=== PATIENT | male | born 1945 | race Caucasian/White ===

== ENCOUNTER 2016-11-13 20:11 | Inpatient (IN) | payer OTHER, MEDICARE ==
[~2016-11-13] VITALS: Ht 167.6 cm; Wt 85.5 kg
[~2016-11-13 20:11] MED LIST: ACCUNEB 3 ML3 M1 INH; ALBUTEROL 3 ML3 ML INH; ALLOPURINOL100 M1 PO; APIX5T PO; ASPIR 8181 MG PO; AUGMENTIN 500M500 MG PO; AUGMENTIN 875875 MG PO; AZMACORT INH; COLCHICINE0.6 M2 PO; COLCHICINE0.6 M3 PO; COLCHICINE0.6 MG PO; COUMADIN5 M2 PO; ELIQUIS2.5 MG PO; FOLIC ACID1 M1 PO; HUMALOG100 U/ML SC; HUMALOG100 UNIT/2 SC; HYDRALAZINE10 MG PO; IMDUR60 MG PO; ISOSORBIDE MONO60 M1 PO; KEFLEX750 MG PO; LANTUS100 U/ML SC; LASIX40 MG PO; LEVEMIR 10100 UNITS/ SC; LOPRESSOR50 M1 PO; LOPRESSOR50 MG PO; MASON NATURAL2000 IU PO; MASON NATURAL325 MG PO; NOVAPLUS V0.09 MG/Ac INH; NOVOLOG100 U/ML SC; OMEPRAZOLE D/R20 MG PO; PREDNISONE 10MG10 M1 PO; PREDNISONE 10MG10 MG PO; PREDNISONE 20MG20 MG PO; PREDNISONE 5 MG5 MG PO; PREDNISONE20 M1 PO; PROVENTIL0.09 MG/A1 INH; ROCALTROL0.25 MCG PO; SIMVASTATIN20 MG PO; SODIUM POL15 GM/60 M PO; SYMBICORT 160/41 PUF INH; VIBRAMYCIN 100100 MG PO; ZAROXOLYN2.5 MG PO; ZITHROMAX Z-PA250 M1 PO; [UNRECOGNIZED DRUG - OTHER] INH
--- NOTE | 2016-11-13 20:20 | ED GI/GU/ABDOMINAL COMPLAINT ---
History of Present Illness General Chief Complaint: General Adult Stated Complaint: BLEEDING FROM RECTUM Source: patient Exam Limitations: no limitations Vital Signs & Intake/Output Vital Signs & Intake/Output Vital Signs Date Time Temp Pulse Resp B/P Pulse O2 O2 Flow FiO2 Ox Delivery Rate 11/13 2348 66 147/72 11/13 2313 98.6 59 18 194/77 98 Room Air 11/13 2248 60 18 169/73 96 Room Air 11/13 2205 67 149/67 11/130 163/73 11/13 2012 97.3 78 18 175/72 98 Room Air Allergies Coded Allergies: NO KNOWN ALLERGIES (10/04/16) Reconcile Medications Albuterol Sulfate (Proventil Hfa) 90 MCG HFA.AER.AD 1-2 PUFF INH Q4-6H PRN SHORTNESS OF BREATH (Reported) Albuterol Sulfate (Accuneb) 0.63 MG/3 ML VIAL.NEB 1 AMP INH TID PRN COPD ( Reported) Allopurinol 100 MG TABLET 1 TAB PO DAILY GOUT Aspirin (Ecotrin) 81 MG TABLET.DR 1 TAB PO DAILY HEART (Reported) Budesonide/Formoterol Fumara (Symbicort 160-4.5 Mcg Inhaler) 160 MCG/4.5 MCG PUF 2 PUF INH BID COPD (Reported) Colchicine 0.6 MG TABLET 1 TAB PO DAILY GOUT (Reported) Ferrous Sulfate 325 MG (65 MG IRON) TABLET 1 TAB PO BID SUPPLEMENT (Reported) Folic Acid 1 MG TABLET 1 MG PO DAILY SUPPLEMENT (Reported) Furosemide (Lasix) 40 MG TABLET 2 TAB PO DAILY HEART (Reported) HYDRALAZINE HCL (Hydralazine) 10 MG TABLET 1 TAB PO BID BP (Reported) Insulin Glargine, Recombinan (Lantus) 100 U/ML SALIMA 12 UNIT SC DAILY DIABETES (Reported) Insulin Lispro (Humalog) 100 UNIT/ML VIAL diabetes (Reported) Blood sugar Insulin dose < 80mg/dl No dose 80-150 mg/dl No dose 151-200mg/dl One unit 201-250mg/dl Two units 251-300mg/dl Three units 301-350mg/dl Four units 351-400mg/dl Six units Above 400mg/dl Eight units and call . Isosorbide Mononitrate (Imdur) [address] 1 TAB PO DAILY CAD (Reported) Metoprolol Tartrate (Lopressor) 50 MG TAB 1 TAB PO BID HEART (Reported) Omeprazole 20 MG CAPSULE.DR 1 CAP PO DAILY AC GI (Reported) Simvastatin (Zocor) 20 MG TAB 1 TAB PO 1700 CHOLESTEROL (Reported) Warfarin Sodium (Coumadin) 5 MG TABLET 1 TAB PO DAILY BLOOD THINNER (Reported ) please dose Coumadin as per INR. Triage Nurses Notes Reviewed? yes Onset: Gradual Duration: hour(s): Timing: recent history Quality/Severity: cramping Location: generalized abdomen Radiation: no radiation Activities at Onset: none Prior Abdominal Problems: none Modifying Factors: Worsens With: defecating. Associated Symptoms: gi bleed HPI: 71 yo gentleman h/o esrd on hemodialysis, on coumadin, presents with dark blood per rectum with clots. He notes that, "I feel the blood coming out of my back end." He is not dizzy. He does not have abdominal pain, chest pain, shortness of breath. He is otherwise well. Past History Travel History Traveled to [place] past 21 day No Medical History Any Pertinent Medical History? see below for history Neurological: NONE Cardiovascular: AFIB (paroxysmal), CAD, hypertension, hyperlipidemia, systolic CHF, PACEMAKER/DEFIBRILLATOR Respiratory: COPD, obstructive sleep apnea (not using CPAP), NON COMPLIANT W/ CPAP Gastrointestinal: GERD Hepatic: NONE Renal: chronic kidney disease Musculoskeletal: gout, CELLULITIS Psychiatric: NONE Endocrine: diabetes Blood Disorders: NONE Cancer(s): NONE LIMNOLOGIST/Reproductive: NONE History of MRSA: Yes History of VRE: No History of CDIFF: No Pneumonia Vaccine: 11/06/10 Surgical History Surgical History: PACEMAKER Psychosocial History Who do you live with Patient/Self Services at Home None What is your primary language Yakut Tobacco Use: Quit >30 days ago ETOH Use: denies use Illicit Drug Use: denies illicit drug use Family History Family History, If Any: MOTHER (Lung cancer). Hx Contributory? No Review of Systems Review of Systems Constitutional: Reports: no symptoms. EENTM: Reports: no symptoms. Respiratory: Reports: no symptoms. Cardiovascular: Reports: no symptoms. GI: Reports: no symptoms. Genitourinary: Reports: no symptoms. Musculoskeletal: Reports: no symptoms. Skin: Reports: no symptoms. Neurological/Psychological: Reports: no symptoms. Hematologic/Endocrine: Reports: no symptoms. Immunologic/Allergic: Reports: no symptoms. All Other Systems: Reviewed and Negative Physical Exam Physical Exam General Appearance: well developed/nourished, mild distress Head: atraumatic, normal appearance Eyes: Bilateral: normal appearance. Ears, Nose, Throat, Mouth: hearing grossly normal Neck: normal inspection, supple Respiratory: normal breath sounds Cardiovascular: regular rate/rhythm Gastrointestinal: normal bowel sounds, soft, non-tender, no organomegaly Rectal: juan diego clots from rectum Back: normal inspection Extremities: normal range of motion Neurologic/Psych: no motor/sensory deficits, awake, alert, oriented x 3 Skin: intact, normal color, warm/dry Core Measures ACS in differential dx? No Severe Sepsis Present: No Septic Shock Present: No Progress Differential Diagnosis: lower vs upper gi bleed Plan of Care: Orders Procedure Date/time Status Nothing by Mouth 11/14 B Active Pathway - chart 11/13 2335 Active Pathway - chart 11/13 2334 Active House Staff 11/13 2334 Active Patient Data 11/13 2334 Active Code Status 11/13 2334 Active Add-on Test (ER Only) 11/13 225 Active Patient Data 11/13 224 Active Saline Lock 11/13 2237 Active Misc Message 11/13 2237 Active ED Holding Orders 11/13 2237 Active Admit to inpatient 11/13 2237 Active Vital Signs 11/13 2237 Active Code Status 11/13 2237 Complete TROPONIN LEVEL 11/13 2122 Complete MAGNESIUM 11/13 2122 Complete Intake & Output 11/13 2110 Active EKG 11/13 2019 Active PARTIAL THROMBOPLASTIN TIME 11/13 2018 Complete PROTHROMBIN TIME 11/13 2018 Complete COMPREHENSIVE METABOLIC PANEL 11/13 2018 Complete CBC WITHOUT DIFFERENTIAL 11/13 2018 Complete TYPE & SCREEN (NOT X-MATCH) 11/13 2018 Complete VTE Mechanical Prophylaxis 11/13 UNK Active Current Medications Sig/Johnna Start time Last Medication Dose Stop Time Status Admin Oxycodone/ 1 TAB Q6P PRN 11/13 2344 UNVr Acetaminophen (Percocet) Oxycodone/ 2 TAB Q6P PRN 11/13 2344 UNVr Acetaminophen (Percocet) Laboratory Tests 11/13/162124: PT 23.9 H, INR 2.29 H, APTT 42 H 11/13/162122: Anion Gap 18 H, Estimated GFR 12 L, BUN/Creatinine Ratio 10.4, Glucose 108 H, Calcium 8.5, Magnesium 1.5 L, Total Bilirubin 0.3, AST 19, ALT 17 L, Alkaline Phosphatase 104, Troponin I 0.04, Total Protein 6.2 L, Albumin 3.6, Globulin 2.6, Albumin/Globulin Ratio 1.4 11/13/162039: CBC w Diff NO MAN DIFF REQ, RBC 4.33 L, MCV 83.2, MCH 26.6 L, RDW 23.5 H, MPV 9.0, Gran % 71.1, Lymphocytes % 15.6 L, Monocytes % 9.2, Eosinophils % 3.9, Basophils % 0.2, Absolute Granulocytes 6.5, Absolute Lymphocytes 1.4, Absolute Monocytes 0.8 H, Absolute Eosinophils 0.4, Absolute Basophils 0, PUBS MCHC 32.0 L Initial ED EKG: normal axis, normal intervals, normal p-waves, normal QRS complex, normal sinus rhythm Departure Departure Disposition: HOME OR SELF CARE Condition: Stable Clinical Impression Primary Impression: GI bleed Referrals: MARY CRUZ MD Departure Forms: Customer Survey General Discharge Information Comments 11/13/16, 22:17... discussed with dr. greco who affirms plan to admit, monitor, hold coumadin, consider prep if he continues to bleed. Admission Note Spoke With: ANTOINETTE BETTENCOURT [facility] Documentation of Exam: Documentation of any treatments & extenuating circumstances including Concerns Regarding Discharge (functional status, medication knowledge or non-compliance, living conditions, etc.) that warrant an admission rather than observation: pt with gi bleed... active bleeding.. .will hold coumadin, consider endoscopy if bleeding continues throughout the night and/or hct drop. Critical Care Note Critical Care Note Critical Care Time: 30-74 min Comments: pt with active bleeding... discussed with family at great length... pt to go to icu for close monitoring, consider scope in AM.
--- NOTE | 2016-11-13 20:23 | NUR ---
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 PT DENIES ADB PAIN, DENIES N/V,DENIES CHEST PAIN,SOB. VSS. PT STARTED ON DIALYSIS A MONTH AGO. PT DENIES HX OF GI BLEED. HX OF CHF,HTN,AFIB,CHR KIDNEY, DIABETES.
--- NOTE | 2016-11-13 20:25 | NUR ---
APPRECIATE TRIAGE NOTE. PT AMBULATORY TO ROOM 10. CHANGING INTO GOWN.
--- NOTE | 2016-11-13 20:35 | NUR ---
DR. MOON TO BEDSIDE FOR EVAL. EKG AND BLOODWORK IN PROGRESS.
[2016-11-13 20:51] LABS: ABSOLUTE BASOPHIL COUNT 0 /CUMM (0.0-0.2); ABSOLUTE EOSINOPHIL COUNT 0.4 /CUMM (0.0-0.7); ABSOLUTE GRANULOCYTE CT 6.5 /CUMM (1.4-6.5); ABSOLUTE LYMPH COUNT 1.4 /CUMM (1.2-3.4); ABSOLUTE MONOCYTE COUNT 0.8 /CUMM (0.10-0.60); BASOPHIL % 0.2 % (0.0-2.0); EOSINOPHIL % 3.9 % (0-5); GRANULOCYTE % 71.1 % (42.2-75.2); MEAN CORPUSCULAR HGB 26.6 PG (27.0-31.0); MEAN CORPUSCULAR VOLUME 83.2 FL (80.0-94.0); PLATELET COUNT 167 /CUMM (130-400); RBC DISTRIBUTION WIDTH 23.5 % (11.5-14.5); RED BLOOD CELL CT 4.33 /CUMM (4.70-6.10); WHITE BLOOD CELL COUNT 9.2 /CUMM (4.8-10.8)
--- NOTE | 2016-11-13 21:10 | NUR ---
PER LAB SST, BLUE, AND PINK HEMOLYZED.
[2016-11-13 21:48] LABS: PT 23.9 SEC (9.4-12.5); PTT 42 SEC (25-37)
--- NOTE | 2016-11-13 22:58 | NUR ---
PT BED ASSIGNMENT 110
--- NOTE | 2016-11-13 23:08 | History & Physical ---
[address],[facility] 11/13/16 6838: General Information and HPI MD Statement: I have seen and personally examined DUNCAN ORELLANA and documented this H&P. The patient is a 71 year old M who presented with a patient stated chief complaint of blood per rectum. Source of Information: patient Exam Limitations: no limitations History of Present Illness: This is a pleasant 71 year old male with PMH of HTN, HLD, systolic heart failure, COPD not on home O2, FREDY not on CPAP, atrial fibrillation on coumadin, pulmonary HTN, pacemaker, GERD, gout, cellulitis and diabetes mellitus, ESRD on dialysis(MWF), presents with chief complaints of bright red blood per rectum. Pt reports that today around 7:30pm he noticed bright red blood per rectum after having a bowel movement. He described the bowel movement having "clots". Pt reports having a second episode thiry minutes later. He does deny pain during both episodes. While at the ED, patient had about 4 additional episodes of rectal bleeding.Patient reports no previous history of rectal bleeding . Last Coumadin dose was yesterday. Of note,patient has never had a colonoscopy and was suppose to follow up with Dr Pederson for possible colonoscopy for evaluating of his anemia. Pt denies abdominal pain, constipation/diarrhea, hematemesis, melena, history of hemorrhoids, fever, chest pain, palpitation, shortness of breath, or dizziness. . Allergies/Medications Allergies: Coded Allergies: NO KNOWN ALLERGIES (10/04/16) Home Med list Albuterol Sulfate (Proventil Hfa) 90 MCG HFA.AER.AD 1-2 PUFF INH Q4-6H PRN SHORTNESS OF BREATH (Reported) Albuterol Sulfate (Accuneb) 0.63 MG/3 ML VIAL.NEB 1 AMP INH TID PRN COPD ( Reported) Allopurinol 100 MG TABLET 1 TAB PO DAILY GOUT Aspirin (Ecotrin) 81 MG TABLET.DR 1 TAB PO DAILY HEART (Reported) Colchicine 0.6 MG TABLET 1 TAB PO DAILY GOUT (Reported) Ferrous Sulfate 325 MG (65 MG IRON) TABLET 1 TAB PO BID SUPPLEMENT (Reported) Folic Acid 1 MG TABLET 1 MG PO DAILY SUPPLEMENT (Reported) Furosemide (Lasix) 40 MG TABLET 2 TAB PO DAILY HEART (Reported) HYDRALAZINE HCL (Hydralazine) 10 MG TABLET 1 TAB PO BID BP (Reported) Insulin Glargine, Recombinan (Lantus) 100 U/ML SALIMA 12 UNIT SC DAILY DIABETES (Reported) Insulin Lispro (Humalog) 100 UNIT/ML VIAL diabetes (Reported) Blood sugar Insulin dose < 80mg/dl No dose 80-150 mg/dl No dose 151-200mg/dl One unit 201-250mg/dl Two units 251-300mg/dl Three units 301-350mg/dl Four units 351-400mg/dl Six units Above 400mg/dl Eight units and call MD. Isosorbide Mononitrate (Imdur) [address] 1 TAB PO DAILY CAD (Reported) Metoprolol Tartrate (Lopressor) 50 MG TAB 1 TAB PO BID HEART (Reported) Omeprazole 20 MG CAPSULE.DR 1 CAP PO DAILY AC GI (Reported) Simvastatin (Zocor) 20 MG TAB 1 TAB PO 1700 CHOLESTEROL (Reported) Warfarin Sodium (Coumadin) 5 MG TABLET 1 TAB PO DAILY BLOOD THINNER (Reported ) please dose Coumadin as per INR. 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 Psychosocial History Services at Home: None ETOH Use: denies use Illicit Drug Use: denies illicit drug use Functional Ability ADLs Independent: dressing, eating, toileting, bathing. Ambulation: independent IADLs Independent: shopping, housework, finances, food prep, telephone, transportation , medication admin. Review of Systems Review of Systems Constitutional: Denies: chills, diaphoresis, fever, weakness. EENTM: Denies: double vision, visual changes, eye pain. Cardiovascular: Denies: chest pain, edema, orthopena, palpitations. Respiratory: Denies: see HPI, cough, hemoptysis, orthopnea. GI: Reports: bloody stool. Denies: bloating, constipation, melena. Genitourinary: Denies: dysuria, frequency, hematuria, hesitation. Musculoskeletal: Denies: joint pain, joint swelling, muscle pain. Skin: Denies: change in hair/nails, jaundice, lesions. Neurological/Psychological: Denies: confusion, depressed, dementia. Hematologic/Endocrine: Reports: bleeding. Immunologic/Allergic: Reports: no symptoms. All Other Systems: Reviewed and Negative Exam & Diagnostic Data Last 24 Hrs of Vital Signs/I&O Vital Signs Date Time Temp Pulse Resp B/P Pulse O2 O2 Flow FiO2 Ox Delivery Rate 11/15 0000 98 Nasal 2.0L Cannula 11/15 0000 98.1 66 20 110/50 98 Nasal 2.0L Cannula 11/14 2000 100 Nasal 2.0L Cannula 11/14 1818 Room Air Room Air 11/14 1600 91 Room Air 11/14 1600 96.6 61 22 164/60 96 Room Air 11/14 1200 96 Room Air 11/14 0800 97.7 60 20 146/68 95 Room Air 11/14 0800 97 Room Air 11/14 0400 96 Room Air 11/14 0106 96 Room Air Intake & Output 11/15 0800 11/15 0000 11/14 1600 Intake Total 100 500 Output Total 1050 Balance -950 500 Intake, Blood 500 Product Intake, Oral 100 Number 2 14 Bowel Movements Output, 1000 Dialysate Output, Urine 50 Patient 85.502 kg 86.239 kg Weight Physical Exam General Appearance Alert, Oriented X3, Cooperative Skin No Rashes, No Breakdown, No Significant Lesion HEENT Atraumatic, PERRLA, EOMI, Mucous Membr. moist/pink Neck Supple, No JVD, No thryomegaly, +2 Carotid Pulse wo Bruit, No LAD Lymphatic Cervical nl Cardiovascular Regular Rate, Normal S1, Normal S2, No Murmurs, Gallops Lungs Clear to Auscultation, Normal Air Movement Abdomen Normal Bowel Sounds, Soft, No Tenderness Neurological Normal Gait, Normal Speech, Strength at 5/5 X4 Ext, Normal Tone, Sensation Intact Extremities No Clubbing, No Cyanosis, No Edema, Normal Pulses, No Tenderness/ Swelling Vascular Normal Pulses, Pulses Symmetrical Last 24 Hrs of Labs/Satnam: Laboratory Tests 11/14/16 0434: Anion Gap 16, Estimated GFR 11 L, Glucose 161 H, Lactic Acid 0.9, Calcium 8.3 L, Phosphorus 5.5 H, Magnesium 1.9, Total Bilirubin 0.2, AST 17, ALT 23, Albumin 3.0 L, PT 25.2 H, INR 2.42 H, CBC w Diff NO MAN DIFF REQ, RBC 3.67 L , MCV 84.7, MCH 26.4 L, RDW 23.0 H, MPV 9.0, Gran % 71.6, Lymphocytes % 15.2 L, Monocytes % 8.6, Eosinophils % 3.8, Basophils % 0.8, Absolute Granulocytes 6.0, Absolute Lymphocytes 1.3, Absolute Monocytes 0.7 H, Absolute Eosinophils 0.3, Absolute Basophils 0.1, PUBS MCHC 31.1 L 11/14/16 0128: CBC w Diff NO MAN DIFF REQ, RBC 4.05 L, MCV 83.4, MCH 26.7 L, RDW 22.4 H, MPV 9.5, Gran % 70.9, Lymphocytes % 14.7 L, Monocytes % 9.6 H, Eosinophils % 3.8, Basophils % 1.0, Absolute Granulocytes 6.2, Absolute Lymphocytes 1.3, Absolute Monocytes 0.8 H, Absolute Eosinophils 0.3, Absolute Basophils 0.1, PUBS MCHC 32.0 L Diagnostic Data EKG Results No acute ischemic changes Assessment/Plan Assessment: This is a 71-year-old male with a past medical history A. fib and on Coumadin presents with episodes of painless overt lower GI bleeding. Patient presentation is consistent with lower GI bleed. Possible causes include diverticular bleeding in the setting of anticoagulation use, anorectal condition such as hemorrhoids, atrial venous malformation, rapid transit upper GI bleed. Most lower GI bleed up to 80% a transient with no further medical intervention needed. Patient INR was 2.3, and patient had not taken his Coumadin dose today. Reversal of INR maybe needed if repeat INR in the morning is elevated. However , reversal complicated by the fact that patient is on renal dialysis and if FFP is needed, will need to be done before dialysis. Plan * Admit to ICU * CBC every 8h and will transfuse if levels below 8 (patient does have extensive cardiac history) * Keep nothing by mouth in anticipation of colonoscopy * Will start patient on bowel prep * Large-bore IV access * Will await further GI recommendation (appreciated) * Will hold Coumadin dose today * We'll hold antiplatelet and await GI and cardiology accommodation on when to restart * Will obtain Cardiac consult * Dialysis schedule for Monday As Ranked By This Provider Problem List: 1. GI bleed Core Measures/Miscellaneous Acute Coronary Syndrome ACS Diagnosis: No Cerebrovascular Accident CVA/TIA Diagnosis: No Congestive Heart Failure CHF Diagnosis: No Venous Thromboembolism VTE Risk Factors: Age > 40 VTE Prophylaxis Ordered Inpt: Mech/Pharm Contraindicate No Mech VTE prophylaxis d/t: LE Edema No VTE Pharm Prophylaxis d/t: Active bleeding VTE Diagnosis: No VTE Type: NONE VTE Confirmed by (Test): NONE Severe Sepsis Severe Sepsis Present: No Septic Shock Septic Shock Present: No Miscellaneous Documentation Attending Case Discussed With: ANTOINETTE BETTENCOURT MDKim Primary Care Physician: YSABEL DE LA TORRE MD 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 Level of Patient Care: Critical Care (CRI) MAEVE BETTENCOURT MD 11/13/16 2346: Attending MD Review Statement Attending Statement Attending MD Statement: examined this patient, discuss w/resident/PA/CRM MARKETING EXECUTIVE, agreed w/resident/PA/CRM MARKETING EXECUTIVE, discussed with family Attending Assessment/Plan: 71 yo morbidly obese M with h/o CAD, chronic systolic CHF, FREDY not on CPAP, HTN, COPD, severe pulmonary hypertension, MGUS (IgG kappa), T2DM, gout, ESRD on dialysis (M/W/F) via [facility] since 1 month, chronic anemia, Pafib on coumadin, s /p PPM pw bright red blood per rectum. Patient reports he had a normal BM around 7 pm, followed an hour later by a feeling of having another BM, but this time it was just blood (dark and bright red blood with clots). He had a few more episodes at home and about 5 such in the ER. Small amounts, painless bleeding. He has never had a colonoscopy, although he was seen by Dr. Pederson during his admission in Oct 2016 and advised outpatient follow up which he did not go for. He denies previous similar episodes of bleeding. No h/o hemorrhoids. He denies lightheadedness, chest pain, palpitations, dyspnea, nausea, vomiting or abdominal pain. VSS. Orthostats: Lying 163/73 --> Sitting 149/67 --> Standing 147/72. Exam: AAO, in mild distress, Chest b/l clear, Ashcath site on right chest C/D/I, Heart S1S2 regular, systolic murmur+, Abd soft, NT. Extremities: no pedal edema, chronic venous stasis changes. Labs: H/H: 11.5/36 --> 10.8/33.8, AG 18, BUN 50, creat 4.8, Mg 1.5, trop neg, INR 2.29. EKG: Paced. Echo (2016): EF 50-55%, moderate aortic stenosis, pulmonary hypertension. 1. Lower GI bleed with orthostatic hypotension in the setting of coumadin use. Possible etiologies are diverticular bleed vs. ischemic colitis vs. hemorrhoidal bleed. ICU admit, vitals Q1, hold coumadin and aspirin, type and screen, keep Hb > 8.0, CBC Q4 hourly, NPO, gentle fluids (avoid overload as dialysis patient). Patient had 2 more small episodes of bleeding in the ER. As per d/w Dr. Pederson, will initiate Golytely prep. No need for INR reversal, will let it drift down. No FFP or vit K at this point unless hemodynamically unstable, as patient is on dialysis and h/o systolic CHF. Recheck INR in AM. Serial EKG and troponin. Cardio consult (Dr. Crandall). Recheck orthostats in AM. 2. ESRD on dialysis. Nephro consult to plan for dialysis in AM. 3. h/o systolic CHF and HTN. Hold lasix, hydralazine, imdur and metoprolol for now. Restart once hemodynamically stable and not bleeding. 4. Hypomagnesemia. Replete. DVT ppx Alps. Full code. TTS > 45 mins SANDRO CALDERON 11/14/16 1052: Resident Review Statement Resident Statement: examined this patient, discussed with financial analyst intern, agreed with financial analyst intern, discussed with family, reviewed EMR data (avail), discussed with nursing , reviewed images Other Findings: Mr Orellana very pleasant 71-year-old gentleman with a PMH of A. fib on Coumadin , HTN, HLD, COPD, FREDY not on nocturnal CPAP, GERD, DM, ESRD recently started on HD (MWF) who presents with complaints of bright red blood per rectum that started earlier today followed by 45 episodes of juan diego red blood per rectum. He denied any dizziness, palpitations, fevers, chills, abdominal pain, cramping sensation or pain with defecation. VS on admission: BP 175/72, HR 70, RR 18, T 97.398% on RA PE: AAO 3, no acute distress. Normal S1/S2, irregular rhythm. Lungs CTA BL. Normal bowel sounds with no tenderness to palpation. 1+ pitting edema bilateral lower extremities. Pertinent labs: H&H 11.5/36.0, platelets 167, sodium 144, potassium 4.0, BUN/Cr CR 50/4.8 INR: 2.29 Last echo (10/05/2016) LVEF 50-55%, hypokinetic inferior wall. JUJU 1.1 cm. RV systolic pressure 52 mmHg Problem list: 1. Lower GI bleed 2. A. fib on Coumadin 3. ESRD on HD 4. Diabetes 5. Hypomagnesemia Plan: * Admit to intensive care unit for continuous cardiac monitoring, blood pressure management * Type and screen, repeat INR in the a.m. Patient may require INR reversal with FFP if hemodynamically is unstable * GI already notified (Dr. Pederson). Recommendations: With GoLPRINCESS with plan for colonoscopy in the a.m. * ESRD with scheduled HD on MWF. Nephrology on board. We'll coordinate for scheduled dialysis time around colonoscopy schedule * Magnesium 1.5. We'll replete via IV * Diet: NPO * TRCs for history of COPD * DVT prophylaxis: ALPs * CODE STATUS: Full code A.m. team: * Hydralazine, Imdur, Lopressor, ASA and warfarin on hold in the setting of lower GI bleed. Consult cardiology in the a.m. and follow up with GI recommendations and when to restart antihypertensive/anticoagulation * Restart sliding scale once patient is tolerating by mouth diet * Follow-up Lactic acid
--- NOTE | 2016-11-13 23:10 | NUR ---
DR. SOSA TO BEDSIDE FOR EVAL.
--- NOTE | 2016-11-13 23:22 | NUR ---
ASSUMED CARE OF PT PER RN SHAYNA. HOUSE STAFF IN FOR EVAL
--- NOTE | 2016-11-13 23:49 | Admission Certification ---
Admission Certification Certification Statement - As attending physician, I certify that at the time of - admission, based on clinical presentation, severity of - symptoms, need for further diagnostic testing and - therapeutic interventions, and risk of adverse outcomes - without in-hospital treatment, in my clinical assessment, - this patient requires an acute hospital stay for a minimum - of two nights or longer. I have also considered psychsocial - factors such as support system, advanced age, financial - issues, cognitive issues, and failed out-patient treatments, - past re-admission history, safety of patient, and lack of - compliance as applicable. Specific rationale supporting this admission is: Lower GI bleed in this elderly patient on coumadin with orthostatic hypotension.
--- NOTE | 2016-11-14 00:11 | NUR ---
REPORT GIVEN TO ICU NURSE.
[2016-11-14 00:30] VITALS: BP 140/48
--- NOTE | 2016-11-14 00:30 | NUR ---
PATIENT TO ICU.PLACED IN 101 DUE TO DIALYSIS IN AM. PATIENT HAS SALMA CATH R CHEST WALL.SAVING L ARM FOR SHUNT. NO IVS OR BLOODWORK FROM THIS ARM.ALERT AND ORIENTED. LCW PACER. MONITOR PACING RHYTHM AT RATE OF 60. UP=405/48.PATIENT OOB TO BEDSIDE COMMODE. HAD BLOODY LIQUID WITH DARK CLOTS.
--- NOTE | 2016-11-14 01:30 | NUR ---
PATIENT GIVEN JOHANNA WITH INSTRUCTIONS TO TAKE A CUPFUL EVERY 20 MINS. TAKING PO WELL.
[2016-11-14 01:50] LABS: ABSOLUTE BASOPHIL COUNT 0.1 /CUMM (0.0-0.2); ABSOLUTE EOSINOPHIL COUNT 0.3 /CUMM (0.0-0.7); ABSOLUTE GRANULOCYTE CT 6.2 /CUMM (1.4-6.5); ABSOLUTE LYMPH COUNT 1.3 /CUMM (1.2-3.4); ABSOLUTE MONOCYTE COUNT 0.8 /CUMM (0.10-0.60); EOSINOPHIL % 3.8 % (0-5); GRANULOCYTE % 70.9 % (42.2-75.2); HEMATOCRIT 33.8 % (42-52); MEAN CORPUSCULAR HGB 26.7 PG (27.0-31.0); MEAN CORPUSCULAR VOLUME 83.4 FL (80.0-94.0); MEAN PLATELET VOLUME 9.5 FL (7.4-10.4); PLATELET COUNT 130 /CUMM (130-400); RBC DISTRIBUTION WIDTH 22.4 % (11.5-14.5); RED BLOOD CELL CT 4.05 /CUMM (4.70-6.10); WHITE BLOOD CELL COUNT 8.8 /CUMM (4.8-10.8)
[2016-11-14 04:55] LABS: ABSOLUTE BASOPHIL COUNT 0.1 /CUMM (0.0-0.2); ABSOLUTE EOSINOPHIL COUNT 0.3 /CUMM (0.0-0.7); ABSOLUTE LYMPH COUNT 1.3 /CUMM (1.2-3.4); ABSOLUTE MONOCYTE COUNT 0.7 /CUMM (0.10-0.60); BASOPHIL % 0.8 % (0.0-2.0); EOSINOPHIL % 3.8 % (0-5); GRANULOCYTE % 71.6 % (42.2-75.2); HEMATOCRIT 31.1 % (42-52); MEAN CORPUSCULAR HGB 26.4 PG (27.0-31.0); MEAN CORPUSCULAR HGB CONC 31.1 G/DL (33.0-37.0); MEAN CORPUSCULAR VOLUME 84.7 FL (80.0-94.0); PLATELET COUNT 118 /CUMM (130-400); RED BLOOD CELL CT 3.67 /CUMM (4.70-6.10); WHITE BLOOD CELL COUNT 8.4 /CUMM (4.8-10.8)
[2016-11-14 04:59] LABS: PT 25.2 SEC (9.4-12.5)
[2016-11-14 08:00] VITALS: BP 146/68
--- NOTE | 2016-11-14 08:09 | Cons- CRCU ---
ANUPAM JENKINS 11/14/16 0745: General Information and HPI Consulting Request Date of Consult: 11/14/16 Requested By: Dr. Estes Reason for Consult: critical care Source of Information: patient, old records Exam Limitations: no limitations History of Present Illness: 71 year old obese Man with h/o CAD, chronic systolic CHF goes to CHF clinic every 1-2 weeks, FREDY not on CPAP, HTN, COPD, severe pulmonary hypertension, MGUS (IgG kappa), Type 2 DM, gout, ESRD on dialysis (M/W/F) via [facility] since 1 month , chronic anemia, paroxysmal A.fib on coumadin, s/p PPM presented with bright red blood per rectum. He had couple of episodes of bright red blood in stool at home. He denies any nausea, vomiting, abdominal pain, dizziness or lightheadedness, palpitations, chest pain or discomfort, shortness of breath. It has been happening to him for first time. He never had colonoscopy in past. According to patient for A. fib he was an Eliquis before but because of frequent nosebleeds he was put on Coumadin 2.5 mg daily. He has been taking Coumadin for less than a year. He lives by himself. Very independent person. Former smoker. Quit in 2004. Used to smoke 1-2 packs per day. Started at age of 12. Denies drinking alcohol or use of recreational drugs. No family history of colon cancer. Currently he is nothing by mouth. Denies any complaints. He is drinking GoLYTELY for bowel prep. Still having bloody bowel movements with clots. Allergies/Medications Allergies: Coded Allergies: NO KNOWN ALLERGIES (10/04/16) Home Med List: Albuterol Sulfate (Proventil Hfa) 90 MCG HFA.AER.AD 1-2 PUFF INH Q4-6H PRN SHORTNESS OF BREATH (Reported) Albuterol Sulfate (Accuneb) 0.63 MG/3 ML VIAL.NEB 1 AMP INH TID PRN COPD ( Reported) Allopurinol 100 MG TABLET 1 TAB PO DAILY GOUT Aspirin (Ecotrin) 81 MG TABLET.DR 1 TAB PO DAILY HEART (Reported) Colchicine 0.6 MG TABLET 1 TAB PO DAILY GOUT (Reported) Ferrous Sulfate 325 MG (65 MG IRON) TABLET 1 TAB PO BID SUPPLEMENT (Reported) Folic Acid 1 MG TABLET 1 MG PO DAILY SUPPLEMENT (Reported) Furosemide (Lasix) 40 MG TABLET 2 TAB PO DAILY HEART (Reported) HYDRALAZINE HCL (Hydralazine) 10 MG TABLET 1 TAB PO BID BP (Reported) Insulin Glargine, Recombinan (Lantus) 100 U/ML SALIMA 12 UNIT SC DAILY DIABETES (Reported) Insulin Lispro (Humalog) 100 UNIT/ML VIAL diabetes (Reported) Blood sugar Insulin dose < 80mg/dl No dose 80-150 mg/dl No dose 151-200mg/dl One unit 201-250mg/dl Two units 251-300mg/dl Three units 301-350mg/dl Four units 351-400mg/dl Six units Above 400mg/dl Eight units and call MD. Isosorbide Mononitrate (Imdur) [address] 1 TAB PO DAILY CAD (Reported) Metoprolol Tartrate (Lopressor) 50 MG TAB 1 TAB PO BID HEART (Reported) Omeprazole 20 MG CAPSULE.DR 1 CAP PO DAILY AC GI (Reported) Simvastatin (Zocor) 20 MG TAB 1 TAB PO 1700 CHOLESTEROL (Reported) Warfarin Sodium (Coumadin) 5 MG TABLET 1 TAB PO DAILY BLOOD THINNER (Reported ) please dose Coumadin as per INR. Current Medications: Current Medications Sig/Johnna Start time Last Medication Dose Route Stop Time Status Admin Atorvastatin Calcium 10 MG 1700 11/14 1700 AC PO Budesonide/ 2 PUF BID 11/14 1000 AC Formoterol Fumarate INH Ferrous Sulfate 325 MG BID 11/14 1000 AC PO Folic Acid 1 MG DAILY 11/14 1000 AC PO Ibuprofen 600 MG Q6P PRN 11/13 2345 DC PO Magnesium Sulfate 1 GM ONCE ONE 11/14 0015 DC 11/14 Dextrose/Water 100 ML IV 11/14 0414 0218 Oxycodone/ 1 TAB Q6P PRN 11/13 2345 AC Acetaminophen PO Oxycodone/ 2 TAB Q6P PRN 11/13 2345 AC Acetaminophen PO Polyethylene Glycol 1 GAL ONCE ONE 11/13 2345 DC 11/14 PO 11/13 2346 0054 Review of Systems Review of Systems Constitutional: Reports: see HPI. 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 Psychosocial History Services at Home: None ETOH Use: denies use Illicit Drug Use: denies illicit drug use Functional Ability ADLs Independent: dressing, eating, toileting, bathing. Ambulation: independent IADLs Independent: shopping, housework, finances, food prep, telephone, transportation , medication admin. Exam & Diagnostic Data Last 24 Hrs of Vital Signs/I&O Vital Signs Date Time Temp Pulse Resp B/P Pulse O2 O2 Flow FiO2 Ox Delivery Rate 11/14 0106 96 Room Air 11/13 2348 66 147/72 11/13 2313 98.6 59 18 194/77 98 Room Air 11/13 2248 60 18 169/73 96 Room Air 11/13 2205 67 149/67 11/13 2200 163/73 11/13 2012 97.3 78 18 175/72 98 Room Air Intake & Output 11/14 1600 11/14 0800 11/14 0000 Intake Total Output Total Balance Patient 188 lb 184 lb Weight Physical Exam General Appearance: well developed/nourished, no apparent distress, alert, awake , anxious, obese Head: atraumatic, normal appearance Eyes: Bilateral: normal appearance, PERRL, EOMI. Neck: supple Respiratory: normal breath sounds, wheezing Cardiovascular: regular rate/rhythm, murmur (systolic) Gastrointestinal: normal bowel sounds, soft, non-tender, obese Extremities: no edema, ch. venous stasis changes Skin: tiburcio cath on right chest Last 48 Hrs of Labs/Satnam: Laboratory Tests 11/14/16 0434: Anion Gap 16, Estimated GFR 11 L, Glucose 161 H, Lactic Acid 0.9, Calcium 8.3 L, Phosphorus 5.5 H, Magnesium 1.9, Total Bilirubin 0.2, AST 17, ALT 23, Albumin 3.0 L, PT 25.2 H, INR 2.42 H, CBC w Diff NO MAN DIFF REQ, RBC 3.67 L , MCV 84.7, MCH 26.4 L, RDW 23.0 H, MPV 9.0, Gran % 71.6, Lymphocytes % 15.2 L, Monocytes % 8.6, Eosinophils % 3.8, Basophils % 0.8, Absolute Granulocytes 6.0, Absolute Lymphocytes 1.3, Absolute Monocytes 0.7 H, Absolute Eosinophils 0.3, Absolute Basophils 0.1, PUBS MCHC 31.1 L 11/14/16 0128: CBC w Diff NO MAN DIFF REQ, RBC 4.05 L, MCV 83.4, MCH 26.7 L, RDW 22.4 H, MPV 9.5, Gran % 70.9, Lymphocytes % 14.7 L, Monocytes % 9.6 H, Eosinophils % 3.8, Basophils % 1.0, Absolute Granulocytes 6.2, Absolute Lymphocytes 1.3, Absolute Monocytes 0.8 H, Absolute Eosinophils 0.3, Absolute Basophils 0.1, PUBS MCHC 32.0 L 11/13/162124: PT 23.9 H, INR 2.29 H, APTT 42 H 11/13/162122: Anion Gap 18 H, Estimated GFR 12 L, BUN/Creatinine Ratio 10.4, Glucose 108 H, Calcium 8.5, Magnesium 1.5 L, Total Bilirubin 0.3, AST 19, ALT 17 L, Alkaline Phosphatase 104, Troponin I 0.04, Total Protein 6.2 L, Albumin 3.6, Globulin 2.6, Albumin/Globulin Ratio 1.4 11/13/162039: CBC w Diff NO MAN DIFF REQ, RBC 4.33 L, MCV 83.2, MCH 26.6 L, RDW 23.5 H, MPV 9.0, Gran % 71.1, Lymphocytes % 15.6 L, Monocytes % 9.2, Eosinophils % 3.9, Basophils % 0.2, Absolute Granulocytes 6.5, Absolute Lymphocytes 1.4, Absolute Monocytes 0.8 H, Absolute Eosinophils 0.4, Absolute Basophils 0, PUBS MCHC 32.0 L Assessment/Plan Impression/Plan: 71 year old obese Man with h/o CAD, chronic systolic CHF goes to CHF clinic every 1-2 weeks, FREDY not on CPAP, HTN, COPD, severe pulmonary hypertension, MGUS (IgG kappa), Type 2 DM, gout, ESRD on dialysis (M/W/F) via [facility] since 1 month , chronic anemia, paroxysmal A.fib on coumadin, s/p PPM presented with bright red blood per rectum. Vitals this morning: Temperature 98, pulse 62, blood pressure 152/55 and oxygen saturation 98% on room air. Pertinent labs today: H&H 9.7/31.1, platelet count 118, BUN 52, creatinine 5.0, INR 2.42 Recommendations: Problem list 1. Bright red blood per rectum. Hemodynamically stable with acceptable hemoglobin range. Differentials could be hemorrhoids vs angiodysplasia vs diverticular bleed vs colon cancer vs inflammatory bowel disease 2. History of paroxysmal A. fib on Coumadin. Coumadin has been held since admission. INR today 2.42 3. End-stage renal disease on dialysis. Creatinine today 5.0. Due for dialysis today 4. History of coronary artery disease, systolic CHF, hypertension 5. History of type 2 diabetes mellitus 6. History of COPD, severe pulmonary hypertension, FREDY not on CPAP 7. History of gout 8. History of chronic normocytic anemia PLAN * Monitor vitals closely * H&H today is 9.7/31.1. He did not get any blood transfusions so far. Will closely monitor CBC every 6-8 hours. Goal hemoglobin >8 * We'll continue holding Coumadin. Will give him 2 units of FFP's to bring INR down. * Will consult cardio, Dr. Crandall about holding Coumadin because of lower GI bleed * Patient is getting bowel preparation right now with GoLYTELY. Plan is for colonoscopy and possible upper GI endoscopy by Dr. Pederson in afternoon today * Patient is due for dialysis today. Will check with nephro about this. * Will check electrolytes daily and replete accordingly * Continue nothing by mouth for now * Will restart all his home medications after GI procedure * Alps for DVT prophylaxis * Full code Consult Acknowledgment - Thank you for your consult request. MIKE MUNIZ MD 11/14/16 1040: Assessment/Plan Other Findings/Comments: Mike Alvarez M.D. have examined this patient, reviewed available EMR data, personally reviewed images, discussed with resident/PA/AUTOMOTIVE SERVICE CONSULTANT, discussed management plan with housestaff and nursing staff, discussed managment plan all of healthcare providers, discussed management plan with patient and/or family, agreed with resident/PA/AUTOMOTIVE SERVICE CONSULTANT. The past history and parts of the chart have been autopopulated. Impression 71-year-old man with acute blood loss anemia secondary to GI bleed likely lower cause. Plan Endoscopy this a.m. Nephrology follow-up for dialysis Nothing by mouth Monitor CBC and coags Receiving FFP Alps for DVT prophylaxis Large-bore catheter TTS 40min Consult Acknowledgment - Thank you for your consult request.
--- NOTE | 2016-11-14 08:14 | Cons- Gastroenterology ---
General Information and HPI Consulting Request Date of Consult: 11/14/16 Requested By: RUT STREET,BJORN Reason for Consult: BRBPR, anemia Source of Information: patient Exam Limitations: no limitations History of Present Illness: Mr. Arias is a 71-year-old male with multiple medical problems including atrial fibrillation on anticoagulation and end-stage renal disease on hemodialysis who presented to [facility] last night with complaints of painless rectal bleeding. The patient had been in his usual state of health and then last night when he went to the bathroom he developed bright red blood per rectum. The bleeding was not associated with any abdominal pain and he has been without any black tarry stool. He also denies any abdominal pain with eating and he is without any history of heartburn or dysphagia. He denies having similar bleeding like this in the past. In the ER he was hemodynamically stable but was noted to have a small drop in his systolic blood pressure from 160 to 140 upon standing, but he did not have any accompanying lightheadedness, shortness of breath or complaints of chest pain. He was admitted to the ICU overnight and started on a bowel prep and his anticoagulation was held, but his INR was not reversed. He has continued to pass bright red blood with the bowel prep, but he has remained hemodynamically stable since admission. Allergies/Medications Allergies: Coded Allergies: NO KNOWN ALLERGIES (10/04/16) Home Med List: Albuterol Sulfate (Proventil Hfa) 90 MCG HFA.AER.AD 1-2 PUFF INH Q4-6H PRN SHORTNESS OF BREATH (Reported) Albuterol Sulfate (Accuneb) 0.63 MG/3 ML VIAL.NEB 1 AMP INH TID PRN COPD ( Reported) Allopurinol 100 MG TABLET 1 TAB PO DAILY GOUT Aspirin (Ecotrin) 81 MG TABLET.DR 1 TAB PO DAILY HEART (Reported) Colchicine 0.6 MG TABLET 1 TAB PO DAILY GOUT (Reported) Ferrous Sulfate 325 MG (65 MG IRON) TABLET 1 TAB PO BID SUPPLEMENT (Reported) Folic Acid 1 MG TABLET 1 MG PO DAILY SUPPLEMENT (Reported) Furosemide (Lasix) 40 MG TABLET 2 TAB PO DAILY HEART (Reported) HYDRALAZINE HCL (Hydralazine) 10 MG TABLET 1 TAB PO BID BP (Reported) Insulin Glargine, Recombinan (Lantus) 100 U/ML SALIMA 12 UNIT SC DAILY DIABETES (Reported) Insulin Lispro (Humalog) 100 UNIT/ML VIAL diabetes (Reported) Blood sugar Insulin dose < 80mg/dl No dose 80-150 mg/dl No dose 151-200mg/dl One unit 201-250mg/dl Two units 251-300mg/dl Three units 301-350mg/dl Four units 351-400mg/dl Six units Above 400mg/dl Eight units and call MD. Isosorbide Mononitrate (Imdur) [address] 1 TAB PO DAILY CAD (Reported) Metoprolol Tartrate (Lopressor) 50 MG TAB 1 TAB PO BID HEART (Reported) Omeprazole 20 MG CAPSULE.DR 1 CAP PO DAILY AC GI (Reported) Simvastatin (Zocor) 20 MG TAB 1 TAB PO 1700 CHOLESTEROL (Reported) Warfarin Sodium (Coumadin) 5 MG TABLET 1 TAB PO DAILY BLOOD THINNER (Reported ) please dose Coumadin as per INR. Current Medications: Current Medications Sig/Ojhnna Start time Last Medication Dose Route Stop Time Status Admin Atorvastatin Calcium 10 MG 1700 11/14 1700 AC PO Budesonide/ 2 PUF BID 11/14 1000 AC Formoterol Fumarate INH Ferrous Sulfate 325 MG BID 11/14 1000 AC PO Folic Acid 1 MG DAILY 11/14 1000 AC PO Ibuprofen 600 MG Q6P PRN 11/13 2345 DC PO Magnesium Sulfate 1 GM ONCE ONE 11/14 0015 DC 11/14 Dextrose/Water 100 ML IV 11/14 0414 0218 Oxycodone/ 1 TAB Q6P PRN 11/13 2345 AC Acetaminophen PO Oxycodone/ 2 TAB Q6P PRN 11/13 2345 AC Acetaminophen PO Polyethylene Glycol 1 GAL ONCE ONE 11/13 2345 DC 11/14 PO 11/13 2346 0054 Past History Travel History Traveled to [place] past 21 day No Medical History Neurological: NONE Cardiovascular: AFIB (paroxysmal), CAD, hypertension, hyperlipidemia, systolic CHF, PACEMAKER/DEFIBRILLATOR Respiratory: COPD, obstructive sleep apnea (not using CPAP), NON COMPLIANT W/ CPAP Gastrointestinal: GERD Hepatic: NONE Renal: chronic kidney disease Musculoskeletal: gout, CELLULITIS Psychiatric: NONE Endocrine: diabetes Blood Disorders: NONE Cancer(s): NONE 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 Psychosocial History Services at Home: None ETOH Use: denies use Illicit Drug Use: denies illicit drug use Functional Ability ADLs Independent: dressing, eating, toileting, bathing. Ambulation: independent IADLs Independent: shopping, housework, finances, food prep, telephone, transportation , medication admin. Review of Systems Review of Systems Constitutional: Denies: no symptoms. EENTM: Denies: no symptoms. Cardiovascular: Denies: no symptoms. Respiratory: Denies: no symptoms. GI: Reports: see HPI. Genitourinary: Denies: no symptoms. Musculoskeletal: Reports: joint pain. Denies: joint swelling. Skin: Denies: no symptoms. Neurological/Psychological: Denies: no symptoms. Hematologic/Endocrine: Denies: no symptoms. Immunologic/Allergic: Denies: no symptoms. All Other Systems: Reviewed and Negative Exam & Diagnostic Data Vital Signs and I&O Vital Signs Date Time Temp Pulse Resp B/P Pulse O2 O2 Flow FiO2 Ox Delivery Rate 11/14 0106 96 Room Air 11/13 2348 66 147/72 11/13 2313 98.6 59 18 194/77 98 Room Air 11/13 2248 60 18 169/73 96 Room Air 11/13 2205 67 149/67 11/13 2200 163/73 11/13 2012 97.3 78 18 175/72 98 Room Air Intake & Output 11/14 1600 11/14 0400 11/13 1600 11/13 0400 11/12 1600 11/12 0400 Intake Total Output Total Balance Patient 188 lb Weight Physical Exam General Appearance: well developed/nourished, no apparent distress, alert, obese Head: atraumatic, normal appearance Eyes: Bilateral: normal appearance. Ears, Nose, Throat: normal pharynx, normal ENT inspection Neck: normal inspection, supple Respiratory: normal breath sounds, chest non-tender, no respiratory distress Cardiovascular: irregularly irregular Gastrointestinal: normal bowel sounds, soft, non-tender Rectal: bloody stool with clots Back: normal inspection, normal range of motion Extremities: normal inspection, pedal edema Skin: intact, normal color, warm/dry Results Pertinent Lab Results: Laboratory Tests 11/14 11/14 0434 0128 Chemistry Sodium (137 - 145 mmol/L) 144 Potassium (3.5 - 5.1 mmol/L) 3.8 Chloride (98 - 107 mmol/L) 106 Carbon Dioxide (22 - 30 mmol/L) 22 Anion Gap (5 - 16) 16 BUN (9 - 20 mg/dL) 52 H Creatinine (0.7 - 1.2 mg/dL) 5.0 H Estimated GFR (>60 ml/min) 11 L Glucose (65 - 99 mg/dL) 161 H Lactic Acid (0.7 - 2.1 mmol/L) 0.9 Calcium (8.4 - 10.2 mg/dL) 8.3 L Phosphorus (2.5 - 4.5 mg/dL) 5.5 H Magnesium (1.6 - 2.3 mg/dL) 1.9 Total Bilirubin (0.2 - 1.3 mg/dL) 0.2 AST (17 - 59 U/L) 17 ALT (21 - 72 U/L) 23 Albumin (3.5 - 5.0 g/dL) 3.0 L Coagulation PT (9.4 - 12.5 SEC) 25.2 H INR (0.90 - 1.17) 2.42 H Hematology CBC w Diff NO MAN DIFF REQ NO MAN DIFF REQ WBC (4.8 - 10.8 /CUMM) 8.4 8.8 RBC (4.70 - 6.10 /CUMM) 3.67 L 4.05 L Hgb (14.0 - 18.0 G/DL) 9.7 L 10.8 L Hct (42 - 52 %) 31.1 L 33.8 L MCV (80.0 - 94.0 FL) 84.7 83.4 MCH (27.0 - 31.0 PG) 26.4 L 26.7 L RDW (11.5 - 14.5 %) 23.0 H 22.4 H Plt Count (130 - 400 /CUMM) 118 L 130 MPV (7.4 - 10.4 FL) 9.0 9.5 Gran % (42.2 - 75.2 %) 71.6 70.9 Lymphocytes % (20.5 - 51.1 %) 15.2 L 14.7 L Monocytes % (1.7 - 9.3 %) 8.6 9.6 H Eosinophils % (0 - 5 %) 3.8 3.8 Basophils % (0.0 - 2.0 %) 0.8 1.0 Absolute Granulocytes (1.4 - 6.5 /CUMM) 6.0 6.2 Absolute Lymphocytes (1.2 - 3.4 /CUMM) 1.3 1.3 Absolute Monocytes (0.10 - 0.60 /CUMM) 0.7 H 0.8 H Absolute Eosinophils (0.0 - 0.7 /CUMM) 0.3 0.3 Absolute Basophils (0.0 - 0.2 /CUMM) 0.1 0.1 PUBS MCHC (33.0 - 37.0 G/DL) 31.1 L 32.0 L 11/13 Chemistry Sodium (137 - 145 mmol/L) 144 Potassium (3.5 - 5.1 mmol/L) 4.0 Chloride (98 - 107 mmol/L) 104 Carbon Dioxide (22 - 30 mmol/L) 22 Anion Gap (5 - 16) 18 H BUN (9 - 20 mg/dL) 50 H Creatinine (0.7 - 1.2 mg/dL) 4.8 H Estimated GFR (>60 ml/min) 12 L BUN/Creatinine Ratio (7 - 25 %) 10.4 Glucose (65 - 99 mg/dL) 108 H Calcium (8.4 - 10.2 mg/dL) 8.5 Magnesium (1.6 - 2.3 mg/dL) 1.5 L Total Bilirubin (0.2 - 1.3 mg/dL) 0.3 AST (17 - 59 U/L) 19 ALT (21 - 72 U/L) 17 L Alkaline Phosphatase (< 127 U/L) 104 Troponin I (<0.11 ng/ml) 0.04 Total Protein (6.3 - 8.2 g/dL) 6.2 L Albumin (3.5 - 5.0 g/dL) 3.6 Globulin (1.9 - 4.2 gm/dL) 2.6 Albumin/Globulin Ratio (1.1 - 2.2 %) 1.4 Coagulation PT (9.4 - 12.5 SEC) 23.9 H INR (0.90 - 1.17) 2.29 H APTT (25 - 37 SEC) 42 H Hematology CBC w Diff NO MAN DIFF REQ WBC (4.8 - 10.8 /CUMM) 9.2 RBC (4.70 - 6.10 /CUMM) 4.33 L Hgb (14.0 - 18.0 G/DL) 11.5 L Hct (42 - 52 %) 36.0 L MCV (80.0 - 94.0 FL) 83.2 MCH (27.0 - 31.0 PG) 26.6 L RDW (11.5 - 14.5 %) 23.5 H Plt Count (130 - 400 /CUMM) 167 MPV (7.4 - 10.4 FL) 9.0 Gran % (42.2 - 75.2 %) 71.1 Lymphocytes % (20.5 - 51.1 %) 15.6 L Monocytes % (1.7 - 9.3 %) 9.2 Eosinophils % (0 - 5 %) 3.9 Basophils % (0.0 - 2.0 %) 0.2 Absolute Granulocytes (1.4 - 6.5 /CUMM) 6.5 Absolute Lymphocytes (1.2 - 3.4 /CUMM) 1.4 Absolute Monocytes (0.10 - 0.60 /CUMM) 0.8 H Absolute Eosinophils (0.0 - 0.7 /CUMM) 0.4 Absolute Basophils (0.0 - 0.2 /CUMM) 0 PUBS MCHC (33.0 - 37.0 G/DL) 32.0 L Assessment/Plan Assessment/Recommendations: Assessment: Mr. Arias is a 71-year-old male who presented last night with painless blood per rectum which I feel is most likely secondary to a diverticular bleed which is likely exacerbated by the anticoagulation he is on. As he has never had a colonoscopy an underlying colorectal cancer is also possible, but it would be unusual for this to present this way. Other possible causes of his bleeding are AVMs, a dieulafoys lesion, or colitis although the latter is less likely without any pain. He is also too stable to be having a rapid transit upper GI bleed. He has continued to pass blood with the bowel prep , but he has remained hemodynamically stable and has only had a small drop in his hemoglobin since admission which is not too far from his baseline. His INR is still in the therapeutic range and considering he has continued to bleed it would likely be reasonable to try to reverse it at this time. He also should have a colonoscopy to treat any ongoing active bleeding and also to evaluate for the etiology of the bleeding and this will need to be coordinated around his dialysis which he is due for today. Recommendations: 1. Continue bowel prep until patient is passing pinkish clear stool. 2. Administer 2 units of FFP for his elevated INR and would continue to hold his Coumadin for now. 3. Hold NSAIDs and iron. 4. Notify nephrology that patient has been admitted so they can determine if dialysis is urgent or if it can be safetly delayed until after a colonoscopy 5. Keep NPO except for the bowel prep in anticipation of a diagnostic/ therapeutic colonoscopy to be performed later today. 6. Maintain 2 large-bore IVs at all times. 7. Follow CBCs Q8 hours and transfuse as needed to keep his hemoglobin greater than 8 or as per cardiology recommendations. I will continue to follow this patient and make further recommendations based on his clinical course and results of the colonoscopy. Problem List: 1. Anemia 2. GI bleed 3. Bright red blood per rectum Copies To: BRITT STRE[address],YSABEL Kapoor. Consult Acknowledgment - Thank you for your consult request.
--- NOTE | 2016-11-14 09:47 | Cons- Nephrology ---
General Information and HPI Consulting Request Date of Consult: 11/14/16 Requested By: RUT STREET,BJORN Reason for Consult: ESRD & lower GI bleed Source of Information: patient, old records Exam Limitations: no limitations History of Present Illness: 71 yr old WM w mult med problems including DM, HTN, cardiomyopathy, & ESRD recently begun on HD admit yesterday w 1 day hx painless hematochezia. No vomiting, fever, or rigors. On warfarin for pAfib & scheduled for FFP prior to colonoscopy later today. Last HD 3 days ago but denies uremic sx or SOB. Allergies/Medications Allergies: Coded Allergies: NO KNOWN ALLERGIES (10/04/16) Home Med List: Albuterol Sulfate (Proventil Hfa) 90 MCG HFA.AER.AD 1-2 PUFF INH Q4-6H PRN SHORTNESS OF BREATH (Reported) Albuterol Sulfate (Accuneb) 0.63 MG/3 ML VIAL.NEB 1 AMP INH TID PRN COPD ( Reported) Allopurinol 100 MG TABLET 1 TAB PO DAILY GOUT Aspirin (Ecotrin) 81 MG TABLET.DR 1 TAB PO DAILY HEART (Reported) Budesonide/Formoterol Fumara (Symbicort 160-4.5 Mcg Inhaler) 160 MCG/4.5 MCG PUF 2 PUF INH BID COPD (Reported) Colchicine 0.6 MG TABLET 1 TAB PO DAILY GOUT (Reported) Ferrous Sulfate 325 MG (65 MG IRON) TABLET 1 TAB PO BID SUPPLEMENT (Reported) Folic Acid 1 MG TABLET 1 MG PO DAILY SUPPLEMENT (Reported) Furosemide (Lasix) 40 MG TABLET 2 TAB PO DAILY HEART (Reported) HYDRALAZINE HCL (Hydralazine) 10 MG TABLET 1 TAB PO BID BP (Reported) Insulin Glargine, Recombinan (Lantus) 100 U/ML SALIMA 12 UNIT SC DAILY DIABETES (Reported) Insulin Lispro (Humalog) 100 UNIT/ML VIAL diabetes (Reported) Blood sugar Insulin dose < 80mg/dl No dose 80-150 mg/dl No dose 151-200mg/dl One unit 201-250mg/dl Two units 251-300mg/dl Three units 301-350mg/dl Four units 351-400mg/dl Six units Above 400mg/dl Eight units and call . Isosorbide Mononitrate (Imdur) [address] 1 TAB PO DAILY CAD (Reported) Metoprolol Tartrate (Lopressor) 50 MG TAB 1 TAB PO BID HEART (Reported) Omeprazole 20 MG CAPSULE.DR 1 CAP PO DAILY AC GI (Reported) Simvastatin (Zocor) 20 MG TAB 1 TAB PO 1700 CHOLESTEROL (Reported) Warfarin Sodium (Coumadin) 5 MG TABLET 1 TAB PO DAILY BLOOD THINNER (Reported ) please dose Coumadin as per INR. Current Medications: Current Medications Sig/Johnna Start time Last Medication Dose Route Stop Time Status Admin Atorvastatin Calcium 10 MG 1700 11/14 1700 AC PO Budesonide/ 2 PUF BID 11/14 1000 AC Formoterol Fumarate INH Ferrous Sulfate 325 MG BID 11/14 1000 AC PO Folic Acid 1 MG DAILY 11/14 1000 AC PO Ibuprofen 600 MG Q6P PRN 11/13 2345 DC PO Magnesium Sulfate 1 GM ONCE ONE 11/14 0015 DC 11/14 Dextrose/Water 100 ML IV 11/14 0414 0218 Oxycodone/ 1 TAB Q6P PRN 11/13 2345 AC Acetaminophen PO Oxycodone/ 2 TAB Q6P PRN 11/13 2345 AC Acetaminophen PO Polyethylene Glycol 1 GAL ONCE ONE 11/13 2345 DC 11/14 PO 11/13 2346 0054 Review of Systems Review of Systems Constitutional: Reports: no symptoms. EENTM: Reports: no symptoms. Cardiovascular: Reports: no symptoms. Respiratory: Reports: no symptoms. GI: Denies: see HPI. Genitourinary: Reports: no symptoms. Musculoskeletal: Reports: no symptoms. Skin: Reports: no symptoms. Neurological/Psychological: Reports: no symptoms. Hematologic/Endocrine: Reports: no symptoms. Immunologic/Allergic: Reports: no symptoms. 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 Psychosocial History Where Do You Live? Home Services at Home: None Smoking Status: Former Smoker ETOH Use: denies use Illicit Drug Use: denies illicit drug use Functional Ability ADLs Independent: dressing, eating, toileting, bathing. Ambulation: independent IADLs Independent: shopping, housework, finances, food prep, telephone, transportation , medication admin. Exam & Diagnostic Data Vital Signs and I&O Vital Signs Date Time Temp Pulse Resp B/P Pulse O2 O2 Flow FiO2 Ox Delivery Rate 11/14 08 97.7 60 20 146/68 95 Room Air 11/14 0400 96 Room Air 11/14 0106 96 Room Air 11/14 0030 97.3 60 24 140/48 96 Room Air 11/13 2348 66 147/72 11/13 2313 98.6 59 18 194/77 98 Room Air 11/13 2248 60 18 169/73 96 Room Air 11/13 2205 67 149/67 11/13 2200 163/73 11/13 2012 97.3 78 18 175/72 98 Room Air Intake & Output 11/14 1600 11/14 0400 11/13 1600 11/13 0400 11/12 1600 11/12 0400 Intake Total 2100 Output Total 795 Balance 1305 Intake, IV 100 Intake, Oral 2000 Output, Stool 475 Output, Urine 320 Patient 188 lb Weight Physical Exam General Appearance: well developed/nourished, no apparent distress, alert, awake Head: atraumatic, normal appearance Eyes: Bilateral: normal appearance. Ears, Nose, Throat: normal ENT inspection Neck: R IJ HD cath Respiratory: no respiratory distress, expir rhonchi/wheeze bilat Cardiovascular: regular rate/rhythm, friction rub (none) Gastrointestinal: soft, non-tender, no organomegaly Back: normal inspection Extremities: no edema Neurologic/Psych: no motor/sensory deficits, awake, alert, oriented x 3, normal mood/affect Skin: intact, normal color, warm/dry Lymphatic: no anterior cervical alea Results Pertinent Lab Results: Laboratory Tests 11/14 11/14 0434 0128 Chemistry Sodium (137 - 145 mmol/L) 144 Potassium (3.5 - 5.1 mmol/L) 3.8 Chloride (98 - 107 mmol/L) 106 Carbon Dioxide (22 - 30 mmol/L) 22 Anion Gap (5 - 16) 16 BUN (9 - 20 mg/dL) 52 H Creatinine (0.7 - 1.2 mg/dL) 5.0 H Estimated GFR (>60 ml/min) 11 L Glucose (65 - 99 mg/dL) 161 H Lactic Acid (0.7 - 2.1 mmol/L) 0.9 Calcium (8.4 - 10.2 mg/dL) 8.3 L Phosphorus (2.5 - 4.5 mg/dL) 5.5 H Magnesium (1.6 - 2.3 mg/dL) 1.9 Total Bilirubin (0.2 - 1.3 mg/dL) 0.2 AST (17 - 59 U/L) 17 ALT (21 - 72 U/L) 23 Albumin (3.5 - 5.0 g/dL) 3.0 L Coagulation PT (9.4 - 12.5 SEC) 25.2 H INR (0.90 - 1.17) 2.42 H Hematology CBC w Diff NO MAN DIFF REQ NO MAN DIFF REQ WBC (4.8 - 10.8 /CUMM) 8.4 8.8 RBC (4.70 - 6.10 /CUMM) 3.67 L 4.05 L Hgb (14.0 - 18.0 G/DL) 9.7 L 10.8 L Hct (42 - 52 %) 31.1 L 33.8 L MCV (80.0 - 94.0 FL) 84.7 83.4 MCH (27.0 - 31.0 PG) 26.4 L 26.7 L RDW (11.5 - 14.5 %) 23.0 H 22.4 H Plt Count (130 - 400 /CUMM) 118 L 130 MPV (7.4 - 10.4 FL) 9.0 9.5 Gran % (42.2 - 75.2 %) 71.6 70.9 Lymphocytes % (20.5 - 51.1 %) 15.2 L 14.7 L Monocytes % (1.7 - 9.3 %) 8.6 9.6 H Eosinophils % (0 - 5 %) 3.8 3.8 Basophils % (0.0 - 2.0 %) 0.8 1.0 Absolute Granulocytes (1.4 - 6.5 /CUMM) 6.0 6.2 Absolute Lymphocytes (1.2 - 3.4 /CUMM) 1.3 1.3 Absolute Monocytes (0.10 - 0.60 /CUMM) 0.7 H 0.8 H Absolute Eosinophils (0.0 - 0.7 /CUMM) 0.3 0.3 Absolute Basophils (0.0 - 0.2 /CUMM) 0.1 0.1 PUBS MCHC (33.0 - 37.0 G/DL) 31.1 L 32.0 L 11/13 Chemistry Sodium (137 - 145 mmol/L) 144 Potassium (3.5 - 5.1 mmol/L) 4.0 Chloride (98 - 107 mmol/L) 104 Carbon Dioxide (22 - 30 mmol/L) 22 Anion Gap (5 - 16) 18 H BUN (9 - 20 mg/dL) 50 H Creatinine (0.7 - 1.2 mg/dL) 4.8 H Estimated GFR (>60 ml/min) 12 L BUN/Creatinine Ratio (7 - 25 %) 10.4 Glucose (65 - 99 mg/dL) 108 H Calcium (8.4 - 10.2 mg/dL) 8.5 Magnesium (1.6 - 2.3 mg/dL) 1.5 L Total Bilirubin (0.2 - 1.3 mg/dL) 0.3 AST (17 - 59 U/L) 19 ALT (21 - 72 U/L) 17 L Alkaline Phosphatase (< 127 U/L) 104 Troponin I (<0.11 ng/ml) 0.04 Total Protein (6.3 - 8.2 g/dL) 6.2 L Albumin (3.5 - 5.0 g/dL) 3.6 Globulin (1.9 - 4.2 gm/dL) 2.6 Albumin/Globulin Ratio (1.1 - 2.2 %) 1.4 Coagulation PT (9.4 - 12.5 SEC) 23.9 H INR (0.90 - 1.17) 2.29 H APTT (25 - 37 SEC) 42 H Hematology CBC w Diff NO MAN DIFF REQ WBC (4.8 - 10.8 /CUMM) 9.2 RBC (4.70 - 6.10 /CUMM) 4.33 L Hgb (14.0 - 18.0 G/DL) 11.5 L Hct (42 - 52 %) 36.0 L MCV (80.0 - 94.0 FL) 83.2 MCH (27.0 - 31.0 PG) 26.6 L RDW (11.5 - 14.5 %) 23.5 H Plt Count (130 - 400 /CUMM) 167 MPV (7.4 - 10.4 FL) 9.0 Gran % (42.2 - 75.2 %) 71.1 Lymphocytes % (20.5 - 51.1 %) 15.6 L Monocytes % (1.7 - 9.3 %) 9.2 Eosinophils % (0 - 5 %) 3.9 Basophils % (0.0 - 2.0 %) 0.2 Absolute Granulocytes (1.4 - 6.5 /CUMM) 6.5 Absolute Lymphocytes (1.2 - 3.4 /CUMM) 1.4 Absolute Monocytes (0.10 - 0.60 /CUMM) 0.8 H Absolute Eosinophils (0.0 - 0.7 /CUMM) 0.4 Absolute Basophils (0.0 - 0.2 /CUMM) 0 PUBS MCHC (33.0 - 37.0 G/DL) 32.0 L Assessment/Plan Assessment/Recommendations Assessment: 1. ESRD: due to DM & HTN; OK for colonoscopy w heparin free HD thereafter 2. GI bleed: if requires transfusion prbc --> should be done w HD Recommendations: 1. HD today 2. d/c ibuprofen 3. check ferritin, Fe sat 4. EPO w HD 5. d/c po Fe --> if needs will give IV Fe w HD
--- NOTE | 2016-11-14 11:53 | Cons- Cardiology ---
General Information and HPI Consulting Request Date of Consult: 11/14/16 Requested By: HOLLI MUNIZ MD Reason for Consult: Paroxysmal atrial fibrillation, GI bleed History of Present Illness: The patient is a 71-year-old male who is followed in the office by Dr. Crandall, with history of multiple medical problems, including hypertension, hyperlipidemia, COPD, paroxysmal atrial fibrillation, permanent pacemaker, CAD, and congestive heart failure. He is anticoagulated on warfarin. He presented to the emergency department with complaint of bright red blood per rectum. He noted 2 bloody bowel movements a few minutes apart. While in the ED he had 4 additional episodes of rectal bleeding. He denies any previous history of rectal bleed. His last dose of Coumadin was on the day before admission. He has a history of anemia, for which she was planned for outpatient workup. His had no chest pain. No shortness of breath. No palpitations. No diaphoresis. No syncope. No lightheadedness or dizziness. No nausea or vomiting. Allergies/Medications Allergies: Coded Allergies: NO KNOWN ALLERGIES (10/04/16) Home Med List: Albuterol Sulfate (Proventil Hfa) 90 MCG HFA.AER.AD 1-2 PUFF INH Q4-6H PRN SHORTNESS OF BREATH (Reported) Albuterol Sulfate (Accuneb) 0.63 MG/3 ML VIAL.NEB 1 AMP INH TID PRN COPD ( Reported) Allopurinol 100 MG TABLET 1 TAB PO DAILY GOUT Aspirin (Ecotrin) 81 MG TABLET.DR 1 TAB PO DAILY HEART (Reported) Colchicine 0.6 MG TABLET 1 TAB PO DAILY GOUT (Reported) Ferrous Sulfate 325 MG (65 MG IRON) TABLET 1 TAB PO BID SUPPLEMENT (Reported) Folic Acid 1 MG TABLET 1 MG PO DAILY SUPPLEMENT (Reported) Furosemide (Lasix) 40 MG TABLET 2 TAB PO DAILY HEART (Reported) HYDRALAZINE HCL (Hydralazine) 10 MG TABLET 1 TAB PO BID BP (Reported) Insulin Glargine, Recombinan (Lantus) 100 U/ML SALIMA 12 UNIT SC DAILY DIABETES (Reported) Insulin Lispro (Humalog) 100 UNIT/ML VIAL diabetes (Reported) Blood sugar Insulin dose < 80mg/dl No dose 80-150 mg/dl No dose 151-200mg/dl One unit 201-250mg/dl Two units 251-300mg/dl Three units 301-350mg/dl Four units 351-400mg/dl Six units Above 400mg/dl Eight units and call MD. Isosorbide Mononitrate (Imdur) [address] 1 TAB PO DAILY CAD (Reported) Metoprolol Tartrate (Lopressor) 50 MG TAB 1 TAB PO BID HEART (Reported) Omeprazole 20 MG CAPSULE.DR 1 CAP PO DAILY AC GI (Reported) Simvastatin (Zocor) 20 MG TAB 1 TAB PO 1700 CHOLESTEROL (Reported) Warfarin Sodium (Coumadin) 5 MG TABLET 1 TAB PO DAILY BLOOD THINNER (Reported ) please dose Coumadin as per INR. Current Medications: Current Medications Sig/Johnna Start time Last Medication Dose Route Stop Time Status Admin Albuterol Sulfate 3 ML Q4P PRN 11/14 1715 AC 11/14 INH 1705 Atorvastatin Calcium 10 MG 1700 11/14 1700 AC PO Budesonide/ 2 PUF BID 11/14 1000 CAN Formoterol Fumarate INH Chlorhexidine 1 GM .STK-MED ONE 11/14 1515 DC Gluconate TOP 11/14 1516 Epoetin Guzman 6,000 UNIT MoWeFr PRN 11/14 1630 AC IV Ferrous Sulfate 325 MG BID 11/14 1000 CAN PO Folic Acid 1 MG DAILY 11/14 1000 AC PO Ibuprofen 600 MG Q6P PRN 11/13 2345 DC PO Insulin Human Regular 0 Q6 11/14 1800 AC SC Magnesium Sulfate 1 GM .STK-MED ONE 11/14 0151 DC IM 11/14 0152 Magnesium Sulfate 1 GM ONCE ONE 11/14 0015 DC 11/14 Dextrose/Water 100 ML IV 11/14 0414 0218 Oxycodone/ 1 TAB Q6P PRN 11/13 2345 AC Acetaminophen PO Oxycodone/ 2 TAB Q6P PRN 11/13 2345 AC Acetaminophen PO Paricalcitol 2 MCG MoWeFr PRN 11/14 1630 AC IV Polyethylene Glycol 1 GAL ONCE ONE 11/13 2345 DC 11/14 PO 11/13 2346 0054 Sodium Phosphate 1 UNIT ONCE ONE 11/14 1145 DC 11/14 IL 11/14 1146 1230 Sodium Phosphate 1 UNIT ONCE ONE 11/14 1145 DC 11/14 IL 11/14 1146 1306 Review of Systems Review of Systems: No rash. No tremor. No syncope. All other systems were reviewed, and were noted to be negative. 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 Psychosocial History Where Do You Live? Home Services at Home: None Smoking Status: Former Smoker ETOH Use: denies use Illicit Drug Use: denies illicit drug use Functional Ability ADLs Independent: dressing, eating, toileting, bathing. Ambulation: independent IADLs Independent: shopping, housework, finances, food prep, telephone, transportation , medication admin. ECHO Results (as available) Report: CONCLUSIONS 1. Moderate aortic sclerosis is present with minimal aortic insufficiency. 2. Mitral leaflet thickening is present with mild to moderate mitral insufficiency and moderate left atrial dilatation. 3. There is no significant pericardial fluid present. 4. The left ventricular chamber size is normal. There is hypokinesia of the inferoposterior, inferolateral and inferoapical segments with an ejection fraction of 40-45%. Additional images were obtained following the administration of IV contrast. 5. The right heart chambers are upper normal in size. Mild to moderate tricuspid insufficiency is present with pulmonary hypertension and an estimated RV systolic pressure of 54 mmHg. 6. Pacemaker wires are noted in the right heart chambers. Exam & Diagnostic Data Vital Signs and I&O Vital Signs Date Time Temp Pulse Resp B/P Pulse O2 O2 Flow FiO2 Ox Delivery Rate 11/14 1600 91 Room Air 11/14 1600 96.6 61 22 164/60 96 Room Air 11/14 1200 96 Room Air 11/14 0800 97.7 60 20 146/68 95 Room Air 11/14 0800 97 Room Air 11/14 0400 96 Room Air 11/14 0106 96 Room Air 11/14 0030 97.3 60 24 140/48 96 Room Air 11/13 2348 66 147/72 11/13 2313 98.6 59 18 194/77 98 Room Air 11/13 2248 60 18 169/73 96 Room Air 11/13 2205 67 149/67 11/130 163/73 11/13 2012 97.3 78 18 175/72 98 Room Air Intake & Output 11/14 1600 11/14 0800 11/14 0000 11/13 1600 11/13 0800 11/13 0000 Intake Total 500 2100 Output Total 795 Balance 500 1305 Intake, Blood 500 Product Intake, IV 100 Intake, Oral 2000 Number 14 Bowel Movements Output, Stool 475 Output, Urine 320 Patient 188 lb 184 lb Weight Physical Exam: Gen: The patient is in no acute distress HEENT: Normal nose, ears, and oropharynx. Pupils equal bilaterally. Conjunctiva normal. Neck: Supple with no JVD, no masses, and no thyromegaly Lungs: Clear to auscultation with normal respiratory effort Heart: RRR, S1, S2, 2/6 systolic murmur. Trace peripheral edema, 1+ pulses in the lower extremities bilaterally Abdomen: Soft, nontender, no masses. No hepatomegaly. No splenomegaly Extremities: No clubbing or cyanosis. Normal muscle strength in the upper and lower extremities Skin: Normal skin turgor with no skin ulcers or lesions noted. Neuro: Cranial nerves intact. Sensation intact Psych: Alert and oriented 3 with appropriate affect Labs/Satnam Results: Laboratory Tests 11/14 11/14 1550 1145 Chemistry Iron (49 - 181 ug/dL) 27 L TIBC (261 - 462 ug/dL) 309 Ferritin (17.9 - 464 ng/mL) 247.0 Coagulation PT (9.4 - 12.5 SEC) 20.2 H INR (0.90 - 1.17) 1.94 H Hematology CBC w Diff NO MAN DIFF REQ NO MAN DIFF REQ WBC (4.8 - 10.8 /CUMM) 7.6 8.3 RBC (4.70 - 6.10 /CUMM) 3.42 L 3.66 L Hgb (14.0 - 18.0 G/DL) 9.1 L 9.8 L Hct (42 - 52 %) 28.8 L 30.6 L MCV (80.0 - 94.0 FL) 84.2 83.7 MCH (27.0 - 31.0 PG) 26.6 L 26.9 L RDW (11.5 - 14.5 %) 22.7 H 22.5 H Plt Count (130 - 400 /CUMM) 111 L 114 L MPV (7.4 - 10.4 FL) 9.0 9.2 Gran % (42.2 - 75.2 %) 72.7 73.8 Lymphocytes % (20.5 - 51.1 %) 14.6 L 12.4 L Monocytes % (1.7 - 9.3 %) 8.4 9.0 Eosinophils % (0 - 5 %) 3.8 4.3 Basophils % (0.0 - 2.0 %) 0.5 0.5 Absolute Granulocytes (1.4 - 6.5 /CUMM) 5.5 6.1 Absolute Lymphocytes (1.2 - 3.4 /CUMM) 1.1 L 1.0 L Absolute Monocytes (0.10 - 0.60 /CUMM) 0.6 0.7 H Absolute Eosinophils (0.0 - 0.7 /CUMM) 0.3 0.4 Absolute Basophils (0.0 - 0.2 /CUMM) 0 0 PUBS MCHC (33.0 - 37.0 G/DL) 31.6 L 32.2 L 11/14 11/14 0434 0128 Chemistry Sodium (137 - 145 mmol/L) 144 Potassium (3.5 - 5.1 mmol/L) 3.8 Chloride (98 - 107 mmol/L) 106 Carbon Dioxide (22 - 30 mmol/L) 22 Anion Gap (5 - 16) 16 BUN (9 - 20 mg/dL) 52 H Creatinine (0.7 - 1.2 mg/dL) 5.0 H Estimated GFR (>60 ml/min) 11 L Glucose (65 - 99 mg/dL) 161 H Lactic Acid (0.7 - 2.1 mmol/L) 0.9 Calcium (8.4 - 10.2 mg/dL) 8.3 L Phosphorus (2.5 - 4.5 mg/dL) 5.5 H Magnesium (1.6 - 2.3 mg/dL) 1.9 Total Bilirubin (0.2 - 1.3 mg/dL) 0.2 AST (17 - 59 U/L) 17 ALT (21 - 72 U/L) 23 Albumin (3.5 - 5.0 g/dL) 3.0 L Coagulation PT (9.4 - 12.5 SEC) 25.2 H INR (0.90 - 1.17) 2.42 H Hematology CBC w Diff NO MAN DIFF REQ NO MAN DIFF REQ WBC (4.8 - 10.8 /CUMM) 8.4 8.8 RBC (4.70 - 6.10 /CUMM) 3.67 L 4.05 L Hgb (14.0 - 18.0 G/DL) 9.7 L 10.8 L Hct (42 - 52 %) 31.1 L 33.8 L MCV (80.0 - 94.0 FL) 84.7 83.4 MCH (27.0 - 31.0 PG) 26.4 L 26.7 L RDW (11.5 - 14.5 %) 23.0 H 22.4 H Plt Count (130 - 400 /CUMM) 118 L 130 MPV (7.4 - 10.4 FL) 9.0 9.5 Gran % (42.2 - 75.2 %) 71.6 70.9 Lymphocytes % (20.5 - 51.1 %) 15.2 L 14.7 L Monocytes % (1.7 - 9.3 %) 8.6 9.6 H Eosinophils % (0 - 5 %) 3.8 3.8 Basophils % (0.0 - 2.0 %) 0.8 1.0 Absolute Granulocytes (1.4 - 6.5 /CUMM) 6.0 6.2 Absolute Lymphocytes (1.2 - 3.4 /CUMM) 1.3 1.3 Absolute Monocytes (0.10 - 0.60 /CUMM) 0.7 H 0.8 H Absolute Eosinophils (0.0 - 0.7 /CUMM) 0.3 0.3 Absolute Basophils (0.0 - 0.2 /CUMM) 0.1 0.1 PUBS MCHC (33.0 - 37.0 G/DL) 31.1 L 32.0 L 11/13 Chemistry Sodium (137 - 145 mmol/L) 144 Potassium (3.5 - 5.1 mmol/L) 4.0 Chloride (98 - 107 mmol/L) 104 Carbon Dioxide (22 - 30 mmol/L) 22 Anion Gap (5 - 16) 18 H BUN (9 - 20 mg/dL) 50 H Creatinine (0.7 - 1.2 mg/dL) 4.8 H Estimated GFR (>60 ml/min) 12 L BUN/Creatinine Ratio (7 - 25 %) 10.4 Glucose (65 - 99 mg/dL) 108 H Calcium (8.4 - 10.2 mg/dL) 8.5 Magnesium (1.6 - 2.3 mg/dL) 1.5 L Total Bilirubin (0.2 - 1.3 mg/dL) 0.3 AST (17 - 59 U/L) 19 ALT (21 - 72 U/L) 17 L Alkaline Phosphatase (< 127 U/L) 104 Troponin I (<0.11 ng/ml) 0.04 Total Protein (6.3 - 8.2 g/dL) 6.2 L Albumin (3.5 - 5.0 g/dL) 3.6 Globulin (1.9 - 4.2 gm/dL) 2.6 Albumin/Globulin Ratio (1.1 - 2.2 %) 1.4 Coagulation PT (9.4 - 12.5 SEC) 23.9 H INR (0.90 - 1.17) 2.29 H APTT (25 - 37 SEC) 42 H Hematology CBC w Diff NO MAN DIFF REQ WBC (4.8 - 10.8 /CUMM) 9.2 RBC (4.70 - 6.10 /CUMM) 4.33 L Hgb (14.0 - 18.0 G/DL) 11.5 L Hct (42 - 52 %) 36.0 L MCV (80.0 - 94.0 FL) 83.2 MCH (27.0 - 31.0 PG) 26.6 L RDW (11.5 - 14.5 %) 23.5 H Plt Count (130 - 400 /CUMM) 167 MPV (7.4 - 10.4 FL) 9.0 Gran % (42.2 - 75.2 %) 71.1 Lymphocytes % (20.5 - 51.1 %) 15.6 L Monocytes % (1.7 - 9.3 %) 9.2 Eosinophils % (0 - 5 %) 3.9 Basophils % (0.0 - 2.0 %) 0.2 Absolute Granulocytes (1.4 - 6.5 /CUMM) 6.5 Absolute Lymphocytes (1.2 - 3.4 /CUMM) 1.4 Absolute Monocytes (0.10 - 0.60 /CUMM) 0.8 H Absolute Eosinophils (0.0 - 0.7 /CUMM) 0.4 Absolute Basophils (0.0 - 0.2 /CUMM) 0 PUBS MCHC (33.0 - 37.0 G/DL) 32.0 L Diagnostic Data EKG Results EKG tracing is independently reviewed, and reveals ventricular pacing. Underlying rhythm is possibly atrial fibrillation. CXR Results Chest x-ray 10/04/16: Stable cardiomegaly. Probable small bilateral pleural effusions, right greater than left with mild bibasilar airspace disease likely reflecting atelectasis. Clinical correlation recommended. No evidence of overt CHF. Other Results Echocardiogram 10/05/16: 1. Fibrocalcific degeneration is present in the aortic valve with evidence of moderate valvular stenosis and an estimated JUJU of 1.1 cm2 2. MItral leaflet thickening is present with mild to moderate mitral insufficiency and mild to moderate left atrial enlargement. 3. A small pericardial effusion is present which is hemodynamically insignificant. 4. The left ventricular chamber size is normal with borderline to mild LVH and an ejection fraction of 50-55%. Mild localized inferoposterior hypokinesia is present. 5. Mild to moderate tricuspid insufficiency is present with mild right heart chamber enlargement and moderate pulmonary hypertension with an estimated RV systolic pressure of 52 mmHg. 6. Pacemaker wires are noted in the right heart chambers. Assessment/Plan Assessment/Plan Assessment: 1. Coronary artery disease, status post CABG 2. Mildly decreased left ventricle systolic function 3. Paroxysmal atrial fibrillation, anticoagulated on warfarin 4. End-stage renal disease 5. GI bleed on warfarin Plan: * Warfarin on hold for GI bleed * Agree with reversal of INR with FFP +/- vit K * Continue other cardiac medications * Agree with plan for GI workup. * Further management of anticoagulation given the results of GI workup. Consult Acknowledgment - Thank you for your consult request.
[2016-11-14 12:48] LABS: ABSOLUTE BASOPHIL COUNT 0 /CUMM (0.0-0.2); ABSOLUTE EOSINOPHIL COUNT 0.4 /CUMM (0.0-0.7); ABSOLUTE GRANULOCYTE CT 6.1 /CUMM (1.4-6.5); ABSOLUTE MONOCYTE COUNT 0.7 /CUMM (0.10-0.60); BASOPHIL % 0.5 % (0.0-2.0); EOSINOPHIL % 4.3 % (0-5); GRANULOCYTE % 73.8 % (42.2-75.2); HEMATOCRIT 30.6 % (42-52); MEAN CORPUSCULAR HGB 26.9 PG (27.0-31.0); MEAN CORPUSCULAR HGB CONC 32.2 G/DL (33.0-37.0); MEAN CORPUSCULAR VOLUME 83.7 FL (80.0-94.0); MEAN PLATELET VOLUME 9.2 FL (7.4-10.4); PLATELET COUNT 114 /CUMM (130-400); RBC DISTRIBUTION WIDTH 22.5 % (11.5-14.5); RED BLOOD CELL CT 3.66 /CUMM (4.70-6.10); WHITE BLOOD CELL COUNT 8.3 /CUMM (4.8-10.8)
[2016-11-14 12:58] LABS: PT 20.2 SEC (9.4-12.5)
--- NOTE | 2016-11-14 13:00 | NUR ---
Patient is alert and oriented x's 3, able to follow commands and respond appropriately. LCW pacer in place and is paced on the tele monitor with a heart rate in the 60's. SBP: 120-140's and pt denies chest pain. On room air, lungs clear, O2 sat 94-96% and pt is SOB with ecertion. Abdomen is distended soft and non tender with + bowel sounds. He has finished more than half of the golytly and has also received [address] Pederson's orders. Pt has had multiple loose watery bright red bloody stools with some clots noted. Ambulates with minimal assistance OOB to the [facility]. A [facility] Ilya cath is in place and he will have dialysis after colonscopy that is scheduled for 1330. Left arm is resricted for anticipated fistula placement. Minimal void. Skin is intact with trace BLE edema. Patient denies pain, dizziness, and lightheadedness. The 2nd unit of FFP is currently infusing per order and labs were drawn at 1150 after the first unit of FFP finished infusing. Pt offers no complaints at this time. Will continue to closely monitor patient.
--- NOTE | 2016-11-14 13:40 | NUR ---
Patient was transported to GI on athletic monitor accompanied by this RN. Report given to GI RN- FFP continues to infuse and labs from 1200 remain pending. Vitals remain stable and pt offers no complaints at this time.
--- NOTE | 2016-11-14 14:40 | Proc Note Colonoscopy ---
Colonoscopy Procedure Medical History: unchanged (see meditech consult) Mental Status: alert/oriented Heart/Lung Eval Prior to Sedation: within normal limits Candidate for Sedation? Yes Date of Last Colonoscopy: No prior colonoscopy. Procedure Date: 11/14/16 Procedure Type: colonoscopy w/polypectomy Crutching Contractor: Roger Pederson MD ASA Classification: III Indications: Rectal bleeding. Instrument (Colonoscope): single channel Meds Received: MAC Patient's Tolerance: good Complications: none Extent Reached: cecum Prep: poor Procedure: After getting written informed consent the patient was placed in the left lateral decubitus position with pulse oximetry, cardiac monitoring, and supplemental oxygen was given. IV sedation was given until the desired effect was achieved. A rectal exam was performed which was normal. A high definition variable stiffness Olympus colonoscope was then inserted into the anus and advanced to the cecum with little difficulty. Retroflexed views were obtained and photodocumentation was obtained. Close inspection of the colonic mucosa was performed on insertion and withdrawal of the colonoscope with a withdrawal time that was adequate in length to closely inspect all folds and boyer of the colon with care to suction and irrigate away any leftover remaining stool to the best of my ability. Findings: There was a 8 mm pedunculated polyp in the sigmoid colon at approximately 20 cm from the anus which was actively bleeding. The polyp was removed with snare polypectomy and monopolar cautery and was retrieved through the colonoscope and was sent to pathology for further evaluation. After the polyp was removed the bleeding stopped. One prophylactic Hemoclip was then placed over the polypectomy stalk without any significant bleeding ensuing. There were a few scattered diverticula in the sigmoid colon and there was a nonbleeding AVM in the ascending colon which was left untreated. There was brown stool proximal to the bleeding polyp and this was appreciated to the cecum. There was a moderate amount of leftover stool which could not be completely cleared through the colonoscope so that lesions less than 1.5 cm could not be definitively ruled out. There were no obvious masslike lesions or large polyps appreciated. Retroflexed views in the rectum revealed small internal hemorrhoids. Impression: 1. Bleeding pedunculated polyp at 20 cm from the anus status post removal with snare polypectomy with good hemostasis being achieved and one prophylactic Hemoclip placed. 2. Sigmoid diverticulosis. 3. Nonbleeding ascending colon AVM left untreated. 4. Small internal hemorrhoids. 5. Poor prep so that lesions less than 1.5 cm could not be definitively ruled out. Recommendations: 1. Advance diet as tolerated. 2. Would hold Coumadin for an additional 48 hours and if no further bleeding would then restart it. 3. If he remains without active bleeding it is okay to restart his baby aspirin in the next 24-48 hours if medically indicated. 4. Follow CBCs q8 hours and transfuse as needed to keep his hemoglobin greater than 8 or as per cardiac conditions. 5. Follow INR. 6. Notify GI for signs of hemodynamically significant GI bleeding. 7. He should follow up the pathology results of the polyp as an outpatient. 8. He should have a repeat colonoscopy in 3-6 months with a better prep to clear the remainder of his colon considering the quality of the bowel preparation and the presence of polyps. Followup Colonscopy Screen In: 3-6 months CC: [address],YSABEL Burgos
[2016-11-14 16:00] VITALS: BP 164/60
[2016-11-14 16:22] LABS: ABSOLUTE BASOPHIL COUNT 0 /CUMM (0.0-0.2); ABSOLUTE EOSINOPHIL COUNT 0.3 /CUMM (0.0-0.7); ABSOLUTE GRANULOCYTE CT 5.5 /CUMM (1.4-6.5); ABSOLUTE LYMPH COUNT 1.1 /CUMM (1.2-3.4); ABSOLUTE MONOCYTE COUNT 0.6 /CUMM (0.10-0.60); BASOPHIL % 0.5 % (0.0-2.0); EOSINOPHIL % 3.8 % (0-5); GRANULOCYTE % 72.7 % (42.2-75.2); HEMATOCRIT 28.8 % (42-52); MEAN CORPUSCULAR HGB 26.6 PG (27.0-31.0); MEAN CORPUSCULAR HGB CONC 31.6 G/DL (33.0-37.0); MEAN CORPUSCULAR VOLUME 84.2 FL (80.0-94.0); RBC DISTRIBUTION WIDTH 22.7 % (11.5-14.5); RED BLOOD CELL CT 3.42 /CUMM (4.70-6.10); WHITE BLOOD CELL COUNT 7.6 /CUMM (4.8-10.8)
[2016-11-14 16:24] LABS: PLATELET COUNT 111 /CUMM (130-400)
--- NOTE | 2016-11-14 17:00 | NUR ---
Patient transported back to room 101 from GI suite by this RN. CBC drawn at this time per order and dialysis nurse at the bedside. Vitals rylie currently stable and pt offers no complaints. He did have to more bloody stools since arrival back to floor. Dr. Hua was made aware. Pt to start clear liquid diet after dialysis. Will continue to closely monitor patient.
[2016-11-14 21:47] LABS: ABSOLUTE BASOPHIL COUNT 0 /CUMM (0.0-0.2); ABSOLUTE EOSINOPHIL COUNT 0.2 /CUMM (0.0-0.7); ABSOLUTE GRANULOCYTE CT 7.2 /CUMM (1.4-6.5); ABSOLUTE LYMPH COUNT 0.9 /CUMM (1.2-3.4); ABSOLUTE MONOCYTE COUNT 0.9 /CUMM (0.10-0.60); BASOPHIL % 0.4 % (0.0-2.0); EOSINOPHIL % 2.2 % (0-5); GRANULOCYTE % 77.7 % (42.2-75.2); HEMATOCRIT 27.1 % (42-52); MEAN CORPUSCULAR HGB 26.3 PG (27.0-31.0); MEAN CORPUSCULAR HGB CONC 31.5 G/DL (33.0-37.0); MEAN CORPUSCULAR VOLUME 83.5 FL (80.0-94.0); MEAN PLATELET VOLUME 8.8 FL (7.4-10.4); RED BLOOD CELL CT 3.24 /CUMM (4.70-6.10); WHITE BLOOD CELL COUNT 9.3 /CUMM (4.8-10.8)
[2016-11-14 21:58] LABS: PLATELET COUNT 103 /CUMM (130-400)
[2016-11-15] VITALS: BP 110/50
[2016-11-15 08:00] VITALS: BP 126/60
[2016-11-15 08:18] LABS: ABSOLUTE BASOPHIL COUNT 0 /CUMM (0.0-0.2); ABSOLUTE EOSINOPHIL COUNT 0.3 /CUMM (0.0-0.7); ABSOLUTE GRANULOCYTE CT 5.9 /CUMM (1.4-6.5); ABSOLUTE LYMPH COUNT 1.2 /CUMM (1.2-3.4); ABSOLUTE MONOCYTE COUNT 0.6 /CUMM (0.10-0.60); BASOPHIL % 0.3 % (0.0-2.0); EOSINOPHIL % 3.4 % (0-5); GRANULOCYTE % 74.1 % (42.2-75.2); HEMATOCRIT 26.5 % (42-52); MEAN CORPUSCULAR HGB 26.8 PG (27.0-31.0); MEAN CORPUSCULAR HGB CONC 31.8 G/DL (33.0-37.0); MEAN CORPUSCULAR VOLUME 84.3 FL (80.0-94.0); MEAN PLATELET VOLUME 9.2 FL (7.4-10.4); PLATELET COUNT 99 /CUMM (130-400); RBC DISTRIBUTION WIDTH 22.5 % (11.5-14.5); RED BLOOD CELL CT 3.14 /CUMM (4.70-6.10); WHITE BLOOD CELL COUNT 7.9 /CUMM (4.8-10.8)
[2016-11-15 08:26] LABS: PT 17.3 SEC (9.4-12.5)
--- NOTE | 2016-11-15 08:32 | PN- Gastroenterology ---
Assessment/Plan Assessment/Recommendations: Assessment: Mr. Arias is a 71-year-old male with end-stage renal disease and atrial fibrillation on Coumadin who was admitted 2 nights ago with a lower GI bleed found to be secondary to a bleeding pedunculated polyp which was removed on colonoscopy yesterday with subsequent resolution of his bleeding. He has had a small drop in his hemoglobin since yesterday, but as he has not had any further bloody bowel movements since the procedure and is otherwise stable and based on the appearance of the polypectomy site he has likely stopped bleeding. Recommendations: 1. Advance diet as tolerated. 2. Okay to transfer out of ICU. 3. If he remains without any further bleeding would restart his aspirin later today and his Coumadin tomorrow morning. 4. Follow CBCs and transfuse as needed to keep his hemoglobin greater than 7 or as per cardiology recommendations. 5. Notify GI for any signs of active recurrent bleeding. 6. He should follow up the pathology results with me as an outpatient. 7. He should have a repeat colonoscopy with a more complete bowel preparation in 3-6 months which can obviously be pursued as an outpatient. 8. If he remains without any further bleeding would give consideration to discharging the patient home later today or in the a.m. Subjective Subjective: Pt s/p colonoscopy with snare polypectomy and Hemoclip placement yesterday afternoon. He had 1 bloody bowel movement immediately after the procedure upon returning to the ICU, but has not had any further bowel movements since. He remains without abdominal pain and he is tolerating a liquid diet. Objective Vital Signs and I&Os Vital Signs Date Time Temp Pulse Resp B/P Pulse O2 O2 Flow FiO2 Ox Delivery Rate 11/15 399 98 Nasal 2.0L Cannula 11/15 0000 98 Nasal 2.0L Cannula 11/15 0000 98.1 66 20 110/50 98 Nasal 2.0L Cannula 11/14 2000 100 Nasal 2.0L Cannula 11/14 1818 Room Air Room Air 11/14 1600 91 Room Air 11/14 1600 96.6 61 22 164/60 96 Room Air 11/14 1200 96 Room Air Intake & Output 11/15 1600 11/15 0400 11/14 1600 11/14 0400 11/13 1600 11/13 0400 Intake Total 241 920 3060 Output Total 100 1050 795 Balance 100 -950 1805 Intake, Blood 500 Product Intake, IV 100 Intake, Oral 675 869 5015 Number 2 14 Bowel Movements Output, 1000 Dialysate Output, Stool 475 Output, Urine 100 50 320 Patient 189 lb 190 lb 188 lb Weight Physical Exam General Appearance: well developed/nourished, no apparent distress, comfortable Head: atraumatic, normal appearance Neck: normal inspection, supple Respiratory: normal breath sounds, chest non-tender, no respiratory distress Cardiovascular: irregularly irregular Abdomen: normal bowel sounds, soft, non-tender Back: normal inspection Skin: intact, normal color Current Medications: Current Medications Sig/Johnna Start time Last Medication Dose Route Stop Time Status Admin Albuterol Sulfate 3 ML Q4P PRN 11/14 1715 AC 11/14 INH 1705 Atorvastatin Calcium 10 MG 1700 11/14 1700 AC 11/14 PO 1920 Budesonide/ 2 PUF BID 11/14 1000 CAN Formoterol Fumarate INH Chlorhexidine 1 GM .STK-MED ONE 11/14 1515 DC Gluconate TOP 11/14 1516 Epoetin Guzman 6,000 UNIT MoWeFr PRN 11/14 1630 AC IV Ferrous Sulfate 325 MG BID 11/14 1000 CAN PO Folic Acid 1 MG DAILY 11/14 1000 AC 11/15 PO 0821 Insulin Aspart 0 TIDAC 11/15 0800 AC SC Insulin Human Regular 0 TIDAC 11/15 0800 CAN SC Insulin Human Regular 0 Q6 11/14 1800 DC SC 11/15 0600 Oxycodone/ 1 TAB Q6P PRN 11/13 2345 AC Acetaminophen PO Oxycodone/ 2 TAB Q6P PRN 11/13 2345 AC Acetaminophen PO Paricalcitol 2 MCG MoWeFr PRN 11/14 1630 AC IV Sodium Phosphate 1 UNIT ONCE ONE 11/14 1145 DC 11/14 NE 11/14 1146 1230 Sodium Phosphate 1 UNIT ONCE ONE 11/14 1145 DC 11/14 NE 11/14 1146 1306 Results Pertinent Lab Results: Laboratory Tests 11/15 11/14 11/14 0635 2130 1999 Chemistry Sodium (137 - 145 mmol/L) 140 Potassium (3.5 - 5.1 mmol/L) 3.7 Chloride (98 - 107 mmol/L) 99 Carbon Dioxide (22 - 30 mmol/L) 27 Anion Gap (5 - 16) 13 BUN (9 - 20 mg/dL) 23 H Creatinine (0.7 - 1.2 mg/dL) 2.9 H Estimated GFR (>60 ml/min) 22 L Glucose (65 - 99 mg/dL) 111 H Calcium (8.4 - 10.2 mg/dL) 8.7 Phosphorus (2.5 - 4.5 mg/dL) 3.9 Magnesium (1.6 - 2.3 mg/dL) 1.7 Total Bilirubin (0.2 - 1.3 mg/dL) 0.4 AST (17 - 59 U/L) 20 ALT (21 - 72 U/L) 36 Albumin (3.5 - 5.0 g/dL) 3.2 L Coagulation PT (9.4 - 12.5 SEC) 17.3 H INR (0.90 - 1.17) 1.66 H Hematology CBC w Diff Pending NO MAN DIFF REQ Cancelled WBC (4.8 - 10.8 /CUMM) Pending 9.3 Cancelled RBC (4.70 - 6.10 /CUMM) Pending 3.24 L Cancelled Hgb (14.0 - 18.0 G/DL) Pending 8.5 L Cancelled Hct (42 - 52 %) Pending 27.1 L Cancelled MCV (80.0 - 94.0 FL) Pending 83.5 Cancelled MCH (27.0 - 31.0 PG) Pending 26.3 L Cancelled RDW (11.5 - 14.5 %) Pending 22.0 H Cancelled Plt Count (130 - 400 /CUMM) Pending 103 L Cancelled MPV (7.4 - 10.4 FL) Pending 8.8 Cancelled Gran % (42.2 - 75.2 %) 77.7 H Lymphocytes % (20.5 - 51.1 %) 10.0 L Monocytes % (1.7 - 9.3 %) 9.7 H Eosinophils % (0 - 5 %) 2.2 Basophils % (0.0 - 2.0 %) 0.4 Absolute Granulocytes (1.4 - 6.5 /CUMM) 7.2 H Absolute Lymphocytes (1.2 - 3.4 /CUMM) 0.9 L Absolute Monocytes (0.10 - 0.60 /CUMM) 0.9 H Absolute Eosinophils (0.0 - 0.7 /CUMM) 0.2 Absolute Basophils (0.0 - 0.2 /CUMM) 0 PUBS MCHC (33.0 - 37.0 G/DL) Pending 31.5 L Cancelled 11/14 11/14 1550 1145 Chemistry Iron (49 - 181 ug/dL) 27 L TIBC (261 - 462 ug/dL) 309 Ferritin (17.9 - 464 ng/mL) 247.0 Coagulation PT (9.4 - 12.5 SEC) 20.2 H INR (0.90 - 1.17) 1.94 H Hematology CBC w Diff NO MAN DIFF REQ NO MAN DIFF REQ WBC (4.8 - 10.8 /CUMM) 7.6 8.3 RBC (4.70 - 6.10 /CUMM) 3.42 L 3.66 L Hgb (14.0 - 18.0 G/DL) 9.1 L 9.8 L Hct (42 - 52 %) 28.8 L 30.6 L MCV (80.0 - 94.0 FL) 84.2 83.7 MCH (27.0 - 31.0 PG) 26.6 L 26.9 L RDW (11.5 - 14.5 %) 22.7 H 22.5 H Plt Count (130 - 400 /CUMM) 111 L 114 L MPV (7.4 - 10.4 FL) 9.0 9.2 Gran % (42.2 - 75.2 %) 72.7 73.8 Lymphocytes % (20.5 - 51.1 %) 14.6 L 12.4 L Monocytes % (1.7 - 9.3 %) 8.4 9.0 Eosinophils % (0 - 5 %) 3.8 4.3 Basophils % (0.0 - 2.0 %) 0.5 0.5 Absolute Granulocytes (1.4 - 6.5 /CUMM) 5.5 6.1 Absolute Lymphocytes (1.2 - 3.4 /CUMM) 1.1 L 1.0 L Absolute Monocytes (0.10 - 0.60 /CUMM) 0.6 0.7 H Absolute Eosinophils (0.0 - 0.7 /CUMM) 0.3 0.4 Absolute Basophils (0.0 - 0.2 /CUMM) 0 0 PUBS MCHC (33.0 - 37.0 G/DL) 31.6 L 32.2 L 11/14 11/14 0434 0128 Chemistry Sodium (137 - 145 mmol/L) 144 Potassium (3.5 - 5.1 mmol/L) 3.8 Chloride (98 - 107 mmol/L) 106 Carbon Dioxide (22 - 30 mmol/L) 22 Anion Gap (5 - 16) 16 BUN (9 - 20 mg/dL) 52 H Creatinine (0.7 - 1.2 mg/dL) 5.0 H Estimated GFR (>60 ml/min) 11 L Glucose (65 - 99 mg/dL) 161 H Lactic Acid (0.7 - 2.1 mmol/L) 0.9 Calcium (8.4 - 10.2 mg/dL) 8.3 L Phosphorus (2.5 - 4.5 mg/dL) 5.5 H Magnesium (1.6 - 2.3 mg/dL) 1.9 Total Bilirubin (0.2 - 1.3 mg/dL) 0.2 AST (17 - 59 U/L) 17 ALT (21 - 72 U/L) 23 Albumin (3.5 - 5.0 g/dL) 3.0 L Coagulation PT (9.4 - 12.5 SEC) 25.2 H INR (0.90 - 1.17) 2.42 H Hematology CBC w Diff NO MAN DIFF REQ NO MAN DIFF REQ WBC (4.8 - 10.8 /CUMM) 8.4 8.8 RBC (4.70 - 6.10 /CUMM) 3.67 L 4.05 L Hgb (14.0 - 18.0 G/DL) 9.7 L 10.8 L Hct (42 - 52 %) 31.1 L 33.8 L MCV (80.0 - 94.0 FL) 84.7 83.4 MCH (27.0 - 31.0 PG) 26.4 L 26.7 L RDW (11.5 - 14.5 %) 23.0 H 22.4 H Plt Count (130 - 400 /CUMM) 118 L 130 MPV (7.4 - 10.4 FL) 9.0 9.5 Gran % (42.2 - 75.2 %) 71.6 70.9 Lymphocytes % (20.5 - 51.1 %) 15.2 L 14.7 L Monocytes % (1.7 - 9.3 %) 8.6 9.6 H Eosinophils % (0 - 5 %) 3.8 3.8 Basophils % (0.0 - 2.0 %) 0.8 1.0 Absolute Granulocytes (1.4 - 6.5 /CUMM) 6.0 6.2 Absolute Lymphocytes (1.2 - 3.4 /CUMM) 1.3 1.3 Absolute Monocytes (0.10 - 0.60 /CUMM) 0.7 H 0.8 H Absolute Eosinophils (0.0 - 0.7 /CUMM) 0.3 0.3 Absolute Basophils (0.0 - 0.2 /CUMM) 0.1 0.1 PUBS MCHC (33.0 - 37.0 G/DL) 31.1 L 32.0 L 11/13 Chemistry Sodium (137 - 145 mmol/L) 144 Potassium (3.5 - 5.1 mmol/L) 4.0 Chloride (98 - 107 mmol/L) 104 Carbon Dioxide (22 - 30 mmol/L) 22 Anion Gap (5 - 16) 18 H BUN (9 - 20 mg/dL) 50 H Creatinine (0.7 - 1.2 mg/dL) 4.8 H Estimated GFR (>60 ml/min) 12 L BUN/Creatinine Ratio (7 - 25 %) 10.4 Glucose (65 - 99 mg/dL) 108 H Calcium (8.4 - 10.2 mg/dL) 8.5 Magnesium (1.6 - 2.3 mg/dL) 1.5 L Total Bilirubin (0.2 - 1.3 mg/dL) 0.3 AST (17 - 59 U/L) 19 ALT (21 - 72 U/L) 17 L Alkaline Phosphatase (< 127 U/L) 104 Troponin I (<0.11 ng/ml) 0.04 Total Protein (6.3 - 8.2 g/dL) 6.2 L Albumin (3.5 - 5.0 g/dL) 3.6 Globulin (1.9 - 4.2 gm/dL) 2.6 Albumin/Globulin Ratio (1.1 - 2.2 %) 1.4 Coagulation PT (9.4 - 12.5 SEC) 23.9 H INR (0.90 - 1.17) 2.29 H APTT (25 - 37 SEC) 42 H Hematology CBC w Diff NO MAN DIFF REQ WBC (4.8 - 10.8 /CUMM) 9.2 RBC (4.70 - 6.10 /CUMM) 4.33 L Hgb (14.0 - 18.0 G/DL) 11.5 L Hct (42 - 52 %) 36.0 L MCV (80.0 - 94.0 FL) 83.2 MCH (27.0 - 31.0 PG) 26.6 L RDW (11.5 - 14.5 %) 23.5 H Plt Count (130 - 400 /CUMM) 167 MPV (7.4 - 10.4 FL) 9.0 Gran % (42.2 - 75.2 %) 71.1 Lymphocytes % (20.5 - 51.1 %) 15.6 L Monocytes % (1.7 - 9.3 %) 9.2 Eosinophils % (0 - 5 %) 3.9 Basophils % (0.0 - 2.0 %) 0.2 Absolute Granulocytes (1.4 - 6.5 /CUMM) 6.5 Absolute Lymphocytes (1.2 - 3.4 /CUMM) 1.4 Absolute Monocytes (0.10 - 0.60 /CUMM) 0.8 H Absolute Eosinophils (0.0 - 0.7 /CUMM) 0.4 Absolute Basophils (0.0 - 0.2 /CUMM) 0 PUBS MCHC (33.0 - 37.0 G/DL) 32.0 L
--- NOTE | 2016-11-15 08:52 | PN- CRCU ---
Subjective HPI/Critical Care Issues: pt seen and examined s/p colonoscopy no further bleeding bleeding polyp was clipped no further events s/p hd hemoglobin stable Objective Current Medications: Current Medications Sig/Johnna Start time Last Medication Dose Route Stop Time Status Admin Albuterol Sulfate 3 ML Q4P PRN 11/14 1715 AC 11/14 INH 1705 Atorvastatin Calcium 10 MG 1700 11/14 1700 AC 11/14 PO 1920 Budesonide/ 2 PUF BID 11/14 1000 CAN Formoterol Fumarate INH Chlorhexidine 1 GM .STK-MED ONE 11/14 1515 DC Gluconate TOP 11/14 1516 Epoetin Guzman 6,000 UNIT MoWeFr PRN 11/14 1630 AC IV Ferrous Sulfate 325 MG BID 11/14 1000 CAN PO Folic Acid 1 MG DAILY 11/14 1000 AC 11/15 PO 0821 Insulin Aspart 0 TIDAC 11/15 0800 AC SC Insulin Human Regular 0 TIDAC 11/15 0800 CAN SC Insulin Human Regular 0 Q6 11/14 1800 DC SC 11/15 0600 Oxycodone/ 1 TAB Q6P PRN 11/13 2345 AC Acetaminophen PO Oxycodone/ 2 TAB Q6P PRN 11/13 2345 AC Acetaminophen PO Paricalcitol 2 MCG MoWeFr PRN 11/14 1630 AC IV Sodium Phosphate 1 UNIT ONCE ONE 11/14 1145 DC 11/14 MI 11/14 1146 1230 Sodium Phosphate 1 UNIT ONCE ONE 11/14 1145 DC 11/14 MI 11/14 1146 1306 Vital Signs & I&O Last 24 Hrs of Vitals and I&O: Vital Signs Date Time Temp Pulse Resp B/P Pulse O2 O2 Flow FiO2 Ox Delivery Rate 11/15 0400 98 Nasal 2.0L Cannula 11/15 0000 98 Nasal 2.0L Cannula 11/15 0000 98.1 66 20 110/50 98 Nasal 2.0L Cannula 11/14 2000 100 Nasal 2.0L Cannula 11/14 1818 Room Air Room Air 11/14 1600 91 Room Air 11/14 1600 96.6 61 22 164/60 96 Room Air 11/14 1200 96 Room Air Intake & Output 11/15 1600 11/15 0800 11/15 0000 Intake Total 200 100 Output Total 100 1050 Balance 100 -950 Intake, Oral 200 100 Number 2 Bowel Movements Output, 1000 Dialysate Output, Urine 100 50 Patient 189 lb Weight Exam Other Physical Findings: gen awake and alert heent ncat cvs s1, s2 lungs rare wheeze abd soft, bs+ ext chronic venous stasis Results Last 24 Hrs of Lab Results: Laboratory Tests 11/15/16 0635: Anion Gap 13, Estimated GFR 22 L, Glucose 111 H, Calcium 8.7, Phosphorus 3.9, Magnesium 1.7, Total Bilirubin 0.4, AST 20, ALT 36, Albumin 3.2 L, PT 17.3 H, INR 1.66 H, CBC w Diff NO MAN DIFF REQ, RBC 3.14 L, MCV 84.3, MCH 26.8 L, RDW 22.5 H, MPV 9.2, Gran % 74.1, Lymphocytes % 14.6 L, Monocytes % 7.6, Eosinophils % 3.4, Basophils % 0.3, Absolute Granulocytes 5.9, Absolute Lymphocytes 1.2, Absolute Monocytes 0.6, Absolute Eosinophils 0.3, Absolute Basophils 0, PUBS MCHC 31.8 L 11/14/16 2130: CBC w Diff NO MAN DIFF REQ, RBC 3.24 L, MCV 83.5, MCH 26.3 L, RDW 22.0 H, MPV 8.8, Gran % 77.7 H, Lymphocytes % 10.0 L, Monocytes % 9.7 H, Eosinophils % 2.2, Basophils % 0.4, Absolute Granulocytes 7.2 H, Absolute Lymphocytes 0.9 L, Absolute Monocytes 0.9 H, Absolute Eosinophils 0.2, Absolute Basophils 0, PUBS MCHC 31.5 L 11/14/16 2000: CBC w Diff Cancelled, WBC Cancelled, RBC Cancelled, Hgb Cancelled, Hct Cancelled , MCV Cancelled, MCH Cancelled, RDW Cancelled, Plt Count Cancelled, MPV Cancelled, PUBS MCHC Cancelled 11/14/16 1550: CBC w Diff NO MAN DIFF REQ, RBC 3.42 L, MCV 84.2, MCH 26.6 L, RDW 22.7 H, MPV 9.0, Gran % 72.7, Lymphocytes % 14.6 L, Monocytes % 8.4, Eosinophils % 3.8, Basophils % 0.5, Absolute Granulocytes 5.5, Absolute Lymphocytes 1.1 L, Absolute Monocytes 0.6, Absolute Eosinophils 0.3, Absolute Basophils 0, PUBS MCHC 31.6 L 11/14/16 1145: Iron 27 L, TIBC 309, Ferritin 247.0, PT 20.2 H, INR 1.94 H, CBC w Diff NO MAN DIFF REQ, RBC 3.66 L, MCV 83.7, MCH 26.9 L, RDW 22.5 H, MPV 9.2, Gran % 73.8, Lymphocytes % 12.4 L, Monocytes % 9.0, Eosinophils % 4.3, Basophils % 0.5, Absolute Granulocytes 6.1, Absolute Lymphocytes 1.0 L, Absolute Monocytes 0.7 H, Absolute Eosinophils 0.4, Absolute Basophils 0, PUBS MCHC 32.2 L Impression/Plan Impression/Plan Impression/Plan: Impression 71 year old man with resolved acute blood loss anemia secondary to a bleeding polyp that was clipped. Plan -gi appreciated -resume a/c tomorrow if no bleeding -advance diet per gi -renal followup, cardio f/u -monitor platelets -f/u pathology -gi follow up as outpt TTS 35 min transfer to
--- NOTE | 2016-11-15 09:15 | PN- Nephrology ---
Assessment/Plan Assessment: 1. ESRD: no HD need today 2. Lower GI Bl: Hg lower but no active bleeding; if Hg drop <8 can transfuse 1 unit prbc w/o HD today Suggestion: 1. HD tomorrow 2. OK for floor from renal perspective 3. EPO w HD 4. IV Fe gluconate 125 mg w HD x 8 5. NO FLEETS enemas in ESRD Subjective Subjective: No further hematochezia Colonoscopy finding noted: bleeding polyp --> polypectomy No abd pain No CP or SOB Objective Vital Signs and I&Os Vital Signs Date Time Temp Pulse Resp B/P Pulse O2 O2 Flow FiO2 Ox Delivery Rate 11/15 0400 98 Nasal 2.0L Cannula 11/15 0000 98 Nasal 2.0L Cannula 11/15 0000 98.1 66 20 110/50 98 Nasal 2.0L Cannula 11/14 2000 100 Nasal 2.0L Cannula 11/14 1818 Room Air Room Air 11/14 1600 91 Room Air 11/14 1600 96.6 61 22 164/60 96 Room Air 11/14 1200 96 Room Air Intake & Output 11/15 1600 11/15 0400 11/14 1600 11/14 0400 11/13 1600 11/13 0400 Intake Total 084 367 6406 Output Total 100 1050 795 Balance 100 -950 1805 Intake, Blood 500 Product Intake, IV 100 Intake, Oral 114 922 1729 Number 2 14 Bowel Movements Output, 1000 Dialysate Output, Stool 475 Output, Urine 100 50 320 Patient 189 lb 190 lb 188 lb Weight Physical Exam General Appearance: well developed/nourished, no apparent distress Head: atraumatic, normal appearance Neck: R IJ tunneled HD cath Respiratory: occ expir rhonchi/wheeze Cardiovascular: regular rate/rhythm, friction rub (none) Abdomen: soft, non-tender Extremities: no edema Current Medications: Current Medications Sig/Johnna Start time Last Medication Dose Route Stop Time Status Admin Albuterol Sulfate 3 ML Q4P PRN 11/14 1715 AC 11/14 INH 1705 Atorvastatin Calcium 10 MG 1700 11/14 1700 AC 11/14 PO 1920 Budesonide/ 2 PUF BID 11/14 1000 CAN Formoterol Fumarate INH Chlorhexidine 1 GM .STK-MED ONE 11/14 1515 DC Gluconate TOP 11/14 1516 Epoetin Guzman 6,000 UNIT MoWeFr PRN 11/14 1630 AC IV Ferrous Sulfate 325 MG BID 11/14 1000 CAN PO Folic Acid 1 MG DAILY 11/14 1000 AC 11/15 PO 0821 Insulin Aspart 0 TIDAC 11/15 0800 AC SC Insulin Human Regular 0 TIDAC 11/15 0800 CAN SC Insulin Human Regular 0 Q6 11/14 1800 DC SC 11/15 0600 Oxycodone/ 1 TAB Q6P PRN 11/13 2345 AC Acetaminophen PO Oxycodone/ 2 TAB Q6P PRN 11/13 2345 AC Acetaminophen PO Paricalcitol 2 MCG MoWeFr PRN 11/14 1630 AC IV Sodium Phosphate 1 UNIT ONCE ONE 11/14 1145 DC 11/14 IN 11/14 1146 1230 Sodium Phosphate 1 UNIT ONCE ONE 11/14 1145 DC 11/14 IN 11/14 1146 1306 Results Pertinent Lab Results: Laboratory Tests 11/15 11/14 0635 2130 Chemistry Sodium (137 - 145 mmol/L) 140 Potassium (3.5 - 5.1 mmol/L) 3.7 Chloride (98 - 107 mmol/L) 99 Carbon Dioxide (22 - 30 mmol/L) 27 Anion Gap (5 - 16) 13 BUN (9 - 20 mg/dL) 23 H Creatinine (0.7 - 1.2 mg/dL) 2.9 H Estimated GFR (>60 ml/min) 22 L Glucose (65 - 99 mg/dL) 111 H Calcium (8.4 - 10.2 mg/dL) 8.7 Phosphorus (2.5 - 4.5 mg/dL) 3.9 Magnesium (1.6 - 2.3 mg/dL) 1.7 Total Bilirubin (0.2 - 1.3 mg/dL) 0.4 AST (17 - 59 U/L) 20 ALT (21 - 72 U/L) 36 Albumin (3.5 - 5.0 g/dL) 3.2 L Coagulation PT (9.4 - 12.5 SEC) 17.3 H INR (0.90 - 1.17) 1.66 H Hematology CBC w Diff NO MAN DIFF REQ NO MAN DIFF REQ WBC (4.8 - 10.8 /CUMM) 7.9 9.3 RBC (4.70 - 6.10 /CUMM) 3.14 L 3.24 L Hgb (14.0 - 18.0 G/DL) 8.4 L 8.5 L Hct (42 - 52 %) 26.5 L 27.1 L MCV (80.0 - 94.0 FL) 84.3 83.5 MCH (27.0 - 31.0 PG) 26.8 L 26.3 L RDW (11.5 - 14.5 %) 22.5 H 22.0 H Plt Count (130 - 400 /CUMM) 99 L 103 L MPV (7.4 - 10.4 FL) 9.2 8.8 Gran % (42.2 - 75.2 %) 74.1 77.7 H Lymphocytes % (20.5 - 51.1 %) 14.6 L 10.0 L Monocytes % (1.7 - 9.3 %) 7.6 9.7 H Eosinophils % (0 - 5 %) 3.4 2.2 Basophils % (0.0 - 2.0 %) 0.3 0.4 Absolute Granulocytes (1.4 - 6.5 /CUMM) 5.9 7.2 H Absolute Lymphocytes (1.2 - 3.4 /CUMM) 1.2 0.9 L Absolute Monocytes (0.10 - 0.60 /CUMM) 0.6 0.9 H Absolute Eosinophils (0.0 - 0.7 /CUMM) 0.3 0.2 Absolute Basophils (0.0 - 0.2 /CUMM) 0 0 PUBS MCHC (33.0 - 37.0 G/DL) 31.8 L 31.5 L 11/14 1550 Hematology CBC w Diff Cancelled NO MAN DIFF REQ WBC (4.8 - 10.8 /CUMM) Cancelled 7.6 RBC (4.70 - 6.10 /CUMM) Cancelled 3.42 L Hgb (14.0 - 18.0 G/DL) Cancelled 9.1 L Hct (42 - 52 %) Cancelled 28.8 L MCV (80.0 - 94.0 FL) Cancelled 84.2 MCH (27.0 - 31.0 PG) Cancelled 26.6 L RDW (11.5 - 14.5 %) Cancelled 22.7 H Plt Count (130 - 400 /CUMM) Cancelled 111 L MPV (7.4 - 10.4 FL) Cancelled 9.0 Gran % (42.2 - 75.2 %) 72.7 Lymphocytes % (20.5 - 51.1 %) 14.6 L Monocytes % (1.7 - 9.3 %) 8.4 Eosinophils % (0 - 5 %) 3.8 Basophils % (0.0 - 2.0 %) 0.5 Absolute Granulocytes (1.4 - 6.5 /CUMM) 5.5 Absolute Lymphocytes (1.2 - 3.4 /CUMM) 1.1 L Absolute Monocytes (0.10 - 0.60 /CUMM) 0.6 Absolute Eosinophils (0.0 - 0.7 /CUMM) 0.3 Absolute Basophils (0.0 - 0.2 /CUMM) 0 PUBS MCHC (33.0 - 37.0 G/DL) Cancelled 31.6 L 11/14 11/14 1145 0434 Chemistry Sodium (137 - 145 mmol/L) 144 Potassium (3.5 - 5.1 mmol/L) 3.8 Chloride (98 - 107 mmol/L) 106 Carbon Dioxide (22 - 30 mmol/L) 22 Anion Gap (5 - 16) 16 BUN (9 - 20 mg/dL) 52 H Creatinine (0.7 - 1.2 mg/dL) 5.0 H Estimated GFR (>60 ml/min) 11 L Glucose (65 - 99 mg/dL) 161 H Lactic Acid (0.7 - 2.1 mmol/L) 0.9 Calcium (8.4 - 10.2 mg/dL) 8.3 L Phosphorus (2.5 - 4.5 mg/dL) 5.5 H Magnesium (1.6 - 2.3 mg/dL) 1.9 Iron (49 - 181 ug/dL) 27 L TIBC (261 - 462 ug/dL) 309 Ferritin (17.9 - 464 ng/mL) 247.0 Total Bilirubin (0.2 - 1.3 mg/dL) 0.2 AST (17 - 59 U/L) 17 ALT (21 - 72 U/L) 23 Albumin (3.5 - 5.0 g/dL) 3.0 L Coagulation PT (9.4 - 12.5 SEC) 20.2 H 25.2 H INR (0.90 - 1.17) 1.94 H 2.42 H Hematology CBC w Diff NO MAN DIFF REQ NO MAN DIFF REQ WBC (4.8 - 10.8 /CUMM) 8.3 8.4 RBC (4.70 - 6.10 /CUMM) 3.66 L 3.67 L Hgb (14.0 - 18.0 G/DL) 9.8 L 9.7 L Hct (42 - 52 %) 30.6 L 31.1 L MCV (80.0 - 94.0 FL) 83.7 84.7 MCH (27.0 - 31.0 PG) 26.9 L 26.4 L RDW (11.5 - 14.5 %) 22.5 H 23.0 H Plt Count (130 - 400 /CUMM) 114 L 118 L MPV (7.4 - 10.4 FL) 9.2 9.0 Gran % (42.2 - 75.2 %) 73.8 71.6 Lymphocytes % (20.5 - 51.1 %) 12.4 L 15.2 L Monocytes % (1.7 - 9.3 %) 9.0 8.6 Eosinophils % (0 - 5 %) 4.3 3.8 Basophils % (0.0 - 2.0 %) 0.5 0.8 Absolute Granulocytes (1.4 - 6.5 /CUMM) 6.1 6.0 Absolute Lymphocytes (1.2 - 3.4 /CUMM) 1.0 L 1.3 Absolute Monocytes (0.10 - 0.60 /CUMM) 0.7 H 0.7 H Absolute Eosinophils (0.0 - 0.7 /CUMM) 0.4 0.3 Absolute Basophils (0.0 - 0.2 /CUMM) 0 0.1 PUBS MCHC (33.0 - 37.0 G/DL) 32.2 L 31.1 L 11/14 11/13 11/13 0128 2125 2123 Chemistry Sodium (137 - 145 mmol/L) 144 Potassium (3.5 - 5.1 mmol/L) 4.0 Chloride (98 - 107 mmol/L) 104 Carbon Dioxide (22 - 30 mmol/L) 22 Anion Gap (5 - 16) 18 H BUN (9 - 20 mg/dL) 50 H Creatinine (0.7 - 1.2 mg/dL) 4.8 H Estimated GFR (>60 ml/min) 12 L BUN/Creatinine Ratio (7 - 25 %) 10.4 Glucose (65 - 99 mg/dL) 108 H Calcium (8.4 - 10.2 mg/dL) 8.5 Magnesium (1.6 - 2.3 mg/dL) 1.5 L Total Bilirubin (0.2 - 1.3 mg/dL) 0.3 AST (17 - 59 U/L) 19 ALT (21 - 72 U/L) 17 L Alkaline Phosphatase (< 127 U/L) 104 Troponin I (<0.11 ng/ml) 0.04 Total Protein (6.3 - 8.2 g/dL) 6.2 L Albumin (3.5 - 5.0 g/dL) 3.6 Globulin (1.9 - 4.2 gm/dL) 2.6 Albumin/Globulin Ratio (1.1 - 2.2 %) 1.4 Coagulation PT (9.4 - 12.5 SEC) 23.9 H INR (0.90 - 1.17) 2.29 H APTT (25 - 37 SEC) 42 H Hematology CBC w Diff NO MAN DIFF REQ WBC (4.8 - 10.8 /CUMM) 8.8 RBC (4.70 - 6.10 /CUMM) 4.05 L Hgb (14.0 - 18.0 G/DL) 10.8 L Hct (42 - 52 %) 33.8 L MCV (80.0 - 94.0 FL) 83.4 MCH (27.0 - 31.0 PG) 26.7 L RDW (11.5 - 14.5 %) 22.4 H Plt Count (130 - 400 /CUMM) 130 MPV (7.4 - 10.4 FL) 9.5 Gran % (42.2 - 75.2 %) 70.9 Lymphocytes % (20.5 - 51.1 %) 14.7 L Monocytes % (1.7 - 9.3 %) 9.6 H Eosinophils % (0 - 5 %) 3.8 Basophils % (0.0 - 2.0 %) 1.0 Absolute Granulocytes (1.4 - 6.5 /CUMM) 6.2 Absolute Lymphocytes (1.2 - 3.4 /CUMM) 1.3 Absolute Monocytes (0.10 - 0.60 /CUMM) 0.8 H Absolute Eosinophils (0.0 - 0.7 /CUMM) 0.3 Absolute Basophils (0.0 - 0.2 /CUMM) 0.1 PUBS MCHC (33.0 - 37.0 G/DL) 32.0 L 11/13 2039 Hematology CBC w Diff NO MAN DIFF REQ WBC (4.8 - 10.8 /CUMM) 9.2 RBC (4.70 - 6.10 /CUMM) 4.33 L Hgb (14.0 - 18.0 G/DL) 11.5 L Hct (42 - 52 %) 36.0 L MCV (80.0 - 94.0 FL) 83.2 MCH (27.0 - 31.0 PG) 26.6 L RDW (11.5 - 14.5 %) 23.5 H Plt Count (130 - 400 /CUMM) 167 MPV (7.4 - 10.4 FL) 9.0 Gran % (42.2 - 75.2 %) 71.1 Lymphocytes % (20.5 - 51.1 %) 15.6 L Monocytes % (1.7 - 9.3 %) 9.2 Eosinophils % (0 - 5 %) 3.9 Basophils % (0.0 - 2.0 %) 0.2 Absolute Granulocytes (1.4 - 6.5 /CUMM) 6.5 Absolute Lymphocytes (1.2 - 3.4 /CUMM) 1.4 Absolute Monocytes (0.10 - 0.60 /CUMM) 0.8 H Absolute Eosinophils (0.0 - 0.7 /CUMM) 0.4 Absolute Basophils (0.0 - 0.2 /CUMM) 0 PUBS MCHC (33.0 - 37.0 G/DL) 32.0 L
--- NOTE | 2016-11-15 10:41 | PN- Resident CRCU ---
Subjective HPI/CRCU Issues: Patient seen and examined. He is seen sitting upright in bed resting comfortably. He denies any abdominal pain, nausea or further bloody bowel movements. He reports a formed, brown bowel movement this morning. He tolerated his clear liquid diet this morning well and is asking for "real food". Otherwise he denies any headache, fever, chills, chest pain, palpitations, shortness of breath, vomiting, diarrhea. No overnight events reported. Objective Vital Signs & I&O Last 8 Hrs of Vitals and I&O: Vitals: - Temperature: 98.1 - Heart Rate: 58-64 - Respiratory Rate: 9-29 - Systolic Blood pressure: 102-131 - Diastolic Blood pressure: 36-58 - Oxygen Saturation: 96-99% Exam General Appearance: well developed/nourished, no apparent distress, alert, awake , comfortable, obese Other Physical Findings: General -well-developed, well-nourished obese elderly male in no acute distress HEENT - NCAT, PERRL, EOMI, anicteric sclera Cardio/Chest - S1, S2 w/o murmurs/gallops/rubs, dialysis catheter in place Resp - CTA bilaterally w/o wheezing/rhochi/crackles GI -soft, obese, mildly distended, nontender, bowel sounds present Neuro - Awake and alert, CN II - XII grossly intact Extremities-1+ pulses in bilateral lower extremities, no edema Current Medications: Current Medications Sig/Johnna Start time Last Medication Dose Route Stop Time Status Admin Albuterol Sulfate 3 ML Q4P PRN 11/14 1715 AC 11/14 INH 1705 Atorvastatin Calcium 10 MG 1700 11/14 1700 AC 11/14 PO 1920 Chlorhexidine 1 GM .STK-MED ONE 11/14 1515 DC Gluconate TOP 11/14 1516 Epoetin Guzman 6,000 UNIT MoWeFr PRN 11/14 1630 AC IV Ferric Sodium 125 MG 11/16 1000 UNir Gluconate Complex IV 12/02 1001 Folic Acid 1 MG DAILY 11/14 1000 AC 11/15 PO 0821 Insulin Aspart 0 TIDAC 11/15 0800 AC SC Insulin Human Regular 0 TIDAC 11/15 0800 CAN SC Insulin Human Regular 0 Q6 11/14 1800 DC SC 11/15 0600 Oxycodone/ 1 TAB Q6P PRN 11/13 2345 AC Acetaminophen PO Oxycodone/ 2 TAB Q6P PRN 11/13 2345 AC Acetaminophen PO Paricalcitol 2 MCG MoWeFr PRN 11/14 1630 AC IV Sodium Phosphate 1 UNIT ONCE ONE 11/14 1145 DC 11/14 MT 11/14 1146 1230 Sodium Phosphate 1 UNIT ONCE ONE 11/14 1145 DC 11/14 MT 11/14 1146 1306 Impression/Plan Impression/Problem List Impression: Patient reports improvement of his bloody bowel movements and denies having any further episodes overnight. Additionally he denies any dizziness, vomiting, or nausea. He tolerated the colonoscopy and hemodialysis while yesterday without requiring any blood products. He is to resume aspirin this evening and should he tolerate that well Coumadin in the morning permitted that he does not experience any further episodes of bright red blood per rectum. His diet was advanced from clear liquids to a solid diet. He is to be transferred to the general medicine floor once a bed is available. Problem list: -BRBPR secondary to bleeding polyp s/p colonoscopy with clipping, now stable -ESRD on hemodialysis -History of atrial fibrillation, on Coumadin (currently held) Gastrointestinal: Patient with multiple medical problems and no history of gastrointestinal disease presenting for evaluation of several episodes of bright red blood per rectum. Patient was admitted to the intensive care unit for observation and preparation for colonoscopy. He continued to have minor bowel movements containing bright red blood prior to the procedure. A bleeding polyp was identified during colonoscopy which was subsequently clipped without any evidence of further rebleeding. -Typed and crossed, consent for blood transfusion placed in chart -FFP transfused: 2 -PRBC transfused: 0 -GI consult following -Pathology follow-up and repeat colonoscopy in 3-6 months as outpatient Nephrology: Patient with a history of end-stage renal disease on hemodialysis. -Dialysis MWF -Folic Acid 1mg PO Daily -Ferrlecit 125mg IV with dialysis -Epogen 6,000U IV with dialysis -Paricalcitol 2mcg IV with dialysis -Nephrology consult following Cardiovascular: Patient with a history of chronic diastolic heart failure, coronary artery disease status post CABG and pacemaker, and atrial fibrillation on Coumadin. -Pravastatin 10mg PO daily -Cardiology consult following -Daily INR, dose coumadin when restarted Endocrinology: Patient with a history of insulin-dependent diabetes mellitus. -Accuchecks -NovoLog sliding scale insulin 3 times a day before meals Pain plan: -Percocet 1 tablet by mouth every 6 hours as needed for pain 4-6 -Percocet 2 tablet by mouth every 6 hours as needed for pain 7-10 Diet - Renal dialysis diet with sodium restriction DVT PPx - ALPS Code Status - FULL CODE Problem List: 1. Bright red blood per rectum Pain Ratin Tomorrow's Labs & Rationales: CBC - BRBPR ICU - ESRD on HD INR - AFib on Coumadin Plan DVT/Prophylaxis: mechanical
--- NOTE | 2016-11-15 15:22 | PN- Cardiology ---
Subjective Subjective: The patient is status post colonoscopy. Lower GI bleed was found to be secondary to a bleeding polyp which was removed. He is now doing better with no further bleeding. No chest pain. No palpitations. No shortness of breath. No diaphoresis. Objective Vital Signs and I&Os Vital Signs Date Time Temp Pulse Resp B/P Pulse O2 O2 Flow FiO2 Ox Delivery Rate 11/15 08 97.9 60 16 126/60 99 Room Air 11/15 0800 99 Room Air 11/15 0400 98 Nasal 2.0L Cannula 11/15 0000 98 Nasal 2.0L Cannula 11/15 0000 98.1 66 20 110/50 98 Nasal 2.0L Cannula 11/14 2000 100 Nasal 2.0L Cannula 11/14 1818 Room Air Room Air 11/14 1600 91 Room Air 11/14 1600 96.6 61 22 164/60 96 Room Air Intake & Output 11/15 1600 11/15 0800 11/15 0000 11/14 1600 11/14 0800 11/14 0000 Intake Total 320 200 938 646 3934 Output Total 50 100 1050 795 Balance 270 100 -989 980 1450 Intake, Blood 500 Product Intake, IV 100 Intake, Oral 320 386 444 3960 Number 2 2 14 Bowel Movements Output, 1000 Dialysate Output, Stool 475 Output, Urine 50 100 50 320 Patient 189 lb 190 lb 184 lb Weight Physical Exam: Gen: The patient is in no acute distress HEENT: Normal nose, ears, and oropharynx. Pupils equal bilaterally. Conjunctiva normal. Neck: Supple with no JVD, no masses, and no thyromegaly Lungs: Clear to auscultation with normal respiratory effort Heart: RRR, S1, S2, 2/6 systolic murmur. Trace peripheral edema, 1+ pulses in the lower extremities bilaterally Abdomen: Soft, nontender, no masses. No hepatomegaly. No splenomegaly Extremities: No clubbing or cyanosis. Normal muscle strength in the upper and lower extremities Skin: Normal skin turgor with no skin ulcers or lesions noted. Current Medications: Current Medications Sig/Johnna Start time Last Medication Dose Route Stop Time Status Admin Albuterol Sulfate 3 ML Q4P PRN 11/14 1715 AC 11/14 INH 1705 Aspirin 81 MG DAILY 11/15 170 AC PO Atorvastatin Calcium 10 MG 1700 11/14 1700 AC 11/14 PO 1920 Epoetin Guzman 6,000 UNIT MoWeFr PRN 11/14 1630 AC IV Ferric Sodium 125 MG 11/16 1000 DC Gluconate Complex IV 12/02 1001 Ferric Sodium 125 MG MoWeFr 11/16 1000 AC Gluconate Complex IV 12/02 1059 Sodium Chloride 100 ML Folic Acid 1 MG DAILY 11/14 1000 AC 11/15 PO 0821 Insulin Aspart 0 TIDAC 11/15 0800 AC 11/15 SC 1247 Insulin Human Regular 0 TIDAC 11/15 0800 CAN SC Insulin Human Regular 0 Q6 11/14 1800 DC SC 11/15 0600 Oxycodone/ 1 TAB Q6P PRN 11/13 2345 AC Acetaminophen PO Oxycodone/ 2 TAB Q6P PRN 11/13 2345 AC Acetaminophen PO Paricalcitol 2 MCG MoWeFr PRN 11/14 1630 AC IV Results Last 48 Hrs of Labs/Mics: Laboratory Tests 11/15/16 0635: Anion Gap 13, Estimated GFR 22 L, Glucose 111 H, Calcium 8.7, Phosphorus 3.9, Magnesium 1.7, Total Bilirubin 0.4, AST 20, ALT 36, Albumin 3.2 L, PT 17.3 H, INR 1.66 H, CBC w Diff NO MAN DIFF REQ, RBC 3.14 L, MCV 84.3, MCH 26.8 L, RDW 22.5 H, MPV 9.2, Gran % 74.1, Lymphocytes % 14.6 L, Monocytes % 7.6, Eosinophils % 3.4, Basophils % 0.3, Absolute Granulocytes 5.9, Absolute Lymphocytes 1.2, Absolute Monocytes 0.6, Absolute Eosinophils 0.3, Absolute Basophils 0, PUBS MCHC 31.8 L 11/14/16 2130: CBC w Diff NO MAN DIFF REQ, RBC 3.24 L, MCV 83.5, MCH 26.3 L, RDW 22.0 H, MPV 8.8, Gran % 77.7 H, Lymphocytes % 10.0 L, Monocytes % 9.7 H, Eosinophils % 2.2, Basophils % 0.4, Absolute Granulocytes 7.2 H, Absolute Lymphocytes 0.9 L, Absolute Monocytes 0.9 H, Absolute Eosinophils 0.2, Absolute Basophils 0, PUBS MCHC 31.5 L 11/14/161999: CBC w Diff Cancelled, WBC Cancelled, RBC Cancelled, Hgb Cancelled, Hct Cancelled , MCV Cancelled, MCH Cancelled, RDW Cancelled, Plt Count Cancelled, MPV Cancelled, PUBS MCHC Cancelled 11/14/16 1550: CBC w Diff NO MAN DIFF REQ, RBC 3.42 L, MCV 84.2, MCH 26.6 L, RDW 22.7 H, MPV 9.0, Gran % 72.7, Lymphocytes % 14.6 L, Monocytes % 8.4, Eosinophils % 3.8, Basophils % 0.5, Absolute Granulocytes 5.5, Absolute Lymphocytes 1.1 L, Absolute Monocytes 0.6, Absolute Eosinophils 0.3, Absolute Basophils 0, PUBS MCHC 31.6 L 11/14/16 1145: Iron 27 L, TIBC 309, Ferritin 247.0, PT 20.2 H, INR 1.94 H, CBC w Diff NO MAN DIFF REQ, RBC 3.66 L, MCV 83.7, MCH 26.9 L, RDW 22.5 H, MPV 9.2, Gran % 73.8, Lymphocytes % 12.4 L, Monocytes % 9.0, Eosinophils % 4.3, Basophils % 0.5, Absolute Granulocytes 6.1, Absolute Lymphocytes 1.0 L, Absolute Monocytes 0.7 H, Absolute Eosinophils 0.4, Absolute Basophils 0, PUBS MCHC 32.2 L 11/14/16 0434: Anion Gap 16, Estimated GFR 11 L, Glucose 161 H, Lactic Acid 0.9, Calcium 8.3 L, Phosphorus 5.5 H, Magnesium 1.9, Total Bilirubin 0.2, AST 17, ALT 23, Albumin 3.0 L, PT 25.2 H, INR 2.42 H, CBC w Diff NO MAN DIFF REQ, RBC 3.67 L , MCV 84.7, MCH 26.4 L, RDW 23.0 H, MPV 9.0, Gran % 71.6, Lymphocytes % 15.2 L, Monocytes % 8.6, Eosinophils % 3.8, Basophils % 0.8, Absolute Granulocytes 6.0, Absolute Lymphocytes 1.3, Absolute Monocytes 0.7 H, Absolute Eosinophils 0.3, Absolute Basophils 0.1, PUBS MCHC 31.1 L 11/14/16 0128: CBC w Diff NO MAN DIFF REQ, RBC 4.05 L, MCV 83.4, MCH 26.7 L, RDW 22.4 H, MPV 9.5, Gran % 70.9, Lymphocytes % 14.7 L, Monocytes % 9.6 H, Eosinophils % 3.8, Basophils % 1.0, Absolute Granulocytes 6.2, Absolute Lymphocytes 1.3, Absolute Monocytes 0.8 H, Absolute Eosinophils 0.3, Absolute Basophils 0.1, PUBS MCHC 32.0 L 11/13/162124: PT 23.9 H, INR 2.29 H, APTT 42 H 11/13/162122: Anion Gap 18 H, Estimated GFR 12 L, BUN/Creatinine Ratio 10.4, Glucose 108 H, Calcium 8.5, Magnesium 1.5 L, Total Bilirubin 0.3, AST 19, ALT 17 L, Alkaline Phosphatase 104, Troponin I 0.04, Total Protein 6.2 L, Albumin 3.6, Globulin 2.6, Albumin/Globulin Ratio 1.4 11/13/162039: CBC w Diff NO MAN DIFF REQ, RBC 4.33 L, MCV 83.2, MCH 26.6 L, RDW 23.5 H, MPV 9.0, Gran % 71.1, Lymphocytes % 15.6 L, Monocytes % 9.2, Eosinophils % 3.9, Basophils % 0.2, Absolute Granulocytes 6.5, Absolute Lymphocytes 1.4, Absolute Monocytes 0.8 H, Absolute Eosinophils 0.4, Absolute Basophils 0, PUBS MCHC 32.0 L Microbiology 11/14 29 UPPER RESP: Surveillance Culture - COMP 11/14 29 GI: Surveillance Culture - COMP Assessment/Plan Assessment/Plan Assessment: 1. Coronary artery disease, status post CABG 2. Mildly decreased left ventricle systolic function 3. Paroxysmal atrial fibrillation, anticoagulated on warfarin 4. End-stage renal disease 5. GI bleed on warfarin Plan: * Restart aspirin today and warfarin tomorrow as per GI if no further bleeding. * Continue other cardiac medications. Continue telemetry? Not applicable
[2016-11-15 15:58] LABS: ABSOLUTE BASOPHIL COUNT 0 /CUMM (0.0-0.2); ABSOLUTE EOSINOPHIL COUNT 0.3 /CUMM (0.0-0.7); ABSOLUTE LYMPH COUNT 1.3 /CUMM (1.2-3.4); ABSOLUTE MONOCYTE COUNT 0.6 /CUMM (0.10-0.60)
[2016-11-15 16:00] VITALS: BP 128/62
[2016-11-15 16:01] LABS: BASOPHIL % 0.2 % (0.0-2.0); EOSINOPHIL % 3.2 % (0-5); GRANULOCYTE % 73.1 % (42.2-75.2); HEMATOCRIT 27.3 % (42-52); MEAN CORPUSCULAR HGB 26.9 PG (27.0-31.0); MEAN CORPUSCULAR HGB CONC 31.9 G/DL (33.0-37.0); MEAN CORPUSCULAR VOLUME 84.3 FL (80.0-94.0); PLATELET COUNT 79 /CUMM (130-400); RBC DISTRIBUTION WIDTH 22.8 % (11.5-14.5); RED BLOOD CELL CT 3.24 /CUMM (4.70-6.10); WHITE BLOOD CELL COUNT 8.2 /CUMM (4.8-10.8)
[2016-11-16] VITALS: BP 150/60
--- NOTE | 2016-11-16 02:11 | NUR ---
PT RESTING AT THIS TIME EARLIER WAS ANXIOUS OVER IV IN R AC, IV PATENT BUT REMOVED REQUESTED BY PT
[2016-11-16 08:00] VITALS: BP 162/56
--- NOTE | 2016-11-16 08:19 | Patient Discharge Instructions ---
Discharge Instructions General Discharge Information Special Instructions: Continue all your old home medications including aspirin and coumadin. Monitor for further bleeding, call 911 or return to the ED should your symptoms recur or worsen. Follow up with Dr. Pederson of [facility] for further evaluation. Follow up with your primary care provider after discharge regarding your recent hospital stay. Patient INR on discharge was 1.41. Coumadin 5mg was given prior to discharge. Please follow up coumadin and dose accordingly after discharge. Acute Coronary Syndrome Inclusion Criteria At DC or during hospital stay patient has or had the following: ACS DIAGNOSIS No Discharge Core Measures Meds if any: Prescribed or Continued at Discharge Meds if any: NOT Prescribed or Continued at Discharge Congestive Heart Failure Inclusion Criteria At DC or during hospital stay patient has or had the following: CHF DIAGNOSIS No Discharge Core Measures Meds if any: Prescribed or Continued at Discharge Meds if any: NOT Prescribed or Continued at Discharge Cerebrovascular accident Inclusion Criteria At DC or during hospital stay patient has or had the following: CVA/TIA Diagnosis No Discharge Core Measures Meds if any: Prescribed or Continued at Discharge Meds if any: NOT Prescribed or Continued at Discharge Venous thromboembolism Inclusion Criteria VTE Diagnosis No VTE Type NONE VTE Confirmed by (Test) NONE Discharge Core Measures - Per Current guidelines, there needs to be overlap - treatment for the first 5 days of Warfarin therapy. - If discharged on Warfarin prior to 5 days of - overlap therapy, the patient will need to be - assessed for post discharge needs including - *Post discharge parental anticoagulation - *Warfarin and/or parental anticoagulation education - *Follow up date to check INR post discharge At least 5 days overlap therapy as Inpatient No Meds if any: Prescribed or Continued at Discharge Note: Overlap Therapy is Warfarin and Anticoagulant Meds if any: NOT Prescribed or Continued at Discharge
--- NOTE | 2016-11-16 08:41 | PN- Gastroenterology ---
Assessment/Plan Assessment/Recommendations: Assessment: Mr. Arias is a 71-year-old male with end-stage renal disease and atrial fibrillation on Coumadin who was admitted 3 nights ago with a lower GI bleed found to be secondary to a bleeding pedunculated polyp which was removed on colonoscopy 2 days ago with subsequent resolution of his bleeding. He has been hemodynamically stable and his hemoglobin has been stable for the past 48 hours. 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 He should still have a full repeat colonoscopy as an outpatient with a better bowel preparation which can be done in a few months. Recommendations: 1. Diet as tolerated. 2. Would resume baby aspirin if indicated for cardiac prophylaxis and would also restart Coumadin today if his INR is not therapeutic. 3. Follow CBCs and transfuse as needed to keep his hemoglobin greater than 7 or as per cardiology recommendations. 4. Notify GI for any signs of active recurrent bleeding, but if he remains without active bleeding it would be reasonable to discharge him home after dialysis today.. 6. He should follow up as an outpatient to arrange for a repeat colonoscopy with a better bowel preparation I will sign off at this time please recontact GI for any new or recurrent GI issues. Problem List: 1. GI bleed 2. Bright red blood per rectum 3. Anemia Subjective Subjective: Patient is tolerating a full diet. He has not had any further rectal bleeding since the colonoscopy 2 days ago. He denies any abdominal pain, nausea or vomiting. Objective Vital Signs and I&Os Vital Signs Date Time Temp Pulse Resp B/P Pulse O2 O2 Flow FiO2 Ox Delivery Rate 11/16 0000 98.2 63 20 150/60 95 Room Air 11/15 2030 93 Room Air Room Air 11/15 1600 97.6 65 18 128/62 97 Room Air 11/15 1000 95 Room Air Intake & Output 11/16 1600 11/16 0400 11/15 1600 11/15 0400 11/14 1600 11/14 0400 Intake Total 100 490 438 934 6760 Output Total 370 537 2272 795 Balance 100 390 490 -950 1805 Intake, Blood 500 Product Intake, IV 100 Intake, Oral 100 490 663 287 1521 Number 4 2 14 Bowel Movements Output, 1000 Dialysate Output, Stool 475 Output, Urine 100 150 50 320 Patient 189 lb 190 lb 188 lb Weight Physical Exam General Appearance: well developed/nourished, no apparent distress, comfortable Head: atraumatic, normal appearance Neck: normal inspection, supple, full range of motion Respiratory: normal breath sounds, chest non-tender Cardiovascular: irregularly irregular Abdomen: normal bowel sounds, soft, non-tender Extremities: normal inspection Neurologic/Psychiatric: no motor/sensory deficits, awake, alert, oriented x 3 Current Medications: Current Medications Sig/Johnna Start time Last Medication Dose Route Stop Time Status Admin Albuterol Sulfate 3 ML Q4P PRN 11/14 1715 AC 11/14 INH 1705 Aspirin 81 MG DAILY 11/15 1700 AC 11/15 PO 1619 Atorvastatin Calcium 10 MG 1700 11/14 1700 AC 11/15 PO 1619 Epoetin Guzman 6,000 UNIT MoWeFr PRN 11/14 1630 AC IV Ferric Sodium 125 MG 11/16 1000 DC Gluconate Complex IV 12/02 1001 Ferric Sodium 125 MG MoWeFr 11/16 1000 AC Gluconate Complex IV 12/02 1059 Sodium Chloride 100 ML Folic Acid 1 MG DAILY 11/14 1000 AC 11/15 PO 0821 Insulin Aspart 0 TIDAC 11/15 0800 AC 11/15 SC 1625 Oxycodone/ 1 TAB Q6P PRN 11/13 2345 AC Acetaminophen PO Oxycodone/ 2 TAB Q6P PRN 11/13 2345 AC Acetaminophen PO Paricalcitol 2 MCG MoWeFr PRN 11/14 1630 AC IV Results Pertinent Lab Results: Laboratory Tests 11/15 11/15 1500 0635 Chemistry Sodium (137 - 145 mmol/L) 140 Potassium (3.5 - 5.1 mmol/L) 3.7 Chloride (98 - 107 mmol/L) 99 Carbon Dioxide (22 - 30 mmol/L) 27 Anion Gap (5 - 16) 13 BUN (9 - 20 mg/dL) 23 H Creatinine (0.7 - 1.2 mg/dL) 2.9 H Estimated GFR (>60 ml/min) 22 L Glucose (65 - 99 mg/dL) 111 H Calcium (8.4 - 10.2 mg/dL) 8.7 Phosphorus (2.5 - 4.5 mg/dL) 3.9 Magnesium (1.6 - 2.3 mg/dL) 1.7 Total Bilirubin (0.2 - 1.3 mg/dL) 0.4 AST (17 - 59 U/L) 20 ALT (21 - 72 U/L) 36 Albumin (3.5 - 5.0 g/dL) 3.2 L Coagulation PT (9.4 - 12.5 SEC) 17.3 H INR (0.90 - 1.17) 1.66 H Hematology CBC w Diff Pending NO MAN DIFF REQ WBC (4.8 - 10.8 /CUMM) 8.2 7.9 RBC (4.70 - 6.10 /CUMM) 3.24 L 3.14 L Hgb (14.0 - 18.0 G/DL) 8.7 L 8.4 L Hct (42 - 52 %) 27.3 L 26.5 L MCV (80.0 - 94.0 FL) 84.3 84.3 MCH (27.0 - 31.0 PG) 26.9 L 26.8 L RDW (11.5 - 14.5 %) 22.8 H 22.5 H Plt Count (130 - 400 /CUMM) 79 L 99 L MPV (7.4 - 10.4 FL) 11.0 H 9.2 Gran % (42.2 - 75.2 %) 73.1 74.1 Lymphocytes % (20.5 - 51.1 %) 15.6 L 14.6 L Monocytes % (1.7 - 9.3 %) 7.9 7.6 Eosinophils % (0 - 5 %) 3.2 3.4 Basophils % (0.0 - 2.0 %) 0.2 0.3 Absolute Granulocytes (1.4 - 6.5 /CUMM) 6.0 5.9 Absolute Lymphocytes (1.2 - 3.4 /CUMM) 1.3 1.2 Absolute Monocytes (0.10 - 0.60 /CUMM) 0.6 0.6 Absolute Eosinophils (0.0 - 0.7 /CUMM) 0.3 0.3 Absolute Basophils (0.0 - 0.2 /CUMM) 0 0 PUBS MCHC (33.0 - 37.0 G/DL) 31.9 L 31.8 L 11/140 1999 Hematology CBC w Diff NO MAN DIFF REQ Cancelled WBC (4.8 - 10.8 /CUMM) 9.3 Cancelled RBC (4.70 - 6.10 /CUMM) 3.24 L Cancelled Hgb (14.0 - 18.0 G/DL) 8.5 L Cancelled Hct (42 - 52 %) 27.1 L Cancelled MCV (80.0 - 94.0 FL) 83.5 Cancelled MCH (27.0 - 31.0 PG) 26.3 L Cancelled RDW (11.5 - 14.5 %) 22.0 H Cancelled Plt Count (130 - 400 /CUMM) 103 L Cancelled MPV (7.4 - 10.4 FL) 8.8 Cancelled Gran % (42.2 - 75.2 %) 77.7 H Lymphocytes % (20.5 - 51.1 %) 10.0 L Monocytes % (1.7 - 9.3 %) 9.7 H Eosinophils % (0 - 5 %) 2.2 Basophils % (0.0 - 2.0 %) 0.4 Absolute Granulocytes (1.4 - 6.5 /CUMM) 7.2 H Absolute Lymphocytes (1.2 - 3.4 /CUMM) 0.9 L Absolute Monocytes (0.10 - 0.60 /CUMM) 0.9 H Absolute Eosinophils (0.0 - 0.7 /CUMM) 0.2 Absolute Basophils (0.0 - 0.2 /CUMM) 0 PUBS MCHC (33.0 - 37.0 G/DL) 31.5 L Cancelled 11/14 11/14 1550 1145 Chemistry Iron (49 - 181 ug/dL) 27 L TIBC (261 - 462 ug/dL) 309 Ferritin (17.9 - 464 ng/mL) 247.0 Coagulation PT (9.4 - 12.5 SEC) 20.2 H INR (0.90 - 1.17) 1.94 H Hematology CBC w Diff NO MAN DIFF REQ NO MAN DIFF REQ WBC (4.8 - 10.8 /CUMM) 7.6 8.3 RBC (4.70 - 6.10 /CUMM) 3.42 L 3.66 L Hgb (14.0 - 18.0 G/DL) 9.1 L 9.8 L Hct (42 - 52 %) 28.8 L 30.6 L MCV (80.0 - 94.0 FL) 84.2 83.7 MCH (27.0 - 31.0 PG) 26.6 L 26.9 L RDW (11.5 - 14.5 %) 22.7 H 22.5 H Plt Count (130 - 400 /CUMM) 111 L 114 L MPV (7.4 - 10.4 FL) 9.0 9.2 Gran % (42.2 - 75.2 %) 72.7 73.8 Lymphocytes % (20.5 - 51.1 %) 14.6 L 12.4 L Monocytes % (1.7 - 9.3 %) 8.4 9.0 Eosinophils % (0 - 5 %) 3.8 4.3 Basophils % (0.0 - 2.0 %) 0.5 0.5 Absolute Granulocytes (1.4 - 6.5 /CUMM) 5.5 6.1 Absolute Lymphocytes (1.2 - 3.4 /CUMM) 1.1 L 1.0 L Absolute Monocytes (0.10 - 0.60 /CUMM) 0.6 0.7 H Absolute Eosinophils (0.0 - 0.7 /CUMM) 0.3 0.4 Absolute Basophils (0.0 - 0.2 /CUMM) 0 0 PUBS MCHC (33.0 - 37.0 G/DL) 31.6 L 32.2 L 11/14 11/14 0434 0128 Chemistry Sodium (137 - 145 mmol/L) 144 Potassium (3.5 - 5.1 mmol/L) 3.8 Chloride (98 - 107 mmol/L) 106 Carbon Dioxide (22 - 30 mmol/L) 22 Anion Gap (5 - 16) 16 BUN (9 - 20 mg/dL) 52 H Creatinine (0.7 - 1.2 mg/dL) 5.0 H Estimated GFR (>60 ml/min) 11 L Glucose (65 - 99 mg/dL) 161 H Lactic Acid (0.7 - 2.1 mmol/L) 0.9 Calcium (8.4 - 10.2 mg/dL) 8.3 L Phosphorus (2.5 - 4.5 mg/dL) 5.5 H Magnesium (1.6 - 2.3 mg/dL) 1.9 Total Bilirubin (0.2 - 1.3 mg/dL) 0.2 AST (17 - 59 U/L) 17 ALT (21 - 72 U/L) 23 Albumin (3.5 - 5.0 g/dL) 3.0 L Coagulation PT (9.4 - 12.5 SEC) 25.2 H INR (0.90 - 1.17) 2.42 H Hematology CBC w Diff NO MAN DIFF REQ NO MAN DIFF REQ WBC (4.8 - 10.8 /CUMM) 8.4 8.8 RBC (4.70 - 6.10 /CUMM) 3.67 L 4.05 L Hgb (14.0 - 18.0 G/DL) 9.7 L 10.8 L Hct (42 - 52 %) 31.1 L 33.8 L MCV (80.0 - 94.0 FL) 84.7 83.4 MCH (27.0 - 31.0 PG) 26.4 L 26.7 L RDW (11.5 - 14.5 %) 23.0 H 22.4 H Plt Count (130 - 400 /CUMM) 118 L 130 MPV (7.4 - 10.4 FL) 9.0 9.5 Gran % (42.2 - 75.2 %) 71.6 70.9 Lymphocytes % (20.5 - 51.1 %) 15.2 L 14.7 L Monocytes % (1.7 - 9.3 %) 8.6 9.6 H Eosinophils % (0 - 5 %) 3.8 3.8 Basophils % (0.0 - 2.0 %) 0.8 1.0 Absolute Granulocytes (1.4 - 6.5 /CUMM) 6.0 6.2 Absolute Lymphocytes (1.2 - 3.4 /CUMM) 1.3 1.3 Absolute Monocytes (0.10 - 0.60 /CUMM) 0.7 H 0.8 H Absolute Eosinophils (0.0 - 0.7 /CUMM) 0.3 0.3 Absolute Basophils (0.0 - 0.2 /CUMM) 0.1 0.1 PUBS MCHC (33.0 - 37.0 G/DL) 31.1 L 32.0 L 11/13 Chemistry Sodium (137 - 145 mmol/L) 144 Potassium (3.5 - 5.1 mmol/L) 4.0 Chloride (98 - 107 mmol/L) 104 Carbon Dioxide (22 - 30 mmol/L) 22 Anion Gap (5 - 16) 18 H BUN (9 - 20 mg/dL) 50 H Creatinine (0.7 - 1.2 mg/dL) 4.8 H Estimated GFR (>60 ml/min) 12 L BUN/Creatinine Ratio (7 - 25 %) 10.4 Glucose (65 - 99 mg/dL) 108 H Calcium (8.4 - 10.2 mg/dL) 8.5 Magnesium (1.6 - 2.3 mg/dL) 1.5 L Total Bilirubin (0.2 - 1.3 mg/dL) 0.3 AST (17 - 59 U/L) 19 ALT (21 - 72 U/L) 17 L Alkaline Phosphatase (< 127 U/L) 104 Troponin I (<0.11 ng/ml) 0.04 Total Protein (6.3 - 8.2 g/dL) 6.2 L Albumin (3.5 - 5.0 g/dL) 3.6 Globulin (1.9 - 4.2 gm/dL) 2.6 Albumin/Globulin Ratio (1.1 - 2.2 %) 1.4 Coagulation PT (9.4 - 12.5 SEC) 23.9 H INR (0.90 - 1.17) 2.29 H APTT (25 - 37 SEC) 42 H Hematology CBC w Diff NO MAN DIFF REQ WBC (4.8 - 10.8 /CUMM) 9.2 RBC (4.70 - 6.10 /CUMM) 4.33 L Hgb (14.0 - 18.0 G/DL) 11.5 L Hct (42 - 52 %) 36.0 L MCV (80.0 - 94.0 FL) 83.2 MCH (27.0 - 31.0 PG) 26.6 L RDW (11.5 - 14.5 %) 23.5 H Plt Count (130 - 400 /CUMM) 167 MPV (7.4 - 10.4 FL) 9.0 Gran % (42.2 - 75.2 %) 71.1 Lymphocytes % (20.5 - 51.1 %) 15.6 L Monocytes % (1.7 - 9.3 %) 9.2 Eosinophils % (0 - 5 %) 3.9 Basophils % (0.0 - 2.0 %) 0.2 Absolute Granulocytes (1.4 - 6.5 /CUMM) 6.5 Absolute Lymphocytes (1.2 - 3.4 /CUMM) 1.4 Absolute Monocytes (0.10 - 0.60 /CUMM) 0.8 H Absolute Eosinophils (0.0 - 0.7 /CUMM) 0.4 Absolute Basophils (0.0 - 0.2 /CUMM) 0 PUBS MCHC (33.0 - 37.0 G/DL) 32.0 L Imaging/Other Studies: Path: SIGMOID COLON POLYP: INFLAMMATORY PSEUDOPOLYP, WITH FOCAL SURFACE EROSION. NEGATIVE FOR EVIDENCE OF MALIGNANCY.
--- NOTE | 2016-11-16 09:00 | PN- Nephrology ---
Assessment/Plan Assessment: 1. ESRD: HD need underway w/o heparin - UF 2 liters 2. Lower GI Bl: Hg stable; no Tx need --> continue EPO & add IV Fe Suggestion: 1. EPO w HD 2. IV Fe gluconate 125 mg w HD today 3. next HD Mon - can do as putpt OK for dischrage from renal perspective Subjective Subjective: No more bleeding - no abd pain No SOB - no CP Objective Vital Signs and I&Os Vital Signs Date Time Temp Pulse Resp B/P Pulse O2 O2 Flow FiO2 Ox Delivery Rate 11/16 0000 98.2 63 20 150/60 95 Room Air 11/15 2030 93 Room Air Room Air 11/15 1600 97.6 65 18 128/62 97 Room Air 11/15 1000 95 Room Air Intake & Output 11/16 1600 11/16 0400 11/15 1600 11/15 0400 11/14 1600 11/14 0400 Intake Total 100 490 457 239 4130 Output Total 248 042 8194 795 Balance 100 390 490 -950 1805 Intake, Blood 500 Product Intake, IV 100 Intake, Oral 100 490 060 188 2852 Number 4 2 14 Bowel Movements Output, 1000 Dialysate Output, Stool 475 Output, Urine 100 150 50 320 Patient 189 lb 190 lb 188 lb Weight Physical Exam General Appearance: well developed/nourished, no apparent distress Head: atraumatic, normal appearance Ears, Nose, Throat: normal ENT inspection Neck: R IJ tunneled HD cath Respiratory: rhonchi, wheezing Cardiovascular: regular rate/rhythm, friction rub (none) Abdomen: soft, non-tender, no organomegaly Extremities: no edema Current Medications: Current Medications Sig/Johnna Start time Last Medication Dose Route Stop Time Status Admin Albuterol Sulfate 3 ML Q4P PRN 11/14 1715 AC 11/14 INH 1705 Aspirin 81 MG DAILY 11/15 1700 AC 11/15 PO 1619 Atorvastatin Calcium 10 MG 1700 11/14 1700 AC 11/15 PO 1619 Epoetin Guzman 6,000 UNIT MoWeFr PRN 11/14 1630 AC IV Ferric Sodium 125 MG 11/16 1000 DC Gluconate Complex IV 12/02 1001 Ferric Sodium 125 MG MoWeFr 11/16 1000 AC Gluconate Complex IV 12/02 1059 Sodium Chloride 100 ML Folic Acid 1 MG DAILY 11/14 1000 AC 11/15 PO 0821 Insulin Aspart 0 TIDAC 11/15 0800 AC 11/15 SC 1625 Oxycodone/ 1 TAB Q6P PRN 11/13 2345 AC Acetaminophen PO Oxycodone/ 2 TAB Q6P PRN 11/13 2345 AC Acetaminophen PO Paricalcitol 2 MCG MoWeFr PRN 11/14 1630 AC IV Results Pertinent Lab Results: Laboratory Tests 11/15 11/15 1500 0635 Chemistry Sodium (137 - 145 mmol/L) 140 Potassium (3.5 - 5.1 mmol/L) 3.7 Chloride (98 - 107 mmol/L) 99 Carbon Dioxide (22 - 30 mmol/L) 27 Anion Gap (5 - 16) 13 BUN (9 - 20 mg/dL) 23 H Creatinine (0.7 - 1.2 mg/dL) 2.9 H Estimated GFR (>60 ml/min) 22 L Glucose (65 - 99 mg/dL) 111 H Calcium (8.4 - 10.2 mg/dL) 8.7 Phosphorus (2.5 - 4.5 mg/dL) 3.9 Magnesium (1.6 - 2.3 mg/dL) 1.7 Total Bilirubin (0.2 - 1.3 mg/dL) 0.4 AST (17 - 59 U/L) 20 ALT (21 - 72 U/L) 36 Albumin (3.5 - 5.0 g/dL) 3.2 L Coagulation PT (9.4 - 12.5 SEC) 17.3 H INR (0.90 - 1.17) 1.66 H Hematology CBC w Diff Pending NO MAN DIFF REQ WBC (4.8 - 10.8 /CUMM) 8.2 7.9 RBC (4.70 - 6.10 /CUMM) 3.24 L 3.14 L Hgb (14.0 - 18.0 G/DL) 8.7 L 8.4 L Hct (42 - 52 %) 27.3 L 26.5 L MCV (80.0 - 94.0 FL) 84.3 84.3 MCH (27.0 - 31.0 PG) 26.9 L 26.8 L RDW (11.5 - 14.5 %) 22.8 H 22.5 H Plt Count (130 - 400 /CUMM) 79 L 99 L MPV (7.4 - 10.4 FL) 11.0 H 9.2 Gran % (42.2 - 75.2 %) 73.1 74.1 Lymphocytes % (20.5 - 51.1 %) 15.6 L 14.6 L Monocytes % (1.7 - 9.3 %) 7.9 7.6 Eosinophils % (0 - 5 %) 3.2 3.4 Basophils % (0.0 - 2.0 %) 0.2 0.3 Absolute Granulocytes (1.4 - 6.5 /CUMM) 6.0 5.9 Absolute Lymphocytes (1.2 - 3.4 /CUMM) 1.3 1.2 Absolute Monocytes (0.10 - 0.60 /CUMM) 0.6 0.6 Absolute Eosinophils (0.0 - 0.7 /CUMM) 0.3 0.3 Absolute Basophils (0.0 - 0.2 /CUMM) 0 0 PUBS MCHC (33.0 - 37.0 G/DL) 31.9 L 31.8 L 11/14 11/14 2130 1999 Hematology CBC w Diff NO MAN DIFF REQ Cancelled WBC (4.8 - 10.8 /CUMM) 9.3 Cancelled RBC (4.70 - 6.10 /CUMM) 3.24 L Cancelled Hgb (14.0 - 18.0 G/DL) 8.5 L Cancelled Hct (42 - 52 %) 27.1 L Cancelled MCV (80.0 - 94.0 FL) 83.5 Cancelled MCH (27.0 - 31.0 PG) 26.3 L Cancelled RDW (11.5 - 14.5 %) 22.0 H Cancelled Plt Count (130 - 400 /CUMM) 103 L Cancelled MPV (7.4 - 10.4 FL) 8.8 Cancelled Gran % (42.2 - 75.2 %) 77.7 H Lymphocytes % (20.5 - 51.1 %) 10.0 L Monocytes % (1.7 - 9.3 %) 9.7 H Eosinophils % (0 - 5 %) 2.2 Basophils % (0.0 - 2.0 %) 0.4 Absolute Granulocytes (1.4 - 6.5 /CUMM) 7.2 H Absolute Lymphocytes (1.2 - 3.4 /CUMM) 0.9 L Absolute Monocytes (0.10 - 0.60 /CUMM) 0.9 H Absolute Eosinophils (0.0 - 0.7 /CUMM) 0.2 Absolute Basophils (0.0 - 0.2 /CUMM) 0 PUBS MCHC (33.0 - 37.0 G/DL) 31.5 L Cancelled 11/14 11/14 1550 1145 Chemistry Iron (49 - 181 ug/dL) 27 L TIBC (261 - 462 ug/dL) 309 Ferritin (17.9 - 464 ng/mL) 247.0 Coagulation PT (9.4 - 12.5 SEC) 20.2 H INR (0.90 - 1.17) 1.94 H Hematology CBC w Diff NO MAN DIFF REQ NO MAN DIFF REQ WBC (4.8 - 10.8 /CUMM) 7.6 8.3 RBC (4.70 - 6.10 /CUMM) 3.42 L 3.66 L Hgb (14.0 - 18.0 G/DL) 9.1 L 9.8 L Hct (42 - 52 %) 28.8 L 30.6 L MCV (80.0 - 94.0 FL) 84.2 83.7 MCH (27.0 - 31.0 PG) 26.6 L 26.9 L RDW (11.5 - 14.5 %) 22.7 H 22.5 H Plt Count (130 - 400 /CUMM) 111 L 114 L MPV (7.4 - 10.4 FL) 9.0 9.2 Gran % (42.2 - 75.2 %) 72.7 73.8 Lymphocytes % (20.5 - 51.1 %) 14.6 L 12.4 L Monocytes % (1.7 - 9.3 %) 8.4 9.0 Eosinophils % (0 - 5 %) 3.8 4.3 Basophils % (0.0 - 2.0 %) 0.5 0.5 Absolute Granulocytes (1.4 - 6.5 /CUMM) 5.5 6.1 Absolute Lymphocytes (1.2 - 3.4 /CUMM) 1.1 L 1.0 L Absolute Monocytes (0.10 - 0.60 /CUMM) 0.6 0.7 H Absolute Eosinophils (0.0 - 0.7 /CUMM) 0.3 0.4 Absolute Basophils (0.0 - 0.2 /CUMM) 0 0 PUBS MCHC (33.0 - 37.0 G/DL) 31.6 L 32.2 L 11/14 11/14 0434 0128 Chemistry Sodium (137 - 145 mmol/L) 144 Potassium (3.5 - 5.1 mmol/L) 3.8 Chloride (98 - 107 mmol/L) 106 Carbon Dioxide (22 - 30 mmol/L) 22 Anion Gap (5 - 16) 16 BUN (9 - 20 mg/dL) 52 H Creatinine (0.7 - 1.2 mg/dL) 5.0 H Estimated GFR (>60 ml/min) 11 L Glucose (65 - 99 mg/dL) 161 H Lactic Acid (0.7 - 2.1 mmol/L) 0.9 Calcium (8.4 - 10.2 mg/dL) 8.3 L Phosphorus (2.5 - 4.5 mg/dL) 5.5 H Magnesium (1.6 - 2.3 mg/dL) 1.9 Total Bilirubin (0.2 - 1.3 mg/dL) 0.2 AST (17 - 59 U/L) 17 ALT (21 - 72 U/L) 23 Albumin (3.5 - 5.0 g/dL) 3.0 L Coagulation PT (9.4 - 12.5 SEC) 25.2 H INR (0.90 - 1.17) 2.42 H Hematology CBC w Diff NO MAN DIFF REQ NO MAN DIFF REQ WBC (4.8 - 10.8 /CUMM) 8.4 8.8 RBC (4.70 - 6.10 /CUMM) 3.67 L 4.05 L Hgb (14.0 - 18.0 G/DL) 9.7 L 10.8 L Hct (42 - 52 %) 31.1 L 33.8 L MCV (80.0 - 94.0 FL) 84.7 83.4 MCH (27.0 - 31.0 PG) 26.4 L 26.7 L RDW (11.5 - 14.5 %) 23.0 H 22.4 H Plt Count (130 - 400 /CUMM) 118 L 130 MPV (7.4 - 10.4 FL) 9.0 9.5 Gran % (42.2 - 75.2 %) 71.6 70.9 Lymphocytes % (20.5 - 51.1 %) 15.2 L 14.7 L Monocytes % (1.7 - 9.3 %) 8.6 9.6 H Eosinophils % (0 - 5 %) 3.8 3.8 Basophils % (0.0 - 2.0 %) 0.8 1.0 Absolute Granulocytes (1.4 - 6.5 /CUMM) 6.0 6.2 Absolute Lymphocytes (1.2 - 3.4 /CUMM) 1.3 1.3 Absolute Monocytes (0.10 - 0.60 /CUMM) 0.7 H 0.8 H Absolute Eosinophils (0.0 - 0.7 /CUMM) 0.3 0.3 Absolute Basophils (0.0 - 0.2 /CUMM) 0.1 0.1 PUBS MCHC (33.0 - 37.0 G/DL) 31.1 L 32.0 L 11/13 11/13 11/13 2125 2123 2040 Chemistry Sodium (137 - 145 mmol/L) 144 Potassium (3.5 - 5.1 mmol/L) 4.0 Chloride (98 - 107 mmol/L) 104 Carbon Dioxide (22 - 30 mmol/L) 22 Anion Gap (5 - 16) 18 H BUN (9 - 20 mg/dL) 50 H Creatinine (0.7 - 1.2 mg/dL) 4.8 H Estimated GFR (>60 ml/min) 12 L BUN/Creatinine Ratio (7 - 25 %) 10.4 Glucose (65 - 99 mg/dL) 108 H Calcium (8.4 - 10.2 mg/dL) 8.5 Magnesium (1.6 - 2.3 mg/dL) 1.5 L Total Bilirubin (0.2 - 1.3 mg/dL) 0.3 AST (17 - 59 U/L) 19 ALT (21 - 72 U/L) 17 L Alkaline Phosphatase (< 127 U/L) 104 Troponin I (<0.11 ng/ml) 0.04 Total Protein (6.3 - 8.2 g/dL) 6.2 L Albumin (3.5 - 5.0 g/dL) 3.6 Globulin (1.9 - 4.2 gm/dL) 2.6 Albumin/Globulin Ratio (1.1 - 2.2 %) 1.4 Coagulation PT (9.4 - 12.5 SEC) 23.9 H INR (0.90 - 1.17) 2.29 H APTT (25 - 37 SEC) 42 H Hematology CBC w Diff NO MAN DIFF REQ WBC (4.8 - 10.8 /CUMM) 9.2 RBC (4.70 - 6.10 /CUMM) 4.33 L Hgb (14.0 - 18.0 G/DL) 11.5 L Hct (42 - 52 %) 36.0 L MCV (80.0 - 94.0 FL) 83.2 MCH (27.0 - 31.0 PG) 26.6 L RDW (11.5 - 14.5 %) 23.5 H Plt Count (130 - 400 /CUMM) 167 MPV (7.4 - 10.4 FL) 9.0 Gran % (42.2 - 75.2 %) 71.1 Lymphocytes % (20.5 - 51.1 %) 15.6 L Monocytes % (1.7 - 9.3 %) 9.2 Eosinophils % (0 - 5 %) 3.9 Basophils % (0.0 - 2.0 %) 0.2 Absolute Granulocytes (1.4 - 6.5 /CUMM) 6.5 Absolute Lymphocytes (1.2 - 3.4 /CUMM) 1.4 Absolute Monocytes (0.10 - 0.60 /CUMM) 0.8 H Absolute Eosinophils (0.0 - 0.7 /CUMM) 0.4 Absolute Basophils (0.0 - 0.2 /CUMM) 0 PUBS MCHC (33.0 - 37.0 G/DL) 32.0 L
[2016-11-16 09:50] LABS: PT 14.8 SEC (9.4-12.5)
[2016-11-16 10:05] LABS: ABSOLUTE BASOPHIL COUNT 0.1 /CUMM (0.0-0.2); ABSOLUTE EOSINOPHIL COUNT 0.3 /CUMM (0.0-0.7); ABSOLUTE GRANULOCYTE CT 5.3 /CUMM (1.4-6.5); ABSOLUTE LYMPH COUNT 1.2 /CUMM (1.2-3.4); ABSOLUTE MONOCYTE COUNT 0.6 /CUMM (0.10-0.60); BASOPHIL % 0.7 % (0.0-2.0); EOSINOPHIL % 4.2 % (0-5); GRANULOCYTE % 70.7 % (42.2-75.2); HEMATOCRIT 27.1 % (42-52); MEAN CORPUSCULAR HGB CONC 31.8 G/DL (33.0-37.0); MEAN CORPUSCULAR VOLUME 84.7 FL (80.0-94.0); MEAN PLATELET VOLUME 9.3 FL (7.4-10.4); PLATELET COUNT 105 /CUMM (130-400); RBC DISTRIBUTION WIDTH 22.3 % (11.5-14.5); WHITE BLOOD CELL COUNT 7.5 /CUMM (4.8-10.8)
--- NOTE | 2016-11-16 10:29 | Discharge Summary ---
Visit Information Visit Dates Admission Date: 11/13/16 Discharge Date: 11/16/16 Hospital Course Course Attending Physician: Dr. Mike Perry MD Primary Care Physician: BRITT STREET,YSABEL Burgos Consulting Request: 1 Consulting Specialty: Gastroenterology Consulting Request: 2 Consulting Specialty: Cardiology Consulting Request: 3 Consulting Specialty: Nephrology Hospital Course: 71-year-old male with multiple medical problems significant for ESRD on HD, atrial fibrillation on Coumadin seen for evaluation of multiple episodes of bloody loose stool. Vital signs upon initial evaluation were remarkable for temp 97.3-98.6, HR 59-78, RR 18, BP 147-194/67-77, O2 96-98% on room air. Physical examination demonstrated an elderly male in no acute distress with a normal cardiopulmonary and nontender soft abdominal examination. Lab work demonstrated hgb/hct 9.7/31.1, BUN/cr 52/5.0, lactic 0.9, INR 2.42, anion gap 18 , mg 1.5. GI consult was placed in the ED and patient was made nothing by mouth and given bowel prep for an anticipated colonoscopy in the morning. He was admitted to the intensive care unit for further monitoring. Problem list: -BRBPR secondary to bleeding polyp -ESRD on hemodialysis -History of atrial fibrillation, on Coumadin Gastrointestinal: Patient with multiple medical problems and no history of gastrointestinal disease presenting for evaluation of several episodes of bright red blood per rectum. Patient was admitted to the intensive care unit for observation and preparation for colonoscopy. He continued to have minor bowel movements containing bright red blood prior to the procedure. A bleeding polyp was identified during colonoscopy which was subsequently clipped without any evidence of further rebleeding. He did not have any further episodes of of rectal bleeding. He was instructed to follow up with Dr. Pederson in 3-6 months for a repeat colonoscopy. Nephrology: Patient with a history of end-stage renal disease on hemodialysis. Patient received two rounds of hemodialysis with administration of ferrlecit, epogen, and paricalcitrol per nephrology consultants recommendations and instruction to follow up with his outpatient hemodialysis visits every monday, monday and monday. Cardiovascular: Patient with a history of chronic diastolic heart failure, coronary artery disease status post CABG and pacemaker, and atrial fibrillation on Coumadin. Therapeutic INR was identified on admission for which 2 units FFP were given to reverse this prior to the colonoscopy. Patient was restarted on aspirin and coumadin prior to discharge with instruction to monitor for signs of bleeding and to follow up with providers after discharge. Allergies: Coded Allergies: NO KNOWN ALLERGIES (10/04/16) Significant Procedures: Colonoscopy Procedure Medical History: unchanged (see meditech consult) Mental Status: alert/oriented Heart/Lung Eval Prior to Sedation: within normal limits Candidate for Sedation? Yes Date of Last Colonoscopy: No prior colonoscopy. Procedure Date: 11/14/16 Procedure Type: colonoscopy w/polypectomy Blending Supervisor: Roger Pederson MD ASA Classification: III Indications: Rectal bleeding. Instrument (Colonoscope): single channel Meds Received: MAC Patient's Tolerance: good Complications: none Extent Reached: cecum Prep: poor Procedure: After getting written informed consent the patient was placed in the left lateral decubitus position with pulse oximetry, cardiac monitoring, and supplemental oxygen was given. IV sedation was given until the desired effect was achieved. A rectal exam was performed which was normal. A high definition variable stiffness Olympus colonoscope was then inserted into the anus and advanced to the cecum with little difficulty. Retroflexed views were obtained and photodocumentation was obtained. Close inspection of the colonic mucosa was performed on insertion and withdrawal of the colonoscope with a withdrawal time that was adequate in length to closely inspect all folds and boyer of the colon with care to suction and irrigate away any leftover remaining stool to the best of my ability. Findings: There was a 8 mm pedunculated polyp in the sigmoid colon at approximately 20 cm from the anus which was actively bleeding. The polyp was removed with snare polypectomy and monopolar cautery and was retrieved for colonoscope and sent to pathology for further evaluation. After the polyp was removed the bleeding stopped. One prophylactic Hemoclip was then placed over the polypectomy stalk without any significant bleeding ensuing. There were a few scattered diverticula in the sigmoid colon and there was a nonbleeding AVM in the ascending colon which was left untreated. There was brown stool proximal to the bleeding polyp and this was appreciated to the cecum. There is a moderate amount of leftover stool which could not be completely cleared through the colonoscope that lesions less than 1.5 cm could not be definitively ruled out. There were no obvious masslike lesions or large polyps appreciated. Retroflexed views in the rectum revealed small internal hemorrhoids. Impression: 1. Bleeding pedunculated polyp at 20 cm from the anus status post removal with snare polypectomy with good hemostasis being achieved and one prophylactic Hemoclip placed. 2. Sigmoid diverticula. 3. Nonbleeding ascending colon AVM not treated. 4. Small internal hemorrhoids. 5. Poor prep so that lesions less than 1.5 cm could not be definitively ruled out. Recommendations: 1. Advance diet as tolerated. 2. Would hold Coumadin for an additional 48 hours and if no further bleeding would then restart it. 3. If he remains without active bleeding at is okay to restart his baby aspirin in the next 24-48 hours if medically indicated. 4. Follow CBCs to 8 hours and transfuse as needed to keep his hemoglobin greater than 8 or as per cardiac conditions. 5. Follow INR. 6. Notify GI for signs of hemodynamically significant GI bleeding. 7. He should follow up the pathology results of the polyp as an outpatient. 8. He should have a repeat colonoscopy in 3-6 months with a prep to clear the remainder of his colon considering the quality of the bowel preparation. Disposition Summary Disposition Principal Diagnosis: Lower gastrointestinal bleed secondary to bleeing polyp Additional Diagnosis: ESRD on HD Discharge Disposition: home health services Discharge Instructions General Discharge Information Code Status: Full Code Patient's Diet: Renal dialysis diet with 2g sodium restriction Patient's Activity: Return to full activity as tolerated Follow-Up Instructions/Appts: Continue all your old home medications including aspirin and coumadin. Monitor for further bleeding, call 911 or return to the ED should your symptoms recur or worsen. Follow up with Dr. Pederson of [facility] for further evaluation. Follow up with your primary care provider after discharge regarding your recent hospital stay. Patient INR on discharge was 1.41. Coumadin 5mg was given prior to discharge. Please follow up coumadin and dose accordingly after discharge. Medications at Discharge Discharge Medications: Continue taking these medications: Aspirin (Ecotrin) 81 MG TABLET. 1 Tablet ORAL DAILY Comments: Last Taken: 03/02/16 Time: 1000 AM Metoprolol Tartrate (Lopressor) 50 MG TAB 1 Tablet ORAL TWICE DAILY Comments: Last Taken: 12/24/15 Time: 1000 AM Simvastatin (Zocor) 20 MG TAB 1 Tablet ORAL 5 PM Comments: LAST TAKEN 03/01/16 AT 1700 Furosemide (Lasix) 40 MG TABLET 2 Tablet ORAL DAILY Qty = 30 Comments: 80MG GIVEN 03/02 AT 10AM HYDRALAZINE HCL (Hydralazine) 10 MG TABLET 1 Tablet ORAL TWICE DAILY Comments: Last Taken: 03/02/16 Time: 1000 AM Isosorbide Mononitrate (Imdur) [address] 1 Tablet ORAL DAILY Comments: Last Taken: 03/02/16 Time: 10 AM Folic Acid (Folic Acid) 1 MG TABLET 1 Milligram ORAL DAILY Comments: Last Taken: 03/02/16 Time: 1000 AM Ferrous Sulfate (Ferrous Sulfate) 325 MG (65 MG IRON) TABLET 1 Tablet ORAL TWICE DAILY Comments: LAST TAKEN 03/02 AT 10AM Omeprazole (Omeprazole) 20 MG CAPSULE.DR 1 Capsule ORAL DAILY BEFORE BREAKFAST Comments: LAST TAKEN 03/02/16 AT 0600 Albuterol Sulfate (Proventil Hfa) 90 MCG HFA.AER.AD 1-2 PUFF Inhale through mouth Q4-6H as needed for SHORTNESS OF BREATH Comments: NOT GIVEN IN HOSPITAL Insulin Glargine, Recombinan (Lantus) 100 U/ML SALIMA 12 Unit Inject into fatty tissue DAILY Comments: Last Taken: 03/02/16 Time: 1000 AM LEVEMIR GIVEN Insulin Lispro (Humalog) 100 UNIT/ML VIAL Units Inject into fatty tissue 3 TIMES DAILY BEFORE MEALS Days = 30 Instructions: Blood sugar Insulin dose < 80mg/dl No dose 80-150 mg/dl No dose 151-200mg/dl One unit 201-250mg/dl Two units 251-300mg/dl Three units 301-350mg/dl Four units 351-400mg/dl Six units Above 400mg/dl Eight units and call MD. Comments: Last Taken: 10/21/16 Time: 5:00 PM Albuterol Sulfate (Accuneb) 0.63 MG/3 ML VIAL.NEB 1 Amp Inhale through mouth THREE TIMES DAILY as needed for COPD Comments: NOT TAKEN IN HOSP Allopurinol (Allopurinol) 100 MG TABLET 1 Tablet ORAL DAILY Qty = 30 Comments: NOT GIVEN IN HOSPITAL Warfarin Sodium (Coumadin) 5 MG TABLET 1 Tablet ORAL DAILY Instructions: please dose Coumadin as per INR. Comments: PER PT Colchicine (Colchicine) 0.6 MG TABLET 1 Tablet ORAL DAILY Comments: NOT GIVEN IN HOSPTIAL Copies To: HARSHIL STREET,DANA Burgos; BRITT STRE[address],YSABEL Burgos; SHELLI PEDERSON MD, MD, MIGUEL Attending MD Review Statement Documenting Attending: MIKE PERRY MD Other Findings: Agree with discharge summary
--- NOTE | 2016-11-16 11:43 | PN- Resident CRCU ---
Subjective HPI/CRCU Issues: Patient seen and examined. He is seen sitting upright in his bed in comfortably. He appears to be in no acute distress. He denies any further episodes of letting loose bowel movements and states that he has not had one yet today. He reports 3 formed brown bowel movements yesterday. He admits that he feels fine and would like to be discharged today. Additionally he denies any headache, fever, chills, chest pain, shortness of breath, cough, nausea, vomiting, worsening diarrhea. No overnight events reported. Objective Vital Signs & I&O Last 8 Hrs of Vitals and I&O: Vitals: - Temperature: 98.2 - Heart Rate: 63 - Respiratory Rate: 20 - Systolic Blood pressure: 150 - Diastolic Blood pressure: 60 - Oxygen Saturation: 93-95% on room air Exam General Appearance: well developed/nourished, no apparent distress, alert, awake , obese Other Physical Findings: General -well-developed, obese male in no acute distress HEENT - NCAT, PERRL, EOMI, anicteric sclera Cardio/chest - S1, S2 w/o murmurs/gallops/rubs, dialysis catheter in place Resp - CTA bilaterally w/o wheezing/rhochi/crackles GI -soft, obese, nontender, nondistended, bowel sounds present Neuro - Awake and alert, CN II - XII grossly intact Extremities-1+ bilateral lower extremity edema, pulses intact Current Medications: Current Medications Sig/Johnna Start time Last Medication Dose Route Stop Time Status Admin Albuterol Sulfate 3 ML Q4P PRN 11/14 1715 AC 11/14 INH 1705 Aspirin 81 MG DAILY 11/15 1700 AC 11/15 PO 1619 Atorvastatin Calcium 10 MG 1700 11/14 1700 AC 11/15 PO 1619 Epoetin Guzman 6,000 UNIT MoWeFr PRN 11/14 1630 AC IV Ferric Sodium 125 MG 11/16 1000 DC Gluconate Complex IV 12/02 1001 Ferric Sodium 125 MG MoWeFr 11/16 1000 AC Gluconate Complex IV 12/02 1059 Sodium Chloride 100 ML Folic Acid 1 MG DAILY 11/14 1000 AC 11/15 PO 0821 Insulin Aspart 0 TIDAC 11/15 0800 AC 11/16 SC 0850 Oxycodone/ 1 TAB Q6P PRN 11/13 2345 AC Acetaminophen PO Oxycodone/ 2 TAB Q6P PRN 11/13 2345 AC Acetaminophen PO Paricalcitol 2 MCG MoWeFr PRN 11/14 1630 AC IV Warfarin Sodium 5 MG COUMADIN 1700 ONE 11/16 1700 AC PO 11/16 1701 Impression/Plan Impression/Problem List Impression: He continues to deny any further bloody loose bowel movements. Aspirin was restarted last night with no events. INR was subtherapeutic this morning for which Coumadin was restarted and dosed accordingly. He is to receive hemodialysis this morning and then to be discharged to home with health services. He is to follow-up with Dr. Pederson as an outpatient and 3-6 months for a repeat colonoscopy. He is to continue all his previous medications occluding aspirin and Coumadin at home. Problem list: -BRBPR secondary to bleeding polyp s/p colonoscopy with clipping, now stable -ESRD on hemodialysis -History of atrial fibrillation, on Coumadin (restarted) Gastrointestinal: Patient with multiple medical problems and no history of gastrointestinal disease presenting for evaluation of several episodes of bright red blood per rectum. Patient was admitted to the intensive care unit for observation and preparation for colonoscopy. He continued to have minor bowel movements containing bright red blood prior to the procedure. A bleeding polyp was identified during colonoscopy which was subsequently clipped without any evidence of further rebleeding. -Typed and crossed, consent for blood transfusion placed in chart -FFP transfused: 2 -PRBC transfused: 0 -GI consult following -Pathology follow-up and repeat colonoscopy in 3-6 months as outpatient Nephrology: Patient with a history of end-stage renal disease on hemodialysis. -Dialysis MWF -Folic Acid 1mg PO Daily -Ferrlecit 125mg IV with dialysis -Epogen 6,000U IV with dialysis -Paricalcitol 2mcg IV with dialysis -Nephrology consult following Cardiovascular: Patient with a history of chronic diastolic heart failure, coronary artery disease status post CABG and pacemaker, and atrial fibrillation on Coumadin. -Pravastatin 10mg PO daily -Cardiology consult following -Daily INR, dose coumadin Endocrinology: Patient with a history of insulin-dependent diabetes mellitus. -Accuchecks -NovoLog sliding scale insulin 3 times a day before meals Pain plan: -Percocet 1 tablet by mouth every 6 hours as needed for pain 4-6 -Percocet 2 tablet by mouth every 6 hours as needed for pain 7-10 Diet - Renal dialysis diet with sodium restriction DVT PPx - ALPS Code Status - FULL CODE Problem List: 1. Bright red blood per rectum Pain Ratin Tomorrow's Labs & Rationales: None Plan DVT/Prophylaxis: mechanical
--- NOTE | 2016-11-16 12:00 | PN- Pulmonary ---
Subjective HPI/Critical Care Issues: Patient seen and examined. No chest pain, at respiratory baseline. No nausea, vomiting, diarrhea or constipation. Afebrile and hemodynamically stable. Undergoing dialysis feeling much better no bleeding. Objective Current Medications: Current Medications Sig/Johnna Start time Last Medication Dose Route Stop Time Status Admin Albuterol Sulfate 3 ML Q4P PRN 11/14 1715 AC 11/14 INH 1705 Aspirin 81 MG DAILY 11/15 1700 AC 11/15 PO 1619 Atorvastatin Calcium 10 MG 1700 11/14 1700 AC 11/15 PO 1619 Epoetin Guzman 6,000 UNIT MoWeFr PRN 11/14 1630 AC IV Ferric Sodium 125 MG 11/16 1000 DC Gluconate Complex IV 12/02 1001 Ferric Sodium 125 MG MoWeFr 11/16 1000 AC Gluconate Complex IV 12/02 1059 Sodium Chloride 100 ML Folic Acid 1 MG DAILY 11/14 1000 AC 11/15 PO 0821 Insulin Aspart 0 TIDAC 11/15 0800 AC 11/16 SC 0850 Oxycodone/ 1 TAB Q6P PRN 11/13 2345 AC Acetaminophen PO Oxycodone/ 2 TAB Q6P PRN 11/13 2345 AC Acetaminophen PO Paricalcitol 2 MCG MoWeFr PRN 11/14 1630 AC IV Warfarin Sodium 5 MG COUMADIN 1700 ONE 11/16 1700 AC PO 11/16 1701 Vital Signs & I&O Last 24 Hrs of Vitals and I&O: Vital Signs Date Time Temp Pulse Resp B/P Pulse O2 O2 Flow FiO2 Ox Delivery Rate 11/16 0000 98.2 63 20 150/60 95 Room Air 11/15 2029 93 Room Air Room Air 11/15 1600 97.6 65 18 128/62 97 Room Air Intake & Output 11/16 1600 11/16 0800 11/16 0000 Intake Total 100 490 Output Total 100 Balance 100 390 Intake, Oral 100 490 Output, Urine 100 Exam Other Physical Findings: gen awake and alert heent ncat cvs s1, s2 lungs rare wheeze abd soft, bs+ ext chronic venous stasis Results Last 24 Hrs of Lab Results: Laboratory Tests 11/16/16 0912: Anion Gap 13, Estimated GFR 14 L, Glucose 177 H, Calcium 8.6, Phosphorus 4.2, Magnesium 1.7, Total Bilirubin 0.3, AST 19, ALT 18 L, Albumin 3.2 L, PT 14.8 H, INR 1.41 H, CBC w Diff NO MAN DIFF REQ, RBC 3.20 L, MCV 84.7, MCH 27.0, RDW 22.3 H, MPV 9.3, Gran % 70.7, Lymphocytes % 16.3 L, Monocytes % 8.1, Eosinophils % 4.2, Basophils % 0.7, Absolute Granulocytes 5.3, Absolute Lymphocytes 1.2, Absolute Monocytes 0.6, Absolute Eosinophils 0.3, Absolute Basophils 0.1, PUBS MCHC 31.8 L 11/15/16 1500: CBC w Diff Pending, RBC 3.24 L, MCV 84.3, MCH 26.9 L, RDW 22.8 H, MPV 11.0 H , Gran % 73.1, Lymphocytes % 15.6 L, Monocytes % 7.9, Eosinophils % 3.2, Basophils % 0.2, Absolute Granulocytes 6.0, Absolute Lymphocytes 1.3, Absolute Monocytes 0.6, Absolute Eosinophils 0.3, Absolute Basophils 0, PUBS MCHC 31.9 L Impression/Plan Impression/Plan Impression/Plan: Impression 71 year old man with resolved acute blood loss anemia secondary to a bleeding polyp that was clipped. Plan -gi appreciated -renal followup, cardio f/u -f/u pathology -gi follow up as outpt Safe for discharge today according to consult us and we will plan for that this afternoon after dialysis
--- NOTE | 2016-11-16 12:43 | PN- Cardiology ---
Subjective Subjective: Doing better, currently on dialysis. No further bleeding. Cardiac status stable. Objective Vital Signs and I&Os Vital Signs Date Time Temp Pulse Resp B/P Pulse O2 O2 Flow FiO2 Ox Delivery Rate 11/16 0000 98.2 63 20 150/60 95 Room Air 11/15 2030 93 Room Air Room Air 11/15 1600 97.6 65 18 128/62 97 Room Air Intake & Output 11/16 1600 11/16 0800 11/16 0000 11/15 1600 11/15 0811/15 0000 Intake Total 100 490 440 200 100 Output Total 100 50 100 1050 Balance 100 390 390 100 -950 Intake, Oral 100 490 440 200 100 Number 4 2 Bowel Movements Output, 1000 Dialysate Output, Urine 100 50 100 50 Patient 189 lb Weight Current Medications: Current Medications Sig/Johnna Start time Last Medication Dose Route Stop Time Status Admin Albuterol Sulfate 3 ML Q4P PRN 11/14 1715 AC 11/14 INH 1705 Aspirin 81 MG DAILY 11/15 1700 AC 11/15 PO 1619 Atorvastatin Calcium 10 MG 1700 11/14 1700 AC 11/15 PO 1619 Epoetin Guzman 6,000 UNIT MoWeFr PRN 11/14 1630 AC IV Ferric Sodium 125 MG 11/16 1000 DC Gluconate Complex IV 12/02 1001 Ferric Sodium 125 MG MoWeFr 11/16 1000 AC Gluconate Complex IV 12/02 1059 Sodium Chloride 100 ML Folic Acid 1 MG DAILY 11/14 1000 AC 11/15 PO 0821 Insulin Aspart 0 TIDAC 11/15 0800 AC 11/16 SC 0850 Oxycodone/ 1 TAB Q6P PRN 11/13 2345 AC Acetaminophen PO Oxycodone/ 2 TAB Q6P PRN 11/13 2345 AC Acetaminophen PO Paricalcitol 2 MCG MoWeFr PRN 11/14 1630 AC IV Warfarin Sodium 5 MG COUMADIN 1700 ONE 11/16 170 AC PO 11/16 170 Results Last 48 Hrs of Labs/Mics: Laboratory Tests 11/16/16911: Anion Gap 13, Estimated GFR 14 L, Glucose 177 H, Calcium 8.6, Phosphorus 4.2, Magnesium 1.7, Total Bilirubin 0.3, AST 19, ALT 18 L, Albumin 3.2 L, PT 14.8 H, INR 1.41 H, CBC w Diff NO MAN DIFF REQ, RBC 3.20 L, MCV 84.7, MCH 27.0, RDW 22.3 H, MPV 9.3, Gran % 70.7, Lymphocytes % 16.3 L, Monocytes % 8.1, Eosinophils % 4.2, Basophils % 0.7, Absolute Granulocytes 5.3, Absolute Lymphocytes 1.2, Absolute Monocytes 0.6, Absolute Eosinophils 0.3, Absolute Basophils 0.1, PUBS MCHC 31.8 L 11/15/16 1500: CBC w Diff Pending, RBC 3.24 L, MCV 84.3, MCH 26.9 L, RDW 22.8 H, MPV 11.0 H , Gran % 73.1, Lymphocytes % 15.6 L, Monocytes % 7.9, Eosinophils % 3.2, Basophils % 0.2, Absolute Granulocytes 6.0, Absolute Lymphocytes 1.3, Absolute Monocytes 0.6, Absolute Eosinophils 0.3, Absolute Basophils 0, PUBS MCHC 31.9 L 11/15/16 0635: Anion Gap 13, Estimated GFR 22 L, Glucose 111 H, Calcium 8.7, Phosphorus 3.9, Magnesium 1.7, Total Bilirubin 0.4, AST 20, ALT 36, Albumin 3.2 L, PT 17.3 H, INR 1.66 H, CBC w Diff NO MAN DIFF REQ, RBC 3.14 L, MCV 84.3, MCH 26.8 L, RDW 22.5 H, MPV 9.2, Gran % 74.1, Lymphocytes % 14.6 L, Monocytes % 7.6, Eosinophils % 3.4, Basophils % 0.3, Absolute Granulocytes 5.9, Absolute Lymphocytes 1.2, Absolute Monocytes 0.6, Absolute Eosinophils 0.3, Absolute Basophils 0, PUBS MCHC 31.8 L 11/14/16 2130: CBC w Diff NO MAN DIFF REQ, RBC 3.24 L, MCV 83.5, MCH 26.3 L, RDW 22.0 H, MPV 8.8, Gran % 77.7 H, Lymphocytes % 10.0 L, Monocytes % 9.7 H, Eosinophils % 2.2, Basophils % 0.4, Absolute Granulocytes 7.2 H, Absolute Lymphocytes 0.9 L, Absolute Monocytes 0.9 H, Absolute Eosinophils 0.2, Absolute Basophils 0, PUBS MCHC 31.5 L 11/14/16 2000: CBC w Diff Cancelled, WBC Cancelled, RBC Cancelled, Hgb Cancelled, Hct Cancelled , MCV Cancelled, MCH Cancelled, RDW Cancelled, Plt Count Cancelled, MPV Cancelled, PUBS MCHC Cancelled 11/14/16 1550: CBC w Diff NO MAN DIFF REQ, RBC 3.42 L, MCV 84.2, MCH 26.6 L, RDW 22.7 H, MPV 9.0, Gran % 72.7, Lymphocytes % 14.6 L, Monocytes % 8.4, Eosinophils % 3.8, Basophils % 0.5, Absolute Granulocytes 5.5, Absolute Lymphocytes 1.1 L, Absolute Monocytes 0.6, Absolute Eosinophils 0.3, Absolute Basophils 0, PUBS MCHC 31.6 L Assessment/Plan Assessment/Plan Assessment: 1. Coronary artery disease, status post CABG 2. Mildly decreased left ventricle systolic function 3. Paroxysmal atrial fibrillation, anticoagulated on warfarin 4. End-stage renal disease 5. GI bleed on warfarin Recommendations: -Continue current medical regimen. -Out of bed as tolerated -Restart warfarin and adjust to therapeutic INR as previously Continue telemetry? No
== END 2016-11-16 14:20 | disposition home health service (06) | DRG 377 ==
LOC: ERH 20:11 → ERHI 22:38 → CRI 22:38 → ENPENDDIS 22:38 → CRI 22:38
PROVIDERS: Internal Medicine; Internal Medicine Interventional Cardiology; Pediatrics; ADMIT Student in an Organized Health Care Education/Training Program
PROC: 0DBN8ZX Excision of Sigmoid Colon, Via Natural or Artificial Opening Endoscopic, Diagnostic (ICD-10-PCS; principal; 2016-11-14)
PROC: 5A1D60Z (ICD-10-PCS; 2016-11-14)
PROC: 5A1D60Z (ICD-10-PCS; 2016-11-16)
DX: K92.2 Gastrointestinal hemorrhage, unspecified (principal); N18.6 End stage renal disease; I13.2 Hypertensive heart and chronic kidney disease with heart failure and with stage 5 chronic kidney disease, or end stage renal disease; I27.2 Other secondary pulmonary hypertension; J44.9 Chronic obstructive pulmonary disease, unspecified; I48.0 Paroxysmal atrial fibrillation; I50.22 Chronic systolic (congestive) heart failure; D12.5 Benign neoplasm of sigmoid colon; Z99.2 Dependence on renal dialysis; E78.5 Hyperlipidemia, unspecified; G47.33 Obstructive sleep apnea (adult) (pediatric); Z79.01 Long term (current) use of anticoagulants; Z95.0 Presence of cardiac pacemaker; K21.9 Gastro-esophageal reflux disease without esophagitis; M10.9 Gout, unspecified; E11.9 Type 2 diabetes mellitus without complications; Z79.4 Long term (current) use of insulin; K57.30 Diverticulosis of large intestine without perforation or abscess without bleeding; K64.8 Other hemorrhoids
CPT/HCPCS: CCU; ERO; 36415; 82436; 88305; 93005; 93010; J0885; J2501; J3490; P9017

== ENCOUNTER 2016-11-25 03:16 | Inpatient (IN) | payer OTHER, MEDICARE ==
[~2016-11-25] VITALS: Ht 167.6 cm; Wt 80.7 kg
--- NOTE | 2016-11-25 03:18 | NUR ---
PER PT INCREASED SOB X 2 DAYS DENIES CP. UPON EMS ARRIVAL SATS 80'S INCREASED TO 90'S WITH DUONEB ENROUTE.
--- NOTE | 2016-11-25 03:34 | NUR ---
IRRITABLE, STATES HE HAS THROWN PEOPLE OUT OF HIS ROOM UPSTAIRS WHEN THEY KEEP POKING ME. I WONT TOLE IT HOSPITAL PROCEDURE EXPLAINED. "THATS WHAT I HATE ABOUT HERE, YOU'RE ALWAYS DRAWING BLOOD", EVERY TIME I TURN AROUNSD. PT MUCH LESS SOB THEN ARRIVAL. THICK NON PRODUCTIVE COUGH. L ARM RESTRICTED BAND IN PLACE. DIALYSIS M-W-F
--- NOTE | 2016-11-25 03:40 | NUR ---
EKG DONE AND SHOWNTO DR. BEYER.
[2016-11-25 03:46] LABS: ABSOLUTE BASOPHIL COUNT 0 /CUMM (0.0-0.2); ABSOLUTE EOSINOPHIL COUNT 0.4 /CUMM (0.0-0.7); ABSOLUTE GRANULOCYTE CT 11.2 /CUMM (1.4-6.5); ABSOLUTE LYMPH COUNT 0.7 /CUMM (1.2-3.4); ABSOLUTE MONOCYTE COUNT 0.9 /CUMM (0.10-0.60); BASOPHIL % 0.2 % (0.0-2.0); HEMATOCRIT 29.9 % (42-52); MEAN CORPUSCULAR HGB 27.1 PG (27.0-31.0); MEAN CORPUSCULAR HGB CONC 31.5 G/DL (33.0-37.0); MEAN PLATELET VOLUME 9.5 FL (7.4-10.4); PLATELET COUNT 152 /CUMM (130-400); RBC DISTRIBUTION WIDTH 22.7 % (11.5-14.5); RED BLOOD CELL CT 3.47 /CUMM (4.70-6.10); WHITE BLOOD CELL COUNT 13.2 /CUMM (4.8-10.8)
[2016-11-25 03:50] LABS: PT 23.3 SEC (9.4-12.5)
--- NOTE | 2016-11-25 04:02 | NUR ---
RESTING QUIETLY RR = 24 O2 SAT ON 2L = 93 COUGHING UP SM AMTS OF THIN WHITE SPUTUM
--- NOTE | 2016-11-25 04:08 | RADIOLOGY REPORT ---
EXAMINATION: XR PORTABLE CHEST CLINICAL INFORMATION: Cough, shortness of breath, history of atrial fibrillation and end-stage renal disease COMPARISON: 10/04/2016 TECHNIQUE: Portable view of the chest was obtained. FINDINGS: Left-sided pacemaker/AICD lead tips overlie the right atrium, right ventricle, and coronary sinus. Right IJ dual-lumen catheter lead tip overlies the cavoatrial junction. Lung volumes are symmetric. No focal consolidation is seen. No evidence of pneumothorax, definite pleural effusion, or overt pulmonary edema. The cardiac silhouette remains prominent. Calcification is present at the aortic arch. No acute osseous findings are seen. IMPRESSION: No acute pulmonary findings. Enlarged cardiac silhouette.
--- NOTE | 2016-11-25 04:30 | NUR ---
PT TO BE ADMITTED. RR = 24 O2 SAT ON 2L = 92.
--- NOTE | 2016-11-25 05:10 | History & Physical ---
RONNY LEE MDRIE 11/25/16 0509: General Information and HPI MD Statement: I have seen and personally examined DUNCAN ORELLANA and documented this H&P. The patient is a 71 year old M who presented with a patient stated chief complaint of [COUGH AND SHORTNESS OF BREATH]. Source of Information: patient Exam Limitations: no limitations History of Present Illness: 71-year-old male with PMH of atrial fibrillation on warfarin, ESRD on dialysis MWF, congestive heart failure with reduced ejection fraction, pacemaker/AICD, HTN, HLD, COPD not on home oxygen, IDDM, gout, presented with shortness of breath. EMS reported sats in 80s, improved to 90s with duoneb. His sat in ED was 87% on RA, improved to 93% on 2L O2. He was getting a breathing treatment when we evaluated him in the ED. He was sitting comfortably at the edge of the bed, not in respiratory distress, but was frequently coughing. Pt was feeling well since last discharge, until night. He was having frequent cough and the cough takes his "breath away" and makes him feel short of breath. His cough is productive of thick white sputum. He would cough up about a tablespoon each time. He reported 1 episode of "vomiting" clear liquid, unsure if he actually vomited or coughed up the sputum. He also has some congestion, sore throat, and dry mouth. He was feeling warm right before he was brought to the ED by ambulance, but denies chills. No visual changes, chest pain, palpitations, abdominal pain, nausea, change in stool, constipation, diarrhea. His lower extremity edema is at baseline. He denies increased cough or shortness of breath when lying down. His last dialysis was on Monday, and he received pneumonia shot that day. He refused the flu shot this year. Last echo Oct 05, 2016: The left ventricular chamber size is normal with borderline to mild LVH and an ejection fraction of 50-55%. Mild localized inferoposterior hypokinesia is present. Fibrocalcific degeneration is present in the aortic valve with evidence of moderate valvular stenosis and an estimated JUJU of 1.1 cm2. Allergies/Medications Allergies: Coded Allergies: NO KNOWN ALLERGIES (10/04/16) Home Med list Albuterol Sulfate (Proventil Hfa) 90 MCG HFA.AER.AD 1-2 PUFF INH Q4-6H PRN SHORTNESS OF BREATH (Reported) Albuterol Sulfate (Accuneb) 0.63 MG/3 ML VIAL.NEB 1 AMP INH TID PRN COPD ( Reported) Allopurinol 100 MG TABLET 1 TAB PO DAILY GOUT Aspirin (Ecotrin) 81 MG TABLET.DR 1 TAB PO DAILY HEART (Reported) Colchicine 0.6 MG TABLET 1 TAB PO DAILY GOUT (Reported) Ferrous Sulfate 325 MG (65 MG IRON) TABLET 1 TAB PO BID SUPPLEMENT (Reported) Folic Acid 1 MG TABLET 1 MG PO DAILY SUPPLEMENT (Reported) Furosemide (Lasix) 40 MG TABLET 2 TAB PO DAILY HEART (Reported) HYDRALAZINE HCL (Hydralazine) 10 MG TABLET 1 TAB PO BID BP (Reported) Insulin Glargine, Recombinan (Lantus) 100 U/ML SALIMA 12 UNIT SC DAILY DIABETES (Reported) Insulin Lispro (Humalog) 100 UNIT/ML VIAL diabetes (Reported) Blood sugar Insulin dose < 80mg/dl No dose 80-150 mg/dl No dose 151-200mg/dl One unit 201-250mg/dl Two units 251-300mg/dl Three units 301-350mg/dl Four units 351-400mg/dl Six units Above 400mg/dl Eight units and call MD. Isosorbide Mononitrate (Imdur) [address] 1 TAB PO DAILY CAD (Reported) Metoprolol Tartrate (Lopressor) 50 MG TAB 1 TAB PO BID HEART (Reported) Omeprazole 20 MG CAPSULE.DR 1 CAP PO DAILY AC GI (Reported) Simvastatin (Zocor) 20 MG TAB 1 TAB PO 1700 CHOLESTEROL (Reported) Warfarin Sodium (Coumadin) 5 MG TABLET 1 TAB PO DAILY BLOOD THINNER (Reported ) please dose Coumadin as per INR. Past History Travel History Traveled to [place] past 21 day No Medical History Neurological: NONE Cardiovascular: AFIB (paroxysmal), CAD, hypertension, hyperlipidemia, systolic CHF, PACEMAKER/DEFIBRILLATOR Respiratory: COPD, obstructive sleep apnea (not using CPAP), NON COMPLIANT W/ CPAP Gastrointestinal: GERD Hepatic: NONE Renal: chronic kidney disease Musculoskeletal: gout, CELLULITIS Psychiatric: NONE Endocrine: diabetes Blood Disorders: NONE Cancer(s): NONE NURSES ASSISTANT/Reproductive: NONE History of MRSA: Yes History of VRE: No History of CDIFF: No Surgical History Surgical History: PACEMAKER Past Family/Social History Family History Relations & Conditions if any MOTHER (Lung cancer). Psychosocial History Where do you live? Home Who Do You Live With? self Services at Home: None Primary Language: Georgian Smoking Status: Former Smoker ETOH Use: denies use Illicit Drug Use: denies illicit drug use Functional Ability ADLs Independent: dressing, eating, toileting, bathing. Ambulation: independent IADLs Independent: shopping, housework, finances, food prep, telephone, transportation , medication admin. Review of Systems Review of Systems Constitutional: Denies: chills, diaphoresis, fever. EENTM: Denies: blurred vision, double vision, visual changes. Cardiovascular: Reports: peripheral edema. Denies: chest pain, edema, orthopena, palpitations. Respiratory: Reports: cough, short of breath, sputum production. GI: Denies: abdominal pain, bloating, constipation, diarrhea, bloody stool, changes in stool, vomiting. Genitourinary: Denies: discharge, dysuria. Exam & Diagnostic Data Last 24 Hrs of Vital Signs/I&O Vital Signs Date Time Temp Pulse Resp B/P Pulse O2 O2 Flow FiO2 Ox Delivery Rate 11/25 0533 92 Nasal 2.0L Cannula 11/25 0511 83 24 132/61 93 Nasal 2.0L Cannula 11/25 0320 88 Room Air 11/25 0318 99.6 86 22 159/68 87 Room Air Intake & Output 11/25 0800 11/25 0000 11/24 1600 Intake Total 200 Output Total Balance 200 Intake, Oral 200 Patient 70.307 kg Weight Physical Exam General Appearance Alert, Oriented X3, Cooperative, Mild Distress, uncomfortable due to cough Skin No Significant Lesion, dry legs, no edema or tenderness around tiburcio cath on the right chest HEENT Atraumatic, PERRLA, EOMI, dry mucous membranes, sinus non tender Neck Supple, No JVD, +2 Carotid Pulse wo Bruit, No LAD Cardiovascular Regular Rate, Normal S1, Normal S2, systolic murmur , hard to assess heart sounds due to coughing fits Lungs diffuse rhonchi. coarse breath sounds Abdomen Normal Bowel Sounds, Soft, No Tenderness Neurological Normal Speech Extremities 1+ pitting edema lower extremities up to midcalf Vascular Normal Pulses Last 24 Hrs of Labs/Satnam: Laboratory Tests 11/25/16 0320: Anion Gap 17 H, Estimated GFR 14 L, BUN/Creatinine Ratio 12.6, Glucose 166 H, Calcium 9.0, Total Bilirubin 0.4, AST 18, ALT 20 L, Alkaline Phosphatase 126, Troponin I 0.04, Myd-W-Lexigepksaq Pept 01162 H, Total Protein 6.3, Albumin 3.7 , Globulin 2.6, Albumin/Globulin Ratio 1.4, PT 23.3 H, INR 2.24 H, CBC w Diff NO MAN DIFF REQ, RBC 3.47 L, MCV 86.0, MCH 27.1, RDW 22.7 H, MPV 9.5, Gran % 85.0 H, Lymphocytes % 5.0 L, Monocytes % 6.8, Eosinophils % 3.0, Basophils % 0.2, Absolute Granulocytes 11.2 H, Absolute Lymphocytes 0.7 L, Absolute Monocytes 0.9 H, Absolute Eosinophils 0.4, Absolute Basophils 0, PUBS MCHC 31.5 L Microbiology 11/25 544 LOWER RESP: Respiratory Culture - ORD 11/25 544 LOWER RESP: Gram Stain - ORD 11/25 319 BLOOD: Blood Culture - RECD 11/25 319 BLOOD: Blood Culture - RECD Diagnostic Data CXR Results No acute pulmonary findings. Enlarged cardiac silhouette. Assessment/Plan Assessment: 71-year-old male with PMH of atrial fibrillation on warfarin, ESRD on dialysis MWF, congestive heart failure with reduced ejection fraction, pacemaker/AICD, HTN, HLD, COPD not on home oxygen, IDDM, gout, presented with productive cough and shortness of breath. # Acute hypoxic respiratory failure due to COPD exacerbation (productive cough, desat) vs acute on chronic heart failure (high probnp, but also has ESRD and no JVD) vs HCAP (recent hospitalization, leukocytosis, but clear CXR) # Hx of COPD not on home oxygen # Hx of congestive heart failure with reduced ejection fraction * Continue albuterol * TRC/nebs * Azithromycin * Prednisone 40 bid * Follow BCX2, LRC, rapid flu * Consider urine legionella, urine strep pneumo but pt had PNA vaccine on Mon * Repeat CXR later today * Pulm consult with Dr. Perry in am * Cardio consult with Dr. Crandall in am * 80 mg PO lasix given (home dose 40 mg po bid) * Serial trop and EKG, tele monitoring # ESRD on dialysis MWF - Has Tiburcio cath on right chest - Plan for AV fistula on left arm * Continue dialysis * Nephro consult (Dr. Doshi) in am placed # Atrial fibrillation on warfarin - INR therapeutic * Continue warfarin 5 mg daily # HTN/AICD/Pacemaker * Continue metoprolol 50 mg bid, hydralazine 10 mg bid * Continue aspirin 81, isosorbide # HLD * Continue statin # IDDM * Accucheck and insulin ss # Gout * Continue colcichine 0.6 # Continue home meds * Omeprazole 40 mg * ferrous sulfate 325 bid * folic acid Diet: Renal dialysis diet DVT ppx: mech and pharm FULL CODE As Ranked By This Provider Problem List: 1. COPD exacerbation Core Measures/Miscellaneous Acute Coronary Syndrome ACS Diagnosis: No Cerebrovascular Accident CVA/TIA Diagnosis: No Congestive Heart Failure CHF Diagnosis: Yes Venous Thromboembolism VTE Risk Factors: Acute medical illness, Age > 40 VTE Prophylaxis Ordered Inpt: Mech & Pharm No Mech VTE prophylaxis d/t: No contraindications No VTE Pharm Prophylaxis d/t: No contraindications VTE Diagnosis: No VTE Type: NONE VTE Confirmed by (Test): NONE Severe Sepsis Severe Sepsis Present: No Septic Shock Septic Shock Present: No Miscellaneous Documentation Attending Case Discussed With: Dr. Childers Primary Care Physician: [facility] [facility]RE[address],YSABEL Burgos Patient sees these Specialists Dr Crandall cardiology Dr Eze Perry pulmonology Dr Doshi nephrology Level of Patient Care: Telemetry PEREZ LUCIA MD 11/25/16 0618: Resident Review Statement Resident Statement: examined this patient, discussed with wildlife biology internship, agreed with wildlife biology internship Other Findings: 71-year-old male with a past medical history of renal disease on hemodialysis, atrial fibrillation on Coumadin, coronary artery disease with CABG, pacemaker, COPD not on home O2, recent hospital admission for GI bleed presents to the hospital complaining of shortness of breath along with cough with white sputum production since Monday night after returning from dialysis. Denies fevers, chills, sick contacts. Denies chest pain, palpitations, lightheadedness. Episode of vomiting and then reports that his shortness of breath increased iron 2 L in ER to maintain saturation greater than 92%. Vitals 99.6, 86, 22, 159/68, 92% 2L NC Alert Oriented X4 DARREN, EOMI, no lymphadenopathy CVS S1, S2, hs difficult to assess due to respiratory status RS scattered rhonchi with bilateral course breath sounds Abdo NTND, BS+ Ext 1+ bilateral pitting edema to mid calf HH 9.4/29.9, WBC 13.2, granulocytes 85%, INR 2.24, BUN/Cr 53/4.2 (baseline 3), BS 166, BNP 42752, gap 17, Troponin, neg. BC pending. CXR no acute pulmonary findings, enlarged cardiac silhoutte, left sided sided pacemaker/AICD. EKG 87, QTc 510, Atrial sensed, ventricular paced 71 YO male with COPD, CAD, ESRD on HD presents to ER with acute hypoxic respiratory failure that has improved with nebulizers and O2 supplementation. Continue nebuilzer treatments, get sputum culture, will start azithromycin. will start prednisone. Monitor BS, started on home medications but with steroid use need close f/u. if spikes fevers may need to change abx, (history of MRSA in past with recent hosptialization) ESRD with HD -- need to schedule dialysis today, will place renal consultation. Able to urinate on his own with lasix as home medicaton will continue at current dose. Need to rule out other causes of SOB, 1st troponin negative will check in 6 hrs. Last ECHO 10/05/16 50-55%. Atrial fibrillation continue home medications and monitor INR 2.24. Dose accordingly OSCAR CHILDERS 11/25/16 0634: Attending MD Review Statement Attending Statement Attending MD Statement: examined this patient, discuss w/resident/PA/PRODUCTION LEAD, agreed w/resident/PA/PRODUCTION LEAD, reviewed EMR data (avail), reviewed images, amended to note Attending Assessment/Plan: CC: acute sob, productive cough PMHx: Afib on warfarin, ESRD on dialysis, HFrEF, CAD, pacemaker/AICD, HTN, HLD, COPD, IDDM, gout, FREDY (Stopped using CPAP 4-5 years back), Pulmonary hypertension, MGUS. Patient presents with acute worsening of shortness of breath started yesterday Associated with Productive cough With clear sputum production, All symptoms since 2 day. Patient went for dialysis on Monday without complications. patient a has chills at home, with subjective fever but denies any chest pain, Palpitations. Patient was recently admitted (-) for lower GI bleed. He had an episode of vomitting before coming to hospital, because of persistent cough, non-bloody, non-bilious. Later on, when SOB was getting worse, without relief with Inh at home patient called EMS, He was saturating 80s when EMS arrived, improved with Nebs. Vitals: T max 99.6, HR 86, RR 24, BP 159/68 and saturating 92% on 2 L. On exam a O 3, Respiratory distress, continuously coughing, no JVD, mucosa moist, no pharyngeal congestion, no lymphadenopathy, CVS: S1-S2, RRR are. RS: Bilateral coarse breathing, or rhonchi present, he shouldn't cannot take one complete deep breath without coughing. Abdomen: Soft, obese, NT, ND, bowel sounds present. No dependent edema. No focal neurological deficit. Labs: WBC 13.2 with neutrophils 85 %, sodium 148, chloride 108, anion gap 17, BUN 53, creatinine 4.2, glucose 166, proBNP 15,600. Troponin 0.04, INR 2.24. CXR: No acute pulmonary findings. EKG: Paced rhythm. A and P #1 acute hypoxic respiratory failure: This can be multifactorial. volume overload: given that patient has history of ESRD currently on HD, due today. Even though patient sounds coarse on auscultation, CXR does not mention any volume congestion at this point. Patient's proBNP is elevated as compared to his previous level. He does not have any elevated JVD or anasarca to need acute dialysis at this point. Consult nephrology for scheduled dialysis later today. As patient is on Lasix at home, give40 IV Lasix now. COPD exacerbation: continue albuterol ipratropium nebulization scheduled and when necessary, azithromycin, PO methylprednisolone 40 mg twice a day. Patient has low-grade fever with leukocytosis and healthcare contact, to CXR does not show any infiltrates. Patient has high risk factors for HCAP, if patient spikes fever I suggest to change antibiotic to broad-spectrum with vancomycin and ceftazidime (renal dosing). Obtain sputum culture, blood culture. Repeat chest x-ray tomorrow morning for developing PNA. Rule out acute coronary syndrome with serial troponins and EKG, telemetry monitoring. #2 ESRD: Currently on HD through [facility] catheter, consult nephrology for dialysis today. #3 history of A. fib: Continue warfarin according to INR. #4 DM: Continue home doses of Lantus, sliding scale short-acting insulin. #5 HFrEF, CAD, pacemaker/AICD, HTN, gout: continue Hydralazine, metoprolol, imdur #6 DVT prophylaxis : patient on warfarin
--- NOTE | 2016-11-25 05:12 | NUR ---
DR Kapoor HERE TO DEUCE.
--- NOTE | 2016-11-25 05:19 | ED DYSPNEA/ASTHMA COMPLAINT ---
History of Present Illness General Chief Complaint: Dyspnea (COPD, CHF, Other) Stated Complaint: SOB Source: patient, old records, EMS Exam Limitations: no limitations Vital Signs & Intake/Output Vital Signs & Intake/Output Vital Signs Date Time Temp Pulse Resp B/P Pulse O2 O2 Flow FiO2 Ox Delivery Rate 11/25 0511 83 24 132/61 93 Nasal 2.0L Cannula 11/25 0320 88 Room Air 11/25 0318 99.6 86 22 159/68 87 Room Air Allergies Coded Allergies: NO KNOWN ALLERGIES (10/04/16) Reconcile Medications Albuterol Sulfate (Proventil Hfa) 90 MCG HFA.AER.AD 1-2 PUFF INH Q4-6H PRN SHORTNESS OF BREATH (Reported) Albuterol Sulfate (Accuneb) 0.63 MG/3 ML VIAL.NEB 1 AMP INH TID PRN COPD ( Reported) Allopurinol 100 MG TABLET 1 TAB PO DAILY GOUT Aspirin (Ecotrin) 81 MG TABLET.DR 1 TAB PO DAILY HEART (Reported) Colchicine 0.6 MG TABLET 1 TAB PO DAILY GOUT (Reported) Ferrous Sulfate 325 MG (65 MG IRON) TABLET 1 TAB PO BID SUPPLEMENT (Reported) Folic Acid 1 MG TABLET 1 MG PO DAILY SUPPLEMENT (Reported) Furosemide (Lasix) 40 MG TABLET 2 TAB PO DAILY HEART (Reported) HYDRALAZINE HCL (Hydralazine) 10 MG TABLET 1 TAB PO BID BP (Reported) Insulin Glargine, Recombinan (Lantus) 100 U/ML SALIMA 12 UNIT SC DAILY DIABETES (Reported) Insulin Lispro (Humalog) 100 UNIT/ML VIAL diabetes (Reported) Blood sugar Insulin dose < 80mg/dl No dose 80-150 mg/dl No dose 151-200mg/dl One unit 201-250mg/dl Two units 251-300mg/dl Three units 301-350mg/dl Four units 351-400mg/dl Six units Above 400mg/dl Eight units and call MD. Isosorbide Mononitrate (Imdur) [address] TAB PO DAILY CAD (Reported) Metoprolol Tartrate (Lopressor) 50 MG TAB 1 TAB PO BID HEART (Reported) Omeprazole 20 MG CAPSULE.DR 1 CAP PO DAILY AC GI (Reported) Simvastatin (Zocor) 20 MG TAB 1 TAB PO 1700 CHOLESTEROL (Reported) Warfarin Sodium (Coumadin) 5 MG TABLET 1 TAB PO DAILY BLOOD THINNER (Reported ) please dose Coumadin as per INR. Core Measure Meds Pre-Hospital coumadin Triage Note: PER PT INCREASED SOB X 2 DAYS DENIES CP. UPON EMS ARRIVAL SATS 80'S INCREASED TO 90'S WITH DUONEB ENROUTE. Triage Nurses Notes Reviewed? yes Onset: Just prior to arrival Duration: hour(s):, constant, continues in ED, getting worse Timing: recent history Severity: severe Activities at Onset: rest Prior Episodes/Possible Cause: occasional episodes Modifying Factors: Improves With: rest. Worsens With: movement. Associated Symptoms: cough, wheezing, weakness HPI: Patient is due for hemodialysis today. Several hours prior to admission he developed progressive shortness of breath wheezing with productive cough. He denies fever chills nausea vomiting diarrhea abdominal pain chest pain headache dysuria rash bleeding. Past History Travel History Traveled to [facility] past 21 day No Medical History Any Pertinent Medical History? 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 Hx Contributory? No Review of Systems Review of Systems Constitutional: Reports: no symptoms. EENTM: Reports: no symptoms. Respiratory: Reports: see HPI, cough, short of breath, wheezing. Cardiovascular: Reports: no symptoms. GI: Reports: no symptoms. Genitourinary: Reports: no symptoms. Musculoskeletal: Reports: no symptoms. Skin: Reports: no symptoms. Neurological/Psychological: Reports: no symptoms. Hematologic/Endocrine: Reports: no symptoms. Immunologic/Allergic: Reports: no symptoms. All Other Systems: Reviewed and Negative Physical Exam Physical Exam General Appearance: well developed/nourished, alert, awake, anxious, moderate distress Head: atraumatic, normal appearance Eyes: Bilateral: normal appearance, PERRL, EOMI. Ears, Nose, Throat: normal pharynx, normal ENT inspection Neck: normal inspection, supple, full range of motion Respiratory: chest non-tender, decreased breath sounds, accessory muscle use, wheezing, rales Cardiovascular: normal peripheral pulses, irregularly irregular, norml femoral pulses equa Peripheral Pulses: 4+ carotid (R), 4+ carotid (L) Gastrointestinal: normal bowel sounds, soft, non-tender, no organomegaly Extremities: normal inspection, normal capillary refill, normal range of motion, no edema Neurologic/Psych: no motor/sensory deficits, awake, alert, oriented x 3, normal gait Skin: intact, normal color, warm/dry Lymphatic: no anterior cervical alea Core Measures ACS in differential dx? Yes Severe Sepsis Present: No Septic Shock Present: No Progress Differential Diagnosis: asthma, CHF, COPD, pneumonia Plan of Care: Orders Procedure Date/time Status Renal Dialysis Diet 11/25 B Active TRC EVALUATION (GEN) 11/25 05 Active Patient Data 11/25 0458 Active OXYGEN SETUP (GEN) 11/25 033 Active Saline Lock 11/25 033 Active Admit to inpatient 11/25 0331 Active Vital Signs 11/25 0331 Active Activity/Ambulation 11/25 0331 Active Code Status 11/25 0331 Active BLOOD CULTURE 11/25 032 Active TROPONIN LEVEL 11/25 032 Complete PROTHROMBIN TIME 11/25 032 Complete COMPREHENSIVE METABOLIC PANEL 11/25 032 Complete CBC WITHOUT DIFFERENTIAL 11/25 326 Complete B-TYPE NATRIURETIC PEP (BNP) 11/25 032 Complete EKG 11/25 032 Active Laboratory Tests 11/25/16 0320: Anion Gap 17 H, Estimated GFR 14 L, BUN/Creatinine Ratio 12.6, Glucose 166 H, Calcium 9.0, Total Bilirubin 0.4, AST 18, ALT 20 L, Alkaline Phosphatase 126, Troponin I 0.04, Suj-B-Eiojvpngdjd Pept 17172 H, Total Protein 6.3, Albumin 3.7 , Globulin 2.6, Albumin/Globulin Ratio 1.4, PT 23.3 H, INR 2.24 H, CBC w Diff NO MAN DIFF REQ, RBC 3.47 L, MCV 86.0, MCH 27.1, RDW 22.7 H, MPV 9.5, Gran % 85.0 H, Lymphocytes % 5.0 L, Monocytes % 6.8, Eosinophils % 3.0, Basophils % 0.2, Absolute Granulocytes 11.2 H, Absolute Lymphocytes 0.7 L, Absolute Monocytes 0.9 H, Absolute Eosinophils 0.4, Absolute Basophils 0, PUBS MCHC 31.5 L Microbiology 11/25 319 BLOOD: Blood Culture - RECD 11/25 319 BLOOD: Blood Culture - RECD Initial ED EKG: pacemaker rhythm Prior EKG: unchanged Rhythm Strip: normal sinus rhythm Departure Departure Time of Disposition: 429 Disposition: STILL A PATIENT Condition: Stable Clinical Impression Primary Impression: Volume overload Qualifiers: Hypervolemia type: unspecified Qualified Code: E87.70 - Fluid overload, unspecified Secondary Impressions: End-stage renal disease on hemodialysis Referrals: [address],YSABEL Burgos (PCP/Family) Departure Forms: Customer Survey General Discharge Information Admission Note Spoke With: OSCAR SANFORD MD Documentation of Exam: Documentation of any treatments & extenuating circumstances including Concerns Regarding Discharge (functional status, medication knowledge or non-compliance, living conditions, etc.) that warrant an admission rather than observation: Supplemental oxygen hemodialysis beta agonist neb nephrology evaluation medication adjustment continuing care discharge planning Critical Care Note Critical Care Note Critical Care Time: non-applicable
--- NOTE | 2016-11-25 05:20 | NUR ---
WHEEZING AND COUGHING. RT CALLED FOR NEB TX.
--- NOTE | 2016-11-25 05:37 | NUR ---
ALBUTEROL TX GIVEN BY ALESIA HAILE.
--- NOTE | 2016-11-25 05:46 | NUR ---
REPORT CALLED TO GOLD BAIRD PT TO GO TO RM [id number]
[2016-11-25 06:00] VITALS: BP 120/75
--- NOTE | 2016-11-25 06:39 | Admission Certification ---
Admission Certification Certification Statement - As attending physician, I certify that at the time of - admission, based on clinical presentation, severity of - symptoms, need for further diagnostic testing and - therapeutic interventions, and risk of adverse outcomes - without in-hospital treatment, in my clinical assessment, - this patient requires an acute hospital stay for a minimum - of two nights or longer. I have also considered psychsocial - factors such as support system, advanced age, financial - issues, cognitive issues, and failed out-patient treatments, - past re-admission history, safety of patient, and lack of - compliance as applicable. Specific rationale supporting this admission is: acute respiratory failure : volume overload and COPD exacerbation
--- NOTE | 2016-11-25 07:00 | NUR ---
PT ARRIVED VIA STRECHER FROM ER. ORIENTED TO ROOM, CALL SALTER, AND STAFF. A/O X3. 92% ON 2L NC. SKIN CDI. LCW PACER. LCW SALMA-CATH, DIALYSIS THIS AM. IV ZITHRO. NO C/O PAIN OR DISCOMFORT.
--- NOTE | 2016-11-25 07:30 | PN- Housestaff ---
[address],LEELA 11/25/16 0729: Subjective Follow-up For: Cough, shortness of breath Subjective: Patient was complaining that he was not able to sleep last night as he was awaken many times. He looks comfortable with no distress. c/o cough, shortness of breath improved since admission. Denies chest pain, palpitation, dizziness. Has not urinated since coming to the hospital Review of Systems Constitutional: Reports: see HPI. Objective Last 24 Hrs of Vital Signs/I&O Vital Signs Date Time Temp Pulse Resp B/P Pulse O2 O2 Flow FiO2 Ox Delivery Rate 11/25 0614 92 Nasal 2.0L Cannula 11/25 06 98.7 86 22 120/75 92 Nasal 2.0L Cannula 11/25 0533 92 Nasal 2.0L Cannula 11/25 0511 83 24 132/61 93 Nasal 2.0L Cannula 11/25 0320 88 Room Air 11/25 0318 99.6 86 22 159/68 87 Room Air Intake & Output 11/25 1600 11/25 0800 11/25 0000 Intake Total 370 Output Total Balance 370 Intake, IV 50 Intake, Oral 320 Patient 183 lb Weight Physical Exam General Appearance: Alert, Oriented X3, Cooperative, No Acute Distress Skin: No Rashes Cardiovascular: Regular Rate, Normal S1, Normal S2, systolic murmur present in the parasternal area. Lungs: b/l ronchi present, no crackles Abdomen: Normal Bowel Sounds, Soft, No Tenderness Neurological: Normal Speech Extremities: b/l pitting edema present, chronic venous stasis changes present in the legs Ilya cath on the right chest appears clean without evidence of infection Current Medications: Current Medications Sig/Johnna Start time Last Medication Dose Route Stop Time Status Admin Acetaminophen 650 MG Q6P PRN 11/25 544 AC PO Albuterol Sulfate 3 ML BID 11/250 AC INH Albuterol Sulfate 3 ML Q6 PRN 11/25 0445 DC 11/25 INH 0811 Albuterol Sulfate 0 .STK-MED ONE 11/25 527 DC INH Aspirin Buffered 81 MG DAILY 11/25 1000 AC PO Atorvastatin Calcium 20 MG 1700 11/25 1700 AC PO Azithromycin 500 MG DAILY 11/25 0545 AC 11/25 Dextrose/Water 250 ML IV 0546 Colchicine 300 MCG DAILY 11/25 1000 AC PO Ferrous Sulfate 325 MG BID 11/25 1000 AC PO Folic Acid 1 MG DAILY 11/25 1000 AC PO Furosemide 80 MG 0700 11/25 0700 AC 11/25 PO 0640 Hydralazine HCl 10 MG BID 11/25 1000 AC PO Insulin Aspart 0 TIDAC 11/25 0800 AC SC Insulin Detemir 12 UNITS BID 11/25 1000 AC SC Isosorbide 60 MG DAILY 11/25 1000 AC Mononitrate PO Metoprolol Tartrate 50 MG BID 11/25 1000 AC PO Omeprazole 20 MG DAILY AC 11/25 0700 DC PO Omeprazole 40 MG DAILY AC 11/25 0700 AC 11/25 PO 0639 Prednisone 40 MG BID 11/25 1000 AC PO Last 24 Hrs of Lab/Satnam Results Last 24 Hrs of Labs/Mics: Laboratory Tests 11/25/16319: Anion Gap 17 H, Estimated GFR 14 L, BUN/Creatinine Ratio 12.6, Glucose 166 H, Calcium 9.0, Total Bilirubin 0.4, AST 18, ALT 20 L, Alkaline Phosphatase 126, Troponin I 0.04, Hje-L-Nsyrzaoxddc Pept 05407 H, Total Protein 6.3, Albumin 3.7 , Globulin 2.6, Albumin/Globulin Ratio 1.4, PT 23.3 H, INR 2.24 H, CBC w Diff NO MAN DIFF REQ, RBC 3.47 L, MCV 86.0, MCH 27.1, RDW 22.7 H, MPV 9.5, Gran % 85.0 H, Lymphocytes % 5.0 L, Monocytes % 6.8, Eosinophils % 3.0, Basophils % 0.2, Absolute Granulocytes 11.2 H, Absolute Lymphocytes 0.7 L, Absolute Monocytes 0.9 H, Absolute Eosinophils 0.4, Absolute Basophils 0, PUBS MCHC 31.5 L Microbiology 11/25 544 LOWER RESP: Respiratory Culture - ORD 11/25 544 LOWER RESP: Gram Stain - ORD 11/25 319 BLOOD: Blood Culture - RECD 11/25 319 BLOOD: Blood Culture - RECD Assessment/Plan Assessment: 71-year-old male with PMH of atrial fibrillation on warfarin, ESRD on dialysis MWF, congestive heart failure with reduced ejection fraction, pacemaker/AICD, HTN, HLD, COPD not on home oxygen, IDDM, gout, presented with shortness of breath. 1. Acute hypoxic respiratory failure secondary to COPD exacerbation along with a component of fluid overload in the setting of end-stage renal disease on dialysis. X-ray on admission did not show evidence of fluid overload. He is currently on by mouth prednisone twice a day and azithromycin for anti- inflammatory properties. Will continue TRC nebulizes. 2. Congestive heart failure with reduced ejection fraction: pacemaker/AICD. Takes 80 mg of Lasix at home which is continue the hospital. We will consult cardiology recommendation on diuretics. Last echocardiogram September 2016 showed ejection fraction of 50%, aortic valve 80 of 1.1 cm RVSP of 52. follows Dr. Crandall. We'll continue to monitor daily weights and I's and O's. Oliguric 3. End-stage renal disease on hemodialysis due to hypertensive nephrosclerosis and diabetic nephropathy: Patient was started on dialysis in September during his previous admission. We'll consult nephrology and plan for dialysis today. 4. Leukocytosis: No evidence of infection. Ilya cath site looks clean. Will monitor off of antibiotics pending cultures. We'll follow CBCs in a.m. 5. Gout: Patient takes allopurinol and colchicine. Allopurinol not restarted by overnight team. Comfortable medical history the patient. 6. Hypertension: Her pressure stable will continue his medication 7. Diabetes mellitus: Currently on NovoLog sliding scale and long-acting basal insulin 8. Atrial fibrillation: Rate controlled on Coumadin. INR therapeutic Diet: Renal dialysis diet DVT ppx: mech and pharm FULL CODE Problem List: 1. End-stage renal disease on hemodialysis 2. Volume overload 3. CHF (congestive heart failure) Pain Ratin Pain Location: legs Pain Goal: Remain pain free Pain Plan: none Tomorrow's Labs & Rationales: yes IRA HERBERT MD 11/25/16 1522: Attending MD Review Statement Attending Statement Attending MD Statement: examined this patient, discuss w/resident/PA/NEW CAR GET READY MECHANIC, agreed w/resident/PA/NEW CAR GET READY MECHANIC, reviewed EMR data (avail), discussed with nursing, discussed with case mgmt Attending Assessment/Plan: 71-year-old male past medical history of ESRD on hemodialysis recently started, diabetes COPD and A. fib on Coumadin. He is here with acute hypoxemic respiratory failure. We are treating him with IV steroids for presumed COPD exacerbation the have Dr. Perry on board. Nephrology has started dialysis. We are dosing his Coumadin to keep his INR therapeutic and will follow closely.
[2016-11-25 08:30] VITALS: BP 132/50
--- NOTE | 2016-11-25 10:41 | Cons- Pulmonary ---
General Information and HPI Consulting Request Date of Consult: 11/25/16 Requested By: Dr. Hernandez Reason for Consult: cough, dyspnea Source of Information: patient Exam Limitations: no limitations History of Present Illness: 71 year old man. ESRD, CHF, COPD. Recent GI bleed and admission to ICU. Hx of MGUS and pulmonary htn. Presentes with a cough and dyspnea and leg edema. Due for HD. Possibly viral illness contacts, no travel hx. Some wheezing and non-productive cough. CXR overall clear. Hx of CHF on diuresis and ESRD on HD. Allergies/Medications Allergies: Coded Allergies: NO KNOWN ALLERGIES (10/04/16) Home Med List: Albuterol Sulfate (Proventil Hfa) 90 MCG HFA.AER.AD 1-2 PUFF INH Q4-6H PRN SHORTNESS OF BREATH (Reported) Albuterol Sulfate (Accuneb) 0.63 MG/3 ML VIAL.NEB 1 AMP INH TID PRN COPD ( Reported) Allopurinol 100 MG TABLET 1 TAB PO DAILY GOUT Aspirin (Ecotrin) 81 MG TABLET.DR 1 TAB PO DAILY HEART (Reported) Colchicine 0.6 MG TABLET 1 TAB PO DAILY GOUT (Reported) Ferrous Sulfate 325 MG (65 MG IRON) TABLET 1 TAB PO BID SUPPLEMENT (Reported) Folic Acid 1 MG TABLET 1 MG PO DAILY SUPPLEMENT (Reported) Furosemide (Lasix) 40 MG TABLET 2 TAB PO DAILY HEART (Reported) HYDRALAZINE HCL (Hydralazine) 10 MG TABLET 1 TAB PO BID BP (Reported) Insulin Glargine, Recombinan (Lantus) 100 U/ML SALIMA 12 UNIT SC DAILY DIABETES (Reported) Insulin Lispro (Humalog) 100 UNIT/ML VIAL diabetes (Reported) Blood sugar Insulin dose < 80mg/dl No dose 80-150 mg/dl No dose 151-200mg/dl One unit 201-250mg/dl Two units 251-300mg/dl Three units 301-350mg/dl Four units 351-400mg/dl Six units Above 400mg/dl Eight units and call MD. Isosorbide Mononitrate (Imdur) [address] 1 TAB PO DAILY CAD (Reported) Metoprolol Tartrate (Lopressor) 50 MG TAB 1 TAB PO BID HEART (Reported) Omeprazole 20 MG CAPSULE.DR 1 CAP PO DAILY AC GI (Reported) Simvastatin (Zocor) 20 MG TAB 1 TAB PO 1700 CHOLESTEROL (Reported) Warfarin Sodium (Coumadin) 5 MG TABLET 1 TAB PO DAILY BLOOD THINNER (Reported ) please dose Coumadin as per INR. Current Medications: Current Medications Sig/Johnna Start time Last Medication Dose Route Stop Time Status Admin Acetaminophen 650 MG Q6P PRN 11/25 0545 AC PO Albuterol Sulfate 3 ML BID 11/25 2200 AC INH Albuterol Sulfate 3 ML Q6 PRN 11/25 0545 DC 11/25 INH 0811 Albuterol Sulfate 0 .STK-MED ONE 11/25 0528 DC INH Aspirin Buffered 81 MG DAILY 11/25 1000 AC PO Atorvastatin Calcium 20 MG 1700 11/25 1700 AC PO Azithromycin 500 MG DAILY 11/25 0545 AC 11/25 Dextrose/Water 250 ML IV 0546 Colchicine 300 MCG DAILY 11/25 1000 AC PO Ferrous Sulfate 325 MG BID 11/25 1000 AC PO Folic Acid 1 MG DAILY 11/25 1000 AC PO Furosemide 80 MG 0700 11/25 0700 AC 11/25 PO 0640 Hydralazine HCl 10 MG BID 11/25 1000 AC PO Insulin Aspart 0 TIDAC 11/25 0800 AC SC Insulin Detemir 12 UNITS BID 11/25 1000 AC SC Isosorbide 60 MG DAILY 11/25 1000 AC Mononitrate PO Metoprolol Tartrate 50 MG BID 11/25 1000 AC PO Omeprazole 20 MG DAILY AC 11/25 0700 DC PO Omeprazole 40 MG DAILY AC 11/25 0700 AC 11/25 PO 0639 Prednisone 40 MG BID 11/25 1000 AC PO Review of Systems Comments 18 point Review of Systems performed. Positive and negative pertinent findings are deliniated in the HPI. Otherwise the ROS is negative. 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 Psychosocial History Where Do You Live? Home Who Do You Live With? self Services at Home: None Primary Language: Spanish Smoking Status: Former Smoker ETOH Use: denies use Illicit Drug Use: denies illicit drug use Functional Ability ADLs Independent: dressing, eating, toileting, bathing. Ambulation: independent IADLs Independent: shopping, housework, finances, food prep, telephone, transportation , medication admin. Exam & Diagnostic Data Last 24 Hrs of Vital Signs/I&O Vital Signs Date Time Temp Pulse Resp B/P Pulse O2 O2 Flow FiO2 Ox Delivery Rate 11/25 0844 Nasal 1.0L Cannula 11/25 0844 95 Nasal 1.0L Cannula 11/25 0830 98.9 75 20 132/50 93 Nasal 1.0L Cannula 11/25 0614 92 Nasal 2.0L Cannula 11/25 0600 98.7 86 22 120/75 92 Nasal 2.0L Cannula 11/25 0533 92 Nasal 2.0L Cannula 11/25 0511 83 24 132/61 93 Nasal 2.0L Cannula 11/25 0320 88 Room Air 11/25 0318 99.6 86 22 159/68 87 Room Air Intake & Output 11/25 1600 11/25 0800 11/25 0000 Intake Total 370 Output Total Balance 370 Intake, IV 50 Intake, Oral 320 Patient 183 lb Weight Physical Exam Other Physical Findings: gen awake and alert heent ncat cvs s1, s2 lungs rare wheeze abd soft, bs+ ext chronic venous stasis Last 48 Hrs of Labs/Satnam: Laboratory Tests 11/25/16913: Troponin I Pending 11/25/16319: Anion Gap 17 H, Estimated GFR 14 L, BUN/Creatinine Ratio 12.6, Glucose 166 H, Calcium 9.0, Total Bilirubin 0.4, AST 18, ALT 20 L, Alkaline Phosphatase 126, Troponin I 0.04, Rfi-P-Adzkwroqypg Pept 66393 H, Total Protein 6.3, Albumin 3.7 , Globulin 2.6, Albumin/Globulin Ratio 1.4, PT 23.3 H, INR 2.24 H, CBC w Diff NO MAN DIFF REQ, RBC 3.47 L, MCV 86.0, MCH 27.1, RDW 22.7 H, MPV 9.5, Gran % 85.0 H, Lymphocytes % 5.0 L, Monocytes % 6.8, Eosinophils % 3.0, Basophils % 0.2, Absolute Granulocytes 11.2 H, Absolute Lymphocytes 0.7 L, Absolute Monocytes 0.9 H, Absolute Eosinophils 0.4, Absolute Basophils 0, PUBS MCHC 31.5 L Assessment/Plan Impression/Plan: Impression 71 year old man. ESRD, CHF, COPD. Recent GI bleed and admission to ICU. Hx of MGUS and pulmonary htn. Presentes with a cough and dyspnea and leg edema. Due for HD. Possibly viral illness contacts, no travel hx. Some wheezing and non-productive cough. CXR overall clear. Hx of CHF on diuresis and ESRD on HD. Plan - plan for HD with fluid removal and reassess sx - resume home inhalers - TRC/Nebs - diuresis - nephrology input - f/u cardiology - would change prednisone to 60 mg daily with a plan to taper by 10mg every 2 days - DVT prophylaxis at all times Consult Acknowledgment - Thank you for your consult request.
--- NOTE | 2016-11-25 10:55 | RADIOLOGY REPORT ---
EXAMINATION: XR CHEST CLINICAL INFORMATION: Acute hypoxic respiratory failure. Cough. Productive sputum. COMPARISON: Chest x-ray dated 11/25/2016, 03/02/2015, 02/16/2015. TECHNIQUE: AP semierect and lateral views of the chest were obtained. FINDINGS: Right atrial and right coronary sinus pacer leads and right ventricular AICD lead are seen in place, unchanged. Generator box partially obscured assessment of the left mid chest. A right jugular dual-lumen catheter is seen with tip at the cavoatrial junction, unchanged. The patient is status post median sternotomy and CABG surgery. The cardiomediastinal silhouette is enlarged, unchanged. Calcification of the aorta is noted. The lungs bilaterally are symmetrically expanded and demonstrate slight thickening of the central airways and mild central vascular congestion. No evidence of focal lung consolidation, effusion, pulmonary edema or pneumothorax is seen. Multilevel mild vertebral spondylosis is seen in the lower thoracic spine. Bony structures are otherwise unremarkable. IMPRESSION: 1. Pacer/AICD leads and right jugular double-lumen catheter unchanged in position. 2. Cardiomegaly with central vascular congestion. No overt pulmonary edema. 3. Mild thickening of central airways, either related to central vascular congestion or reactive airways disease/bronchitis. No focal pneumonia.
--- NOTE | 2016-11-25 11:31 | Cons- Nephrology ---
General Information and HPI Consulting Request Date of Consult: 11/25/16 Requested By: [address],IRA Pham Reason for Consult: Evaluation and management of end-stage renal disease Source of Information: patient, old records Exam Limitations: no limitations History of Present Illness: The patient is a 71-year-old gentleman with a known history of progressive kidney disease due to diabetes and hypertension. He also has a history of congestive heart failure with systolic dysfunction. He is also status post an AICD. He is typically dialyzed every Monday at [facility] [place] [facility]. His most recent treatment was on November 23, which was this past Monday. He arrives now with worsening shortness of breath. Day is his dialysis day. He denies any fevers or chills. He denies productive cough. It is noted however that he does seem to be gaining quite a bit of weight in between dialysis treatments. Allergies/Medications Allergies: Coded Allergies: NO KNOWN ALLERGIES (10/04/16) Home Med List: Albuterol Sulfate (Proventil Hfa) 90 MCG HFA.AER.AD 1-2 PUFF INH Q4-6H PRN SHORTNESS OF BREATH (Reported) Albuterol Sulfate (Accuneb) 0.63 MG/3 ML VIAL.NEB 1 AMP INH TID PRN COPD ( Reported) Allopurinol 100 MG TABLET 1 TAB PO DAILY GOUT Aspirin (Ecotrin) 81 MG TABLET.DR 1 TAB PO DAILY HEART (Reported) Colchicine 0.6 MG TABLET 1 TAB PO DAILY GOUT (Reported) Ferrous Sulfate 325 MG (65 MG IRON) TABLET 1 TAB PO BID SUPPLEMENT (Reported) Folic Acid 1 MG TABLET 1 MG PO DAILY SUPPLEMENT (Reported) Furosemide (Lasix) 40 MG TABLET 2 TAB PO DAILY HEART (Reported) HYDRALAZINE HCL (Hydralazine) 10 MG TABLET 1 TAB PO BID BP (Reported) Insulin Glargine, Recombinan (Lantus) 100 U/ML SALIMA 12 UNIT SC DAILY DIABETES (Reported) Insulin Lispro (Humalog) 100 UNIT/ML VIAL diabetes (Reported) Blood sugar Insulin dose < 80mg/dl No dose 80-150 mg/dl No dose 151-200mg/dl One unit 201-250mg/dl Two units 251-300mg/dl Three units 301-350mg/dl Four units 351-400mg/dl Six units Above 400mg/dl Eight units and call MD. Archibaldrbide Mononitrate (Imdur) [address] 1 TAB PO DAILY CAD (Reported) Metoprolol Tartrate (Lopressor) 50 MG TAB 1 TAB PO BID HEART (Reported) Omeprazole 20 MG CAPSULE.DR 1 CAP PO DAILY AC GI (Reported) Simvastatin (Zocor) 20 MG TAB 1 TAB PO 1700 CHOLESTEROL (Reported) Warfarin Sodium (Coumadin) 5 MG TABLET 1 TAB PO DAILY BLOOD THINNER (Reported ) please dose Coumadin as per INR. Current Medications: Current Medications Sig/Johnna Start time Last Medication Dose Route Stop Time Status Admin Acetaminophen 650 MG Q6P PRN 11/25 0545 AC PO Albuterol Sulfate 3 ML BID 11/25 2200 AC 11/25 INH 1236 Albuterol Sulfate 3 ML Q6 PRN 11/25 0545 DC 11/25 INH 0811 Albuterol Sulfate 0 .STK-MED ONE 11/25 0528 DC INH Aspirin Buffered 81 MG DAILY 11/25 1000 AC 11/25 PO 1045 Atorvastatin Calcium 20 MG 1700 11/25 1700 AC 11/25 PO 1559 Azithromycin 500 MG DAILY 11/25 0545 AC 11/25 Dextrose/Water 250 ML IV 0546 Colchicine 300 MCG DAILY 11/25 1000 AC 11/25 PO 1057 Epoetin Guzman 2,000 UNIT MoWeFr PRN 11/25 1040 AC IV Epoetin Guzman 3,000 UNIT MoWeFr PRN 11/25 1040 AC IV Ferrous Sulfate 325 MG BID 11/25 1000 AC 11/25 PO 1045 Folic Acid 1 MG DAILY 11/25 1000 AC 11/25 PO 1043 Furosemide 80 MG 0700 11/25 0700 AC 11/25 PO 0640 Hydralazine HCl 10 MG BID 11/25 1000 DC 11/25 PO 1044 Insulin Aspart 0 TIDAC 11/25 0800 AC 11/25 SC 1558 Insulin Detemir 12 UNITS BID 11/25 1000 AC SC Isosorbide 60 MG DAILY 11/25 1000 AC 11/25 Mononitrate PO 1043 Methylprednisolone 40 MG Q8 11/25 2200 AC IV Methylprednisolone 125 MG ONCE ONE 11/25 1245 DC 11/25 IV 11/25 1246 1307 Metoprolol Tartrate 50 MG BID 11/25 1000 AC 11/25 PO 1043 Omeprazole 20 MG DAILY AC 11/25 0700 DC PO Omeprazole 40 MG DAILY AC 11/25 0700 AC 11/25 PO 0639 Paricalcitol 2 MCG MoWeFr PRN 11/25 1040 AC IV Prednisone 40 MG BID 11/25 1000 DC 11/25 PO 1044 Warfarin Sodium 5 MG COUMADIN 1700 ONE 11/25 1700 AC 11/25 PO 11/25 1701 1559 Review of Systems Review of Systems Constitutional: Denies: chills, diaphoresis, fever, malaise, weakness. EENTM: Denies: blurred vision, double vision. Cardiovascular: Denies: chest pain. Respiratory: Reports: cough, orthopnea, short of breath, wheezing. Denies: sputum production. GI: Denies: bloating, constipation, nausea, bloody stool. Musculoskeletal: Denies: back pain, joint pain, joint swelling. Skin: Reports: no symptoms. Neurological/Psychological: Denies: headache, pre-existing deficit, petit mal seizures. 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 Psychosocial History Where Do You Live? Home Who Do You Live With? self Services at Home: None Primary Language: Albanian Smoking Status: Former Smoker ETOH Use: denies use Illicit Drug Use: denies illicit drug use Functional Ability ADLs Independent: dressing, eating, toileting, bathing. Ambulation: independent IADLs Independent: shopping, housework, finances, food prep, telephone, transportation , medication admin. Exam & Diagnostic Data Vital Signs and I&O Vital Signs Date Time Temp Pulse Resp B/P Pulse O2 O2 Flow FiO2 Ox Delivery Rate 11/25 1044 132/62 11/25 1043 132/60 11/25 1043 132/62 11/25 0844 Nasal 1.0L Cannula 11/25 0844 95 Nasal 1.0L Cannula 11/25 0830 98.9 75 20 132/50 93 Nasal 1.0L Cannula 11/25 0614 92 Nasal 2.0L Cannula 11/25 0600 98.7 86 22 120/75 92 Nasal 2.0L Cannula 11/25 0533 92 Nasal 2.0L Cannula 11/25 0511 83 24 132/61 93 Nasal 2.0L Cannula 11/25 0320 88 Room Air 11/25 0318 99.6 86 22 159/68 87 Room Air Intake & Output 11/25 1600 11/25 0400 11/24 04011/23 040 Intake Total 370 Output Total Balance 370 Intake, IV 50 Intake, Oral 320 Patient 183 lb 155 lb Weight Physical Exam General Appearance: well developed/nourished, alert, awake, mild distress Head: atraumatic Eyes: Bilateral: PERRL, EOMI. Ears, Nose, Throat: normal pharynx Neck: normal inspection, supple, trachea mid line Respiratory: decreased breath sounds Cardiovascular: regular rate/rhythm Peripheral Pulses: 2+ tibialis posterior (R), 2+ tibialis posterior (L), 2+ dorsalis pedis (R), 2+ dorsalis pedis (L) Gastrointestinal: normal bowel sounds, soft, distention Extremities: normal inspection Neurologic/Psych: no motor/sensory deficits Skin: intact, normal color, warm/dry Results Pertinent Lab Results: Laboratory Tests 11/25 11/25 0914 0320 Chemistry Sodium (137 - 145 mmol/L) 148 H Potassium (3.5 - 5.1 mmol/L) 4.6 Chloride (98 - 107 mmol/L) 108 H Carbon Dioxide (22 - 30 mmol/L) 23 Anion Gap (5 - 16) 17 H BUN (9 - 20 mg/dL) 53 H Creatinine (0.7 - 1.2 mg/dL) 4.2 H Estimated GFR (>60 ml/min) 14 L BUN/Creatinine Ratio (7 - 25 %) 12.6 Glucose (65 - 99 mg/dL) 166 H Calcium (8.4 - 10.2 mg/dL) 9.0 Total Bilirubin (0.2 - 1.3 mg/dL) 0.4 AST (17 - 59 U/L) 18 ALT (21 - 72 U/L) 20 L Alkaline Phosphatase (< 127 U/L) 126 Troponin I (<0.11 ng/ml) 0.05 0.04 Php-J-Ibicphcbilg Pept (<125 pg/mL) 59173 H Total Protein (6.3 - 8.2 g/dL) 6.3 Albumin (3.5 - 5.0 g/dL) 3.7 Globulin (1.9 - 4.2 gm/dL) 2.6 Albumin/Globulin Ratio (1.1 - 2.2 %) 1.4 Coagulation PT (9.4 - 12.5 SEC) 23.3 H INR (0.90 - 1.17) 2.24 H Hematology CBC w Diff NO MAN DIFF REQ WBC (4.8 - 10.8 /CUMM) 13.2 H RBC (4.70 - 6.10 /CUMM) 3.47 L Hgb (14.0 - 18.0 G/DL) 9.4 L Hct (42 - 52 %) 29.9 L MCV (80.0 - 94.0 FL) 86.0 MCH (27.0 - 31.0 PG) 27.1 RDW (11.5 - 14.5 %) 22.7 H Plt Count (130 - 400 /CUMM) 152 MPV (7.4 - 10.4 FL) 9.5 Gran % (42.2 - 75.2 %) 85.0 H Lymphocytes % (20.5 - 51.1 %) 5.0 L Monocytes % (1.7 - 9.3 %) 6.8 Eosinophils % (0 - 5 %) 3.0 Basophils % (0.0 - 2.0 %) 0.2 Absolute Granulocytes (1.4 - 6.5 /CUMM) 11.2 H Absolute Lymphocytes (1.2 - 3.4 /CUMM) 0.7 L Absolute Monocytes (0.10 - 0.60 /CUMM) 0.9 H Absolute Eosinophils (0.0 - 0.7 /CUMM) 0.4 Absolute Basophils (0.0 - 0.2 /CUMM) 0 PUBS MCHC (33.0 - 37.0 G/DL) 31.5 L Assessment/Plan Assessment/Recommendations Assessment: 1. Shortness of breath. He has been gaining quite a bit of weight in between treatments. We'll assess his need once his weight is known. 2. End-stage renal disease on hemodialysis. Hemodialysis will be offered today 3. Ischemic cardiomyopathy with decreased ejection fraction 4. Atrial fibrillation 5. COPD 6. Obstructive sleep apnea 7. 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 Hypertension 9. Anemia 10. Hyperlipidemia Recommendations: 1. Hemodialysis today for 3.5 hours with 400 blood flow. 2. Next hemodialysis will be on Monday. 3. We'll plan 3 perhaps 4 L of ultrafiltration if he tolerates it. 4. Please maintain a 2 g sodium, 2 g potassium, 1000 mL fluid restriction with no concentrated sweet diet. 5. Stop the ferrous sulfate. It is not well absorbed in people with advanced chronic kidney disease particularly those with late stage IV and stage V on hemodialysis. It is not absorbed. It is therefore not effective. In addition, it causes constipation and nausea and vomiting. It is therefore ineffective and poorly tolerated. Please stop it. If he should require iron therapy in the future, it is best given IV with hemodialysis.
--- NOTE | 2016-11-25 17:29 | Event Note ---
Event Note Event Note: Called by the nursing as patient was having difficulty in breathing. On examination patient looked and discomfort, saturating 90%. Was on dialysis. His blood pressure was in 90s hence decision was made by the grants assistant to infuse 600 mL during dialysis. His ABGs were done which showed an oxygen saturation of 77% on 3 L and a carbon dioxide of 48. Patient has history of chronic CO2 retention and he was alert and awake. Exam chest has diffuse expiratory wheezing with no crackles Plan This could be COPD exacerbation. He was started on by mouth prednisone this morning. We will change him to IV Solu-Medrol with a stress dose and continue 40 every 8. 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 Allergies recommendation on Lasix dose pending. If patient becomes hypoxic overnight please obtain chest x-ray stat and consider placing on BiPAP if he allows. He may also benefit from IV Lasix but would require a higher dose given his end-stage renal disease. Please check with attending for recommendation.
[2016-11-25 18:24] VITALS: BP 128/50
--- NOTE | 2016-11-25 19:56 | Cons- Cardiology ---
General Information and HPI Consulting Request Date of Consult: 11/25/16 Requested By: PIEDAD STREET,IRA Pham Source of Information: patient, old records History of Present Illness: History of Present Illness: 71-year-old male with PMH of atrial fibrillation on warfarin, ESRD on dialysis MWF, congestive heart failure with reduced ejection fraction, pacemaker/AICD, HTN, HLD, COPD not on home oxygen, IDDM, gout, presented with shortness of breath. EMS reported sats in 80s, improved to 90s with duoneb. His sat in ED was 87% on RA, improved to 93% on 2L O2. He was getting a breathing treatment when we evaluated him in the ED. He was sitting comfortably at the edge of the bed, not in respiratory distress, but was frequently coughing. Pt was feeling well since last discharge, until night. He was having frequent cough and the cough takes his "breath away" and makes him feel short of breath. His cough is productive of thick white sputum. He would cough up about a tablespoon each time. He reported 1 episode of "vomiting" clear liquid, unsure if he actually vomited or coughed up the sputum. Today in dialysis the patient became more hypotensive and also was noted to be much more dyspneic. He continues to cough with production of whitish yellow sputum. No chest pain or other cardiac symptoms Allergies/Medications Allergies: Coded Allergies: NO KNOWN ALLERGIES (10/04/16) Home Med List: Albuterol Sulfate (Proventil Hfa) 90 MCG HFA.AER.AD 1-2 PUFF INH Q4-6H PRN SHORTNESS OF BREATH (Reported) Albuterol Sulfate (Accuneb) 0.63 MG/3 ML VIAL.NEB 1 AMP INH TID PRN COPD ( Reported) Allopurinol 100 MG TABLET 1 TAB PO DAILY GOUT Aspirin (Ecotrin) 81 MG TABLET.DR 1 TAB PO DAILY HEART (Reported) Budesonide/Formoterol Fumarate (Symbicort 80-4.5 Mcg Inhaler) 80 MCG-4.5 MCG/ ACTUATION HFA.AER.AD 2 PUF INH BID copd Colchicine 0.6 MG TABLET 1 TAB PO DAILY GOUT (Reported) Ferrous Sulfate 325 MG (65 MG IRON) TABLET 1 TAB PO BID SUPPLEMENT (Reported) Folic Acid 1 MG TABLET 1 MG PO DAILY SUPPLEMENT (Reported) Furosemide (Lasix) 40 MG TABLET 2 TAB PO DAILY HEART (Reported) Guaifenesin (Mucinex) 600 MG TAB.ER.12H 1 TAB PO BID MUCOLYTIC Insulin Glargine, Recombinan (Lantus) 100 U/ML SALIMA 12 UNIT SC DAILY DIABETES (Reported) Insulin Lispro (Humalog) 100 UNIT/ML VIAL diabetes (Reported) Blood sugar Insulin dose < 80mg/dl No dose 80-150 mg/dl No dose 151-200mg/dl One unit 201-250mg/dl Two units 251-300mg/dl Three units 301-350mg/dl Four units 351-400mg/dl Six units Above 400mg/dl Eight units and call MD. Isosorbide Mononitrate (Imdur) [address] 1 TAB PO DAILY CAD (Reported) Loratadine (Claritin) 10 MG TABLET 1 TAB PO DAILY NASAL CONGESTION Metoprolol Tartrate (Lopressor) 50 MG TAB 1 TAB PO BID HEART (Reported) Mometasone Furoate (Nasonex) 50 MCG SPRAY.PUMP 2 SPRAY NASB DAILY NASAL CONGESTION Omeprazole 20 MG CAPSULE.DR 1 CAP PO DAILY AC GI (Reported) Prednisone 10 MG TABLET 0 PO DAILY copd TAKE 4 TABS ON 11/29 AND 11/30 TAKE 3 TABS ON 12/01 AND 12/02 TAKE 2 TABS ON 12/03 AND 12/04 TAKE 1 TAB ON 12/05 AND 12/06 AND THEN STOP Simvastatin (Zocor) 20 MG TAB 1 TAB PO 1700 CHOLESTEROL (Reported) Warfarin Sodium (Coumadin) 5 MG TABLET 1 TAB PO DAILY BLOOD THINNER (Reported ) please dose Coumadin as per INR. Current Medications: Current Medications Sig/Johnna Start time Last Medication Dose Route Stop Time Status Admin Acetaminophen 650 MG Q6P PRN 11/25 05 AC PO Albuterol Sulfate 3 ML BID 11/25 2200 AC 11/25 INH 1807 Albuterol Sulfate 3 ML Q6 PRN 11/25 0545 DC 11/25 INH 0811 Albuterol Sulfate 0 .STK-MED ONE 11/25 05 DC INH Aspirin Buffered 81 MG DAILY 11/25 1000 AC 11/25 PO 1045 Atorvastatin Calcium 20 MG 1700 11/25 1700 AC 11/25 PO 1559 Azithromycin 500 MG DAILY 11/25 0545 AC 11/25 Dextrose/Water 250 ML IV 0546 Colchicine 300 MCG DAILY 11/25 1000 AC 11/25 PO 1057 Epoetin Guzman 2,000 UNIT MoWeFr PRN 11/25 1040 AC IV Epoetin Guzman 3,000 UNIT MoWeFr PRN 11/25 1040 AC IV Ferrous Sulfate 325 MG BID 11/25 1000 AC 11/25 PO 1045 Folic Acid 1 MG DAILY 11/25 1000 AC 11/25 PO 1043 Furosemide 80 MG 0700 11/25 0700 AC 11/25 PO 0640 Hydralazine HCl 10 MG BID 11/25 1000 DC 11/25 PO 1044 Insulin Aspart 0 TIDAC 11/25 0800 AC 11/25 SC 1817 Insulin Detemir 12 UNITS BID 11/25 1000 AC SC Isosorbide 60 MG DAILY 11/25 1000 AC 11/25 Mononitrate PO 1043 Methylprednisolone 40 MG Q8 11/25 2200 AC IV Methylprednisolone 125 MG ONCE ONE 11/25 1245 DC 11/25 IV 11/25 1246 1307 Metoprolol Tartrate 50 MG BID 11/25 1000 AC 11/25 PO 1043 Omeprazole 20 MG DAILY AC 11/25 0700 DC PO Omeprazole 40 MG DAILY AC 11/25 0700 AC 11/25 PO 0639 Paricalcitol 2 MCG MoWeFr PRN 11/25 1040 AC IV Prednisone 40 MG BID 11/25 1000 DC 11/25 PO 1044 Warfarin Sodium 5 MG COUMADIN 1700 ONE 11/25 1700 DC 11/25 PO 11/25 1701 1559 Past History Travel History Traveled to [place] past 21 day No Medical History Neurological: NONE Cardiovascular: AFIB (paroxysmal), CAD, hypertension, hyperlipidemia, systolic CHF, PACEMAKER/DEFIBRILLATOR Respiratory: COPD, obstructive sleep apnea (not using CPAP), NON COMPLIANT W/ CPAP Gastrointestinal: GERD Hepatic: NONE Renal: ESRD on HD Musculoskeletal: gout, CELLULITIS Psychiatric: NONE Endocrine: diabetes Blood Disorders: anemia, monoclonal gammopathy of unknown significance Cancer(s): NONE RIBBON BLOCKMAKER/Reproductive: NONE Surgical History Surgical History: PACEMAKER Family History Relations & Conditions If Any: MOTHER (Lung cancer). Psychosocial History Where Do You Live? Home Who Do You Live With? self Services at Home: None Primary Language: Macanese Smoking Status: Former Smoker ETOH Use: denies use Illicit Drug Use: denies illicit drug use Functional Ability ADLs Independent: dressing, eating, toileting, bathing. Ambulation: independent IADLs Independent: shopping, housework, finances, food prep, telephone, transportation , medication admin. ECHO Results (as available) Report: CONCLUSIONS 1. Moderate aortic sclerosis is present with minimal aortic insufficiency. 2. Mitral leaflet thickening is present with mild to moderate mitral insufficiency and moderate left atrial dilatation. 3. There is no significant pericardial fluid present. 4. The left ventricular chamber size is normal. There is hypokinesia of the inferoposterior, inferolateral and inferoapical segments with an ejection fraction of 40-45%. Additional images were obtained following the administration of IV contrast. 5. The right heart chambers are upper normal in size. Mild to moderate tricuspid insufficiency is present with pulmonary hypertension and an estimated RV systolic pressure of 54 mmHg. 6. Pacemaker wires are noted in the right heart chambers. Exam & Diagnostic Data Vital Signs and I&O Vital Signs Date Time Temp Pulse Resp B/P Pulse O2 O2 Flow FiO2 Ox Delivery Rate 11/25 1824 95.0 68 20 128/50 95 11/25 1745 94 Nasal 2.0L Cannula 11/25 1044 132/62 11/25 1043 132/60 11/25 1043 132/62 11/25 0844 Nasal 1.0L Cannula 11/25 0844 95 Nasal 1.0L Cannula 11/25 0830 98.9 75 20 132/50 93 Nasal 1.0L Cannula 11/25 0614 92 Nasal 2.0L Cannula 11/25 0600 98.7 86 22 120/75 92 Nasal 2.0L Cannula 11/25 0533 92 Nasal 2.0L Cannula 11/25 0511 83 24 132/61 93 Nasal 2.0L Cannula 11/25 0320 88 Room Air 11/25 0318 99.6 86 22 159/68 87 Room Air Intake & Output 11/25 1600 11/25 0800 11/25 0000 11/24 1600 11/24 0800 11/24 0000 Intake Total 1800 370 Output Total 350 Balance 1450 370 Intake, 1400 Dialysate Intake, IV 50 Intake, Oral 400 320 Output, Urine 350 Patient 183 lb Weight Physical Exam: General Appearance Alert, Oriented X3, Cooperative, Mild Distress, uncomfortable due to cough and dyspnea Skin No Significant Lesion, dry legs, no edema or tenderness around tiburcio cath on the right chest HEENT Atraumatic, PERRLA, EOMI, dry mucous membranes, sinus non tender Neck Supple, No JVD, +2 Carotid Pulse wo Bruit, No LAD Cardiovascular Irregular S1, S2, 1/6 systolic murmur Lungs diffuse rhonchi. coarse breath sounds bilaterally Abdomen Normal Bowel Sounds, Soft, No Tenderness Neurological Normal Speech Extremities 1+ pitting edema lower extremities up to midcalf Vascular Normal Pulses Labs/Satnam Results: Laboratory Tests 11/25 11/25 11/25 1405 0914 0320 Blood Gas pH (7.35 - 7.45 PH) 7.34 L pCO2 (35 - 45 TORR) 48 H pO2 (80 - 100 TORR) 77 L HCO3 (21 - 28 MEQ/L) 25 ABG O2 Sat (Measured) (>96.0 %) 93.0 L Carboxyhemoglobin (1.5 - 5.0 %) 0.7 L O2 Concentration % 3L Temperature (97.0 - 100.0 FARH) 98.9 O2 Delivery Method N/C Chemistry Sodium (137 - 145 mmol/L) 148 H Potassium (3.5 - 5.1 mmol/L) 4.6 Chloride (98 - 107 mmol/L) 108 H Carbon Dioxide (22 - 30 mmol/L) 23 Anion Gap (5 - 16) 17 H BUN (9 - 20 mg/dL) 53 H Creatinine (0.7 - 1.2 mg/dL) 4.2 H Estimated GFR (>60 ml/min) 14 L BUN/Creatinine Ratio (7 - 25 %) 12.6 Glucose (65 - 99 mg/dL) 166 H Calcium (8.4 - 10.2 mg/dL) 9.0 Total Bilirubin (0.2 - 1.3 mg/dL) 0.4 AST (17 - 59 U/L) 18 ALT (21 - 72 U/L) 20 L Alkaline Phosphatase (< 127 U/L) 126 Troponin I (<0.11 ng/ml) 0.05 0.04 Gxw-W-Eqcufibahus Pept (<125 pg/mL) 20222 H Total Protein (6.3 - 8.2 g/dL) 6.3 Albumin (3.5 - 5.0 g/dL) 3.7 Globulin (1.9 - 4.2 gm/dL) 2.6 Albumin/Globulin Ratio (1.1 - 2.2 %) 1.4 Coagulation PT (9.4 - 12.5 SEC) 23.3 H INR (0.90 - 1.17) 2.24 H Hematology CBC w Diff NO MAN DIFF REQ WBC (4.8 - 10.8 /CUMM) 13.2 H RBC (4.70 - 6.10 /CUMM) 3.47 L Hgb (14.0 - 18.0 G/DL) 9.4 L Hct (42 - 52 %) 29.9 L MCV (80.0 - 94.0 FL) 86.0 MCH (27.0 - 31.0 PG) 27.1 RDW (11.5 - 14.5 %) 22.7 H Plt Count (130 - 400 /CUMM) 152 MPV (7.4 - 10.4 FL) 9.5 Gran % (42.2 - 75.2 %) 85.0 H Lymphocytes % (20.5 - 51.1 %) 5.0 L Monocytes % (1.7 - 9.3 %) 6.8 Eosinophils % (0 - 5 %) 3.0 Basophils % (0.0 - 2.0 %) 0.2 Absolute Granulocytes (1.4 - 6.5 /CUMM) 11.2 H Absolute Lymphocytes (1.2 - 3.4 /CUMM) 0.7 L Absolute Monocytes (0.10 - 0.60 /CUMM) 0.9 H Absolute Eosinophils (0.0 - 0.7 /CUMM) 0.4 Absolute Basophils (0.0 - 0.2 /CUMM) 0 PUBS MCHC (33.0 - 37.0 G/DL) 31.5 L Miscellaneous Phlebotomy Draw Site RIGHT RADIAL Diagnostic Data CXR Results IMPRESSION: 1. Pacer/AICD leads and right jugular double-lumen catheter unchanged in position. 2. Cardiomegaly with central vascular congestion. No overt pulmonary edema. 3. Mild thickening of central airways, either related to central vascular congestion or reactive airways disease/bronchitis. No focal pneumonia. Assessment/Plan Assessment/Plan Assessment: 1. Acute hypoxic respiratory failure; multifactorial wtih COPD exacerbation and likely acute on chronic HFrEF 2. ESRD on HD 3. HTN 4. AF on AC 5. HLD 6. DM 7. AICD / PPM Recommendations: - COntinue as per Nephrology - As per Pulmonary - Diuresis and fluid removal during dialysis as tolerated by BP - If BP becomes a limiting factor may need to decrease or hold doses of Imdur, Hydralazine, etc - If persistent issues with low BP, recheck echo to reassess LV function and valvular function. Consult Acknowledgment - Thank you for your consult request.
[2016-11-25 23:03] VITALS: BP 160/84
[2016-11-26 08:33] LABS: PT 32.1 SEC (9.4-12.5)
[2016-11-26 08:40] VITALS: BP 160/67
--- NOTE | 2016-11-26 10:51 | PN- Housestaff ---
See Addendum Subjective Follow-up For: -Acute hypoxic respiratory failure; multifactorial wtih COPD exacerbation and likely acute on chronic HFrEF - ESRD on HD - HTN - AF on AC Complaints: complained of burning at the IV access on the right arm Tele-Events Since Last Visit: Single Angiulo pacing heart rate 70-76, some PVCs Subjective: Patient seen and examined at bedside, sitting comfortable with no acute distress He reports improving in his respiratory status, he complained of itching in the right arm at the IV access, he thought that he has allergy from the antibiotic but he received azithromycin yesterday and he has been on this antibiotic multiple time on multiple admission with no problem, there is no erythema or redness at the area, we can slow the rate of antibiotic. He denies any chest pain, still he has cough with whitish phlegm with no blood, no change in urinary or bowel habits. Vitals remained stable overnight except for high blood pressure of 164/66, he still on 2 L nasal cannula and oxygen saturation 97% Review of Systems Constitutional: Reports: see HPI. EENTM: Reports: no symptoms. Cardiovascular: Reports: no symptoms. Respiratory: Reports: cough, short of breath, sputum production, wheezing. Gastrointestinal: Reports: no symptoms. Genitourinary: Reports: no symptoms. Musculoskeletal: Reports: no symptoms. Skin: Reports: no symptoms. Neurological/Psychological: Reports: no symptoms. Hematologic/Endocrine: Reports: no symptoms. Immunologic/Allergic: Reports: no symptoms. Objective Last 24 Hrs of Vital Signs/I&O Vital Signs Date Time Temp Pulse Resp B/P Pulse O2 O2 Flow FiO2 Ox Delivery Rate 11/26 1006 164/66 11/26 1006 164/66 11/26 0840 98.2 67 20 160/67 97 Nasal 2.0L Cannula 11/26 0000 93 Nasal 2.0L Cannula 11/25 2303 96.4 75 20 160/84 90 Nasal Cannula 11/25 2239 80 132/50 11/25 1824 95.0 68 20 128/50 95 11/25 1745 94 Nasal 2.0L Cannula Intake & Output 11/26 1600 11/26 0800 11/26 0000 Intake Total 360 360 Output Total 150 125 Balance 210 235 Intake, Oral 360 360 Output, Urine 150 125 Patient 182 lb Weight Physical Exam General Appearance: Alert, Oriented X3, Cooperative, No Acute Distress Skin: No Rashes, No Breakdown, No Significant Lesion HEENT: Atraumatic, PERRLA, EOMI, Mucous Membr. moist/pink Neck: Supple, No JVD Cardiovascular: Normal S1, Normal S2 Lungs: bilateral wheezing Abdomen: Normal Bowel Sounds, Soft, No Tenderness Extremities: No Edema, Normal Pulses Vascular: Normal Pulses, Pulses Symmetrical Current Medications: Current Medications Sig/Johnna Start time Last Medication Dose Route Stop Time Status Admin Acetaminophen 650 MG Q6P PRN 11/25 0545 AC PO Albuterol Sulfate 3 ML BID 11/25 2200 AC 11/26 INH 0737 Aspirin Buffered 81 MG DAILY 11/25 1000 AC 11/26 PO 1006 Atorvastatin Calcium 20 MG 1700 11/25 1700 AC 11/25 PO 1559 Azithromycin 500 MG DAILY 11/25 0545 AC 11/26 Dextrose/Water 250 ML IV 1009 Colchicine 300 MCG DAILY 11/25 1000 AC 11/26 PO 1007 Diphenhydramine HCl 25 MG ONCE ONE 11/26 1045 CANr IV 11/26 1046 Epoetin Guzman 2,000 UNIT MoWeFr PRN 11/25 1040 AC IV Epoetin Guzman 3,000 UNIT MoWeFr PRN 11/25 1040 AC IV Ferrous Sulfate 325 MG BID 11/25 1000 DC 11/25 PO 2239 Folic Acid 1 MG DAILY 11/25 1000 AC 11/26 PO 1006 Furosemide 80 MG 0711/27 0700 AC PO Furosemide 80 MG ONE ONE 11/26 1030 DC PO 11/26 1031 Furosemide 80 MG 0700 11/25 0700 DC 11/25 PO 0640 Hydralazine HCl 10 MG BID 11/25 1000 DC 11/25 PO 1044 Insulin Aspart 0 TIDAC 11/25 0800 AC 11/26 SC 0828 Insulin Detemir 12 UNITS BID 11/25 1000 AC SC Isosorbide 60 MG DAILY 11/25 1000 AC 11/26 Mononitrate PO 1006 Methylprednisolone 40 MG Q8 11/25 2200 AC 11/26 IV 0656 Methylprednisolone 125 MG ONCE ONE 11/25 1245 DC 11/25 IV 11/25 1246 1307 Metoprolol Tartrate 50 MG BID 11/25 1000 AC 11/26 PO 1006 Omeprazole 40 MG DAILY AC 11/25 0700 AC 11/26 PO 0656 Paricalcitol 2 MCG MoWeFr PRN 11/25 1040 AC IV Prednisone 40 MG BID 11/25 1000 DC 11/25 PO 1044 Warfarin Sodium 2.5 MG COUMADIN 1700 ONE 11/26 1700 AC PO 11/26 1701 Warfarin Sodium 5 MG COUMADIN 1700 ONE 11/25 1700 DC 11/25 PO 11/25 1701 1559 Last 24 Hrs of Lab/Satnam Results Last 24 Hrs of Labs/Mics: Laboratory Tests 11/26/16 0640: PT 32.1 H, INR 3.09 H 11/25/16 1405: pH 7.34 L, pCO2 48 H, pO2 77 L, HCO3 25, ABG O2 Sat (Measured) 93.0 L, Carboxyhemoglobin 0.7 L, O2 Concentration % 3L, Temperature 98.9, O2 Delivery Method N/C, Phlebotomy Draw Site RIGHT RADIAL 11/25/16 1144: Sodium Cancelled, Potassium Cancelled, Chloride Cancelled, Carbon Dioxide Cancelled, Anion Gap Cancelled, BUN Cancelled, Creatinine Cancelled, BUN/ Creatinine Ratio Cancelled, Glucose Cancelled, Calcium Cancelled Assessment/Plan Assessment: 71-year-old male with PMH of atrial fibrillation on warfarin, ESRD on dialysis MWF, congestive heart failure with reduced ejection fraction, pacemaker/AICD, HTN, HLD, COPD not on home oxygen, IDDM, gout, presented with shortness of breath. 1. Acute hypoxic respiratory failure secondary to COPD exacerbation along with a component of fluid overload in the setting of end-stage renal disease on dialysis. X-ray on admission did not show evidence of fluid overload. He is currently on by mouth prednisone twice a day and azithromycin for anti- inflammatory properties. Will continue TRC nebulizes. 2. Congestive heart failure with reduced ejection fraction: * pacemaker/AICD. * Takes 80 mg of Lasix at home which is hold overnight by night team, will resume his Lasix this a.m. * Last echocardiogram September 2016 showed ejection fraction of 50%, aortic valve 80 of 1.1 cm RVSP of 52. follows Dr. Crandall. We'll continue to monitor daily weights and I's and O's. Oliguric * Patient was seen by Dr. Crandall yesterday who recommended to continue diuresis and fluid removal during dialysis as tolerated by BP, if BP becomes a limiting factor may need to decrease or hold doses of Imdur, Hydralazine, etc, If persistent issues with low BP, recheck echo to reassess LV function and valvular function. 3. End-stage renal disease on hemodialysis due to hypertensive nephrosclerosis and diabetic nephropathy: Patient was started on dialysis in September during his previous admission. We'll consult nephrology and plan for dialysis on Monday 4. Leukocytosis: CBC this a.m. is pending we'll continue patient on his current antibiotic regimen will follow-up 5. Gout: Patient takes allopurinol and colchicine. Allopurinol not restarted by overnight team. Comfortable medical history the patient. 6. Hypertension: Her pressure stable will continue his medication 7. Diabetes mellitus: Currently on NovoLog sliding scale and long-acting basal insulin 8. Atrial fibrillation: Rate controlled on Coumadin. INR therapeutic today it' s 3.09 will give 2.5 mg of Coumadin, will check INR tomorrow Diet: Renal dialysis diet DVT ppx: mech and pharm FULL CODE Problem List: 1. CHF EXACERBATION 2. COPD 3. End-stage renal disease on hemodialysis Pain Ratin Pain Location: - Pain Goal: Remain pain free Pain Plan: - Tomorrow's Labs & Rationales: CBC, INR, BEP DVT/Prophylaxis: pharmacological
[2016-11-26 11:04] LABS: ABSOLUTE BASOPHIL COUNT 0 /CUMM (0.0-0.2); ABSOLUTE EOSINOPHIL COUNT 0 /CUMM (0.0-0.7); ABSOLUTE GRANULOCYTE CT 8.3 /CUMM (1.4-6.5); ABSOLUTE LYMPH COUNT 0.3 /CUMM (1.2-3.4); ABSOLUTE MONOCYTE COUNT 0.3 /CUMM (0.10-0.60); BASOPHIL % 0 % (0.0-2.0); EOSINOPHIL % 0 % (0-5); GRANULOCYTE % 92.7 % (42.2-75.2); MEAN CORPUSCULAR HGB 27.2 PG (27.0-31.0); MEAN CORPUSCULAR HGB CONC 31.6 G/DL (33.0-37.0); MEAN CORPUSCULAR VOLUME 86.2 FL (80.0-94.0); MEAN PLATELET VOLUME 9.5 FL (7.4-10.4); PLATELET COUNT 134 /CUMM (130-400); RBC DISTRIBUTION WIDTH 22.5 % (11.5-14.5); WHITE BLOOD CELL COUNT 8.9 /CUMM (4.8-10.8)
--- NOTE | 2016-11-26 12:37 | PN- Cardiology ---
Subjective Subjective: Mr. Arias appears much better today. He continues to have cough with production of whitish sputum. No other significant symptoms. Overall, he feels better than yesterday. Objective Vital Signs and I&Os Vital Signs Date Time Temp Pulse Resp B/P Pulse O2 O2 Flow FiO2 Ox Delivery Rate 11/26 1006 164/66 11/26 1006 164/66 11/26 0840 98.2 67 20 160/67 97 Nasal 2.0L Cannula 11/26 0834 97 Nasal 2.0L Cannula 11/26 0000 93 Nasal 2.0L Cannula 11/25 2303 96.4 75 20 160/84 90 Nasal Cannula 11/25 2239 80 132/50 11/25 1824 95.0 68 20 128/50 95 11/25 1745 94 Nasal 2.0L Cannula Intake & Output 11/26 1600 11/26 0800 11/26 0000 11/25 1600 11/25 0800 11/25 0000 Intake Total 025 169 8211 370 Output Total 150 125 350 Balance 419 529 8322 370 Intake, 1400 Dialysate Intake, IV 50 Intake, Oral 360 360 400 320 Output, Urine 150 125 350 Patient 182 lb 183 lb Weight Current Medications: Current Medications Sig/Johnna Start time Last Medication Dose Route Stop Time Status Admin Acetaminophen 650 MG Q6P PRN 11/25 0545 AC PO Albuterol Sulfate 3 ML BID 11/25 2200 AC 11/26 INH 0737 Aspirin Buffered 81 MG DAILY 11/25 1000 AC 11/26 PO 1006 Atorvastatin Calcium 20 MG 1700 11/25 1700 AC 11/25 PO 1559 Azithromycin 500 MG DAILY 11/25 0545 AC 11/26 Dextrose/Water 250 ML IV 1009 Colchicine 300 MCG DAILY 11/25 1000 AC 11/26 PO 1007 Diphenhydramine HCl 25 MG ONCE ONE 11/26 1045 CAN IV 11/26 1046 Epoetin Guzman 2,000 UNIT MoWeFr PRN 11/25 1040 AC IV Epoetin Guzman 3,000 UNIT MoWeFr PRN 11/25 1040 AC IV Ferrous Sulfate 325 MG BID 11/25 1000 DC 11/25 PO 2239 Folic Acid 1 MG DAILY 11/25 1000 AC 11/26 PO 1006 Furosemide 80 MG 0711/27 0700 AC PO Furosemide 80 MG ONE ONE 11/26 1030 DC 11/26 PO 11/26 1031 1203 Furosemide 80 MG 0700 11/25 0700 DC 11/25 PO 0640 Hydralazine HCl 10 MG BID 11/25 1000 DC 11/25 PO 1044 Insulin Aspart 0 TIDAC 11/25 0800 AC 11/26 SC 1216 Insulin Detemir 12 UNITS BID 11/25 1000 AC SC Isosorbide 60 MG DAILY 11/25 1000 AC 11/26 Mononitrate PO 1006 Methylprednisolone 40 MG Q8 11/25 2200 AC 11/26 IV 0656 Methylprednisolone 125 MG ONCE ONE 11/25 1245 DC 11/25 IV 11/25 1246 1307 Metoprolol Tartrate 50 MG BID 11/25 1000 AC 11/26 PO 1006 Omeprazole 40 MG DAILY AC 11/25 0700 AC 11/26 PO 0656 Paricalcitol 2 MCG MoWeFr PRN 11/25 1040 AC IV Prednisone 40 MG BID 11/25 1000 DC 11/25 PO 1044 Warfarin Sodium 2.5 MG COUMADIN 1700 ONE 11/26 1700 AC PO 11/26 1701 Warfarin Sodium 5 MG COUMADIN 1700 ONE 11/25 1700 DC 11/25 PO 11/25 1701 1559 Results Last 48 Hrs of Labs/Mics: Laboratory Tests 11/26/16 1030: Anion Gap 18 H, Estimated GFR 17 L, BUN/Creatinine Ratio 13.4, CBC w Diff NO MAN DIFF REQ, RBC 3.60 L, MCV 86.2, MCH 27.2, RDW 22.5 H, MPV 9.5, Gran % 92.7 H, Lymphocytes % 3.8 L, Monocytes % 3.5, Eosinophils % 0, Basophils % 0 L, Absolute Granulocytes 8.3 H, Absolute Lymphocytes 0.3 L, Absolute Monocytes 0.3, Absolute Eosinophils 0, Absolute Basophils 0, PUBS MCHC 31.6 L 11/26/16 0640: PT 32.1 H, INR 3.09 H 11/25/16 1405: pH 7.34 L, pCO2 48 H, pO2 77 L, HCO3 25, ABG O2 Sat (Measured) 93.0 L, Carboxyhemoglobin 0.7 L, O2 Concentration % 3L, Temperature 98.9, O2 Delivery Method N/C, Phlebotomy Draw Site RIGHT RADIAL 11/25/16 1144: Sodium Cancelled, Potassium Cancelled, Chloride Cancelled, Carbon Dioxide Cancelled, Anion Gap Cancelled, BUN Cancelled, Creatinine Cancelled, BUN/ Creatinine Ratio Cancelled, Glucose Cancelled, Calcium Cancelled 11/25/16 0914: Troponin I 0.05 11/25/16 0320: Anion Gap 17 H, Estimated GFR 14 L, BUN/Creatinine Ratio 12.6, Glucose 166 H, Calcium 9.0, Total Bilirubin 0.4, AST 18, ALT 20 L, Alkaline Phosphatase 126, Troponin I 0.04, [id number] Pept 37371 H, Total Protein 6.3, Albumin 3.7 , Globulin 2.6, Albumin/Globulin Ratio 1.4, PT 23.3 H, INR 2.24 H, CBC w Diff NO MAN DIFF REQ, RBC 3.47 L, MCV 86.0, MCH 27.1, RDW 22.7 H, MPV 9.5, Gran % 85.0 H, Lymphocytes % 5.0 L, Monocytes % 6.8, Eosinophils % 3.0, Basophils % 0.2, Absolute Granulocytes 11.2 H, Absolute Lymphocytes 0.7 L, Absolute Monocytes 0.9 H, Absolute Eosinophils 0.4, Absolute Basophils 0, PUBS MCHC 31.5 L Assessment/Plan Assessment/Plan Assessment: 1. Acute hypoxic respiratory failure; multifactorial wtih COPD exacerbation and likely acute on chronic HFrEF 2. ESRD on HD 3. HTN 4. AF on AC 5. HLD 6. DM 7. AICD / PPM Recommendations: -Management of the patient's respiratory symptoms will be somewhat difficult due to his recent tenuous blood pressure issues. Yesterday, he actually was given back several 100 mL of fluid at dialysis. Today he is feeling somewhat better. -For now, I would recommend continuing the patient's current Lasix dose. -I suspect at least a component of the upper respiratory symptoms are related to pulmonary/infectious issues. -Continue to monitor intakes, outputs, daily weights. -Follow-up laboratories in the morning. -If the patient continues to improve clinically, we can reassess his fluid status at that time. -Otherwise, continue as per nephrology and medical team. Continue telemetry? Yes
[2016-11-26 22:00] VITALS: BP 110/70
[2016-11-27 08:27] VITALS: BP 152/62
[2016-11-27 08:38] LABS: PT 33.6 SEC (9.4-12.5)
[2016-11-27 10:24] LABS: ABSOLUTE BASOPHIL COUNT 0 /CUMM (0.0-0.2); ABSOLUTE EOSINOPHIL COUNT 0 /CUMM (0.0-0.7); ABSOLUTE GRANULOCYTE CT 8.8 /CUMM (1.4-6.5); ABSOLUTE LYMPH COUNT 0.5 /CUMM (1.2-3.4); ABSOLUTE MONOCYTE COUNT 0.6 /CUMM (0.10-0.60); BASOPHIL % 0.1 % (0.0-2.0); EOSINOPHIL % 0 % (0-5); GRANULOCYTE % 88.2 % (42.2-75.2); MEAN CORPUSCULAR HGB 26.9 PG (27.0-31.0); MEAN CORPUSCULAR HGB CONC 31.3 G/DL (33.0-37.0); MEAN CORPUSCULAR VOLUME 85.9 FL (80.0-94.0); MEAN PLATELET VOLUME 9.9 FL (7.4-10.4); PLATELET COUNT 150 /CUMM (130-400); RBC DISTRIBUTION WIDTH 21.9 % (11.5-14.5); RED BLOOD CELL CT 3.49 /CUMM (4.70-6.10); WHITE BLOOD CELL COUNT 9.9 /CUMM (4.8-10.8)
--- NOTE | 2016-11-27 11:10 | PN- Att Addend ---
Attending Addendum Attending Brief Note 71-year-old male with past medical history significant for hypertension, hyperlipidemia, COPD not on home oxygen, diabetes mellitus, gout, congestive heart failure, status post AICD, A. pablo on Coumadin, is being admitted on the floor for acute hypoxic respiratory failure secondary to COPD exacerbation with a component of the fluid overload secondary to end-stage renal disease (on HD). Patient was seen and examined on the bedside and reports no active issues, vitals stable, labs and imaging reviewed, though still requiring 2 L of oxygen via nasal cannula to keep oxygen saturtion > 92% . Patient IV steroids has been switched to oral for COPD exacerbation. Nephrology is on board. Will continue on his current regimen and will Take the patient over the weekend. Please dose his Coumadin today, INR in therapeutic range.
[2016-11-27 16:28] VITALS: BP 135/57
[2016-11-27 22:00] VITALS: BP 100/60
[2016-11-28 08:24] VITALS: BP 132/57
[2016-11-28 08:26] LABS: PT 29.2 SEC (9.4-12.5)
[2016-11-28 08:29] LABS: ABSOLUTE BASOPHIL COUNT 0 /CUMM (0.0-0.2); ABSOLUTE EOSINOPHIL COUNT 0 /CUMM (0.0-0.7); ABSOLUTE GRANULOCYTE CT 7.6 /CUMM (1.4-6.5); ABSOLUTE LYMPH COUNT 0.5 /CUMM (1.2-3.4); ABSOLUTE MONOCYTE COUNT 0.4 /CUMM (0.10-0.60); BASOPHIL % 0 % (0.0-2.0); EOSINOPHIL % 0 % (0-5); GRANULOCYTE % 89.6 % (42.2-75.2); HEMATOCRIT 27.6 % (42-52); MEAN CORPUSCULAR HGB 27.6 PG (27.0-31.0); MEAN CORPUSCULAR HGB CONC 32.5 G/DL (33.0-37.0); MEAN CORPUSCULAR VOLUME 85.1 FL (80.0-94.0); MEAN PLATELET VOLUME 10.3 FL (7.4-10.4); PLATELET COUNT 156 /CUMM (130-400); RBC DISTRIBUTION WIDTH 21.6 % (11.5-14.5); RED BLOOD CELL CT 3.24 /CUMM (4.70-6.10); WHITE BLOOD CELL COUNT 8.5 /CUMM (4.8-10.8)
--- NOTE | 2016-11-28 09:35 | PN- Att Addend ---
Attending Addendum Attending Brief Note Pt seen and examined. He still coughing and has thick sputum. He is a 71-year- old male with advanced COPD, end-stage renal disease on hemodialysis, diabetes and hypertension. He is here with acute hypoxemic respiratory failure from a combination of COPD exacerbation and question volume overload. His blood pressure was on the low side so they couldn't take out fluid during dialysis and had to give him fluid. He was wheezing and was started on IV steroids over the weekend he is now on by mouth prednisone and Zithromax. He is down to 1 L of oxygen. And will need to talk to Dr. Perry about further treatment of COPD. He has A. fib on Coumadin and have to dose his INR to keep his INR therapeutic.
--- NOTE | 2016-11-28 09:59 | PN- Housestaff ---
Subjective Follow-up For: Cough, shortness of breath Tele-Events Since Last Visit: Normal sinus rhythm, no events Subjective: Patient alert awake oriented. Still complains of shortness of breath on ambulation. Currently on 1 L oxygen through nasal cannula. Denies chest pain, palpitations, syncopal episodes. No overnight events noted. Schedule for Mrs. dunn Review of Systems Constitutional: Reports: see HPI. Objective Last 24 Hrs of Vital Signs/I&O Vital Signs Date Time Temp Pulse Resp B/P Pulse O2 O2 Flow FiO2 Ox Delivery Rate 11/28 0824 94.7 77 132/57 90 Nasal 1.0L Cannula 11/28 0810 94 Nasal 1.0L Cannula 11/28 0323 97 Nasal 2.0L Cannula 11/28 0000 Nasal 2.0L Cannula 11/27 2200 97.8 73 20 100/60 96 Nasal 2.0L Cannula 11/27 2127 73 100/60 11/27 1628 97.7 72 18 135/57 96 Nasal 2.0L Cannula 11/27 1600 Nasal 2.0L Cannula 11/27 1435 93 Nasal 2.0L Cannula Intake & Output 11/28 1600 11/28 0800 11/28 0000 Intake Total 50 50 Output Total 200 Balance -150 50 Intake, Oral 50 50 Output, Urine 200 Patient 183 lb Weight Physical Exam General Appearance: Alert, Oriented X3, Cooperative, No Acute Distress Skin: No Rashes HEENT: PERRLA, Mucous Membr. moist/pink Cardiovascular: Regular Rate, Normal S1, Normal S2, No Murmurs, pacemaker present on the left Lungs: bilateral diffuse expiratory wheezing present, rhonchi present Abdomen: Normal Bowel Sounds, Soft Neurological: Normal Speech Extremities: bilateral mild pitting edema present, chronic venous stasis changes present. Ilya cath on the right side shows no evidence of infection. Current Medications: Current Medications Sig/Johnna Start time Last Medication Dose Route Stop Time Status Admin Acetaminophen 650 MG Q6P PRN 11/25 0545 AC PO Albuterol Sulfate 3 ML BID 11/25 INH 0809 Aspirin Buffered 81 MG DAILY 11/25 1000 AC 11/27 PO 1046 Atorvastatin Calcium 20 MG 1700 11/25 1700 AC 11/27 PO 1725 Azithromycin 500 MG DAILY 11/25 0545 AC 11/27 Dextrose/Water 250 ML IV 1045 Colchicine 300 MCG DAILY 11/25 1000 AC 11/27 PO 1047 Epoetin Guzman 2,000 UNIT MoWeFr PRN 11/25 1040 AC IV Epoetin Guzman 3,000 UNIT MoWeFr PRN 11/25 1040 AC IV Folic Acid 1 MG DAILY 11/25 1000 AC 11/27 PO 1046 Furosemide 80 MG 0711/27 0700 AC 11/28 PO 0707 Insulin Aspart 0 TIDAC 11/25 0800 AC 11/28 SC 0752 Insulin Detemir 12 UNITS BID 11/25 1000 AC SC Isosorbide 60 MG DAILY 11/25 1000 AC 11/27 Mononitrate PO 1046 Metoprolol Tartrate 50 MG BID 11/25 1000 AC 11/27 PO 2127 Omeprazole 40 MG DAILY AC 11/25 0700 AC 11/28 PO 0706 Paricalcitol 2 MCG MoWeFr PRN 11/25 1040 AC IV Prednisone 60 MG DAILY 11/27 1000 AC 11/27 PO 11/28 2355 1045 Last 24 Hrs of Lab/Satnam Results Last 24 Hrs of Labs/Mics: Laboratory Tests 11/28/16 0615: Anion Gap 17 H, Estimated GFR 10 L, BUN/Creatinine Ratio 19.6, PT 29.2 H, INR 2.81 H, CBC w Diff MAN DIFF ORDERED, RBC 3.24 L, MCV 85.1, MCH 27.6, RDW 21.6 H, MPV 10.3, Gran % 89.6 H, Lymphocytes % 5.7 L, Monocytes % 4.7, Eosinophils % 0, Basophils % 0 L, Absolute Granulocytes 7.6 H, Absolute Lymphocytes 0.5 L , Absolute Monocytes 0.4, Absolute Eosinophils 0, Absolute Basophils 0, Platelet Estimate VERIFIED BY SMEAR, Polychromasia 1+, Poikilocytosis 2+, Anisocytosis 2+ , Ovalocytes 1+, Uzma Cells 1+, PUBS MCHC 32.5 L Assessment/Plan Assessment: 71-year-old male with PMH of atrial fibrillation on warfarin, ESRD on dialysis MWF, congestive heart failure with reduced ejection fraction, pacemaker/AICD, HTN, HLD, COPD not on home oxygen, IDDM, gout, presented with shortness of breath was related to COPD exacerbation 1. Acute hypoxic respiratory failure secondary to COPD exacerbation along with a component of fluid overload in the setting of end-stage renal disease on dialysis. - Transition to by mouth prednisone. -Scheduled for dialysis today. - Patient is not on LABA/long-acting steroids. We will start him on Symbicort at the low dose. Pulmonary agreed with the plan. - We will discharge him on prednisone taper with Dr. Perry as an outpatient. 2. Congestive heart failure with reduced ejection fraction: - We'll continue his 80 mg Lasix daily. - Last echocardiogram September 2016 showed ejection fraction of 50%, aortic valve 80 of 1.1 cm RVSP of 52. follows Dr. Crandall. We'll continue to monitor daily weights and I's and O's. - We'll consider stopping hydralazine. Await cardiology input. 3. End-stage renal disease on hemodialysis due to hypertensive nephrosclerosis and diabetic nephropathy - Continue for dialysis today - Patient was started on dialysis in September during his previous admission. 4. Leukocytosis: Resolved. 5. Gout: Patient takes allopurinol and colchicine. 6. Hypertension: Her pressure stable will continue his medication 7. Diabetes mellitus: Currently on NovoLog sliding scale and long-acting basal insulin 8. Atrial fibrillation: Rate controlled on Coumadin. - INR therapeutic today we'll continue his home dose Coumadin upon discharge Diet: Renal dialysis diet DVT ppx: mech and pharm FULL CODE Problem List: 1. End-stage renal disease on hemodialysis 2. Volume overload 3. Anemia 4. CHF (congestive heart failure) Pain Ratin Pain Location: no pain Pain Goal: Remain pain free Pain Plan: not on meds Tomorrow's Labs & Rationales: pt d/c isamar
--- NOTE | 2016-11-28 10:29 | PN- Pulmonary ---
Subjective HPI/Critical Care Issues: pt seen and examined still with a cough overall feels better on 1LNC will try to reduce fio2 requirements Objective Current Medications: Current Medications Sig/Johnna Start time Last Medication Dose Route Stop Time Status Admin Acetaminophen 650 MG Q6P PRN 11/25 0545 AC PO Albuterol Sulfate 3 ML BID 11/25 2200 AC 11/28 INH 0809 Aspirin Buffered 81 MG DAILY 11/25 1000 AC 11/27 PO 1046 Atorvastatin Calcium 20 MG 1700 11/25 1700 AC 11/27 PO 1725 Azithromycin 500 MG DAILY 11/25 0545 AC 11/27 Dextrose/Water 250 ML IV 1045 Colchicine 300 MCG DAILY 11/25 1000 AC 11/27 PO 1047 Epoetin Guzman 2,000 UNIT MoWeFr PRN 11/25 1040 AC IV Epoetin Guzman 3,000 UNIT MoWeFr PRN 11/25 1040 AC IV Folic Acid 1 MG DAILY 11/25 1000 AC 11/27 PO 1046 Furosemide 80 MG 0700 11/27 0700 AC 11/28 PO 0707 Insulin Aspart 0 TIDAC 11/25 0800 AC 11/28 SC 0752 Insulin Detemir 12 UNITS BID 11/25 1000 AC SC Isosorbide 60 MG DAILY 11/25 1000 AC 11/27 Mononitrate PO 1046 Metoprolol Tartrate 50 MG BID 11/25 1000 AC 11/27 PO 2127 Omeprazole 40 MG DAILY AC 11/25 0700 AC 11/28 PO 0706 Paricalcitol 2 MCG MoWeFr PRN 11/25 1040 AC IV Prednisone 60 MG DAILY 11/27 1000 AC 11/27 PO 11/28 2355 1045 Vital Signs & I&O Last 24 Hrs of Vitals and I&O: Vital Signs Date Time Temp Pulse Resp B/P Pulse O2 O2 Flow FiO2 Ox Delivery Rate 11/28 0824 94.7 77 132/57 90 Nasal 1.0L Cannula 11/28 0810 94 Nasal 1.0L Cannula 11/28 0323 97 Nasal 2.0L Cannula 11/28 0000 Nasal 2.0L Cannula 11/27 220 97.8 73 20 100/60 96 Nasal 2.0L Cannula 11/27 2127 73 100/60 11/27 1628 97.7 72 18 135/57 96 Nasal 2.0L Cannula 11/27 1600 Nasal 2.0L Cannula 11/27 1435 93 Nasal 2.0L Cannula 11/27 1046 150/60 11/27 1046 150/60 Intake & Output 11/28 1600 11/28 0800 11/28 0000 Intake Total 50 50 Output Total 200 Balance -150 50 Intake, Oral 50 50 Output, Urine 200 Patient 183 lb Weight Exam Other Physical Findings: gen awake and alert heent ncat cvs s1, s2 lungs rare wheeze abd soft, bs+ ext chronic venous stasis Results Last 24 Hrs of Lab Results: Laboratory Tests 11/28/16 0615: Anion Gap 17 H, Estimated GFR 10 L, BUN/Creatinine Ratio 19.6, PT 29.2 H, INR 2.81 H, CBC w Diff MAN DIFF ORDERED, RBC 3.24 L, MCV 85.1, MCH 27.6, RDW 21.6 H, MPV 10.3, Gran % 89.6 H, Lymphocytes % 5.7 L, Monocytes % 4.7, Eosinophils % 0, Basophils % 0 L, Absolute Granulocytes 7.6 H, Absolute Lymphocytes 0.5 L , Absolute Monocytes 0.4, Absolute Eosinophils 0, Absolute Basophils 0, Platelet Estimate VERIFIED BY SMEAR, Polychromasia 1+, Poikilocytosis 2+, Anisocytosis 2+ , Ovalocytes 1+, Hope Cells 1+, PUBS MCHC 32.5 L Impression/Plan Impression/Plan Impression/Plan: Impression 71 year old man. ESRD, CHF, COPD. Recent GI bleed and admission to ICU. Hx of MGUS and pulmonary htn. Presentes with a cough and dyspnea and leg edema. Due for HD. Possibly viral illness contacts, no travel hx. Some wheezing and non-productive cough. CXR overall clear. Hx of CHF on diuresis and ESRD on HD. Plan - plan for HD with fluid removal and reassess sx - resume home inhalers - SYMBICORT - TRC/Nebs - diuresis - nephrology input - f/u cardiology - prednisone taper - reduce fio2 as tolerated - DVT prophylaxis at all times
--- NOTE | 2016-11-28 10:29 | Discharge Summary ---
Visit Information Visit Dates Admission Date: 11/25/16 Discharge Date: 11/29/16 Hospital Course Course Attending Physician: [address]ED[address] STRE[address],IRA Pham Primary Care Physician: YSABEL DE LA TORRE MD Hospital Course: 71-year-old male with PMH of atrial fibrillation on warfarin, ESRD on dialysis MWF, congestive heart failure with reduced ejection fraction, pacemaker/AICD, HTN, HLD, COPD not on home oxygen, IDDM, gout, presented with shortness of breath. Vitals and admission: Blood pressure 159/68, respiration 22, pulse 86, temperature 99.6, oxygen saturation 87% on room air which improved to 92% on 2 L nasal cannula. Labs and admission: WBC 13.2, hemoglobin 9.4, hematocrit 20.9, platelets 152, sodium 140, potassium 4.6, BUN 53, creatinine 4.2 Hospital course 1. Acute hypoxic respiratory failure secondary to COPD exacerbation along with a component of fluid overload in the setting of end-stage renal disease in a patient on dialysis. He was admitted to telemetry floor. He was started on IV Solu-Medrol and azithromycin for anti-inflammatory properties of COPD. Seen by wax machine operator who agreed with the above management. He was continued on IV Solu -Medrol and transitioned to by mouth and discharged on a prednisone taper. His hospital course was complicated by recurrent hypoxia. Repeat PA lateral chest x-ray was done that showed cardiomegaly with central vascular congestion with no overt pulmonary edema. He was continued on 80 mg by mouth Lasix which is his home dose. His oxygen saturation did drop to 88% on ambulation. He was discharged on home oxygen. Patient upon discharge was saturating 95% on 1.5 L nasal cannula. He also had some nasal congestion for which he received Mucinex, Nasonex spray. No evidence of sinusitis noted. 2. End-stage renal disease on hemodialysis (Monday schedule) he was continued on his dialysis. Patient had episodes of hypotension during dialysis. After discussion with bottom bleacher and scarf gluer decision was made to stop hydralazine and continue the rest of his blood pressure medications. He should follow-up with nephrology as an outpatient for further optimizing his medications. 3. Congestive heart failure with reduced ejection fraction: Patient remained stable. He was continued on 80 mg by mouth Lasix daily. 4. Leukocytosis: Resolved on day 2. He remained afebrile during the hospital stay. Blood cultures 2 were negative. 5. Hypertension: Few episodes of hypotension and his blood pressure medication adjusted as mentioned above. He was continued on rest of his medications. 6. Diabetes mellitus patient reports not being on basal insulin. Patient blood sugar was consistently elevated which is attributed mostly due to steroids use. We will discharge him on his long-acting Levemir and NovoLog sliding scale. Recommended to follow-up with primary care physician with blood sugar logs and his medications can be readjusted as an outpatient. 7. Atrial fibrillation remained rate controlled. Was continued on Coumadin based on daily INRs. Diet: Renal dialysis diet DVT ppx: mech and pharm Full code Allergies: Coded Allergies: NO KNOWN ALLERGIES (10/04/16) Disposition Summary Disposition Principal Diagnosis: 1. Acute hypoxic respiratory failure secondary to COPD exacerbation along with a component of fluid overload in the setting of end-stage renal disease in a patient on dialysis 2. End-stage renal disease on hemodialysis Additional Diagnosis: 1. HFREF 2. HTN 3. DM 4. A fib on AC Discharge Disposition: home health services Discharge Instructions General Discharge Information Code Status: Full Code Patient's Diet: Renal dialysis diet Patient's Activity: As tolerated with PT Follow-Up Instructions/Appts: 1. Follow up with PCP in a week upon discharge 2. Follow up for your dialysis MWT 3. Follow up with nephrology. Medications at Discharge Discharge Medications: Stop taking the following medications: HYDRALAZINE HCL (Hydralazine) 10 MG TABLET ORAL TWICE DAILY Continue taking these medications: Aspirin (Ecotrin) 81 MG TABLET. 1 Tablet ORAL DAILY Comments: Last Taken: 03/02/16 Time: 1000 AM Metoprolol Tartrate (Lopressor) 50 MG TAB 1 Tablet ORAL TWICE DAILY Comments: Last Taken: 12/24/15 Time: 1000 AM Simvastatin (Zocor) 20 MG TAB 1 Tablet ORAL 5 PM Comments: LAST TAKEN 03/01/16 AT 1700 Furosemide (Lasix) 40 MG TABLET 2 Tablet ORAL DAILY Qty = 30 Comments: 80MG GIVEN 03/02 AT 10AM Isosorbide Mononitrate (Imdur) [address] Tablet ORAL DAILY Comments: Last Taken: 03/02/16 Time: 10 AM Folic Acid (Folic Acid) 1 MG TABLET 1 Milligram ORAL DAILY Comments: Last Taken: 03/02/16 Time: 1000 AM Ferrous Sulfate (Ferrous Sulfate) 325 MG (65 MG IRON) TABLET 1 Tablet ORAL TWICE DAILY Comments: LAST TAKEN 03/02 AT 10AM Omeprazole (Omeprazole) 20 MG CAPSULE.DR 1 Capsule ORAL DAILY BEFORE BREAKFAST Comments: LAST TAKEN 03/02/16 AT 0600 Albuterol Sulfate (Proventil Hfa) 90 MCG HFA.AER.AD 1-2 PUFF Inhale through mouth Q4-6H as needed for SHORTNESS OF BREATH Comments: NOT GIVEN IN HOSPITAL Insulin Glargine, Recombinan (Lantus) 100 U/ML SALIMA 12 Unit Inject into fatty tissue DAILY Comments: Last Taken: 03/02/16 Time: 1000 AM LEVEMIR GIVEN Insulin Lispro (Humalog) 100 UNIT/ML VIAL Units Inject into fatty tissue 3 TIMES DAILY BEFORE MEALS Days = 30 Instructions: Blood sugar Insulin dose < 80mg/dl No dose 80-150 mg/dl No dose 151-200mg/dl One unit 201-250mg/dl Two units 251-300mg/dl Three units 301-350mg/dl Four units 351-400mg/dl Six units Above 400mg/dl Eight units and call MD. Comments: Last Taken: 10/21/16 Time: 5:00 PM Albuterol Sulfate (Accuneb) 0.63 MG/3 ML VIAL.NEB 1 Amp Inhale through mouth THREE TIMES DAILY as needed for COPD Comments: NOT TAKEN IN HOSP Allopurinol (Allopurinol) 100 MG TABLET 1 Tablet ORAL DAILY Qty = 30 Comments: NOT GIVEN IN HOSPITAL Warfarin Sodium (Coumadin) 5 MG TABLET 1 Tablet ORAL DAILY Instructions: please dose Coumadin as per INR. Comments: PER PT Colchicine (Colchicine) 0.6 MG TABLET 1 Tablet ORAL DAILY Comments: NOT GIVEN IN HOSPTIAL Start taking the following new medications: Budesonide/Formoterol Fumarate (Symbicort 80-4.5 Mcg Inhaler) 80 MCG-4.5 MCG/ ACTUATION HFA.AER.AD 2 Puff Inhale through mouth TWICE DAILY Days = 30 No Refills Prednisone (Prednisone) 10 MG TABLET 0 ORAL DAILY Days = 10 No Refills Instructions: TAKE 4 TABS ON 11/29 AND 11/30 TAKE 3 TABS ON 12/01 AND 12/02 TAKE 2 TABS ON 12/03 AND 12/04 TAKE 1 TAB ON 12/05 AND 12/06 AND THEN STOP Comments: Last Taken:11/29/16 Time:1000 Guaifenesin (Mucinex) 600 MG TAB.ER.12H 1 Tablet ORAL TWICE DAILY Qty = 20 No Refills Loratadine (Claritin) 10 MG TABLET 1 Tablet ORAL DAILY Days = 30 No Refills Mometasone Furoate (Nasonex) 50 MCG SPRAY.PUMP 2 [place] Both sides of nose DAILY Days = 5 No Refills Copies To: [address],YSABEL Burgos
[2016-11-28] MEDS ORDERED: SYMBICORT 80-10.2 GM INH (10:41)
[2016-11-28] MEDS ORDERED: PREDNISONE10 M2 PO (10:41)
--- NOTE | 2016-11-28 11:44 | NUR ---
ROOM AIR SAT ON AMBULATION 91%. AT REST 94% ON ROOM AIR
--- NOTE | 2016-11-28 14:15 | PN- Nephrology ---
Assessment/Plan Assessment: 1. End-stage renal disease 2. Shortness of breath secondary to volume overload/CHF/COPD 3. Hypertension/hypotension 4. Ischemic cardiomyopathy with decreased ejection fraction 5. Atrial fibrillation 6. Obstructive sleep apnea 7. MGUS - IgG kappa Suggestion: 1. Hemodialysis today in progress with ultrafiltration to his target weight as tolerated 2. Okay for discharge following dialysis from renal standpoint 3. Agree with discontinuation of hydralazine; we will monitor his blood pressures as an outpatient at dialysis 4. He will need a permanent vascular access, scheduling of which is apparently awaiting clarification of insurance coverage Subjective Subjective: Still coughing but without shortness of breath. He feels well enough to go home. Seen with hemodialysis. Objective Vital Signs and I&Os Vital Signs Date Time Temp Pulse Resp B/P Pulse O2 O2 Flow FiO2 Ox Delivery Rate 11/28 0824 94.7 77 132/57 90 Nasal 1.0L Cannula 11/28 0810 94 Nasal 1.0L Cannula 11/28 0800 94 Nasal 1.0L Cannula 11/28 0323 97 Nasal 2.0L Cannula 11/28 0000 Nasal 2.0L Cannula 11/27 2200 97.8 73 20 100/60 96 Nasal 2.0L Cannula 11/27 2127 73 100/60 11/27 1628 97.7 72 18 135/57 96 Nasal 2.0L Cannula 11/27 1600 Nasal 2.0L Cannula 11/27 1435 93 Nasal 2.0L Cannula Intake & Output 11/28 1600 11/28 0400 11/27 1600 11/27 0400 11/26 1600 11/26 0400 Intake Total 50 50 0146 925 5556 360 Output Total 200 850 400 125 Balance -150 50 250 100 630 235 Intake, IV 250 270 Intake, Oral 50 50 850 100 760 360 Output, Urine 200 850 400 125 Patient 183 lb 179 lb 182 lb Weight Physical Exam: General: Well-developed white male in no acute distress Skin: No rash or jaundice HEENT: Conjunctiva pink, sclera anicteric, mucous membranes moist Neck: Without masses or thyromegaly, no supraclavicular or cervical adenopathy Chest: Scattered wheezes, no rales Heart: Regular rate and rhythm without S3 or rub Abdomen: Soft and nontender without palpable masses or organomegaly Extremities: Trace edema without cyanosis Neuro: No focal findings, no asterixis or myoclonus Current Medications: Current Medications Sig/Johnna Start time Last Medication Dose Route Stop Time Status Admin Acetaminophen 650 MG Q6P PRN 11/25 0545 AC PO Albuterol Sulfate 3 ML BID 11/25 2200 AC 11/28 INH 0809 Aspirin Buffered 81 MG DAILY 11/25 1000 AC 11/27 PO 1046 Atorvastatin Calcium 20 MG 1700 11/25 1700 AC 11/27 PO 1725 Azithromycin 500 MG DAILY 11/25 0545 AC 11/27 Dextrose/Water 250 ML IV 1045 Colchicine 300 MCG DAILY 11/25 1000 AC 11/27 PO 1047 Epoetin Guzman 2,000 UNIT MoWeFr PRN 11/25 1040 AC IV Epoetin Guzman 3,000 UNIT MoWeFr PRN 11/25 1040 AC IV Folic Acid 1 MG DAILY 11/25 1000 AC 11/27 PO 1046 Furosemide 80 MG 0711/27 0700 AC 11/28 PO 0707 Insulin Aspart 0 TIDAC 11/25 0800 AC 11/28 SC 1215 Insulin Detemir 12 UNITS BID 11/25 1000 AC SC Isosorbide 60 MG DAILY 11/25 1000 AC 11/27 Mononitrate PO 1046 Metoprolol Tartrate 50 MG BID 11/25 1000 AC 11/27 PO 2127 Omeprazole 40 MG DAILY AC 11/25 0700 AC 11/28 PO 0706 Paricalcitol 2 MCG MoWeFr PRN 11/25 1040 AC IV Prednisone 60 MG DAILY 11/27 1000 AC 11/27 PO 11/28 2355 1045 Results Pertinent Lab Results: Laboratory Tests 11/28 11/28 1149 0615 Chemistry Sodium (137 - 145 mmol/L) 137 Potassium (3.5 - 5.1 mmol/L) 4.3 Chloride (98 - 107 mmol/L) 102 Carbon Dioxide (22 - 30 mmol/L) 18 L Anion Gap (5 - 16) 17 H BUN (9 - 20 mg/dL) 108 *H Creatinine (0.7 - 1.2 mg/dL) 5.5 *H Estimated GFR (>60 ml/min) 10 L BUN/Creatinine Ratio (7 - 25 %) 19.6 Glucose Cancelled Calcium Cancelled Phosphorus Cancelled Albumin Cancelled Coagulation PT (9.4 - 12.5 SEC) 29.2 H INR (0.90 - 1.17) 2.81 H Hematology CBC w Diff MAN DIFF ORDERED WBC (4.8 - 10.8 /CUMM) 8.5 RBC (4.70 - 6.10 /CUMM) 3.24 L Hgb (14.0 - 18.0 G/DL) 9.0 L Hct (42 - 52 %) 27.6 L MCV (80.0 - 94.0 FL) 85.1 MCH (27.0 - 31.0 PG) 27.6 RDW (11.5 - 14.5 %) 21.6 H Plt Count (130 - 400 /CUMM) 156 MPV (7.4 - 10.4 FL) 10.3 Gran % (42.2 - 75.2 %) 89.6 H Lymphocytes % (20.5 - 51.1 %) 5.7 L Monocytes % (1.7 - 9.3 %) 4.7 Eosinophils % (0 - 5 %) 0 Basophils % (0.0 - 2.0 %) 0 L Absolute Granulocytes (1.4 - 6.5 /CUMM) 7.6 H Absolute Lymphocytes (1.2 - 3.4 /CUMM) 0.5 L Absolute Monocytes (0.10 - 0.60 /CUMM) 0.4 Absolute Eosinophils (0.0 - 0.7 /CUMM) 0 Absolute Basophils (0.0 - 0.2 /CUMM) 0 Platelet Estimate (ADEQUATE) VERIFIED BY SMEAR Polychromasia 1+ Poikilocytosis 2+ Anisocytosis 2+ Ovalocytes 1+ [place] Cells 1+ PUBS MCHC (33.0 - 37.0 G/DL) 32.5 L 11/27 11/26 0727 1030 Chemistry Sodium (137 - 145 mmol/L) 139 142 Potassium (3.5 - 5.1 mmol/L) 4.4 4.4 Chloride (98 - 107 mmol/L) 101 101 Carbon Dioxide (22 - 30 mmol/L) 22 24 Anion Gap (5 - 16) 17 H 18 H BUN (9 - 20 mg/dL) 77 H 47 H Creatinine (0.7 - 1.2 mg/dL) 4.7 H 3.5 H Estimated GFR (>60 ml/min) 12 L 17 L BUN/Creatinine Ratio (7 - 25 %) 16.4 13.4 Coagulation PT (9.4 - 12.5 SEC) 33.6 H INR (0.90 - 1.17) 3.24 H Hematology CBC w Diff NO MAN DIFF REQ NO MAN DIFF REQ WBC (4.8 - 10.8 /CUMM) 9.9 8.9 RBC (4.70 - 6.10 /CUMM) 3.49 L 3.60 L Hgb (14.0 - 18.0 G/DL) 9.4 L 9.8 L Hct (42 - 52 %) 30.0 L 31.0 L MCV (80.0 - 94.0 FL) 85.9 86.2 MCH (27.0 - 31.0 PG) 26.9 L 27.2 RDW (11.5 - 14.5 %) 21.9 H 22.5 H Plt Count (130 - 400 /CUMM) 150 134 MPV (7.4 - 10.4 FL) 9.9 9.5 Gran % (42.2 - 75.2 %) 88.2 H 92.7 H Lymphocytes % (20.5 - 51.1 %) 5.5 L 3.8 L Monocytes % (1.7 - 9.3 %) 6.2 3.5 Eosinophils % (0 - 5 %) 0 0 Basophils % (0.0 - 2.0 %) 0.1 0 L Absolute Granulocytes (1.4 - 6.5 /CUMM) 8.8 H 8.3 H Absolute Lymphocytes (1.2 - 3.4 /CUMM) 0.5 L 0.3 L Absolute Monocytes (0.10 - 0.60 /CUMM) 0.6 0.3 Absolute Eosinophils (0.0 - 0.7 /CUMM) 0 0 Absolute Basophils (0.0 - 0.2 /CUMM) 0 0 PUBS MCHC (33.0 - 37.0 G/DL) 31.3 L 31.6 L 11/26 0640 Coagulation PT (9.4 - 12.5 SEC) 32.1 H INR (0.90 - 1.17) 3.09 H
[2016-11-28 17:14] VITALS: BP 124/44
--- NOTE | 2016-11-28 17:32 | PN- Cardiology ---
Subjective Subjective: The patient has no chest pain. He still complains of shortness of breath on ambulation. No palpitations. No diaphoresis. He has been noted to be hypotensive during dialysis. Objective Vital Signs and I&Os Vital Signs Date Time Temp Pulse Resp B/P Pulse O2 O2 Flow FiO2 Ox Delivery Rate 11/28 1714 98.1 71 20 124/44 88 Room Air 11/28 0824 94.7 77 132/57 90 Nasal 1.0L Cannula 11/28 0810 94 Nasal 1.0L Cannula 11/28 0800 94 Nasal 1.0L Cannula 11/28 0323 97 Nasal 2.0L Cannula 11/28 0000 Nasal 2.0L Cannula 11/27 2200 97.8 73 20 100/60 96 Nasal 2.0L Cannula 11/27 2127 73 100/60 Intake & Output 11/28 1600 11/28 0800 11/28 0000 11/27 1600 11/27 0800 11/27 0000 Intake Total 480 50 50 650 450 100 Output Total 250 200 450 400 Balance 230 -150 50 200 50 100 Intake, IV 250 Intake, Oral 480 50 50 400 450 100 Output, Urine 250 200 450 400 Patient 183 lb 179 lb Weight Physical Exam: Gen: The patient is in no acute distress HEENT: Normal nose, ears, and oropharynx. Pupils equal bilaterally. Conjunctiva normal. Neck: Supple with no JVD, no masses, and no thyromegaly Lungs: Clear to auscultation with normal respiratory effort Heart: RRR, S1, S2, no murmurs. 1-2+ peripheral edema, 1+ pulses in the lower extremities bilaterally Abdomen: Soft, nontender, no masses. No hepatomegaly. No splenomegaly Extremities: No clubbing or cyanosis. Normal muscle strength in the upper and lower extremities Skin: Normal skin turgor with no skin ulcers or lesions noted. Current Medications: Current Medications Sig/Johnna Start time Last Medication Dose Route Stop Time Status Admin Acetaminophen 650 MG Q6P PRN 11/25 0545 AC PO Albuterol Sulfate 3 ML BID 11/25 2199 AC 11/28 INH 0809 Aspirin Buffered 81 MG DAILY 11/25 1000 AC 11/27 PO 1046 Atorvastatin Calcium 20 MG 1700 11/25 1700 AC 11/27 PO 1725 Azithromycin 500 MG DAILY 11/25 0545 AC 11/27 Dextrose/Water 250 ML IV 1045 Colchicine 300 MCG DAILY 11/25 1000 AC 11/27 PO 1047 Epoetin Guzman 2,000 UNIT MoWeFr PRN 11/25 1040 AC IV Epoetin Guzman 3,000 UNIT MoWeFr PRN 11/25 1040 AC IV Folic Acid 1 MG DAILY 11/25 1000 AC 11/27 PO 1046 Furosemide 80 MG 0700 11/27 0700 AC 11/28 PO 0707 Insulin Aspart 0 TIDAC 11/25 0800 AC 11/28 SC 1215 Insulin Detemir 12 UNITS BID 11/25 1000 AC SC Isosorbide 60 MG DAILY 11/25 1000 AC 11/27 Mononitrate PO 1046 Metoprolol Tartrate 50 MG BID 11/25 1000 AC 11/27 PO 2127 Omeprazole 40 MG DAILY AC 11/25 0700 AC 11/28 PO 0706 Paricalcitol 2 MCG MoWeFr PRN 11/25 1040 AC IV Prednisone 60 MG DAILY 11/27 1000 AC 11/27 PO 11/28 2355 1045 Results Last 48 Hrs of Labs/Mics: Laboratory Tests 11/28/16 1149: Glucose Cancelled, Calcium Cancelled, Phosphorus Cancelled, Albumin Cancelled 11/28/16 0615: Anion Gap 17 H, Estimated GFR 10 L, BUN/Creatinine Ratio 19.6, PT 29.2 H, INR 2.81 H, CBC w Diff MAN DIFF ORDERED, RBC 3.24 L, MCV 85.1, MCH 27.6, RDW 21.6 H, MPV 10.3, Gran % 89.6 H, Lymphocytes % 5.7 L, Monocytes % 4.7, Eosinophils % 0, Basophils % 0 L, Absolute Granulocytes 7.6 H, Absolute Lymphocytes 0.5 L , Absolute Monocytes 0.4, Absolute Eosinophils 0, Absolute Basophils 0, Platelet Estimate VERIFIED BY SMEAR, Polychromasia 1+, Poikilocytosis 2+, Anisocytosis 2+ , Ovalocytes 1+, [place] Cells 1+, PUBS MCHC 32.5 L 11/27/16 0727: Anion Gap 17 H, Estimated GFR 12 L, BUN/Creatinine Ratio 16.4, PT 33.6 H, INR 3.24 H, CBC w Diff NO MAN DIFF REQ, RBC 3.49 L, MCV 85.9, MCH 26.9 L, RDW 21.9 H, MPV 9.9, Gran % 88.2 H, Lymphocytes % 5.5 L, Monocytes % 6.2, Eosinophils % 0, Basophils % 0.1, Absolute Granulocytes 8.8 H, Absolute Lymphocytes 0.5 L, Absolute Monocytes 0.6, Absolute Eosinophils 0, Absolute Basophils 0, PUBS MCHC 31.3 L Assessment/Plan Assessment/Plan Assessment: 1. COPD exacerbation 2. ESRD on HD 3. Hypertension 4. Atrial fibrillation, on anticoagulation 5. ICD 6. Diabetes mellitus Plan: * Given the recent hypotension during dialysis, I agree with discontinuing hydralazine * continue other cardiac medications. Continue telemetry? Yes
--- NOTE | 2016-11-28 18:23 | Event Note ---
Event Note Event Note: I was told by the nurse that the patient is feeling short of breath after coming from Dialysis and his saturation is coming down to 86-88%, so she started him on 1 liter of oxygen. I went to see the patient. He was feeling short of breath and having bouts of cough. We continued him on oxygen and plan not to discharge as patient was also not feeling comfortable for it. We told him to take rest and called respiratory therapist to come and see and if required than nebulization. He has not had his morning antibiotic, so we gave him 500 milligram of azithromycin tablet. We also started him on Symbicort as advised by Dr. Perry. On oxygen, he was saturating 91-93%. Also, he was comfortable, but he does not want to go home.We DC'd the discharge orders and continue his admission.
[2016-11-28 21:54] VITALS: BP 118/40
--- NOTE | 2016-11-29 07:52 | NUR ---
LATE ENTRY AT 0000 PT HAD A 4 BEAT RUN, ASYMPTOMATIC AT THIS TIME. BETZY QUIROZ AWARE, WILL CONTINUE TO MONITOR
[2016-11-29 08:00] VITALS: BP 130/56
--- NOTE | 2016-11-29 08:43 | PN- Housestaff ---
[address],LEELA 11/29/16 0843: Subjective Follow-up For: shortness of breath Subjective: Patient today is feeling fine. Currently on 1 L nasal cannula. Appears in no distress. Denies chest pain. Still complains of chest congestion and cough. Patient had an episode of hypoxia after dialysis in the evening. His oxygen saturation dropped down to 86-88%. Hence his discharge was canceled Review of Systems Constitutional: Reports: see HPI. Objective Last 24 Hrs of Vital Signs/I&O Vital Signs Date Time Temp Pulse Resp B/P Pulse O2 O2 Flow FiO2 Ox Delivery Rate 11/29 0936 134/60 11/29 0936 134/60 11/29 0820 94 Nasal 1.5L Cannula 11/29 0800 97.3 74 24 130/56 92 11/29 0006 91 Nasal 1.5L Cannula 11/29 0000 Nasal 1.5L Cannula 11/28 2154 74 18 118/40 91 Nasal 1.5L Cannula 11/28 2147 74 118/40 11/28 1930 96 Nasal 1.0L Cannula 11/28 1817 73 124/44 11/28 1714 98.1 71 20 124/44 88 Room Air 11/28 1600 88 Room Air Intake & Output 11/29 1600 11/29 0800 11/29 0000 Intake Total 140 360 Output Total 200 3000 Balance -60 -2640 Intake, IV 10 Intake, Oral 140 350 Number 0 Bowel Movements Output, 3000 Dialysate Output, Urine 200 0 Patient 178 lb 178 lb Weight Physical Exam General Appearance: Alert, Oriented X3, Cooperative, No Acute Distress Skin: No Rashes Cardiovascular: Regular Rate, Normal S1, Normal S2, No Murmurs Lungs: b/l exp wheezing present Abdomen: Normal Bowel Sounds, Soft, No Tenderness Extremities: No Clubbing, No Cyanosis, mild pitting edema present Current Medications: Current Medications Sig/Johnna Start time Last Medication Dose Route Stop Time Status Admin Acetaminophen 650 MG Q6P PRN 11/25 0545 AC PO Albuterol Sulfate 3 ML BID 11/25 2199 AC 11/29 INH 0828 Aspirin Buffered 81 MG DAILY 11/25 1000 AC 11/29 PO 0936 Atorvastatin Calcium 20 MG 1700 11/25 1700 AC 11/28 PO 1759 Azithromycin 500 MG ONCE ONE 11/28 1830 DC 11/28 PO 11/28 183 2049 Azithromycin 500 MG DAILY 11/25 0545 DC 11/27 Dextrose/Water 250 ML IV 1045 Benzocaine/Menthol 1 LAZARO Q2P PRN 11/29 0045 AC PO Budesonide/ 2 PUF BID 11/28 2200 AC 11/29 Formoterol Fumarate INH 0937 Colchicine 300 MCG DAILY 11/25 1000 AC 11/29 PO 0938 Epoetin Guzman 2,000 UNIT MoWeFr PRN 11/25 1040 AC IV Epoetin Guzman 3,000 UNIT MoWeFr PRN 11/25 1040 AC IV Fluticasone 2 SPRAY BID 11/29 1100 AC 11/29 Propionate CHULA 1131 Folic Acid 1 MG DAILY 11/25 1000 AC 11/29 PO 0936 Furosemide 80 MG 0700 11/27 0700 AC 11/29 PO 0602 Guaifenesin 600 MG Q12 11/29 1130 AC 11/29 PO 1240 Insulin Aspart 0 TIDAC 11/25 0800 AC 11/29 SC 1222 Insulin Detemir 12 UNITS BID 11/25 1000 DC SC Isosorbide 60 MG DAILY 11/25 1000 AC 11/29 Mononitrate PO 0936 Metoprolol Tartrate 50 MG BID 11/25 1000 AC 11/29 PO 0936 Omeprazole 40 MG DAILY AC 11/25 0700 AC 11/29 PO 0604 Paricalcitol 2 MCG MoWeFr PRN 11/25 1040 AC IV Prednisone 60 MG DAILY 11/27 1000 DC 11/28 PO 11/28 2355 1757 Last 24 Hrs of Lab/Satnam Results Last 24 Hrs of Labs/Mics: No labs today Assessment/Plan Assessment: Assessment and plan 71-year-old male with PMH of atrial fibrillation on warfarin, ESRD on dialysis MWF, congestive heart failure with reduced ejection fraction, pacemaker/AICD, HTN, HLD, COPD not on home oxygen, IDDM, gout, presented with shortness of breath was related to COPD exacerbation 1. Acute hypoxic respiratory failure secondary to COPD exacerbation along with a component of fluid overload in the setting of end-stage renal disease on dialysis. -Continue on a prednisone taper - Continue Symbicort twice a day and albuterol as needed - He does have some congestion which we will symptomatically treat with Mucinex, Claritin, Nasonex. - His saturation on ambulation dropped down to 88%. We will arrange for home oxygen 2. Congestive heart failure with reduced ejection fraction: - We'll continue his 80 mg Lasix daily. - Last echocardiogram September 2016 showed ejection fraction of 50%, aortic valve 80 of 1.1 cm RVSP of 52. follows Dr. Crandall. We'll continue to monitor daily weights and I's and O's. -Discontinue hydralazine. Will need close monitoring as an outpatient 3. End-stage renal disease on hemodialysis due to hypertensive nephrosclerosis and diabetic nephropathy - Continue dialysis - Patient was started on dialysis in September during his previous admission. - He is awaiting fistula placement 4. Leukocytosis: Resolved. 5. Gout: Patient takes allopurinol and colchicine. 6. Hypertension: Her pressure stable will continue his medication 7. Diabetes mellitus: Currently on NovoLog sliding scale and long-acting basal insulin 8. Atrial fibrillation: Rate controlled on Coumadin. - INR therapeutic today we'll continue his home dose Coumadin upon discharge Diet: Renal dialysis diet DVT ppx: mech and pharm Problem List: 1. CHF (congestive heart failure) 2. CKD (chronic kidney disease), stage IV Pain Ratin Pain Location: No pain Pain Goal: Remain pain free Pain Plan: not on meds Tomorrow's Labs & Rationales: Pt to be discharged today IRA HERBERT MD 11/29/16 1110: Attending MD Review Statement Attending Statement Attending MD Statement: examined this patient, discuss w/resident/PA/DIRECT SUPPORT SPECIALIST, agreed w/resident/PA/DIRECT SUPPORT SPECIALIST, reviewed EMR data (avail), discussed with nursing, discussed with case mgmt Attending Assessment/Plan: Patient did not leave yesterday as he felt short of breath and his O2 sat was 86 % on room air. He went up very nicely with 1 L of oxygen. He feels like he has a postnasal drip and that's causing this chronic cough. We talked at length and I will prescribe him an antihistamine with Mucinex and an intranasal steroid. His chest x-ray is negative for any infiltrate or effusion, I also discussed with Dr. Perry. Given his room air sat is 86-88% he does qualify for oxygen and the plan will be discharge today on oxygen, on a steroid taper, Symbicort inhaler and close outpatient follow-up.
[2016-11-29 09:36] VITALS: BP 134/60
--- NOTE | 2016-11-29 10:31 | RADIOLOGY REPORT ---
EXAMINATION: XR CHEST CLINICAL INFORMATION: Hypoxia. End stage renal disease. Evaluate for fluid overload. COMPARISON: CXR from 11/25/2016. TECHNIQUE: PA and lateral views of the chest were obtained. FINDINGS: There is a left pectoral region cardiac pacemaker/AICD with transvenous leads extending to the right atrium and both ventricles. Cardiac silhouette and central pulmonary vessels are enlarged, unchanged. There is no acute peripheral interstitial edema, focal consolidation or pleural effusion. Thoracic aorta is calcified. The right internal jugular double-lumen central catheter terminates at the junction of the superior vena cava and right atrium. No acute skeletal findings. IMPRESSION: Cardiomegaly and central vascular congestion without acute interstitial edema, pleural effusion or other significant change from 11/25/2016.
[2016-11-29] MEDS ORDERED: MUCINEX600 M1 PO (11:02)
[2016-11-29] MEDS ORDERED: CLARITIN10 M1 PO (11:02)
[2016-11-29] MEDS ORDERED: NASONEX17 GM NASB (11:02)
--- NOTE | 2016-11-29 11:12 | NUR ---
PT WAS 88 AT REST ON ROOM AIR PT WAS 87 W/AMBULATION ON ROOM AIR PT WAS 92 W/AMBULATION ON 2L PT WAS 94 AT REST ON 2L GERARD DEVINE AWARE
--- NOTE | 2016-11-29 12:15 | PN- Pulmonary ---
Subjective HPI/Critical Care Issues: Patient seen and examined. No chest pain, some cough remains with sinus pressure and postnasal drip. No nausea, vomiting, diarrhea or constipation. Afebrile and hemodynamically stable. Objective Current Medications: Current Medications Sig/Johnna Start time Last Medication Dose Route Stop Time Status Admin Acetaminophen 650 MG Q6P PRN 11/25 0545 AC PO Albuterol Sulfate 3 ML BID 11/25 2200 AC 11/29 INH 0828 Aspirin Buffered 81 MG DAILY 11/25 1000 AC 11/29 PO 0936 Atorvastatin Calcium 20 MG 1700 11/25 1700 AC 11/28 PO 1759 Azithromycin 500 MG ONCE ONE 11/28 1830 DC 11/28 PO 11/28 1831 2049 Azithromycin 500 MG DAILY 11/25 0545 DC 11/27 Dextrose/Water 250 ML IV 1045 Benzocaine/Menthol 1 LAZARO Q2P PRN 11/29 0045 AC PO Budesonide/ 2 PUF BID 11/28 2200 AC 11/29 Formoterol Fumarate INH 0937 Colchicine 300 MCG DAILY 11/25 1000 AC 11/29 PO 0938 Epoetin Guzman 2,000 UNIT MoWeFr PRN 11/25 1040 AC IV Epoetin Guzman 3,000 UNIT MoWeFr PRN 11/25 1040 AC IV Fluticasone 2 SPRAY BID 11/29 1100 AC 11/29 Propionate CHULA 1131 Folic Acid 1 MG DAILY 11/25 1000 AC 11/29 PO 0936 Furosemide 80 MG 0711/27 0700 AC 11/29 PO 0602 Guaifenesin 600 MG Q12 11/29 1130 AC PO Insulin Aspart 0 TIDAC 11/25 0800 AC 11/29 SC 0801 Insulin Detemir 12 UNITS BID 11/25 1000 DC SC Isosorbide 60 MG DAILY 11/25 1000 AC 11/29 Mononitrate PO 0936 Metoprolol Tartrate 50 MG BID 11/25 1000 AC 11/29 PO 0936 Omeprazole 40 MG DAILY AC 11/25 0700 AC 11/29 PO 0604 Paricalcitol 2 MCG MoWeFr PRN 11/25 1040 AC IV Prednisone 60 MG DAILY 11/27 1000 DC 11/28 PO 11/28 2355 1757 Vital Signs & I&O Last 24 Hrs of Vitals and I&O: Vital Signs Date Time Temp Pulse Resp B/P Pulse O2 O2 Flow FiO2 Ox Delivery Rate 11/29 0936 134/60 11/29 0936 134/60 11/29 0820 94 Nasal 1.5L Cannula 11/29 0800 97.3 74 24 130/56 92 11/29 0006 91 Nasal 1.5L Cannula 11/29 0000 Nasal 1.5L Cannula 11/28 2154 74 18 118/40 91 Nasal 1.5L Cannula 11/28 2147 74 118/40 11/28 1930 96 Nasal 1.0L Cannula 11/28 1817 73 124/44 11/28 1714 98.1 71 20 124/44 88 Room Air 11/28 1600 88 Room Air Intake & Output 11/29 1600 11/29 0800 11/29 0000 Intake Total 140 360 Output Total 200 3000 Balance -60 -2640 Intake, IV 10 Intake, Oral 140 350 Number 0 Bowel Movements Output, 3000 Dialysate Output, Urine 200 0 Patient 178 lb 178 lb Weight Exam Other Physical Findings: gen awake and alert heent ncat cvs s1, s2 lungs rare wheeze abd soft, bs+ ext no edema, chronic venous stasis Impression/Plan Impression/Plan Impression/Plan: Impression 71 year old man. ESRD, CHF, COPD. Recent GI bleed and admission to ICU. Hx of MGUS and pulmonary htn. Presentes with a cough and dyspnea and leg edema. Due for HD. Possibly viral illness contacts, no travel hx. Some wheezing and non-productive cough. CXR overall clear. Hx of CHF on diuresis and ESRD on HD. Plan - HD per renal - Symbicort - TRC/Nebs - nephrology input - f/u cardiology - reduce fio2 as tolerated, if SPO2 below 88% will require oxygen - DVT prophylaxis at all times DC planning cont mucinex, flonase consider ENT evaluation on a non urgent basis
== END 2016-11-29 18:00 | DRG 291 ==
LOC: ENRESERVDT → ENRESERVTM → ERH 03:16 → ENPENDDIS 03:31 → 1NO 03:31 → ERHI 03:31 → ERH 03:32 → 1NO 05:48
PROVIDERS: Emergency Medicine; Internal Medicine; Student in an Organized Health Care Education/Training Program; ADMIT Internal Medicine
DX: I50.23 Acute on chronic systolic (congestive) heart failure (principal); J96.01 Acute respiratory failure with hypoxia; N18.6 End stage renal disease; J44.1 Chronic obstructive pulmonary disease with (acute) exacerbation; I13.2 Hypertensive heart and chronic kidney disease with heart failure and with stage 5 chronic kidney disease, or end stage renal disease; Z99.2 Dependence on renal dialysis
CPT/HCPCS: 1NP; 36415; 82436; 87040; 87070; 87804; 87804-59; 93005; 93010; J0456; J0885; J2501; J2920; J2930; J3490; J7060

== ENCOUNTER 2016-12-17 06:17 | Inpatient (IN) | payer OTHER, MEDICARE ==
[~2016-12-17] VITALS: Ht 167.6 cm; Wt 81.6 kg
[~2016-12-17 06:17] MED LIST changes: +CLARITIN10 M1 PO; +MUCINEX600 M1 PO; +NASONEX17 GM NASB; +PREDNISONE10 M2 PO; +SYMBICORT 80-10.2 GM INH
[2016-12-17 07:45] LABS: PT 21.7 SEC (9.4-12.5); PTT 39 SEC (25-37)
--- NOTE | 2016-12-17 07:49 | ED GENERAL ADULT ---
History of Present Illness General Chief Complaint: General Adult Stated Complaint: JOINT PAIN Source: patient, old records, EMS Exam Limitations: no limitations Vital Signs & Intake/Output Vital Signs & Intake/Output Vital Signs Date Time Temp Pulse Resp B/P Pulse O2 O2 Flow FiO2 Ox Delivery Rate 12/17 1142 70 20 142/56 96 Nasal 2.0L Cannula 12/17 1104 93 Room Air 12/17 0902 99.8 70 17 157/68 93 Room Air 12/17 0644 93 Room Air 12/17 0628 99.9 72 18 147/65 93 Room Air Allergies Coded Allergies: NO KNOWN ALLERGIES (10/04/16) Reconcile Medications Albuterol Sulfate (Proventil Hfa) 90 MCG HFA.AER.AD 1-2 PUFF INH Q4-6H PRN SHORTNESS OF BREATH (Reported) Albuterol Sulfate (Accuneb) 0.63 MG/3 ML VIAL.NEB 1 AMP INH TID PRN COPD ( Reported) Allopurinol 100 MG TABLET 1 TAB PO DAILY GOUT Aspirin (Ecotrin) 81 MG TABLET.DR 1 TAB PO DAILY HEART (Reported) Budesonide/Formoterol Fumarate (Symbicort 80-4.5 Mcg Inhaler) 80 MCG-4.5 MCG/ ACTUATION HFA.AER.AD 2 PUF INH BID copd Colchicine 0.6 MG TABLET 1 TAB PO DAILY GOUT (Reported) Ferrous Sulfate 325 MG (65 MG IRON) TABLET 1 TAB PO BID SUPPLEMENT (Reported) Folic Acid 1 MG TABLET 1 MG PO DAILY SUPPLEMENT (Reported) Furosemide (Lasix) 40 MG TABLET 2 TAB PO DAILY HEART (Reported) Guaifenesin (Mucinex) 600 MG TAB.ER.12H 1 TAB PO BID MUCOLYTIC Insulin Glargine, Recombinan (Lantus) 100 U/ML SALIMA 12 UNIT SC DAILY DIABETES (Reported) Insulin Lispro (Humalog) 100 UNIT/ML VIAL diabetes (Reported) Blood sugar Insulin dose < 80mg/dl No dose 80-150 mg/dl No dose 151-200mg/dl One unit 201-250mg/dl Two units 251-300mg/dl Three units 301-350mg/dl Four units 351-400mg/dl Six units Above 400mg/dl Eight units and call Isosorbide Mononitrate (Imdur) [address] 1 TAB PO DAILY CAD (Reported) Loratadine (Claritin) 10 MG TABLET 1 TAB PO DAILY NASAL CONGESTION Metoprolol Tartrate (Lopressor) 50 MG TAB 1 TAB PO BID HEART (Reported) Mometasone Furoate (Nasonex) 50 MCG SPRAY.PUMP 2 SPRAY NASB DAILY NASAL CONGESTION Omeprazole 20 MG CAPSULE.DR 1 CAP PO DAILY AC GI (Reported) Prednisone 10 MG TABLET 0 PO DAILY copd TAKE 4 TABS ON 11/29 AND 11/30 TAKE 3 TABS ON 12/01 AND 12/02 TAKE 2 TABS ON 12/03 AND 12/04 TAKE 1 TAB ON 12/05 AND 12/06 AND THEN STOP Simvastatin (Zocor) 20 MG TAB 1 TAB PO 1700 CHOLESTEROL (Reported) Warfarin Sodium (Coumadin) 5 MG TABLET 1 TAB PO DAILY BLOOD THINNER (Reported ) please dose Coumadin as per INR. Core Measure Meds Pre-Hospital coumadin Triage Note: ARRIVED ER 3 VIA AMBULANCE FROM HOME PT C/O PAIN IN ALL HIS JOINTS STARTED A FEW DAYS AGO, PAIN WAS SO BAD YESTERDAY HE MISSED HIS DIALYSIS, PT HAS MARITZA CATH RT CHEST SLIGHT REDNESS NOTED AT SITE, NO DRAINAGE, PT IS TO HAVE DIALYSIS SHUNT PLACED IN LT ARM UNKNOWN DATE, PT ALSO IS ON AMOXICILLIN FOR COUGH. PT HAS PACEMAKER/DEFIB IN LT CHEST Triage Nurses Notes Reviewed? yes Onset: Last week Duration: constant, continues in ED, getting worse Timing: recent history Injury Environment: home Severity: severe Modifying Factors: Worsens With: movement. Associated Symptoms: cough HPI: Several days prior to admission patient has had increasing joint pain described as severe sharp constant nonradiating with limited range of motion worse with palpation movement of his right wrist bilateral elbow bilateral knee and right ankle. He is been I'm able to bear weight or walk secondary to the pain or open and close his right hand. He missed dialysis yesterday secondary to the pain. He also reports being treated with amoxicillin for productive cough 1 week prior to admission. He denies fever chills nausea vomiting diarrhea abdominal pain chest pain shortness of breath headache dysuria rash bleeding. Past History Travel History Traveled to [place] past 21 day No Medical History Any Pertinent Medical History? 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 Hx Contributory? No Review of Systems Review of Systems Constitutional: Reports: see HPI, weakness. EENTM: Reports: no symptoms. Respiratory: Reports: see HPI, cough, sputum production. Cardiovascular: Reports: no symptoms. GI: Reports: no symptoms. Genitourinary: Reports: no symptoms. Musculoskeletal: Reports: see HPI, gout, joint pain, joint swelling. Skin: Reports: no symptoms. Neurological/Psychological: Reports: no symptoms. Hematologic/Endocrine: Reports: no symptoms. Immunologic/Allergic: Reports: no symptoms. All Other Systems: Reviewed and Negative Physical Exam Physical Exam General Appearance: well developed/nourished, alert, awake, anxious, severe distress, obese Head: atraumatic, normal appearance Eyes: Bilateral: normal appearance, PERRL, EOMI. Ears, Nose, Throat: normal pharynx, normal ENT inspection, hearing grossly normal Neck: normal inspection, supple, full range of motion, no midline tenderness Respiratory: chest non-tender, no respiratory distress, quiet respiration, lungs clear, decreased breath sounds Cardiovascular: regular rate/rhythm, murmur, normal peripheral pulses, norml femoral pulses equa Peripheral Pulses: 4+ carotid (R), 4+ carotid (L), 1+ radial (R), 1+ radial (L) Gastrointestinal: normal bowel sounds, soft, non-tender, no organomegaly Back: normal inspection, normal range of motion Extremities: normal capillary refill, limited range of motion, pedal edema, slow capillary refill, swelling, tenderness Neurologic/Psych: no motor/sensory deficits, awake, alert, oriented x 3, normal mood/affect, 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 Skin: intact, warm/dry, rash Lymphatic: no anterior cervical alea Core Measures ACS in differential dx? Yes CVA/TIA Diagnosis: No Severe Sepsis Present: No Septic Shock Present: No Progress Differential Diagnoses I considered the following diagnoses in my evaluation of the patient: gouty arthropathy pseudogout ESRD pneumonia Plan of Care: Orders Procedure Date/time Status PROTHROMBIN TIME 12/18 0600 Active PHOSPHORUS 12/18 0600 Active MAGNESIUM 12/18 0600 Active CBC WITHOUT DIFFERENTIAL 12/18 0600 Active CALCIUM 12/18 0600 Active BASIC ELECTROLYTES PLUS BUN&CR 12/18 0600 Active Renal Dialysis Diet 12/17 L Active Renal Dialysis Diet 12/17 B Complete Vital Signs 12/17 1103 Active Teach/Educate 12/17 1103 Active Nutritional Intake, Monitor 12/17 1103 Active Isolation 12/17 1103 Active Intake & Output 12/17 1103 Active Patient Care Conference 12/17 1103 Active Activity/Ambulation 12/17 1103 Active TRC EVALUATION (GEN) 12/17 0930 Active Pathway - chart 12/17 0930 Active House Staff 12/17 0930 Active Vital Signs 12/17 0930 Active Intake & Output 12/17 0930 Active Code Status 12/17 0930 Active Patient Data 12/17 0849 Active Add-on Test (ER Only) 12/17 0749 Active OXYGEN SETUP (GEN) 12/17 0724 Active Saline Lock 12/17 0724 Active Admit to inpatient 12/17 0724 Active Vital Signs 12/17 0724 Active Activity/Ambulation 12/17 0724 Active Code Status 12/17 0724 Complete Add-on Test (ER Only) 12/17 0721 Active BLOOD CULTURE 12/17 0721 Active EKG 12/17 0721 Active URIC ACID 12/17 0655 Complete TROPONIN LEVEL 12/17 0655 Complete PARTIAL THROMBOPLASTIN TIME 12/17 0655 Complete PROTHROMBIN TIME 12/17 0655 Complete PHOSPHORUS 12/17 0655 Complete BLOOD CULTURE 12/17 0653 Active COMPREHENSIVE METABOLIC PANEL 12/17 0647 Complete CBC WITHOUT DIFFERENTIAL 12/17 0647 Complete Intake & Output 12/17 0625 Active PT Evaluate & Treat 12/17 UNK Active VTE Mechanical Prophylaxis 12/17 UNK Active FingerStick- Glucose 12/17 UNK Active Activity/Ambulation 12/17 UNK Active Current Medications Sig/Johnna Start time Last Medication Dose Stop Time Status Admin Atorvastatin Calcium 10 MG 1700 12/17 1700 AC (Lipitor) Warfarin Sodium 5 MG 1700 12/17 1700 AC (Coumadin) 12/17 1701 Acetaminophen 650 MG Q6 12/17 1200 AC (Tylenol) 12/18 0601 Insulin Aspart 0 TIDAC 12/17 1200 AC (NovoLOG) Colchicine 300 MCG DAILY 12/17 1016 AC (Colchicine 600MCG Tab) Allopurinol 100 MG DAILY 12/17 1000 AC (Zyloprim) Aspirin Buffered 81 MG DAILY 12/17 1000 AC (Ecotrin) Budesonide/ 2 PUF BID 12/17 1000 AC Formoterol Fumarate (SYMBICORT) Folic Acid 1 MG DAILY 12/17 1000 AC (Folic Acid) Furosemide 80 MG DAILY 12/17 1000 AC (Lasix) Guaifenesin 600 MG BID 12/17 1000 AC (Mucinex) Insulin Detemir 5 UNITS BID 12/17 1000 AC (Levemir) Isosorbide 60 MG DAILY 12/17 1000 AC Mononitrate (Imdur) Loratadine 10 MG DAILY 12/17 1000 AC (Claritin) Metoprolol Tartrate 50 MG BID 12/17 1000 AC (Lopressor) Albuterol Sulfate 2 PUF Q4-6 PRN PRN 12/17 0945 AC (Ventolin) Albuterol Sulfate 3 ML Q6 PRN 12/17 0945 AC (Proventil) Omeprazole 20 MG DAILY AC 12/17 0935 AC (Prilosec) Laboratory Tests 12/17/16 0655: Anion Gap 13, Estimated GFR 9 L, BUN/Creatinine Ratio 9.7, Glucose 121 H, Uric Acid 6.0, Calcium 8.0 L, Phosphorus 7.5 H, Total Bilirubin 0.7, AST 13 L, ALT 26, Alkaline Phosphatase 98, Troponin I 0.07, Total Protein 5.6 L, Albumin 3.2 L, Globulin 2.4, Albumin/Globulin Ratio 1.3, PT 21.7 H, INR 2.08 H, APTT 39 H , CBC w Diff NO MAN DIFF REQ, RBC 3.54 L, MCV 87.4, MCH 28.0, RDW 20.3 H, MPV 9.6, Gran % 87.0 H, Lymphocytes % 5.2 L, Monocytes % 6.7, Eosinophils % 1.0, Basophils % 0.1, Absolute Granulocytes 12.5 H, Absolute Lymphocytes 0.7 L, Absolute Monocytes 1.0 H, Absolute Eosinophils 0.1, Absolute Basophils 0, PUBS MCHC 32.0 L Microbiology 12/17 720 BLOOD: Blood Culture - ORD 12/17 718 BLOOD: Blood Culture - RECD 12/17 654 BLOOD: Blood Culture - RECD Diagnostic Imaging: Viewed by Me: Radiology Read. Discussed w/RAD: Radiology Read. CXR Impression: no acute abnormality, no infiltrates Initial ED EKG: pacemaker rhythm, no ST T wave changes Prior EKG: unchanged Rhythm Strip: paced Departure Departure Disposition: STILL A PATIENT Condition: Stable Clinical Impression Primary Impression: Acute gouty arthropathy Secondary Impressions: End stage renal disease Referrals: [facility],YSABEL Burgos (PCP/Family) Departure Forms: Customer Survey General Discharge Information Admission Note Spoke With: JONAH POP MD Documentation of Exam: Documentation of any treatments & extenuating circumstances including Concerns Regarding Discharge (functional status, medication knowledge or non-compliance, living conditions, etc.) that warrant an admission rather than observation: IV analgesia and IV steroids rheumatology evaluation renal evaluation serial lab exam hemodialysis medication adjustment continuing care discharge planning Critical Care Note Critical Care Note Critical Care Time: non-applicable
[2016-12-17 08:02] LABS: ABSOLUTE BASOPHIL COUNT 0 /CUMM (0.0-0.2); ABSOLUTE EOSINOPHIL COUNT 0.1 /CUMM (0.0-0.7); ABSOLUTE GRANULOCYTE CT 12.5 /CUMM (1.4-6.5); ABSOLUTE LYMPH COUNT 0.7 /CUMM (1.2-3.4); BASOPHIL % 0.1 % (0.0-2.0); HEMATOCRIT 30.9 % (42-52); MEAN CORPUSCULAR VOLUME 87.4 FL (80.0-94.0); MEAN PLATELET VOLUME 9.6 FL (7.4-10.4); RBC DISTRIBUTION WIDTH 20.3 % (11.5-14.5); RED BLOOD CELL CT 3.54 /CUMM (4.70-6.10); WHITE BLOOD CELL COUNT 14.4 /CUMM (4.8-10.8)
--- NOTE | 2016-12-17 08:02 | RADIOLOGY REPORT ---
EXAMINATION: XR PORTABLE CHEST CLINICAL INFORMATION: Cough. Myalgia. COMPARISON: November 29, 2016 and studies dating back to February 09, 2015 TECHNIQUE: Portable AP view of the chest was obtained. FINDINGS: There is no evidence of acute parenchymal disease, pneumothorax, or pleural effusion. The cardiopericardial silhouette is enlarged. Patient status post median sternotomy and CABG. Pacemaker/defibrillator in place. Right internal jugular dialysis catheter in place with tip within the right atrium. IMPRESSION: No acute disease.
[2016-12-17 08:15] LABS: PLATELET COUNT 76 /CUMM (130-400)
--- NOTE | 2016-12-17 09:54 | History & Physical ---
ALLISON HAY 12/17/16 0940: General Information and HPI MD Statement: I have seen and personally examined DUNCAN ORELLANA and documented this H&P. The patient is a 71 year old M who presented with a patient stated chief complaint of generalized joint pain. Source of Information: patient, old records Exam Limitations: no limitations History of Present Illness: Mr. Orellana is a 71-year-old gentleman with past medical history of atrial fibrillation on Coumadin, end-stage renal disease on dialysis Monday, congestive heart failure with reduced ejection fraction, pacemaker/AICD, hypertension, hyperlipidemia, COPD on 2 L home oxygen, IDDM and gout who presents to [facility] ED today with chief complaint of generalized joint pain and severe tenderness of large joints. The patient was in his usual state of health until 12/15/2016. The following day patient started experiencing severe joint aches and pains, to extent we are he was unable to ambulate. The patient ambulates without limitation without a walker or cane, at baseline. He does admit to severe ankle pain, limiting his ambulation, but no numbness/tingling or paresthesias. Denies any loss of bowel or bladder control. Denies any falls or any episodes of loss of consciousness. Denies any trauma to the joints. Patient does admit to 2 week history of productive cough, with clear expectorant. He believes that the cough started after he came in contact with the dialysis nurse with "severe hacking cough" at the Center. On Monday, patient's visiting nurse noted that the patient had a fever of "100 point some thing". She contacted patient's PCP and was prescribed amoxicillin for the fever, which he started taking yesterday. This morning, patient started experiencing excruciating pain in his wrist knee and ankle joints and that prompted his current visit to the ED. In the ED, patient has had low-grade fever of 99.9 and has had cough without expectoration. No recent travel. Positive sick contacts. Patient did not receive any flu shot this year. Patient has history of gout for which he takes allopurinol and colchicine. He hasn't been taking colchicine. Review of systems is positive for malaise and fatigue. Denies any rashes. Other systems reviewed and negative exceptions above. Allergies/Medications Allergies: Coded Allergies: NO KNOWN ALLERGIES (11/29/16) Home Med list Albuterol Sulfate (Proventil Hfa) 90 MCG HFA.AER.AD 1-2 PUFF INH Q4-6H PRN SHORTNESS OF BREATH (Reported) Albuterol Sulfate (Accuneb) 0.63 MG/3 ML VIAL.NEB 1 AMP INH TID PRN COPD ( Reported) Allopurinol 100 MG TABLET 1 TAB PO DAILY GOUT Aspirin (Ecotrin) 81 MG TABLET.DR 1 TAB PO DAILY HEART (Reported) Budesonide/Formoterol Fumarate (Symbicort 80-4.5 Mcg Inhaler) 80 MCG-4.5 MCG/ ACTUATION HFA.AER.AD 2 PUF INH BID copd Colchicine 0.6 MG TABLET 1 TAB PO DAILY GOUT (Reported) Ferrous Sulfate 325 MG (65 MG IRON) TABLET 1 TAB PO BID SUPPLEMENT (Reported) Folic Acid 1 MG TABLET 1 MG PO DAILY SUPPLEMENT (Reported) Furosemide (Lasix) 40 MG TABLET 2 TAB PO DAILY HEART (Reported) Guaifenesin (Mucinex) 600 MG TAB.ER.12H 1 TAB PO BID MUCOLYTIC Insulin Glargine, Recombinan (Lantus) 100 U/ML SALIMA 12 UNIT SC DAILY DIABETES (Reported) Insulin Lispro (Humalog) 100 UNIT/ML VIAL diabetes (Reported) Blood sugar Insulin dose < 80mg/dl No dose 80-150 mg/dl No dose 151-200mg/dl One unit 201-250mg/dl Two units 251-300mg/dl Three units 301-350mg/dl Four units 351-400mg/dl Six units Above 400mg/dl Eight units and call MD. Isosorbide Mononitrate (Imdur) [address] 1 TAB PO DAILY CAD (Reported) Loratadine (Claritin) 10 MG TABLET 1 TAB PO DAILY NASAL CONGESTION Metoprolol Tartrate (Lopressor) 50 MG TAB 1 TAB PO BID HEART (Reported) Mometasone Furoate (Nasonex) 50 MCG SPRAY.PUMP 2 SPRAY NASB DAILY NASAL CONGESTION Omeprazole 20 MG CAPSULE.DR 1 CAP PO DAILY AC GI (Reported) Prednisone 10 MG TABLET 0 PO DAILY copd TAKE 4 TABS ON 11/29 AND 11/30 TAKE 3 TABS ON 12/01 AND 12/02 TAKE 2 TABS ON 12/03 AND 12/04 TAKE 1 TAB ON 12/05 AND 12/06 AND THEN STOP Simvastatin (Zocor) 20 MG TAB 1 TAB PO 1700 CHOLESTEROL (Reported) Warfarin Sodium (Coumadin) 5 MG TABLET 1 TAB PO DAILY BLOOD THINNER (Reported ) please dose Coumadin as per INR. Compliance With Home Meds: GOOD Past History Travel History Traveled to [place] past 21 day No Medical History Neurological: NONE Cardiovascular: AFIB (paroxysmal), CAD, hypertension, hyperlipidemia, systolic CHF, PACEMAKER/DEFIBRILLATOR Respiratory: COPD, obstructive sleep apnea (not using CPAP), NON COMPLIANT W/ CPAP Gastrointestinal: GERD Hepatic: NONE Renal: ESRD on HD Musculoskeletal: gout, CELLULITIS Psychiatric: NONE Endocrine: diabetes Blood Disorders: anemia, monoclonal gammopathy of unknown significance Cancer(s): NONE RN ANTE PARTUM/Reproductive: NONE History of MRSA: Yes History of VRE: No History of CDIFF: No Pneumonia Vaccine: 11/20/16 Surgical History Surgical History: PACEMAKER Past Family/Social History Family History Relations & Conditions if any MOTHER (Lung cancer). Psychosocial History Who Do You Live With? self Services at Home: None Primary Language: Bulgarian Functional Ability ADLs Independent: dressing, eating, toileting, bathing. Ambulation: independent IADLs Independent: shopping, housework, finances, food prep, telephone, transportation , medication admin. Review of Systems Review of Systems Constitutional: Reports: see HPI. Exam & Diagnostic Data Last 24 Hrs of Vital Signs/I&O Vital Signs Date Time Temp Pulse Resp B/P Pulse O2 O2 Flow FiO2 Ox Delivery Rate 12/17 0902 99.8 70 17 157/68 93 Room Air 12/17 0644 93 Room Air 12/17 0628 99.9 72 18 147/65 93 Room Air Intake & Output 12/17 1600 12/17 0800 12/17 0000 Intake Total Output Total Balance Patient 187 lb Weight Physical Exam General Appearance Alert, Oriented X3, Mild Distress Skin No Rashes, No Breakdown, No Significant Lesion HEENT Atraumatic, PERRLA, EOMI, Mucous Membr. moist/pink Neck Supple, No JVD, No LAD Cardiovascular Regular Rate, Normal S1, Normal S2 Lungs Clear to Auscultation, Normal Air Movement (anteriorly) Abdomen Normal Bowel Sounds, distended, discomfort palpation noted. Neurological Normal Speech, Sensation Intact, Cranial Nerves 3-12 NL, unable to assess strength secondary to severe joint tenderness. Extremities No Clubbing, No Cyanosis, No Edema, no soft tissue swelling noted in the wrist, knees. Mild swelling in ankles. No warmth over joints. Limited range of motion secondary to pain. Last 24 Hrs of Labs/Satnam: Laboratory Tests 12/17/1655: Anion Gap 13, Estimated GFR 9 L, BUN/Creatinine Ratio 9.7, Glucose 121 H, Uric Acid 6.0, Calcium 8.0 L, Phosphorus 7.5 H, Total Bilirubin 0.7, AST 13 L, ALT 26, Alkaline Phosphatase 98, Troponin I 0.07, Total Protein 5.6 L, Albumin 3.2 L, Globulin 2.4, Albumin/Globulin Ratio 1.3, PT 21.7 H, INR 2.08 H, APTT 39 H , CBC w Diff NO MAN DIFF REQ, RBC 3.54 L, MCV 87.4, MCH 28.0, RDW 20.3 H, MPV 9.6, Gran % 87.0 H, Lymphocytes % 5.2 L, Monocytes % 6.7, Eosinophils % 1.0, Basophils % 0.1, Absolute Granulocytes 12.5 H, Absolute Lymphocytes 0.7 L, Absolute Monocytes 1.0 H, Absolute Eosinophils 0.1, Absolute Basophils 0, PUBS MCHC 32.0 L Microbiology 12/17 720 BLOOD: Blood Culture - ORD 12/17 718 BLOOD: Blood Culture - RECD 12/17 654 BLOOD: Blood Culture - RECD Diagnostic Data EKG Results Rate 72, atrial sensed ventricular paced rhythm. CXR Results IMPRESSION: No acute disease. Assessment/Plan Assessment: Acute onset of polyarticular pain in this elderly gentleman on dialysis, without evidence of any overt joint swelling, but exquisite tenderness/involvement of lower extremities in the setting of recent onset of cough/Malaise/fever after an encounter with a sick contact, although difficult to reach a definitive diagnosis, however, makes the diagnosis of viral arthralgia highly suspicious. 1. Generalized joint pain: Presence of fever, symmetric polyarticular disease/ arthralgias coincident with clinical onset of cough may be suggestive of viral arthritis, which usually is a self-limiting disease and requires symptomatic care. IV Tylenol has been proven to be effective for joint pains. Having said that, patient does have history of gout, although physical examination does not suggest so. We will add on uric acid. Patient does have high phosphorus, pseudogout remains a concern. Restart colchicine at reduced dose with careful monitioring of renal function. Hold off any imaging at this point. Drug- induced lupus/arthritis less likely (Hydralazine was stopped during last admission). If no improvement in symptoms, may require ID/ rheumatology consult. Stop amoxicillin prescribed by PCP. Physical therapy. 2. Thrombocytopenia: Likely a result of infection. Close monitoring of platelets, low-grade DIC unlikely, but a possibility. Obviously, hold off on any Heparin or like products. Medication list reviewed, none identified to cause drug-induced thrombocytopenia. Continue aspirin. 3. End-stage renal disease on dialysis: Nephrology consult placed. Scheduled to receive dialysis today. Continue renal dialysis diet, 2 g sodium and potassium restriction, fluid restriction 1200 mL. 4. IDDM: Patient is on Lantus 12 units daily at home. Start patient on Levemir 5 units twice a day with medium dose NovoLog sliding scale. Increase dose per accuchecks. Accu-Cheks 3 times a day before meals at bedtime. 5. COPD on home oxygen: TRC. Continue home nebulizers and inhalers. 6. Atrial fibrillation on Coumadin: EKG reviewed, atrial paced ventricle sensed rhythm, rate controlled. Continue Coumadin at 5 mg daily. Check INR in the morning. 7. Congestive heart failure with reduced ejection fraction: Continue metoprolol , Imdur and Lasix at home doses. Continue home medications for hypertension and hyperlipidemia. Full code. Renal dialysis diet. DVT prophylaxis addressed by therapeutic INR on Coumadin. As Ranked By This Provider Problem List: 1. End-stage renal disease on hemodialysis Core Measures/Miscellaneous Acute Coronary Syndrome ACS Diagnosis: No Cerebrovascular Accident CVA/TIA Diagnosis: No Congestive Heart Failure CHF Diagnosis: No Venous Thromboembolism VTE Risk Factors: Acute medical illness, Age > 40, Immobility, paresis VTE Prophylaxis Ordered Inpt: Pharm- Warfarin No [facility] VTE prophylaxis d/t: No contraindications No VTE Pharm Prophylaxis d/t: No contraindications VTE Diagnosis: No VTE Type: NONE VTE Confirmed by (Test): NONE Severe Sepsis Severe Sepsis Present: No Septic Shock Septic Shock Present: No Miscellaneous Documentation Attending Case Discussed With: JONAH POP MD Primary Care Physician: YSABEL DE LA TORRE MD Patient sees these Specialists Dr. Tico Crandall Level of Patient Care: General Medicine JONAH POP MD 12/17/16 7453: Attending MD Review Statement Attending Statement Attending MD Statement: examined this patient, discuss w/resident/PA/CALL OR CONTACT CENTRE OPERATOR, agreed w/resident/PA/CALL OR CONTACT CENTRE OPERATOR, reviewed EMR data (avail), reviewed images, amended to note Attending Assessment/Plan: The patient is a 71 yo male with h/o PAF, ESRD on dialysis, ?gouty arthritis, HTN, CHF with reduced EF/AICD, HL, FREDY and COPD (on chronic 2 L/Min nasal oxygen) who presented on the day of admission in the [place] ED after being unable to get to his last 2 dialysis treatment due to rather diffuse joint discomfort. Has a h/o "gout" as per patient and has been on colchicine and allopurinol in the past. Stated he has also had a tapered course of steroids in the past for gout flare. Does not recall seeing a biochemical development engineer. He has had a 2 day h/o cough productive of yellow/green mucous and a low grade fever of 100. No chills. Has had increased dyspnea. Joint pains have been in hands, knees, and feet. He had been seen by Dr. De La Torre and was treated with Amoxicillin for his bronchitis. His breathing improved after aerosol treatment. Physical Exam: VS: T 99, P 72, R 18, BP 147/65, PO 93% RA HEENT: eyes- PERRLA, EOMI stewart- no lesions, dry mucosa Neck: no JVD/bruits Chest: diminished breath sounds with mild expiratory wheeze and scattered rhonchi that diminish post cough Cor: RRR, nl S1, S2, w/o murm Abd: BS+, soft, NT Ext: tr LE edema- + joint swelling MCPs' right hand with slight warmth Neuro: alert & oriented x 3, non-focal exam Labs/Tests- as above Impression/Plan: #Acute on Chronic Renal Failure- as above, missed 2 dialysis appointment due to illness and requires urgent dialysis. Plan: Nephrology consult- dialysis today (normal schedule is MWF). #Joint Pain- patient states h/o "gout", however does not recall seeing biochemical development engineer. Right hand symptomatology could represent gout. Plan: Will treat with IV Medrol at present (also for COPD) and observe. Will check records if patient has had rheumatology evaluation in past- will need one if not previously done. #COPD Exacerbation/Bronchitis- patient was being treated with Amoxicillin as OP. Plan: IV Medrol/Aerosol/Zithromax. #Chronic Hypoxic Respiratory failure- on home oxygen. Plan: Continue oxygen. #Paroxysmal Atrial Fibrillation- in NSR. Rate controlled. Plan: Continue Metoprolol/Coumadin. #H/O CHF- reduced EF. No clinical CHF at present. Plan: Continue Imdur/Lasix. #DM2- sugars have been stable. Plan: Will continue Levemir and sliding scale Novolog and follow.
[2016-12-17 11:42] VITALS: BP 142/56
[2016-12-17 16:00] VITALS: BP 142/56
--- NOTE | 2016-12-17 16:22 | Cons- Nephrology ---
General Information and HPI Consulting Request Date of Consult: 12/17/16 Requested By: JONAH POP MD Reason for Consult: Evaluation and management of end-stage renal disease Source of Information: patient, old records History of Present Illness: This 71-year-old gentleman is on dialysis due to his having diabetic nephropathy. He also has a history of congestive heart failure with a reduced ejection fraction. She presents to the emergency room today with intractable joint pain. He was due for dialysis yesterday. Of note, he is been on dialysis since the middle of October and has thus far refused to consider placement of a permanent access. He had stated to the dialysis unit that he wanted to speak to Neri Doshi MD about this. With regards to his joint pain, he was felt to have gout. He is however on colchicine and allopurinol. His phosphorus is 7.5. He denies any fever or chills. He reports being placed on amoxicillin because of a cough and feeling feverish. He only missed his dialysis yesterday, he did get dialyzed on Monday. However, the last time that he was near his try weight, was 12/07/2016. Allergies/Medications Allergies: Coded Allergies: NO KNOWN ALLERGIES (10/04/16) Home Med List: Albuterol Sulfate (Proventil Hfa) 90 MCG HFA.AER.AD 1-2 PUFF INH Q4-6H PRN SHORTNESS OF BREATH (Reported) Albuterol Sulfate (Accuneb) 0.63 MG/3 ML VIAL.NEB 1 AMP INH TID PRN COPD ( Reported) Allopurinol 100 MG TABLET 1 TAB PO DAILY GOUT Aspirin (Ecotrin) 81 MG TABLET.DR 1 TAB PO DAILY HEART (Reported) Budesonide/Formoterol Fumarate (Symbicort 80-4.5 Mcg Inhaler) 80 MCG-4.5 MCG/ ACTUATION HFA.AER.AD 2 PUF INH BID copd Colchicine 0.6 MG TABLET 1 TAB PO DAILY GOUT (Reported) Ferrous Sulfate 325 MG (65 MG IRON) TABLET 1 TAB PO BID SUPPLEMENT (Reported) Folic Acid 1 MG TABLET 1 MG PO DAILY SUPPLEMENT (Reported) Furosemide (Lasix) 40 MG TABLET 2 TAB PO DAILY HEART (Reported) Guaifenesin (Mucinex) 600 MG TAB.ER.12H 1 TAB PO BID MUCOLYTIC Insulin Glargine, Recombinan (Lantus) 100 U/ML SALIMA 12 UNIT SC DAILY DIABETES (Reported) Insulin Lispro (Humalog) 100 UNIT/ML VIAL diabetes (Reported) Blood sugar Insulin dose < 80mg/dl No dose 80-150 mg/dl No dose 151-200mg/dl One unit 201-250mg/dl Two units 251-300mg/dl Three units 301-350mg/dl Four units 351-400mg/dl Six units Above 400mg/dl Eight units and call MD. Isosorbide Mononitrate (Imdur) [address] TAB PO DAILY CAD (Reported) Loratadine (Claritin) 10 MG TABLET 1 TAB PO DAILY NASAL CONGESTION Metoprolol Tartrate (Lopressor) 50 MG TAB 1 TAB PO BID HEART (Reported) Mometasone Furoate (Nasonex) 50 MCG SPRAY.PUMP 2 SPRAY NASB DAILY NASAL CONGESTION Omeprazole 20 MG CAPSULE.DR 1 CAP PO DAILY AC GI (Reported) Prednisone 10 MG TABLET 0 PO DAILY copd TAKE 4 TABS ON 11/29 AND 11/30 TAKE 3 TABS ON 12/01 AND 12/02 TAKE 2 TABS ON 12/03 AND 12/04 TAKE 1 TAB ON 12/05 AND 12/06 AND THEN STOP Simvastatin (Zocor) 20 MG TAB 1 TAB PO 1700 CHOLESTEROL (Reported) Warfarin Sodium (Coumadin) 5 MG TABLET 1 TAB PO DAILY BLOOD THINNER (Reported ) please dose Coumadin as per INR. 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 Psychosocial History Where Do You Live? Home Who Do You Live With? self Services at Home: None Primary Language: Kazakh Smoking Status: Former Smoker Functional Ability ADLs Independent: dressing, eating, toileting, bathing. Ambulation: independent IADLs Independent: shopping, housework, finances, food prep, telephone, transportation , medication admin. Exam & Diagnostic Data Vital Signs and I&O Vital Signs Date Time Temp Pulse Resp B/P Pulse O2 O2 Flow FiO2 Ox Delivery Rate 12/17 1400 Nasal 2.0L Cannula 12/17 1400 99 Nasal 2.0L Cannula 12/17 1359 96 Nasal 2.0L Cannula 12/17 1343 99.8 12/17 1326 71 142/54 12/17 1142 70 20 142/56 96 Nasal 2.0L Cannula 12/17 1104 93 Room Air 12/17 0902 99.8 70 17 157/68 93 Room Air 12/17 0644 93 Room Air 12/17 0628 99.9 72 18 147/65 93 Room Air Intake & Output 12/17 1600 12/17 0400 12/16 1600 12/16 0400 12/15 1600 12/15 040 Intake Total 350 Output Total 270 Balance 80 Intake, Oral 350 Output, Urine 270 Patient 190 lb Weight Physical Exam General Appearance: well developed/nourished, no apparent distress, mild distress, obese Head: atraumatic, periorbital edema Eyes: Right: PERRL, EOMI. Ears, Nose, Throat: external pinnae normal Neck: normal inspection, supple, full range of motion, trachea mid line, no midline tenderness Respiratory: decreased breath sounds, crackles Cardiovascular: regular rate/rhythm Peripheral Pulses: 2+ popliteal (R), 2+ popliteal (L), 1+ tibialis posterior (R), 1+ tibialis posterior (L), 1+ dorsalis pedis (R), 1+ dorsalis pedis (L) Gastrointestinal: normal bowel sounds, non-tender, distention Back: normal range of motion, no vertebral tenderness Extremities: normal inspection, missing distal and mid phalange Neurologic/Psych: no motor/sensory deficits, awake, alert, oriented x 3 Cranial Nerves: normal hearing, normal speech, PERRL Skin: intact, normal color, warm/dry, ichthyotic skin Results Pertinent Lab Results: Laboratory Tests 12/17 654 Chemistry Sodium (137 - 145 mmol/L) 142 Potassium (3.5 - 5.1 mmol/L) 4.7 Chloride (98 - 107 mmol/L) 105 Carbon Dioxide (22 - 30 mmol/L) 23 Anion Gap (5 - 16) 13 BUN (9 - 20 mg/dL) 59 H Creatinine (0.7 - 1.2 mg/dL) 6.1 *H Estimated GFR (>60 ml/min) 9 L BUN/Creatinine Ratio (7 - 25 %) 9.7 Glucose (65 - 99 mg/dL) 121 H Uric Acid (3.5 - 8.5 mg/dL) 6.0 Calcium (8.4 - 10.2 mg/dL) 8.0 L Phosphorus (2.5 - 4.5 mg/dL) 7.5 H Total Bilirubin (0.2 - 1.3 mg/dL) 0.7 AST (17 - 59 U/L) 13 L ALT (21 - 72 U/L) 26 Alkaline Phosphatase (< 127 U/L) 98 Troponin I (<0.11 ng/ml) 0.07 Total Protein (6.3 - 8.2 g/dL) 5.6 L Albumin (3.5 - 5.0 g/dL) 3.2 L Globulin (1.9 - 4.2 gm/dL) 2.4 Albumin/Globulin Ratio (1.1 - 2.2 %) 1.3 Coagulation PT (9.4 - 12.5 SEC) 21.7 H INR (0.90 - 1.17) 2.08 H APTT (25 - 37 SEC) 39 H Hematology CBC w Diff NO MAN DIFF REQ WBC (4.8 - 10.8 /CUMM) 14.4 H RBC (4.70 - 6.10 /CUMM) 3.54 L Hgb (14.0 - 18.0 G/DL) 9.9 L Hct (42 - 52 %) 30.9 L MCV (80.0 - 94.0 FL) 87.4 MCH (27.0 - 31.0 PG) 28.0 RDW (11.5 - 14.5 %) 20.3 H Plt Count (130 - 400 /CUMM) 76 L MPV (7.4 - 10.4 FL) 9.6 Gran % (42.2 - 75.2 %) 87.0 H Lymphocytes % (20.5 - 51.1 %) 5.2 L Monocytes % (1.7 - 9.3 %) 6.7 Eosinophils % (0 - 5 %) 1.0 Basophils % (0.0 - 2.0 %) 0.1 Absolute Granulocytes (1.4 - 6.5 /CUMM) 12.5 H Absolute Lymphocytes (1.2 - 3.4 /CUMM) 0.7 L Absolute Monocytes (0.10 - 0.60 /CUMM) 1.0 H Absolute Eosinophils (0.0 - 0.7 /CUMM) 0.1 Absolute Basophils (0.0 - 0.2 /CUMM) 0 PUBS MCHC (33.0 - 37.0 G/DL) 32.0 L Imaging/Other Studies: PATIENT: DUNCAN ORELLANA PRESENT AGE: 71 PATIENT ACCOUNT NO: [id number] : 45 LOCATION: [facility] ORDERING PHYSICIAN: LILIYA BEYER MD SERVICE DATE: 12/17/16 EXAM TYPE: RAD - XRY-PORTABLE CHEST XRAY EXAMINATION: XR PORTABLE CHEST CLINICAL INFORMATION: Cough. Myalgia. COMPARISON: November 29, 2016 and studies dating back to February 09, 2015 TECHNIQUE: Portable AP view of the chest was obtained. FINDINGS: There is no evidence of acute parenchymal disease, pneumothorax, or pleural effusion. The cardiopericardial silhouette is enlarged. Patient status post median sternotomy and CABG. Pacemaker/defibrillator in place. Right internal jugular dialysis catheter in place with tip within the right atrium. IMPRESSION: No acute disease. DICTATED BY: MIGUEL PAINTER MD DATE/TIME DICTATED:12/17/16755 PUBLIC HEALTH AIDES TEACHER:SANG DATE/TIME TRANSCRIBED:12/17/16755 CONFIDENTIAL, DO NOT COPY WITHOUT APPROPRIATE AUTHORIZATION. <Electronically signed in Other Vendor System> SIGNED BY: MIGUEL PAINTER MD 12/17/16 0802 Assessment/Plan Assessment/Recommendations Assessment: 1. End-stage renal disease. In spite of the fact that his chest x-ray shows no acute disease, I believe he is fluid overloaded. When he departed the dialysis unit on December 14, his weight is 83.3 kg. His estimated dry weight is 80 kg. He has been arriving at the dialysis unit with weights that have varied from 4- 8.7 kg above her stated dry. He was recently hospitalized at with shortness of breath due to an exacerbation of his COPD coupled with fluid overload 2. Joint pain. His uric acid is 6. He is supposed to be taking allopurinol. He is also supposed to be taking colchicine. The other observation is whether or not this represents pseudogout. It is noted that his phosphorus is 7.5. His uric acid was only 6. 3. History of an ischemic cardiomyopathy. 4. Diabetes mellitus 5. Hypertension 5. Monoclonal gammopathy of unknown significance 7. Paroxysmal atrial fibrillation 8. Obstructive sleep apnea apparently non compliant with cpap 9. Hyperphosphatemia. Would begin Renvela 800 mg, 2 capsules with each meal. Recommendations: 1. Hemodialysis this afternoon. He will undergo a 3-1/2 hour treatment with a plan to ultrafilter 3-1/2-4 L. 2. The only binder I see ordered in this gentleman is Tums one with each meal. His phosphorus is 7.5. Would suggest beginning Renvela 800 mg 2 with each meal. 3. His next dialysis will be on Monday.
--- NOTE | 2016-12-17 16:55 | Admission Certification ---
Admission Certification Certification Statement - As attending physician, I certify that at the time of - admission, based on clinical presentation, severity of - symptoms, need for further diagnostic testing and - therapeutic interventions, and risk of adverse outcomes - without in-hospital treatment, in my clinical assessment, - this patient requires an acute hospital stay for a minimum - of two nights or longer. I have also considered psychsocial - factors such as support system, advanced age, financial - issues, cognitive issues, and failed out-patient treatments, - past re-admission history, safety of patient, and lack of - compliance as applicable. Specific rationale supporting this admission is: The patient presented in ED after missing 2 dialysis appointments in worsening renal failure. Missed appointments due to joint pain/?gout flare. Also with COPD exacerbation/bronchitis. Needs admission for acute dialysis. IV Medrol for acute gout/COPD, aerosol. PT evaluation. Rheum consult.
[2016-12-17 23:00] VITALS: BP 159/72
--- NOTE | 2016-12-18 07:51 | PN- Housestaff ---
[address],[place] 12/18/16 0751: Subjective Follow-up For: Generalized joint pains COPD End-stage renal disease with dialysis Subjective: Patient seen and examined at bedside. Pt expresses reservation about his current diet and wonders why is on fluid restriction. Patient reports that his joint pains is significantly better compared to yesterday. However, does not endorse any acute complain of chest pain, palpitation, fever, chills, nausea, vomiting, abdominal pain or dysuria. No acute overnight event reported by nursing staff. Review of Systems Constitutional: Reports: no symptoms. Objective Last 24 Hrs of Vital Signs/I&O Vital Signs Date Time Temp Pulse Resp B/P Pulse O2 O2 Flow FiO2 Ox Delivery Rate 12/18 0935 61 155/66 12/18 0935 61 155/66 12/18 0806 97 Room Air Room Air 12/18 0800 97.4 61 18 155/66 96 Room Air Room Air 12/18 0000 Nasal 2.0L Cannula 12/17 2300 98.3 86 18 159/72 97 Room Air 12/17 2145 93 Room Air 12/17 2119 97 130/56 Intake & Output 12/18 1600 12/18 0800 12/18 0000 Intake Total 800 480 200 Output Total 350 350 Balance 450 130 200 Intake, Oral 800 480 200 Output, Urine 350 350 Patient 80.428 kg 82.1 kg Weight Physical Exam General Appearance: Alert, Oriented X3, Cooperative Assessment/Plan Assessment: This is a 71-year-old gentleman with a past medical history of ESRD and on dialysis on Monday and Monday, just 5 failure with reduced ejection fraction, pacemaker placement and AICD, hypertension COPD not on home oxygen type 1 diabetes, gout atrophy fibrillation on warfarin center with complaints of polyarticular. He does dose a 3-3-xjoa-old history of what seems to be an upper respiratory infection. It is possible that patient might be exhibiting viral induced polyarticular joint pain, however his history of gout suggest an exacerbation of gout, though less likely due to the diffuse nature of the joint pains. Assessment and plan 1. Generalized joint pain: Patient reports markedly symptomatic relief of joint pain today. Most likely due to the Solu-Medrol that he is receiving for his COPD exacerbation. Uric acid levels obtain was unremarkable however not all symptomatic gput patient present with elevated uric levels. Taking into account the recent history of what seems to be a possible upper respiratory infection, patient's joint pain most likely is from viral arthritis which is self-limiting. Will continue patieint home gout medications 2. Thrombocytopenia: Has a history for recent new baseline thrombocytopenia. Very possible that recent infection could have caused a further drop in patients platelet levels.Of note,today's level show an upward trend. Medication induced thrombocytopenia is one of the most common cause however review of patient's medication does not suggest an obvious thrombocytopenia causing drug. 3. End-stage renal disease on dialysis: Nephrology consult placed. Scheduled to receive dialysis today. Continue renal dialysis diet, 2 g sodium and potassium restriction. No Fluid restriction as needed as of now since patient is dialyzed every Monday 4. IDDM: Patient is on Lantus 12 units daily at home. Once patient on Levemir 5 units twice a day and place on NovoLog sliding scale with Accu-Cheks 3 times a day and bedtime. 5. COPD on home oxygen: Continue home nebulizers and inhalers. Will transition to rapid prednisone taper tomorrow. 6. Atrial fibrillation on Coumadin: EKG reviewed, atrial paced ventricle sensed rhythm, rate controlled. INR today is below goal we'll increase warfarin to 6 mg today and recheck INR tomorrow. 7. Congestive heart failure with reduced ejection fraction: Continue metoprolol , Imdur and Lasix at home doses. Problem List: 1. End-stage renal disease on hemodialysis 2. Joint pain Pain Ratin Pain Location: Poly Articular Pain Goal: Pain 4 or less Pain Plan: Continue Solu-Medrol Oxycodone for moderate pain Tomorrow's Labs & Rationales: BEP -dialysis patient CBC INR-Coumadin dose JONAH POP MD 12/18/16 1346: Attending MD Review Statement Attending Statement Attending MD Statement: examined this patient, discuss w/resident/PA/AUTOMATIC STACKER, agreed w/resident/PA/AUTOMATIC STACKER, reviewed EMR data (avail), discussed with nursing, amended to note Attending Assessment/Plan: The patient was seen and discussed with house staff. Joint pain improved on Medrol. Patient not happy with renal diet restrictions. Will remove fluid restriction. Continue current care.
[2016-12-18 08:00] VITALS: BP 155/66
[2016-12-18 08:10] LABS: ABSOLUTE BASOPHIL COUNT 0 /CUMM (0.0-0.2); ABSOLUTE EOSINOPHIL COUNT 0 /CUMM (0.0-0.7); ABSOLUTE GRANULOCYTE CT 7.4 /CUMM (1.4-6.5); ABSOLUTE LYMPH COUNT 0.3 /CUMM (1.2-3.4); ABSOLUTE MONOCYTE COUNT 0.2 /CUMM (0.10-0.60); BASOPHIL % 0 % (0.0-2.0); EOSINOPHIL % 0.1 % (0-5); GRANULOCYTE % 93.1 % (42.2-75.2); HEMATOCRIT 33.7 % (42-52); MEAN CORPUSCULAR HGB 27.8 PG (27.0-31.0); MEAN CORPUSCULAR HGB CONC 31.9 G/DL (33.0-37.0); MEAN PLATELET VOLUME 9.5 FL (7.4-10.4); RBC DISTRIBUTION WIDTH 20.4 % (11.5-14.5); RED BLOOD CELL CT 3.87 /CUMM (4.70-6.10)
[2016-12-18 08:15] LABS: PLATELET COUNT 83 /CUMM (130-400)
[2016-12-18 08:19] LABS: PT 21.6 SEC (9.4-12.5)
[2016-12-18 17:10] VITALS: BP 145/91
[2016-12-18 23:40] VITALS: BP 148/67
[2016-12-19 08:31] VITALS: BP 136/60
[2016-12-19 13:43] LABS: ABSOLUTE BASOPHIL COUNT 0 /CUMM (0.0-0.2); ABSOLUTE EOSINOPHIL COUNT 0 /CUMM (0.0-0.7); ABSOLUTE LYMPH COUNT 0.2 /CUMM (1.2-3.4); ABSOLUTE MONOCYTE COUNT 0.3 /CUMM (0.10-0.60); BASOPHIL % 0 % (0.0-2.0); EOSINOPHIL % 0 % (0-5); GRANULOCYTE % 93.5 % (42.2-75.2); MEAN CORPUSCULAR HGB 27.7 PG (27.0-31.0); MEAN CORPUSCULAR HGB CONC 32.1 G/DL (33.0-37.0); MEAN CORPUSCULAR VOLUME 86.3 FL (80.0-94.0); MEAN PLATELET VOLUME 8.9 FL (7.4-10.4); PLATELET COUNT 93 /CUMM (130-400); RBC DISTRIBUTION WIDTH 19.7 % (11.5-14.5); RED BLOOD CELL CT 3.83 /CUMM (4.70-6.10)
[2016-12-19 13:54] LABS: PT 28.4 SEC (9.4-12.5)
[2016-12-19 14:34] LABS: WHITE BLOOD CELL COUNT 8.5 /CUMM (4.8-10.8)
--- NOTE | 2016-12-19 14:43 | PN- Nephrology ---
Assessment/Plan Assessment: 1. ESRD 2. Diffuse arthralgias/myalgias - much improved 3. Hyperphosphatemia - now on sevelamer 1600 mg by mouth 3 times a day with meals 4. Ischemic cardiomyopathy with CHF, paroxysmal A. fib, AICD 5. COPD Suggestion: 1. Hemodialysis today in progress with 2 L ultrafiltration as tolerated 2. Continue current medication regimen Subjective Subjective: Seen with hemodialysis. Patient is feeling better with much less in the way of joint or muscle pain. He is now on sevelamer 1600 mg by mouth 3 times a day with meals for his hyperphosphatemia. Objective Vital Signs and I&Os Vital Signs Date Time Temp Pulse Resp B/P Pulse O2 O2 Flow FiO2 Ox Delivery Rate 12/19 1016 78 136/60 12/19 0831 97.6 78 20 136/60 96 Room Air 12/19 0814 94 Room Air 12/19 0800 95 Room Air Room Air 12/18 2340 97.6 77 20 148/67 96 Room Air 12/18 2223 77 152/62 12/18 1945 98 Room Air 12/18 1710 97.6 62 18 145/91 98 Intake & Output 12/19 1600 12/19 0400 12/18 1600 12/18 0400 12/17 1600 12/17 0400 Intake Total 583 469 5420 200 350 Output Total 675 550 700 270 Balance 245 -150 580 200 80 Intake, Oral 393 857 7664 200 350 Output, Urine 675 550 700 270 Patient 178 lb 177 lb 181 lb 190 lb Weight Physical Exam: General: Well-developed white male in NAD Skin: No rash or jaundice HEENT: Conjunctivae pink, sclerae anicteric, mucous membranes moist Neck: Without masses or thyromegaly, no supraclavicular or cervical adenopathy Chest: Few scattered rhonchi but otherwise clear bilaterally; infraclavicular AICD on left; right IJ Ilya catheter in place Heart: Regular rate and rhythm without S3 or rub Abdomen: Soft and nontender without palpable masses or organomegaly Extremities: Trace to 1+ edema without cyanosis Neuro: No focal findings, no asterixis or myoclonus Current Medications: Current Medications Sig/Johnna Start time Last Medication Dose Route Stop Time Status Admin Albuterol Sulfate 3 ML BID 12/17 2199 AC 12/19 INH 811 Albuterol Sulfate 2 PUF Q4-6 PRN PRN 02/11 0945 AC INH Albuterol Sulfate 3 ML Q6 PRN 12/17 0945 AC INH Allopurinol 100 MG DAILY 12/17 1000 AC 12/18 PO 0935 Aspirin Buffered 81 MG DAILY 12/17 1000 AC 12/18 PO 0935 Atorvastatin Calcium 10 MG 1700 12/17 1700 AC 12/18 PO 1707 Budesonide/ 2 PUF BID 12/17 1000 AC 12/19 Formoterol Fumarate INH 1017 Epoetin Guzman 6,000 UNIT MoWeFr PRN 12/19 1230 AC IV Epoetin Guzman 6,000 UNIT TuThSa PRN 12/17 1630 DC IV Folic Acid 1 MG DAILY 12/17 1000 AC 12/18 PO 0935 Furosemide 80 MG DAILY 12/17 1000 AC 12/18 PO 0935 Guaifenesin 600 MG BID 12/17 1000 AC 12/19 PO 1016 Insulin Aspart 0 TIDAC 12/17 1200 AC 12/19 SC 1212 Insulin Detemir 5 UNITS BID 12/17 1000 AC SC Isosorbide 60 MG DAILY 12/17 1000 AC 12/18 Mononitrate PO 0935 Loratadine 10 MG DAILY 12/17 1000 AC 12/18 PO 0935 Methylprednisolone 40 MG Q12 12/17 2200 DC 12/18 IV 12/18 2201 2223 Metoprolol Tartrate 50 MG BID 12/17 1000 AC 12/19 PO 1016 Omeprazole 20 MG DAILY AC 12/17 0935 AC 12/19 PO 0638 Patient Medication 1 ED .STK-MED ONE 12/19 1412 [place] Teaching ED 12/19 1413 Prednisone 40 MG ONCE ONE 12/19 0730 DC PO 12/19 0731 Sevelamer Carbonate 1,600 MG WM 12/18 1700 AC 12/19 PO 1212 Warfarin Sodium 6 MG COUMADIN 1700 ONE 12/18 1700 DC 12/18 PO 12/18 1701 1707 Results Pertinent Lab Results: Laboratory Tests 12/19 12/18 1300 0640 Chemistry Sodium (137 - 145 mmol/L) Pending 137 Potassium (3.5 - 5.1 mmol/L) Pending 4.5 Chloride (98 - 107 mmol/L) Pending 98 Carbon Dioxide (22 - 30 mmol/L) Pending 23 Anion Gap (5 - 16) Pending 16 BUN (9 - 20 mg/dL) Pending 44 H Creatinine (0.7 - 1.2 mg/dL) Pending 4.4 H Estimated GFR (>60 ml/min) 13 L BUN/Creatinine Ratio (7 - 25 %) Pending 10.0 Calcium (8.4 - 10.2 mg/dL) 8.6 Phosphorus (2.5 - 4.5 mg/dL) 7.4 H Magnesium (1.6 - 2.3 mg/dL) 1.8 Coagulation PT (9.4 - 12.5 SEC) 28.4 H 21.6 H INR (0.90 - 1.17) 2.73 H 2.07 H Hematology CBC w Diff NO MAN DIFF REQ NO MAN DIFF REQ WBC (4.8 - 10.8 /CUMM) 8.5 8.0 RBC (4.70 - 6.10 /CUMM) 3.83 L 3.87 L Hgb (14.0 - 18.0 G/DL) 10.6 L 10.8 L Hct (42 - 52 %) 33.0 L 33.7 L MCV (80.0 - 94.0 FL) 86.3 87.0 MCH (27.0 - 31.0 PG) 27.7 27.8 RDW (11.5 - 14.5 %) 19.7 H 20.4 H Plt Count (130 - 400 /CUMM) 93 L 83 L MPV (7.4 - 10.4 FL) 8.9 9.5 Gran % (42.2 - 75.2 %) 93.5 H 93.1 H Lymphocytes % (20.5 - 51.1 %) 2.8 L 3.9 L Monocytes % (1.7 - 9.3 %) 3.7 2.9 Eosinophils % (0 - 5 %) 0 0.1 Basophils % (0.0 - 2.0 %) 0 L 0 L Absolute Granulocytes (1.4 - 6.5 /CUMM) 8.0 H 7.4 H Absolute Lymphocytes (1.2 - 3.4 /CUMM) 0.2 L 0.3 L Absolute Monocytes (0.10 - 0.60 /CUMM) 0.3 0.2 Absolute Eosinophils (0.0 - 0.7 /CUMM) 0 0 Absolute Basophils (0.0 - 0.2 /CUMM) 0 0 PUBS MCHC (33.0 - 37.0 G/DL) 32.1 L 31.9 L 12/17 0655 Chemistry Sodium (137 - 145 mmol/L) 142 Potassium (3.5 - 5.1 mmol/L) 4.7 Chloride (98 - 107 mmol/L) 105 Carbon Dioxide (22 - 30 mmol/L) 23 Anion Gap (5 - 16) 13 BUN (9 - 20 mg/dL) 59 H Creatinine (0.7 - 1.2 mg/dL) 6.1 *H Estimated GFR (>60 ml/min) 9 L BUN/Creatinine Ratio (7 - 25 %) 9.7 Glucose (65 - 99 mg/dL) 121 H Uric Acid (3.5 - 8.5 mg/dL) 6.0 Calcium (8.4 - 10.2 mg/dL) 8.0 L Phosphorus (2.5 - 4.5 mg/dL) 7.5 H Total Bilirubin (0.2 - 1.3 mg/dL) 0.7 AST (17 - 59 U/L) 13 L ALT (21 - 72 U/L) 26 Alkaline Phosphatase (< 127 U/L) 98 Troponin I (<0.11 ng/ml) 0.07 Total Protein (6.3 - 8.2 g/dL) 5.6 L Albumin (3.5 - 5.0 g/dL) 3.2 L Globulin (1.9 - 4.2 gm/dL) 2.4 Albumin/Globulin Ratio (1.1 - 2.2 %) 1.3 Coagulation PT (9.4 - 12.5 SEC) 21.7 H INR (0.90 - 1.17) 2.08 H APTT (25 - 37 SEC) 39 H Hematology CBC w Diff NO MAN DIFF REQ WBC (4.8 - 10.8 /CUMM) 14.4 H RBC (4.70 - 6.10 /CUMM) 3.54 L Hgb (14.0 - 18.0 G/DL) 9.9 L Hct (42 - 52 %) 30.9 L MCV (80.0 - 94.0 FL) 87.4 MCH (27.0 - 31.0 PG) 28.0 RDW (11.5 - 14.5 %) 20.3 H Plt Count (130 - 400 /CUMM) 76 L MPV (7.4 - 10.4 FL) 9.6 Gran % (42.2 - 75.2 %) 87.0 H Lymphocytes % (20.5 - 51.1 %) 5.2 L Monocytes % (1.7 - 9.3 %) 6.7 Eosinophils % (0 - 5 %) 1.0 Basophils % (0.0 - 2.0 %) 0.1 Absolute Granulocytes (1.4 - 6.5 /CUMM) 12.5 H Absolute Lymphocytes (1.2 - 3.4 /CUMM) 0.7 L Absolute Monocytes (0.10 - 0.60 /CUMM) 1.0 H Absolute Eosinophils (0.0 - 0.7 /CUMM) 0.1 Absolute Basophils (0.0 - 0.2 /CUMM) 0 PUBS MCHC (33.0 - 37.0 G/DL) 32.0 L
--- NOTE | 2016-12-19 14:56 | PN- Att Addend ---
Attending MD Review Statement Attending Statement Attending MD Statement: examined this patient, discuss w/resident/PA/CAR FRAMER, agreed w/resident/PA/CAR FRAMER, reviewed EMR data (avail), discussed w/nursing, discussed w/ case mgmt Attending Assessment/Plan: Laboratory Tests 12/19/16 1300: Anion Gap 20 H, Estimated GFR 10 L, BUN/Creatinine Ratio 13.4, PT 28.4 H, INR 2.73 H, CBC w Diff NO MAN DIFF REQ, RBC 3.83 L, MCV 86.3, MCH 27.7, RDW 19.7 H, MPV 8.9, Gran % 93.5 H, Lymphocytes % 2.8 L, Monocytes % 3.7, Eosinophils % 0, Basophils % 0 L, Absolute Granulocytes 8.0 H, Absolute Lymphocytes 0.2 L, Absolute Monocytes 0.3, Absolute Eosinophils 0, Absolute Basophils 0, PUBS MCHC 32.1 L Vital Signs Date Time Temp Pulse Resp B/P Pulse O2 O2 Flow FiO2 Ox Delivery Rate 12/19 1016 78 136/60 12/19 0831 97.6 78 20 136/60 96 Room Air 12/19 0814 94 Room Air 12/19 0800 95 Room Air Room Air 12/18 2340 97.6 77 20 148/67 96 Room Air 12/18 2223 77 152/62 12/18 1945 98 Room Air 12/18 1710 97.6 62 18 145/91 98 Pt seen and examined at bedside A/p- ESRD on HD admitted with joint pain and missing 2 dialysis days due to joint pain and weakness. Feeling better now, back on his outpatient regimen of dialysis, going for dialysis today. Will be dced home tomorrow. Joint pain much better now. d/w pt the care plan.
[2016-12-19 17:12] VITALS: BP 140/68
[2016-12-19 23:20] VITALS: BP 138/72
[2016-12-20 08:00] VITALS: BP 166/62
[2016-12-20] MEDS ORDERED: PREDNISONE10 M2 PO (08:31)
[2016-12-20] MEDS ORDERED: RENVELA800 M1 PO ×2 (08:34→08:35)
--- NOTE | 2016-12-20 08:58 | Patient Discharge Instructions ---
Discharge Instructions General Discharge Information You were seen/treated for: COPD JOINT PAIN Special Instructions: Please follow up with your primary care doctor within 1 week Please continue your dialysis sessions every ,Monday, and Monday Please continue taking Prednisone untill all taken You have laso been started on Sevelemer.Please check with dialysis regarding any needed changes on the dose of this medication. Acute Coronary Syndrome Inclusion Criteria At DC or during hospital stay patient has or had the following: ACS DIAGNOSIS No Discharge Core Measures Meds if any: Prescribed or Continued at Discharge Meds if any: NOT Prescribed or Continued at Discharge Congestive Heart Failure Inclusion Criteria At DC or during hospital stay patient has or had the following: CHF DIAGNOSIS No Discharge Core Measures Meds if any: Prescribed or Continued at Discharge Meds if any: NOT Prescribed or Continued at Discharge Cerebrovascular accident Inclusion Criteria At DC or during hospital stay patient has or had the following: CVA/TIA Diagnosis No Discharge Core Measures Meds if any: Prescribed or Continued at Discharge Meds if any: NOT Prescribed or Continued at Discharge Venous thromboembolism Inclusion Criteria VTE Diagnosis No VTE Type NONE VTE Confirmed by (Test) NONE Discharge Core Measures - Per Current guidelines, there needs to be overlap - treatment for the first 5 days of Warfarin therapy. - If discharged on Warfarin prior to 5 days of - overlap therapy, the patient will need to be - assessed for post discharge needs including - *Post discharge parental anticoagulation - *Warfarin and/or parental anticoagulation education - *Follow up date to check INR post discharge At least 5 days overlap therapy as Inpatient No Meds if any: Prescribed or Continued at Discharge Note: Overlap Therapy is Warfarin and Anticoagulant Meds if any: NOT Prescribed or Continued at Discharge
--- NOTE | 2016-12-20 16:13 | PN- Att Addend ---
Attending MD Review Statement Attending Statement Attending MD Statement: examined this patient, discuss w/resident/PA/ACCT EXEC, agreed w/resident/PA/ACCT EXEC, reviewed EMR data (avail), discussed w/nursing Attending Assessment/Plan: Vital Signs Date Time Temp Pulse Resp B/P Pulse O2 O2 Flow FiO2 Ox Delivery Rate 12/20 1013 96 Room Air Room Air 12/20 0800 96 Room Air 12/20 0800 96.8 62 18 166/62 96 Room Air 12/20 0000 Room Air 12/19 2320 97.4 76 20 138/72 96 Room Air 12/19 2057 74 138/70 12/19 1935 98 Room Air 12/19 1713 79 140/68 12/19 1712 97.8 79 20 140/68 94 Room Air 12/19 1706 Room Air Room Air Pt being discharged home today in stable condition. Please see dc summary for more details. pt will f/u his outpatient dialysis regimen and will f/u with nephrology as an outpatient.
--- NOTE | 2016-12-20 17:15 | PN- Housestaff ---
Subjective Follow-up For: Generalized joint pain COPD exacerbation Subjective: Patient is seen and examined at bedside. He is eager for discharge ,status post dialysis yesterday. He reports that his joint pains is significantly decreased and is breathing much better. He offers no other acute complaints. 10 point review of system negative. Review of Systems Constitutional: Reports: no symptoms. Objective Last 24 Hrs of Vital Signs/I&O Vital Signs Date Time Temp Pulse Resp B/P Pulse O2 O2 Flow FiO2 Ox Delivery Rate 12/20 1013 96 Room Air Room Air 12/20 0800 96 Room Air 12/20 0800 96.8 62 18 166/62 96 Room Air 12/20 0000 Room Air 12/19 2320 97.4 76 20 138/72 96 Room Air 12/19 2057 74 138/70 12/19 1935 98 Room Air Intake & Output 12/20 1600 12/20 0800 12/20 0000 Intake Total 480 240 840 Output Total 100 350 Balance 480 140 490 Intake, Oral 480 240 840 Number 1 Bowel Movements Output, Urine 100 350 Patient 81.647 kg 81.193 kg Weight Physical Exam General Appearance: Alert, Oriented X3, Cooperative Assessment/Plan Assessment: This is a 71-year-old gentleman with a past medical history of ESRD and on dialysis on Monday and Monday, just 5 failure with reduced ejection fraction, pacemaker placement and AICD, hypertension COPD not on home oxygen type 1 diabetes, gout atrophy fibrillation on warfarin center with complaints of polyarticular. He does dose a 6-7-liqy-old history of what seems to be an upper respiratory infection. It is possible that patient might be exhibiting viral induced polyarticular joint pain, however his history of gout suggest an exacerbation of gout, though less likely due to the diffuse nature of the joint pains. Assessment and plan 1. Generalized joint pain: Patient reports markedly symptomatic relief of joint pain today. Most likely due to the Solu-Medrol that he is receiving for his COPD exacerbation. Uric acid levels obtain was unremarkable however not all symptomatic gput patient present with elevated uric levels. Taking into account the recent history of what seems to be a possible upper respiratory infection, patient's joint pain most likely is from viral arthritis which is self-limiting. Will continue patieint home gout medications 2. Thrombocytopenia: Has a history for recent new baseline thrombocytopenia. Very possible that recent infection could have caused a further drop in patients platelet levels.Of note,today's level show an upward trend. Medication induced thrombocytopenia is one of the most common cause however review of patient's medication does not suggest an obvious thrombocytopenia causing drug. 3. End-stage renal disease on dialysis: Nephrology consult placed. Scheduled to receive dialysis today. Continue renal dialysis diet, 2 g sodium and potassium restriction. No Fluid restriction as needed as of now since patient is dialyzed every Monday 4. IDDM: Patient is on Lantus 12 units daily at home. Once patient on Levemir 5 units twice a day and place on NovoLog sliding scale with Accu-Cheks 3 times a day and bedtime. 5. COPD exacerbation: Continue home nebulizers and inhalers. She is given prednisone rapid taper prescription on discharge. 6. Atrial fibrillation on Coumadin: EKG reviewed, atrial paced ventricle sensed rhythm, rate controlled. 7. Congestive heart failure with reduced ejection fraction: Continue metoprolol , Imdur and Lasix at home doses. Problem List: 1. COPD exacerbation Pain Ratin Pain Location: Joints Pain Goal: Pain 4 or less Pain Plan: Per pain pathway Tomorrow's Labs & Rationales: None patient scheduled for discharge
--- NOTE | 2016-12-20 19:09 | Discharge Summary ---
See Addendum Visit Information Visit Dates Admission Date: 12/17/16 Discharge Date: 12/20/16 Hospital Course Course Attending Physician: VELIA STREET,DARON Yeager Primary Care Physician: BRITT STREET,YSABEL Burgos Hospital Course: The patient is a 71 yo male with h/o PAF, ESRD on dialysis, gouty arthritis, HTN , CHF with reduced EF/AICD, HL, FREDY and COPD (on chronic 2 L/Min nasal oxygen) who presented on the day of admission in the [place] ED after being unable to get to his last 2 dialysis treatment due to rather diffuse joint discomfort. He has had a 2 day h/o cough productive of yellow/green mucous and a low grade fever of 100. No chills. Has had increased dyspnea. Joint pains have been in hands, knees, and feet. He had been seen by Dr. Eason and was treated with Amoxicillin for his bronchitis. VS on admission: T 99, P 72, R 18, BP 147/65, PO 93% RA Physical Exam: HEENT: eyes- PERRLA, EOMI ro- no lesions, dry mucosa Neck: no JVD/bruits Chest: diminished breath sounds with mild expiratory wheeze and scattered rhonchi that diminish post cough Cor: RRR, nl S1, S2, w/o murm Abd: BS+, soft, NT Ext: tr LE edema- + joint swelling MCPs' right hand with slight warmth Neuro: alert & oriented x 3, non-focal exam Labs were unremarkable. Pt was admitted to general medicine floor for COPD exercabation and diffuse joint pain. Patient was discharged on the 4th day of hospitlaization. The following issues were managed during hospital stay: #Acute on Chronic Renal Failure- Missed 2 dialysis appointment due to illness and required urgent dialysis. Patient received dialysis on the admission day in addition to his normal MWF schedule. Nephrology started patient on sevelemer 1600 mg with meals as his phosphate was found to be elevated >7.5. P #Joint Pain The diffuse joint pain in the setting of recent URI was suggestive of viral arthritis. Acurte worsenig of gout was also in the differential. Patient joint pain significantly improved due to receiveing solumedrol that he was getting for his COPD exercabation. #COPD Exacerbation/Bronchitis- Improved significantly during hospital stay as patinet received TRC/nebulizer treatment in addition to Steroids. Pt was discharged with a rapid prednisone taper. #Chronic Hypoxic Respiratory failure- on home oxygen. Plan: Continue oxygen. #Paroxysmal Atrial Fibrillation- in Was in NSR. Rate controlled. Continued Metoprolol/Coumadin. #H/O CHF- reduced EF. No clinical CHF at admission Continued Imdur/Lasix. #DM2- sugars were stable. Placed patient on Novolog SSC. Pt refused Levemir,citing previous episodes of hypoglycemia. Allergies: Coded Allergies: NO KNOWN ALLERGIES (10/04/16) Pertinent Lab Results: SERVICE DATE: 12/17/16 EXAM TYPE: RAD - XRY-PORTABLE CHEST XRAY EXAMINATION: XR PORTABLE CHEST CLINICAL INFORMATION: Cough. Myalgia. COMPARISON: November 29, 2016 and studies dating back to February 09, 2015 TECHNIQUE: Portable AP view of the chest was obtained. FINDINGS: There is no evidence of acute parenchymal disease, pneumothorax, or pleural effusion. The cardiopericardial silhouette is enlarged. Patient status post median sternotomy and CABG. Pacemaker/defibrillator in place. Right internal jugular dialysis catheter in place with tip within the right atrium. IMPRESSION: No acute disease. Disposition Summary Disposition Principal Diagnosis: COPD Exacerbation Additional Diagnosis: joint pain Discharge Disposition: home health services Discharge Instructions General Discharge Information Code Status: Full Code Patient's Diet: diabetic Patient's Activity: As tolerated Follow-Up Instructions/Appts: Walter is to follow up with his PCP within 1 week Patient is to continue following up with his Manufacturer'S Representative and Dialysis session Medications at Discharge Discharge Medications: Stop taking the following medications: Prednisone (Prednisone) 10 MG TABLET ORAL DAILY Days = 10 Continue taking these medications: Aspirin (Ecotrin) 81 MG TABLET.DR 1 Tablet ORAL DAILY Comments: Last Taken: 03/02/16 Time: 1000 AM Metoprolol Tartrate (Lopressor) 50 MG TAB 1 Tablet ORAL TWICE DAILY Comments: Last Taken: 12/24/15 Time: 1000 AM Simvastatin (Zocor) 20 MG TAB 1 Tablet ORAL 5 PM Comments: LAST TAKEN 03/01/16 AT 1700 Furosemide (Lasix) 40 MG TABLET 2 Tablet ORAL DAILY Qty = 30 Comments: 80MG GIVEN 03/02 AT 10AM Isosorbide Mononitrate (Imdur) [address] Tablet ORAL DAILY Comments: Last Taken: 03/02/16 Time: 10 AM Folic Acid (Folic Acid) 1 MG TABLET 1 Milligram ORAL DAILY Comments: Last Taken: 03/02/16 Time: 1000 AM Ferrous Sulfate (Ferrous Sulfate) 325 MG (65 MG IRON) TABLET 1 Tablet ORAL TWICE DAILY Comments: LAST TAKEN 03/02 AT 10AM Omeprazole (Omeprazole) 20 MG CAPSULE.DR 1 Capsule ORAL DAILY BEFORE BREAKFAST Comments: LAST TAKEN 03/02/16 AT 0600 Albuterol Sulfate (Proventil Hfa) 90 MCG HFA.AER.AD 1-2 PUFF Inhale through mouth Q4-6H as needed for SHORTNESS OF BREATH Comments: NOT GIVEN IN HOSPITAL Insulin Glargine, Recombinan (Lantus) 100 U/ML SALIMA 12 Unit Inject into fatty tissue DAILY Comments: Last Taken: 03/02/16 Time: 1000 AM LEVEMIR GIVEN Insulin Lispro (Humalog) 100 UNIT/ML VIAL Units Inject into fatty tissue 3 TIMES DAILY BEFORE MEALS Days = 30 Instructions: Blood sugar Insulin dose < 80mg/dl No dose 80-150 mg/dl No dose 151-200mg/dl One unit 201-250mg/dl Two units 251-300mg/dl Three units 301-350mg/dl Four units 351-400mg/dl Six units Above 400mg/dl Eight units and call MD. Comments: Last Taken: 12/20/16 Time: Albuterol Sulfate (Accuneb) 0.63 MG/3 ML VIAL.NEB 1 Amp Inhale through mouth THREE TIMES DAILY as needed for COPD Comments: NOT TAKEN IN HOSP Allopurinol (Allopurinol) 100 MG TABLET 1 Tablet ORAL DAILY Qty = 30 Comments: Last Taken: 12/20/16 Time: 10:00 AM Warfarin Sodium (Coumadin) 5 MG TABLET 1 Tablet ORAL DAILY Instructions: please dose Coumadin as per INR. Comments: Last Taken: 12/19/16 Time: 11:00 PM Colchicine (Colchicine) 0.6 MG TABLET 1 Tablet ORAL DAILY Comments: NOT GIVEN IN HOSPTIAL Budesonide/Formoterol Fumarate (Symbicort 80-4.5 Mcg Inhaler) 80 MCG-4.5 MCG/ ACTUATION HFA.AER.AD 2 Puff Inhale through mouth TWICE DAILY Days = 30 Comments: Last Taken: 12/20/16 Time: 10:00 AM Guaifenesin (Mucinex) 600 MG TAB.ER.12H 1 Tablet ORAL TWICE DAILY Qty = 20 Comments: Last Taken: 12/20/16 Time: 10:00 AM Loratadine (Claritin) 10 MG TABLET 1 Tablet ORAL DAILY Days = 30 Comments: Last Taken: 12/20/16 Time: 10:00 AM Mometasone Furoate (Nasonex) 50 MCG SPRAY.PUMP 2 Garita Both sides of nose DAILY Days = 5 Start taking the following new medications: Sevelamer Carbonate (Renvela) 800 MG TABLET 1,600 Milligram ORAL WITH MEALS Qty = 60 No Refills Comments: Last Taken: 12/20/16 Time: Prednisone (Prednisone) 10 MG TABLET 1 Tablet ORAL DIRECTED Qty = 16 No Refills Instructions: TAKE 4 TABLETS TODAY (12/20) TAKE 3 TABLETS FOR 2 DAYS (12/21-12/22) TAKE 2 TABLETS FOR 2 DAYS (12/22-12/23) TAKE 1 TABLET FOR 2 DAYS (12/24-12/25) Copies To: BRITT STREET,YSABEL Burgos
--- NOTE | 2016-12-21 17:50 | Event Note ---
Event Note Event Note: Situation: [facility] nurse called questioning the CMR of the patinet as his medications indicated that last time he took them prior to this admission was around 02/2016. Brief Assesment: Reviewed the CMR again and called patient PCP (office was closed). Pt was then contacted who was at Dialysis. Pt was deemed alert and oriented and was then ask to recall all his medication without being prompted by us. Pt recalled all his medication which matched his CMR. It was ascertained that based on patient account that the discharge CMR was correct.
== END 2016-12-20 12:20 | disposition home health service (06) | DRG 190 ==
LOC: ENRESERVTM → ENRESERVDT → ERH 06:17 → 2NB 07:24 → ERHI 07:24 → 2NB 10:38
PROVIDERS: Emergency Medicine; Internal Medicine Hematology & Oncology; Student in an Organized Health Care Education/Training Program; ADMIT Internal Medicine
PROC: 5A1D60Z (ICD-10-PCS; principal; 2016-12-17)
DX: J44.0 Chronic obstructive pulmonary disease with (acute) lower respiratory infection (principal); N18.6 End stage renal disease; I13.2 Hypertensive heart and chronic kidney disease with heart failure and with stage 5 chronic kidney disease, or end stage renal disease; J96.11 Chronic respiratory failure with hypoxia; D69.6 Thrombocytopenia, unspecified; Z99.81 Dependence on supplemental oxygen; D47.2 Monoclonal gammopathy; I50.22 Chronic systolic (congestive) heart failure; E11.9 Type 2 diabetes mellitus without complications; J20.9 Acute bronchitis, unspecified; J44.1 Chronic obstructive pulmonary disease with (acute) exacerbation; Z99.2 Dependence on renal dialysis; Z79.4 Long term (current) use of insulin; Z79.01 Long term (current) use of anticoagulants; E78.5 Hyperlipidemia, unspecified; I48.0 Paroxysmal atrial fibrillation; G47.33 Obstructive sleep apnea (adult) (pediatric); K21.9 Gastro-esophageal reflux disease without esophagitis; M10.9 Gout, unspecified; Z95.0 Presence of cardiac pacemaker; Z95.810 Presence of automatic (implantable) cardiac defibrillator
CPT/HCPCS: 2NBP; 36415; 82436; 87040; 93005; 93010; 97116-GO; 97161-GP; 97530-GO; J0885; J2920; J2930; J3490

== ENCOUNTER 2016-12-28 13:59 | Inpatient (IN) | payer OTHER, MEDICARE ==
[~2016-12-28] VITALS: Ht 167.6 cm; Wt 82.2 kg
[~2016-12-28 13:59] MED LIST changes: +RENVELA800 M1 PO
--- NOTE | 2016-12-28 14:04 | NUR ---
RESTRICTED BAND PLACED TO L ARM
--- NOTE | 2016-12-28 14:04 | NUR ---
71 Y/O MALE SENT BY VISITING NURSE FOR EVAL OF NOT FEELING WELL, "CRACKLES" IN LUNGS, BODY ACHES, GOUT "FLARE UP" AND COUGH WITH WHITE PHLEGM. PT DUE FOR DIALYSIS TODAY AT 1415 BUT STATES HE FEELS TOO SICK TO GO. AFEBRILE
--- NOTE | 2016-12-28 14:34 | NUR ---
SITTING ON STRETCHER AWAITING EVAL. NO COUGHING OR SOB OBSERVED.
--- NOTE | 2016-12-28 14:39 | NUR ---
PT HAS [facility] FOR DIALYSIS. STATES HE THINKS HIS PROBLEMS ARE DUE TO TOO MUCH DIALYSIS BECAUSE ITS PULLING HIS MEDICINES OUT OF HIS BLOODSTREAM. WET COUGH NOTED DURING CONVERSATION. AFIB RATE 70'S. BLANKETS PROVIDED AND INFORMED WAITING PROVIDED REGARDING EVAL
--- NOTE | 2016-12-28 15:34 | RADIOLOGY REPORT ---
EXAMINATION: XR CHEST CLINICAL INFORMATION: Shortness of breath and cough. COMPARISON: Chest x-ray 12/17/2016. TECHNIQUE: AP and lateral views of the chest were obtained. FINDINGS: AP and lateral views of the chest demonstrate pulmonary hypoinflation and bronchovascular crowding. There is a right jugular dual-lumen catheter, with the catheter tip visualized terminating within the right atrium. Also noted is a left chest wall ICD, with leads visualized in the expected region of the right atrium and right ventricle. There are median sternotomy wires and findings suggestive of prior CABG. The cardiac silhouette is moderately enlarged. There is mild central venous congestion, without overt pulmonary edema. There is no definite airspace consolidation to suggest lobar pneumonia. No pleural effusions or pneumothoraces are identified. Mildly prominent bilateral interstitial lung markings could reflect bronchovascular crowding versus interstitial pulmonary edema. IMPRESSION: Limited exam secondary to pulmonary hypoinflation and patient body habitus. Moderate cardiomegaly with mild central venous congestion. No overt alveolar edema. Mildly prominent interstitial lung markings could reflect interstitial pulmonary edema. No dense airspace consolidation to suggest infection.
--- NOTE | 2016-12-28 15:38 | ED GENERAL ADULT ---
History of Present Illness General Chief Complaint: General Adult Stated Complaint: MULTIPLE COMPLAINTS Source: patient Exam Limitations: no limitations Allergies Coded Allergies: NO KNOWN ALLERGIES (10/04/16) Reconcile Medications Albuterol Sulfate 0.63 MG/3 ML VIAL.NEB 1 Vial INH/SALIMA TID PRN COPD (Reported ) Albuterol Sulfate (Proventil Hfa) 90 MCG HFA.AER.AD 2 PUF INH 4 TIMES/DAY PRN COPD (Reported) Allopurinol 100 MG TABLET 1 TAB PO DAILY GOUT Aspirin (Ecotrin*) 81 MG TABLET.DR 1 TAB PO DAILY Heart Health (Reported) Budesonide/Formoterol Fumarate (Symbicort 80-4.5 Mcg Inhaler) 80 MCG-4.5 MCG/ ACTUATION HFA.AER.AD 2 PUF INH BID copd Calcitriol 1 MCG/ML AMPUL 1 MCG IV MoWeFr WITH DIALYSIS Calcium Carbonate 500 MG CALCIUM (1,250 MG) TABLET 1 TAB PO TIDAC ESRD Colchicine 0.6 MG TABLET 1 TAB PO DAILY GOUT (Reported) Ferrous Sulfate 325 MG (65 MG IRON) TABLET 1 TAB PO BID SUPPLEMENT (Reported) Folic Acid 1 MG TABLET 1 MG PO DAILY SUPPLEMENT (Reported) Furosemide (Lasix) 80 MG TABLET 1 TAB PO DAILY CHF (Reported) Guaifenesin (Mucinex) 600 MG TAB.ER.12H 1 TAB PO BID MUCOLYTIC Insulin Glargine, Recombinan (Lantus) 100 U/ML SALIMA 12 UNIT SC DAILY DIABETES (Reported) Insulin Lispro (Humalog) 100 UNIT/ML VIAL diabetes (Reported) Blood sugar Insulin dose < 80mg/dl No dose 80-150 mg/dl No dose 151-200mg/dl One unit 201-250mg/dl Two units 251-300mg/dl Three units 301-350mg/dl Four units 351-400mg/dl Six units Above 400mg/dl Eight units and call MD. Isosorbide Mononitrate (Isosorbide Mononitrate ER) 60 MG TAB.ER.24H 1 TAB PO DAILY HTN (Reported) Loratadine (Claritin) 10 MG TABLET 1 TAB PO DAILY NASAL CONGESTION Metoprolol Tartrate (Lopressor) 50 MG TABLET 1 TAB PO BID HTN (Reported) Mometasone Furoate (Nasonex) 50 MCG SPRAY.PUMP 2 SPRAY NASB DAILY NASAL CONGESTION Omeprazole 20 MG CAPSULE. 1 CAP PO DAILY GERD (Reported) Prednisone 10 MG TABLET 1 TAB PO DIRECTED COPD TAKE 4 TABLETS TODAY (12/20) TAKE 3 TABLETS FOR 2 DAYS (12/21-12/22) TAKE 2 TABLETS FOR 2 DAYS (12/22-12/23) TAKE 1 TABLET FOR 2 DAYS (12/24-12/25) Sevelamer Carbonate (Renvela) 800 MG TABLET 1,600 MG PO WM DIALYSIS Simvastatin (Zocor*) 20 MG TABLET 1 TAB PO QPM Cholesterol (Reported) Warfarin Sodium (Coumadin) 5 MG TABLET 1 TAB PO DAILY BLOOD THINNER (Reported ) please dose Coumadin as per INR. Triage Note: 71 Y/O MALE SENT BY VISITING NURSE FOR EVAL OF NOT FEELING WELL, "CRACKLES" IN LUNGS, BODY ACHES, GOUT "FLARE UP" AND COUGH WITH WHITE PHLEGM. PT DUE FOR DIALYSIS TODAY AT 1415 BUT STATES HE FEELS TOO SICK TO GO. AFEBRILE Triage Nurses Notes Reviewed? yes HPI: This patient is a 71-year-old male with a past medical history including CAD, CHF, atrial fibrillation who presented to the emergency department today for evaluation of multiple complaints. The patient's visiting nurse suggested that he come into the emergency department yesterday, but the patient refused. He decided to come to the emergency department today. The patient reported that he is due for hemodialysis today, but felt that he was too sick to go. His supervisor maple products Neri Doshi MD. The patient reported that he has been feeling, "hot and cold," with shaking chills. He reported a cough productive of white sputum for, "sometime." He reported some shortness of breath. The patient also reported some increased swelling in his lower extremities and pain in his knees and feet. The patient does have a history of gout and thinks he is having a flare. He typically takes allopurinol. The patient denied any headaches, visual changes, jaw pain, arm pain, chest pain, abdominal pain, nausea, or vomiting. The patient's visiting nurse reported that he has had crackles on his lung examination. (DIANA SMITH,PAYAL) Vital Signs & Intake/Output Vital Signs & Intake/Output Vital Signs Date Time Temp Pulse Resp B/P Pulse O2 O2 Flow FiO2 Ox Delivery Rate 12/30 1117 95 Room Air Room Air 12/30 0834 98.0 60 17 132/56 97 Room Air 12/30 0554 95 Room Air 12/30 0000 94 Room Air 12/29 2200 97.4 65 16 138/63 12/29 2149 65 138/63 12/29 2148 65 138/63 12/29 1611 97.4 70 20 128/72 94 ED Intake and Output 12/30 0000 12/29 1200 Intake Total 1200 120 Output Total 4675 175 Balance -3475 -55 Intake, Oral 1200 120 Number 1 Bowel Movements Output, Other 4000 Output, Urine 675 175 Patient 177 lb Weight Past History Travel History Traveled to [place] past 21 day No Medical History Any Pertinent Medical History? 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 Hx Contributory? No (PAYAL ORTIZ PA-C) Review of Systems Review of Systems Constitutional: Reports: see HPI. EENTM: Reports: no symptoms. Respiratory: Reports: see HPI. Cardiovascular: Reports: see HPI. GI: Reports: no symptoms. Genitourinary: Reports: no symptoms. Musculoskeletal: Reports: see HPI. Skin: Reports: no symptoms. Neurological/Psychological: Reports: no symptoms. All Other Systems: Reviewed and Negative (PAYAL ORTIZ PA-C) Physical Exam Physical Exam General Appearance: well developed/nourished, alert, awake, mild distress Comments: Well-developed well-nourished person in mild distress HEENT: Head normocephalic/atraumatic, moist mucous membranes Pupils equally round and reactive to light. Neck: Supple, no lymphadenopathy Back: Normal inspection. No midline tenderness Cardiovascular: Irregularly irregular with no murmurs. No JVD or carotid bruits Respiratory: Quiet respiration. Breath sounds clear to auscultation bilaterally with no wheezes, rales, rhonchi Abdomen: Soft, nontender and nondistended Extremity: 2+ pitting edema to bilateral lower extremities. Diffuse tenderness bilateral lower extremities. Negative Homans sign bilaterally Normal and equal pulses. Neuro: Alert oriented x3, cranial nerves II through XII grossly intact. Skin: No appreciable rash on exposed skin, skin is warm and dry. Psych: Mood and affect is normal Core Measures ACS in differential dx? Yes CVA/TIA Diagnosis: No Severe Sepsis Present: No Septic Shock Present: No (DIANA SMITH,PAYAL) Progress Differential Diagnoses I considered the following diagnoses in my evaluation of the patient: [Acute kidney injury, influenza, viral syndrome, CHF, COPD, gout, ACS, PE, pneumonia] Diagnostic Imaging: Viewed by Me: Radiology Read. Discussed w/RAD: Radiology Read. CXR Impression: PATIENT: DUNCAN ORELLANA PRESENT AGE : 71 PATIENT ACCOUNT NO: [id number] : 45 LOCATION: [facility] ORDERING PHYSICIAN: PAYAL ORTIZ PA-C SERVICE DATE: 12/28/163452 EXAM TYPE: RAD - XRY-CHEST XRAY, PA AND LATERAL EXAMINATION: XR CHEST CLINICAL INFORMATION: Shortness of breath and cough. COMPARISON: Chest x-ray 12/17/2016. TECHNIQUE: AP and lateral views of the chest were obtained. FINDINGS: AP and lateral views of the chest demonstrate pulmonary hypoinflation and bronchovascular crowding. There is a right jugular dual-lumen catheter, with the catheter tip visualized terminating within the right atrium. Also noted is a left chest wall ICD, with leads visualized in the expected region of the right atrium and right ventricle. There are median sternotomy wires and findings suggestive of prior CABG. The cardiac silhouette is moderately enlarged. There is mild central venous congestion, without overt pulmonary edema. There is no definite airspace consolidation to suggest lobar pneumonia. No pleural effusions or pneumothoraces are identified. Mildly prominent bilateral interstitial lung markings could reflect bronchovascular crowding versus interstitial pulmonary edema. IMPRESSION : Limited exam secondary to pulmonary hypoinflation and patient body habitus. Moderate cardiomegaly with mild central venous congestion. No overt alveolar edema. Mildly prominent interstitial lung markings could reflect interstitial pulmonary edema. No dense airspace consolidation to suggest infection. DICTATED BY: ANGELO MOSLEY MD DATE/TIME DICTATED:12/28/161528 PRODUCT PICKER: SANG DATE/TIME TRANSCRIBED:12/28/161528 CONFIDENTIAL, DO NOT COPY WITHOUT APPROPRIATE AUTHORIZATION. <Electronically signed in Other Vendor System> SIGNED BY: MELANY STREET,ANGELO 12/28/16 1534 Initial ED EKG: AFIB, 78 bpm (DIANA SMITH,PAYAL) Plan of Care: Orders Procedure Date/time Status PROTHROMBIN TIME 12/31 06 Active MAGNESIUM 12/31 06 Active BASIC ELECTROLYTES PLUS BUN&CR 12/31 06 Active PROTHROMBIN TIME 12/30 1254 Complete MAGNESIUM 12/30 06 Complete GLUCOSE 12/30 06 Complete CBC WITHOUT DIFFERENTIAL 12/30 06 Complete BASIC ELECTROLYTES PLUS BUN&CR 12/30 06 Complete Lab Add-on Test 12/30 UNK Active Anticipated Discharge 12/30 UNK Active Weight 12/29 220 Active AEROSOL CHG 12/29 UNK Complete Current Medications Sig/Johnna Start time Last Medication Dose Stop Time Status Admin Warfarin Sodium 5 MG COUMADIN 1700 ONE 12/30 1700 CAN (Coumadin) 12/30 1701 Warfarin Sodium 5 MG COUMADIN 1700 ONE 12/30 1700 AC (Coumadin) 12/30 1701 Calcitriol 1 MCG MoWeFr PRN 12/30 1515 AC (Calcijex Inj. (1MCG/ Ml)) Epoetin Guzman 6,000 UNIT MoWeFr PRN 12/30 1515 AC (Epogen Inj 3000 (DIALYSIS PATIENTS) Calcitriol 1 MCG MoWeFr 12/30 0800 CAN (Calcijex Inj. (1MCG/ Ml)) Epoetin Guzman 6,000 UNIT MoWeFr 12/30 0800 CAN (Epogen Inj 3000 (DIALYSIS PATIENTS) Albuterol Sulfate 2 PUF 4 TIMES/DAY PRN 12/28 2030 AC (Ventolin) Acetaminophen 1,000 MG Q6P PRN 12/28 1830 AC (Ofirmev) Laboratory Tests 12/30/16 1328: PT 23.6 H, INR 2.27 H 12/30/16 0620: Anion Gap 14, Estimated GFR 18 L, BUN/Creatinine Ratio 13.2, Glucose 529 *H, Magnesium 2.0, CBC w Diff NO MAN DIFF REQ, RBC 3.69 L, MCV 88.3, MCH 28.2, RDW 20.5 H, MPV 9.3, Gran % 89.8 H, Lymphocytes % 4.8 L, Monocytes % 5.3, Eosinophils % 0.1, Basophils % 0 L, Absolute Granulocytes 6.9 H, Absolute Lymphocytes 0.4 L, Absolute Monocytes 0.4, Absolute Eosinophils 0, Absolute Basophils 0, PUBS MCHC 31.9 L Departure Departure Disposition: STILL A PATIENT Condition: Stable Clinical Impression Primary Impression: CHF exacerbation Qualifiers: Congestive heart failure type: unspecified congestive heart failure type Qualified Code: I50.9 - Heart failure, unspecified Referrals: BRITT STREET,YSABEL Burgos (PCP/Family) Departure Forms: Customer Survey General Discharge Information Prescriptions: Current Visit Scripts Calcitriol 1 MCG IV MoWeFr 28 Days Calcium Carbonate 1 TAB PO TIDAC 60 Days Admission Note Spoke With: YOGI STREET,LYUBOV Documentation of Exam: Documentation of any treatments & extenuating circumstances including Concerns Regarding Discharge (functional status, medication knowledge or non-compliance, living conditions, etc.) that warrant an admission rather than observation: [ This patient is a 71 year old male with a past medical history including CHF, AFIB, CAB who presented for evaluation of shortness of breath and cough. BNP above 20,000. Bilateral lower extremity edema. Shaking chills. WBC count 12.9 He should be admitted for diuresis, cardiology consult, echocardiogram, trend labs, follow-up blood cultures, PT evaluation, dialysis, and close monitoring. Premature discharge could prove medically harmful.] (PAYAL ORTIZ PA-C) PA/YARN TESTER Co-Sign Statement Statement: ED Attending supervision documentation- [X] I saw and evaluated the patient. I have also reviewed all the pertinent lab results and diagnostic results. I agree with the findings and the plan of care as documented in the PA's/YARN TESTER's documentation. [X] I have reviewed the ED Record and agree with the PA's/YARN TESTER's documentation. [] Additions or exceptions (if any) to the PAs/YARN TESTER's note and plan are summarized below: [] (MAXI STREET,LINDEN Ohara) Critical Care Note Critical Care Note Critical Care Time: non-applicable (PAYAL ORTIZ PA-C)
--- NOTE | 2016-12-28 15:42 | NUR ---
PT HAS POOR AND LIMITED VENOUS ACCESS, MULTIPLE AREAS OF ECCHYMOSIS TO RFA NOTED. PT REFUSING BLOODWORK OR IV TO HAND OR AC, DIRECTING THIS RN TO WHERE SHE IS ALLOWED TO DRAW, EVEN THOUGH THERE IS NO VENOUS ACCESS IN THAT AREA. 22G IV EVENTUALLY ESTABLISHED, MINIMAL BLOOD RETURN. SST, LAV, ONEAL, BLUE SENT TO LAB. FLU SWAB OBTAINED AND SENT. UNABLE TO OBTAIN BLOOD CULTURES WITH THIS DRAW.
[2016-12-28 15:46] LABS: ABSOLUTE BASOPHIL COUNT 0.1 /CUMM (0.0-0.2); ABSOLUTE EOSINOPHIL COUNT 0.2 /CUMM (0.0-0.7); ABSOLUTE GRANULOCYTE CT 10.9 /CUMM (1.4-6.5); ABSOLUTE LYMPH COUNT 0.9 /CUMM (1.2-3.4); ABSOLUTE MONOCYTE COUNT 0.9 /CUMM (0.10-0.60); BASOPHIL % 0.5 % (0.0-2.0); EOSINOPHIL % 1.3 % (0-5); GRANULOCYTE % 84.4 % (42.2-75.2); MEAN CORPUSCULAR HGB CONC 32.2 G/DL (33.0-37.0); MEAN CORPUSCULAR VOLUME 87.2 FL (80.0-94.0); MEAN PLATELET VOLUME 8.4 FL (7.4-10.4); PLATELET COUNT 140 /CUMM (130-400); RBC DISTRIBUTION WIDTH 21.1 % (11.5-14.5); RED BLOOD CELL CT 4.13 /CUMM (4.70-6.10); WHITE BLOOD CELL COUNT 12.9 /CUMM (4.8-10.8)
--- NOTE | 2016-12-28 16:08 | NUR ---
MEDICATED WITH TRAMADOL PER eMAR
[2016-12-28 16:19] LABS: PT 14.8 SEC (9.4-12.5); PTT 34 SEC (25-37)
--- NOTE | 2016-12-28 16:23 | NUR ---
CRITICAL TEST RESULTS [id number] DUNCAN ORELLANA TESTS AND RESULTS: POTASSIUM 6.0 Results received and read back by: LEI JEONG Results received date and time: 12/28/16 1624 The following provider was notified of the results, and read the results back: CARLA ORTIZ Notified date and time: 12/28/16 at 1624
--- NOTE | 2016-12-28 17:51 | NUR ---
PT REQUESTING MORE PAIN MEDS. GROANING IN ROOM
--- NOTE | 2016-12-28 17:59 | NUR ---
THIS RN TO ROOM DUE TO PT ANGER REGARDING NEGLECT BECAUSE HE IS IN PAIN AND THIS RN HAS BEEN WITH OTHER PATIENTS. PT IS ANGRY THAT THIS NURSE IS PUNISHING HIM BY NOT GIVING HIM PAIN MEDICINE DESPITE NOTIFYING HIM OF INABILITY TO MEDICATE WITHOUT AND ORDER AND THE HOUSE STAFF AND ER PROVIDER IS AWARE OF PAIN CONCERN.
--- NOTE | 2016-12-28 18:04 | NUR ---
HOUSE STAFF AT BEDSIDE
--- NOTE | 2016-12-28 18:06 | History & Physical ---
ABIODUN RAHMAN 12/28/16 1805: General Information and HPI MD Statement: I have seen and personally examined DUNACN ORELLANA and documented this H&P. The patient is a 71 year old M who presented with a patient stated chief complaint of cough, fever, shaking chills. Source of Information: patient, old records History of Present Illness: Mr Orellana is a 71-year-old man was known to be in his usual state of health two days ago. He has a PMH of hypertension, hyperlipidemia, HFrEF(AICD), COPD (2 L oxygen), ESRD, FREDY, DM, gout, Afib(on coumadin), pulm HTN , multiple hospital admissions, w/ recent admission to [place] for AECOPD(one wk ago with similar complaints). He came in to [facility] with a chief concern of body aches, productive cough, fever associated with chills 2 days. As per the patient, he had worsening body aches, joint pains 2 days, with involvement of knee joints, restriction in mobility due to joint pains. Also was concerned about worsening cough, continuous, associated with white sputum, 2 days. Fever (feeling hot), occasional, associated with chills, temperature not recorded. No chest pain, palpitations, nausea/vomiting or diarrhea, sick contacts. No change in oxygen requirements recently. Notified by the nurse at the dialysis center, that he had wheezing on examination at the last hemodialysis session. Could not attend hemodialysis session this a.m. No dysuria, or pyuria. Sees Dr. Perry (cable armorer operator), Neri Doshi MD (road gang supervisor), Rahul Crandall MD (medical assistant dermatology). Allergies/Medications Allergies: Coded Allergies: NO KNOWN ALLERGIES (10/04/16) Past History Travel History Traveled to [place] past 21 day No Medical History Neurological: NONE Cardiovascular: AFIB (paroxysmal), CAD, cardiomyopathy, hypertension, hyperlipidemia, systolic CHF, PACEMAKER/DEFIBRILLATOR Respiratory: COPD, obstructive sleep apnea (not using CPAP), NON COMPLIANT W/ CPAP Gastrointestinal: GERD Hepatic: NONE Renal: ESRD on HD Musculoskeletal: gout, CELLULITIS Psychiatric: NONE Endocrine: diabetes Blood Disorders: anemia, monoclonal gammopathy of unknown significance Cancer(s): NONE 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 Psychosocial History Who Do You Live With? self Services at Home: None Primary Language: Turkish Functional Ability ADLs Independent: dressing, eating, toileting, bathing. Ambulation: independent IADLs Independent: shopping, housework, finances, food prep, telephone, transportation , medication admin. Review of Systems Review of Systems Constitutional: Reports: chills, fever. EENTM: Denies: visual changes. Cardiovascular: Denies: chest pain. Respiratory: Reports: cough. Denies: hemoptysis, short of breath, sputum production. GI: Denies: diarrhea. Genitourinary: Denies: dysuria, frequency, hematuria. Musculoskeletal: Reports: joint pain, joint swelling. Skin: Denies: change in skin color. Neurological/Psychological: Denies: anxiety. Hematologic/Endocrine: Denies: bruising. Exam & Diagnostic Data Last 24 Hrs of Vital Signs/I&O Vital Signs Date Time Temp Pulse Resp B/P Pulse O2 O2 Flow FiO2 Ox Delivery Rate 12/28 1944 Room Air 12/28 1938 97.5 80 18 130/60 95 Room Air 12/28 1840 97.2 78 16 168/88 99 Room Air 12/28 1544 96 Room Air 12/28 1530 98.2 12/28 1404 97.9 82 18 175/75 95 Room Air Intake & Output 12/28 1600 12/28 0800 12/28 0000 Intake Total Output Total Balance Patient 187 lb Weight Physical Exam General Appearance Alert, Oriented X3, Cooperative, No Acute Distress Skin No Rashes, No Significant Lesion, tiburcio-cath in place on the left side of the chest. No erythema or tenderness HEENT Atraumatic, PERRLA, EOMI Neck Supple, No JVD, No thryomegaly Lymphatic Cervical nl Cardiovascular Regular Rate, Normal S1, Normal S2 Lungs bilateral wheezes, crackles b/l Abdomen Normal Bowel Sounds, Soft, No Tenderness Neurological Normal Speech, Strength at 5/5 X4 Ext, Normal Tone, Sensation Intact, Cranial Nerves 3-12 NL, Reflexes 2+ Extremities No Clubbing, No Cyanosis, Normal Pulses, pedal edema 1+, swelling of b/l knees associated w/ tenderness Vascular Pulses Symmetrical Body Front and Back (Adult) 1) phill knee swelling 2) tiburcio cath Diagnostic Data EKG Results Paced rhythm, t wave changes unchanged from before. CXR Results RAD - XRY-CHEST XRAY, PA AND LATERAL Limited exam secondary to pulmonary hypoinflation and patient body habitus. Moderate cardiomegaly with mild central venous congestion. No overt alveolar edema. Mildly prominent interstitial lung markings could reflect interstitial pulmonary edema. No dense airspace consolidation to suggest infection. Assessment/Plan Assessment: He is an older man with a past history of coronary artery disease, CHF status post pacemaker, ESRD (hemodialysis Monday), gout, COPD (2 L) is being evaluated for cough, fever and pain bilateral lower extremities. At the time of admission, temperature 97.9, pulse rate 82, respiratory rate 18, blood pressure 175/75 (improved to 130/60), lab findings indicated leukocytosis of UBC 12.9 (mild granulocytosis), hemoglobin 11.6 (baseline 9.5), MCV 97, electrolytes sodium 140, serum potassium elevated at 6.0, BUN 60, serum creatinine 4.4 (variable due to hemodialysis). INR 1.41. Chest x-ray revealed moderate cardiomegaly with mild central venous congestion. Mildly prominent interstitial lung markings could reflect interstitial pulmonary edema. Admission diagnosis: #1. Volume overload secondary to ESRD #2 COPD exacerbation Below is the problem list and plan: #1. Cough, Fever- Likely differentials AECOPD, volume overload. No recorded temperature, and continue to monitor for leucocytosis and fever. Check UA to r/o any UTI. Intravenous furosemide, and continue by mouth furosemide starting in the a.m. Nephrology consult, for arranging hemodialysis in the a.m. Intravenous steroids, and prednisone taper for COPD. To rule out any cardiac cause contributing to pulmonary edema. Follow at least one other set of cardiac enzymes. #2 bilateral knee pain-patient has a history of gout, and end-stage renal disease crystal-induced arthropathy highly in the differential. For now, knee x -ray to rule out any fluid. Restart colchicine, allopurinol and pain medications as needed. #3 end-stage renal disease-likely contributing to elevated potassium. Calcium gluconate, intravenous glucose and his insulin administered in the ED. Kayexalate 1. Recheck potassium. #4 diabetes-start the patient on home dose of long-acting insulin and NovoLog sliding scale. Titrate as per insulin requirements in the next 24 hours. Contact endocrinology. #5 atrial fibrillation-INR subtherapeutic 1.4. Dose warfarin. Continue to monitor closely. #6 DVT prophylaxis-warfarin #7 anemia-likely due to anemia of chronic disease. Colonoscopy done recently. Hemoglobin 11.6. Discuss with nephrology about monitoring hemoglobin closely to keep it in between 10-11. Hold Epo/venofer for now. #7 diet-renal dialysis diet As Ranked By This Provider Problem List: 1. CHF exacerbation Qualifiers Congestive heart failure type: unspecified congestive heart failure type Qualified Code: I50.9 - Heart failure, unspecified 2. Joint pain Core Measures/Miscellaneous Acute Coronary Syndrome ACS Diagnosis: No Cerebrovascular Accident CVA/TIA Diagnosis: No Congestive Heart Failure CHF Diagnosis: No Venous Thromboembolism VTE Risk Factors: Age > 40 VTE Prophylaxis Ordered Inpt: [facility] d/t: No contraindications No VTE Pharm Prophylaxis d/t: No contraindications VTE Diagnosis: No VTE Type: NONE VTE Confirmed by (Test): NONE Severe Sepsis Severe Sepsis Present: No Septic Shock Septic Shock Present: No Miscellaneous Documentation Attending Case Discussed With: YOGI STREET,LYUBOV Primary Care Physician: YSABEL DE LA TORRE MD. Patient sees these Specialists Neri Doshi MD, Dr. Perry Level of Patient Care: General Medicine YANETH ROLDAN 12/28/16 1821: General Information and HPI Allergies/Medications Home Med list Albuterol Sulfate 0.63 MG/3 ML VIAL.NEB 1 Vial INH/SALIMA TID PRN COPD (Reported ) Albuterol Sulfate (Proventil Hfa) 90 MCG HFA.AER.AD 2 PUF INH 4 TIMES/DAY PRN COPD (Reported) Allopurinol 100 MG TABLET 1 TAB PO DAILY GOUT Aspirin (Ecotrin*) 81 MG TABLET.DR 1 TAB PO DAILY Heart Health (Reported) Budesonide/Formoterol Fumarate (Symbicort 80-4.5 Mcg Inhaler) 80 MCG-4.5 MCG/ ACTUATION HFA.AER.AD 2 PUF INH BID copd Colchicine 0.6 MG TABLET 1 TAB PO DAILY GOUT (Reported) Ferrous Sulfate 325 MG (65 MG IRON) TABLET 1 TAB PO BID SUPPLEMENT (Reported) Folic Acid 1 MG TABLET 1 MG PO DAILY SUPPLEMENT (Reported) Furosemide (Lasix) 80 MG TABLET 1 TAB PO DAILY CHF (Reported) Guaifenesin (Mucinex) 600 MG TAB.ER.12H 1 TAB PO BID MUCOLYTIC Insulin Glargine, Recombinan (Lantus) 100 U/ML SALIMA 12 UNIT SC DAILY DIABETES (Reported) Insulin Lispro (Humalog) 100 UNIT/ML VIAL diabetes (Reported) Blood sugar Insulin dose < 80mg/dl No dose 80-150 mg/dl No dose 151-200mg/dl One unit 201-250mg/dl Two units 251-300mg/dl Three units 301-350mg/dl Four units 351-400mg/dl Six units Above 400mg/dl Eight units and call MD. Isosorbide Mononitrate (Isosorbide Mononitrate ER) 60 MG TAB.ER.24H 1 TAB PO DAILY HTN (Reported) Loratadine (Claritin) 10 MG TABLET 1 TAB PO DAILY NASAL CONGESTION Metoprolol Tartrate (Lopressor) 50 MG TABLET 1 TAB PO BID HTN (Reported) Mometasone Furoate (Nasonex) 50 MCG SPRAY.PUMP 2 SPRAY NASB DAILY NASAL CONGESTION Omeprazole 20 MG CAPSULE.DR 1 CAP PO DAILY GERD (Reported) Prednisone 10 MG TABLET 1 TAB PO DIRECTED COPD TAKE 4 TABLETS TODAY (12/20) TAKE 3 TABLETS FOR 2 DAYS (12/21-12/22) TAKE 2 TABLETS FOR 2 DAYS (12/22-12/23) TAKE 1 TABLET FOR 2 DAYS (12/24-12/25) Sevelamer Carbonate (Renvela) 800 MG TABLET 1,600 MG PO WM DIALYSIS Simvastatin (Zocor*) 20 MG TABLET 1 TAB PO QPM Cholesterol (Reported) Warfarin Sodium (Coumadin) 5 MG TABLET 1 TAB PO DAILY BLOOD THINNER (Reported ) please dose Coumadin as per INR. Resident Review Statement Resident Statement: examined this patient, discussed with general internist, agreed with general internist, reviewed EMR data (avail) Other Findings: Mr. Orellana is a 71-year-old gentleman with past medical history of atrial fibrillation on Coumadin, end-stage renal disease on dialysis Monday, congestive heart failure with reduced ejection fraction, pacemaker/AICD, hypertension, hyperlipidemia, COPD on 2 L home oxygen, IDDM and gout who presents to [facility] ED today with chief complaint of feeling weak, fever and generalized joint pain that has been progressively worsening for the past 2 days. Patient reports that for the past few days he has been feeling not himself and blaming to the weather condition with cloudy but also has been experiencing joint pain especially of the knees and ankle joints bilaterally. Patient this morning was feeling very bad and could not even go for his dialysis appointment. He has oxygen 2 L at home which he uses intermittently he has not required to use oxygen in buildup to his ED visit. Patient reports that his nurse has told him he is having a lot of wheezes but he has been using his inhaler and nebulizations appropriately. Patient reports and/or fever low grade which he has not measured and experiencing chills. He has noted that is coughing more than usual and sometimes producing whitish phlegm. He denies any sick contact. On arrival vitals afebrile 97.9 heart rate of 82 blood pressure 170/75 and saturating 95% on room air Physical examination A left and oriented to time place and person, active and not in acute distress HEENT: No distended vessels RS: Bilateral wheezing and crackles Abdomen: Obese no palpable mass normal bowel sounds Extremities: Pitting edema to below the knee, knees are very warm and tender especially on movement. Labs hyperkalemia 6.0 with anion gap of 17, GFR of 13 magnesium of 1.5 Imaging: CXR: Mildly prominent interstitial lung markings could reflect interstitial pulmonary edema. No dense airspace consolidation to suggest infection. Assessment and plan 71 years old with end-stage renal disease presenting with joint pain especially knee and ankles fever and chills for the past 3 days and unable to go for dialysis today. On presentation patient is wheezing and has bilateral basilar crackles with normal JVD and x-ray suggestive of pulmonary congestion. Problem list Hyperkalemia COPD exacerbation End-stage renal disease with fluid overload Gouty arthritis Diabetes mellitus Will admit the patient to general medicine floor. Patient received cardiac late 120 mg and also calcium gluconate insulin and glucose to help with potassium level, repeat potassium level at 9 PM, will recheck troponin and EKG as well as 9 PM, bilateral knee x-rays, nephro consult and plan for dialysis in a.m., patient refuses taking insulin will check HbA1c and keep on Levemir 12 units and medium sliding scale, TRC nebs, continue all nebulizations and inhalers from home, Solu-Medrol 125 mg stat and then from tomorrow oral prednisone starting with 40 with rapid taper, pulmonary consult, patient is full code and will be on mild/moderate and severe pain pathway. [address], [facility] 12/28/162008: Attending MD Review Statement Attending Statement Attending MD Statement: examined this patient, discuss w/resident/PA/STORAGE SOLUTIONS ARCHITECT, agreed w/resident/PA/STORAGE SOLUTIONS ARCHITECT Attending Assessment/Plan: 71 yo morbidly obese M with h/o CAD, chronic systolic CHF, FREDY not on CPAP, HTN, COPD on PRN 2L O2, severe pulmonary hypertension, MGUS (IgG kappa), T2DM, gout, ESRD on dialysis (M/W/F), chronic anemia, Pafib on coumadin, s/p PPM-AICD, recently admitted to [place] (12/17-12/20) for COPDE on prednisone taper that he completed 1 day prior, is here for c/o subjective fever/chills, severe b/l knee pains, weakness and inability to walk. He missed his dialysis session today because of above symptoms. C/o cough productive of white sputum with exertional dyspnea. Denies chest pain, palpitations, nausea, vomiting or lightheadedness. His visiting nurse asked him to get evaluated in ER 1 day prior, but patient refused to do so. He has a h/o gout and has not taken colchicine and allopurinol for few days now as he ran out of the medications. VSS. Chest b/l diffuse crackles and expiratory wheeze+. Tiburcio cath site C/D/I. Extremities: b/l chronic venous stasis changes with 1-2+ pitting edema. Right knee with prepatellar swelling, no effusion, erythema and warmth+, Left knee no effusion but slightly warm, both are extremely tender to touch. Labs: WBC 12.9, INR 1.41, K 6.0, bicarb 19, AG 17, BUN 60, creat 4.4, Mag 1.5, trop 0.07, proBNP 89538, CXR: moderate cardiomegaly with mild central venous congestion. Mildly prominent interstitial lung markings interstitial pulmonary edema. Echo (2016) : EF 50-55%, moderate aortic stenosis with JUJU of 1.1 sq.cm, pulm HTN. EKG: Paced. Rapid flu test negative. 1. Fluid overload in this patient with chronic systolic CHF, pulmonary hypertension and ESRD who missed his dialysis session. Mild COPD exacerbation. No evidence of pneumonia. GM admit, TRC nebs, daily weights, strict I/O's, IV lasix 40 today, resume 80 PO from AM. Nephro consult for dialysis in AM. IV steroids with rapid prednisone taper, no need for antibiotics. Pulm consult in AM. 2. Hyperkalemia in the setting of renal failure. Will give kayexalate, insulin- dextrose and calcium gluconate. Recheck potassium levels, EKG and troponin. 3. Bilateral knee pain (R>L). Patient has h/o gout and has not taken colchicine or allopurinol for few days. Will obtain xray of both knee joints. He is receiving steroids, will check uric acid and resume colchicine with allopurinol while monitoring his renal functions. 4. T2DM. Patient reports he has not been on basal insulin since Oct 2016. However, all his discharge CMRs document basal and bolus insulin. Last A1c in Oct [address] on accucheks, hold off basal insulin (levemir) and keep only on bolus (novolog SS). Obtain Endo consult. 5. Subtherapeutic INR on coumadin for Afib. Dose coumadin @ 7.5 today, recheck INR in AM. 6. Leukocytosis likely reactive in the setting of steroid use. DVT ppx coumadin. Full code. Update at 10 PM: Follow up potassium was 4.5, however his troponin came back mildly elevated at 0.11 likely demand ischemia. Patient is being transferred to Telemetry for monitoring for 24 hours. Consult Cardio, trend troponin. Also, knee Xrays reveal mild bilateral prepatellar soft tissue swelling, no fracture or dislocation, no suprapatellar knee joint effusion. Minimal joint space narrowing bilateral medial and lateral tibiofemoral compartments.
--- NOTE | 2016-12-28 18:29 | NUR ---
[facility] ASSIGNMENT [phone]
--- NOTE | 2016-12-28 18:47 | NUR ---
MEDICATED WITH KAYEXALATE PER eMAR AND MORPHINE ADMINISTERED FOR CONTINUED PAIN 08/15. AWARE OF BED ASSIGNMENT
[2016-12-28 19:38] VITALS: BP 130/60
--- NOTE | 2016-12-28 20:11 | Admission Certification ---
Admission Certification Certification Statement - As attending physician, I certify that at the time of - admission, based on clinical presentation, severity of - symptoms, need for further diagnostic testing and - therapeutic interventions, and risk of adverse outcomes - without in-hospital treatment, in my clinical assessment, - this patient requires an acute hospital stay for a minimum - of two nights or longer. I have also considered psychsocial - factors such as support system, advanced age, financial - issues, cognitive issues, and failed out-patient treatments, - past re-admission history, safety of patient, and lack of - compliance as applicable. Specific rationale supporting this admission is: Fluid overload in this elderly patient with ESRD on hemodialysis after he missed his dialysis session, with Hyperkalemia. Bilateral joint pains needs further evaluation. Elevated troponin -demand ischemia.
[2016-12-28] MEDS ORDERED: ALBUTEROL0.63 MG/1 INH/SOL (20:21)
[2016-12-28] MEDS ORDERED: PROVENTIL HFA6.7 GM INH (20:22)
[2016-12-28] MEDS ORDERED: ASPIRIN EC81 M1 PO (20:22)
[2016-12-28] MEDS ORDERED: LASIX80 M1 PO (20:25)
[2016-12-28] MEDS ORDERED: ISOSORBIDE MONO60 M1 PO (20:26)
[2016-12-28] MEDS ORDERED: LOPRESSOR50 M1 PO (20:27)
[2016-12-28] MEDS ORDERED: OMEPRAZOLE20 M2 PO (20:27)
[2016-12-28] MEDS ORDERED: ZOCOR20 M1 PO (20:28)
--- NOTE | 2016-12-28 20:32 | NUR ---
LATE ENTRY: ADMISSION NOTE: PT ARRIVED TO FLOOR A&OX3, RA, PT REPORTS COUGH SPUTUM CUP PROVIDED, ABD ROUND SOFT, LB 12/28/16 RENAL DIALYSIS DIET, PT DIALYSIS M,W,F, RCW SALMA CATH LAST ACCESSED 12/26/16 DSG CDI, PER PT STILL VOIDS, URINAL PROVIDED, ALPS ON, CALL LIGHT WITHIN REACH, NO HX FALLS PT OOB IND, HX MRSA IN SPUTUM ISOLATION SET UP, IV IN RW 12/28/16 STARTED IN ER. SIGNED PLACED ABOVE BED- SAVING LEFT ARM- NO LEFT ARM USE AT THIS TIME.
[2016-12-28 23:01] VITALS: BP 140/70
--- NOTE | 2016-12-28 23:08 | RADIOLOGY REPORT ---
EXAMINATION: XR BILATERAL KNEES CLINICAL INFORMATION: Concern for osteoarthrosis versus crystal-induced arthropathy. COMPARISON: Plain films of the left knee 01/15/2015. Plain films of the right knee 06/04/2013. TECHNIQUE: AP and crosstable lateral views of the liver bilateral knees. FINDINGS: Left knee: No acute fracture or dislocation of the left knee. Minimal joint space narrowing within the medial and tibiofemoral compartments. Incidental note is made of a small enthesophytes along the insertion point of the quadricep tendon. There is mild prepatellar soft tissue swelling. No significant suprapatellar knee joint effusion is identified. Right knee: No acute fracture or dislocation of the right knee. Minimal joint space narrowing within the medial and lateral tibiofemoral compartments. No significant suprapatellar knee joint effusion. Mild prepatellar soft tissue swelling. IMPRESSION: Mild bilateral prepatellar soft tissue swelling. Otherwise, no acute fracture or dislocation of the bilateral knees. No significant suprapatellar knee joint effusion. There is minimal joint space narrowing involving the bilateral medial and lateral tibiofemoral compartments.
--- NOTE | 2016-12-28 23:16 | NUR ---
PT CRITICAL LAB TROPONIN 0.11, NOTIFIED MD RITCHIE.
--- NOTE | 2016-12-28 23:31 | NUR ---
MD AT BEDSIDE, ORDER PLACED TO TRANSFER TO TELE. NURSING PHOTOGRAMMETRIC SURVEYOR NOTIFIED, WAITING FOR NEW RM ASSIGNMENT.
--- NOTE | 2016-12-28 23:37 | Event Note ---
Event Note Event Note: I was told by the nurse that the patient is having positive troponin of 0.11. I saw and examined the patient at the bedside. He was asymptomatic, denies of any chest pain, dyspnea. Vital signs-temperature 98.1, pulse 68, respirations 18, blood pressure 140/70, SPO 2 95%. EKG shows no any acute changes. As the patient was having significant past medical history of cardiac problems including hypertension, hyperlipidemia, HFrEF(AICD),Afib (on coumadin), we transfered the patient to the telemetry, for further observation. We also ordered CBC, BEP, troponins , EKGs , PT/INR for 4 o'clock in the morning .We signed out to night team. We also talked to the patient if he want us to inform to the family, he told to wait for next day. Attending and resident are aware.
[2016-12-29 00:57] VITALS: BP 128/72
[2016-12-29 04:56] LABS: ABSOLUTE BASOPHIL COUNT 0 /CUMM (0.0-0.2); ABSOLUTE EOSINOPHIL COUNT 0 /CUMM (0.0-0.7); ABSOLUTE GRANULOCYTE CT 10.3 /CUMM (1.4-6.5); ABSOLUTE LYMPH COUNT 0.4 /CUMM (1.2-3.4); ABSOLUTE MONOCYTE COUNT 0.2 /CUMM (0.10-0.60); BASOPHIL % 0 % (0.0-2.0); EOSINOPHIL % 0.4 % (0-5); HEMATOCRIT 33.6 % (42-52); MEAN CORPUSCULAR HGB 27.8 PG (27.0-31.0); MEAN CORPUSCULAR HGB CONC 31.6 G/DL (33.0-37.0); MEAN CORPUSCULAR VOLUME 88.1 FL (80.0-94.0); MEAN PLATELET VOLUME 9.3 FL (7.4-10.4); PLATELET COUNT 132 /CUMM (130-400); RED BLOOD CELL CT 3.82 /CUMM (4.70-6.10); WHITE BLOOD CELL COUNT 10.9 /CUMM (4.8-10.8)
[2016-12-29 05:00] LABS: PT 16.8 SEC (9.4-12.5)
[2016-12-29 05:15] LABS: GRANULOCYTE % 94.2 % (42.2-75.2)
--- NOTE | 2016-12-29 06:47 | NUR ---
PT HAD A 5 BEAT RUN OF VTACH, REMAINS SLEEPING SHANIKA WOOD MD AWARE
[2016-12-29 08:28] VITALS: BP 162/80
--- NOTE | 2016-12-29 08:31 | Cons- Nephrology ---
General Information and HPI Consulting Request Date of Consult: 12/29/16 Requested By: YOGI STREET,LYUBOV Reason for Consult: ESRD & SOB Source of Information: patient, old records Exam Limitations: no limitations History of Present Illness: 71 yr old WM w mult med problems including DM, HTN, CHF, COPD, & ESRD on chronic HD admit yesterday w persistent nonproductive cough & bilat knee pain. Hosp last week w volume overload & COPD exacerbation. Discharged to complete course po antibiotics but continued cough w/o hemoptysis or CP. Had chills at home but no documented fever in hosp. Missed HD yesterday & poorly compliant w dietary Na & water restrictions w hi wt gains --> repeatedly declines extra outpt HD for UF. Found hyperkalemic to 6.0 requiring po Kayexalate overnight. Current HD access R IJ cath as await eval for AVF creation. Allergies/Medications Allergies: Coded Allergies: NO KNOWN ALLERGIES (10/04/16) Home Med List: Albuterol Sulfate 0.63 MG/3 ML VIAL.NEB 1 Vial INH/SALIMA TID PRN COPD (Reported ) Albuterol Sulfate (Proventil Hfa) 90 MCG HFA.AER.AD 2 PUF INH 4 TIMES/DAY PRN COPD (Reported) Allopurinol 100 MG TABLET 1 TAB PO DAILY GOUT Aspirin (Ecotrin*) 81 MG TABLET.DR 1 TAB PO DAILY Heart Health (Reported) Budesonide/Formoterol Fumarate (Symbicort 80-4.5 Mcg Inhaler) 80 MCG-4.5 MCG/ ACTUATION HFA.AER.AD 2 PUF INH BID copd Colchicine 0.6 MG TABLET 1 TAB PO DAILY GOUT (Reported) Ferrous Sulfate 325 MG (65 MG IRON) TABLET 1 TAB PO BID SUPPLEMENT (Reported) Folic Acid 1 MG TABLET 1 MG PO DAILY SUPPLEMENT (Reported) Furosemide (Lasix) 80 MG TABLET 1 TAB PO DAILY CHF (Reported) Guaifenesin (Mucinex) 600 MG TAB.ER.12H 1 TAB PO BID MUCOLYTIC Insulin Glargine, Recombinan (Lantus) 100 U/ML SALIMA 12 UNIT SC DAILY DIABETES (Reported) Insulin Lispro (Humalog) 100 UNIT/ML VIAL diabetes (Reported) Blood sugar Insulin dose < 80mg/dl No dose 80-150 mg/dl No dose 151-200mg/dl One unit 201-250mg/dl Two units 251-300mg/dl Three units 301-350mg/dl Four units 351-400mg/dl Six units Above 400mg/dl Eight units and call . Isosorbide Mononitrate (Isosorbide Mononitrate ER) 60 MG TAB.ER.24H 1 TAB PO DAILY HTN (Reported) Loratadine (Claritin) 10 MG TABLET 1 TAB PO DAILY NASAL CONGESTION Metoprolol Tartrate (Lopressor) 50 MG TABLET 1 TAB PO BID HTN (Reported) Mometasone Furoate (Nasonex) 50 MCG SPRAY.PUMP 2 SPRAY NASB DAILY NASAL CONGESTION Omeprazole 20 MG CAPSULE.DR Kelsey CAP PO DAILY GERD (Reported) Prednisone 10 MG TABLET 1 TAB PO DIRECTED COPD TAKE 4 TABLETS TODAY (12/20) TAKE 3 TABLETS FOR 2 DAYS (12/21-12/22) TAKE 2 TABLETS FOR 2 DAYS (12/22-12/23) TAKE 1 TABLET FOR 2 DAYS (12/24-12/25) Sevelamer Carbonate (Renvela) 800 MG TABLET 1,600 MG PO WM DIALYSIS Simvastatin (Zocor*) 20 MG TABLET 1 TAB PO QPM Cholesterol (Reported) Warfarin Sodium (Coumadin) 5 MG TABLET 1 TAB PO DAILY BLOOD THINNER (Reported ) please dose Coumadin as per INR. Current Medications: Current Medications Sig/Johnna Start time Last Medication Dose Route Stop Time Status Admin Acetaminophen 650 MG Q6P PRN 12/28 1830 AC PO Acetaminophen 1,000 MG Q6P PRN 12/28 1830 AC IV Albuterol Sulfate 2 PUF 4 TIMES/DAY PRN 12/28 2030 AC INH Albuterol Sulfate 3 ML Q8P PRN 12/28 2030 AC 12/29 INH 0805 Allopurinol 100 MG DAILY 12/28 2114 AC PO Aspirin Buffered 81 MG DAILY 12/29 1000 AC PO Atorvastatin Calcium 10 MG 1700 12/29 1700 AC PO Budesonide/ 2 PUF BID 12/28 2199 AC 12/28 Formoterol Fumarate INH 2227 Calcium Gluconate 1 GM ONCE ONE 12/28 1914 DC 12/28 Sodium Chloride 100 ML IV 12/28 Colchicine 600 MCG DAILY 12/28 2114 AC PO Dextrose 25 GM ONCE ONE 12/28 1914 DC 12/28 IV 12/28 Furosemide 80 MG DAILY 12/29 1000 AC PO Furosemide 40 MG ONCE ONE 12/28 1929 DC 12/28 IV 12/28 1932220 Guaifenesin 600 MG BID 12/28 2200 AC 12/28 PO 2221 Insulin Aspart 0 TIDAC 12/29 0800 AC SC Insulin Detemir 12 UNITS DAILY 12/29 1000 CAN SC Insulin Human Regular 10 UNITS ONCE ONE 12/28 1915 DC 12/28 IV 12/28 Isosorbide 60 MG DAILY 12/29 1000 AC Mononitrate PO Magnesium Oxide 400 MG ONE ONE 12/28 2044 DC 12/28 PO 12/28 Magnesium Sulfate 1 GM Q2H 12/29 0545 AC 12/29 Dextrose/Water 100 ML IV 12/29 0944 0600 Methylprednisolone 125 MG ONCE ONE 12/28 2030 DC 12/28 IV 12/28 Metoprolol Tartrate 50 MG BID 12/280 AC 12/28 PO 222 Morphine Sulfate 0 .STK-MED ONE 12/28 1831 DC .ROUTE Morphine Sulfate 1 MG Q6-PRN PRN 12/28 1830 AC 12/28 IV 1847 Omeprazole 20 MG DAILY AC 12/29 0700 AC 12/29 PO 0637 Prednisone 40 MG DAILY 12/29 1000 AC PO 01/02 0959 Sodium Polystyrene 60 ML ONCE ONE 12/29 0545 DC 12/29 Sulfonate PO 12/29 0546 0556 Sodium Polystyrene 0 .STK-MED ONE 12/28 1845 DC Sulfonate .ROUTE Sodium Polystyrene 120 ML ONCE ONE 12/28 1815 DC 12/28 Sulfonate PO 12/28 1816 1847 Tramadol HCl 0 .STK-MED ONE 12/28 1609 DC PO Tramadol HCl 50 MG ONCE ONE 12/28 1600 DC 12/28 PO 12/28 1601 1608 Warfarin Sodium 7.5 MG COUMADIN 1700 ONE 12/28 204 DC 12/28 PO 12/28 Review of Systems Review of Systems Constitutional: Reports: chills. EENTM: Reports: no symptoms. Cardiovascular: Reports: no symptoms. Respiratory: Reports: see HPI, cough, short of breath. GI: Reports: no symptoms. Genitourinary: Reports: no symptoms. Musculoskeletal: Reports: joint pain. Denies: see HPI. Skin: Reports: no symptoms. Neurological/Psychological: Reports: no symptoms. Hematologic/Endocrine: Reports: no symptoms. Immunologic/Allergic: Reports: no symptoms. All Other Systems: Reviewed and Negative Past History Travel History Traveled to [place] past 21 day No Medical History Blood Transfusion Hx: Yes Neurological: NONE EENT: allergies Cardiovascular: AFIB (paroxysmal), CAD, cardiomyopathy, hypertension, hyperlipidemia, systolic CHF, PACEMAKER/DEFIBRILLATOR Respiratory: COPD, obstructive sleep apnea (not using CPAP), NON COMPLIANT W/ CPAP Gastrointestinal: GERD Hepatic: NONE Renal: ESRD on HD Musculoskeletal: gout, CELLULITIS Psychiatric: NONE Endocrine: diabetes Blood Disorders: anemia, monoclonal gammopathy of unknown significance Cancer(s): NONE 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 Psychosocial History Where Do You Live? Home Who Do You Live With? self Services at Home: None Primary Language: Luxembourgish Smoking Status: Former Smoker Functional Ability ADLs Independent: dressing, eating, toileting, bathing. Ambulation: independent IADLs Independent: shopping, housework, finances, food prep, telephone, transportation , medication admin. Exam & Diagnostic Data Vital Signs and I&O Vital Signs Date Time Temp Pulse Resp B/P Pulse O2 O2 Flow FiO2 Ox Delivery Rate 12/29 0057 97.9 74 18 128/72 94 Room Air 12/29 0000 Room Air 12/28 2301 98.1 68 18 140/70 95 Room Air 12/28 2221 68 140/70 12/28 1944 Room Air 12/28 1938 97.5 80 18 130/60 95 Room Air 12/28 1840 97.2 78 16 168/88 99 Room Air 12/28 1544 96 Room Air 12/28 1530 98.2 12/28 1404 97.9 82 18 175/75 95 Room Air Intake & Output 12/29 1600 12/29 0400 12/28 1600 12/28 0400 12/27 1600 12/27 0400 Intake Total 120 630 Output Total 175 Balance -55 630 Intake, IV 150 Intake, Oral 120 480 Output, Urine 175 Patient 187 lb 187 lb Weight Physical Exam General Appearance: well developed/nourished, no apparent distress, alert Head: atraumatic, normal appearance Eyes: Bilateral: normal appearance. Ears, Nose, Throat: normal ENT inspection Neck: normal inspection, R IJ HD cath tunneled --> subclavian location Respiratory: no respiratory distress, rhonchi (improved w cough) Cardiovascular: regular rate/rhythm, friction rub (none) Gastrointestinal: soft, non-tender, no organomegaly Extremities: swelling Neurologic/Psych: awake, alert, oriented x 3, advertising campaign manager II-XII nml as tested Skin: intact, normal color Lymphatic: no anterior cervical alea Results Pertinent Lab Results: Laboratory Tests 12/29 12/28 12/28 0415 2145 2145 Chemistry Sodium (137 - 145 mmol/L) 138 139 Potassium (3.5 - 5.1 mmol/L) 5.6 H 4.5 Chloride (98 - 107 mmol/L) 102 103 Carbon Dioxide (22 - 30 mmol/L) 21 L 21 L Anion Gap (5 - 16) 15 15 BUN (9 - 20 mg/dL) 67 H 62 H Creatinine (0.7 - 1.2 mg/dL) 4.9 H 4.8 H Estimated GFR (>60 ml/min) 12 L 12 L BUN/Creatinine Ratio (7 - 25 %) 13.7 12.9 Lactic Acid (0.7 - 2.1 mmol/L) 1.7 Uric Acid (3.5 - 8.5 mg/dL) 6.0 Magnesium (1.6 - 2.3 mg/dL) 1.5 L Troponin I (<0.11 ng/ml) 0.12 *H 0.11 *H TSH (0.270 - 4.200 uIU/mL) 2.670 Free T4 (0.78 - 2.44 ng/dL) 0.89 Coagulation PT (9.4 - 12.5 SEC) 16.8 H INR (0.90 - 1.17) 1.61 H Hematology CBC w Diff NO MAN DIFF REQ WBC (4.8 - 10.8 /CUMM) 10.9 H RBC (4.70 - 6.10 /CUMM) 3.82 L Hgb (14.0 - 18.0 G/DL) 10.6 L Hct (42 - 52 %) 33.6 L MCV (80.0 - 94.0 FL) 88.1 MCH (27.0 - 31.0 PG) 27.8 RDW (11.5 - 14.5 %) 21.0 H Plt Count (130 - 400 /CUMM) 132 MPV (7.4 - 10.4 FL) 9.3 Gran % (42.2 - 75.2 %) 94.2 H Lymphocytes % (20.5 - 51.1 %) 3.7 L Monocytes % (1.7 - 9.3 %) 1.7 Eosinophils % (0 - 5 %) 0.4 Basophils % (0.0 - 2.0 %) 0 L Absolute Granulocytes (1.4 - 6.5 /CUMM) 10.3 H Absolute Lymphocytes (1.2 - 3.4 /CUMM) 0.4 L Absolute Monocytes (0.10 - 0.60 /CUMM) 0.2 Absolute Eosinophils (0.0 - 0.7 /CUMM) 0 Absolute Basophils (0.0 - 0.2 /CUMM) 0 PUBS MCHC (33.0 - 37.0 G/DL) 31.6 L 12/28 12/28 12/28 1558 1538 1538 Chemistry Hemoglobin A1c Pending Lactic Acid (0.7 - 2.1 mmol/L) 1.7 Coagulation PT (9.4 - 12.5 SEC) 14.8 H INR (0.90 - 1.17) 1.41 H APTT (25 - 37 SEC) 34 12/28 1538 Chemistry Sodium (137 - 145 mmol/L) 140 Potassium (3.5 - 5.1 mmol/L) 6.0 *H Chloride (98 - 107 mmol/L) 104 Carbon Dioxide (22 - 30 mmol/L) 19 L Anion Gap (5 - 16) 17 H BUN (9 - 20 mg/dL) 60 H Creatinine (0.7 - 1.2 mg/dL) 4.4 H Estimated GFR (>60 ml/min) 13 L BUN/Creatinine Ratio (7 - 25 %) 13.6 Glucose (65 - 99 mg/dL) 109 H Calcium (8.4 - 10.2 mg/dL) 8.2 L Magnesium (1.6 - 2.3 mg/dL) 1.5 L Total Bilirubin (0.2 - 1.3 mg/dL) 0.7 AST (17 - 59 U/L) 27 ALT (21 - 72 U/L) 32 Alkaline Phosphatase (< 127 U/L) 87 Troponin I (<0.11 ng/ml) 0.07 Sys-F-Xvrynlwqufa Pept (<125 pg/mL) 01371 H Total Protein (6.3 - 8.2 g/dL) 6.1 L Albumin (3.5 - 5.0 g/dL) 3.6 Globulin (1.9 - 4.2 gm/dL) 2.5 Albumin/Globulin Ratio (1.1 - 2.2 %) 1.4 Hematology CBC w Diff NO MAN DIFF REQ WBC (4.8 - 10.8 /CUMM) 12.9 H RBC (4.70 - 6.10 /CUMM) 4.13 L Hgb (14.0 - 18.0 G/DL) 11.6 L Hct (42 - 52 %) 36.0 L MCV (80.0 - 94.0 FL) 87.2 MCH (27.0 - 31.0 PG) 28.0 RDW (11.5 - 14.5 %) 21.1 H Plt Count (130 - 400 /CUMM) 140 MPV (7.4 - 10.4 FL) 8.4 Gran % (42.2 - 75.2 %) 84.4 H Lymphocytes % (20.5 - 51.1 %) 6.9 L Monocytes % (1.7 - 9.3 %) 6.9 Eosinophils % (0 - 5 %) 1.3 Basophils % (0.0 - 2.0 %) 0.5 Absolute Granulocytes (1.4 - 6.5 /CUMM) 10.9 H Absolute Lymphocytes (1.2 - 3.4 /CUMM) 0.9 L Absolute Monocytes (0.10 - 0.60 /CUMM) 0.9 H Absolute Eosinophils (0.0 - 0.7 /CUMM) 0.2 Absolute Basophils (0.0 - 0.2 /CUMM) 0.1 PUBS MCHC (33.0 - 37.0 G/DL) 32.2 L Imaging/Other Studies: CXR: IMPRESSION: Limited exam secondary to pulmonary hypoinflation and patient body habitus. Moderate cardiomegaly with mild central venous congestion. No overt alveolar edema. Mildly prominent interstitial lung markings could reflect interstitial pulmonary edema. No dense airspace consolidation to suggest infection. Knees: IMPRESSION: Mild bilateral prepatellar soft tissue swelling. Otherwise, no acute fracture or dislocation of the bilateral knees. No significant suprapatellar knee joint effusion. There is minimal joint space narrowing involving the bilateral medial and lateral tibiofemoral compartments. Assessment/Plan Assessment/Recommendations Assessment: 1. ESRD: due to DM & HTN; will require HD today & again tomorrow. Needs vasc surg consult, Dr Luis Jackson, re AVF creation. 2. Volume overload: UF w HD 3. COPD: w ? bronchitis; continue steroids & bronchodilators 4. Hypocalcemia: mild & likely 22 combination mild hypoMg, ? hi phos, & active Vit D deficiency in face of ESRD; agree w IV Mg supplememnt & will dialyze against hi Ca bath as restart IV calcitriol w HD Recommendations: 1. HD today & tomorrow 2. UF 4-5 liters w HD 3. Vasc Surg consult Dr. Luis Jackson re AVF cration 4. EPO 6000 units IV w HD MWF 5. calcitriol 1.0 mcg IV w HD tiw 6. CaCO3 1250 mg w meals
--- NOTE | 2016-12-29 09:14 | PN- Housestaff ---
See Addendum Subjective Follow-up For: Hyperkalemia COPD exacerbation End-stage renal disease with fluid overload Gouty arthritis Diabetes mellitus A.fib Tele-Events Since Last Visit: Sinus rhythm, heart rate 60s to 70s, PVCs, bundle branch block Subjective: Seen and examined patient, complains of bilateral knee and ankle pain. States that his weight gain is primarily due to the fact that he is eating well and that he has put on weight rather than fluid. Denies fever chest pain, shortness of breath, bowel and bladder symptoms. Review of Systems Constitutional: Denies: chills, diaphoresis, fever, malaise, weakness, unexplained weight loss. Cardiovascular: Denies: chest pain, edema, orthopena, palpitations, peripheral edema, syncope. Respiratory: Denies: cough, hemoptysis, orthopnea, short of breath, sputum production, stridor, wheezing. Musculoskeletal: Reports: joint pain. Objective Last 24 Hrs of Vital Signs/I&O Vital Signs Date Time Temp Pulse Resp B/P Pulse O2 O2 Flow FiO2 Ox Delivery Rate 12/29 0840 Room Air Room Air 12/29 0828 97.8 86 20 162/80 94 Room Air 12/29 0057 97.9 74 18 128/72 94 Room Air 12/29 0000 Room Air 12/28 2301 98.1 68 18 140/70 95 Room Air 12/28 2221 68 140/70 12/28 1944 Room Air 12/28 1938 97.5 80 18 130/60 95 Room Air 12/28 1840 97.2 78 16 168/88 99 Room Air 12/28 1544 96 Room Air 12/28 1530 98.2 12/28 1404 97.9 82 18 175/75 95 Room Air Intake & Output 12/29 1600 12/29 0800 12/29 0000 Intake Total 120 630 Output Total 175 Balance -55 630 Intake, IV 150 Intake, Oral 120 480 Output, Urine 175 Patient 187 lb Weight Physical Exam General Appearance: Alert, Oriented X3, Cooperative, No Acute Distress Cardiovascular: Regular Rate, Normal S1, Normal S2 Lungs: bilateral decreased breath sounds Abdomen: Soft, distended Extremities: No Edema, No Tenderness/Swelling Current Medications: Current Medications Sig/Johnna Start time Last Medication Dose Route Stop Time Status Admin Acetaminophen 650 MG Q6P PRN 12/28 1830 AC 12/29 PO 0901 Acetaminophen 1,000 MG Q6P PRN 12/28 1830 AC IV Albuterol Sulfate 3 ML BID 12/29 2200 AC INH Albuterol Sulfate 2 PUF 4 TIMES/DAY PRN 12/28 2030 AC INH Albuterol Sulfate 3 ML Q8P PRN 12/28 2030 DC 12/29 INH 0805 Allopurinol 100 MG DAILY 12/28 2114 AC PO Aspirin Buffered 81 MG DAILY 12/29 1000 AC PO Atorvastatin Calcium 10 MG 1700 12/29 1700 AC PO Budesonide/ 2 PUF BID 12/28 220 AC 12/29 Formoterol Fumarate INH 0901 Calcium Carbonate 1,250 MG TIDAC 12/29 1200 AC PO Calcium Gluconate 1 GM ONCE ONE 12/28 1914 DC 12/28 Sodium Chloride 100 ML IV 12/28 Colchicine 600 MCG DAILY 12/28 2114 AC PO Dextrose 25 GM ONCE ONE 12/28 1914 DC 12/28 IV 12/28 Furosemide 80 MG DAILY 12/29 1000 AC PO Furosemide 40 MG ONCE ONE 12/28 1929 DC 12/28 IV 12/28 Guaifenesin 600 MG BID 12/28 2199 AC 12/28 PO 2221 Insulin Aspart 0 TIDAC/HS 12/29 0828 AC 12/29 SC 0901 Insulin Aspart 0 TIDAC 12/29 0800 DC SC Insulin Detemir 12 UNITS DAILY 12/29 1000 CAN SC Insulin Human Regular 10 UNITS ONCE ONE 12/28 1914 DC 12/28 IV 12/28 Isosorbide 60 MG DAILY 12/29 1000 AC Mononitrate PO Magnesium Oxide 400 MG BID 12/29 1000 CAN PO Magnesium Oxide 400 MG ONE ONE 12/28 2044 DC 12/28 PO 12/28 2045 222 Magnesium Sulfate 1 GM Q2H 12/29 0915 AC Dextrose/Water 100 ML IV 12/29 1314 Magnesium Sulfate 1 GM Q2H 12/29 0545 DC 12/29 Dextrose/Water 100 ML IV 12/29 0944 0816 Methylprednisolone 125 MG ONCE ONE 12/28 2030 DC 12/28 IV 12/28 2030 222 Metoprolol Tartrate 50 MG BID 12/28 2199 AC 12/28 PO 2221 Morphine Sulfate 0 .STK-MED ONE 12/28 1830 DC .ROUTE Morphine Sulfate 1 MG Q6-PRN PRN 12/28 1830 AC 12/28 IV 1847 Multivitamins 1 TAB DAILY 12/29 1000 AC PO Omeprazole 20 MG DAILY AC 12/29 0700 AC 12/29 PO 0637 Prednisone 40 MG DAILY 12/29 1000 AC PO 01/02 0959 Sodium Polystyrene 60 ML ONCE ONE 12/29 0545 DC 12/29 Sulfonate PO 12/29 0546 0556 Sodium Polystyrene 0 .STK-MED ONE 12/28 1845 DC Sulfonate .ROUTE Sodium Polystyrene 120 ML ONCE ONE 12/28 1815 DC 12/28 Sulfonate PO 12/28 1816 1847 Tramadol HCl 0 .STK-MED ONE 12/28 1609 DC PO Tramadol HCl 50 MG ONCE ONE 12/28 1600 DC 12/28 PO 12/28 1601 1608 Warfarin Sodium 5 MG COUMADIN 1700 ONE 12/29 1700 UNVr PO 12/29 1701 Warfarin Sodium 7.5 MG COUMADIN 1700 ONE 12/28 204 DC 12/28 PO 12/28 Last 24 Hrs of Lab/Satnam Results Last 24 Hrs of Labs/Mics: Laboratory Tests 12/29/16 0415: Anion Gap 15, Estimated GFR 12 L, BUN/Creatinine Ratio 13.7, Magnesium 1.5 L, Troponin I 0.12 *H, PT 16.8 H, INR 1.61 H, CBC w Diff NO MAN DIFF REQ, RBC 3.82 L, MCV 88.1, MCH 27.8, RDW 21.0 H, MPV 9.3, Gran % 94.2 H, Lymphocytes % 3.7 L, Monocytes % 1.7, Eosinophils % 0.4, Basophils % 0 L, Absolute Granulocytes 10.3 H, Absolute Lymphocytes 0.4 L, Absolute Monocytes 0.2, Absolute Eosinophils 0, Absolute Basophils 0, PUBS MCHC 31.6 L 12/28/16 2145: Lactic Acid 1.7 12/28/162144: Anion Gap 15, Estimated GFR 12 L, BUN/Creatinine Ratio 12.9, Uric Acid 6.0, Troponin I 0.11 *H, TSH 2.670, Free T4 0.89 12/28/16 175: Methadone Screen Cancelled, Barbiturate Screen Cancelled, Ur Phencyclidine Scrn Cancelled, Amphetamines Screen Cancelled, U Benzodiazepines Scrn Cancelled, Urine Cocaine Screen Cancelled, Urine Cannabis Screen Cancelled, Urine Color Cancelled, Urine Clarity Cancelled, Urine pH Cancelled, Ur Specific [place] Cancelled, Urine Protein Cancelled, Urine Ketones Cancelled, Urine Nitrite Cancelled, Urine Bilirubin Cancelled, Urine Urobilinogen Cancelled, Ur Leukocyte Esterase Cancelled, Ur Microscopic Cancelled, Urine Hemoglobin Cancelled, Urine Glucose Cancelled 12/28/16 1558: PT 14.8 H, INR 1.41 H, APTT 34 12/28/16 1538: Lactic Acid 1.7 12/28/16 1538: Hemoglobin A1c Pending 12/28/16 1538: Anion Gap 17 H, Estimated GFR 13 L, BUN/Creatinine Ratio 13.6, Glucose 109 H, Calcium 8.2 L, Magnesium 1.5 L, Total Bilirubin 0.7, AST 27, ALT 32, Alkaline Phosphatase 87, Troponin I 0.07, [id number] Pept 58341 H, Total Protein 6.1 L, Albumin 3.6, Globulin 2.5, Albumin/Globulin Ratio 1.4, CBC w Diff NO MAN DIFF REQ, RBC 4.13 L, MCV 87.2, MCH 28.0, RDW 21.1 H, MPV 8.4, Gran % 84.4 H, Lymphocytes % 6.9 L, Monocytes % 6.9, Eosinophils % 1.3, Basophils % 0.5, Absolute Granulocytes 10.9 H, Absolute Lymphocytes 0.9 L, Absolute Monocytes 0.9 H, Absolute Eosinophils 0.2, Absolute Basophils 0.1, PUBS MCHC 32.2 L Microbiology 12/28 1613 BLOOD: Blood Culture - RECD 12/28 1605 BLOOD: Blood Culture - RECD 12/28 1535 NASOPHARYN: Influenza Virus A & B Rapid Smear - COMP Assessment/Plan Assessment: 71-year-old gentleman with past past history of coronary artery disease, CHF status post pacemaker, ESRD (hemodialysis Monday), gout on allopurinol, COPD (2 L) recently admitted for volume overload and COPD exacerbation discharged last week on by mouth antibiotics, missed dialysis yesterday due to joint pain cough. Readmitted for bilateral knee pain and nonproductive cough which is persistent, found to be hyperkalemic required by mouth Kayexalate overnight. Chest x-ray showed mildly prominent interstitial lung markings and no consolidation. Bilateral knee x-ray shows no acute fracture or dislocation and some minimal joint space narrowing with mild bilateral prepatellar soft tissue swelling. Afebrile overnight saturating well on room air. Prob list: Hyperkalemia COPD exacerbation End-stage renal disease with fluid overload Gouty arthritis Diabetes mellitus A.fib Plan On by mouth prednisone today Continue TRC/nebs Will replete magnesium, patient is to get dialyzed today we'll continue to monitor potassium after dialysis Vascular consult placed for AV fistula creation Continue calcium carbonate, Nephrocaps Continue Lasix, metoprolol, aspirin, Imdur, statin INR 1.61 today will dose 5 mg of Coumadin check INR tomorrow Renal dialysis diet DVT prophylaxis Coumadin Patient is full code Problem List: 1. CAD S/P STENT 2. Diabetes 3. Renal insufficiency 4. COPD (chronic obstructive pulmonary disease) Pain Ratin Pain Location: Not applicable Pain Goal: Pain 4 or less Pain Plan: Current regimen Tomorrow's Labs & Rationales: CBC/BEP/mag
--- NOTE | 2016-12-29 09:14 | Cons- Endocrinology ---
General Information and HPI Consulting Request Date of Consult: 12/29/16 Requested By: medical team Reason for Consult: management of DM type 2 Source of Information: patient, old records Exam Limitations: no limitations History of Present Illness: 71-year-old man has a PMH of hypertension, hyperlipidemia, CHF, COPD, ESRD on HD, FREDY, DM type 2, gout, Afib(on coumadin) and pulmonary HTN. He came in to [facility] with a chief concern of body aches, productive cough, fever, weight gain and SOB. He received Siolumedrol 125 mg in ER. Now he is in Tele and was put on prednisone 40 mg daily. His FSGs were 154, 67, 81 and 190. Allergies/Medications Allergies: Coded Allergies: NO KNOWN ALLERGIES (10/04/16) Home Med List: Albuterol Sulfate 0.63 MG/3 ML VIAL.NEB 1 Vial INH/SALIMA TID PRN COPD (Reported ) Albuterol Sulfate (Proventil Hfa) 90 MCG HFA.AER.AD 2 PUF INH 4 TIMES/DAY PRN COPD (Reported) Allopurinol 100 MG TABLET 1 TAB PO DAILY GOUT Aspirin (Ecotrin*) 81 MG TABLET.DR 1 TAB PO DAILY Heart Health (Reported) Budesonide/Formoterol Fumarate (Symbicort 80-4.5 Mcg Inhaler) 80 MCG-4.5 MCG/ ACTUATION HFA.AER.AD 2 PUF INH BID copd Colchicine 0.6 MG TABLET 1 TAB PO DAILY GOUT (Reported) Ferrous Sulfate 325 MG (65 MG IRON) TABLET 1 TAB PO BID SUPPLEMENT (Reported) Folic Acid 1 MG TABLET 1 MG PO DAILY SUPPLEMENT (Reported) Furosemide (Lasix) 80 MG TABLET 1 TAB PO DAILY CHF (Reported) Guaifenesin (Mucinex) 600 MG TAB.ER.12H 1 TAB PO BID MUCOLYTIC Insulin Glargine, Recombinan (Lantus) 100 U/ML SALIMA 12 UNIT SC DAILY DIABETES (Reported) Insulin Lispro (Humalog) 100 UNIT/ML VIAL diabetes (Reported) Blood sugar Insulin dose < 80mg/dl No dose 80-150 mg/dl No dose 151-200mg/dl One unit 201-250mg/dl Two units 251-300mg/dl Three units 301-350mg/dl Four units 351-400mg/dl Six units Above 400mg/dl Eight units and call MD. Isosorbide Mononitrate (Isosorbide Mononitrate ER) 60 MG TAB.ER.24H 1 TAB PO DAILY HTN (Reported) Loratadine (Claritin) 10 MG TABLET 1 TAB PO DAILY NASAL CONGESTION Metoprolol Tartrate (Lopressor) 50 MG TABLET 1 TAB PO BID HTN (Reported) Mometasone Furoate (Nasonex) 50 MCG SPRAY.PUMP 2 SPRAY NASB DAILY NASAL CONGESTION Omeprazole 20 MG CAPSULE.DR 1 CAP PO DAILY GERD (Reported) Prednisone 10 MG TABLET 1 TAB PO DIRECTED COPD TAKE 4 TABLETS TODAY (12/20) TAKE 3 TABLETS FOR 2 DAYS (12/21-12/22) TAKE 2 TABLETS FOR 2 DAYS (12/22-12/23) TAKE 1 TABLET FOR 2 DAYS (12/24-12/25) Sevelamer Carbonate (Renvela) 800 MG TABLET 1,600 MG PO WM DIALYSIS Simvastatin (Zocor*) 20 MG TABLET 1 TAB PO QPM Cholesterol (Reported) Warfarin Sodium (Coumadin) 5 MG TABLET 1 TAB PO DAILY BLOOD THINNER (Reported ) please dose Coumadin as per INR. Review of Systems Review of Systems Constitutional: Reports: see HPI. Cardiovascular: Reports: peripheral edema. Denies: chest pain. Respiratory: Reports: cough, short of breath. GI: Denies: abdominal pain. Musculoskeletal: Reports: joint pain, joint swelling (? secondary to gout). Hematologic/Endocrine: Denies: polyuria, polydipsia. 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 Psychosocial History Where Do You Live? Home Who Do You Live With? self Services at Home: None Primary Language: Bangladeshi Smoking Status: Former Smoker Functional Ability ADLs Independent: dressing, eating, toileting, bathing. Ambulation: independent IADLs Independent: shopping, housework, finances, food prep, telephone, transportation , medication admin. Exam & Diagnostic Data Last 24 Hrs of Vital Signs/I&O Vital Signs Date Time Temp Pulse Resp B/P Pulse O2 O2 Flow FiO2 Ox Delivery Rate 12/29 0840 Room Air Room Air 12/29 0828 97.8 86 20 162/80 94 Room Air 12/29 0057 97.9 74 18 128/72 94 Room Air 12/29 0000 Room Air 12/28 2301 98.1 68 18 140/70 95 Room Air 12/28 2221 68 140/70 12/28 1944 Room Air 12/28 1938 97.5 80 18 130/60 95 Room Air 12/28 1840 97.2 78 16 168/88 99 Room Air 12/28 1544 96 Room Air 12/28 1530 98.2 12/28 1404 97.9 82 18 175/75 95 Room Air Intake & Output 12/29 1600 12/29 0800 12/29 0000 Intake Total 120 630 Output Total 175 Balance -55 630 Intake, IV 150 Intake, Oral 120 480 Output, Urine 175 Patient 187 lb Weight Physical Exam General Appearance: mild distress Neck: normal inspection Respiratory: decreased breath sounds Cardiovascular: irregularly irregular Gastrointestinal: soft, non-tender Extremities: swelling Skin: chronic skin changes Assessment/Plan Assessment/Plan 71-year-old man has a PMH of hypertension, hyperlipidemia, CHF, COPD, ESRD on HD, FREDY, DM type 2, gout, Afib(on coumadin) and pulmonary HTN. He came in to [facility] with a chief concern of body aches, productive cough, fever, weight gain and SOB. He received Siolumedrol 125 mg in ER. Now he is in Tele and was put on prednisone 40 mg daily. DM management: 1. adjust Novolog coverage before meals and add-on Novolog coverage at bedtime-- -detail see the inpatient DM orders; 2. monitor FSGs; will follow Inpatient Diabetes Orders Before Each Meal: Bolus Insulin: Novolog < 80 mg/dl: no coverage 80-100 mg/dl: 3 units 101-120 mg/dl: 3 units 121-150 mg/dl: 3 units 151-200 mg/dl: 4 units 201-250 mg/dl: 6 units 251-300 mg/dl: 8 units 301-350 mg/dl: 10 units 351-400 mg/dl: 12 units > 400 mg/dl: 14 units Bedtime: Bolus Insulin: Novolog < 80 mg/dl: no coverage 80-100 mg/dl: no coverage 101-120 mg/dl: no coverage 121-150 mg/dl: no coverage 151-200 mg/dl: no coverage 201-250 mg/dl: no coverage 251-300 mg/dl: 2 units 301-350 mg/dl: 3 units 351-400 mg/dl: 4 units > 400 mg/dl: 5 units Consult Acknowledgment - Thank you for your consult request.
--- NOTE | 2016-12-29 10:45 | NUR ---
1000: PER MD. ONEILL HOLD AM PO MEDICATIONS BECAUSE PATIENT IS GOING TO DIALYSIS IN AFTERNOON. GIVE DAILY MEDS IN AFTERNOON WHEN PATIENT IS BACK FROM DIALYSIS.
--- NOTE | 2016-12-29 12:22 | NUR ---
PATIENT'S BLOOD GLUCOSE LEVEL WAS 476 AT 1100. MD ONEILL MADE AWARE; ADMINISTERED 14 UNITS OF NOVOLOG PER SLIDING SCALE. RE CHECKED BLOOD GLUCOSE AT 1200 AND IT WAS 483. MD ONEILL MADE AWARE; ADMINISTERED ANOTHER 14 UNITS OF NOVOLOG PER MD ONEILL. WILL CONTINUE TO MONITOR.
--- NOTE | 2016-12-29 13:12 | Cons- Cardiology ---
General Information and HPI Consulting Request Date of Consult: 12/29/16 Requested By: BART MARQUEZ MD Reason for Consult: Elevated troponin Source of Information: patient, old records Exam Limitations: no limitations History of Present Illness: Mr Arias is a 71-year-old white male known to me with an extended medical history. He presents now to the hospital via the ER with complaints of productive cough, fever, chills for several days. He was initially admitted to the general medical floor but was subsequently transferred to telemetry due to a minimally elevated troponin. He denies any cardiac symptoms. Allergies/Medications Allergies: Coded Allergies: NO KNOWN ALLERGIES (10/04/16) Home Med List: Albuterol Sulfate 0.63 MG/3 ML VIAL.NEB 1 Vial INH/SALIMA TID PRN COPD (Reported ) Albuterol Sulfate (Proventil Hfa) 90 MCG HFA.AER.AD 2 PUF INH 4 TIMES/DAY PRN COPD (Reported) Allopurinol 100 MG TABLET 1 TAB PO DAILY GOUT Aspirin (Ecotrin*) 81 MG TABLET.DR 1 TAB PO DAILY Heart Health (Reported) Budesonide/Formoterol Fumarate (Symbicort 80-4.5 Mcg Inhaler) 80 MCG-4.5 MCG/ ACTUATION HFA.AER.AD 2 PUF INH BID copd Colchicine 0.6 MG TABLET 1 TAB PO DAILY GOUT (Reported) Ferrous Sulfate 325 MG (65 MG IRON) TABLET 1 TAB PO BID SUPPLEMENT (Reported) Folic Acid 1 MG TABLET 1 MG PO DAILY SUPPLEMENT (Reported) Furosemide (Lasix) 80 MG TABLET 1 TAB PO DAILY CHF (Reported) Guaifenesin (Mucinex) 600 MG TAB.ER.12H 1 TAB PO BID MUCOLYTIC Insulin Glargine, Recombinan (Lantus) 100 U/ML SALIMA 12 UNIT SC DAILY DIABETES (Reported) Insulin Lispro (Humalog) 100 UNIT/ML VIAL diabetes (Reported) Blood sugar Insulin dose < 80mg/dl No dose 80-150 mg/dl No dose 151-200mg/dl One unit 201-250mg/dl Two units 251-300mg/dl Three units 301-350mg/dl Four units 351-400mg/dl Six units Above 400mg/dl Eight units and call . Isosorbide Mononitrate (Isosorbide Mononitrate ER) 60 MG TAB.ER.24H 1 TAB PO DAILY HTN (Reported) Loratadine (Claritin) 10 MG TABLET 1 TAB PO DAILY NASAL CONGESTION Metoprolol Tartrate (Lopressor) 50 MG TABLET 1 TAB PO BID HTN (Reported) Mometasone Furoate (Nasonex) 50 MCG SPRAY.PUMP 2 SPRAY NASB DAILY NASAL CONGESTION Omeprazole 20 MG CAPSULE. 1 CAP PO DAILY GERD (Reported) Prednisone 10 MG TABLET 1 TAB PO DIRECTED COPD TAKE 4 TABLETS TODAY (12/20) TAKE 3 TABLETS FOR 2 DAYS (12/21-12/22) TAKE 2 TABLETS FOR 2 DAYS (12/22-12/23) TAKE 1 TABLET FOR 2 DAYS (12/24-12/25) Sevelamer Carbonate (Renvela) 800 MG TABLET 1,600 MG PO WM DIALYSIS Simvastatin (Zocor*) 20 MG TABLET 1 TAB PO QPM Cholesterol (Reported) Warfarin Sodium (Coumadin) 5 MG TABLET 1 TAB PO DAILY BLOOD THINNER (Reported ) please dose Coumadin as per INR. Current Medications: Current Medications Sig/Johnna Start time Last Medication Dose Route Stop Time Status Admin Acetaminophen 650 MG Q6P PRN 12/28 1830 AC 12/29 PO 0901 Acetaminophen 1,000 MG Q6P PRN 12/28 1830 AC IV Albuterol Sulfate 3 ML BID 12/29 220 AC INH Albuterol Sulfate 2 PUF 4 TIMES/DAY PRN 12/28 2030 AC INH Albuterol Sulfate 3 ML Q8P PRN 12/28 2030 DC 12/29 INH 0805 Allopurinol 100 MG DAILY 12/28 2114 AC PO Aspirin Buffered 81 MG DAILY 12/29 1000 AC PO Atorvastatin Calcium 10 MG 1700 12/29 1700 AC PO Budesonide/ 2 PUF BID 12/28 2200 AC 12/29 Formoterol Fumarate INH 0901 Calcium Carbonate 1,250 MG TIDAC 12/29 1200 AC PO Calcium Gluconate 1 GM ONCE ONE 12/28 1914 DC 12/28 Sodium Chloride 100 ML IV 12/28 Colchicine 600 MCG DAILY 12/28 2114 AC PO Dextrose 25 GM ONCE ONE 12/28 1914 DC 12/28 IV 12/28 Furosemide 80 MG DAILY 12/29 1000 AC PO Furosemide 40 MG ONCE ONE 12/28 1929 DC 12/28 IV 12/28 Guaifenesin 600 MG BID 12/28 2199 AC 12/28 PO 2221 Insulin Aspart 0 TIDAC/HS 12/29 0828 AC 12/29 SC 1229 Insulin Aspart 0 TIDAC 12/29 0800 DC SC Insulin Detemir 12 UNITS DAILY 12/29 1000 CAN SC Insulin Human Regular 10 UNITS ONCE ONE 12/28 1915 DC 12/28 IV 12/28 Isosorbide 60 MG DAILY 12/29 1000 AC Mononitrate PO Magnesium Oxide 400 MG BID 12/29 1000 CAN PO Magnesium Oxide 400 MG ONE ONE 12/28 2044 DC 12/28 PO 12/28 2045 222 Magnesium Sulfate 1 GM Q2H 12/29 0915 AC 12/29 Dextrose/Water 100 ML IV 12/29 1314 1248 Magnesium Sulfate 1 GM Q2H 12/29 0545 DC 12/29 Dextrose/Water 100 ML IV 12/29 0944 0816 Methylprednisolone 125 MG ONCE ONE 12/28 2030 DC 12/28 IV 12/28 2030 222 Metoprolol Tartrate 50 MG BID 12/28 2200 AC 12/28 PO 2221 Morphine Sulfate 0 .STK-MED ONE 12/28 1831 DC .ROUTE Morphine Sulfate 1 MG Q6-PRN PRN 12/28 1830 AC 12/28 IV 1847 Multivitamins 1 TAB DAILY 12/29 1000 AC PO Omeprazole 20 MG DAILY AC 12/29 0700 AC 12/29 PO 0637 Prednisone 40 MG DAILY 12/29 1000 AC PO 01/02 0959 Sodium Polystyrene 60 ML ONCE ONE 12/29 0545 DC 12/29 Sulfonate PO 12/29 0546 0556 Sodium Polystyrene 0 .STK-MED ONE 12/28 1845 DC Sulfonate .ROUTE Sodium Polystyrene 120 ML ONCE ONE 12/28 1815 DC 12/28 Sulfonate PO 12/28 1816 1847 Tramadol HCl 0 .STK-MED ONE 12/28 1609 DC PO Tramadol HCl 50 MG ONCE ONE 12/28 1600 DC 12/28 PO 12/28 1601 1608 Warfarin Sodium 5 MG COUMADIN 1700 ONE 12/29 1700 AC PO 12/29 1701 Warfarin Sodium 7.5 MG COUMADIN 1700 ONE 12/28 204 DC 12/28 PO 12/28 2045 222 Past History Travel History Traveled to [place] past 21 day No Medical History Blood Transfusion Hx: Yes Neurological: NONE EENT: allergies Cardiovascular: AFIB (paroxysmal), CAD, cardiomyopathy, hypertension, hyperlipidemia, systolic CHF, PACEMAKER/DEFIBRILLATOR Respiratory: COPD, obstructive sleep apnea (not using CPAP), NON COMPLIANT W/ CPAP Gastrointestinal: GERD Hepatic: NONE Renal: ESRD on HD Musculoskeletal: gout, CELLULITIS Psychiatric: NONE Endocrine: diabetes Blood Disorders: anemia, monoclonal gammopathy of unknown significance Cancer(s): NONE INFORMATION SPECIALIST/Reproductive: NONE Surgical History Surgical History: PACEMAKER SALMA catheter Family History Relations & Conditions If Any: MOTHER (Lung cancer). Psychosocial History Where Do You Live? Home Who Do You Live With? self Services at Home: None Primary Language: Nigerian Smoking Status: Former Smoker Functional Ability ADLs Independent: dressing, eating, toileting, bathing. Ambulation: independent IADLs Independent: shopping, housework, finances, food prep, telephone, transportation , medication admin. ECHO Results (as available) Report: CONCLUSIONS 1. Fibrocalcific degeneration is present in the aortic valve with evidence of moderate valvular stenosis and an estimated JUJU of 1.1 cm2 2. MItral leaflet thickening is present with mild to moderate mitral insufficiency and mild to moderate left atrial enlargement. 3. A small pericardial effusion is present which is hemodynamically insignificant. 4. The left ventricular chamber size is normal with borderline to mild LVH and an ejection fraction of 50-55%. Mild localized inferoposterior hypokinesia is present. 5. Mild to moderate tricuspid insufficiency is present with mild right heart chamber enlargement and moderate pulmonary hypertension with an estimated RV systolic pressure of 52 mmHg. 6. Pacemaker wires are noted in the right heart chambers. Exam & Diagnostic Data Vital Signs and I&O Vital Signs Date Time Temp Pulse Resp B/P Pulse O2 O2 Flow FiO2 Ox Delivery Rate 12/29 0840 Room Air Room Air 12/29 0828 97.8 86 20 162/80 94 Room Air 12/29 0057 97.9 74 18 128/72 94 Room Air 12/29 0000 Room Air 12/28 2301 98.1 68 18 140/70 95 Room Air 12/28 2221 68 140/70 12/28 1944 Room Air 12/28 1938 97.5 80 18 130/60 95 Room Air 12/28 1840 97.2 78 16 168/88 99 Room Air 12/28 1544 96 Room Air 12/28 1530 98.2 12/28 1404 97.9 82 18 175/75 95 Room Air Intake & Output 12/29 1600 12/29 0800 12/29 0000 12/28 1600 12/28 0800 12/28 0000 Intake Total 120 630 Output Total 175 Balance -55 630 Intake, IV 150 Intake, Oral 120 480 Output, Urine 175 Patient 187 lb 187 lb Weight Physical Exam: General Appearance Alert, Oriented X3, Cooperative, No Acute Distress Skin Normal HEENT Atraumatic, PERRLA, EOMI Neck Supple, No JVD, No thyromegaly Lymphatic Cervical nl Cardiovascular Regular Rate, Normal S1, Normal S2, 2/6 systolic murmur Lungs bilateral wheezes and rhonchi Abdomen Normal Bowel Sounds, Soft, No Tenderness Neurological Nonfocal Extremities No Clubbing, No Cyanosis, Normal Pulses, pedal edema 1+, swelling of b/l knees associated w/ tenderness Vascular Pulses Symmetrical Labs/Satnam Results: Laboratory Tests 12/29 12/29 12/28 12/28 1000 0415 2145 2145 Chemistry Sodium (137 - 145 mmol/L) 138 139 Potassium (3.5 - 5.1 mmol/L) 5.6 H 4.5 Chloride (98 - 107 mmol/L) 102 103 Carbon Dioxide (22 - 30 mmol/L) 21 L 21 L Anion Gap (5 - 16) 15 15 BUN (9 - 20 mg/dL) 67 H 62 H Creatinine (0.7 - 1.2 mg/dL) 4.9 H 4.8 H Estimated GFR (>60 ml/min) 12 L 12 L BUN/Creatinine Ratio (7 - 25 %) 13.7 12.9 Lactic Acid (0.7 - 2.1 mmol/L) 1.7 Uric Acid (3.5 - 8.5 mg/dL) 6.0 Magnesium (1.6 - 2.3 mg/dL) 1.5 L Troponin I (<0.11 ng/ml) 0.08 0.12 *H 0.11 *H TSH (0.270 - 4.200 uIU/mL) 2.670 Free T4 (0.78 - 2.44 ng/dL) 0.89 Coagulation PT (9.4 - 12.5 SEC) 16.8 H INR (0.90 - 1.17) 1.61 H Hematology CBC w Diff NO MAN DIFF REQ WBC (4.8 - 10.8 /CUMM) 10.9 H RBC (4.70 - 6.10 /CUMM) 3.82 L Hgb (14.0 - 18.0 G/DL) 10.6 L Hct (42 - 52 %) 33.6 L MCV (80.0 - 94.0 FL) 88.1 MCH (27.0 - 31.0 PG) 27.8 RDW (11.5 - 14.5 %) 21.0 H Plt Count (130 - 400 /CUMM) 132 MPV (7.4 - 10.4 FL) 9.3 Gran % (42.2 - 75.2 %) 94.2 H Lymphocytes % (20.5 - 51.1 %) 3.7 L Monocytes % (1.7 - 9.3 %) 1.7 Eosinophils % (0 - 5 %) 0.4 Basophils % (0.0 - 2.0 %) 0 L Absolute Granulocytes (1.4 - 6.5 /CUMM) 10.3 H Absolute Lymphocytes (1.2 - 3.4 /CUMM) 0.4 L Absolute Monocytes (0.10 - 0.60 /CUMM) 0.2 Absolute Eosinophils (0.0 - 0.7 /CUMM) 0 Absolute Basophils (0.0 - 0.2 /CUMM) 0 PUBS MCHC (33.0 - 37.0 G/DL) 31.6 L 12/28 12/28 12/28 12/28 1752 1558 1538 1538 Chemistry Hemoglobin A1c Pending Lactic Acid (0.7 - 2.1 mmol/L) 1.7 Coagulation PT (9.4 - 12.5 SEC) 14.8 H INR (0.90 - 1.17) 1.41 H APTT (25 - 37 SEC) 34 Toxicology Methadone Screen Cancelled Barbiturate Screen Cancelled Ur Phencyclidine Scrn Cancelled Amphetamines Screen Cancelled U Benzodiazepines Scrn Cancelled Urine Cocaine Screen Cancelled Urine Cannabis Screen Cancelled Urines Urine Color Cancelled Urine Clarity Cancelled Urine pH Cancelled Ur Specific [place] Cancelled Urine Protein Cancelled Urine Ketones Cancelled Urine Nitrite Cancelled Urine Bilirubin Cancelled Urine Urobilinogen Cancelled Ur Leukocyte Esterase Cancelled Ur Microscopic Cancelled Urine Hemoglobin Cancelled Urine Glucose Cancelled 12/28 1538 Chemistry Sodium (137 - 145 mmol/L) 140 Potassium (3.5 - 5.1 mmol/L) 6.0 *H Chloride (98 - 107 mmol/L) 104 Carbon Dioxide (22 - 30 mmol/L) 19 L Anion Gap (5 - 16) 17 H BUN (9 - 20 mg/dL) 60 H Creatinine (0.7 - 1.2 mg/dL) 4.4 H Estimated GFR (>60 ml/min) 13 L BUN/Creatinine Ratio (7 - 25 %) 13.6 Glucose (65 - 99 mg/dL) 109 H Calcium (8.4 - 10.2 mg/dL) 8.2 L Magnesium (1.6 - 2.3 mg/dL) 1.5 L Total Bilirubin (0.2 - 1.3 mg/dL) 0.7 AST (17 - 59 U/L) 27 ALT (21 - 72 U/L) 32 Alkaline Phosphatase (< 127 U/L) 87 Troponin I (<0.11 ng/ml) 0.07 [id number] Pept (<125 pg/mL) 21633 H Total Protein (6.3 - 8.2 g/dL) 6.1 L Albumin (3.5 - 5.0 g/dL) 3.6 Globulin (1.9 - 4.2 gm/dL) 2.5 Albumin/Globulin Ratio (1.1 - 2.2 %) 1.4 Hematology CBC w Diff NO MAN DIFF REQ WBC (4.8 - 10.8 /CUMM) 12.9 H RBC (4.70 - 6.10 /CUMM) 4.13 L Hgb (14.0 - 18.0 G/DL) 11.6 L Hct (42 - 52 %) 36.0 L MCV (80.0 - 94.0 FL) 87.2 MCH (27.0 - 31.0 PG) 28.0 RDW (11.5 - 14.5 %) 21.1 H Plt Count (130 - 400 /CUMM) 140 MPV (7.4 - 10.4 FL) 8.4 Gran % (42.2 - 75.2 %) 84.4 H Lymphocytes % (20.5 - 51.1 %) 6.9 L Monocytes % (1.7 - 9.3 %) 6.9 Eosinophils % (0 - 5 %) 1.3 Basophils % (0.0 - 2.0 %) 0.5 Absolute Granulocytes (1.4 - 6.5 /CUMM) 10.9 H Absolute Lymphocytes (1.2 - 3.4 /CUMM) 0.9 L Absolute Monocytes (0.10 - 0.60 /CUMM) 0.9 H Absolute Eosinophils (0.0 - 0.7 /CUMM) 0.2 Absolute Basophils (0.0 - 0.2 /CUMM) 0.1 PUBS MCHC (33.0 - 37.0 G/DL) 32.2 L Diagnostic Data CXR Results IMPRESSION: Limited exam secondary to pulmonary hypoinflation and patient body habitus. Moderate cardiomegaly with mild central venous congestion. No overt alveolar edema. Mildly prominent interstitial lung markings could reflect interstitial pulmonary edema. No dense airspace consolidation to suggest infection. Assessment/Plan Assessment/Plan Assessment: 1. Elevated troponin - Likely related to demand ischemia / renal failure. No evidence of acute ischemic event at the present time 2. Probable exacerbation of COPD / bronchitis 3. Chronic renal insufficiency on HD 4. Low Mg2+ 5. History of CAD 6. History of AF 7. PPM Recommendations: - Trend troponin until decreasing. - Continue current management as per the medical team - No need to repeat echocardiogram at the present time - Fluid management as per Nephrology. Consult Acknowledgment - Thank you for your consult request.
--- NOTE | 2016-12-29 13:15 | NUR ---
1310: PATIENT'S BLOOD GLUCOSE IS 464 AFTER A SECOND DOSE OF 14 UNITS OF NOVOLOG. MD GUNTER MADE AWARE. WILL CONTINUE TO MONITOR.
[2016-12-29 16:11] VITALS: BP 128/72
--- NOTE | 2016-12-29 16:42 | Cons- Vascular Surgery ---
See Addendum General Information and HPI Consulting Request Date of Consult: 12/29/16 Requested By: BART MARQUEZ MD History of Present Illness: Mr Arias is a 71-year-old man was known to be in his usual state of health three days ago. He has a PMH of hypertension, hyperlipidemia, HFrEF(AICD), COPD (2 L oxygen), ESRD, FREDY, DM, gout, Afib(on coumadin), pulm HTN , multiple hospital admissions, w/ recent admission to [facility] for AECOPD(one wk ago with similar complaints). He came in to [facility] with a chief concern of body aches, productive cough, fever associated with chills 2 days. As per the patient, he had worsening body aches, joint pains 2 days, with involvement of knee joints, restriction in mobility due to joint pains. Also was concerned about worsening cough, continuous, associated with white sputum, 2 days. Fever (feeling hot), occasional, associated with chills, temperature not recorded. No chest pain, palpitations, nausea/vomiting or diarrhea, sick contacts. No change in oxygen requirements recently. Notified by the nurse at the dialysis center, that he had wheezing on examination at the last hemodialysis session. Could not attend hemodialysis session this a.m. No dysuria, or pyuria. Sees Dr. Perry (windows systems admin), Neri Doshi MD (head shipper), Rahul Crandall MD (mother repairer). Vascular team was consulted to assess placement for AV fistula. Allergies/Medications Allergies: Coded Allergies: NO KNOWN ALLERGIES (10/04/16) Home Med List: Albuterol Sulfate 0.63 MG/3 ML VIAL.NEB 1 Vial INH/SALIMA TID PRN COPD (Reported ) Albuterol Sulfate (Proventil Hfa) 90 MCG HFA.AER.AD 2 PUF INH 4 TIMES/DAY PRN COPD (Reported) Allopurinol 100 MG TABLET 1 TAB PO DAILY GOUT Aspirin (Ecotrin*) 81 MG TABLET.DR 1 TAB PO DAILY Heart Health (Reported) Budesonide/Formoterol Fumarate (Symbicort 80-4.5 Mcg Inhaler) 80 MCG-4.5 MCG/ ACTUATION HFA.AER.AD 2 PUF INH BID copd Colchicine 0.6 MG TABLET 1 TAB PO DAILY GOUT (Reported) Ferrous Sulfate 325 MG (65 MG IRON) TABLET 1 TAB PO BID SUPPLEMENT (Reported) Folic Acid 1 MG TABLET 1 MG PO DAILY SUPPLEMENT (Reported) Furosemide (Lasix) 80 MG TABLET 1 TAB PO DAILY CHF (Reported) Guaifenesin (Mucinex) 600 MG TAB.ER.12H 1 TAB PO BID MUCOLYTIC Insulin Glargine, Recombinan (Lantus) 100 U/ML SALIMA 12 UNIT SC DAILY DIABETES (Reported) Insulin Lispro (Humalog) 100 UNIT/ML VIAL diabetes (Reported) Blood sugar Insulin dose < 80mg/dl No dose 80-150 mg/dl No dose 151-200mg/dl One unit 201-250mg/dl Two units 251-300mg/dl Three units 301-350mg/dl Four units 351-400mg/dl Six units Above 400mg/dl Eight units and call MD. Isosorbide Mononitrate (Isosorbide Mononitrate ER) 60 MG TAB.ER.24H 1 TAB PO DAILY HTN (Reported) Loratadine (Claritin) 10 MG TABLET 1 TAB PO DAILY NASAL CONGESTION Metoprolol Tartrate (Lopressor) 50 MG TABLET 1 TAB PO BID HTN (Reported) Mometasone Furoate (Nasonex) 50 MCG SPRAY.PUMP 2 SPRAY NASB DAILY NASAL CONGESTION Omeprazole 20 MG CAPSULE.DR 1 CAP PO DAILY GERD (Reported) Prednisone 10 MG TABLET 1 TAB PO DIRECTED COPD TAKE 4 TABLETS TODAY (12/20) TAKE 3 TABLETS FOR 2 DAYS (12/21-12/22) TAKE 2 TABLETS FOR 2 DAYS (12/22-12/23) TAKE 1 TABLET FOR 2 DAYS (12/24-12/25) Sevelamer Carbonate (Renvela) 800 MG TABLET 1,600 MG PO WM DIALYSIS Simvastatin (Zocor*) 20 MG TABLET 1 TAB PO QPM Cholesterol (Reported) Warfarin Sodium (Coumadin) 5 MG TABLET 1 TAB PO DAILY BLOOD THINNER (Reported ) please dose Coumadin as per INR. 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 Psychosocial History Where Do You Live? Home Who Do You Live With? self Services at Home: None Primary Language: Paraguayan Smoking Status: Former Smoker Functional Ability ADLs Independent: dressing, eating, toileting, bathing. Ambulation: independent IADLs Independent: shopping, housework, finances, food prep, telephone, transportation , medication admin. Exam & Diagnostic Data Vital Signs and I&O Vital Signs Date Time Temp Pulse Resp B/P Pulse O2 O2 Flow FiO2 Ox Delivery Rate 12/29 1611 97.4 70 20 128/72 94 12/29 0840 Room Air Room Air 12/29 0828 97.8 86 20 162/80 94 Room Air 12/29 0057 97.9 74 18 128/72 94 Room Air 12/29 0000 Room Air 12/28 2301 98.1 68 18 140/70 95 Room Air 12/28 2221 68 140/70 12/28 1944 Room Air 12/28 1938 97.5 80 18 130/60 95 Room Air 12/28 1840 97.2 78 16 168/88 99 Room Air Intake & Output 12/29 1600 12/29 0800 12/29 0000 12/28 1600 12/28 0800 12/28 0000 Intake Total 600 120 630 Output Total 675 175 Balance -75 -55 630 Intake, IV 150 Intake, Oral 600 120 480 Number 1 Bowel Movements Output, Urine 675 175 Patient 187 lb 187 lb Weight Physical Exam: General Appearance Alert, Oriented X3, Cooperative, No Acute Distress Skin No Rashes, No Significant Lesion, tiburcio-cath in place on the left side of the chest. No erythema or tenderness HEENT Atraumatic, PERRLA, EOMI Neck Supple, No JVD, No thryomegaly Lymphatic Cervical nl Cardiovascular Regular Rate, Normal S1, Normal S2 Lungs bilateral wheezes, crackles b/l Abdomen Normal Bowel Sounds, Soft, No Tenderness Neurological Normal Speech, Strength at 5/5 X4 Ext, Normal Tone, Sensation Intact, Cranial Nerves 3-12 NL, Reflexes 2+ Extremities No Clubbing, No Cyanosis, Normal Pulses, pedal edema 1+, swelling of b/l knees associated w/ tenderness Assessment/Plan Assessment/Plan THis is a 71 year old male admitted to hospital with fluid overload. Patient is being evaluated by vascular surgery for placement of AV fistula. Venous mapping has been ordered for tomorrow am. This study will be reviewed by Luis Jackson MD and appropriateness of av fistula site will be determined and procedure scheduled. Medicine team will remain primary managers of this patient. Consult Acknowledgment - Thank you for your consult request.
[2016-12-29 22:00] VITALS: BP 138/63
[2016-12-30 07:55] LABS: ABSOLUTE BASOPHIL COUNT 0 /CUMM (0.0-0.2); ABSOLUTE EOSINOPHIL COUNT 0 /CUMM (0.0-0.7); ABSOLUTE GRANULOCYTE CT 6.9 /CUMM (1.4-6.5); ABSOLUTE LYMPH COUNT 0.4 /CUMM (1.2-3.4); ABSOLUTE MONOCYTE COUNT 0.4 /CUMM (0.10-0.60); BASOPHIL % 0 % (0.0-2.0); EOSINOPHIL % 0.1 % (0-5); HEMATOCRIT 32.6 % (42-52); MEAN CORPUSCULAR HGB 28.2 PG (27.0-31.0); MEAN CORPUSCULAR HGB CONC 31.9 G/DL (33.0-37.0); MEAN CORPUSCULAR VOLUME 88.3 FL (80.0-94.0); MEAN PLATELET VOLUME 9.3 FL (7.4-10.4); RBC DISTRIBUTION WIDTH 20.5 % (11.5-14.5); RED BLOOD CELL CT 3.69 /CUMM (4.70-6.10); WHITE BLOOD CELL COUNT 7.7 /CUMM (4.8-10.8)
[2016-12-30 08:33] LABS: GRANULOCYTE % 89.8 % (42.2-75.2); PLATELET COUNT 138 /CUMM (130-400)
[2016-12-30 08:34] VITALS: BP 132/56
--- NOTE | 2016-12-30 08:41 | PN- Housestaff ---
ZEUS ONEILL 12/30/16 0841: Subjective Follow-up For: Hyperkalemia COPD exacerbation End-stage renal disease with fluid overload Gouty arthritis Diabetes mellitus A.fib Tele-Events Since Last Visit: single paced, 59-64 Subjective: seen and examined patient, offers no complaints, Review of Systems Constitutional: Denies: chills, diaphoresis, fever, malaise, weakness, unexplained weight loss. Cardiovascular: Denies: chest pain, edema, orthopena, palpitations, peripheral edema, syncope. Respiratory: Denies: cough, hemoptysis, orthopnea, short of breath, sputum production, stridor, wheezing. Objective Last 24 Hrs of Vital Signs/I&O Vital Signs Date Time Temp Pulse Resp B/P Pulse O2 O2 Flow FiO2 Ox Delivery Rate 12/30 0834 98.0 60 17 132/56 97 Room Air 12/30 0554 95 Room Air 12/30 0000 94 Room Air 12/29 2200 97.4 65 16 138/63 12/29 2149 65 138/63 12/29 2148 65 138/63 12/29 1611 97.4 70 20 128/72 94 Intake & Output 12/30 1600 12/30 0800 12/30 0000 Intake Total 200 600 Output Total 300 4000 Balance -100 -3400 Intake, Oral 200 600 Output, Other 4000 Output, Urine 300 Patient 183 lb 177 lb Weight Physical Exam General Appearance: Alert, Oriented X3, Cooperative, No Acute Distress Cardiovascular: Regular Rate, Normal S1, Normal S2 Lungs: Normal Air Movement, b/l decreased breath sounds Extremities: No Tenderness/Swelling, b/l + pitting edema Current Medications: Current Medications Sig/Johnna Start time Last Medication Dose Route Stop Time Status Admin Acetaminophen 650 MG .STK-MED ONE 12/29 0855 DC PO 12/29 0856 Acetaminophen 650 MG Q6P PRN 12/28 183 AC 12/29 PO 0901 Acetaminophen 1,000 MG Q6P PRN 12/28 1829 AC IV Albuterol Sulfate 3 ML BID 12/29 2199 AC 12/30 INH 0550 Albuterol Sulfate 2 PUF 4 TIMES/DAY PRN 12/28 2029 AC INH Albuterol Sulfate 3 ML Q8P PRN 12/28 2029 DC 12/29 INH 0805 Allopurinol 100 MG DAILY 12/28 2114 AC 12/29 PO 2148 Aspirin Buffered 81 MG DAILY 12/29 1000 AC 12/29 PO 2149 Atorvastatin Calcium 10 MG 1700 12/29 1700 AC 12/29 PO 2150 Budesonide/ 2 PUF BID 12/28 2200 AC 12/30 Formoterol Fumarate INH 0815 Calcitriol 1 MCG MoWeFr 12/30 0800 AC IV Calcium Carbonate 1,250 MG TIDAC 12/29 1200 AC 12/29 PO 2150 Colchicine 600 MCG DAILY 12/28 2115 AC 12/29 PO 2148 Epoetin Guzman 6,000 UNIT MoWeFr 12/30 0800 AC IV Furosemide 80 MG DAILY 12/29 1000 AC 12/29 PO 2149 Guaifenesin 600 MG BID 12/28 2200 AC 12/29 PO 2149 Insulin Aspart 7 UNITS ONCE ONE 12/30 0815 ID 12/30 ME 12/30 0816 0824 Insulin Aspart 0 TIDAC/HS 12/29 0828 AC 12/30 SC 0633 Insulin Detemir 12 UNITS DAILY 12/30 1000 AC 12/30 SC 0814 Isosorbide 60 MG DAILY 12/29 1000 AC 12/29 Mononitrate PO 2148 Magnesium Oxide 400 MG BID 12/29 1000 CAN PO Magnesium Sulfate 1 GM Q2H 12/29 0915 ID 12/29 Dextrose/Water 100 ML IV 12/29 1314 1248 Magnesium Sulfate 1 GM Q2H 12/29 0545 ID 12/29 Dextrose/Water 100 ML IV 12/29 0944 0816 Metoprolol Tartrate 50 MG BID 12/28 2200 AC 12/29 PO 2149 Morphine Sulfate 1 MG Q6-PRN PRN 12/28 1830 AC 12/28 IV 1847 Multivitamins 1 TAB DAILY 12/29 1000 AC 12/29 PO 2149 Omeprazole 20 MG DAILY AC 12/29 0700 AC 12/30 PO 0632 Patient Medication 1 ED .STK-MED ONE 12/29 1340 DC Teaching ED 12/29 1341 Prednisone 40 MG DAILY 12/29 1000 AC 12/29 PO 01/02 0959 2150 Warfarin Sodium 5 MG COUMADIN 1700 ONE 12/30 1700 AC PO 12/30 1701 Warfarin Sodium 5 MG COUMADIN 1700 ONE 12/29 1700 DC 12/29 PO 12/29 1701 2150 Last 24 Hrs of Lab/Satnam Results Last 24 Hrs of Labs/Mics: Laboratory Tests 12/30/16 0620: Anion Gap 14, Estimated GFR 18 L, BUN/Creatinine Ratio 13.2, Glucose 529 *H, Magnesium 2.0, CBC w Diff NO MAN DIFF REQ, RBC 3.69 L, MCV 88.3, MCH 28.2, RDW 20.5 H, MPV 9.3, Gran % 89.8 H, Lymphocytes % 4.8 L, Monocytes % 5.3, Eosinophils % 0.1, Basophils % 0 L, Absolute Granulocytes 6.9 H, Absolute Lymphocytes 0.4 L, Absolute Monocytes 0.4, Absolute Eosinophils 0, Absolute Basophils 0, PUBS MCHC 31.9 L 12/29/16 1000: Troponin I 0.08 Assessment/Plan Assessment: 71-year-old gentleman with past past history of coronary artery disease, CHF status post pacemaker, ESRD (hemodialysis Monday), gout on allopurinol, COPD (2 L) recently admitted for volume overload and COPD exacerbation discharged last week on by mouth antibiotics, missed dialysis yesterday due to joint pain cough. Readmitted for bilateral knee pain and nonproductive cough which is persistent, found to be hyperkalemic required by mouth Kayexalate overnight. Chest x-ray showed mildly prominent interstitial lung markings and no consolidation. Bilateral knee x-ray shows no acute fracture or dislocation and some minimal joint space narrowing with mild bilateral prepatellar soft tissue swelling. Afebrile overnight saturating well on room air. Prob list: Hyperkalemia COPD exacerbation End-stage renal disease with fluid overload Gouty arthritis Diabetes mellitus A.fib Plan On 30mg prednisone, will be discharged on three day taper Continue TRc/nebs patient is to get dialyzed today Vascular on board for AV fistula creation, venous mapping to be done today Continue calcium carbonate, Nephrocaps INR 2.27, 5mg of coumadin to be dosed prior to discharge Continue Lasix, metoprolol, aspirin, Imdur, statin FS elevated 400s-500, will start levemir 12 units, continue to monitor fingersticks. Renal dialysis diet DVT prophylaxis Coumadin Patient is full code discharge after dialysis Problem List: 1. Diabetes 2. Renal insufficiency 3. COPD (chronic obstructive pulmonary disease) Pain Ratin Pain Location: na Pain Goal: Pain 4 or less Pain Plan: current regimen Tomorrow's Labs & Rationales: bep/inr APERGIS MD,YIANNIS 12/30/16 1159: Attending MD Review Statement Attending Statement Attending MD Statement: examined this patient, discuss w/resident/PA/PREPARED FOODS SUPERVISOR, agreed w/resident/PA/PREPARED FOODS SUPERVISOR, reviewed EMR data (avail) Attending Assessment/Plan: Doing well, pain is improved. Dialyzed yesterday, will go again for dialysis today. Will also go for vein mapping for eventual AV-fistula. Hyperglycemic this morning. Plan - Follow vascular, nephrology, endocrine recommendations - Continue home medications - Monitor glucose levels - Anticipated discharge tomorrow
--- NOTE | 2016-12-30 08:46 | PN- Diabetes ---
Assessment/Plan Assessment: 71-year-old man has a PMH of hypertension, hyperlipidemia, CHF, COPD, ESRD on HD, FREDY, DM type 2 with recent HbA1c of 7.0%, gout, Afib(on coumadin) and pulmonary HTN. He came in to [facility] with a chief concern of body aches , productive cough, fever, weight gain and SOB. He received Siolumedrol 125 mg in ER. His troponin was positive ( peak of 0.11). Now he is in Tele and was put on prednisone 40 mg daily. He is on Novolog coverage and his FSGs were 476, 483, 375, 294, 206 and > 500. Patient did have some crackers last night. Plan: 1. restart Levemir 12 units daily given in the morning; 2. adjust Novolog coverage before meals--detail see the inpatient DM order; 3. continue the current Novolog coverage at bedtime; 4. monitor FSGs. will follow. Inpatient Diabetes Orders Before Each Meal: Bolus Insulin: Novolog < 80 mg/dl: no coverage 80-100 mg/dl: 4 units 101-120 mg/dl: 4 units 121-150 mg/dl: 4 units 151-200 mg/dl: 6 units 201-250 mg/dl: 8 units 251-300 mg/dl: 10 units 301-350 mg/dl: 12 units 351-400 mg/dl: 13 units > 400 mg/dl: 14 units Subjective Subjective: His breathing is better; but his glucose level is > 500 this morning. Objective Last 24 Hrs of Vital Signs/I&O Vital Signs Date Time Temp Pulse Resp B/P Pulse O2 O2 Flow FiO2 Ox Delivery Rate 12/30 0834 98.0 60 17 132/56 97 Room Air 12/30 0554 95 Room Air 12/30 0000 94 Room Air 12/29 2200 97.4 65 16 138/63 12/29 2149 65 138/63 12/29 2148 65 138/63 12/29 1611 97.4 70 20 128/72 94 Intake & Output 12/30 1600 12/30 0800 12/30 0000 Intake Total 200 600 Output Total 300 4000 Balance -100 -3400 Intake, Oral 200 600 Output, Other 4000 Output, Urine 300 Patient 183 lb 177 lb Weight Findings Pertinent Lab/Satnam Results: Laboratory Tests 12/30 12/29 0620 1000 Chemistry Sodium (137 - 145 mmol/L) 135 L Potassium (3.5 - 5.1 mmol/L) 4.2 Chloride (98 - 107 mmol/L) 97 L Carbon Dioxide (22 - 30 mmol/L) 23 Anion Gap (5 - 16) 14 BUN (9 - 20 mg/dL) 45 H Creatinine (0.7 - 1.2 mg/dL) 3.4 H Estimated GFR (>60 ml/min) 18 L BUN/Creatinine Ratio (7 - 25 %) 13.2 Glucose (65 - 99 mg/dL) 529 *H Magnesium (1.6 - 2.3 mg/dL) 2.0 Troponin I (<0.11 ng/ml) 0.08 Hematology CBC w Diff NO MAN DIFF REQ WBC (4.8 - 10.8 /CUMM) 7.7 RBC (4.70 - 6.10 /CUMM) 3.69 L Hgb (14.0 - 18.0 G/DL) 10.4 L Hct (42 - 52 %) 32.6 L MCV (80.0 - 94.0 FL) 88.3 MCH (27.0 - 31.0 PG) 28.2 RDW (11.5 - 14.5 %) 20.5 H Plt Count (130 - 400 /CUMM) 138 MPV (7.4 - 10.4 FL) 9.3 Gran % (42.2 - 75.2 %) 89.8 H Lymphocytes % (20.5 - 51.1 %) 4.8 L Monocytes % (1.7 - 9.3 %) 5.3 Eosinophils % (0 - 5 %) 0.1 Basophils % (0.0 - 2.0 %) 0 L Absolute Granulocytes (1.4 - 6.5 /CUMM) 6.9 H Absolute Lymphocytes (1.2 - 3.4 /CUMM) 0.4 L Absolute Monocytes (0.10 - 0.60 /CUMM) 0.4 Absolute Eosinophils (0.0 - 0.7 /CUMM) 0 Absolute Basophils (0.0 - 0.2 /CUMM) 0 PUBS MCHC (33.0 - 37.0 G/DL) 31.9 L
--- NOTE | 2016-12-30 11:14 | PN- Nephrology ---
Assessment/Plan Assessment: 1. ESRD: repeat HD today 2. Volume overload: UF w HD 3. COPD/bronchitis: continue steroids & brnchodilators 4. Hypocalcemia: on calcitriol w HD, po CaCO3, & 3.0 Ca bath Suggestion: 1. HD w UF today 2. HD again Mon 3. AVF creation once stable Subjective Subjective: Less SOB Still coughing Seen bty vasc surg w venous mapping done for AVF creation Objective Vital Signs and I&Os Vital Signs Date Time Temp Pulse Resp B/P Pulse O2 O2 Flow FiO2 Ox Delivery Rate 12/30 0834 98.0 60 17 132/56 97 Room Air 12/30 0554 95 Room Air 12/30 0000 94 Room Air 12/29 2200 97.4 65 16 138/63 12/29 2149 65 138/63 12/29 2148 65 138/63 12/29 1611 97.4 70 20 128/72 94 Intake & Output 12/30 1600 12/30 0400 12/29 1600 12/29 0400 12/28 1600 12/28 0400 Intake Total 200 600 720 630 Output Total 300 4000 850 Balance -100 -3400 -130 630 Intake, IV 150 Intake, Oral 200 600 720 480 Number 1 Bowel Movements Output, Other 4000 Output, Urine 300 850 Patient 183 lb 177 lb 187 lb 187 lb Weight Physical Exam General Appearance: well developed/nourished, no apparent distress, alert Head: atraumatic, normal appearance Neck: R IJ HD cath Respiratory: no respiratory distress, quiet respiration, lungs clear Cardiovascular: regular rate/rhythm Abdomen: soft, non-tender, no organomegaly Extremities: swelling Neurologic/Psychiatric: awake, alert, oriented x 3 Current Medications: Current Medications Sig/Johnna Start time Last Medication Dose Route Stop Time Status Admin Acetaminophen 650 MG Q6P PRN 12/28 183 AC 12/29 PO 0901 Acetaminophen 1,000 MG Q6P PRN 12/28 183 AC IV Albuterol Sulfate 3 ML BID 12/29 2199 AC 12/30 INH 0550 Albuterol Sulfate 2 PUF 4 TIMES/DAY PRN 12/28 2030 AC INH Allopurinol 100 MG DAILY 12/28 2114 AC 12/29 PO 2147 Aspirin Buffered 81 MG DAILY 12/29 1000 AC 12/29 PO 2148 Atorvastatin Calcium 10 MG 1700 12/29 1700 AC 12/29 PO 2150 Budesonide/ 2 PUF BID 12/28 220 AC 12/30 Formoterol Fumarate INH 0815 Calcitriol 1 MCG MoWeFr 12/30 0800 AC IV Calcium Carbonate 1,250 MG TIDAC 12/29 1200 AC 12/29 PO 2150 Colchicine 600 MCG DAILY 12/28 211 AC 12/29 PO 2148 Epoetin Guzman 6,000 UNIT MoWeFr 12/30 0800 AC IV Furosemide 80 MG DAILY 12/29 1000 AC 12/29 PO 2149 Guaifenesin 600 MG BID 12/28 2200 AC 12/29 PO 2149 Insulin Aspart 7 UNITS ONCE ONE 12/30 0815 DC 12/30 SC 12/30 0816 0824 Insulin Aspart 0 TIDAC/HS 12/29 0828 12/30 SC 0633 Insulin Detemir 12 UNITS DAILY 12/30 1000 AC 12/30 SC 0814 Isosorbide 60 MG DAILY 12/29 1000 AC 12/29 Mononitrate PO 2148 Magnesium Sulfate 1 GM Q2H 12/29 0915 AK 12/29 Dextrose/Water 100 ML IV 12/29 1314 1248 Metoprolol Tartrate 50 MG BID 12/28 220 AC 12/29 PO 2149 Morphine Sulfate 1 MG Q6-PRN PRN 12/28 1830 12/28 IV 1847 Multivitamins 1 TAB DAILY 12/29 1000 12/29 PO 2149 Omeprazole 20 MG DAILY AC 12/29 0700 AC 12/30 PO 0632 Patient Medication 1 ED .STK-MED ONE 12/29 1340 DC Teaching ED 12/29 1341 Prednisone 30 MG DAILY 12/29 1000 AC 12/29 PO 01/02 0959 2150 Warfarin Sodium 5 MG COUMADIN 1700 ONE 12/30 1700 CAN PO 12/30 1701 Warfarin Sodium 5 MG COUMADIN 1700 ONE 12/29 1700 DC 12/29 PO 12/29 1701 2150 Results Pertinent Lab Results: Laboratory Tests 12/30 12/29 0620 1000 Chemistry Sodium (137 - 145 mmol/L) 135 L Potassium (3.5 - 5.1 mmol/L) 4.2 Chloride (98 - 107 mmol/L) 97 L Carbon Dioxide (22 - 30 mmol/L) 23 Anion Gap (5 - 16) 14 BUN (9 - 20 mg/dL) 45 H Creatinine (0.7 - 1.2 mg/dL) 3.4 H Estimated GFR (>60 ml/min) 18 L BUN/Creatinine Ratio (7 - 25 %) 13.2 Glucose (65 - 99 mg/dL) 529 *H Magnesium (1.6 - 2.3 mg/dL) 2.0 Troponin I (<0.11 ng/ml) 0.08 Hematology CBC w Diff NO MAN DIFF REQ WBC (4.8 - 10.8 /CUMM) 7.7 RBC (4.70 - 6.10 /CUMM) 3.69 L Hgb (14.0 - 18.0 G/DL) 10.4 L Hct (42 - 52 %) 32.6 L MCV (80.0 - 94.0 FL) 88.3 MCH (27.0 - 31.0 PG) 28.2 RDW (11.5 - 14.5 %) 20.5 H Plt Count (130 - 400 /CUMM) 138 MPV (7.4 - 10.4 FL) 9.3 Gran % (42.2 - 75.2 %) 89.8 H Lymphocytes % (20.5 - 51.1 %) 4.8 L Monocytes % (1.7 - 9.3 %) 5.3 Eosinophils % (0 - 5 %) 0.1 Basophils % (0.0 - 2.0 %) 0 L Absolute Granulocytes (1.4 - 6.5 /CUMM) 6.9 H Absolute Lymphocytes (1.2 - 3.4 /CUMM) 0.4 L Absolute Monocytes (0.10 - 0.60 /CUMM) 0.4 Absolute Eosinophils (0.0 - 0.7 /CUMM) 0 Absolute Basophils (0.0 - 0.2 /CUMM) 0 PUBS MCHC (33.0 - 37.0 G/DL) 31.9 L 12/29 12/28 12/28 0415 2145 2145 Chemistry Sodium (137 - 145 mmol/L) 138 139 Potassium (3.5 - 5.1 mmol/L) 5.6 H 4.5 Chloride (98 - 107 mmol/L) 102 103 Carbon Dioxide (22 - 30 mmol/L) 21 L 21 L Anion Gap (5 - 16) 15 15 BUN (9 - 20 mg/dL) 67 H 62 H Creatinine (0.7 - 1.2 mg/dL) 4.9 H 4.8 H Estimated GFR (>60 ml/min) 12 L 12 L BUN/Creatinine Ratio (7 - 25 %) 13.7 12.9 Lactic Acid (0.7 - 2.1 mmol/L) 1.7 Uric Acid (3.5 - 8.5 mg/dL) 6.0 Magnesium (1.6 - 2.3 mg/dL) 1.5 L Troponin I (<0.11 ng/ml) 0.12 *H 0.11 *H TSH (0.270 - 4.200 uIU/mL) 2.670 Free T4 (0.78 - 2.44 ng/dL) 0.89 Coagulation PT (9.4 - 12.5 SEC) 16.8 H INR (0.90 - 1.17) 1.61 H Hematology CBC w Diff NO MAN DIFF REQ WBC (4.8 - 10.8 /CUMM) 10.9 H RBC (4.70 - 6.10 /CUMM) 3.82 L Hgb (14.0 - 18.0 G/DL) 10.6 L Hct (42 - 52 %) 33.6 L MCV (80.0 - 94.0 FL) 88.1 MCH (27.0 - 31.0 PG) 27.8 RDW (11.5 - 14.5 %) 21.0 H Plt Count (130 - 400 /CUMM) 132 MPV (7.4 - 10.4 FL) 9.3 Gran % (42.2 - 75.2 %) 94.2 H Lymphocytes % (20.5 - 51.1 %) 3.7 L Monocytes % (1.7 - 9.3 %) 1.7 Eosinophils % (0 - 5 %) 0.4 Basophils % (0.0 - 2.0 %) 0 L Absolute Granulocytes (1.4 - 6.5 /CUMM) 10.3 H Absolute Lymphocytes (1.2 - 3.4 /CUMM) 0.4 L Absolute Monocytes (0.10 - 0.60 /CUMM) 0.2 Absolute Eosinophils (0.0 - 0.7 /CUMM) 0 Absolute Basophils (0.0 - 0.2 /CUMM) 0 PUBS MCHC (33.0 - 37.0 G/DL) 31.6 L 12/28 12/28 12/28 12/28 1752 1558 1538 1538 Chemistry Hemoglobin A1c (<5.7) 7.0 H Lactic Acid (0.7 - 2.1 mmol/L) 1.7 Coagulation PT (9.4 - 12.5 SEC) 14.8 H INR (0.90 - 1.17) 1.41 H APTT (25 - 37 SEC) 34 Toxicology Methadone Screen Cancelled Barbiturate Screen Cancelled Ur Phencyclidine Scrn Cancelled Amphetamines Screen Cancelled U Benzodiazepines Scrn Cancelled Urine Cocaine Screen Cancelled Urine Cannabis Screen Cancelled Urines Urine Color Cancelled Urine Clarity Cancelled Urine pH Cancelled Ur Specific Floyd Cancelled Urine Protein Cancelled Urine Ketones Cancelled Urine Nitrite Cancelled Urine Bilirubin Cancelled Urine Urobilinogen Cancelled Ur Leukocyte Esterase Cancelled Ur Microscopic Cancelled Urine Hemoglobin Cancelled Urine Glucose Cancelled 12/28 1538 Chemistry Sodium (137 - 145 mmol/L) 140 Potassium (3.5 - 5.1 mmol/L) 6.0 *H Chloride (98 - 107 mmol/L) 104 Carbon Dioxide (22 - 30 mmol/L) 19 L Anion Gap (5 - 16) 17 H BUN (9 - 20 mg/dL) 60 H Creatinine (0.7 - 1.2 mg/dL) 4.4 H Estimated GFR (>60 ml/min) 13 L BUN/Creatinine Ratio (7 - 25 %) 13.6 Glucose (65 - 99 mg/dL) 109 H Calcium (8.4 - 10.2 mg/dL) 8.2 L Magnesium (1.6 - 2.3 mg/dL) 1.5 L Total Bilirubin (0.2 - 1.3 mg/dL) 0.7 AST (17 - 59 U/L) 27 ALT (21 - 72 U/L) 32 Alkaline Phosphatase (< 127 U/L) 87 Troponin I (<0.11 ng/ml) 0.07 Ehm-H-[id number] Pept (<125 pg/mL) 12522 H Total Protein (6.3 - 8.2 g/dL) 6.1 L Albumin (3.5 - 5.0 g/dL) 3.6 Globulin (1.9 - 4.2 gm/dL) 2.5 Albumin/Globulin Ratio (1.1 - 2.2 %) 1.4 Hematology CBC w Diff NO MAN DIFF REQ WBC (4.8 - 10.8 /CUMM) 12.9 H RBC (4.70 - 6.10 /CUMM) 4.13 L Hgb (14.0 - 18.0 G/DL) 11.6 L Hct (42 - 52 %) 36.0 L MCV (80.0 - 94.0 FL) 87.2 MCH (27.0 - 31.0 PG) 28.0 RDW (11.5 - 14.5 %) 21.1 H Plt Count (130 - 400 /CUMM) 140 MPV (7.4 - 10.4 FL) 8.4 Gran % (42.2 - 75.2 %) 84.4 H Lymphocytes % (20.5 - 51.1 %) 6.9 L Monocytes % (1.7 - 9.3 %) 6.9 Eosinophils % (0 - 5 %) 1.3 Basophils % (0.0 - 2.0 %) 0.5 Absolute Granulocytes (1.4 - 6.5 /CUMM) 10.9 H Absolute Lymphocytes (1.2 - 3.4 /CUMM) 0.9 L Absolute Monocytes (0.10 - 0.60 /CUMM) 0.9 H Absolute Eosinophils (0.0 - 0.7 /CUMM) 0.2 Absolute Basophils (0.0 - 0.2 /CUMM) 0.1 PUBS MCHC (33.0 - 37.0 G/DL) 32.2 L Imaging/Other Studies: CXR: IMPRESSION: Limited exam secondary to pulmonary hypoinflation and patient body habitus. Moderate cardiomegaly with mild central venous congestion. No overt alveolar edema. Mildly prominent interstitial lung markings could reflect interstitial pulmonary edema. No dense airspace consolidation to suggest infection.
--- NOTE | 2016-12-30 11:36 | NUR ---
HELD AM PO MEDS PER MD ONEILL BECAUSE PATIENT IS GOING TO DIALYSIS TODAY. WILL ADMINISTER DAILY MEDS AFTER PT COMES BACK FROM DIALYSIS.
--- NOTE | 2016-12-30 12:43 | ULTRASOUND REPORT ---
EXAMINATION: US VENOUS MAPPING PRIOR TO FISTULA CREATION, BILATERAL CLINICAL INFORMATION: Renal failure. COMPARISON: None TECHNIQUE: Bilateral upper extremity ultrasound was performed. Color-flow Doppler imaging was utilized. The axillary veins, subclavian veins, internal jugular veins and brachial veins were analyzed. The basilic vein and the cephalic vein were measured in size as well as depth. FINDINGS: Size below is listed in centimeters and depth is listed in centimeters (after size). Both internal jugular veins as well as both subclavian veins, axillary veins and brachial veins are patent. RIGHT ARM: Basilic Vein: Upper arm: 0.6 cm (0.8 cm) Mid upper arm: 0.5 cm (0.9 cm) Distal upper arm: 0.3 cm (0.6 cm) Proximal lower arm: 0.2 cm (0.2 cm) There is a 4.5 cm length of basilic vein seen which is greater than 4 mm in size. Cephalic Vein: Proximal at shoulder: 0.2 cm (0.5 cm) Proximal upper arm: 0.2 cm (0.6 cm) Mid upper arm: 0.3 cm (0.4 cm) Distal upper arm 0.2 cm (0.3 cm) Proximal lower arm: 0.2 cm (0.3 cm) Mid lower arm: 0.2 cm (0.3 cm) At wrist: 0.1 cm (0.08 cm). There is a 3.2 cm segment with no branches seen. LEFT ARM: Basilic Vein: Proximal upper arm: 0.5 cm (1.1 cm) Mid upper arm: 0.3 cm (0.7 cm) Distal upper arm: 0.3 cm (0.5 cm) Proximal lower arm: 0.1 cm (0.2 cm) The length of vein which is greater than 4 mm in diameter measures 4.32 cm in length. Cephalic Vein: Proximal at shoulder: 0.2 cm (0.4 cm) Proximal upper arm: 0.1 cm (0.2 cm) Mid upper arm: 0.1 cm (0.3 cm) Distal upper arm: 0.2 cm (0.3 cm) Proximal lower arm 0.2 cm (0.3 cm) Mid lower arm: 0.1 cm (0.2 cm) At wrist: 0.1 cm (0.1 cm) There is a 2.01 cm in length without branches seen. IMPRESSION: Bilateral arm venous mapping as described above.
--- NOTE | 2016-12-30 13:01 | Patient Discharge Instructions ---
Discharge Instructions General Discharge Information You were seen/treated for: lower extremity swelling Special Instructions: please follow up with pcp within one week of discharge please follow up with vasular regarding AVF creation please follow current sliding scale while on prednisone till jan 02 and then swtich to your previous sliding scale. please attend the dialysis sessions as instructed Acute Coronary Syndrome Inclusion Criteria At DC or during hospital stay patient has or had the following: ACS DIAGNOSIS No Discharge Core Measures Meds if any: Prescribed or Continued at Discharge Meds if any: NOT Prescribed or Continued at Discharge Congestive Heart Failure Inclusion Criteria At DC or during hospital stay patient has or had the following: CHF DIAGNOSIS No Discharge Core Measures Meds if any: Prescribed or Continued at Discharge Meds if any: NOT Prescribed or Continued at Discharge Cerebrovascular accident Inclusion Criteria At DC or during hospital stay patient has or had the following: CVA/TIA Diagnosis No Discharge Core Measures Meds if any: Prescribed or Continued at Discharge Meds if any: NOT Prescribed or Continued at Discharge Venous thromboembolism Inclusion Criteria VTE Diagnosis No VTE Type NONE VTE Confirmed by (Test) NONE Discharge Core Measures - Per Current guidelines, there needs to be overlap - treatment for the first 5 days of Warfarin therapy. - If discharged on Warfarin prior to 5 days of - overlap therapy, the patient will need to be - assessed for post discharge needs including - *Post discharge parental anticoagulation - *Warfarin and/or parental anticoagulation education - *Follow up date to check INR post discharge At least 5 days overlap therapy as Inpatient No Meds if any: Prescribed or Continued at Discharge Note: Overlap Therapy is Warfarin and Anticoagulant Meds if any: NOT Prescribed or Continued at Discharge
[2016-12-30] MEDS ORDERED: PREDNISONE10 M2 PO (13:24)
[2016-12-30 13:45] LABS: PT 23.6 SEC (9.4-12.5)
[2016-12-30] MEDS ORDERED: CALCIUM CARBON500 M2 PO (15:07)
[2016-12-30] MEDS ORDERED: CALCITRIOL1 MCG/1 ML IV (15:07)
[2016-12-30] MEDS ORDERED: COLCHICINE0.6 M2 PO (15:09)
[2016-12-30] MEDS ORDERED: HUMALOG100 UNIT/2 SC ×2 (15:59→17:03)
[2016-12-30 19:14] VITALS: BP 157/53
[2016-12-30 23:26] VITALS: BP 140/54
[2016-12-31 07:51] VITALS: BP 148/70
[2016-12-31 08:37] VITALS: BP 148/70
--- NOTE | 2016-12-31 09:20 | PN- Housestaff ---
ZEUS ONEILL 12/31/16 0919: Subjective Follow-up For: Hyperkalemia COPD exacerbation End-stage renal disease with fluid overload Gouty arthritis Diabetes mellitus A.fib Subjective: seen and examined patient, offers no complaints, Review of Systems Constitutional: Denies: chills, diaphoresis, fever, malaise, weakness, unexplained weight loss. Cardiovascular: Denies: chest pain, edema, orthopena, palpitations, peripheral edema, syncope. Respiratory: Denies: cough, hemoptysis, orthopnea, short of breath, sputum production, stridor, wheezing. Objective Last 24 Hrs of Vital Signs/I&O Vital Signs Date Time Temp Pulse Resp B/P Pulse O2 O2 Flow FiO2 Ox Delivery Rate 12/31 0952 98 Room Air 12/31 0837 68 148/70 12/31 0800 Room Air 12/31 0751 98.0 62 16 148/70 98 Room Air 12/30 2326 97.6 70 18 140/54 96 Room Air 12/30 1914 97.9 67 18 157/53 95 Room Air Intake & Output 12/31 1600 12/31 0800 12/31 0000 Intake Total 250 250 Output Total 50 Balance 200 250 Intake, IV 10 10 Intake, Oral 240 240 Output, Urine 50 Patient 181 lb Weight Physical Exam General Appearance: Alert, Oriented X3, Cooperative, No Acute Distress Cardiovascular: Regular Rate, Normal S1, Normal S2 Lungs: Clear to Auscultation, Normal Air Movement Abdomen: Soft Current Medications: Current Medications Sig/Johnna Start time Last Medication Dose Route Stop Time Status Admin Acetaminophen 650 MG Q6P PRN 12/28 1830 AC 12/29 PO 0901 Acetaminophen 1,000 MG Q6P PRN 12/28 1830 AC IV Albuterol Sulfate 3 ML BID 12/29 2199 AC 12/31 INH 0946 Albuterol Sulfate 2 PUF 4 TIMES/DAY PRN 12/28 2030 AC INH Allopurinol 100 MG DAILY 12/28 2115 AC 12/31 PO 0835 Aspirin Buffered 81 MG DAILY 12/29 1000 AC 12/31 PO 0837 Atorvastatin Calcium 10 MG 1700 12/29 1700 AC 12/30 PO 2019 Budesonide/ 2 PUF BID 12/28 2199 AC 12/31 Formoterol Fumarate INH 0840 Calcitriol 1 MCG MoWeFr PRN 12/30 1515 AC IV Calcitriol 1 MCG MoWeFr 12/30 0800 CAN IV Calcium Carbonate 1,250 MG TIDAC 12/29 1200 AC 12/31 PO 0837 Colchicine 600 MCG DAILY 12/28 2115 AC 12/31 PO 0835 Epoetin Guzman 6,000 UNIT MoWeFr PRN 12/30 1515 AC IV Epoetin Guzman 6,000 UNIT MoWeFr 12/30 0800 CAN IV Furosemide 80 MG DAILY 12/29 1000 AC 12/31 PO 0837 Guaifenesin 600 MG BID 12/28 220 AC 12/31 PO 0837 Insulin Aspart 0 TIDAC/HS 12/29 0828 AC 12/31 SC 0838 Insulin Detemir 12 UNITS DAILY 12/30 1000 AC 12/31 SC 0839 Isosorbide 60 MG DAILY 12/29 1000 AC 12/31 Mononitrate PO 0837 Metoprolol Tartrate 50 MG BID 12/28 2200 AC 12/31 PO 0837 Morphine Sulfate 1 MG Q6-PRN PRN 12/28 1830 AC 12/28 IV 1847 Multivitamins 1 TAB DAILY 12/29 1000 AC 12/31 PO 0838 Omeprazole 20 MG DAILY AC 12/29 0700 AC 12/31 PO 0625 Prednisone 20 MG DAILY 12/29 1000 AC 12/31 PO 01/02 0959 0838 Warfarin Sodium 5 MG COUMADIN 1700 ONE 12/30 1700 DC 12/30 PO 12/30 1701 2019 Last 24 Hrs of Lab/Satnam Results Last 24 Hrs of Labs/Mics: Laboratory Tests 12/30/16 1328: PT 23.6 H, INR 2.27 H Assessment/Plan Assessment: 71-year-old gentleman with past past history of coronary artery disease, CHF status post pacemaker, ESRD (hemodialysis Monday), gout on allopurinol, COPD (2 L) recently admitted for volume overload and COPD exacerbation discharged last week on by mouth antibiotics, missed dialysis yesterday due to joint pain cough. Readmitted for bilateral knee pain and nonproductive cough which is persistent, found to be hyperkalemic required by mouth Kayexalate overnight. Chest x-ray showed mildly prominent interstitial lung markings and no consolidation. Bilateral knee x-ray shows no acute fracture or dislocation and some minimal joint space narrowing with mild bilateral prepatellar soft tissue swelling. Afebrile overnight saturating well on room air. Medically stable for discharge today Prob list: Hyperkalemia COPD exacerbation End-stage renal disease with fluid overload Gouty arthritis Diabetes mellitus A.fib Plan On 30mg prednisone, will be discharged on three day taper Continue TRc/nebs Will follow-up with Vascular on board for AV fistula creation, Continue calcium carbonate, Nephrocaps Patient will take his Coumadin at home this evening Continue Lasix, metoprolol, aspirin, Imdur, statin FS elevated 400s-500, will be discharged on current insulin sliding scale and was instructed to resume his old sliding scale after his prednisone taper. Will follow-up with Dr. davila as outpatient Renal dialysis diet DVT prophylaxis Coumadin Patient is full code Problem List: 1. Acute gouty arthropathy 2. End-stage renal disease on hemodialysis Pain Ratin Pain Location: Not Applicable Pain Goal: Pain 4 or less Pain Plan: Current regimen Tomorrow's Labs & Rationales: None required [address],PHUONG 12/31/16 1126: Attending MD Review Statement Attending Statement Attending MD Statement: examined this patient, discuss w/resident/PA/NURSERY TECHNICIAN, agreed w/resident/PA/NURSERY TECHNICIAN, reviewed EMR data (avail), discussed with nursing, discussed with case mgmt, amended to note Attending Assessment/Plan: Patient seen and examined. Ambulating freely around the room. Not in any distress. He was scheduled to go home yesterday however he could not leave because his dialysis session was completed late. He offers no complaints today and is eager to go home. His blood glucose levels are elevated. The 400s. Apparently this is typical when he is on systemic steroid therapy. He is anticipated to be weaned off steroids after which blood glucose levels should improve he has met with endocrinology service and is aware of how to manage his insulin regimen. He will be on long-acting insulin while on prednisone therapy. He will stop this and taper down his sliding screw coverage was he completes his prednisone therapy. Patient verbalized understanding. Is medically stable to be discharged home today.
--- NOTE | 2016-12-31 10:08 | PN- Diabetes ---
Assessment/Plan Assessment: 71-year-old man has a PMH of hypertension, hyperlipidemia, CHF, COPD, ESRD on HD, FREDY, DM type 2 with recent HbA1c of 7.0%, gout, Afib(on coumadin) and pulmonary HTN. He came in to [facility] with a chief concern of body aches , productive cough, fever, weight gain and SOB. He received Siolumedrol 125 mg in ER. His troponin was positive ( peak of 0.11). Now he is in Tele and was put on prednisone 40 mg daily. The patient is on Levophed 12 units once a day and sliding-scale NovoLog before meals with a separate sliding scale at bedtime. His blood sugars yesterday were 217, 213, 336. This morning the sugar was 413 Plan: Patient sugar is high this morning. He is on prednisone which is driving the elevation on his glucose. I feel the patient can go home on his present insulin regimen. He is well aware of how to manage his sugars at home and can call the office if there are any problems. He will get off his long-acting insulin which is Lantus at home once he is off the prednisone. Also his dosages of his fast acting insulin which is Humalog at home will be tapered when he finishes his prednisone. Subjective Subjective: Feels okay Review of Systems Constitutional: Denies: chills, fever. Cardiovascular: Denies: chest pain. Respiratory: Reports: wheezing. Gastrointestinal: Denies: abdominal pain. Skin: Reports: no symptoms. Objective Last 24 Hrs of Vital Signs/I&O Vital Signs Date Time Temp Pulse Resp B/P Pulse O2 O2 Flow FiO2 Ox Delivery Rate 12/31 0952 98 Room Air 12/31 0837 68 14870 12/31 0751 98.0 62 16 148 98 Room Air 12/30 2326 97.6 70 18 140/54 96 Room Air 12/30 1914 97.9 67 18 157/53 95 Room Air 12/30 1117 95 Room Air Room Air Intake & Output 12/31 1600 12/31 0800 12/31 0000 Intake Total 250 250 Output Total 50 Balance 200 250 Intake, IV 10 10 Intake, Oral 240 240 Output, Urine 50 Patient 181 lb Weight Vital Signs Date Time Temp Pulse Resp B/P Pulse O2 O2 Flow FiO2 Ox Delivery Rate 12/31 0952 98 Room Air 12/31 0837 68 148/70 12/31 0751 98.0 62 16 148/70 98 Room Air 12/30 2326 97.6 70 18 140/54 96 Room Air 12/30 1914 97.9 67 18 157/53 95 Room Air 12/30 1117 95 Room Air Room Air Intake & Output 12/31 1600 12/31 0800 12/31 0000 Intake Total 250 250 Output Total 50 Balance 200 250 Intake, IV 10 10 Intake, Oral 240 240 Output, Urine 50 Patient 181 lb Weight Physical Exam General Appearance: well developed/nourished, alert, awake Neck: normal inspection Respiratory: wheezing (mild to moderate) Cardiovascular: regular rate/rhythm Abdomen: normal bowel sounds Extremities: normal inspection Skin: intact Current Medications: Current Medications Sig/Johnna Start time Last Medication Dose Route Stop Time Status Admin Acetaminophen 650 MG Q6P PRN 12/28 1830 AC 12/29 PO 0901 Acetaminophen 1,000 MG Q6P PRN 12/28 183 AC IV Albuterol Sulfate 3 ML BID 12/29 2199 AC 12/31 INH 0946 Albuterol Sulfate 2 PUF 4 TIMES/DAY PRN 12/28 2030 AC INH Allopurinol 100 MG DAILY 12/28 2114 AC 12/31 PO 0835 Aspirin Buffered 81 MG DAILY 12/29 1000 AC 12/31 PO 0837 Atorvastatin Calcium 10 MG 1700 12/29 1700 AC 12/30 PO 2019 Budesonide/ 2 PUF BID 12/28 2199 AC 12/31 Formoterol Fumarate INH 0840 Calcitriol 1 MCG MoWeFr PRN 12/30 1515 AC IV Calcitriol 1 MCG MoWeFr 12/30 0800 CAN IV Calcium Carbonate 1,250 MG TIDAC 12/29 1200 AC 12/31 PO 0837 Colchicine 600 MCG DAILY 12/28 2114 AC 12/31 PO 0835 Epoetin Guzman 6,000 UNIT MoWeFr PRN 12/30 1515 AC IV Epoetin Guzman 6,000 UNIT MoWeFr 12/30 0800 CAN IV Furosemide 80 MG DAILY 12/29 1000 AC 12/31 PO 0837 Guaifenesin 600 MG BID 12/28 2199 AC 12/31 PO 0837 Insulin Aspart 0 TIDAC/HS 12/29 0828 AC 12/31 SC 0838 Insulin Detemir 12 UNITS DAILY 12/30 1000 AC 12/31 SC 0839 Isosorbide 60 MG DAILY 12/29 1000 AC 12/31 Mononitrate PO 0837 Metoprolol Tartrate 50 MG BID 12/28 2200 AC 12/31 PO 0837 Morphine Sulfate 1 MG Q6-PRN PRN 12/28 1830 AC 12/28 IV 1847 Multivitamins 1 TAB DAILY 12/29 1000 AC 12/31 PO 0838 Omeprazole 20 MG DAILY AC 12/29 0700 AC 12/31 PO 0625 Prednisone 20 MG DAILY 12/29 1000 AC 12/31 PO 01/02 0959 0838 Warfarin Sodium 5 MG COUMADIN 1700 ONE 12/30 1700 DC 12/30 PO 12/30 170 2019 Findings Pertinent Lab/Satnam Results: Laboratory Tests 12/30 1328 Coagulation PT (9.4 - 12.5 SEC) 23.6 H INR (0.90 - 1.17) 2.27 H
--- NOTE | 2017-01-14 18:36 | Discharge Summary ---
See Addendum Visit Information Visit Dates Admission Date: 12/28/16 Discharge Date: 12/31/16 Hospital Course Course Attending Physician: BART MARQUEZ MD Primary Care Physician: YSABEL DE LA TORRE MD Hospital Course: 71 year morbidly obese gentleman with h/o CAD, chronic systolic CHF, FREDY not on CPAP, HTN, COPD on PRN 2L O2, severe pulmonary hypertension, MGUS (IgG kappa), T2DM, gout, ESRD on dialysis (M/W/F), chronic anemia, PAF fib on coumadin, s/p PPM-AICD, recently admitted to [facility] (12/17-12/20) for COPDE on prednisone taper that he completed 1 day prior, admitted to [facility] for subjective fever/chills, severe b/l knee pains, weakness and inability to walk. He missed his dialysis session on day of admission due above symptoms Labs on admission: WBC 12.9, INR 1.41, K 6.0, bicarb 19, AG 17, BUN 60, creat 4.4, Mag 1.5, trop 0.07, proBNP 05048 CXR: moderate cardiomegaly with mild central venous congestion. Mildly prominent interstitial lung markings interstitial pulmonary edema. Echo (2016): EF 50-55%, moderate aortic stenosis with JUJU of 1.1 sq.cm, pulm HTN. EKG: Paced. Rapid flu test negative. Admitted to the telemetry floor and the following issues were addressed: Hyperkalemia in the setting of renal failure. Responded to kayexalate, insulin-dextrose and calcium gluconate. COPD exacerbation No evidence of pneumonia. Was treated with IV steroids with rapid prednisone taper. Watched off antibiotics End-stage renal disease with fluid overload Nephrology consulted for dialysis. Continued calcium carbonate and Nephrocaps. Vascular was consulted for outpatient AV fistula creation and Venous was mapping done. Gouty arthritis Bilateral knee pain (R>L). Reported that he had not taken colchicine or allopurinol for few days. Knee Xrays revealed mild bilateral prepatellar soft tissue swelling, no fracture or dislocation, no suprapatellar knee joint effusion. Minimal joint space narrowing bilateral medial and lateral tibiofemoral compartments. Diabetes mellitus Endocrinology was consulted. His sugars continued to be high and was thought to be secondary to steriod use. He was discharged inpatient insulin sliding scale regimen and was instructed to revert back to his home insulin sliding scale regimen once the prednisone taper was done. Will follow-up with Dr. davila as outpatient. PAF/elevated troponins Cardiology was consulted, elevated troponins were thought to be related to demand ischemia in the setting of renal failure and were trended down. No evidence of acute ischemia. Subtherapeutic INR on admission. Coumadin was dosed daily based on INR. His home meds of Lasix, Metoprolol, Aspirin, Imdur and Statin were continued. Was given Renal dialysis diet DVT prophylaxis with Coumadin Patient was full code Complications: none Allergies: Coded Allergies: NO KNOWN ALLERGIES (10/04/16) Significant Procedures: SERVICE DATE: 12/28/16 EXAM TYPE: RAD - XRY-CHEST XRAY, PA AND LATERAL FINDINGS: AP and lateral views of the chest demonstrate pulmonary hypoinflation and bronchovascular crowding. There is a right jugular dual-lumen catheter, with the catheter tip visualized terminating within the right atrium. Also noted is a left chest wall ICD, with leads visualized in the expected region of the right atrium and right ventricle. There are median sternotomy wires and findings suggestive of prior CABG. The cardiac silhouette is moderately enlarged. There is mild central venous congestion, without overt pulmonary edema. There is no definite airspace consolidation to suggest lobar pneumonia. No pleural effusions or pneumothoraces are identified. Mildly prominent bilateral interstitial lung markings could reflect bronchovascular crowding versus interstitial pulmonary edema. IMPRESSION: Limited exam secondary to pulmonary hypoinflation and patient body habitus. Moderate cardiomegaly with mild central venous congestion. No overt alveolar edema. Mildly prominent interstitial lung markings could reflect interstitial pulmonary edema. No dense airspace consolidation to suggest infection SERVICE DATE: 12/28/16 EXAM TYPE: RAD - XRY-KNEE, LEFT; XRY-KNEE, RIGHT FINDINGS: Left knee: No acute fracture or dislocation of the left knee. Minimal joint space narrowing within the medial and tibiofemoral compartments. Incidental note is made of a small enthesophytes along the insertion point of the quadricep tendon. There is mild prepatellar soft tissue swelling. No significant suprapatellar knee joint effusion is identified. Right knee: No acute fracture or dislocation of the right knee. Minimal joint space narrowing within the medial and lateral tibiofemoral compartments. No significant suprapatellar knee joint effusion. Mild prepatellar soft tissue swelling. IMPRESSION: Mild bilateral prepatellar soft tissue swelling. Otherwise, no acute fracture or dislocation of the bilateral knees. No significant suprapatellar knee joint effusion. There is minimal joint space narrowing involving the bilateral medial and lateral tibiofemoral compartments. SERVICE DATE: 12/30/16 EXAM TYPE: US - VENOUS MAPPING INDINGS: Size below is listed in centimeters and depth is listed in centimeters (after size). Both internal jugular veins as well as both subclavian veins, axillary veins and brachial veins are patent. RIGHT ARM: Basilic Vein: Upper arm: 0.6 cm (0.8 cm) Mid upper arm: 0.5 cm (0.9 cm) Distal upper arm: 0.3 cm (0.6 cm) Proximal lower arm: 0.2 cm (0.2 cm) There is a 4.5 cm length of basilic vein seen which is greater than 4 mm in size. Cephalic Vein: Proximal at shoulder: 0.2 cm (0.5 cm) Proximal upper arm: 0.2 cm (0.6 cm) Mid upper arm: 0.3 cm (0.4 cm) Distal upper arm 0.2 cm (0.3 cm) Proximal lower arm: 0.2 cm (0.3 cm) Mid lower arm: 0.2 cm (0.3 cm) At wrist: 0.1 cm (0.08 cm). There is a 3.2 cm segment with no branches seen. LEFT ARM: Basilic Vein: Proximal upper arm: 0.5 cm (1.1 cm) Mid upper arm: 0.3 cm (0.7 cm) Distal upper arm: 0.3 cm (0.5 cm) Proximal lower arm: 0.1 cm (0.2 cm) The length of vein which is greater than 4 mm in diameter measures 4.32 cm in length. Cephalic Vein: Proximal at shoulder: 0.2 cm (0.4 cm) Proximal upper arm: 0.1 cm (0.2 cm) Mid upper arm: 0.1 cm (0.3 cm) Distal upper arm: 0.2 cm (0.3 cm) Proximal lower arm 0.2 cm (0.3 cm) Mid lower arm: 0.1 cm (0.2 cm) At wrist: 0.1 cm (0.1 cm) There is a 2.01 cm in length without branches seen. IMPRESSION: Bilateral arm venous mapping as described above. Disposition Summary Disposition Principal Diagnosis: End-stage renal disease with fluid overload Additional Diagnosis: Hyperkalemia COPD exacerbation Gouty arthritis Diabetes mellitus A.fib Discharge Disposition: home health services Discharge Instructions General Discharge Information Code Status: Full Code Patient's Diet: renal dialyisis diet Patient's Activity: as tolerated Follow-Up Instructions/Appts: Follow up with pcp within one week of discharge Follow up with vasular regarding AVF creation Follow current sliding scale while on prednisone till jan 02 and then swtich to your previous sliding scale. Attend the dialysis sessions as instructed Medications at Discharge Discharge Medications: Stop taking the following medications: Prednisone (Prednisone) 10 MG TABLET ORAL DIRECTED Qty = 16 Sevelamer Carbonate (Renvela) 800 MG TABLET ORAL WITH MEALS Qty = 60 Continue taking these medications: Folic Acid (Folic Acid) 1 MG TABLET 1 Milligram ORAL DAILY Comments: Last Taken: 03/02/16 Time: 1000 AM Ferrous Sulfate (Ferrous Sulfate) 325 MG (65 MG IRON) TABLET 1 Tablet ORAL TWICE DAILY Comments: LAST TAKEN 03/02 AT 10AM Insulin Glargine, Recombinan (Lantus) 100 U/ML SALIMA 12 Unit Inject into fatty tissue DAILY Comments: Last Taken: 03/02/16 Time: 1000 AM LEVEMIR GIVEN Insulin Lispro (Humalog) 100 UNIT/ML VIAL Units Inject into fatty tissue 3 TIMES DAILY BEFORE MEALS Days = 30 Instructions: Blood sugar Insulin dose < 80mg/dl No dose 80-150 mg/dl no dose 151-200mg/dl 1 unit 201-250mg/dl 2 units 251-300mg/dl 3 units 301-350mg/dl 4 units 351-400mg/dl 6 units 351-400mg/dl 6 units > 400 8 call PLEASE RESUME ON MonDec 151-200 0 Comments: Last Taken: 12/20/16 Time: Allopurinol (Allopurinol) 100 MG TABLET 1 Tablet ORAL DAILY Qty = 30 Comments: Last Taken: 12/31/16 Time: 845 AM Warfarin Sodium (Coumadin) 5 MG TABLET 1 Tablet ORAL DAILY Instructions: please dose Coumadin as per INR. Comments: Last Taken: 12/19/16 Time: 11:00 PM Budesonide/Formoterol Fumarate (Symbicort 80-4.5 Mcg Inhaler) 80 MCG-4.5 MCG/ ACTUATION HFA.AER.AD 2 Puff Inhale through mouth TWICE DAILY Days = 30 Comments: Last Taken: 12/31/16 Time: 845 AM Guaifenesin (Mucinex) 600 MG TAB.ER.12H 1 Tablet ORAL TWICE DAILY Qty = 20 Comments: Last Taken: 12/20/16 Time: 10:00 AM Loratadine (Claritin) 10 MG TABLET 1 Tablet ORAL DAILY Days = 30 Comments: Last Taken: 12/20/16 Time: 10:00 AM Mometasone Furoate (Nasonex) 50 MCG SPRAY.PUMP 2 Meta Both sides of nose DAILY Days = 5 Albuterol Sulfate (Albuterol Sulfate) 0.63 MG/3 ML VIAL.NEB 1 Vial Inhale Solution THREE TIMES DAILY as needed for COPD Albuterol Sulfate (Proventil Hfa) 90 MCG HFA.AER.AD 2 Puff Inhale through mouth 4 TIMES A DAY as needed for COPD Comments: Last Taken: 12/31/16 Time: 945 AM Aspirin (Ecotrin*) 81 MG TABLET.DR 1 Tablet ORAL DAILY Comments: Last Taken: 12/31/16 Time: 845 AM Furosemide (Lasix) 80 MG TABLET 1 Tablet ORAL DAILY Isosorbide Mononitrate (Isosorbide Mononitrate ER) 60 MG TAB.ER.24H 1 Tablet ORAL DAILY Metoprolol Tartrate (Lopressor) 50 MG TABLET 1 Tablet ORAL TWICE DAILY Omeprazole (Omeprazole) 20 MG CAPSULE.DR 1 Capsule ORAL DAILY Simvastatin (Zocor*) 20 MG TABLET 1 Tablet ORAL Every night Colchicine (Colchicine) 0.6 MG TABLET 1 Tablet ORAL DAILY Days = 60 Comments: NOT GIVEN IN HOSPTIAL This prescription has been renewed Start taking the following new medications: Insulin Lispro (Humalog) 100 UNIT/ML VIAL 0 Inject into fatty tissue SEE SLIDING SCALE Days = 3 No Refills Instructions: BEFORE MEALS Blood Insulin Sugar Units <80 0 81-100 3 101-120 3 121-150 3 151-200 4 201-250 6 251-300 8 301-350 10 351-400 12 >400 14 Call Doctor AT BEDTIME Blood Insulin Sugar Units <80 0 81-100 0 101-200 0 201-250 0 251-300 2 301-350 3 351-400 4 >400 5 Call Doctor FOLLOW TILL Dec WHILE ON PREDNISONE Calcitriol (Calcitriol) 1 MCG/ML AMPUL 1 Microgram INTRAVEN MoWeFr Days = 28 No Refills Calcium Carbonate (Calcium Carbonate) 500 MG CALCIUM (1,250 MG) TABLET 1 Tablet ORAL 3 TIMES DAILY BEFORE MEALS Days = 60 No Refills Prednisone (Prednisone) 10 MG TABLET 3 Tablet ORAL DAILY Qty = 9 No Refills Instructions: TAKE 3 TAB DAILY FOR THREE DAYS Copies To: [address],YSABEL Burgos Attending MD Review Statement Documenting Attending: BART MARQUEZ MD
== END 2016-12-31 12:50 | disposition home health service (06) | DRG 640 ==
LOC: ENRESERVDT → ENRESERVTM → ERH 13:59 → ERHI 17:24 → ENPENDDIS 17:24 → 1NO 17:24 → 2NA 19:04 → 1NO 12-29 00:25
PROVIDERS: Internal Medicine; Physician Assistant; Preventive Medicine Public Health & General Preventive Medicine; ADMIT Hospitalist
PROC: 5A1D60Z (ICD-10-PCS; principal; 2016-12-29)
DX: E87.79 Other fluid overload (principal); N18.6 End stage renal disease; I13.2 Hypertensive heart and chronic kidney disease with heart failure and with stage 5 chronic kidney disease, or end stage renal disease; I24.8 Other forms of acute ischemic heart disease; I27.2 Other secondary pulmonary hypertension; E11.22 Type 2 diabetes mellitus with diabetic chronic kidney disease; J44.1 Chronic obstructive pulmonary disease with (acute) exacerbation; I50.22 Chronic systolic (congestive) heart failure; E78.5 Hyperlipidemia, unspecified; G47.33 Obstructive sleep apnea (adult) (pediatric); Z79.01 Long term (current) use of anticoagulants; I25.10 Atherosclerotic heart disease of native coronary artery without angina pectoris; I48.0 Paroxysmal atrial fibrillation; K21.9 Gastro-esophageal reflux disease without esophagitis; M10.9 Gout, unspecified; E87.5 Hyperkalemia; E83.51 Hypocalcemia; E66.01 Morbid (severe) obesity due to excess calories; Z68.30 Body mass index [BMI] 30.0-30.9, adult; Z99.2 Dependence on renal dialysis; Z95.0 Presence of cardiac pacemaker; Z79.4 Long term (current) use of insulin
CPT/HCPCS: 1NP; 2NAP; 36415; 73560-LT; 73560-RT; 80307; 82436; 87040; 87804; 87804-59; 93005; 93010; G0365; J0610; J0636; J0885; J1940; J2930; J3490; J7060

== ENCOUNTER 2017-01-16 19:26 | Emergency (ER) | payer OTHER, MEDICARE ==
[~2017-01-16] VITALS: Ht 167.6 cm; Wt 84.8 kg
[~2017-01-16 19:26] MED LIST changes: +ALBUTEROL0.63 MG/1 INH/SOL; +ASPIRIN EC81 M1 PO; +CALCITRIOL1 MCG/1 ML IV; +CALCIUM CARBON500 M2 PO; +LASIX80 M1 PO; +OMEPRAZOLE20 M2 PO; +PROVENTIL HFA6.7 GM INH; +ZOCOR20 M1 PO
--- NOTE | 2017-01-16 19:49 | ED AMS/SEIZURE/WEAK/DIZZY ---
History of Present Illness General Chief Complaint: General Adult Stated Complaint: "THROAT FEELS TIGHT" WEAKNESS, SHAKING PER PT Source: patient Exam Limitations: no limitations Vital Signs & Intake/Output Vital Signs & Intake/Output Vital Signs Date Time Temp Pulse Resp B/P Pulse O2 O2 Flow FiO2 Ox Delivery Rate 01/17 2140 97.8 88 21 138/68 92 Room Air 01/16 1959 94 01/16 1930 97.4 84 22 135/73 93 Room Air Allergies Coded Allergies: No Known Allergies (01/25/17) Reconcile Medications Albuterol Sulfate 0.63 MG/3 ML VIAL.NEB 1 Vial INH/SALIMA TID PRN COPD (Reported ) Albuterol Sulfate (Proventil Hfa) 90 MCG HFA.AER.AD 2 PUF INH 4 TIMES/DAY PRN COPD (Reported) Allopurinol 100 MG TABLET 1 TAB PO DAILY GOUT Aspirin (Ecotrin*) 81 MG TABLET.DR 1 TAB PO DAILY Heart Health (Reported) Budesonide/Formoterol Fumarate (Symbicort 80-4.5 Mcg Inhaler) 80 MCG-4.5 MCG/ ACTUATION HFA.AER.AD 2 PUF INH BID copd Calcitriol 1 MCG/ML AMPUL 1 MCG IV MoWeFr WITH DIALYSIS Calcium Carbonate 500 MG CALCIUM (1,250 MG) TABLET 1 TAB PO TIDAC ESRD Colchicine 0.6 MG TABLET 300 MCG PO DAILY gout Folic Acid 1 MG TABLET 1 TAB PO DAILY SUPPLEMENT (Reported) Furosemide (Lasix) 80 MG TABLET 1 TAB PO DAILY CHF (Reported) Guaifenesin (Mucinex) 600 MG TAB.ER.12H 1 TAB PO BID MUCOLYTIC Insulin Lispro (Humalog) 100 UNIT/ML VIAL diabetes (Reported) Blood sugar Insulin dose < 80mg/dl No dose 80-150 mg/dl no dose 151-200mg/dl 1 unit 201-250mg/dl 2 units 251-300mg/dl 3 units 301-350mg/dl 4 units 351-400mg/dl 6 units 351-400mg/dl 6 units > 400 8 call MD PLEASE RESUME ON MonDec 151-200 0 Isosorbide Mononitrate (Isosorbide Mononitrate ER) 60 MG TAB.ER.24H 1 TAB PO DAILY HTN (Reported) Loratadine (Claritin) 10 MG TABLET 1 TAB PO DAILY NASAL CONGESTION Metoprolol Tartrate (Lopressor) 50 MG TABLET 1 TAB PO BID HTN (Reported) Mometasone Furoate (Nasonex) 50 MCG SPRAY.PUMP 2 SPRAY NASB DAILY NASAL CONGESTION Omeprazole 20 MG CAPSULE. 1 CAP PO DAILY GERD (Reported) Simvastatin (Zocor*) 20 MG TABLET 1 TAB PO QPM Cholesterol (Reported) Warfarin Sodium (Coumadin) 5 MG TABLET 0.5-1 TAB PO AD BLOOD THINNER ( Reported) please dose Coumadin as per INR. Triage Note: not feeling well for past 3 days had dialysis earlier today now feels worse C/O GEN WEAKNESS, COUGH ,CONGESTION Triage Nurses Notes Reviewed? yes Onset: Gradual Duration: day(s): (3) Timing: recent history Injury Environment: home Severity: moderate No Modifying Factors: none Associated Symptoms: cough, shortness of breath HPI: 71 year old male presents with weakness from home for chief complaint of weakness after dialysis today. He returned home around 3 pm. Also complains of cough, wheezing. No fever or chills. Patient has been maintaining his dialysis schedule. He thinks that his colchicine is being dialysed out of his system which is leaving him in chronic pain. Past History Travel History Traveled to [place] past 21 day No Medical History Any Pertinent Medical History? see below for history Neurological: NONE EENT: allergies Cardiovascular: AFIB (paroxysmal), CAD, cardiomyopathy, hypertension, hyperlipidemia, systolic CHF, PACEMAKER/DEFIBRILLATOR Respiratory: COPD, obstructive sleep apnea (not using CPAP), NON COMPLIANT W/ CPAP Gastrointestinal: GERD Hepatic: NONE Renal: ESRD on HD Musculoskeletal: gout, CELLULITIS Psychiatric: NONE Endocrine: diabetes Blood Disorders: anemia, monoclonal gammopathy of unknown significance Cancer(s): NONE POMOLOGIST/Reproductive: NONE History of MRSA: Yes History of VRE: No History of CDIFF: No Surgical History Surgical History: PACEMAKER SALMA catheter Psychosocial History Who do you live with Patient/Self Services at Home None What is your primary language Romanian Tobacco Use: Quit >30 days ago Family History Family History, If Any: MOTHER (Lung cancer). Hx Contributory? No Review of Systems Review of Systems Constitutional: Reports: malaise, weakness. Denies: chills, fever. EENTM: Reports: no symptoms. Respiratory: Reports: cough, wheezing. Cardiovascular: Denies: chest pain. GI: Denies: abdominal pain. Genitourinary: Reports: no symptoms. Musculoskeletal: Reports: no symptoms. Skin: Reports: no symptoms. Neurological/Psychological: Reports: no symptoms. Hematologic/Endocrine: Denies: bruising, bleeding, polyuria, polydipsia. Immunologic/Allergic: Denies: splenectomy. All Other Systems: Reviewed and Negative Physical Exam Physical Exam General Appearance: well developed/nourished, alert, awake Head: atraumatic, normal appearance Eyes: Bilateral: normal appearance, PERRL, pale conjunctivae. Ears, Nose, Throat: normal pharynx, hearing grossly normal Neck: normal inspection, supple, full range of motion Respiratory: chest non-tender, no respiratory distress, decreased breath sounds Cardiovascular: regular rate/rhythm Peripheral Pulses: 2+ radial (R), 2+ radial (L) Gastrointestinal: soft, non-tender Extremities: normal range of motion Neurologic/Psych: no motor/sensory deficits, awake, alert, oriented x 3 Skin: intact, normal color, warm/dry Core Measures ACS in differential dx? No CVA/TIA Diagnosis: No Severe Sepsis Present: No Septic Shock Present: No Progress Differential Diagnosis: dehydration, electrolyte imbalance, GI bleed, pneumonia, bronchitis, CHF Plan of Care: Orders Procedure Date/time Status RT ED ORDERS 01/17 1948 Active TROPONIN LEVEL 01/17 1948 Complete COMPREHENSIVE METABOLIC PANEL 01/17 1948 Complete CBC WITHOUT DIFFERENTIAL 01/17 1948 Complete EKG 01/17 1948 Active Laboratory Tests 01/16/17 2004: Anion Gap 14, Estimated GFR 15 L, BUN/Creatinine Ratio 7.4, Glucose 122 H, Calcium 8.7, Total Bilirubin 0.5, AST 22, ALT 35, Alkaline Phosphatase 133 H, Troponin I 0.09, Total Protein 6.0 L, Albumin 3.4 L, Globulin 2.6, Albumin/ Globulin Ratio 1.3, CBC w Diff NO MAN DIFF REQ, RBC 3.80 L, MCV 88.1, MCH 28.3, RDW 22.3 H, MPV 8.3, Gran % 76.9 H, Lymphocytes % 10.7 L, Monocytes % 10.9 H , Eosinophils % 1.0, Basophils % 0.5, Absolute Granulocytes 6.0, Absolute Lymphocytes 0.8 L, Absolute Monocytes 0.8 H, Absolute Eosinophils 0.1, Absolute Basophils 0, PUBS MCHC 32.2 L DUONEB, COLCHICINE, CXR, LABS ORDERED. PATIENT FEELS IMPROVED AFTER DUONEB. AMBULATORY THROUGH THE ED WITHOUT DISTRESS OR HYPOXIA. PATIENT WILL GO HOME AT THIS TIME. ([address],[place]) Diagnostic Imaging: Viewed by Me: Radiology Read. Discussed w/RAD: Radiology Read. CXR Impression: PATIENT: DUNCAN ORELLANA PRESENT AGE : 71 PATIENT ACCOUNT NO: [id number] : 45 LOCATION: [facility] ORDERING PHYSICIAN: AUGUSTUS AHUJA MD SERVICE DATE: 01/16/17 EXAM TYPE: RAD - XRY -CHEST XRAY, PA AND LATERAL EXAMINATION: PA and lateral chest radiograph CLINICAL INFORMATION: Dyspnea with white phlegm. COMPARISON: Chest x-ray December 28 2016. TECHNIQUE: 2 views of the chest were obtained. FINDINGS: Left chest wall AICD/pacemaker is again noted. Median sternotomy wires appear intact. Right dual-lumen IJ dialysis catheter tip again projects over the cavoatrial junction. There is no focal consolidation, pleural effusion, or pneumothorax. Central vascular congestion without overt edema. Cardiac silhouette is enlarged and unchanged. There are no acute osseous findings. IMPRESSION: Central vascular congestion without overt edema. No focal pneumonia. DICTATED BY: LUISANA TERESA MD DATE/TIME DICTATED:01/16/172048 ROOFER APPLICATOR:SANG DATE/TIME TRANSCRIBED:01/16/172048 CONFIDENTIAL, DO NOT COPY WITHOUT APPROPRIATE AUTHORIZATION. <Electronically signed in Other Vendor System> SIGNED BY: LUISANA TERESA MD 01/16/172058 Initial ED EKG: pacemaker rhythm Prior EKG: unchanged Departure Departure Time of Disposition: 2221 Disposition: HOME OR SELF CARE Condition: Stable Clinical Impression Primary Impression: Weakness Referrals: [address],YSABEL Burgos (PCP/Family) Additional Instructions: FOLLOW UP WITH YOUR REGULARLY SCHEDULED DIALYSIS. Departure Forms: Customer Survey General Discharge Information
[2017-01-16 20:15] LABS: ABSOLUTE BASOPHIL COUNT 0 /CUMM (0.0-0.2); ABSOLUTE EOSINOPHIL COUNT 0.1 /CUMM (0.0-0.7); ABSOLUTE LYMPH COUNT 0.8 /CUMM (1.2-3.4); ABSOLUTE MONOCYTE COUNT 0.8 /CUMM (0.10-0.60); BASOPHIL % 0.5 % (0.0-2.0); GRANULOCYTE % 76.9 % (42.2-75.2); HEMATOCRIT 33.5 % (42-52); MEAN CORPUSCULAR HGB 28.3 PG (27.0-31.0); MEAN CORPUSCULAR HGB CONC 32.2 G/DL (33.0-37.0); MEAN CORPUSCULAR VOLUME 88.1 FL (80.0-94.0); MEAN PLATELET VOLUME 8.3 FL (7.4-10.4); PLATELET COUNT 82 /CUMM (130-400); RBC DISTRIBUTION WIDTH 22.3 % (11.5-14.5); WHITE BLOOD CELL COUNT 7.8 /CUMM (4.8-10.8)
--- NOTE | 2017-01-16 20:59 | RADIOLOGY REPORT ---
EXAMINATION: PA and lateral chest radiograph CLINICAL INFORMATION: Dyspnea with white phlegm. COMPARISON: Chest x-ray December 28 2016. TECHNIQUE: 2 views of the chest were obtained. FINDINGS: Left chest wall AICD/pacemaker is again noted. Median sternotomy wires appear intact. Right dual-lumen IJ dialysis catheter tip again projects over the cavoatrial junction. There is no focal consolidation, pleural effusion, or pneumothorax. Central vascular congestion without overt edema. Cardiac silhouette is enlarged and unchanged. There are no acute osseous findings. IMPRESSION: Central vascular congestion without overt edema. No focal pneumonia.
[2017-01-16] MEDS ORDERED: PREDNISONE10 M2 PO (21:07)
[2017-01-16 21:40] VITALS: BP 138/68
== END 2017-01-16 22:27 ==
LOC: ERH 19:26
PROVIDERS: Emergency Medicine
DX: R53.1 Weakness (principal)
CPT/HCPCS: 1263; 93005; 93010

== ENCOUNTER 2017-01-18 04:11 | Inpatient (IN) | payer OTHER, BC, MEDICARE ==
[~2017-01-18] VITALS: Ht 167.6 cm; Wt 80.3 kg
--- NOTE | 2017-01-18 04:15 | NUR ---
71YO MALE TO RM 10 VIA AMB FROM HOME W/CO DIFF BREATHING, COUGH AND CONGESTION X 2 D THAT HAS WORSENED TONITE. HX COPD, CRF AND HAD RECENTLY BEEN ON STEROIDS.
--- NOTE | 2017-01-18 04:21 | ED DYSPNEA/ASTHMA COMPLAINT ---
See Addendum History of Present Illness General Chief Complaint: Dyspnea (COPD, CHF, Other) Stated Complaint: DIFF BREATHING Source: patient, old records, EMS Exam Limitations: no limitations Vital Signs & Intake/Output Vital Signs & Intake/Output Vital Signs Date Time Temp Pulse Resp B/P Pulse O2 O2 Flow FiO2 Ox Delivery Rate 01/19 616 97 Nasal 3.0L Cannula 01/18 0610 91 138/65 01/18 0439 100.7 01/18 0430 94 Room Air 01/18 430 97 Nasal 3.0L Cannula 01/18 0415 100.7 91 24 138/65 94 Nasal 2.0L Cannula Allergies Coded Allergies: NO KNOWN ALLERGIES (10/04/16) Reconcile Medications Albuterol Sulfate 0.63 MG/3 ML VIAL.NEB 1 Vial INH/SALIMA TID PRN COPD (Reported ) Albuterol Sulfate (Proventil Hfa) 90 MCG HFA.AER.AD 2 PUF INH 4 TIMES/DAY PRN COPD (Reported) Allopurinol 100 MG TABLET 1 TAB PO DAILY GOUT Aspirin (Ecotrin*) 81 MG TABLET.DR 1 TAB PO DAILY Heart Health (Reported) Budesonide/Formoterol Fumarate (Symbicort 80-4.5 Mcg Inhaler) 80 MCG-4.5 MCG/ ACTUATION HFA.AER.AD 2 PUF INH BID copd Calcitriol 1 MCG/ML AMPUL 1 MCG IV MoWeFr WITH DIALYSIS Calcium Carbonate 500 MG CALCIUM (1,250 MG) TABLET 1 TAB PO TIDAC ESRD Colchicine 0.6 MG TABLET 1 TAB PO DAILY GOUT Folic Acid 1 MG TABLET 1 TAB PO DAILY SUPPLEMENT (Reported) Furosemide (Lasix) 80 MG TABLET 1 TAB PO DAILY CHF (Reported) Guaifenesin (Mucinex) 600 MG TAB.ER.12H 1 TAB PO BID MUCOLYTIC Insulin Lispro (Humalog) 100 UNIT/ML VIAL diabetes (Reported) Blood sugar Insulin dose < 80mg/dl No dose 80-150 mg/dl no dose 151-200mg/dl 1 unit 201-250mg/dl 2 units 251-300mg/dl 3 units 301-350mg/dl 4 units 351-400mg/dl 6 units 351-400mg/dl 6 units > 400 8 call PLEASE RESUME ON MonDec 151-200 0 Isosorbide Mononitrate (Isosorbide Mononitrate ER) 60 MG TAB.ER.24H 1 TAB PO DAILY HTN (Reported) Loratadine (Claritin) 10 MG TABLET 1 TAB PO DAILY NASAL CONGESTION Metoprolol Tartrate (Lopressor) 50 MG TABLET 1 TAB PO BID HTN (Reported) Mometasone Furoate (Nasonex) 50 MCG SPRAY.PUMP 2 SPRAY NASB DAILY NASAL CONGESTION Omeprazole 20 MG CAPSULE.DR 1 CAP PO DAILY GERD (Reported) Prednisone (Unknown Strength) TABLET (Unknown Dose) PO AD STEROID (Reported) Simvastatin (Zocor*) 20 MG TABLET 1 TAB PO QPM Cholesterol (Reported) Warfarin Sodium (Coumadin) 5 MG TABLET 0.5-1 TAB PO AD BLOOD THINNER ( Reported) please dose Coumadin as per INR. Triage Nurses Notes Reviewed? yes Onset: Gradual Duration: hour(s):, constant, continues in ED, getting worse, waxing and waning Severity: moderate, severe Activities at Onset: rest Prior Episodes/Possible Cause: frequent episodes Modifying Factors: Worsens With: other (EXERTION). HPI: Patient presents for evaluation of severe difficulty breathing with a fever and a loose sounding cough that began gradually about 2-3 days ago. He has been using his home oxygen and taking nebulizer treatments without improvement. Shortness of breath gets worse with any exertion. Nothing seems to make him feel better at this time. He denies any recent travel or known ill contacts. Past History Travel History Traveled to [place] past 21 day No Medical History Any Pertinent Medical History? 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 Hx Contributory? No Review of Systems Review of Systems Constitutional: Reports: no symptoms. EENTM: Reports: no symptoms. Respiratory: Reports: see HPI. Cardiovascular: Reports: no symptoms. GI: Reports: no symptoms. Genitourinary: Reports: no symptoms. Musculoskeletal: Reports: no symptoms. Skin: Reports: no symptoms. Neurological/Psychological: Reports: no symptoms. Hematologic/Endocrine: Reports: no symptoms. Immunologic/Allergic: Reports: no symptoms. All Other Systems: Reviewed and Negative Physical Exam Physical Exam Respiratory: SEE BELOW Comments: Gen.: Well-nourished, well-developed, moderate respiratory distress. Tachypneic. Head: Normocephalic, atraumatic. Eyes: Normal inspection bilaterally Ears: Normal inspection bilaterally Nose: Normal inspection Throat/mouth : Moist mucosa Neck: Supple, full range of motion, no goiter Heart: Regular rate and rhythm, no murmurs rubs or gallops Lungs: Scattered end expiratory wheezes and rhonchi with diminished air entry bilaterally, frequent loose sounding cough Chest: Nontender Back: Normal range of motion Abdomen: Soft, nontender, protuberant, normal bowel sounds Extremities: Normal range of motion grossly, equal radial pulses, mild lower extremity pitting edema with chronic skin changes Neurologic: Cranial nerves grossly intact, speech is clear Skin: warm and dry Psychiatric: Calm, cooperative, no apparent delusions or hallucinations Core Measures ACS in differential dx? No Severe Sepsis Present: No Septic Shock Present: No Progress Differential Diagnosis: CHF, COPD, pneumonia Plan of Care: Orders Procedure Date/time Status LACTIC ACID 01/18 0934 Active Add-on Test (ER Only) 01/18 0635 Active Add-on Test (ER Only) 01/18 0516 Active Telemetry/Tosser 01/18 0501 Active TROPONIN LEVEL 01/18 043 Complete LACTIC ACID 01/18 043 Active B-TYPE NATRIURETIC PEP (BNP) 01/18 0430 Complete CULTURE,URINE 01/18 0421 Active BLOOD CULTURE 01/18 0421 Active URINALYSIS 01/18 0421 Active COMPREHENSIVE METABOLIC PANEL 01/18 0421 Complete CBC WITHOUT DIFFERENTIAL 01/18 421 Complete EKG 01/18 0415 Active Laboratory Tests 01/18/17 0634: Lactic Acid Cancelled 01/18/17 0430: Lactic Acid Pending 01/18/17 0430: Anion Gap 18 H, Estimated GFR 8 L, BUN/Creatinine Ratio 8.0, Glucose 115 H, Calcium 8.7, Total Bilirubin 0.6, AST 20, ALT 31, Alkaline Phosphatase 134 H, Troponin I 0.10, Kdz-C-Cruglcjwqvr Pept 04088 H, Total Protein 6.3, Albumin 3.7 , Globulin 2.6, Albumin/Globulin Ratio 1.4, CBC w Diff NO MAN DIFF REQ, RBC 3.92 L, MCV 88.8, MCH 28.3, RDW 23.2 H, MPV 9.2, Gran % 74.9, Lymphocytes % 11.8 L , Monocytes % 10.7 H, Eosinophils % 1.3, Basophils % 1.3, Absolute Granulocytes 5.2, Absolute Lymphocytes 0.8 L, Absolute Monocytes 0.7 H, Absolute Eosinophils 0.1, Absolute Basophils 0.1, PUBS MCHC 31.9 L Microbiology 01/19 440 BLOOD: Blood Culture - RECD 01/18 430 BLOOD: Blood Culture - RECD 01/18 421 URINE ROUT: Urine Culture - ORD Diagnostic Imaging: Viewed by Me: Radiology Read. Discussed w/RAD: Radiology Read. CXR Impression: PATIENT: CHACORTA ORELLANA PRESENT AGE : 71 PATIENT ACCOUNT NO: [id number] : 45 LOCATION: [facility] ORDERING PHYSICIAN: LUISANA SALTER MD SERVICE DATE: 01/18/17 EXAM TYPE: RAD - XRY-PORTABLE CHEST XRAY EXAMINATION: XR PORTABLE CHEST CLINICAL INFORMATION: Fever, chest congestion, dyspnea. COMPARISON: 01/16/2017 TECHNIQUE: Portable AP view of the chest was obtained. FINDINGS: The patient's glasses overlie his right chest. Left chest wall AICD/pacer is unchanged. Dialysis catheter is in place. Median sternotomy wires appear intact. The lungs are well expanded. There is persistent central vascular congestion without overt edema. No pleural effusion or pneumothorax. The cardiomediastinal silhouette remains prominent, with a calcified aorta. IMPRESSION: Central vascular prominence without overt edema. No dense consolidation. DICTATED BY: IZA KNIGHT MD DATE/TIME DICTATED:01/18/17455 DRIVER SALES:SANG DATE/TIME TRANSCRIBED:455 CONFIDENTIAL, DO NOT COPY WITHOUT APPROPRIATE AUTHORIZATION. < Electronically signed in Other Vendor System> SIGNED BY: IZA KNIGHT MD 01/18/17 8278 Initial ED EKG: VENTRICULAR PACED RHYTHM WITH A RATE OF 93 Prior EKG: unchanged Comments: 01/18/2017 5:22:45 AM I have updated Chacorta on his test results this far. His oxygen saturations heart rate and blood pressure are normal. He has a dialysis session pending at 4:30 this afternoon. However given his persistent loose cough and difficulty breathing on presentation I feel he wILL likely require hospitalization. He states he typically takes Lasix 80 mg in the morning. 01/18/2017 6:35:35 AM patient appears improved. A second albuterol treatment has been ordered at the patient's request. He does have a fever, the etiology of which is unclear at this point. Given his renal failure and current dialysis treatment, his lactic acid and renal functions are difficult to interpret. In addition, given the patient's trouble breathing, his elevated respiratory rate and lightly elevated heart rate likely a reflection of trouble breathing secondary to CHF as opposed to sepsis. I do not feel at this point the patient is manifesting convincing signs of sepsis. I have elected to cover him with antibiotics given his multiple medical comorbidities and his renal failure that I believe place him at risk of future sepsis. Departure Departure Disposition: STILL A PATIENT Condition: Stable Clinical Impression Primary Impression: Fever Qualifiers: Fever type: unspecified Qualified Code: R50.9 - Fever, unspecified Secondary Impressions: Pulmonary vascular congestion, Renal failure Referrals: BRITT STRE[address],YSABEL Burgos (PCP/Family) Departure Forms: Customer Survey General Discharge Information Admission Note Spoke With: YOGI STREET,LYUBOV Documentation of Exam: Documentation of any treatments & extenuating circumstances including Concerns Regarding Discharge (functional status, medication knowledge or non-compliance, living conditions, etc.) that warrant an admission rather than observation: Patient presents with a fever of unclear etiology. He also has a history of renal failure placing him at increased risk of developing sepsis due to immune compromise. He is already taking isosorbide and Lasix as an outpatient but he has still presented with pulmonary vascular congestion, dyspnea and a loose sounding cough in the presence of a fever. I do not feel he is a good candidate for outpatient management under the circumstances and a fear that compliance with outpatient treatment would cause worsening dyspnea. It is in my opinion that the patient requires hospitalization for close clinical monitoring of fever and vital signs. He should be covered presumptively with IV antibiotics until culture results are available, at which point treatment can be tailored accordingly. He should receive dialysis as scheduled. Cardiology infectious disease and nephrology consultations should be considered. Culture results may require up to 2 days to return SO I feel the patient would need a multi-day hospitalization. Critical Care Note Critical Care Note Critical Care Time: 30-74 min
--- NOTE | 2017-01-18 04:25 | NUR ---
DUONEB GIVEN BY RT
--- NOTE | 2017-01-18 04:45 | NUR ---
CONGESTED NON-PROD COUGH CONTINUES. 02 SAT= 98 ON 2L
[2017-01-18 04:52] LABS: ABSOLUTE BASOPHIL COUNT 0.1 /CUMM (0.0-0.2); ABSOLUTE EOSINOPHIL COUNT 0.1 /CUMM (0.0-0.7); ABSOLUTE GRANULOCYTE CT 5.2 /CUMM (1.4-6.5); ABSOLUTE LYMPH COUNT 0.8 /CUMM (1.2-3.4); ABSOLUTE MONOCYTE COUNT 0.7 /CUMM (0.10-0.60); BASOPHIL % 1.3 % (0.0-2.0); EOSINOPHIL % 1.3 % (0-5); GRANULOCYTE % 74.9 % (42.2-75.2); HEMATOCRIT 34.8 % (42-52); MEAN CORPUSCULAR HGB 28.3 PG (27.0-31.0); MEAN CORPUSCULAR HGB CONC 31.9 G/DL (33.0-37.0); MEAN CORPUSCULAR VOLUME 88.8 FL (80.0-94.0); MEAN PLATELET VOLUME 9.2 FL (7.4-10.4); PLATELET COUNT 85 /CUMM (130-400); RBC DISTRIBUTION WIDTH 23.2 % (11.5-14.5); RED BLOOD CELL CT 3.92 /CUMM (4.70-6.10)
--- NOTE | 2017-01-18 05:03 | RADIOLOGY REPORT ---
EXAMINATION: XR PORTABLE CHEST CLINICAL INFORMATION: Fever, chest congestion, dyspnea. COMPARISON: 01/16/2017 TECHNIQUE: Portable AP view of the chest was obtained. FINDINGS: The patient's glasses overlie his right chest. Left chest wall AICD/pacer is unchanged. Dialysis catheter is in place. Median sternotomy wires appear intact. The lungs are well expanded. There is persistent central vascular congestion without overt edema. No pleural effusion or pneumothorax. The cardiomediastinal silhouette remains prominent, with a calcified aorta. IMPRESSION: Central vascular prominence without overt edema. No dense consolidation.
--- NOTE | 2017-01-18 05:05 | NUR ---
EKG DONE AND SHOWN TO DR. SALTER, AND NURSE HOLA BAIRD.
--- NOTE | 2017-01-18 05:21 | NUR ---
CRITICAL TEST RESULTS [id number] DUNCAN ORELLANA TESTS AND RESULTS: CREAT = 6.6 Results received and read back by: MELONIE ERNST Results received date and time: 01/18/17521 The following provider was notified of the results, and read the results back: DR SALTER Notified date and time: 01/18/17 at 0522
--- NOTE | 2017-01-18 05:50 | NUR ---
DR SALTER IN TO RE EVAL SITTING UP ON SIDE OF BED. STATES "MY BREATHING IS BETTER WHEN I'M SITTING UP" O2 SAT ON 2L = 97
--- NOTE | 2017-01-18 06:14 | NUR ---
2ND RESP TX GIVEN BY RT.
--- NOTE | 2017-01-18 07:50 | NUR ---
SERO FROM HOUSE STAFF AT BEDSIDE FOR EVAL.
--- NOTE | 2017-01-18 07:57 | History & Physical ---
PHILIP STREET,MAUREEN 01/18/17 0756: General Information and HPI MD Statement: I have seen and personally examined DUNCAN ORELLANA and documented this H&P. The patient is a 71 year old M who presented with a patient stated chief complaint of [cough, chest tightness, fevers]. Source of Information: patient, old records Exam Limitations: no limitations History of Present Illness: This is a 71-year-old gentleman with multiple medical problems namely hypertension, hyperlipidemia, systolic heart failure, COPD, ESRD requiring hemodialysis through a rash cath Monday, FREDY, diabetes mellitus , gout, atrial fibrillation; recent hospitalization at [facility] just discharged 4 days ago presents to the emergency room with a three-day history of chest tightness and pressure, fevers, productive cough. Patient states that a day after he left the hospital he started to experience his problems with dyspnea on exertion. States that the chest tightness does alleviate with rest. He has been compliant with his inhalers and nebulizer therapy. Admits to using 2 pillows a night which is his baseline. States that he did go to his dialysis session on Monday. However he feels that his legs are swollen more than before. PCP Birgit De La Torre MD, access rep Dr. Crandall, restorative art embalmer Neri Doshi MD, network control supervisor Dr. Perry, subject scientific research Dr. davila Allergies/Medications Allergies: Coded Allergies: NO KNOWN ALLERGIES (10/04/16) Home Med list Albuterol Sulfate 0.63 MG/3 ML VIAL.NEB 1 Vial INH/SALIMA TID PRN COPD (Reported ) Albuterol Sulfate (Proventil Hfa) 90 MCG HFA.AER.AD 2 PUF INH 4 TIMES/DAY PRN COPD (Reported) Allopurinol 100 MG TABLET 1 TAB PO DAILY GOUT Aspirin (Ecotrin*) 81 MG TABLET.DR 1 TAB PO DAILY Heart Health (Reported) Budesonide/Formoterol Fumarate (Symbicort 80-4.5 Mcg Inhaler) 80 MCG-4.5 MCG/ ACTUATION HFA.AER.AD 2 PUF INH BID copd Calcitriol 1 MCG/ML AMPUL 1 MCG IV MoWeFr WITH DIALYSIS Calcium Carbonate 500 MG CALCIUM (1,250 MG) TABLET 1 TAB PO TIDAC ESRD Colchicine 0.6 MG TABLET 1 TAB PO DAILY GOUT Folic Acid 1 MG TABLET 1 TAB PO DAILY SUPPLEMENT (Reported) Furosemide (Lasix) 80 MG TABLET 1 TAB PO DAILY CHF (Reported) Guaifenesin (Mucinex) 600 MG TAB.ER.12H 1 TAB PO BID MUCOLYTIC Insulin Lispro (Humalog) 100 UNIT/ML VIAL diabetes (Reported) Blood sugar Insulin dose < 80mg/dl No dose 80-150 mg/dl no dose 151-200mg/dl 1 unit 201-250mg/dl 2 units 251-300mg/dl 3 units 301-350mg/dl 4 units 351-400mg/dl 6 units 351-400mg/dl 6 units > 400 8 call PLEASE RESUME ON MonDec 151-200 0 Isosorbide Mononitrate (Isosorbide Mononitrate ER) 60 MG TAB.ER.24H 1 TAB PO DAILY HTN (Reported) Loratadine (Claritin) 10 MG TABLET 1 TAB PO DAILY NASAL CONGESTION Metoprolol Tartrate (Lopressor) 50 MG TABLET 1 TAB PO BID HTN (Reported) Mometasone Furoate (Nasonex) 50 MCG SPRAY.PUMP 2 SPRAY NASB DAILY NASAL CONGESTION Omeprazole 20 MG CAPSULE.DR 1 CAP PO DAILY GERD (Reported) Prednisone (Unknown Strength) TABLET (Unknown Dose) PO AD STEROID (Reported) Simvastatin (Zocor*) 20 MG TABLET 1 TAB PO QPM Cholesterol (Reported) Warfarin Sodium (Coumadin) 5 MG TABLET 0.5-1 TAB PO AD BLOOD THINNER ( Reported) please dose Coumadin as per INR. 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 Psychosocial History Who Do You Live With? self Services at Home: None Primary Language: Mongolian Smoking Status: Never Smoked Functional Ability ADLs Independent: dressing, eating, toileting, bathing. Ambulation: independent IADLs Independent: shopping, housework, finances, food prep, telephone, transportation , medication admin. Review of Systems Review of Systems Constitutional: Reports: see HPI. Exam & Diagnostic Data Last 24 Hrs of Vital Signs/I&O Vital Signs Date Time Temp Pulse Resp B/P Pulse O2 O2 Flow FiO2 Ox Delivery Rate 01/18 0731 97.8 84 24 142/56 96 Nasal 2.0L Cannula 01/18 0616 97 Nasal 3.0L Cannula 01/18 0610 91 138/65 01/18 0439 100.7 01/18 0430 94 Room Air 01/18 043 97 Nasal 3.0L Cannula 01/18 0415 100.7 91 24 138/65 94 Nasal 2.0L Cannula Intake & Output 01/18 1600 01/18 0800 01/18 0000 Intake Total 100 Output Total Balance 100 Intake, IV 100 Patient 187 lb Weight Physical Exam General Appearance Alert, Oriented X3, Cooperative, No Acute Distress Skin No Rashes, No Breakdown, ILYA CATH ON RIGHT CHEST, NO SURROUNDING ERRYTHEMA OR DRAINAGE HEENT Atraumatic, PERRLA, EOMI Cardiovascular Regular Rate, Normal S1, Normal S2 Lungs B/L WHEEZING, CRACKLES & RONCHII Abdomen Normal Bowel Sounds, Soft, No Tenderness Neurological Normal Speech, Strength at 5/5 X4 Ext Extremities No Clubbing, No Cyanosis, No Edema Last 24 Hrs of Labs/Satnam: Laboratory Tests 01/18/17 0634: Lactic Acid Cancelled 01/18/170: Lactic Acid 1.5 01/18/17 0430: Anion Gap 18 H, Estimated GFR 8 L, BUN/Creatinine Ratio 8.0, Glucose 115 H, Calcium 8.7, Total Bilirubin 0.6, AST 20, ALT 31, Alkaline Phosphatase 134 H, Troponin I 0.10, Veu-Y-Isiszqbkdiz Pept 71046 H, Total Protein 6.3, Albumin 3.7 , Globulin 2.6, Albumin/Globulin Ratio 1.4, CBC w Diff NO MAN DIFF REQ, RBC 3.92 L, MCV 88.8, MCH 28.3, RDW 23.2 H, MPV 9.2, Gran % 74.9, Lymphocytes % 11.8 L , Monocytes % 10.7 H, Eosinophils % 1.3, Basophils % 1.3, Absolute Granulocytes 5.2, Absolute Lymphocytes 0.8 L, Absolute Monocytes 0.7 H, Absolute Eosinophils 0.1, Absolute Basophils 0.1, PUBS MCHC 31.9 L Microbiology 01/19 440 BLOOD: Blood Culture - RECD 01/18 430 BLOOD: Blood Culture - RECD 01/18 421 URINE ROUT: Urine Culture - ORD Diagnostic Data EKG Results Rate 93, MA 172, QRS 154, QTC 528 Ventricular paced rhythm CXR Results IMPRESSION: Central vascular prominence without overt edema. No dense consolidation. Assessment/Plan Assessment: Assessment- 1. SIRS (fever and tachypnea), possible HCAP vs Bronchitis vs COPD exacerbation (recently d/c on 01/14); unclear source 2. Acute on chronic HFrEF, echo Sep 2016, EF 50%, pro-BNP 31430 3. ESRD on hemodialysis, Senior Compliance Analyst 6.6 4. Possible COPD exacerbation 5. Anion gap 18 metabolic acidosis, likely 2/2 electrolyte imbalance, needs hemodialysis today 6. Chronic anemia, 2/2 ESRD 7. IDDM 8. FREDY, non-compliant with CPAP 9. Hx of MGUS 10. Hx of Pulmonary HTN; RVSP 52 mm Hg per recent echo 11. Paroxsymal A fib 12. Hx of pacemaker placement 13. Prolonged QTc 14. Gout Plan- Admit to telemetry Vitals per protocol Trend troponin and EKG 2; first set has been negative Panculture, flu swab Get ABG Get CAT scan of the chest Urinalysis and culture He has been given Unasyn; given his recent admission he might require vancomycin and Fortaz however this should be done after his hemodialysis today Nephrology consultation Will notify his subject scientific research, network control supervisor and access rep of his admission Will start on IV steroids Continue all home meds, will hold off on IV Lasix for now; volume will be removed with the hemodialysis Accu-Cheks, insulin sliding scale, renal diet Check his INR Repeat lactate in 3 hours Continue home meds DVT ppx with Coumadin and ALPS Pain pathway Full code As Ranked By This Provider Problem List: 1. Pulmonary vascular congestion 2. Fever Qualifiers Fever type: unspecified Qualified Code: R50.9 - Fever, unspecified 3. Weakness 4. CHF exacerbation Core Measures/Miscellaneous Acute Coronary Syndrome ACS Diagnosis: No Cerebrovascular Accident CVA/TIA Diagnosis: No Congestive Heart Failure CHF Diagnosis: Yes Date of most recent Echo: 09/06/16 Last Known EF %: 50 MEREDITH/ARB for EF <40%: No No MEREDITH/ARB d/t: Medical Contraindication Venous Thromboembolism VTE Risk Factors: Age > 40 No [facility] V[facility] prophylaxis d/t: VTE low risk No VTE Pharm Prophylaxis d/t: VTE low risk VTE Diagnosis: No VTE Type: NONE VTE Confirmed by (Test): NONE Severe Sepsis Severe Sepsis Present: No Septic Shock Septic Shock Present: No Miscellaneous Documentation Attending Case Discussed With: Dr. Hernandez Primary Care Physician: BIRGIT DE LA TORRE MD Patient sees these Specialists see HPI Level of Patient Care: Telemetry Resident Review Statement Resident Statement: examined this patient IRA HERNANDEZ MD 01/18/17 1213: Attending MD Review Statement Attending Statement Attending MD Statement: examined this patient, discuss w/resident/PA/LANDMEN, agreed w/resident/PA/LANDMEN, reviewed EMR data (avail), discussed with nursing, discussed with case mgmt, reviewed images, amended to note Attending Assessment/Plan: 71-year-old male known to me from multiple previous admissions. He has multiple medical problems including chronic respiratory failure with COPD on home oxygen and CPAP, chronic diastolic heart failure with an EF of 50%, A. fib on Coumadin, hypertension, hyperlipidemia and end-stage renal disease on hemodialysis. He gets hemodialysis through an Ilya cath on a Monday schedule. He 's been here multiple times most recently from November 25 to the , December 17 to the and Dec 28 to Dec 31. His compliance with his CPAP, oxygen and dialysis is questionable. Today he returns with a low-grade temperature of 100.7 and cough with sputum with complaints of shortness of breath. The CT chest obtained doesn't show any opacities suggestive of pneumonia and has chronic pulmonary issues. I am concerned about the fever and the cough and whether this could be influenza, we'll check a flu swab. The ER gave him Unasyn. At this time I think we can safely watch him off antibiotics given the lack of opacities on the chest CT. Blood cultures and sputum cultures have been sent. Will dose his Coumadin to keep his INR therapeutic, call renal as he will need dialysis Monday ,Monday and Monday. Give him a quick course of IV Solu -Medrol followed by prednisone to cover for any element of COPD exacerbation. The bigger issue I think is the social situation, the loneliness at home and barriers that prevent full compliance that we need to address.
--- NOTE | 2017-01-18 08:49 | CT SCAN REPORT ---
EXAMINATION: CT CHEST WITHOUT CONTRAST CLINICAL INFORMATION: Cough fever in chills, evaluate for infiltrate versus volume overload. COMPARISON: 06/09/2015. TECHNIQUE: Multidetector volumetric CT imaging of the chest was done. Axial MIP volume rendering provided. Sagittal and coronal reformatted images were obtained. 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 There is a right IJ dual-lumen hemodialysis type catheter in place with its tip in the right atrium. A left-sided pectoral AICD device is identified with its lead and multiple other pacer leads identified. Patient is status post median sternotomy with multiple intact sternal wires and evidence of previous CABG. There is mild elevation of the left hemidiaphragm. LUNGS: The lungs are well expanded without evidence of a focal infiltrate. No focal groundglass opacities are identified. There is no evidence of diffuse increase interstitial markings to suggest interstitial edema. There is a stable 5 mm right upper lobe pulmonary nodule laterally abutting the pleural surface. No other pulmonary nodules are seen. There is minimal dependent atelectasis in the bilateral lower lobes posteriorly. MEDIASTINUM: There is no lower cervical, mediastinal, or hilar lymphadenopathy. 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 There is extensive atherosclerotic calcification of the aortic arch and coronary's. With CABG changes. The heart is enlarged containing an AICD and other pacer leads. A dual lumen right IJ hemodialysis type catheter is in place with its tip in the right atrium. PLEURA: There is no pleural effusion. No pleural mass or thickening. AXILLA: No lymphadenopathy. UPPER ABDOMEN: Post cholecystectomy changes, fairly extensive atherosclerotic changes. OSSEOUS STRUCTURES: No focal destructive or sclerotic osseous lesions are seen. IMPRESSION: 1. No evidence of an acute intrathoracic process. 2. Heart is enlarged with postoperative and procedural changes as noted. 3. Stable 6 mm right upper lobe pulmonary nodule. 4. Otherwise unremarkable examination. Various management parameters for solitary pulmonary nodules are in the literature. According to the Fleischner Society, recommendations for pulmonary nodules are as follows: Nodule size > 4-6 mm in LOW RISK PATIENTS: Follow up CT at 12 months; if unchanged, no further follow up. Nodule size > 4-6 mm in HIGH RISK PATIENTS: Initial follow up CT at 6-12 months, then at 18-24 months if no change.
--- NOTE | 2017-01-18 09:30 | NUR ---
FLU SWAB SENT TO LAB NOW.
[2017-01-18 09:45] LABS: PT 27.4 SEC (9.4-12.5)
--- NOTE | 2017-01-18 10:32 | NUR ---
PT REQUESTING SOMETHING FOR COUGH, DR. ROLDAN PAGED AND WILL PUT ORDER IN.
--- NOTE | 2017-01-18 12:01 | Cons- Nephrology ---
General Information and HPI Consulting Request Date of Consult: 01/18/17 Requested By: PIEDAD STREET,IRA Pham Reason for Consult: Evaluation and management of end-stage renal disease Source of Information: patient, old records Exam Limitations: no limitations History of Present Illness: This 71-year-old gentleman has a history of progressive chronic kidney disease due to diabetes and hypertension. He also has a history of congestive heart failure and is status post an AICD placement. He presented to the emergency room with a chief complaint of fevers cough. He is now referred to observation. He also has a history of obstructive sleep apnea, COPD, and MGUS. He is dialyzed 3 times a week at [facility]. His last hemodialysis was on Monday. He left with a weight of 84 kg. He gained 3 kg over the weekend. He was also in the emergency room Monday evening with a chief complaint of a sore throat. He now reports shortness of breath and feeling very poorly. Complains of some chills. He has also had some chest pain and wheezing. He seems rather tired of the dialysis. He was [facility] from [facility] on December 31. There are concerns for having a pneumonia, however, the CAT scan did not reveal any infiltrates. Allergies/Medications Allergies: Coded Allergies: NO KNOWN ALLERGIES (10/04/16) Home Med List: Albuterol Sulfate 0.63 MG/3 ML VIAL.NEB 1 Vial INH/SALIMA TID PRN COPD (Reported ) Albuterol Sulfate (Proventil Hfa) 90 MCG HFA.AER.AD 2 PUF INH 4 TIMES/DAY PRN COPD (Reported) Allopurinol 100 MG TABLET 1 TAB PO DAILY GOUT Aspirin (Ecotrin*) 81 MG TABLET.DR 1 TAB PO DAILY Heart Health (Reported) Budesonide/Formoterol Fumarate (Symbicort 80-4.5 Mcg Inhaler) 80 MCG-4.5 MCG/ ACTUATION HFA.AER.AD 2 PUF INH BID copd Calcitriol 1 MCG/ML AMPUL 1 MCG IV MoWeFr WITH DIALYSIS Calcium Carbonate 500 MG CALCIUM (1,250 MG) TABLET 1 TAB PO TIDAC ESRD Colchicine 0.6 MG TABLET 1 TAB PO DAILY GOUT Folic Acid 1 MG TABLET 1 TAB PO DAILY SUPPLEMENT (Reported) Furosemide (Lasix) 80 MG TABLET 1 TAB PO DAILY CHF (Reported) Guaifenesin (Mucinex) 600 MG TAB.ER.12H 1 TAB PO BID MUCOLYTIC Insulin Lispro (Humalog) 100 UNIT/ML VIAL diabetes (Reported) Blood sugar Insulin dose < 80mg/dl No dose 80-150 mg/dl no dose 151-200mg/dl 1 unit 201-250mg/dl 2 units 251-300mg/dl 3 units 301-350mg/dl 4 units 351-400mg/dl 6 units 351-400mg/dl 6 units > 400 8 call PLEASE RESUME ON MonDec 151-200 0 Isosorbide Mononitrate (Isosorbide Mononitrate ER) 60 MG TAB.ER.24H 1 TAB PO DAILY HTN (Reported) Loratadine (Claritin) 10 MG TABLET 1 TAB PO DAILY NASAL CONGESTION Metoprolol Tartrate (Lopressor) 50 MG TABLET 1 TAB PO BID HTN (Reported) Mometasone Furoate (Nasonex) 50 MCG SPRAY.PUMP 2 SPRAY NASB DAILY NASAL CONGESTION Omeprazole 20 MG CAPSULE.DR 1 CAP PO DAILY GERD (Reported) Prednisone (Unknown Strength) TABLET (Unknown Dose) PO AD STEROID (Reported) Simvastatin (Zocor*) 20 MG TABLET 1 TAB PO QPM Cholesterol (Reported) Warfarin Sodium (Coumadin) 5 MG TABLET 0.5-1 TAB PO AD BLOOD THINNER ( Reported) please dose Coumadin as per INR. Review of Systems Review of Systems Constitutional: Reports: chills, fever, malaise, weakness. Denies: diaphoresis. EENTM: Denies: blurred vision, double vision. Cardiovascular: Reports: chest pain, orthopena. Denies: edema. Respiratory: Reports: cough, hemoptysis, orthopnea, short of breath. GI: Denies: abdominal pain, constipation, melena, nausea, changes in stool. Musculoskeletal: Denies: back pain, gout, joint pain, joint swelling. Skin: Denies: dryness, erythema, jaundice. Neurological/Psychological: Denies: confusion, dementia. Hematologic/Endocrine: Denies: bruising, bleeding, polyuria. 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 Psychosocial History Who Do You Live With? self Services at Home: None Primary Language: Wolof Smoking Status: Former Smoker Functional Ability ADLs Independent: dressing, eating, toileting, bathing. Ambulation: independent IADLs Independent: shopping, housework, finances, food prep, telephone, transportation , medication admin. ECHO Results (as available) Date of last Echo 09/06/17 EF% 50 Exam & Diagnostic Data Vital Signs and I&O Vital Signs Date Time Temp Pulse Resp B/P Pulse O2 O2 Flow FiO2 Ox Delivery Rate 01/18 1141 97.8 86 22 128/67 93 Nasal 2.0L Cannula 01/18 1059 76 139/53 01/18 1008 97.7 01/18 1005 98.0 94 26 121/56 94 Nasal 6.0L Cannula 01/18 0849 97.0 90 18 128/59 95 Nasal 2.0L Cannula 01/18 0731 97.8 84 24 142/56 96 Nasal 2.0L Cannula 01/18 0616 97 Nasal 3.0L Cannula 01/18 0610 91 138/65 01/18 0439 100.7 01/18 0430 94 Room Air 01/18 0430 97 Nasal 3.0L Cannula 01/18 0415 100.7 91 24 138/65 94 Nasal 2.0L Cannula Intake & Output 01/18 1600 01/18 0400 01/17 1600 01/17 0400 01/16 1600 01/16 0400 Intake Total 100 Output Total Balance 100 Intake, IV 100 Patient 187 lb Weight Physical Exam General Appearance: well developed/nourished, no apparent distress Head: atraumatic, normal appearance, active bleeding Eyes: Bilateral: PERRL, EOMI. Neck: normal inspection, supple, trachea mid line Respiratory: decreased breath sounds, crackles, wheezing Cardiovascular: regular rate/rhythm Peripheral Pulses: 2+ tibialis posterior (R), 2+ tibialis posterior (L), 2+ dorsalis pedis (R), 2+ dorsalis pedis (L) Gastrointestinal: normal bowel sounds, soft, non-tender, no organomegaly, no abdominal bruits. His abdomen however seems to be distended. Back: normal inspection, normal range of motion Extremities: normal inspection, positive edema Neurologic/Psych: no motor/sensory deficits, awake, alert, oriented x 3 Skin: intact, normal color, warm/dry Results Pertinent Lab Results: Laboratory Tests 01/18 01/18 01/18 01/18 01/18 0932 0932 0845 0670 0430 Blood Gas pH (7.35 - 7.45 PH) 7.25 *L pCO2 (35 - 45 TORR) 38 pO2 (80 - 100 TORR) 118 H HCO3 (21 - 28 MEQ/L) 16 L ABG O2 Sat (Measured) (>96.0 %) 96.0 Carboxyhemoglobin (1.5 - 5.0 %) 1.2 L O2 Concentration % 3L O2 Delivery Method NC Chemistry Lactic Acid (0.7 - 2.1 mmol/L) 0.8 Cancelled 1.5 Troponin I (<0.11 ng/ml) 0.09 Coagulation PT (9.4 - 12.5 SEC) 27.4 H INR (0.90 - 1.17) 2.63 H Miscellaneous Phlebotomy Draw Site RIGHT RADIAL 01/18 0430 Chemistry Sodium (137 - 145 mmol/L) 142 Potassium (3.5 - 5.1 mmol/L) 4.4 Chloride (98 - 107 mmol/L) 105 Carbon Dioxide (22 - 30 mmol/L) 19 L Anion Gap (5 - 16) 18 H BUN (9 - 20 mg/dL) 53 H Creatinine (0.7 - 1.2 mg/dL) 6.6 *H Estimated GFR (>60 ml/min) 8 L BUN/Creatinine Ratio (7 - 25 %) 8.0 Glucose (65 - 99 mg/dL) 115 H Calcium (8.4 - 10.2 mg/dL) 8.7 Total Bilirubin (0.2 - 1.3 mg/dL) 0.6 AST (17 - 59 U/L) 20 ALT (21 - 72 U/L) 31 Alkaline Phosphatase (< 127 U/L) 134 H Troponin I (<0.11 ng/ml) 0.10 [id number] Pept (<125 pg/mL) 69439 H Total Protein (6.3 - 8.2 g/dL) 6.3 Albumin (3.5 - 5.0 g/dL) 3.7 Globulin (1.9 - 4.2 gm/dL) 2.6 Albumin/Globulin Ratio (1.1 - 2.2 %) 1.4 25-OH Vitamin D Total (30 - 100 ng/ml) 23.1 L TSH (0.270 - 4.200 uIU/mL) 1.890 Free T4 (0.78 - 2.44 ng/dL) 1.07 Hematology CBC w Diff NO MAN DIFF REQ WBC (4.8 - 10.8 /CUMM) 7.0 RBC (4.70 - 6.10 /CUMM) 3.92 L Hgb (14.0 - 18.0 G/DL) 11.1 L Hct (42 - 52 %) 34.8 L MCV (80.0 - 94.0 FL) 88.8 MCH (27.0 - 31.0 PG) 28.3 RDW (11.5 - 14.5 %) 23.2 H Plt Count (130 - 400 /CUMM) 85 L MPV (7.4 - 10.4 FL) 9.2 Gran % (42.2 - 75.2 %) 74.9 Lymphocytes % (20.5 - 51.1 %) 11.8 L Monocytes % (1.7 - 9.3 %) 10.7 H Eosinophils % (0 - 5 %) 1.3 Basophils % (0.0 - 2.0 %) 1.3 Absolute Granulocytes (1.4 - 6.5 /CUMM) 5.2 Absolute Lymphocytes (1.2 - 3.4 /CUMM) 0.8 L Absolute Monocytes (0.10 - 0.60 /CUMM) 0.7 H Absolute Eosinophils (0.0 - 0.7 /CUMM) 0.1 Absolute Basophils (0.0 - 0.2 /CUMM) 0.1 PUBS MCHC (33.0 - 37.0 G/DL) 31.9 L Imaging/Other Studies: PATIENT: DUNCAN ORELLANA PRESENT AGE: 71 PATIENT ACCOUNT NO: [id number] : 45 [facility] ORDERING PHYSICIAN: SHANIKA PALACIOS MD SERVICE DATE: 01/18/17 EXAM TYPE: CAT - CT CHEST WO IV CONTRAST EXAMINATION: CT CHEST WITHOUT CONTRAST CLINICAL INFORMATION: Cough fever in chills, evaluate for infiltrate versus volume overload. COMPARISON: 06/09/2015. TECHNIQUE: Multidetector volumetric CT imaging of the chest was done. Axial MIP volume rendering provided. Sagittal and coronal reformatted images were obtained. 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 There is a right IJ dual-lumen hemodialysis type catheter in place with its tip in the right atrium. A left-sided pectoral AICD device is identified with its lead and multiple other pacer leads identified. Patient is status post median sternotomy with multiple intact sternal wires and evidence of previous CABG. There is mild elevation of the left hemidiaphragm. LUNGS: The lungs are well expanded without evidence of a focal infiltrate. No focal groundglass opacities are identified. There is no evidence of diffuse increase interstitial markings to suggest interstitial edema. There is a stable 5 mm right upper lobe pulmonary nodule laterally abutting the pleural surface. No other pulmonary nodules are seen. There is minimal dependent atelectasis in the bilateral lower lobes posteriorly. MEDIASTINUM: There is no lower cervical, mediastinal, or hilar lymphadenopathy. 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 There is extensive atherosclerotic calcification of the aortic arch and coronary's. With CABG changes. The heart is enlarged containing an AICD and other pacer leads. A dual lumen right IJ hemodialysis type catheter is in place with its tip in the right atrium. PLEURA: There is no pleural effusion. No pleural mass or thickening. AXILLA: No lymphadenopathy. UPPER ABDOMEN: Post cholecystectomy changes, fairly extensive atherosclerotic changes. OSSEOUS STRUCTURES: No focal destructive or sclerotic osseous lesions are seen. IMPRESSION: 1. No evidence of an acute intrathoracic process. 2. Heart is enlarged with postoperative and procedural changes as noted. 3. Stable 6 mm right upper lobe pulmonary nodule. 4. Otherwise unremarkable examination. Various management parameters for solitary pulmonary nodules are in the literature. According to the Fleischner Society, recommendations for pulmonary nodules are as follows: Nodule size > 4-6 mm in LOW RISK PATIENTS: Follow up CT at 12 months; if unchanged, no further follow up. Nodule size > 4-6 mm in HIGH RISK PATIENTS: Initial follow up CT at 6-12 months, then at 18-24 months if no change. DICTATED BY: GINA CLANCY MD DATE/TIME DICTATED:01/18/17821 TRAILER CHIEF:SANG DATE/TIME TRANSCRIBED:01/18/17821 CONFIDENTIAL, DO NOT COPY WITHOUT APPROPRIATE AUTHORIZATION. <Electronically signed in Other Vendor System> SIGNED BY: GINA CLANCY MD [id number] PATIENT: DUNCAN ORELLANA PRESENT AGE: 71 PATIENT ACCOUNT NO: [id number] : 45 LOCATION: [facility] ORDERING PHYSICIAN: LUISANA SALTER MD SERVICE DATE: 01/18/17 EXAM TYPE: RAD - XRY-PORTABLE CHEST XRAY EXAMINATION: XR PORTABLE CHEST CLINICAL INFORMATION: Fever, chest congestion, dyspnea. COMPARISON: 01/16/2017 TECHNIQUE: Portable AP view of the chest was obtained. FINDINGS: The patient's glasses overlie his right chest. Left chest wall AICD/pacer is unchanged. Dialysis catheter is in place. Median sternotomy wires appear intact. The lungs are well expanded. There is persistent central vascular congestion without overt edema. No pleural effusion or pneumothorax. The cardiomediastinal silhouette remains prominent, with a calcified aorta. IMPRESSION: Central vascular prominence without overt edema. No dense consolidation. DICTATED BY: IZA KNIGHT MD DATE/TIME DICTATED:01/18/17455 TRAILER CHIEF:SANG DATE/TIME TRANSCRIBED:01/18/17455 CONFIDENTIAL, DO NOT COPY WITHOUT APPROPRIATE AUTHORIZATION. <Electronically signed in Other Vendor System> SIGNED BY: IZA KNIGHT MD 01/18 0503 Assessment/Plan Assessment/Recommendations Assessment: 1. Shortness of breath. Will plan four liters ultrafiltration today. This may be more COPD exacerbation. The official reading of his chest x-ray is not particularly impressive. However, he does appear to be fluid overloaded with lower extremity edema and a distended abdomen. 2. History of cardiomyopathy 3. End-stage renal disease due for dialysis today 4. Coronary artery disease 5. 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 History of obstructive sleep apnea 7. COPD 8. Atrial fibrillation 9. Diabetes mellitus 10. Paroxysmal atrial fibrillation. Recommendations: 1. Hemodialysis today. 2. Will require dialysis on Monday, however, he may benefit from further challenge of his dry weight tomorrow. 3. Anemia. Continue with Epogen 4. please maintain a 1000 mL per day fluid restriction 5. His diet should be a 2 g sodium 2 g potassium no concentrated sweet diet.
--- NOTE | 2017-01-18 12:05 | NUR ---
PATIENT MOVED TO ROOM 17 AND NOTED TO HAVE INFILTRATED IV AND NEW ESTABLISHED TO RT HAND #[id number] AND MEDICATED ORDERED WITH SOLU MEDROL. DR. LOERA NEUROLOGY AT BEDSIDE TO DEUCE PT. PATIENT DENIES ANY COMPLAIMTS AT PRESENT. PER DR. LOERA AND PT ALSO INFORMED THAT DIALYSIS WILL BE AROUND 1330
--- NOTE | 2017-01-18 13:24 | NUR ---
PATIENT ATE AND READY FOR DIALYSIS AND TRANSPORT ALSO CALLED
--- NOTE | 2017-01-18 13:47 | NUR ---
STILL AWAITING TRANSPORT FOR PT TO GO TO FLOOR AND RT AT BEDSIDE
--- NOTE | 2017-01-18 14:05 | NUR ---
PT ADMITTED TO ROOM 188
--- NOTE | 2017-01-18 16:36 | NUR ---
DUNCAN ORELLANA Nurse Note by: SAVANNA PIERSON I agree with the INFORMATICS SPECIALIST findings/evaluation of this patient's condition. Entered by: SAVANNA PIERSON Date: 01/18/17 Time: 4187
[2017-01-18 18:31] VITALS: BP 98/52
[2017-01-19 00:17] VITALS: BP 112/62
--- NOTE | 2017-01-19 07:22 | PN- Housestaff ---
YANETH ROLDAN 01/19/17 0722: Subjective Follow-up For: End-stage renal disease on hemodialysis COPD exacerbation Complaints: chest wall pain on coughing Tele-Events Since Last Visit: Patient has 66-82 beats per minute with PVCs Subjective: Reviewed the patient sitting comfortably on the bed he reports not to have slept well due to a lot of movement around him. The patient reports that breathing has improved he has good appetite and denies any chest pain or palpitations. Continues to feel like mucus on his throat which she cannot completely clear, but denies any sore throat. Review of Systems Constitutional: Denies: chills, fever. Cardiovascular: Denies: chest pain, palpitations. Respiratory: Reports: cough. Denies: short of breath, wheezing. Gastrointestinal: Denies: abdominal pain, constipation, nausea, vomiting. Genitourinary: Denies: no symptoms. Musculoskeletal: Reports: muscle pain. Skin: Denies: no symptoms. Objective Last 24 Hrs of Vital Signs/I&O Vital Signs Date Time Temp Pulse Resp B/P Pulse O2 O2 Flow FiO2 Ox Delivery Rate 01/19 0613 97 Nasal 2.0L Cannula 01/19 0017 97.7 88 18 112/62 93 Nasal 2.0L Cannula 01/19 0000 96 Nasal 2.0L Cannula 01/18 2152 89 115/64 01/18 1944 97 Nasal 2.0L Cannula 01/18 1831 99.0 91 20 98/52 91 Nasal 2.0L Cannula 01/18 1409 Nasal 2.0L Cannula 01/18 1349 97 Nasal 2.0L Cannula 01/18 1141 97.8 86 22 128/67 93 Nasal 2.0L Cannula 01/18 1059 76 139/53 01/18 1008 97.7 01/18 1005 98.0 94 26 121/56 94 Nasal 6.0L Cannula 01/18 0849 97.0 90 18 128/59 95 Nasal 2.0L Cannula Intake & Output 01/19 1600 01/19 0800 01/19 0000 Intake Total 500 240 Output Total 600 Balance -100 240 Intake, Oral 500 240 Output, Urine 600 Patient 174 lb Weight Physical Exam General Appearance: Alert, Oriented X3, Cooperative, No Acute Distress Skin: No Rashes, Skin around tiburcio cath is not erythematous HEENT: Atraumatic, Mucous Membr. moist/pink Neck: Supple, No JVD Cardiovascular: Normal S1, Normal S2 Lungs: Bilateral brocnchial breath sounds Abdomen: Normal Bowel Sounds, Soft Neurological: Normal Speech Extremities: No Clubbing, No Cyanosis, No Edema Current Medications: Current Medications Sig/Johnna Start time Last Medication Dose Route Stop Time Status Admin Acetaminophen 650 MG Q6P PRN 01/18 0830 AC 01/18 PO 2017 Acetaminophen/ 1 TAB Q6P PRN 01/18 0830 AC Hydrocodone Bitart PO Albuterol Sulfate 3 ML TID 01/18 1600 AC 01/19 INH 0603 Albuterol Sulfate 2 PUF 4 TIMES/DAY PRN 01/18 0845 AC 01/18 INH 1059 Allopurinol 100 MG DAILY 01/18 1000 AC 01/18 PO 1059 Aspirin Buffered 81 MG DAILY 01/18 1000 AC 01/18 PO 1059 Atorvastatin Calcium 10 MG 1700 01/18 1700 AC 01/18 PO 2152 Budesonide/ 2 PUF BID 01/18 1000 AC 01/18 Formoterol Fumarate INH 2152 Calcitriol 0.25 MCG MoWeFr 01/18 0800 AC IV Colchicine 300 MCG DAILY 01/18 1000 AC 01/18 PO 1121 Epoetin Guzman 4,000 UNIT MoWeFr 01/18 0800 AC IV Folic Acid 1 MG DAILY 01/18 1000 AC 01/18 PO 1059 Furosemide 80 MG DAILY 01/19 1000 AC PO Guaifenesin 600 MG Q12 01/18 1045 AC 01/18 PO 2152 Hydromorphone HCl 0.5 MG Q6-PRN PRN 01/18 0830 AC IV Insulin Aspart 0 TIDAC 01/18 1200 AC 01/19 SC 0817 Isosorbide 60 MG DAILY 01/19 1000 AC Mononitrate PO Methylprednisolone 40 MG Q12 01/18 1000 DC 01/18 IV 2127 Metoprolol Tartrate 50 MG BID 01/18 1000 AC 01/18 PO 2152 Omeprazole 20 MG DAILY 01/18 1000 AC 01/18 PO 1059 Prednisone 40 MG DAILY 01/19 1000 AC PO Warfarin Sodium 2.5 MG COUMADIN 1700 ONE 01/18 1700 DC 01/18 PO 01/18 1701 2152 Last 24 Hrs of Lab/Satnam Results Last 24 Hrs of Labs/Mics: Laboratory Tests 01/19/17 0720: Sodium Pending, Potassium Pending, Chloride Pending, Carbon Dioxide Pending, Anion Gap Pending, BUN Pending, Creatinine Pending, BUN/Creatinine Ratio Pending , Magnesium Pending, PT Pending, INR Pending, CBC w Diff Pending, WBC Pending, RBC Pending, Hgb Pending, Hct Pending, MCV Pending, MCH Pending, RDW Pending, Plt Count Pending, MPV Pending, PUBS MCHC Pending 01/18/17 1520: Hep Bs Antigen Pending, Hep Bs Antibody Pending 01/18/17 1300: Troponin I Cancelled 01/18/17 1246: Urinalysis MOD H, Urine Color YEL, Urine Clarity HAZY H, Urine pH 5.5, Ur Specific [place] 1.025, Urine Protein 30 H, Urine Ketones NEG, Urine Nitrite NEG, Urine Bilirubin NEG, Urine Urobilinogen 0.2, Ur Leukocyte Esterase TRACE H , Ur Microscopic SEDIMENT EXAMINED, Urine RBC 25-50 H, Urine WBC 25-50 H, Ur Epithelial Cells RARE, Urine Bacteria FEW H, Granular Casts RARE H, Urine Mucus RARE, Urine Hemoglobin MOD H, Urine Glucose NEG 01/18/17 0932: Troponin I 0.09 01/18/17 0932: Lactic Acid 0.8, PT 27.4 H, INR 2.63 H 01/18/17 0845: pH 7.25 *L, pCO2 38, pO2 118 H, HCO3 16 L, ABG O2 Sat (Measured) 96.0, Carboxyhemoglobin 1.2 L, O2 Concentration % 3L, O2 Delivery Method NC, Phlebotomy Draw Site RIGHT RADIAL Microbiology 01/18 1246 URINE ROUT: Legionella Antigen - COMP 01/18 1246 URINE ROUT: Streptococcus pneumoniae Antigen (M - COMP 01/18 1246 URINE ROUT: Urine Culture - RECD 01/19 920 NASOPHARYN: Influenza Virus A & B Rapid Smear - COMP 01/19 836 LOWER RESP: Respiratory Culture - COLB 01/19 836 LOWER RESP: Gram Stain - COLB Assessment/Plan Assessment: This is a 71-year-old gentleman with multiple medical problems namely hypertension, hyperlipidemia, systolic heart failure, COPD, ESRD requiring hemodialysis through an tiburcio cath Monday, FREDY, diabetes mellitus , gout, atrial fibrillation; recent hospitalization at [facility] just discharged 4 days [employer], 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 Patient had a negative flu test and overnight has remained afebrile without focus of infection and is being monitored off antibiotics. End-stage renal disease The patient is on hemodialysis Monday and Monday Patient received hemodialysis yesterday COPD exacerbation On presentation the patient has bilateral wheezes was started on IV Solu-Medrol 40 every 12 hours. He has been a significant improvement in respiratory function. We will transition the patient to oral prednisone with a quick taper Paroxysmal A. fib therapeutic INR of around 2.6 Received 2.5 mg of Coumadin Will recheck INR today and continue to dose Coumadin accordingly Insulin-dependent diabetes mellitus Patient started on insulin sliding scale Fingersticks for the past 24 hours 137, 137, 181, 252, 252, 311 Continue with fingersticks and insulin Problem List: 1. Fever 2. Weakness 3. End-stage renal disease on hemodialysis 4. CONGESTIVE HEART FAILURE Pain Ratin Pain Location: None Pain Goal: Remain pain free Pain Plan: Tynelol when necessary Tomorrow's Labs & Rationales: None will check labs postdialysis DVT/Prophylaxis: pharmacological IRA HERBERT MD 01/19/17 1348: Attending MD Review Statement Attending Statement Attending MD Statement: examined this patient, discuss w/resident/PA/BROADCAST SUPERVISOR, agreed w/resident/PA/BROADCAST SUPERVISOR, reviewed EMR data (avail), discussed with nursing, discussed with case mgmt, reviewed images, amended to note Attending Assessment/Plan: Patient is walking all over the unit. He appears to be doing better than yesterday but when questioned he says he feels terrible. He still complaining of cough and sputum. I spoke to Dr. Hackett who believes he is below his dry weight and doesn't need any additional dialysis today. He is a fairly complex 71-year-old with COPD, ESRD on hemodialysis, diabetes, A. fib on Coumadin with recurrent admissions. Part of the problem is the late outpatient dialysis slot which makes driving back in the dark after his dialysis very difficult and as a result of which makes follow-up with close compliance challenging. Case management and nephrology is actively working on this. We are watching him off antibiotics. His flu swab came back negative. We'll dose his Coumadin to keep his INR therapeutic. For now we switched him from IV prednisone to by mouth and will follow closely.
[2017-01-19 08:14] LABS: ABSOLUTE BASOPHIL COUNT 0 /CUMM (0.0-0.2); ABSOLUTE EOSINOPHIL COUNT 0 /CUMM (0.0-0.7); ABSOLUTE GRANULOCYTE CT 3.4 /CUMM (1.4-6.5); ABSOLUTE LYMPH COUNT 0.3 /CUMM (1.2-3.4); ABSOLUTE MONOCYTE COUNT 0.2 /CUMM (0.10-0.60); BASOPHIL % 0.3 % (0.0-2.0); EOSINOPHIL % 0 % (0-5); HEMATOCRIT 36.8 % (42-52); MEAN CORPUSCULAR HGB 28.1 PG (27.0-31.0); MEAN CORPUSCULAR HGB CONC 31.9 G/DL (33.0-37.0); MEAN CORPUSCULAR VOLUME 87.9 FL (80.0-94.0); MEAN PLATELET VOLUME 9.9 FL (7.4-10.4); PLATELET COUNT 104 /CUMM (130-400); RBC DISTRIBUTION WIDTH 22.8 % (11.5-14.5); RED BLOOD CELL CT 4.18 /CUMM (4.70-6.10)
[2017-01-19 08:35] VITALS: BP 120/68
[2017-01-19 08:44] LABS: PT 22.8 SEC (9.4-12.5)
[2017-01-19 09:40] LABS: GRANULOCYTE % 86.1 % (42.2-75.2)
--- NOTE | 2017-01-19 10:48 | PN- Nephrology ---
Assessment/Plan Assessment: 1. Shortness of breath. Suspect that this is more COPD exacerbation at this point. He is actually below his dry weight if the weights are to be believed. 2. History of cardiomyopathy 3. End-stage renal disease due for dialysis today 4. Coronary artery disease 5. 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 History of obstructive sleep apnea 7. COPD 8. Atrial fibrillation 9. Diabetes mellitus 10. Paroxysmal atrial fibrillation. Suggestion: 1. No dialysis today 2. Dialysis again tomorrow. 3. She had raised concerns with regards to his time at the outpatient dialysis clinic. Such issues will need to be taken up with the clinic directly. Although accommodations can often be made in patient's because of transport problems, the fact is that the earlier first and second shifts generally are taken by people who have been at the dialysis clinic for a longer period of time. In essence, this is a seniority system. It may be reasonable to discuss this with the dialysis clinic once again. Given the patient's behavior so far, it would not be surprising if his frequent visits to the ER will continue even after his dialysis slot is changed. Subjective Subjective: Patient is still complaining of sense in his throat that he cannot clear phlegm area he describes it almost feeling like a ball valve soda phenomena. Objective Vital Signs and I&Os Vital Signs Date Time Temp Pulse Resp B/P Pulse O2 O2 Flow FiO2 Ox Delivery Rate 01/19 1000 97.1 74 20 154/70 01/19 0959 74 154/70 01/19 0850 97 Nasal 1.5L Cannula 01/19 0835 97.1 74 20 120/68 96 Nasal 2.0L Cannula 01/19 0613 97 Nasal 2.0L Cannula 01/19 0017 97.7 88 18 112/62 93 Nasal 2.0L Cannula 01/19 0000 96 Nasal 2.0L Cannula 01/18 2152 89 115/64 01/18 1944 97 Nasal 2.0L Cannula 01/18 1831 99.0 91 20 98/52 91 Nasal 2.0L Cannula 01/18 1409 Nasal 2.0L Cannula 01/18 1349 97 Nasal 2.0L Cannula 01/18 1141 97.8 86 22 128/67 93 Nasal 2.0L Cannula 01/18 1059 76 139/53 Intake & Output 01/19 1600 01/19 0400 01/18 1600 01/18 0400 01/17 1600 01/17 0400 Intake Total 500 240 100 Output Total 600 Balance -100 240 100 Intake, IV 100 Intake, Oral 500 240 Output, Urine 600 Patient 174 lb 187 lb Weight Physical Exam: General Appearance: well developed/nourished, no apparent distress Head: atraumatic, normal appearance, active bleeding Eyes: Bilateral: PERRL, EOMI. Neck: normal inspection, supple, trachea mid line Respiratory: Patient is mainly wheezing today Cardiovascular: regular rate/rhythm Gastrointestinal: normal bowel sounds, soft, non-tender, no organomegaly, no abdominal bruits. His abdomen however seems to be distended. Back: normal inspection, normal range of motion Extremities: Chronic venous stasis changes. No sacral or lower extremity edema. Neurologic/Psych: no gross motor/sensory deficits, awake, alert, oriented x 3 Skin: intact, normal color, warm/dry Current Medications: Current Medications Sig/Johnna Start time Last Medication Dose Route Stop Time Status Admin Acetaminophen 650 MG Q6P PRN 01/18 0830 AC 01/18 PO 2017 Acetaminophen/ 1 TAB Q6P PRN 01/18 0830 AC Hydrocodone Bitart PO Albuterol Sulfate 3 ML TID 01/18 1600 AC 01/19 INH 0846 Albuterol Sulfate 2 PUF 4 TIMES/DAY PRN 01/18 0845 AC 01/18 INH 1059 Allopurinol 100 MG DAILY 01/18 1000 AC 01/19 PO 1000 Aspirin Buffered 81 MG DAILY 01/18 1000 AC 01/19 PO 1000 Atorvastatin Calcium 10 MG 1700 01/18 1700 AC 01/18 PO 2152 Budesonide/ 2 PUF BID 01/18 1000 AC 01/19 Formoterol Fumarate INH 0958 Calcitriol 0.25 MCG MoWeFr 01/18 0800 AC IV Colchicine 300 MCG DAILY 01/18 1000 AC 01/19 PO 1001 Epoetin Guzman 4,000 UNIT MoWeFr 01/18 0800 AC IV Folic Acid 1 MG DAILY 01/18 1000 AC 01/19 PO 1000 Furosemide 80 MG DAILY 01/19 1000 AC 01/19 PO 1000 Guaifenesin 600 MG Q12 01/18 1045 AC 01/19 PO 1000 Hydromorphone HCl 0.5 MG Q6-PRN PRN 01/18 0830 AC IV Insulin Aspart 0 TIDAC 03/15 1200 AC 01/19 SC 0817 Isosorbide 60 MG DAILY 01/19 1000 AC 01/19 Mononitrate PO 1000 Methylprednisolone 40 MG Q12 01/18 1000 DC 01/18 IV 2127 Metoprolol Tartrate 50 MG BID 01/18 1000 AC 01/19 PO 0959 Omeprazole 20 MG DAILY 01/18 1000 AC 01/19 PO 1000 Prednisone 40 MG DAILY 01/19 1000 AC 01/19 PO 1000 Warfarin Sodium 2.5 MG COUMADIN 1700 ONE 01/18 1700 DC 01/18 PO 01/18 1701 2152 Results Pertinent Lab Results: Laboratory Tests 01/19 01/18 0720 1520 Chemistry Sodium (137 - 145 mmol/L) 138 Potassium (3.5 - 5.1 mmol/L) 4.2 Chloride (98 - 107 mmol/L) 97 L Carbon Dioxide (22 - 30 mmol/L) 23 Anion Gap (5 - 16) 18 H BUN (9 - 20 mg/dL) 45 H Creatinine (0.7 - 1.2 mg/dL) 4.7 H Estimated GFR (>60 ml/min) 12 L BUN/Creatinine Ratio (7 - 25 %) 9.6 Magnesium (1.6 - 2.3 mg/dL) 1.9 Coagulation PT (9.4 - 12.5 SEC) 22.8 H INR (0.90 - 1.17) 2.19 H Hematology CBC w Diff NO MAN DIFF REQ WBC (4.8 - 10.8 /CUMM) 4.0 L RBC (4.70 - 6.10 /CUMM) 4.18 L Hgb (14.0 - 18.0 G/DL) 11.7 L Hct (42 - 52 %) 36.8 L MCV (80.0 - 94.0 FL) 87.9 MCH (27.0 - 31.0 PG) 28.1 RDW (11.5 - 14.5 %) 22.8 H Plt Count (130 - 400 /CUMM) 104 L MPV (7.4 - 10.4 FL) 9.9 Gran % (42.2 - 75.2 %) 86.1 H Lymphocytes % (20.5 - 51.1 %) 8.3 L Monocytes % (1.7 - 9.3 %) 5.3 Eosinophils % (0 - 5 %) 0 Basophils % (0.0 - 2.0 %) 0.3 Absolute Granulocytes (1.4 - 6.5 /CUMM) 3.4 Absolute Lymphocytes (1.2 - 3.4 /CUMM) 0.3 L Absolute Monocytes (0.10 - 0.60 /CUMM) 0.2 Absolute Eosinophils (0.0 - 0.7 /CUMM) 0 Absolute Basophils (0.0 - 0.2 /CUMM) 0 PUBS MCHC (33.0 - 37.0 G/DL) 31.9 L Serology Hep Bs Antigen (NONREACTIVE) NONREACTIVE Hep Bs Antibody (NONREACTIVE) NONREACTIVE 01/18 01/18 01/18 1300 1246 0932 Chemistry Troponin I (<0.11 ng/ml) Cancelled 0.09 Urines Urinalysis MOD H Urine Color (YEL,AMB,STR) YEL Urine Clarity (CLEAR) HAZY H Urine pH (5.0 - 8.0) 5.5 Ur Specific [place] (1.001 - 1.035) 1.025 Urine Protein (NEG,<30 MG/DL) 30 H Urine Ketones (NEG) NEG Urine Nitrite (NEG) NEG Urine Bilirubin (NEG) NEG Urine Urobilinogen (0.1 - 1.0 EU/dl) 0.2 Ur Leukocyte Esterase (NEG) TRACE H Ur Microscopic SEDIMENT EXAMINED Urine RBC (0 - 5 /HPF) 25-50 H Urine WBC (0 - 2 /HPF) 25-50 H Ur Epithelial Cells (NONE,FEW) RARE Urine Bacteria (NEG/NONE) FEW H Granular Casts (NONE /LPF) RARE H Urine Mucus (FEW,NONE) RARE Urine Hemoglobin (NEG) MOD H Urine Glucose (N MG/DL) NEG 01/18 01/18 01/18 01/18 0932 0845 0634 0430 Blood Gas pH (7.35 - 7.45 PH) 7.25 *L pCO2 (35 - 45 TORR) 38 pO2 (80 - 100 TORR) 118 H HCO3 (21 - 28 MEQ/L) 16 L ABG O2 Sat (Measured) (>96.0 %) 96.0 Carboxyhemoglobin (1.5 - 5.0 %) 1.2 L O2 Concentration % 3L O2 Delivery Method NC Chemistry Lactic Acid (0.7 - 2.1 mmol/L) 0.8 Cancelled 1.5 Coagulation PT (9.4 - 12.5 SEC) 27.4 H INR (0.90 - 1.17) 2.63 H Miscellaneous Phlebotomy Draw Site RIGHT RADIAL 01/18 0430 Chemistry Sodium (137 - 145 mmol/L) 142 Potassium (3.5 - 5.1 mmol/L) 4.4 Chloride (98 - 107 mmol/L) 105 Carbon Dioxide (22 - 30 mmol/L) 19 L Anion Gap (5 - 16) 18 H BUN (9 - 20 mg/dL) 53 H Creatinine (0.7 - 1.2 mg/dL) 6.6 *H Estimated GFR (>60 ml/min) 8 L BUN/Creatinine Ratio (7 - 25 %) 8.0 Glucose (65 - 99 mg/dL) 115 H Calcium (8.4 - 10.2 mg/dL) 8.7 Total Bilirubin (0.2 - 1.3 mg/dL) 0.6 AST (17 - 59 U/L) 20 ALT (21 - 72 U/L) 31 Alkaline Phosphatase (< 127 U/L) 134 H Troponin I (<0.11 ng/ml) 0.10 Erp-A-Esmnqigedzi Pept (<125 pg/mL) 75515 H Total Protein (6.3 - 8.2 g/dL) 6.3 Albumin (3.5 - 5.0 g/dL) 3.7 Globulin (1.9 - 4.2 gm/dL) 2.6 Albumin/Globulin Ratio (1.1 - 2.2 %) 1.4 25-OH Vitamin D Total (30 - 100 ng/ml) 23.1 L TSH (0.270 - 4.200 uIU/mL) 1.890 Free T4 (0.78 - 2.44 ng/dL) 1.07 Hematology CBC w Diff NO MAN DIFF REQ WBC (4.8 - 10.8 /CUMM) 7.0 RBC (4.70 - 6.10 /CUMM) 3.92 L Hgb (14.0 - 18.0 G/DL) 11.1 L Hct (42 - 52 %) 34.8 L MCV (80.0 - 94.0 FL) 88.8 MCH (27.0 - 31.0 PG) 28.3 RDW (11.5 - 14.5 %) 23.2 H Plt Count (130 - 400 /CUMM) 85 L MPV (7.4 - 10.4 FL) 9.2 Gran % (42.2 - 75.2 %) 74.9 Lymphocytes % (20.5 - 51.1 %) 11.8 L Monocytes % (1.7 - 9.3 %) 10.7 H Eosinophils % (0 - 5 %) 1.3 Basophils % (0.0 - 2.0 %) 1.3 Absolute Granulocytes (1.4 - 6.5 /CUMM) 5.2 Absolute Lymphocytes (1.2 - 3.4 /CUMM) 0.8 L Absolute Monocytes (0.10 - 0.60 /CUMM) 0.7 H Absolute Eosinophils (0.0 - 0.7 /CUMM) 0.1 Absolute Basophils (0.0 - 0.2 /CUMM) 0.1 PUBS MCHC (33.0 - 37.0 G/DL) 31.9 L
--- NOTE | 2017-01-19 13:19 | Admission Certification ---
Admission Certification Certification Statement - As attending physician, I certify that at the time of - admission, based on clinical presentation, severity of - symptoms, need for further diagnostic testing and - therapeutic interventions, and risk of adverse outcomes - without in-hospital treatment, in my clinical assessment, - this patient requires an acute hospital stay for a minimum - of two nights or longer. I have also considered psychsocial - factors such as support system, advanced age, financial - issues, cognitive issues, and failed out-patient treatments, - past re-admission history, safety of patient, and lack of - compliance as applicable. Specific rationale supporting this admission is: Underlying ESRD on hemodialysis, chronic respiratory failure with complaints of cough and fever.
--- NOTE | 2017-01-19 13:22 | Cons- Cardiology ---
General Information and HPI Consulting Request Date of Consult: 01/19/17 Requested By: PIEDAD STREET,IRA Pham Reason for Consult: Increasing shortness of breath; rule out congestive heart failure Source of Information: patient, old records History of Present Illness: This is a 71-year-old gentleman with multiple medical problems including hypertension, hyperlipidemia, HFrEF, COPD, ESRD requiring hemodialysis Monday, FREDY, diabetes mellitus, gout, atrial fibrillation; recent hospitalization at [facility] just discharged 4 days ago presents to the emergency room with a three-day history of chest tightness and pressure, fevers, productive cough. Patient states that a day after he left the hospital he started to experience his problems with dyspnea on exertion. States that the chest tightness does alleviate with rest but there is also a pleuritic nature to the symptoms. He has been compliant with his inhalers and nebulizer therapy. Admits to using 2 pillows a night which is his baseline. States that he did go to his dialysis session on Monday. However he feels that his legs are swollen more than before. Allergies/Medications Allergies: Coded Allergies: NO KNOWN ALLERGIES (10/04/16) Home Med List: Albuterol Sulfate 0.63 MG/3 ML VIAL.NEB 1 Vial INH/SALIMA TID PRN COPD (Reported ) Albuterol Sulfate (Proventil Hfa) 90 MCG HFA.AER.AD 2 PUF INH 4 TIMES/DAY PRN COPD (Reported) Allopurinol 100 MG TABLET 1 TAB PO DAILY GOUT Aspirin (Ecotrin*) 81 MG TABLET.DR 1 TAB PO DAILY Heart Health (Reported) Budesonide/Formoterol Fumarate (Symbicort 80-4.5 Mcg Inhaler) 80 MCG-4.5 MCG/ ACTUATION HFA.AER.AD 2 PUF INH BID copd Calcitriol 1 MCG/ML AMPUL 1 MCG IV MoWeFr WITH DIALYSIS Calcium Carbonate 500 MG CALCIUM (1,250 MG) TABLET 1 TAB PO TIDAC ESRD Colchicine 0.6 MG TABLET 1 TAB PO DAILY GOUT Folic Acid 1 MG TABLET 1 TAB PO DAILY SUPPLEMENT (Reported) Furosemide (Lasix) 80 MG TABLET 1 TAB PO DAILY CHF (Reported) Guaifenesin (Mucinex) 600 MG TAB.ER.12H 1 TAB PO BID MUCOLYTIC Insulin Lispro (Humalog) 100 UNIT/ML VIAL diabetes (Reported) Blood sugar Insulin dose < 80mg/dl No dose 80-150 mg/dl no dose 151-200mg/dl 1 unit 201-250mg/dl 2 units 251-300mg/dl 3 units 301-350mg/dl 4 units 351-400mg/dl 6 units 351-400mg/dl 6 units > 400 8 call PLEASE RESUME ON MonDec 151-200 0 Isosorbide Mononitrate (Isosorbide Mononitrate ER) 60 MG TAB.ER.24H 1 TAB PO DAILY HTN (Reported) Loratadine (Claritin) 10 MG TABLET 1 TAB PO DAILY NASAL CONGESTION Metoprolol Tartrate (Lopressor) 50 MG TABLET 1 TAB PO BID HTN (Reported) Mometasone Furoate (Nasonex) 50 MCG SPRAY.PUMP 2 SPRAY NASB DAILY NASAL CONGESTION Omeprazole 20 MG CAPSULE.DR 1 CAP PO DAILY GERD (Reported) Simvastatin (Zocor*) 20 MG TABLET 1 TAB PO QPM Cholesterol (Reported) Warfarin Sodium (Coumadin) 5 MG TABLET 0.5-1 TAB PO AD BLOOD THINNER ( Reported) please dose Coumadin as per INR. Current Medications: Current Medications Sig/Johnna Start time Last Medication Dose Route Stop Time Status Admin Acetaminophen 650 MG Q6P PRN 01/18 0830 AC 01/18 PO 2017 Acetaminophen/ 1 TAB Q6P PRN 01/18 0830 AC Hydrocodone Bitart PO Albuterol Sulfate 3 ML TID 01/18 1600 AC 01/19 INH 0846 Albuterol Sulfate 2 PUF 4 TIMES/DAY PRN 01/18 0845 AC 01/18 INH 1059 Allopurinol 100 MG DAILY 01/18 1000 AC 01/19 PO 1000 Aspirin Buffered 81 MG DAILY 01/18 1000 AC 01/19 PO 1000 Atorvastatin Calcium 10 MG 1700 01/18 1700 AC 01/18 PO 2152 Budesonide/ 2 PUF BID 01/18 1000 AC 01/19 Formoterol Fumarate INH 0958 Calcitriol 0.25 MCG MoWeFr 01/18 0800 AC IV Colchicine 300 MCG DAILY 01/18 1000 AC 01/19 PO 1001 Epoetin Guzman 4,000 UNIT MoWeFr 01/18 0800 AC IV Folic Acid 1 MG DAILY 01/18 1000 AC 01/19 PO 1000 Furosemide 80 MG DAILY 01/19 1000 AC 01/19 PO 1000 Guaifenesin 600 MG Q12 01/18 1045 AC 01/19 PO 1000 Hydromorphone HCl 0.5 MG Q6-PRN PRN 01/18 0830 AC IV Insulin Aspart 0 TIDAC 01/18 1200 AC 01/19 SC 1228 Isosorbide 60 MG DAILY 01/19 1000 AC 01/19 Mononitrate PO 1000 Methylprednisolone 40 MG Q12 01/18 1000 DC 01/18 IV 2127 Metoprolol Tartrate 50 MG BID 01/18 1000 AC 01/19 PO 0959 Omeprazole 20 MG DAILY 01/18 1000 AC 01/19 PO 1000 Prednisone 40 MG DAILY 01/19 1000 AC 01/19 PO 1000 Warfarin Sodium 2.5 MG COUMADIN 1700 ONE 01/18 1700 DC 01/18 PO 01/18 1701 2152 Past History Travel History Traveled to [place] past 21 day No Medical History Neurological: NONE Cardiovascular: AFIB, CAD, cardiomyopathy, hypertension, hyperlipidemia, systolic CHF, PACEMAKER/DEFIBRILLATOR Respiratory: COPD, obstructive sleep apnea Gastrointestinal: GERD, he had a bleeding polyp in November of this year coupled with a nonbleeding angiodysplasia Renal: ESRD on HD Musculoskeletal: gout Psychiatric: NONE Endocrine: diabetes Blood Disorders: anemia, MGUS Cancer(s): NONE I O PSYCHOLOGIST/Reproductive: NONE Surgical History Surgical History: PACEMAKER,( AICD) SALMA catheter Family History Relations & Conditions If Any: MOTHER (Lung cancer). Psychosocial History Who Do You Live With? self Services at Home: None Primary Language: Yakut Smoking Status: Former Smoker Functional Ability ADLs Independent: dressing, eating, toileting, bathing. Ambulation: independent IADLs Independent: shopping, housework, finances, food prep, telephone, transportation , medication admin. ECHO Results (as available) Date of last Echo 09/06/17 EF% 50 Report: CONCLUSIONS 1. Fibrocalcific degeneration is present in the aortic valve with evidence of moderate valvular stenosis and an estimated JUJU of 1.1 cm2 2. MItral leaflet thickening is present with mild to moderate mitral insufficiency and mild to moderate left atrial enlargement. 3. A small pericardial effusion is present which is hemodynamically insignificant. 4. The left ventricular chamber size is normal with borderline to mild LVH and an ejection fraction of 50-55%. Mild localized inferoposterior hypokinesia is present. 5. Mild to moderate tricuspid insufficiency is present with mild right heart chamber enlargement and moderate pulmonary hypertension with an estimated RV systolic pressure of 52 mmHg. 6. Pacemaker wires are noted in the right heart chambers. Exam & Diagnostic Data Vital Signs and I&O Vital Signs Date Time Temp Pulse Resp B/P Pulse O2 O2 Flow FiO2 Ox Delivery Rate 01/19 1000 97.1 74 20 154/70 01/19 0959 74 154/70 01/19 0850 97 Nasal 1.5L Cannula 01/19 0835 97.1 74 20 120/68 96 Nasal 2.0L Cannula 01/19 0613 97 Nasal 2.0L Cannula 01/19 0017 97.7 88 18 112/62 93 Nasal 2.0L Cannula 01/19 0000 96 Nasal 2.0L Cannula 01/18 2152 89 115/64 01/18 1944 97 Nasal 2.0L Cannula 01/18 1831 99.0 91 20 98/52 91 Nasal 2.0L Cannula 01/18 1409 Nasal 2.0L Cannula 01/18 1349 97 Nasal 2.0L Cannula Intake & Output 01/19 1600 01/19 0800 01/19 0000 01/18 1600 01/18 0800 01/18 0000 Intake Total 500 240 100 Output Total 600 Balance -100 240 100 Intake, IV 100 Intake, Oral 500 240 Output, Urine 600 Patient 174 lb 187 lb 187 lb Weight Physical Exam: General Appearance Alert, Oriented X3, Cooperative, No Acute Distress Skin No Rashes, No Breakdown, SALMA CATH ON RIGHT CHEST, NO SURROUNDING ERRYTHEMA OR DRAINAGE HEENT Atraumatic, PERRLA, EOMI Cardiovascular Regular Rate, Normal S1, Normal S2 Lungs B/L WHEEZING, CRACKLES & RONCHII Abdomen Normal Bowel Sounds, Soft, No Tenderness Neurological Normal Speech, Strength at 5/5 X4 Ext Extremities No Clubbing, No Cyanosis, No Edema Labs/Satnam Results: Laboratory Tests 01/19 01/18 0720 1520 Chemistry Sodium (137 - 145 mmol/L) 138 Potassium (3.5 - 5.1 mmol/L) 4.2 Chloride (98 - 107 mmol/L) 97 L Carbon Dioxide (22 - 30 mmol/L) 23 Anion Gap (5 - 16) 18 H BUN (9 - 20 mg/dL) 45 H Creatinine (0.7 - 1.2 mg/dL) 4.7 H Estimated GFR (>60 ml/min) 12 L BUN/Creatinine Ratio (7 - 25 %) 9.6 Magnesium (1.6 - 2.3 mg/dL) 1.9 Coagulation PT (9.4 - 12.5 SEC) 22.8 H INR (0.90 - 1.17) 2.19 H Hematology CBC w Diff NO MAN DIFF REQ WBC (4.8 - 10.8 /CUMM) 4.0 L RBC (4.70 - 6.10 /CUMM) 4.18 L Hgb (14.0 - 18.0 G/DL) 11.7 L Hct (42 - 52 %) 36.8 L MCV (80.0 - 94.0 FL) 87.9 MCH (27.0 - 31.0 PG) 28.1 RDW (11.5 - 14.5 %) 22.8 H Plt Count (130 - 400 /CUMM) 104 L MPV (7.4 - 10.4 FL) 9.9 Gran % (42.2 - 75.2 %) 86.1 H Lymphocytes % (20.5 - 51.1 %) 8.3 L Monocytes % (1.7 - 9.3 %) 5.3 Eosinophils % (0 - 5 %) 0 Basophils % (0.0 - 2.0 %) 0.3 Absolute Granulocytes (1.4 - 6.5 /CUMM) 3.4 Absolute Lymphocytes (1.2 - 3.4 /CUMM) 0.3 L Absolute Monocytes (0.10 - 0.60 /CUMM) 0.2 Absolute Eosinophils (0.0 - 0.7 /CUMM) 0 Absolute Basophils (0.0 - 0.2 /CUMM) 0 PUBS MCHC (33.0 - 37.0 G/DL) 31.9 L Serology Hep Bs Antigen (NONREACTIVE) NONREACTIVE Hep Bs Antibody (NONREACTIVE) NONREACTIVE 01/18 01/18 01/18 0050 2881 1383 Chemistry Troponin I (<0.11 ng/ml) Cancelled 0.09 Urines Urinalysis MOD H Urine Color (YEL,AMB,STR) YEL Urine Clarity (CLEAR) HAZY H Urine pH (5.0 - 8.0) 5.5 Ur Specific [place] (1.001 - 1.035) 1.025 Urine Protein (NEG,<30 MG/DL) 30 H Urine Ketones (NEG) NEG Urine Nitrite (NEG) NEG Urine Bilirubin (NEG) NEG Urine Urobilinogen (0.1 - 1.0 EU/dl) 0.2 Ur Leukocyte Esterase (NEG) TRACE H Ur Microscopic SEDIMENT EXAMINED Urine RBC (0 - 5 /HPF) 25-50 H Urine WBC (0 - 2 /HPF) 25-50 H Ur Epithelial Cells (NONE,FEW) RARE Urine Bacteria (NEG/NONE) FEW H Granular Casts (NONE /LPF) RARE H Urine Mucus (FEW,NONE) RARE Urine Hemoglobin (NEG) MOD H Urine Glucose (N MG/DL) NEG 01/18 01/18 01/18 01/18 0932 0845 0634 0430 Blood Gas pH (7.35 - 7.45 PH) 7.25 *L pCO2 (35 - 45 TORR) 38 pO2 (80 - 100 TORR) 118 H HCO3 (21 - 28 MEQ/L) 16 L ABG O2 Sat (Measured) (>96.0 %) 96.0 Carboxyhemoglobin (1.5 - 5.0 %) 1.2 L O2 Concentration % 3L O2 Delivery Method NC Chemistry Lactic Acid (0.7 - 2.1 mmol/L) 0.8 Cancelled 1.5 Coagulation PT (9.4 - 12.5 SEC) 27.4 H INR (0.90 - 1.17) 2.63 H Miscellaneous Phlebotomy Draw Site RIGHT RADIAL 01/18 0430 Chemistry Sodium (137 - 145 mmol/L) 142 Potassium (3.5 - 5.1 mmol/L) 4.4 Chloride (98 - 107 mmol/L) 105 Carbon Dioxide (22 - 30 mmol/L) 19 L Anion Gap (5 - 16) 18 H BUN (9 - 20 mg/dL) 53 H Creatinine (0.7 - 1.2 mg/dL) 6.6 *H Estimated GFR (>60 ml/min) 8 L BUN/Creatinine Ratio (7 - 25 %) 8.0 Glucose (65 - 99 mg/dL) 115 H Calcium (8.4 - 10.2 mg/dL) 8.7 Total Bilirubin (0.2 - 1.3 mg/dL) 0.6 AST (17 - 59 U/L) 20 ALT (21 - 72 U/L) 31 Alkaline Phosphatase (< 127 U/L) 134 H Troponin I (<0.11 ng/ml) 0.10 Las-T-Hletfloivah Pept (<125 pg/mL) 53148 H Total Protein (6.3 - 8.2 g/dL) 6.3 Albumin (3.5 - 5.0 g/dL) 3.7 Globulin (1.9 - 4.2 gm/dL) 2.6 Albumin/Globulin Ratio (1.1 - 2.2 %) 1.4 25-OH Vitamin D Total (30 - 100 ng/ml) 23.1 L TSH (0.270 - 4.200 uIU/mL) 1.890 Free T4 (0.78 - 2.44 ng/dL) 1.07 Hematology CBC w Diff NO MAN DIFF REQ WBC (4.8 - 10.8 /CUMM) 7.0 RBC (4.70 - 6.10 /CUMM) 3.92 L Hgb (14.0 - 18.0 G/DL) 11.1 L Hct (42 - 52 %) 34.8 L MCV (80.0 - 94.0 FL) 88.8 MCH (27.0 - 31.0 PG) 28.3 RDW (11.5 - 14.5 %) 23.2 H Plt Count (130 - 400 /CUMM) 85 L MPV (7.4 - 10.4 FL) 9.2 Gran % (42.2 - 75.2 %) 74.9 Lymphocytes % (20.5 - 51.1 %) 11.8 L Monocytes % (1.7 - 9.3 %) 10.7 H Eosinophils % (0 - 5 %) 1.3 Basophils % (0.0 - 2.0 %) 1.3 Absolute Granulocytes (1.4 - 6.5 /CUMM) 5.2 Absolute Lymphocytes (1.2 - 3.4 /CUMM) 0.8 L Absolute Monocytes (0.10 - 0.60 /CUMM) 0.7 H Absolute Eosinophils (0.0 - 0.7 /CUMM) 0.1 Absolute Basophils (0.0 - 0.2 /CUMM) 0.1 PUBS MCHC (33.0 - 37.0 G/DL) 31.9 L Diagnostic Data CXR Results FINDINGS: The patient's glasses overlie his right chest. Left chest wall AICD/pacer is unchanged. Dialysis catheter is in place. Median sternotomy wires appear intact. The lungs are well expanded. There is persistent central vascular congestion without overt edema. No pleural effusion or pneumothorax. The cardiomediastinal silhouette remains prominent, with a calcified aorta. IMPRESSION: Central vascular prominence without overt edema. No dense consolidation. Other Results Chest CT: IMPRESSION: 1. No evidence of an acute intrathoracic process. 2. Heart is enlarged with postoperative and procedural changes as noted. 3. Stable 6 mm right upper lobe pulmonary nodule. 4. Otherwise unremarkable examination. Assessment/Plan Assessment/Plan Assessment- 1. SIRS (fever and tachypnea), possible HCAP vs Bronchitis vs COPD exacerbation (recently d/c on 01/14); unclear source 2. Chronic HFpEF, last EF 50% - there is no evidence of overt CHF on CXR or CT chest. 3. 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 Possible COPD exacerbation 5. Anion gap 18 metabolic acidosis, likely 2/2 electrolyte imbalance, needs hemodialysis today 6. Chronic anemia, 2/2 ESRD 7. IDDM 8. FREDY, non-compliant with CPAP 9. Hx of MGUS 10. Hx of Pulmonary HTN; RVSP 52 mm Hg per recent echo 11. Paroxsymal A fib 12. Hx of pacemaker placement 13. Gout Recommenations: - COntinue current management as per the medical and Nephrology team. - Continue regular medication - No need to repeat echocardiogram at the present time. Consult Acknowledgment - Thank you for your consult request.
--- NOTE | 2017-01-19 14:11 | Patient Discharge Instructions ---
Discharge Instructions General Discharge Information You were seen/treated for: COPD exacerbation End-stage renal disease requiring hemodialysis Special Instructions: Please call and make a follow-up with her primary care physician within one week after discharge Please continue with your hemodialysis sessions Monday and Monday Acute Coronary Syndrome Inclusion Criteria At DC or during hospital stay patient has or had the following: ACS DIAGNOSIS No Discharge Core Measures Meds if any: Prescribed or Continued at Discharge Meds if any: NOT Prescribed or Continued at Discharge Congestive Heart Failure Inclusion Criteria At DC or during hospital stay patient has or had the following: CHF DIAGNOSIS No Discharge Core Measures Meds if any: Prescribed or Continued at Discharge Meds if any: NOT Prescribed or Continued at Discharge Cerebrovascular accident Inclusion Criteria At DC or during hospital stay patient has or had the following: CVA/TIA Diagnosis No Discharge Core Measures Meds if any: Prescribed or Continued at Discharge Meds if any: NOT Prescribed or Continued at Discharge Venous thromboembolism Inclusion Criteria VTE Diagnosis No VTE Type NONE VTE Confirmed by (Test) NONE Discharge Core Measures - Per Current guidelines, there needs to be overlap - treatment for the first 5 days of Warfarin therapy. - If discharged on Warfarin prior to 5 days of - overlap therapy, the patient will need to be - assessed for post discharge needs including - *Post discharge parental anticoagulation - *Warfarin and/or parental anticoagulation education - *Follow up date to check INR post discharge At least 5 days overlap therapy as Inpatient No Meds if any: Prescribed or Continued at Discharge Note: Overlap Therapy is Warfarin and Anticoagulant Meds if any: NOT Prescribed or Continued at Discharge
[2017-01-19] MEDS ORDERED: PREDNISONE20 M1 PO (14:13)
[2017-01-19 16:31] VITALS: BP 116/52
[2017-01-19 22:00] VITALS: BP 118/62; BP 132/68
--- NOTE | 2017-01-20 07:07 | PN- Housestaff ---
YANETH ROLDAN 01/20/17 0707: Subjective Follow-up For: COPD exacerbation End-stage renal disease on hemodialysis Complaints: no complaints Tele-Events Since Last Visit: Single pacing 60-70 beats per minutes no overnight events Subjective: Reviewed the patient seated comfortably on the chair he has no acute distress. He reports to have slept much better and the breathing is improving especially after treatment. Patient has been walking around the unit Review of Systems Constitutional: Denies: chills, fever. Cardiovascular: Denies: chest pain, palpitations. Respiratory: Reports: cough. Denies: short of breath, wheezing. Gastrointestinal: Denies: nausea, vomiting. Genitourinary: Denies: no symptoms. Musculoskeletal: Denies: no symptoms. Comments: All other systems reviewed and are negative Objective Last 24 Hrs of Vital Signs/I&O Vital Signs Date Time Temp Pulse Resp B/P Pulse O2 O2 Flow FiO2 Ox Delivery Rate 01/20 0817 96 Nasal 2.0L Cannula 01/20 0635 93 Nasal 2.0L Cannula 01/20 0000 Nasal 2.0L Cannula 01/19 2200 98.1 78 18 118/62 90 Room Air 01/19 2153 72 118/62 01/19 1959 97 Nasal 2.0L Cannula 01/19 1745 95 Nasal 2.0L Cannula 01/19 1631 97.1 83 20 116/52 94 Nasal 2.0L Cannula 01/19 1600 95 Nasal 2.0L Cannula Intake & Output 01/20 1600 01/20 0800 01/20 0000 Intake Total 240 250 Output Total 150 250 Balance 90 0 Intake, IV 0 0 Intake, Oral 240 250 Number 0 0 Bowel Movements Output, Urine 150 250 Patient 176 lb 174 lb Weight Physical Exam General Appearance: Alert, Oriented X3, Cooperative, No Acute Distress Skin: No Rashes HEENT: Atraumatic, Mucous Membr. moist/pink Neck: Supple, No JVD Cardiovascular: Regular Rate, Normal S1, Normal S2 Lungs: Clear to Auscultation, Normal Air Movement Abdomen: Normal Bowel Sounds, Soft, No Tenderness Neurological: Normal Gait, Normal Speech, Normal Tone Extremities: No Clubbing, No Cyanosis, No Edema Current Medications: Current Medications Sig/Johnna Start time Last Medication Dose Route Stop Time Status Admin Acetaminophen 650 MG Q6P PRN 01/18 830 AC 01/18 PO 2017 Acetaminophen/ 1 TAB Q6P PRN 01/18 0830 AC Hydrocodone Bitart PO Albuterol Sulfate 3 ML TID 01/18 1600 AC 01/20 INH 1303 Albuterol Sulfate 2 PUF 4 TIMES/DAY PRN 01/18 0845 AC 01/19 INH 1950 Allopurinol 100 MG DAILY 01/18 1000 AC 01/20 PO 1229 Aspirin Buffered 81 MG DAILY 01/18 1000 AC 01/20 PO 1228 Atorvastatin Calcium 10 MG 1700 01/18 1700 AC 01/19 PO 1623 Budesonide/ 2 PUF BID 01/18 1000 AC 01/20 Formoterol Fumarate INH 1231 Calcitriol 0.25 MCG MoWeFr 01/18 0800 AC 01/20 IV 1149 Colchicine 300 MCG DAILY 01/18 1000 AC 01/20 PO 1230 Epoetin Guzman 4,000 UNIT MoWeFr 01/18 0800 AC 01/20 IV 1150 Folic Acid 1 MG DAILY 01/18 1000 AC 01/20 PO 1228 Furosemide 80 MG DAILY 01/19 1000 AC 01/20 PO 1228 Guaifenesin 600 MG Q12 01/18 1045 AC 01/20 PO 1227 Hydromorphone HCl 0.5 MG Q6-PRN PRN 01/18 0830 AC IV Insulin Aspart 0 TIDAC 01/18 1200 AC 01/20 SC 1231 Isosorbide 60 MG DAILY 01/19 1000 AC 01/20 Mononitrate PO 1229 Metoprolol Tartrate 50 MG BID 01/18 1000 AC 01/20 PO 1228 Omeprazole 20 MG DAILY 01/18 1000 AC 01/20 PO 1229 Patient Medication 1 ED .STK-MED ONE 01/19 1422 AL Teaching ED 01/19 1423 Prednisone 40 MG DAILY 01/19 1000 AC 01/20 PO 1229 Warfarin Sodium 5 MG COUMADIN 1700 ONE 01/19 1700 DC 01/19 PO 01/19 1701 1623 Last 24 Hrs of Lab/Satnam Results Last 24 Hrs of Labs/Mics: Laboratory Tests 01/20/17 0738: Anion Gap 20 H, Estimated GFR 7 L, BUN/Creatinine Ratio 11.0, PT 25.5 H, INR 2.45 H, CBC w Diff NO MAN DIFF REQ, RBC 4.03 L, MCV 88.7, MCH 28.5, RDW 21.9 H, MPV 9.6, Gran % 82.4 H, Lymphocytes % 7.9 L, Monocytes % 9.7 H, Eosinophils % 0, Basophils % 0 L, Absolute Granulocytes 5.3, Absolute Lymphocytes 0.5 L, Absolute Monocytes 0.6, Absolute Eosinophils 0, Absolute Basophils 0, PUBS MCHC 32.1 L Assessment/Plan Assessment: This is a 71-year-old gentleman with multiple medical problems namely hypertension, hyperlipidemia, systolic heart failure, COPD, ESRD requiring hemodialysis through an tiburcio cath Monday, FREDY, diabetes mellitus , gout, atrial fibrillation; 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 Patient had a negative flu test and overnight has remained afebrile without focus of infection and is being monitored off antibiotics. End-stage renal disease The patient is on hemodialysis Monday and Monday Patient will receive hemodialysis today COPD exacerbation On presentation the patient has bilateral wheezes was started on IV Solu-Medrol 40 every 12 hours. He has been a significant improvement in respiratory function. We will transition the patient to oral prednisone with a quick taper, patient received 3 doses of 40 mg prednisone. Paroxysmal A. fib therapeutic INR of around 2.45 Received 2.5 mg of Coumadin Will recheck INR today and continue to dose Coumadin accordingly Insulin-dependent diabetes mellitus Patient started on insulin sliding scale Fingersticks for the past 24 hours to 87, 287, 267, 267, 188, 188 Continue with fingersticks and insulin Problem List: 1. COPD exacerbation 2. End-stage renal disease on hemodialysis Pain Ratin Pain Location: None Pain Goal: Remain pain free Pain Plan: TYLENOL when necessary Tomorrow's Labs & Rationales: INR for AM DVT/Prophylaxis: pharmacological Discharge Plan Discharge Disposition: home Stable for Discharge? Yes Anticipated Discharge (Day): tomorrow If Discharged Today/In 24 Hrs: CMR done IRA HERBERT MD 01/20/17 1456: Attending MD Review Statement Attending Statement Attending MD Statement: examined this patient, discuss w/resident/PA/GUEST ROOM ATTENDANT, agreed w/resident/PA/GUEST ROOM ATTENDANT, reviewed EMR data (avail), discussed with nursing, discussed with case mgmt, reviewed images Attending Assessment/Plan: Patient still says that he doesn't feel good. He complains of cough and shortness of breath even though his O2 requirement hasn't changed and he's had his regular dialysis. The good news is he's not had any more fevers. We are watching him on a prednisone taper without any antibiotics. His flu swab is negative and a CT chest doesn't show any pneumonia. At this point will watch him overnight and if he is completely stable plan for discharge over the weekend. He was dialyzed today so his next dialysis is not till Monday.
[2017-01-20 08:49] LABS: ABSOLUTE BASOPHIL COUNT 0 /CUMM (0.0-0.2); ABSOLUTE EOSINOPHIL COUNT 0 /CUMM (0.0-0.7); ABSOLUTE GRANULOCYTE CT 5.3 /CUMM (1.4-6.5); ABSOLUTE LYMPH COUNT 0.5 /CUMM (1.2-3.4); ABSOLUTE MONOCYTE COUNT 0.6 /CUMM (0.10-0.60); BASOPHIL % 0 % (0.0-2.0); EOSINOPHIL % 0 % (0-5); GRANULOCYTE % 82.4 % (42.2-75.2); HEMATOCRIT 35.7 % (42-52); MEAN CORPUSCULAR HGB 28.5 PG (27.0-31.0); MEAN CORPUSCULAR HGB CONC 32.1 G/DL (33.0-37.0); MEAN CORPUSCULAR VOLUME 88.7 FL (80.0-94.0); MEAN PLATELET VOLUME 9.6 FL (7.4-10.4); PLATELET COUNT 120 /CUMM (130-400); RBC DISTRIBUTION WIDTH 21.9 % (11.5-14.5); RED BLOOD CELL CT 4.03 /CUMM (4.70-6.10)
[2017-01-20 08:55] LABS: PT 25.5 SEC (9.4-12.5)
[2017-01-20 09:00] LABS: WHITE BLOOD CELL COUNT 6.4 /CUMM (4.8-10.8)
--- NOTE | 2017-01-20 09:40 | PN- Nephrology ---
Assessment/Plan Assessment: 1. Shortness of breath. Suspect that this is more COPD exacerbation at this point. He is actually below his dry weight if the weights are to be believed. 2. History of cardiomyopathy 3. End-stage renal disease due for dialysis in progress, plan 2 L ,he is below EDW 4. Coronary artery disease 5. 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 History of obstructive sleep apnea 7. COPD 8. Atrial fibrillation 9. Diabetes mellitus 10. Paroxysmal atrial fibrillation. Suggestion: 1.plan 2 l UF 2. management of COPD as per primary team Subjective Subjective: Patient seen with HD in progress. C/o no one doing anything for his breathing. It as ponted out he is getting nebulizer treatments and steroids. Objective Vital Signs and I&Os Vital Signs Date Time Temp Pulse Resp B/P Pulse O2 O2 Flow FiO2 Ox Delivery Rate 01/20 0817 96 Nasal 2.0L Cannula 01/20 0635 93 Nasal 2.0L Cannula 01/20 0000 Nasal 2.0L Cannula 01/19 2200 98.1 78 18 118/62 90 Room Air 01/19 2153 72 118/62 01/19 1959 97 Nasal 2.0L Cannula 01/19 1745 95 Nasal 2.0L Cannula 01/19 1631 97.1 83 20 116/52 94 Nasal 2.0L Cannula 01/19 1600 95 Nasal 2.0L Cannula 01/19 1000 97.1 74 20 154/70 01/19 0959 74 154/70 Intake & Output 01/20 1600 01/20 0400 01/19 1600 01/19 0400 01/18 1600 01/18 0400 Intake Total 240 250 860 240 100 Output Total 150 250 700 Balance 90 0 160 240 100 Intake, IV 0 0 100 Intake, Oral 240 250 860 240 Number 0 0 Bowel Movements Output, Urine 150 250 700 Patient 176 lb 174 lb 187 lb Weight Physical Exam: General Appearance: well developed/nourished, no apparent distress Head: atraumatic, normal appearance, active bleeding Eyes: Bilateral: PERRL, EOMI. Neck: normal inspection, supple, trachea mid line Respiratory: Still with wheezing today Cardiovascular: regular rate/rhythm Gastrointestinal: normal bowel sounds, soft, non-tender, no organomegaly, no abdominal bruits. His abdomen however seems to be distended. Back: normal inspection, normal range of motion Extremities: Chronic venous stasis changes. No sacral or lower extremity edema. Neurologic/Psych: no gross motor/sensory deficits, awake, alert, oriented x 3 Skin: intact, normal color, warm/dry Results Pertinent Lab Results: Laboratory Tests 01/20 01/19 0738 0720 Chemistry Sodium (137 - 145 mmol/L) Pending 138 Potassium (3.5 - 5.1 mmol/L) Pending 4.2 Chloride (98 - 107 mmol/L) Pending 97 L Carbon Dioxide (22 - 30 mmol/L) Pending 23 Anion Gap (5 - 16) Pending 18 H BUN (9 - 20 mg/dL) Pending 45 H Creatinine (0.7 - 1.2 mg/dL) Pending 4.7 H Estimated GFR (>60 ml/min) 12 L BUN/Creatinine Ratio (7 - 25 %) Pending 9.6 Magnesium (1.6 - 2.3 mg/dL) 1.9 Coagulation PT (9.4 - 12.5 SEC) 25.5 H 22.8 H INR (0.90 - 1.17) 2.45 H 2.19 H Hematology CBC w Diff NO MAN DIFF REQ NO MAN DIFF REQ WBC (4.8 - 10.8 /CUMM) 6.4 4.0 L RBC (4.70 - 6.10 /CUMM) 4.03 L 4.18 L Hgb (14.0 - 18.0 G/DL) 11.5 L 11.7 L Hct (42 - 52 %) 35.7 L 36.8 L MCV (80.0 - 94.0 FL) 88.7 87.9 MCH (27.0 - 31.0 PG) 28.5 28.1 RDW (11.5 - 14.5 %) 21.9 H 22.8 H Plt Count (130 - 400 /CUMM) 120 L 104 L MPV (7.4 - 10.4 FL) 9.6 9.9 Gran % (42.2 - 75.2 %) 82.4 H 86.1 H Lymphocytes % (20.5 - 51.1 %) 7.9 L 8.3 L Monocytes % (1.7 - 9.3 %) 9.7 H 5.3 Eosinophils % (0 - 5 %) 0 0 Basophils % (0.0 - 2.0 %) 0 L 0.3 Absolute Granulocytes (1.4 - 6.5 /CUMM) 5.3 3.4 Absolute Lymphocytes (1.2 - 3.4 /CUMM) 0.5 L 0.3 L Absolute Monocytes (0.10 - 0.60 /CUMM) 0.6 0.2 Absolute Eosinophils (0.0 - 0.7 /CUMM) 0 0 Absolute Basophils (0.0 - 0.2 /CUMM) 0 0 PUBS MCHC (33.0 - 37.0 G/DL) 32.1 L 31.9 L 01/18 01/18 1520 1300 Chemistry Troponin I Cancelled Serology Hep Bs Antigen (NONREACTIVE) NONREACTIVE Hep Bs Antibody (NONREACTIVE) NONREACTIVE 01/18 01/18 01/18 1246 0932 0932 Chemistry Lactic Acid (0.7 - 2.1 mmol/L) 0.8 Troponin I (<0.11 ng/ml) 0.09 Coagulation PT (9.4 - 12.5 SEC) 27.4 H INR (0.90 - 1.17) 2.63 H Urines Urinalysis MOD H Urine Color (YEL,AMB,STR) YEL Urine Clarity (CLEAR) HAZY H Urine pH (5.0 - 8.0) 5.5 Ur Specific [place] (1.001 - 1.035) 1.025 Urine Protein (NEG,<30 MG/DL) 30 H Urine Ketones (NEG) NEG Urine Nitrite (NEG) NEG Urine Bilirubin (NEG) NEG Urine Urobilinogen (0.1 - 1.0 EU/dl) 0.2 Ur Leukocyte Esterase (NEG) TRACE H Ur Microscopic SEDIMENT EXAMINED Urine RBC (0 - 5 /HPF) 25-50 H Urine WBC (0 - 2 /HPF) 25-50 H Ur Epithelial Cells (NONE,FEW) RARE Urine Bacteria (NEG/NONE) FEW H Granular Casts (NONE /LPF) RARE H Urine Mucus (FEW,NONE) RARE Urine Hemoglobin (NEG) MOD H Urine Glucose (N MG/DL) NEG 01/18 01/18 01/18 4905 7995 4760 Blood Gas pH (7.35 - 7.45 PH) 7.25 *L pCO2 (35 - 45 TORR) 38 pO2 (80 - 100 TORR) 118 H HCO3 (21 - 28 MEQ/L) 16 L ABG O2 Sat (Measured) (>96.0 %) 96.0 Carboxyhemoglobin (1.5 - 5.0 %) 1.2 L O2 Concentration % 3L O2 Delivery Method NC Chemistry Lactic Acid (0.7 - 2.1 mmol/L) Cancelled 1.5 Miscellaneous Phlebotomy Draw Site RIGHT RADIAL 01/18 0430 Chemistry Sodium (137 - 145 mmol/L) 142 Potassium (3.5 - 5.1 mmol/L) 4.4 Chloride (98 - 107 mmol/L) 105 Carbon Dioxide (22 - 30 mmol/L) 19 L Anion Gap (5 - 16) 18 H BUN (9 - 20 mg/dL) 53 H Creatinine (0.7 - 1.2 mg/dL) 6.6 *H Estimated GFR (>60 ml/min) 8 L BUN/Creatinine Ratio (7 - 25 %) 8.0 Glucose (65 - 99 mg/dL) 115 H Calcium (8.4 - 10.2 mg/dL) 8.7 Total Bilirubin (0.2 - 1.3 mg/dL) 0.6 AST (17 - 59 U/L) 20 ALT (21 - 72 U/L) 31 Alkaline Phosphatase (< 127 U/L) 134 H Troponin I (<0.11 ng/ml) 0.10 [id number] Pept (<125 pg/mL) 47851 H Total Protein (6.3 - 8.2 g/dL) 6.3 Albumin (3.5 - 5.0 g/dL) 3.7 Globulin (1.9 - 4.2 gm/dL) 2.6 Albumin/Globulin Ratio (1.1 - 2.2 %) 1.4 25-OH Vitamin D Total (30 - 100 ng/ml) 23.1 L TSH (0.270 - 4.200 uIU/mL) 1.890 Free T4 (0.78 - 2.44 ng/dL) 1.07 Hematology CBC w Diff NO MAN DIFF REQ WBC (4.8 - 10.8 /CUMM) 7.0 RBC (4.70 - 6.10 /CUMM) 3.92 L Hgb (14.0 - 18.0 G/DL) 11.1 L Hct (42 - 52 %) 34.8 L MCV (80.0 - 94.0 FL) 88.8 MCH (27.0 - 31.0 PG) 28.3 RDW (11.5 - 14.5 %) 23.2 H Plt Count (130 - 400 /CUMM) 85 L MPV (7.4 - 10.4 FL) 9.2 Gran % (42.2 - 75.2 %) 74.9 Lymphocytes % (20.5 - 51.1 %) 11.8 L Monocytes % (1.7 - 9.3 %) 10.7 H Eosinophils % (0 - 5 %) 1.3 Basophils % (0.0 - 2.0 %) 1.3 Absolute Granulocytes (1.4 - 6.5 /CUMM) 5.2 Absolute Lymphocytes (1.2 - 3.4 /CUMM) 0.8 L Absolute Monocytes (0.10 - 0.60 /CUMM) 0.7 H Absolute Eosinophils (0.0 - 0.7 /CUMM) 0.1 Absolute Basophils (0.0 - 0.2 /CUMM) 0.1 PUBS MCHC (33.0 - 37.0 G/DL) 31.9 L
[2017-01-20 12:30] VITALS: BP 118/58
[2017-01-20 13:27] VITALS: BP 100/58
[2017-01-20 14:28] VITALS: BP 98/58
[2017-01-20 14:55] VITALS: BP 106/58
[2017-01-20 16:28] VITALS: BP 99/47
[2017-01-20] MEDS ORDERED: COLCHICINE0.6 M2 PO (16:31)
[2017-01-20 16:36] VITALS: BP 102/58
--- NOTE | 2017-01-20 18:34 | PN- Cardiology ---
Subjective Subjective: Progressive clinical improvement. No new CV symptoms Objective Vital Signs and I&Os Vital Signs Date Time Temp Pulse Resp B/P Pulse O2 O2 Flow FiO2 Ox Delivery Rate 01/20 1636 78 102/58 01/20 1628 98.3 74 18 99/47 92 Nasal 3.0L Cannula 01/20 1455 106/58 01/20 1428 77 19 98/58 93 Nasal 3.0L Cannula 01/20 1327 100/58 01/20 1230 79 118/58 01/20 1229 78 118/62 01/20 1228 78 118/62 01/20 0817 96 Nasal 2.0L Cannula 01/20 0635 93 Nasal 2.0L Cannula 01/20 0000 Nasal 2.0L Cannula 01/19 2200 98.1 78 18 118/62 90 Room Air 01/19 2153 72 118/62 01/19 1959 97 Nasal 2.0L Cannula Intake & Output 01/20 1600 01/20 0800 01/20 0000 01/19 1600 01/19 0800 01/19 0000 Intake Total 240 250 360 500 240 Output Total 150 250 100 600 Balance 90 0 260 -100 240 Intake, IV 0 0 Intake, Oral 240 250 360 500 240 Number 0 0 Bowel Movements Output, Urine 150 250 100 600 Patient 178 lb 176 lb 174 lb 174 lb Weight Current Medications: Current Medications Sig/Johnna Start time Last Medication Dose Route Stop Time Status Admin Acetaminophen 650 MG Q6P PRN 01/18 0830 AC 01/18 PO 2017 Acetaminophen/ 1 TAB Q6P PRN 01/18 0830 AC Hydrocodone Bitart PO Albuterol Sulfate 3 ML TID 01/18 1600 AC 01/20 INH 1303 Albuterol Sulfate 2 PUF 4 TIMES/DAY PRN 01/18 0845 AC 01/20 INH 1459 Allopurinol 100 MG DAILY 01/18 1000 AC 01/20 PO 1229 Aspirin Buffered 81 MG DAILY 01/18 1000 AC 01/20 PO 1228 Atorvastatin Calcium 10 MG 1700 01/18 1700 AC 01/20 PO 1729 Budesonide/ 2 PUF BID 01/18 1000 AC 01/20 Formoterol Fumarate INH 1231 Calcitriol 0.25 MCG MoWeFr 01/18 0800 AC 01/20 IV 1149 Colchicine 300 MCG DAILY 01/18 1000 AC 01/20 PO 1230 Epoetin Guzman 4,000 UNIT MoWeFr 01/18 0800 AC 01/20 IV 1150 Folic Acid 1 MG DAILY 01/18 1000 AC 01/20 PO 1228 Furosemide 80 MG DAILY 01/19 1000 AC 01/20 PO 1228 Guaifenesin 600 MG Q12 01/18 1045 AC 01/20 PO 1227 Hydromorphone HCl 0.5 MG Q6-PRN PRN 01/18 0830 AC IV Insulin Aspart 0 TIDAC 01/18 1200 AC 01/20 SC 1729 Isosorbide 60 MG DAILY 01/19 1000 AC 01/20 Mononitrate PO 1229 Metoprolol Tartrate 50 MG BID 01/18 1000 AC 01/20 PO 1228 Omeprazole 20 MG DAILY 01/18 1000 AC 01/20 PO 1229 Prednisone 40 MG DAILY 01/19 1000 AC 01/20 PO 01/21 1200 1229 Warfarin Sodium 2.5 MG COUMADIN 1700 ONE 01/20 1700 DC 01/20 PO 01/20 1701 1729 Results Last 48 Hrs of Labs/Mics: Laboratory Tests 01/20/17 0738: Anion Gap 20 H, Estimated GFR 7 L, BUN/Creatinine Ratio 11.0, PT 25.5 H, INR 2.45 H, CBC w Diff NO MAN DIFF REQ, RBC 4.03 L, MCV 88.7, MCH 28.5, RDW 21.9 H, MPV 9.6, Gran % 82.4 H, Lymphocytes % 7.9 L, Monocytes % 9.7 H, Eosinophils % 0, Basophils % 0 L, Absolute Granulocytes 5.3, Absolute Lymphocytes 0.5 L, Absolute Monocytes 0.6, Absolute Eosinophils 0, Absolute Basophils 0, PUBS MCHC 32.1 L 01/19/17 0720: Anion Gap 18 H, Estimated GFR 12 L, BUN/Creatinine Ratio 9.6, Magnesium 1.9, PT 22.8 H, INR 2.19 H, CBC w Diff NO MAN DIFF REQ, RBC 4.18 L, MCV 87.9, MCH 28.1, RDW 22.8 H, MPV 9.9, Gran % 86.1 H, Lymphocytes % 8.3 L, Monocytes % 5.3, Eosinophils % 0, Basophils % 0.3, Absolute Granulocytes 3.4, Absolute Lymphocytes 0.3 L, Absolute Monocytes 0.2, Absolute Eosinophils 0, Absolute Basophils 0, PUBS MCHC 31.9 L [facility]/Plan Assessment/Plan Assessment- 1. SIRS (fever and tachypnea), possible HCAP vs Bronchitis vs COPD exacerbation (recently d/c on 01/14); unclear source 2. Chronic HFpEF, last EF 50% - there is no evidence of overt CHF on CXR or CT chest. 3. 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 Possible COPD exacerbation 5. Anion gap 18 metabolic acidosis, likely 2/2 electrolyte imbalance, needs hemodialysis today 6. Chronic anemia, 2/2 ESRD 7. IDDM 8. FREDY, non-compliant with CPAP 9. Hx of MGUS 10. Hx of Pulmonary HTN; RVSP 52 mm Hg per recent echo 11. Paroxsymal A fib 12. Hx of pacemaker placement 13. Gout Recommendations: - Continue current cardac medications. - Dialysis as per Nephrology - Otherwise continue management as per the medical team Continue telemetry? No
[2017-01-21 00:24] VITALS: BP 104/60
[2017-01-21 08:16] LABS: PT 20.7 SEC (9.4-12.5)
[2017-01-21 08:32] VITALS: BP 137/65
--- NOTE | 2017-01-21 09:02 | PN- Housestaff ---
AMINA STREET,KIM 01/21/17 0848: Subjective Follow-up For: COPD exacerbation ESRD on dialysis Complaints: sob, cough Subjective: Patient is sitting in his bed having his breakfast. He complains of shortness of breath mainly on ambulation but also concerns about his persistent cough and wheezing. He is very frustrated about management of his health condition. He denies any chest pain, nausea, vomiting, abdominal pain, palpitation. Review of Systems Constitutional: Reports: see HPI. Objective Last 24 Hrs of Vital Signs/I&O Vital Signs Date Time Temp Pulse Resp B/P Pulse O2 O2 Flow FiO2 Ox Delivery Rate 01/21 0840 85 Room Air Room Air 01/21 0832 98.2 77 18 137/65 90 Room Air 01/21 0830 97.9 68 18 104/60 01/21 0829 97.9 68 18 104/60 01/21 0800 Nasal 2.0L Cannula 01/21 0024 97.9 68 18 104/60 92 Nasal Cannula 01/21 0000 Nasal 2.0L Cannula 01/20 2126 71 01/20 2000 97 Nasal 2.0L Cannula 01/20 1937 18 96 Nasal 3.0L Cannula 01/20 1636 78 102/58 01/20 1628 98.3 74 18 99/47 92 Nasal 3.0L Cannula 01/20 1600 93 Nasal 3.0L Cannula 01/20 1455 106/58 01/20 1428 77 19 98/58 93 Nasal 3.0L Cannula 01/20 1327 100/58 01/20 1230 79 118/58 01/20 1229 78 118/62 01/20 1228 78 118/62 Intake & Output 01/21 1600 01/21 0800 01/21 0000 Intake Total 130 250 Output Total 200 200 Balance -70 50 Intake, IV 10 10 Intake, Oral 120 240 Output, Urine 200 200 Patient 177 lb Weight Physical Exam General Appearance: Alert, Oriented X3, Cooperative, Mild Distress Skin: No Rashes HEENT: Atraumatic, PERRLA, EOMI, Mucous Membr. moist/pink Neck: Supple, No JVD Cardiovascular: Normal S1, Normal S2, No Murmurs Lungs: decreased air entery bilaterally with basilar crackles and apical expiratory wheeze Abdomen: Normal Bowel Sounds, Soft, No Tenderness Neurological: Normal Speech, Normal Tone, Sensation Intact Extremities: No Edema Vascular: Normal Pulses, Pulses Symmetrical Current Medications: Current Medications Sig/Johnna Start time Last Medication Dose Route Stop Time Status Admin Acetaminophen 650 MG Q6P PRN 01/18 0830 AC 01/18 PO 2017 Acetaminophen/ 1 TAB Q6P PRN 01/18 0830 AC Hydrocodone Bitart PO Albuterol Sulfate 3 ML TID 01/18 1600 AC 01/21 INH 0831 Albuterol Sulfate 2 PUF 4 TIMES/DAY PRN 01/18 0845 AC 01/20 INH 1459 Allopurinol 100 MG DAILY 01/18 1000 AC 01/21 PO 0830 Aspirin Buffered 81 MG DAILY 01/18 1000 AC 01/21 PO 0829 Atorvastatin Calcium 10 MG 1700 01/18 1700 AC 01/20 PO 1729 Budesonide/ 2 PUF BID 01/18 1000 AC 01/21 Formoterol Fumarate INH 0830 Calcitriol 0.25 MCG MoWeFr 01/18 0800 AC 01/20 IV 1149 Colchicine 300 MCG DAILY 01/18 1000 AC 01/21 PO 0830 Epoetin Guzman 4,000 UNIT MoWeFr 01/18 0800 AC 01/20 IV 1150 Folic Acid 1 MG DAILY 01/18 1000 AC 01/21 PO 0829 Furosemide 80 MG DAILY 01/19 1000 AC 01/21 PO 0829 Guaifenesin 600 MG Q12 01/18 1045 AC 01/21 PO 0830 Hydromorphone HCl 0.5 MG Q6-PRN PRN 01/18 0830 AC IV Insulin Aspart 0 TIDAC 01/18 1200 AC 01/21 SC 0828 Isosorbide 60 MG DAILY 01/19 1000 AC 01/21 Mononitrate PO 0829 Metoprolol Tartrate 50 MG BID 01/18 1000 AC 01/21 PO 0830 Omeprazole 20 MG DAILY 01/18 1000 AC 01/21 PO 0830 Prednisone 40 MG DAILY 01/19 1000 AC 01/21 PO 01/21 1200 0830 Warfarin Sodium 2.5 MG COUMADIN 1700 ONE 01/20 1700 DC 01/20 PO 01/20 1701 1729 Last 24 Hrs of Lab/Satnam Results Last 24 Hrs of Labs/Mics: Laboratory Tests 01/21/17 0630: PT 20.7 H, INR 1.98 H Assessment/Plan Assessment: This is a 71-year-old gentleman with multiple medical problems namely hypertension, hyperlipidemia, systolic heart failure, COPD, ESRD requiring hemodialysis through an tiburcio cath Monday, FREDY, diabetes mellitus , gout, atrial fibrillation; recent hospitalization at [facility] 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 Patient had a negative flu test and overnight has remained afebrile without focus of infection and is being monitored off antibiotics. End-stage renal disease The patient is on hemodialysis Monday and Monday Patient will receive hemodialysis today COPD exacerbation - Patient continued to be short of breath requiring 2 L supplemental O2 - Noted wheezing on exam - We'll continue prednisone - Continue TRC treatment Paroxysmal A. fib therapeutic INR of around 2.45 Received 2.5 mg of Coumadin Will recheck INR today and continue to dose Coumadin accordingly Chronic HFpEF with EF of 50% Insulin-dependent diabetes mellitus Patient started on insulin sliding scale Fingersticks for the past 24 hours to 395, 171, 212, 212 Continue with fingersticks and insulin Problem List: 1. End-stage renal disease on hemodialysis 2. COPD exacerbation Pain Ratin Pain Location: NONE Pain Goal: Pain 4 or less Pain Plan: TYLENOL Tomorrow's Labs & Rationales: INR, BEP DVT/Prophylaxis: pharmacological BAILEY STREET,GARCIA 01/21/17 1217: Attending MD Review Statement Attending Statement Attending MD Statement: examined this patient, discuss w/resident/PA/EXECUTIVE STEWARD, agreed w/resident/PA/EXECUTIVE STEWARD, reviewed EMR data (avail), discussed with nursing, discussed with case mgmt, reviewed images, amended to note Attending Assessment/Plan: Patient is a 71-year-old male with past medical history significant for COPD ( not on home oxygen), end-stage renal disease on hemodialysis and diabetes mellitus is being admitted on the floor for hemodialysis. Patient has multiple previous admissions. Patient was seen and examined on the bedside and reports no active issues. He had his dialysis and completed his course of prednisone for COPD exacerbation. 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
--- NOTE | 2017-01-21 17:42 | Discharge Summary ---
Visit Information Visit Dates Admission Date: 01/19/17 Discharge Date: 01/21/17 Hospital Course Course Attending Physician: PIEDAD STREET,IRA Pham Primary Care Physician: BRITT STREET,YSABEL Burgos Other Care Providers: MD Dr. Lew Fam Consulting Request: 1 Consulting Specialty: Nephrology Consulting Physician: Dr. Mendoza Reason for Consult: ESRD on hemodialysis Consulting Request: 2 Consulting Specialty: Cardiology Consulting Physician: Rahul Crandall MD Reason for Consult: SOB Hospital Course: This is a 71-year-old gentleman with multiple medical problems namely hypertension, hyperlipidemia, systolic heart failure, COPD, ESRD requiring hemodialysis through an tiburcio cath Monday, FREDY, diabetes mellitus , gout, atrial fibrillation; recent hospitalization at [facility] just discharged 4 days prior to this admission, 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 Patient had a negative flu test he had a spike of fever 100.7 on admission but without other evidence of infection the patient was observed off antibiotics admitted to the telemetry floor and we managed him for the following conditions.. End-stage renal disease The patient is on hemodialysis Monday and Monday. During the course of this admission the patient was reviewed by mopper Dr. Mendez and was kept on his schedule of hemodialysis. He raised a concern that his dialysis shift starts at 3 PM of which by the time he finishes it is dark and because of poor vision at night is very difficult for him keeping the appointments. We discussed this extensively with mopper who highlighted the fact that dialysis slots are by seniority and will not be easy to get an earlier slot. It was reiterated to the patient the importance of adhering to his dialysis schedule in the future. Patient has an tiburcio cath which is working well without any evidence of infection at the insertion site. COPD exacerbation On presentation the patient had bilateral wheezes was started on IV Solu-Medrol 40 every 12 hours. The patient was transitioned to oral prednisone with a quick taper starting at 40 mg daily for 3 days. On the next day after admission the patient respiratory function had improved and had no more wheezes. He was started on all his inhalers and also received nebulization with respiratory therapist as needed during the course of the stay. Patient was discharged with instructions to continue with his COPD medications. Paroxysmal A. fib Patient has history of paroxysmal atrial fibrillation and because of this is on Coumadin. He presented with a therapeutic INR of 2.63 and continued to receive Coumadin during the course of the stay. He was discharged on his home dose of Coumadin with instructions to continue to follow-up with Coumadin clinic for scheduled INR checks. Insulin-dependent diabetes mellitus Patient has history of diabetes mellitus that is insulin-dependent and during the course of his stay the patient was kept on insulin sliding scale. Initially there was a slight bump in glucose level because of the Solu-Medrol but with transition to oral prednisone sugar was more controlled. He was kept on diabetic diet and discharged with instructions to continue taking his insulin as indicated. Gout arthritis On this admission the patient did not have any joint pain. He was on home dose of colchicine 600 g daily. Given his end-stage renal disease after consultation with pharmacy to reduce his colchicine level to 300 g daily. She was sent home with instruction to take the reduced dose of colchicine. Complications: None Allergies: Coded Allergies: NO KNOWN ALLERGIES (10/04/16) Pertinent Lab Results: CT chest 1. No evidence of an acute intrathoracic process. 2. Heart is enlarged with postoperative and procedural changes as noted. 3. Stable 6 mm right upper lobe pulmonary nodule. 4. Otherwise unremarkable examination. Various management parameters for solitary pulmonary nodules are in the literature. According to the Fleischner Society, recommendations for pulmonary nodules are as follows: Nodule size > 4-6 mm in LOW RISK PATIENTS: Follow up CT at 12 months; if unchanged, no further follow up. Nodule size > 4-6 mm in HIGH RISK PATIENTS: Initial follow up CT at 6-12 months, then at 18-24 months if no change. Disposition Summary Disposition Principal Diagnosis: COPD exacerbation End-stage renal disease on hemodialysis Diabetes mellitus A. fib on Coumadin Additional Diagnosis: Gouty arthritis Discharge Disposition: home health services Discharge Instructions General Discharge Information Code Status: Full Code Patient's Diet: Diabetic diet Patient's Activity: As tolerated Follow-Up Instructions/Appts: Please call and make a follow-up with her primary care physician within one week after discharge. Please continue with serial dialysis schedule Monday as before admission. Medications at Discharge Discharge Medications: Stop taking the following medications: Colchicine (Colchicine) 0.6 MG TABLET ORAL DAILY Days = 60 Continue taking these medications: Folic Acid (Folic Acid) 1 MG TABLET 1 Tablet ORAL DAILY Comments: Last Taken:01/21/17 Time:8AM Insulin Lispro (Humalog) 100 UNIT/ML VIAL Units Inject into fatty tissue 3 TIMES DAILY BEFORE MEALS Days = 30 Instructions: Blood sugar Insulin dose < 80mg/dl No dose 80-150 mg/dl no dose 151-200mg/dl 1 unit 201-250mg/dl 2 units 251-300mg/dl 3 units 301-350mg/dl 4 units 351-400mg/dl 6 units 351-400mg/dl 6 units > 400 8 call MD PLEASE RESUME ON MonDec 151-200 0 Comments: Last Taken: 12/20/16 Time: Allopurinol (Allopurinol) 100 MG TABLET 1 Tablet ORAL DAILY Qty = 30 Comments: Last Taken: 01/21/17 Time: 845 AM Warfarin Sodium (Coumadin) 5 MG TABLET 0.5-1 Tablet ORAL As Directed Instructions: please dose Coumadin as per INR. Comments: PER PT Last Taken: 12/19/16 Time: 11:00 PM Budesonide/Formoterol Fumarate (Symbicort 80-4.5 Mcg Inhaler) 80 MCG-4.5 MCG/ ACTUATION HFA.AER.AD 2 Puff Inhale through mouth TWICE DAILY Days = 30 Comments: Guaifenesin (Mucinex) 600 MG TAB.ER.12H 1 Tablet ORAL TWICE DAILY Qty = 20 Comments: Last Taken: 12/20/16 Time: 10:00 AM Loratadine (Claritin) 10 MG TABLET 1 Tablet ORAL DAILY Days = 30 Comments: Last Taken: 12/20/16 Time: 10:00 AM Mometasone Furoate (Nasonex) 50 MCG SPRAY.PUMP 2 Hooper Both sides of nose DAILY Days = 5 Albuterol Sulfate (Albuterol Sulfate) 0.63 MG/3 ML VIAL.NEB 1 Vial Inhale Solution THREE TIMES DAILY as needed for COPD Albuterol Sulfate (Proventil Hfa) 90 MCG HFA.AER.AD 2 Puff Inhale through mouth 4 TIMES A DAY as needed for COPD Comments: Last Taken: 01/21/17 Time: 945 AM Aspirin (Ecotrin*) 81 MG TABLET.DR 1 Tablet ORAL DAILY Comments: Last Taken: 01/21/17 Time: 845 AM Furosemide (Lasix) 80 MG TABLET 1 Tablet ORAL DAILY Comments: Last Taken:01/21/17 Time:8AM Isosorbide Mononitrate (Isosorbide Mononitrate ER) 60 MG TAB.ER.24H 1 Tablet ORAL DAILY Comments: Last Taken:01/21/17 Time:8AM Metoprolol Tartrate (Lopressor) 50 MG TABLET 1 Tablet ORAL TWICE DAILY Comments: Last Taken:01/21/17 Time:8AM Omeprazole (Omeprazole) 20 MG CAPSULE.DR 1 Capsule ORAL DAILY Comments: Last Taken:01/21/17 Time:8AM Simvastatin (Zocor*) 20 MG TABLET 1 Tablet ORAL Every night Comments: NOT GIVEN Calcitriol (Calcitriol) 1 MCG/ML AMPUL 1 Microgram INTRAVEN MoWeFr Days = 28 Calcium Carbonate (Calcium Carbonate) 500 MG CALCIUM (1,250 MG) TABLET 1 Tablet ORAL 3 TIMES DAILY BEFORE MEALS Days = 60 Start taking the following new medications: Colchicine (Colchicine) 0.6 MG TABLET 300 Microgram ORAL DAILY Qty = 60 No Refills Copies To: [address],YANETH Grace; [address] ST[address],YSABEL Burgos; [address],Barak REHMAN
== END 2017-01-21 14:36 | disposition home health service (06) | DRG 190 ==
LOC: ENRESERVDT → ENRESERVTM → ERH 04:11 → 1NO 08:23 → ERHI 08:23 → 1NO 16:39 → ENPENDDIS 01-19 13:18 → 1NO 01-19 13:18
PROVIDERS: Emergency Medicine; Internal Medicine; Internal Medicine Nephrology; Preventive Medicine Public Health & General Preventive Medicine; ADMIT Internal Medicine
PROC: 5A1D60Z (ICD-10-PCS; principal; 2017-01-20)
DX: J44.1 Chronic obstructive pulmonary disease with (acute) exacerbation (principal); N18.6 End stage renal disease; I13.2 Hypertensive heart and chronic kidney disease with heart failure and with stage 5 chronic kidney disease, or end stage renal disease; E87.2 Acidosis; E11.22 Type 2 diabetes mellitus with diabetic chronic kidney disease; I42.9 Cardiomyopathy, unspecified; I50.20 Unspecified systolic (congestive) heart failure; I48.0 Paroxysmal atrial fibrillation; D47.2 Monoclonal gammopathy; I25.10 Atherosclerotic heart disease of native coronary artery without angina pectoris; Z99.2 Dependence on renal dialysis; Z79.4 Long term (current) use of insulin; E78.5 Hyperlipidemia, unspecified; G47.33 Obstructive sleep apnea (adult) (pediatric); M10.9 Gout, unspecified; Z79.01 Long term (current) use of anticoagulants; Z95.0 Presence of cardiac pacemaker; K21.9 Gastro-esophageal reflux disease without esophagitis; Z87.891 Personal history of nicotine dependence; D63.1 Anemia in chronic kidney disease
CPT/HCPCS: 1NP; 36415; 81001; 82436; 87040; 87070; 87086; 87449; 87450; 87804; 87804-59; 93005; 93010; 96374; 96375; J0131; J0636; J0885; J2920; J3490

== ENCOUNTER 2017-01-23 19:13 | Observation (INO) | payer OTHER, MEDICARE ==
[~2017-01-23] VITALS: Ht 167.6 cm; Wt 80.3 kg
--- NOTE | 2017-01-23 19:30 | NUR ---
RECIEVED TO ROOM. PT TALKING ON CELL PHONE UPON ARRIVAL.. PT REPORTS HE FEELS MUCH BETTER AT PRESENT BUT REPORTS OVERALL DECLINE IN HIS RESP STATUS PAST FEW MONTHS. STATES RECENTLY DISCHARGED FROM [facility] FOR COPD. PA STUDENT IN TO SEE PT
--- NOTE | 2017-01-23 19:30 | NUR ---
JOVANA FOR ACUTE ONSET SOB AFTER RETURNING HOME FROM DIALYSIS AND WALKED UP FLIGHT OF STAIRS TO HIS APT WITHOUT WEARING HIS HOME O2. HX OF ESRD, DIALYSIS M/W/F. COPD, WEARS 2 LITERS HOME O2 BUT STATES IT IS NOT CONTINUOUS O2. GAVE HIMSELF NEB TX THEN CALLED EMS. PER EMS SATS 88% ON ROOM AIR. ON 2 LITERS SATS 95%. UPON ARRIVAL PT AWAKE, ALERT, TALKING ON CELL PHONE. RHONCHI AND CONGESTED COUGH HEARD. SKIN WARM AND DRY. STATES HE FEELS MUCH BETTER AT PRESENT
--- NOTE | 2017-01-23 19:39 | NUR ---
RT NOTIFIED OF ORDER FOR NEB TX
--- NOTE | 2017-01-23 19:41 | NUR ---
PT WITH DIALYSIS LINE IN RIGHT CHEST. RESTRICTED EXTREMITY BRACELET PLACED ON LEFT ARM PER PT REQUEST
--- NOTE | 2017-01-23 19:43 | ED DYSPNEA/ASTHMA COMPLAINT ---
History of Present Illness General Chief Complaint: Dyspnea (COPD, CHF, Other) Stated Complaint: SOB Source: patient, old records, EMS Exam Limitations: no limitations Vital Signs & Intake/Output Vital Signs & Intake/Output Vital Signs Date Time Temp Pulse Resp B/P Pulse O2 O2 Flow FiO2 Ox Delivery Rate 01/24 1026 97.2 74 20 177/77 92 Room Air 01/24 0852 97.0 62 20 155/65 01/24 0851 97.0 62 20 155/65 01/24 0836 97.0 62 18 142/69 93 Room Air 01/24 0631 96.5 64 18 179/74 99 Nasal 2.0L Cannula 01/23 2314 67 138/65 01/23 2200 96.7 67 18 138/65 97 Nasal 2.0L Cannula 01/23 194 97 Nasal 2.0L Cannula 01/23 1941 Nasal 2.0L Cannula 01/23 1925 96.9 73 22 150/65 95 Nasal 2.0L Cannula ED Intake and Output 01/24 0000 01/23 1200 Intake Total Output Total Balance Patient 177 lb Weight Allergies Coded Allergies: No Known Allergies (01/25/17) Reconcile Medications Albuterol Sulfate 0.63 MG/3 ML VIAL.NEB 1 Vial INH/SALIMA TID PRN COPD (Reported ) Albuterol Sulfate (Proventil Hfa) 90 MCG HFA.AER.AD 2 PUF INH 4 TIMES/DAY PRN COPD (Reported) Allopurinol 100 MG TABLET 1 TAB PO DAILY GOUT Aspirin (Ecotrin*) 81 MG TABLET.DR 1 TAB PO DAILY Heart Health (Reported) Budesonide/Formoterol Fumarate (Symbicort 80-4.5 Mcg Inhaler) 80 MCG-4.5 MCG/ ACTUATION HFA.AER.AD 2 PUF INH BID copd Calcitriol 1 MCG/ML AMPUL 1 MCG IV MoWeFr WITH DIALYSIS Calcium Carbonate 500 MG CALCIUM (1,250 MG) TABLET 1 TAB PO TIDAC ESRD Colchicine 0.6 MG TABLET 300 MCG PO DAILY gout Folic Acid 1 MG TABLET 1 TAB PO DAILY SUPPLEMENT (Reported) Furosemide (Lasix) 80 MG TABLET 1 TAB PO DAILY CHF (Reported) Guaifenesin (Mucinex) 600 MG TAB.ER.12H 1 TAB PO BID MUCOLYTIC Insulin Lispro (Humalog) 100 UNIT/ML VIAL diabetes (Reported) Blood sugar Insulin dose < 80mg/dl No dose 80-150 mg/dl no dose 151-200mg/dl 1 unit 201-250mg/dl 2 units 251-300mg/dl 3 units 301-350mg/dl 4 units 351-400mg/dl 6 units 351-400mg/dl 6 units > 400 8 call PLEASE RESUME ON MonDec 151-200 0 Isosorbide Mononitrate (Isosorbide Mononitrate ER) 60 MG TAB.ER.24H 1 TAB PO DAILY HTN (Reported) Loratadine (Claritin) 10 MG TABLET 1 TAB PO DAILY NASAL CONGESTION Metoprolol Tartrate (Lopressor) 50 MG TABLET 1 TAB PO BID HTN (Reported) Mometasone Furoate (Nasonex) 50 MCG SPRAY.PUMP 2 SPRAY NASB DAILY NASAL CONGESTION Omeprazole 20 MG CAPSULE.DR 1 CAP PO DAILY GERD (Reported) Simvastatin (Zocor*) 20 MG TABLET 1 TAB PO QPM Cholesterol (Reported) Warfarin Sodium (Coumadin) 5 MG TABLET 0.5-1 TAB PO AD BLOOD THINNER ( Reported) please dose Coumadin as per INR. Triage Note: BIBA FOR ACUTE ONSET SOB AFTER RETURNING HOME FROM DIALYSIS AND WALKED UP FLIGHT OF STAIRS TO HIS APT WITHOUT WEARING HIS HOME O2. HX OF ESRD, DIALYSIS M/W/F. COPD, WEARS 2 LITERS HOME O2 BUT STATES IT IS NOT CONTINUOUS O2. GAVE HIMSELF NEB TX THEN CALLED EMS. PER EMS SATS 88% ON ROOM AIR. ON 2 LITERS SATS 95%. UPON ARRIVAL PT AWAKE, ALERT, TALKING ON CELL PHONE. RHONCHI AND CONGESTED COUGH HEARD. SKIN WARM AND DRY. STATES HE FEELS MUCH BETTER AT PRESENT Triage Nurses Notes Reviewed? yes Onset: Abrupt Duration: hour(s): (2) Timing: recent history Severity: moderate Activities at Onset: activity Prior Episodes/Possible Cause: frequent episodes HPI: Patient is a 71-year-old male with history of CHF, COPD presenting to the emergency department with chief complaint of worsening shortness of breath over the past 2-3 hours. He reports he became really short of breath after dialysis when he was climbing stairs to get into his apartment. His been seen and evaluated for shortness of breath 2-3 times over the past couple weeks and admitted twice. Patient reports that he received IV steroids and breathing treatments while he was here. Did not receive any antibiotics. Denies any fevers. He does report increasing productive cough with sputum. Denies increasing lower extremity edema. No recent travel. No sick contacts besides being in the hospital. Denies chest pain or palpitations. Denies any current shortness of breath but reports with exertion he gets short of breath. (ANU GRANT) Past History Travel History Traveled to [place] past 21 day No Medical History Any Pertinent Medical History? see below for history Neurological: NONE Cardiovascular: AFIB, CAD, cardiomyopathy, hypertension, hyperlipidemia, systolic CHF, PACEMAKER/DEFIBRILLATOR Respiratory: COPD, obstructive sleep apnea Gastrointestinal: GERD, he had a bleeding polyp in November of this year coupled with a nonbleeding angiodysplasia Renal: ESRD on HD Musculoskeletal: gout Psychiatric: NONE Endocrine: diabetes Blood Disorders: anemia, MGUS Cancer(s): NONE COMMISSIONED POLICE OFFICER/Reproductive: NONE History of MRSA: Yes History of VRE: No History of CDIFF: No Surgical History Surgical History: PACEMAKER,( AICD) SALMA catheter Psychosocial History Who do you live with Patient/Self Services at Home None What is your primary language Mosotho Tobacco Use: Never used ETOH Use: denies use Illicit Drug Use: denies illicit drug use Family History Family History, If Any: MOTHER (Lung cancer). Hx Contributory? Yes (ANU GRANT) Review of Systems Review of Systems Constitutional: Reports: malaise. Comments Review of systems: See HPI, All other systems negative. Constitutional, no chills fever or weight loss HEENT: No visual changes no sore throat Cardiovascular: No chest pain ,palpitation , orthopnea or ankle swelling Skin, no jaundice no rashes Respiratory: No hemoptysis GI: No nausea no vomiting : No dysuria No hematuria Muscle skeletal: no back pain, no neck pain, Neurologic: No numbness no confusion Psych: No stress anxiety or depression,. Heme/endocrine: No bruising no bleeding no polyuria or polydipsia Immunology: No splenectomy or history of AIDS (ANU GRANT) Physical Exam Physical Exam General Appearance: well developed/nourished, alert, awake, comfortable Respiratory: accessory muscle use Comments: Well-developed well-nourished person in no acute distress HEENT: Pupils equally round and reactive to light and accommodation. Nose is atraumatic. External auditory canal and Tympanic membranes clear. Pharynx normal. No swelling or edema. Neck: NORMAL INSPECTION Back: Nontender, no CVA tenderness. Full range of motion Cardiovascular: Regular rate and rhythms no murmurs rubs or gallops, normal JVP Respiratory: Chest nontender. No respiratory distress.scattered rhonchi to auscultation bilaterally Abdomen: Soft, OBESE, nontender nondistended, no appreciable organomegaly. Normal bowel sounds. No ascites Extremity: Nonpitting edema in THE LOW EDEMA, no calf tenderness to palpation, normal and equal pulses. Neuro: Alert oriented x3 Skin: No appreciable rash on exposed skin, skin is warm and dry. Psych: Mood and affect is normal, memory and judgment is normal. (CHRISTIANO AGUIRRE,ANU) Core Measures ACS in differential dx? Yes Severe Sepsis Present: No Septic Shock Present: No (MIKO AGUIRRE,YANETH) Progress Differential Diagnosis: bronchitis, CHF, COPD, pneumonia, pneumothorax Plan of Care: Orders Procedure Date/time Status Heart Healthy Diet 01/24 B Active Discharge Patient 01/24 1129 Active CASE MANAGEMENT CONSULT 01/[address] in observation 01/24 2156 Active Patient Data 01/24 2156 Active Add-on Test (ER Only) 01/23 2011 Active B-TYPE NATRIURETIC PEP (BNP) 01/23 1955 Complete Intake & Output 01/23 194 Active TROPONIN LEVEL 01/23 1938 Complete PARTIAL THROMBOPLASTIN TIME 01/23 1938 Complete PROTHROMBIN TIME 01/23 1938 Complete COMPREHENSIVE METABOLIC PANEL 01/23 1938 Complete CBC WITHOUT DIFFERENTIAL 01/23 1938 Complete EKG 01/23 191 Active Current Medications Sig/Johnna Start time Last Medication Dose Stop Time Status Admin Isosorbide 30 MG ONCE ONE 01/24 0800 CAN Mononitrate 01/24 0801 (Imdur) Laboratory Tests 01/23/171954: Anion Gap 10, Estimated GFR 21 L, BUN/Creatinine Ratio 10.0, Glucose 113 H, Calcium 7.9 L, Total Bilirubin 0.5, AST 19, ALT 34, Alkaline Phosphatase 104, Troponin I 0.06, [id number]-Qjemljmlbdv Pept 27760 H, Total Protein 5.8 L, Albumin 3.4 L, Globulin 2.4, Albumin/Globulin Ratio 1.4, PT 27.6 H, INR 2.65 H, APTT 41 H, CBC w Diff NO MAN DIFF REQ, RBC 4.10 L, MCV 87.6, MCH 28.7, RDW 22.0 H, MPV 8.8, Gran % 75.6 H, Lymphocytes % 12.2 L, Monocytes % 11.0 H, Eosinophils % 1.0, Basophils % 0.2, Absolute Granulocytes 5.5, Absolute Lymphocytes 0.9 L, Absolute Monocytes 0.8 H, Absolute Eosinophils 0.1, Absolute Basophils 0, PUBS MCHC 32.8 L Case was discussed and signed out to me at 2099, Case discussed with Dr. Tapia. Discussed the patient at length all of his lab results, x-ray findings. The x-ray today is improved from recent CAT scan chest x-ray performed during previous admission last week. Patient is resting comfortably 100% on 2 L. However given patient is symptomatic with exertion I believe premature discharge to BE medically harmful at this time given that is on the second floor patient will be an etiology patient for case management consult possible rehabilitation tomorrow which the patient is in agreement with (YANETH GOLDSTEIN) Patient seen with case managment. He is ambulatory on his own, ate breakfast with no trouble. He states that he has a hard time using stairs without his oxygen but refuses to wear his oxygen up the stairs. Christine from case management also was in the ED to see the patient whom they've been working with outpatient. He has home services and will be seen tomorrow. ([address],[facility]) Diagnostic Imaging: Viewed by Me: Radiology Read. Discussed w/RAD: Radiology Read. Hand-Off Endorsed To: YANETH GOLDSTEIN Endorsed Time: 2050 Pending: labs, Xray (ANU GRANT) Differential Diagnosis: asthma, AMI, musculoskeletal pain, pericarditis, pulmonary embolism, KIDNEY DISEASE, ELECTROLYTE ABNROMALITY Diagnostic Imaging: Viewed by Me: Radiology Read. Discussed w/RAD: Radiology Read. Radiology Impression: PATIENT: DUNCAN ORELLANA PRESENT AGE: 71 PATIENT ACCOUNT NO: [id number] : 45 LOCATION: [facility] ORDERING PHYSICIAN: ANU AGUIRRE SERVICE DATE: 01/23/17 EXAM TYPE: RAD - XRY-PORTABLE CHEST XRAY EXAMINATION: XR PORTABLE CHEST CLINICAL INFORMATION: Cough and shortness of breath. COMPARISON: Chest x-ray 01/18/2017. TECHNIQUE: Portable AP view of the chest was obtained. FINDINGS: The lung sharpe are well-expanded. No focal consolidation is demonstrated. The cardiac silhouette is slightly smaller compared to the prior study. There has been interval decrease in the central vascular congestion when compared to the prior study and no interstitial edema is demonstrated. There are no pleural effusions. The aortic arch is calcified and unfolded. There is a pacemaker/AICD from the left chest with multiple leads. There has been a median sternotomy. There is a right-sided dialysis catheter, unchanged. IMPRESSION: 1. There has been interval decrease in the prominence of the central vasculature when compared to the prior study. The cardiac silhouette is slightly decreased in size. 2. There are no areas of focal consolidation. DICTATED BY: MARLO HATFIELD MD DATE/TIME DICTATED:2103 RAPID TRANSIT OPERATOR:SANG DATE/TIME TRANSCRIBED:01/23/172103 CONFIDENTIAL, DO NOT COPY WITHOUT APPROPRIATE AUTHORIZATION. <Electronically signed in Other Vendor System> SIGNED BY: MARLO HATFIELD MD 01/23/172109 Initial ED EKG: VPACED AT 70, NO ACUTE ST SEG CHANGES, NORMAL AXIS Prior EKG: unchanged (01/18/17) Rhythm Strip: VPACED (YANETH GOLDSTEIN) Hand-Off Endorsed To: AUGUSTUS AHUJA MD Endorsed Time: 0700 Pending: consult (TAJ TAPIA MD) Departure Departure Condition: Stable Referrals: [address],YSABEL Burgos (PCP/Family) Departure Forms: Customer Survey General Discharge Information (ANU GRANT) Departure Time of Disposition: 2217 Clinical Impression Primary Impression: COPD exacerbation Secondary Impressions: CKD (chronic kidney disease) Observation Note Spoke With: TAJ TAPIA MD Place Patient In: ED Observation Rationale for Observation: My rational for observation is as follows patient will require case management consult patient does not feel safe at home, he lives on the second floor, patient may require rehabilitation placement premature discharge to be medically harmful]. (YANETH GOLDSTEIN) PA/PRODUCTION WOOD CRAFTSMAN Co-Sign Statement Statement: ED Attending supervision documentation- [] I saw and evaluated the patient. I have also reviewed all the pertinent lab results and diagnostic results. I agree with the findings and the plan of care as documented in the PA's/PRODUCTION WOOD CRAFTSMAN's documentation. [x] I have reviewed the ED Record and agree with the PA's/PRODUCTION WOOD CRAFTSMAN's documentation. [] Additions or exceptions (if any) to the PAs/PRODUCTION WOOD CRAFTSMAN's note and plan are summarized below: [] ([address],TAJ Morfin) Departure Time of Disposition: 1129 Disposition: HOME OR SELF CARE Additional Instructions: FOLLOW UP WITH YOUR DIALYSIS APPOINTMENT WELL WITH CASE MANAGEMENT /SOCIAL WORK REFERRALS. (AUGUSTUS AHUJA MD) Critical Care Note Critical Care Note Critical Care Time: non-applicable (YANETH GOLDSTEIN) ED Attending Observation Observation Re-Evaluation: I have reevaluated DUNCAN ORELLANA on 01/23/17 at 2351. The physical findings that support the continued need to observe this patient include pt merits having his respiratory status monitored... potential placement in AM. (TAJ TAPIA MD) Initial Observation Note: I have seen and personally examined DUNCAN ORELLANA on 01/24/17 at 0811. I agree with the current emergency department documentation. The disposition (admission or discharge) is uncertain at this time, he needs a period of observation for the following reason(s): The ED Nurse caring for this patient has been personally informed as to what the patient is being observed for. 01/24/2017 8:11:30 AM Patient signed out to me by Dr. Tapia at 7 AM. Pending case management disposition this morning. Observation Re-Evaluation: I have reevaluated DUNCAN ORELLANA on 01/24/17 at 1032. The physical findings that support the continued need to observe this patient include . 10:32 AM Patient seen by Yanci from case management. She spent extensive time with the patient at bedside. He will wait here to be evaluated by Christine Noyola from case management. Observation Discharge: I have reevaluated DUNCAN ORELLANA on 01/24/17 at 1130. The patient is: ([X]): Stable for discharge (): To be admitted to Nursing Floor (): To be placed in Observation on Nursing Floor (): For transfer to other facility The patient was being observed for [DYSPNEA, COPD, CKD] As a result of that observation, I have determined [WILL FOLLOW UP WITH [facility].]. (RICHARD AHUJA MDI)
--- NOTE | 2017-01-23 20:03 | NUR ---
SST, BLUE,LAV, ONEAL AND PINK SENT TO LAB
--- NOTE | 2017-01-23 20:03 | NUR ---
LABS DRAWN. NEB TX GIVEN. ANU AGUIRRE IN TO SEE PT
[2017-01-23 20:08] LABS: ABSOLUTE BASOPHIL COUNT 0 /CUMM (0.0-0.2); ABSOLUTE EOSINOPHIL COUNT 0.1 /CUMM (0.0-0.7); ABSOLUTE GRANULOCYTE CT 5.5 /CUMM (1.4-6.5); ABSOLUTE LYMPH COUNT 0.9 /CUMM (1.2-3.4); ABSOLUTE MONOCYTE COUNT 0.8 /CUMM (0.10-0.60); BASOPHIL % 0.2 % (0.0-2.0); GRANULOCYTE % 75.6 % (42.2-75.2); HEMATOCRIT 35.9 % (42-52); MEAN CORPUSCULAR HGB 28.7 PG (27.0-31.0); MEAN CORPUSCULAR HGB CONC 32.8 G/DL (33.0-37.0); MEAN CORPUSCULAR VOLUME 87.6 FL (80.0-94.0); MEAN PLATELET VOLUME 8.8 FL (7.4-10.4); PLATELET COUNT 138 /CUMM (130-400); WHITE BLOOD CELL COUNT 7.3 /CUMM (4.8-10.8)
[2017-01-23 20:24] LABS: PT 27.6 SEC (9.4-12.5); PTT 41 SEC (25-37)
--- NOTE | 2017-01-23 20:52 | NUR ---
PT RESTING QUIELTY ON STRETCHER, WATCHING TV. GIVEN ROBITUSSIN AC AND SOLUMEDROL
--- NOTE | 2017-01-23 21:10 | RADIOLOGY REPORT ---
EXAMINATION: XR PORTABLE CHEST CLINICAL INFORMATION: Cough and shortness of breath. COMPARISON: Chest x-ray 01/18/2017. TECHNIQUE: Portable AP view of the chest was obtained. FINDINGS: The lung sharpe are well-expanded. No focal consolidation is demonstrated. The cardiac silhouette is slightly smaller compared to the prior study. There has been interval decrease in the central vascular congestion when compared to the prior study and no interstitial edema is demonstrated. There are no pleural effusions. The aortic arch is calcified and unfolded. There is a pacemaker/AICD from the left chest with multiple leads. There has been a median sternotomy. There is a right-sided dialysis catheter, unchanged. IMPRESSION: 1. There has been interval decrease in the prominence of the central vasculature when compared to the prior study. The cardiac silhouette is slightly decreased in size. 2. There are no areas of focal consolidation.
--- NOTE | 2017-01-23 21:59 | NUR ---
PT RESTING QUIETLY. SEEN BY YANETH DUARTE. PLAN TO KEEP IN ED FOR OBSERVATION
--- NOTE | 2017-01-23 23:15 | NUR ---
pt moved to room 10. report given to juan morrow
--- NOTE | 2017-01-23 23:34 | NUR ---
RECIEVED REPORT FROM OLI CHARLES. ASSUMED CARE OF PT. PT SLEEPING IN HOSPITAL BED WITH REGULAR RR ON BASELINE 2 L 02. NO ACUTE DISTRESS NOTED. WILL CTM.
--- NOTE | 2017-01-24 01:05 | NUR ---
PT ASKING WHY HE IS TO REMAIN HERE OVER NIGHT. EXPLAINED TO PT WE ARE WATCHING HIS 02 LEVELS AND BREATHING AND PER PT WILL POSSIBLY BE PLACED SOMEWHERE?. PT WAS D/C FROM [facility] ON MONDAY.
--- NOTE | 2017-01-24 02:10 | NUR ---
PT FELL BACK ASLEEP, SLEEPING WITH REGULAR RR AT THIS TIME. NO ACUTE DISTRESS NOTED.
--- NOTE | 2017-01-24 04:03 | NUR ---
PT CONTINUES TO SLEEP WITH REGULAR RR AT THIS TIME, NO ACUTE DISTRESS NOTED. SATTING 94% ON BASLINE 2L NC.
--- NOTE | 2017-01-24 05:17 | NUR ---
PT PROVIDED WITH WATER AND DECAF COFFEE PER REQUEST AND OKAY BY .
--- NOTE | 2017-01-24 06:34 | NUR ---
PT AWAKE, COUGHING NONPRODUCTIVELY. O2 SATS REMAINING 99% ON BASELINE 2 L NC. PT DENIES ANY PAIN AT THIS TIME OR ANY OTHER NEEDS. VSS.
--- NOTE | 2017-01-24 07:19 | NUR ---
ASSUMED CARE OF PT WHO IS A&O X3, NAD. PT DENIES BEING SOB AND STATES HE IS ONLY SOB WITH EXERTION. PT EATING BREAKFAST TRAY AND UNDERSTANDS HE IS WAITING FOR CASE MANAGEMENT. WILL CONTINUE TO MONITOR
--- NOTE | 2017-01-24 08:09 | NUR ---
MEDS ORDERED FROM PHARMACY
--- NOTE | 2017-01-24 08:47 | NUR ---
Physical Therapy. PT consult received and chart reviewed. Pt has been independent w/ ambulation and came to the hospital 2/ SOB s/p climbing a flight of stairs when he was off his home . Discussed w/ nsg to trial ambulation and contact PT if pt is unable to ambulate safely. Nsg in agreement.
--- NOTE | 2017-01-24 08:54 | NUR ---
PT MEDICATED WITH MORNING MEDS PER DOCUMENTATION. PT IS INDEPENDENT WITH AMBULATION AT HOME AND STATES HE DOES NOT USE WALKER OR CANE. PT ABLE TO AMBULATE INDEPENDENTLY IN ER
--- NOTE | 2017-01-24 09:55 | NUR ---
ALEX FROM CASE MANAGEMENT AT BEDSIDE
--- NOTE | 2017-01-24 10:32 | NUR ---
PER ALEX, PT WAITING TO SEE ANILA AFTER 1100 FOR POC
--- NOTE | 2017-01-24 11:45 | NUR ---
Case Mgmnt TSF: I have spent extensive time with patient this morning. Patient has [employer] set up at home. They are in process of potentially getting a MEDICAL PLANNER for the patient. Patient has dialysis /MON/MON. Patient did go to dialysis yesterday. I asked patient what he would prefer to do and patient wants to go home as he has a "lot of stuff to do". Patient is aware that he has [facility] set up. I also gave him a list of private pay agencies that he could get additional help through (i.e. light cleaning, possible transport for errands, shopping etc.). Patient seemed interested. Per patient, he lives in a duplex on the upper portion. He states that the lower unit is vacant and that he's been speaking with his landlord to possibly move to the first floor to make it easier for him. Patient also told me that he is going to be here on the for a "fistula placement". Citlali was also in room and was discussing multiple things to help patient as she has been following him closely in the community. Citlali is going to place a call to [facility] for follow up for patient. CM continuing to follow.
--- NOTE | 2017-01-24 12:06 | NUR ---
TRANSPORTATION BOOKED AT 1208 WILL BE HERE IN 15 MINS
[2017-01-24 12:27] VITALS: BP 148/65
--- NOTE | 2017-01-24 12:32 | NUR ---
PT CLEARED FOR DISCHARGE AND DISCHARGED TO HOME VIA [facility] ALL DISCHARGE INSTRUCTIONS GIVEN PT VERBALIZES UNDERSTANDING
== END 2017-01-24 12:37 ==
LOC: ERH 19:13 → ERHI 21:56 → EDBEDREQ 22:44 → ERHI 01-24 12:34
PROVIDERS: Physician Assistant; ADMIT Pediatrics
DX: J44.1 Chronic obstructive pulmonary disease with (acute) exacerbation (principal); N20.0 Calculus of kidney; D64.9 Anemia, unspecified; I48.0 Paroxysmal atrial fibrillation; Z79.01 Long term (current) use of anticoagulants; I25.10 Atherosclerotic heart disease of native coronary artery without angina pectoris; I73.9 Peripheral vascular disease, unspecified; I42.9 Cardiomyopathy, unspecified; E11.22 Type 2 diabetes mellitus with diabetic chronic kidney disease; I13.2 Hypertensive heart and chronic kidney disease with heart failure and with stage 5 chronic kidney disease, or end stage renal disease; N18.6 End stage renal disease; I50.22 Chronic systolic (congestive) heart failure; Z99.2 Dependence on renal dialysis
CPT/HCPCS: 1263; 6090; 93005; 93010; 96374; G0378; J2930; J3490

== ENCOUNTER → 2017-01-26 | Day surgery (SDC) | payer OTHER, MEDICARE ==
[~2017-01-26] VITALS: Ht 167.6 cm; Wt 80.3 kg
[~2017-01-26] MED LIST changes: +ISOSORBIDE MONO30 M1 PO; +LISINOPRIL2.5 M1 PO
--- NOTE | 2017-01-26 17:33 | Operative Report ---
Operative/Inv Procedure Report Surgery Date: 01/26/17 Name of Procedure: Left brachiocephalic AV fistula Pre-Operative Diagnosis: End-stage renal disease Post-Operative Diagnosis: Same Estimated Blood Loss: scant Surgeon/House Carpenter Helper: CHRISTO EASTON MD Anesthesia: local monitored anesthesi Operative/Procedure Note Note: The patient was brought to the operating room and placed on the table in the supine position and prepped and draped in the usual fashion. Prior to the start of the procedure a timeout was taken to confirm the patient and procedure. Additionally, a preoperative dose of antibiotics was administered prior to incision. I began by anesthetizing the region below the left antecubital crease with a mixture of 1% lidocaine plain and half percent Marcaine plain mixed 50- 50. I then dissected down with a combination of blunt dissection and electrocautery until I encountered the cephalic vein. This was freed up for approximately 2-3 cm longitudinally. I then moved medially and identified the brachial artery. This was encircled proximally and distally proximally at the brachial artery and distally at the bifurcation of the radial and ulnar arteries. I gave 3000 units of intravenous heparin. I then made in approximately 6 mm arteriotomy in the brachial artery and attached the cephalic vein in an end to side fashion with a running 6-0 Prolene suture. The clamps were released and there was a strong thrill felt throughout the cephalic vein. I released the distal clamps and there was a distal palpable ulnar pulse, consistent with his preoperative exam. The wounds were irrigated and I closed with a running 3-0 Vicryl subcutaneous tissue stitch and a running 4-0 Monocryl subcuticular stitch topical Dermabond skin glue was applied and dressings placed. There was a palpable ulnar pulse and a strong palpable thrill in the upper arm at the completion of the procedure. There were no specimens. I was present and scrubbed throughout. Discharge Disposition: PACU
== END ==
LOC: STS 01:44
DX: I12.0 Hypertensive chronic kidney disease with stage 5 chronic kidney disease or end stage renal disease (principal); E11.22 Type 2 diabetes mellitus with diabetic chronic kidney disease; N18.6 End stage renal disease; Z79.4 Long term (current) use of insulin; J44.9 Chronic obstructive pulmonary disease, unspecified; Z87.891 Personal history of nicotine dependence; I25.10 Atherosclerotic heart disease of native coronary artery without angina pectoris; I50.40 Unspecified combined systolic (congestive) and diastolic (congestive) heart failure
CPT/HCPCS: 1263; 36415; J1644; J2250

== ENCOUNTER 2017-01-27 19:11 | Inpatient (IN) | payer OTHER, MEDICARE ==
[~2017-01-27] VITALS: Ht 167.6 cm; Wt 81.6 kg
[~2017-01-27 19:11] MED LIST changes: -ISOSORBIDE MONO30 M1 PO; -LISINOPRIL2.5 M1 PO
--- NOTE | 2017-01-27 19:20 | NUR ---
PT BIBA FROM DIALYSIS C/O ABD PAIN. PER EMS STATES THAT ABOUT 2HRS ? AGO AT DIALYSIS PT STARTED TO COMPLAIN THAT LOWER ABD PAIN WAS CONSTANT AND SHARP STABBING. PT STATES DRY HEAVES AND SPUTUM. PT STATES SPUTUM IS CLEAR/ WHITE. ON ARRIVAL PT STATES THAT ABD FEELS BETTER AND THERE IS NO PAIN. PT HAS LEFT ARM RESTRICTION FOR FISTULA THAT WAS PLACED YESTERDAY 01/26/17. PT ALSO HAS RIGHT SIDED PORT ON CHEST FOR DIALYSIS. PACEMAKER ON LEFT SIDE OF CHEST. PT STATES DIARREHA REGULARLY AND HAS A WET PRODUCTIVE COUGH. AWAITING PROVIDER EVAL.
--- NOTE | 2017-01-27 19:55 | NUR ---
IV ACCESS ESTABLISHED BY THIS RN RFA #[id number], LABS DRAWN AND SENT BY THIS RN (LAV, JACINTO, BLUE ,SST, PINK)
--- NOTE | 2017-01-27 19:58 | NUR ---
CARLA CHERYL S IN RM FOR EVAL
--- NOTE | 2017-01-27 20:06 | ED GI/GU/ABDOMINAL COMPLAINT ---
History of Present Illness General Chief Complaint: Abdominal Pain/Flank Pain Stated Complaint: BIBA FOR ABD PAIN Source: patient Exam Limitations: no limitations Allergies Coded Allergies: No Known Allergies (01/25/17) Reconcile Medications Albuterol Sulfate 0.63 MG/3 ML VIAL.NEB 1 Vial INH/SALIMA TID PRN COPD (Reported ) Albuterol Sulfate (Proventil Hfa) 90 MCG HFA.AER.AD 2 PUF INH 4 TIMES/DAY PRN COPD (Reported) Allopurinol 100 MG TABLET 1 TAB PO DAILY GOUT Aspirin (Ecotrin*) 81 MG TABLET.DR 1 TAB PO DAILY Heart Health (Reported) Budesonide/Formoterol Fumarate (Symbicort 80-4.5 Mcg Inhaler) 80 MCG-4.5 MCG/ ACTUATION HFA.AER.AD 2 PUF INH BID copd Calcitriol 1 MCG/ML AMPUL 1 MCG IV MoWeFr WITH DIALYSIS Calcium Carbonate 500 MG CALCIUM (1,250 MG) TABLET 1 TAB PO TIDAC ESRD Colchicine 0.6 MG TABLET 300 MCG PO DAILY gout Folic Acid 1 MG TABLET 1 TAB PO DAILY SUPPLEMENT (Reported) Furosemide (Lasix) 80 MG TABLET 1 TAB PO DAILY CHF (Reported) Guaifenesin (Mucinex) 600 MG TAB.ER.12H 1 TAB PO BID MUCOLYTIC Insulin Lispro (Humalog) 100 UNIT/ML VIAL diabetes (Reported) Blood sugar Insulin dose < 80mg/dl No dose 80-150 mg/dl no dose 151-200mg/dl 1 unit 201-250mg/dl 2 units 251-300mg/dl 3 units 301-350mg/dl 4 units 351-400mg/dl 6 units 351-400mg/dl 6 units > 400 8 call PLEASE RESUME ON MonDec 151-200 0 Isosorbide Mononitrate (Isosorbide Mononitrate ER) 60 MG TAB.ER.24H 1 TAB PO DAILY HTN (Reported) Loratadine (Claritin) 10 MG TABLET 1 TAB PO DAILY NASAL CONGESTION Metoprolol Tartrate (Lopressor) 50 MG TABLET 1 TAB PO BID HTN (Reported) Mometasone Furoate (Nasonex) 50 MCG SPRAY.PUMP 2 SPRAY NASB DAILY NASAL CONGESTION Omeprazole 20 MG CAPSULE. 1 CAP PO DAILY GERD (Reported) Simvastatin (Zocor*) 20 MG TABLET 1 TAB PO QPM Cholesterol (Reported) Warfarin Sodium (Coumadin) 5 MG TABLET 0.5-1 TAB PO AD BLOOD THINNER ( Reported) please dose Coumadin as per INR. Triage Note: PT BIBA FROM DIALYSIS C/O ABD PAIN. PER EMS STATES THAT ABOUT 2HRS ? AGO AT DIALYSIS PT STARTED TO COMPLAIN THAT LOWER ABD PAIN WAS CONSTANT AND SHARP STABBING. PT STATES DRY HEAVES AND SPUTUM. PT STATES SPUTUM IS CLEAR/ WHITE. ON ARRIVAL PT STATES THAT ABD FEELS BETTER AND THERE IS NO PAIN. PT HAS LEFT ARM RESTRICTION FOR FISTULA THAT WAS PLACED YESTERDAY 01/26/17. PT ALSO HAS RIGHT SIDED PORT ON CHEST FOR DIALYSIS. PACEMAKER ON LEFT SIDE OF CHEST. PT STATES DIARREHA REGULARLY AND HAS A WET PRODUCTIVE COUGH. AWAITING PROVIDER EVAL. Triage Nurses Notes Reviewed? yes HPI: This patient is a 72-year-old male who presented to the emergency department today brought in by ambulance from dialysis for evaluation of abdominal pain. The patient reported that group home through receiving his dialysis he developed sharp, nonradiating lower abdominal pain which he rated at its worst at a 5 out of 10. The pain is currently 3 out of 10. He reported that he passed some gas and felt better. He reported nausea, but no vomiting. The pain has been intermittent with no provoking factors. The patient denied any chest pain, difficulty breathing, diarrhea, urinary symptoms, fevers, or chills. (DIANA SMITH,PAYAL) Vital Signs & Intake/Output Vital Signs & Intake/Output Vital Signs Date Time Temp Pulse Resp B/P Pulse O2 O2 Flow FiO2 Ox Delivery Rate 02/01 08 98.4 76 16 120/60 95 Nasal 3.0L Cannula 02/01 08 95 Nasal 3.0L Cannula 02/01 0221 Nasal 2.0L Cannula 02/01 0000 96 Nasal 2.0L Cannula 02/01 0000 97.8 76 20 130/50 96 Nasal 2.0L Cannula 01/31 1924 97 Nasal 2.0L Cannula 01/31 1600 97.8 72 18 118/62 95 Nasal 3.0L Cannula 01/31 1600 95 Nasal 3.0L Cannula ED Intake and Output 02/01 0000 01/31 1200 Intake Total 1193 328 Output Total 330 1 Balance 863 327 Intake, IV 453 208 Intake, Oral 740 120 Output, Other 10 Output, Stool 220 1 Output, Urine 100 0 Patient 197 lb Weight Past History Travel History Traveled to [place] past 21 day No Medical History Any Pertinent Medical History? see below for history Neurological: NONE Cardiovascular: AFIB, CAD, cardiomyopathy, hypertension, hyperlipidemia, systolic CHF, PACEMAKER/DEFIBRILLATOR Respiratory: COPD, obstructive sleep apnea Gastrointestinal: GERD, he had a bleeding polyp in November of this year coupled with a nonbleeding angiodysplasia Renal: ESRD on HD Musculoskeletal: gout Psychiatric: NONE Endocrine: diabetes Blood Disorders: anemia, MGUS Cancer(s): NONE PICCOLOIST/Reproductive: NONE History of MRSA: Yes History of VRE: No History of CDIFF: No Surgical History Surgical History: PACEMAKER,( AICD) SALMA catheter Psychosocial History Who do you live with Patient/Self Services at Home None What is your primary language Micronesian Tobacco Use: Quit >30 days ago ETOH Use: denies use Illicit Drug Use: denies illicit drug use Family History Family History, If Any: MOTHER (Lung cancer). Hx Contributory? No (PAYAL ORTIZ PA-C) Review of Systems Review of Systems Constitutional: Reports: no symptoms. EENTM: Reports: no symptoms. Respiratory: Reports: no symptoms. Cardiovascular: Reports: no symptoms. GI: Reports: see HPI. Genitourinary: Reports: no symptoms. Musculoskeletal: Reports: no symptoms. Skin: Reports: no symptoms. Neurological/Psychological: Reports: no symptoms. Hematologic/Endocrine: Reports: no symptoms. All Other Systems: Reviewed and Negative (PAYAL ORTIZ PA-C) Physical Exam Physical Exam Gastrointestinal: normal bowel sounds, soft, mild distention. No organomegaly. Mild tenderness to palpation in the mid lower abdomen with no rebound or guarding. No masses appreciated. No ascites Comments: Well-developed well-nourished person in no acute distress HEENT: Normal EENT exam, head normocephalic, moist mucous membranes Pupils equally round and reactive to light. Neck: Supple with no lymphadenopathy Back: Normal inspection Cardiovascular: Regular rate and rhythm with no murmurs, rubs, or gallops Respiratory: No respiratory distress. Breath sounds clear to auscultation bilaterally Extremity: Normal and equal pulses Neuro: Alert oriented x3, cranial nerves II through XII grossly intact. Skin: No appreciable rash on exposed skin, skin is warm and dry. Psych: Mood and affect is normal Core Measures ACS in differential dx? Yes Severe Sepsis Present: No Septic Shock Present: No (DIANA SMITHPAYAL) Progress Differential Diagnosis: AAA, AMI, appendicitis, biliary colic, bowel obstruction , colon cancer, cholecystitis, diverticulitis, gastritis, hepatitis, hernia, ischemic bowel, inflamm bowel dis, pancreatitis, PUD/GERD, pyelonephritis, SBO, ureterolithiasis, urinary retention, urethritis, UTI/pyelo Diagnostic Imaging: Viewed by Me: CT Scan. Discussed w/RAD: CT Scan. Radiology Impression: PATIENT: DUNCAN ORELLANA PRESENT AGE: 72 PATIENT ACCOUNT NO: [id number] : 45 LOCATION: ER ORDERING PHYSICIAN: PAYAL ORTIZ PA-C SERVICE DATE: 01/27/17 EXAM TYPE: CAT - CT ABD & PELVIS W/O IV CONTRAS EXAMINATION: CT ABDOMEN AND PELVIS WITHOUT CONTRAST CLINICAL INFORMATION: Intra-abdominal process. Lower abdominal pain. COMPARISON: Renal ultrasound September 2016. CT of the chest February 2015. TECHNIQUE: Multidetector volumetric imaging was performed from the superior aspect of the liver through the pubic symphysis. Sagittal and coronal reformatted images were obtained on the technologist's workstation. DLP: 538 mGy -cm FINDINGS: LUNG BASES: The visualized lung bases are unremarkable. LIVER, GALLBLADDER, AND BILIARY TREE: There is portal venous air present. The patient is status post cholecystectomy. PANCREAS: Unremarkable SPLEEN: Unremarkable ADRENAL GLANDS: Unremarkable KIDNEYS AND URETERS: There is a large calculus in the left renal pelvis UP junction measuring 16 mm transverse, 16 mm craniocaudal and 10 mm AP. There are 3 adjacent renal calculi, the largest 2 measuring 5 mm and a smaller measuring 1 mm in the lower pole. There is mild dilatation of the collecting system in the lower and mid pole. The upper pole is decompressed. There is no definite perinephric stranding related to the stones and dilated collecting system. Similar stranding noted in the right kidney without calculi. BLADDER: Minimally distended. No stones. GASTROINTESTINAL TRACT: There is air present in the mesentery surrounding the transverse colon as well as more centrally in mesentery. See axial image . No definite air in the bowel wall. No definite bowel wall thickening. ABDOMINAL WALL: Minimal calcification in the superficial subcutaneous soft tissues of the right abdominal wall likely dystrophic without clinical significance. LYMPH NODES: Normal VASCULAR: Severe arterial calcification throughout unchanged. PELVIC VISCERA: Unremarkable OSSEOUS STRUCTURES: Multilevel spondylosis with prominent degenerative disc changes present at L5-S1. IMPRESSION: Portal venous air as well as air in the central mesentery and surrounding the transverse colon. Etiology unclear. Bowel ischemia is a consideration and should be excluded. The air is new compared to a prior CT performed 01/18/2017. Although this can be seen with bowel ischemia this can also be seen with benign conditions including following endoscopy, corticosteroid use, and chronic obstructive lung disease. Therefore clinical significance unclear. Large stone in the distal renal pelvis/UP junction with additional smaller stones in the lower pole of the kidney. The number and size of the stones appears increased compared to prior. Pelvocaliectasis in the lower two-thirds of the left kidney raising the question of obstructing the lower central collecting system of the left kidney. Status post cholecystectomy. Severe calcific atherosclerotic disease. This critical result was discussed with Dr. Young at 10:30 PM on January 27, 2017 and it was ascertained that the content and urgency of the report was understood at the time of direct communication. DICTATED BY: JONAH JOHNSON MD DATE/TIME DICTATED:01/27/172142 GOLD LETTERER:SANG DATE/TIME TRANSCRIBED:01/27/172142 CONFIDENTIAL, DO NOT COPY WITHOUT APPROPRIATE AUTHORIZATION. <Electronically signed in Other Vendor System> SIGNED BY: JONAH JOHNSON MD 01/27/17 7019 Initial ED EKG: normal axis, normal intervals, no ST T wave changes, 66 beats for minute, paced rhythm Repeat EKG: unchanged Hand-Off Endorsed To: LUISANA YOUNG MD Endorsed Time: 42 Pending: other Comments: 01/27/2017 11:28:20 PM: I discussed this patient with on-call general surgeon, Adalberto Lopez MD. He is going to send the surgical PA down to the floor to evaluate this patient [id number]. Requested that this patient receive fluids for possible dehydration. 01/27/2017 11:58:11 PM: DR YOUNG IS AT THE PATIENT'S BEDSIDE FOR FACE TO FACE EVALUATION (PAYAL ORTIZ PA-C) Plan of Care: Orders Procedure Date/time Status MAGNESIUM 02/02 0500 Active CBC WITHOUT DIFFERENTIAL 02/02 0500 Active BASIC ELECTROLYTES PLUS BUN&CR 02/02 0500 Active PARTIAL THROMBOPLASTIN TIME 02/01 1400 Active PROTHROMBIN TIME 02/01 0220 Complete PARTIAL THROMBOPLASTIN TIME 02/01 0115 Complete Lab Add-on Test 02/01 UNK Active Full Liquid Diet 01/31 L Active AEROSOL CHG 01/31 UNK Complete OXYGEN 01/31 UNK Complete OXYGEN DAILY CHARGE 01/31 UNK Complete RT OVER-RIDE 01/31 UNK Complete Nursing Misc 01/31 UNK Active Current Medications Sig/Johnna Start time Last Medication Dose Stop Time Status Admin Potassium Chloride 20 MEQ ONCE ONE 02/01 06 CAN (Klor) 02/01 06 Potassium Chloride 40 MEQ ONCE ONE 02/01 0630 CAN (Klor) 02/01 06 Magnesium Sulfate 1 GM ONCE ONE 02/01 014 CAN (Mag Sulfate in D5) 02/01 0544 Dextrose/Water 100 ML (D5W) Potassium Chloride 20 MEQ ONCE ONE 02/01 014 CAN (Klor) 02/01 0146 Acetylcysteine 4 ML BID 01/31 1000 CAN (Mucosol 20%) 02/02 2201 Calcitriol 0.25 MCG MoWeFr PRN 01/30 0815 AC (Calcijex Inj. (1MCG/ Ml)) Epoetin Guzman 4,000 UNIT MoWeFr PRN 01/30 0815 AC (Epogen Inj 4000 (DIALYSIS PATIENT)) Laboratory Tests 02/01/17 022: Anion Gap 8, Estimated GFR 11 L, BUN/Creatinine Ratio 7.8, Magnesium 2.0, PT 12.6 H, INR 1.20 H, APTT 85 H, CBC w Diff NO MAN DIFF REQ, RBC 3.33 L, MCV 91.0, MCH 28.5, RDW 21.9 H, MPV 8.7, Gran % 76.2 H, Lymphocytes % 11.9 L, Monocytes % 9.9 H, Eosinophils % 1.6, Basophils % 0.4, Absolute Granulocytes 7.8 H, Absolute Lymphocytes 1.2, Absolute Monocytes 1.0 H, Absolute Eosinophils 0.2, Absolute Basophils 0, PUBS MCHC 31.3 L 01/31/17 1312: APTT 84 H Comments: 01/27/2017 10:28:01 PM PER RADIOLOGIST, PORTAL VENOUS AIR IN LIVER AND MESENTARY, PANTERA TRANSVERSE COLON. NO DEFINITE ISCHEMIC BOWEL. NOT SEEN ON Jan CT. (JOIE STRE[address],LUISANA Kapoor) Departure Departure Disposition: STILL A PATIENT Condition: Stable Clinical Impression Primary Impression: Abdominal pain Qualifiers: Abdominal location: unspecified location Qualified Code: R10.9 - Unspecified abdominal pain Referrals: [address],YSABEL Burgos (PCP/Family) Departure Forms: Customer Survey General Discharge Information OR/GI Note Spoke With: KIKI STRE[address],ADALBERTO May ED Treatment Decision: DUNCAN ORELLANA requires urgent operative management or an emergent procedure that cannot be performed in the Emergency Room setting. Transport To: [facility] (DIANA SMITH,PAYAL) PA/CONTROL SYSTEMS SPECIALIST Co-Sign Statement Statement: ED Attending supervision documentation- [x] I saw and evaluated the patient. I have also reviewed all the pertinent lab results and diagnostic results. I agree with the findings and the plan of care as documented in the PA's/CONTROL SYSTEMS SPECIALIST's documentation. [] I have reviewed the ED Record and agree with the PA's/CONTROL SYSTEMS SPECIALIST's documentation. [] Additions or exceptions (if any) to the PAs/CONTROL SYSTEMS SPECIALIST's note and plan are summarized below: [] ([address]IE [address],LUISANA Kapoor)
[2017-01-27 20:37] LABS: ABSOLUTE BASOPHIL COUNT 0 /CUMM (0.0-0.2); ABSOLUTE EOSINOPHIL COUNT 0.1 /CUMM (0.0-0.7); ABSOLUTE MONOCYTE COUNT 0.8 /CUMM (0.10-0.60); BASOPHIL % 0.3 % (0.0-2.0); EOSINOPHIL % 0.5 % (0-5); GRANULOCYTE % 81.3 % (42.2-75.2); HEMATOCRIT 39.3 % (42-52); MEAN CORPUSCULAR HGB 28.7 PG (27.0-31.0); MEAN CORPUSCULAR VOLUME 89.8 FL (80.0-94.0); MEAN PLATELET VOLUME 9.1 FL (7.4-10.4); PLATELET COUNT 178 /CUMM (130-400); RBC DISTRIBUTION WIDTH 22.5 % (11.5-14.5); RED BLOOD CELL CT 4.37 /CUMM (4.70-6.10); WHITE BLOOD CELL COUNT 9.8 /CUMM (4.8-10.8)
--- NOTE | 2017-01-27 21:28 | NUR ---
PT TO CT SCAN VIA STRETCHER
--- NOTE | 2017-01-27 22:44 | CT SCAN REPORT ---
EXAMINATION: CT ABDOMEN AND PELVIS WITHOUT CONTRAST CLINICAL INFORMATION: Intra-abdominal process. Lower abdominal pain. COMPARISON: Renal ultrasound September 2016. CT of the chest February 2015. TECHNIQUE: Multidetector volumetric imaging was performed from the superior aspect of the liver through the pubic symphysis. Sagittal and coronal reformatted images were obtained on the technologist's workstation. DLP: 538 mGy-cm FINDINGS: LUNG BASES: The visualized lung bases are unremarkable. LIVER, GALLBLADDER, AND BILIARY TREE: There is portal venous air present. The patient is status post cholecystectomy. PANCREAS: Unremarkable SPLEEN: Unremarkable ADRENAL GLANDS: Unremarkable KIDNEYS AND URETERS: There is a large calculus in the left renal pelvis UP junction measuring 16 mm transverse, 16 mm craniocaudal and 10 mm AP. There are 3 adjacent renal calculi, the largest 2 measuring 5 mm and a smaller measuring 1 mm in the lower pole. There is mild dilatation of the collecting system in the lower and mid pole. The upper pole is decompressed. There is no definite perinephric stranding related to the stones and dilated collecting system. Similar stranding noted in the right kidney without calculi. BLADDER: Minimally distended. No stones. GASTROINTESTINAL TRACT: There is air present in the mesentery surrounding the transverse colon as well as more centrally in mesentery. See axial image . No definite air in the bowel wall. No definite bowel wall thickening. ABDOMINAL WALL: Minimal calcification in the superficial subcutaneous soft tissues of the right abdominal wall likely dystrophic without clinical significance. LYMPH NODES: Normal VASCULAR: Severe arterial calcification throughout unchanged. PELVIC VISCERA: Unremarkable OSSEOUS STRUCTURES: Multilevel spondylosis with prominent degenerative disc changes present at L5-S1. IMPRESSION: Portal venous air as well as air in the central mesentery and surrounding the transverse colon. Etiology unclear. Bowel ischemia is a consideration and should be excluded. The air is new compared to a prior CT performed 01/18/2017. Although this can be seen with bowel ischemia this can also be seen with benign conditions including following endoscopy, corticosteroid use, and chronic obstructive lung disease. Therefore clinical significance unclear. Large stone in the distal renal pelvis/UP junction with additional smaller stones in the lower pole of the kidney. The number and size of the stones appears increased compared to prior. Pelvocaliectasis in the lower two-thirds of the left kidney raising the question of obstructing the lower central collecting system of the left kidney. Status post cholecystectomy. Severe calcific atherosclerotic disease. This critical result was discussed with Dr. Young at 10:30 PM on January 27, 2017 and it was ascertained that the content and urgency of the report was understood at the time of direct communication.
--- NOTE | 2017-01-27 23:01 | NUR ---
PT MEDICATED WITH 500MG TUMS FOR PAIN 5/10.
--- NOTE | 2017-01-27 23:40 | NUR ---
SURGICAL PA IN WITH PT FOR EVAL
--- NOTE | 2017-01-27 23:47 | NUR ---
REPEAT TROP DRAWN AND SENT TO LAB
--- NOTE | 2017-01-28 00:07 | NUR ---
EKG DONE AND SHOWN TO DR. SALTER, AND OTIS AGUIRRE.
--- NOTE | 2017-01-28 00:51 | NUR ---
PT MEDICATED WITH 2MG MORPHINE IV PER EMAR FOR PAIN 08/15. REDRAW ON A PTT AND TYPE AND SCREEN COMPLETED AND SENT TO LAB BY THIS RN
[2017-01-28 00:59] LABS: PT 20.7 SEC (9.4-12.5); PTT 38 SEC (25-37)
--- NOTE | 2017-01-28 02:05 | NUR ---
REDRAW OF A TYPE AND SCREEN DRAWN AND SENT AGAIN
--- NOTE | 2017-01-28 02:11 | Cons- General Surgery ---
General Information and HPI Consulting Request Date of Consult: 01/28/17 Requested By: lorena cruz History of Present Illness: CC: abdominal pain HPI: Just turned 72-year-old ex-smoker diabetic with end-stage renal disease recently started dialysis in October also with COPD and heart disease, defibrillator pacemaker, recently admitted here with exacerbation of COPD who during dialysis today started having some abdominal pain and asked them to stop he says his pressure was down during the treatment, but then it came up the pain is constant , he feels that in his entire abdomen and it doesn't radiate, it's uncomfortable on movement its minimally relieved with analgesics he also feels gassy and bloated which has been an ongoing issue he says he has not had this type of abdominal pain before yesterday he had a vascular access placed under regional anesthesia but he says afterwards he ate well including this morning. He still has a cough but denies any fevers. Otherwise no changes bowel habits, weight or appetite. I've reviewed the [facility]. No history of GERD, PUD, he has had a colonoscopy done for GI bleed which was related to a polyp. Family history his mother had lung cancer, no colorectal cancer. Allergies/Medications Allergies: Coded Allergies: No Known Allergies (01/25/17) Home Med List: Albuterol Sulfate 0.63 MG/3 ML VIAL.NEB 1 Vial INH/SALIMA TID PRN COPD (Reported ) Albuterol Sulfate (Proventil Hfa) 90 MCG HFA.AER.AD 2 PUF INH 4 TIMES/DAY PRN COPD (Reported) Allopurinol 100 MG TABLET 1 TAB PO DAILY GOUT Aspirin (Ecotrin*) 81 MG TABLET.DR 1 TAB PO DAILY Heart Health (Reported) Budesonide/Formoterol Fumarate (Symbicort 80-4.5 Mcg Inhaler) 80 MCG-4.5 MCG/ ACTUATION HFA.AER.AD 2 PUF INH BID copd Calcitriol 1 MCG/ML AMPUL 1 MCG IV MoWeFr WITH DIALYSIS Calcium Carbonate 500 MG CALCIUM (1,250 MG) TABLET 1 TAB PO TIDAC ESRD Colchicine 0.6 MG TABLET 300 MCG PO DAILY gout Folic Acid 1 MG TABLET 1 TAB PO DAILY SUPPLEMENT (Reported) Furosemide (Lasix) 80 MG TABLET 1 TAB PO DAILY CHF (Reported) Guaifenesin (Mucinex) 600 MG TAB.ER.12H 1 TAB PO BID MUCOLYTIC Insulin Lispro (Humalog) 100 UNIT/ML VIAL diabetes (Reported) Blood sugar Insulin dose < 80mg/dl No dose 80-150 mg/dl no dose 151-200mg/dl 1 unit 201-250mg/dl 2 units 251-300mg/dl 3 units 301-350mg/dl 4 units 351-400mg/dl 6 units 351-400mg/dl 6 units > 400 8 call MD PLEASE RESUME ON MonDec 151-200 0 Isosorbide Mononitrate (Isosorbide Mononitrate ER) 60 MG TAB.ER.24H 1 TAB PO DAILY HTN (Reported) Loratadine (Claritin) 10 MG TABLET 1 TAB PO DAILY NASAL CONGESTION Metoprolol Tartrate (Lopressor) 50 MG TABLET 1 TAB PO BID HTN (Reported) Mometasone Furoate (Nasonex) 50 MCG SPRAY.PUMP 2 SPRAY NASB DAILY NASAL CONGESTION Omeprazole 20 MG CAPSULE.DR 1 CAP PO DAILY GERD (Reported) Simvastatin (Zocor*) 20 MG TABLET 1 TAB PO QPM Cholesterol (Reported) Warfarin Sodium (Coumadin) 5 MG TABLET 0.5-1 TAB PO AD BLOOD THINNER ( Reported) please dose Coumadin as per INR. 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 Psychosocial History Who Do You Live With? self Services at Home: None Primary Language: Bahraini ETOH Use: denies use Illicit Drug Use: denies illicit drug use Functional Ability ADLs Independent: dressing, eating, toileting, bathing. Ambulation: independent IADLs Independent: shopping, housework, finances, food prep, telephone, transportation , medication admin. Review of Systems Review of Systems: Constitutional: No fever, sweats or weight loss ENMT: No sore throat Cardiovascular: No chest pain, palpitations or leg swelling Respiratory: No shortness of breath, cough, or sputum or dyspnea on exertion GI: No GERD or bleeding per rectum : No dysuria or hematuria Musculoskeletal: No new muscle weakness, bone or joint pain Skin / Breast: No jaundice, rashes or itching Psychiatric: No history of drug or alcohol abuse no depression or anxiety Hematologic / lymphatic system: No problems with excessive bleeding, bruising, or blood clots Exam & Diagnostic Data Vital Signs and I&O I reviewed Vital Signs Date Time Temp Pulse Resp B/P Pulse O2 O2 Flow FiO2 Ox Delivery Rate 01/27 2343 65 18 143/94 94 Room Air 01/27 2213 97.0 68 17 122/60 94 Room Air 01/27 1958 95 Room Air 01/27 191 97.3 73 18 127/61 95 Room Air I reviewed Intake & Output 01/28 0000 01/27 0000 01/26 1600 Intake Total Output Total Balance Patient 177 lb Weight Physical Exam: Constitutional: pleasant, no acute distress, conversant Eyes: sclera anicteric ENMT: ears and nose atraumatic, moist mucous membranes, poor dentition, no lip lesions Neck: Supple, trachea is midline, no cervical or supraclavicular adenopathy and no palpable thyromegaly Cardiovascular: S1, S2, no murmurs, no peripheral edema Respiratory: clear to auscultation with normal respiratory effort and no intercostal retractions GI: abdomen soft, distended with rebound diffusely tender, more in the epigastrium, no palpable hepatosplenomegaly Extremities / lymphatics: symmetrically warm, free range of motion no peripheral edema, no cervical, supraclavicular, axillary, or inguinal adenopathy Musculoskeletal: Did not evaluate gait and station, no digital cyanosis, good muscle strength and tone no atrophy, motor grossly 5 out of 5 throughout Skin: no jaundice, no rashes warm, nondiaphoretic, no areas of erythema or induration Psychiatric: mood and affect are appropriate and alert and oriented to person place and time Last 24 Hours of Labs: I reviewed Laboratory Tests 01/28 01/27 01/27 01/27 0036 [id number] Chemistry Lactic Acid Cancelled Troponin I (<0.11 ng/ml) 0.06 Coagulation PT (9.4 - 12.5 SEC) 20.7 H INR (0.90 - 1.17) 1.98 H APTT (25 - 37 SEC) 38 H Cancelled 01/27 1950 Chemistry Sodium (137 - 145 mmol/L) 136 L Potassium (3.5 - 5.1 mmol/L) 4.5 Chloride (98 - 107 mmol/L) 102 Carbon Dioxide (22 - 30 mmol/L) 21 L Anion Gap (5 - 16) 13 BUN (9 - 20 mg/dL) 32 H Creatinine (0.7 - 1.2 mg/dL) 3.2 H Estimated GFR (>60 ml/min) 19 L BUN/Creatinine Ratio (7 - 25 %) 10.0 Glucose (65 - 99 mg/dL) 179 H Lactic Acid (0.7 - 2.1 mmol/L) 2.1 Calcium (8.4 - 10.2 mg/dL) 8.5 Total Bilirubin (0.2 - 1.3 mg/dL) 0.9 Direct Bilirubin (< 0.4 mg/dL) 0.9 H AST (17 - 59 U/L) 45 ALT (21 - 72 U/L) 20 L Alkaline Phosphatase (< 127 U/L) 96 Troponin I (<0.11 ng/ml) 0.08 Total Protein (6.3 - 8.2 g/dL) 6.4 Albumin (3.5 - 5.0 g/dL) 3.8 Globulin (1.9 - 4.2 gm/dL) 2.6 Albumin/Globulin Ratio (1.1 - 2.2 %) 1.5 Amylase (30 - 110 U/L) 90 Lipase (23 - 300 U/L) 218 Hematology CBC w Diff NO MAN DIFF REQ WBC (4.8 - 10.8 /CUMM) 9.8 RBC (4.70 - 6.10 /CUMM) 4.37 L Hgb (14.0 - 18.0 G/DL) 12.6 L Hct (42 - 52 %) 39.3 L MCV (80.0 - 94.0 FL) 89.8 MCH (27.0 - 31.0 PG) 28.7 RDW (11.5 - 14.5 %) 22.5 H Plt Count (130 - 400 /CUMM) 178 MPV (7.4 - 10.4 FL) 9.1 Gran % (42.2 - 75.2 %) 81.3 H Lymphocytes % (20.5 - 51.1 %) 9.7 L Monocytes % (1.7 - 9.3 %) 8.2 Eosinophils % (0 - 5 %) 0.5 Basophils % (0.0 - 2.0 %) 0.3 Absolute Granulocytes (1.4 - 6.5 /CUMM) 8.0 H Absolute Lymphocytes (1.2 - 3.4 /CUMM) 1.0 L Absolute Monocytes (0.10 - 0.60 /CUMM) 0.8 H Absolute Eosinophils (0.0 - 0.7 /CUMM) 0.1 Absolute Basophils (0.0 - 0.2 /CUMM) 0 PUBS MCHC (33.0 - 37.0 G/DL) 32.0 L Assessment/Plan Assessment/Plan Studies: I reviewed the CT scan on PACS myself a chest from the 15 of this month compared it to the current one there is obvious portal venous gas throughout the liver and also in the mesentery of the transverse colon and a tiny bit in the ascending colon and transverse colon is relatively dilated. Impression is mesenteric ischemia of the transverse colon, there are peritoneal signs this is an acute abdomen, exploration with possible colonic resection and colostomy is warranted because this ischemia can progress to gangrene perforation peritonitis sepsis and possibly . This has to be weighed against the patient's intrinsic risk factors given his renal failure COPD with recent exacerbation and history of congestive heart failure on review recent echo showed EF 50%. Why this happened is unclear he obviously has cardiovascular disease he had dialysis may be hypotension played a role but also may be dehydration yesterday he was nothing by mouth for some time for surgery, his INR is elevated we will get a specimen for type and cross he may need FFP. There is risk of prolonged ventilator dependency worsening cardiopulmonary function, bleeding, infection sepsis as mentioned injury to surrounding structures such as bowel and blood vessels. After explained these risks and benefits alternatives to the procedure patient wishes to proceed with the operation in the meantime we will aggressively hydrate him started empiric IV antibiotics. We also discussed the potential risks, benefits and alternatives to the procedure and surgery in general, issues that included but were not limited to, anesthetic risks hemorrhage requiring transfusion, the risk of transfusion itself, infection, heart attack, stroke, . I also explained the risk of history of smoking, affect on his recovery. Problem List: 1. Mesenteric ischemia 2. Abdominal pain 3. End-stage renal disease on hemodialysis 4. CHF (congestive heart failure) 5. COPD (chronic obstructive pulmonary disease) 6. Diabetes mellitus Consult Acknowledgment - Thank you for your consult request.
--- NOTE | 2017-01-28 02:30 | NUR ---
PREOP SCRUB, VOID, AND VITALS COMPLETED. PT CHANGED. FS COMPLETED 145.
--- NOTE | 2017-01-28 03:29 | NUR ---
FFP INFUSED AND COMPLETED. PT SENT TO OR. FALL RISK/ISOLATION BRACELET PLACED WELL RESTRICTED EXT ON LEFT ARM.
[2017-01-28 09:40] VITALS: BP 158/60
--- NOTE | 2017-01-28 11:20 | NUR ---
1100: Patient's sb/p 70s-80s per the aaliyah. Levo ordered and started at 5 mcg/min per emar. SBP improved to 90s 1115: Patient moved for XRAY and SBP jumped up to 180s-190s per A-line while Dr. Mercado present. Levo placed on hold to monitor per Dr. Mercado. To start fentanyl and continiuing to monitor B/P.
--- NOTE | 2017-01-28 11:38 | Cons- CRCU ---
General Information and HPI Consulting Request Date of Consult: 01/28/17 Requested By: surg History of Present Illness: 72-year-old ex-smoker diabetic with end-stage renal disease recently started dialysis in October also with COPD and heart disease, defibrillator pacemaker, recently admitted here with exacerbation of COPD and was dcd with recent surg for av fistula left bc who during dialysis started having some abdominal pain and asked them to stop After he came into the emergency room he was noted to have ischemic bowel. Patient was taken to the operating room. He did have a transverse colectomy and now he has to colostomies. Postsurgically he was transferred to the ICU. Patient has an A-line and a triple-lumen catheter in the internal jugular. In the intensive care he had a and transient episode of hypotension and subsequently his blood pressure is coming up now. He is on mechanical ventilator on minimal settings doing well. No other history could be obtained as patient was intubated. His past history as noted below, significant COPD, recent worsening renal function, peripheral vascular disease. Allergies/Medications Allergies: Coded Allergies: No Known Allergies (01/25/17) Home Med List: Albuterol Sulfate 0.63 MG/3 ML VIAL.NEB 1 Vial INH/SALIMA TID PRN COPD (Reported ) Albuterol Sulfate (Proventil Hfa) 90 MCG HFA.AER.AD 2 PUF INH 4 TIMES/DAY PRN COPD (Reported) Allopurinol 100 MG TABLET 1 TAB PO DAILY GOUT Aspirin (Ecotrin*) 81 MG TABLET.DR 1 TAB PO DAILY Heart Health (Reported) Budesonide/Formoterol Fumarate (Symbicort 80-4.5 Mcg Inhaler) 80 MCG-4.5 MCG/ ACTUATION HFA.AER.AD 2 PUF INH BID copd Calcitriol 1 MCG/ML AMPUL 1 MCG IV MoWeFr WITH DIALYSIS Calcium Carbonate 500 MG CALCIUM (1,250 MG) TABLET 1 TAB PO TIDAC ESRD Colchicine 0.6 MG TABLET 300 MCG PO DAILY gout Folic Acid 1 MG TABLET 1 TAB PO DAILY SUPPLEMENT (Reported) Furosemide (Lasix) 80 MG TABLET 1 TAB PO DAILY CHF (Reported) Guaifenesin (Mucinex) 600 MG TAB.ER.12H 1 TAB PO BID MUCOLYTIC Insulin Lispro (Humalog) 100 UNIT/ML VIAL diabetes (Reported) Blood sugar Insulin dose < 80mg/dl No dose 80-150 mg/dl no dose 151-200mg/dl 1 unit 201-250mg/dl 2 units 251-300mg/dl 3 units 301-350mg/dl 4 units 351-400mg/dl 6 units 351-400mg/dl 6 units > 400 8 call PLEASE RESUME ON MonDec 151-200 0 Isosorbide Mononitrate (Isosorbide Mononitrate ER) 60 MG TAB.ER.24H 1 TAB PO DAILY HTN (Reported) Loratadine (Claritin) 10 MG TABLET 1 TAB PO DAILY NASAL CONGESTION Metoprolol Tartrate (Lopressor) 50 MG TABLET 1 TAB PO BID HTN (Reported) Mometasone Furoate (Nasonex) 50 MCG SPRAY.PUMP 2 SPRAY NASB DAILY NASAL CONGESTION Omeprazole 20 MG CAPSULE.DR 1 CAP PO DAILY GERD (Reported) Simvastatin (Zocor*) 20 MG TABLET 1 TAB PO QPM Cholesterol (Reported) Warfarin Sodium (Coumadin) 5 MG TABLET 0.5-1 TAB PO AD BLOOD THINNER ( Reported) please dose Coumadin as per INR. Review of Systems Review of Systems Constitutional: Reports: see HPI. 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 Psychosocial History Who Do You Live With? self Services at Home: None Primary Language: Serbian ETOH Use: denies use Illicit Drug Use: denies illicit drug use Functional Ability ADLs Independent: dressing, eating, toileting, bathing. Ambulation: independent IADLs Independent: shopping, housework, finances, food prep, telephone, transportation , medication admin. Exam & Diagnostic Data Last 24 Hrs of Vital Signs/I&O Vital Signs Date Time Temp Pulse Resp B/P Pulse O2 O2 Flow FiO2 Ox Delivery Rate 01/28 0945 35 01/28 0329 99.4 70 22 149/65 94 Room Air 01/28 0238 98.5 64 22 136/60 95 Room Air 01/27 2343 65 18 143/94 94 Room Air 01/27 2213 97.0 68 17 122/60 94 Room Air 01/27 1958 95 Room Air 01/27 1912 97.3 73 18 127/61 95 Room Air Intake & Output 01/28 1600 01/28 0800 01/28 0000 Intake Total Output Total Balance Patient 177 lb Weight Last 48 Hrs of Labs/Satnam: Laboratory Tests 01/28/17 0036: PT 20.7 H, INR 1.98 H, APTT 38 H 01/27/17 2357: APTT Cancelled 01/27/17 2345: Troponin I 0.06 01/27/17 2228: Lactic Acid Cancelled 01/27/17 1950: Anion Gap 13, Estimated GFR 19 L, BUN/Creatinine Ratio 10.0, Glucose 179 H, Lactic Acid 2.1, Calcium 8.5, Total Bilirubin 0.9, Direct Bilirubin 0.9 H, AST 45, ALT 20 L, Alkaline Phosphatase 96, Troponin I 0.08, Total Protein 6.4, Albumin 3.8, Globulin 2.6, Albumin/Globulin Ratio 1.5, Amylase 90, Lipase 218, CBC w Diff NO MAN DIFF REQ, RBC 4.37 L, MCV 89.8, MCH 28.7, RDW 22.5 H, MPV 9.1, Gran % 81.3 H, Lymphocytes % 9.7 L, Monocytes % 8.2, Eosinophils % 0.5, Basophils % 0.3, Absolute Granulocytes 8.0 H, Absolute Lymphocytes 1.0 L, Absolute Monocytes 0.8 H, Absolute Eosinophils 0.1, Absolute Basophils 0, PUBS MCHC 32.0 L Assessment/Plan Impression/Plan: On physical exam intubated and sedated A line in place blood pressure was reading at 190 when I saw him Heart rate was 82 O2 sat 99% Vital signs otherwise as noted He was afebrile Pupils reacting extraocular movements intact Internal jugular line in place Chest decreased breath sounds on both sides with significant wheezing heard Abdomen immediate postop with 2 colostomies noted with stool in 1 No significant edema noted Patient was alert and was following commands when I saw him. IMPRESSION This is a gentleman with significant COPD, recent worsening renal failure now with end-stage renal disease on hemodialysis, paroxysmal atrial fibrillation who is on anticoagulation, chronic heart failure with preserved ejection fraction LVEF of 50%, insulin dependent diabetes probably type II, peripheral vascular disease, coronary artery disease, history of monoclonal gammaglobulin neuropathy of unknown significance, now comes in with * Acute respiratory failure postop related to significant COPD and anesthesia * Ischemic bowel with status post surgery with transverse colectomy with colostomy * Transient hypotension probably post anesthesia * Ischemic heart disease with no clinical evidence suggestive of active ischemic heart disease * Peripheral vascular disease * Diabetes insulin requiring * Paroxysmal atrial fibrillation on anticoagulation * Transient metabolic acidosis postoperatively due to ischemic bowel and other issues * Previous history of MRSA and Pseudomonas in the lower respiratory tract RECOMMENDATION * Watch CVP intravenous fluids if his CVP is less than 12 * If his blood pressure were to drop will start him on low-dose levo fed * Continue antibiotics and infectious disease consult was requested * Get sputum culture, as patient has had MRSA and pseudomonas we'll watch out for any active infection * Repeat chest x-ray * Ask surgery when it would be prudent to start heparin without any boluses as he has proximal atrial fibrillation * Repeat blood work again to evaluate metabolic acidosis * Repeat ABG * Proton pump inhibitor IV * Venodyne boots for now as his INRs to * Low-dose fentanyl * Pressure support trial wean to extubate * Watch his electrolytes * Inform renal about his admission Patient is critically ill we will follow closely total time spent 40 minutes Consult Acknowledgment - Thank you for your consult request.
--- NOTE | 2017-01-28 11:43 | RADIOLOGY REPORT ---
EXAMINATION: XR PORTABLE CHEST CLINICAL INFORMATION: Central line placement. COMPARISON: Chest portable [id number] TECHNIQUE: Portable AP view of the chest was obtained. FINDINGS: There is mild cardiomegaly with normal pulmonary vascularity. Median sternotomy sutures and mediastinal chung from previous CABG are noted. There are pacer electrodes in right atrium and right ventricle. There is right dialysis catheter with this tip in the distal SVC. A nasogastric tube is below the diaphragm in the stomach. Endotracheal tube is 5.4 cm above the yeimi. Both lungs are expanded and clear of acute process. IMPRESSION: No acute lung parenchymal process seen. Cardiomegaly with evidence of previous CABG. New endotracheal tube and nasogastric tube are in satisfactory position. Right dialysis catheter, pacer electrodes are in satisfactory position.
--- NOTE | 2017-01-28 11:58 | PN- General Surgery ---
Subjective Subjective: Patient intubated, post-operative episode of hypotension noted, no other acute post operative events noted. Patient is arousable, responding to commands, acknowledging abdominal pain. Objective Vital Signs and I&Os Vital Signs Date Time Temp Pulse Resp B/P Pulse O2 O2 Flow FiO2 Ox Delivery Rate 01/28 0945 35 01/28 0329 99.4 70 22 149/65 94 Room Air 01/28 0238 98.5 64 22 136/60 95 Room Air 01/27 2343 65 18 143/94 94 Room Air 01/27 2213 97.0 68 17 122/60 94 Room Air 01/27 1958 95 Room Air 01/27 1912 97.3 73 18 127/61 95 Room Air Intake & Output 01/28 1600 01/28 0800 01/28 0000 01/27 1600 01/27 0800 01/27 0000 Intake Total Output Total Balance Patient 177 lb Weight Physical Exam: General: Intubated, no acute distress Cardiac: irregular Pulmonary: CTA biltaerally Abdomen: Mucous fistual stoma appears viable. Colostomy site with stool and blood noted, stoma covered in stool but appears purple and slightly edematous Extremities: Moves all extremities, skin to bilatearl lower extremities warm and well perfused Assessment/Plan Assessment/Plan This is a 72 year old male with multiple comorbidities who presented to ER with complaints of abdominal pain that began while undergoing renal dialysis one day ago. He was found to have an ischemic transverse colon and was taken emergently to OR and had a resection of his transverse colon with fomation of mucous fistula and colostomy. Medical history is significant for ESRD, CHF, COPD, DM, and AFIB. Patient was subsequently taken to ICU in the immediate post operative period. Due to a difficult intubation intra-op, he remained intubated post op. He was hypotensive in the early post operative period and levophed was initiated and titrated. He was also given fentanyl for pain. -Continue to monitor cvp and bp, appreciate DR. Mercado's recommendations for pressure managment -Okay per Jess to use central line -IV fluids at low rate, 50 cc/hr, appreciate renal input -Infectious disease consult placed, continue rocephin and flagyl for one additional dose for now, will reassess abx tx when seen by ID due to MRSA and pulmonary history -COntinue to monitor stoma site, will d/w Dr. Lopez -Will discuss anticoag with Dr. Lopez Core Measures/Miscellaneous Venous Thromboembolism VTE Risk Factors: Age > 40, Surgery VTE Contraindications: No Contraindications VTE Diagnosis: No Beta Amanda Is Beta Amanda a Home Med? No Antibiotics Is Patient on Antibiotics? Yes If Yes: prophylaxis
--- NOTE | 2017-01-28 12:28 | Cons- Nephrology ---
General Information and HPI Consulting Request Date of Consult: 01/28/17 Requested By: KIKI STREET,ADALBERTO May Reason for Consult: Evaluation and management of end-stage renal disease Source of Information: old records Exam Limitations: unable to give history History of Present Illness: The patient is a 72-year-old gentleman with a history of chronic kidney disease/ end-stage renal disease on hemodialysis every Monday. He was dialyzed yesterday. He developed sharp pain midway through his treatment. He then came to the emergency room and ultimately was found to have ischemia of his transverse colon requiring a colectomy. Apparently was also a difficult intubation. That being said, he is awake alert responsive still intubated and pointing to his abdomen seeming to inquire once going on?. He follows commands. Of note, he is 2 days status post creation of a left brachiocephalic aVF. Allergies/Medications Allergies: Coded Allergies: No Known Allergies (01/25/17) Home Med List: Albuterol Sulfate 0.63 MG/3 ML VIAL.NEB 1 Vial INH/SALIMA TID PRN COPD (Reported ) Albuterol Sulfate (Proventil Hfa) 90 MCG HFA.AER.AD 2 PUF INH 4 TIMES/DAY PRN COPD (Reported) Allopurinol 100 MG TABLET 1 TAB PO DAILY GOUT Aspirin (Ecotrin*) 81 MG TABLET.DR 1 TAB PO DAILY Heart Health (Reported) Budesonide/Formoterol Fumarate (Symbicort 80-4.5 Mcg Inhaler) 80 MCG-4.5 MCG/ ACTUATION HFA.AER.AD 2 PUF INH BID copd Calcitriol 1 MCG/ML AMPUL 1 MCG IV MoWeFr WITH DIALYSIS Calcium Carbonate 500 MG CALCIUM (1,250 MG) TABLET 1 TAB PO TIDAC ESRD Colchicine 0.6 MG TABLET 300 MCG PO DAILY gout Folic Acid 1 MG TABLET 1 TAB PO DAILY SUPPLEMENT (Reported) Furosemide (Lasix) 80 MG TABLET 1 TAB PO DAILY CHF (Reported) Guaifenesin (Mucinex) 600 MG TAB.ER.12H 1 TAB PO BID MUCOLYTIC Insulin Lispro (Humalog) 100 UNIT/ML VIAL diabetes (Reported) Blood sugar Insulin dose < 80mg/dl No dose 80-150 mg/dl no dose 151-200mg/dl 1 unit 201-250mg/dl 2 units 251-300mg/dl 3 units 301-350mg/dl 4 units 351-400mg/dl 6 units 351-400mg/dl 6 units > 400 8 call PLEASE RESUME ON MonDec 151-200 0 Isosorbide Mononitrate (Isosorbide Mononitrate ER) 60 MG TAB.ER.24H 1 TAB PO DAILY HTN (Reported) Loratadine (Claritin) 10 MG TABLET 1 TAB PO DAILY NASAL CONGESTION Metoprolol Tartrate (Lopressor) 50 MG TABLET 1 TAB PO BID HTN (Reported) Mometasone Furoate (Nasonex) 50 MCG SPRAY.PUMP 2 SPRAY NASB DAILY NASAL CONGESTION Omeprazole 20 MG CAPSULE.DR 1 CAP PO DAILY GERD (Reported) Simvastatin (Zocor*) 20 MG TABLET 1 TAB PO QPM Cholesterol (Reported) Warfarin Sodium (Coumadin) 5 MG TABLET 0.5-1 TAB PO AD BLOOD THINNER ( Reported) please dose Coumadin as per INR. Current Medications: Current Medications Sig/Johnna Start time Last Medication Dose Route Stop Time Status Admin Albuterol Sulfate 3 ML TID 01/28 1600 AC 01/28 INH 1048 Calcium Carbonate 500 MG ONCE ONE 01/270 DC 01/27 PO 01/27 2301 2301 Ceftriaxone Sodium 1,000 MG DAILY 01/29 1000 AC IV 01/29 1001 Fentanyl Citrate 1,000 MCG Q24H 01/28 1030 AC 01/28 Dextrose/Water 250 ML IV 1146 Hydrocortisone 50 MG Q6 01/28 1200 AC Sodium Succinate IV Insulin Human Regular 0 Q6 01/28 1200 AC SC Metronidazole 500 MG IQ8 01/28 1600 AC N/A 1 UNIT IV 01/28 1659 Morphine Sulfate 2 MG ONCE ONE 01/28 0045 DC 01/28 IV 01/28 0046 0051 Morphine Sulfate 0 .STK-MED ONE 01/28 0042 DC .ROUTE Morphine Sulfate 2 MG ONCE ONE 01/27 2245 CAN IV 01/27 224 Morphine Sulfate 0 .STK-MED ONE 01/27 224 DC .ROUTE Norepinephrine 4 MG Q24H 01/28 1115 AC 01/28 Sodium Chloride 250 ML IV 1205 Pantoprazole Sodium 40 MG DAILY 01/28 1027 AC 01/28 IV 1202 Sodium Chloride 1,000 ML Q20H 01/28 1030 AC 01/28 IV 01/29 0629 1202 Sodium Chloride 1,000 ML BOLUS ONE 01/27 2330 DC 03/25 IV 01/28 0029 0019 Review of Systems Review of Systems: Unobtainable as he is intubated and sedated Past History Travel History Traveled to [place] past 21 day No Medical History Neurological: NONE Cardiovascular: AFIB, CAD, cardiomyopathy, hypertension, hyperlipidemia, systolic CHF, PACEMAKER/DEFIBRILLATOR Respiratory: COPD, obstructive sleep apnea Gastrointestinal: GERD, he had a bleeding polyp in November of this year coupled with a nonbleeding angiodysplasia Renal: ESRD on HD Musculoskeletal: gout Psychiatric: NONE Endocrine: diabetes Blood Disorders: anemia, MGUS Cancer(s): NONE PROVIDER ENGAGEMENT EXECUTIVE/Reproductive: NONE Surgical History Surgical History: PACEMAKER,( AICD) ILYA catheter Family History Relations & Conditions If Any: MOTHER (Lung cancer). Psychosocial History Who Do You Live With? self Services at Home: None Primary Language: Faroese ETOH Use: denies use Illicit Drug Use: denies illicit drug use Functional Ability ADLs Independent: dressing, eating, toileting, bathing. Ambulation: independent IADLs Independent: shopping, housework, finances, food prep, telephone, transportation , medication admin. Exam & Diagnostic Data Vital Signs and I&O Vital Signs Date Time Temp Pulse Resp B/P Pulse O2 O2 Flow FiO2 Ox Delivery Rate 01/28 1205 88 82/32 01/28 1053 Ventilator 35% 01/28 0945 35 01/28 0329 99.4 70 22 149/65 94 Room Air 01/28 0238 98.5 64 22 136/60 95 Room Air 01/27 2343 65 18 143/94 94 Room Air 01/27 2213 97.0 68 17 122/60 94 Room Air 01/27 1958 95 Room Air 01/27 1912 97.3 73 18 127/61 95 Room Air Intake & Output 01/28 1600 01/28 0400 01/27 1600 01/27 0400 01/26 1600 01/26 0400 Intake Total Output Total Balance Patient 177 lb Weight Physical Exam General Appearance: well developed/nourished, intubated, obese Head: atraumatic Eyes: Bilateral: PERRL, EOMI. Ears, Nose, Throat: endotracheal tube in place Neck: normal inspection, trachea mid line, right IJ Ilya catheter in place Respiratory: normal breath sounds, chest non-tender Cardiovascular: regular rate/rhythm, edema Peripheral Pulses: 2+ tibialis posterior (R), 2+ tibialis posterior (L), 2+ dorsalis pedis (R), 2+ dorsalis pedis (L) Gastrointestinal: ostomy and right upper quadrant. Review clean appearing suture line midline, no bowel sounds Extremities: normal inspection, no edema, left upper arm aVF with good bruit, I cannot feel a thrill, but the axis appears to be deep Neurologic/Psych: moving all extremities and following commands Skin: intact, no rash no jaundice Lymphatic: no anterior cervical alea Results Pertinent Lab Results: Laboratory Tests 01/28 01/28 01/27 01/27 01/27 1130 0036 2357 2345 2228 Blood Gas pH (7.35 - 7.45 PH) 7.35 pCO2 (35 - 45 TORR) 33 L pO2 (80 - 100 TORR) 75 L HCO3 (21 - 28 MEQ/L) 18 L ABG O2 Sat (Measured) (>96.0 %) 92.0 L Carboxyhemoglobin (1.5 - 5.0 %) 2.0 O2 Concentration % 35% Respiration Rate (BPM) 16 O2 Delivery Method VENT Vent Mode AC Expiratory Pressure (CMH2O/P) 5 Tidal Volume (CC) 550 Chemistry Lactic Acid Cancelled Troponin I (<0.11 ng/ml) 0.06 Coagulation PT (9.4 - 12.5 SEC) 20.7 H INR (0.90 - 1.17) 1.98 H APTT (25 - 37 SEC) 38 H Cancelled Miscellaneous Phlebotomy Draw Site [place] 01/27 1950 Chemistry Sodium (137 - 145 mmol/L) 136 L Potassium (3.5 - 5.1 mmol/L) 4.5 Chloride (98 - 107 mmol/L) 102 Carbon Dioxide (22 - 30 mmol/L) 21 L Anion Gap (5 - 16) 13 BUN (9 - 20 mg/dL) 32 H Creatinine (0.7 - 1.2 mg/dL) 3.2 H Estimated GFR (>60 ml/min) 19 L BUN/Creatinine Ratio (7 - 25 %) 10.0 Glucose (65 - 99 mg/dL) 179 H Lactic Acid (0.7 - 2.1 mmol/L) 2.1 Calcium (8.4 - 10.2 mg/dL) 8.5 Total Bilirubin (0.2 - 1.3 mg/dL) 0.9 Direct Bilirubin (< 0.4 mg/dL) 0.9 H AST (17 - 59 U/L) 45 ALT (21 - 72 U/L) 20 L Alkaline Phosphatase (< 127 U/L) 96 Troponin I (<0.11 ng/ml) 0.08 Total Protein (6.3 - 8.2 g/dL) 6.4 Albumin (3.5 - 5.0 g/dL) 3.8 Globulin (1.9 - 4.2 gm/dL) 2.6 Albumin/Globulin Ratio (1.1 - 2.2 %) 1.5 Amylase (30 - 110 U/L) 90 Lipase (23 - 300 U/L) 218 Hematology CBC w Diff NO MAN DIFF REQ WBC (4.8 - 10.8 /CUMM) 9.8 RBC (4.70 - 6.10 /CUMM) 4.37 L Hgb (14.0 - 18.0 G/DL) 12.6 L Hct (42 - 52 %) 39.3 L MCV (80.0 - 94.0 FL) 89.8 MCH (27.0 - 31.0 PG) 28.7 RDW (11.5 - 14.5 %) 22.5 H Plt Count (130 - 400 /CUMM) 178 MPV (7.4 - 10.4 FL) 9.1 Gran % (42.2 - 75.2 %) 81.3 H Lymphocytes % (20.5 - 51.1 %) 9.7 L Monocytes % (1.7 - 9.3 %) 8.2 Eosinophils % (0 - 5 %) 0.5 Basophils % (0.0 - 2.0 %) 0.3 Absolute Granulocytes (1.4 - 6.5 /CUMM) 8.0 H Absolute Lymphocytes (1.2 - 3.4 /CUMM) 1.0 L Absolute Monocytes (0.10 - 0.60 /CUMM) 0.8 H Absolute Eosinophils (0.0 - 0.7 /CUMM) 0.1 Absolute Basophils (0.0 - 0.2 /CUMM) 0 PUBS MCHC (33.0 - 37.0 G/DL) 32.0 L Assessment/Plan Assessment/Recommendations Assessment: 1. Status post resection of the transverse colon for mesenteric ischemia 2. History of cardiomyopathy 3. End-stage renal disease due for dialysis on Monday, there is no urgent need for dialysis today. With regards to the events of yesterday, he actually left 1 kg above his stated dry. 4. Coronary artery disease 5. 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 History of obstructive sleep apnea 7. COPD 8. Atrial fibrillation 9. Diabetes mellitus 10. Anemia-he was on 6000 units of Epogen as an outpatient. 11. Secondary hyperparathyroidism. He is on calcitriol 0.25 mcg IV 3 times with hemodialysis 12. 2 days status post creation of a left brachiocephalic aVF Recommendations: 1. No urgent dialytic need today. 2. Reassess in the a.m. 3. We'll plan his next scheduled dialysis for Monday.
--- NOTE | 2017-01-28 12:31 | NUR ---
0940: Patient received from PACU at this time. SAS of 2. Placed in bed. Vent connected. Patient already orally intubated per via difficult intubation per anesthesia/surgery w/ a #8 to the right at 23 cm and mechanically ventilated w/ rate of 16, tv-550, fio2 of 35%, and peep of 5. O2 sat's 98-100% As patient becomes more aroused, he is upset with the tube and wants it out. Dr. Mercado's goal is for patient to be weaned and extubated today. LCW pacer in place with AICD. HR: 80s-90s. IIF=172j-172r upon coming to the floor. Slowing went down to 110s-120s and when patient is settled and sleeping, it goes down to SBP 70s-80s, with pain, it can go up to 180s-190s. Fentanyl started at 50 mcg/hr or 12.5 mls/hr throught the white port of the Left IJ TLC placed today in the OR. Levophed on hold if patient's b/p is to drop. Map goal of 65. CVP goal of [address] Mercado. CVP is 9-11 currently connected to the brown port of the L IJ TLC. Normal saline running at 50 mls/hr through the blue port of the L IJ TLC x1 bag. RCW mayra cath in place that patient got dialysis with yesterday. RADHA AV fistula w/dressing noted placed 01/26/[address] Jackson. Strong bruit auscultated but weak thrill palpated. Bruising noted below the dressing for the AV fistula. R nares NG in place at 58 cm connected to low wall suction per ELISA Hubbard-PC w/ yellow greenish drainage. Midline abdominal incision w/ scant blood drainage. R abdomen ileostomy with brown stool and some blood. Stoma pink/red upon first assessment but continued to be covered in some bloody drainage/look dark/dusky. [place] surgical SINGLE WIRE SAW OPERATOR assessed/aware and Dr. Lopez to be in to assess. Mucous plug to L side of abdomen w/ scant bloody drainage to bag, site looks CDI. Abdomen is distended/soft, absent bowel sounds. Serra in place, placed today 01/28/17 draining scant cloudy yellow urine. Patient does not void much at baseline per renal impairment. Otherwise, patient's skin is intact. +1 lower ext edema noted. Patient is oriented to room and hospital. SAS-4. Consistently asking for the ETT to be removed. Wrist restraints ordered and applied per ADAM Hubbard C/o some discomfort to abdomen and more so with movement. Getting relief/sleeping on and off.
--- NOTE | 2017-01-28 13:55 | Cons- Infect Disease ---
General Information and HPI Consulting Request Date of Consult: 01/28/17 Requested By: KIKI STREET,ADALBERTO May Reason for Consult: Ischemic colitis status post resection Source of Information: old records Exam Limitations: unable to give history History of Present Illness: This is a 72-year-old man with a history of hypertension, CHF, atrial fibrillation, maintained on Coumadin, status post AICD, COPD, maintained on 2 L of oxygen, MGUS, diabetes and end-stage renal disease, begun on hemodialysis ( Mondays, Wednesdays and Fridays) over 3 months prior to admission via an Ilya catheter, placed in his right upper chest, with multiple recent hospitalizations , mostly for COPD exacerbation, status post creation of a left upper extremity fistula 1 day prior to admission, admitted on January 27 after the acute onset of lower abdominal pain associated with dry heaves while on dialysis. On admission he was afebrile. Laboratory data revealed a white blood cell count of 10,000, BUN/creatinine 32 and 3.2, with normal liver enzymes, INR 1.98. CT of the abdomen and pelvis revealed air in the portal vein and central mesentery and surrounding the transverse colon; a large stone in the left distal renal pelvis/ UP junction with additional smaller stones in the lower pole of the left kidney, with mild dilatation of the collecting system. He was taken to the OR for resection of his transverse colon with creation of a mucous fistula and colostomy, with Ceftriaxone and Flagyl apparently given intraoperatively. Postop he was hypotensive, requiring intermittent Levophed. He has remained afebrile since admission. He was given Fentanyl for pain but is awake and reports abdominal pain. Allergies/Medications Allergies: Coded Allergies: No Known Allergies (01/25/17) Home Med List: Albuterol Sulfate 0.63 MG/3 ML VIAL.NEB 1 Vial INH/SALIMA TID PRN COPD (Reported ) Albuterol Sulfate (Proventil Hfa) 90 MCG HFA.AER.AD 2 PUF INH 4 TIMES/DAY PRN COPD (Reported) Allopurinol 100 MG TABLET 1 TAB PO DAILY GOUT Aspirin (Ecotrin*) 81 MG TABLET.DR 1 TAB PO DAILY Heart Health (Reported) Budesonide/Formoterol Fumarate (Symbicort 80-4.5 Mcg Inhaler) 80 MCG-4.5 MCG/ ACTUATION HFA.AER.AD 2 PUF INH BID copd Calcitriol 1 MCG/ML AMPUL 1 MCG IV MoWeFr WITH DIALYSIS Calcium Carbonate 500 MG CALCIUM (1,250 MG) TABLET 1 TAB PO TIDAC ESRD Colchicine 0.6 MG TABLET 300 MCG PO DAILY gout Folic Acid 1 MG TABLET 1 TAB PO DAILY SUPPLEMENT (Reported) Furosemide (Lasix) 80 MG TABLET 1 TAB PO DAILY CHF (Reported) Guaifenesin (Mucinex) 600 MG TAB.ER.12H 1 TAB PO BID MUCOLYTIC Insulin Lispro (Humalog) 100 UNIT/ML VIAL diabetes (Reported) Blood sugar Insulin dose < 80mg/dl No dose 80-150 mg/dl no dose 151-200mg/dl 1 unit 201-250mg/dl 2 units 251-300mg/dl 3 units 301-350mg/dl 4 units 351-400mg/dl 6 units 351-400mg/dl 6 units > 400 8 call MD PLEASE RESUME ON MonDec 151-200 0 Isosorbide Mononitrate (Isosorbide Mononitrate ER) 60 MG TAB.ER.24H 1 TAB PO DAILY HTN (Reported) Loratadine (Claritin) 10 MG TABLET 1 TAB PO DAILY NASAL CONGESTION Metoprolol Tartrate (Lopressor) 50 MG TABLET 1 TAB PO BID HTN (Reported) Mometasone Furoate (Nasonex) 50 MCG SPRAY.PUMP 2 SPRAY NASB DAILY NASAL CONGESTION Omeprazole 20 MG CAPSULE.DR 1 CAP PO DAILY GERD (Reported) Simvastatin (Zocor*) 20 MG TABLET 1 TAB PO QPM Cholesterol (Reported) Warfarin Sodium (Coumadin) 5 MG TABLET 0.5-1 TAB PO AD BLOOD THINNER ( Reported) please dose Coumadin as per INR. 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 Psychosocial History Who Do You Live With? self Services at Home: None Primary Language: Lithuanian ETOH Use: denies use Illicit Drug Use: denies illicit drug use Functional Ability ADLs Independent: dressing, eating, toileting, bathing. Ambulation: independent IADLs Independent: shopping, housework, finances, food prep, telephone, transportation , medication admin. Review of Systems Review of Systems All Other Systems: Reviewed and Negative Exam & Diagnostic Data Last 24 Hrs of Vital Signs/I&O Vital Signs Date Time Temp Pulse Resp B/P Pulse O2 O2 Flow FiO2 Ox Delivery Rate 01/28 1205 88 82/32 01/28 1053 Ventilator 35% 01/28 0945 35 01/28 0329 99.4 70 22 149/65 94 Room Air 01/28 0238 98.5 64 22 136/60 95 Room Air 01/27 2343 65 18 143/94 94 Room Air 01/27 2213 97.0 68 17 122/60 94 Room Air 01/27 1958 95 Room Air 01/27 1912 97.3 73 18 127/61 95 Room Air Intake & Output 01/28 1600 01/28 0800 01/28 0000 Intake Total Output Total Balance Patient 177 lb Weight Physical Exam Other Physical Findings: He is awake and alert in no acute distress. He is afebrile. Blood pressure is in the 80s systolic, currently off pressors. Skin reveals no rash. HEENT exam is negative. Neck is supple with no adenopathy; tunneled dialysis catheter in the right upper chest with no inflammation at the site; left IJ triple-lumen catheter with no inflammation at the site. Lungs are clear. Heart regular rhythm with no murmur. Abdomen tender to minimal palpation, with mucus fistula stoma viable and colostomy with blood. Back no CVA tenderness. Extremities 1+ edema both lower extremities; left upper extremity AV fistula with bruit. Neuro is without focality. Serra catheter is in place. Last 24 Hours of Lab Results: Laboratory Tests 01/28 01/28 01/27 01/27 01/27 1130 0036 2357 2345 2228 Blood Gas pH (7.35 - 7.45 PH) 7.35 pCO2 (35 - 45 TORR) 33 L pO2 (80 - 100 TORR) 75 L HCO3 (21 - 28 MEQ/L) 18 L ABG O2 Sat (Measured) (>96.0 %) 92.0 L Carboxyhemoglobin (1.5 - 5.0 %) 2.0 O2 Concentration % 35% Respiration Rate (BPM) 16 O2 Delivery Method VENT Vent Mode AC Expiratory Pressure (CMH2O/P) 5 Tidal Volume (CC) 550 Chemistry Lactic Acid Cancelled Troponin I (<0.11 ng/ml) 0.06 Coagulation PT (9.4 - 12.5 SEC) 20.7 H INR (0.90 - 1.17) 1.98 H APTT (25 - 37 SEC) 38 H Cancelled Miscellaneous Phlebotomy Draw Site [place] 01/27 1950 Chemistry Sodium (137 - 145 mmol/L) 136 L Potassium (3.5 - 5.1 mmol/L) 4.5 Chloride (98 - 107 mmol/L) 102 Carbon Dioxide (22 - 30 mmol/L) 21 L Anion Gap (5 - 16) 13 BUN (9 - 20 mg/dL) 32 H Creatinine (0.7 - 1.2 mg/dL) 3.2 H Estimated GFR (>60 ml/min) 19 L BUN/Creatinine Ratio (7 - 25 %) 10.0 Glucose (65 - 99 mg/dL) 179 H Lactic Acid (0.7 - 2.1 mmol/L) 2.1 Calcium (8.4 - 10.2 mg/dL) 8.5 Total Bilirubin (0.2 - 1.3 mg/dL) 0.9 Direct Bilirubin (< 0.4 mg/dL) 0.9 H AST (17 - 59 U/L) 45 ALT (21 - 72 U/L) 20 L Alkaline Phosphatase (< 127 U/L) 96 Troponin I (<0.11 ng/ml) 0.08 Total Protein (6.3 - 8.2 g/dL) 6.4 Albumin (3.5 - 5.0 g/dL) 3.8 Globulin (1.9 - 4.2 gm/dL) 2.6 Albumin/Globulin Ratio (1.1 - 2.2 %) 1.5 Amylase (30 - 110 U/L) 90 Lipase (23 - 300 U/L) 218 Hematology CBC w Diff NO MAN DIFF REQ WBC (4.8 - 10.8 /CUMM) 9.8 RBC (4.70 - 6.10 /CUMM) 4.37 L Hgb (14.0 - 18.0 G/DL) 12.6 L Hct (42 - 52 %) 39.3 L MCV (80.0 - 94.0 FL) 89.8 MCH (27.0 - 31.0 PG) 28.7 RDW (11.5 - 14.5 %) 22.5 H Plt Count (130 - 400 /CUMM) 178 MPV (7.4 - 10.4 FL) 9.1 Gran % (42.2 - 75.2 %) 81.3 H Lymphocytes % (20.5 - 51.1 %) 9.7 L Monocytes % (1.7 - 9.3 %) 8.2 Eosinophils % (0 - 5 %) 0.5 Basophils % (0.0 - 2.0 %) 0.3 Absolute Granulocytes (1.4 - 6.5 /CUMM) 8.0 H Absolute Lymphocytes (1.2 - 3.4 /CUMM) 1.0 L Absolute Monocytes (0.10 - 0.60 /CUMM) 0.8 H Absolute Eosinophils (0.0 - 0.7 /CUMM) 0.1 Absolute Basophils (0.0 - 0.2 /CUMM) 0 PUBS MCHC (33.0 - 37.0 G/DL) 32.0 L Last 24 Hours of [place]nam Results: Urine culture January 28 pending Diagnostic Data Recent Imaging Findings: CT of the abdomen and pelvis revealed air in the portal vein and central mesentery and surrounding the transverse colon; a large stone in the left distal renal pelvis/UP junction with additional smaller stones in the lower pole of the left kidney, with mild dilatation of the collecting system. Chest x-ray January 28, personally reviewed, negative Assessment/Plan Assessment/Plan Impression: This is a 72-year-old man with atrial fibrillation, COPD, maintained on oxygen, diabetes, end-stage renal disease, maintained on hemodialysis, admitted on January 27 with the acute onset of abdominal pain, found on CT scan to have findings suggestive of ischemic bowel, now status post resection of his transverse colon with formation of a mucous fistula and colostomy. His blood pressure has been borderline since surgery, requiring intermittent Levophed, but he remains afebrile and his white blood cell count, at least on admission, was normal. He was begun on Ceftriaxone and Flagyl, which can be continued for the possibility of ongoing ischemia, but, as he has undergone resection, if he has no further evidence for ischemia, his antibiotics should be able to be discontinued. He has no evidence for any other infectious process at this time. He does has evidence of obstruction of the left kidney secondary to a large stone and he may require urologic intervention at some point. Suggestion: 1. Would remove Serra catheter 2. Urology input at some point regarding the obstruction of his left kidney 3. Can continue Ceftriaxone 1 g IV every 24 hours and Flagyl 500 mg IV every 8 hours for now Consult Acknowledgment - Thank you for your consult request.
[2017-01-28 14:10] LABS: ABSOLUTE BASOPHIL COUNT 0 /CUMM (0.0-0.2); ABSOLUTE EOSINOPHIL COUNT 0.1 /CUMM (0.0-0.7); ABSOLUTE GRANULOCYTE CT 13.6 /CUMM (1.4-6.5); ABSOLUTE LYMPH COUNT 0.6 /CUMM (1.2-3.4); ABSOLUTE MONOCYTE COUNT 1.2 /CUMM (0.10-0.60); BASOPHIL % 0.3 % (0.0-2.0); EOSINOPHIL % 0.6 % (0-5); GRANULOCYTE % 87.8 % (42.2-75.2); HEMATOCRIT 37.2 % (42-52); MEAN CORPUSCULAR HGB 28.6 PG (27.0-31.0); MEAN CORPUSCULAR HGB CONC 31.6 G/DL (33.0-37.0); MEAN CORPUSCULAR VOLUME 90.2 FL (80.0-94.0); MEAN PLATELET VOLUME 9.6 FL (7.4-10.4); PLATELET COUNT 158 /CUMM (130-400); RBC DISTRIBUTION WIDTH 22.4 % (11.5-14.5); RED BLOOD CELL CT 4.13 /CUMM (4.70-6.10)
[2017-01-28 14:25] LABS: WHITE BLOOD CELL COUNT 15.5 /CUMM (4.8-10.8)
--- NOTE | 2017-01-28 14:55 | NUR ---
1345: PATIENT'S B/P DIPPING DOWN INTO THE 70S-80S SYSTOLIC AGAIN. INFORMED DR. LEE. 500 ML BOLUS NS GIVEN INSTEAD OF RESTARTING PRESSORS AT THIS TIME. CVP=8-9 1430: BLOOD PRESSURE IMPROVING TO 90S-100S SYSTOLIC. CVP=10-11
--- NOTE | 2017-01-28 15:24 | Operative Report ---
See Addendum Operative/Inv Procedure Report Surgery Date: 01/28/17 Name of Procedure: transverse colectomy, 2 enterostomies (end colostomy and mucous fistula) Pre-Operative Diagnosis: mesenteric ischemia Post-Operative Diagnosis: gangrenous transverse colon Estimated Blood Loss: scant Surgeon/Parachute Accessories Attacher: KIKI STREET,ADALBERTO May
[2017-01-28 16:00] VITALS: BP 124/62
--- NOTE | 2017-01-28 20:23 | NUR ---
1600: OKAY'D BY KIKI TO EXTUBATE PATIENT. TRIAL STARTED PER DR. LONG. PATIENT IS AGITATED/UPSET WANTING HANDS UNTIED AND TO BE EXTUBATED. TRIAL WENT WELL, ABGS CAME OUT WNL. 1705: PATIENT EXTUBATED AND PLACE ON 3L PER MARA RT. PATIENT TOLERATED WELL. FENTANYL GTT TURNED OFF AT 1745. PATIENT IS ORIENTED X3, SLEEPY BUT DENIES PAIN AT THIS TIME. DR. TRUONG INTO SEE PATIENT. NOTED STOMAS TO BE DARK/DUSKY BUT SIMILAR TO HOW THEY APPEARED IN THE OR. CONTINUING TO MONITOR. 1800: SBP DOWN IN THE 70S-80S AGAIN. A SECOND 500ML BOLUS GIVEN WITH GOOD EFFECT. CVP 8 AT THIS TIME AND SBP COMING UP TO 110S-120S. PATIENT IS LESS ANXIOUS AND RELIEVED. RESTING COMFORTABLY. HEPARIN GTT STARTED AT [address] TRUONG'S REQUEST, PTT FOR 01/29/17 @ 0030. IRMA AGUIRRE RN GIVEN REPORT AND AWARE.
[2017-01-29] VITALS: BP 110/40
[2017-01-29 01:40] LABS: PTT 101 SEC (25-37)
--- NOTE | 2017-01-29 04:00 | NUR ---
PATIENT ALERT.MONITOR CONTINUES PACING RHYTHM WITH OCCASIONAL PVC. C/O INCISIONAL PAIN.MEDICATED WITH IV TYLENOL WITH RELIEF.MIDLINE ABDOMINAL DRESSING INTACT. ILEOSTOMY EMPTIED OF BROWN STOOL IN AMOUNT OF 40 ML. MUCOUS FISTULA DRAINING SEROSANQUINOUS DRAINAGE.
[2017-01-29 05:30] LABS: ABSOLUTE BASOPHIL COUNT 0 /CUMM (0.0-0.2); ABSOLUTE EOSINOPHIL COUNT 0 /CUMM (0.0-0.7); ABSOLUTE GRANULOCYTE CT 12.8 /CUMM (1.4-6.5); ABSOLUTE LYMPH COUNT 0.4 /CUMM (1.2-3.4); BASOPHIL % 0.1 % (0.0-2.0); EOSINOPHIL % 0 % (0-5); GRANULOCYTE % 89.5 % (42.2-75.2); HEMATOCRIT 33.3 % (42-52); MEAN CORPUSCULAR HGB 28.6 PG (27.0-31.0); MEAN CORPUSCULAR HGB CONC 31.3 G/DL (33.0-37.0); MEAN CORPUSCULAR VOLUME 91.3 FL (80.0-94.0); MEAN PLATELET VOLUME 9.3 FL (7.4-10.4); PLATELET COUNT 121 /CUMM (130-400); RBC DISTRIBUTION WIDTH 22.9 % (11.5-14.5); RED BLOOD CELL CT 3.65 /CUMM (4.70-6.10)
[2017-01-29 05:49] LABS: WHITE BLOOD CELL COUNT 14.3 /CUMM (4.8-10.8)
--- NOTE | 2017-01-29 07:06 | PN- General Surgery ---
See Addendum Subjective Subjective: Patient is now postoperative day #1 status post exploratory laparotomy with transverse colectomy and end colostomy. He was extubated a few hours postoperatively and remains in the ICU for continuous monitoring. At this time, patient has no major complaints. No need for pressors currently. He denies significant pain. He is eager to improve and progress. He denies nausea or vomiting. NG tube, Serra catheter, arterial line, and left IJ triple lumen remain in place. Objective Vital Signs and I&Os Vital Signs Date Time Temp Pulse Resp B/P Pulse O2 O2 Flow FiO2 Ox Delivery Rate 01/29 0400 99 Nasal 3.0L Cannula 01/29 0000 99.5 84 18 110/40 6 Nasal 3.0L Cannula 01/29 0000 96 Nasal 3.0L Cannula 01/29 2052 97 Nasal 3.0L Cannula 01/29 2000 98 Nasal 3.0L Cannula 01/28 1600 35 01/28 1600 98 Ventilator 35% 01/28 1600 97.0 86 19 124/62 95 Ventilator 35% 01/28 1416 35 01/28 1205 88 82/32 01/28 1053 Ventilator 35% 01/28 0945 35 01/28 0940 98.9 87 16 158/60 100 Ventilator 30% Intake & Output 01/29 1600 01/29 0800 01/29 0000 01/28 1600 01/28 0800 01/28 0000 Intake Total 531 1322 401 Output Total 150 100 220 Balance 381 1222 181 Intake, IV 531 1322 401 Output, 10 Drainage Output, 100 120 Gastric Drainage Output, Stool 40 Output, Urine 100 100 Patient 177 lb Weight Physical Exam: Gen.: Patient is awake and alert. He is in no acute distress and is cooperative verbalizing well. Cardiac: Regular Pulmonary: Coarse breath sounds are heard bilaterally. Abdomen: Soft and moderately distended. Though right lower quadrant colostomy is retracted and dark, with a small amount of stool noted in the bag. There is not a large amount of air here at this time. The mucous fistula in the left lower quadrant remains pink and viable. Hypoactive bowel sounds are heard. Results Last 48 Hours of Labs: Laboratory Tests 01/29 01/29 01/28 0400 0045 2200 Blood Gas pH (7.35 - 7.45 PH) 7.27 *L pCO2 (35 - 45 TORR) 40 pO2 (80 - 100 TORR) 108 H HCO3 (21 - 28 MEQ/L) 18 L ABG O2 Sat (Measured) (>96.0 %) 96.0 P-50 (Temp Corrected) N Carboxyhemoglobin (1.5 - 5.0 %) 1.2 L O2 Concentration % 3L Temperature (97.0 - 100.0 FARH) 98.0 O2 Delivery Method NC Chemistry Sodium (137 - 145 mmol/L) 138 Potassium (3.5 - 5.1 mmol/L) 4.3 Chloride (98 - 107 mmol/L) 108 H Carbon Dioxide (22 - 30 mmol/L) 18 L Anion Gap (5 - 16) 12 BUN (9 - 20 mg/dL) 44 H Creatinine (0.7 - 1.2 mg/dL) 4.8 H Estimated GFR (>60 ml/min) 12 L Glucose (65 - 99 mg/dL) 161 H Calcium (8.4 - 10.2 mg/dL) 7.9 L Phosphorus (2.5 - 4.5 mg/dL) 5.4 H Magnesium (1.6 - 2.3 mg/dL) 2.0 Total Bilirubin (0.2 - 1.3 mg/dL) 0.4 AST (17 - 59 U/L) 21 ALT (21 - 72 U/L) 28 Albumin (3.5 - 5.0 g/dL) 2.5 L Coagulation PT (9.4 - 12.5 SEC) 19.0 H INR (0.90 - 1.17) 1.82 H APTT (25 - 37 SEC) 101 *H Hematology CBC w Diff NO MAN DIFF REQ WBC (4.8 - 10.8 /CUMM) 14.3 H RBC (4.70 - 6.10 /CUMM) 3.65 L Hgb (14.0 - 18.0 G/DL) 10.4 L Hct (42 - 52 %) 33.3 L MCV (80.0 - 94.0 FL) 91.3 MCH (27.0 - 31.0 PG) 28.6 RDW (11.5 - 14.5 %) 22.9 H Plt Count (130 - 400 /CUMM) 121 L MPV (7.4 - 10.4 FL) 9.3 Gran % (42.2 - 75.2 %) 89.5 H Lymphocytes % (20.5 - 51.1 %) 3.1 L Monocytes % (1.7 - 9.3 %) 7.3 Eosinophils % (0 - 5 %) 0 Basophils % (0.0 - 2.0 %) 0.1 Absolute Granulocytes (1.4 - 6.5 /CUMM) 12.8 H Absolute Lymphocytes (1.2 - 3.4 /CUMM) 0.4 L Absolute Monocytes (0.10 - 0.60 /CUMM) 1.0 H Absolute Eosinophils (0.0 - 0.7 /CUMM) 0 Absolute Basophils (0.0 - 0.2 /CUMM) 0 PUBS MCHC (33.0 - 37.0 G/DL) 31.3 L Miscellaneous Phlebotomy Draw Site [place] 01/28 01/28 01/28 1645 1130 1100 Blood Gas pH (7.35 - 7.45 PH) 7.35 7.35 pCO2 (35 - 45 TORR) 32 L 33 L pO2 (80 - 100 TORR) 125 H 75 L HCO3 (21 - 28 MEQ/L) 17 L 18 L ABG O2 Sat (Measured) (>96.0 %) 96.0 92.0 L P-50 (Temp Corrected) M Carboxyhemoglobin (1.5 - 5.0 %) 1.4 L 2.0 O2 Concentration % 35 35% Temperature (97.0 - 100.0 FARH) 97.0 Respiration Rate (BPM) 16 O2 Delivery Method VENT VENT Vent Mode CPAP AC Expiratory Pressure (CMH2O/P) 5 5 Tidal Volume (CC) 550 Pressure Support (CMH2O/P) 6 Chemistry Sodium (137 - 145 mmol/L) 137 Potassium (3.5 - 5.1 mmol/L) 3.8 Chloride (98 - 107 mmol/L) 108 H Carbon Dioxide (22 - 30 mmol/L) 17 L Anion Gap (5 - 16) 13 BUN (9 - 20 mg/dL) 36 H Creatinine (0.7 - 1.2 mg/dL) 3.9 H Estimated GFR (>60 ml/min) 15 L Glucose (65 - 99 mg/dL) 167 H Calcium (8.4 - 10.2 mg/dL) 7.9 L Phosphorus (2.5 - 4.5 mg/dL) 4.3 Magnesium (1.6 - 2.3 mg/dL) 1.4 L Total Bilirubin (0.2 - 1.3 mg/dL) 0.5 AST (17 - 59 U/L) 17 ALT (21 - 72 U/L) 22 Albumin (3.5 - 5.0 g/dL) 2.8 L Hematology CBC w Diff MAN DIFF ORDERED WBC (4.8 - 10.8 /CUMM) 15.5 H RBC (4.70 - 6.10 /CUMM) 4.13 L Hgb (14.0 - 18.0 G/DL) 11.8 L Hct (42 - 52 %) 37.2 L MCV (80.0 - 94.0 FL) 90.2 MCH (27.0 - 31.0 PG) 28.6 RDW (11.5 - 14.5 %) 22.4 H Plt Count (130 - 400 /CUMM) 158 MPV (7.4 - 10.4 FL) 9.6 Gran % (42.2 - 75.2 %) 87.8 H Lymphocytes % (20.5 - 51.1 %) 3.9 L Monocytes % (1.7 - 9.3 %) 7.4 Eosinophils % (0 - 5 %) 0.6 Basophils % (0.0 - 2.0 %) 0.3 Absolute Granulocytes (1.4 - 6.5 /CUMM) 13.6 H Segmented Neutrophils (42.2 - 75.2 %) 75 Band Neutrophils (0.0 - 5.0 %) 18 H Absolute Lymphocytes (1.2 - 3.4 /CUMM) 0.6 L Lymphocytes (20.5 - 51.1 %) 1 L Monocytes (1.7 - 9.3 %) 6 Absolute Monocytes (0.10 - 0.60 /CUMM) 1.2 H Absolute Eosinophils (0.0 - 0.7 /CUMM) 0.1 Absolute Basophils (0.0 - 0.2 /CUMM) 0 Polychromasia 1+ Poikilocytosis 1+ Anisocytosis 2+ PUBS MCHC (33.0 - 37.0 G/DL) 31.6 L Miscellaneous Phlebotomy Draw Site [place] 01/28 01/27 01/27 01/27 0036 4155 3265 2226 Chemistry Lactic Acid Cancelled Troponin I (<0.11 ng/ml) 0.06 Coagulation PT (9.4 - 12.5 SEC) 20.7 H INR (0.90 - 1.17) 1.98 H APTT (25 - 37 SEC) 38 H Cancelled 01/27 1950 Chemistry Sodium (137 - 145 mmol/L) 136 L Potassium (3.5 - 5.1 mmol/L) 4.5 Chloride (98 - 107 mmol/L) 102 Carbon Dioxide (22 - 30 mmol/L) 21 L Anion Gap (5 - 16) 13 BUN (9 - 20 mg/dL) 32 H Creatinine (0.7 - 1.2 mg/dL) 3.2 H Estimated GFR (>60 ml/min) 19 L BUN/Creatinine Ratio (7 - 25 %) 10.0 Glucose (65 - 99 mg/dL) 179 H Lactic Acid (0.7 - 2.1 mmol/L) 2.1 Calcium (8.4 - 10.2 mg/dL) 8.5 Total Bilirubin (0.2 - 1.3 mg/dL) 0.9 Direct Bilirubin (< 0.4 mg/dL) 0.9 H AST (17 - 59 U/L) 45 ALT (21 - 72 U/L) 20 L Alkaline Phosphatase (< 127 U/L) 96 Troponin I (<0.11 ng/ml) 0.08 Total Protein (6.3 - 8.2 g/dL) 6.4 Albumin (3.5 - 5.0 g/dL) 3.8 Globulin (1.9 - 4.2 gm/dL) 2.6 Albumin/Globulin Ratio (1.1 - 2.2 %) 1.5 Amylase (30 - 110 U/L) 90 Lipase (23 - 300 U/L) 218 Hematology CBC w Diff NO MAN DIFF REQ WBC (4.8 - 10.8 /CUMM) 9.8 RBC (4.70 - 6.10 /CUMM) 4.37 L Hgb (14.0 - 18.0 G/DL) 12.6 L Hct (42 - 52 %) 39.3 L MCV (80.0 - 94.0 FL) 89.8 MCH (27.0 - 31.0 PG) 28.7 RDW (11.5 - 14.5 %) 22.5 H Plt Count (130 - 400 /CUMM) 178 MPV (7.4 - 10.4 FL) 9.1 Gran % (42.2 - 75.2 %) 81.3 H Lymphocytes % (20.5 - 51.1 %) 9.7 L Monocytes % (1.7 - 9.3 %) 8.2 Eosinophils % (0 - 5 %) 0.5 Basophils % (0.0 - 2.0 %) 0.3 Absolute Granulocytes (1.4 - 6.5 /CUMM) 8.0 H Absolute Lymphocytes (1.2 - 3.4 /CUMM) 1.0 L Absolute Monocytes (0.10 - 0.60 /CUMM) 0.8 H Absolute Eosinophils (0.0 - 0.7 /CUMM) 0.1 Absolute Basophils (0.0 - 0.2 /CUMM) 0 PUBS MCHC (33.0 - 37.0 G/DL) 32.0 L Assessment/Plan Assessment/Plan Patient is a 72-year-old male who is now postoperative day #1 status post exploratory laparotomy for acute abdomen, with subsequent transverse colectomy and end colostomy due to ischemic bowel. Plan: -Continue nothing by mouth with NG tube. -Continue to monitor colostomy, as it is displaying some signs of ischemia. Attending is aware. -Pain control with low dose morphine and Tylenol as needed. -Heparin drip has been resumed for A. fib. This should also be adequate for DVT prophylaxis. -Continue IV antibiotics. -Continue medical management per critical care team. -Appreciate nephrology and ID input. -Will discuss with attending.
[2017-01-29 08:00] VITALS: BP 102/60
[2017-01-29 08:45] LABS: PTT 79 SEC (25-37)
--- NOTE | 2017-01-29 08:48 | NUR ---
0800: RECEIVED PT IN BED. A+OX3. ON 3L NC, RHONCHI NOTED THROUGHOUT. PT UNABLE TO COUGH DUE TO PAIN IN ABDOMEN, PT GIVEN PILLOW TO HOLD ON ABDOMEN, ATTEMPTED TO COUGH TO BRING UP SPUTUM WITH NO SUCCESS. DENIES SOB. PACED ON MONITOR WITH PVC'S. MANUAL B/P 102/60, RT RADIAL ART LINE ZEROED, ART B/P 120/32, AUTO CUFF 105/77. CVP 14, ZEROED. NPO. ABDOMEN SOFT, TENDER. MIDLINE SURGICAL INCISION, DRESSING IN PLACE WITH OLD BLOODY DRAINAGE, OUTLINED. HYPOACTIVE BOWEL SOUNDS. RIGHT ABDOMEN OSTOMY, BROWN LIQUID OUTPUT, SCANT. LEFT ABDOMEN OSTOMY, SS OUTPUT. RIGHT NARE NGT AT 55CM TO LOW WALL SUCTION, OUTPUT CLEAR/STEVENSON. PT DOES NOT VOID. RCW SALMA CATH IN PLACE FOR DIALYSIS --. LEFT AV FISTULA +THRILL +BRUIT, PLACED 01/26. LEFT ARM SWOLLEN, ELEVATED ON PILLOWS. DIMINISHED PEDAL PULSES. PT REQUESTING ALPS BE REMOVED AT THIS TIME. LIJ TLC IN PLACE WITH NS @ 50ML X 1L RUNNING. HEPARIN GTT RUNNING AT 22.7ML/HR OR 14 U/KG/HR. PTT DRAWN AT 0800 BY THIS RN. ON CONTACT PRECAUTIONS FOR +MRSA IN SPUTUM. RT AT BEDSIDE, DEEP SUCTIONED PT FOR BLOODY SPUTUM. WILL MONITOR.
--- NOTE | 2017-01-29 08:57 | NUR ---
PTT 79, NO CHANGES MADE, THERAPEUTIC. NEXT PTT 3-26 AT 1999.
--- NOTE | 2017-01-29 09:54 | PN- CRCU ---
Subjective HPI/Critical Care Issues: Patient is now postoperative day #1 status post exploratory laparotomy with transverse colectomy and end colostomy. He was extubated a few hours postoperatively and remains in the ICU for continuous monitoring. At this time, patient has no major complaints. No need for pressors currently. He denies significant pain. He is eager to improve and progress. He denies nausea or vomiting. NG tube, Serra catheter, arterial line, and left IJ triple lumen remain in place. Review of symptoms otherwise unremarkable patient was comfortable was complaining of some sputum Objective Current Medications: Current Medications Sig/Johnna Start time Last Medication Dose Route Stop Time Status Admin Acetaminophen 1,000 MG Q6P PRN 01/28 1730 AC 01/29 N/A 1 UNIT IV 0359 Albuterol Sulfate 3 ML TID 01/28 1600 AC 01/29 INH 0822 Ceftriaxone Sodium 1,000 MG DAILY 01/29 1000 CAN IV 01/29 1001 Ceftriaxone Sodium 2,000 MG DAILY 01/29 1000 CAN IV Ceftriaxone Sodium 1,000 MG DAILY 01/29 1000 AC IV Fentanyl Citrate 1,000 MCG Q24H 01/28 1030 AC 01/28 Dextrose/Water 250 ML IV 1146 Heparin Sodium 25,000 UNIT Q24H 01/28 1800 AC 01/28 (Porcine) IV 1829 Sodium Chloride 500 ML Hydrocortisone 50 MG Q6 01/28 1200 AC 01/29 Sodium Succinate IV 0600 Insulin Human Regular 0 Q6 01/28 1200 AC 01/29 SC 0600 Magnesium Sulfate 1 GM Q2H 01/28 1630 DC 01/28 Dextrose/Water 100 ML IV 01/28 2029 1859 Metronidazole 500 MG IQ8 01/28 1600 CAN N/A 1 UNIT IV 01/28 1659 Metronidazole 500 MG IQ8 01/28 1600 CAN N/A 1 UNIT IV Metronidazole 500 MG IQ8 01/28 1600 AC 01/29 N/A 1 UNIT IV 0835 Morphine Sulfate 2 MG Q2P PRN 01/28 1730 AC 01/29 IV 0836 Norepinephrine 4 MG Q24H 01/28 1115 AC 01/28 Sodium Chloride 250 ML IV 1205 Norepinephrine 4 MG .STK-MED ONE 01/28 1059 DC IV 01/28 1100 Pantoprazole Sodium 40 MG DAILY 01/28 1027 AC 01/28 IV 1202 Sodium Chloride 500 ML BOLUS ONE 01/28 1815 DC 01/28 IV 01/28 1914 1827 Sodium Chloride 500 ML BOLUS ONE 01/28 1400 DC 01/28 IV 01/28 1459 1400 Sodium Chloride 1,000 ML Q20H 01/28 1030 DC 01/28 IV 01/29 0629 1202 Vital Signs & I&O Last 24 Hrs of Vitals and I&O: Vital Signs Date Time Temp Pulse Resp B/P Pulse O2 O2 Flow FiO2 Ox Delivery Rate 01/29 0829 96 Nasal 3.0L Cannula 01/29 0400 99 Nasal 3.0L Cannula 01/29 0000 99.5 84 18 110/40 6 Nasal 3.0L Cannula 01/29 0000 96 Nasal 3.0L Cannula 01/29 2052 97 Nasal 3.0L Cannula 01/29 2000 98 Nasal 3.0L Cannula 01/28 1600 35 01/28 1600 98 Ventilator 35% 01/28 1600 97.0 86 19 124/62 95 Ventilator 35% 01/28 1416 35 01/28 1205 88 82/32 01/28 1053 Ventilator 35% Intake & Output 01/29 1600 01/29 0800 01/29 0000 Intake Total 531 1322 Output Total 150 100 Balance 381 1222 Intake, IV 531 1322 Output, 10 Drainage Output, 100 Gastric Drainage Output, Stool 40 Output, Urine 100 Impression/Plan Impression/Plan Impression/Plan: On physical exam intubated and sedated A line in place Heart rate was 82 O2 sat 99% on 3 L Vital signs otherwise as noted He was afebrile Pupils reacting extraocular movements intact Internal jugular line in place Chest decreased breath sounds on both sides with mild wheezing heard Abdomen immediate postop with 2 colostomies noted with stool in 1 No significant edema noted Patient was alert and was following commands SIGNIFICANT DATA Cultures so far negative Chest x-ray done yesterday showed no acute infiltrates Creatinine was elevated patient is on dialysis anion gap this morning is 12 lactic acid upon admission was 2.1 his phosphorus is elevated troponin upon admission with normal white count down to 14.3 hemoglobin at 10.4 platelets 121 which has been running low in the recent past patient had 18% segs yesterday IMPRESSION This is a gentleman with significant COPD, recent worsening renal failure now with end-stage renal disease on hemodialysis, paroxysmal atrial fibrillation who is on anticoagulation, chronic heart failure with preserved ejection fraction LVEF of 50%, insulin dependent diabetes probably type II, peripheral vascular disease, coronary artery disease, history of monoclonal gammaglobulin neuropathy of unknown significance, now comes in with * Ischemic bowel with status post surgery with transverse colectomy with colostomy * Transient hypotension probably post anesthesia * Significant COPD with previous multiple pneumonias now with mild wheezing * Ischemic heart disease with no clinical evidence suggestive of active ischemic heart disease * Peripheral vascular disease * Diabetes insulin requiring * Paroxysmal atrial fibrillation on anticoagulation * Transient metabolic acidosis postoperatively due to ischemic bowel and other issues * Previous history of MRSA and Pseudomonas in the lower respiratory tract * Left renal obstruction need to urology in the future RECOMMENDATION * Watch CVP intravenous fluids if his CVP is less than 12 * Changes IV fluids to D5 normal saline * Antibiotics per ID * Repeat chest x-ray , in a.m. * Continue heparin, proton pump inhibitor * Renal is already involved, probable dialysis on Monday * Call urology consult tomorrow to evaluate the obstructed left kidney Patient still has multiple issues should remain in ICU today total time spent 36 minutes
--- NOTE | 2017-01-29 10:13 | PN- Resident CRCU ---
Subjective HPI/CRCU Issues: Patient seen and examined this am, was lying in bed in no acute distress. Patient is now postoperative day #1 status post exploratory laparotomy with transverse colectomy and colostomy. NG tube, Serra catheter, arterial line, and left IJ triple lumen remain in place. Tmax of 99.5F, other vitals within normal limits Remains on heparin drip for afib. Remains on ceftriaxone and D5W-NS at 75ml/hr. Pain control adequate 24 Hour Events: Paced rythm Objective Vital Signs & I&O Last 8 Hrs of Vitals and I&O: Laboratory Tests 01/29/17 0815: APTT 79 H 01/29/17 0400: Anion Gap 12, Estimated GFR 12 L, Glucose 161 H, Calcium 7.9 L, Phosphorus 5.4 H, Magnesium 2.0, Total Bilirubin 0.4, AST 21, ALT 28, Albumin 2.5 L, PT 19.0 H, INR 1.82 H, CBC w Diff NO MAN DIFF REQ, RBC 3.65 L, MCV 91.3, MCH 28.6, RDW 22.9 H, MPV 9.3, Gran % 89.5 H, Lymphocytes % 3.1 L, Monocytes % 7.3, Eosinophils % 0, Basophils % 0.1, Absolute Granulocytes 12.8 H, Absolute Lymphocytes 0.4 L, Absolute Monocytes 1.0 H, Absolute Eosinophils 0, Absolute Basophils 0, PUBS MCHC 31.3 L 01/29/17 0045: APTT 101 *H 01/28/17 2200: pH 7.27 *L, pCO2 40, pO2 108 H, HCO3 18 L, ABG O2 Sat (Measured) 96.0, P-50 ( Temp Corrected) N, Carboxyhemoglobin 1.2 L, O2 Concentration % 3L, Temperature 98.0, O2 Delivery Method NC, Phlebotomy Draw Site [place] 01/28/17 1645: pH 7.35, pCO2 32 L, pO2 125 H, HCO3 17 L, ABG O2 Sat (Measured) 96.0, P-50 ( Temp Corrected) M, Carboxyhemoglobin 1.4 L, O2 Concentration % 35, Temperature 97.0, O2 Delivery Method VENT, Vent Mode CPAP, Expiratory Pressure 5, Pressure Support 6, Phlebotomy Draw Site [place] Microbiology 01/28 1415 LOWER RESP: Respiratory Culture - RES 01/28 1415 LOWER RESP: Gram Stain - RES Vital Signs Date Time Temp Pulse Resp B/P Pulse O2 O2 Flow FiO2 Ox Delivery Rate 01/29 0829 96 Nasal 3.0L Cannula 01/29 0400 99 Nasal 3.0L Cannula 01/29 0000 99.5 84 18 110/40 6 Nasal 3.0L Cannula 01/29 0000 96 Nasal 3.0L Cannula 01/29 2052 97 Nasal 3.0L Cannula 01/29 2000 98 Nasal 3.0L Cannula 01/28 1600 35 01/28 1600 98 Ventilator 35% 01/28 1600 97.0 86 19 124/62 95 Ventilator 35% 01/28 1416 35 01/28 1205 88 82/32 Intake & Output 01/29 1600 01/29 0800 01/29 0000 Intake Total 531 1322 Output Total 150 100 Balance 381 1222 Intake, IV 531 1322 Output, 10 Drainage Output, 100 Gastric Drainage Output, Stool 40 Output, Urine 100 Exam General Appearance: well developed/nourished, no apparent distress, alert, awake Head: atraumatic, normal appearance Respiratory: decreased breath sounds b/l in lower lung zones Cardiovascular: regular rate/rhythm Gastrointestinal: normal bowel sounds, soft, non-tender, colostomy bag site clear Extremities: normal inspection Weaning Parameters NIF: 41 Minute Volume: 9.45 Resp rate: 27 Vt: 350 Heart Rate: 76 Weaning Schedule Start Time: 1605 Minute Volume: 11.1 Resp Rate: 28 Vt: 400 Heart Rate: 82 End Time: 1705 Minute Volume: 7.84 Resp Rate: 26 Vt: 315 Heart Rate: 74 Current Medications: Current Medications Sig/Johnna Start time Last Medication Dose Route Stop Time Status Admin Acetaminophen 1,000 MG .STK-MED ONE 01/30 0418 DC IV 01/30 0419 Acetaminophen 1,000 MG Q6P PRN 01/28 1730 AC 01/30 N/A 1 UNIT IV 1203 Albuterol Sulfate 3 ML TID 01/28 1600 AC 01/30 INH 1404 Calcitriol 0.25 MCG MoWeFr PRN 01/30 0815 AC IV Ceftriaxone Sodium 1,000 MG DAILY 01/29 1000 DC 01/30 IV 0856 Dextrose/Sodium 1,000 ML Q13H 01/29 1130 AC 01/30 Chloride IV 1252 Epoetin Guzman 4,000 UNIT MoWeFr PRN 01/30 0815 AC IV Heparin Sodium 25,000 UNIT Q24H 01/28 1800 AC 01/29 (Porcine) IV 1550 Sodium Chloride 500 ML Hydrocortisone 50 MG Q6 01/28 1200 DC 01/30 Sodium Succinate IV 0634 Insulin Human Regular 6 UNITS .STK-MED ONE 01/29 1823 DC IV 01/29 1824 Insulin Human Regular 0 Q6 01/28 1200 AC 01/30 SC 1149 Metronidazole 500 MG IQ8 01/28 1600 DC 01/30 N/A 1 UNIT IV 0747 Morphine Sulfate 2 MG Q2P PRN 01/28 1730 AC 01/29 IV 0836 Pantoprazole Sodium 40 MG DAILY 01/28 1027 AC 01/30 IV 0856 Impression/Plan Impression/Problem List Impression: This is a gentleman with significant COPD, recent worsening renal failure now with end-stage renal disease on hemodialysis, paroxysmal atrial fibrillation who is on anticoagulation, chronic heart failure with preserved ejection fraction LVEF of 50%, insulin dependent diabetes probably type II, peripheral vascular disease, coronary artery disease, history of monoclonal gammaglobulin neuropathy of unknown significance, now comes in with acute onset of lower abdominal pain associated with dry heaves while on dialysis. CT abdomen shoed evidence of Portal venous air as well as air in the central mesentery and surrounding the transverse colon, likely bowel ichemia He underwent exploratory laparotomy with transverse colectomy and end colostomy, was admitted to ICU for continous monitroring. We are currently monitoring him for following conditions: Gastrointestinal: S/P exploratory laparotomy with transverse colectomy and end colostomy for ischemic bowel: D#1 NPO, NG tube in place and draining, pain adequately controlled, remains of ceftriaxone and ceftriaxone , IV D5-1/2NS at 75ml/hr. will keep monitoring fever, white count, surgery on bopard will f/u recs. Renal: ESRD on Dialysis MWF nephro on board, next dialysis on . Urology consult tomoro for left renal obstruction. Respiratory: Hx of COPD: currenlty on 2L of [place] oxygen, satting well around mid 90s. CXR in AM, Patient was wheezy and had productive cough, please f/u cxry [place] (Previous history of MRSA and Pseudomonas in the lower respiratory tract) cont TRC/Nebs Heamtology: Anemia: likely 2/2 to ESRD, H&h low but stable, cont monitoring CVS: History of Afib: Currently on IV heparin, coumadin on hold. Metabolic: diabetes mellitus: ISS, finger stick glucose, HBa1c Ailmentary: patient NPO for now, will adv per surgery recs Patient is full code. Problem List: 1. Mesenteric ischemia 2. Diabetes mellitus Pain Ratin Tomorrow's Labs & Rationales: icu bundle cbc Plan DVT/Prophylaxis: mechanical, pharmacological
--- NOTE | 2017-01-29 10:35 | RADIOLOGY REPORT ---
EXAMINATION: XR PORTABLE CHEST CLINICAL INFORMATION: Central line placement COMPARISON: 01/28/2017. TECHNIQUE: Portable portable AP 60 degrees upright view of the chest was obtained. FINDINGS: Right jugular dialysis line tip is not clearly seen on this exam. Left jugular line extends to the level of the upper SVC. Enteric tube tip is not visualized. The cardiac silhouette is enlarged with median sternotomy wires. Left pectoral ICD has leads overlying the right atrium, right ventricle and coronary sinus. The right lung is clear. The left lung volume appears slightly decreased and the left lower lobe is obscured by the overlying cardiac silhouette. IMPRESSION: Limited visualization of the tubes and lines as above. No focal consolidation or atelectasis is seen. The left lung base is obscured by the overlying cardiac silhouette.
[2017-01-29 12:00] VITALS: BP 102/56
[2017-01-29 16:00] VITALS: BP 122/48
[2017-01-29 22:36] LABS: PTT 71 SEC (25-37)
[2017-01-30] VITALS: BP 124/76
--- NOTE | 2017-01-30 | NUR ---
PATIENT ALERT.DENIES PAIN.MONITOR PACING RHYTHM WITH OCCASIONAL PVCS.BP STABLE AT 124/76 VIA R RADIAL JANINA.CVP=12.IVF AT 75 ML/HR. HEPARIN DRIP CONTINUES AT 22.7 ML/HR.NGT TO LOW WALL SUCTION,DRAINING STEVENSNO SECRETIONS. MIDLINE ABDOMINAL DRESSING WITH OLD DRAINAGE.COLOSTOMY DRAINING BROWN STOOL,MUCOUS DRAINING SEROSANQUINOUS.
[2017-01-30 05:03] LABS: ABSOLUTE BASOPHIL COUNT 0 /CUMM (0.0-0.2); ABSOLUTE EOSINOPHIL COUNT 0 /CUMM (0.0-0.7); ABSOLUTE LYMPH COUNT 0.3 /CUMM (1.2-3.4); ABSOLUTE MONOCYTE COUNT 0.8 /CUMM (0.10-0.60); BASOPHIL % 0 % (0.0-2.0); EOSINOPHIL % 0.4 % (0-5); HEMATOCRIT 33.5 % (42-52); MEAN CORPUSCULAR HGB 28.7 PG (27.0-31.0); MEAN CORPUSCULAR HGB CONC 31.4 G/DL (33.0-37.0); MEAN CORPUSCULAR VOLUME 91.2 FL (80.0-94.0); MEAN PLATELET VOLUME 9.7 FL (7.4-10.4); PLATELET COUNT 117 /CUMM (130-400); RBC DISTRIBUTION WIDTH 23.1 % (11.5-14.5); RED BLOOD CELL CT 3.68 /CUMM (4.70-6.10); WHITE BLOOD CELL COUNT 13.1 /CUMM (4.8-10.8)
--- NOTE | 2017-01-30 06:01 | PN- General Surgery ---
See Addendum Subjective Subjective: No acute events overnight. Patient offers no major complaints this morning. He continues to ask for liquids to drink. NG tube remains in place. He is anuric and due for dialysis today. Objective Vital Signs and I&Os Vital Signs Date Time Temp Pulse Resp B/P Pulse O2 O2 Flow FiO2 Ox Delivery Rate 01/30 0000 97.6 70 18 124/76 99 Nasal 3.0L Cannula 01/30 0000 99 Nasal 3.0L Cannula 01/29 2015 96 Nasal 3.0L Cannula 01/29 1600 96 Nasal 3.0L Cannula 01/29 1600 97.2 66 20 122/48 96 Nasal 3.0L Cannula 01/29 1200 96 Nasal 3.0L Cannula 01/29 1200 97.2 64 20 102/56 100 Nasal 3.0L Cannula 01/29 0829 96 Nasal 3.0L Cannula 01/29 0800 97 Nasal 3.0L Cannula 01/29 0800 97.0 64 20 102/60 97 Nasal 3.0L Cannula Intake & Output 01/30 0800 01/30 0000 01/29 1600 01/29 0800 01/29 0000 01/28 1600 Intake Total 987 185 891 8535 401 Output Total 60 0 150 100 220 Balance 927 544 247 6236 181 Intake, IV 987 661 522 8999 401 Output, 10 Drainage Output, 50 100 120 Gastric Drainage Output, Stool 10 0 40 Output, Urine 0 100 100 Physical Exam: Gen.: Patient is awake and alert. He is in no acute distress and is cooperative verbalizing well. Cardiac: Regular Pulmonary: Coarse breath sounds are heard bilaterally. Abdomen: Soft and moderately distended, slightly increased versus yesterday. The right lower quadrant colostomy is retracted and dark, with a small amount of stool noted in the bag. 10 mL were drained yesterday. There is not a large amount of air here at this time. The mucous fistula in the left lower quadrant remains pink and viable, with a scant amount of air in the bag. Hypoactive bowel sounds are heard. Assessment/Plan Assessment/Plan Patient is a 72-year-old male who is now postoperative day #2 status post exploratory laparotomy for acute abdomen, with subsequent transverse colectomy and end colostomy due to ischemic bowel. Plan: -Continue nothing by mouth with NG tube. -Continue to monitor colostomy, as it is displaying some signs of ischemia. Attending is aware. -Pain control with low dose morphine and Tylenol as needed. -Heparin drip has been resumed for A. fib. This should also be adequate for DVT prophylaxis. -Continue IV antibiotics. -Continue medical management per critical care team. -Appreciate nephrology and ID input. Patient is due for dialysis today. -Will discuss with attending.
--- NOTE | 2017-01-30 07:04 | PN- Resident CRCU ---
Subjective HPI/CRCU Issues: Pt seen this morning, off pressors, and extubated. He was laying comfortably in bed, although he reports abdominal pain when he coughs and he was also tender to palpation. Noted left arm swelling, that pt reports has been present since AV fistula. Plan for dialysis today. Both stoma looks whitish at the edges, ischemic? Surgery aware. Pt currently on heparin drip of afib. Attempted to call urology yesterday but was not able to get in touch with their service. Will try again this morning. Pt did have 9beat vtach, couplets, and bigeminy on telemetry monitoring. Would consider cardiology consult. Spoke to Dr. Lopez, OG tube can likely be removed and diet resumed. Objective Vital Signs & I&O Last 8 Hrs of Vitals and I&O: Intake & Output 01/30 1600 01/30 0800 01/30 0000 Intake Total 876 987 Output Total 85 60 Balance 791 927 Intake, IV 876 987 Output, 75 50 Gastric Drainage Output, Stool 10 10 Laboratory Tests 01/30 01/29 0359 2100 Chemistry Sodium (137 - 145 mmol/L) 142 Potassium (3.5 - 5.1 mmol/L) 4.3 Chloride (98 - 107 mmol/L) 111 H Carbon Dioxide (22 - 30 mmol/L) 17 L Anion Gap (5 - 16) 14 BUN (9 - 20 mg/dL) 54 H Creatinine (0.7 - 1.2 mg/dL) 5.5 *H Estimated GFR (>60 ml/min) 10 L Glucose (65 - 99 mg/dL) 164 H Calcium (8.4 - 10.2 mg/dL) 8.6 Phosphorus (2.5 - 4.5 mg/dL) 7.8 H Magnesium (1.6 - 2.3 mg/dL) 2.6 H Total Bilirubin (0.2 - 1.3 mg/dL) 0.4 AST (17 - 59 U/L) 17 ALT (21 - 72 U/L) 29 Albumin (3.5 - 5.0 g/dL) 2.5 L Coagulation APTT (25 - 37 SEC) 71 H Hematology CBC w Diff NO MAN DIFF REQ WBC (4.8 - 10.8 /CUMM) 13.1 H RBC (4.70 - 6.10 /CUMM) 3.68 L Hgb (14.0 - 18.0 G/DL) 10.5 L Hct (42 - 52 %) 33.5 L MCV (80.0 - 94.0 FL) 91.2 MCH (27.0 - 31.0 PG) 28.7 RDW (11.5 - 14.5 %) 23.1 H Plt Count (130 - 400 /CUMM) 117 L MPV (7.4 - 10.4 FL) 9.7 Gran % (42.2 - 75.2 %) 91.0 H Lymphocytes % (20.5 - 51.1 %) 2.4 L Monocytes % (1.7 - 9.3 %) 6.2 Eosinophils % (0 - 5 %) 0.4 Basophils % (0.0 - 2.0 %) 0 L Absolute Granulocytes (1.4 - 6.5 /CUMM) 12.0 H Absolute Lymphocytes (1.2 - 3.4 /CUMM) 0.3 L Absolute Monocytes (0.10 - 0.60 /CUMM) 0.8 H Absolute Eosinophils (0.0 - 0.7 /CUMM) 0 Absolute Basophils (0.0 - 0.2 /CUMM) 0 PUBS MCHC (33.0 - 37.0 G/DL) 31.4 L Vital Signs Date Time Temp Pulse Resp B/P Pulse O2 O2 Flow FiO2 Ox Delivery Rate 01/30 0800 98 Nasal 3.0L Cannula 01/30 0800 97.3 73 18 137/36 98 Nasal 3.0L Cannula 01/30 0400 100 Nasal 3.0L Cannula 01/30 0000 97.6 70 18 124/76 99 Nasal 3.0L Cannula 01/30 0000 99 Nasal 3.0L Cannula 01/29 2015 96 Nasal 3.0L Cannula 01/29 1600 96 Nasal 3.0L Cannula 01/29 1600 97.2 66 20 122/48 96 Nasal 3.0L Cannula 01/29 1200 96 Nasal 3.0L Cannula 01/29 1200 97.2 64 20 102/56 100 Nasal 3.0L Cannula Exam General Appearance: no apparent distress, alert, awake, comfortable Head: atraumatic Respiratory: diffuse rhonchi Cardiovascular: regular rate/rhythm Gastrointestinal: diffusely tender to palpation white edges of stoma noted, ischemic? Weaning Parameters NIF: 41 Minute Volume: 9.45 Resp rate: 27 Vt: 350 Heart Rate: 76 Weaning Schedule Start Time: 1605 Minute Volume: 11.1 Resp Rate: 28 Vt: 400 Heart Rate: 82 End Time: 1705 Minute Volume: 7.84 Resp Rate: 26 Vt: 315 Heart Rate: 74 Current Medications: Current Medications Sig/Johnna Start time Last Medication Dose Route Stop Time Status Admin Acetaminophen 1,000 MG Q6P PRN 01/28 1730 AC 01/30 N/A 1 UNIT IV 0425 Albuterol Sulfate 3 ML TID 01/28 1600 AC 01/29 INH 2021 Calcitriol 0.25 MCG MoWeFr PRN 01/30 0815 AC IV Ceftriaxone Sodium 1,000 MG DAILY 01/29 1000 AC 01/29 IV 1033 Dextrose/Sodium 1,000 ML Q13H 01/29 1130 AC 01/30 Chloride IV 0428 Epoetin Guzman 4,000 UNIT MoWeFr PRN 01/30 0815 AC IV Fentanyl Citrate 1,000 MCG Q24H 01/28 1030 DC 01/28 Dextrose/Water 250 ML IV 1146 Heparin Sodium 25,000 UNIT Q24H 01/28 1800 AC 01/29 (Porcine) IV 1550 Sodium Chloride 500 ML Hydrocortisone 50 MG Q6 01/28 1200 AC 01/30 Sodium Succinate IV 0634 Insulin Human Regular 6 UNITS .STK-MED ONE 01/29 1823 DC IV 01/29 1824 Insulin Human Regular 2 UNITS .STK-MED ONE 01/29 1314 DC IV 01/29 1315 Insulin Human Regular 0 Q6 01/28 1200 AC 01/30 SC 0633 Metronidazole 500 MG IQ8 01/28 1600 01/30 N/A 1 UNIT IV 0747 Morphine Sulfate 2 MG Q2P PRN 01/28 1730 AC 01/29 IV 0836 Norepinephrine 4 MG Q24H 01/28 1115 DC 01/28 Sodium Chloride 250 ML IV 1205 Pantoprazole Sodium 40 MG DAILY 01/28 1027 AC 01/29 IV 1033 Impression/Plan Impression/Problem List Impression: 72-year-old male with significant COPD, recent worsening renal failure now with end-stage renal disease on hemodialysis, paroxysmal atrial fibrillation who is on anticoagulation, chronic heart failure with preserved ejection fraction LVEF of 50%, insulin dependent diabetes probably type II, peripheral vascular disease , coronary artery disease, history of monoclonal gammaglobulin neuropathy of unknown significance, now comes in with acute onset of lower abdominal pain associated with dry heaves while on dialysis. CT abdomen shoed evidence of Portal venous air as well as air in the central mesentery and surrounding the transverse colon, likely bowel ichemia. He underwent exploratory laparotomy with transverse colectomy and end colostomy, was admitted to ICU for close monitoring of post-op hypotension. He did require levophed briefly, and his BP responded to fluid boluses. He has been successfuly extubated. Lines: IJ (remove once have peripheral line) NG tube (remove once ok to eat) Gastrointestinal: # S/P exploratory laparotomy with transverse colectomy and end colostomy for ischemic bowel * Plan to remove NG tube and resume feeding * On 75ml/hr D5NS. DC once NG tube out and clear liquid diet started * On ceftriaxone and flagyl, likely can be discontinued today * Appreciate ID input * Appreciate surgery reccs * Dr. Lopez following Renal: # ESRD on Dialysis MWF * nephro on board # Left renal obstruction * urology consulted, Dr. Elise Respiratory: # Hx of COPD - Succesfully extubated - Previous history of MRSA and Pseudomonas in the lower respiratory tract * cont TRC/Nebs * f/u today's CXR Hematology: # Anemia - likely 2/2 to ESRD, * H&h low but stable, cont monitoring CVS: History of Afib * Currently on IV heparin, coumadin on hold * Consider cardio consult for 9 beat vtach * Monitor electrolytes and replete as needed Metabolic: # Diabetes mellitus * ISS, finger stick glucose, HBa1c Alimentary: * Patient NPO for now, will adv per surgery recs Diet: NPO DVT ppx: alps and heparin drip FULL CODE Labs: CBC, ICU Consults: surgery, nephrology, ID, surgery, CRCU, urology Problem List: 1. Mesenteric ischemia Pain Ratin Tomorrow's Labs & Rationales: CBC and ICU for critically ill Plan DVT/Prophylaxis: mechanical, pharmacological
[2017-01-30 08:00] VITALS: BP 137/36
--- NOTE | 2017-01-30 10:04 | PN- Nephrology ---
Assessment/Plan Assessment: ESRD: Stable from renal standpoint. Will aim for 3L UF. Epogen & calcitriol IV 3x/week with dialysis. 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 Sepsis improved; now off pressors and hemodynamically stable. Blood cultures negative. Suggestion: HD today Next HD monday Will follow along with you Froy aVsquez MD Subjective Subjective: No acute events seen on HD this AM pain well controlled off of pressors Review of Systems: no fever/chills no abd pain currently, except with palpation npo Objective Vital Signs and I&Os Vital Signs Date Time Temp Pulse Resp B/P Pulse O2 O2 Flow FiO2 Ox Delivery Rate 01/30 0856 97 Nasal 3.0L Cannula 01/30 0800 98 Nasal 3.0L Cannula 01/30 0800 97.3 73 18 137/36 98 Nasal 3.0L Cannula 01/30 0400 100 Nasal 3.0L Cannula 01/30 0000 97.6 70 18 124/76 99 Nasal 3.0L Cannula 01/30 0000 99 Nasal 3.0L Cannula 01/29 2015 96 Nasal 3.0L Cannula 01/29 1600 96 Nasal 3.0L Cannula 01/29 1600 97.2 66 20 122/48 96 Nasal 3.0L Cannula 01/29 1200 96 Nasal 3.0L Cannula 01/29 1200 97.2 64 20 102/56 100 Nasal 3.0L Cannula Intake & Output 01/30 1600 01/30 0400 01/29 1600 01/29 0400 01/28 1600 01/28 0400 Intake Total 926 717 2887 1322 401 Output Total 85 60 150 100 220 Balance 984 875 8115 1222 181 Intake, IV 591 725 6150 1322 401 Output, 10 Drainage Output, 75 50 100 120 Gastric Drainage Output, Stool 10 10 40 Output, Urine 0 100 100 Patient 176 lb 177 lb Weight Physical Exam: NAD no edema LUE AVF+thrill/bruit CTAB S1 S2 +abd well tenderness, in mid-abdomen Current Medications: Current Medications Sig/Johnna Start time Last Medication Dose Route Stop Time Status Admin Acetaminophen 1,000 MG Q6P PRN 01/28 1730 AC 01/30 N/A 1 UNIT IV 0425 Albuterol Sulfate 3 ML TID 01/28 1600 AC 01/30 INH 0853 Calcitriol 0.25 MCG MoWeFr PRN 01/30 0815 AC IV Ceftriaxone Sodium 1,000 MG DAILY 01/29 1000 AC 01/30 IV 0856 Dextrose/Sodium 1,000 ML Q13H 01/29 1130 AC 01/30 Chloride IV 0428 Epoetin Guzman 4,000 UNIT MoWeFr PRN 01/30 0815 AC IV Fentanyl Citrate 1,000 MCG Q24H 01/28 1030 DC 01/28 Dextrose/Water 250 ML IV 1146 Heparin Sodium 25,000 UNIT Q24H 01/28 1800 AC 01/29 (Porcine) IV 1550 Sodium Chloride 500 ML Hydrocortisone 50 MG Q6 01/28 1200 AC 01/30 Sodium Succinate IV 0634 Insulin Human Regular 6 UNITS .STK-MED ONE 01/29 1823 DC IV 01/29 1824 Insulin Human Regular 2 UNITS .STK-MED ONE 01/29 1314 DC IV 01/29 1315 Insulin Human Regular 0 Q6 01/28 1200 AC 01/30 SC 0633 Metronidazole 500 MG IQ8 01/28 1600 01/30 N/A 1 UNIT IV 0747 Morphine Sulfate 2 MG Q2P PRN 01/28 1730 AC 01/29 IV 0836 Norepinephrine 4 MG Q24H 01/28 1115 DC 01/28 Sodium Chloride 250 ML IV 1205 Pantoprazole Sodium 40 MG DAILY 01/28 1027 AC 01/30 IV 0856 Results Pertinent Lab Results: Laboratory Tests 01/30 01/30 01/29 01/29 0912 0359 2100 0815 Chemistry Sodium (137 - 145 mmol/L) 142 Potassium (3.5 - 5.1 mmol/L) 4.3 Chloride (98 - 107 mmol/L) 111 H Carbon Dioxide (22 - 30 mmol/L) 17 L Anion Gap (5 - 16) 14 BUN (9 - 20 mg/dL) 54 H Creatinine (0.7 - 1.2 mg/dL) 5.5 *H Estimated GFR (>60 ml/min) 10 L Glucose (65 - 99 mg/dL) 164 H Calcium (8.4 - 10.2 mg/dL) 8.6 Phosphorus (2.5 - 4.5 mg/dL) 7.8 H Magnesium (1.6 - 2.3 mg/dL) 2.6 H Total Bilirubin (0.2 - 1.3 mg/dL) 0.4 AST (17 - 59 U/L) 17 ALT (21 - 72 U/L) 29 Albumin (3.5 - 5.0 g/dL) 2.5 L Coagulation APTT (25 - 37 SEC) Pending 71 H 79 H Hematology CBC w Diff NO MAN DIFF REQ WBC (4.8 - 10.8 /CUMM) 13.1 H RBC (4.70 - 6.10 /CUMM) 3.68 L Hgb (14.0 - 18.0 G/DL) 10.5 L Hct (42 - 52 %) 33.5 L MCV (80.0 - 94.0 FL) 91.2 MCH (27.0 - 31.0 PG) 28.7 RDW (11.5 - 14.5 %) 23.1 H Plt Count (130 - 400 /CUMM) 117 L MPV (7.4 - 10.4 FL) 9.7 Gran % (42.2 - 75.2 %) 91.0 H Lymphocytes % (20.5 - 51.1 %) 2.4 L Monocytes % (1.7 - 9.3 %) 6.2 Eosinophils % (0 - 5 %) 0.4 Basophils % (0.0 - 2.0 %) 0 L Absolute Granulocytes (1.4 - 6.5 /CUMM) 12.0 H Absolute Lymphocytes (1.2 - 3.4 /CUMM) 0.3 L Absolute Monocytes (0.10 - 0.60 /CUMM) 0.8 H Absolute Eosinophils (0.0 - 0.7 /CUMM) 0 Absolute Basophils (0.0 - 0.2 /CUMM) 0 PUBS MCHC (33.0 - 37.0 G/DL) 31.4 L 01/29 01/29 01/28 0400 0045 2200 Blood Gas pH (7.35 - 7.45 PH) 7.27 *L pCO2 (35 - 45 TORR) 40 pO2 (80 - 100 TORR) 108 H HCO3 (21 - 28 MEQ/L) 18 L ABG O2 Sat (Measured) (>96.0 %) 96.0 P-50 (Temp Corrected) N Carboxyhemoglobin (1.5 - 5.0 %) 1.2 L O2 Concentration % 3L Temperature (97.0 - 100.0 FARH) 98.0 O2 Delivery Method NC Chemistry Sodium (137 - 145 mmol/L) 138 Potassium (3.5 - 5.1 mmol/L) 4.3 Chloride (98 - 107 mmol/L) 108 H Carbon Dioxide (22 - 30 mmol/L) 18 L Anion Gap (5 - 16) 12 BUN (9 - 20 mg/dL) 44 H Creatinine (0.7 - 1.2 mg/dL) 4.8 H Estimated GFR (>60 ml/min) 12 L Glucose (65 - 99 mg/dL) 161 H Calcium (8.4 - 10.2 mg/dL) 7.9 L Phosphorus (2.5 - 4.5 mg/dL) 5.4 H Magnesium (1.6 - 2.3 mg/dL) 2.0 Total Bilirubin (0.2 - 1.3 mg/dL) 0.4 AST (17 - 59 U/L) 21 ALT (21 - 72 U/L) 28 Albumin (3.5 - 5.0 g/dL) 2.5 L Coagulation PT (9.4 - 12.5 SEC) 19.0 H INR (0.90 - 1.17) 1.82 H APTT (25 - 37 SEC) 101 *H Hematology CBC w Diff NO MAN DIFF REQ WBC (4.8 - 10.8 /CUMM) 14.3 H RBC (4.70 - 6.10 /CUMM) 3.65 L Hgb (14.0 - 18.0 G/DL) 10.4 L Hct (42 - 52 %) 33.3 L MCV (80.0 - 94.0 FL) 91.3 MCH (27.0 - 31.0 PG) 28.6 RDW (11.5 - 14.5 %) 22.9 H Plt Count (130 - 400 /CUMM) 121 L MPV (7.4 - 10.4 FL) 9.3 Gran % (42.2 - 75.2 %) 89.5 H Lymphocytes % (20.5 - 51.1 %) 3.1 L Monocytes % (1.7 - 9.3 %) 7.3 Eosinophils % (0 - 5 %) 0 Basophils % (0.0 - 2.0 %) 0.1 Absolute Granulocytes (1.4 - 6.5 /CUMM) 12.8 H Absolute Lymphocytes (1.2 - 3.4 /CUMM) 0.4 L Absolute Monocytes (0.10 - 0.60 /CUMM) 1.0 H Absolute Eosinophils (0.0 - 0.7 /CUMM) 0 Absolute Basophils (0.0 - 0.2 /CUMM) 0 PUBS MCHC (33.0 - 37.0 G/DL) 31.3 L Miscellaneous Phlebotomy Draw Site [facility] 01/28 01/28 01/28 1645 1130 1100 Blood Gas pH (7.35 - 7.45 PH) 7.35 7.35 pCO2 (35 - 45 TORR) 32 L 33 L pO2 (80 - 100 TORR) 125 H 75 L HCO3 (21 - 28 MEQ/L) 17 L 18 L ABG O2 Sat (Measured) (>96.0 %) 96.0 92.0 L P-50 (Temp Corrected) M Carboxyhemoglobin (1.5 - 5.0 %) 1.4 L 2.0 O2 Concentration % 35 35% Temperature (97.0 - 100.0 FARH) 97.0 Respiration Rate (BPM) 16 O2 Delivery Method VENT VENT Vent Mode CPAP AC Expiratory Pressure (CMH2O/P) 5 5 Tidal Volume (CC) 550 Pressure Support (CMH2O/P) 6 Chemistry Sodium (137 - 145 mmol/L) 137 Potassium (3.5 - 5.1 mmol/L) 3.8 Chloride (98 - 107 mmol/L) 108 H Carbon Dioxide (22 - 30 mmol/L) 17 L Anion Gap (5 - 16) 13 BUN (9 - 20 mg/dL) 36 H Creatinine (0.7 - 1.2 mg/dL) 3.9 H Estimated GFR (>60 ml/min) 15 L Glucose (65 - 99 mg/dL) 167 H Calcium (8.4 - 10.2 mg/dL) 7.9 L Phosphorus (2.5 - 4.5 mg/dL) 4.3 Magnesium (1.6 - 2.3 mg/dL) 1.4 L Total Bilirubin (0.2 - 1.3 mg/dL) 0.5 AST (17 - 59 U/L) 17 ALT (21 - 72 U/L) 22 Albumin (3.5 - 5.0 g/dL) 2.8 L Hematology CBC w Diff MAN DIFF ORDERED WBC (4.8 - 10.8 /CUMM) 15.5 H RBC (4.70 - 6.10 /CUMM) 4.13 L Hgb (14.0 - 18.0 G/DL) 11.8 L Hct (42 - 52 %) 37.2 L MCV (80.0 - 94.0 FL) 90.2 MCH (27.0 - 31.0 PG) 28.6 RDW (11.5 - 14.5 %) 22.4 H Plt Count (130 - 400 /CUMM) 158 MPV (7.4 - 10.4 FL) 9.6 Gran % (42.2 - 75.2 %) 87.8 H Lymphocytes % (20.5 - 51.1 %) 3.9 L Monocytes % (1.7 - 9.3 %) 7.4 Eosinophils % (0 - 5 %) 0.6 Basophils % (0.0 - 2.0 %) 0.3 Absolute Granulocytes (1.4 - 6.5 /CUMM) 13.6 H Segmented Neutrophils (42.2 - 75.2 %) 75 Band Neutrophils (0.0 - 5.0 %) 18 H Absolute Lymphocytes (1.2 - 3.4 /CUMM) 0.6 L Lymphocytes (20.5 - 51.1 %) 1 L Monocytes (1.7 - 9.3 %) 6 Absolute Monocytes (0.10 - 0.60 /CUMM) 1.2 H Absolute Eosinophils (0.0 - 0.7 /CUMM) 0.1 Absolute Basophils (0.0 - 0.2 /CUMM) 0 Polychromasia 1+ Poikilocytosis 1+ Anisocytosis 2+ PUBS MCHC (33.0 - 37.0 G/DL) 31.6 L Miscellaneous Phlebotomy Draw Site [facility] 01/28 01/27 01/27 01/27 0036 5584 4977 2226 Chemistry Lactic Acid Cancelled Troponin I (<0.11 ng/ml) 0.06 Coagulation PT (9.4 - 12.5 SEC) 20.7 H INR (0.90 - 1.17) 1.98 H APTT (25 - 37 SEC) 38 H Cancelled 01/27 1950 Chemistry Sodium (137 - 145 mmol/L) 136 L Potassium (3.5 - 5.1 mmol/L) 4.5 Chloride (98 - 107 mmol/L) 102 Carbon Dioxide (22 - 30 mmol/L) 21 L Anion Gap (5 - 16) 13 BUN (9 - 20 mg/dL) 32 H Creatinine (0.7 - 1.2 mg/dL) 3.2 H Estimated GFR (>60 ml/min) 19 L BUN/Creatinine Ratio (7 - 25 %) 10.0 Glucose (65 - 99 mg/dL) 179 H Lactic Acid (0.7 - 2.1 mmol/L) 2.1 Calcium (8.4 - 10.2 mg/dL) 8.5 Total Bilirubin (0.2 - 1.3 mg/dL) 0.9 Direct Bilirubin (< 0.4 mg/dL) 0.9 H AST (17 - 59 U/L) 45 ALT (21 - 72 U/L) 20 L Alkaline Phosphatase (< 127 U/L) 96 Troponin I (<0.11 ng/ml) 0.08 Total Protein (6.3 - 8.2 g/dL) 6.4 Albumin (3.5 - 5.0 g/dL) 3.8 Globulin (1.9 - 4.2 gm/dL) 2.6 Albumin/Globulin Ratio (1.1 - 2.2 %) 1.5 Amylase (30 - 110 U/L) 90 Lipase (23 - 300 U/L) 218 Hematology CBC w Diff NO MAN DIFF REQ WBC (4.8 - 10.8 /CUMM) 9.8 RBC (4.70 - 6.10 /CUMM) 4.37 L Hgb (14.0 - 18.0 G/DL) 12.6 L Hct (42 - 52 %) 39.3 L MCV (80.0 - 94.0 FL) 89.8 MCH (27.0 - 31.0 PG) 28.7 RDW (11.5 - 14.5 %) 22.5 H Plt Count (130 - 400 /CUMM) 178 MPV (7.4 - 10.4 FL) 9.1 Gran % (42.2 - 75.2 %) 81.3 H Lymphocytes % (20.5 - 51.1 %) 9.7 L Monocytes % (1.7 - 9.3 %) 8.2 Eosinophils % (0 - 5 %) 0.5 Basophils % (0.0 - 2.0 %) 0.3 Absolute Granulocytes (1.4 - 6.5 /CUMM) 8.0 H Absolute Lymphocytes (1.2 - 3.4 /CUMM) 1.0 L Absolute Monocytes (0.10 - 0.60 /CUMM) 0.8 H Absolute Eosinophils (0.0 - 0.7 /CUMM) 0.1 Absolute Basophils (0.0 - 0.2 /CUMM) 0 PUBS MCHC (33.0 - 37.0 G/DL) 32.0 L
[2017-01-30 10:20] LABS: PTT 63 SEC (25-37)
--- NOTE | 2017-01-30 10:55 | PN- CRCU ---
Subjective HPI/Critical Care Issues: pt seen and examined ngt in place HD at the time of exam on epogen and calcitriol after today next HD wed doing better abd tenderness only during examination not without palptation respiratory status stable Objective Current Medications: Current Medications Sig/Johnna Start time Last Medication Dose Route Stop Time Status Admin Acetaminophen 1,000 MG Q6P PRN 01/28 1730 AC 01/30 N/A 1 UNIT IV 0425 Albuterol Sulfate 3 ML TID 01/28 1600 AC 01/30 INH 0853 Calcitriol 0.25 MCG MoWeFr PRN 01/30 0815 AC IV Ceftriaxone Sodium 1,000 MG DAILY 01/29 1000 AC 01/30 IV 0856 Dextrose/Sodium 1,000 ML Q13H 01/29 1130 AC 01/30 Chloride IV 0428 Epoetin Guzman 4,000 UNIT MoWeFr PRN 01/30 0815 AC IV Heparin Sodium 25,000 UNIT Q24H 01/28 1800 AC 01/29 (Porcine) IV 1550 Sodium Chloride 500 ML Hydrocortisone 50 MG Q6 01/28 1200 AC 01/30 Sodium Succinate IV 0634 Insulin Human Regular 6 UNITS .STK-MED ONE 01/29 1823 DC IV 01/29 1824 Insulin Human Regular 2 UNITS .STK-MED ONE 01/29 1314 DC IV 01/29 1315 Insulin Human Regular 0 Q6 01/28 1200 AC 01/30 SC 0633 Metronidazole 500 MG IQ8 01/28 1600 AC 01/30 N/A 1 UNIT IV 0747 Morphine Sulfate 2 MG Q2P PRN 01/28 1730 AC 01/29 IV 0836 Pantoprazole Sodium 40 MG DAILY 01/28 1027 AC 01/30 IV 0856 Vital Signs & I&O Last 24 Hrs of Vitals and I&O: Vital Signs Date Time Temp Pulse Resp B/P Pulse O2 O2 Flow FiO2 Ox Delivery Rate 01/30 0856 97 Nasal 3.0L Cannula 01/30 0800 98 Nasal 3.0L Cannula 01/30 0800 97.3 73 18 137/36 98 Nasal 3.0L Cannula 01/30 0400 100 Nasal 3.0L Cannula 01/30 0000 97.6 70 18 124/76 99 Nasal 3.0L Cannula 01/30 0000 99 Nasal 3.0L Cannula 01/29 2015 96 Nasal 3.0L Cannula 01/29 1600 96 Nasal 3.0L Cannula 01/29 1600 97.2 66 20 122/48 96 Nasal 3.0L Cannula 01/29 1200 96 Nasal 3.0L Cannula 01/29 1200 97.2 64 20 102/56 100 Nasal 3.0L Cannula Intake & Output 01/30 1600 01/30 0800 01/30 0000 Intake Total 876 987 Output Total 85 60 Balance 791 927 Intake, IV 876 987 Output, 75 50 Gastric Drainage Output, Stool 10 10 Patient 176 lb Weight Exam Other Physical Findings: gen awake and alert heent ngt cvs s1, s2 lungs rare bibasilar rhonchi abd soft, tender to deep palpation, colostomy ext no edema Results Last 24 Hrs of Lab Results: Laboratory Tests 01/30/17 0912: APTT 63 H 01/30/17 0359: Anion Gap 14, Estimated GFR 10 L, Glucose 164 H, Calcium 8.6, Phosphorus 7.8 H, Magnesium 2.6 H, Total Bilirubin 0.4, AST 17, ALT 29, Albumin 2.5 L, CBC w Diff NO MAN DIFF REQ, RBC 3.68 L, MCV 91.2, MCH 28.7, RDW 23.1 H, MPV 9.7, Gran % 91.0 H, Lymphocytes % 2.4 L, Monocytes % 6.2, Eosinophils % 0.4, Basophils % 0 L, Absolute Granulocytes 12.0 H, Absolute Lymphocytes 0.3 L, Absolute Monocytes 0.8 H, Absolute Eosinophils 0, Absolute Basophils 0, PUBS MCHC 31.4 L 01/29/17 2100: APTT 71 H Impression/Plan Impression/Plan Impression/Plan: Impression 72 year old man * s/p exp lap & transverse colectomy/colostomy for bowel ischemia * esrd on hd * copd at baseline * chronic anemia secondary to ESRD and previous GI bleed * a.fib hx * DM Plan - f/u surgery - f/u nephrology - f/u ID - coumadin held on heparin gtt - ceftriaxone and flagyl at this time - extubated doing well - trc/nebs - alimentary status per surgery DVT prophylaxis at all times Okay with DG when stable from cardiac perspective TTS 40 min
--- NOTE | 2017-01-30 11:21 | PN- Infect Dx ---
Subjective Subjective: Afebrile on steroids. His blood pressure has been stable off pressors. He does note abdominal discomfort. Objective Last 24 Hrs of Vital Signs/I&O Vital Signs Date Time Temp Pulse Resp B/P Pulse O2 O2 Flow FiO2 Ox Delivery Rate 01/30 0856 97 Nasal 3.0L Cannula 01/30 0800 98 Nasal 3.0L Cannula 01/30 0800 97.3 73 18 137/36 98 Nasal 3.0L Cannula 01/30 0400 100 Nasal 3.0L Cannula 01/30 0000 97.6 70 18 124/76 99 Nasal 3.0L Cannula 01/30 0000 99 Nasal 3.0L Cannula 01/29 2015 96 Nasal 3.0L Cannula 01/29 1600 96 Nasal 3.0L Cannula 01/29 1600 97.2 66 20 122/48 96 Nasal 3.0L Cannula 01/29 1200 96 Nasal 3.0L Cannula 01/29 1200 97.2 64 20 102/56 100 Nasal 3.0L Cannula Intake & Output 01/30 1600 01/30 0800 01/30 0000 Intake Total 876 987 Output Total 85 60 Balance 791 927 Intake, IV 876 987 Output, 75 50 Gastric Drainage Output, Stool 10 10 Patient 176 lb Weight Physical Exam Other Physical Findings: He is awake and alert on dialysis currently in no acute distress Neck right IJ Ilya catheter with no inflammation at the site; left IJ triple lumen catheter with no inflammation at the site Lungs scattered rhonchi bilaterally Heart regular rhythm with no murmur Abdomen distended, tender on minimal palpation, colostomy with a small amount of stool and mucous fistula with some blood Extremities 1+ edema both lower extremities Results Last 24 Hours of Lab Results: Laboratory Tests 01/30 01/30 01/29 0912 0359 2100 Chemistry Sodium (137 - 145 mmol/L) 142 Potassium (3.5 - 5.1 mmol/L) 4.3 Chloride (98 - 107 mmol/L) 111 H Carbon Dioxide (22 - 30 mmol/L) 17 L Anion Gap (5 - 16) 14 BUN (9 - 20 mg/dL) 54 H Creatinine (0.7 - 1.2 mg/dL) 5.5 *H Estimated GFR (>60 ml/min) 10 L Glucose (65 - 99 mg/dL) 164 H Calcium (8.4 - 10.2 mg/dL) 8.6 Phosphorus (2.5 - 4.5 mg/dL) 7.8 H Magnesium (1.6 - 2.3 mg/dL) 2.6 H Total Bilirubin (0.2 - 1.3 mg/dL) 0.4 AST (17 - 59 U/L) 17 ALT (21 - 72 U/L) 29 Albumin (3.5 - 5.0 g/dL) 2.5 L Coagulation APTT (25 - 37 SEC) 63 H 71 H Hematology CBC w Diff NO MAN DIFF REQ WBC (4.8 - 10.8 /CUMM) 13.1 H RBC (4.70 - 6.10 /CUMM) 3.68 L Hgb (14.0 - 18.0 G/DL) 10.5 L Hct (42 - 52 %) 33.5 L MCV (80.0 - 94.0 FL) 91.2 MCH (27.0 - 31.0 PG) 28.7 RDW (11.5 - 14.5 %) 23.1 H Plt Count (130 - 400 /CUMM) 117 L MPV (7.4 - 10.4 FL) 9.7 Gran % (42.2 - 75.2 %) 91.0 H Lymphocytes % (20.5 - 51.1 %) 2.4 L Monocytes % (1.7 - 9.3 %) 6.2 Eosinophils % (0 - 5 %) 0.4 Basophils % (0.0 - 2.0 %) 0 L Absolute Granulocytes (1.4 - 6.5 /CUMM) 12.0 H Absolute Lymphocytes (1.2 - 3.4 /CUMM) 0.3 L Absolute Monocytes (0.10 - 0.60 /CUMM) 0.8 H Absolute Eosinophils (0.0 - 0.7 /CUMM) 0 Absolute Basophils (0.0 - 0.2 /CUMM) 0 PUBS MCHC (33.0 - 37.0 G/DL) 31.4 L Last 24 Hours of Sat[place] Results: Sputum culture January 28 positive for mold Urine culture January 28 negative Recent Imaging Studies: Chest x-ray January 29 no focal consolidation or atelectasis Assessment/Plan Impression: Overall improved status post transverse colectomy 2 days ago for mesenteric ischemia/gangrenous transverse colon, with temperatures remaining normal and white blood cell count decreasing on Ceftriaxone and Flagyl. The role of antibiotics at this time is unclear as there apparently was no evidence of perforation intraoperatively and he has no evidence for further ischemia. His left kidney obstruction may present a risk for infection at some point and should be evaluated. He has a mild leukocytosis, which may be secondary to the steroids. The isolation of mold from the sputum likely represents colonization. Suggestion: 1. Urology evaluation regarding his left kidney obstruction 2. Remove left IJ triple lumen catheter if he has peripheral access 3. Discontinue steroids if okay with Pulmonary 4. Discontinue Ceftriaxone and Flagyl and follow off antibiotics
--- NOTE | 2017-01-30 13:52 | RADIOLOGY REPORT ---
EXAMINATION: XR PORTABLE CHEST CLINICAL INFORMATION: History of severe COPD. Pneumonia. COMPARISON: 01/29/2017 TECHNIQUE: Portable AP view of the chest was obtained. FINDINGS: There is a left chest wall AICD/pacer which is unchanged. Right-sided dialysis catheter terminates near the cavoatrial junction. Enteric tube in place. Left internal jugular central venous catheter remains in place. Median sternotomy wires are noted. Surgical clips overlie the mediastinum. The patient is rotated to the left. The lungs are well expanded. Hazy left basilar opacity is present which may represent a combination of small pleural effusion with airspace opacity. No pneumothorax. The cardiomediastinal silhouette remains prominent, with a calcified aorta. IMPRESSION: Left basilar opacity could be secondary to the prominent cardiac silhouette. Cannot exclude small pleural effusion with airspace opacity.
[2017-01-30 16:00] VITALS: BP 128/60
--- NOTE | 2017-01-30 20:01 | Operative Report ---
Operative/Inv Procedure Report Surgery Date: 01/28/17 Name of Procedure: Resection of gangrenous transverse colon creation of end colostomy on the right and a mucous fistula on the left Pre-Operative Diagnosis: Enteric ischemia Post-Operative Diagnosis: Gangrenous transverse colon Estimated Blood Loss: scant Surgeon/Information Technology Specialist: KIKI STREET,ADALBERTO AGUIRRE Anesthesia: general endotracheal tube Operative/Procedure Note Note: Patient was positioned supine, after successful induction of general anesthesia Block was done second timeout was done patient's abdomen was clipped prepped and draped in usual sterile fashion you could palpate the transverse colon. The midline laparotomy incision was planned in the epigastrium. This was made with a 10 blade and deepened through the very thin subcutaneous layer and through the peritoneum sharply there was no free air that was a little bit of free fluid you could see a gangrenous but intact transverse colon. We identified the proximal extent first by mobilizing the right colon laterally along the white line of Toldt inferiorly to free up the retroperitoneal attachments to the terminal ileum and appendix which were adherent continuing superiorly to the level of the duodenum. The gangrene demarcated at the hepatic flexure which was taken down. The distal extent of the gangrene we assessed by mobilizing the transverse colon to the left towards the spleen but not all the way we did not take down the splenic flexure but we did have to mobilize the omentum off the colon. We divided the intervening mesentery right at the border of the bowel wall with LigaSure and we chose two spots to resect not just visually but also by Doppler. We used a BEATRIS stapler to divide and complete the resection decision was made to not do a primary anastomosis given the acute situation in a patient with heart long and kidney disease and also the bowel being unprepped. So based on the laxity of the mobilization we chose to spots in the upper abdomen bilaterally, one for the right colon that would be an end colostomy and on the left one for the very distal transverse colon that would serve as a mucous fistula, plan being to eventually reanastomose after he recovers. Soft tissues are 2 spots on the skin. Both grafted the same way make a circular incision in the skin about the size of a quarter with the cutting cautery core out the subcutaneous fat opened the fascia sharply the direction of its fibers and split the underlying muscle and comes to the peritoneum make a small cruciate incision so that you can admit 2 fingerbreadths. Then using a Sandra clamp gently bring up the stapled end of the colon we did this on both sides though on the left you had to make an opening through an avascular part of the omentum to bring up that end of the colon and we irrigated and aspirated the peritoneum then closed the midline incision with a running 0 Maxon suture followed by a few subdermal Vicryl sutures followed by chung covered that incision and then matured both ostomies in Elicia fashion with 8 equally spaced 3-0 Vicryl sutures interrupted. This was followed by the ostomy appliances the midline was dressed with gauze and tape. EBL minimal lap and sponge counts correct wound expectancy clean/irrigated , IV fluids crystalloid complications none patient tolerated the procedure well was kept intubated and returned to recovery room in satisfactory condition.
[2017-01-30 22:17] LABS: PTT 48 SEC (25-37)
[2017-01-31] VITALS: BP 110/40
[2017-01-31 05:34] LABS: ABSOLUTE BASOPHIL COUNT 0 /CUMM (0.0-0.2); ABSOLUTE EOSINOPHIL COUNT 0.1 /CUMM (0.0-0.7); ABSOLUTE GRANULOCYTE CT 8.8 /CUMM (1.4-6.5); BASOPHIL % 0.2 % (0.0-2.0); EOSINOPHIL % 1.3 % (0-5); GRANULOCYTE % 80.7 % (42.2-75.2); HEMATOCRIT 31.8 % (42-52); MEAN CORPUSCULAR HGB 28.7 PG (27.0-31.0); MEAN CORPUSCULAR HGB CONC 31.6 G/DL (33.0-37.0); MEAN CORPUSCULAR VOLUME 90.8 FL (80.0-94.0); MEAN PLATELET VOLUME 9.2 FL (7.4-10.4); PLATELET COUNT 121 /CUMM (130-400); RBC DISTRIBUTION WIDTH 22.5 % (11.5-14.5); WHITE BLOOD CELL COUNT 10.9 /CUMM (4.8-10.8)
[2017-01-31 05:44] LABS: PTT 60 SEC (25-37)
--- NOTE | 2017-01-31 06:07 | PN- General Surgery ---
See Addendum Subjective Subjective: NO MAJOR CHANGES OVERNIGHT DENEIS CP, SOB, TOLERATING CLEAR DIET STARTED YESTERDY HAS A PRODUCTIVE COUGH AFEBRILE Objective Vital Signs and I&Os Vital Signs Date Time Temp Pulse Resp B/P Pulse O2 O2 Flow FiO2 Ox Delivery Rate 01/31 0000 99.0 78 18 110/40 95 Nasal 2.0L Cannula 01/31 0000 95 Nasal 2.0L Cannula 01/30 2054 96 Nasal 2.0L Cannula 01/30 1600 97 Nasal 3.0L Cannula 01/30 1600 97.0 83 21 128/60 97 Nasal 3.0L Cannula 01/30 1200 98 Nasal 3.0L Cannula 01/30 0856 97 Nasal 3.0L Cannula 01/30 0800 98 Nasal 3.0L Cannula 01/30 0800 97.3 73 18 137/36 98 Nasal 3.0L Cannula Intake & Output 01/31 0800 01/31 0000 01/30 1600 01/30 0800 01/30 0000 01/29 1600 Intake Total 480 936.6 876 987 989 Output Total 350 3010 85 60 0 Balance 130 -2073.4 791 927 989 Intake, IV 180 936.6 876 987 989 Intake, Oral 300 0 Output, 3000 Dialysate Output, 0 75 50 Gastric Drainage Output, Stool 10 10 10 0 Output, Urine 350 0 Patient 176 lb Weight Physical Exam: CV: RRR LUNGS: DIFFUSE RHONCHI ABD: +BS, DISTENDED RIGHT SIDED STOMA PINK WITH GAS AND STOOL INBAG LEFT STOMA RETRACTED, LESS DUSKY MINIMAL GAS IN BAG, SEROUS FLUID EXT: NO EDEMA DISTAL CMS INTACT Assessment/Plan Assessment/Plan SURGICALLY IPROVING PLAN ADVANCE DIET PER ATTENDING F/U AM CXR/LABS MAY RODERICK TO CHAIR/AMBULATE ALL OTHER PER MEDICINE
--- NOTE | 2017-01-31 07:59 | PN- Housestaff ---
Subjective Follow-up For: ischemic colitis sp resection Tele-Events Since Last Visit: 4 beat vtach paced rhythm Subjective: Pt seen this morning, feels fine. Left arm appears more edematous than yesterday. He tolerated clear liquid well. and off IVF. central line, arterial line and NG tube now removed. he reports having difficulty bringing sputum up Urology has been called yesterday. BP has been stable without pressors, fluids, or steroids. K 3.2, will replete with klor 20 , next dialysis tmr. mag 1.8, replete with mag ox. wbc improving 13.1 to 10.9. Review of Systems Constitutional: Reports: see HPI. Objective Last 24 Hrs of Vital Signs/I&O Vital Signs Date Time Temp Pulse Resp B/P Pulse O2 O2 Flow FiO2 Ox Delivery Rate 01/31 08 97.6 77 18 110/58 96 Nasal 3.0L Cannula 01/31 0800 96 Nasal 3.0L Cannula 01/31 0752 98 Nasal 2.0L Cannula 01/31 0000 99.0 78 18 110/40 95 Nasal 2.0L Cannula 01/31 0000 95 Nasal 2.0L Cannula 01/30 2054 96 Nasal 2.0L Cannula 01/30 1600 97 Nasal 3.0L Cannula 01/30 1600 97.0 83 21 128/60 97 Nasal 3.0L Cannula 01/30 1200 98 Nasal 3.0L Cannula Intake & Output 01/31 1600 01/31 0800 01/31 0000 Intake Total 328 480 Output Total 1 350 Balance 327 130 Intake, IV 208 180 Intake, Oral 120 300 Output, Stool 1 Output, Urine 0 350 Patient 89.131 kg Weight Physical Exam General Appearance: Alert, Oriented X3, Cooperative, No Acute Distress Cardiovascular: Regular Rate, Normal S1, Normal S2, No Murmurs Lungs: diffuse rhonchi although improved from pervious exam Abdomen: tender to palpation. stool in the right colostomy bag, blood in the left. Current Medications: Current Medications Sig/Johnna Start time Last Medication Dose Route Stop Time Status Admin Acetaminophen 1,000 MG Q6P PRN 01/28 1730 AC 01/31 N/A 1 UNIT IV 0211 Albuterol Sulfate 3 ML TID 01/28 1600 AC 01/31 INH 0752 Calcitriol 0.25 MCG MoWeFr PRN 01/30 0815 AC IV Ceftriaxone Sodium 1,000 MG DAILY 01/29 1000 DC 01/30 IV 0856 Dextrose/Sodium 1,000 ML Q13H 01/29 1130 DC 01/30 Chloride IV 1252 Epoetin Guzman 4,000 UNIT MoWeFr PRN 01/30 0815 AC IV Guaifenesin 10 ML ONCE ONE 01/31 0200 DC 01/31 PO 01/31 0201 0157 Heparin Sodium 25,000 UNIT Q24H 01/28 1800 AC 01/30 (Porcine) IV 1736 Sodium Chloride 500 ML Hydrocortisone 50 MG Q6 01/28 1200 DC 01/30 Sodium Succinate IV 0634 Insulin Human Regular 0 Q6 01/28 1200 AC 01/30 SC 1736 Magnesium Oxide 400 MG ONE ONE 01/31 0730 DC PO 01/31 0731 Metronidazole 500 MG IQ8 01/28 1600 DC 01/30 N/A 1 UNIT IV 0747 Morphine Sulfate 2 MG Q2P PRN 01/28 1730 AC 01/30 IV 2120 Pantoprazole Sodium 40 MG DAILY 01/28 1027 AC 01/30 IV 0856 Sodium Chloride 2 SPRAY Q4P PRN 01/31 0430 AC CHULA Trazodone HCl 50 MG AT BEDTIME 01/30 2200 AC PO Last 24 Hrs of Lab/Satnam Results Last 24 Hrs of Labs/Mics: Laboratory Tests 01/31/17 0500: Anion Gap 11, Estimated GFR 18 L, Glucose 121 H, Calcium 7.7 L, Phosphorus 4.4, Magnesium 1.8, Total Bilirubin 0.4, AST 13 L, ALT 27, Albumin 2.4 L, APTT 60 H, CBC w Diff NO MAN DIFF REQ, RBC 3.50 L, MCV 90.8, MCH 28.7, RDW 22.5 H, MPV 9.2, Gran % 80.7 H, Lymphocytes % 9.0 L, Monocytes % 8.8, Eosinophils % 1.3, Basophils % 0.2, Absolute Granulocytes 8.8 H, Absolute Lymphocytes 1.0 L, Absolute Monocytes 1.0 H, Absolute Eosinophils 0.1, Absolute Basophils 0, PUBS MCHC 31.6 L 01/30/172124: APTT 48 H Assessment/Plan Assessment: 72-year-old male with significant COPD, recent worsening renal failure now with end-stage renal disease on hemodialysis, paroxysmal atrial fibrillation who is on anticoagulation, chronic heart failure with preserved ejection fraction LVEF of 50%, insulin dependent diabetes probably type II, peripheral vascular disease , coronary artery disease, history of monoclonal gammaglobulin neuropathy of unknown significance, now comes in with acute onset of lower abdominal pain associated with dry heaves while on dialysis. CT abdomen shoed evidence of Portal venous air as well as air in the central mesentery and surrounding the transverse colon, likely bowel ichemia. He underwent exploratory laparotomy with transverse colectomy and end colostomy, was admitted to ICU for close monitoring of post-op hypotension. He did require levophed briefly, and his BP responded to fluid boluses. He has been successfuly extubated. BP now stable without fluids, pressors, or steroids. Stable for telemetry. Gastrointestinal: # S/P exploratory laparotomy with transverse colectomy and end colostomy for ischemic bowel * Ceftriaxone and flagyl 01/28 - 01/30 * Hydrocortisone 01/28 - 01/30 * Appreciate ID input * Appreciate surgery reccs, advance diet as per surgery * Dr. Lopez following # Left upper extremity swelling sp AV fistula * Vascular surgery consult placed # ESRD on Dialysis MWF * nephro on board # Left renal obstruction * urology consulted, Dr. Elise Respiratory: # Hx of COPD - Succesfully extubated - Previous history of MRSA and Pseudomonas in the lower respiratory tract * cont TRC/Nebs * mucomyst X 6 doses # Anemia - likely 2/2 to ESRD, * H&h low but stable, cont monitoring History of Afib * Currently on IV heparin, coumadin on hold * Monitor electrolytes and replete as needed # Diabetes mellitus * ISS, finger stick glucose, HBa1c Diet: Advance as per surgery DVT ppx: alps and heparin drip FULL CODE Labs: CBC, ICU Consults: surgery, nephrology, ID, surgery, CRCU, urology Problem List: 1. Mesenteric ischemia Pain Ratin Pain Location: abdomen Pain Goal: Remain pain free Pain Plan: mild pp Tomorrow's Labs & Rationales: CBC leukocytosis BEP mag for electrolyte DVT/Prophylaxis: mechanical, pharmacological BEP mag for electrolyte DVT/Prophylaxis: mechanical, pharmacological
[2017-01-31 08:00] VITALS: BP 110/58
--- NOTE | 2017-01-31 08:40 | RADIOLOGY REPORT ---
EXAMINATION: XR PORTABLE CHEST CLINICAL INFORMATION: Status post lobectomy COMPARISON: CXR from 01/30/2017 TECHNIQUE: Portable AP view of the chest was obtained. FINDINGS: Lungs are symmetrically expanded. No acute pulmonary edema, focal consolidation or pleural effusion. The central venous catheter is in stable position with its tip projecting over the right atrium. No pneumothorax. Again noted is a biventricular AICD/pacemaker. Stable cardiomegaly. Atherosclerotic aorta. No acute osseous abnormality. IMPRESSION: 1. No evidence of lobectomy. 2. Mild cardiomegaly without pulmonary edema.
--- NOTE | 2017-01-31 09:38 | PN- Nephrology ---
Assessment/Plan Assessment: ESRD: Stable from renal standpoint. Epogen & calcitriol IV 3x/week with dialysis. No acute dialytic need today, next dialysis tomorrow Hypokalemia: Would replete with 20 mEq of potassium chloride, pt would prefer liquid K-Lur Transverse colitis s/p transverse colectomy & colostomy & mucous fistula. Sepsis improved; now off pressors and hemodynamically stable. Blood cultures negative. Suggestion: Klur 20 meq po x1 Next HD monday Will follow along with you Froy Vasquez MD Subjective Subjective: Feeling better today Was dialyzed yesterday Taking by mouth clears Potassium low at 3.2 Review of Systems: Denies shortness breath chest pain or edema Objective Vital Signs and I&Os Vital Signs Date Time Temp Pulse Resp B/P Pulse O2 O2 Flow FiO2 Ox Delivery Rate 01/31 0800 97.6 77 18 110/58 96 Nasal 3.0L Cannula 01/31 0800 96 Nasal 3.0L Cannula 01/31 0752 98 Nasal 2.0L Cannula 01/31 0000 99.0 78 18 110/40 95 Nasal 2.0L Cannula 01/31 0000 95 Nasal 2.0L Cannula 01/30 2054 96 Nasal 2.0L Cannula 01/30 1600 97 Nasal 3.0L Cannula 01/30 1600 97.0 83 21 128/60 97 Nasal 3.0L Cannula 01/30 1200 98 Nasal 3.0L Cannula Intake & Output 01/31 1600 01/31 0400 01/30 1600 01/30 0400 01/29 1600 01/29 0400 Intake Total 668 042 4790.6 987 1520 1322 Output Total 1 350 3095 60 150 100 Balance 327 130 -1282.4 927 1370 1222 Intake, IV 397 259 2515.6 987 1520 1322 Intake, Oral 120 300 0 Output, 3000 Dialysate Output, 10 Drainage Output, 75 50 100 Gastric Drainage Output, Stool 1 20 10 40 Output, Urine 0 350 0 100 Patient 197 lb 176 lb Weight Physical Exam: NAD no edema LUE AVF+thrill/bruit CTAB S1 S2 +abd well tenderness, in mid-abdomen Current Medications: Current Medications Sig/Johnna Start time Last Medication Dose Route Stop Time Status Admin Acetaminophen 1,000 MG Q6P PRN 01/28 1730 AC 01/31 N/A 1 UNIT IV 0211 Albuterol Sulfate 3 ML TID 01/28 1600 AC 01/31 INH 0752 Calcitriol 0.25 MCG MoWeFr PRN 01/30 0815 AC IV Ceftriaxone Sodium 1,000 MG DAILY 01/29 1000 DC 01/30 IV 0856 Dextrose/Sodium 1,000 ML Q13H 01/29 1130 DC 01/30 Chloride IV 1252 Epoetin Guzman 4,000 UNIT MoWeFr PRN 01/30 0815 AC IV Guaifenesin 10 ML ONCE ONE 01/31 0200 DC 01/31 PO 01/31 0201 0157 Heparin Sodium 25,000 UNIT Q24H 01/28 1800 AC 01/30 (Porcine) IV 1736 Sodium Chloride 500 ML Hydrocortisone 50 MG Q6 01/28 1200 DC 01/30 Sodium Succinate IV 0634 Insulin Human Regular 0 Q6 01/28 1200 AC 01/30 SC 1736 Magnesium Oxide 400 MG ONE ONE 01/31 0730 DC PO 01/31 0731 Metronidazole 500 MG IQ8 01/28 1600 DC 01/30 N/A 1 UNIT IV 0747 Morphine Sulfate 2 MG Q2P PRN 01/28 1730 AC 01/30 IV 2120 Pantoprazole Sodium 40 MG DAILY 01/28 1027 AC 01/30 IV 0856 Potassium Chloride 20 MEQ ONCE ONE 01/31 0930 DC PO 01/31 0931 Sodium Chloride 2 SPRAY Q4P PRN 01/31 0430 AC CHULA Trazodone HCl 50 MG AT BEDTIME 01/30 2200 AC PO Results Pertinent Lab Results: Laboratory Tests 01/31 01/30 01/30 0500 2125 0912 Chemistry Sodium (137 - 145 mmol/L) 137 Potassium (3.5 - 5.1 mmol/L) 3.2 L Chloride (98 - 107 mmol/L) 104 Carbon Dioxide (22 - 30 mmol/L) 22 Anion Gap (5 - 16) 11 BUN (9 - 20 mg/dL) 30 H Creatinine (0.7 - 1.2 mg/dL) 3.4 H Estimated GFR (>60 ml/min) 18 L Glucose (65 - 99 mg/dL) 121 H Calcium (8.4 - 10.2 mg/dL) 7.7 L Phosphorus (2.5 - 4.5 mg/dL) 4.4 Magnesium (1.6 - 2.3 mg/dL) 1.8 Total Bilirubin (0.2 - 1.3 mg/dL) 0.4 AST (17 - 59 U/L) 13 L ALT (21 - 72 U/L) 27 Albumin (3.5 - 5.0 g/dL) 2.4 L Coagulation APTT (25 - 37 SEC) 60 H 48 H 63 H Hematology CBC w Diff NO MAN DIFF REQ WBC (4.8 - 10.8 /CUMM) 10.9 H RBC (4.70 - 6.10 /CUMM) 3.50 L Hgb (14.0 - 18.0 G/DL) 10.1 L Hct (42 - 52 %) 31.8 L MCV (80.0 - 94.0 FL) 90.8 MCH (27.0 - 31.0 PG) 28.7 RDW (11.5 - 14.5 %) 22.5 H Plt Count (130 - 400 /CUMM) 121 L MPV (7.4 - 10.4 FL) 9.2 Gran % (42.2 - 75.2 %) 80.7 H Lymphocytes % (20.5 - 51.1 %) 9.0 L Monocytes % (1.7 - 9.3 %) 8.8 Eosinophils % (0 - 5 %) 1.3 Basophils % (0.0 - 2.0 %) 0.2 Absolute Granulocytes (1.4 - 6.5 /CUMM) 8.8 H Absolute Lymphocytes (1.2 - 3.4 /CUMM) 1.0 L Absolute Monocytes (0.10 - 0.60 /CUMM) 1.0 H Absolute Eosinophils (0.0 - 0.7 /CUMM) 0.1 Absolute Basophils (0.0 - 0.2 /CUMM) 0 PUBS MCHC (33.0 - 37.0 G/DL) 31.6 L 01/30 01/29 01/29 0359 2100 0815 Chemistry Sodium (137 - 145 mmol/L) 142 Potassium (3.5 - 5.1 mmol/L) 4.3 Chloride (98 - 107 mmol/L) 111 H Carbon Dioxide (22 - 30 mmol/L) 17 L Anion Gap (5 - 16) 14 BUN (9 - 20 mg/dL) 54 H Creatinine (0.7 - 1.2 mg/dL) 5.5 *H Estimated GFR (>60 ml/min) 10 L Glucose (65 - 99 mg/dL) 164 H Calcium (8.4 - 10.2 mg/dL) 8.6 Phosphorus (2.5 - 4.5 mg/dL) 7.8 H Magnesium (1.6 - 2.3 mg/dL) 2.6 H Total Bilirubin (0.2 - 1.3 mg/dL) 0.4 AST (17 - 59 U/L) 17 ALT (21 - 72 U/L) 29 Albumin (3.5 - 5.0 g/dL) 2.5 L Coagulation APTT (25 - 37 SEC) 71 H 79 H Hematology CBC w Diff NO MAN DIFF REQ WBC (4.8 - 10.8 /CUMM) 13.1 H RBC (4.70 - 6.10 /CUMM) 3.68 L Hgb (14.0 - 18.0 G/DL) 10.5 L Hct (42 - 52 %) 33.5 L MCV (80.0 - 94.0 FL) 91.2 MCH (27.0 - 31.0 PG) 28.7 RDW (11.5 - 14.5 %) 23.1 H Plt Count (130 - 400 /CUMM) 117 L MPV (7.4 - 10.4 FL) 9.7 Gran % (42.2 - 75.2 %) 91.0 H Lymphocytes % (20.5 - 51.1 %) 2.4 L Monocytes % (1.7 - 9.3 %) 6.2 Eosinophils % (0 - 5 %) 0.4 Basophils % (0.0 - 2.0 %) 0 L Absolute Granulocytes (1.4 - 6.5 /CUMM) 12.0 H Absolute Lymphocytes (1.2 - 3.4 /CUMM) 0.3 L Absolute Monocytes (0.10 - 0.60 /CUMM) 0.8 H Absolute Eosinophils (0.0 - 0.7 /CUMM) 0 Absolute Basophils (0.0 - 0.2 /CUMM) 0 PUBS MCHC (33.0 - 37.0 G/DL) 31.4 L 01/29 01/29 01/28 0400 0045 2200 Blood Gas pH (7.35 - 7.45 PH) 7.27 *L pCO2 (35 - 45 TORR) 40 pO2 (80 - 100 TORR) 108 H HCO3 (21 - 28 MEQ/L) 18 L ABG O2 Sat (Measured) (>96.0 %) 96.0 P-50 (Temp Corrected) N Carboxyhemoglobin (1.5 - 5.0 %) 1.2 L O2 Concentration % 3L Temperature (97.0 - 100.0 FARH) 98.0 O2 Delivery Method NC Chemistry Sodium (137 - 145 mmol/L) 138 Potassium (3.5 - 5.1 mmol/L) 4.3 Chloride (98 - 107 mmol/L) 108 H Carbon Dioxide (22 - 30 mmol/L) 18 L Anion Gap (5 - 16) 12 BUN (9 - 20 mg/dL) 44 H Creatinine (0.7 - 1.2 mg/dL) 4.8 H Estimated GFR (>60 ml/min) 12 L Glucose (65 - 99 mg/dL) 161 H Calcium (8.4 - 10.2 mg/dL) 7.9 L Phosphorus (2.5 - 4.5 mg/dL) 5.4 H Magnesium (1.6 - 2.3 mg/dL) 2.0 Total Bilirubin (0.2 - 1.3 mg/dL) 0.4 AST (17 - 59 U/L) 21 ALT (21 - 72 U/L) 28 Albumin (3.5 - 5.0 g/dL) 2.5 L Coagulation PT (9.4 - 12.5 SEC) 19.0 H INR (0.90 - 1.17) 1.82 H APTT (25 - 37 SEC) 101 *H Hematology CBC w Diff NO MAN DIFF REQ WBC (4.8 - 10.8 /CUMM) 14.3 H RBC (4.70 - 6.10 /CUMM) 3.65 L Hgb (14.0 - 18.0 G/DL) 10.4 L Hct (42 - 52 %) 33.3 L MCV (80.0 - 94.0 FL) 91.3 MCH (27.0 - 31.0 PG) 28.6 RDW (11.5 - 14.5 %) 22.9 H Plt Count (130 - 400 /CUMM) 121 L MPV (7.4 - 10.4 FL) 9.3 Gran % (42.2 - 75.2 %) 89.5 H Lymphocytes % (20.5 - 51.1 %) 3.1 L Monocytes % (1.7 - 9.3 %) 7.3 Eosinophils % (0 - 5 %) 0 Basophils % (0.0 - 2.0 %) 0.1 Absolute Granulocytes (1.4 - 6.5 /CUMM) 12.8 H Absolute Lymphocytes (1.2 - 3.4 /CUMM) 0.4 L Absolute Monocytes (0.10 - 0.60 /CUMM) 1.0 H Absolute Eosinophils (0.0 - 0.7 /CUMM) 0 Absolute Basophils (0.0 - 0.2 /CUMM) 0 PUBS MCHC (33.0 - 37.0 G/DL) 31.3 L Miscellaneous Phlebotomy Draw Site [place] 01/28 01/28 01/28 1645 1130 1100 Blood Gas pH (7.35 - 7.45 PH) 7.35 7.35 pCO2 (35 - 45 TORR) 32 L 33 L pO2 (80 - 100 TORR) 125 H 75 L HCO3 (21 - 28 MEQ/L) 17 L 18 L ABG O2 Sat (Measured) (>96.0 %) 96.0 92.0 L P-50 (Temp Corrected) M Carboxyhemoglobin (1.5 - 5.0 %) 1.4 L 2.0 O2 Concentration % 35 35% Temperature (97.0 - 100.0 FARH) 97.0 Respiration Rate (BPM) 16 O2 Delivery Method VENT VENT Vent Mode CPAP AC Expiratory Pressure (CMH2O/P) 5 5 Tidal Volume (CC) 550 Pressure Support (CMH2O/P) 6 Chemistry Sodium (137 - 145 mmol/L) 137 Potassium (3.5 - 5.1 mmol/L) 3.8 Chloride (98 - 107 mmol/L) 108 H Carbon Dioxide (22 - 30 mmol/L) 17 L Anion Gap (5 - 16) 13 BUN (9 - 20 mg/dL) 36 H Creatinine (0.7 - 1.2 mg/dL) 3.9 H Estimated GFR (>60 ml/min) 15 L Glucose (65 - 99 mg/dL) 167 H Calcium (8.4 - 10.2 mg/dL) 7.9 L Phosphorus (2.5 - 4.5 mg/dL) 4.3 Magnesium (1.6 - 2.3 mg/dL) 1.4 L Total Bilirubin (0.2 - 1.3 mg/dL) 0.5 AST (17 - 59 U/L) 17 ALT (21 - 72 U/L) 22 Albumin (3.5 - 5.0 g/dL) 2.8 L Hematology CBC w Diff MAN DIFF ORDERED WBC (4.8 - 10.8 /CUMM) 15.5 H RBC (4.70 - 6.10 /CUMM) 4.13 L Hgb (14.0 - 18.0 G/DL) 11.8 L Hct (42 - 52 %) 37.2 L MCV (80.0 - 94.0 FL) 90.2 MCH (27.0 - 31.0 PG) 28.6 RDW (11.5 - 14.5 %) 22.4 H Plt Count (130 - 400 /CUMM) 158 MPV (7.4 - 10.4 FL) 9.6 Gran % (42.2 - 75.2 %) 87.8 H Lymphocytes % (20.5 - 51.1 %) 3.9 L Monocytes % (1.7 - 9.3 %) 7.4 Eosinophils % (0 - 5 %) 0.6 Basophils % (0.0 - 2.0 %) 0.3 Absolute Granulocytes (1.4 - 6.5 /CUMM) 13.6 H Segmented Neutrophils (42.2 - 75.2 %) 75 Band Neutrophils (0.0 - 5.0 %) 18 H Absolute Lymphocytes (1.2 - 3.4 /CUMM) 0.6 L Lymphocytes (20.5 - 51.1 %) 1 L Monocytes (1.7 - 9.3 %) 6 Absolute Monocytes (0.10 - 0.60 /CUMM) 1.2 H Absolute Eosinophils (0.0 - 0.7 /CUMM) 0.1 Absolute Basophils (0.0 - 0.2 /CUMM) 0 Polychromasia 1+ Poikilocytosis 1+ Anisocytosis 2+ PUBS MCHC (33.0 - 37.0 G/DL) 31.6 L Miscellaneous Phlebotomy Draw Site [facility]
--- NOTE | 2017-01-31 11:03 | PN- Infect Dx ---
Subjective Subjective: Afebrile without complaints. He is quite discouraged about his overall status. Objective Last 24 Hrs of Vital Signs/I&O Vital Signs Date Time Temp Pulse Resp B/P Pulse O2 O2 Flow FiO2 Ox Delivery Rate 02/01 800 97.6 77 18 110/58 96 Nasal 3.0L Cannula 01/31 0800 96 Nasal 3.0L Cannula 01/31 0752 98 Nasal 2.0L Cannula 01/31 0000 99.0 78 18 110/40 95 Nasal 2.0L Cannula 01/31 0000 95 Nasal 2.0L Cannula 01/30 2054 96 Nasal 2.0L Cannula 01/30 1600 97 Nasal 3.0L Cannula 01/31 1600 97.0 83 21 128/60 97 Nasal 3.0L Cannula 01/30 1200 98 Nasal 3.0L Cannula Intake & Output 01/31 1600 01/31 0800 01/31 0000 Intake Total 328 480 Output Total 1 350 Balance 327 130 Intake, IV 208 180 Intake, Oral 120 300 Output, Stool 1 Output, Urine 0 350 Patient 197 lb Weight Physical Exam Other Physical Findings: He appears comfortable in no acute distress Chest right IJ tunneled dialysis catheter with no inflammation at the site Lungs bilateral rhonchi Heart regular rhythm with no murmur Extremities marked left upper extremity swelling, with positive bruit over the fistula site, with no erythema or tenderness and with no drainage from the incision; trace edema both lower extremities Results Last 24 Hours of Lab Results: Laboratory Tests 01/31 01/30 0500 2125 Chemistry Sodium (137 - 145 mmol/L) 137 Potassium (3.5 - 5.1 mmol/L) 3.2 L Chloride (98 - 107 mmol/L) 104 Carbon Dioxide (22 - 30 mmol/L) 22 Anion Gap (5 - 16) 11 BUN (9 - 20 mg/dL) 30 H Creatinine (0.7 - 1.2 mg/dL) 3.4 H Estimated GFR (>60 ml/min) 18 L Glucose (65 - 99 mg/dL) 121 H Calcium (8.4 - 10.2 mg/dL) 7.7 L Phosphorus (2.5 - 4.5 mg/dL) 4.4 Magnesium (1.6 - 2.3 mg/dL) 1.8 Total Bilirubin (0.2 - 1.3 mg/dL) 0.4 AST (17 - 59 U/L) 13 L ALT (21 - 72 U/L) 27 Albumin (3.5 - 5.0 g/dL) 2.4 L Coagulation APTT (25 - 37 SEC) 60 H 48 H Hematology CBC w Diff NO MAN DIFF REQ WBC (4.8 - 10.8 /CUMM) 10.9 H RBC (4.70 - 6.10 /CUMM) 3.50 L Hgb (14.0 - 18.0 G/DL) 10.1 L Hct (42 - 52 %) 31.8 L MCV (80.0 - 94.0 FL) 90.8 MCH (27.0 - 31.0 PG) 28.7 RDW (11.5 - 14.5 %) 22.5 H Plt Count (130 - 400 /CUMM) 121 L MPV (7.4 - 10.4 FL) 9.2 Gran % (42.2 - 75.2 %) 80.7 H Lymphocytes % (20.5 - 51.1 %) 9.0 L Monocytes % (1.7 - 9.3 %) 8.8 Eosinophils % (0 - 5 %) 1.3 Basophils % (0.0 - 2.0 %) 0.2 Absolute Granulocytes (1.4 - 6.5 /CUMM) 8.8 H Absolute Lymphocytes (1.2 - 3.4 /CUMM) 1.0 L Absolute Monocytes (0.10 - 0.60 /CUMM) 1.0 H Absolute Eosinophils (0.0 - 0.7 /CUMM) 0.1 Absolute Basophils (0.0 - 0.2 /CUMM) 0 PUBS MCHC (33.0 - 37.0 G/DL) 31.6 L Last 24 Hours of Satnam Results: No recent cultures Recent Imaging Studies: Chest x-ray January 31, personally reviewed, reveals mild cardiomegaly with no focal consolidation Assessment/Plan Impression: Continues to improve status post transverse colectomy 3 days ago for mesenteric ischemia/gangrenous transverse colon, with temperatures and white blood cell count now normal off antibiotics. His left upper extremity swelling is likely related to his recent fistula creation 5 days ago but may warrant surgical evaluation. His left kidney obstruction may present a risk for infection at some point and should be evaluated. The isolation of mold from the sputum likely represents colonization and does not require treatment. Suggestion: 1. Urology evaluation regarding his left kidney obstruction 2. Vascular surgery evaluation of his left upper extremity edema 3. Continue to follow off antibiotics
--- NOTE | 2017-01-31 11:50 | PN- Pulmonary ---
Subjective HPI/Critical Care Issues: pt seen and examined doing well no pain some dry cough, he feels that he wants to bring up phlegm but having difficulty doing so hemodynamically stable tele hold Objective Current Medications: Current Medications Sig/Johnna Start time Last Medication Dose Route Stop Time Status Admin Acetaminophen 650 MG Q4P PRN 01/31 1100 AC 01/31 PO 1123 Acetaminophen 1,000 MG .STK-MED ONE 01/31 0205 DC IV 01/31 0206 Acetaminophen 1,000 MG Q6P PRN 01/28 1730 DC 01/31 N/A 1 UNIT IV 0211 Acetylcysteine 4 ML BID 01/31 1000 CAN INH 02/02 2201 Acetylcysteine 2 ML BID 01/31 1000 AC INH 02/02 2201 Albuterol Sulfate 3 ML TID 01/28 1600 AC 01/31 INH 0752 Calcitriol 0.25 MCG MoWeFr PRN 01/30 0815 AC IV Dextrose/Sodium 1,000 ML Q13H 01/29 1130 DC 01/30 Chloride IV 1252 Epoetin Guzman 4,000 UNIT MoWeFr PRN 01/30 0815 AC IV Guaifenesin 10 ML ONCE ONE 01/31 0200 DC 01/31 PO 01/31 0201 0157 Heparin Sodium 25,000 UNIT Q24H 01/28 1800 AC 01/30 (Porcine) IV 1736 Sodium Chloride 500 ML Insulin Human Regular 0 Q6 01/28 1200 AC 01/30 SC 1736 Magnesium Oxide 400 MG ONE ONE 01/31 0730 DC 01/31 PO 01/31 0731 0950 Morphine Sulfate 2 MG Q2P PRN 01/28 1730 AC 01/31 IV 1126 Pantoprazole Sodium 40 MG DAILY 01/28 1027 AC 01/31 IV 0950 Potassium Chloride 20 MEQ ONCE ONE 01/31 0930 DC 01/31 PO 01/31 0931 0950 Sodium Chloride 2 SPRAY Q4P PRN 01/31 0430 AC CHULA Trazodone HCl 50 MG AT BEDTIME 01/30 2200 AC PO Vital Signs & I&O Last 24 Hrs of Vitals and I&O: Vital Signs Date Time Temp Pulse Resp B/P Pulse O2 O2 Flow FiO2 Ox Delivery Rate 01/31 08 97.6 77 18 110/58 96 Nasal 3.0L Cannula 01/31 0800 96 Nasal 3.0L Cannula 01/31 0752 98 Nasal 2.0L Cannula 01/31 0000 99.0 78 18 110/40 95 Nasal 2.0L Cannula 01/31 0000 95 Nasal 2.0L Cannula 01/30 2054 96 Nasal 2.0L Cannula 01/30 1600 97 Nasal 3.0L Cannula 01/30 1600 97.0 83 21 128/60 97 Nasal 3.0L Cannula 01/30 1200 98 Nasal 3.0L Cannula Intake & Output 01/31 1600 01/31 0800 01/31 0000 Intake Total 328 480 Output Total 1 350 Balance 327 130 Intake, IV 208 180 Intake, Oral 120 300 Output, Stool 1 Output, Urine 0 350 Patient 197 lb Weight Exam Other Physical Findings: gen awake and alert heent ngt cvs s1, s2 lungs rare bibasilar rhonchi abd soft, tender to deep palpation, colostomy ext no edema Results Last 24 Hrs of Lab Results: Laboratory Tests 01/31/17 0500: Anion Gap 11, Estimated GFR 18 L, Glucose 121 H, Calcium 7.7 L, Phosphorus 4.4, Magnesium 1.8, Total Bilirubin 0.4, AST 13 L, ALT 27, Albumin 2.4 L, APTT 60 H, CBC w Diff NO MAN DIFF REQ, RBC 3.50 L, MCV 90.8, MCH 28.7, RDW 22.5 H, MPV 9.2, Gran % 80.7 H, Lymphocytes % 9.0 L, Monocytes % 8.8, Eosinophils % 1.3, Basophils % 0.2, Absolute Granulocytes 8.8 H, Absolute Lymphocytes 1.0 L, Absolute Monocytes 1.0 H, Absolute Eosinophils 0.1, Absolute Basophils 0, PUBS MCHC 31.6 L 01/30/175: APTT 48 H Impression/Plan Impression/Plan Impression/Plan: Impression 72 year old man * s/p exp lap & transverse colectomy/colostomy for bowel ischemia * esrd on hd * copd at baseline, chronic cough * chronic anemia secondary to ESRD and previous GI bleed * a.fib hx * DM Plan - Mucomyst nebulized BID for 72 hours, patient may decline - f/u surgery - f/u nephrology - f/u ID - anticoagulation for a.fib - ceftriaxone and flagyl at this time - extubated doing well - trc/nebs - alimentary status per surgery DVT prophylaxis at all times Tele hold
[2017-01-31 13:56] LABS: PTT 84 SEC (25-37)
--- NOTE | 2017-01-31 14:40 | NUR ---
@0800-PT ALERT AND ORIENTED. COOP. VSS. PT STATES HE IS COMFORTABLE AT THIS TIME AND DENIES NEED FOR PAIN MEDS. CONT ON 3LNC. O2SAT 95%. RHONCHI AUSCULTATED. PROD ZAFAR COUGH. WHITE CREAMY SPUTUM NOTED. NEBS PER RT. CONT ON TELE HOLD. PACED HR 70S. PACER LCW. BP STABLE. PAULINA CLEAR LIQ DIET. R ILEOSTOMY NOTED WITH SEMILIQ BROWN STOOL AND L MUCUS FISTULA NOTED TO R LOWER ABD WITH MIN AMTS OF SERROUS DRAINAGE. ABD DISTENDED, SOFT WITH HYPOACTIVE BS. SKIN INTACT EXCEPT FOR SURG INCISION TO MIDLINE ABD-ORIGINAL DSG NOTED IN PLACE-CALL PLACED TO SURGICAL PA FOR DSG ORDER OR IF SURG PA TO CHANGE DSG TODAY. MIN DRAINAGE NOTED UNDER DSG. LUE +3 EDEMA. S/P PLACEMENT OF FISTULA 01/26/17-+BRUIT AND +THRILL. PT HAS [facility] CATH TO [facility]-DSG INTACT. LAST DIALYSIS MONDAY. HEP GTT CONT TO INFUSE AT 18UNIT/KG/HR. PTT DUE AT 1230. K+3.2, MAG 1.8-AWAITING ORDERS FOR REPLACEMENT. CONT TO MONITOR CLOSELY. CALL SALTER WITHIN REACH.
--- NOTE | 2017-01-31 14:45 | NUR ---
@1000-OOB TO CHAIR ASSIST X 1, PAULINA ACTIVITY WELL. K+ REPLACED WITH 20MEQ AND MAG OX X 1. NO COMPLAINTS AT THIS TIME. CONT TO MONITOR. CALL SALTER WITHIN REACH.
[2017-01-31 16:00] VITALS: BP 118/62
[2017-02-01] VITALS: BP 130/50
[2017-02-01 02:56] LABS: ABSOLUTE BASOPHIL COUNT 0 /CUMM (0.0-0.2); ABSOLUTE EOSINOPHIL COUNT 0.2 /CUMM (0.0-0.7); ABSOLUTE GRANULOCYTE CT 7.8 /CUMM (1.4-6.5); ABSOLUTE LYMPH COUNT 1.2 /CUMM (1.2-3.4); BASOPHIL % 0.4 % (0.0-2.0); EOSINOPHIL % 1.6 % (0-5); GRANULOCYTE % 76.2 % (42.2-75.2); HEMATOCRIT 30.3 % (42-52); MEAN CORPUSCULAR HGB 28.5 PG (27.0-31.0); MEAN CORPUSCULAR HGB CONC 31.3 G/DL (33.0-37.0); MEAN PLATELET VOLUME 8.7 FL (7.4-10.4); PLATELET COUNT 120 /CUMM (130-400); RBC DISTRIBUTION WIDTH 21.9 % (11.5-14.5); RED BLOOD CELL CT 3.33 /CUMM (4.70-6.10); WHITE BLOOD CELL COUNT 10.2 /CUMM (4.8-10.8)
--- NOTE | 2017-02-01 03:00 | NUR ---
PT REQUEST THAT WRAP AROUND LEFT ARM BE REMOVED. PT C/O COLD HAND AND DISCOMFORT. PT HAS PULSE TO ARM. REMOVED AFTER SEVERAL REQUEST PER PT. LEFT ARM ELEVATED ON 2 PILLOWS
[2017-02-01 03:03] LABS: PTT 85 SEC (25-37)
--- NOTE | 2017-02-01 05:34 | PN- General Surgery ---
See Addendum Subjective Subjective: Patient seen and examined. No complaints. He is resting comfortably in bed. He denies any abdominal pain. Objective Vital Signs and I&Os Vital Signs Date Time Temp Pulse Resp B/P Pulse O2 O2 Flow FiO2 Ox Delivery Rate 02/01 022 Nasal 2.0L Cannula 02/01 0000 96 Nasal 2.0L Cannula 02/01 0000 97.8 76 20 130/50 96 Nasal 2.0L Cannula 01/31 1924 97 Nasal 2.0L Cannula 01/31 1600 97.8 72 18 118/62 95 Nasal 3.0L Cannula 01/31 1600 95 Nasal 3.0L Cannula 01/31 0800 97.6 77 18 110/58 96 Nasal 3.0L Cannula 01/31 0800 96 Nasal 3.0L Cannula 01/31 0752 98 Nasal 2.0L Cannula Intake & Output 02/01 0800 02/01 0000 01/31 1600 01/31 0800 01/31 0000 01/30 1600 Intake Total 233 960 328 480 936.6 Output Total 200 130 1 350 3010 Balance 33 830 327 130 -2073.4 Intake, IV 233 220 208 180 936.6 Intake, Oral 740 120 300 0 Output, 3000 Dialysate Output, 0 Gastric Drainage Output, Other 10 Output, Stool 200 20 1 10 Output, Urine 0 100 0 350 Patient 197 lb 176 lb Weight Physical Exam: Physical Exam: Gen.: Patient sleeping but easily arousable. He is in no acute distress. Cardiac: Regular Pulmonary: Coarse breath sounds are heard bilaterally. Abdomen: Soft and moderately distended. Midline incision is without erythema, no discharge, no drainage. Surgical chung in place. The right lower quadrant colostomy is retracted and dark, with a small amount of air and small amount of dark stool. The mucous fistula in the left lower quadrant remains pink and viable, with a scant amount of air and mucous in the bag. Hypoactive bowel sounds are heard. Results Last 48 Hours of Labs: Laboratory Tests 02/01 01/31 0220 1312 Chemistry Sodium (137 - 145 mmol/L) 138 Potassium (3.5 - 5.1 mmol/L) 3.6 Chloride (98 - 107 mmol/L) 107 Carbon Dioxide (22 - 30 mmol/L) 23 Anion Gap (5 - 16) 8 BUN (9 - 20 mg/dL) 40 H Creatinine (0.7 - 1.2 mg/dL) 5.1 *H Estimated GFR (>60 ml/min) 11 L BUN/Creatinine Ratio (7 - 25 %) 7.8 Magnesium (1.6 - 2.3 mg/dL) 2.0 Coagulation APTT (25 - 37 SEC) 85 H 84 H Hematology CBC w Diff NO MAN DIFF REQ WBC (4.8 - 10.8 /CUMM) 10.2 RBC (4.70 - 6.10 /CUMM) 3.33 L Hgb (14.0 - 18.0 G/DL) 9.5 L Hct (42 - 52 %) 30.3 L MCV (80.0 - 94.0 FL) 91.0 MCH (27.0 - 31.0 PG) 28.5 RDW (11.5 - 14.5 %) 21.9 H Plt Count (130 - 400 /CUMM) 120 L MPV (7.4 - 10.4 FL) 8.7 Gran % (42.2 - 75.2 %) 76.2 H Lymphocytes % (20.5 - 51.1 %) 11.9 L Monocytes % (1.7 - 9.3 %) 9.9 H Eosinophils % (0 - 5 %) 1.6 Basophils % (0.0 - 2.0 %) 0.4 Absolute Granulocytes (1.4 - 6.5 /CUMM) 7.8 H Absolute Lymphocytes (1.2 - 3.4 /CUMM) 1.2 Absolute Monocytes (0.10 - 0.60 /CUMM) 1.0 H Absolute Eosinophils (0.0 - 0.7 /CUMM) 0.2 Absolute Basophils (0.0 - 0.2 /CUMM) 0 PUBS MCHC (33.0 - 37.0 G/DL) 31.3 L 01/31 01/30 01/30 0500 2125 0912 Chemistry Sodium (137 - 145 mmol/L) 137 Potassium (3.5 - 5.1 mmol/L) 3.2 L Chloride (98 - 107 mmol/L) 104 Carbon Dioxide (22 - 30 mmol/L) 22 Anion Gap (5 - 16) 11 BUN (9 - 20 mg/dL) 30 H Creatinine (0.7 - 1.2 mg/dL) 3.4 H Estimated GFR (>60 ml/min) 18 L Glucose (65 - 99 mg/dL) 121 H Calcium (8.4 - 10.2 mg/dL) 7.7 L Phosphorus (2.5 - 4.5 mg/dL) 4.4 Magnesium (1.6 - 2.3 mg/dL) 1.8 Total Bilirubin (0.2 - 1.3 mg/dL) 0.4 AST (17 - 59 U/L) 13 L ALT (21 - 72 U/L) 27 Albumin (3.5 - 5.0 g/dL) 2.4 L Coagulation APTT (25 - 37 SEC) 60 H 48 H 63 H Hematology CBC w Diff NO MAN DIFF REQ WBC (4.8 - 10.8 /CUMM) 10.9 H RBC (4.70 - 6.10 /CUMM) 3.50 L Hgb (14.0 - 18.0 G/DL) 10.1 L Hct (42 - 52 %) 31.8 L MCV (80.0 - 94.0 FL) 90.8 MCH (27.0 - 31.0 PG) 28.7 RDW (11.5 - 14.5 %) 22.5 H Plt Count (130 - 400 /CUMM) 121 L MPV (7.4 - 10.4 FL) 9.2 Gran % (42.2 - 75.2 %) 80.7 H Lymphocytes % (20.5 - 51.1 %) 9.0 L Monocytes % (1.7 - 9.3 %) 8.8 Eosinophils % (0 - 5 %) 1.3 Basophils % (0.0 - 2.0 %) 0.2 Absolute Granulocytes (1.4 - 6.5 /CUMM) 8.8 H Absolute Lymphocytes (1.2 - 3.4 /CUMM) 1.0 L Absolute Monocytes (0.10 - 0.60 /CUMM) 1.0 H Absolute Eosinophils (0.0 - 0.7 /CUMM) 0.1 Absolute Basophils (0.0 - 0.2 /CUMM) 0 PUBS MCHC (33.0 - 37.0 G/DL) 31.6 L Assessment/Plan Assessment/Plan Patient is a 72-year-old male who is now postoperative day #4 status post exploratory laparotomy for acute abdomen secondary to bowel ischemia with subsequent transverse colectomy and end colostomy. Plan: -Continue clears -Continue to monitor colostomy for any signs of ischemia and monitoring for bowel output and return of bowel function, appears to be progressing slowly. -Pain control with low dose morphine and Tylenol as needed. -Heparin drip for A. fib/DVT prophylaxis. -Continue IV antibiotics. -Continue medical management per critical care team. Core Measures/Miscellaneous Venous Thromboembolism VTE Risk Factors: Age > 40, Surgery VTE Contraindications: No Contraindications VTE Diagnosis: No Beta Amanda Is Beta Amanda a Home Med? No Antibiotics Is Patient on Antibiotics? Yes If Yes: prophylaxis
--- NOTE | 2017-02-01 06:51 | PN- Housestaff ---
Subjective Follow-up For: ischemic bowel sp resection Tele-Events Since Last Visit: couplets Subjective: Pt seen this morning, he was sleeping comfortably, easily arousable. He reports that the mucomyst helps him to bring up some sputum. His wbc further coming down from 10.9 to 10.2. Hb 10.1 to 9.5 . K 3.2 to 3.6, will not further replete today, pt going for dialysis. He tolerated full liquid well and would consult surgery if OK to advance to regular diet (renal dialysis). Also would ask surgery if coumadin can be restarted if there is no further plans for surgery. The left arm swelling has markedly improved with MEREDITH wrap and elevation, pt now able to make a fist. Dr. Elise from urology did come by yesterday although he did not leave a note. Dr. Jackson has evaluated pt this morning. Review of Systems Constitutional: Reports: see HPI. Objective Last 24 Hrs of Vital Signs/I&O Vital Signs Date Time Temp Pulse Resp B/P Pulse O2 O2 Flow FiO2 Ox Delivery Rate 02/01 08 98.4 76 16 120/60 95 Nasal 3.0L Cannula 02/01 0221 Nasal 2.0L Cannula 02/01 0000 96 Nasal 2.0L Cannula 02/01 0000 97.8 76 20 130/50 96 Nasal 2.0L Cannula 01/31 1924 97 Nasal 2.0L Cannula 01/31 1600 97.8 72 18 118/62 95 Nasal 3.0L Cannula 01/31 1600 95 Nasal 3.0L Cannula Intake & Output 02/01 1600 02/01 0800 02/01 0000 Intake Total 100 233 Output Total 0 200 Balance 100 33 Intake, IV 233 Intake, Oral 100 Output, Stool 200 Output, Urine 0 0 Patient 88.11 kg Weight Physical Exam General Appearance: Alert, Oriented X3, Cooperative, No Acute Distress Cardiovascular: Regular Rate, Normal S1, Normal S2 Lungs: diffuse rhonchi improved Abdomen: Normal Bowel Sounds, Soft Current Medications: Current Medications Sig/Johnna Start time Last Medication Dose Route Stop Time Status Admin Acetaminophen 650 MG .STK-MED ONE 02/01 0029 DC PO 02/01 0030 Acetaminophen 650 MG Q4P PRN 01/31 1100 AC 02/01 PO 0812 Acetaminophen 1,000 MG Q6P PRN 01/28 1730 DC 01/31 N/A 1 UNIT IV 0211 Acetylcysteine 4 ML BID 01/31 1000 CAN INH 02/02 2201 Acetylcysteine 2 ML BID 01/31 1000 AC 01/31 INH 02/02 2201 1917 Albuterol Sulfate 3 ML TID 01/28 1600 AC 02/01 INH 0219 Calcitriol 0.25 MCG MoWeFr PRN 01/30 0815 AC IV Epoetin Guzman 4,000 UNIT MoWeFr PRN 01/30 0815 AC IV Heparin Sodium 25,000 UNIT Q24H 01/28 1800 AC 01/31 (Porcine) IV 1600 Sodium Chloride 500 ML Insulin Human Regular 0 Q6 01/28 1200 AC 01/31 SC 1338 Magnesium Sulfate 1 GM ONCE ONE 02/01 0145 CAN Dextrose/Water 100 ML IV 02/01 0544 Morphine Sulfate 2 MG Q2P PRN 01/28 1730 AC 01/31 IV 1126 Pantoprazole Sodium 40 MG DAILY 01/28 1027 AC 01/31 IV 0950 Potassium Chloride 20 MEQ ONCE ONE 02/01 0630 CAN PO 02/01 0631 Potassium Chloride 40 MEQ ONCE ONE 02/01 0630 CAN PO 02/01 0631 Potassium Chloride 20 MEQ ONCE ONE 02/01 0145 CAN PO 02/01 0146 Potassium Chloride 20 MEQ ONCE ONE 01/31 0930 DC 01/31 PO 01/31 0931 0950 Sodium Chloride 2 SPRAY Q4P PRN 01/31 0430 AC 02/01 CHULA 0021 Trazodone HCl 50 MG AT BEDTIME 01/30 2200 AC 01/31 PO 2128 Last 24 Hrs of Lab/Satnam Results Last 24 Hrs of Labs/Mics: Laboratory Tests 02/01/17 0220: Anion Gap 8, Estimated GFR 11 L, BUN/Creatinine Ratio 7.8, Magnesium 2.0, PT 12.6 H, INR 1.20 H, APTT 85 H, CBC w Diff NO MAN DIFF REQ, RBC 3.33 L, MCV 91.0, MCH 28.5, RDW 21.9 H, MPV 8.7, Gran % 76.2 H, Lymphocytes % 11.9 L, Monocytes % 9.9 H, Eosinophils % 1.6, Basophils % 0.4, Absolute Granulocytes 7.8 H, Absolute Lymphocytes 1.2, Absolute Monocytes 1.0 H, Absolute Eosinophils 0.2, Absolute Basophils 0, PUBS MCHC 31.3 L 01/31/17 1312: APTT 84 H Assessment/Plan Assessment: 72-year-old male with significant COPD, recent worsening renal failure now with end-stage renal disease on hemodialysis, paroxysmal atrial fibrillation who is on anticoagulation, chronic heart failure with preserved ejection fraction LVEF of 50%, insulin dependent diabetes probably type II, peripheral vascular disease , coronary artery disease, history of monoclonal gammaglobulin neuropathy of unknown significance, now comes in with acute onset of lower abdominal pain associated with dry heaves while on dialysis. CT abdomen shoed evidence of Portal venous air as well as air in the central mesentery and surrounding the transverse colon, likely bowel ichemia. He underwent exploratory laparotomy with transverse colectomy and end colostomy, was admitted to ICU for close monitoring of post-op hypotension. He did require levophed briefly, and his BP responded to fluid boluses. He has been successfuly extubated. BP now stable without fluids, pressors, or steroids. Stable for GM. Given his multiple medical commordities, pt should be followed by the medical team when he moves. Dr. Lopez OK with the change of service. Gastrointestinal: # S/P exploratory laparotomy with transverse colectomy and end colostomy for ischemic bowel * Ceftriaxone and flagyl 01/28 - 01/30 * Hydrocortisone 01/28 - 01/30 * Appreciate ID input * Appreciate surgery reccs, diet advanced to renal dialysis diet today * Coumadin restarted 02/01 * Dr. Lopez following # Left upper extremity swelling sp AV fistula (improved) * Vascular surgery consult appreciated, recc MEREDITH wrap, being mindful not to occlude fistula, and limb elevation. # ESRD on Dialysis MWF * Nephro on board # Left renal obstruction * Urology consulted, Dr. Elise. He saw the patient but has not left a note. Respiratory: # Hx of COPD - Succesfully extubated - Previous history of MRSA and Pseudomonas in the lower respiratory tract * cont TRC/Nebs * mucomyst X 6 doses for thick secretion # Anemia - likely 2/2 to ESRD, * H&h low but stable, cont monitoring History of Afib * Currently on IV heparin, coumadin started * Monitor electrolytes and replete as needed # Diabetes mellitus * ISS, finger stick glucose Diet: Advance as per surgery DVT ppx: alps and heparin drip (coumadin started) FULL CODE Labs: CBC for dropping h/h, BEP and mag for electrolyte repletion Consults: general surgery, nephrology, ID, vascular surgery, pulm, urology Problem List: 1. S/P colectomy Pain Ratin Pain Location: none Pain Goal: Remain pain free Pain Plan: none Tomorrow's Labs & Rationales: cbc for dropping h/h bep and mag for electrolyte repletion DVT/Prophylaxis: mechanical, pharmacological
[2017-02-01 08:00] VITALS: BP 120/60
[2017-02-01 08:25] LABS: PT 12.6 SEC (9.4-12.5)
--- NOTE | 2017-02-01 08:30 | Cons- Vascular Surgery ---
General Information and HPI Consulting Request Date of Consult: 02/01/17 Requested By: KIKI STREET,ADALBERTO May Reason for Consult: L arm swelling Source of Information: patient History of Present Illness: Presented POD 1 from outpatient LUE av fistula creation with abdominal pain. Developed significant LUE swelling. We are asked to evaluate. Allergies/Medications Allergies: Coded Allergies: No Known Allergies (01/25/17) Home Med List: Albuterol Sulfate 0.63 MG/3 ML VIAL.NEB 1 Vial INH/SALIMA TID PRN COPD (Reported ) Albuterol Sulfate (Proventil Hfa) 90 MCG HFA.AER.AD 2 PUF INH 4 TIMES/DAY PRN COPD (Reported) Allopurinol 100 MG TABLET 1 TAB PO DAILY GOUT Aspirin (Ecotrin*) 81 MG TABLET.DR 1 TAB PO DAILY Heart Health (Reported) Budesonide/Formoterol Fumarate (Symbicort 80-4.5 Mcg Inhaler) 80 MCG-4.5 MCG/ ACTUATION HFA.AER.AD 2 PUF INH BID copd Calcitriol 1 MCG/ML AMPUL 1 MCG IV MoWeFr WITH DIALYSIS Calcium Carbonate 500 MG CALCIUM (1,250 MG) TABLET 1 TAB PO TIDAC ESRD Colchicine 0.6 MG TABLET 300 MCG PO DAILY gout Folic Acid 1 MG TABLET 1 TAB PO DAILY SUPPLEMENT (Reported) Furosemide (Lasix) 80 MG TABLET 1 TAB PO DAILY CHF (Reported) Guaifenesin (Mucinex) 600 MG TAB.ER.12H 1 TAB PO BID MUCOLYTIC Insulin Lispro (Humalog) 100 UNIT/ML VIAL diabetes (Reported) Blood sugar Insulin dose < 80mg/dl No dose 80-150 mg/dl no dose 151-200mg/dl 1 unit 201-250mg/dl 2 units 251-300mg/dl 3 units 301-350mg/dl 4 units 351-400mg/dl 6 units 351-400mg/dl 6 units > 400 8 call PLEASE RESUME ON MonDec 151-200 0 Isosorbide Mononitrate (Isosorbide Mononitrate ER) 60 MG TAB.ER.24H 1 TAB PO DAILY HTN (Reported) Loratadine (Claritin) 10 MG TABLET 1 TAB PO DAILY NASAL CONGESTION Metoprolol Tartrate (Lopressor) 50 MG TABLET 1 TAB PO BID HTN (Reported) Mometasone Furoate (Nasonex) 50 MCG SPRAY.PUMP 2 SPRAY NASB DAILY NASAL CONGESTION Omeprazole 20 MG CAPSULE.DR 1 CAP PO DAILY GERD (Reported) Simvastatin (Zocor*) 20 MG TABLET 1 TAB PO QPM Cholesterol (Reported) Warfarin Sodium (Coumadin) 5 MG TABLET 0.5-1 TAB PO AD BLOOD THINNER ( Reported) please dose Coumadin as per INR. Current Medications: Current Medications Sig/Johnna Start time Last Medication Dose Route Stop Time Status Admin Acetaminophen 650 MG Q4P PRN 01/31 1100 AC 02/01 PO 0812 Acetaminophen 1,000 MG Q6P PRN 01/28 1730 DC 01/31 N/A 1 UNIT IV 0211 Acetylcysteine 4 ML BID 01/31 1000 CAN INH 02/02 2201 Acetylcysteine 2 ML BID 01/31 1000 AC 01/31 INH 02/02 2201 1917 Albuterol Sulfate 3 ML TID 01/28 1600 AC 02/01 INH 0219 Calcitriol 0.25 MCG MoWeFr PRN 01/30 0815 AC IV Epoetin Guzman 4,000 UNIT MoWeFr PRN 01/30 0815 AC IV Heparin Sodium 25,000 UNIT Q24H 01/28 1800 AC 01/31 (Porcine) IV 1600 Sodium Chloride 500 ML Insulin Human Regular 0 Q6 01/28 1200 AC 01/31 SC 1338 Magnesium Sulfate 1 GM ONCE ONE 02/01 0145 CAN Dextrose/Water 100 ML IV 02/01 0544 Morphine Sulfate 2 MG Q2P PRN 01/28 1730 AC 01/31 IV 1126 Pantoprazole Sodium 40 MG DAILY 01/28 1027 AC 01/31 IV 0950 Potassium Chloride 20 MEQ ONCE ONE 02/01 0630 CAN PO 02/01 0631 Potassium Chloride 40 MEQ ONCE ONE 02/01 0630 CAN PO 02/01 0631 Potassium Chloride 20 MEQ ONCE ONE 02/01 0145 CAN PO 02/01 0146 Potassium Chloride 20 MEQ ONCE ONE 01/31 0930 DC 01/31 PO 01/31 0931 0950 Sodium Chloride 2 SPRAY Q4P PRN 01/31 0430 AC 02/01 CHULA 0021 Trazodone HCl 50 MG AT BEDTIME 01/30 2200 AC 01/31 PO 2128 Past History Medical History Blood Transfusion Hx: Yes Neurological: NONE Cardiovascular: AFIB, CAD, cardiomyopathy, hypertension, hyperlipidemia, systolic CHF, PACEMAKER/DEFIBRILLATOR Respiratory: COPD, obstructive sleep apnea Gastrointestinal: GERD, he had a bleeding polyp in November of this year coupled with a nonbleeding angiodysplasia Renal: ESRD on HD Musculoskeletal: gout Psychiatric: NONE Endocrine: diabetes Blood Disorders: anemia, MGUS Cancer(s): NONE WORK AND FAMILY LIFE CONSULTANT/Reproductive: NONE Surgical History Pertinent Surgical History: CABG, cholecystectomy, PACEMAKER,( AICD) Family History Relations & Conditions If Any: MOTHER (Lung cancer). Psychosocial History Where Do You Live? Home Who Do You Live With? self Services at Home: None Primary Language: Omani Smoking Status: Former Smoker ETOH Use: denies use Illicit Drug Use: denies illicit drug use Functional Ability ADLs Independent: dressing, eating, toileting, bathing. Ambulation: independent IADLs Independent: shopping, housework, finances, food prep, telephone, transportation , medication admin. Review of Systems Review of Systems: Left arm swelling Exam & Diagnostic Data Vital Signs and I&O Vital Signs Date Time Temp Pulse Resp B/P Pulse O2 O2 Flow FiO2 Ox Delivery Rate 02/01 0221 Nasal 2.0L Cannula 02/01 0000 96 Nasal 2.0L Cannula 02/01 0000 97.8 76 20 130/50 96 Nasal 2.0L Cannula 01/31 1924 97 Nasal 2.0L Cannula 01/31 1600 97.8 72 18 118/62 95 Nasal 3.0L Cannula 01/31 1600 95 Nasal 3.0L Cannula Intake & Output 02/01 1600 02/01 0800 02/01 0000 01/31 1600 01/31 0800 01/31 0000 Intake Total 100 233 960 328 480 Output Total 0 200 130 1 350 Balance 100 33 830 327 130 Intake, IV 233 220 208 180 Intake, Oral 100 740 120 300 Output, Other 10 Output, Stool 200 20 1 Output, Urine 0 0 100 0 350 Patient 88.11 kg 89.131 kg Weight Physical Exam: LUE with mild edema present, improved per the patient. I am unable to palpate pulses at the wrist (baseline was faintly palpable ulnar pulse) There is a palpable thrill present into the upper arm. The hand is warm and well perfused without pain. Assessment/Plan Assessment/Plan L upper extremity swelling within normal limits for post-op fistula. Recommend gentle cynthia wrap, being mindful not to occlude fistula, and limb elevation. Follow up post operative evaluation after discharge. Consult Acknowledgment - Thank you for your consult request. Attending MD Review Statement Attending Statement Attending MD Statement: examined this patient
--- NOTE | 2017-02-01 10:10 | PN- Nephrology ---
Assessment/Plan Assessment: ESRD: Stable from renal standpoint. Epogen & calcitriol IV 3x/week with dialysis. HD this afternoon as per [facility] schedule. Hypokalemia: improved to 3.6. Will be dialyzed on 3K bath to minimize K+ removal Transverse colitis s/p transverse colectomy & colostomy & mucous fistula. Sepsis improved; now off pressors and hemodynamically stable. Blood cultures negative. Suggestion: HD this afternoon; will be dialzyed on 3K/3Ca bath Will follow along with you Froy Vasquez MD Subjective Subjective: No acute events OOB to chair taking soft foods Review of Systems: no fever/chills no sob/chest pain Objective Vital Signs and I&Os Vital Signs Date Time Temp Pulse Resp B/P Pulse O2 O2 Flow FiO2 Ox Delivery Rate 02/01 0934 95 Nasal 2.0L Cannula 02/01 0800 98.4 76 16 120/60 95 Nasal 3.0L Cannula 02/01 0800 95 Nasal 3.0L Cannula 02/01 0221 Nasal 2.0L Cannula 02/01 0000 96 Nasal 2.0L Cannula 02/01 0000 97.8 76 20 130/50 96 Nasal 2.0L Cannula 01/31 1924 97 Nasal 2.0L Cannula 01/31 1600 97.8 72 18 118/62 95 Nasal 3.0L Cannula 01/31 1600 95 Nasal 3.0L Cannula Intake & Output 02/01 1600 02/01 0400 01/31 1600 01/31 0400 01/30 1600 01/30 0400 Intake Total 602 773 5430 480 1812.6 987 Output Total 0 200 943 736 7959 60 Balance 290 91 0674 130 -1282.4 927 Intake, IV 233 160 836 8878.6 987 Intake, Oral 100 860 300 0 Output, 3000 Dialysate Output, 75 50 Gastric Drainage Output, Other 10 Output, Stool 200 21 20 10 Output, Urine 0 0 100 350 Patient 194 lb 197 lb 176 lb Weight Physical Exam: NAD no edema LUE AVF+thrill/bruit CTAB S1 S2 +abd well tenderness, in mid-abdome Current Medications: Current Medications Sig/Johnna Start time Last Medication Dose Route Stop Time Status Admin Acetaminophen 650 MG .STK-MED ONE 02/01 0029 DC PO 02/01 0030 Acetaminophen 650 MG Q4P PRN 01/31 1100 AC 02/01 PO 0812 Acetaminophen 1,000 MG Q6P PRN 01/28 1730 DC 01/31 N/A 1 UNIT IV 0211 Acetylcysteine 4 ML BID 01/31 1000 CAN INH 02/02 2201 Acetylcysteine 2 ML BID 01/31 1000 AC 02/01 INH 02/02 220 0931 Albuterol Sulfate 3 ML TID 01/28 1600 AC 02/01 INH 0929 Calcitriol 0.25 MCG MoWeFr PRN 01/30 0815 AC IV Epoetin Guzman 4,000 UNIT MoWeFr PRN 01/30 0815 AC IV Heparin Sodium 25,000 UNIT Q24H 01/28 1800 AC 01/31 (Porcine) IV 1600 Sodium Chloride 500 ML Insulin Aspart 0 AT BEDTIME 02/01 2200 AC SC Insulin Aspart 0 TIDAC 02/01 1200 AC SC Insulin Human Regular 0 Q6 01/28 1200 DC 01/31 SC 1338 Magnesium Sulfate 1 GM ONCE ONE 02/01 0145 CAN Dextrose/Water 100 ML IV 02/01 0544 Morphine Sulfate 2 MG Q2P PRN 01/28 1730 AC 01/31 IV 1126 Pantoprazole Sodium 40 MG DAILY 01/28 1027 AC 01/31 IV 0950 Potassium Chloride 20 MEQ ONCE ONE 02/01 0630 CAN PO 02/01 0631 Potassium Chloride 40 MEQ ONCE ONE 02/01 0630 CAN PO 02/01 0631 Potassium Chloride 20 MEQ ONCE ONE 02/01 0145 CAN PO 02/01 0146 Sodium Chloride 2 SPRAY Q4P PRN 01/31 0430 AC 02/01 CHULA 0021 Trazodone HCl 50 MG AT BEDTIME 01/30 2200 AC 01/31 PO 2128 Warfarin Sodium 5 MG COUMADIN 1700 ONE 02/01 1700 AC PO 02/01 1701 Results Pertinent Lab Results: Laboratory Tests 02/01 01/31 0220 1312 Chemistry Sodium (137 - 145 mmol/L) 138 Potassium (3.5 - 5.1 mmol/L) 3.6 Chloride (98 - 107 mmol/L) 107 Carbon Dioxide (22 - 30 mmol/L) 23 Anion Gap (5 - 16) 8 BUN (9 - 20 mg/dL) 40 H Creatinine (0.7 - 1.2 mg/dL) 5.1 *H Estimated GFR (>60 ml/min) 11 L BUN/Creatinine Ratio (7 - 25 %) 7.8 Magnesium (1.6 - 2.3 mg/dL) 2.0 Coagulation PT (9.4 - 12.5 SEC) 12.6 H INR (0.90 - 1.17) 1.20 H APTT (25 - 37 SEC) 85 H 84 H Hematology CBC w Diff NO MAN DIFF REQ WBC (4.8 - 10.8 /CUMM) 10.2 RBC (4.70 - 6.10 /CUMM) 3.33 L Hgb (14.0 - 18.0 G/DL) 9.5 L Hct (42 - 52 %) 30.3 L MCV (80.0 - 94.0 FL) 91.0 MCH (27.0 - 31.0 PG) 28.5 RDW (11.5 - 14.5 %) 21.9 H Plt Count (130 - 400 /CUMM) 120 L MPV (7.4 - 10.4 FL) 8.7 Gran % (42.2 - 75.2 %) 76.2 H Lymphocytes % (20.5 - 51.1 %) 11.9 L Monocytes % (1.7 - 9.3 %) 9.9 H Eosinophils % (0 - 5 %) 1.6 Basophils % (0.0 - 2.0 %) 0.4 Absolute Granulocytes (1.4 - 6.5 /CUMM) 7.8 H Absolute Lymphocytes (1.2 - 3.4 /CUMM) 1.2 Absolute Monocytes (0.10 - 0.60 /CUMM) 1.0 H Absolute Eosinophils (0.0 - 0.7 /CUMM) 0.2 Absolute Basophils (0.0 - 0.2 /CUMM) 0 PUBS MCHC (33.0 - 37.0 G/DL) 31.3 L 01/31 01/30 01/30 0500 2125 0912 Chemistry Sodium (137 - 145 mmol/L) 137 Potassium (3.5 - 5.1 mmol/L) 3.2 L Chloride (98 - 107 mmol/L) 104 Carbon Dioxide (22 - 30 mmol/L) 22 Anion Gap (5 - 16) 11 BUN (9 - 20 mg/dL) 30 H Creatinine (0.7 - 1.2 mg/dL) 3.4 H Estimated GFR (>60 ml/min) 18 L Glucose (65 - 99 mg/dL) 121 H Calcium (8.4 - 10.2 mg/dL) 7.7 L Phosphorus (2.5 - 4.5 mg/dL) 4.4 Magnesium (1.6 - 2.3 mg/dL) 1.8 Total Bilirubin (0.2 - 1.3 mg/dL) 0.4 AST (17 - 59 U/L) 13 L ALT (21 - 72 U/L) 27 Albumin (3.5 - 5.0 g/dL) 2.4 L Coagulation APTT (25 - 37 SEC) 60 H 48 H 63 H Hematology CBC w Diff NO MAN DIFF REQ WBC (4.8 - 10.8 /CUMM) 10.9 H RBC (4.70 - 6.10 /CUMM) 3.50 L Hgb (14.0 - 18.0 G/DL) 10.1 L Hct (42 - 52 %) 31.8 L MCV (80.0 - 94.0 FL) 90.8 MCH (27.0 - 31.0 PG) 28.7 RDW (11.5 - 14.5 %) 22.5 H Plt Count (130 - 400 /CUMM) 121 L MPV (7.4 - 10.4 FL) 9.2 Gran % (42.2 - 75.2 %) 80.7 H Lymphocytes % (20.5 - 51.1 %) 9.0 L Monocytes % (1.7 - 9.3 %) 8.8 Eosinophils % (0 - 5 %) 1.3 Basophils % (0.0 - 2.0 %) 0.2 Absolute Granulocytes (1.4 - 6.5 /CUMM) 8.8 H Absolute Lymphocytes (1.2 - 3.4 /CUMM) 1.0 L Absolute Monocytes (0.10 - 0.60 /CUMM) 1.0 H Absolute Eosinophils (0.0 - 0.7 /CUMM) 0.1 Absolute Basophils (0.0 - 0.2 /CUMM) 0 PUBS MCHC (33.0 - 37.0 G/DL) 31.6 L 01/30 01/29 0359 2100 Chemistry Sodium (137 - 145 mmol/L) 142 Potassium (3.5 - 5.1 mmol/L) 4.3 Chloride (98 - 107 mmol/L) 111 H Carbon Dioxide (22 - 30 mmol/L) 17 L Anion Gap (5 - 16) 14 BUN (9 - 20 mg/dL) 54 H Creatinine (0.7 - 1.2 mg/dL) 5.5 *H Estimated GFR (>60 ml/min) 10 L Glucose (65 - 99 mg/dL) 164 H Calcium (8.4 - 10.2 mg/dL) 8.6 Phosphorus (2.5 - 4.5 mg/dL) 7.8 H Magnesium (1.6 - 2.3 mg/dL) 2.6 H Total Bilirubin (0.2 - 1.3 mg/dL) 0.4 AST (17 - 59 U/L) 17 ALT (21 - 72 U/L) 29 Albumin (3.5 - 5.0 g/dL) 2.5 L Coagulation APTT (25 - 37 SEC) 71 H Hematology CBC w Diff NO MAN DIFF REQ WBC (4.8 - 10.8 /CUMM) 13.1 H RBC (4.70 - 6.10 /CUMM) 3.68 L Hgb (14.0 - 18.0 G/DL) 10.5 L Hct (42 - 52 %) 33.5 L MCV (80.0 - 94.0 FL) 91.2 MCH (27.0 - 31.0 PG) 28.7 RDW (11.5 - 14.5 %) 23.1 H Plt Count (130 - 400 /CUMM) 117 L MPV (7.4 - 10.4 FL) 9.7 Gran % (42.2 - 75.2 %) 91.0 H Lymphocytes % (20.5 - 51.1 %) 2.4 L Monocytes % (1.7 - 9.3 %) 6.2 Eosinophils % (0 - 5 %) 0.4 Basophils % (0.0 - 2.0 %) 0 L Absolute Granulocytes (1.4 - 6.5 /CUMM) 12.0 H Absolute Lymphocytes (1.2 - 3.4 /CUMM) 0.3 L Absolute Monocytes (0.10 - 0.60 /CUMM) 0.8 H Absolute Eosinophils (0.0 - 0.7 /CUMM) 0 Absolute Basophils (0.0 - 0.2 /CUMM) 0 PUBS MCHC (33.0 - 37.0 G/DL) 31.4 L
--- NOTE | 2017-02-01 10:27 | Patient Discharge Instructions ---
See Addendum Discharge Instructions General Discharge Information You were seen/treated for: exploratory laparotomy with transverse colectomy and end colostomy for ischemic bowel Special Instructions: Please follow up with your PCP within one week of discharge. Please follow up with surgery upon discharge. Ct to take your medications as prescribed. Activity Full Activity/No Limits: No Activity Self Limited: Yes Acute Coronary Syndrome Inclusion Criteria At DC or during hospital stay patient has or had the following: ACS DIAGNOSIS No Discharge Core Measures Meds if any: Prescribed or Continued at Discharge Meds if any: NOT Prescribed or Continued at Discharge Congestive Heart Failure Inclusion Criteria At DC or during hospital stay patient has or had the following: CHF DIAGNOSIS No Discharge Core Measures Meds if any: Prescribed or Continued at Discharge Meds if any: NOT Prescribed or Continued at Discharge Cerebrovascular accident Inclusion Criteria At DC or during hospital stay patient has or had the following: CVA/TIA Diagnosis No Discharge Core Measures Meds if any: Prescribed or Continued at Discharge Meds if any: NOT Prescribed or Continued at Discharge Venous thromboembolism Inclusion Criteria VTE Diagnosis No VTE Type NONE VTE Confirmed by (Test) NONE Discharge Core Measures - Per Current guidelines, there needs to be overlap - treatment for the first 5 days of Warfarin therapy. - If discharged on Warfarin prior to 5 days of - overlap therapy, the patient will need to be - assessed for post discharge needs including - *Post discharge parental anticoagulation - *Warfarin and/or parental anticoagulation education - *Follow up date to check INR post discharge At least 5 days overlap therapy as Inpatient No Meds if any: Prescribed or Continued at Discharge Note: Overlap Therapy is Warfarin and Anticoagulant Meds if any: NOT Prescribed or Continued at Discharge
--- NOTE | 2017-02-01 10:30 | Transfer of Care Summary ---
Hospital Course Course Hospital Course: 72-year-old male with significant COPD, recent worsening renal failure now with end-stage renal disease on hemodialysis, recent AV fistula, paroxysmal atrial fibrillation who is on anticoagulation, chronic heart failure with preserved ejection fraction LVEF of 50%, insulin dependent diabetes probably type II, peripheral vascular disease, coronary artery disease, history of monoclonal gammaglobulin neuropathy of unknown significance, was admitted to surgery service for ischemic bowel, for which he underwent exploratory laparotomy with transverse colectomy and end colostomy. Post operatively, he was hypotensive, and was anticipated to be a difficult extubation. He was managed in the ICU post op. His blood pressure was responsive to fluid boluses, he was on levophed for less than a day, and received 2 days of steroids , with blood pressure currently stable. He was extubated post op day 0 (the same day) and his respiratory status has been stable. His diet has been advanced to renal dialysis diet. He is on IV heparin with warfarin for atrial fibrillation, once his INR is therapeutic, IV heparin can be discontinued. He is noted to have left renal obstruction, but he does not make urine at baseline (or oligouric), urology was consulted. Dr. Elise has seen him, and recommended conservative management of the stone in absence of sepsis given his medical commordities. He has a recent AV fistula on the left arm, with his left arm being edematous, but has improved with MEREDITH wrap and elevation. Dr. Jackson has been consulted. Given his multiple medical commordities, pt should be followed by the medical team when he moves to the floor. Dr. Lopez OK with the change of service. Assessment/Plan: # S/P exploratory laparotomy with transverse colectomy and end colostomy for ischemic bowel * Ceftriaxone and flagyl 01/28 - 01/30 * Hydrocortisone 01/28 - 01/30 * Appreciate ID input * Appreciate surgery reccs, diet advanced to renal dialysis diet today * Dr. Lopez following # History of Afib * Currently on IV heparin, coumadin started * Monitor electrolytes and replete as needed # Left upper extremity swelling sp AV fistula (improved) * Vascular surgery consult appreciated, recc MEREDITH wrap, being mindful not to occlude fistula, and limb elevation. # ESRD on Dialysis MWF * Nephro on board # Left renal obstruction - asymptomatic obstructed left kidney due to UPJ stone. Risk of surgery for stone removal/stent without sepsis outweighs benefits for this ESRD-dialysis pt. # Hx of COPD - Succesfully extubated - Previous history of MRSA and Pseudomonas in the lower respiratory tract * cont TRC/Nebs * mucomyst X 6 doses for thick secretion # Anemia - likely 2/2 to ESRD, * H&h low but stable, cont monitoring # Diabetes mellitus * ISS, finger stick glucose Diet: Advance as per surgery DVT ppx: alps and heparin drip (coumadin started) FULL CODE Labs: CBC for dropping h/h, BEP and mag for electrolyte repletion Consults: general surgery, nephrology, ID, vascular surgery, pulm, urology Attending MD Review Statement Documenting Attending: CRISTY STREET,HOLLI
--- NOTE | 2017-02-01 10:47 | PN- Pulmonary ---
Subjective HPI/Critical Care Issues: pt seen and examined left arm swelling improved feeling better on mucomyst using IST no pain no n/v/d/c Objective Current Medications: Current Medications Sig/Johnna Start time Last Medication Dose Route Stop Time Status Admin Acetaminophen 650 MG .STK-MED ONE 02/01 0029 DC PO 02/01 0030 Acetaminophen 650 MG Q4P PRN 01/31 1100 AC 02/01 PO 0812 Acetaminophen 1,000 MG Q6P PRN 01/28 1730 DC 01/31 N/A 1 UNIT IV 0211 Acetylcysteine 2 ML BID 01/31 1000 AC 02/01 INH 02/02 2201 0931 Albuterol Sulfate 3 ML TID 01/28 1600 AC 02/01 INH 0929 Calcitriol 0.25 MCG MoWeFr PRN 01/30 0815 AC IV Epoetin Guzman 4,000 UNIT MoWeFr PRN 01/30 0815 AC IV Heparin Sodium 25,000 UNIT Q24H 01/28 1800 AC 01/31 (Porcine) IV 1600 Sodium Chloride 500 ML Insulin Aspart 0 AT BEDTIME 02/01 2200 AC SC Insulin Aspart 0 TIDAC 02/01 1200 AC SC Insulin Human Regular 0 Q6 01/28 1200 DC 01/31 SC 1338 Magnesium Sulfate 1 GM ONCE ONE 02/01 0145 CAN Dextrose/Water 100 ML IV 02/01 0544 Morphine Sulfate 2 MG Q2P PRN 01/28 1730 AC 01/31 IV 1126 Pantoprazole Sodium 40 MG DAILY 01/28 1027 AC 02/01 IV 1012 Potassium Chloride 20 MEQ ONCE ONE 02/01 0630 CAN PO 02/01 0631 Potassium Chloride 40 MEQ ONCE ONE 02/01 0630 CAN PO 02/01 0631 Potassium Chloride 20 MEQ ONCE ONE 02/01 0145 CAN PO 02/01 0146 Sodium Chloride 2 SPRAY Q4P PRN 01/31 0430 AC 02/01 CHULA 0021 Trazodone HCl 50 MG AT BEDTIME 01/30 2200 AC 01/31 PO 2128 Warfarin Sodium 5 MG COUMADIN 1700 ONE 02/01 1700 AC PO 02/01 1701 Vital Signs & I&O Last 24 Hrs of Vitals and I&O: Vital Signs Date Time Temp Pulse Resp B/P Pulse O2 O2 Flow FiO2 Ox Delivery Rate 02/01 0934 95 Nasal 2.0L Cannula 02/01 0800 98.4 76 16 120/60 95 Nasal 3.0L Cannula 02/01 0800 95 Nasal 3.0L Cannula 02/01 0221 Nasal 2.0L Cannula 02/01 0000 96 Nasal 2.0L Cannula 02/01 0000 97.8 76 20 130/50 96 Nasal 2.0L Cannula 01/31 1924 97 Nasal 2.0L Cannula 01/31 1600 97.8 72 18 118/62 95 Nasal 3.0L Cannula 01/31 1600 95 Nasal 3.0L Cannula Intake & Output 02/01 1600 02/01 0800 02/01 0000 Intake Total 100 233 Output Total 0 200 Balance 100 33 Intake, IV 233 Intake, Oral 100 Output, Stool 200 Output, Urine 0 0 Patient 194 lb Weight Exam Other Physical Findings: gen awake and alert heent ngt cvs s1, s2 lungs rare bibasilar rhonchi abd soft, tender to deep palpation, colostomy ext no edema Results Last 24 Hrs of Lab Results: Laboratory Tests 02/01/17 0220: Anion Gap 8, Estimated GFR 11 L, BUN/Creatinine Ratio 7.8, Magnesium 2.0, PT 12.6 H, INR 1.20 H, APTT 85 H, CBC w Diff NO MAN DIFF REQ, RBC 3.33 L, MCV 91.0, MCH 28.5, RDW 21.9 H, MPV 8.7, Gran % 76.2 H, Lymphocytes % 11.9 L, Monocytes % 9.9 H, Eosinophils % 1.6, Basophils % 0.4, Absolute Granulocytes 7.8 H, Absolute Lymphocytes 1.2, Absolute Monocytes 1.0 H, Absolute Eosinophils 0.2, Absolute Basophils 0, PUBS MCHC 31.3 L 01/31/17 1312: APTT 84 H Impression/Plan Impression/Plan Impression/Plan: Impression 72 year old man * s/p exp lap & transverse colectomy/colostomy for bowel ischemia * esrd on hd * copd at baseline, chronic cough * chronic anemia secondary to ESRD and previous GI bleed * a.fib hx * DM Plan - Mucomyst nebulized BID for 72 hours, stop 02/02 - f/u surgery, nephrology, f/u ID - anticoagulation for a.fib - ceftriaxone and flagyl at this time - trc/nebs - alimentary status per surgery DVT prophylaxis at all times Okay for GM
--- NOTE | 2017-02-01 12:52 | NUR ---
@0800-PT ALERT AND ORIENTED. COOP. MORPHINE, TYELENOL PRN FOR PAIN CONTROL. CONT ON NC 3L. O2SAT 96% ZAFAR, PROD COUGH-THICK BROWN IN COLOR. RHONCHI/WHEEZES AUSCULTATED, NEBS PER RT. PT REMAINS TELE HOLD. PACED HR 70S. PACER/AICD TO LCW. BP STABLE. PT PAULINA FULL LIQ DIET FOR BREAKFAST-? ADVANCE FOR LUNCH. COLOSTOMY TO R SIDE NOTED WITH FLAT PINK STOMA, SEMILIQ BROWN STOOL NOTED. PT ALSO HAS L MUCUS FISTULA TO OSTOMY BAG-MIN SERROUS DRAINAGE NOTED. PT VOIDS IN URINAL BID. HEMODIALYSIS MWF-TO RECIEVE TODAY. ASHCATH TO RCW, DSG INTACT. MIDLINE ABD SURG INCISION CDI. LLE REMAINS SWOLLEN BUT IMPROVED COMPARED TO YEST-PT REF MEREDITH BANDAGE WRAP AT THIS TIME-WILL ATTEMPT TO PLACE AGAIN DURING SHIFT. HEP GTT CONT TO INFUSE AT 18UNIT/KG/HR. NEXT PTT AT 2PM. INR ADDED TO AM LABS-? DOSE COUONADIN TODAY. CONT TO MONITOR CLOSELY, CALL SALTER WITHIN REACH.
--- NOTE | 2017-02-01 13:01 | NUR ---
@1100-PT OOB TO CHAIR, REPEAT MRSA NARES SWAB AND LRC SENT AT THIS TIME. PT DOWNGRADED TO GENMED. COUMADIN 5MG ORD TO BE ADMINISTERED AT 5PM. @1200-DIALYSIS AT BEDSIDE. PT RECIEVED IV MORPHINE AT 1130 FOR C/O ABD PAIN-IMPROVED PAIN LEVEL AT THIS TIME. CONT TO MONITOR, CALL SALTER WITHIN REACH.
--- NOTE | 2017-02-01 13:13 | PN- Infect Dx ---
Subjective Subjective: Afebrile without complaints Objective Last 24 Hrs of Vital Signs/I&O Vital Signs Date Time Temp Pulse Resp B/P Pulse O2 O2 Flow FiO2 Ox Delivery Rate 02/01 1223 Nasal 2.0L Cannula 02/01 0934 95 Nasal 2.0L Cannula 02/01 08 98.4 76 16 120/60 95 Nasal 3.0L Cannula 02/01 0800 95 Nasal 3.0L Cannula 02/01 0221 Nasal 2.0L Cannula 02/01 0000 96 Nasal 2.0L Cannula 02/01 0000 97.8 76 20 130/50 96 Nasal 2.0L Cannula 01/31 1924 97 Nasal 2.0L Cannula 01/31 1600 97.8 72 18 118/62 95 Nasal 3.0L Cannula 01/31 1600 95 Nasal 3.0L Cannula Intake & Output 02/01 1600 02/01 0800 02/01 0000 Intake Total 100 233 Output Total 0 200 Balance 100 33 Intake, IV 233 Intake, Oral 100 Output, Stool 200 Output, Urine 0 0 Patient 194 lb Weight Physical Exam Other Physical Findings: He appears comfortable in no acute distress Lungs bilateral rhonchi Heart regular rhythm with no murmur Abdomen is mildly distended, nontender to palpation; colostomy with stool and mucous fistula with blood and mucus Extremities decreased edema of the left upper extremity; positive bruit and thrill over the fistula Results Last 24 Hours of Lab Results: Laboratory Tests 02/01 01/31 0220 1312 Chemistry Sodium (137 - 145 mmol/L) 138 Potassium (3.5 - 5.1 mmol/L) 3.6 Chloride (98 - 107 mmol/L) 107 Carbon Dioxide (22 - 30 mmol/L) 23 Anion Gap (5 - 16) 8 BUN (9 - 20 mg/dL) 40 H Creatinine (0.7 - 1.2 mg/dL) 5.1 *H Estimated GFR (>60 ml/min) 11 L BUN/Creatinine Ratio (7 - 25 %) 7.8 Magnesium (1.6 - 2.3 mg/dL) 2.0 Coagulation PT (9.4 - 12.5 SEC) 12.6 H INR (0.90 - 1.17) 1.20 H APTT (25 - 37 SEC) 85 H 84 H Hematology CBC w Diff NO MAN DIFF REQ WBC (4.8 - 10.8 /CUMM) 10.2 RBC (4.70 - 6.10 /CUMM) 3.33 L Hgb (14.0 - 18.0 G/DL) 9.5 L Hct (42 - 52 %) 30.3 L MCV (80.0 - 94.0 FL) 91.0 MCH (27.0 - 31.0 PG) 28.5 RDW (11.5 - 14.5 %) 21.9 H Plt Count (130 - 400 /CUMM) 120 L MPV (7.4 - 10.4 FL) 8.7 Gran % (42.2 - 75.2 %) 76.2 H Lymphocytes % (20.5 - 51.1 %) 11.9 L Monocytes % (1.7 - 9.3 %) 9.9 H Eosinophils % (0 - 5 %) 1.6 Basophils % (0.0 - 2.0 %) 0.4 Absolute Granulocytes (1.4 - 6.5 /CUMM) 7.8 H Absolute Lymphocytes (1.2 - 3.4 /CUMM) 1.2 Absolute Monocytes (0.10 - 0.60 /CUMM) 1.0 H Absolute Eosinophils (0.0 - 0.7 /CUMM) 0.2 Absolute Basophils (0.0 - 0.2 /CUMM) 0 PUBS MCHC (33.0 - 37.0 G/DL) 31.3 L Last 24 Hours of Satnam Results: No new cultures Assessment/Plan Impression: Stable status post transverse colectomy 4 days ago for mesenteric ischemia/ gangrenous transverse colon, with temperatures and white blood cell count remaining normal off antibiotics. His left upper extremity swelling has improved with elevation and Dilan wraps, with vascular surgery evaluation noted and appreciated. His left kidney obstruction may present a risk for infection at some point and should be evaluated. Suggestion: 1. Urology evaluation regarding his left kidney obstruction 2. Continue to follow off antibiotics
--- NOTE | 2017-02-01 13:15 | Cons- Urology ---
General Information and HPI Consulting Request Date of Consult: 01/31/17 Requested By: MD MERCEDES Reason for Consult: left hydro with renal stone. ESRD Source of Information: patient, old records Exam Limitations: no limitations History of Present Illness: 72-year-old gentleman post bowel resection admitted to ICU for close monitoring. Was noted to have left kidney stones with mild left hydronephrosis without evidence of UTI, and asymptomatic with this kidney stone. These findings were discussed with the patient at length and offered surgical procedures including ureteroscopy, ESWL, PCNL with likely having risks greater than benefits of these procedures as the patient is already on dialysis. The patient agrees that if he does become symptomatic, or septic with particular focus on the left obstructed kidney, then procedure for the obstructed left kidney would be in order. Allergies/Medications Allergies: Coded Allergies: No Known Allergies (01/25/17) Home Med List: Albuterol Sulfate 0.63 MG/3 ML VIAL.NEB 1 Vial INH/SALIMA TID PRN COPD (Reported ) Albuterol Sulfate (Proventil Hfa) 90 MCG HFA.AER.AD 2 PUF INH 4 TIMES/DAY PRN COPD (Reported) Allopurinol 100 MG TABLET 1 TAB PO DAILY GOUT Aspirin (Ecotrin*) 81 MG TABLET.DR 1 TAB PO DAILY Heart Health (Reported) Budesonide/Formoterol Fumarate (Symbicort 80-4.5 Mcg Inhaler) 80 MCG-4.5 MCG/ ACTUATION HFA.AER.AD 2 PUF INH BID copd Calcitriol 1 MCG/ML AMPUL 1 MCG IV MoWeFr WITH DIALYSIS Calcium Carbonate 500 MG CALCIUM (1,250 MG) TABLET 1 TAB PO TIDAC ESRD Colchicine 0.6 MG TABLET 300 MCG PO DAILY gout Folic Acid 1 MG TABLET 1 TAB PO DAILY SUPPLEMENT (Reported) Furosemide (Lasix) 80 MG TABLET 1 TAB PO DAILY CHF (Reported) Guaifenesin (Mucinex) 600 MG TAB.ER.12H 1 TAB PO BID MUCOLYTIC Insulin Lispro (Humalog) 100 UNIT/ML VIAL diabetes (Reported) Blood sugar Insulin dose < 80mg/dl No dose 80-150 mg/dl no dose 151-200mg/dl 1 unit 201-250mg/dl 2 units 251-300mg/dl 3 units 301-350mg/dl 4 units 351-400mg/dl 6 units 351-400mg/dl 6 units > 400 8 call PLEASE RESUME ON MonDec 151-200 0 Isosorbide Mononitrate (Isosorbide Mononitrate ER) 60 MG TAB.ER.24H 1 TAB PO DAILY HTN (Reported) Loratadine (Claritin) 10 MG TABLET 1 TAB PO DAILY NASAL CONGESTION Metoprolol Tartrate (Lopressor) 50 MG TABLET 1 TAB PO BID HTN (Reported) Mometasone Furoate (Nasonex) 50 MCG SPRAY.PUMP 2 SPRAY NASB DAILY NASAL CONGESTION Omeprazole 20 MG CAPSULE.DR 1 CAP PO DAILY GERD (Reported) Simvastatin (Zocor*) 20 MG TABLET 1 TAB PO QPM Cholesterol (Reported) Warfarin Sodium (Coumadin) 5 MG TABLET 0.5-1 TAB PO AD BLOOD THINNER ( Reported) please dose Coumadin as per INR. Current Medications: Current Medications Sig/Johnna Start time Last Medication Dose Route Stop Time Status Admin Acetaminophen 650 MG Q4P PRN 01/31 1100 AC 02/05 PO 0113 Albuterol Sulfate 2 PUF Q4P PRN 02/06 0800 AC 02/06 INH 1313 Albuterol Sulfate 3 ML EVERY 4 HRS/AWAKE 02/05 1600 AC 02/09 INH 1605 Amoxicillin/ 500 MG 5PM 02/09 1700 AC Clavulanate Potassium PO Amoxicillin/ 500 MG ONCE ONE 02/08 1800 DC 02/08 Clavulanate Potassium PO 02/08 1801 2056 Ampicillin Sodium/ 3,000 MG Q24H 02/06 1800 DC 02/07 Sulbactam Sodium IV 1759 Sodium Chloride 100 ML Calcitriol 0.25 MCG MoWeFr PRN 01/30 0815 AC IV Diclofenac Sodium 1 MAI 4 TIMES/DAY 02/05 1400 AC 02/09 TOP 0900 Epoetin Guzman 4,000 UNIT MoWeFr PRN 01/30 0815 AC IV Furosemide 80 MG DAILY 02/08 1138 AC 02/09 PO 1536 Insulin Aspart 0 AT BEDTIME 02/01 2200 AC 02/08 SC 2204 Insulin Aspart 0 TIDAC 02/01 1200 AC 02/09 SC 1537 Pantoprazole Sodium 40 MG DAILY 01/28 1027 AC 02/08 IV 1407 Prednisone 40 MG DAILY 02/06 1616 AC 02/09 PO 1536 Sodium Chloride 2 SPRAY Q4P PRN 01/31 0430 AC 02/05 CHULA 2133 Trazodone HCl 50 MG AT BEDTIME 01/30 2200 AC / PO 2055 Warfarin Sodium 5 MG COUMADIN 1700 ONE 02/09 1700 AC PO 02/09 1701 Warfarin Sodium 5 MG COUMADIN 1700 ONE 02/08 1700 DC 02/08 PO 02/08 1701 1722 Past History Medical History Blood Transfusion Hx: Yes Neurological: NONE Cardiovascular: AFIB, CAD, cardiomyopathy, hypertension, hyperlipidemia, systolic CHF, PACEMAKER/DEFIBRILLATOR Respiratory: COPD, obstructive sleep apnea Gastrointestinal: GERD, he had a bleeding polyp in November of this year coupled with a nonbleeding angiodysplasia Renal: ESRD on HD Musculoskeletal: gout Psychiatric: NONE Endocrine: diabetes Blood Disorders: anemia, MGUS Cancer(s): NONE SCISSORS GRINDER/Reproductive: NONE Surgical History Pertinent Surgical History: CABG, cholecystectomy, PACEMAKER,( AICD) Family History Relations & Conditions If Any: MOTHER (Lung cancer). Psychosocial History Where Do You Live? Home Who Do You Live With? self Services at Home: None Primary Language: Swazi Smoking Status: Former Smoker ETOH Use: denies use Illicit Drug Use: denies illicit drug use Functional Ability ADLs Independent: dressing, eating, toileting, bathing. Ambulation: independent IADLs Independent: shopping, housework, finances, food prep, telephone, transportation , medication admin. Employment History Retired? yes Review of Systems Review of Systems Constitutional: Reports: see HPI. EENTM: Denies: no symptoms. Cardiovascular: Denies: no symptoms. Respiratory: Reports: short of breath. GI: Reports: abdominal pain, bloating. Genitourinary: Reports: see HPI. Skin: Denies: no symptoms. Exam & Diagnostic Data Vital Signs and I&O Vital Signs Date Time Temp Pulse Resp B/P Pulse O2 O2 Flow FiO2 Ox Delivery Rate 02/09 1605 91 Room Air 02/09 1446 97.7 89 20 132/56 93 02/09 1238 Nasal 2.0L Cannula 02/09 0824 97 Room Air 02/09 0738 97.8 84 20 150/54 91 Room Air 02/09 0330 87 Room Air 02/09 0000 93 Nasal 2.0L Cannula 02/08 2228 98.1 88 20 152/60 92 02/08 1640 91 Room Air Intake & Output 02/09 1600 02/09 0800 02/09 0000 04/05 1600 04 0802/08 0000 Intake Total 240 240 650 240 240 Output Total 339 886 8136 100 150 Balance -150 240 40 -1615 140 90 Intake, Oral 240 240 650 240 240 Number 0 Bowel Movements Output, 2000 Dialysate Output, Stool 200 250 150 Output, Urine 150 15 100 Patient 188 lb 184 lb 188 lb Weight Physical Exam General Appearance: well developed/nourished, obese Head: atraumatic Neck: normal inspection Respiratory: normal breath sounds Cardiovascular: regular rate/rhythm Gastrointestinal: soft, distention Back: no vertebral tenderness Extremities: normal inspection Neurologic/Psych: no motor/sensory deficits, awake, alert, oriented x 3 Reproductive: Normal male genitalia Last 24 Hours of Labs: Laboratory Tests 02/09 06 Chemistry Sodium (137 - 145 mmol/L) 133 L Potassium (3.5 - 5.1 mmol/L) 4.8 Chloride (98 - 107 mmol/L) 99 Carbon Dioxide (22 - 30 mmol/L) 26 Anion Gap (5 - 16) 7 BUN (9 - 20 mg/dL) 30 H Creatinine (0.7 - 1.2 mg/dL) 3.4 H Estimated GFR (>60 ml/min) 18 L BUN/Creatinine Ratio (7 - 25 %) 8.8 Coagulation PT (9.4 - 12.5 SEC) 26.2 H INR (0.90 - 1.17) 2.52 H Hematology CBC w Diff NO MAN DIFF REQ WBC (4.8 - 10.8 /CUMM) 10.5 RBC (4.70 - 6.10 /CUMM) 3.36 L Hgb (14.0 - 18.0 G/DL) 9.5 L Hct (42 - 52 %) 30.6 L MCV (80.0 - 94.0 FL) 91.2 MCH (27.0 - 31.0 PG) 28.4 RDW (11.5 - 14.5 %) 21.5 H Plt Count (130 - 400 /CUMM) 119 L MPV (7.4 - 10.4 FL) 9.3 Gran % (42.2 - 75.2 %) 92.9 H Lymphocytes % (20.5 - 51.1 %) 3.3 L Monocytes % (1.7 - 9.3 %) 3.4 Eosinophils % (0 - 5 %) 0.3 Basophils % (0.0 - 2.0 %) 0.1 Absolute Granulocytes (1.4 - 6.5 /CUMM) 9.7 H Absolute Lymphocytes (1.2 - 3.4 /CUMM) 0.3 L Absolute Monocytes (0.10 - 0.60 /CUMM) 0.4 Absolute Eosinophils (0.0 - 0.7 /CUMM) 0 Absolute Basophils (0.0 - 0.2 /CUMM) 0 PUBS MCHC (33.0 - 37.0 G/DL) 31.1 L Imaging Results: PATIENT: DUNCAN ORELLANA PRESENT AGE: 72 PATIENT ACCOUNT NO: [id number] : 45 LOCATION: [facility] ORDERING PHYSICIAN: PAYAL ORTIZ PA-C SERVICE DATE: 01/27/17 EXAM TYPE: CAT - CT ABD & PELVIS W/O IV CONTRAS EXAMINATION: CT ABDOMEN AND PELVIS WITHOUT CONTRAST CLINICAL INFORMATION: Intra-abdominal process. Lower abdominal pain. COMPARISON: Renal ultrasound September 2016. CT of the chest February 2015. TECHNIQUE: Multidetector volumetric imaging was performed from the superior aspect of the liver through the pubic symphysis. Sagittal and coronal reformatted images were obtained on the technologist's workstation. DLP: 538 mGy-cm FINDINGS: LUNG BASES: The visualized lung bases are unremarkable. LIVER, GALLBLADDER, AND BILIARY TREE: There is portal venous air present. The patient is status post cholecystectomy. PANCREAS: Unremarkable SPLEEN: Unremarkable ADRENAL GLANDS: Unremarkable KIDNEYS AND URETERS: There is a large calculus in the left renal pelvis UP junction measuring 16 mm transverse, 16 mm craniocaudal and 10 mm AP. There are 3 adjacent renal calculi, the largest 2 measuring 5 mm and a smaller measuring 1 mm in the lower pole. There is mild dilatation of the collecting system in the lower and mid pole. The upper pole is decompressed. There is no definite perinephric stranding related to the stones and dilated collecting system. Similar stranding noted in the right kidney without calculi. BLADDER: Minimally distended. No stones. GASTROINTESTINAL TRACT: There is air present in the mesentery surrounding the transverse colon as well as more centrally in mesentery. See axial image . No definite air in the bowel wall. No definite bowel wall thickening. ABDOMINAL WALL: Minimal calcification in the superficial subcutaneous soft tissues of the right abdominal wall likely dystrophic without clinical significance. LYMPH NODES: Normal VASCULAR: Severe arterial calcification throughout unchanged. PELVIC VISCERA: Unremarkable OSSEOUS STRUCTURES: Multilevel spondylosis with prominent degenerative disc changes present at L5-S1. IMPRESSION: Portal venous air as well as air in the central mesentery and surrounding the transverse colon. Etiology unclear. Bowel ischemia is a consideration and should be excluded. The air is new compared to a prior CT performed 01/18/2017. Although this can be seen with bowel ischemia this can also be seen with benign conditions including following endoscopy, corticosteroid use, and chronic obstructive lung disease. Therefore clinical significance unclear. Large stone in the distal renal pelvis/UP junction with additional smaller stones in the lower pole of the kidney. The number and size of the stones appears increased compared to prior. Pelvocaliectasis in the lower two-thirds of the left kidney raising the question of obstructing the lower central collecting system of the left kidney. Status post cholecystectomy. Severe calcific atherosclerotic disease. This critical result was discussed with Dr. Young at 10:30 PM on January 27, 2017 and it was ascertained that the content and urgency of the report was understood at the time of direct communication. Assessment/Plan Assessment/Plan Pt with asymptomatic obstructed left kidney due to UPJ stone. Risk of surgery for stone removal/stent without sepsis outweighs benefits for this ESRD-dialysis pt. will follow for now. Copies To: ARRON JI MD Consult Acknowledgment - Thank you for your consult request. Attending MD Review Statement Attending Statement Attending MD Statement: examined this patient, discuss w/resident/PA/CLAIMS ATTORNEY Attending Assessment/Plan: left stone: asymptomatic and on HD. Will treat stone if symptomatic/UTI-septic as risk of kidney stone surgery outweigh benefit,
[2017-02-01 16:00] VITALS: BP 138/48
[2017-02-01 16:29] LABS: PTT > 120 SEC (25-37)
--- NOTE | 2017-02-01 16:57 | NUR ---
@1600-PT RESTING COMF IN CHAIR. FINISHED DIALYSIS-2L REMOVED. PT MEDICATED WITH ORD COUMADIN AND PRN TYELENOL. LUE WRAPPED WITH MEREDITH FOR EDEMA. CONT TO MONITOR, CALL SALTER WITHIN REACH.
--- NOTE | 2017-02-01 21:16 | NUR ---
a/ox3. follow commands. owens with +cms.lung sounds diminished and npc cough.hob elevated.on 3l o2.abd incision cdi.mucous fistula and colostomy patent.left arm av fistula intact with +thrill/bruit.plan of care reviewed.
[2017-02-02] VITALS: BP 92/36
--- NOTE | 2017-02-02 01:00 | NUR ---
PATIENT ALERT. WILL SIT ON EDGE OF BED FOR COMFORT THEN RETUEN TO SLEEP. MID ABDOMINAL DRESSING DRY AND INTACT.ILEOSTOMY DRAINING BROWN LIQUID,MUCOUS PLUG ON L SIDE SEROSANQUINOUS.HEPARIN CONTINUES AT 16 UNITS/KG/HR.0000 PTT THERAPEUTIC.L ARM WRAPPED IN MEREDITH BANDAGE.POSITIVE RADIAL PULSE. RCW SALMA CATH FOR DIALYSIS.
[2017-02-02 01:22] LABS: PTT 64 SEC (25-37)
--- NOTE | 2017-02-02 03:59 | NUR ---
RECEIVED LAB REPORT ON 02/01/17 AT 0321H, CREATININE 5.1 ALSO RELAYED TO NURSE INCHARGE OF THE PATIENT
--- NOTE | 2017-02-02 05:53 | PN- General Surgery ---
See Addendum Subjective Subjective: No acute events overnight. Patient reports no major complaints at this time. He admits to some abdominal discomfort, but within expected limits. He is tolerating a renal diet, without complaints of nausea. His biggest complaint is his breathing. He continues to receive nebulizer treatments which help. Objective Vital Signs and I&Os Vital Signs Date Time Temp Pulse Resp B/P Pulse O2 O2 Flow FiO2 Ox Delivery Rate 02/02 0016 Nasal 2.0L Cannula 02/02 0000 97.7 86 20 92/36 92 Nasal 3.0L Cannula 02/02 0000 92 Nasal 3.0L Cannula 02/01 2129 95 Nasal 2.0L Cannula 02/01 1600 96 Nasal 3.0L Cannula 02/01 1600 98.2 88 16 138/48 96 Nasal 3.0L Cannula 02/01 1223 Nasal 2.0L Cannula 02/01 0934 95 Nasal 2.0L Cannula 02/01 0800 98.4 76 16 120/60 95 Nasal 3.0L Cannula 02/01 0800 95 Nasal 3.0L Cannula Intake & Output 02/02 0800 02/02 0000 02/01 1600 02/01 0800 02/01 0000 01/31 1600 Intake Total 182 665 100 233 960 Output Total 100 2310 0 200 130 Balance 82 -1645 100 33 830 Intake, IV 182 215 233 220 Intake, Oral 450 100 740 Output, 2000 Dialysate Output, Other 0 10 10 Output, Stool 0 150 200 20 Output, Urine 100 150 0 0 100 Patient 194 lb 197 lb Weight Physical Exam: Gen: Pt is awake and alert. NAD. Abd: Midline incision is c/d/i with chung. Ostomly is functioning well with stool in the bag. Stoma unchanged. Mucous fistula is pink and viable. Active bowel sounds were heard. Assessment/Plan Assessment/Plan Patient is a 72-year-old male multiple medical comorbidities, who is now postoperative day #5 status post laparotomy with transverse colectomy and colostomy plus mucous fistula. Plan: -Continue renal diet as tolerated. -Dry dressing change once daily. -GI prophylaxis. -Continue heparin to Coumadin bridge until therapeutic. -Continue to follow-up antibiotics as per ID. -Medical management per primary team. -Will discuss with attending.
[2017-02-02 06:19] LABS: PT 12.8 SEC (9.4-12.5)
[2017-02-02 06:21] LABS: ABSOLUTE BASOPHIL COUNT 0 /CUMM (0.0-0.2); ABSOLUTE EOSINOPHIL COUNT 0.1 /CUMM (0.0-0.7); ABSOLUTE GRANULOCYTE CT 7.6 /CUMM (1.4-6.5); ABSOLUTE MONOCYTE COUNT 0.9 /CUMM (0.10-0.60); BASOPHIL % 0.3 % (0.0-2.0); EOSINOPHIL % 0.7 % (0-5); GRANULOCYTE % 78.9 % (42.2-75.2); HEMATOCRIT 32.1 % (42-52); MEAN CORPUSCULAR HGB 28.6 PG (27.0-31.0); MEAN CORPUSCULAR HGB CONC 31.2 G/DL (33.0-37.0); MEAN CORPUSCULAR VOLUME 91.7 FL (80.0-94.0); MEAN PLATELET VOLUME 9.3 FL (7.4-10.4); PLATELET COUNT 116 /CUMM (130-400); RBC DISTRIBUTION WIDTH 22.4 % (11.5-14.5); WHITE BLOOD CELL COUNT 9.7 /CUMM (4.8-10.8)
--- NOTE | 2017-02-02 06:52 | PN- Housestaff ---
Subjective Follow-up For: ischemic colitis Tele-Events Since Last Visit: off tele monitor GM hold in ICU Subjective: Pt seen today, was lying comfortably on his side, although he is reporting significant pain, but refuses the morphine. Labs reviewed this morning, k 3.6, mg 1.9, inr 1.22. coumadin has been resumed. Was able to obtain sputum sample this morning. Review of Systems Constitutional: Reports: see HPI. Objective Last 24 Hrs of Vital Signs/I&O Vital Signs Date Time Temp Pulse Resp B/P Pulse O2 O2 Flow FiO2 Ox Delivery Rate 02/02 0756 96 Nasal 2.0L Cannula 02/02 0016 Nasal 2.0L Cannula 02/02 0000 97.7 86 20 92/36 92 Nasal 3.0L Cannula 02/02 0000 92 Nasal 3.0L Cannula 02/01 2129 95 Nasal 2.0L Cannula 02/01 1600 96 Nasal 3.0L Cannula 02/01 1600 98.2 88 16 138/48 96 Nasal 3.0L Cannula 02/01 1223 Nasal 2.0L Cannula 02/01 0934 95 Nasal 2.0L Cannula Intake & Output 02/02 1600 02/02 0800 02/02 0000 Intake Total 308 182 Output Total 75 100 Balance 233 82 Intake, IV 208 182 Intake, Oral 100 Output, 15 Drainage Output, Other 0 Output, Stool 60 0 Output, Urine 100 Physical Exam General Appearance: Alert, Oriented X3, Cooperative Skin: LUE swelling improved Cardiovascular: Regular Rate, Normal S1, Normal S2 Lungs: diffuse rhonchi (improved) Abdomen: Soft, dec bowel sounds. tender. Neurological: Normal Speech Current Medications: Current Medications Sig/Johnna Start time Last Medication Dose Route Stop Time Status Admin Acetaminophen 650 MG .STK-MED ONE 02/01 1607 DC PO 02/01 1608 Acetaminophen 650 MG Q4P PRN 01/31 1100 AC 02/02 PO 0835 Acetylcysteine 2 ML BID 01/31 1000 AC 02/02 INH 02/02 2201 0749 Albuterol Sulfate 3 ML TID 01/28 1600 AC 02/02 INH 0749 Calcitriol 0.25 MCG MoWeFr PRN 01/30 0815 AC IV Epoetin Guzman 4,000 UNIT MoWeFr PRN 01/30 0815 AC IV Heparin Sodium 25,000 UNIT Q24H 01/28 1800 AC 02/01 (Porcine) IV 1734 Sodium Chloride 500 ML Insulin Aspart 0 AT BEDTIME 02/01 220 AC SC Insulin Aspart 0 TIDAC 02/01 1200 AC 02/01 SC 1614 Insulin Human Regular 0 Q6 01/28 1200 DC 01/31 SC 1338 Morphine Sulfate 2 MG Q2P PRN 01/28 1730 AC 02/01 IV 1125 Pantoprazole Sodium 40 MG DAILY 01/28 1027 AC 02/02 IV 0834 Sodium Chloride 2 SPRAY Q4P PRN 01/31 0430 AC 02/01 CHULA 0021 Trazodone HCl 50 MG AT BEDTIME 01/30 220 AC 02/01 PO 2107 Warfarin Sodium 7.5 MG COUMADIN 1700 ONE 02/02 1700 AC PO 02/02 1701 Warfarin Sodium 5 MG COUMADIN 1700 ONE 02/01 1700 DC 02/01 PO 02/01 1701 1613 Last 24 Hrs of Lab/Satnam Results Last 24 Hrs of Labs/Mics: Laboratory Tests 02/02/17 0400: Anion Gap 6, Estimated GFR 19 L, BUN/Creatinine Ratio 6.4 L, Magnesium 1.9, PT 12.8 H, INR 1.22 H, CBC w Diff NO MAN DIFF REQ, RBC 3.50 L, MCV 91.7, MCH 28.6, RDW 22.4 H, MPV 9.3, Gran % 78.9 H, Lymphocytes % 10.4 L, Monocytes % 9.7 H, Eosinophils % 0.7, Basophils % 0.3, Absolute Granulocytes 7.6 H, Absolute Lymphocytes 1.0 L, Absolute Monocytes 0.9 H, Absolute Eosinophils 0.1 , Absolute Basophils 0, PUBS MCHC 31.2 L 02/02/17 0015: APTT 64 H 02/01/17 1550: 02/01/17 1410: APTT > 120 *H Microbiology 02/02 830 LOWER RESP: Respiratory Culture - RECD 02/02 830 LOWER RESP: Gram Stain - RECD 02/01 UNK UPPER RESP: Surveillance Culture - RECD 02/01 UNK LOWER RESP: Respiratory Culture - CAN Cancelled: NUMBER OF SQUAMOUS CELLS INDICATES POOR QUALITY SPECIMEN 02/01 UNK LOWER RESP: Gram Stain - CAN Cancelled: NUMBER OF SQUAMOUS CELLS INDICATES POOR QUALITY SPECIMEN Assessment/Plan Assessment: 72-year-old male with significant COPD, recent worsening renal failure now with end-stage renal disease on hemodialysis, paroxysmal atrial fibrillation who is on anticoagulation, chronic heart failure with preserved ejection fraction LVEF of 50%, insulin dependent diabetes probably type II, peripheral vascular disease , coronary artery disease, history of monoclonal gammaglobulin neuropathy of unknown significance, now comes in with acute onset of lower abdominal pain associated with dry heaves while on dialysis. CT abdomen shoed evidence of Portal venous air as well as air in the central mesentery and surrounding the transverse colon, likely bowel ichemia. He underwent exploratory laparotomy with transverse colectomy and end colostomy, was admitted to ICU for close monitoring of post-op hypotension. He did require levophed briefly, and his BP responded to fluid boluses. He has been successfuly extubated. BP now stable without fluids, pressors, or steroids. Stable for GM. Given his multiple medical commordities, pt should be followed by the medical team when he moves. Dr. Lopez OK with the change of service. Gastrointestinal: # S/P exploratory laparotomy with transverse colectomy and end colostomy for ischemic bowel * Ceftriaxone and flagyl 01/28 - 01/30 * Hydrocortisone 01/28 - 01/30 * Appreciate ID input * Appreciate surgery reccs * on renal dialysis diet * Coumadin restarted 02/01 * Dr. Lopez following # Left upper extremity swelling sp AV fistula (improved) * Vascular surgery consult appreciated, recc MEREDITH wrap, being mindful not to occlude fistula, and limb elevation. # ESRD on Dialysis MWF * Nephro on board # Left renal obstruction - asymptomatic obstructed left kidney due to UPJ stone. Risk of surgery for stone removal/stent without sepsis outweighs benefits for this ESRD-dialysis pt. * Urology consulted, Dr. Elise. Respiratory: # Hx of COPD - Succesfully extubated - Previous history of MRSA and Pseudomonas in the lower respiratory tract * cont TRC/Nebs * mucomyst X 6 doses for thick secretion * f/u [facility] # Anemia - likely 2/2 to ESRD, * H&h low but stable, cont monitoring History of Afib * Currently on IV heparin, coumadin started * Monitor electrolytes and replete as needed # Diabetes mellitus * ISS, finger stick glucose Diet: Renal dialysis diet DVT ppx: alps and heparin drip (coumadin started, can dc heparin once INR>2) FULL CODE Labs: BEP and mag for electrolyte repletion , INR for warfarin dosing Consults: general surgery, nephrology, ID, vascular surgery, pulm, urology Problem List: 1. S/P colectomy Pain Ratin Pain Location: abdomen Pain Goal: Pain 4 or less Pain Plan: refuses morphine Tomorrow's Labs & Rationales: bep, mag, for electrolyte repletion inr for coumadin dosing DVT/Prophylaxis: mechanical, pharmacological
[2017-02-02 08:00] VITALS: BP 120/54
--- NOTE | 2017-02-02 09:45 | PN- Nephrology ---
Assessment/Plan Assessment: ESRD: Stable from renal standpoint. Epogen & calcitriol IV 3x/week with dialysis. Next HD tomorrow as per [facility] schedule. 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 Sepsis improved; now off pressors and hemodynamically stable. Blood cultures negative. Obstructing Left renal pelvic stone: Urology eval noted; no need for intervention. Suggestion: Next HD tomorrow; no acute need today Will follow along with you Froy Vasquez MD Subjective Subjective: No acute events; resting comfortably dialyzed yesterday; 2L removed Review of Systems: no fever/chills no sob/chest pain Objective Vital Signs and I&Os Vital Signs Date Time Temp Pulse Resp B/P Pulse O2 O2 Flow FiO2 Ox Delivery Rate 02/02 0756 96 Nasal 2.0L Cannula 02/02 0016 Nasal 2.0L Cannula 02/02 0000 97.7 86 20 92/36 92 Nasal 3.0L Cannula 02/02 0000 92 Nasal 3.0L Cannula 02/01 2129 95 Nasal 2.0L Cannula 02/01 1600 96 Nasal 3.0L Cannula 02/01 1600 98.2 88 16 138/48 96 Nasal 3.0L Cannula 02/01 1223 Nasal 2.0L Cannula Intake & Output 02/02 1600 02/02 0400 02/01 1600 02/01 0400 01/31 1600 01/31 0400 Intake Total 308 182 673 061 6768 480 Output Total 75 100 2310 200 131 350 Balance 233 82 -1545 33 1157 130 Intake, IV 208 182 215 233 428 180 Intake, Oral 100 550 860 300 Output, 2000 Dialysate Output, 15 Drainage Output, Other 0 10 10 Output, Stool 60 0 150 200 21 Output, Urine 100 150 0 100 350 Patient 194 lb 197 lb Weight Physical Exam: NAD no edema LUE AVF+thrill/bruit CTAB S1 S2 soft NT Current Medications: Current Medications Sig/Johnna Start time Last Medication Dose Route Stop Time Status Admin Acetaminophen 650 MG .STK-MED ONE 02/01 1607 DC PO 02/01 1608 Acetaminophen 650 MG Q4P PRN 01/31 1100 AC 02/02 PO 0835 Acetylcysteine 2 ML BID 01/31 1000 DC 02/02 INH 02/02 2201 0749 Albuterol Sulfate 3 ML TID 01/28 1600 AC 02/02 INH 0749 Calcitriol 0.25 MCG MoWeFr PRN 01/30 0815 AC IV Epoetin Guzman 4,000 UNIT MoWeFr PRN 01/30 0815 AC IV Heparin Sodium 25,000 UNIT Q24H 01/28 1800 AC 02/01 (Porcine) IV 1734 Sodium Chloride 500 ML Insulin Aspart 0 AT BEDTIME 02/01 220 AC SC Insulin Aspart 0 TIDAC 02/01 1200 AC 02/01 SC 1614 Insulin Human Regular 0 Q6 01/28 1200 DC 01/31 SC 1338 Morphine Sulfate 2 MG Q2P PRN 01/28 1730 AC 02/01 IV 1125 Pantoprazole Sodium 40 MG DAILY 01/28 1027 AC 02/02 IV 0834 Sodium Chloride 2 SPRAY Q4P PRN 01/31 0430 AC 02/01 CHULA 0021 Trazodone HCl 50 MG AT BEDTIME 01/30 220 AC 02/01 PO 2107 Warfarin Sodium 7.5 MG COUMADIN 1700 ONE 02/02 1700 AC PO 02/02 1701 Warfarin Sodium 5 MG COUMADIN 170 ONE 02/01 1700 DC 02/01 PO 02/01 1701 1613 Results Pertinent Lab Results: Laboratory Tests 02/02 02/02 02/01 02/01 0400 0015 1550 1410 Chemistry Sodium (137 - 145 mmol/L) 137 Potassium (3.5 - 5.1 mmol/L) 3.6 Chloride (98 - 107 mmol/L) 104 Carbon Dioxide (22 - 30 mmol/L) 27 Anion Gap (5 - 16) 6 BUN (9 - 20 mg/dL) 21 H 12 Creatinine (0.7 - 1.2 mg/dL) 3.3 H Estimated GFR (>60 ml/min) 19 L BUN/Creatinine Ratio (7 - 25 %) 6.4 L Magnesium (1.6 - 2.3 mg/dL) 1.9 Coagulation PT (9.4 - 12.5 SEC) 12.8 H INR (0.90 - 1.17) 1.22 H APTT (25 - 37 SEC) 64 H > 120 *H Hematology CBC w Diff NO MAN DIFF REQ WBC (4.8 - 10.8 /CUMM) 9.7 RBC (4.70 - 6.10 /CUMM) 3.50 L Hgb (14.0 - 18.0 G/DL) 10.0 L Hct (42 - 52 %) 32.1 L MCV (80.0 - 94.0 FL) 91.7 MCH (27.0 - 31.0 PG) 28.6 RDW (11.5 - 14.5 %) 22.4 H Plt Count (130 - 400 /CUMM) 116 L MPV (7.4 - 10.4 FL) 9.3 Gran % (42.2 - 75.2 %) 78.9 H Lymphocytes % (20.5 - 51.1 %) 10.4 L Monocytes % (1.7 - 9.3 %) 9.7 H Eosinophils % (0 - 5 %) 0.7 Basophils % (0.0 - 2.0 %) 0.3 Absolute Granulocytes (1.4 - 6.5 /CUMM) 7.6 H Absolute Lymphocytes (1.2 - 3.4 /CUMM) 1.0 L Absolute Monocytes (0.10 - 0.60 /CUMM) 0.9 H Absolute Eosinophils (0.0 - 0.7 /CUMM) 0.1 Absolute Basophils (0.0 - 0.2 /CUMM) 0 PUBS MCHC (33.0 - 37.0 G/DL) 31.2 L 02/01 01/31 0220 1312 Chemistry Sodium (137 - 145 mmol/L) 138 Potassium (3.5 - 5.1 mmol/L) 3.6 Chloride (98 - 107 mmol/L) 107 Carbon Dioxide (22 - 30 mmol/L) 23 Anion Gap (5 - 16) 8 BUN (9 - 20 mg/dL) 40 H Creatinine (0.7 - 1.2 mg/dL) 5.1 *H Estimated GFR (>60 ml/min) 11 L BUN/Creatinine Ratio (7 - 25 %) 7.8 Magnesium (1.6 - 2.3 mg/dL) 2.0 Coagulation PT (9.4 - 12.5 SEC) 12.6 H INR (0.90 - 1.17) 1.20 H APTT (25 - 37 SEC) 85 H 84 H Hematology CBC w Diff NO MAN DIFF REQ WBC (4.8 - 10.8 /CUMM) 10.2 RBC (4.70 - 6.10 /CUMM) 3.33 L Hgb (14.0 - 18.0 G/DL) 9.5 L Hct (42 - 52 %) 30.3 L MCV (80.0 - 94.0 FL) 91.0 MCH (27.0 - 31.0 PG) 28.5 RDW (11.5 - 14.5 %) 21.9 H Plt Count (130 - 400 /CUMM) 120 L MPV (7.4 - 10.4 FL) 8.7 Gran % (42.2 - 75.2 %) 76.2 H Lymphocytes % (20.5 - 51.1 %) 11.9 L Monocytes % (1.7 - 9.3 %) 9.9 H Eosinophils % (0 - 5 %) 1.6 Basophils % (0.0 - 2.0 %) 0.4 Absolute Granulocytes (1.4 - 6.5 /CUMM) 7.8 H Absolute Lymphocytes (1.2 - 3.4 /CUMM) 1.2 Absolute Monocytes (0.10 - 0.60 /CUMM) 1.0 H Absolute Eosinophils (0.0 - 0.7 /CUMM) 0.2 Absolute Basophils (0.0 - 0.2 /CUMM) 0 PUBS MCHC (33.0 - 37.0 G/DL) 31.3 L 01/31 01/30 0500 2125 Chemistry Sodium (137 - 145 mmol/L) 137 Potassium (3.5 - 5.1 mmol/L) 3.2 L Chloride (98 - 107 mmol/L) 104 Carbon Dioxide (22 - 30 mmol/L) 22 Anion Gap (5 - 16) 11 BUN (9 - 20 mg/dL) 30 H Creatinine (0.7 - 1.2 mg/dL) 3.4 H Estimated GFR (>60 ml/min) 18 L Glucose (65 - 99 mg/dL) 121 H Calcium (8.4 - 10.2 mg/dL) 7.7 L Phosphorus (2.5 - 4.5 mg/dL) 4.4 Magnesium (1.6 - 2.3 mg/dL) 1.8 Total Bilirubin (0.2 - 1.3 mg/dL) 0.4 AST (17 - 59 U/L) 13 L ALT (21 - 72 U/L) 27 Albumin (3.5 - 5.0 g/dL) 2.4 L Coagulation APTT (25 - 37 SEC) 60 H 48 H Hematology CBC w Diff NO MAN DIFF REQ WBC (4.8 - 10.8 /CUMM) 10.9 H RBC (4.70 - 6.10 /CUMM) 3.50 L Hgb (14.0 - 18.0 G/DL) 10.1 L Hct (42 - 52 %) 31.8 L MCV (80.0 - 94.0 FL) 90.8 MCH (27.0 - 31.0 PG) 28.7 RDW (11.5 - 14.5 %) 22.5 H Plt Count (130 - 400 /CUMM) 121 L MPV (7.4 - 10.4 FL) 9.2 Gran % (42.2 - 75.2 %) 80.7 H Lymphocytes % (20.5 - 51.1 %) 9.0 L Monocytes % (1.7 - 9.3 %) 8.8 Eosinophils % (0 - 5 %) 1.3 Basophils % (0.0 - 2.0 %) 0.2 Absolute Granulocytes (1.4 - 6.5 /CUMM) 8.8 H Absolute Lymphocytes (1.2 - 3.4 /CUMM) 1.0 L Absolute Monocytes (0.10 - 0.60 /CUMM) 1.0 H Absolute Eosinophils (0.0 - 0.7 /CUMM) 0.1 Absolute Basophils (0.0 - 0.2 /CUMM) 0 PUBS MCHC (33.0 - 37.0 G/DL) 31.6 L
--- NOTE | 2017-02-02 11:57 | PN- Pulmonary ---
Subjective HPI/Critical Care Issues: pt seen and examined doing well no pain no dyspnea at rest left arm swelling resolved Objective Current Medications: Current Medications Sig/Johnna Start time Last Medication Dose Route Stop Time Status Admin Acetaminophen 650 MG .STK-MED ONE 02/02 0239 DC PO 02/02 0240 Acetaminophen 650 MG .STK-MED ONE 02/01 1607 DC PO 02/01 1608 Acetaminophen 650 MG Q4P PRN 01/31 1100 AC 02/02 PO 0835 Acetylcysteine 2 ML BID 01/31 1000 DC 02/02 INH 02/02 2201 0749 Albuterol Sulfate 3 ML TID 01/28 1600 AC 02/02 INH 0749 Calcitriol 0.25 MCG MoWeFr PRN 01/30 0815 AC IV Epoetin Guzman 4,000 UNIT MoWeFr PRN 01/30 0815 AC IV Heparin Sodium 25,000 UNIT Q24H 01/28 1800 AC 02/01 (Porcine) IV 1734 Sodium Chloride 500 ML Insulin Aspart 0 AT BEDTIME 02/01 2200 AC SC Insulin Aspart 0 TIDAC 02/01 1200 AC 02/01 SC 1614 Morphine Sulfate 2 MG Q2P PRN 01/28 1730 AC 02/01 IV 1125 Pantoprazole Sodium 40 MG DAILY 01/28 1027 AC 02/02 IV 0834 Sodium Chloride 2 SPRAY Q4P PRN 01/31 0430 AC 02/01 CHULA 0021 Trazodone HCl 50 MG AT BEDTIME 01/30 2200 AC 02/01 PO 2107 Warfarin Sodium 7.5 MG COUMADIN 1700 ONE 02/02 1700 AC PO 02/02 1701 Warfarin Sodium 5 MG COUMADIN 1700 ONE 02/01 1700 DC 02/01 PO 02/01 1701 1613 Vital Signs & I&O Last 24 Hrs of Vitals and I&O: Vital Signs Date Time Temp Pulse Resp B/P Pulse O2 O2 Flow FiO2 Ox Delivery Rate 02/02 0756 96 Nasal 2.0L Cannula 02/02 0016 Nasal 2.0L Cannula 02/02 0000 97.7 86 20 92/36 92 Nasal 3.0L Cannula 02/02 0000 92 Nasal 3.0L Cannula 02/01 2129 95 Nasal 2.0L Cannula 02/01 1600 96 Nasal 3.0L Cannula 02/01 1600 98.2 88 16 138/48 96 Nasal 3.0L Cannula 02/01 1223 Nasal 2.0L Cannula Intake & Output 02/02 1600 02/02 0800 02/02 0000 Intake Total 308 182 Output Total 75 100 Balance 233 82 Intake, IV 208 182 Intake, Oral 100 Output, 15 Drainage Output, Other 0 Output, Stool 60 0 Output, Urine 100 Exam Other Physical Findings: gen awake and alert heent ncat cvs s1, s2 lungs rare bibasilar rhonchi abd soft, colostomy ext no edema Results Last 24 Hrs of Lab Results: Laboratory Tests 02/02/17 0400: Anion Gap 6, Estimated GFR 19 L, BUN/Creatinine Ratio 6.4 L, Magnesium 1.9, PT 12.8 H, INR 1.22 H, CBC w Diff NO MAN DIFF REQ, RBC 3.50 L, MCV 91.7, MCH 28.6, RDW 22.4 H, MPV 9.3, Gran % 78.9 H, Lymphocytes % 10.4 L, Monocytes % 9.7 H, Eosinophils % 0.7, Basophils % 0.3, Absolute Granulocytes 7.6 H, Absolute Lymphocytes 1.0 L, Absolute Monocytes 0.9 H, Absolute Eosinophils 0.1 , Absolute Basophils 0, PUBS MCHC 31.2 L 02/02/17 0015: APTT 64 H 02/01/17 1550: 02/01/17 1410: APTT > 120 *H Impression/Plan Impression/Plan Impression/Plan: Impression 72 year old man * s/p exp lap & transverse colectomy/colostomy for bowel ischemia * esrd on hd * copd at baseline, chronic cough * chronic anemia secondary to ESRD and previous GI bleed * a.fib hx * DM Plan - s/p mucomyst - f/u surgery, nephrology, f/u ID - anticoagulation for a.fib - off abx - trc/nebs - surgical follow up DVT prophylaxis at all times GM hold
[2017-02-02 13:11] LABS: PTT 66 SEC (25-37)
--- NOTE | 2017-02-02 15:08 | NUR ---
REPORT GIVEN TO AMOR RN AT 1440 PATIENT GOING TO ROOM 236 ALL BELONGING PACKED, ONLY MED TO BE TRANSFERED NASAL SPRAY, A&OX3,VSS,RAC #[id number] PATENT INFUSING HEPARIN @ 26 MLS/HR, LEFT AV FISTULA +BRUIT/+THRILL, RIGHT SUBCLAVIAN SALMA CATH CDI,ABD SURG DSG CDI, RIGHT OSTOMY SITE WNL, LEFT MUCUS OSTOMY INTACT,
--- NOTE | 2017-02-02 18:16 | NUR ---
PT ARRIVED FROM ICU. A+OX3. ON 3L NC. LUNGS RHONCHI, PRODUCTIVE COUGH. LEFT AV FISTULA SWOLLEN, ECCHYMOTIC, +THRILL +BRUIT. ELEVATED ON PILLOW. LCW PACER. RCW SALMA CATH IN PLACE. PT HAS DIALYSIS M--. REQUESTING NYSTATIN FOR GROIN. ORDERED. HEP GTT RUNNING AT 26ML/HR OR 16 U/KG/HR. NEXT PTT 3-31 AT MIDNIGHT. ORIENTED TO ROOM AND CALL SALTER. WILL MONITOR.
[2017-02-02 18:31] VITALS: BP 136/56
[2017-02-02 22:39] VITALS: BP 122/70
[2017-02-03 00:42] LABS: PTT 68 SEC (25-37)
[2017-02-03 06:42] VITALS: BP 132/68
--- NOTE | 2017-02-03 07:18 | PN- Housestaff ---
See Addendum Subjective Follow-up For: Ischemic colitis status post surgical internvention Subjective: Afebrile, hemodynamically stable, no acute overnight events reported. Patient reported mild cough and a feeling of phlegm stuck in his throat, however he is saturating well on 2 L of oxygen. Patient tolerated diet well and denies abdominal pain, nausea, or vomiting. Patient has no other current complaints. Review of Systems Constitutional: Reports: see HPI. Denies: chills, fever. Objective Last 24 Hrs of Vital Signs/I&O Vital Signs Date Time Temp Pulse Resp B/P Pulse O2 O2 Flow FiO2 Ox Delivery Rate 02/03 0642 98.8 81 18 132/68 96 Nasal Cannula 02/03 0031 99 Nasal 2.0L Cannula 02/03 0000 Nasal 2.0L Cannula 02/02 2239 99.1 79 19 122/70 98 Nasal Cannula 02/02 2030 99 Nasal 3.0L Cannula 02/02 1831 98.1 78 19 136/56 99 Nasal Cannula 02/02 1600 Nasal 3.0L Cannula Intake & Output 02/03 1600 02/03 0800 02/03 0000 Intake Total 308 204 Output Total 150 260 Balance 158 -56 Intake, IV 208 104 Intake, Oral 100 100 Output, Stool 50 100 Output, Urine 100 160 Physical Exam General Appearance: Alert, Oriented X3, Cooperative, No Acute Distress Skin: No Rashes HEENT: Atraumatic, PERRLA, EOMI, Mucous Membr. moist/pink Cardiovascular: Regular Rate, Normal S1, Normal S2, No Murmurs Lungs: decreased air entry,mild wheezes and crackles at the lung base bilaterally Abdomen: Soft, No Tenderness, midline surgical incision with no erythema or other sign of infection, right colostomy bag filled brown semi-formed stool, left colectomy back that attempting Neurological: Normal Speech Extremities: +1 lower extremity edema Current Medications: Current Medications Sig/Johnna Start time Last Medication Dose Route Stop Time Status Admin Acetaminophen 650 MG .STK-MED ONE 02/03 2104 DC PO 02/02 2105 Acetaminophen 650 MG Q4P PRN 01/31 1100 AC 02/03 PO 0352 Acetylcysteine 2 ML BID 01/31 1000 DC 02/02 INH 02/02 2201 0749 Albuterol Sulfate 3 ML TID 01/28 1600 AC 02/03 INH 0419 Calcitriol 0.25 MCG MoWeFr PRN 01/30 0815 AC IV Epoetin Guzman 4,000 UNIT MoWeFr PRN 01/30 0815 AC IV Heparin Sodium 25,000 UNIT Q24H 01/28 1800 AC 02/03 (Porcine) IV 0347 Sodium Chloride 500 ML Insulin Aspart 0 AT BEDTIME 02/01 2200 AC SC Insulin Aspart 0 TIDAC 02/01 1200 AC 02/03 SC 0820 Morphine Sulfate 2 MG Q2P PRN 01/28 1730 AC 02/01 IV 1125 Nystatin 1 MAI TID PRN 02/02 1800 AC 02/02 TOP 1838 Pantoprazole Sodium 40 MG DAILY 01/28 1027 AC 02/03 IV 0819 Sodium Chloride 2 SPRAY Q4P PRN 01/31 0430 AC 02/01 CHULA 0021 Trazodone HCl 50 MG AT BEDTIME 01/30 2200 AC 02/02 PO 2209 Warfarin Sodium 7.5 MG COUMADIN 1700 ONE 02/02 1700 DC 02/02 PO 02/02 1701 1735 Last 24 Hrs of Lab/Satnam Results Last 24 Hrs of Labs/Mics: Laboratory Tests 02/03/17 0730: Sodium Pending, Potassium Pending, Chloride Pending, Carbon Dioxide Pending, Anion Gap Pending, BUN Pending, Creatinine Pending, BUN/Creatinine Ratio Pending , Glucose Pending, Calcium Pending, Phosphorus Pending, Magnesium Pending, Total Bilirubin Pending, AST Pending, ALT Pending, Albumin Pending, PT Pending, INR Pending, CBC w Diff Pending, WBC Pending, RBC Pending, Hgb Pending, Hct Pending, MCV Pending, MCH Pending, RDW Pending, Plt Count Pending, MPV Pending, PUBS MCHC Pending 02/03/17 0005: APTT 68 H 02/02/17 1245: APTT 66 H Assessment/Plan Assessment: # S/P exploratory laparotomy with transverse colectomy and end colostomy for ischemic bowel Had Ceftriaxone and flagyl 01/28 - 01/30, Hydrocortisone 01/28 - 01/30. He tolerated renal dialysis diet. Coumadin was restarted on 02/01, with INR today being 1.35. * We will follow up ID and surgery recommendations. * We will dose Coumadin daily until therapeutic. Most likely will be discharged. # Left upper extremity swelling sp AV fistula (improved) * Vascular surgery consult appreciated, recc MEREDITH wrap, being mindful not to occlude fistula, and limb elevation. # ESRD on Dialysis MWF * Nephro on board * HD today in process * As per nephrology Next HD monday * As per nephrology has outpatient seat at [facility] if discharged this weekend # Left renal obstruction Asymptomatic obstructed left kidney due to UPJ stone. Risk of surgery for stone removal/stent without sepsis outweighs benefits for this ESRD-dialysis pt. Urology consulted, Dr. Elise. * NTD for now # Hx of COPD Succesfully extubated on day 0 post surgery. He has Previous history of MRSA and Pseudomonas in the lower respiratory tract. [employer] Dr. Perry is on board. * cont TRC/Nebs * mucomyst X 6 doses for thick secretion * f/u [facility] * Continue watch of antibiotic # Anemia - likely 2/2 to ESRD, * H&h low but stable, cont monitoring History of Afib * Currently on IV heparin with Coumadin bridging, INR today is 1.3 * Monitor electrolytes and replete as needed # Diabetes mellitus * ISS, finger stick glucose Diet: Renal dialysis diet DVT ppx: alps and heparin drip (coumadin started, can dc heparin once INR>2) FULL CODE Problem List: 1. COPD (chronic obstructive pulmonary disease) 2. CKD (chronic kidney disease) 3. Mesenteric ischemia 4. Hx laparoscopic cholecystectomy 5. S/P colectomy Pain Ratin Pain Location: abdo Pain Goal: Remain pain free Pain Plan: see A&P Tomorrow's Labs & Rationales: cbc and bep, inr
--- NOTE | 2017-02-03 07:22 | PN- General Surgery ---
KYARA LOPEZ 02/03/17 0722: Subjective Subjective: No acute overnight events reported. Patient tolerating renal diet, denies nausea and vomitting. C/O occasional incisional pain, denies nausea and vomitting. Denies chest pain, shortness of breath and difficulty breathing. Objective Vital Signs and I&Os Vital Signs Date Time Temp Pulse Resp B/P Pulse O2 O2 Flow FiO2 Ox Delivery Rate 02/03 0642 98.8 81 18 132/68 96 Nasal Cannula 02/03 0031 99 Nasal 2.0L Cannula 02/03 0000 Nasal 2.0L Cannula 02/02 2239 99.1 79 19 122/70 98 Nasal Cannula 02/02 2030 99 Nasal 3.0L Cannula 02/02 1831 98.1 78 19 136/56 99 Nasal Cannula 02/02 1600 Nasal 3.0L Cannula 02/02 0800 97.6 73 20 120/54 98 Nasal 3.0L Cannula 02/02 0800 98 Nasal 3.0L Cannula 02/02 0756 96 Nasal 2.0L Cannula Intake & Output 02/03 0800 02/03 0000 02/02 1600 02/02 0800 02/02 0000 02/01 1600 Intake Total 204 598 308 182 665 Output Total 100 260 110 75 100 2310 Balance -100 -56 488 233 82 -1645 Intake, IV 104 238 208 182 215 Intake, Oral 100 360 100 450 Output, 2000 Dialysate Output, 10 15 Drainage Output, Other 0 10 Output, Stool 100 100 60 0 150 Output, Urine 100 160 0 100 150 Physical Exam: General: Alert and oriented x3, no acute distress Cardiac: Irregular, s1s2 Pulmonary: Bilateral rhonchi, expiratory wheeze left greater than right Abdomen: Obese, midline dressing dry and intact, colostomy stoma appearing red, patent, loose stool and gas noted in bag, mucous fistula appearing viable, minimal output appreciated Extremities: Moves all extremities, distal sensations intact. Motor 5/5 in plantar and dorsi flexion. DP pulses palpable, no peripheral edema. Bilateral calves soft and non-tender Assessment/Plan Assessment/Plan This is a 72 year old male, POD 6, s/p transverse colectomy with creation of ostomy and mucous fistula. Comorbidities include esrd for which he has dialysis 3x/week, afib, copd, chf hx, and dm. -Continue renal diet as tolerated -Continue current pain regimen -Pulmonary toilet -Heg gtt until inr therapeutic with coumadin -Medicine as primary, surgery will continue to be available for consult. KIKI STREET,ADALBERTO 02/03/175: Attending MD Review Statement Attending Statement Attending MD Statement: examined this patient Attending Assessment/Plan: agree w above, ostomies viable, continue present care
[2017-02-03 08:37] LABS: PT 14.1 SEC (9.4-12.5)
[2017-02-03 08:38] LABS: ABSOLUTE BASOPHIL COUNT 0 /CUMM (0.0-0.2); ABSOLUTE EOSINOPHIL COUNT 0.1 /CUMM (0.0-0.7); ABSOLUTE GRANULOCYTE CT 7.7 /CUMM (1.4-6.5); ABSOLUTE LYMPH COUNT 0.9 /CUMM (1.2-3.4); ABSOLUTE MONOCYTE COUNT 1.1 /CUMM (0.10-0.60); BASOPHIL % 0.4 % (0.0-2.0); EOSINOPHIL % 0.7 % (0-5); GRANULOCYTE % 78.5 % (42.2-75.2); HEMATOCRIT 29.3 % (42-52); MEAN CORPUSCULAR HGB 28.2 PG (27.0-31.0); MEAN CORPUSCULAR HGB CONC 30.6 G/DL (33.0-37.0); MEAN CORPUSCULAR VOLUME 92.3 FL (80.0-94.0); MEAN PLATELET VOLUME 8.9 FL (7.4-10.4); PLATELET COUNT 103 /CUMM (130-400); RBC DISTRIBUTION WIDTH 22.3 % (11.5-14.5); RED BLOOD CELL CT 3.17 /CUMM (4.70-6.10); WHITE BLOOD CELL COUNT 9.8 /CUMM (4.8-10.8)
--- NOTE | 2017-02-03 09:44 | PN- Nephrology ---
Assessment/Plan Assessment: ESRD: Stable from renal standpoint. Epogen & calcitriol IV 3x/week with dialysis. HD in process today as per [facility] schedule. 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 Obstructing Left renal pelvic stone: Urology eval noted; no need for intervention. afib: awaiting therapeutic INR; on heparin bridge Suggestion: HD today in process Next HD monday; has outpatient seat at [facility] if discharged this weekend Will follow along with you Froy Vasquez MD Subjective Subjective: No acute events seen on dialysis taking PO, getting OOB some output via ostomy but not high grade Review of Systems: no fever/chills no sob/cp Objective Vital Signs and I&Os Vital Signs Date Time Temp Pulse Resp B/P Pulse O2 O2 Flow FiO2 Ox Delivery Rate 02/03 0903 95 Nasal 2.0L Cannula 02/03 0800 96 Nasal 2.0L Cannula 02/03 0642 98.8 81 18 132/68 96 Nasal Cannula 02/03 0031 99 Nasal 2.0L Cannula 02/03 0000 Nasal 2.0L Cannula 02/02 2239 99.1 79 19 122/70 98 Nasal Cannula 02/02 2030 99 Nasal 3.0L Cannula 02/02 1831 98.1 78 19 136/56 99 Nasal Cannula 02/02 1600 Nasal 3.0L Cannula Intake & Output 02/03 1600 02/03 0400 02/02 1600 02/02 0400 02/01 1600 02/01 0400 Intake Total 308 204 906 182 765 233 Output Total 150 260 072 238 3645 200 Balance 158 -56 721 82 -1545 33 Intake, IV 208 104 446 182 215 233 Intake, Oral 100 100 460 550 Output, 2000 Dialysate Output, 25 Drainage Output, Other 0 10 Output, Stool 50 100 160 0 150 200 Output, Urine 100 160 0 100 150 0 Patient 194 lb Weight Physical Exam: NAD no edema LUE AVF+thrill/bruit, swelling decreased chest +SALMA cath CTAB S1 S2 soft NT +ostomy Current Medications: Current Medications Sig/Johnna Start time Last Medication Dose Route Stop Time Status Admin Acetaminophen 650 MG .STK-MED ONE 02/03 2104 DC PO 02/02 2105 Acetaminophen 650 MG Q4P PRN 01/31 1100 AC 02/03 PO 0352 Albuterol Sulfate 3 ML TID 01/28 1600 AC 02/03 INH 0848 Calcitriol 0.25 MCG MoWeFr PRN 01/30 0815 AC IV Epoetin Guzman 4,000 UNIT MoWeFr PRN 01/30 0815 AC IV Heparin Sodium 25,000 UNIT Q24H 01/28 1800 AC 02/03 (Porcine) IV 0347 Sodium Chloride 500 ML Insulin Aspart 0 AT BEDTIME 02/01 2200 AC SC Insulin Aspart 0 TIDAC 02/01 1200 AC 02/03 SC 0820 Morphine Sulfate 2 MG Q2P PRN 01/28 1730 AC 02/01 IV 1125 Nystatin 1 MAI TID PRN 02/02 1800 AC 02/02 TOP 1838 Pantoprazole Sodium 40 MG DAILY 01/28 1027 AC 02/03 IV 0819 Sodium Chloride 2 SPRAY Q4P PRN 01/31 0430 AC 02/01 CHULA 0021 Trazodone HCl 50 MG AT BEDTIME 01/30 2200 AC 02/02 PO 2209 Warfarin Sodium 7.5 MG COUMADIN 1700 ONE 02/02 1700 DC 02/02 PO 02/02 1701 1735 Results Pertinent Lab Results: Laboratory Tests 02/03 02/03 02/02 0730 0005 1245 Chemistry Sodium (137 - 145 mmol/L) 136 L Potassium (3.5 - 5.1 mmol/L) 4.0 Chloride (98 - 107 mmol/L) 106 Carbon Dioxide (22 - 30 mmol/L) 22 Anion Gap (5 - 16) 8 BUN (9 - 20 mg/dL) 32 H Creatinine (0.7 - 1.2 mg/dL) 4.1 H Estimated GFR (>60 ml/min) 14 L BUN/Creatinine Ratio (7 - 25 %) 7.8 Glucose (65 - 99 mg/dL) 114 H Calcium (8.4 - 10.2 mg/dL) 8.1 L Phosphorus (2.5 - 4.5 mg/dL) 4.5 Magnesium (1.6 - 2.3 mg/dL) 1.8 Total Bilirubin (0.2 - 1.3 mg/dL) 0.5 AST (17 - 59 U/L) 16 L ALT (21 - 72 U/L) 27 Albumin (3.5 - 5.0 g/dL) 2.4 L Coagulation PT (9.4 - 12.5 SEC) 14.1 H INR (0.90 - 1.17) 1.35 H APTT (25 - 37 SEC) 68 H 66 H Hematology CBC w Diff NO MAN DIFF REQ WBC (4.8 - 10.8 /CUMM) 9.8 RBC (4.70 - 6.10 /CUMM) 3.17 L Hgb (14.0 - 18.0 G/DL) 9.0 L Hct (42 - 52 %) 29.3 L MCV (80.0 - 94.0 FL) 92.3 MCH (27.0 - 31.0 PG) 28.2 RDW (11.5 - 14.5 %) 22.3 H Plt Count (130 - 400 /CUMM) 103 L MPV (7.4 - 10.4 FL) 8.9 Gran % (42.2 - 75.2 %) 78.5 H Lymphocytes % (20.5 - 51.1 %) 9.6 L Monocytes % (1.7 - 9.3 %) 10.8 H Eosinophils % (0 - 5 %) 0.7 Basophils % (0.0 - 2.0 %) 0.4 Absolute Granulocytes (1.4 - 6.5 /CUMM) 7.7 H Absolute Lymphocytes (1.2 - 3.4 /CUMM) 0.9 L Absolute Monocytes (0.10 - 0.60 /CUMM) 1.1 H Absolute Eosinophils (0.0 - 0.7 /CUMM) 0.1 Absolute Basophils (0.0 - 0.2 /CUMM) 0 PUBS MCHC (33.0 - 37.0 G/DL) 30.6 L 02/02 02/02 02/01 02/01 0400 0015 1550 1410 Chemistry Sodium (137 - 145 mmol/L) 137 Potassium (3.5 - 5.1 mmol/L) 3.6 Chloride (98 - 107 mmol/L) 104 Carbon Dioxide (22 - 30 mmol/L) 27 Anion Gap (5 - 16) 6 BUN (9 - 20 mg/dL) 21 H 12 Creatinine (0.7 - 1.2 mg/dL) 3.3 H Estimated GFR (>60 ml/min) 19 L BUN/Creatinine Ratio (7 - 25 %) 6.4 L Magnesium (1.6 - 2.3 mg/dL) 1.9 Coagulation PT (9.4 - 12.5 SEC) 12.8 H INR (0.90 - 1.17) 1.22 H APTT (25 - 37 SEC) 64 H > 120 *H Hematology CBC w Diff NO MAN DIFF REQ WBC (4.8 - 10.8 /CUMM) 9.7 RBC (4.70 - 6.10 /CUMM) 3.50 L Hgb (14.0 - 18.0 G/DL) 10.0 L Hct (42 - 52 %) 32.1 L MCV (80.0 - 94.0 FL) 91.7 MCH (27.0 - 31.0 PG) 28.6 RDW (11.5 - 14.5 %) 22.4 H Plt Count (130 - 400 /CUMM) 116 L MPV (7.4 - 10.4 FL) 9.3 Gran % (42.2 - 75.2 %) 78.9 H Lymphocytes % (20.5 - 51.1 %) 10.4 L Monocytes % (1.7 - 9.3 %) 9.7 H Eosinophils % (0 - 5 %) 0.7 Basophils % (0.0 - 2.0 %) 0.3 Absolute Granulocytes (1.4 - 6.5 /CUMM) 7.6 H Absolute Lymphocytes (1.2 - 3.4 /CUMM) 1.0 L Absolute Monocytes (0.10 - 0.60 /CUMM) 0.9 H Absolute Eosinophils (0.0 - 0.7 /CUMM) 0.1 Absolute Basophils (0.0 - 0.2 /CUMM) 0 PUBS MCHC (33.0 - 37.0 G/DL) 31.2 L 02/01 01/31 0220 1312 Chemistry Sodium (137 - 145 mmol/L) 138 Potassium (3.5 - 5.1 mmol/L) 3.6 Chloride (98 - 107 mmol/L) 107 Carbon Dioxide (22 - 30 mmol/L) 23 Anion Gap (5 - 16) 8 BUN (9 - 20 mg/dL) 40 H Creatinine (0.7 - 1.2 mg/dL) 5.1 *H Estimated GFR (>60 ml/min) 11 L BUN/Creatinine Ratio (7 - 25 %) 7.8 Magnesium (1.6 - 2.3 mg/dL) 2.0 Coagulation PT (9.4 - 12.5 SEC) 12.6 H INR (0.90 - 1.17) 1.20 H APTT (25 - 37 SEC) 85 H 84 H Hematology CBC w Diff NO MAN DIFF REQ WBC (4.8 - 10.8 /CUMM) 10.2 RBC (4.70 - 6.10 /CUMM) 3.33 L Hgb (14.0 - 18.0 G/DL) 9.5 L Hct (42 - 52 %) 30.3 L MCV (80.0 - 94.0 FL) 91.0 MCH (27.0 - 31.0 PG) 28.5 RDW (11.5 - 14.5 %) 21.9 H Plt Count (130 - 400 /CUMM) 120 L MPV (7.4 - 10.4 FL) 8.7 Gran % (42.2 - 75.2 %) 76.2 H Lymphocytes % (20.5 - 51.1 %) 11.9 L Monocytes % (1.7 - 9.3 %) 9.9 H Eosinophils % (0 - 5 %) 1.6 Basophils % (0.0 - 2.0 %) 0.4 Absolute Granulocytes (1.4 - 6.5 /CUMM) 7.8 H Absolute Lymphocytes (1.2 - 3.4 /CUMM) 1.2 Absolute Monocytes (0.10 - 0.60 /CUMM) 1.0 H Absolute Eosinophils (0.0 - 0.7 /CUMM) 0.2 Absolute Basophils (0.0 - 0.2 /CUMM) 0 PUBS MCHC (33.0 - 37.0 G/DL) 31.3 L
--- NOTE | 2017-02-03 12:18 | PN- Pulmonary ---
Subjective HPI/Critical Care Issues: Patient seen and examined transferred out of the ICU. Undergoing dialysis and doing well overall no shortness of breath no pain at this time. Tolerating his meals. Objective Current Medications: Current Medications Sig/Johnna Start time Last Medication Dose Route Stop Time Status Admin Acetaminophen 650 MG .STK-MED ONE 02/03 0250 DC PO 02/03 0251 Acetaminophen 650 MG .STK-MED ONE 02/02 2104 DC PO 02/02 2105 Acetaminophen 650 MG Q4P PRN 01/31 1100 AC 02/03 PO 0352 Albuterol Sulfate 3 ML TID 01/28 1600 AC 02/03 INH 0848 Calcitriol 0.25 MCG MoWeFr PRN 01/30 0815 AC IV Epoetin Guzman 4,000 UNIT MoWeFr PRN 01/30 0815 AC IV Heparin Sodium 25,000 UNIT Q24H 01/28 1800 AC 02/03 (Porcine) IV 0347 Sodium Chloride 500 ML Insulin Aspart 0 AT BEDTIME 02/01 2200 AC SC Insulin Aspart 0 TIDAC 02/01 1200 AC 02/03 SC 0820 Morphine Sulfate 2 MG Q2P PRN 01/28 1730 AC 02/01 IV 1125 Nystatin 1 MAI TID PRN 02/02 1800 AC 02/02 TOP 1838 Pantoprazole Sodium 40 MG DAILY 01/28 1027 AC 02/03 IV 0819 Sodium Chloride 2 SPRAY Q4P PRN 01/31 0430 AC 02/01 CHULA 0021 Trazodone HCl 50 MG AT BEDTIME 01/30 2200 AC 02/02 PO 2209 Warfarin Sodium 7.5 MG COUMADIN 1700 ONE 02/03 1700 AC PO 02/03 1701 Warfarin Sodium 7.5 MG COUMADIN 1700 ONE 02/02 1700 DC 02/02 PO 02/02 1701 1735 Vital Signs & I&O Last 24 Hrs of Vitals and I&O: Vital Signs Date Time Temp Pulse Resp B/P Pulse O2 O2 Flow FiO2 Ox Delivery Rate 02/03 0903 95 Nasal 2.0L Cannula 02/03 0800 96 Nasal 2.0L Cannula 02/03 0642 98.8 81 18 132/68 96 Nasal Cannula 02/03 0031 99 Nasal 2.0L Cannula 02/03 0000 Nasal 2.0L Cannula 02/029 99.1 79 19 122/70 98 Nasal Cannula 02/02 2030 99 Nasal 3.0L Cannula 02/02 1831 98.1 78 19 136/56 99 Nasal Cannula 02/02 1600 Nasal 3.0L Cannula Intake & Output 02/03 1600 02/03 0800 02/03 0000 Intake Total 308 204 Output Total 150 260 Balance 158 -56 Intake, IV 208 104 Intake, Oral 100 100 Output, Stool 50 100 Output, Urine 100 160 Exam Other Physical Findings: gen awake and alert heent ncat cvs s1, s2 lungs rare bibasilar rhonchi abd soft, colostomy ext no edema Results Last 24 Hrs of Lab Results: Laboratory Tests 02/03/17 0730: Anion Gap 8, Estimated GFR 14 L, BUN/Creatinine Ratio 7.8, Glucose 114 H, Calcium 8.1 L, Phosphorus 4.5, Magnesium 1.8, Total Bilirubin 0.5, AST 16 L, ALT 27, Albumin 2.4 L, PT 14.1 H, INR 1.35 H, CBC w Diff NO MAN DIFF REQ, RBC 3.17 L, MCV 92.3, MCH 28.2, RDW 22.3 H, MPV 8.9, Gran % 78.5 H, Lymphocytes % 9.6 L, Monocytes % 10.8 H, Eosinophils % 0.7, Basophils % 0.4, Absolute Granulocytes 7.7 H, Absolute Lymphocytes 0.9 L, Absolute Monocytes 1.1 H, Absolute Eosinophils 0.1, Absolute Basophils 0, PUBS MCHC 30.6 L 02/03/17 0005: APTT 68 H 02/02/17 1245: APTT 66 H Impression/Plan Impression/Plan Impression/Plan: Impression 72 year old man * s/p exp lap & transverse colectomy/colostomy for bowel ischemia * esrd on hd * copd at baseline, chronic cough * chronic anemia secondary to ESRD and previous GI bleed * a.fib hx * DM Plan - s/p mucomyst - f/u surgery, nephrology, f/u ID - anticoagulation for a.fib - off abx - trc/nebs - surgical follow up DVT prophylaxis at all times Will sign off Rehab consideration, will see as needed
[2017-02-03 13:29] VITALS: BP 130/82
--- NOTE | 2017-02-03 14:27 | NUR ---
PHYSICAL THERAPY- CONSULT RECEIVED, CHART REVIEWED. PT OFF THE FLOOR x2 THIS DAY, RECEIVING DIALYSIS. S/W NSG WHO REPORTS PT OOB W/ NSG ASSIST x1. CASE MANAGEMENT REPORTS PT HAS SECURED BED FOR STR, NO P.T. EVALUATION NEEDED, AND D/C IS ANTICIPATED FOR THIS WEEKEND. RECOMMEND CONT OOB W/ NSG STAFF DURING DAY. WILL NOT FOLLOW.
[2017-02-03 14:51] LABS: PTT 106 SEC (25-37)
--- NOTE | 2017-02-03 16:02 | Incdntl Nt Psy ---
Incidental Note Notation: 02/03/17: I saw the patient today at 1500, after discussion with housestaff, but without a formal consult. He is alert, oriented, calm and pleasant. Denies feeling so depression ("The same as everyone else,") but is sad about his oldest son, 24, sentenced to life in halfway, and his estrangement from his youngest. He denies SI/HI/paranoid ideation. He asks for a definition of anxiety, and then denies he has those feelings. Chacorta states that when the time comes to , "I will go willingly. I have no regrets." He states that he will not kill himself. I left a card with [facility] contact information, and he will consider calling to make an appointment. At this time, he feels overwhelmed by his recent surgery, and wishes to recover first. The patient is not suicidal, not delirious, nor psychotic and is appropriate for discharge. Please place a consult if a psychiatric matter arises. Thank-you, Phoenix Hamilton APRN, Pager [phone]
--- NOTE | 2017-02-03 16:09 | NUR ---
Referral received this am via departmental huddle. This patient is a 67 year old man, admitted to the hospital on 01/28/17 with an ishemic bowel, who went to the OR and had a resection. Patient is known to this conventional mortgage underwriter from multiple previous admissions. Patient agreeable to STR and will resume his outpatient dialysis, but after day 20 at rehab, he will have a significant copay for which he will be responsible. Applying for additonal HUSKY benefits with this patient has been an ongoing issue by myself, ACO nurse, and MARINE GEOLOGIST at dialysis unit. Today, I was notified by his caseworker protective services that he is now willing to apply. I met with patient this afternoon and provided him with the documentation list fot the LTC application. He expressed concerns that he has been delinquent with obligations, and thus if he submits application now, he will be denied. I suggested that he ask his son (or surendra) to go to apartment and bring some his mail, etc to hospital and bills could be paid. He was not entirely receptive to this idea, but accepted the documentation list for review. I informed patient that I would see him again on Monday (expecting that he will still be here) as transportation for dialysis needs to be resolved. Follow.
--- NOTE | 2017-02-03 16:19 | PN- Infect Dx ---
Subjective Subjective: Afebrile. He has no new complaints. Objective Last 24 Hrs of Vital Signs/I&O Vital Signs Date Time Temp Pulse Resp B/P Pulse O2 O2 Flow FiO2 Ox Delivery Rate 02/03 1329 97.8 84 18 130/82 92 Nasal 2.0L Cannula 02/03 0903 95 Nasal 2.0L Cannula 02/03 0800 96 Nasal 2.0L Cannula 02/03 0642 98.8 81 18 132/68 96 Nasal Cannula 02/03 0031 99 Nasal 2.0L Cannula 02/03 0000 Nasal 2.0L Cannula 02/02 2239 99.1 79 19 122/70 98 Nasal Cannula 02/02 2030 99 Nasal 3.0L Cannula 02/02 1831 98.1 78 19 136/56 99 Nasal Cannula Intake & Output 02/03 1600 02/03 0800 02/03 0000 Intake Total 1500 308 204 Output Total 300 150 260 Balance 1200 158 -56 Intake, IV 208 104 Intake, Oral 1500 100 100 Output, Stool 300 50 100 Output, Urine 100 160 Patient 195 lb Weight Physical Exam Other Physical Findings: He appears comfortable in no distress, but is depressed Lungs scattered rhonchi bilaterally Heart regular rhythm with no murmur Abdomen is mildly distended, nontender to palpation, with stool in the colostomy and mucous/blood in the mucus fistula Extremities increased swelling of the left upper extremity, with bruit audible over the fistula; slight erythema over the incision, with no active drainage; left hand slightly cool, with palpable radial pulse Results Last 24 Hours of Lab Results: Laboratory Tests 02/03 02/03 02/03 1355 0933 0730 Chemistry Sodium (137 - 145 mmol/L) Cancelled 136 L Potassium (3.5 - 5.1 mmol/L) Cancelled 4.0 Chloride (98 - 107 mmol/L) Cancelled 106 Carbon Dioxide (22 - 30 mmol/L) Cancelled 22 Anion Gap (5 - 16) Cancelled 8 BUN (9 - 20 mg/dL) Cancelled 32 H Creatinine (0.7 - 1.2 mg/dL) Cancelled 4.1 H Estimated GFR (>60 ml/min) 14 L BUN/Creatinine Ratio (7 - 25 %) Cancelled 7.8 Glucose (65 - 99 mg/dL) 114 H Calcium (8.4 - 10.2 mg/dL) Cancelled 8.1 L Phosphorus (2.5 - 4.5 mg/dL) 4.5 Magnesium (1.6 - 2.3 mg/dL) 1.8 Total Bilirubin (0.2 - 1.3 mg/dL) 0.5 AST (17 - 59 U/L) 16 L ALT (21 - 72 U/L) 27 Albumin (3.5 - 5.0 g/dL) 2.4 L Coagulation PT (9.4 - 12.5 SEC) 14.1 H INR (0.90 - 1.17) 1.35 H APTT (25 - 37 SEC) 106 *H Hematology CBC w Diff NO MAN DIFF REQ WBC (4.8 - 10.8 /CUMM) 9.8 RBC (4.70 - 6.10 /CUMM) 3.17 L Hgb (14.0 - 18.0 G/DL) 9.0 L Hct (42 - 52 %) 29.3 L MCV (80.0 - 94.0 FL) 92.3 MCH (27.0 - 31.0 PG) 28.2 RDW (11.5 - 14.5 %) 22.3 H Plt Count (130 - 400 /CUMM) 103 L MPV (7.4 - 10.4 FL) 8.9 Gran % (42.2 - 75.2 %) 78.5 H Lymphocytes % (20.5 - 51.1 %) 9.6 L Monocytes % (1.7 - 9.3 %) 10.8 H Eosinophils % (0 - 5 %) 0.7 Basophils % (0.0 - 2.0 %) 0.4 Absolute Granulocytes (1.4 - 6.5 /CUMM) 7.7 H Absolute Lymphocytes (1.2 - 3.4 /CUMM) 0.9 L Absolute Monocytes (0.10 - 0.60 /CUMM) 1.1 H Absolute Eosinophils (0.0 - 0.7 /CUMM) 0.1 Absolute Basophils (0.0 - 0.2 /CUMM) 0 PUBS MCHC (33.0 - 37.0 G/DL) 30.6 L / 0005 Coagulation APTT (25 - 37 SEC) 68 H Last 24 Hours of Satnam Results: No recent cultures Assessment/Plan Impression: Stable status post transverse colectomy 6 days ago for mesenteric ischemia/ gangrenous transverse colon, with temperatures and white blood cell count remaining normal off antibiotics. His left upper extremity swelling has increased, with left hand slightly cool, raising concern regarding the AV fistula, and further evaluation may be warranted if this persists. Urology evaluation regarding his left kidney obstruction appreciated. Suggestion: 1. Elevate left leg and apply gentle cynthia wrap as suggested by Vascular surgery 2. Consider left upper extremity ultrasound if inflammation persists, but would discuss with Vascular surgery prior to any imaging 3. Continue to follow off antibiotics
[2017-02-03 22:03] LABS: PTT 49 SEC (25-37)
[2017-02-03 22:10] VITALS: BP 134/56
[2017-02-04 03:35] LABS: PTT 53 SEC (25-37)
[2017-02-04 07:06] VITALS: BP 126/54
[2017-02-04 08:16] LABS: ABSOLUTE BASOPHIL COUNT 0 /CUMM (0.0-0.2); ABSOLUTE EOSINOPHIL COUNT 0.1 /CUMM (0.0-0.7); ABSOLUTE GRANULOCYTE CT 8.4 /CUMM (1.4-6.5); ABSOLUTE LYMPH COUNT 1.1 /CUMM (1.2-3.4); ABSOLUTE MONOCYTE COUNT 1.2 /CUMM (0.10-0.60); BASOPHIL % 0.4 % (0.0-2.0); EOSINOPHIL % 1.4 % (0-5); GRANULOCYTE % 77.3 % (42.2-75.2); HEMATOCRIT 31.6 % (42-52); MEAN CORPUSCULAR HGB 28.5 PG (27.0-31.0); MEAN CORPUSCULAR VOLUME 92.2 FL (80.0-94.0); PLATELET COUNT 112 /CUMM (130-400); RBC DISTRIBUTION WIDTH 22.1 % (11.5-14.5); RED BLOOD CELL CT 3.42 /CUMM (4.70-6.10); WHITE BLOOD CELL COUNT 10.9 /CUMM (4.8-10.8)
[2017-02-04 08:29] LABS: PT 18.2 SEC (9.4-12.5)
--- NOTE | 2017-02-04 08:49 | PN- Housestaff ---
[address]MA ST[address],JENNIFER 02/04/17 0849: Subjective Follow-up For: Ischemic colitis status post mucus fistula on the left Complaints: abdomen distention, discomfort, cough, Subjective: Patient is seen and examined at the bedside. He was complaining of cough with expectoration. He was also complaining of abdominal distention. Denies of any nausea, vomiting, increased output from colostomy bag. Review of Systems Constitutional: Reports: weakness. Cardiovascular: Reports: orthopena, palpitations, peripheral edema. Denies: chest pain, edema. Respiratory: Reports: cough, orthopnea, short of breath, sputum production. Gastrointestinal: Reports: abdominal pain, bloating, distention, bloody stool, changes in stool. Musculoskeletal: Reports: back pain. Skin: Denies: no symptoms. Neurological/Psychological: Reports: anxiety, depressed. Objective Last 24 Hrs of Vital Signs/I&O Vital Signs Date Time Temp Pulse Resp B/P Pulse O2 O2 Flow FiO2 Ox Delivery Rate 02/04 2159 99.0 70 18 142/62 98 Nasal 2.0L Cannula 02/04 1710 98 Nasal 2.0L Cannula 02/04 1600 Nasal 2.0L Cannula 02/04 1434 97.9 84 20 103/79 98 Nasal 2.0L Cannula 02/04 1200 96 Nasal 2.0L Cannula 02/04 1014 97 Nasal 2.0L Cannula 02/04 0800 Nasal 2.0L Cannula 02/04 0706 98.1 84 20 126/54 98 Nasal 2.0L Cannula 02/04 0008 98 Nasal 2.0L Cannula 02/04 0000 Nasal 2.0L Cannula Intake & Output 02/04 1600 02/04 0800 02/04 0000 Intake Total 640 395 755.6 Output Total 200 200 Balance 640 195 555.6 Intake, IV 240 155 155.6 Intake, Oral 400 240 600 Output, Stool 100 200 Output, Urine 100 Patient 84.51 kg Weight Physical Exam General Appearance: Alert, Oriented X3, No Acute Distress Skin: right lower colostomy with greenish fecal material,left middle part mucus fistula with small amount of blood coming out Cardiovascular: Normal S1, Normal S2 Lungs: bilateral decreased air entry with occasional crackles Abdomen: distended with slight tenderness at the site of incision, although his incision look clear Neurological: Normal Speech Extremities: mild edema Current Medications: Current Medications Sig/Johnna Start time Last Medication Dose Route Stop Time Status Admin Acetaminophen 650 MG .STK-MED ONE 02/04 0828 DC PO 02/04 0829 Acetaminophen 650 MG Q4P PRN 01/31 1100 AC 02/04 PO 0931 Albuterol Sulfate 3 ML TID 01/28 1600 AC 02/04 INH 1705 Calcitriol 0.25 MCG MoWeFr PRN 01/30 0815 AC IV Epoetin Guzman 4,000 UNIT MoWeFr PRN 01/30 0815 AC IV Heparin Sodium 3,400 UNIT ONCE ONE 02/04 1345 DC 02/04 (Porcine) IV 02/04 1346 1355 Heparin Sodium 5,000 UNIT .STK-MED ONE 02/04 1229 DC (Porcine) IV 02/04 1230 Heparin Sodium 3,538 UNIT BOLUS ONE 02/04 0350 DC 02/04 (Porcine) IV 02/04 0351 0424 Heparin Sodium 5,000 UNIT .STK-MED ONE 02/04 0320 DC (Porcine) IV 02/04 0321 Heparin Sodium 25,000 UNIT Q24H 01/28 1800 AC 02/04 (Porcine) IV 1710 Sodium Chloride 500 ML Insulin Aspart 0 AT BEDTIME 02/01 2200 AC SC Insulin Aspart 0 TIDAC 02/01 1200 AC 02/04 SC 1706 Morphine Sulfate 2 MG Q2P PRN 01/28 1730 DC 02/01 IV 1125 Nystatin 1 MAI TID PRN 02/02 1800 AC 02/02 TOP 1838 Pantoprazole Sodium 40 MG DAILY 01/28 1027 AC 02/04 IV 0932 Sodium Chloride 2 SPRAY Q4P PRN 01/31 0430 AC 02/01 CHULA 0021 Trazodone HCl 50 MG AT BEDTIME 01/30 2200 AC 02/04 PO 2131 Warfarin Sodium 5 MG COUMADIN 1700 ONE 02/04 1700 DC 02/04 PO 02/04 1701 1934 Last 24 Hrs of Lab/Satnam Results Last 24 Hrs of Labs/Mics: Laboratory Tests 02/04/171999: APTT 79 H, CBC w Diff NO MAN DIFF REQ, RBC 3.42 L, MCV 92.2, MCH 28.9, RDW 22.4 H, MPV 8.8, Gran % 78.1 H, Lymphocytes % 9.3 L, Monocytes % 11.0 H, Eosinophils % 1.3, Basophils % 0.3, Absolute Granulocytes 8.3 H, Absolute Lymphocytes 1.0 L, Absolute Monocytes 1.2 H, Absolute Eosinophils 0.1, Absolute Basophils 0, PUBS MCHC 31.3 L 02/04/17 1020: APTT 53 H 02/04/17 0700: Anion Gap 8, Estimated GFR 19 L, BUN/Creatinine Ratio 6.7 L, PT 18.2 H, INR 1.74 H, CBC w Diff MAN DIFF ORDERED, RBC 3.42 L, MCV 92.2, MCH 28.5, RDW 22.1 H, MPV 9.0, Gran % 77.3 H, Lymphocytes % 9.9 L, Monocytes % 11.0 H, Eosinophils % 1.4, Basophils % 0.4, Absolute Granulocytes 8.4 H, Segmented Neutrophils 69, Band Neutrophils 2, Absolute Lymphocytes 1.1 L, Lymphocytes 11 L, Monocytes 8, Absolute Monocytes 1.2 H, Eosinophils 2, Absolute Eosinophils 0.1, Basophils 1, Absolute Basophils 0, Metamyelocytes 5 H, Myelocytes 2 H, Platelet Estimate DECREASED, Polychromasia 1+, Hypochromic-Microcytic 1+, Poikilocytosis 1+, Anisocytosis 1+, Microcytic Cells 1+, Ovalocytes 1+, Stomatocytes 1+, PUBS MCHC 31.0 L 02/04/17 0302: APTT 53 H Assessment/Plan Assessment: Plan * There was small amount of blood tracking from the left mucous fistula. Discussed with Dr. Marquez, and also updated surgical PA. According to the surgery. There is no any active intervention required. We will watch for the bleeding. We will continue warfarin and heparin. As the INR come back to therapeutic range. Will stop heparin. * We will check the CBC every 12 hourly till it become stable # S/P exploratory laparotomy with transverse colectomy and end colostomy for ischemic bowel * We will follow up ID and surgery recommendations. * INR -1.76, gave tablet warfarin 5 milligrams today and will follow PT/INR tomorrow * Most likely will be discharged. # Left upper extremity swelling sp AV fistula (improved) * Vascular surgery consult appreciated, recc MEREDITH wrap, being mindful not to occlude fistula, and limb elevation. # ESRD on Dialysis MWF * Nephro on board * HD regularly as suggested by systems engineer * Next HD monday * As per nephrology has outpatient seat at [facility] if discharged this weekend # Left renal obstruction * Asymptomatic obstructed left kidney due to UPJ stone. Risk of surgery for stone removal/stent without sepsis outweighs benefits for this ESRD-dialysis pt. Urology consulted, Dr. Elise. * NTD for now # Hx of COPD * Succesfully extubated on day 0 post surgery. * He has Previous history of MRSA and Pseudomonas in the lower respiratory tract. * Research Environmental Engineer Dr. Perry is on board. * cont TRC/Nebs * mucomyst X 6 doses for thick secretion * f/u [facility] * Continue watch of antibiotic # Anemia - likely 2/2 to ESRD, * H&h low but stable, cont monitoring History of Afib * Currently on IV heparin with Coumadin bridging # Diabetes mellitus * ISS, finger stick glucose Diet: Renal dialysis diet DVT ppx: alps and heparin drip (coumadin started, can dc heparin once INR>2) FULL CODE Problem List: 1. Mesenteric ischemia 2. Surgically created abdominal mucous fistula 3. S/P colectomy 4. CKD (chronic kidney disease) Pain Ratin Pain Location: Abdomen Pain Goal: Remain pain free Pain Plan: Avoid NSAIDs Tomorrow's Labs & Rationales: CBC -follow-up for anemia and the bleeding DVT/Prophylaxis: mechanical, pharmacological BART MARQUEZ MD 02/04/17 1547: Attending MD Review Statement Attending Statement Attending MD Statement: examined this patient, discuss w/resident/PA/IT RISK ADVISOR, agreed w/resident/PA/IT RISK ADVISOR, reviewed EMR data (avail) Attending Assessment/Plan: 72M COPD, recent worsening renal failure now with end-stage renal disease on hemodialysis, paroxysmal atrial fibrillation who is on anticoagulation, chronic heart failure with preserved ejection fraction LVEF of 50%, 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 On heparin drip, bridging to Coumadin, INR not yet therapeutic. Patient reports that he feels well and is eating well. Streaks of bright red blood is noted in ostomy. Patient denies pain, and there is no leakage or tenderness in the area. Plan - Continue heparin drip - Surgical PA notified about bleeding, requested evaluation - Monitor CBC q12h - Continue home medications
--- NOTE | 2017-02-04 10:00 | NUR ---
PATIENT REFUSED MEREDITH WRAP TO LEFT UPPER ARM TO HELP WITH EDEMA S/P SHUNT PLACEMENT 01/26/17. PATIENT AGREED FOR ELEVATION ON PILLOWS. FAMILY CENTERED SPECIALIST AWARE.
[2017-02-04 11:14] LABS: PTT 53 SEC (25-37)
--- NOTE | 2017-02-04 14:00 | NUR ---
NOTIFIED TAX REPRESENTATIVE DR RITCHIE #[id number] OF LEFT MUCOUS FISTULA NOTED BLOOD IN OSTOMY BAG. SURGICAL PA KYARA LOPEZ #[id number] AWARE WELL. PER MAIL DISTRIBUTION SCHEME EXAMINER [place]AY TO GIVE HEPARIN BOLUS PER HEPARIN DRIP PROTOCOL. WILL CONTINUE TO MONITOR.
[2017-02-04 14:34] VITALS: BP 103/79
--- NOTE | 2017-02-04 15:56 | PN- General Surgery ---
See Addendum Subjective Subjective: Was called to bedside to examine mucous fistula after reports of bleeding. Patient without complaints. Denies abdominal discomfort presently. States he has had a persistent cough and feels that may be contributing to the bleeding. Objective Vital Signs and I&Os Vital Signs Date Time Temp Pulse Resp B/P Pulse O2 O2 Flow FiO2 Ox Delivery Rate 02/04 1434 97.9 84 20 103/79 98 Nasal 2.0L Cannula 02/04 1200 96 Nasal 2.0L Cannula 02/04 1014 97 Nasal 2.0L Cannula 02/04 0800 Nasal 2.0L Cannula 02/04 0706 98.1 84 20 126/54 98 Nasal 2.0L Cannula 02/04 0008 98 Nasal 2.0L Cannula 02/04 0000 Nasal 2.0L Cannula 02/03 2210 98.4 63 20 134/56 98 Nasal 2.0L Cannula 02/03 2021 96 Nasal 2.0L Cannula 02/03 1600 Nasal 2.0L Cannula Intake & Output 02/04 1600 02/04 0800 02/04 0000 02/03 1600 02/03 0800 02/03 0000 Intake Total 640 395 755.6 1500 308 204 Output Total 200 200 300 150 260 Balance 640 195 555.6 1200 158 -56 Intake, IV 240 155 155.6 208 104 Intake, Oral 400 581 136 7795 100 100 Output, Stool 100 200 300 50 100 Output, Urine 100 100 160 Patient 186 lb 195 lb Weight Physical Exam: General: Alert and oriented x3, no acute distress Abdomen: Ostomy: Stoma red and viable, loosely formed stool in bag Mucous Fistula: Stoma pink and viable, small clot noted in center of stoma with additional dark blood (appearing to be less than 10 cc) in bag. No evidence of active bleeding from stoma itself with gentle manipulation of tissue. Assessment/Plan Assessment/Plan This is a 72 year old male One week post op from Transverse colectomy with colostomy and mucous fistula creation -Discussed bleeding with Dr. Lopez -No surgical intervention needed at this time, continue to monitor output from fistula site -F/U am labs -Plan to d/c heparin gtt when INR therapeutic with coumadin Core Measures/Miscellaneous Venous Thromboembolism VTE Risk Factors: Age > 40, Surgery VTE Contraindications: No Contraindications VTE Diagnosis: No Beta Amanda Is Beta Amanda a Home Med? No Antibiotics Is Patient on Antibiotics? Yes If Yes: prophylaxis
[2017-02-04 21:01] LABS: ABSOLUTE BASOPHIL COUNT 0 /CUMM (0.0-0.2); ABSOLUTE EOSINOPHIL COUNT 0.1 /CUMM (0.0-0.7); ABSOLUTE GRANULOCYTE CT 8.3 /CUMM (1.4-6.5); ABSOLUTE MONOCYTE COUNT 1.2 /CUMM (0.10-0.60); BASOPHIL % 0.3 % (0.0-2.0); EOSINOPHIL % 1.3 % (0-5); GRANULOCYTE % 78.1 % (42.2-75.2); HEMATOCRIT 31.5 % (42-52); MEAN CORPUSCULAR HGB 28.9 PG (27.0-31.0); MEAN CORPUSCULAR HGB CONC 31.3 G/DL (33.0-37.0); MEAN CORPUSCULAR VOLUME 92.2 FL (80.0-94.0); MEAN PLATELET VOLUME 8.8 FL (7.4-10.4); PLATELET COUNT 104 /CUMM (130-400); RBC DISTRIBUTION WIDTH 22.4 % (11.5-14.5); RED BLOOD CELL CT 3.42 /CUMM (4.70-6.10); WHITE BLOOD CELL COUNT 10.6 /CUMM (4.8-10.8)
[2017-02-04 21:14] LABS: PTT 79 SEC (25-37)
[2017-02-04 21:59] VITALS: BP 142/62
[2017-02-05 07:25] VITALS: BP 130/70
--- NOTE | 2017-02-05 09:00 | PN- Housestaff ---
[address],[facility] 02/05/17 0900: Subjective Follow-up For: Ischemic colitis status post transverse colectomy with colostomy and mucous fistula creation Subjective: Patient was seen and examined this morning, vital signs are stable, no overnight events reported by the nurse with the patient. Yesterday patient had some blood in the left mucosal fistula, today it's less in amount and darker in color. Patient denied abdominal pain, nausea or vomiting. Patient has productive cough of white sputum, denied fever or chills. Patient reported bilateral heel pain, history of gout. Review of Systems Constitutional: Reports: see HPI. Objective Last 24 Hrs of Vital Signs/I&O Vital Signs Date Time Temp Pulse Resp B/P Pulse O2 O2 Flow FiO2 Ox Delivery Rate 02/05 08 97 Nasal 2.0L Cannula 02/05 08 Nasal 2.0L Cannula 02/05 0725 98.7 80 20 130/70 99 02/05 0317 96 Nasal 2.0L Cannula 02/05 0000 Nasal 2.0L Cannula 02/04 2159 99.0 70 18 142/62 98 Nasal 2.0L Cannula 02/04 1710 98 Nasal 2.0L Cannula 02/04 1600 Nasal 2.0L Cannula 02/04 1434 97.9 84 20 103/79 98 Nasal 2.0L Cannula Intake & Output 02/05 1600 02/05 0800 02/05 0000 Intake Total 210 178.9 Output Total 150 200 Balance 60 -21.1 Intake, IV 210 78.9 Intake, Oral 100 Output, Stool 100 150 Output, Urine 50 50 Patient 85.417 kg Weight Physical Exam General Appearance: Alert, Oriented X3, Cooperative, No Acute Distress Skin: No Rashes HEENT: Atraumatic, PERRLA, EOMI, Mucous Membr. moist/pink Neck: Supple Cardiovascular: Regular Rate, Normal S1, Normal S2, No Murmurs Lungs: bilateral diffue ronchi Abdomen: Normal Bowel Sounds, Soft, mild diffue tenderness Neurological: Normal Speech, Strength at 5/5 X4 Ext, Normal Tone, Sensation Intact, Cranial Nerves 3-12 NL, Reflexes 2+ Extremities: No Clubbing, No Cyanosis, No Edema, Normal Pulses, bilateral heel tenderness, no signs of inflammmation Vascular: Normal Pulses Assessment/Plan Assessment: Plan # S/P exploratory laparotomy with transverse colectomy and end colostomy for ischemic bowel * Continue to follow ID and surgery recommendation * Will stop heparin drip and does warfarin 5 mg * History of blood the left mucous fistula back yesterday, today it's less in amount and darkening color # Left upper extremity swelling sp AV fistula (improved) * Vascular surgery consult appreciated, recc MEREDITH wrap, being mindful not to occlude fistula, and limb elevation. # ESRD on Dialysis MWF * Nephro on board * HD regularly as suggested by machine operator farmworker * Next HD monday * As per nephrology has outpatient seat at [facility] if discharged this weekend # Left renal obstruction * Asymptomatic obstructed left kidney due to UPJ stone. Risk of surgery for stone removal/stent without sepsis outweighs benefits for this ESRD-dialysis pt. Urology consulted, Dr. Elise. * NTD for now # Hx of COPD * Succesfully extubated on day 0 post surgery. * He has Previous history of MRSA and Pseudomonas in the lower respiratory tract. * Pollution Control Engineer Dr. Perry is on board. * cont TRC/Nebs * mucomyst X 6 doses for thick secretion * f/u [facility] * Continue watch of antibiotic # Anemia - likely 2/2 to ESRD, * H&h low but stable, cont monitoring History of Afib * Stop IV heparin and dose Coumadin today, will repeat INR tomorrow # Diabetes mellitus * ISS, finger stick glucose #History of gout * Patient reported bilateral heel pain * Voltaren gel for heels Diet: Renal dialysis diet DVT ppx: alps and heparin drip (coumadin started, can dc heparin once INR>2) FULL CODE Problem List: 1. Mesenteric ischemia 2. End-stage renal disease on hemodialysis Pain Ratin Pain Location: None Pain Goal: Pain 4 or less Pain Plan: Mild pain pathway Tomorrow's Labs & Rationales: INR, CBC BART MARQUEZ MD 02/05/17 1500: Attending MD Review Statement Attending Statement Attending MD Statement: examined this patient, discuss w/resident/PA/FLOORING INSTALLER, agreed w/resident/PA/FLOORING INSTALLER, reviewed EMR data (avail) Attending Assessment/Plan: 2M COPD, recent worsening renal failure now with end-stage renal disease on hemodialysis, paroxysmal atrial fibrillation who is on anticoagulation, chronic heart failure with preserved ejection fraction LVEF of 50%, 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 Patient reports that he feels well and is eating well. Dark red blood noted in left mucous ostomy bag. Patient denies pain, and there is no leakage or tenderness in the area. He reports bilateral heel pain today. Plan - Stop heparin drip, as INR is therapeutic - Continue Coumadin tonight - Start Voltaren gel for heels - Follow surgery recommendations - Recheck CBC tomorrow morning - Continue home medications - Possible discharge tomorrow
[2017-02-05 09:42] LABS: ABSOLUTE BASOPHIL COUNT 0 /CUMM (0.0-0.2); ABSOLUTE EOSINOPHIL COUNT 0.2 /CUMM (0.0-0.7); ABSOLUTE GRANULOCYTE CT 8.7 /CUMM (1.4-6.5); ABSOLUTE LYMPH COUNT 0.9 /CUMM (1.2-3.4); ABSOLUTE MONOCYTE COUNT 1.2 /CUMM (0.10-0.60); BASOPHIL % 0.2 % (0.0-2.0); EOSINOPHIL % 1.4 % (0-5); GRANULOCYTE % 79.3 % (42.2-75.2); MEAN CORPUSCULAR HGB 28.6 PG (27.0-31.0); MEAN CORPUSCULAR HGB CONC 31.4 G/DL (33.0-37.0); MEAN CORPUSCULAR VOLUME 91.1 FL (80.0-94.0); MEAN PLATELET VOLUME 8.7 FL (7.4-10.4); PLATELET COUNT 100 /CUMM (130-400); RED BLOOD CELL CT 3.19 /CUMM (4.70-6.10)
[2017-02-05 10:09] LABS: PT 22.6 SEC (9.4-12.5); PTT 79 SEC (25-37)
--- NOTE | 2017-02-05 10:30 | NUR ---
CALLED FRONT MAKER MARLEN TO NOTIFY THAT PT'S INR 2.17. GOAL IS >2 IN ORDER TO DC HEPARIN GTT. FRONT MAKER MARLEN TO REVIEW AND PLACE ORDERS FOR CARE/COUMADIN DOSING. WILL MONITOR.
[2017-02-05 14:42] VITALS: BP 140/80
--- NOTE | 2017-02-05 18:23 | PN- General Surgery ---
Surgical Brief Attending Note Brief Attending Note: ostomies viable, no active bleeding, continue present care
[2017-02-05 22:25] VITALS: BP 160/68
[2017-02-06 06:35] VITALS: BP 140/60
--- NOTE | 2017-02-06 08:00 | PN- Housestaff ---
See Addendum [address],[facility] 02/06/17 0800: Subjective Follow-up For: Ischemic colitis status post surgical internvention Subjective: Stable and Afebrile, but mildly distressed. Complaining of dyspnea, he is saturating upper 90s on 2 L of oxygen. Patient has mild cough productive of white sputum, he was waiting for his breathing treatments. Patient denies fever , chills, chest pain, or palpitation. Review of Systems Constitutional: Reports: see HPI. Objective Last 24 Hrs of Vital Signs/I&O Vital Signs Date Time Temp Pulse Resp B/P Pulse O2 O2 Flow FiO2 Ox Delivery Rate 02/06 0806 97 Nasal 2.0L Cannula 02/06 0635 99.4 90 20 140/60 94 Nasal Cannula 02/06 0311 98 Nasal 2.0L Cannula 02/06 0000 Nasal 2.0L Cannula 02/05 2225 97.6 94 18 160/68 94 Nasal 2.0L Cannula 02/05 1655 99 Nasal 2.0L Cannula 02/05 1600 94 Nasal 2.0L Cannula 02/05 1442 98.0 69 20 140/80 96 Intake & Output 02/06 1600 02/06 0800 02/06 0000 Intake Total 360 360 Output Total 100 Balance 360 260 Intake, Oral 360 360 Output, Urine 100 Patient 85.729 kg Weight Physical Exam General Appearance: Alert, Oriented X3, Cooperative, Mild Distress Skin: No Rashes HEENT: Atraumatic, PERRLA, EOMI, Mucous Membr. moist/pink Cardiovascular: Regular Rate, Normal S1, Normal S2, No Murmurs Lungs: crackles and wheezing over both lungs with mild decrease in air entry on the left side when compared to the right side Abdomen: Normal Bowel Sounds, Soft, No Tenderness, left side colectomy and right side colostomy, the colostomy is filled with light brown semen formed stool Neurological: Normal Speech Extremities: No Clubbing, No Cyanosis, trace edema Current Medications: Current Medications Sig/Johnna Start time Last Medication Dose Route Stop Time Status Admin Acetaminophen 650 MG Q4P PRN 01/31 1100 AC 02/05 PO 0113 Albuterol Sulfate 3 ML Q4P PRN 02/06 08 CAN INH Albuterol Sulfate 2 PUF Q4P PRN 02/06 08 AC INH Albuterol Sulfate 3 ML EVERY 4 HRS/AWAKE 02/05 1600 AC 02/06 INH 0756 Albuterol Sulfate 3 ML TID 01/28 1600 DC 02/05 INH 1116 Calcitriol 0.25 MCG MoWeFr PRN 01/30 0815 AC IV Diclofenac Sodium 1 MAI 4 TIMES/DAY 02/05 1400 AC 02/05 TOP 2132 Epoetin Guzman 4,000 UNIT MoWeFr PRN 01/30 0815 AC IV Heparin Sodium 25,000 UNIT Q24H 01/28 1800 DC 02/04 (Porcine) IV 1710 Sodium Chloride 500 ML Insulin Aspart 0 AT BEDTIME 02/01 2200 AC SC Insulin Aspart 0 TIDAC 02/01 1200 AC 02/05 SC 0759 Nystatin 1 MAI TID PRN 02/02 1800 AC 02/02 TOP 1838 Pantoprazole Sodium 40 MG DAILY 01/28 1027 AC 02/05 IV 0927 Sodium Chloride 2 SPRAY Q4P PRN 01/31 0430 AC 02/05 CHULA 2133 Trazodone HCl 50 MG AT BEDTIME 01/30 2200 AC 02/05 PO 2133 Warfarin Sodium 5 MG COUMADIN 1700 ONE 02/05 1700 DC 02/05 PO 02/05 1701 1600 Last 24 Hrs of Lab/Satnam Results Last 24 Hrs of Labs/Mics: Laboratory Tests 02/06/17 0830: Sodium Pending, Potassium Pending, Chloride Pending, Carbon Dioxide Pending, Anion Gap Pending, BUN Pending, Creatinine Pending, BUN/Creatinine Ratio Pending , Glucose Pending, Calcium Pending, Phosphorus Pending, Magnesium Pending, Albumin Pending, PT Pending, INR Pending, CBC w Diff Pending, WBC Pending, RBC Pending, Hgb Pending, Hct Pending, MCV Pending, MCH Pending, RDW Pending, Plt Count Pending, MPV Pending, PUBS MCHC Pending 02/05/17 2100: APTT Cancelled 02/05/17 0900: APTT Cancelled 02/05/17 0900: Anion Gap 6, Estimated GFR 12 L, BUN/Creatinine Ratio 6.8 L, PT 22.6 H, INR 2.17 H, APTT 79 H, CBC w Diff NO MAN DIFF REQ, RBC 3.19 L, MCV 91.1, MCH 28.6 , RDW 22.0 H, MPV 8.7, Gran % 79.3 H, Lymphocytes % 8.1 L, Monocytes % 11.0 H, Eosinophils % 1.4, Basophils % 0.2, Absolute Granulocytes 8.7 H, Absolute Lymphocytes 0.9 L, Absolute Monocytes 1.2 H, Absolute Eosinophils 0.2, Absolute Basophils 0, PUBS MCHC 31.4 L Assessment/Plan Assessment: Plan # S/P exploratory laparotomy with transverse colectomy and end colostomy for ischemic bowel * Continue to follow ID and surgery recommendation * We will continue warfarin 5 mg daily * Patient is stable and most likely will be discharge to short-term rehabilitation as soon as we find a bed for him # Left upper extremity swelling sp AV fistula Left arm is very swollen this morning, patient has left AV fistula on the left arm that was recently placed. * We will order left upper extremity ultrasound # ESRD on Dialysis MWF * Nephro on board * Has a dialysis today * As per nephrology has outpatient seat at [facility] post discharge # Left renal obstruction Asymptomatic obstructed left kidney due to UPJ stone. Risk of surgery for stone removal/stent without sepsis outweighs benefits for this ESRD-dialysis pt. Urology consulted, Dr. Elise. * NTD for now # Hx of COPD Succesfully extubated on day 0 post surgery. He has Previous history of MRSA and Pseudomonas in the lower respiratory tract. Clinical Informatics Specialist Dr. Perry is on board. This morning patient this morning patient still complaining of mild cough productive of white sputum, we will order chest x-ray given the increase in white blood cell, crackles, and wheezing and feeling of dyspnea on COPD patient. * Xray pending * cont TRC/Nebs * mucomyst X 6 doses for thick secretion * f/u [facility] * Continue watch of antibiotic for now #Anemia most likely 2/2 ESRD * H&h low but stable, cont' monitoring #History of Afib * We will dose Coumadin daily # Diabetes mellitus * ISS, finger stick glucose #History of gout Patient continued to complain of heel pain but without any symptom or signs suggestive of gout. * Patient reported bilateral heel pain * Voltaren gel for heels Diet: Renal dialysis diet DVT ppx: alps and heparin drip (coumadin started, can dc heparin once INR>2) FULL CODE Problem List: 1. Mesenteric ischemia 2. End-stage renal disease on hemodialysis Pain Ratin Pain Location: Abdomen Pain Goal: Remain pain free Pain Plan: See assessment and plan Tomorrow's Labs & Rationales: BEP if did not get discharged today HERMINIA LINDO 02/06/17 1114: Attending MD Review Statement Attending Statement Attending MD Statement: examined this patient, discuss w/resident/PA/CARBOY FILLER, agreed w/resident/PA/CARBOY FILLER, discussed with family, reviewed EMR data (avail), discussed with nursing, discussed with case mgmt, reviewed images Attending Assessment/Plan: 72M COPD, recent worsening renal failure now with end-stage renal disease on hemodialysis, paroxysmal atrial fibrillation who is on anticoagulation, chronic heart failure with preserved ejection fraction LVEF of 50%, 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 Plan - d/sandy heparin drip, as INR is therapeutic - Continue Coumadin - Follow surgery recommendations - Continue home medications - Possible discharge to [facility], arrange HD as o/p, f/u surgery for dc planning. - dyspnea at rest, repeat chest xray suggestive of right sided worsening infiltrates f/u ID. started on unasyn and steroid, f/u pulmonary. - left upper extremity edema USG negative for DVT, vascular surgery f/u.
--- NOTE | 2017-02-06 08:20 | NUR ---
PT LEFT FLOOR VIA PTS OWN BED TO DIALYSIS.
[2017-02-06 08:44] LABS: ABSOLUTE BASOPHIL COUNT 0 /CUMM (0.0-0.2); ABSOLUTE EOSINOPHIL COUNT 0.1 /CUMM (0.0-0.7); ABSOLUTE LYMPH COUNT 0.8 /CUMM (1.2-3.4); ABSOLUTE MONOCYTE COUNT 1.3 /CUMM (0.10-0.60); BASOPHIL % 0.3 % (0.0-2.0); HEMATOCRIT 30.5 % (42-52); MEAN CORPUSCULAR HGB 28.9 PG (27.0-31.0); MEAN CORPUSCULAR HGB CONC 31.7 G/DL (33.0-37.0); MEAN PLATELET VOLUME 8.6 FL (7.4-10.4); PLATELET COUNT 103 /CUMM (130-400); RED BLOOD CELL CT 3.35 /CUMM (4.70-6.10); WHITE BLOOD CELL COUNT 13.2 /CUMM (4.8-10.8)
[2017-02-06 08:50] LABS: PT 28.2 SEC (9.4-12.5)
[2017-02-06 09:01] LABS: GRANULOCYTE % 83.3 % (42.2-75.2)
--- NOTE | 2017-02-06 09:16 | PN- Nephrology ---
Assessment/Plan Assessment: ESRD - I spoke to him in detail regarding his intradialytic hypotension as an outpatient. He reports taking his metoprolol on the mornings which he has dialysis. I recommended against this. We can also raise his dry weight to see if this helps to 85kg. 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 Obstructing Left renal pelvic stone - Has been evaluated by Urology - no need for intervention. A fib - INR 1.98 on admission. Is therapeutic again. Suggestion: -Dialysis today -Will raise outpatient EDW to 85kg. -Hold anti-hypertensives on morning of dialysis Please call [phone] with ?'s Subjective Subjective: Pt seen and examined at dialysis WBC up to 13.2; no new micro Coughing - "feels like has to get something up" Feeling OK Objective Vital Signs and I&Os Vital Signs Date Time Temp Pulse Resp B/P Pulse O2 O2 Flow FiO2 Ox Delivery Rate 02/06 0806 97 Nasal 2.0L Cannula 02/06 0635 99.4 90 20 140/60 94 Nasal Cannula 02/06 0311 98 Nasal 2.0L Cannula 02/06 0000 Nasal 2.0L Cannula 02/05 2225 97.6 94 18 160/68 94 Nasal 2.0L Cannula 02/05 1655 99 Nasal 2.0L Cannula 02/05 1600 94 Nasal 2.0L Cannula 02/05 1442 98.0 69 20 140/80 96 Intake & Output 02/06 1600 02/06 0400 02/05 1600 02/05 0400 02/04 1600 02/04 0400 Intake Total 360 360 967.8 178.9 1035 755.6 Output Total 100 715 200 200 200 Balance 360 260 252.8 -21.1 835 555.6 Intake, IV 367.8 78.9 395 155.6 Intake, Oral 360 360 600 100 640 600 Output, Other 15 Output, Stool 250 150 100 200 Output, Urine 100 450 50 100 Patient 189 lb 188 lb 186 lb Weight Physical Exam: Gen - OK appearing HIRAL Current Medications: Current Medications Sig/Johnna Start time Last Medication Dose Route Stop Time Status Admin Acetaminophen 650 MG Q4P PRN 01/31 1100 AC 02/05 PO 0113 Albuterol Sulfate 3 ML Q4P PRN 02/06 0800 CAN INH Albuterol Sulfate 2 PUF Q4P PRN 02/06 0800 AC INH Albuterol Sulfate 3 ML EVERY 4 HRS/AWAKE 02/05 1600 AC 02/06 INH 0756 Albuterol Sulfate 3 ML TID 01/28 1600 DC 02/05 INH 1116 Calcitriol 0.25 MCG MoWeFr PRN 01/30 0815 AC IV Diclofenac Sodium 1 MAI 4 TIMES/DAY 02/05 1400 AC 02/05 TOP 2132 Epoetin Guzman 4,000 UNIT MoWeFr PRN 01/30 0815 AC IV Heparin Sodium 25,000 UNIT Q24H 01/28 1800 DC 02/04 (Porcine) IV 1710 Sodium Chloride 500 ML Insulin Aspart 0 AT BEDTIME 02/01 2200 AC SC Insulin Aspart 0 TIDAC 02/01 1200 AC 02/05 SC 0759 Nystatin 1 MAI TID PRN 02/02 1800 AC 02/02 TOP 1838 Pantoprazole Sodium 40 MG DAILY 01/28 1027 AC 02/05 IV 0927 Sodium Chloride 2 SPRAY Q4P PRN 01/31 0430 AC 02/05 CHULA 2133 Trazodone HCl 50 MG AT BEDTIME 01/30 2200 AC 02/05 PO 2133 Warfarin Sodium 5 MG COUMADIN 1700 ONE 02/05 1700 DC 02/05 PO 02/05 1701 1600 Results Pertinent Lab Results: Laboratory Tests 02/06 02/05 02/05 0830 2100 0900 Chemistry Sodium Pending Potassium Pending Chloride Pending Carbon Dioxide Pending Anion Gap Pending BUN Pending Creatinine Pending BUN/Creatinine Ratio Pending Glucose Pending Calcium Pending Phosphorus Pending Magnesium Pending Albumin Pending Coagulation PT (9.4 - 12.5 SEC) 28.2 H INR (0.90 - 1.17) 2.71 H APTT Cancelled Cancelled Hematology CBC w Diff NO MAN DIFF REQ WBC (4.8 - 10.8 /CUMM) 13.2 H RBC (4.70 - 6.10 /CUMM) 3.35 L Hgb (14.0 - 18.0 G/DL) 9.7 L Hct (42 - 52 %) 30.5 L MCV (80.0 - 94.0 FL) 91.0 MCH (27.0 - 31.0 PG) 28.9 RDW (11.5 - 14.5 %) 21.0 H Plt Count (130 - 400 /CUMM) 103 L MPV (7.4 - 10.4 FL) 8.6 Gran % (42.2 - 75.2 %) 83.3 H Lymphocytes % (20.5 - 51.1 %) 5.9 L Monocytes % (1.7 - 9.3 %) 9.5 H Eosinophils % (0 - 5 %) 1.0 Basophils % (0.0 - 2.0 %) 0.3 Absolute Granulocytes (1.4 - 6.5 /CUMM) 11.0 H Absolute Lymphocytes (1.2 - 3.4 /CUMM) 0.8 L Absolute Monocytes (0.10 - 0.60 /CUMM) 1.3 H Absolute Eosinophils (0.0 - 0.7 /CUMM) 0.1 Absolute Basophils (0.0 - 0.2 /CUMM) 0 PUBS MCHC (33.0 - 37.0 G/DL) 31.7 L 02/05 02/04 0900 2000 Chemistry Sodium (137 - 145 mmol/L) 134 L Potassium (3.5 - 5.1 mmol/L) 4.1 Chloride (98 - 107 mmol/L) 102 Carbon Dioxide (22 - 30 mmol/L) 25 Anion Gap (5 - 16) 6 BUN (9 - 20 mg/dL) 32 H Creatinine (0.7 - 1.2 mg/dL) 4.7 H Estimated GFR (>60 ml/min) 12 L BUN/Creatinine Ratio (7 - 25 %) 6.8 L Coagulation PT (9.4 - 12.5 SEC) 22.6 H INR (0.90 - 1.17) 2.17 H APTT (25 - 37 SEC) 79 H 79 H Hematology CBC w Diff NO MAN DIFF REQ NO MAN DIFF REQ WBC (4.8 - 10.8 /CUMM) 11.0 H 10.6 RBC (4.70 - 6.10 /CUMM) 3.19 L 3.42 L Hgb (14.0 - 18.0 G/DL) 9.1 L 9.9 L Hct (42 - 52 %) 29.0 L 31.5 L MCV (80.0 - 94.0 FL) 91.1 92.2 MCH (27.0 - 31.0 PG) 28.6 28.9 RDW (11.5 - 14.5 %) 22.0 H 22.4 H Plt Count (130 - 400 /CUMM) 100 L 104 L MPV (7.4 - 10.4 FL) 8.7 8.8 Gran % (42.2 - 75.2 %) 79.3 H 78.1 H Lymphocytes % (20.5 - 51.1 %) 8.1 L 9.3 L Monocytes % (1.7 - 9.3 %) 11.0 H 11.0 H Eosinophils % (0 - 5 %) 1.4 1.3 Basophils % (0.0 - 2.0 %) 0.2 0.3 Absolute Granulocytes (1.4 - 6.5 /CUMM) 8.7 H 8.3 H Absolute Lymphocytes (1.2 - 3.4 /CUMM) 0.9 L 1.0 L Absolute Monocytes (0.10 - 0.60 /CUMM) 1.2 H 1.2 H Absolute Eosinophils (0.0 - 0.7 /CUMM) 0.2 0.1 Absolute Basophils (0.0 - 0.2 /CUMM) 0 0 PUBS MCHC (33.0 - 37.0 G/DL) 31.4 L 31.3 L 02/04 02/04 02/04 02/03 1020 0700 0302 2125 Chemistry Sodium (137 - 145 mmol/L) 137 Potassium (3.5 - 5.1 mmol/L) 4.0 Chloride (98 - 107 mmol/L) 103 Carbon Dioxide (22 - 30 mmol/L) 26 Anion Gap (5 - 16) 8 BUN (9 - 20 mg/dL) 22 H Creatinine (0.7 - 1.2 mg/dL) 3.3 H Estimated GFR (>60 ml/min) 19 L BUN/Creatinine Ratio (7 - 25 %) 6.7 L Coagulation PT (9.4 - 12.5 SEC) 18.2 H INR (0.90 - 1.17) 1.74 H APTT (25 - 37 SEC) 53 H 53 H 49 H Hematology CBC w Diff MAN DIFF ORDERED WBC (4.8 - 10.8 /CUMM) 10.9 H RBC (4.70 - 6.10 /CUMM) 3.42 L Hgb (14.0 - 18.0 G/DL) 9.8 L Hct (42 - 52 %) 31.6 L MCV (80.0 - 94.0 FL) 92.2 MCH (27.0 - 31.0 PG) 28.5 RDW (11.5 - 14.5 %) 22.1 H Plt Count (130 - 400 /CUMM) 112 L MPV (7.4 - 10.4 FL) 9.0 Gran % (42.2 - 75.2 %) 77.3 H Lymphocytes % (20.5 - 51.1 %) 9.9 L Monocytes % (1.7 - 9.3 %) 11.0 H Eosinophils % (0 - 5 %) 1.4 Basophils % (0.0 - 2.0 %) 0.4 Absolute Granulocytes (1.4 - 6.5 /CUMM) 8.4 H Segmented Neutrophils (42.2 - 75.2 %) 69 Band Neutrophils (0.0 - 5.0 %) 2 Absolute Lymphocytes (1.2 - 3.4 /CUMM) 1.1 L Lymphocytes (20.5 - 51.1 %) 11 L Monocytes (1.7 - 9.3 %) 8 Absolute Monocytes (0.10 - 0.60 /CUMM) 1.2 H Eosinophils (0 - 5.0 %) 2 Absolute Eosinophils (0.0 - 0.7 /CUMM) 0.1 Basophils (0.0 - 2.0 %) 1 Absolute Basophils (0.0 - 0.2 /CUMM) 0 Metamyelocytes (0.0 - 1.0 %) 5 H Myelocytes (0 - 0 %) 2 H Platelet Estimate (ADEQUATE) DECREASED Polychromasia 1+ Hypochromic-Microcytic 1+ Poikilocytosis 1+ Anisocytosis 1+ Microcytic Cells 1+ Ovalocytes 1+ Stomatocytes 1+ PUBS MCHC (33.0 - 37.0 G/DL) 31.0 L 02/03 02/03 1354 0998 Chemistry Sodium Cancelled Potassium Cancelled Chloride Cancelled Carbon Dioxide Cancelled Anion Gap Cancelled BUN Cancelled Creatinine Cancelled BUN/Creatinine Ratio Cancelled Calcium Cancelled Coagulation APTT (25 - 37 SEC) 106 *H Imaging/Other Studies: EXAM TYPE: RAD - XRY-PORTABLE CHEST XRAY EXAMINATION: XR PORTABLE CHEST CLINICAL INFORMATION: Status post lobectomy COMPARISON: CXR from 01/30/2017 TECHNIQUE: Portable AP view of the chest was obtained. FINDINGS: Lungs are symmetrically expanded. No acute pulmonary edema, focal consolidation or pleural effusion. The central venous catheter is in stable position with its tip projecting over the right atrium. No pneumothorax. Again noted is a biventricular AICD/pacemaker. Stable cardiomegaly. Atherosclerotic aorta. No acute osseous abnormality. IMPRESSION: 1. No evidence of lobectomy. 2. Mild cardiomegaly without pulmonary edema. EXAM TYPE: RAD - XRY-PORTABLE CHEST XRAY EXAMINATION: XR PORTABLE CHEST CLINICAL INFORMATION: Status post lobectomy COMPARISON: CXR from 01/30/2017 TECHNIQUE: Portable AP view of the chest was obtained. FINDINGS: Lungs are symmetrically expanded. No acute pulmonary edema, focal consolidation or pleural effusion. The central venous catheter is in stable position with its tip projecting over the right atrium. No pneumothorax. Again noted is a biventricular AICD/pacemaker. Stable cardiomegaly. Atherosclerotic aorta. No acute osseous abnormality.
--- NOTE | 2017-02-06 09:25 | Discharge Summary ---
Visit Information Visit Dates Admission Date: 01/28/17 Discharge Date: 02/09/17 Hospital Course Course Attending Physician: KIKI STREET,ADALBERTO Mya Primary Care Physician: BRITT STREET,YSABEL Burgos Hospital Course: 72-year-old male with significant COPD, recent worsening renal failure now with end-stage renal disease on hemodialysis, recent AV fistula, paroxysmal atrial fibrillation who is on anticoagulation, chronic heart failure with preserved ejection fraction LVEF of 50%, insulin dependent diabetes probably type II, peripheral vascular disease, coronary artery disease, history of monoclonal gammaglobulin neuropathy of unknown significance, was admitted to surgery service for ischemic bowel, for which he underwent exploratory laparotomy with transverse colectomy and end colostomy. Post operatively, he was hypotensive, and was anticipated to be a difficult extubation. He was managed in the ICU post op. His blood pressure was responsive to fluid boluses, he was on levophed for less than a day, and received 2 days of steroids , with blood pressure currently stable. He was extubated post op day 0 (the same day) and his respiratory status has been stable. He is noted to have left renal obstruction, but he does not make urine at baseline (or oligouric), urology was consulted. Dr. Elise has seen him, and recommended conservative management of the stone in absence of sepsis given his medical commordities. He has a recent AV fistula on the left arm, with his left arm being edematous, but has improved with MEREDITH wrap and elevation. Dr. Jackson has been consulted. Ultrasound of left extremity was done on February 06 because of worsening edema and ruling out DVT/superficial thrombophlebitis and that came back negative for any upper extremity DVT. Arterial Doppler was done the next day to check for AV fistulas patency and we found that AV fistula was widely patent but 3.3 cm hypo- a quick focus superior to the incision site which was suggestive of hematoma was found. Vascular surgery/general surgical PA was consulted and their recommendations are to elevate the arm and no muscular surgical intervention was needed. Given his multiple medical commordities, his services were changed to medical services. He was transferred to general medical floor and was following with surgery regularly. Patient was on heparin drip first and we bridged with warfarin until INR was therapeutic and when his INR reached therapeutic levels will be stopped heparin drip and patient was continued on warfarin to keep INR therapeutic between 2 and 3. Patient will be discharged to short-term rehabilitation. Assessment/Plan: # S/P exploratory laparotomy with transverse colectomy and end colostomy for ischemic bowel * Patient will follow up with surgery as outpatient for further management and we will recommend patient to follow up with Dr. Kayla Valladares in 1 week of discharge for further recommendations # History of Afib * Currently his INR is therapeutic and we will recommend to follow-up on INR to keep between 2 and 3 and take Coumadin daily. # Left upper extremity swelling sp AV fistula (improved) * Vascular surgery consult appreciated, recc MEREDITH wrap, being mindful not to occlude fistula, and limb elevation. * Patient needs to follow up with was clear surgery as outpatient # ESRD on Dialysis MWF * Patient will continue dialysis on scheduled dates * Patient had an extra session of dialysis on , February 09. Nephrology recommended that they will raise outpatient EDW 285 KG. Patient was instructed to hold antihypertensives on mornings of dialysis # Left renal obstruction - asymptomatic obstructed left kidney due to UPJ stone. Risk of surgery for stone removal/stent without sepsis outweighs benefits for this ESRD-dialysis pt. patient was treated conservatively # Hx of COPD - Succesfully extubated - # Anemia - likely 2/2 to ESRD, # Diabetes mellitus * ISS, finger stick glucose Complications: None Allergies: Coded Allergies: No Known Allergies (01/25/17) Significant Procedures: Operative/Inv Procedure Report Surgery Date: 01/28/17 Name of Procedure: Resection of gangrenous transverse colon creation of end colostomy on the right and a mucous fistula on the left Pre-Operative Diagnosis: Enteric ischemia Post-Operative Diagnosis: Gangrenous transverse colon Estimated Blood Loss: scant Surgeon/Electric Crane Operator: KIKI STREET,ADALBERTO AGUIRRE Anesthesia: general endotracheal tube Operative/Procedure Note Note: Patient was positioned supine, after successful induction of general anesthesia Block was done second timeout was done patient's abdomen was clipped prepped and draped in usual sterile fashion you could palpate the transverse colon. The midline laparotomy incision was planned in the epigastrium. This was made with a 10 blade and deepened through the very thin subcutaneous layer and through the peritoneum sharply there was no free air that was a little bit of free fluid you could see a gangrenous but intact transverse colon. We identified the proximal extent first by mobilizing the right colon laterally along the white line of Toldt inferiorly to free up the retroperitoneal attachments to the terminal ileum and appendix which were adherent continuing superiorly to the level of the duodenum. The gangrene demarcated at the hepatic flexure which was taken down. The distal extent of the gangrene we assessed by mobilizing the transverse colon to the left towards the spleen but not all the way we did not take down the splenic flexure but we did have to mobilize the omentum off the colon. We divided the intervening mesentery right at the border of the bowel wall with LigaSure and we chose two spots to resect not just visually but also by Doppler. We used a BEATRIS stapler to divide and complete the resection decision was made to not do a primary anastomosis given the acute situation in a patient with heart long and kidney disease and also the bowel being unprepped. So based on the laxity of the mobilization we chose to spots in the upper abdomen bilaterally, one for the right colon that would be an end colostomy and on the left one for the very distal transverse colon that would serve as a mucous fistula, plan being to eventually reanastomose after he recovers. Soft tissues are 2 spots on the skin. Both grafted the same way make a circular incision in the skin about the size of a quarter with the cutting cautery core out the subcutaneous fat opened the fascia sharply the direction of its fibers and split the underlying muscle and comes to the peritoneum make a small cruciate incision so that you can admit 2 fingerbreadths. Then using a Sandra clamp gently bring up the stapled end of the colon we did this on both sides though on the left you had to make an opening through an avascular part of the omentum to bring up that end of the colon and we irrigated and aspirated the peritoneum then closed the midline incision with a running 0 Maxon suture followed by a few subdermal Vicryl sutures followed by chung covered that incision and then matured both ostomies in Elicia fashion with 8 equally spaced 3-0 Vicryl sutures interrupted. This was followed by the ostomy appliances the midline was dressed with gauze and tape. EBL minimal lap and sponge counts correct wound expectancy clean/irrigated , IV fluids crystalloid complications none patient tolerated the procedure well was kept intubated and returned to recovery room in satisfactory condition. Disposition Summary Disposition Principal Diagnosis: Enteric ischemia Additional Diagnosis: End-stage renal disease on dialysis Discharge Disposition: SNF Discharge Instructions General Discharge Information Code Status: Full Code Patient's Diet: Renal dialysis diet Patient's Activity: As tolerated with assistance Follow-Up Instructions/Appts: Please follow up with your PCP within one week of discharge. Please follow up with surgery upon discharge. Please follow-up was vascular surgery on discharge Please continue elevating left arm Continue dialysis on scheduled days Please don't take antihypertensives on mornings of dialysis days These continue to take your medications as prescribed. Medications at Discharge Discharge Medications: Continue taking these medications: Folic Acid (Folic Acid) 1 MG TABLET 1 Tablet ORAL DAILY Comments: Last Taken:01/21/17 Time:8AM Insulin Lispro (Humalog) 100 UNIT/ML VIAL Units Inject into fatty tissue 3 TIMES DAILY BEFORE MEALS Days = 30 Instructions: Blood sugar Insulin dose < 80mg/dl No dose 80-150 mg/dl no dose 151-200mg/dl 1 unit 201-250mg/dl 2 units 251-300mg/dl 3 units 301-350mg/dl 4 units 351-400mg/dl 6 units 351-400mg/dl 6 units > 400 8 call MD PLEASE RESUME ON MonDec 151-200 0 Comments: Last Taken: 12/20/16 Time: Allopurinol (Allopurinol) 100 MG TABLET 1 Tablet ORAL DAILY Qty = 30 Comments: Last Taken: 01/21/17 Time: 845 AM Warfarin Sodium (Coumadin) 5 MG TABLET 0.5-1 Tablet ORAL As Directed Instructions: please dose Coumadin as per INR. Comments: PER PT Last Taken: 12/19/16 Time: 11:00 PM Budesonide/Formoterol Fumarate (Symbicort 80-4.5 Mcg Inhaler) 80 MCG-4.5 MCG/ ACTUATION HFA.AER.AD 2 Puff Inhale through mouth TWICE DAILY Days = 30 Comments: Guaifenesin (Mucinex) 600 MG TAB.ER.12H 1 Tablet ORAL TWICE DAILY Qty = 20 Comments: Last Taken: 12/20/16 Time: 10:00 AM Loratadine (Claritin) 10 MG TABLET 1 Tablet ORAL DAILY Days = 30 Comments: Last Taken: 12/20/16 Time: 10:00 AM Mometasone Furoate (Nasonex) 50 MCG SPRAY.PUMP 2 [place] Both sides of nose DAILY Days = 5 Albuterol Sulfate (Albuterol Sulfate) 0.63 MG/3 ML VIAL.NEB 1 Vial Inhale Solution THREE TIMES DAILY as needed for COPD Albuterol Sulfate (Proventil Hfa) 90 MCG HFA.AER.AD 2 Puff Inhale through mouth 4 TIMES A DAY as needed for COPD Comments: Last Taken: 01/21/17 Time: 945 AM Aspirin (Ecotrin*) 81 MG TABLET.DR 1 Tablet ORAL DAILY Comments: Last Taken: 01/21/17 Time: 845 AM Furosemide (Lasix) 80 MG TABLET 1 Tablet ORAL DAILY Comments: Last Taken:01/21/17 Time:8AM Isosorbide Mononitrate (Isosorbide Mononitrate ER) 60 MG TAB.ER.24H 1 Tablet ORAL DAILY Comments: Last Taken:01/21/17 Time:8AM Metoprolol Tartrate (Lopressor) 50 MG TABLET 1 Tablet ORAL TWICE DAILY Comments: Last Taken:01/21/17 Time:8AM Omeprazole (Omeprazole) 20 MG CAPSULE.DR 1 Capsule ORAL DAILY Comments: Last Taken:01/21/17 Time:8AM Simvastatin (Zocor*) 20 MG TABLET 1 Tablet ORAL Every night Comments: NOT GIVEN Calcitriol (Calcitriol) 1 MCG/ML AMPUL 1 Microgram INTRAVEN MoWeFr Days = 28 Calcium Carbonate (Calcium Carbonate) 500 MG CALCIUM (1,250 MG) TABLET 1 Tablet ORAL 3 TIMES DAILY BEFORE MEALS Days = 60 Colchicine (Colchicine) 0.6 MG TABLET 300 Microgram ORAL DAILY Qty = 60 Start taking the following new medications: Augmentin (Augmentin 500-125 Tablet) 500 MG-125 MG TABLET 500 Milligram ORAL 5 PM Qty = 1 No Refills Instructions: take 1 tablet tomorrow at 5 PM( after dialysis) then stopped this medication. Prednisone (Prednisone) 20 MG TABLET 40 Milligram ORAL DAILY Qty = 1 No Refills Instructions: please take this pill on 02/10/17 at 2 pm Copies To: BRITT STREET,YSABEL Burgos Attending MD Review Statement Documenting Attending: HERMINAI LINDO MD Other Findings: 72M COPD, recent worsening renal failure now with end-stage renal disease on hemodialysis, paroxysmal atrial fibrillation who is on anticoagulation, chronic heart failure with preserved ejection fraction LVEF of 50%, 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 Plan - ischemic bowel s/p resection and colostomy placement, routine colostomy care. + Output. - ESRD on dialysis, plan as per nephrology, dialysis. - Continue Coumadin INR therapeutic - dyspnea at rest, repeat chest xray suggestive of right sided worsening infiltrates f/u ID. started on unasyn and steroid, f/u pulmonary. oxygen supplementation as needed, encourage incentive spirometry. elevate head end of bed. complete steroid x 5days total. changed i/v abx to PO abx. abx course as per ID. - left upper extremity edema USG negative for DVT, USG arterial without any significant stenosis but hematoma vs seroma. vascular surgery no acute intervention needed. f/u o/p. d/c planning to STR. arranged HD as o/p, f/u nephrology in 1 week, vascular surgery in 2-3 weeks, PCP in 1 week, f/u surgery in 2 weeks.
--- NOTE | 2017-02-06 11:49 | PN- Infect Dx ---
Subjective Subjective: Afebrile. He complains of increased shortness of breath, with a persistent cough. He also notes arthralgias and bilateral heel discomfort. Objective Last 24 Hrs of Vital Signs/I&O Vital Signs Date Time Temp Pulse Resp B/P Pulse O2 O2 Flow FiO2 Ox Delivery Rate 02/06 0806 97 Nasal 2.0L Cannula 02/06 0635 99.4 90 20 140/60 94 Nasal Cannula 02/06 0311 98 Nasal 2.0L Cannula 02/06 0000 Nasal 2.0L Cannula 02/05 2225 97.6 94 18 160/68 94 Nasal 2.0L Cannula 02/05 1655 99 Nasal 2.0L Cannula 02/05 1600 94 Nasal 2.0L Cannula 02/05 1442 98.0 69 20 140/80 96 Intake & Output 02/06 1600 02/06 0800 02/06 0000 Intake Total 360 360 Output Total 100 Balance 360 260 Intake, Oral 360 360 Output, Urine 100 Patient 189 lb Weight Physical Exam Other Physical Findings: He appears comfortable in no acute distress Chest tunneled dialysis catheter in the right upper chest with no inflammation at the site Lungs decreased breath sounds with scattered wheezes and prolonged expiration Heart regular rhythm with no murmur Abdomen is soft, nontender with positive bowel sounds; colostomy with stool and mucous fistula felt to be viable Extremities increased left upper extremity edema; positive bruit over the left upper extremity AV fistula, nontender on palpation Results Last 24 Hours of Lab Results: Laboratory Tests 02/06 02/05 0830 2100 Chemistry Sodium (137 - 145 mmol/L) 136 L Potassium (3.5 - 5.1 mmol/L) 4.7 Chloride (98 - 107 mmol/L) 101 Carbon Dioxide (22 - 30 mmol/L) 26 Anion Gap (5 - 16) 9 BUN (9 - 20 mg/dL) 41 H Creatinine (0.7 - 1.2 mg/dL) 5.6 *H Estimated GFR (>60 ml/min) 10 L BUN/Creatinine Ratio (7 - 25 %) 7.3 Glucose (65 - 99 mg/dL) 122 H Calcium (8.4 - 10.2 mg/dL) 8.8 Phosphorus (2.5 - 4.5 mg/dL) 4.3 Magnesium (1.6 - 2.3 mg/dL) 1.7 Albumin (3.5 - 5.0 g/dL) 3.0 L Coagulation PT (9.4 - 12.5 SEC) 28.2 H INR (0.90 - 1.17) 2.71 H APTT Cancelled Hematology CBC w Diff NO MAN DIFF REQ WBC (4.8 - 10.8 /CUMM) 13.2 H RBC (4.70 - 6.10 /CUMM) 3.35 L Hgb (14.0 - 18.0 G/DL) 9.7 L Hct (42 - 52 %) 30.5 L MCV (80.0 - 94.0 FL) 91.0 MCH (27.0 - 31.0 PG) 28.9 RDW (11.5 - 14.5 %) 21.0 H Plt Count (130 - 400 /CUMM) 103 L MPV (7.4 - 10.4 FL) 8.6 Gran % (42.2 - 75.2 %) 83.3 H Lymphocytes % (20.5 - 51.1 %) 5.9 L Monocytes % (1.7 - 9.3 %) 9.5 H Eosinophils % (0 - 5 %) 1.0 Basophils % (0.0 - 2.0 %) 0.3 Absolute Granulocytes (1.4 - 6.5 /CUMM) 11.0 H Absolute Lymphocytes (1.2 - 3.4 /CUMM) 0.8 L Absolute Monocytes (0.10 - 0.60 /CUMM) 1.3 H Absolute Eosinophils (0.0 - 0.7 /CUMM) 0.1 Absolute Basophils (0.0 - 0.2 /CUMM) 0 PUBS MCHC (33.0 - 37.0 G/DL) 31.7 L Last 24 Hours of Satnam Results: No recent cultures Assessment/Plan Impression: Stable status post transverse colectomy 9 days ago for mesenteric ischemia/ gangrenous transverse colon, with temperatures remaining normal off antibiotics, but with white blood cell count now increasing. Possible sources include the AV fistula, given the persistent left upper extremity swelling, the urinary tract, with the left kidney obstruction, or the lungs, given his complaint of increased shortness of breath. Suggestion: 1. Repeat chest x-ray 2. Pulmonary follow-up 3. Continue elevation and Dilan wraps to the left upper extremity 4. Consider left upper extremity ultrasound but would discuss with Vascular surgery first 5. Continue to follow off antibiotics
--- NOTE | 2017-02-06 13:20 | NUR ---
PT ARRIVED TO FLOOR FROM DIALYSIS, AO, 2L NC, REQUESTING VENTOLIN WHICH WAS ADMINISTERED, SOAP MAKER UVALDO REPORTED POST DIALYSIS WEIGHT OF 85.2 KG. [facility] IN[facility]. WILL CONTINUE TO MONTIOR.
[2017-02-06 14:51] VITALS: BP 145/68
--- NOTE | 2017-02-06 15:07 | RADIOLOGY REPORT ---
EXAMINATION: XR PORTABLE CHEST CLINICAL INFORMATION: Pleural effusion versus pneumonia versus COPD exacerbation. Progressive shortness of breath with crackles and wheezing. Dialysis patient. COMPARISON: Multiple prior chest x-rays, most recent of which is dated 01/31/2017 TECHNIQUE: Portable AP view of the chest was obtained. FINDINGS: The patient is status post median sternotomy. Right atrial pacer lead, right coronary sinus pacer lead and right ventricular AICD lead are seen in place, unchanged. A right jugular dialysis catheter is in place with tip in the right atrium, unchanged. The cardiomediastinal silhouette is enlarged, unchanged in the interim. There is increasing central vascular congestion and increasing opacity in the medial right lung base. There is also some opacity in the retrocardiac left lung base. No significant pleural effusion or pneumothorax is seen. Bony structures are grossly unremarkable. IMPRESSION: 1. Increasing consolidation in the medial right lung base, suspicious for pneumonia. 2. Retrocardiac left lung base opacity, likely related to subsegmental atelectasis. 3. Central vascular congestion without overt pulmonary edema. 4. No pneumothorax. 5. Dialysis catheter and pacer/AICD leads in place as discussed above.
--- NOTE | 2017-02-06 15:46 | ULTRASOUND REPORT ---
EXAMINATION: US TRIPLEX UPPER EXTREMITY, RIGHT CLINICAL INFORMATION: Edema and swelling; status-post AV fistula placement. COMPARISON: None. TECHNIQUE: Color-flow triplex imaging with spectral analysis and compression Doppler were performed on the left upper extremity. FINDINGS: The left internal jugular, subclavian, axillary, brachial and basilic vein segments are patent and unremarkable. The left cephalic vein is none identified secondary to extensive edema. IMPRESSION: No left upper extremity deep venous thrombosis seen. Examination of the left cephalic vein is limited secondary to extensive edema.
[2017-02-06 22:37] VITALS: BP 136/70
[2017-02-07 06:55] VITALS: BP 146/78
--- NOTE | 2017-02-07 07:31 | PN- Housestaff ---
See Addendum [address],ISMAIL 02/07/17 0731: Subjective Follow-up For: Ischemic colitis status post surgical internvention Hemodialysis Left arm swelling Subjective: Afebrile, white blood cell improved this morning even though he is on steroid. Patient saturating well on 2 L of oxygen. He reported improvement of his dyspnea however he still complain of mild cough. Patient still had left upper extremity swelling without pain or tenderness. Patient reported a nonbloody bowel movement through the rectum. His colostomy is filled with nonbloody brown semi-formed stool. Patient will go to hemodialysis tomorrow. Review of Systems Constitutional: Reports: no symptoms. Objective Last 24 Hrs of Vital Signs/I&O Vital Signs Date Time Temp Pulse Resp B/P Pulse O2 O2 Flow FiO2 Ox Delivery Rate 02/07 0800 Nasal 2.0L Cannula 02/07 0751 99 Nasal 2.0L Cannula 02/07 0655 98.9 75 20 146/78 91 Room Air 02/07 0052 97 Nasal 2.0L Cannula 02/07 0000 97 Nasal 2.0L Cannula 02/06 2237 99.3 67 20 136/70 97 Nasal Cannula 02/06 1545 97 Nasal 2.0L Cannula 02/06 1451 98.1 63 20 145/68 98 Intake & Output 02/07 1600 02/07 0800 02/07 0000 Intake Total 250 250 Output Total 100 400 Balance 150 -150 Intake, IV 0 Intake, Oral 250 250 Number 1 Bowel Movements Output, Stool 100 400 Patient 84.822 kg Weight Physical Exam General Appearance: Alert, Oriented X3, Cooperative, No Acute Distress Skin: No Rashes HEENT: Atraumatic, PERRLA, EOMI, Mucous Membr. moist/pink Cardiovascular: Regular Rate, No Murmurs Lungs: congested over lung bilaterally with decreased air entry in the right side more than the left side Abdomen: Normal Bowel Sounds, Soft, No Tenderness, right colostomy filled with brown nonbloody stool and empty left colectomy Neurological: Normal Speech Extremities: No Clubbing, No Cyanosis, left upper extremity +2 edema, with some mild bruises. No lower extremity edema Current Medications: Current Medications Sig/Johnna Start time Last Medication Dose Route Stop Time Status Admin Acetaminophen 650 MG Q4P PRN 01/31 1100 AC 02/05 PO 0113 Albuterol Sulfate 2 PUF Q4P PRN 02/06 0800 AC 02/06 INH 1313 Albuterol Sulfate 3 ML EVERY 4 HRS/AWAKE 02/05 1600 AC 02/07 INH 1251 Ampicillin Sodium/ 3,000 MG Q24H 02/06 1800 AC 02/06 Sulbactam Sodium IV 1837 Sodium Chloride 100 ML Calcitriol 0.25 MCG MoWeFr PRN 01/30 0815 AC IV Diclofenac Sodium 1 MAI 4 TIMES/DAY 02/05 1400 AC 02/07 TOP 1415 Epoetin Guzman 4,000 UNIT MoWeFr PRN 01/30 0815 AC IV Insulin Aspart 0 AT BEDTIME 02/01 2200 AC SC Insulin Aspart 0 TIDAC 02/01 1200 AC 02/07 SC 1234 Nystatin 1 MAI TID PRN 02/02 1800 DC 02/02 TOP 1838 Pantoprazole Sodium 40 MG DAILY 01/28 1027 AC 02/07 IV 0820 Patient Medication 1 ED .STK-MED ONE 02/07 1349 OR Teaching ED 02/07 1350 Prednisone 40 MG DAILY 02/06 1616 AC 02/07 PO 0820 Sodium Chloride 2 SPRAY Q4P PRN 01/31 0430 AC 02/05 CHULA 2133 Trazodone HCl 50 MG AT BEDTIME 01/30 2200 AC 02/06 PO 2112 Warfarin Sodium 5 MG COUMADIN 1700 ONE 02/07 1700 AC PO 02/07 1701 Warfarin Sodium 5 MG COUMADIN 1700 ONE 02/06 1830 DC 02/06 PO 02/06 1831 1948 Last 24 Hrs of Lab/Satnam Results Last 24 Hrs of Labs/Mics: Laboratory Tests 02/07/17 0620: Anion Gap 11, Estimated GFR 19 L, BUN/Creatinine Ratio 7.0, PT 22.9 H, INR 2.20 H, CBC w Diff MAN DIFF ORDERED, RBC 3.47 L, MCV 91.3, MCH 28.5, RDW 21.5 H, MPV 9.6, Gran % 93.7 H, Lymphocytes % 4.1 L, Monocytes % 1.9, Eosinophils % 0.1, Basophils % 0.2, Absolute Granulocytes 10.6 H, Segmented Neutrophils 85 H , Band Neutrophils 2, Absolute Lymphocytes 0.5 L, Lymphocytes 8 L, Monocytes 1 L, Absolute Monocytes 0.2, Absolute Eosinophils 0, Absolute Basophils 0, Metamyelocytes 3 H, Myelocytes 1 H, Platelet Estimate DECREASED, Polychromasia 1+, Hypochromic-Microcytic 1+, Poikilocytosis 2+, Anisocytosis 1+, PUBS MCHC 31.2 L Assessment/Plan Assessment: Plan # S/P exploratory laparotomy with transverse colectomy and end colostomy for ischemic bowel Stable and denies any current complain, colostomy is filled with brown nonbloody stool. Patient reported that earlier today he had a rectal bowel movement. Patient denies any current abdominal pain, nausea, or vomiting. * Stable we will follow surgical recommendations # Left upper extremity swelling sp AV fistula Left arm is very swollen this morning, patient has left AV fistula on the left arm that was recently placed. This swelling was evaluated by vascular recently and they recommended arm elevation, however patient left arm swelling did not improve. * We will ask for vascular evaluation * We will ask IR to comment on the AV fistula in the left arm, on the patient be sent left upper extremity ultrasound # ESRD on Dialysis MWF * Nephro on board * Dialysis tomorrow * As per nephrology, Will raise outpatient EDW to 85kg. * Hold anti-hypertensives on morning of dialysis (if on as outpatient) * As per nephrology has outpatient seat at [facility] post discharge # Left renal obstruction Asymptomatic obstructed left kidney due to UPJ stone. Risk of surgery for stone removal/stent without sepsis outweighs benefits for this ESRD-dialysis pt. Urology consulted, Dr. Elise. * NTD for now # Hx of COPD Succesfully extubated on day 0 post surgery. He has Previous history of MRSA and Pseudomonas in the lower respiratory tract. Ambulance Officer Dr. Perry is on board. Yesterday patient had leukocytosis with worsening of his dyspnea, chest x-ray was suggestive of pneumonia, patient was started on IV Unasyn and steroid This morning patient reported significant improvement of his shortness breath, however still complaining of mild cough productive of white sputum * cont TRC/Nebs * mucomyst X 6 doses for thick secretion * We will order a new LRC * Continue IV Unasyn * Continue prednisone 40 mg daily, we will start taper tomorrow #Anemia most likely 2/2 ESRD * H&h low but stable, cont' monitoring #History of Afib INR today is 2.2 * We will dose Coumadin daily # Diabetes mellitus * ISS, finger stick glucose #History of gout Patient reported improvement of heel pain, he still has no symptom or signs suggestive of gout flare. * Voltaren gel for heels Diet: Renal dialysis diet DVT ppx: Warfarin FULL CODE Problem List: 1. Hx laparoscopic cholecystectomy Pain Ratin Pain Location: na Pain Goal: Remain pain free Pain Plan: See assessment and plan Tomorrow's Labs & Rationales: BEP and INR HERMINIA LINDO 02/07/17 1117: Attending MD Review Statement Attending Statement Attending MD Statement: examined this patient, discuss w/resident/PA/DENTAL SURGEON, agreed w/resident/PA/DENTAL SURGEON, discussed with family, reviewed EMR data (avail), discussed with nursing, discussed with case mgmt, reviewed images Attending Assessment/Plan: 72M COPD, recent worsening renal failure now with end-stage renal disease on hemodialysis, paroxysmal atrial fibrillation who is on anticoagulation, chronic heart failure with preserved ejection fraction LVEF of 50%, 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 Plan - Continue Coumadin INR therapeutic - Follow surgery recommendations - Continue home medications - Possible discharge to [facility], arrange HD as o/p, f/u surgery for dc planning. - dyspnea at rest, repeat chest xray suggestive of right sided worsening infiltrates f/u ID. started on unasyn and steroid, f/u pulmonary. continue with oxygen supplementation, encourage incentive spirometry. elevate head end of bed. - left upper extremity edema USG negative for DVT, vascular surgery f/u.
[2017-02-07 08:15] LABS: ABSOLUTE BASOPHIL COUNT 0 /CUMM (0.0-0.2); ABSOLUTE EOSINOPHIL COUNT 0 /CUMM (0.0-0.7); ABSOLUTE GRANULOCYTE CT 10.6 /CUMM (1.4-6.5); ABSOLUTE LYMPH COUNT 0.5 /CUMM (1.2-3.4); ABSOLUTE MONOCYTE COUNT 0.2 /CUMM (0.10-0.60); BASOPHIL % 0.2 % (0.0-2.0); EOSINOPHIL % 0.1 % (0-5); GRANULOCYTE % 93.7 % (42.2-75.2); HEMATOCRIT 31.7 % (42-52); MEAN CORPUSCULAR HGB 28.5 PG (27.0-31.0); MEAN CORPUSCULAR HGB CONC 31.2 G/DL (33.0-37.0); MEAN CORPUSCULAR VOLUME 91.3 FL (80.0-94.0); MEAN PLATELET VOLUME 9.6 FL (7.4-10.4); PLATELET COUNT 106 /CUMM (130-400); RBC DISTRIBUTION WIDTH 21.5 % (11.5-14.5); RED BLOOD CELL CT 3.47 /CUMM (4.70-6.10); WHITE BLOOD CELL COUNT 11.3 /CUMM (4.8-10.8)
[2017-02-07 08:52] LABS: PT 22.9 SEC (9.4-12.5)
--- NOTE | 2017-02-07 11:27 | PN- Infect Dx ---
Subjective Subjective: Afebrile, now on steroids. He notes persistent cough, occasionally productive, with mild shortness of breath, which has improved today. He does not report any left upper extremity pain but notes persistent swelling of the left upper extremity. He also reports having passed a bowel movement through his rectum. Objective Last 24 Hrs of Vital Signs/I&O Vital Signs Date Time Temp Pulse Resp B/P Pulse O2 O2 Flow FiO2 Ox Delivery Rate 02/07 0800 Nasal 2.0L Cannula 02/07 0751 99 Nasal 2.0L Cannula 02/07 0655 98.9 75 20 146/78 91 Room Air 02/07 0052 97 Nasal 2.0L Cannula 02/07 0000 97 Nasal 2.0L Cannula 02/06 2237 99.3 67 20 136/70 97 Nasal Cannula 02/06 1545 97 Nasal 2.0L Cannula 02/06 1451 98.1 63 20 145/68 98 Intake & Output 02/07 1600 02/07 0800 02/07 0000 Intake Total 250 250 Output Total 100 400 Balance 150 -150 Intake, IV 0 Intake, Oral 250 250 Number 1 Bowel Movements Output, Stool 100 400 Patient 187 lb Weight Physical Exam Other Physical Findings: He appears comfortable in no acute distress Lungs occasional rhonchi but mostly clear Heart regular rhythm with no murmur Abdomen is soft, nontender with positive bowel sounds; bloody fluid in the mucous fistula; stool in the colostomy Extremities left upper extremity swelling, with slightly cool left hand; AV fistula incision with minimal drainage noted on the pillow, nontender with no erythema appreciated; trace edema both lower extremities Results Last 24 Hours of Lab Results: Laboratory Tests 02/07 0620 Chemistry Sodium (137 - 145 mmol/L) 133 L Potassium (3.5 - 5.1 mmol/L) 5.2 H Chloride (98 - 107 mmol/L) 101 Carbon Dioxide (22 - 30 mmol/L) 22 Anion Gap (5 - 16) 11 BUN (9 - 20 mg/dL) 23 H Creatinine (0.7 - 1.2 mg/dL) 3.3 H Estimated GFR (>60 ml/min) 19 L BUN/Creatinine Ratio (7 - 25 %) 7.0 Coagulation PT (9.4 - 12.5 SEC) 22.9 H INR (0.90 - 1.17) 2.20 H Hematology CBC w Diff MAN DIFF ORDERED WBC (4.8 - 10.8 /CUMM) 11.3 H RBC (4.70 - 6.10 /CUMM) 3.47 L Hgb (14.0 - 18.0 G/DL) 9.9 L Hct (42 - 52 %) 31.7 L MCV (80.0 - 94.0 FL) 91.3 MCH (27.0 - 31.0 PG) 28.5 RDW (11.5 - 14.5 %) 21.5 H Plt Count (130 - 400 /CUMM) 106 L MPV (7.4 - 10.4 FL) 9.6 Gran % (42.2 - 75.2 %) 93.7 H Lymphocytes % (20.5 - 51.1 %) 4.1 L Monocytes % (1.7 - 9.3 %) 1.9 Eosinophils % (0 - 5 %) 0.1 Basophils % (0.0 - 2.0 %) 0.2 Absolute Granulocytes (1.4 - 6.5 /CUMM) 10.6 H Segmented Neutrophils (42.2 - 75.2 %) 85 H Band Neutrophils (0.0 - 5.0 %) 2 Absolute Lymphocytes (1.2 - 3.4 /CUMM) 0.5 L Lymphocytes (20.5 - 51.1 %) 8 L Monocytes (1.7 - 9.3 %) 1 L Absolute Monocytes (0.10 - 0.60 /CUMM) 0.2 Absolute Eosinophils (0.0 - 0.7 /CUMM) 0 Absolute Basophils (0.0 - 0.2 /CUMM) 0 Metamyelocytes (0.0 - 1.0 %) 3 H Myelocytes (0 - 0 %) 1 H Platelet Estimate (ADEQUATE) DECREASED Polychromasia 1+ Hypochromic-Microcytic 1+ Poikilocytosis 2+ Anisocytosis 1+ PUBS MCHC (33.0 - 37.0 G/DL) 31.2 L Last 24 Hours of Satnam Results: No recent cultures Recent Imaging Studies: Chest x-ray February 06, personally reviewed, reveals an increased opacity at the right lung base with increasing central vascular congestion Doppler of the left upper extremity negative Assessment/Plan Impression: Persistent cough with increased right lower lobe density on chest x-ray, possibly secondary to pneumonia, with white blood cell count yesterday elevated, though he has been afebrile with no change in his respiratory status. He was apparently begun empirically on Unasyn yesterday, along with prednisone, and this can be continued pending further evaluation. His left upper extremity edema persists now 12 days status post creation of the AV fistula, with slightly cool left hand and minimal drainage from the incision of some concern. He is now 10 days status post transverse colectomy for mesenteric ischemia/gangrenous transverse colon, with some stool reported from the rectum. Suggestion: 1. Obtain a sputum culture 2. Vascular surgery follow-up 3. Continue elevation and Dilan wraps to the left upper extremity pending above 4. Continue Unasyn pending above
--- NOTE | 2017-02-07 13:00 | PN- Nephrology ---
Assessment/Plan Assessment: ESRD - No need for dialysis today. Will cont to try and maintain dry weight of 85kg after long conversations with the patient. He needs to not take his BP meds on the mornings of dialysis. If he is gaining a lot of weight between HD sessions, he will need to come in for extra treatments. 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 Obstructing Left renal pelvic stone - Has been evaluated by Urology - no need for intervention. A fib - INR 1.98 on admission. Is therapeutic again. RADHA Swelling - Post-op - Vascular to see. Suggestion: -Dialysis tomorrow -Will raise outpatient EDW to 85kg. -Hold anti-hypertensives on morning of dialysis (if on as outpatient) -Vascular follow-up Please call [phone] with ?'s Subjective Subjective: Dialysis yesterday Swelling in RADHA Abd OK c/o "junk in throat" - chest x-ray with possible PNA - started on unasyn and steroids Objective Vital Signs and I&Os Vital Signs Date Time Temp Pulse Resp B/P Pulse O2 O2 Flow FiO2 Ox Delivery Rate 02/07 0800 Nasal 2.0L Cannula 02/07 0751 99 Nasal 2.0L Cannula 02/07 0655 98.9 75 20 146/78 91 Room Air 02/07 0052 97 Nasal 2.0L Cannula 02/07 0000 97 Nasal 2.0L Cannula 02/06 2237 99.3 67 20 136/70 97 Nasal Cannula 02/06 1545 97 Nasal 2.0L Cannula 02/06 1451 98.1 63 20 145/68 98 Intake & Output 02/07 1600 02/07 0400 02/06 1600 02/06 0400 02/05 1600 02/05 0400 Intake Total 250 250 480 360 967.8 178.9 Output Total 100 200 200 100 715 200 Balance 150 50 280 260 252.8 -21.1 Intake, IV 0 367.8 78.9 Intake, Oral 250 250 480 360 600 100 Number 1 0 Bowel Movements Output, Other 15 Output, Stool 100 200 200 250 150 Output, Urine 0 100 450 50 Patient 187 lb 189 lb 188 lb Weight Physical Exam: Gen - OK appearing HEENT - supple CV - RRR Chest - significant upper airway sounds; no crackles or wheezes Abd - soft, nontender Upper ext - RADHA +pitting edema, RADHA AVF +thrill/+bruit Lower ext - minimal edema Skin - bruise on L forearm Neuro - AOX3 Current Medications: Current Medications Sig/Johnna Start time Last Medication Dose Route Stop Time Status Admin Acetaminophen 650 MG Q4P PRN 01/31 1100 AC 02/05 PO 0113 Albuterol Sulfate 2 PUF Q4P PRN 02/06 0800 AC 02/06 INH 1313 Albuterol Sulfate 3 ML EVERY 4 HRS/AWAKE 02/05 1600 AC 02/07 INH 1251 Ampicillin Sodium/ 3,000 MG Q24H 02/06 1800 AC 02/06 Sulbactam Sodium IV 1837 Sodium Chloride 100 ML Calcitriol 0.25 MCG MoWeFr PRN 01/30 0815 IV Diclofenac Sodium 1 MAI 4 TIMES/DAY 02/05 1400 AC 02/07 TOP 0820 Epoetin Guzman 4,000 UNIT MoWeFr PRN 01/30 0815 AC IV Insulin Aspart 0 AT BEDTIME 02/01 2200 AC SC Insulin Aspart 0 TIDAC 02/01 1200 AC 02/07 SC 1234 Nystatin 1 MAI TID PRN 02/02 1800 DC 02/02 TOP 1838 Pantoprazole Sodium 40 MG DAILY 01/28 1027 AC 02/07 IV 0820 Patient Medication 1 ED .STK-MED ONE 02/06 1404 IL Teaching ED 02/06 1405 Prednisone 40 MG DAILY 02/06 1616 AC 02/07 PO 0820 Sodium Chloride 2 SPRAY Q4P PRN 01/31 0430 AC 02/05 CHULA 2133 Trazodone HCl 50 MG AT BEDTIME 01/30 2200 AC 02/06 PO 2112 Warfarin Sodium 5 MG COUMADIN 1700 ONE 02/06 1830 DC 02/06 PO 02/06 1831 1948 Results Pertinent Lab Results: Laboratory Tests 02/07 02/06 0620 0830 Chemistry Sodium (137 - 145 mmol/L) 133 L 136 L Potassium (3.5 - 5.1 mmol/L) 5.2 H 4.7 Chloride (98 - 107 mmol/L) 101 101 Carbon Dioxide (22 - 30 mmol/L) 22 26 Anion Gap (5 - 16) 11 9 BUN (9 - 20 mg/dL) 23 H 41 H Creatinine (0.7 - 1.2 mg/dL) 3.3 H 5.6 *H Estimated GFR (>60 ml/min) 19 L 10 L BUN/Creatinine Ratio (7 - 25 %) 7.0 7.3 Glucose (65 - 99 mg/dL) 122 H Calcium (8.4 - 10.2 mg/dL) 8.8 Phosphorus (2.5 - 4.5 mg/dL) 4.3 Magnesium (1.6 - 2.3 mg/dL) 1.7 Albumin (3.5 - 5.0 g/dL) 3.0 L Coagulation PT (9.4 - 12.5 SEC) 22.9 H 28.2 H INR (0.90 - 1.17) 2.20 H 2.71 H Hematology CBC w Diff MAN DIFF ORDERED NO MAN DIFF REQ WBC (4.8 - 10.8 /CUMM) 11.3 H 13.2 H RBC (4.70 - 6.10 /CUMM) 3.47 L 3.35 L Hgb (14.0 - 18.0 G/DL) 9.9 L 9.7 L Hct (42 - 52 %) 31.7 L 30.5 L MCV (80.0 - 94.0 FL) 91.3 91.0 MCH (27.0 - 31.0 PG) 28.5 28.9 RDW (11.5 - 14.5 %) 21.5 H 21.0 H Plt Count (130 - 400 /CUMM) 106 L 103 L MPV (7.4 - 10.4 FL) 9.6 8.6 Gran % (42.2 - 75.2 %) 93.7 H 83.3 H Lymphocytes % (20.5 - 51.1 %) 4.1 L 5.9 L Monocytes % (1.7 - 9.3 %) 1.9 9.5 H Eosinophils % (0 - 5 %) 0.1 1.0 Basophils % (0.0 - 2.0 %) 0.2 0.3 Absolute Granulocytes (1.4 - 6.5 /CUMM) 10.6 H 11.0 H Segmented Neutrophils (42.2 - 75.2 %) 85 H Band Neutrophils (0.0 - 5.0 %) 2 Absolute Lymphocytes (1.2 - 3.4 /CUMM) 0.5 L 0.8 L Lymphocytes (20.5 - 51.1 %) 8 L Monocytes (1.7 - 9.3 %) 1 L Absolute Monocytes (0.10 - 0.60 /CUMM) 0.2 1.3 H Absolute Eosinophils (0.0 - 0.7 /CUMM) 0 0.1 Absolute Basophils (0.0 - 0.2 /CUMM) 0 0 Metamyelocytes (0.0 - 1.0 %) 3 H Myelocytes (0 - 0 %) 1 H Platelet Estimate (ADEQUATE) DECREASED Polychromasia 1+ Hypochromic-Microcytic 1+ Poikilocytosis 2+ Anisocytosis 1+ PUBS MCHC (33.0 - 37.0 G/DL) 31.2 L 31.7 L 02/06 02/05 02/05 0600 2100 0900 Coagulation APTT Cancelled Cancelled Hematology CBC w Diff Cancelled WBC Cancelled RBC Cancelled Hgb Cancelled Hct Cancelled MCV Cancelled MCH Cancelled RDW Cancelled Plt Count Cancelled MPV Cancelled PUBS MCHC Cancelled 02/05 02/04 0900 2000 Chemistry Sodium (137 - 145 mmol/L) 134 L Potassium (3.5 - 5.1 mmol/L) 4.1 Chloride (98 - 107 mmol/L) 102 Carbon Dioxide (22 - 30 mmol/L) 25 Anion Gap (5 - 16) 6 BUN (9 - 20 mg/dL) 32 H Creatinine (0.7 - 1.2 mg/dL) 4.7 H Estimated GFR (>60 ml/min) 12 L BUN/Creatinine Ratio (7 - 25 %) 6.8 L Coagulation PT (9.4 - 12.5 SEC) 22.6 H INR (0.90 - 1.17) 2.17 H APTT (25 - 37 SEC) 79 H 79 H Hematology CBC w Diff NO MAN DIFF REQ NO MAN DIFF REQ WBC (4.8 - 10.8 /CUMM) 11.0 H 10.6 RBC (4.70 - 6.10 /CUMM) 3.19 L 3.42 L Hgb (14.0 - 18.0 G/DL) 9.1 L 9.9 L Hct (42 - 52 %) 29.0 L 31.5 L MCV (80.0 - 94.0 FL) 91.1 92.2 MCH (27.0 - 31.0 PG) 28.6 28.9 RDW (11.5 - 14.5 %) 22.0 H 22.4 H Plt Count (130 - 400 /CUMM) 100 L 104 L MPV (7.4 - 10.4 FL) 8.7 8.8 Gran % (42.2 - 75.2 %) 79.3 H 78.1 H Lymphocytes % (20.5 - 51.1 %) 8.1 L 9.3 L Monocytes % (1.7 - 9.3 %) 11.0 H 11.0 H Eosinophils % (0 - 5 %) 1.4 1.3 Basophils % (0.0 - 2.0 %) 0.2 0.3 Absolute Granulocytes (1.4 - 6.5 /CUMM) 8.7 H 8.3 H Absolute Lymphocytes (1.2 - 3.4 /CUMM) 0.9 L 1.0 L Absolute Monocytes (0.10 - 0.60 /CUMM) 1.2 H 1.2 H Absolute Eosinophils (0.0 - 0.7 /CUMM) 0.2 0.1 Absolute Basophils (0.0 - 0.2 /CUMM) 0 0 PUBS MCHC (33.0 - 37.0 G/DL) 31.4 L 31.3 L Imaging/Other Studies: EXAM TYPE: RAD - XRY-PORTABLE CHEST XRAY EXAMINATION: XR PORTABLE CHEST CLINICAL INFORMATION: Pleural effusion versus pneumonia versus COPD exacerbation. Progressive shortness of breath with crackles and wheezing. Dialysis patient. COMPARISON: Multiple prior chest x-rays, most recent of which is dated 01/31/2017 TECHNIQUE: Portable AP view of the chest was obtained. FINDINGS: The patient is status post median sternotomy. Right atrial pacer lead, right coronary sinus pacer lead and right ventricular AICD lead are seen in place, unchanged. A right jugular dialysis catheter is in place with tip in the right atrium, unchanged. The cardiomediastinal silhouette is enlarged, unchanged in the interim. There is increasing central vascular congestion and increasing opacity in the medial right lung base. There is also some opacity in the retrocardiac left lung base. No significant pleural effusion or pneumothorax is seen. Bony structures are grossly unremarkable. IMPRESSION: 1. Increasing consolidation in the medial right lung base, suspicious for pneumonia. 2. Retrocardiac left lung base opacity, likely related to subsegmental atelectasis. 3. Central vascular congestion without overt pulmonary edema. 4. No pneumothorax. 5. Dialysis catheter and pacer/AICD leads in place as discussed above.
[2017-02-07 14:34] VITALS: BP 122/68
[2017-02-07 22:59] VITALS: BP 124/62
[2017-02-08 06:30] VITALS: BP 130/58
[2017-02-08 09:45] LABS: ABSOLUTE BASOPHIL COUNT 0 /CUMM (0.0-0.2); ABSOLUTE EOSINOPHIL COUNT 0.1 /CUMM (0.0-0.7); ABSOLUTE GRANULOCYTE CT 8.8 /CUMM (1.4-6.5); ABSOLUTE LYMPH COUNT 0.5 /CUMM (1.2-3.4); ABSOLUTE MONOCYTE COUNT 0.6 /CUMM (0.10-0.60); BASOPHIL % 0 % (0.0-2.0); EOSINOPHIL % 0.7 % (0-5); GRANULOCYTE % 88.6 % (42.2-75.2); HEMATOCRIT 29.6 % (42-52); MEAN CORPUSCULAR HGB 28.7 PG (27.0-31.0); MEAN CORPUSCULAR VOLUME 89.9 FL (80.0-94.0); MEAN PLATELET VOLUME 9.4 FL (7.4-10.4); PLATELET COUNT 119 /CUMM (130-400); RBC DISTRIBUTION WIDTH 20.8 % (11.5-14.5)
--- NOTE | 2017-02-08 09:51 | ULTRASOUND REPORT ---
EXAMINATION: COLOR-FLOW DUPLEX IMAGING OF THE LEFT UPPER EXTREMITY ARTERIAL SYSTEM. CLINICAL INFORMATION: 72-year-old male with left upper extremity edema. Evaluation for fistula patency requested. COMPARISON: No similar recent prior examinations are available for comparison. TECHNIQUE: Grayscale, color and spectral Doppler imaging was obtained of the deep arteries of the left upper extremity. FINDINGS: Left subclavian, axillary and brachial arteries are widely patent with velocities ranging from 200 to 300 cm/s. The arterial anastomosis of the AV fistula is widely patent. Velocities within a patent fistula range between 500 to 600 cm/s. The outflow basilic vein demonstrates arterial waveforms and is widely patent with velocities ranging from 118 to 178 cm/s. Slightly superior to the incision is a 3.3 x 2.0 x 2.6 cm hypoechoic focus which demonstrates no color Doppler flow. IMPRESSION: 1. Widely patent AV fistula. 2. 3.3 cm hypoechoic focus superior to the incision site is suggestive of a hematoma or seroma. Clinical correlation recommended.
[2017-02-08 09:52] LABS: PT 28.7 SEC (9.4-12.5)
--- NOTE | 2017-02-08 09:59 | PN- Housestaff ---
See Addendum Subjective Follow-up For: Ischemic colitis status post surgical internvention Hemodialysis Left arm swelling Subjective: Afebrile, white blood cell improved this morning even though he is on steroid. Patient saturating well on 2 L of oxygen. He reported improvement of his dyspnea however he still complain of mild dry cough. Patient had +2 lower extremity edema. Patient still had left upper extremity swelling without pain or tenderness. Patient had dialysis today and will be scheduled for dialysis tomorrow as per nephrology recommendation. He denies abdominal pain, fever, chills, nausea, vomiting, chest pain, or shortness breath. Review of Systems Constitutional: Reports: see HPI. Objective Last 24 Hrs of Vital Signs/I&O Vital Signs Date Time Temp Pulse Resp B/P Pulse O2 O2 Flow FiO2 Ox Delivery Rate 02/08 1342 94 Room Air 02/08 08 98 Nasal 2.0L Cannula 02/08 0630 98.1 69 20 130/58 96 Nasal Cannula 02/08 0107 94 Room Air 02/08 0000 Nasal 2.0L Cannula 02/07 2259 98.3 77 20 124/62 94 Room Air 02/07 1939 Nasal 2.0L Cannula Intake & Output 02/08 1600 02/08 0800 02/08 0000 Intake Total 240 240 Output Total 100 150 Balance 140 90 Intake, Oral 240 240 Number 0 Bowel Movements Output, Stool 150 Output, Urine 100 Patient 85.417 kg Weight Physical Exam General Appearance: Alert, Oriented X3, Cooperative, No Acute Distress Skin: No Rashes HEENT: Atraumatic, PERRLA, EOMI, Mucous Membr. moist/pink Cardiovascular: Normal S1, Normal S2, No Murmurs Lungs: decrease air entry over both lungs, with wheezing over the left side Abdomen: Soft, No Tenderness, cholecytomy filled with brown, nonbloody stool Neurological: Normal Speech Current Medications: Current Medications Sig/Johnna Start time Last Medication Dose Route Stop Time Status Admin Acetaminophen 650 MG Q4P PRN 01/31 1100 AC 02/05 PO 0113 Albuterol Sulfate 2 PUF Q4P PRN 02/06 0800 AC 02/06 INH 1313 Albuterol Sulfate 3 ML EVERY 4 HRS/AWAKE 02/05 1600 AC 02/08 INH 1323 Ampicillin Sodium/ 3,000 MG Q24H 02/06 1800 AC 02/07 Sulbactam Sodium IV 1759 Sodium Chloride 100 ML Calcitriol 0.25 MCG MoWeFr PRN 01/30 0815 AC IV Diclofenac Sodium 1 MAI 4 TIMES/DAY 02/05 1400 AC 02/08 TOP 1408 Epoetin Guzman 4,000 UNIT MoWeFr PRN 01/30 0815 AC IV Furosemide 80 MG DAILY 02/08 1138 AC 02/08 PO 1408 Insulin Aspart 0 AT BEDTIME 02/01 2200 AC 02/07 SC 2132 Insulin Aspart 0 TIDAC 02/01 1200 AC 02/08 SC 1406 Pantoprazole Sodium 40 MG DAILY 01/28 1027 AC 02/08 IV 1407 Patient Medication 1 ED .STK-MED ONE 02/08 1335 MI Teaching ED 02/08 133 Prednisone 40 MG DAILY 02/06 1616 02/08 PO 1408 Sodium Chloride 2 SPRAY Q4P PRN 01/31 0430 02/05 CHULA 2133 Trazodone HCl 50 MG AT BEDTIME 01/30 2200 AC 02/07 PO 2114 Warfarin Sodium 5 MG COUMADIN 1700 ONE 02/08 1700 AC PO 02/08 1701 Warfarin Sodium 5 MG COUMADIN 1700 ONE 02/07 1700 DC 02/07 PO 02/07 1701 1759 Last 24 Hrs of Lab/Satnam Results Last 24 Hrs of Labs/Mics: Laboratory Tests 02/08/17 1235: Estimated GFR > 60, BUN/Creatinine Ratio 02/08/17 0900: Anion Gap 10, Estimated GFR 12 L, BUN/Creatinine Ratio 8.7, Calcium 9.2, Phosphorus 5.1 H, Magnesium 2.2, PT 28.7 H, INR 2.76 H, CBC w Diff MAN DIFF ORDERED, RBC 3.30 L, MCV 89.9, MCH 28.7, RDW 20.8 H, MPV 9.4, Gran % 88.6 H, Lymphocytes % 5.0 L, Monocytes % 5.7, Eosinophils % 0.7, Basophils % 0 L, Absolute Granulocytes 8.8 H, Segmented Neutrophils 81 H, Band Neutrophils 4, Absolute Lymphocytes 0.5 L, Lymphocytes 5 L, Monocytes 5, Absolute Monocytes 0.6, Absolute Eosinophils 0.1, Absolute Basophils 0, Metamyelocytes 3 H, Myelocytes 2 H, Platelet Estimate DECREASED, Polychromasia 1+, Hypochromic- Microcytic 2+, Poikilocytosis 1+, Anisocytosis 1+, PUBS MCHC 32.0 L Assessment/Plan Assessment: Plan # S/P exploratory laparotomy with transverse colectomy and end colostomy for ischemic bowel Stable and denies any current complain, colostomy is filled with brown nonbloody stool. Patient denies any current abdominal pain, nausea, or vomiting. * Bre can come out monday as per surgery * Stable we will follow surgical recommendations # Left upper extremity swelling sp AV fistula Left arm is very swollen this morning, patient has left AV fistula on the left arm that was recently placed. This swelling was evaluated by vascular recently and they recommended arm elevation, however patient left arm swelling did not improve. Venous Doppler excluded DVTs. Arterial Doppler: 3.3 cm hypoechoic focus superior to the incision site is suggestive of a hematoma or seroma. Clinical correlation recommended. I spoke to vascular surgery service today to comment on the arterial Doppler results, and to provide us with further recommendation. * We will follow vascular recommendation * Continue arm elevation. # ESRD on Dialysis MWF * Nephro on board * Dialysis today and tomorrow * Hold anti-hypertensives on morning of dialysis (if on as outpatient) * We will start patient on Lasix 80 mg daily as per nephrology * As per nephrology has outpatient seat at [facility] post discharge # Hx of COPD Succesfully extubated on day 0 post surgery. He has Previous history of MRSA and Pseudomonas in the lower respiratory tract. Vacuum Drier Operator Dr. Perry is on board. Yesterday patient had leukocytosis with worsening of his dyspnea, chest x-ray was suggestive of pneumonia, patient was started on IV Unasyn and steroid This morning patient reported significant improvement of his shortness breath, however still complaining of mild cough productive of white sputum * cont TRC/Nebs * We will follow up sputum culture * Continue IV Unasyn as per ID * Continue prednisone 40mg x 5 days without a taper as per pulmonology. # Left renal obstruction Asymptomatic obstructed left kidney due to UPJ stone. Risk of surgery for stone removal/stent without sepsis outweighs benefits for this ESRD-dialysis pt. Urology consulted, Dr. Elise. * NTD for now #Anemia most likely 2/2 ESRD * H&h low but stable, cont' monitoring #History of Afib INR today is 2.76 * We will continue Coumadin 5 mg daily * We will dose Coumadin daily # Diabetes mellitus * ISS, finger stick glucose #History of gout Patient reported improvement of heel pain, he still has no symptom or signs suggestive of gout flare. * Voltaren gel for heels Diet: Renal dialysis diet DVT ppx: Warfarin FULL CODE Problem List: 1. Mesenteric ischemia 2. CKD (chronic kidney disease) Pain Ratin Pain Location: heels Pain Goal: Remain pain free Pain Plan: see A&P Tomorrow's Labs & Rationales: CBC, BEP, and INR
--- NOTE | 2017-02-08 10:43 | PN- Pulmonary ---
See Addendum Subjective HPI/Critical Care Issues: pt seen and examined in HD getting 2L off today worsened swelling in LE and left UE feeling better overall, however dyspneic more than usual, dry cough Objective Current Medications: Current Medications Sig/Johnna Start time Last Medication Dose Route Stop Time Status Admin Acetaminophen 650 MG Q4P PRN 01/31 1100 AC 02/05 PO 0113 Albuterol Sulfate 2 PUF Q4P PRN 02/06 0800 AC 02/06 INH 1313 Albuterol Sulfate 3 ML EVERY 4 HRS/AWAKE 02/05 1600 AC 02/08 INH 0821 Ampicillin Sodium/ 3,000 MG Q24H 02/06 1800 AC 02/07 Sulbactam Sodium IV 1759 Sodium Chloride 100 ML Calcitriol 0.25 MCG MoWeFr PRN 01/30 0815 AC IV Diclofenac Sodium 1 MAI 4 TIMES/DAY 02/05 1400 AC 02/07 TOP 2114 Epoetin Guzman 4,000 UNIT MoWeFr PRN 01/30 0815 AC IV Insulin Aspart 0 AT BEDTIME 02/01 2200 AC 02/07 SC 2132 Insulin Aspart 0 TIDAC 02/01 1200 AC 02/08 SC 0818 Pantoprazole Sodium 40 MG DAILY 01/28 1027 AC 02/07 IV 0820 Patient Medication 1 ED .STK-MED ONE 02/07 1349 DC Teaching ED 02/07 1350 Prednisone 40 MG DAILY 02/06 1616 AC 02/07 PO 0820 Sodium Chloride 2 SPRAY Q4P PRN 01/31 0430 AC 02/05 CHULA 2133 Trazodone HCl 50 MG AT BEDTIME 01/30 2200 AC 02/07 PO 2114 Warfarin Sodium 5 MG COUMADIN 1700 ONE 02/07 1700 DC 04 PO 02/07 1701 1759 Vital Signs & I&O Last 24 Hrs of Vitals and I&O: Vital Signs Date Time Temp Pulse Resp B/P Pulse O2 O2 Flow FiO2 Ox Delivery Rate 02/08 0800 98 Nasal 2.0L Cannula 02/08 0630 98.1 69 20 130/58 96 Nasal Cannula 02/08 0107 94 Room Air 02/08 0000 Nasal 2.0L Cannula 02/07 2259 98.3 77 20 124/62 94 Room Air 02/07 1939 Nasal 2.0L Cannula 02/07 1434 97.9 89 20 122/68 98 Intake & Output 02/08 1600 02/08 0800 02/08 0000 Intake Total 240 240 Output Total 100 150 Balance 140 90 Intake, Oral 240 240 Number 0 Bowel Movements Output, Stool 150 Output, Urine 100 Patient 188 lb Weight Exam Other Physical Findings: gen awake and alert heent ncat cvs s1, s2 lungs rare bibasilar rhonchi abd soft, colostomy ext no edema Results Last 24 Hrs of Lab Results: Laboratory Tests 02/08/17 0900: Anion Gap 10, Estimated GFR 12 L, BUN/Creatinine Ratio 8.7, Calcium Pending, Phosphorus Pending, Magnesium Pending, PT 28.7 H, INR 2.76 H, CBC w Diff MAN DIFF ORDERED, RBC 3.30 L, MCV 89.9, MCH 28.7, RDW 20.8 H, MPV 9.4, Gran % 88.6 H, Lymphocytes % 5.0 L, Monocytes % 5.7, Eosinophils % 0.7, Basophils % 0 L, Absolute Granulocytes 8.8 H, Segmented Neutrophils 81 H, Band Neutrophils 4, Absolute Lymphocytes 0.5 L, Lymphocytes 5 L, Monocytes 5, Absolute Monocytes 0.6, Absolute Eosinophils 0.1, Absolute Basophils 0, Metamyelocytes 3 H, Myelocytes 2 H, Platelet Estimate DECREASED, Polychromasia 1+, Hypochromic- Microcytic 2+, Poikilocytosis 1+, Anisocytosis 1+, PUBS MCHC 32.0 L Impression/Plan Impression/Plan Impression/Plan: Impression 72 year old man * s/p exp lap & transverse colectomy/colostomy for bowel ischemia * esrd on hd * COPD with a chronic cough * chronic anemia secondary to ESRD and previous GI bleed * a.fib hx * DM * medial right lung base consolidation? retrocardiac left lung opacity ? atelectasis Plan - okay with steroids - prednisone 40mg x 5 days without a taper at this time - f/u surgery, nephrology, f/u ID - on unasyn, sputum cx - plan for fluid removal during HD, which can explain the presentation - anticoagulation for a.fib - off abx - trc/nebs DVT prophylaxis at all times
--- NOTE | 2017-02-08 11:00 | PN- General Surgery ---
Surgical Brief Attending Note Brief Attending Note: stable from surgical perspective. chung can come out monday. end stoma pink and viable. tolerating Po. mucus fistula LUQ dark. observe.
--- NOTE | 2017-02-08 13:04 | NUR ---
PT BACK TO FLOOR FROM DIALYSIS AT 1302. VITAL SIGNS STABLE. WILL MONITOR
--- NOTE | 2017-02-08 13:13 | PN- Nephrology ---
See Addendum Assessment/Plan Assessment: ESRD - Dialysis today. More volume expanded. Will plan for an extra session tomorrow. Given his concern for fluid removal at dialysis (I am not entirely convinced that his colitis was only 2/2 fluid drops with dialysis), I brought up with him today that this is likely to be a problem going forward and we would have to work together to keep him at a good target weight. 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 We are trying to avoid hypotension with dialysis. Obstructing Left renal pelvic stone - Has been evaluated by Urology - no need for intervention. A fib - INR 1.98 on admission. Is therapeutic again. RADHA Swelling - Post-op - Ultrasound without gross stenosis. Suggestion: -Dialysis today -Repeat dialysis session tomorrow for ultrafiltration -Will raise outpatient EDW to 85kg. -Hold anti-hypertensives on morning of dialysis (if on as outpatient) -Vascular follow-up Please call [phone] with ?'s Subjective Subjective: Pt seen and examined at dialysis Still coughing Objective Vital Signs and I&Os Vital Signs Date Time Temp Pulse Resp B/P Pulse O2 O2 Flow FiO2 Ox Delivery Rate 02/08 0800 98 Nasal 2.0L Cannula 02/08 0630 98.1 69 20 130/58 96 Nasal Cannula 02/08 0107 94 Room Air 02/08 0000 Nasal 2.0L Cannula 02/07 2259 98.3 77 20 124/62 94 Room Air 02/07 1939 Nasal 2.0L Cannula 02/07 1434 97.9 89 20 122/68 98 Intake & Output 02/08 1600 02/08 0400 02/07 1600 02/07 0400 02/06 1600 02/06 0400 Intake Total 240 240 610 250 480 360 Output Total 100 150 350 200 200 100 Balance 140 90 260 50 280 260 Intake, IV 0 Intake, Oral 240 240 610 250 480 360 Number 0 1 0 Bowel Movements Output, Stool 150 350 200 200 Output, Urine 100 0 0 100 Patient 188 lb 187 lb 189 lb Weight Physical Exam: Gen - OK appearing HEENT - supple CV - RRR Chest - significant upper airway sounds; no crackles or wheezes Abd - soft, nontender Upper ext - RADHA +pitting edema, RADHA AVF +thrill/+bruit Lower ext - 1+ edema Skin - bruise on L forearm Neuro - AOX3 Current Medications: Current Medications Sig/Johnna Start time Last Medication Dose Route Stop Time Status Admin Acetaminophen 650 MG Q4P PRN 01/31 1100 AC 02/05 PO 0113 Albuterol Sulfate 2 PUF Q4P PRN 02/06 0800 AC 02/06 INH 1313 Albuterol Sulfate 3 ML EVERY 4 HRS/AWAKE 02/05 1600 AC 02/08 INH 0821 Ampicillin Sodium/ 3,000 MG Q24H 02/06 1800 AC 02/07 Sulbactam Sodium IV 1759 Sodium Chloride 100 ML Calcitriol 0.25 MCG MoWeFr PRN 01/30 0815 AC IV Diclofenac Sodium 1 MAI 4 TIMES/DAY 02/05 1400 AC 02/07 TOP 2114 Epoetin Guzman 4,000 UNIT MoWeFr PRN 01/30 0815 AC IV Furosemide 80 MG DAILY 02/08 1138 AC PO Insulin Aspart 0 AT BEDTIME 02/01 2200 AC 02/07 SC 2132 Insulin Aspart 0 TIDAC 02/01 1200 AC 02/08 SC 0818 Pantoprazole Sodium 40 MG DAILY 01/28 1027 AC 02/07 IV 0820 Patient Medication 1 ED .STK-MED ONE 02/07 1349 DC Teaching ED 02/07 1350 Prednisone 40 MG DAILY 02/06 1616 AC 02/07 PO 0820 Sodium Chloride 2 SPRAY Q4P PRN 01/31 0430 AC 02/05 CHULA 2133 Trazodone HCl 50 MG AT BEDTIME 01/30 2200 AC 02/07 PO 2114 Warfarin Sodium 5 MG COUMADIN 1700 ONE 02/08 1700 AC PO 02/08 1701 Warfarin Sodium 5 MG COUMADIN 1700 ONE 02/07 1700 DC 02/07 PO 02/07 1701 1759 Results Pertinent Lab Results: Laboratory Tests 02/08 02/08 1235 0900 Chemistry Sodium (137 - 145 mmol/L) 135 L Potassium (3.5 - 5.1 mmol/L) 4.7 Chloride (98 - 107 mmol/L) 98 Carbon Dioxide (22 - 30 mmol/L) 27 Anion Gap (5 - 16) 10 BUN (9 - 20 mg/dL) Pending 41 H Creatinine (0.7 - 1.2 mg/dL) Pending 4.7 H Estimated GFR (>60 ml/min) 12 L BUN/Creatinine Ratio (7 - 25 %) Pending 8.7 Calcium (8.4 - 10.2 mg/dL) 9.2 Phosphorus (2.5 - 4.5 mg/dL) 5.1 H Magnesium (1.6 - 2.3 mg/dL) 2.2 Coagulation PT (9.4 - 12.5 SEC) 28.7 H INR (0.90 - 1.17) 2.76 H Hematology CBC w Diff MAN DIFF ORDERED WBC (4.8 - 10.8 /CUMM) 10.0 RBC (4.70 - 6.10 /CUMM) 3.30 L Hgb (14.0 - 18.0 G/DL) 9.5 L Hct (42 - 52 %) 29.6 L MCV (80.0 - 94.0 FL) 89.9 MCH (27.0 - 31.0 PG) 28.7 RDW (11.5 - 14.5 %) 20.8 H Plt Count (130 - 400 /CUMM) 119 L MPV (7.4 - 10.4 FL) 9.4 Gran % (42.2 - 75.2 %) 88.6 H Lymphocytes % (20.5 - 51.1 %) 5.0 L Monocytes % (1.7 - 9.3 %) 5.7 Eosinophils % (0 - 5 %) 0.7 Basophils % (0.0 - 2.0 %) 0 L Absolute Granulocytes (1.4 - 6.5 /CUMM) 8.8 H Segmented Neutrophils (42.2 - 75.2 %) 81 H Band Neutrophils (0.0 - 5.0 %) 4 Absolute Lymphocytes (1.2 - 3.4 /CUMM) 0.5 L Lymphocytes (20.5 - 51.1 %) 5 L Monocytes (1.7 - 9.3 %) 5 Absolute Monocytes (0.10 - 0.60 /CUMM) 0.6 Absolute Eosinophils (0.0 - 0.7 /CUMM) 0.1 Absolute Basophils (0.0 - 0.2 /CUMM) 0 Metamyelocytes (0.0 - 1.0 %) 3 H Myelocytes (0 - 0 %) 2 H Platelet Estimate (ADEQUATE) DECREASED Polychromasia 1+ Hypochromic-Microcytic 2+ Poikilocytosis 1+ Anisocytosis 1+ PUBS MCHC (33.0 - 37.0 G/DL) 32.0 L /04 04/03 0620 0830 Chemistry Sodium (137 - 145 mmol/L) 133 L 136 L Potassium (3.5 - 5.1 mmol/L) 5.2 H 4.7 Chloride (98 - 107 mmol/L) 101 101 Carbon Dioxide (22 - 30 mmol/L) 22 26 Anion Gap (5 - 16) 11 9 BUN (9 - 20 mg/dL) 23 H 41 H Creatinine (0.7 - 1.2 mg/dL) 3.3 H 5.6 *H Estimated GFR (>60 ml/min) 19 L 10 L BUN/Creatinine Ratio (7 - 25 %) 7.0 7.3 Glucose (65 - 99 mg/dL) 122 H Calcium (8.4 - 10.2 mg/dL) 8.8 Phosphorus (2.5 - 4.5 mg/dL) 4.3 Magnesium (1.6 - 2.3 mg/dL) 1.7 Albumin (3.5 - 5.0 g/dL) 3.0 L Coagulation PT (9.4 - 12.5 SEC) 22.9 H 28.2 H INR (0.90 - 1.17) 2.20 H 2.71 H Hematology CBC w Diff MAN DIFF ORDERED NO MAN DIFF REQ WBC (4.8 - 10.8 /CUMM) 11.3 H 13.2 H RBC (4.70 - 6.10 /CUMM) 3.47 L 3.35 L Hgb (14.0 - 18.0 G/DL) 9.9 L 9.7 L Hct (42 - 52 %) 31.7 L 30.5 L MCV (80.0 - 94.0 FL) 91.3 91.0 MCH (27.0 - 31.0 PG) 28.5 28.9 RDW (11.5 - 14.5 %) 21.5 H 21.0 H Plt Count (130 - 400 /CUMM) 106 L 103 L MPV (7.4 - 10.4 FL) 9.6 8.6 Gran % (42.2 - 75.2 %) 93.7 H 83.3 H Lymphocytes % (20.5 - 51.1 %) 4.1 L 5.9 L Monocytes % (1.7 - 9.3 %) 1.9 9.5 H Eosinophils % (0 - 5 %) 0.1 1.0 Basophils % (0.0 - 2.0 %) 0.2 0.3 Absolute Granulocytes (1.4 - 6.5 /CUMM) 10.6 H 11.0 H Segmented Neutrophils (42.2 - 75.2 %) 85 H Band Neutrophils (0.0 - 5.0 %) 2 Absolute Lymphocytes (1.2 - 3.4 /CUMM) 0.5 L 0.8 L Lymphocytes (20.5 - 51.1 %) 8 L Monocytes (1.7 - 9.3 %) 1 L Absolute Monocytes (0.10 - 0.60 /CUMM) 0.2 1.3 H Absolute Eosinophils (0.0 - 0.7 /CUMM) 0 0.1 Absolute Basophils (0.0 - 0.2 /CUMM) 0 0 Metamyelocytes (0.0 - 1.0 %) 3 H Myelocytes (0 - 0 %) 1 H Platelet Estimate (ADEQUATE) DECREASED Polychromasia 1+ Hypochromic-Microcytic 1+ Poikilocytosis 2+ Anisocytosis 1+ PUBS MCHC (33.0 - 37.0 G/DL) 31.2 L 31.7 L 04/ 04/02 0600 2100 Coagulation APTT Cancelled Hematology CBC w Diff Cancelled WBC Cancelled RBC Cancelled Hgb Cancelled Hct Cancelled MCV Cancelled MCH Cancelled RDW Cancelled Plt Count Cancelled MPV Cancelled PUBS MCHC Cancelled Imaging/Other Studies: EXAM TYPE: US - US-DUPLEX SCAN UPPER EXT ARTER EXAMINATION: COLOR-FLOW DUPLEX IMAGING OF THE LEFT UPPER EXTREMITY ARTERIAL SYSTEM. CLINICAL INFORMATION: 72-year-old male with left upper extremity edema. Evaluation for fistula patency requested. COMPARISON: No similar recent prior examinations are available for comparison. TECHNIQUE: Grayscale, color and spectral Doppler imaging was obtained of the deep arteries of the left upper extremity. FINDINGS: Left subclavian, axillary and brachial arteries are widely patent with velocities ranging from 200 to 300 cm/s. The arterial anastomosis of the AV fistula is widely patent. Velocities within a patent fistula range between 500 to 600 cm/s. The outflow basilic vein demonstrates arterial waveforms and is widely patent with velocities ranging from 118 to 178 cm/s. Slightly superior to the incision is a 3.3 x 2.0 x 2.6 cm hypoechoic focus which demonstrates no color Doppler flow. IMPRESSION: 1. Widely patent AV fistula. 2. 3.3 cm hypoechoic focus superior to the incision site is suggestive of a hematoma or seroma. Clinical correlation recommended.
--- NOTE | 2017-02-08 14:22 | PN- Infect Dx ---
Subjective Subjective: Afebrile. He continues to complain of dyspnea and cough. Objective Last 24 Hrs of Vital Signs/I&O Vital Signs Date Time Temp Pulse Resp B/P Pulse O2 O2 Flow FiO2 Ox Delivery Rate 02/08 1342 94 Room Air 02/08 0800 98 Nasal 2.0L Cannula 02/08 0630 98.1 69 20 130/58 96 Nasal Cannula 02/08 0107 94 Room Air 02/08 0000 Nasal 2.0L Cannula 02/07 2259 98.3 77 20 124/62 94 Room Air 02/07 1939 Nasal 2.0L Cannula 02/07 1434 97.9 89 20 122/68 98 Intake & Output 02/08 1600 02/08 0800 02/08 0000 Intake Total 240 240 Output Total 100 150 Balance 140 90 Intake, Oral 240 240 Number 0 Bowel Movements Output, Stool 150 Output, Urine 100 Patient 188 lb Weight Physical Exam Other Physical Findings: He appears comfortable in no acute distress Neck right IJ tunneled dialysis catheter with no inflammation at the site Lungs diffuse rhonchi bilaterally Heart regular rhythm with no murmur Extremities trace edema both lower extremities; left upper extremity swelling persists, with slightly cool left hand; incision over the AV fistula clean, with no erythema or tenderness Results Last 24 Hours of Lab Results: Laboratory Tests 02/08 02/08 1235 0900 Chemistry Sodium (137 - 145 mmol/L) 135 L Potassium (3.5 - 5.1 mmol/L) 4.7 Chloride (98 - 107 mmol/L) 98 Carbon Dioxide (22 - 30 mmol/L) 27 Anion Gap (5 - 16) 10 BUN (9 - 20 mg/dL) < 2 L 41 H Creatinine (0.7 - 1.2 mg/dL) 0.3 L 4.7 H Estimated GFR (>60 ml/min) > 60 12 L BUN/Creatinine Ratio (7 - 25 %) 8.7 Calcium (8.4 - 10.2 mg/dL) 9.2 Phosphorus (2.5 - 4.5 mg/dL) 5.1 H Magnesium (1.6 - 2.3 mg/dL) 2.2 Coagulation PT (9.4 - 12.5 SEC) 28.7 H INR (0.90 - 1.17) 2.76 H Hematology CBC w Diff MAN DIFF ORDERED WBC (4.8 - 10.8 /CUMM) 10.0 RBC (4.70 - 6.10 /CUMM) 3.30 L Hgb (14.0 - 18.0 G/DL) 9.5 L Hct (42 - 52 %) 29.6 L MCV (80.0 - 94.0 FL) 89.9 MCH (27.0 - 31.0 PG) 28.7 RDW (11.5 - 14.5 %) 20.8 H Plt Count (130 - 400 /CUMM) 119 L MPV (7.4 - 10.4 FL) 9.4 Gran % (42.2 - 75.2 %) 88.6 H Lymphocytes % (20.5 - 51.1 %) 5.0 L Monocytes % (1.7 - 9.3 %) 5.7 Eosinophils % (0 - 5 %) 0.7 Basophils % (0.0 - 2.0 %) 0 L Absolute Granulocytes (1.4 - 6.5 /CUMM) 8.8 H Segmented Neutrophils (42.2 - 75.2 %) 81 H Band Neutrophils (0.0 - 5.0 %) 4 Absolute Lymphocytes (1.2 - 3.4 /CUMM) 0.5 L Lymphocytes (20.5 - 51.1 %) 5 L Monocytes (1.7 - 9.3 %) 5 Absolute Monocytes (0.10 - 0.60 /CUMM) 0.6 Absolute Eosinophils (0.0 - 0.7 /CUMM) 0.1 Absolute Basophils (0.0 - 0.2 /CUMM) 0 Metamyelocytes (0.0 - 1.0 %) 3 H Myelocytes (0 - 0 %) 2 H Platelet Estimate (ADEQUATE) DECREASED Polychromasia 1+ Hypochromic-Microcytic 2+ Poikilocytosis 1+ Anisocytosis 1+ PUBS MCHC (33.0 - 37.0 G/DL) 32.0 L Last 24 Hours of Satnam Results: No recent cultures Recent Imaging Studies: Arterial Doppler left upper extremity February 07 reveals widely patent AV fistula; a 3.3 x 2 x 2.6 cm hypoechoic focus superior to the incision Assessment/Plan Impression: Stable with temperatures normal (on steroids) and white blood cell count decreased on Unasyn now Day 2 of treatment for possible pneumonia, with no improvement in his respiratory symptoms so far. His left upper extremity inflammation persists now 13 days status post creation of the AV fistula, with a small collection seen on ultrasound, possibly representing a seroma or hematoma, but cannot rule out secondary infection. He is now 11 days status post transverse colectomy for mesenteric ischemia/gangrenous transverse colon, with surgical comments regarding his mucous fistula noted. Suggestion: 1. Would attempt to obtain a sputum culture 2. Await vascular surgery follow-up regarding his AV fistula and need for possible aspiration of the collection seen on ultrasound 3. Continue elevation and Dilan wraps to the left upper extremity pending above 4. Continue Unasyn
[2017-02-08 14:56] VITALS: BP 132/68
--- NOTE | 2017-02-08 18:56 | NUR ---
1730- IV ACCESS LOST THIS AFTERNOON. ATTEMPTS MADE BY DIRECTOR OF PHYSIOTHERAPY SERVICES WITH ULTRASOUND GUIDANCE WITH NO SUCCESS. UNABLE TO OBTAIN IV ACCESS AT THIS TIME. DR. JAILYN BLANTON NOTIFIED OF ABOVE. DR. BLANTON CONSULTED WITH DR MEZA AND PO AUGMENTIN TO BE ORDERED. PLAN IS TO DISCHARGE PT TOMORROW.
--- NOTE | 2017-02-08 19:29 | NUR ---
1830- L UPPER ARM CIRCUMFERENCE: 34 CM L LOWER ARM CIRCUMFERENCE: 31.5 CM
[2017-02-08 22:28] VITALS: BP 152/60
--- NOTE | 2017-02-09 01:19 | NUR ---
PT EMPTIED COLOSTOMY BAG INDEPENDENTLY BEFORE BED.
--- NOTE | 2017-02-09 07:33 | PN- Housestaff ---
[address],[facility] 02/09/17 0733: Subjective Follow-up For: Ischemic colitis status post surgical internvention Hemodialysis Left arm swelling Subjective: Afebrile, hemodynamically stable, saturating well on room air, WBCs within normal limits. No acute overnight events reported. Patient is sitting on chair looks relaxed and comfortable. There is significant improvement on the lower extremity edema. We placed a vascular consult yesterday, and we will try to call them again today to give a further recommendation in regard of the abnormal arterial Doppler study. Review of Systems Constitutional: Reports: no symptoms. Objective Last 24 Hrs of Vital Signs/I&O Vital Signs Date Time Temp Pulse Resp B/P Pulse O2 O2 Flow FiO2 Ox Delivery Rate 02/09 0824 97 Room Air 02/09 0738 97.8 84 20 150/54 91 Room Air 02/09 0330 87 Room Air 02/09 0000 93 Nasal 2.0L Cannula 02/08 2228 98.1 88 20 152/60 92 02/08 1640 91 Room Air 02/08 1600 96 Nasal 2.0L Cannula 02/08 1456 97.9 89 20 132/68 99 / 1342 94 Room Air Intake & Output 02/09 1600 02/09 0800 02/09 0000 Intake Total 240 240 Output Total 200 Balance 240 40 Intake, Oral 240 240 Output, Stool 200 Patient 85.417 kg Weight Physical Exam General Appearance: Alert, Oriented X3, Cooperative, No Acute Distress Skin: No Rashes HEENT: Atraumatic, PERRLA, EOMI, Mucous Membr. moist/pink Cardiovascular: Regular Rate, Normal S1, Normal S2, No Murmurs Lungs: ronchi over both lungs but no wheezing Abdomen: Soft, No Tenderness, cholestomy drainging brown non bloody semi-formed stool Neurological: Normal Speech Extremities: No Cyanosis, trace edema Current Medications: Current Medications Sig/Johnna Start time Last Medication Dose Route Stop Time Status Admin Acetaminophen 650 MG Q4P PRN 01/31 1100 AC 02/05 PO 0113 Albuterol Sulfate 2 PUF Q4P PRN 02/06 0800 AC 02/06 INH 1313 Albuterol Sulfate 3 ML EVERY 4 HRS/AWAKE 02/05 1600 AC 02/09 INH 0822 Amoxicillin/ 500 MG 5PM 02/09 1700 AC Clavulanate Potassium PO Amoxicillin/ 500 MG ONCE ONE 02/08 1800 DC 02/08 Clavulanate Potassium PO 02/08 1801 2056 Ampicillin Sodium/ 3,000 MG Q24H 02/06 1800 DC 02/07 Sulbactam Sodium IV 1759 Sodium Chloride 100 ML Calcitriol 0.25 MCG MoWeFr PRN 01/30 0815 AC IV Diclofenac Sodium 1 MAI 4 TIMES/DAY 02/05 1400 AC 02/08 TOP 1408 Epoetin Guzman 4,000 UNIT MoWeFr PRN 01/30 0815 AC IV Furosemide 80 MG DAILY 02/08 1138 AC 02/08 PO 1408 Insulin Aspart 0 AT BEDTIME 02/01 2200 AC 02/08 SC 2204 Insulin Aspart 0 TIDAC 02/01 1200 AC 02/09 SC 0757 Pantoprazole Sodium 40 MG DAILY 01/28 1027 AC 02/08 IV 1407 Patient Medication 1 ED .STK-MED ONE 02/08 1335 [facility] Teaching ED 02/08 133 Prednisone 40 MG DAILY 02/06 1616 02/08 PO 1408 Sodium Chloride 2 SPRAY Q4P PRN 01/31 0430 02/05 CHULA 2133 Trazodone HCl 50 MG AT BEDTIME 01/30 220 AC 02/08 PO 205 Warfarin Sodium 5 MG COUMADIN 1700 ONE 02/08 1700 DC 02/08 PO 02/08 1701 1722 Last 24 Hrs of Lab/Satnam Results Last 24 Hrs of Labs/Mics: Laboratory Tests 02/09/17 0610: Anion Gap 7, Estimated GFR 18 L, BUN/Creatinine Ratio 8.8, PT 26.2 H, INR 2.52 H, CBC w Diff NO MAN DIFF REQ, RBC 3.36 L, MCV 91.2, MCH 28.4, RDW 21.5 H, MPV 9.3, Gran % 92.9 H, Lymphocytes % 3.3 L, Monocytes % 3.4, Eosinophils % 0.3, Basophils % 0.1, Absolute Granulocytes 9.7 H, Absolute Lymphocytes 0.3 L, Absolute Monocytes 0.4, Absolute Eosinophils 0, Absolute Basophils 0, PUBS MCHC 31.1 L 02/08/17 1235: Estimated GFR > 60, BUN/Creatinine Ratio Assessment/Plan Assessment: Plan # S/P exploratory laparotomy with transverse colectomy and end colostomy for ischemic bowel Stable and denies any current complain, colostomy is filled with brown nonbloody stool. Patient denies any current abdominal pain, nausea, or vomiting. * [place] can come out monday as per surgery * Stable we will follow surgical recommendations # Left upper extremity swelling sp AV fistula Left arm still swollen, patient has left AV fistula on the left arm that was recently placed. This swelling was evaluated by vascular recently and they recommended arm elevation, however patient left arm swelling did not improve. Venous Doppler excluded DVTs. Arterial Doppler: 3.3 cm hypoechoic focus superior to the incision site is suggestive of a hematoma or seroma. Clinical correlation recommended. I spoke to vascular surgery service yesterday to comment on the arterial Doppler results, and to provide us with further recommendation. left arm circumference yesterdasy was 34cm arm and 31.5cm on forearm. Today arm circumference is arm 34 cm and forarm is 30 cm. surgery recommending no interventions. * We will follow vascular recommendation * Continue arm elevation. * We will contact vascular again today. # ESRD on Dialysis MWF * Nephro on board * Dialysis again today * Hold anti-hypertensives on morning of dialysis (if on as outpatient) * We continue Lasix 80 mg daily as per nephrology * As per nephrology has outpatient seat at [facility] post discharge # Hx of COPD Succesfully extubated on day 0 post surgery. He has Previous history of MRSA and Pseudomonas in the lower respiratory tract. Vice President Payer Dr. Perry is on board. Yesterday patient had leukocytosis with worsening of his dyspnea, chest x-ray was suggestive of pneumonia, patient was started on IV Unasyn and steroid This morning patient reported significant improvement of his shortness breath, however still complaining of mild cough productive of white sputum * cont TRC/Nebs * We will follow up sputum culture * Patient will be continued on oral Augmentin as 500 mg once daily after dialysis. * She will finish a total 5 days of antibiotic * Continue prednisone 40mg x 5 days without a taper as per pulmonology. # Left renal obstruction Asymptomatic obstructed left kidney due to UPJ stone. Risk of surgery for stone removal/stent without sepsis outweighs benefits for this ESRD-dialysis pt. Urology consulted, Dr. Elise. * NTD for now #Anemia most likely 2/2 ESRD * H&h low but stable, cont' monitoring #History of Afib INR today is 2.52 * We will continue Coumadin 5 mg daily * We will dose Coumadin daily # Diabetes mellitus * ISS, finger stick glucose #History of gout Patient reported improvement of heel pain, he still has no symptom or signs suggestive of gout flare. * Voltaren gel for heels Diet: Renal dialysis diet DVT ppx: Warfarin FULL CODE Problem List: 1. End-stage renal disease on hemodialysis Pain Ratin Pain Location: na Pain Goal: Remain pain free Pain Plan: See assessment and plan Tomorrow's Labs & Rationales: CBC M BEP HERMINIA LINDO 02/09/17 1429: Attending MD Review Statement Attending Statement Attending MD Statement: examined this patient, discuss w/resident/PA/STOPER, agreed w/resident/PA/STOPER, discussed with family, reviewed EMR data (avail), discussed with nursing, discussed with case mgmt, reviewed images Attending Assessment/Plan: 72M COPD, recent worsening renal failure now with end-stage renal disease on hemodialysis, paroxysmal atrial fibrillation who is on anticoagulation, chronic heart failure with preserved ejection fraction LVEF of 50%, 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 Plan - ESRD on dialysis, plan as per nephrology, dialysis. - Continue Coumadin INR therapeutic - Continue home medications - dyspnea at rest, repeat chest xray suggestive of right sided worsening infiltrates f/u ID. started on unasyn and steroid, f/u pulmonary. oxygen supplementation as needed, encourage incentive spirometry. elevate head end of bed. complete steroid x 5days total. changed i/v abx to PO abx. abx course as per ID. - left upper extremity edema USG negative for DVT, USG arterial without any significant stenosis but hematoma vs seroma. vascular surgery no acute intervention needed. f/u o/p. d/c planning to [facility]. arranged HD as o/p, f/u nephrology in 1 week, vascular surgery in 2-3 weeks, PCP in 1 week.
[2017-02-09 07:38] VITALS: BP 150/54
[2017-02-09 08:14] LABS: ABSOLUTE BASOPHIL COUNT 0 /CUMM (0.0-0.2); ABSOLUTE EOSINOPHIL COUNT 0 /CUMM (0.0-0.7); ABSOLUTE GRANULOCYTE CT 9.7 /CUMM (1.4-6.5); ABSOLUTE LYMPH COUNT 0.3 /CUMM (1.2-3.4); ABSOLUTE MONOCYTE COUNT 0.4 /CUMM (0.10-0.60); BASOPHIL % 0.1 % (0.0-2.0); EOSINOPHIL % 0.3 % (0-5); HEMATOCRIT 30.6 % (42-52); MEAN CORPUSCULAR HGB 28.4 PG (27.0-31.0); MEAN CORPUSCULAR HGB CONC 31.1 G/DL (33.0-37.0); MEAN CORPUSCULAR VOLUME 91.2 FL (80.0-94.0); MEAN PLATELET VOLUME 9.3 FL (7.4-10.4); PLATELET COUNT 119 /CUMM (130-400); RBC DISTRIBUTION WIDTH 21.5 % (11.5-14.5); RED BLOOD CELL CT 3.36 /CUMM (4.70-6.10); WHITE BLOOD CELL COUNT 10.5 /CUMM (4.8-10.8)
[2017-02-09 08:22] LABS: PT 26.2 SEC (9.4-12.5)
[2017-02-09 09:11] LABS: GRANULOCYTE % 92.9 % (42.2-75.2)
--- NOTE | 2017-02-09 11:11 | PN- Vascular Surgery ---
See Addendum Subjective Subjective: Called to evaluate patient for left upper extremity swelling and hematoma after venous Doppler and arterial Doppler performed of the left upper extremity. Patient states that the pain and swelling is getting better in the left upper extremity. Objective Vital Signs and I&Os Vital Signs Date Time Temp Pulse Resp B/P Pulse O2 O2 Flow FiO2 Ox Delivery Rate 02/09 0824 97 Room Air 02/09 0738 97.8 84 20 150/54 91 Room Air 02/09 0330 87 Room Air 02/09 0000 93 Nasal 2.0L Cannula 02/08 2228 98.1 88 20 152/60 92 02/08 1640 91 Room Air 02/08 1600 96 Nasal 2.0L Cannula 02/08 1456 97.9 89 20 132/68 99 02/08 1342 94 Room Air Intake & Output 02/09 0800 02/09 0000 02/08 1600 02/08 0802/08 0000 Intake Total 240 240 650 240 240 Output Total 200 2265 100 150 Balance 240 40 -1615 140 90 Intake, Oral 240 240 650 240 240 Number 0 Bowel Movements Output, 2000 Dialysate Output, Stool 200 250 150 Output, Urine 15 100 Patient 188 lb 184 lb 188 lb Weight Physical Exam: Well-developed well-nourished no apparent distress. 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 Extremity is warm, no signs ischemia. Left antecubital region with fistula, palpable thrill, mild surrounding swelling, no erythema no signs of infection, no obvious hematoma on exam, nontender. Neuro: Alert and oriented x3 Psych: Mood affect normal, normal memory normal judgment. Skin: Warm and dry, no rash on exposed skin Assessment/Plan Assessment/Plan Patient with a edematous left upper extremity and small hematoma versus seroma, 3.3 cm near the left antecubital fossa fistula site seen on ultrasound. Fistula is patent and functioning. Discussed with Dr. Chen, no need for any further vascular surgery intervention. No signs of infection. Recommend elevation of the extremity. Please call's with any concerns of infection or worsening swelling. Core Measures/Miscellaneous Venous Thromboembolism VTE Risk Factors: Age > 40, Surgery VTE Contraindications: No Contraindications VTE Diagnosis: No Beta Amanda Is Beta Amanda a Home Med? No Antibiotics Is Patient on Antibiotics? Yes If Yes: prophylaxis
--- NOTE | 2017-02-09 11:38 | NUR ---
PT TO DIALYSIS AT 1105. 11AM GLUCOSE CHECK REVEALED SUGAR OF 406. PT ADMITTED TO DRINKING 2 CANS OF SODA 15 MINUT[address] TO CHECK. [address]. JUNIOR JOSE MADE AWARE. THIS RN DID NOT ADMINISTER INSULIN BECAUSE PT NOT EATING AT THIS TIME HE IS GOING DOWN FOR DIALYSIS.
--- NOTE | 2017-02-09 11:41 | PN- Pulmonary ---
Subjective HPI/Critical Care Issues: pt seen and examined feels better overall left arm still swollen leg edema improved no significant dyspnea Objective Current Medications: Current Medications Sig/Johnna Start time Last Medication Dose Route Stop Time Status Admin Acetaminophen 650 MG Q4P PRN 01/31 1100 AC 02/05 PO 0113 Albuterol Sulfate 2 PUF Q4P PRN 02/06 0800 AC 02/06 INH 1313 Albuterol Sulfate 3 ML EVERY 4 HRS/AWAKE 02/05 1600 AC 02/09 INH 0822 Amoxicillin/ 500 MG 5PM 02/09 1700 AC Clavulanate Potassium PO Amoxicillin/ 500 MG ONCE ONE 02/08 1800 DC 02/08 Clavulanate Potassium PO 02/08 1801 2056 Ampicillin Sodium/ 3,000 MG Q24H 02/06 1800 DC 02/07 Sulbactam Sodium IV 1759 Sodium Chloride 100 ML Calcitriol 0.25 MCG MoWeFr PRN 01/30 0815 AC IV Diclofenac Sodium 1 MAI 4 TIMES/DAY 02/05 1400 AC 02/08 TOP 1408 Epoetin Guzman 4,000 UNIT MoWeFr PRN 01/30 0815 AC IV Furosemide 80 MG DAILY 02/08 1138 AC 02/08 PO 1408 Insulin Aspart 0 AT BEDTIME 02/01 2200 AC 02/08 SC 2204 Insulin Aspart 0 TIDAC 02/01 1200 AC 02/09 SC 0757 Pantoprazole Sodium 40 MG DAILY 01/28 1027 AC 02/08 IV 1407 Patient Medication 1 ED .STK-MED ONE 02/08 1335 DC Teaching ED 02/08 1336 Prednisone 40 MG DAILY 02/06 1616 AC 02/08 PO 1408 Sodium Chloride 2 SPRAY Q4P PRN 01/31 0430 AC 02/05 CHULA 2133 Trazodone HCl 50 MG AT BEDTIME 01/30 2200 AC 02/08 PO 2056 Warfarin Sodium 5 MG COUMADIN 1700 ONE 02/09 1700 AC PO 02/09 1701 Warfarin Sodium 5 MG COUMADIN 1700 ONE 02/08 1700 DC 02/08 PO 02/08 1701 1722 Vital Signs & I&O Last 24 Hrs of Vitals and I&O: Vital Signs Date Time Temp Pulse Resp B/P Pulse O2 O2 Flow FiO2 Ox Delivery Rate 02/09 0824 97 Room Air 02/09 0738 97.8 84 20 150/54 91 Room Air 02/09 0330 87 Room Air 02/09 0000 93 Nasal 2.0L Cannula 02/08 2228 98.1 88 20 152/60 92 02/08 1640 91 Room Air 02/08 1600 96 Nasal 2.0L Cannula 02/08 1456 97.9 89 20 132/68 99 02/08 1342 94 Room Air Intake & Output 02/09 1600 02/09 0800 04 0000 Intake Total 240 240 Output Total 200 Balance 240 40 Intake, Oral 240 240 Output, Stool 200 Patient 188 lb Weight Exam Other Physical Findings: gen awake and alert heent ncat cvs s1, s2 lungs rare bibasilar rhonchi abd soft, colostomy ext no edema Results Last 24 Hrs of Lab Results: Laboratory Tests 02/09/17 0610: Anion Gap 7, Estimated GFR 18 L, BUN/Creatinine Ratio 8.8, PT 26.2 H, INR 2.52 H, CBC w Diff NO MAN DIFF REQ, RBC 3.36 L, MCV 91.2, MCH 28.4, RDW 21.5 H, MPV 9.3, Gran % 92.9 H, Lymphocytes % 3.3 L, Monocytes % 3.4, Eosinophils % 0.3, Basophils % 0.1, Absolute Granulocytes 9.7 H, Absolute Lymphocytes 0.3 L, Absolute Monocytes 0.4, Absolute Eosinophils 0, Absolute Basophils 0, PUBS MCHC 31.1 L 02/08/17 1235: Estimated GFR > 60, BUN/Creatinine Ratio Impression/Plan Impression/Plan Impression/Plan: Impression 72 year old man * s/p exp lap & transverse colectomy/colostomy for bowel ischemia * esrd on hd * COPD with a chronic cough * chronic anemia secondary to ESRD and previous GI bleed * a.fib hx * DM * medial right lung base consolidation? retrocardiac left lung opacity ? atelectasis Plan - prednisone 40mg x 5 days TOTAL - f/u surgery, nephrology, Abx per ID - HD, diuresis per nephrolgoy - anticoagulation for a.fib - trc/nebs DVT prophylaxis at all times
--- NOTE | 2017-02-09 11:59 | PN- Nephrology ---
Assessment/Plan Assessment: ESRD - Extra session for UF today - patient agreeable to 1L UF. Wants outpatient EDW to remain at 85kg. Tried to discuss contingency plans if his were to gain a significant amount of fluid between HD sessions. Agreeable to coming in for extra HD sessions as outpatient as needed to maintain EDW at 85kg without dropping BP. 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 We are trying to avoid hypotension with dialysis. Obstructing Left renal pelvic stone - Has been evaluated by Urology - no need for intervention. A fib - INR 1.98 on admission. Is therapeutic again. RADHA Swelling - Post-op - Ultrasound without gross stenosis. Suggestion: -2L session today for UF only -Will raise outpatient EDW to 85kg. -Hold anti-hypertensives on morning of dialysis (if on as outpatient) -Vascular follow-up Please call [phone] with ?'s Subjective Subjective: Pt seen and examined at dialysis Feeling OK - still with cough Last chest x-ray on 02/06 with possible PNA and central vascular congestion 85.3kg today Pt agreeable to 1L UF today Objective Vital Signs and I&Os Vital Signs Date Time Temp Pulse Resp B/P Pulse O2 O2 Flow FiO2 Ox Delivery Rate 02/09 0824 97 Room Air 02/09 0738 97.8 84 20 150/54 91 Room Air 02/09 0330 87 Room Air 02/09 0000 93 Nasal 2.0L Cannula 02/08 2228 98.1 88 20 152/60 92 02/08 1640 91 Room Air 02/08 1600 96 Nasal 2.0L Cannula 02/08 1456 97.9 89 20 132/68 99 /05 1342 94 Room Air Intake & Output 02/09 1600 02/09 0400 02/08 1600 02/08 0400 02/07 1600 02/07 0400 Intake Total 240 240 890 240 610 250 Output Total 200 2365 150 350 400 Balance 240 40 -1475 90 260 -150 Intake, IV 0 Intake, Oral 240 240 890 240 610 250 Number 0 1 Bowel Movements Output, 2000 Dialysate Output, Stool 200 250 150 350 400 Output, Urine 115 0 Patient 188 lb 184 lb 187 lb Weight Physical Exam: Gen - OK appearing HEENT - supple CV - RRR Chest - significant upper airway sounds; no crackles or wheezes Abd - soft, nontender Upper ext - RADHA +pitting edema, RADHA AVF +thrill/+bruit Lower ext - 1+ edema Skin - bruise on L forearm Neuro - AOX3 Current Medications: Current Medications Sig/Johnna Start time Last Medication Dose Route Stop Time Status Admin Acetaminophen 650 MG Q4P PRN 01/31 1100 AC 02/05 PO 0113 Albuterol Sulfate 2 PUF Q4P PRN 02/06 0800 AC 02/06 INH 1313 Albuterol Sulfate 3 ML EVERY 4 HRS/AWAKE 02/05 1600 AC 02/09 INH 0822 Amoxicillin/ 500 MG 5PM 02/09 1700 AC Clavulanate Potassium PO Amoxicillin/ 500 MG ONCE ONE 02/08 1800 DC 02/08 Clavulanate Potassium PO 02/08 1801 2056 Ampicillin Sodium/ 3,000 MG Q24H 02/06 1800 DC 02/07 Sulbactam Sodium IV 1759 Sodium Chloride 100 ML Calcitriol 0.25 MCG MoWeFr PRN 01/30 0815 IV Diclofenac Sodium 1 MAI 4 TIMES/DAY 02/05 1400 AC 02/08 TOP 1408 Epoetin Guzman 4,000 UNIT MoWeFr PRN 01/30 0815 AC IV Furosemide 80 MG DAILY 02/08 1138 AC 02/08 PO 1408 Insulin Aspart 0 AT BEDTIME 02/01 2200 AC 02/08 SC 2204 Insulin Aspart 0 TIDAC 02/01 1200 AC 02/09 SC 0757 Pantoprazole Sodium 40 MG DAILY 01/28 1027 AC 02/08 IV 1407 Patient Medication 1 ED .STK-MED ONE 02/08 1335 [facility] Teaching ED 02/08 1336 Prednisone 40 MG DAILY 02/06 1616 AC /05 PO 1408 Sodium Chloride 2 SPRAY Q4P PRN 01/31 0430 AC 02/05 CHULA 2133 Trazodone HCl 50 MG AT BEDTIME 01/30 2200 AC / PO 2056 Warfarin Sodium 5 MG COUMADIN 1700 ONE 02/09 1700 AC PO 02/09 1701 Warfarin Sodium 5 MG COUMADIN 1700 ONE 02/08 1700 DC 04 PO 02/08 1701 1722 Results Pertinent Lab Results: Laboratory Tests 02/09 02/08 04/ 0610 1235 0917 Chemistry Sodium (137 - 145 mmol/L) 133 L Potassium (3.5 - 5.1 mmol/L) 4.8 Chloride (98 - 107 mmol/L) 99 Carbon Dioxide (22 - 30 mmol/L) 26 Anion Gap (5 - 16) 7 BUN (9 - 20 mg/dL) 30 H < 2 L Cancelled Creatinine (0.7 - 1.2 mg/dL) 3.4 H 0.3 L Cancelled Estimated GFR (>60 ml/min) 18 L > 60 BUN/Creatinine Ratio (7 - 25 %) 8.8 Cancelled Coagulation PT (9.4 - 12.5 SEC) 26.2 H INR (0.90 - 1.17) 2.52 H Hematology CBC w Diff NO MAN DIFF REQ WBC (4.8 - 10.8 /CUMM) 10.5 RBC (4.70 - 6.10 /CUMM) 3.36 L Hgb (14.0 - 18.0 G/DL) 9.5 L Hct (42 - 52 %) 30.6 L MCV (80.0 - 94.0 FL) 91.2 MCH (27.0 - 31.0 PG) 28.4 RDW (11.5 - 14.5 %) 21.5 H Plt Count (130 - 400 /CUMM) 119 L MPV (7.4 - 10.4 FL) 9.3 Gran % (42.2 - 75.2 %) 92.9 H Lymphocytes % (20.5 - 51.1 %) 3.3 L Monocytes % (1.7 - 9.3 %) 3.4 Eosinophils % (0 - 5 %) 0.3 Basophils % (0.0 - 2.0 %) 0.1 Absolute Granulocytes (1.4 - 6.5 /CUMM) 9.7 H Absolute Lymphocytes (1.2 - 3.4 /CUMM) 0.3 L Absolute Monocytes (0.10 - 0.60 /CUMM) 0.4 Absolute Eosinophils (0.0 - 0.7 /CUMM) 0 Absolute Basophils (0.0 - 0.2 /CUMM) 0 PUBS MCHC (33.0 - 37.0 G/DL) 31.1 L 04/05 04/04 0900 0620 Chemistry Sodium (137 - 145 mmol/L) 135 L 133 L Potassium (3.5 - 5.1 mmol/L) 4.7 5.2 H Chloride (98 - 107 mmol/L) 98 101 Carbon Dioxide (22 - 30 mmol/L) 27 22 Anion Gap (5 - 16) 10 11 BUN (9 - 20 mg/dL) 41 H 23 H Creatinine (0.7 - 1.2 mg/dL) 4.7 H 3.3 H Estimated GFR (>60 ml/min) 12 L 19 L BUN/Creatinine Ratio (7 - 25 %) 8.7 7.0 Calcium (8.4 - 10.2 mg/dL) 9.2 Phosphorus (2.5 - 4.5 mg/dL) 5.1 H Magnesium (1.6 - 2.3 mg/dL) 2.2 Coagulation PT (9.4 - 12.5 SEC) 28.7 H 22.9 H INR (0.90 - 1.17) 2.76 H 2.20 H Hematology CBC w Diff MAN DIFF ORDERED MAN DIFF ORDERED WBC (4.8 - 10.8 /CUMM) 10.0 11.3 H RBC (4.70 - 6.10 /CUMM) 3.30 L 3.47 L Hgb (14.0 - 18.0 G/DL) 9.5 L 9.9 L Hct (42 - 52 %) 29.6 L 31.7 L MCV (80.0 - 94.0 FL) 89.9 91.3 MCH (27.0 - 31.0 PG) 28.7 28.5 RDW (11.5 - 14.5 %) 20.8 H 21.5 H Plt Count (130 - 400 /CUMM) 119 L 106 L MPV (7.4 - 10.4 FL) 9.4 9.6 Gran % (42.2 - 75.2 %) 88.6 H 93.7 H Lymphocytes % (20.5 - 51.1 %) 5.0 L 4.1 L Monocytes % (1.7 - 9.3 %) 5.7 1.9 Eosinophils % (0 - 5 %) 0.7 0.1 Basophils % (0.0 - 2.0 %) 0 L 0.2 Absolute Granulocytes (1.4 - 6.5 /CUMM) 8.8 H 10.6 H Segmented Neutrophils (42.2 - 75.2 %) 81 H 85 H Band Neutrophils (0.0 - 5.0 %) 4 2 Absolute Lymphocytes (1.2 - 3.4 /CUMM) 0.5 L 0.5 L Lymphocytes (20.5 - 51.1 %) 5 L 8 L Monocytes (1.7 - 9.3 %) 5 1 L Absolute Monocytes (0.10 - 0.60 /CUMM) 0.6 0.2 Absolute Eosinophils (0.0 - 0.7 /CUMM) 0.1 0 Absolute Basophils (0.0 - 0.2 /CUMM) 0 0 Metamyelocytes (0.0 - 1.0 %) 3 H 3 H Myelocytes (0 - 0 %) 2 H 1 H Platelet Estimate (ADEQUATE) DECREASED DECREASED Polychromasia 1+ 1+ Hypochromic-Microcytic 2+ 1+ Poikilocytosis 1+ 2+ Anisocytosis 1+ 1+ PUBS MCHC (33.0 - 37.0 G/DL) 32.0 L 31.2 L
[2017-02-09 14:46] VITALS: BP 132/56
--- NOTE | 2017-02-09 15:10 | PN- Infect Dx ---
Subjective Subjective: Afebrile on steroids. He continues to complain of a rattling in his chest, but notes no change in his cough, which is dry, or shortness of breath. Objective Last 24 Hrs of Vital Signs/I&O Vital Signs Date Time Temp Pulse Resp B/P Pulse O2 O2 Flow FiO2 Ox Delivery Rate 02/09 1446 97.7 89 20 132/56 93 02/09 1238 Nasal 2.0L Cannula 02/09 0824 97 Room Air 02/09 0738 97.8 84 20 150/54 91 Room Air 02/09 0330 87 Room Air 02/09 0000 93 Nasal 2.0L Cannula 02/08 2228 98.1 88 20 152/60 92 02/08 1640 91 Room Air 02/08 1600 96 Nasal 2.0L Cannula Intake & Output 02/09 1600 02/09 0800 02/09 0000 Intake Total 240 240 Output Total 150 200 Balance -150 240 40 Intake, Oral 240 240 Output, Stool 200 Output, Urine 150 Patient 188 lb Weight Physical Exam Other Physical Findings: He appears comfortable in no acute distress Lungs scattered rhonchi Heart regular rhythm with no murmur Abdomen is mildly distended, nontender with positive bowel sounds; liquid stool in the colostomy Extremities decreased left upper extremity swelling, with no tenderness; fistula incision clean, with no erythema or drainage Results Last 24 Hours of Lab Results: Laboratory Tests 02/09 0610 Chemistry Sodium (137 - 145 mmol/L) 133 L Potassium (3.5 - 5.1 mmol/L) 4.8 Chloride (98 - 107 mmol/L) 99 Carbon Dioxide (22 - 30 mmol/L) 26 Anion Gap (5 - 16) 7 BUN (9 - 20 mg/dL) 30 H Creatinine (0.7 - 1.2 mg/dL) 3.4 H Estimated GFR (>60 ml/min) 18 L BUN/Creatinine Ratio (7 - 25 %) 8.8 Coagulation PT (9.4 - 12.5 SEC) 26.2 H INR (0.90 - 1.17) 2.52 H Hematology CBC w Diff NO MAN DIFF REQ WBC (4.8 - 10.8 /CUMM) 10.5 RBC (4.70 - 6.10 /CUMM) 3.36 L Hgb (14.0 - 18.0 G/DL) 9.5 L Hct (42 - 52 %) 30.6 L MCV (80.0 - 94.0 FL) 91.2 MCH (27.0 - 31.0 PG) 28.4 RDW (11.5 - 14.5 %) 21.5 H Plt Count (130 - 400 /CUMM) 119 L MPV (7.4 - 10.4 FL) 9.3 Gran % (42.2 - 75.2 %) 92.9 H Lymphocytes % (20.5 - 51.1 %) 3.3 L Monocytes % (1.7 - 9.3 %) 3.4 Eosinophils % (0 - 5 %) 0.3 Basophils % (0.0 - 2.0 %) 0.1 Absolute Granulocytes (1.4 - 6.5 /CUMM) 9.7 H Absolute Lymphocytes (1.2 - 3.4 /CUMM) 0.3 L Absolute Monocytes (0.10 - 0.60 /CUMM) 0.4 Absolute Eosinophils (0.0 - 0.7 /CUMM) 0 Absolute Basophils (0.0 - 0.2 /CUMM) 0 PUBS MCHC (33.0 - 37.0 G/DL) 31.1 L Last 24 Hours of Satnam Results: No recent cultures Assessment/Plan Impression: Stable with temperatures normal (on steroids) and white blood cell count decreased now on Augmentin Day 3 of treatment for possible pneumonia, with no significant change in his respiratory symptoms on antibiotics. His left upper extremity inflammation persists, though perhaps somewhat improved, now 2 weeks status post creation of the AV fistula, with a small collection seen on ultrasound, possibly representing a seroma or hematoma. Have discussed with vascular surgery who does not feel that aspiration of this collection is indicated at this time. He is now 12 days status post transverse colectomy for mesenteric ischemia/gangrenous transverse colon. Suggestion: 1. Continue elevation and Dilan wraps to the left upper extremity 2. Continue Augmentin for 2 more days
--- NOTE | 2017-02-09 21:18 | NUR ---
ARM CIRCUMFERENCE LOWER ARM: 30 CM UPPER ARM: 34 CM
[2017-02-09 23:44] VITALS: BP 126/56
[2017-02-10 07:26] VITALS: BP 142/62
--- NOTE | 2017-02-10 08:01 | PN- Housestaff ---
[address] 0800: Subjective Follow-up For: Ischemic colitis status post surgical internvention Hemodialysis Left arm swelling Subjective: Afebrile, stable, WBCs mildly increased. No acute overnight events are reported. Patient has no current complaints. He still had this mild cough, but saturating well on room air. He went for dialysis earlier today. Review of Systems Constitutional: Reports: see HPI. Objective Last 24 Hrs of Vital Signs/I&O Vital Signs Date Time Temp Pulse Resp B/P Pulse O2 O2 Flow FiO2 Ox Delivery Rate 02/10 1413 98.0 97 20 120/72 94 02/10 1251 94 Room Air Room Air 02/10 0838 98 Nasal 2.0L Cannula 02/10 0726 97.9 84 20 142/62 93 Room Air 02/10 0340 91 Room Air 02/09 2344 97.6 76 20 126/56 92 Room Air 02/09 1605 91 Room Air 02/09 1600 Room Air 02/09 1446 97.7 89 20 132/56 93 Intake & Output 02/10 1600 02/10 0800 02/10 0000 Intake Total Output Total 250 100 Balance -250 -100 Output, Stool 200 100 Output, Urine 50 Patient 85.275 kg Weight Physical Exam General Appearance: Alert, Oriented X3, Cooperative, No Acute Distress Skin: No Rashes HEENT: Atraumatic, PERRLA, EOMI, Mucous Membr. moist/pink Cardiovascular: Regular Rate, Normal S1, Normal S2, No Murmurs Lungs: Clear to Auscultation, Normal Air Movement Abdomen: Soft, No Tenderness Neurological: Normal Speech Extremities: No Clubbing, No Cyanosis, trace edema on LE B/L, right upper extremety edema Current Medications: Current Medications Sig/Johnna Start time Last Medication Dose Route Stop Time Status Admin Acetaminophen 650 MG Q4P PRN 01/31 1100 AC 02/05 PO 0113 Albuterol Sulfate 2 PUF Q4P PRN 02/06 0800 AC 02/06 INH 1313 Albuterol Sulfate 3 ML EVERY 4 HRS/AWAKE 02/05 1600 AC 02/10 INH 1252 Amoxicillin/ 500 MG 5PM 02/09 1700 AC 02/09 Clavulanate Potassium PO 02/10 1701 1753 Calcitriol 0.25 MCG MoWeFr PRN 01/30 0815 AC IV Diclofenac Sodium 1 MAI 4 TIMES/DAY 02/05 1400 AC 02/09 TOP 2253 Epoetin Guzman 4,000 UNIT MoWeFr PRN 01/30 0815 AC IV Furosemide 80 MG DAILY 02/08 1138 AC 02/10 PO 1250 Insulin Aspart 0 AT BEDTIME 02/01 2200 AC 02/09 SC 2252 Insulin Aspart 0 TIDAC 02/01 1200 AC 02/10 SC 1316 Pantoprazole Sodium 40 MG DAILY 01/28 1027 AC 02/08 IV 1407 Prednisone 40 MG DAILY 02/06 1616 DC 02/10 PO 1250 Sodium Chloride 2 SPRAY Q4P PRN 01/31 0430 AC 02/05 CHULA 2133 Trazodone HCl 50 MG AT BEDTIME 01/30 2200 AC 02/09 PO 2252 Warfarin Sodium 5 MG COUMADIN 1700 ONE 02/10 1700 AC PO 02/10 1701 Warfarin Sodium 5 MG COUMADIN 1700 ONE 02/09 1700 DC 02/09 PO 02/09 1701 1753 Last 24 Hrs of Lab/Satnam Results Last 24 Hrs of Labs/Mics: Laboratory Tests 02/10/17 0800: Anion Gap 8, Estimated GFR 13 L, BUN/Creatinine Ratio 10.7, PT 30.0 H, INR 2.89 H, CBC w Diff NO MAN DIFF REQ, RBC 3.31 L, MCV 90.9, MCH 28.2, RDW 21.1 H, MPV 9.2, Gran % 92.7 H, Lymphocytes % 3.2 L, Monocytes % 3.9, Eosinophils % 0.2, Basophils % 0 L, Absolute Granulocytes 11.3 H, Absolute Lymphocytes 0.4 L, Absolute Monocytes 0.5, Absolute Eosinophils 0, Absolute Basophils 0, PUBS MCHC 31.0 L Assessment/Plan Assessment: Plan # S/P exploratory laparotomy with transverse colectomy and end colostomy for ischemic bowel Stable and denies any current complain, colostomy is filled with brown nonbloody stool. Patient denies any current abdominal pain, nausea, or vomiting. * Bre can come out today as per surgery note 3 days ago * Stable we will follow surgical recommendations # Left upper extremity swelling sp AV fistula Left arm still swollen, patient has left AV fistula on the left arm that was recently placed. This swelling was evaluated by vascular recently and they recommended arm elevation, however patient left arm swelling did not improve. Venous Doppler excluded DVTs. Arterial Doppler: 3.3 cm hypoechoic focus superior to the incision site is suggestive of a hematoma or seroma. Clinical correlation recommended. I spoke to vascular surgery service yesterday to comment on the arterial Doppler results, and to provide us with further recommendation. left arm circumference yesterdasy was 34cm arm and 31.5cm on forearm. surgery recommending no interventions. Vascular saw him yesterday and recommended no interventions, but need to follow was an outpatient. * Continue arm elevation. * We will instruct patient to follow-up with vascular as an outpatient. # ESRD on Dialysis MWF * Nephro on board * Dialysis again today * We will hold antihypertensives on the morning of dialysis. * We continue Lasix 80 mg daily as per nephrology * As per nephrology has outpatient seat at [facility] post discharge # Hx of COPD Succesfully extubated on day 0 post surgery. He has Previous history of MRSA and Pseudomonas in the lower respiratory tract. Wet Suit Gluer Dr. Perry is on board. 5 days ago patient had leukocytosis with worsening of his dyspnea, chest x-ray that time was suggestive of pneumonia, patient was initially started on IV Unasyn and steroid then switch to Augmentin. Today is his last day 5 days course of antibiotic and 5 days course of steroid. * cont TRC/Nebs * We will stop Augmentin after last dose today. * We will stop prednisone after he received the last dose today # Left renal obstruction Asymptomatic obstructed left kidney due to UPJ stone. Risk of surgery for stone removal/stent without sepsis outweighs benefits for this ESRD-dialysis pt. Urology consulted, Dr. Elise. * NTD for now #Anemia most likely 2/2 ESRD * H&h low but stable, cont' monitoring #History of Afib INR today is 2.8 * We will continue Coumadin 5 mg daily * We will dose Coumadin daily # Diabetes mellitus * ISS, finger stick glucose Diet: Renal dialysis diet DVT ppx: Warfarin FULL CODE Problem List: 1. Mesenteric ischemia 2. Hx laparoscopic cholecystectomy Pain Ratin Pain Location: na Pain Goal: Remain pain free Pain Plan: see A&P Tomorrow's Labs & Rationales: CBC and BEP HERMINIA LINDO 02/10/17 1149: Attending MD Review Statement Attending Statement Attending MD Statement: examined this patient, discuss w/resident/PA/CAR RENTAL DELIVERER, agreed w/resident/PA/CAR RENTAL DELIVERER, discussed with family, reviewed EMR data (avail), discussed with nursing, discussed with case mgmt, reviewed images Attending Assessment/Plan: 72M COPD, recent worsening renal failure now with end-stage renal disease on hemodialysis, paroxysmal atrial fibrillation who is on anticoagulation, chronic heart failure with preserved ejection fraction LVEF of 50%, 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 Plan - ESRD on dialysis, plan as per nephrology, dialysis. - Continue Coumadin INR therapeutic - Continue home medications - dyspnea at rest, repeat chest xray suggestive of right sided worsening infiltrates f/u ID. started on unasyn and steroid, f/u pulmonary. oxygen supplementation as needed, encouraged incentive spirometry. complete steroid x 5 days total. changed i/v abx to PO abx. abx course as per ID. - left upper extremity edema USG negative for DVT, USG arterial without any significant stenosis but hematoma vs seroma. vascular surgery no acute intervention needed. f/u o/p. d/c planning to [facility]. arranged HD as o/p, f/u nephrology in 1 week, vascular surgery in 2-3 weeks, PCP in 1 week.
--- NOTE | 2017-02-10 09:55 | NUR ---
0735- PT LEFT FLOOR FOR DIALYSIS. PER INTELLECTUAL PROPERTY LAWYER IVETTE, PT CANNOT EAT BREAKFAST DURING DIALYSIS. BS 372. PER DR. JOSE, HOLD BREAKFAST NOVOLOG SINCE PT NOT ABLE TO EAT BREAKFAST.
[2017-02-10 09:59] LABS: ABSOLUTE BASOPHIL COUNT 0 /CUMM (0.0-0.2); ABSOLUTE EOSINOPHIL COUNT 0 /CUMM (0.0-0.7); ABSOLUTE GRANULOCYTE CT 11.3 /CUMM (1.4-6.5); ABSOLUTE LYMPH COUNT 0.4 /CUMM (1.2-3.4); ABSOLUTE MONOCYTE COUNT 0.5 /CUMM (0.10-0.60); BASOPHIL % 0 % (0.0-2.0); EOSINOPHIL % 0.2 % (0-5); HEMATOCRIT 30.1 % (42-52); MEAN CORPUSCULAR HGB 28.2 PG (27.0-31.0); MEAN CORPUSCULAR VOLUME 90.9 FL (80.0-94.0); MEAN PLATELET VOLUME 9.2 FL (7.4-10.4); PLATELET COUNT 129 /CUMM (130-400); RBC DISTRIBUTION WIDTH 21.1 % (11.5-14.5); RED BLOOD CELL CT 3.31 /CUMM (4.70-6.10); WHITE BLOOD CELL COUNT 12.2 /CUMM (4.8-10.8)
--- NOTE | 2017-02-10 10:23 | PN- Pulmonary ---
Subjective HPI/Critical Care Issues: pt seen and examined doing well in HD left arm swelling again swollen dyspnea stable with exertion, none at rest no n/v/d/c, no cp Objective Current Medications: Current Medications Sig/Johnna Start time Last Medication Dose Route Stop Time Status Admin Acetaminophen 650 MG Q4P PRN 01/31 1100 AC 02/05 PO 0113 Albuterol Sulfate 2 PUF Q4P PRN 02/06 0800 AC 02/06 INH 1313 Albuterol Sulfate 3 ML EVERY 4 HRS/AWAKE 02/05 1600 AC 02/10 INH 0833 Amoxicillin/ 500 MG 5PM 02/09 1700 AC 02/09 Clavulanate Potassium PO 1753 Calcitriol 0.25 MCG MoWeFr PRN 01/30 0815 AC IV Diclofenac Sodium 1 MAI 4 TIMES/DAY 02/05 1400 AC 02/09 TOP 2253 Epoetin Guzman 4,000 UNIT MoWeFr PRN 01/30 0815 AC IV Furosemide 80 MG DAILY 02/08 1138 AC 02/09 PO 1536 Insulin Aspart 0 AT BEDTIME 02/01 2200 AC 02/09 SC 2252 Insulin Aspart 0 TIDAC 02/01 1200 AC 02/09 SC 1537 Pantoprazole Sodium 40 MG DAILY 01/28 1027 AC 02/08 IV 1407 Prednisone 40 MG DAILY 02/06 1616 AC 02/09 PO 1536 Sodium Chloride 2 SPRAY Q4P PRN 01/31 0430 AC 02/05 CHULA 2133 Trazodone HCl 50 MG AT BEDTIME 01/30 2200 AC 02/09 PO 2252 Warfarin Sodium 5 MG COUMADIN 1700 ONE 02/09 1700 DC / PO 02/09 1701 1753 Vital Signs & I&O Last 24 Hrs of Vitals and I&O: Vital Signs Date Time Temp Pulse Resp B/P Pulse O2 O2 Flow FiO2 Ox Delivery Rate 02/10 0838 98 Nasal 2.0L Cannula 02/10 0726 97.9 84 20 142/62 93 Room Air 02/10 0340 91 Room Air 02/09 2344 97.6 76 20 126/56 92 Room Air 02/09 1605 91 Room Air 02/09 1600 Room Air 02/09 1446 97.7 89 20 132/56 93 02/09 1238 Nasal 2.0L Cannula Intake & Output 02/10 1600 02/10 0800 02/10 0000 Intake Total Output Total 250 100 Balance -250 -100 Output, Stool 200 100 Output, Urine 50 Exam Other Physical Findings: gen awake and alert heent ncat cvs s1, s2 lungs rare bibasilar rhonchi abd soft, colostomy ext left arm swelling returned Results Last 24 Hrs of Lab Results: Laboratory Tests 02/10/17 0800: Sodium Pending, Potassium Pending, Chloride Pending, Carbon Dioxide Pending, Anion Gap Pending, BUN Pending, Creatinine Pending, BUN/Creatinine Ratio Pending , PT 30.0 H, INR 2.89 H, CBC w Diff Pending, WBC Pending, RBC Pending, Hgb Pending, Hct Pending, MCV Pending, MCH Pending, RDW Pending, Plt Count Pending, MPV Pending, Gran % Pending, Lymphocytes % Pending, Monocytes % Pending, Eosinophils % Pending, Basophils % Pending, Absolute Granulocytes Pending, Absolute Lymphocytes Pending, Absolute Monocytes Pending, Absolute Eosinophils Pending, Absolute Basophils Pending, PUBS MCHC Pending Impression/Plan Impression/Plan Impression/Plan: Impression 72 year old man * s/p exp lap & transverse colectomy/colostomy for bowel ischemia * esrd on hd * COPD with a chronic cough * chronic anemia secondary to ESRD and previous GI bleed * a.fib hx * DM * left arm swelling Plan - prednisone to complete today - left arm swelling per primary team - f/u surgery, nephrology, Abx per ID - HD, diuresis per nephrolgoy - anticoagulation for a.fib - trc/nebs DVT prophylaxis at all times
[2017-02-10 10:32] LABS: GRANULOCYTE % 92.7 % (42.2-75.2)
--- NOTE | 2017-02-10 10:55 | PN- Nephrology ---
Assessment/Plan Assessment: ESRD - Full HD session today. Weight 85.9kg. Taking off 0.9L. Spoke at length to patient again, he may be agreeable to more fluid off on Monday even if it takes him below 85kg. 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 We are trying to avoid hypotension with dialysis. Obstructing Left renal pelvic stone - Has been evaluated by Urology - no need for intervention. A fib - INR 1.98 on admission. Is therapeutic again. RADHA Swelling - Post-op - Recommended arm elevation and MEREDITH bandage. ?PNA - On 5 day course of augmentin. Suggestion: -HD today -Will raise outpatient EDW to 85kg -May be able to take off more fluid on Monday if the patient is agreeable -Hold anti-hypertensives on morning of dialysis (if on as outpatient) -Vascular follow-up Please call [phone] with ?'s Subjective Subjective: Pt seen and examined on dialysis c/o L arm swelling - no plans for drainage of collection Plan for 2 additional days of augmentin for possible PNA Pt admits to minimal UOP - now back on lasix Objective Vital Signs and I&Os Vital Signs Date Time Temp Pulse Resp B/P Pulse O2 O2 Flow FiO2 Ox Delivery Rate 02/10 0838 98 Nasal 2.0L Cannula 02/10 0726 97.9 84 20 142/62 93 Room Air 02/10 0340 91 Room Air 02/09 2344 97.6 76 20 126/56 92 Room Air 02/09 1605 91 Room Air 02/09 1600 Room Air 02/09 1446 97.7 89 20 132/56 93 06 1238 Nasal 2.0L Cannula Intake & Output 02/10 1600 07 0400 02/09 1600 02/09 0400 02/08 1600 / 0400 Intake Total 990 240 890 240 Output Total 148 376 8336 200 2365 150 Balance -250 -100 -425 40 -1475 90 Intake, Oral 990 240 890 240 Number 0 Bowel Movements Output, 1000 2000 Dialysate Output, Stool 200 100 250 200 250 150 Output, Urine 50 165 115 Patient 187 lb 184 lb Weight Physical Exam: Gen - OK appearing HEENT - supple CV - RRR Chest - significant upper airway sounds; no crackles or wheezes Abd - soft, nontender Upper ext - RADHA +pitting edema, RADHA AVF +thrill/+bruit Lower ext - 1+ edema Skin - bruise on L forearm Neuro - AOX3 Current Medications: Current Medications Sig/Johnna Start time Last Medication Dose Route Stop Time Status Admin Acetaminophen 650 MG Q4P PRN 01/31 1100 AC 02/05 PO 0113 Albuterol Sulfate 2 PUF Q4P PRN 02/06 0800 AC 02/06 INH 1313 Albuterol Sulfate 3 ML EVERY 4 HRS/AWAKE 02/05 1600 AC 02/10 INH 0833 Amoxicillin/ 500 MG 5PM 02/09 1700 AC 02/09 Clavulanate Potassium PO 1753 Calcitriol 0.25 MCG MoWeFr PRN 01/30 0815 AC IV Diclofenac Sodium 1 MAI 4 TIMES/DAY 02/05 1400 AC 02/09 TOP 2253 Epoetin Guzman 4,000 UNIT MoWeFr PRN 01/30 0815 AC IV Furosemide 80 MG DAILY 02/08 1138 AC 02/09 PO 1536 Insulin Aspart 0 AT BEDTIME 02/01 2200 AC 02/09 SC 2252 Insulin Aspart 0 TIDAC 02/01 1200 AC 02/09 SC 1537 Pantoprazole Sodium 40 MG DAILY 01/28 1027 AC 02/08 IV 1407 Prednisone 40 MG DAILY 02/06 1616 AC 02/09 PO 1536 Sodium Chloride 2 SPRAY Q4P PRN 01/31 0430 AC 02/05 CHULA 2133 Trazodone HCl 50 MG AT BEDTIME 01/30 2200 AC 02/09 PO 2252 Warfarin Sodium 5 MG COUMADIN 1700 ONE 02/09 1700 DC 02/09 PO 02/09 1701 1753 Results Pertinent Lab Results: Laboratory Tests 02/10 04 0800 0610 Chemistry Sodium (137 - 145 mmol/L) 130 L 133 L Potassium (3.5 - 5.1 mmol/L) 5.3 H 4.8 Chloride (98 - 107 mmol/L) 98 99 Carbon Dioxide (22 - 30 mmol/L) 24 26 Anion Gap (5 - 16) 8 7 BUN (9 - 20 mg/dL) 49 H 30 H Creatinine (0.7 - 1.2 mg/dL) 4.6 H 3.4 H Estimated GFR (>60 ml/min) 13 L 18 L BUN/Creatinine Ratio (7 - 25 %) 10.7 8.8 Coagulation PT (9.4 - 12.5 SEC) 30.0 H 26.2 H INR (0.90 - 1.17) 2.89 H 2.52 H Hematology CBC w Diff NO MAN DIFF REQ NO MAN DIFF REQ WBC (4.8 - 10.8 /CUMM) 12.2 H 10.5 RBC (4.70 - 6.10 /CUMM) 3.31 L 3.36 L Hgb (14.0 - 18.0 G/DL) 9.3 L 9.5 L Hct (42 - 52 %) 30.1 L 30.6 L MCV (80.0 - 94.0 FL) 90.9 91.2 MCH (27.0 - 31.0 PG) 28.2 28.4 RDW (11.5 - 14.5 %) 21.1 H 21.5 H Plt Count (130 - 400 /CUMM) 129 L 119 L MPV (7.4 - 10.4 FL) 9.2 9.3 Gran % (42.2 - 75.2 %) 92.7 H 92.9 H Lymphocytes % (20.5 - 51.1 %) 3.2 L 3.3 L Monocytes % (1.7 - 9.3 %) 3.9 3.4 Eosinophils % (0 - 5 %) 0.2 0.3 Basophils % (0.0 - 2.0 %) 0 L 0.1 Absolute Granulocytes (1.4 - 6.5 /CUMM) 11.3 H 9.7 H Absolute Lymphocytes (1.2 - 3.4 /CUMM) 0.4 L 0.3 L Absolute Monocytes (0.10 - 0.60 /CUMM) 0.5 0.4 Absolute Eosinophils (0.0 - 0.7 /CUMM) 0 0 Absolute Basophils (0.0 - 0.2 /CUMM) 0 0 PUBS MCHC (33.0 - 37.0 G/DL) 31.0 L 31.1 L 02/08 02/08 02/08 1235 0917 0900 Chemistry Sodium (137 - 145 mmol/L) 135 L Potassium (3.5 - 5.1 mmol/L) 4.7 Chloride (98 - 107 mmol/L) 98 Carbon Dioxide (22 - 30 mmol/L) 27 Anion Gap (5 - 16) 10 BUN (9 - 20 mg/dL) < 2 L Cancelled 41 H Creatinine (0.7 - 1.2 mg/dL) 0.3 L Cancelled 4.7 H Estimated GFR (>60 ml/min) > 60 12 L BUN/Creatinine Ratio (7 - 25 %) Cancelled 8.7 Calcium (8.4 - 10.2 mg/dL) 9.2 Phosphorus (2.5 - 4.5 mg/dL) 5.1 H Magnesium (1.6 - 2.3 mg/dL) 2.2 Coagulation PT (9.4 - 12.5 SEC) 28.7 H INR (0.90 - 1.17) 2.76 H Hematology CBC w Diff MAN DIFF ORDERED WBC (4.8 - 10.8 /CUMM) 10.0 RBC (4.70 - 6.10 /CUMM) 3.30 L Hgb (14.0 - 18.0 G/DL) 9.5 L Hct (42 - 52 %) 29.6 L MCV (80.0 - 94.0 FL) 89.9 MCH (27.0 - 31.0 PG) 28.7 RDW (11.5 - 14.5 %) 20.8 H Plt Count (130 - 400 /CUMM) 119 L MPV (7.4 - 10.4 FL) 9.4 Gran % (42.2 - 75.2 %) 88.6 H Lymphocytes % (20.5 - 51.1 %) 5.0 L Monocytes % (1.7 - 9.3 %) 5.7 Eosinophils % (0 - 5 %) 0.7 Basophils % (0.0 - 2.0 %) 0 L Absolute Granulocytes (1.4 - 6.5 /CUMM) 8.8 H Segmented Neutrophils (42.2 - 75.2 %) 81 H Band Neutrophils (0.0 - 5.0 %) 4 Absolute Lymphocytes (1.2 - 3.4 /CUMM) 0.5 L Lymphocytes (20.5 - 51.1 %) 5 L Monocytes (1.7 - 9.3 %) 5 Absolute Monocytes (0.10 - 0.60 /CUMM) 0.6 Absolute Eosinophils (0.0 - 0.7 /CUMM) 0.1 Absolute Basophils (0.0 - 0.2 /CUMM) 0 Metamyelocytes (0.0 - 1.0 %) 3 H Myelocytes (0 - 0 %) 2 H Platelet Estimate (ADEQUATE) DECREASED Polychromasia 1+ Hypochromic-Microcytic 2+ Poikilocytosis 1+ Anisocytosis 1+ PUBS MCHC (33.0 - 37.0 G/DL) 32.0 L Imaging/Other Studies: EXAM TYPE: RAD - XRY-PORTABLE CHEST XRAY EXAMINATION: XR PORTABLE CHEST CLINICAL INFORMATION: Pleural effusion versus pneumonia versus COPD exacerbation. Progressive shortness of breath with crackles and wheezing. Dialysis patient. COMPARISON: Multiple prior chest x-rays, most recent of which is dated 01/31/2017 TECHNIQUE: Portable AP view of the chest was obtained. FINDINGS: The patient is status post median sternotomy. Right atrial pacer lead, right coronary sinus pacer lead and right ventricular AICD lead are seen in place, unchanged. A right jugular dialysis catheter is in place with tip in the right atrium, unchanged. The cardiomediastinal silhouette is enlarged, unchanged in the interim. There is increasing central vascular congestion and increasing opacity in the medial right lung base. There is also some opacity in the retrocardiac left lung base. No significant pleural effusion or pneumothorax is seen. Bony structures are grossly unremarkable. IMPRESSION: 1. Increasing consolidation in the medial right lung base, suspicious for pneumonia. 2. Retrocardiac left lung base opacity, likely related to subsegmental atelectasis. 3. Central vascular congestion without overt pulmonary edema. 4. No pneumothorax. 5. Dialysis catheter and pacer/AICD leads in place as discussed above.
--- NOTE | 2017-02-10 12:49 | PN- Infect Dx ---
Subjective Subjective: Afebrile. He notes increased left upper extremity swelling. His cough and dyspnea are unchanged. Objective Last 24 Hrs of Vital Signs/I&O Vital Signs Date Time Temp Pulse Resp B/P Pulse O2 O2 Flow FiO2 Ox Delivery Rate 02/10 838 98 Nasal 2.0L Cannula 02/10 726 97.9 84 20 142/62 93 Room Air 02/10 0340 91 Room Air 02/09 2344 97.6 76 20 126/56 92 Room Air 02/09 1605 91 Room Air 02/09 1600 Room Air 02/09 1446 97.7 89 20 132/56 93 Intake & Output 02/10 1600 02/10 0802/10 0000 Intake Total Output Total 250 100 Balance -250 -100 Output, Stool 200 100 Output, Urine 50 Patient 188 lb Weight Physical Exam Other Physical Findings: He appears comfortable in no acute distress Lungs scattered rhonchi bilaterally Heart regular rhythm with no murmur Extremities increased left upper extremity swelling; left hand slightly cool; fistula with bruit with no surrounding erythema or tenderness Results Last 24 Hours of Lab Results: Laboratory Tests 02/11 800 Chemistry Sodium (137 - 145 mmol/L) 130 L Potassium (3.5 - 5.1 mmol/L) 5.3 H Chloride (98 - 107 mmol/L) 98 Carbon Dioxide (22 - 30 mmol/L) 24 Anion Gap (5 - 16) 8 BUN (9 - 20 mg/dL) 49 H Creatinine (0.7 - 1.2 mg/dL) 4.6 H Estimated GFR (>60 ml/min) 13 L BUN/Creatinine Ratio (7 - 25 %) 10.7 Coagulation PT (9.4 - 12.5 SEC) 30.0 H INR (0.90 - 1.17) 2.89 H Hematology CBC w Diff NO MAN DIFF REQ WBC (4.8 - 10.8 /CUMM) 12.2 H RBC (4.70 - 6.10 /CUMM) 3.31 L Hgb (14.0 - 18.0 G/DL) 9.3 L Hct (42 - 52 %) 30.1 L MCV (80.0 - 94.0 FL) 90.9 MCH (27.0 - 31.0 PG) 28.2 RDW (11.5 - 14.5 %) 21.1 H Plt Count (130 - 400 /CUMM) 129 L MPV (7.4 - 10.4 FL) 9.2 Gran % (42.2 - 75.2 %) 92.7 H Lymphocytes % (20.5 - 51.1 %) 3.2 L Monocytes % (1.7 - 9.3 %) 3.9 Eosinophils % (0 - 5 %) 0.2 Basophils % (0.0 - 2.0 %) 0 L Absolute Granulocytes (1.4 - 6.5 /CUMM) 11.3 H Absolute Lymphocytes (1.2 - 3.4 /CUMM) 0.4 L Absolute Monocytes (0.10 - 0.60 /CUMM) 0.5 Absolute Eosinophils (0.0 - 0.7 /CUMM) 0 Absolute Basophils (0.0 - 0.2 /CUMM) 0 PUBS MCHC (33.0 - 37.0 G/DL) 31.0 L Last 24 Hours of Satnam Results: No recent cultures Assessment/Plan Impression: Stable with temperatures normal (on steroids) but white blood cell count increased, possibly secondary to steroids, on Augmentin Day 4 of treatment for possible pneumonia, with no significant change in his respiratory symptoms on antibiotics. His left upper extremity inflammation persists now 15 days status post creation of the AV fistula, with a small collection seen on ultrasound, possibly representing a seroma or hematoma. Have discussed with vascular surgery who does not feel that aspiration of this collection is indicated at this time. He is now 13 days status post transverse colectomy for mesenteric ischemia/gangrenous transverse colon. Suggestion: 1. Continue elevation and Dilan wraps to the left upper extremity 2. Discontinue Augmentin in the a.m. and follow off antibiotics
[2017-02-10 14:13] VITALS: BP 120/72
--- NOTE | 2017-02-10 14:53 | NUR ---
1230- PT RETURNED TO FLOOR FROM DIALYSIS. REPORT REC'D FROM [facility] PATROL DIRECTOR PATTY. PT HAD 900 ML TAKEN OFF. L ARM MATURING FISTULA WITH +2 EDEMA AND + BRUIT/THRILL. VSS.
--- NOTE | 2017-02-10 20:33 | NUR ---
ARM CIRCUMFERENCE UPPER: 37 CM LOWER: 33.5 CM
[2017-02-10 22:49] VITALS: BP 136/50
[2017-02-11 06:30] VITALS: BP 112/68
[2017-02-11 08:10] LABS: ABSOLUTE BASOPHIL COUNT 0 /CUMM (0.0-0.2); ABSOLUTE EOSINOPHIL COUNT 0 /CUMM (0.0-0.7); ABSOLUTE GRANULOCYTE CT 13.8 /CUMM (1.4-6.5); ABSOLUTE LYMPH COUNT 0.8 /CUMM (1.2-3.4); ABSOLUTE MONOCYTE COUNT 0.8 /CUMM (0.10-0.60); BASOPHIL % 0 % (0.0-2.0); EOSINOPHIL % 0.2 % (0-5); GRANULOCYTE % 89.5 % (42.2-75.2); HEMATOCRIT 32.2 % (42-52); MEAN CORPUSCULAR HGB 28.6 PG (27.0-31.0); MEAN CORPUSCULAR HGB CONC 31.3 G/DL (33.0-37.0); MEAN CORPUSCULAR VOLUME 91.5 FL (80.0-94.0); PLATELET COUNT 139 /CUMM (130-400); RBC DISTRIBUTION WIDTH 20.8 % (11.5-14.5); RED BLOOD CELL CT 3.52 /CUMM (4.70-6.10); WHITE BLOOD CELL COUNT 15.4 /CUMM (4.8-10.8)
[2017-02-11 08:31] LABS: PT 28.4 SEC (9.4-12.5)
--- NOTE | 2017-02-11 09:20 | PN- Housestaff ---
[address],[place] 02/11/17 0919: Subjective Follow-up For: Ischemic colitis status post surgical internvention Hemodialysis Left arm swelling Subjective: Afebrile, stable, WBCs increased to 15 today. Yesterday patient colostomy bag fell while he was ambulating. Patient has no current complaints. He still has mild cough, but saturating well on room air. Skin waiting for safe discharge. Review of Systems Constitutional: Reports: no symptoms. Objective Last 24 Hrs of Vital Signs/I&O Vital Signs Date Time Temp Pulse Resp B/P Pulse O2 O2 Flow FiO2 Ox Delivery Rate 02/11 0829 96 Room Air 02/11 08 Room Air 02/11 0630 97.9 82 20 112/68 94 Room Air 02/11 0300 93 Room Air 02/11 0000 Room Air 02/10 2249 98.1 86 20 136/50 95 02/10 1622 94 Room Air 02/10 1413 98.0 97 20 120/72 94 02/10 1251 94 Room Air Room Air Intake & Output 02/11 1600 02/11 0800 02/11 0000 Intake Total 100 100 Output Total 275 125 Balance -175 -25 Intake, Oral 100 100 Output, Stool 150 Output, Urine 125 125 Patient 85.417 kg Weight Physical Exam General Appearance: Alert, Oriented X3, Cooperative, No Acute Distress Skin: No Rashes HEENT: Atraumatic, PERRLA, EOMI, Mucous Membr. moist/pink Cardiovascular: Regular Rate, Normal S1, Normal S2, No Murmurs Lungs: rhonchi and mild wheezing over both lungs Abdomen: Soft, No Tenderness, colostomy bag filled with brown nonbloody watery stool. Left MT colectomy back., midline surgical incision with bre in place , no erythema,swelling or tenderness swelling Neurological: Normal Gait, Normal Speech Extremities: No Clubbing, No Cyanosis, trace lower extremity edema bilaterally, left upper extremity swelling,left arm circumference is down from 34 to 32 cm left forearm swelling is down from 31 to 26 cm Current Medications: Current Medications Sig/Johnna Start time Last Medication Dose Route Stop Time Status Admin Acetaminophen 650 MG Q4P PRN 01/31 1100 AC 02/05 PO 0113 Albuterol Sulfate 2 PUF Q4P PRN 02/06 0800 AC 02/06 INH 1313 Albuterol Sulfate 3 ML EVERY 4 HRS/AWAKE 02/05 1600 AC 02/11 INH 0824 Amoxicillin/ 500 MG 5PM 02/09 1700 DC 02/10 Clavulanate Potassium PO 02/10 1701 1701 Calcitriol 0.25 MCG MoWeFr PRN 01/30 0815 IV Diclofenac Sodium 1 MAI 4 TIMES/DAY 02/05 1400 AC 02/09 TOP 2253 Epoetin Guzman 4,000 UNIT MoWeFr PRN 01/30 0815 AC IV Furosemide 80 MG DAILY 02/08 1138 AC 02/11 PO 0838 Insulin Aspart 0 AT BEDTIME 02/01 2200 AC 02/10 SC 2143 Insulin Aspart 0 TIDAC 02/01 1200 AC 02/11 SC 1217 Pantoprazole Sodium 40 MG DAILY 01/28 1027 AC 02/08 IV 1407 Patient Medication 1 ED .STK-MED ONE 02/10 1433 TX Teaching ED 02/10 1434 Prednisone 40 MG DAILY 02/06 1616 TX 02/10 PO 1250 Sodium Chloride 2 SPRAY Q4P PRN 01/31 0430 02/05 CHULA 2133 Trazodone HCl 50 MG AT BEDTIME 01/30 2200 AC 02/10 PO 2143 Warfarin Sodium 5 MG COUMADIN 1700 ONE 02/10 1700 DC 02/10 PO 02/10 1701 1702 Last 24 Hrs of Lab/Satnam Results Last 24 Hrs of Labs/Mics: Laboratory Tests 02/11/17 0700: Anion Gap 11, Estimated GFR 20 L, BUN/Creatinine Ratio 12.6, PT 28.4 H, INR 2.73 H, CBC w Diff MAN DIFF ORDERED, RBC 3.52 L, MCV 91.5, MCH 28.6, RDW 20.8 H, MPV 9.0, Gran % 89.5 H, Lymphocytes % 4.9 L, Monocytes % 5.4, Eosinophils % 0.2, Basophils % 0 L, Absolute Granulocytes 13.8 H, Segmented Neutrophils 82 H, Band Neutrophils 4, Absolute Lymphocytes 0.8 L, Lymphocytes 5 L, Monocytes 6, Absolute Monocytes 0.8 H, Absolute Eosinophils 0, Absolute Basophils 0, Metamyelocytes 3 H, Platelet Estimate VERIFIED BY SMEAR, Polychromasia 1+, Poikilocytosis 1+, Anisocytosis 1+, Ovalocytes 1+, PUBS MCHC 31.3 L Assessment/Plan Assessment: Plan # S/P exploratory laparotomy with transverse colectomy and end colostomy for ischemic bowel Stable and denies any current complain, colostomy is filled with brown nonbloody stool. Patient denies any current abdominal pain, nausea, or vomiting. * Bre supposed to be removed on last Monday as per surgery * Stable we will follow surgical recommendations * We will send for C. difficile as the stool looks more watery than yesterday and WBCs increased to 15. # Left upper extremity swelling sp AV fistula Left arm still swollen, patient has left AV fistula on the left arm that was recently placed. This swelling was evaluated by vascular recently and they recommended arm elevation, however patient left arm swelling did not improve. Venous Doppler excluded DVTs. Arterial Doppler: 3.3 cm hypoechoic focus superior to the incision site is suggestive of a hematoma or seroma. Clinical correlation recommended. I spoke to vascular surgery service yesterday to comment on the arterial Doppler results, and to provide us with further recommendation. left arm circumference yesterdasy was 34cm arm and 31.5cm on forearm. surgery recommending no interventions. Vascular saw him 2 days ago and recommended no interventions, but need to follow was an outpatient. * Continue arm elevation. * We will instruct patient to follow-up with vascular as an outpatient. # ESRD on Dialysis MWF * Nephro on board * We will hold antihypertensives on the morning of dialysis. * We continue Lasix 80 mg daily as per nephrology * As per nephrology has outpatient seat at [facility] post discharge # Hx of COPD Succesfully extubated on day 0 post surgery. He has Previous history of MRSA and Pseudomonas in the lower respiratory tract. Special Librarian Dr. Perry is on board. 5 days ago patient had leukocytosis with worsening of his dyspnea, chest x-ray that time was suggestive of pneumonia, patient was initially started on IV Unasyn and steroid then switch to Augmentin. Today is his last day 5 days course of antibiotic and 5 days course of steroid. * cont TRC/Nebs * Watch of antibiotic and steroid # Left renal obstruction Asymptomatic obstructed left kidney due to UPJ stone. Risk of surgery for stone removal/stent without sepsis outweighs benefits for this ESRD-dialysis pt. Urology consulted, Dr. Elise. * NTD for now #Anemia most likely 2/2 ESRD * H&h low but stable, cont' monitoring #History of Afib INR today is 2.8 * We will continue Coumadin 5 mg daily * We will dose Coumadin daily # Diabetes mellitus * ISS, finger stick glucose Diet: Renal dialysis diet DVT ppx: Warfarin FULL CODE Problem List: 1. COPD 2. Hx laparoscopic cholecystectomy 3. S/P colectomy 4. End-stage renal disease on hemodialysis Pain Ratin Pain Location: na Pain Goal: Remain pain free Pain Plan: ee A&P Tomorrow's Labs & Rationales: cbc PHUONG SANDERS MD 02/11/17 1057: Attending MD Review Statement Attending Statement Attending MD Statement: examined this patient, discuss w/resident/PA/CONCRETE SCULPTOR, agreed w/resident/PA/CONCRETE SCULPTOR, reviewed EMR data (avail), discussed with nursing, amended to note Attending Assessment/Plan: patient seen and examined. Resting comfortably and not in any distress. He reports that his colostomy bag fell off yesterday. It was replaced by the nursing staff. Reports good appetite. Denies abdominal pain. On examination colostomy bag in place. Healthy stoma. He has left upper extremity swelling. According to house staff taking care of the patient swelling is decreasing in size. His bruit palpated over the AV fistula. Extremity is nontender. He has pitting edema of the hand. Radial pulse is palpable. Recommendations: -Continue monitoring of antibiotic therapy is recommended by the ID service. -Awaiting placement to nursing home facility
--- NOTE | 2017-02-11 12:15 | PN- Pulmonary ---
Subjective HPI/Critical Care Issues: Patient seen and examined this morning. He is able to ambulate without oxygen and feels much better overall he remains slightly congested but now is off prednisone and antibiotics. His left extremity edema consistently persists however somewhat improved today. Objective Current Medications: Current Medications Sig/Johnna Start time Last Medication Dose Route Stop Time Status Admin Acetaminophen 650 MG Q4P PRN 01/31 1100 AC 02/05 PO 0113 Albuterol Sulfate 2 PUF Q4P PRN 02/06 0800 AC 02/06 INH 1313 Albuterol Sulfate 3 ML EVERY 4 HRS/AWAKE 02/05 1600 AC 02/11 INH 0824 Amoxicillin/ 500 MG 5PM 02/09 1700 DC 02/10 Clavulanate Potassium PO 02/10 1701 1701 Calcitriol 0.25 MCG MoWeFr PRN 01/30 0815 AC IV Diclofenac Sodium 1 MAI 4 TIMES/DAY 02/05 1400 AC 02/09 TOP 2253 Epoetin Guzman 4,000 UNIT MoWeFr PRN 01/30 0815 AC IV Furosemide 80 MG DAILY 02/08 1138 AC 02/11 PO 0838 Insulin Aspart 0 AT BEDTIME 02/01 2200 AC 02/10 SC 2143 Insulin Aspart 0 TIDAC 02/01 1200 AC 02/11 SC 0837 Pantoprazole Sodium 40 MG DAILY 01/28 1027 AC 02/08 IV 1407 Patient Medication 1 ED .STK-MED ONE 02/10 1433 IN Teaching ED 02/10 1434 Prednisone 40 MG DAILY 02/06 1616 DC 02/10 PO 1250 Sodium Chloride 2 SPRAY Q4P PRN 01/31 0430 AC 02/05 CHULA 2133 Trazodone HCl 50 MG AT BEDTIME 01/30 2200 AC 02/10 PO 2143 Warfarin Sodium 5 MG COUMADIN 1700 ONE 02/10 1700 DC 02/10 PO 02/10 1701 1702 Vital Signs & I&O Last 24 Hrs of Vitals and I&O: Vital Signs Date Time Temp Pulse Resp B/P Pulse O2 O2 Flow FiO2 Ox Delivery Rate 02/11 08 96 Room Air 02/11 0800 Room Air 02/11 0630 97.9 82 20 112/68 94 Room Air 02/11 0300 93 Room Air 02/11 0000 Room Air 02/10 2249 98.1 86 20 136/50 95 02/10 1622 94 Room Air 02/10 1413 98.0 97 20 120/72 94 02/10 1251 94 Room Air Room Air Intake & Output 02/11 1600 02/11 0800 02/11 0000 Intake Total 100 100 Output Total 275 125 Balance -175 -25 Intake, Oral 100 100 Output, Stool 150 Output, Urine 125 125 Patient 188 lb Weight Exam Other Physical Findings: gen awake and alert heent ncat cvs s1, s2 lungs rare bibasilar rhonchi abd soft, colostomy ext left arm swelling Results Last 24 Hrs of Lab Results: Laboratory Tests 02/11/17 0700: Anion Gap 11, Estimated GFR 20 L, BUN/Creatinine Ratio 12.6, PT 28.4 H, INR 2.73 H, CBC w Diff MAN DIFF ORDERED, RBC 3.52 L, MCV 91.5, MCH 28.6, RDW 20.8 H, MPV 9.0, Gran % 89.5 H, Lymphocytes % 4.9 L, Monocytes % 5.4, Eosinophils % 0.2, Basophils % 0 L, Absolute Granulocytes 13.8 H, Segmented Neutrophils 82 H, Band Neutrophils 4, Absolute Lymphocytes 0.8 L, Lymphocytes 5 L, Monocytes 6, Absolute Monocytes 0.8 H, Absolute Eosinophils 0, Absolute Basophils 0, Metamyelocytes 3 H, Platelet Estimate VERIFIED BY SMEAR, Polychromasia 1+, Poikilocytosis 1+, Anisocytosis 1+, Ovalocytes 1+, PUBS MCHC 31.3 L Impression/Plan Impression/Plan Impression/Plan: Impression 72 year old man * s/p exp lap & transverse colectomy/colostomy for bowel ischemia * esrd on hd * COPD with a chronic cough * chronic anemia secondary to ESRD and previous GI bleed * a.fib hx * DM * left arm swelling Plan - off prednisone and antibiotics - left arm swelling per primary team - f/u surgery, nephrology, Abx per ID - HD, diuresis per nephrolgoy - anticoagulation for a.fib - trc/nebs DVT prophylaxis at all times Will sign off, call with any questions or issues
[2017-02-11 15:10] VITALS: BP 134/58
[2017-02-11 23:46] VITALS: BP 138/60
[2017-02-12 07:18] VITALS: BP 113/50
[2017-02-12 08:43] LABS: ABSOLUTE BASOPHIL COUNT 0 /CUMM (0.0-0.2); ABSOLUTE EOSINOPHIL COUNT 0.2 /CUMM (0.0-0.7); BASOPHIL % 0.3 % (0.0-2.0); EOSINOPHIL % 1.7 % (0-5); GRANULOCYTE % 83.4 % (42.2-75.2); HEMATOCRIT 32.5 % (42-52); MEAN CORPUSCULAR HGB 28.3 PG (27.0-31.0); MEAN CORPUSCULAR HGB CONC 31.2 G/DL (33.0-37.0); MEAN CORPUSCULAR VOLUME 90.5 FL (80.0-94.0); MEAN PLATELET VOLUME 8.7 FL (7.4-10.4); PLATELET COUNT 144 /CUMM (130-400); PT 29.3 SEC (9.4-12.5); RBC DISTRIBUTION WIDTH 21.2 % (11.5-14.5); RED BLOOD CELL CT 3.59 /CUMM (4.70-6.10); WHITE BLOOD CELL COUNT 12.8 /CUMM (4.8-10.8)
[2017-02-12 08:48] LABS: ABSOLUTE GRANULOCYTE CT 10.7 /CUMM (1.4-6.5); ABSOLUTE LYMPH COUNT 1.1 /CUMM (1.2-3.4); ABSOLUTE MONOCYTE COUNT 0.8 /CUMM (0.10-0.60)
--- NOTE | 2017-02-12 08:49 | PN- Housestaff ---
[address],[place] 02/12/17 0849: Subjective Follow-up For: Ischemic colitis Hemodialysis Subjective: patient is seen and examined while sitting comfortable on his recliner. He reports that his hand swelling is relatively better with decreased pain and less swelling. He does not endorse any acute complaints including fever, chills, nausea, vomiting, abdominal pain, chest pain, palpitation, shortness of breath, dizziness, musculoskeletal pain, or dysuria. No acute overnight event reported by nursing staff. Review of Systems Constitutional: Reports: no symptoms. Objective Last 24 Hrs of Vital Signs/I&O Vital Signs Date Time Temp Pulse Resp B/P Pulse O2 O2 Flow FiO2 Ox Delivery Rate 02/12 0831 95 Room Air Room Air 02/12 0800 Room Air 02/12 0718 97.9 76 18 113/50 94 Room Air 02/12 0217 Room Air 02/12 0000 Room Air 02/11 2346 97.8 79 20 138/60 94 Room Air 02/11 1750 96 Room Air 02/11 1655 Room Air 02/11 1510 97.8 78 20 134/58 94 Intake & Output 02/12 1600 02/12 0800 02/12 0000 Intake Total 480 480 Output Total 100 Balance 480 380 Intake, Oral 480 480 Output, Stool 100 Patient 86.636 kg Weight Physical Exam General Appearance: Alert, Oriented X3, Cooperative Other Physical Findings: Skin: No Rashes HEENT: Atraumatic, PERRLA, EOMI, Mucous Membr. moist/pink Cardiovascular: Regular Rate, Normal S1, Normal S2, No Murmurs Lungs: rhonchi and mild wheezing over both lungs Abdomen: Soft, No Tenderness, colostomy bag filled with brown nonbloody watery stool. Left MT colectomy back., midline surgical incision with chung in place , no erythema,swelling or tenderness swelling Neurological: Normal Gait, Normal Speech Extremities: No Clubbing, No Cyanosis, trace lower extremity edema bilaterally, left upper extremity swelling,left arm circumference is down from 34 to 32 cm left forearm swelling is down from 31 to 26 cm Assessment/Plan Assessment: Plan # S/P exploratory laparotomy with transverse colectomy and end colostomy for ischemic bowel Stable and denies any current complain, colostomy bag was clear, had just been emptied woth reported formed stools. Patient denies any current abdominal pain, nausea, or vomiting. * Stable we will follow surgical recommendations * Awaiting C. difficile results due to recent episodes of loose stools. # Left upper extremity swelling sp AV fistula Relatively resolving compared to previous days.. Continue arm elevation and patient will follow-up with vascular on outpatient basis (vascular is aware and following) # ESRD on Dialysis MWF * Nephro on board * We will hold antihypertensives on the morning of dialysis. * We continue Lasix 80 mg daily as per nephrology * As per nephrology has outpatient seat at [facility] post discharge # Hx of COPD Succesfully extubated on day 0 post surgery. He has Previous history of MRSA and Pseudomonas in the lower respiratory tract. 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 5 days ago patient had leukocytosis with worsening of his dyspnea, chest x-ray that time was suggestive of pneumonia, patient was initially started on IV Unasyn and steroid then switch to Augmentin. Today is his last day 5 days course of antibiotic and 5 days course of steroid. * cont TRC/Nebs * Watch of antibiotic and steroid # Left renal obstruction Asymptomatic obstructed left kidney due to UPJ stone. Risk of surgery for stone removal/stent without sepsis outweighs benefits for this ESRD-dialysis pt. Urology consulted, Dr. Elise. * NTD for now #Anemia most likely 2/2 ESRD * H&h low but stable, cont' monitoring #History of Afib INR today is 2.8 * We will continue Coumadin 5 mg daily * We will dose Coumadin daily # Diabetes mellitus * ISS, finger stick glucose Problem List: 1. Mesenteric ischemia Pain Ratin Pain Location: none Pain Goal: Remain pain free Pain Plan: per pain pathway Tomorrow's Labs & Rationales: none-possible discharge/dialysis patient. PHUONG SANDERS MD 02/12/17 1148: Attending MD Review Statement Attending Statement Attending MD Statement: examined this patient, discuss w/resident/PA/RECORDER HELPER GRAVITY PROSPECTING, agreed w/resident/PA/RECORDER HELPER GRAVITY PROSPECTING, reviewed EMR data (avail), discussed with nursing, amended to note Attending Assessment/Plan: Patient seen and examined. Sitting down comfortably and not in any distress. No issues overnight reported by nursing staff. Denies chest pain. Reports mild productive cough. On auscultation he has mild rhonchi bilaterally. Colostomy bonsai in place and intact. Left upper extremity swelling persists. Doppler of the upper extremity shows no evidence of thrombosis. He does have a hyper echoic focus over the AV fistula likely representing seroma or hematoma. The vascular surgery service is aware. Extremity shows no evidence of ischemia. It is nontender. Laboratory data continues to show leukocytosis although improved from yesterday. Recommendations: -He is dialyzed through his Ilya catheter. -The vascular surgery service is aware of his left upper extremity swelling and imaging findings. Recommendations are for outpatient follow-up. Continue elevation of the left upper extremity. -Monitor laboratory data every other day for resolution of his leukocytosis. Afebrile ruled recommend panculture and reconsulting the ID service. -Continue bronchodilator regimen.
--- NOTE | 2017-02-12 11:45 | NUR ---
ARM CIRCUMFERENCE LUE UPPER ARM: 39.6 CM LOWER ARM: 30 CM MEASURED AT WIDEST POINT OF EACH.
--- NOTE | 2017-02-12 12:24 | PN- Vascular Surgery ---
Surgical Brief Attending Note Brief Attending Note: VASCULAR ATTENDING NOTE: Pt. seen and examined today. Patient now admitted with ischemic bowel status post bowel resection and has a history of a left upper extremity AV fistula. No major complaints. Physical exam: Afebrile/vital signs are stable. Left arm is clean dry and intact. No evidence of infection. Continue current care Follow-up as an outpatient with Dr. Jackson Left upper extremity elevation for swelling
[2017-02-12 14:16] VITALS: BP 122/64
--- NOTE | 2017-02-12 18:42 | NUR ---
1800- DR. BLANTON NOTIFIED PT WITH BREATH SOUNDS MORE DIMINISHED ON THE L THAN THE RIGHT. WHEEZY BILATERAL BASES. ALSO NOTIFIED LUE WITH SCANT WHEEPING BELOW THE ELBOW. RESPIRATORY CALLED FOR BREATHING TREAMENT. NO NEW ORDERS AT THIS TIME.
[2017-02-12 23:23] VITALS: BP 120/60
[2017-02-13 06:52] VITALS: BP 128/62
--- NOTE | 2017-02-13 07:31 | PN- Housestaff ---
[address],[place] 02/13/17 0731: Subjective Follow-up For: -Ischemic colitis status post surgical internvention -Hemodialysis -Left arm swelling Subjective: Afebrile, stable, WBCs decreased to 11. He still has mild cough (baseline), but saturating well on room air. He denies any current complaints. Skin waiting for safe discharge. Review of Systems Constitutional: Reports: no symptoms. Objective Last 24 Hrs of Vital Signs/I&O Vital Signs Date Time Temp Pulse Resp B/P Pulse O2 O2 Flow FiO2 Ox Delivery Rate 02/13 1600 97 Room Air Room Air 02/13 1434 97.7 69 20 130/60 93 02/13 1220 97.8 82 20 126/60 93 Room Air 02/13 0749 94 Room Air 02/13 0652 97.7 84 22 128/62 91 Room Air 02/13 0000 Nasal 2.0L Cannula 02/12 2323 97.7 78 20 120/60 97 Room Air Intake & Output 02/13 1600 02/13 0800 02/13 0000 Intake Total 300 Output Total 150 450 Balance -150 -150 Intake, Oral 300 Output, Stool 275 Output, Urine 150 175 Patient 84.822 kg 86.183 kg Weight Physical Exam General Appearance: Alert, Oriented X3, Cooperative, No Acute Distress Skin: No Rashes HEENT: Atraumatic, PERRLA, EOMI, Mucous Membr. moist/pink Cardiovascular: Normal S1, Normal S2, No Murmurs Lungs: wheezing and crackles all over bilaterally Abdomen: Normal Bowel Sounds, Soft, No Tenderness Neurological: Normal Speech Extremities: b/l LE +2 edema Current Medications: Current Medications Sig/Johnna Start time Last Medication Dose Route Stop Time Status Admin Acetaminophen 650 MG Q4P PRN 01/31 1100 AC 02/05 PO 0113 Albuterol Sulfate 2 PUF Q4P PRN 02/06 0800 AC 02/06 INH 1313 Albuterol Sulfate 3 ML EVERY 4 HRS/AWAKE 02/05 1600 AC 02/13 INH 1600 Calcitriol 0.25 MCG MoWeFr PRN 01/30 0815 AC IV Diclofenac Sodium 1 MAI 4 TIMES/DAY 02/05 1400 AC 02/13 TOP 1157 Epoetin Guzman 4,000 UNIT MoWeFr PRN 01/30 0815 AC IV Furosemide 80 MG DAILY 02/08 1138 AC 02/13 PO 1156 Insulin Aspart 0 AT BEDTIME 02/01 2200 AC 02/12 SC 212 Insulin Aspart 0 TIDAC 02/01 1200 AC 02/13 SC 1158 Omeprazole 40 MG DAILY AC 02/12 1200 AC 02/13 PO 0645 Sodium Chloride 2 SPRAY Q4P PRN 01/31 0430 AC 02/05 CHULA 2133 Trazodone HCl 50 MG AT BEDTIME 01/30 220 AC 02/12 PO 212 Warfarin Sodium 5 MG COUMADIN 1700 ONE 02/13 1700 AC PO 02/13 170 Warfarin Sodium 2.5 MG COUMADIN 1700 ONE 02/12 1722 DC 02/12 PO 02/12 172 1953 Last 24 Hrs of Lab/Satnam Results Last 24 Hrs of Labs/Mics: Laboratory Tests 02/13/17 0804: Calcium Cancelled, Hep Bs Antigen Cancelled, Hep Bs Antibody Cancelled 02/13/17 0740: Anion Gap 11, Estimated GFR 11 L, BUN/Creatinine Ratio 12.8, Calcium 8.8, PT 26.2 H, INR 2.52 H, CBC w Diff MAN DIFF ORDERED, RBC 3.35 L, MCV 89.8, MCH 28.8, RDW 21.4 H, MPV 8.8, Gran % 83.2 H, Lymphocytes % 8.1 L, Monocytes % 6.1, Eosinophils % 2.5, Basophils % 0.1, Absolute Granulocytes 9.3 H, Segmented Neutrophils 72, Band Neutrophils 2, Absolute Lymphocytes 0.9 L, Lymphocytes 10 L, Monocytes 6, Absolute Monocytes 0.7 H, Eosinophils 5, Absolute Eosinophils 0.3, Absolute Basophils 0, Metamyelocytes 2 H, Myelocytes 3 H, Platelet Estimate VERIFIED BY SMEAR, Anisocytosis 1+, Ovalocytes 1+, PUBS MCHC 32.0 L, Hep Bs Antigen NONREACTIVE, Hep Bs Antibody NONREACTIVE Assessment/Plan Assessment: Plan # S/P exploratory laparotomy with transverse colectomy and end colostomy for ischemic bowel Stable and denies any current complain, colostomy bag was clear, had just been emptied woth reported formed stools. Patient denies any current abdominal pain, nausea, or vomiting. * Stable we will follow surgical recommendations # Left upper extremity swelling sp AV fistula Relatively resolving compared to previous days.. Continue arm elevation and patient will follow-up with vascular on outpatient basis, vascular is aware # ESRD on Dialysis MWF * Nephro on board * We will hold antihypertensives on the morning of dialysis. * We continue Lasix 80 mg daily as per nephrology * As per nephrology has outpatient seat at [facility] post discharge # Hx of COPD Succesfully extubated on day 0 post surgery. He has Previous history of MRSA and Pseudomonas in the lower respiratory tract. Drill Hand Dr. Perry is on board. 5 days ago patient had leukocytosis with worsening of his dyspnea, chest x-ray that time was suggestive of pneumonia, patient was initially started on IV Unasyn and steroid then switch to Augmentin. He received 5 days course of antibiotic and 5 days course of steroid. * cont TRC/Nebs * Watch of antibiotic and steroid # Left renal obstruction Asymptomatic obstructed left kidney due to UPJ stone. Risk of surgery for stone removal/stent without sepsis outweighs benefits for this ESRD-dialysis pt. Urology consulted, Dr. Elise. * NTD for now #Anemia most likely 2/2 ESRD * H&h low but stable, cont' monitoring #History of Afib INR today is 2.5 * We will continue Coumadin 5 mg daily * We will dose Coumadin daily # Diabetes mellitus * ISS, finger stick glucose Renal dialysis diet DVT prophylaxis on warfarin Full code Problem List: 1. End-stage renal disease on hemodialysis Pain Ratin Pain Location: na Pain Goal: Remain pain free Pain Plan: See A&P Tomorrow's Labs & Rationales: INR HERMINIA LINDO 02/13/17 1141: Attending MD Review Statement Attending Statement Attending MD Statement: examined this patient, discuss w/resident/PA/YIELD ENGINEER, agreed w/resident/PA/YIELD ENGINEER, discussed with family, reviewed EMR data (avail), discussed with nursing, discussed with case mgmt, reviewed images Attending Assessment/Plan: 72M COPD, recent worsening renal failure now with end-stage renal disease on hemodialysis, paroxysmal atrial fibrillation who is on anticoagulation, chronic heart failure with preserved ejection fraction LVEF of 50%, 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 Plan - ESRD on dialysis, plan as per nephrology, dialysis. - Continue Coumadin INR therapeutic - Continue home medications - dyspnea at rest, repeat chest xray suggestive of right sided worsening infiltrates f/u ID. started on unasyn and steroid, f/u pulmonary. oxygen supplementation as needed, encouraged incentive spirometry. complete steroid x 5 days total. changed i/v abx to PO abx. abx course as per ID. - left upper extremity edema USG negative for DVT, USG arterial without any significant stenosis but hematoma vs seroma. vascular surgery no acute intervention needed. f/u o/p. d/c planning to [facility]. arranged HD as o/p, f/u nephrology in 1 week, vascular surgery in 2-3 weeks, PCP in 1 week.
[2017-02-13 09:01] LABS: ABSOLUTE BASOPHIL COUNT 0 /CUMM (0.0-0.2); ABSOLUTE EOSINOPHIL COUNT 0.3 /CUMM (0.0-0.7); ABSOLUTE GRANULOCYTE CT 9.3 /CUMM (1.4-6.5); ABSOLUTE LYMPH COUNT 0.9 /CUMM (1.2-3.4); ABSOLUTE MONOCYTE COUNT 0.7 /CUMM (0.10-0.60); BASOPHIL % 0.1 % (0.0-2.0); EOSINOPHIL % 2.5 % (0-5); GRANULOCYTE % 83.2 % (42.2-75.2); HEMATOCRIT 30.1 % (42-52); MEAN CORPUSCULAR HGB 28.8 PG (27.0-31.0); MEAN CORPUSCULAR VOLUME 89.8 FL (80.0-94.0); MEAN PLATELET VOLUME 8.8 FL (7.4-10.4); PLATELET COUNT 132 /CUMM (130-400); RBC DISTRIBUTION WIDTH 21.4 % (11.5-14.5); RED BLOOD CELL CT 3.35 /CUMM (4.70-6.10); WHITE BLOOD CELL COUNT 11.1 /CUMM (4.8-10.8)
[2017-02-13 09:08] LABS: PT 26.2 SEC (9.4-12.5)
--- NOTE | 2017-02-13 09:40 | PN- Nephrology ---
Assessment/Plan Assessment: 1. End-stage renal disease/chronic kidney disease stage V. Apparently he has been declining to have more than 2 L removed at a time. There is fluid overload. In fairness however, he is hospitalized now after an episode of hypotension or at least get ischemia postdialysis. His target weight had been 85 kg here. This is since he was admitted shortly thereafter with an problem with ischemic gut. It is of concern with regards to lowering his blood pressure. 2. Status post ischemic gut Suggestion: 1. Hemodialysis in progress today. Next dialysis will be planned for Monday 2. Await final disposition. Subjective Subjective: Patient seen with dialysis in progress. He offers no complaints aside from about which he does complain is his left upper extremity edema. This is where he had the aVF created. This would point toward central occlusion causing outflow issues. Objective Vital Signs and I&Os Vital Signs Date Time Temp Pulse Resp B/P Pulse O2 O2 Flow FiO2 Ox Delivery Rate 02/13 0749 94 Room Air 02/13 0652 97.7 84 22 128/62 91 Room Air 02/13 0000 Nasal 2.0L Cannula 02/12 2323 97.7 78 20 120/60 97 Room Air 02/12 1625 96 Room Air 02/12 1600 96 Nasal Cannula 02/12 1416 97.7 76 20 122/64 95 Intake & Output 02/13 1600 02/13 0400 02/12 1600 02/12 0400 02/11 1600 02/11 0400 Intake Total 300 960 480 580 100 Output Total 150 450 650 100 475 125 Balance -150 -150 310 380 105 -25 Intake, IV 0 Intake, Oral 300 960 480 580 100 Output, Stool 275 500 100 350 Output, Urine 150 175 150 125 125 Patient 190 lb 191 lb 188 lb Weight Physical Exam: General Appearance: well developed/nourished, intubated, obese Head: atraumatic Eyes: Bilateral: PERRL, EOMI. Neck: normal inspection, trachea mid line, right IJ Ilya catheter in place Respiratory: normal breath sounds, chest non-tender Cardiovascular: regular rate/rhythm, edema Peripheral Pulses: 2+ tibialis posterior (R), 2+ tibialis posterior (L), 2+ dorsalis pedis (R), 2+ dorsalis pedis (L) Gastrointestinal: ostomy and right upper quadrant. Extremities: normal inspection, he has both lower extremity and left upper extremity edema, left upper arm aVF with good bruit, Neurologic/Psych: Awake, alert and cooperative Skin: intact, no rash no jaundice Lymphatic: no anterior cervical alea Current Medications: Current Medications Sig/Johnna Start time Last Medication Dose Route Stop Time Status Admin Acetaminophen 650 MG Q4P PRN 01/31 1100 AC 02/05 PO 0113 Albuterol Sulfate 2 PUF Q4P PRN 02/06 0800 AC 02/06 INH 1313 Albuterol Sulfate 3 ML EVERY 4 HRS/AWAKE 02/05 1600 AC 02/13 INH 0747 Calcitriol 0.25 MCG MoWeFr PRN 01/30 0815 AC IV Diclofenac Sodium 1 MAI 4 TIMES/DAY 02/05 1400 AC 02/12 TOP 2126 Epoetin Guzman 4,000 UNIT MoWeFr PRN 01/30 0815 AC IV Furosemide 80 MG DAILY 02/08 1138 AC 02/12 PO 1010 Insulin Aspart 0 AT BEDTIME 02/01 2200 AC 02/12 SC 2122 Insulin Aspart 0 TIDAC 02/01 1200 AC 02/12 SC 1745 Omeprazole 40 MG DAILY AC 02/12 1200 AC 02/13 PO 0645 Pantoprazole Sodium 40 MG DAILY 01/28 1027 DC 02/08 IV 1407 Sodium Chloride 2 SPRAY Q4P PRN 01/31 0430 AC 02/05 CHULA 2133 Trazodone HCl 50 MG AT BEDTIME 01/30 2200 AC 02/12 PO 2122 Warfarin Sodium 2.5 MG COUMADIN 1700 ONE 02/12 1722 DC 02/12 PO 02/12 1723 1953 Results Pertinent Lab Results: Laboratory Tests 02/13 02/13 0804 0740 Chemistry Sodium Pending Potassium Pending Chloride Pending Carbon Dioxide Pending Anion Gap Pending BUN Pending Creatinine Pending BUN/Creatinine Ratio Pending Calcium Cancelled Pending Coagulation PT (9.4 - 12.5 SEC) 26.2 H INR (0.90 - 1.17) 2.52 H Hematology CBC w Diff MAN DIFF ORDERED WBC (4.8 - 10.8 /CUMM) 11.1 H RBC (4.70 - 6.10 /CUMM) 3.35 L Hgb (14.0 - 18.0 G/DL) 9.6 L Hct (42 - 52 %) 30.1 L MCV (80.0 - 94.0 FL) 89.8 MCH (27.0 - 31.0 PG) 28.8 RDW (11.5 - 14.5 %) 21.4 H Plt Count (130 - 400 /CUMM) 132 MPV (7.4 - 10.4 FL) 8.8 Gran % (42.2 - 75.2 %) 83.2 H Lymphocytes % (20.5 - 51.1 %) 8.1 L Monocytes % (1.7 - 9.3 %) 6.1 Eosinophils % (0 - 5 %) 2.5 Basophils % (0.0 - 2.0 %) 0.1 Absolute Granulocytes (1.4 - 6.5 /CUMM) 9.3 H Segmented Neutrophils (42.2 - 75.2 %) 72 Band Neutrophils (0.0 - 5.0 %) 2 Absolute Lymphocytes (1.2 - 3.4 /CUMM) 0.9 L Lymphocytes (20.5 - 51.1 %) 10 L Monocytes (1.7 - 9.3 %) 6 Absolute Monocytes (0.10 - 0.60 /CUMM) 0.7 H Eosinophils (0 - 5.0 %) 5 Absolute Eosinophils (0.0 - 0.7 /CUMM) 0.3 Absolute Basophils (0.0 - 0.2 /CUMM) 0 Metamyelocytes (0.0 - 1.0 %) 2 H Myelocytes (0 - 0 %) 3 H Platelet Estimate (ADEQUATE) VERIFIED BY SMEAR Anisocytosis 1+ Ovalocytes 1+ PUBS MCHC (33.0 - 37.0 G/DL) 32.0 L Serology Hep Bs Antigen Cancelled Pending Hep Bs Antibody Cancelled Pending 02/12 715 Chemistry Sodium (137 - 145 mmol/L) 133 L Potassium (3.5 - 5.1 mmol/L) 4.3 Chloride (98 - 107 mmol/L) 100 Carbon Dioxide (22 - 30 mmol/L) 24 Anion Gap (5 - 16) 10 BUN (9 - 20 mg/dL) 55 H Creatinine (0.7 - 1.2 mg/dL) 4.2 H Estimated GFR (>60 ml/min) 14 L BUN/Creatinine Ratio (7 - 25 %) 13.1 Coagulation PT (9.4 - 12.5 SEC) 29.3 H INR (0.90 - 1.17) 2.82 H Hematology CBC w Diff MAN DIFF ORDERED WBC (4.8 - 10.8 /CUMM) 12.8 H RBC (4.70 - 6.10 /CUMM) 3.59 L Hgb (14.0 - 18.0 G/DL) 10.1 L Hct (42 - 52 %) 32.5 L MCV (80.0 - 94.0 FL) 90.5 MCH (27.0 - 31.0 PG) 28.3 RDW (11.5 - 14.5 %) 21.2 H Plt Count (130 - 400 /CUMM) 144 MPV (7.4 - 10.4 FL) 8.7 Gran % (42.2 - 75.2 %) 83.4 H Lymphocytes % (20.5 - 51.1 %) 8.5 L Monocytes % (1.7 - 9.3 %) 6.1 Eosinophils % (0 - 5 %) 1.7 Basophils % (0.0 - 2.0 %) 0.3 Absolute Granulocytes (1.4 - 6.5 /CUMM) 10.7 H Segmented Neutrophils (42.2 - 75.2 %) 77 H Band Neutrophils (0.0 - 5.0 %) 1 Absolute Lymphocytes (1.2 - 3.4 /CUMM) 1.1 L Lymphocytes (20.5 - 51.1 %) 8 L Monocytes (1.7 - 9.3 %) 9 Absolute Monocytes (0.10 - 0.60 /CUMM) 0.8 H Eosinophils (0 - 5.0 %) 1 Absolute Eosinophils (0.0 - 0.7 /CUMM) 0.2 Absolute Basophils (0.0 - 0.2 /CUMM) 0 Metamyelocytes (0.0 - 1.0 %) 3 H Myelocytes (0 - 0 %) 1 H Platelet Estimate (ADEQUATE) VERIFIED BY SMEAR Polychromasia 1+ Poikilocytosis 1+ Anisocytosis 1+ Ovalocytes 1+ PUBS MCHC (33.0 - 37.0 G/DL) 31.2 L 04/08 0700 Chemistry Sodium (137 - 145 mmol/L) 134 L Potassium (3.5 - 5.1 mmol/L) 4.7 Chloride (98 - 107 mmol/L) 99 Carbon Dioxide (22 - 30 mmol/L) 24 Anion Gap (5 - 16) 11 BUN (9 - 20 mg/dL) 39 H Creatinine (0.7 - 1.2 mg/dL) 3.1 H Estimated GFR (>60 ml/min) 20 L BUN/Creatinine Ratio (7 - 25 %) 12.6 Coagulation PT (9.4 - 12.5 SEC) 28.4 H INR (0.90 - 1.17) 2.73 H Hematology CBC w Diff MAN DIFF ORDERED WBC (4.8 - 10.8 /CUMM) 15.4 H RBC (4.70 - 6.10 /CUMM) 3.52 L Hgb (14.0 - 18.0 G/DL) 10.1 L Hct (42 - 52 %) 32.2 L MCV (80.0 - 94.0 FL) 91.5 MCH (27.0 - 31.0 PG) 28.6 RDW (11.5 - 14.5 %) 20.8 H Plt Count (130 - 400 /CUMM) 139 MPV (7.4 - 10.4 FL) 9.0 Gran % (42.2 - 75.2 %) 89.5 H Lymphocytes % (20.5 - 51.1 %) 4.9 L Monocytes % (1.7 - 9.3 %) 5.4 Eosinophils % (0 - 5 %) 0.2 Basophils % (0.0 - 2.0 %) 0 L Absolute Granulocytes (1.4 - 6.5 /CUMM) 13.8 H Segmented Neutrophils (42.2 - 75.2 %) 82 H Band Neutrophils (0.0 - 5.0 %) 4 Absolute Lymphocytes (1.2 - 3.4 /CUMM) 0.8 L Lymphocytes (20.5 - 51.1 %) 5 L Monocytes (1.7 - 9.3 %) 6 Absolute Monocytes (0.10 - 0.60 /CUMM) 0.8 H Absolute Eosinophils (0.0 - 0.7 /CUMM) 0 Absolute Basophils (0.0 - 0.2 /CUMM) 0 Metamyelocytes (0.0 - 1.0 %) 3 H Platelet Estimate (ADEQUATE) VERIFIED BY SMEAR Polychromasia 1+ Poikilocytosis 1+ Anisocytosis 1+ Ovalocytes 1+ PUBS MCHC (33.0 - 37.0 G/DL) 31.3 L
[2017-02-13 12:20] VITALS: BP 126/60
--- NOTE | 2017-02-13 13:08 | NUR ---
ARM CIRCUMFERENCE: UPPER 30.6 CM, LOWER 30.2. PT STATES IT HAS BEEN WEEPING FLUIDS AND FEELS LESS STIFF TODAY.
[2017-02-13 14:34] VITALS: BP 130/60
--- NOTE | 2017-02-13 15:48 | NUR ---
ARM CIRUMFERENCE: UPPER 36.0 LOWER 30.2
--- NOTE | 2017-02-13 17:00 | NUR ---
PTS RADHA EDEMA NOTED TO BE +4, WEEPING AT THE LAC. ORDER PULLER EARNEST NOTIFIED & IN TO SEE PT. RADHA ELEVATED ON PILLOW. PT HAS +PULSES AND +CMS IN THAT ARM. NO NEW ORDERS. WILL CONTINUE TO MONITOR.
--- NOTE | 2017-02-13 20:26 | NUR ---
Continue to follow patients progress and work with him along with ACO RN and Apartment Maintenance Worker to resolve issue of co-pay responsibility. On Monday, 02/10 we discussed with patient the option and/or possibility of designating either POA or Voluntary Conservatorship. Patient verbalized understanding and said he would discuss with family friend, Vitaly. Today, Chacorta reports Vitaly is not able to accept responsibility, and Chacorta is feeling both unwell physically today and frustrated by his situation. Call received from PEDIATRIC REGISTERED NURSE at [facility]. She reports that an application for [employer] was submitted earlier this year and the application was denied as patient was over income. Patient not able to return home at this time. Follow and collaborate with case management.
[2017-02-13 22:50] VITALS: BP 130/40
[2017-02-14 06:21] VITALS: BP 130/62
--- NOTE | 2017-02-14 07:47 | PN- Housestaff ---
[address],[facility] 02/14/17 0747: Subjective Follow-up For: -Ischemic colitis status post surgical internvention -Hemodialysis -Left arm swelling Subjective: Afebrile, hemodynamically stable, no overnight events were reported. He is sitting on the recliner looks relaxed and comfortable. He denies any current complaints. Review of Systems Constitutional: Reports: no symptoms. Objective Last 24 Hrs of Vital Signs/I&O Vital Signs Date Time Temp Pulse Resp B/P Pulse O2 O2 Flow FiO2 Ox Delivery Rate 02/14 08 97 Room Air Room Air 02/14 0621 98.1 80 20 130/62 100 Room Air 02/14 0021 93 Room Air 02/13 2250 98.7 81 20 130/40 91 Room Air 02/13 1600 Room Air 02/13 1600 97 Room Air Room Air 02/13 1434 97.7 69 20 130/60 93 02/13 1220 97.8 82 20 126/60 93 Room Air Intake & Output 02/14 1600 02/14 0800 02/14 0000 Intake Total 300 700 Output Total 100 300 Balance 200 400 Intake, Oral 300 700 Number 1 Bowel Movements Output, Stool 300 Output, Urine 100 Patient 85.729 kg Weight Physical Exam General Appearance: Alert, Oriented X3, Cooperative, No Acute Distress Cardiovascular: Regular Rate, Normal S1, Normal S2 Lungs: mild rhonchi and wheezing over both lungs Abdomen: Soft, No Tenderness, list any bag is filled with brown, nonbloody and watery stool. Neurological: Normal Speech Extremities: No Clubbing, No Cyanosis, +2 bilateral lower extremity edema, left arm still swollen Current Medications: Current Medications Sig/Johnna Start time Last Medication Dose Route Stop Time Status Admin Acetaminophen 650 MG Q4P PRN 01/31 1100 AC 02/05 PO 0113 Albuterol Sulfate 2 PUF Q4P PRN 02/06 0800 AC 02/06 INH 1313 Albuterol Sulfate 3 ML EVERY 4 HRS/AWAKE 02/05 1600 AC 02/14 INH 0819 Calcitriol 0.25 MCG MoWeFr PRN 01/30 0815 AC IV Calcium Carbonate 500 MG ONCE ONE 02/13 1730 DC 02/13 PO 02/13 1731 1733 Diclofenac Sodium 1 MAI 4 TIMES/DAY 02/05 1400 AC 02/13 TOP 2132 Epoetin Guzman 4,000 UNIT MoWeFr PRN 01/30 0815 AC IV Furosemide 80 MG DAILY 02/08 1138 AC 02/14 PO 1033 Insulin Aspart 0 AT BEDTIME 02/01 2200 AC 02/12 SC 2122 Insulin Aspart 0 TIDAC 02/01 1200 AC 02/14 SC 0752 Omeprazole 40 MG DAILY AC 02/12 1200 AC 02/14 PO 0621 Sodium Chloride 2 SPRAY Q4P PRN 01/31 0430 AC 02/05 CHULA 2133 Trazodone HCl 50 MG AT BEDTIME 01/30 2200 AC 02/13 PO 2132 Warfarin Sodium 5 MG COUMADIN 1700 ONE 02/14 1700 AC PO 02/14 1701 Warfarin Sodium 5 MG COUMADIN 1700 ONE 02/13 1700 DC 02/13 PO 02/13 1701 1734 Last 24 Hrs of Lab/Satnam Results Last 24 Hrs of Labs/Mics: Laboratory Tests 02/14/17 0615: PT 23.3 H, INR 2.24 H Assessment/Plan Assessment: Plan # S/P exploratory laparotomy with transverse colectomy and end colostomy for ischemic bowel Stable and denies any current complain, colostomy bag was caitlin. Patient denies any current abdominal pain, nausea, or vomiting. * Stable we will follow surgical recommendations # Left upper extremity swelling sp AV fistula No change since yesterday. Continue arm elevation and patient will follow-up with vascular on outpatient basis, vascular is aware * Continue measure arm and forearm circumference daily. # ESRD on Dialysis MWF * Nephro on board * We will hold antihypertensives on the morning of dialysis. * We continue Lasix 80 mg daily as per nephrology * As per nephrology has outpatient seat at [facility] post discharge # Hx of COPD Succesfully extubated on day 0 post surgery. He has Previous history of MRSA and Pseudomonas in the lower respiratory tract. Repairer Maintenance Building Dr. Perry is on board. 5 days ago patient had leukocytosis with worsening of his dyspnea, chest x-ray that time was suggestive of pneumonia, patient was initially started on IV Unasyn and steroid then switch to Augmentin. He received 5 days course of antibiotic and 5 days course of steroid. * cont TRC/Nebs * Watch off antibiotic and steroid # Left renal obstruction Asymptomatic obstructed left kidney due to UPJ stone. Risk of surgery for stone removal/stent without sepsis outweighs benefits for this ESRD-dialysis pt. Urology consulted, Dr. Elise. * NTD for now #Anemia most likely 2/2 ESRD * H&h low but stable, cont' monitoring #History of Afib INR today is 2.24 * We will continue Coumadin 5 mg daily * We will dose Coumadin daily # Diabetes mellitus * ISS, finger stick glucose Renal dialysis diet DVT prophylaxis on warfarin Full code Problem List: 1. Surgically created abdominal mucous fistula 2. End-stage renal disease on hemodialysis Pain Ratin Pain Location: na Pain Goal: Remain pain free Pain Plan: See A&P Tomorrow's Labs & Rationales: INR does warfarin HERMINIA LINDO 02/14/17 1124: Attending MD Review Statement Attending Statement Attending MD Statement: examined this patient, discuss w/resident/PA/CRM MARKETING SPECIALIST, agreed w/resident/PA/CRM MARKETING SPECIALIST, discussed with family, reviewed EMR data (avail), discussed with nursing, discussed with case mgmt, reviewed images Attending Assessment/Plan: 72M COPD, recent worsening renal failure now with end-stage renal disease on hemodialysis, paroxysmal atrial fibrillation who is on anticoagulation, chronic heart failure with preserved ejection fraction LVEF of 50%, 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 Plan - ESRD on dialysis, plan as per nephrology, dialysis. - Continue Coumadin INR therapeutic - Continue home medications - dyspnea at rest, repeat chest xray suggestive of right sided worsening infiltrates cmpleted abx as per ID. - left upper extremity edema USG negative for DVT, USG arterial without any significant stenosis but hematoma vs seroma. vascular surgery no acute intervention needed. f/u o/p. d/c planning to [facility]. arranged HD as o/p, f/u nephrology in 1 week, vascular surgery in 2-3 weeks, PCP in 1 week
[2017-02-14 08:30] LABS: PT 23.3 SEC (9.4-12.5)
[2017-02-14 14:31] VITALS: BP 130/80
--- NOTE | 2017-02-14 16:17 | NUR ---
ARM MEASUREMENT LEFT LOWER: 33 CM LEFT UPPER: 36 CM
--- NOTE | 2017-02-14 19:40 | NUR ---
Call placed to Foreign Exchange Services Manager at [facility] to brainstorm with him possible solutions to patients co-pay situation. Message left and await return call.
[2017-02-14 22:27] VITALS: BP 130/60
[2017-02-15 06:43] VITALS: BP 124/56
--- NOTE | 2017-02-15 07:35 | NUR ---
PT TO DIALYSIS AT 0727. DID NOT GIVE INSULIN THIS MORNING, PT NOT EATING. WILL CHECK WHEN RETURNS TO FLOOR.
--- NOTE | 2017-02-15 07:36 | NUR ---
LEFT ARM CIRCUMFERENCE: LOWER ARM: 30.5 CM UPPER ARM: 35 CM
--- NOTE | 2017-02-15 07:59 | PN- Housestaff ---
[address],[facility] 02/15/17 0759: Subjective Follow-up For: -Ischemic colitis status post surgical internvention -Hemodialysis -Left arm swelling Subjective: Afebrile, hemodynamically stable, no overnight events were reported. He denies any current complaints. Review of Systems Constitutional: Reports: no symptoms. Objective Last 24 Hrs of Vital Signs/I&O Vital Signs Date Time Temp Pulse Resp B/P Pulse O2 O2 Flow FiO2 Ox Delivery Rate 02/15 1645 96 Room Air 02/15 1600 Room Air 02/15 1414 98.5 62 20 125/55 96 02/15 1222 97 Room Air Room Air 02/15 1218 98.5 62 19 120/50 96 02/15 0820 97 Room Air 02/15 0800 Room Air 02/15 0643 98.4 91 20 124/56 93 Room Air 02/15 0319 97 Room Air 02/15 0000 96 Room Air 02/14 2227 98.1 88 20 130/60 96 Room Air Intake & Output 02/15 1600 02/15 0800 02/15 0000 Intake Total 450 200 700 Output Total 200 150 280 Balance 250 50 420 Intake, Oral 450 200 700 Output, Stool 200 50 100 Output, Urine 100 180 Patient 83.574 kg 86.183 kg Weight Physical Exam General Appearance: Alert, Oriented X3, Cooperative, No Acute Distress HEENT: Atraumatic, PERRLA, EOMI, Mucous Membr. moist/pink Cardiovascular: Regular Rate, Normal S1, Normal S2, No Murmurs Lungs: Clear to Auscultation, Normal Air Movement Abdomen: Soft, No Tenderness Extremities: LE Edema B/L Assessment/Plan Assessment: Plan # S/P exploratory laparotomy with transverse colectomy and end colostomy for ischemic bowel Stable and denies any current complain, colostomy bag clear. Patient denies any current abdominal pain, nausea, or vomiting. * Stable we will follow surgical recommendations # Left upper extremity swelling sp AV fistula No change since yesterday. Continue arm elevation and patient will follow-up with vascular on outpatient basis, vascular is aware * Continue measure arm and forearm circumference daily. # ESRD on Dialysis MWF * Nephro on board * We will hold antihypertensives on the morning of dialysis. * We continue Lasix 80 mg daily as per nephrology # Hx of COPD Succesfully extubated on day 0 post surgery. He has Previous history of MRSA and Pseudomonas in the lower respiratory tract. Decorative Engraver Apprentice Dr. Perry is on board. 5 days ago patient had leukocytosis with worsening of his dyspnea, chest x-ray that time was suggestive of pneumonia, patient was initially started on IV Unasyn and steroid then switch to Augmentin. He received 5 days course of antibiotic and 5 days course of steroid. * cont TRC/Nebs * Watch off antibiotic and steroid # Left renal obstruction Asymptomatic obstructed left kidney due to UPJ stone. Risk of surgery for stone removal/stent without sepsis outweighs benefits for this ESRD-dialysis pt. Urology consulted, Dr. Elise. * NTD for now #Anemia most likely 2/2 ESRD * H&h low but stable, cont' monitoring #History of Afib INR today is 2.35 * We will continue Coumadin 5 mg daily * We will dose Coumadin daily # Diabetes mellitus * ISS, finger stick glucose Renal dialysis diet DVT prophylaxis on warfarin Full code Problem List: 1. End-stage renal disease on hemodialysis Pain Ratin Pain Location: na Pain Goal: Remain pain free Pain Plan: see A&P Tomorrow's Labs & Rationales: INR HERMINIA LINDO 02/15/17 1132: Attending MD Review Statement Attending Statement Attending MD Statement: examined this patient, discuss w/resident/PA/CASTING MACHINE SET UP OPERATOR, agreed w/resident/PA/CASTING MACHINE SET UP OPERATOR, discussed with family, reviewed EMR data (avail), discussed with nursing, discussed with case mgmt, reviewed images Attending Assessment/Plan: 72M COPD, recent worsening renal failure now with end-stage renal disease on hemodialysis, paroxysmal atrial fibrillation who is on anticoagulation, chronic heart failure with preserved ejection fraction LVEF of 50%, 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 Plan - ESRD on dialysis, plan as per nephrology, dialysis. - Continue Coumadin INR therapeutic - Continue home medications - dyspnea at rest, repeat chest xray suggestive of right sided worsening infiltrates cmpleted abx as per ID. - left upper extremity edema USG negative for DVT, USG arterial without any significant stenosis but hematoma vs seroma. vascular surgery no acute intervention needed. f/u o/p. d/c planning to [facility]. arranged HD as o/p, f/u nephrology in 1 week, vascular surgery in 2-3 weeks, PCP in 1 week. awaiting placement.
[2017-02-15 08:49] LABS: PT 24.5 SEC (9.4-12.5)
[2017-02-15 09:00] LABS: ABSOLUTE BASOPHIL COUNT 0 /CUMM (0.0-0.2); ABSOLUTE EOSINOPHIL COUNT 0.4 /CUMM (0.0-0.7); ABSOLUTE GRANULOCYTE CT 7.8 /CUMM (1.4-6.5); ABSOLUTE LYMPH COUNT 0.9 /CUMM (1.2-3.4); ABSOLUTE MONOCYTE COUNT 0.9 /CUMM (0.10-0.60); BASOPHIL % 0.4 % (0.0-2.0); EOSINOPHIL % 4.2 % (0-5); GRANULOCYTE % 77.7 % (42.2-75.2); HEMATOCRIT 28.5 % (42-52); MEAN CORPUSCULAR HGB 28.6 PG (27.0-31.0); MEAN CORPUSCULAR HGB CONC 31.8 G/DL (33.0-37.0); MEAN CORPUSCULAR VOLUME 89.9 FL (80.0-94.0); MEAN PLATELET VOLUME 9.3 FL (7.4-10.4); PLATELET COUNT 106 /CUMM (130-400); RBC DISTRIBUTION WIDTH 21.5 % (11.5-14.5); RED BLOOD CELL CT 3.16 /CUMM (4.70-6.10)
--- NOTE | 2017-02-15 09:49 | PN- Nephrology ---
Assessment/Plan Assessment: ESRD - Full HD session today. Agreeable to 2.5L UF. May be able to downtitrate "EDW" to 84kg with instructions for maximum UF to 3L/session. If significantly above EDW (more than 3L), would need to come in for extra session. Pt seems amenable to that. 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 We are trying to avoid hypotension with dialysis. Obstructing Left renal pelvic stone - Has been evaluated by Urology - no need for intervention. A fib - INR 1.98 on admission. Is therapeutic again. RADHA Swelling - Post-op - Recommended arm elevation and MEREDITH bandage. Seems to be doing better. ?PNA - Off abx. Suggestion: -HD today - 2.5L UF as tolerated -Tentative plans for outpatient EDW of 84kg as above (max UF 3L/session) -Hold anti-hypertensives on morning of dialysis (if on as outpatient) -Vascular follow-up Please call [phone] with ?'s Subjective Subjective: Pt seen and examined on dialysis Doing OK Agreeable to 2.5L UF and possible downtitration of EDW but with "maxing-out" maximum UF per session Objective Vital Signs and I&Os Vital Signs Date Time Temp Pulse Resp B/P Pulse O2 O2 Flow FiO2 Ox Delivery Rate 02/15 0820 97 Room Air 02/15 0643 98.4 91 20 124/56 93 Room Air 02/15 0319 97 Room Air 02/15 0000 96 Room Air 02/14 2227 98.1 88 20 130/60 96 Room Air 02/14 1620 98 Room Air Room Air 02/14 1600 Room Air 02/14 1431 98.1 80 20 130/80 96 Intake & Output 02/15 1600 02/15 0400 02/14 1600 02/14 0400 02/13 1600 02/13 0400 Intake Total 275 274 2434 700 500 300 Output Total 150 280 300 400 250 450 Balance 50 420 780 300 250 -150 Intake, IV 0 Intake, Oral 392 491 7823 700 500 300 Number 1 Bowel Movements Output, Stool 50 100 300 300 100 275 Output, Urine 100 180 100 150 175 Patient 190 lb 189 lb 187 lb Weight Physical Exam: Gen - NAD HEENT - supple CV - RRR Chest - coughing, clear anteriorly Abd - soft Ext - 1-2+ edema; RADHA less swollen Neuro - AOX3 Access - SALMA cath, RADHA AVF +thrill Current Medications: Current Medications Sig/Johnna Start time Last Medication Dose Route Stop Time Status Admin Acetaminophen 650 MG Q4P PRN 01/31 1100 AC 02/05 PO 0113 Albuterol Sulfate 2 PUF Q4P PRN 02/06 0800 AC 02/06 INH 1313 Albuterol Sulfate 3 ML EVERY 4 HRS/AWAKE 02/05 1600 AC 02/15 INH 0817 Calcitriol 0.25 MCG MoWeFr PRN 01/30 0815 AC IV Calcium Carbonate 500 MG ONCE ONE 02/14 1315 DC 02/14 PO 02/14 1316 1530 Diclofenac Sodium 1 MAI 4 TIMES/DAY 02/05 1400 AC 02/13 TOP 2132 Epoetin Guzman 4,000 UNIT MoWeFr PRN 01/30 0815 AC IV Furosemide 80 MG DAILY 02/08 1138 AC 02/14 PO 1033 Insulin Aspart 0 AT BEDTIME 02/01 2200 AC 02/14 SC 2123 Insulin Aspart 0 TIDAC 02/01 1200 AC 02/14 SC 1650 Omeprazole 40 MG DAILY AC 02/12 1200 AC 02/15 PO 0624 Sodium Chloride 2 SPRAY Q4P PRN 01/31 0430 AC 02/05 CHULA 2133 Trazodone HCl 50 MG AT BEDTIME 01/30 2200 AC 02/14 PO 2123 Warfarin Sodium 5 MG COUMADIN 1700 ONE 02/14 1700 DC 02/14 PO 02/14 1701 1650 Results Pertinent Lab Results: Laboratory Tests 02/15 02/14 02/13 0800 0615 0804 Chemistry Sodium (137 - 145 mmol/L) 136 L Potassium (3.5 - 5.1 mmol/L) 4.8 Chloride (98 - 107 mmol/L) 101 Carbon Dioxide (22 - 30 mmol/L) 25 Anion Gap (5 - 16) 10 BUN (9 - 20 mg/dL) 48 H Creatinine (0.7 - 1.2 mg/dL) 4.5 H Estimated GFR (>60 ml/min) 13 L BUN/Creatinine Ratio (7 - 25 %) 10.7 Calcium (8.4 - 10.2 mg/dL) 8.5 Cancelled Phosphorus (2.5 - 4.5 mg/dL) 4.0 Magnesium (1.6 - 2.3 mg/dL) 1.5 L Albumin (3.5 - 5.0 g/dL) 2.8 L Coagulation PT (9.4 - 12.5 SEC) 24.5 H 23.3 H INR (0.90 - 1.17) 2.35 H 2.24 H Hematology CBC w Diff NO MAN DIFF REQ WBC (4.8 - 10.8 /CUMM) 10.0 RBC (4.70 - 6.10 /CUMM) 3.16 L Hgb (14.0 - 18.0 G/DL) 9.1 L Hct (42 - 52 %) 28.5 L MCV (80.0 - 94.0 FL) 89.9 MCH (27.0 - 31.0 PG) 28.6 RDW (11.5 - 14.5 %) 21.5 H Plt Count (130 - 400 /CUMM) 106 L MPV (7.4 - 10.4 FL) 9.3 Gran % (42.2 - 75.2 %) 77.7 H Lymphocytes % (20.5 - 51.1 %) 9.1 L Monocytes % (1.7 - 9.3 %) 8.6 Eosinophils % (0 - 5 %) 4.2 Basophils % (0.0 - 2.0 %) 0.4 Absolute Granulocytes (1.4 - 6.5 /CUMM) 7.8 H Absolute Lymphocytes (1.2 - 3.4 /CUMM) 0.9 L Absolute Monocytes (0.10 - 0.60 /CUMM) 0.9 H Absolute Eosinophils (0.0 - 0.7 /CUMM) 0.4 Absolute Basophils (0.0 - 0.2 /CUMM) 0 PUBS MCHC (33.0 - 37.0 G/DL) 31.8 L Serology Hep Bs Antigen Cancelled Hep Bs Antibody Cancelled 02/13 0740 Chemistry Sodium (137 - 145 mmol/L) 137 Potassium (3.5 - 5.1 mmol/L) 4.8 Chloride (98 - 107 mmol/L) 102 Carbon Dioxide (22 - 30 mmol/L) 25 Anion Gap (5 - 16) 11 BUN (9 - 20 mg/dL) 68 H Creatinine (0.7 - 1.2 mg/dL) 5.3 *H Estimated GFR (>60 ml/min) 11 L BUN/Creatinine Ratio (7 - 25 %) 12.8 Calcium (8.4 - 10.2 mg/dL) 8.8 Coagulation PT (9.4 - 12.5 SEC) 26.2 H INR (0.90 - 1.17) 2.52 H Hematology CBC w Diff MAN DIFF ORDERED WBC (4.8 - 10.8 /CUMM) 11.1 H RBC (4.70 - 6.10 /CUMM) 3.35 L Hgb (14.0 - 18.0 G/DL) 9.6 L Hct (42 - 52 %) 30.1 L MCV (80.0 - 94.0 FL) 89.8 MCH (27.0 - 31.0 PG) 28.8 RDW (11.5 - 14.5 %) 21.4 H Plt Count (130 - 400 /CUMM) 132 MPV (7.4 - 10.4 FL) 8.8 Gran % (42.2 - 75.2 %) 83.2 H Lymphocytes % (20.5 - 51.1 %) 8.1 L Monocytes % (1.7 - 9.3 %) 6.1 Eosinophils % (0 - 5 %) 2.5 Basophils % (0.0 - 2.0 %) 0.1 Absolute Granulocytes (1.4 - 6.5 /CUMM) 9.3 H Segmented Neutrophils (42.2 - 75.2 %) 72 Band Neutrophils (0.0 - 5.0 %) 2 Absolute Lymphocytes (1.2 - 3.4 /CUMM) 0.9 L Lymphocytes (20.5 - 51.1 %) 10 L Monocytes (1.7 - 9.3 %) 6 Absolute Monocytes (0.10 - 0.60 /CUMM) 0.7 H Eosinophils (0 - 5.0 %) 5 Absolute Eosinophils (0.0 - 0.7 /CUMM) 0.3 Absolute Basophils (0.0 - 0.2 /CUMM) 0 Metamyelocytes (0.0 - 1.0 %) 2 H Myelocytes (0 - 0 %) 3 H Platelet Estimate (ADEQUATE) VERIFIED BY SMEAR Anisocytosis 1+ Ovalocytes 1+ PUBS MCHC (33.0 - 37.0 G/DL) 32.0 L Serology Hep Bs Antigen (NONREACTIVE) NONREACTIVE Hep Bs Antibody (NONREACTIVE) NONREACTIVE Imaging/Other Studies: No recent imaging
[2017-02-15 12:18] VITALS: BP 120/50
--- NOTE | 2017-02-15 12:18 | NUR ---
PT BACK TO FLOOR AT 1207 FROM DIALYSIS.
[2017-02-15 14:14] VITALS: BP 125/55
--- NOTE | 2017-02-15 21:59 | NUR ---
PT WOKE UP FROM [facility] AT 2100 AND FELT SHORT OF BREATH, WANTED BREATHING TX. PT O2 SAT 95% ON RA. RESPIRATORY PAGED AND IN TO GIVE PT TX. WHEN THIS RN WENT INTO ROOM AT 2119, PT STATED HE WAS UPSET WITH HIS CARE AND MEDICATIONS HE WAS RECEIVING HERE. HE WANTED TO SPEAK TO A DOCTOR. STUDIO ASSISTANT LILY NOTIFIED AND IN TO SEE PT. PREDISONE 40MG TAB ORDERED TO HELP WITH BREATHING. PT OK WITH POC. WILL CONTINUE TO MONITOR.
[2017-02-15 22:51] VITALS: BP 124/60
[2017-02-16 06:54] VITALS: BP 140/70
[2017-02-16 08:36] LABS: PT 19.4 SEC (9.4-12.5)
--- NOTE | 2017-02-16 10:40 | PN- Nephrology ---
Assessment/Plan Assessment: ESRD - HD tomorrow. Pt agreeable to 2.5-3.0L as tolerated. May do extra HD session on Monday. I suspect that although his weight is higher in the hospital than as an outpatient, he has lost further fat/muscle and replaced it with fluid while in the hospital. He sort of understands this and is agreeable to use taking off fluid with dialysis. His outpatient EDW will need to adjusted. 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 We are trying to avoid hypotension with dialysis. Obstructing Left renal pelvic stone - Has been evaluated by Urology - no need for intervention. A fib - INR 1.98 on admission. Is therapeutic again. RADHA Swelling - Post-op - Recommended arm elevation and MEREDITH bandage. Seems to be doing better. Cough/SOB - Pt already received course of abx. May be worth reimaging to see if it's fluid. Suggestion: -Would repeat chest x-ray -HD tomorrow; probable HD on Monday depending on clinical status -Will need to adjust EDW on discharge -Hold anti-hypertensives on morning of dialysis (if on as outpatient) -Vascular follow-up Please call [phone] with ?'s Subjective Subjective: Had dialysis yesterday Complains of continued cough and SOB Objective Vital Signs and I&Os Vital Signs Date Time Temp Pulse Resp B/P Pulse O2 O2 Flow FiO2 Ox Delivery Rate 02/16 0756 94 Room Air 02/16 0654 97.7 81 20 140/70 95 Room Air 02/16 0127 96 Room Air 02/16 0000 96 Room Air 02/15 2251 98.9 85 20 124/60 95 Room Air 02/15 1645 96 Room Air 02/15 1600 Room Air 02/15 1414 98.5 62 20 125/55 96 02/15 1222 97 Room Air Room Air 02/15 1218 98.5 62 19 120/50 96 Intake & Output 02/16 1600 02/16 0400 02/15 1600 02/15 0400 02/14 1600 02/14 0400 Intake Total 100 600 645 765 5724 700 Output Total 300 500 350 280 300 400 Balance -200 100 300 420 780 300 Intake, IV 0 Intake, Oral 100 600 151 193 3994 700 Number 1 Bowel Movements Output, Stool 200 500 250 100 300 300 Output, Urine 100 100 180 100 Patient 188 lb 184 lb 189 lb Weight Physical Exam: Gen - NAD HEENT - supple CV - RRR Chest - coughing, clear anteriorly Abd - soft Ext - 1-2+ edema; RADHA less swollen Neuro - AOX3 Access - SALMA cath, RADHA AVF +thrill Current Medications: Current Medications Sig/Johnna Start time Last Medication Dose Route Stop Time Status Admin Acetaminophen 650 MG .STK-MED ONE 02/15 1339 DC PO 02/15 1340 Acetaminophen 650 MG Q4P PRN 01/31 1100 AC 02/15 PO 1341 Albuterol Sulfate 2 PUF Q4P PRN 02/06 0800 AC 02/06 INH 1313 Albuterol Sulfate 3 ML EVERY 4 HRS/AWAKE 02/05 1600 AC 02/16 INH 0753 Calcitriol 0.25 MCG MoWeFr PRN 01/30 0815 AC IV Diclofenac Sodium 1 MAI 4 TIMES/DAY 02/05 1400 AC 02/13 TOP 2132 Epoetin Guzman 4,000 UNIT MoWeFr PRN 01/30 0815 AC IV Furosemide 80 MG DAILY 02/08 1138 AC 02/16 PO 1008 Guaifenesin 600 MG Q12 02/16 1000 AC 02/16 PO 1008 Insulin Aspart 0 AT BEDTIME 02/01 2200 AC 02/14 SC 2123 Insulin Aspart 0 TIDAC 02/01 1200 AC 02/16 SC 0804 Methylprednisolone 40 MG ONCE ONE 02/15 2130 CAN IV 02/15 2131 Omeprazole 40 MG DAILY AC 02/12 1200 AC 02/16 PO 0615 Prednisone 40 MG ONCE ONE 02/15 2200 DC 02/15 PO 02/15 2201 2236 Sodium Chloride 2 SPRAY Q4P PRN 01/31 0430 AC 02/05 CHULA 2133 Trazodone HCl 50 MG AT BEDTIME 01/30 2200 AC 02/14 PO 2123 Warfarin Sodium 5 MG COUMADIN 1700 ONE 02/15 1700 DC 02/15 PO 02/15 1701 1757 Results Pertinent Lab Results: Laboratory Tests 02/16 02/15 02/15 0615 1130 0800 Chemistry Sodium (137 - 145 mmol/L) 136 L Potassium (3.5 - 5.1 mmol/L) 4.8 Chloride (98 - 107 mmol/L) 101 Carbon Dioxide (22 - 30 mmol/L) 25 Anion Gap (5 - 16) 10 BUN (9 - 20 mg/dL) 12 48 H Creatinine (0.7 - 1.2 mg/dL) 4.5 H Estimated GFR (>60 ml/min) 13 L BUN/Creatinine Ratio (7 - 25 %) 10.7 Calcium (8.4 - 10.2 mg/dL) 8.5 Phosphorus (2.5 - 4.5 mg/dL) 4.0 Magnesium (1.6 - 2.3 mg/dL) 1.5 L Albumin (3.5 - 5.0 g/dL) 2.8 L Coagulation PT (9.4 - 12.5 SEC) 19.4 H 24.5 H INR (0.90 - 1.17) 1.86 H 2.35 H Hematology CBC w Diff NO MAN DIFF REQ WBC (4.8 - 10.8 /CUMM) 10.0 RBC (4.70 - 6.10 /CUMM) 3.16 L Hgb (14.0 - 18.0 G/DL) 9.1 L Hct (42 - 52 %) 28.5 L MCV (80.0 - 94.0 FL) 89.9 MCH (27.0 - 31.0 PG) 28.6 RDW (11.5 - 14.5 %) 21.5 H Plt Count (130 - 400 /CUMM) 106 L MPV (7.4 - 10.4 FL) 9.3 Gran % (42.2 - 75.2 %) 77.7 H Lymphocytes % (20.5 - 51.1 %) 9.1 L Monocytes % (1.7 - 9.3 %) 8.6 Eosinophils % (0 - 5 %) 4.2 Basophils % (0.0 - 2.0 %) 0.4 Absolute Granulocytes (1.4 - 6.5 /CUMM) 7.8 H Absolute Lymphocytes (1.2 - 3.4 /CUMM) 0.9 L Absolute Monocytes (0.10 - 0.60 /CUMM) 0.9 H Absolute Eosinophils (0.0 - 0.7 /CUMM) 0.4 Absolute Basophils (0.0 - 0.2 /CUMM) 0 PUBS MCHC (33.0 - 37.0 G/DL) 31.8 L 02/14 0615 Coagulation PT (9.4 - 12.5 SEC) 23.3 H INR (0.90 - 1.17) 2.24 H Imaging/Other Studies: None recent
--- NOTE | 2017-02-16 11:05 | PN- Housestaff ---
[address],[facility] 02/16/17 1105: Subjective Follow-up For: -Ischemic colitis status post surgical internvention -Hemodialysis -Left arm swelling Subjective: Afebrile, dynamically stable, hemodynamically stable, no overnight events were reported. Patient reports worsening of his cough and dyspnea. She is saturating 97% on room air. He denies any other complaints. Review of Systems Constitutional: Reports: see HPI. Cardiovascular: Denies: chest pain. Objective Last 24 Hrs of Vital Signs/I&O Vital Signs Date Time Temp Pulse Resp B/P Pulse O2 O2 Flow FiO2 Ox Delivery Rate 02/16 08 97 Room Air 02/16 0756 94 Room Air 02/16 0654 97.7 81 20 140/70 95 Room Air 02/16 0127 96 Room Air 02/16 0000 96 Room Air 02/15 2251 98.9 85 20 124/60 95 Room Air 02/15 1645 96 Room Air 02/15 1600 Room Air 02/15 1414 98.5 62 20 125/55 96 Intake & Output 02/16 1600 02/16 0800 02/16 0000 Intake Total 100 600 Output Total 300 500 Balance -200 100 Intake, IV 0 Intake, Oral 100 600 Output, Stool 200 500 Output, Urine 100 Patient 85.275 kg Weight Physical Exam General Appearance: Alert, Oriented X3, Cooperative, No Acute Distress HEENT: Atraumatic, PERRLA, EOMI, Mucous Membr. moist/pink Cardiovascular: Regular Rate, Normal S1, Normal S2, No Murmurs Lungs: crackles and rhonchi over lung base bilaterally Abdomen: Soft, No Tenderness Neurological: Normal Speech Extremities: +1 bilateral lower extremity edema Current Medications: Current Medications Sig/Johnna Start time Last Medication Dose Route Stop Time Status Admin Acetaminophen 650 MG .STK-MED ONE 02/15 1339 DC PO 02/15 1340 Acetaminophen 650 MG Q4P PRN 01/31 1100 AC 02/15 PO 1341 Albuterol Sulfate 2 PUF Q4P PRN 02/06 0800 AC 02/06 INH 1313 Albuterol Sulfate 3 ML EVERY 4 HRS/AWAKE 02/05 1600 AC 02/16 INH 1153 Calcitriol 0.25 MCG MoWeFr PRN 01/30 0815 AC IV Diclofenac Sodium 1 MAI 4 TIMES/DAY 02/05 1400 AC 02/13 TOP 2132 Epoetin Guzman 4,000 UNIT MoWeFr PRN 01/30 0815 AC IV Furosemide 80 MG DAILY 02/08 1138 AC 02/16 PO 1008 Guaifenesin 600 MG Q12 02/16 1000 AC 02/16 PO 1008 Insulin Aspart 0 AT BEDTIME 02/01 2200 AC 02/14 SC 212 Insulin Aspart 0 TIDAC 02/01 1200 AC 02/16 SC 1210 Methylprednisolone 40 MG ONCE ONE 02/15 2130 CAN IV 02/15 2131 Omeprazole 40 MG DAILY AC 02/12 1200 AC 02/16 PO 0615 Prednisone 40 MG ONCE ONE 02/15 2200 DC 02/15 PO 02/15 220 2236 Sodium Chloride 2 SPRAY Q4P PRN 01/31 0430 AC 02/05 CHULA 2133 Trazodone HCl 50 MG AT BEDTIME 01/30 2200 AC 02/14 PO 2122 Warfarin Sodium 5 MG COUMADIN 1700 ONE 02/15 1700 DC 02/15 PO 02/15 1701 1757 Last 24 Hrs of Lab/Satnam Results Last 24 Hrs of Labs/Mics: Laboratory Tests 02/16/17 0615: PT 19.4 H, INR 1.86 H Assessment/Plan Assessment: Plan # S/P exploratory laparotomy with transverse colectomy and end colostomy for ischemic bowel Stable and denies any current complain, colostomy bag clear. Patient denies any current abdominal pain, nausea, or vomiting. * Stable we will follow surgical recommendations # Left upper extremity swelling sp AV fistula No change since yesterday. Continue arm elevation and patient will follow-up with vascular on outpatient basis, vascular is aware * Continue measure arm and forearm circumference daily.today is left arm L 30.5 CM and U 35 CM # ESRD on Dialysis MWF * Nephro on board * We will hold antihypertensives on the morning of dialysis. * We continue Lasix 80 mg daily as per nephrology # Hx of COPD He was treated for possible pneumonia based on x-ray and worsening of dyspnea with 5 days of antibiotic and steroid. He was initially started on IV Unasyn and steroid then switch to Augmentin. He received 5 days course of antibiotic and 5 days course of steroid. Last day of treatment being February 09. * cont TRC/Nebs * Watch off antibiotic and steroid * We will order chest x-ray # Left renal obstruction Asymptomatic obstructed left kidney due to UPJ stone. Risk of surgery for stone removal/stent without sepsis outweighs benefits for this ESRD-dialysis pt. Urology consulted, Dr. Elise. * NTD for now #Anemia most likely 2/2 ESRD * H&h low but stable, cont' monitoring #History of Afib INR today is 1.8 * We will continue Coumadin 5 mg daily * We will dose Coumadin daily # Diabetes mellitus * ISS, finger stick glucose Renal dialysis diet DVT prophylaxis on warfarin Full code Problem List: 1. End-stage renal disease on hemodialysis Pain Ratin Pain Location: na Pain Goal: Remain pain free Pain Plan: See A&P Tomorrow's Labs & Rationales: INR HERMINIA LINDO 02/16/17 1125: Attending MD Review Statement Attending Statement Attending MD Statement: examined this patient, discuss w/resident/PA/GRAIN CLEANER, agreed w/resident/PA/GRAIN CLEANER, discussed with family, reviewed EMR data (avail), discussed with nursing, discussed with case mgmt, reviewed images Attending Assessment/Plan: 72M COPD, recent worsening renal failure now with end-stage renal disease on hemodialysis, paroxysmal atrial fibrillation who is on anticoagulation, chronic heart failure with preserved ejection fraction LVEF of 50%, 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 Plan - ESRD on dialysis, plan as per nephrology, dialysis. - Continue Coumadin INR therapeutic - Continue home medications - dyspnea at rest, repeat chest xray suggestive of right sided worsening infiltrates cmpleted abx as per ID. - left upper extremity edema USG negative for DVT, USG arterial without any significant stenosis but hematoma vs seroma. vascular surgery no acute intervention needed. f/u o/p. d/c planning to STR. arranged HD as o/p, f/u nephrology in 1 week, vascular surgery in 2-3 weeks, PCP in 1 week. awaiting placement. Patient is stable for discharge.
[2017-02-16 14:17] VITALS: BP 136/68
--- NOTE | 2017-02-16 14:41 | RADIOLOGY REPORT ---
EXAMINATION: XR CHEST CLINICAL INFORMATION: Worsening cough and shortness of breath. COMPARISON: 02/06/2017 TECHNIQUE: Portable AP view of the chest was obtained. FINDINGS: Hyperinflated lung field is present bilaterally. No superimposed discrete focal airspace disease present. Evidence of pulmonary venous hypertension is noted, appears improved. Previously identified bibasilar airspace opacities appear resolved. Right-sided central line, dual lead AICD device are noted, appear intact. There is no pleural effusion present, unchanged. IMPRESSION: Interval resolution of nonspecific bibasilar airspace disease. Improved pulmonary venous hypertension.
[2017-02-16 22:56] VITALS: BP 120/70
[2017-02-17 06:56] VITALS: BP 130/70
--- NOTE | 2017-02-17 08:58 | PN- Housestaff ---
See Addendum Subjective Follow-up For: -Ischemic colitis status post surgical internvention -Hemodialysis -Left arm swelling Subjective: Afebrile, dynamically stable, hemodynamically stable, no overnight events were reported. Even though patient denies bringing up phlegm, he coughed out a large amount of phlegm while I was examining him. He is saturating 97% on room air. He denies any other complaints. Review of Systems Constitutional: Reports: no symptoms. Objective Last 24 Hrs of Vital Signs/I&O Vital Signs Date Time Temp Pulse Resp B/P Pulse O2 O2 Flow FiO2 Ox Delivery Rate 02/17 0846 95 Room Air Room Air 02/17 0656 97.9 77 20 130/70 98 Room Air 02/17 0110 95 Room Air Room Air 02/17 0000 Room Air 02/16 2256 97.0 69 20 120/70 97 Room Air 02/16 1635 96 Room Air 02/16 1417 98.1 90 20 136/68 96 Intake & Output 02/17 1600 02/17 0800 02/17 0000 Intake Total 250 480 Output Total 230 50 Balance 20 430 Intake, IV 0 Intake, Oral 250 480 Output, Stool 50 Output, Urine 180 50 Patient 86.183 kg Weight Physical Exam General Appearance: Alert, Oriented X3, Cooperative, No Acute Distress HEENT: Atraumatic, PERRLA, EOMI, Mucous Membr. moist/pink Cardiovascular: Regular Rate, Normal S1, Normal S2, No Murmurs Lungs: wheezing all over the lung B/L Abdomen: Soft, No Tenderness Neurological: Normal Gait, Normal Speech, Strength at 5/5 X4 Ext Extremities: +1 bilateral lower extremity edema, +1 left upper extremity edema Current Medications: Current Medications Sig/Johnna Start time Last Medication Dose Route Stop Time Status Admin Acetaminophen 650 MG Q4P PRN 01/31 1100 AC 02/15 PO 1341 Albuterol Sulfate 2 PUF Q4P PRN 02/06 0800 AC 02/06 INH 1313 Albuterol Sulfate 3 ML EVERY 4 HRS/AWAKE 02/05 1600 AC 02/17 INH 0829 Calcitriol 0.25 MCG MoWeFr PRN 01/30 0815 AC IV Diclofenac Sodium 1 MAI 4 TIMES/DAY 02/05 1400 AC 02/13 TOP 2132 Epoetin Guzman 4,000 UNIT MoWeFr PRN 01/30 0815 AC IV Furosemide 80 MG DAILY 02/08 1138 AC 02/17 PO 0823 Guaifenesin 600 MG Q12 02/16 1000 AC 02/17 PO 0824 Insulin Aspart 0 AT BEDTIME 02/01 2200 AC 02/16 SC 2138 Insulin Aspart 0 TIDAC 02/01 1200 AC 02/17 SC 0824 Omeprazole 40 MG DAILY AC 02/12 1200 AC 02/17 PO 0535 Sodium Chloride 2 SPRAY Q4P PRN 01/31 0430 AC 02/05 CHULA 2133 Trazodone HCl 50 MG AT BEDTIME 01/30 2200 AC 02/16 PO 2136 Warfarin Sodium 5 MG COUMADIN 1700 ONE 02/16 1700 DC 02/16 PO 02/16 1701 1818 Last 24 Hrs of Lab/Satnam Results Last 24 Hrs of Labs/Mics: Laboratory Tests 02/17/17 0719: PT 22.0 H, INR 2.11 H Assessment/Plan Assessment: Plan # S/P exploratory laparotomy with transverse colectomy and end colostomy for ischemic bowel Stable and denies any current complain, colostomy bag clear. Patient denies any current abdominal pain, nausea, or vomiting. * Stable will be instructed to follow-up as an outpatient with surgery service # Left upper extremity swelling sp AV fistula No change since yesterday. Continue arm elevation and patient will follow-up with vascular on outpatient basis, vascular is aware * Continue measure arm and forearm circumference daily. # ESRD on Dialysis MWF * Nephro on board * We will hold antihypertensives on the morning of dialysis. * We continue Lasix 80 mg daily as per nephrology # Hx of COPD He was treated for possible pneumonia based on x-ray and worsening of dyspnea with 5 days of antibiotic and steroid. He was initially started on IV Unasyn and steroid then switch to Augmentin. He received 5 days course of antibiotic and 5 days course of steroid. Last day of treatment being February 09. Yesterday patient complained of dyspnea, x-ray was order and showed improvement of airspace disease. He still saturating upper 90s on room air. * cont TRC/Nebs * Watch off antibiotic and steroid # Left renal obstruction Asymptomatic obstructed left kidney due to UPJ stone. Risk of surgery for stone removal/stent without sepsis outweighs benefits for this ESRD-dialysis pt. Urology consulted, Dr. Elise. * NTD for now #Anemia most likely 2/2 ESRD * H&h low but stable, cont' monitoring #History of Afib INR today is 2.11 * We will continue Coumadin 5 mg daily * We will dose Coumadin daily # Diabetes mellitus * ISS, finger stick glucose Renal dialysis diet DVT prophylaxis on warfarin Full code Problem List: 1. End-stage renal disease on hemodialysis Pain Ratin Pain Location: NA Pain Goal: Remain pain free Pain Plan: See A&P Tomorrow's Labs & Rationales: INR
--- NOTE | 2017-02-17 11:37 | PN- Nephrology ---
Assessment/Plan Assessment: ESRD - Weight had gone down to 83.5kg on 02/15 after dialysis. Now up to 86kg. He has some increased vascular markings on chest xray as well as significant peripheral edema - he is volume expanded perhaps from losing fat/muscle and replacing it with fluid. His albumin is low and there may be some element of third spacing from this. He is agreeable to up to 3L of UF today (will be 3rd shift). If we are able to meet a goal UF of 3L, I think he'll be OK without additional dialysis tomorrow. I am a bit hesitant to perform an additional session on a Monday for a patient that has proven to be so tenuous, especially since his dialysis will be performed late this afternoon. 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 We are trying to avoid hypotension with dialysis. Obstructing Left renal pelvic stone - Has been evaluated by Urology - no need for intervention. A fib - INR 1.98 on admission. Is therapeutic again. RADHA Swelling - Post-op - Recommended arm elevation and MEREDITH bandage. Seems to be doing better. Cough/SOB - ?Bronchitis. Cannot rule out contribution of fluid so should monitor after dialysis later today. Suggestion: -HD today - goal UF of 3L -Will hold off on repeat dialysis session tomorrow -Will need to adjust EDW on discharge -Hold anti-hypertensives on morning of dialysis (if on as outpatient) -Vascular follow-up Please call [phone] with ?'s Subjective Subjective: Still complaining of cough and SOB Chest x-ray yesterday with some increased vascular markings Albumin 2.8 Objective Vital Signs and I&Os Vital Signs Date Time Temp Pulse Resp B/P Pulse O2 O2 Flow FiO2 Ox Delivery Rate 02/17 0846 95 Room Air Room Air 02/17 0656 97.9 77 20 130/70 98 Room Air 02/17 0110 95 Room Air Room Air 02/17 0000 Room Air 02/16 2256 97.0 69 20 120/70 97 Room Air 02/16 1635 96 Room Air 02/16 1417 98.1 90 20 136/68 96 Intake & Output 02/17 1600 02/17 0400 02/16 1600 02/16 0400 02/15 1600 02/15 0400 Intake Total 250 480 750 600 650 700 Output Total 230 50 600 500 350 280 Balance 20 430 150 100 300 420 Intake, IV 0 0 Intake, Oral 250 480 750 600 650 700 Output, Stool 50 400 500 250 100 Output, Urine 180 50 200 100 180 Patient 190 lb 188 lb 184 lb Weight Physical Exam: Gen - OK appearing HEENT - supple CV - RRR Chest - clear anteriorly however coughing during exam Abd - soft, nontender Ext - 2+ edema with hyperpigmented skin Neuro - AOX3 Access - SALMA cath and RADHA AVF +thrill Current Medications: Current Medications Sig/Johnna Start time Last Medication Dose Route Stop Time Status Admin Acetaminophen 650 MG Q4P PRN 01/31 1100 AC 02/15 PO 1341 Albuterol Sulfate 2 PUF Q4P PRN 02/06 0800 AC 02/06 INH 1313 Albuterol Sulfate 3 ML EVERY 4 HRS/AWAKE 02/05 1600 AC 02/17 INH 0829 Calcitriol 0.25 MCG MoWeFr PRN 01/30 0815 AC IV Diclofenac Sodium 1 MAI 4 TIMES/DAY 02/05 1400 AC 02/13 TOP 2132 Epoetin Guzman 4,000 UNIT MoWeFr PRN 01/30 0815 AC IV Furosemide 80 MG DAILY 02/08 1138 AC 02/17 PO 0823 Guaifenesin 600 MG Q12 02/16 1000 AC 02/17 PO 0824 Insulin Aspart 0 AT BEDTIME 02/01 2200 AC 02/16 SC 2138 Insulin Aspart 0 TIDAC 02/01 1200 AC 02/17 SC 0824 Omeprazole 40 MG DAILY AC 02/12 1200 AC 02/17 PO 0535 Sodium Chloride 2 SPRAY Q4P PRN 01/31 0430 AC 02/05 CHULA 2133 Trazodone HCl 50 MG AT BEDTIME 01/30 2200 AC 02/16 PO 2136 Warfarin Sodium 5 MG COUMADIN 1700 ONE 02/16 1700 DC 02/16 PO 02/16 1701 1818 Results Pertinent Lab Results: Laboratory Tests 02/17 02/16 02/15 0719 0615 1130 Chemistry BUN (9 - 20 mg/dL) 12 Coagulation PT (9.4 - 12.5 SEC) 22.0 H 19.4 H INR (0.90 - 1.17) 2.11 H 1.86 H 02/15 0800 Chemistry Sodium (137 - 145 mmol/L) 136 L Potassium (3.5 - 5.1 mmol/L) 4.8 Chloride (98 - 107 mmol/L) 101 Carbon Dioxide (22 - 30 mmol/L) 25 Anion Gap (5 - 16) 10 BUN (9 - 20 mg/dL) 48 H Creatinine (0.7 - 1.2 mg/dL) 4.5 H Estimated GFR (>60 ml/min) 13 L BUN/Creatinine Ratio (7 - 25 %) 10.7 Calcium (8.4 - 10.2 mg/dL) 8.5 Phosphorus (2.5 - 4.5 mg/dL) 4.0 Magnesium (1.6 - 2.3 mg/dL) 1.5 L Albumin (3.5 - 5.0 g/dL) 2.8 L Coagulation PT (9.4 - 12.5 SEC) 24.5 H INR (0.90 - 1.17) 2.35 H Hematology CBC w Diff NO MAN DIFF REQ WBC (4.8 - 10.8 /CUMM) 10.0 RBC (4.70 - 6.10 /CUMM) 3.16 L Hgb (14.0 - 18.0 G/DL) 9.1 L Hct (42 - 52 %) 28.5 L MCV (80.0 - 94.0 FL) 89.9 MCH (27.0 - 31.0 PG) 28.6 RDW (11.5 - 14.5 %) 21.5 H Plt Count (130 - 400 /CUMM) 106 L MPV (7.4 - 10.4 FL) 9.3 Gran % (42.2 - 75.2 %) 77.7 H Lymphocytes % (20.5 - 51.1 %) 9.1 L Monocytes % (1.7 - 9.3 %) 8.6 Eosinophils % (0 - 5 %) 4.2 Basophils % (0.0 - 2.0 %) 0.4 Absolute Granulocytes (1.4 - 6.5 /CUMM) 7.8 H Absolute Lymphocytes (1.2 - 3.4 /CUMM) 0.9 L Absolute Monocytes (0.10 - 0.60 /CUMM) 0.9 H Absolute Eosinophils (0.0 - 0.7 /CUMM) 0.4 Absolute Basophils (0.0 - 0.2 /CUMM) 0 PUBS MCHC (33.0 - 37.0 G/DL) 31.8 L Imaging/Other Studies: EXAM TYPE: RAD - XRY-PORTABLE CHEST XRAY EXAMINATION: XR CHEST CLINICAL INFORMATION: Worsening cough and shortness of breath. COMPARISON: 02/06/2017 TECHNIQUE: Portable AP view of the chest was obtained. FINDINGS: Hyperinflated lung field is present bilaterally. No superimposed discrete focal airspace disease present. Evidence of pulmonary venous hypertension is noted, appears improved. Previously identified bibasilar airspace opacities appear resolved. Right-sided central line, dual lead AICD device are noted, appear intact. There is no pleural effusion present, unchanged. IMPRESSION: Interval resolution of nonspecific bibasilar airspace disease. Improved pulmonary venous hypertension.
[2017-02-17 14:49] VITALS: BP 120/80
[2017-02-17 17:03] LABS: ABSOLUTE BASOPHIL COUNT 0 /CUMM (0.0-0.2); ABSOLUTE EOSINOPHIL COUNT 0.3 /CUMM (0.0-0.7); ABSOLUTE LYMPH COUNT 0.9 /CUMM (1.2-3.4); ABSOLUTE MONOCYTE COUNT 0.7 /CUMM (0.10-0.60); BASOPHIL % 0.5 % (0.0-2.0); EOSINOPHIL % 3.8 % (0-5); GRANULOCYTE % 77.2 % (42.2-75.2); HEMATOCRIT 28.2 % (42-52); MEAN CORPUSCULAR HGB 28.5 PG (27.0-31.0); MEAN CORPUSCULAR HGB CONC 31.6 G/DL (33.0-37.0); MEAN CORPUSCULAR VOLUME 90.2 FL (80.0-94.0); MEAN PLATELET VOLUME 9.7 FL (7.4-10.4); PLATELET COUNT 113 /CUMM (130-400); RBC DISTRIBUTION WIDTH 21.2 % (11.5-14.5); RED BLOOD CELL CT 3.13 /CUMM (4.70-6.10); WHITE BLOOD CELL COUNT 9.1 /CUMM (4.8-10.8)
[2017-02-17 22:09] VITALS: BP 110/52
[2017-02-18 07:20] VITALS: BP 122/50
--- NOTE | 2017-02-18 08:30 | PN- Housestaff ---
[address],[place] 02/18/17 0830: Subjective Follow-up For: -Ischemic colitis status post surgical internvention -Hemodialysis -Left arm swelling Subjective: Afebrile, dynamically stable, hemodynamically stable, no overnight events were reported. He is saturating 97% on room air. He denies any complaints. Review of Systems Constitutional: Reports: no symptoms. Objective Last 24 Hrs of Vital Signs/I&O Vital Signs Date Time Temp Pulse Resp B/P Pulse O2 O2 Flow FiO2 Ox Delivery Rate 02/18 1600 Room Air 02/18 1409 98.2 68 20 125/70 98 02/18 1148 92 Room Air 02/18 0800 Room Air 02/18 0720 98.2 78 20 122/50 91 Room Air 02/18 0149 95 Room Air 02/17 2209 98.3 88 24 110/52 92 Room Air 02/17 2003 96 Room Air Room Air Intake & Output 02/18 1600 02/18 0800 02/18 0000 Intake Total 650 100 480 Output Total 500 120 0 Balance 150 -20 480 Intake, Oral 650 100 480 Output, Other 20 Output, Stool 400 100 Output, Urine 100 0 Patient 84.141 kg 84.368 kg Weight Physical Exam General Appearance: Alert, Oriented X3, Cooperative, No Acute Distress HEENT: Atraumatic, PERRLA, EOMI, Mucous Membr. moist/pink Cardiovascular: Regular Rate, Normal S1, Normal S2, No Murmurs Lungs: Is air entry with wheezing and mild rhonchi all over lungs bilaterally Abdomen: Normal Bowel Sounds, Soft, No Tenderness Neurological: Normal Gait, Normal Speech Extremities: B/L lower extremity edema, left upper extremity edema Assessment/Plan Assessment: Plan # S/P exploratory laparotomy with transverse colectomy and end colostomy for ischemic bowel Stable and denies any current complain, colostomy bag clear. Patient denies any current abdominal pain, nausea, or vomiting. * Stable will be instructed to follow-up as an outpatient with surgery service # Left upper extremity swelling sp AV fistula No change since yesterday. Continue arm elevation and patient will follow-up with vascular on outpatient basis, vascular is aware * Continue measure arm and forearm circumference daily. # ESRD on Dialysis MWF * Nephro on board * We will hold antihypertensives on the morning of dialysis. * We continue Lasix 80 mg daily as per nephrology # Hx of COPD He was treated for possible pneumonia based on x-ray and worsening of dyspnea with 5 days of antibiotic and steroid. He was initially started on IV Unasyn and steroid then switch to Augmentin. He received 5 days course of antibiotic and 5 days course of steroid. Last day of treatment being February 09. Yesterday patient complained of dyspnea, x-ray was order and showed improvement of airspace disease. He still saturating upper 90s on room air. * cont TRC/Nebs * Watch off antibiotic and steroid # Left renal obstruction Asymptomatic obstructed left kidney due to UPJ stone. Risk of surgery for stone removal/stent without sepsis outweighs benefits for this ESRD-dialysis pt. Urology consulted, Dr. Elise. * NTD for now #Anemia most likely 2/2 ESRD * H&h low but stable, cont' monitoring #History of Afib INR today is 2.16 * We will continue Coumadin 5 mg daily * We will dose Coumadin daily # Diabetes mellitus * ISS, finger stick glucose Renal dialysis diet DVT prophylaxis on warfarin Full code Problem List: 1. End-stage renal disease on hemodialysis Pain Ratin Pain Location: na Pain Goal: Remain pain free Pain Plan: See A&P Tomorrow's Labs & Rationales: INR HERMINIA LINDO 02/18/17 1101: Attending MD Review Statement Attending Statement Attending MD Statement: examined this patient, discuss w/resident/PA/CONTENT SPECIALIST, agreed w/resident/PA/CONTENT SPECIALIST, discussed with family, reviewed EMR data (avail), discussed with nursing, discussed with case mgmt, reviewed images, amended to note Attending Assessment/Plan: 72M COPD, recent worsening renal failure now with end-stage renal disease on hemodialysis, paroxysmal atrial fibrillation who is on anticoagulation, chronic heart failure with preserved ejection fraction LVEF of 50%, 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 Plan - ESRD on dialysis, plan as per nephrology, dialysis. - Continue Coumadin INR therapeutic - Continue home medications - dyspnea at rest, repeat chest xray suggestive of right sided worsening infiltrates cmpleted abx as per ID. - left upper extremity edema USG negative for DVT, USG arterial without any significant stenosis but hematoma vs seroma. vascular surgery no acute intervention needed. f/u o/p. d/c planning to STR. arranged HD as o/p, f/u nephrology in 1 week, vascular surgery in 2-3 weeks, PCP in 1 week. awaiting placement. Patient is stable for discharge.
[2017-02-18 09:07] LABS: PT 22.5 SEC (9.4-12.5)
--- NOTE | 2017-02-18 13:51 | NUR ---
LEFT ARM MEASUREMENT: LOWER ARM: 32.5 CM UPPER ARM: 35.5 CM
[2017-02-18 14:09] VITALS: BP 125/70
[2017-02-18 21:49] VITALS: BP 114/60
[2017-02-19 07:00] VITALS: BP 112/58
--- NOTE | 2017-02-19 08:24 | PN- Housestaff ---
[address]24: Subjective Follow-up For: -Ischemic colitis status post surgical internvention -Hemodialysis -Left arm swelling Subjective: Afebrile, dynamically stable, hemodynamically stable, no overnight events were reported. He is saturating 97% on room air. He reported mild bilateral ankles pain, any other active complaints. Review of Systems Constitutional: Reports: see HPI. Objective Last 24 Hrs of Vital Signs/I&O Vital Signs Date Time Temp Pulse Resp B/P Pulse O2 O2 Flow FiO2 Ox Delivery Rate 02/19 0834 95 Nasal Room Air Cannula 02/19 0700 98.0 61 20 112/58 96 Room Air 02/19 0043 95 Room Air 02/18 2149 98.1 68 20 114/60 95 02/18 1600 Room Air 02/18 1409 98.2 68 20 125/70 98 Intake & Output 02/19 1600 02/19 0800 02/19 0000 Intake Total 360 480 Output Total 300 Balance 360 180 Intake, Oral 360 480 Output, Urine 300 Patient 85.729 kg Weight Physical Exam General Appearance: Alert, Oriented X3, Cooperative, No Acute Distress HEENT: Atraumatic, PERRLA, EOMI, Mucous Membr. moist/pink Cardiovascular: Regular Rate, Normal S1, Normal S2, No Murmurs Lungs: wheezing over lung bilaterally Abdomen: Normal Bowel Sounds, Soft, No Tenderness Neurological: Normal Gait, Normal Speech, Strength at 5/5 X4 Ext Extremities: B/L +1 lower extremity edema, left upper extremity edema Current Medications: Current Medications Sig/Johnna Start time Last Medication Dose Route Stop Time Status Admin Acetaminophen 650 MG Q4P PRN 01/31 1100 AC 02/17 PO 2348 Albuterol Sulfate 2 PUF Q4P PRN 02/06 0800 AC 02/06 INH 1313 Albuterol Sulfate 3 ML EVERY 4 HRS/AWAKE 02/05 1600 AC 02/19 INH 1123 Calcitriol 0.25 MCG MoWeFr PRN 01/30 0815 AC IV Diclofenac Sodium 1 MAI 4 TIMES/DAY 02/05 1400 AC 02/18 TOP 0852 Epoetin Guzman 4,000 UNIT MoWeFr PRN 01/30 0815 AC IV Furosemide 80 MG DAILY 02/08 1138 AC 02/19 PO 0859 Guaifenesin 600 MG Q12 02/16 1000 AC 02/19 PO 0859 Insulin Aspart 0 AT BEDTIME 02/01 2200 AC 02/16 SC 2138 Insulin Aspart 0 TIDAC 02/01 1200 AC 02/19 SC 0859 Omeprazole 40 MG DAILY AC 02/12 1200 AC 02/19 PO 0604 Sodium Chloride 2 SPRAY Q4P PRN 01/31 0430 AC 02/05 CHULA 2133 Trazodone HCl 50 MG AT BEDTIME 01/30 2200 AC 02/18 PO 2149 Warfarin Sodium 5 MG COUMADIN 1700 ONE 02/18 1700 DC 02/18 PO 02/18 1701 1727 Last 24 Hrs of Lab/Satnam Results Last 24 Hrs of Labs/Mics: Laboratory Tests 02/19/17 0630: PT 17.2 H, INR 1.65 H Assessment/Plan Assessment: Plan # S/P exploratory laparotomy with transverse colectomy and end colostomy for ischemic bowel Stable and denies any current complain, colostomy bag clear. Patient denies any current abdominal pain, nausea, or vomiting. * Stable will be instructed to follow-up as an outpatient with surgery service # Left upper extremity swelling sp AV fistula No change since yesterday. Continue arm elevation and patient will follow-up with vascular on outpatient basis, vascular is aware * Continue measure arm and forearm circumference daily. # ESRD on Dialysis MWF * Nephro on board * We will hold antihypertensives on the morning of dialysis. * We continue Lasix 80 mg daily as per nephrology # Hx of COPD He was treated for possible pneumonia based on x-ray and worsening of dyspnea with 5 days of antibiotic and steroid. He was initially started on IV Unasyn and steroid then switch to Augmentin. He received 5 days course of antibiotic and 5 days course of steroid. Last day of treatment being February 09. Yesterday patient complained of dyspnea, x-ray was order and showed improvement of airspace disease. He still saturating upper 90s on room air. * cont TRC/Nebs * Watch off antibiotic and steroid # Left renal obstruction Asymptomatic obstructed left kidney due to UPJ stone. Risk of surgery for stone removal/stent without sepsis outweighs benefits for this ESRD-dialysis pt. Urology consulted, Dr. Elise. * NTD for now #Anemia most likely 2/2 ESRD * H&h low but stable, cont' monitoring #History of Afib INR is below therapeutic today 1.6. As likely because patient went for hemodialysis after receiving his warfarin dose 2 days ago. * We will continue Coumadin 5 mg daily * We will dose Coumadin daily # Diabetes mellitus * ISS, finger stick glucose #Bilateral ankle pain No symptom or signs suggestive of gout flare * NTD Renal dialysis diet DVT prophylaxis on warfarin Full code Problem List: 1. End-stage renal disease on hemodialysis Pain Ratin Pain Location: Ankles Pain Goal: Remain pain free Pain Plan: See A&P Tomorrow's Labs & Rationales: INR HERMINIA LINDO 02/19/17 0941: Attending MD Review Statement Attending Statement Attending MD Statement: examined this patient, discuss w/resident/PA/FRONT CLERK, agreed w/resident/PA/FRONT CLERK, discussed with family, reviewed EMR data (avail), discussed with nursing, discussed with case mgmt, reviewed images, amended to note Attending Assessment/Plan: 72M COPD, recent worsening renal failure now with end-stage renal disease on hemodialysis, paroxysmal atrial fibrillation who is on anticoagulation, chronic heart failure with preserved ejection fraction LVEF of 50%, 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 Plan - ESRD on dialysis, plan as per nephrology, dialysis. - Continue Coumadin INR therapeutic - Continue home medications - dyspnea at rest, repeat chest xray suggestive of right sided worsening infiltrates cmpleted abx as per ID. - left upper extremity edema USG negative for DVT, USG arterial without any significant stenosis but hematoma vs seroma. vascular surgery no acute intervention needed. f/u o/p. d/c planning to STR. arranged HD as o/p, f/u nephrology in 1 week, vascular surgery in 2-3 weeks, PCP in 1 week. awaiting placement. Patient is stable for discharge.
[2017-02-19 08:43] LABS: PT 17.2 SEC (9.4-12.5)
[2017-02-19 14:19] VITALS: BP 142/70
--- NOTE | 2017-02-19 20:21 | NUR ---
1400- ARM CIRCUMFERENCE UPPER: 35 CM LOWER: 33.5 CM
[2017-02-19 22:11] VITALS: BP 130/70
[2017-02-20 07:02] VITALS: BP 126/64
--- NOTE | 2017-02-20 08:22 | PN- Housestaff ---
[address],[place] 02/20/17 0822: Subjective Follow-up For: -Ischemic colitis status post surgical internvention -Hemodialysis -Left arm swelling Subjective: Afebrile, hemodynamically stable, no overnight events reported. Patient saturating well on room air. He is going for hemodialysis today. Most likely will be discharged after coming back from dialysis Review of Systems Constitutional: Reports: see HPI. Objective Last 24 Hrs of Vital Signs/I&O Vital Signs Date Time Temp Pulse Resp B/P Pulse O2 O2 Flow FiO2 Ox Delivery Rate 02/20 1434 98.7 62 20 145/68 98 02/20 1223 97.8 61 20 150/60 96 02/20 1150 Room Air 02/20 0800 Room Air 02/20 0702 98.1 69 20 126/64 98 Room Air 02/20 0101 93 Room Air 02/20 0000 98 Room Air 02/19 2211 98.2 79 20 130/70 98 02/19 2054 96 Room Air Intake & Output 02/20 1600 02/20 0800 02/20 0000 Intake Total 240 300 350 Output Total 2800 350 300 Balance -2560 -50 50 Intake, Oral 240 300 350 Output, 2800 Dialysate Output, Urine 350 300 Patient 86.324 kg Weight Physical Exam General Appearance: Alert, Oriented X3, Cooperative, No Acute Distress Skin: No Rashes HEENT: Atraumatic, PERRLA, EOMI, Mucous Membr. moist/pink Cardiovascular: Regular Rate, Normal S1, Normal S2, No Murmurs Lungs: Clear to Auscultation, Normal Air Movement Abdomen: Soft, No Tenderness Neurological: Normal Speech Extremities: No Clubbing, No Cyanosis, trace edema over LE B/L Current Medications: Current Medications Sig/Johnna Start time Last Medication Dose Route Stop Time Status Admin Acetaminophen 650 MG Q4P PRN 01/31 1100 AC 02/17 PO 2348 Albuterol Sulfate 2 PUF Q4P PRN 02/06 0800 AC 02/06 INH 1313 Albuterol Sulfate 3 ML EVERY 4 HRS/AWAKE 02/05 1600 AC 02/20 INH 1148 Calcitriol 0.25 MCG MoWeFr PRN 01/30 0815 AC IV Diclofenac Sodium 1 MAI 4 TIMES/DAY 02/05 1400 AC 02/19 TOP 1820 Epoetin Guzman 4,000 UNIT MoWeFr PRN 01/30 0815 AC IV Furosemide 80 MG DAILY 02/08 1138 AC 02/20 PO 1253 Guaifenesin 600 MG Q12 02/16 1000 AC 02/20 PO 1253 Insulin Aspart 0 AT BEDTIME 02/01 2200 AC 02/16 SC 2138 Insulin Aspart 0 TIDAC 02/01 1200 AC 02/20 SC 0749 Omeprazole 40 MG DAILY AC 02/12 1200 AC 02/20 PO 0609 Patient Medication 1 ED .STK-MED ONE 02/20 1352 ME Teaching ED 02/20 1353 Sodium Chloride 2 SPRAY Q4P PRN 01/31 0430 AC 02/05 CHULA 2133 Trazodone HCl 50 MG AT BEDTIME 01/30 2200 AC 02/19 PO 2203 Warfarin Sodium 5 MG COUMADIN 1700 ONE 02/19 1700 ME 02/19 PO 02/19 1701 1819 Last 24 Hrs of Lab/Satnam Results Last 24 Hrs of Labs/Mics: Laboratory Tests 02/20/17 0800: Anion Gap 13, Estimated GFR 12 L, BUN/Creatinine Ratio 12.3, Calcium 8.9, PT 18.9 H, INR 1.81 H, CBC w Diff NO MAN DIFF REQ, RBC 3.13 L, MCV 88.5, MCH 29.0, RDW 20.2 H, MPV 9.4, Gran % 75.8 H, Lymphocytes % 9.5 L, Monocytes % 10.7 H, Eosinophils % 3.9, Basophils % 0.1, Absolute Granulocytes 7.4 H, Absolute Lymphocytes 0.9 L, Absolute Monocytes 1.0 H, Absolute Eosinophils 0.4 , Absolute Basophils 0, PUBS MCHC 32.8 L Assessment/Plan Assessment: Plan # S/P exploratory laparotomy with transverse colectomy and end colostomy for ischemic bowel Stable and denies any current complain, colostomy bag clear. Patient denies any current abdominal pain, nausea, or vomiting. * Stable will be instructed to follow-up as an outpatient with surgery service # Left upper extremity swelling sp AV fistula No change since yesterday. Continue arm elevation and patient will follow-up with vascular on outpatient basis, vascular is aware * Continue measure arm and forearm circumference daily. # ESRD on Dialysis MWF * Nephro on board * We will hold antihypertensives on the morning of dialysis. * Will restart 2.5 metoprolol and 10 mg of Isosorbide * We continue Lasix 80 mg daily as per nephrology # Hx of COPD He was treated for possible pneumonia based on x-ray and worsening of dyspnea with 5 days of antibiotic and steroid. He was initially started on IV Unasyn and steroid then switch to Augmentin. He received 5 days course of antibiotic and 5 days course of steroid. Last day of treatment being February 09. Yesterday patient complained of dyspnea, x-ray was order and showed improvement of airspace disease. He still saturating upper 90s on room air. * cont TRC/Nebs * Watch off antibiotic and steroid # Left renal obstruction Asymptomatic obstructed left kidney due to UPJ stone. Risk of surgery for stone removal/stent without sepsis outweighs benefits for this ESRD-dialysis pt. Urology consulted, Dr. Elise. * NTD for now #Anemia most likely 2/2 ESRD * H&h low but stable, cont' monitoring #History of Afib INR is below therapeutic today 1.8. * We will continue Coumadin 5 mg daily * We will dose Coumadin daily # Diabetes mellitus * ISS, finger stick glucose #Bilateral ankle pain No symptom or signs suggestive of gout flare * NTD Renal dialysis diet DVT prophylaxis on warfarin Full code Problem List: 1. End-stage renal disease on hemodialysis Pain Ratin Pain Location: See A&P Pain Goal: Remain pain free Pain Plan: See A&P Tomorrow's Labs & Rationales: no labs as he most likely DC later GUICHOHERMINIA 02/20/17 1205: Attending MD Review Statement Attending Statement Attending MD Statement: examined this patient, discuss w/resident/PA/WOOD MILLING MACHINE TENDER, agreed w/resident/PA/WOOD MILLING MACHINE TENDER, discussed with family, reviewed EMR data (avail), discussed with nursing, discussed with case mgmt, reviewed images, amended to note Attending Assessment/Plan: 72M COPD, recent worsening renal failure now with end-stage renal disease on hemodialysis, paroxysmal atrial fibrillation who is on anticoagulation, chronic heart failure with preserved ejection fraction LVEF of 50%, 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 Plan - ESRD on dialysis, plan as per nephrology, dialysis. - Continue Coumadin INR therapeutic - Continue home medications - dyspnea at rest, repeat chest xray suggestive of right sided worsening infiltrates cmpleted abx as per ID. - left upper extremity edema USG negative for DVT, USG arterial without any significant stenosis but hematoma vs seroma. vascular surgery no acute intervention needed. f/u o/p. d/c planning to STR. arranged HD as o/p, f/u nephrology in 1 week, vascular surgery in 2-3 weeks, PCP in 1 week. awaiting placement. Patient is stable for discharge.
--- NOTE | 2017-02-20 08:30 | NUR ---
PT LEFT FLOOR VIA PTS OWN BED TO DIALYSIS.
[2017-02-20 09:10] LABS: PT 18.9 SEC (9.4-12.5)
--- NOTE | 2017-02-20 09:32 | PN- Nephrology ---
Assessment/Plan Assessment: Still some mild volulme [place]. Suggestion: UF 3 liters today. Subjective Subjective: Still coughing. Seen on dialysis. Objective Vital Signs and I&Os Vital Signs Date Time Temp Pulse Resp B/P Pulse O2 O2 Flow FiO2 Ox Delivery Rate 02/20 0702 98.1 69 20 126/64 98 Room Air 02/20 0101 93 Room Air 02/20 0000 98 Room Air 02/19 2211 98.2 79 20 130/70 98 02/19 2054 96 Room Air 02/19 1419 97.7 83 18 142/70 95 Room Air Intake & Output 02/20 1600 02/20 0400 02/19 1600 02/19 0400 02/18 1600 02/18 0400 Intake Total 300 350 960 480 750 480 Output Total 350 300 500 300 620 0 Balance -50 50 460 180 130 480 Intake, Oral 300 350 960 480 750 480 Output, Other 20 Output, Stool 400 500 Output, Urine 350 300 100 300 100 0 Patient 190 lb 189 lb 186 lb 186 lb Weight Physical Exam: NAD VS as above Lungs: some rhonchi CV: nor rub Abd: non-tender Exts: 1+ dependent edema Neuro: A&O Current Medications: Current Medications Sig/Johnna Start time Last Medication Dose Route Stop Time Status Admin Acetaminophen 650 MG Q4P PRN 01/31 1100 AC 02/17 PO 2348 Albuterol Sulfate 2 PUF Q4P PRN 02/06 0800 AC 02/06 INH 1313 Albuterol Sulfate 3 ML EVERY 4 HRS/AWAKE 02/05 1600 AC 02/20 INH 0439 Calcitriol 0.25 MCG MoWeFr PRN 01/30 0815 AC IV Diclofenac Sodium 1 MAI 4 TIMES/DAY 02/05 1400 AC 02/19 TOP 1820 Epoetin Guzman 4,000 UNIT MoWeFr PRN 01/30 0815 AC IV Furosemide 80 MG DAILY 02/08 1138 AC 02/19 PO 0859 Guaifenesin 600 MG Q12 02/16 1000 AC 02/19 PO 2203 Insulin Aspart 0 AT BEDTIME 02/01 2200 AC 02/16 SC 2138 Insulin Aspart 0 TIDAC 02/01 1200 AC 02/20 SC 0749 Omeprazole 40 MG DAILY AC 02/12 1200 AC 02/20 PO 0609 Patient Medication 1 UNIT ONE NR 02/19 1230 DC Teaching ED 02/19 1300 Sodium Chloride 2 SPRAY Q4P PRN 01/31 0430 AC 02/05 CHULA 2133 Trazodone HCl 50 MG AT BEDTIME 01/30 220 AC 02/19 PO 220 Warfarin Sodium 5 MG COUMADIN 1700 ONE 02/19 1700 DC 02/19 PO 02/19 1701 1819 Results Pertinent Lab Results: Laboratory Tests 02/20 02/19 02/18 0800 0630 0825 Chemistry Sodium Pending Potassium Pending Chloride Pending Carbon Dioxide Pending Anion Gap Pending BUN Pending Creatinine Pending BUN/Creatinine Ratio Pending Calcium Pending Coagulation PT (9.4 - 12.5 SEC) 18.9 H 17.2 H 22.5 H INR (0.90 - 1.17) 1.81 H 1.65 H 2.16 H Hematology CBC w Diff Pending WBC Pending RBC Pending Hgb Pending Hct Pending MCV Pending MCH Pending RDW Pending Plt Count Pending MPV Pending PUBS MCHC Pending 02/17 02/17 1551 1545 Chemistry Sodium (137 - 145 mmol/L) 134 L Potassium (3.5 - 5.1 mmol/L) 5.2 H Chloride (98 - 107 mmol/L) 99 Carbon Dioxide (22 - 30 mmol/L) 24 Anion Gap (5 - 16) 12 BUN (9 - 20 mg/dL) 53 H Creatinine (0.7 - 1.2 mg/dL) 5.2 *H Estimated GFR (>60 ml/min) 11 L BUN/Creatinine Ratio (7 - 25 %) 10.2 Glucose (65 - 99 mg/dL) 168 H Calcium (8.4 - 10.2 mg/dL) 8.3 L Hematology CBC w Diff NO MAN DIFF REQ WBC (4.8 - 10.8 /CUMM) 9.1 RBC (4.70 - 6.10 /CUMM) 3.13 L Hgb (14.0 - 18.0 G/DL) 8.9 L Hct (42 - 52 %) 28.2 L MCV (80.0 - 94.0 FL) 90.2 MCH (27.0 - 31.0 PG) 28.5 RDW (11.5 - 14.5 %) 21.2 H Plt Count (130 - 400 /CUMM) 113 L MPV (7.4 - 10.4 FL) 9.7 Gran % (42.2 - 75.2 %) 77.2 H Lymphocytes % (20.5 - 51.1 %) 10.4 L Monocytes % (1.7 - 9.3 %) 8.1 Eosinophils % (0 - 5 %) 3.8 Basophils % (0.0 - 2.0 %) 0.5 Absolute Granulocytes (1.4 - 6.5 /CUMM) 7.0 H Absolute Lymphocytes (1.2 - 3.4 /CUMM) 0.9 L Absolute Monocytes (0.10 - 0.60 /CUMM) 0.7 H Absolute Eosinophils (0.0 - 0.7 /CUMM) 0.3 Absolute Basophils (0.0 - 0.2 /CUMM) 0 PUBS MCHC (33.0 - 37.0 G/DL) 31.6 L
[2017-02-20 09:41] LABS: ABSOLUTE BASOPHIL COUNT 0 /CUMM (0.0-0.2); ABSOLUTE EOSINOPHIL COUNT 0.4 /CUMM (0.0-0.7); ABSOLUTE GRANULOCYTE CT 7.4 /CUMM (1.4-6.5); ABSOLUTE LYMPH COUNT 0.9 /CUMM (1.2-3.4); BASOPHIL % 0.1 % (0.0-2.0); EOSINOPHIL % 3.9 % (0-5); GRANULOCYTE % 75.8 % (42.2-75.2); HEMATOCRIT 27.7 % (42-52); MEAN CORPUSCULAR HGB CONC 32.8 G/DL (33.0-37.0); MEAN CORPUSCULAR VOLUME 88.5 FL (80.0-94.0); MEAN PLATELET VOLUME 9.4 FL (7.4-10.4); PLATELET COUNT 118 /CUMM (130-400); RBC DISTRIBUTION WIDTH 20.2 % (11.5-14.5); RED BLOOD CELL CT 3.13 /CUMM (4.70-6.10); WHITE BLOOD CELL COUNT 9.7 /CUMM (4.8-10.8)
--- NOTE | 2017-02-20 12:10 | NUR ---
PT ARRIVED TO FLOOR VIA PTS OWN BED FROM DIALYSIS.
[2017-02-20 12:23] VITALS: BP 150/60
--- NOTE | 2017-02-20 13:00 | NUR ---
PT ARRIVED TO FLOOR VIA PTS OWN BED FROM DIALYSIS, AO, RA, NO C/O PAIN, ASHCATH RCW DSG CHANGED AND INTACT, POST DIALYSIS WEIGHT 190.5, BLOOD SUGAR STABLE AND VSS. WILL CONTINUE TO MONITOR.
[2017-02-20 14:34] VITALS: BP 145/68
[2017-02-20] MEDS ORDERED: LOPRESSOR50 M1 PO ×2 (15:42→15:54)
[2017-02-20] MEDS ORDERED: LISINOPRIL2.5 M1 PO (15:42)
[2017-02-20] MEDS ORDERED: ISOSORBIDE MONO30 M1 PO ×2 (15:51→15:54)
[2017-02-20 22:57] VITALS: BP 104/40
[2017-02-21 06:55] VITALS: BP 110/50
[2017-02-21 08:27] LABS: PT 17.9 SEC (9.4-12.5)
--- NOTE | 2017-02-21 08:27 | PN- Housestaff ---
[address],[facility] 02/21/17 0827: Subjective Follow-up For: -Ischemic colitis status post surgical internvention -Hemodialysis -Left arm swelling -Waiting for safe discharge plan Subjective: Afebrile, hemodynamically stable, no overnight events reported. Patient saturating well on room air. Patient is sitting in chair watching TV he looks relaxed and comfortable. Patient is waiting for safe discharge plan. Review of Systems Constitutional: Reports: no symptoms. Objective Last 24 Hrs of Vital Signs/I&O Vital Signs Date Time Temp Pulse Resp B/P Pulse O2 O2 Flow FiO2 Ox Delivery Rate 02/21 1143 96 Room Air 02/21 1000 Nasal Cannula 02/21 0800 Room Air 02/21 0655 98.2 62 20 110/50 93 Room Air 02/21 0630 Room Air 02/21 0000 Room Air 02/20 2257 98.9 60 20 104/40 92 02/20 1625 94 Room Air 02/20 1434 98.7 62 20 145/68 98 Intake & Output 02/21 1600 02/21 0800 02/21 0000 Intake Total 100 100 Output Total 200 125 Balance -100 -25 Intake, Oral 100 100 Output, Stool 200 Output, Urine 125 Patient 83.915 kg 83.915 kg Weight Physical Exam General Appearance: Alert, Oriented X3, Cooperative, No Acute Distress HEENT: Atraumatic, PERRLA, EOMI, Mucous Membr. moist/pink Cardiovascular: Regular Rate, Normal S1, Normal S2, No Murmurs Lungs: wheezing over lungs bilaterally, decreased air entry over lung base B/L Abdomen: Soft, No Tenderness Neurological: Normal Speech Extremities: bilateral +1 lower extremity edema up to the knee, left upper extremity edema Current Medications: Current Medications Sig/Johnna Start time Last Medication Dose Route Stop Time Status Admin Acetaminophen 650 MG Q4P PRN 01/31 1100 AC 02/17 PO 2348 Albuterol Sulfate 2 PUF Q4P PRN 02/06 0800 AC 02/06 INH 1313 Albuterol Sulfate 3 ML EVERY 4 HRS/AWAKE 02/05 1600 AC 02/21 INH 1115 Allopurinol 100 MG DAILY 02/20 1818 AC 02/21 PO 0859 Calcitriol 0.25 MCG MoWeFr PRN 01/30 0815 AC IV Diclofenac Sodium 1 MAI 4 TIMES/DAY 02/05 1400 AC 02/21 TOP 0859 Epoetin Guzman 4,000 UNIT MoWeFr PRN 01/30 0815 AC IV Furosemide 80 MG DAILY 02/08 1138 AC 02/21 PO 0859 Guaifenesin 600 MG Q12 02/16 1000 AC 02/21 PO 0859 Insulin Aspart 0 AT BEDTIME 02/01 2200 AC 02/16 SC 2138 Insulin Aspart 0 TIDAC 02/01 1200 AC 02/21 SC 1150 Omeprazole 40 MG DAILY AC 02/12 1200 AC 02/21 PO 0619 Patient Medication 1 ED .STK-MED ONE 02/20 1352 NC Teaching ED 02/20 1353 Sodium Chloride 2 SPRAY Q4P PRN 01/31 0430 AC 02/05 CHULA 2133 Trazodone HCl 50 MG AT BEDTIME 01/30 2200 AC 02/20 PO 2231 Warfarin Sodium 5 MG COUMADIN 1700 ONE 02/20 1700 NC 02/20 PO 02/20 1701 1756 Last 24 Hrs of Lab/Satnam Results Last 24 Hrs of Labs/Mics: Laboratory Tests 02/21/1715: PT 17.9 H, INR 1.71 H Assessment/Plan Assessment: Plan # S/P exploratory laparotomy with transverse colectomy and end colostomy for ischemic bowel Stable and denies any current complain, colostomy bag clear. Patient denies any current abdominal pain, nausea, or vomiting. * Stable will be instructed to follow-up as an outpatient with surgery service # Left upper extremity swelling sp AV fistula No change since yesterday. Continue arm elevation and patient will follow-up with vascular on outpatient basis, vascular is aware * Continue measure arm and forearm circumference daily. # ESRD on Dialysis MWF * Nephro on board * We will hold antihypertensives on the morning of dialysis. * Continue 2.5 metoprolol and 10 mg of Isosorbide * Continue Lasix 80 mg daily as per nephrology # Hx of COPD At some point during this admission, he was treated for possible pneumonia based on x-ray findings and worsening of dyspnea. Initially he was started on IV Unasyn and steroid then switch to Augmentin. He received 5 days course of antibiotic and 5 days course of steroid. Last day of treatment being February 09. Yesterday patient complained of dyspnea, x-ray was order and showed improvement of airspace disease. He still saturating upper 90s on room air. * cont TRC/Nebs # Left renal obstruction Asymptomatic obstructed left kidney due to UPJ stone. Risk of surgery for stone removal/stent without sepsis outweighs benefits for this ESRD-dialysis pt. Urology consulted, Dr. Elise. * NTD for now #Anemia most likely 2/2 ESRD * H&h low but stable, cont' monitoring #History of Afib INR is below therapeutic today 1.71. * We will continue Coumadin 5 mg daily * We will dose Coumadin daily # Diabetes mellitus * ISS, finger stick glucose #Bilateral ankle pain No symptom or signs suggestive of gout flare * Start allopurinol Renal dialysis diet DVT prophylaxis on warfarin Full code Problem List: 1. Mesenteric ischemia 2. End stage renal disease Pain Ratin Pain Location: na Pain Goal: Remain pain free Pain Plan: See A&P Tomorrow's Labs & Rationales: INR HERMINIA LINDO 02/21/17 1120: Attending MD Review Statement Attending Statement Attending MD Statement: examined this patient, discuss w/resident/PA/BRUSHING OPERATOR, agreed w/resident/PA/BRUSHING OPERATOR, discussed with family, reviewed EMR data (avail), discussed with nursing, discussed with case mgmt, reviewed images, amended to note Attending Assessment/Plan: 72M COPD, recent worsening renal failure now with end-stage renal disease on hemodialysis, paroxysmal atrial fibrillation who is on anticoagulation, chronic heart failure with preserved ejection fraction LVEF of 50%, 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 Plan - ESRD on dialysis, plan as per nephrology, dialysis. - Continue Coumadin INR therapeutic - Continue home medications - dyspnea at rest, repeat chest xray suggestive of right sided worsening infiltrates cmpleted abx as per ID. - left upper extremity edema USG negative for DVT, USG arterial without any significant stenosis but hematoma vs seroma. vascular surgery no acute intervention needed. f/u o/p. d/c planning to STR. arranged HD as o/p, f/u nephrology in 1 week, vascular surgery in 2-3 weeks, PCP in 1 week. awaiting placement. Patient is stable for discharge. Case management had long discussion about discharge planning.
[2017-02-21 13:33] VITALS: BP 98/58
--- NOTE | 2017-02-21 14:59 | NUR ---
ARM MEASUREMENTS: LEFT UPPER ARM: 31 CM LEFT LOWER ARM: 34 CM
--- NOTE | 2017-02-21 15:33 | NUR ---
Aware of meeting which took place yesterday with patient, his friend Vitaly Song, and case management staff. Patient has finally agreed to let Vitaly be part of his care planning. It is clear that Mr. Arias is not able to return home at this time, and an application for T-19 for LTC is needed. Mr. Arias has finally agreed, and Vitaly will be willing to assist with this process. Lexus Caro, senior government program analyst provided Mr. Cox with a list of required paperwork for T-19 application. Call placed to Mr. Song; await return call.
[2017-02-21 23:26] VITALS: BP 118/50
[2017-02-22 06:47] VITALS: BP 98/56
--- NOTE | 2017-02-22 07:10 | PN- Housestaff ---
See Addendum Subjective Follow-up For: -Ischemic colitis status post surgical internvention -Hemodialysis -Left arm swelling -Waiting for safe discharge plan Subjective: Afebrile, hemodynamically stable, no overnight events reported. Patient saturating well on room air. He looks sad but he denies any current active complaints. Patient is waiting for safe discharge plan. Review of Systems Constitutional: Reports: no symptoms. Objective Last 24 Hrs of Vital Signs/I&O Vital Signs Date Time Temp Pulse Resp B/P B/P Pulse O2 O2 Flow FiO2 Mean Ox Delivery Rate 02/22 1916 93 Room Air 02/22 1827 94 Room Air 02/22 1600 Room Air 02/22 1256 98.0 62 18 122/60 93 Room Air 02/22 0811 94 Room Air Room Air 02/22 0647 98.3 63 21 98/56 94 Room Air 02/22 0030 94 Room Air 02/22 0000 93 Room Air 02/21 2326 98.9 59 20 118/50 93 Room Air Intake & Output 02/22 1600 02/22 0800 02/22 0000 Intake Total 600 50 450 Output Total 2700 0 Balance -2100 50 450 Intake, IV 0 Intake, Oral 600 50 450 Output, 2500 Dialysate Output, Stool 200 0 Patient 82.242 kg 84.51 kg Weight Weight Standing Scale Measurement Method Physical Exam General Appearance: Alert, Oriented X3, Cooperative, No Acute Distress HEENT: Atraumatic, PERRLA, EOMI, Mucous Membr. moist/pink Cardiovascular: Regular Rate, Normal S1, Normal S2, No Murmurs Lungs: rhonchi Abdomen: Soft, No Tenderness Neurological: Normal Speech Extremities: +1 edema Current Medications: Current Medications Sig/Johnna Start time Last Medication Dose Route Stop Time Status Admin Acetaminophen 650 MG .STK-MED ONE 02/22 2108 DC PO 02/21 2109 Acetaminophen 650 MG Q4P PRN 01/31 1100 AC 02/22 PO 181 Albuterol Sulfate 2 PUF Q4P PRN 02/06 0800 AC 02/06 INH 1313 Albuterol Sulfate 3 ML EVERY 4 HRS/AWAKE 02/05 1600 AC 02/22 INH 1912 Allopurinol 100 MG DAILY 02/20 1818 AC 02/22 PO 1333 Calcitriol 0.25 MCG MoWeFr PRN 01/30 0815 AC IV Diclofenac Sodium 1 MAI 4 TIMES/DAY 02/05 1400 AC 02/22 TOP 1805 Epoetin Guzman 4,000 UNIT MoWeFr PRN 01/30 0815 AC IV Furosemide 80 MG DAILY 02/08 1138 AC 02/22 PO 1333 Guaifenesin 600 MG Q12 02/16 1000 AC 02/22 PO 1333 Insulin Aspart 0 AT BEDTIME 02/01 2200 AC 02/16 SC 2138 Insulin Aspart 0 TIDAC 02/01 1200 AC 02/22 SC 1805 Omeprazole 40 MG DAILY AC 02/12 1200 AC 02/22 PO 0644 Sodium Chloride 2 SPRAY Q4P PRN 01/31 0430 AC 02/05 CHULA 2133 Trazodone HCl 50 MG AT BEDTIME 01/30 2200 AC 02/21 PO 2108 Warfarin Sodium 5 MG COUMADIN 1700 ONE 02/22 1700 DC 02/22 PO 02/22 1701 1805 Last 24 Hrs of Lab/Satnam Results Last 24 Hrs of Labs/Mics: Laboratory Tests 02/22/17 1215: Estimated GFR 40 L, BUN/Creatinine Ratio 5.9 L 02/22/17 0840: Anion Gap 15, Estimated GFR 11 L, BUN/Creatinine Ratio 8.1, PT 20.6 H, INR 1.98 H, CBC w Diff NO MAN DIFF REQ, RBC 3.07 L, MCV 88.5, MCH 28.8, RDW 20.0 H, MPV 9.4, Gran % 69.3, Lymphocytes % 14.7 L, Monocytes % 11.3 H, Eosinophils % 4.3, Basophils % 0.4, Absolute Granulocytes 6.5, Absolute Lymphocytes 1.4, Absolute Monocytes 1.1 H, Absolute Eosinophils 0.4, Absolute Basophils 0, PUBS MCHC 32.5 L Assessment/Plan Assessment: Plan # S/P exploratory laparotomy with transverse colectomy and end colostomy for ischemic bowel Stable and denies any current complain, colostomy bag clear. Patient denies any current abdominal pain, nausea, or vomiting. * Stable will be instructed to follow-up as an outpatient with surgery service # Left upper extremity swelling sp AV fistula No change since yesterday. Continue arm elevation and patient will follow-up with vascular on outpatient basis, vascular is aware * Continue measure arm and forearm circumference daily. # ESRD on Dialysis MWF * Nephro on board * We will hold antihypertensives on the morning of dialysis. # Hx of COPD At some point during this admission, he was treated for possible pneumonia based on x-ray findings and worsening of dyspnea. Initially he was started on IV Unasyn and steroid then switch to Augmentin. He received 5 days course of antibiotic and 5 days course of steroid. Last day of treatment being February 09. Yesterday patient complained of dyspnea, x-ray was order and showed improvement of airspace disease. He still saturating upper 90s on room air. * cont TRC/Nebs # Left renal obstruction Asymptomatic obstructed left kidney due to UPJ stone. Risk of surgery for stone removal/stent without sepsis outweighs benefits for this ESRD-dialysis pt. Urology consulted, Dr. Elise. * NTD for now #Anemia most likely 2/2 ESRD * H&h low but stable, cont' monitoring #History of Afib INR is below therapeutic today 1.9 * We will continue Coumadin 5 mg daily * We will dose Coumadin daily # Diabetes mellitus * ISS, finger stick glucose #Bilateral ankle pain No symptom or signs suggestive of gout flare * Start allopurinol Renal dialysis diet DVT prophylaxis on warfarin Full code Problem List: 1. End-stage renal disease on hemodialysis Pain Ratin Pain Location: na Pain Goal: Remain pain free Pain Plan: See A&P Tomorrow's Labs & Rationales: inr
--- NOTE | 2017-02-22 08:43 | PN- Nephrology ---
Assessment/Plan Assessment: Looks stable today and although BP low on floor, initial bp here over 120 systolic Suggestion: UF 2.5 liters today. Subjective Subjective: Still with rhoncherous cough but no other new complaints. States he is eating. Has right leg pain which he states is limiting his mobility. Objective Vital Signs and I&Os Vital Signs Date Time Temp Pulse Resp B/P B/P Pulse O2 O2 Flow FiO2 Mean Ox Delivery Rate 02/22 0811 94 Room Air Room Air 02/22 0647 98.3 63 21 98/56 94 Room Air 02/22 0030 94 Room Air 02/21 2326 98.9 59 20 118/50 93 Room Air 02/21 2005 96 Room Air 02/21 1333 98.0 60 22 98/58 96 02/21 1143 96 Room Air 02/21 1000 Nasal Cannula Intake & Output 02/22 1600 02/22 0400 02/21 1600 02/21 0400 02/20 1600 02/20 0400 Intake Total 450 600 100 540 350 Output Total 374 369 2137 300 Balance 450 50 Intake, Oral 450 600 100 540 350 Output, 2800 Dialysate Output, Stool 450 Output, Urine 125 350 300 Patient 186 lb 185 lb 185 lb 190 lb Weight Physical Exam: NAD VS as above Lungs: some rhonchi CV: nor rub Abd: non-tender Exts: no edema except left arm. Bruit over left arm. Neuro: A&O Current Medications: Current Medications Sig/Johnna Start time Last Medication Dose Route Stop Time Status Admin Acetaminophen 650 MG .STK-MED ONE 02/21 210 DC PO 02/21 210 Acetaminophen 650 MG Q4P PRN 01/31 1100 AC 02/21 PO 2108 Albuterol Sulfate 2 PUF Q4P PRN 02/06 0800 AC 02/06 INH 1313 Albuterol Sulfate 3 ML EVERY 4 HRS/AWAKE 02/05 1600 AC 02/22 INH 0809 Allopurinol 100 MG DAILY 02/20 1818 AC 02/21 PO 0859 Calcitriol 0.25 MCG MoWeFr PRN 01/30 0815 AC IV Diclofenac Sodium 1 MAI 4 TIMES/DAY 02/05 1400 AC 02/21 TOP 2109 Epoetin Guzman 4,000 UNIT MoWeFr PRN 01/30 0815 AC IV Furosemide 80 MG DAILY 02/08 1138 AC 02/21 PO 0859 Guaifenesin 600 MG Q12 02/16 1000 AC 02/21 PO 210 Insulin Aspart 0 AT BEDTIME 02/01 2200 AC 02/16 SC 2137 Insulin Aspart 0 TIDAC 02/01 1200 AC 02/21 SC 1731 Omeprazole 40 MG DAILY AC 02/12 1200 AC 02/22 PO 0644 Sodium Chloride 2 SPRAY Q4P PRN 01/31 0430 AC 02/05 CHULA 213 Trazodone HCl 50 MG AT BEDTIME 01/30 2200 AC 02/21 PO 210 Warfarin Sodium 5 MG COUMADIN 1700 ONE 02/21 1700 DC 02/21 PO 02/21 1701 1731 Results Pertinent Lab Results: Laboratory Tests 02/21 02/20 0615 0800 Chemistry Sodium (137 - 145 mmol/L) 136 L Potassium (3.5 - 5.1 mmol/L) 5.6 H Chloride (98 - 107 mmol/L) 100 Carbon Dioxide (22 - 30 mmol/L) 22 Anion Gap (5 - 16) 13 BUN (9 - 20 mg/dL) 59 H Creatinine (0.7 - 1.2 mg/dL) 4.8 H Estimated GFR (>60 ml/min) 12 L BUN/Creatinine Ratio (7 - 25 %) 12.3 Calcium (8.4 - 10.2 mg/dL) 8.9 Coagulation PT (9.4 - 12.5 SEC) 17.9 H 18.9 H INR (0.90 - 1.17) 1.71 H 1.81 H Hematology CBC w Diff NO MAN DIFF REQ WBC (4.8 - 10.8 /CUMM) 9.7 RBC (4.70 - 6.10 /CUMM) 3.13 L Hgb (14.0 - 18.0 G/DL) 9.1 L Hct (42 - 52 %) 27.7 L MCV (80.0 - 94.0 FL) 88.5 MCH (27.0 - 31.0 PG) 29.0 RDW (11.5 - 14.5 %) 20.2 H Plt Count (130 - 400 /CUMM) 118 L MPV (7.4 - 10.4 FL) 9.4 Gran % (42.2 - 75.2 %) 75.8 H Lymphocytes % (20.5 - 51.1 %) 9.5 L Monocytes % (1.7 - 9.3 %) 10.7 H Eosinophils % (0 - 5 %) 3.9 Basophils % (0.0 - 2.0 %) 0.1 Absolute Granulocytes (1.4 - 6.5 /CUMM) 7.4 H Absolute Lymphocytes (1.2 - 3.4 /CUMM) 0.9 L Absolute Monocytes (0.10 - 0.60 /CUMM) 1.0 H Absolute Eosinophils (0.0 - 0.7 /CUMM) 0.4 Absolute Basophils (0.0 - 0.2 /CUMM) 0 PUBS MCHC (33.0 - 37.0 G/DL) 32.8 L
[2017-02-22 10:49] LABS: ABSOLUTE BASOPHIL COUNT 0 /CUMM (0.0-0.2); ABSOLUTE EOSINOPHIL COUNT 0.4 /CUMM (0.0-0.7); ABSOLUTE GRANULOCYTE CT 6.5 /CUMM (1.4-6.5); ABSOLUTE LYMPH COUNT 1.4 /CUMM (1.2-3.4); ABSOLUTE MONOCYTE COUNT 1.1 /CUMM (0.10-0.60); BASOPHIL % 0.4 % (0.0-2.0); EOSINOPHIL % 4.3 % (0-5); GRANULOCYTE % 69.3 % (42.2-75.2); HEMATOCRIT 27.2 % (42-52); MEAN CORPUSCULAR HGB 28.8 PG (27.0-31.0); MEAN CORPUSCULAR HGB CONC 32.5 G/DL (33.0-37.0); MEAN CORPUSCULAR VOLUME 88.5 FL (80.0-94.0); MEAN PLATELET VOLUME 9.4 FL (7.4-10.4); PLATELET COUNT 119 /CUMM (130-400); RED BLOOD CELL CT 3.07 /CUMM (4.70-6.10); WHITE BLOOD CELL COUNT 9.4 /CUMM (4.8-10.8)
[2017-02-22 10:59] LABS: PT 20.6 SEC (9.4-12.5)
[2017-02-22 12:56] VITALS: BP 122/60
--- NOTE | 2017-02-22 16:01 | NUR ---
LEFT ARM MEASUREMENT UPPER ARM: 34 CM LOWER ARM: 31 CM
[2017-02-22 22:00] VITALS: BP 104/38
--- NOTE | 2017-02-22 22:59 | NUR ---
PTS BLOOD PRESSURE 104/40 MANUALLY AND PT REPORTS FEELING DIZZY. FORM SETTER [employer] FORMS KIIN NOTIFIED. PER KIN, DO ORTHOSTATICS AND RECHECK PTS BLOOD PRESSURE AT 1200 AM. WILL PASS ON REPORT TO NEXT SHIFT RN & CONTINUE TO MONITOR.
[2017-02-22 23:11] VITALS: BP 104/40
[2017-02-23 01:00] VITALS: BP 130/60
[2017-02-23 06:46] VITALS: BP 116/70
--- NOTE | 2017-02-23 08:52 | PN- Nephrology ---
Assessment/Plan Assessment: Stable today and trying to finalize discharge plans. Suggestion: No dialysis today, next treatment tomorrow alhtough may be switching to TTS shift as outpatient. Subjective Subjective: No new complalints today. Tolerated 2.5 liters off yesterday. Objective Vital Signs and I&Os Vital Signs Date Time Temp Pulse Resp B/P B/P Pulse O2 O2 Flow FiO2 Mean Ox Delivery Rate 02/23 0829 Room Air 02/23 0646 98.2 61 18 116/70 93 Room Air 02/23 0209 94 Room Air 02/22 2311 98.1 104/40 02/22 2200 99.8 64 18 104/38 92 Room Air 02/22 1916 93 Room Air 02/22 1827 94 Room Air 02/22 1600 Room Air 02/22 1256 98.0 62 18 122/60 93 Room Air Intake & Output 02/23 1600 02/23 0400 02/22 1600 02/22 0400 02/21 1600 02/21 0400 Intake Total 600 650 450 600 100 Output Total 300 2700 450 125 Balance 300 -2050 450 150 -25 Intake, IV 0 Intake, Oral 600 650 450 600 100 Output, 2500 Dialysate Output, Stool 300 200 450 Output, Urine 125 Patient 184 lb 181 lb 185 lb 185 lb Weight Weight Standing Scale Standing Scale Measurement Method Physical Exam: NAD VS as above Lungs: some rhonchi CV: nor rub Abd: non-tender Exts: trace pretibial edema as well as edema of left arm. Bruit over left arm. Neuro: A&O Current Medications: Current Medications Sig/Johnna Start time Last Medication Dose Route Stop Time Status Admin Acetaminophen 650 MG .STK-MED ONE 02/22 1811 DC PO 02/23 1812 Acetaminophen 650 MG Q4P PRN 01/31 1100 AC 02/22 PO 181 Albuterol Sulfate 2 PUF Q4P PRN 02/06 0800 AC 02/06 INH 1313 Albuterol Sulfate 3 ML EVERY 4 HRS/AWAKE 02/05 1600 AC 02/23 INH 0812 Allopurinol 100 MG DAILY 02/20 1818 AC 02/22 PO 1333 Calcitriol 0.25 MCG MoWeFr PRN 01/30 0815 AC IV Diclofenac Sodium 1 MAI 4 TIMES/DAY 02/05 1400 AC 02/22 TOP 1805 Epoetin Guzman 4,000 UNIT MoWeFr PRN 01/30 0815 AC IV Furosemide 80 MG DAILY 02/08 1138 AC 02/22 PO 1333 Guaifenesin 600 MG Q12 02/16 1000 AC 02/22 PO 2116 Guaifenesin/ 10 ML Q6P PRN 02/22 2130 AC 02/23 Dextromethorphan PO 0635 Insulin Aspart 0 AT BEDTIME 02/01 2200 AC 02/16 SC 2138 Insulin Aspart 0 TIDAC 02/01 1200 AC 02/22 SC 1805 Omeprazole 40 MG DAILY AC 02/12 1200 AC 02/23 PO 0627 Sodium Chloride 2 SPRAY Q4P PRN 01/31 0430 AC 02/05 CHULA 2133 Trazodone HCl 50 MG AT BEDTIME 01/30 2200 AC 02/22 PO 211 Warfarin Sodium 5 MG COUMADIN 1700 ONE 02/22 1700 DC 02/22 PO 02/22 1701 1805 Results Pertinent Lab Results: Laboratory Tests 02/23 02/22 02/22 0720 1215 0856 Chemistry Sodium Cancelled Potassium Cancelled Chloride Cancelled Carbon Dioxide Cancelled Anion Gap Cancelled BUN (9 - 20 mg/dL) 10 Cancelled Creatinine (0.7 - 1.2 mg/dL) 1.7 H Cancelled Estimated GFR (>60 ml/min) 40 L BUN/Creatinine Ratio (7 - 25 %) 5.9 L Cancelled Coagulation PT (9.4 - 12.5 SEC) 24.0 H INR (0.90 - 1.17) 2.30 H Hematology CBC w Diff Cancelled WBC Cancelled RBC Cancelled Hgb Cancelled Hct Cancelled MCV Cancelled MCH Cancelled RDW Cancelled Plt Count Cancelled MPV Cancelled PUBS MCHC Cancelled 02/22 02/22 02/21 0840 0600 0615 Chemistry Sodium (137 - 145 mmol/L) 135 L Cancelled Potassium (3.5 - 5.1 mmol/L) 4.8 Cancelled Chloride (98 - 107 mmol/L) 96 L Cancelled Carbon Dioxide (22 - 30 mmol/L) 24 Cancelled Anion Gap (5 - 16) 15 Cancelled BUN (9 - 20 mg/dL) 43 H Cancelled Creatinine (0.7 - 1.2 mg/dL) 5.3 *H Cancelled Estimated GFR (>60 ml/min) 11 L BUN/Creatinine Ratio (7 - 25 %) 8.1 Cancelled Coagulation PT (9.4 - 12.5 SEC) 20.6 H 17.9 H INR (0.90 - 1.17) 1.98 H 1.71 H Hematology CBC w Diff NO MAN DIFF REQ WBC (4.8 - 10.8 /CUMM) 9.4 RBC (4.70 - 6.10 /CUMM) 3.07 L Hgb (14.0 - 18.0 G/DL) 8.8 L Hct (42 - 52 %) 27.2 L MCV (80.0 - 94.0 FL) 88.5 MCH (27.0 - 31.0 PG) 28.8 RDW (11.5 - 14.5 %) 20.0 H Plt Count (130 - 400 /CUMM) 119 L MPV (7.4 - 10.4 FL) 9.4 Gran % (42.2 - 75.2 %) 69.3 Lymphocytes % (20.5 - 51.1 %) 14.7 L Monocytes % (1.7 - 9.3 %) 11.3 H Eosinophils % (0 - 5 %) 4.3 Basophils % (0.0 - 2.0 %) 0.4 Absolute Granulocytes (1.4 - 6.5 /CUMM) 6.5 Absolute Lymphocytes (1.2 - 3.4 /CUMM) 1.4 Absolute Monocytes (0.10 - 0.60 /CUMM) 1.1 H Absolute Eosinophils (0.0 - 0.7 /CUMM) 0.4 Absolute Basophils (0.0 - 0.2 /CUMM) 0 PUBS MCHC (33.0 - 37.0 G/DL) 32.5 L
--- NOTE | 2017-02-23 09:30 | NUR ---
Left arm circumference checked: left forearm: 28 cm, left upper arm: 30 cm Continuing to elevate on pillows. +Radial pulse.
[2017-02-23 09:45] VITALS: BP 110/64
--- NOTE | 2017-02-23 09:45 | NUR ---
Patient sitting in recliner reported feeling lightheaded. Assisted back to bed. HOB up. Call puri in reach. BP 110/64, P 62. No complaints of chest pain. Notified Dr. Wall #[phone]. Will continue to monitor.
--- NOTE | 2017-02-23 12:52 | PN- Housestaff ---
[address]2: Subjective Follow-up For: -Ischemic colitis status post surgical internvention -Hemodialysis -Left arm swelling -Waiting for safe discharge plan Subjective: Afebrile, hemodynamically stable, no overnight events reported. Patient saturating well on room air. He looks sad but he denies any current active complaints. Patient is waiting for safe discharge plan. Review of Systems Constitutional: Reports: no symptoms. Objective Last 24 Hrs of Vital Signs/I&O Vital Signs Date Time Temp Pulse Resp B/P B/P Pulse O2 O2 Flow FiO2 Mean Ox Delivery Rate 02/23 0945 62 110/64 02/23 0829 Room Air 02/23 0800 Room Air 02/23 0646 98.2 61 18 116/70 93 Room Air 02/23 0209 94 Room Air 02/23 0100 130/60 02/23 0000 Room Air 02/22 2311 98.1 104/40 02/22 2200 99.8 64 18 104/38 92 Room Air 02/22 1916 93 Room Air 02/22 1827 94 Room Air 02/22 1600 Room Air Intake & Output 02/23 1600 02/23 0800 02/23 0000 Intake Total 100 600 Output Total 300 250 300 Balance -300 -150 300 Intake, IV 0 Intake, Oral 100 600 Output, Stool 300 200 300 Output, Urine 50 Patient 83.603 kg Weight Weight Standing Scale Measurement Method Physical Exam General Appearance: Alert, Oriented X3, Cooperative, No Acute Distress HEENT: Atraumatic, PERRLA, EOMI, Mucous Membr. moist/pink Cardiovascular: Regular Rate, Normal S1, Normal S2, No Murmurs Lungs: Clear to Auscultation, Normal Air Movement Abdomen: Soft, No Tenderness Neurological: Normal Gait, Normal Speech Extremities: No Clubbing, No Cyanosis, LE edema Current Medications: Current Medications Sig/Johnna Start time Last Medication Dose Route Stop Time Status Admin Acetaminophen 650 MG .STK-MED ONE 02/22 1811 DC PO 02/23 1812 Acetaminophen 650 MG Q4P PRN 01/31 1100 AC 02/22 PO 181 Albuterol Sulfate 2 PUF Q4P PRN 02/06 0800 AC 02/06 INH 1313 Albuterol Sulfate 3 ML EVERY 4 HRS/AWAKE 02/05 1600 AC 02/23 INH 1204 Allopurinol 100 MG DAILY 02/20 1818 AC 02/23 PO 0848 Calcitriol 0.25 MCG MoWeFr PRN 01/30 0815 AC IV Diclofenac Sodium 1 MAI 4 TIMES/DAY 02/05 1400 AC 02/22 TOP 1805 Epoetin Guzman 4,000 UNIT MoWeFr PRN 01/30 0815 AC IV Furosemide 80 MG DAILY 02/08 1138 AC 02/23 PO 0848 Guaifenesin 600 MG Q12 02/16 1000 AC 02/23 PO 0848 Guaifenesin/ 10 ML Q6P PRN 02/22 2130 AC 02/23 Dextromethorphan PO 0635 Insulin Aspart 0 AT BEDTIME 02/01 2200 AC 02/16 SC 2138 Insulin Aspart 0 TIDAC 02/01 1200 AC 02/23 SC 1212 Omeprazole 40 MG DAILY AC 02/12 1200 AC 02/23 PO 0627 Patient Medication 1 ED ONE ONE 02/23 1345 DC Teaching ED 02/23 1346 Sodium Chloride 2 SPRAY Q4P PRN 01/31 0430 AC 02/05 CHULA 2133 Trazodone HCl 50 MG AT BEDTIME 01/30 2200 AC 02/22 PO 2116 Warfarin Sodium 5 MG COUMADIN 1700 ONE 02/22 1700 DC 02/22 PO 02/22 1701 1805 Last 24 Hrs of Lab/Satnam Results Last 24 Hrs of Labs/Mics: Laboratory Tests 02/23/17 0720: PT 24.0 H, INR 2.30 H Assessment/Plan Assessment: Plan # S/P exploratory laparotomy with transverse colectomy and end colostomy for ischemic bowel Stable and denies any current complain, colostomy bag clear. Patient denies any current abdominal pain, nausea, or vomiting. * Stable will be instructed to follow-up as an outpatient with surgery service # Left upper extremity swelling sp AV fistula No change since yesterday. Continue arm elevation and patient will follow-up with vascular on outpatient basis, vascular is aware * Continue measure arm and forearm circumference daily. # ESRD on Dialysis MWF * Nephro on board * We will hold antihypertensives on the morning of dialysis. # Hx of COPD At some point during this admission, he was treated for possible pneumonia based on x-ray findings and worsening of dyspnea. Initially he was started on IV Unasyn and steroid then switch to Augmentin. He received 5 days course of antibiotic and 5 days course of steroid. Last day of treatment being February 09. Yesterday patient complained of dyspnea, x-ray was order and showed improvement of airspace disease. He still saturating upper 90s on room air. * cont TRC/Nebs # Left renal obstruction Asymptomatic obstructed left kidney due to UPJ stone. Risk of surgery for stone removal/stent without sepsis outweighs benefits for this ESRD-dialysis pt. Urology consulted, Dr. Elise. * NTD for now #Anemia most likely 2/2 ESRD * H&h low but stable, cont' monitoring #History of Afib INR is below therapeutic today 2.3 * We will continue Coumadin 5 mg daily * We will dose Coumadin daily # Diabetes mellitus * ISS, finger stick glucose #Bilateral ankle pain No symptom or signs suggestive of gout flare * Start allopurinol Renal dialysis diet DVT prophylaxis on warfarin Full code Problem List: 1. End stage renal disease Pain Ratin Pain Location: Knees and ankles Pain Goal: Remain pain free Pain Plan: The assessment and plan Tomorrow's Labs & Rationales: INR 2 dose Coumadin HERMINIA LINDO 02/23/17 1306: Attending MD Review Statement Attending Statement Attending MD Statement: examined this patient, discuss w/resident/PA/[employer]OR D[employer]ER [employer] DEBURRER, agreed w/resident/PA/[employer]RI[employer] DEBURRER, discussed with family, reviewed EMR data (avail), discussed with nursing, discussed with case mgmt, reviewed images, amended to note Attending Assessment/Plan: 72M COPD, recent worsening renal failure now with end-stage renal disease on hemodialysis, paroxysmal atrial fibrillation who is on anticoagulation, chronic heart failure with preserved ejection fraction LVEF of 50%, 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 Plan - ESRD on dialysis, plan as per nephrology, dialysis. - Continue Coumadin INR therapeutic - Continue home medications - dyspnea at rest, repeat chest xray suggestive of right sided worsening infiltrates cmpleted abx as per ID. - left upper extremity edema USG negative for DVT, USG arterial without any significant stenosis but hematoma vs seroma. vascular surgery no acute intervention needed. f/u o/p. d/c planning to STR. arranged HD as o/p, f/u nephrology in 1 week, vascular surgery in 2-3 weeks, PCP in 1 week. awaiting placement. Patient is stable for discharge. Case management had long discussion about discharge planning.
[2017-02-23 14:26] VITALS: BP 112/60
[2017-02-23 22:26] VITALS: BP 114/60
[2017-02-24 06:26] VITALS: BP 120/50
--- NOTE | 2017-02-24 07:45 | PN- Housestaff ---
Assessment/Plan Assessment: Plan # S/P exploratory laparotomy with transverse colectomy and end colostomy for ischemic bowel Stable and denies any current complain, colostomy bag clear. Patient denies any current abdominal pain, nausea, or vomiting. * Stable will be instructed to follow-up as an outpatient with surgery service # Left upper extremity swelling sp AV fistula No change since yesterday. Continue arm elevation and patient will follow-up with vascular on outpatient basis, vascular is aware * Continue measure arm and forearm circumference daily. # ESRD on Dialysis MWF * Nephro on board * We will hold antihypertensives on the morning of dialysis. # Hx of COPD At some point during this admission, he was treated for possible pneumonia based on x-ray findings and worsening of dyspnea. Initially he was started on IV Unasyn and steroid then switch to Augmentin. He received 5 days course of antibiotic and 5 days course of steroid. Last day of treatment being February 09. Yesterday patient complained of dyspnea, x-ray was order and showed improvement of airspace disease. He still saturating upper 90s on room air. * cont TRC/Nebs # Left renal obstruction Asymptomatic obstructed left kidney due to UPJ stone. Risk of surgery for stone removal/stent without sepsis outweighs benefits for this ESRD-dialysis pt. Urology consulted, Dr. Elise. * NTD for now #Anemia most likely 2/2 ESRD * H&h low but stable, cont' monitoring #History of Afib INR is below therapeutic today 2.3 * We will continue Coumadin 5 mg daily * We will dose Coumadin daily # Diabetes mellitus * ISS, finger stick glucose #Bilateral ankle pain No symptom or signs suggestive of gout flare * Start allopurinol Renal dialysis diet DVT prophylaxis on warfarin Full code
--- NOTE | 2017-02-24 09:13 | PN- Nephrology ---
Assessment/Plan Assessment: Getting more fluid overloaded. To aid in trasnportation he is being chagned to a 10:30 AM TTS slot. Suggestion: Diallysis today, again tomorrow because of volume overload and need to switch treatment schedule. Reinforced potassium restriction. Subjective Subjective: He states there are now definitive discharge plans. He was eating a bananna for breakfast despite being on a potassium restricted diet. Objective Vital Signs and I&Os Vital Signs Date Time Temp Pulse Resp B/P B/P Pulse O2 O2 Flow FiO2 Mean Ox Delivery Rate 02/24 0748 95 Room Air Room Air 02/24 0626 98.1 60 20 120/50 92 Room Air 02/24 0053 93 Room Air 02/23 2226 98.1 60 20 114/60 94 Room Air 02/23 1600 Room Air 02/23 1558 95 Room Air Room Air 02/23 1426 98.3 62 20 112/60 94 02/23 0945 62 110/64 Intake & Output 02/24 1600 02/24 0400 02/23 1600 02/23 0400 02/22 1600 02/22 0400 Intake Total 700 660 600 650 450 Output Total 800 943 079 3461 Balance -100 110 300 -2050 450 Intake, IV 0 0 Intake, Oral 700 660 600 650 450 Output, 2500 Dialysate Output, Stool 200 500 300 200 Output, Urine 600 50 Patient 186 lb 184 lb 181 lb Weight Weight Standing Scale Standing Scale Measurement Method Physical Exam: NAD VS as above Lungs: some rhonchi CV: nor rub Abd: non-tender Exts: 1-2 pretibial edema as well as edema of left arm. Bruit over left arm. Neuro: A&O Current Medications: Current Medications Sig/Johnna Start time Last Medication Dose Route Stop Time Status Admin Acetaminophen 650 MG Q4P PRN 01/31 1100 AC 02/22 PO 1811 Albuterol Sulfate 2 PUF Q4P PRN 02/06 0800 AC 02/06 INH 1313 Albuterol Sulfate 3 ML EVERY 4 HRS/AWAKE 02/05 1600 AC 02/24 INH 0745 Allopurinol 100 MG DAILY 02/20 1818 AC 02/23 PO 0848 Calcitriol 0.25 MCG MoWeFr PRN 01/30 0815 AC IV Diclofenac Sodium 1 MAI 4 TIMES/DAY 02/05 1400 AC 02/22 TOP 1805 Epoetin Guzman 4,000 UNIT MoWeFr PRN 01/30 0815 AC IV Furosemide 80 MG DAILY 02/08 1138 AC 02/23 PO 0848 Guaifenesin 600 MG Q12 02/16 1000 AC 02/23 PO 2130 Guaifenesin/ 10 ML Q6P PRN 02/22 2130 AC 02/23 Dextromethorphan PO 213 Insulin Aspart 0 AT BEDTIME 02/01 2200 AC 02/16 SC 2138 Insulin Aspart 0 TIDAC 02/01 1200 AC 02/24 SC 0755 Omeprazole 40 MG DAILY AC 02/12 1200 AC 02/24 PO 0615 Patient Medication 1 ED ONE ONE 02/23 1345 DC 02/23 Teaching ED 02/23 1346 1416 Sodium Chloride 2 SPRAY Q4P PRN 01/31 0430 AC 02/05 CHULA 2133 Trazodone HCl 50 MG AT BEDTIME 01/30 2200 AC 02/23 PO 2130 Warfarin Sodium 5 MG COUMADIN 1700 ONE 02/23 1700 DC 02/23 PO 02/23 1701 1741 Results Pertinent Lab Results: Laboratory Tests 02/23 02/22 02/22 0720 1215 0856 Chemistry Sodium Cancelled Potassium Cancelled Chloride Cancelled Carbon Dioxide Cancelled Anion Gap Cancelled BUN (9 - 20 mg/dL) 10 Cancelled Creatinine (0.7 - 1.2 mg/dL) 1.7 H Cancelled Estimated GFR (>60 ml/min) 40 L BUN/Creatinine Ratio (7 - 25 %) 5.9 L Cancelled Coagulation PT (9.4 - 12.5 SEC) 24.0 H INR (0.90 - 1.17) 2.30 H Hematology CBC w Diff Cancelled WBC Cancelled RBC Cancelled Hgb Cancelled Hct Cancelled MCV Cancelled MCH Cancelled RDW Cancelled Plt Count Cancelled MPV Cancelled PUBS MCHC Cancelled 02/22 02/22 0840 0600 Chemistry Sodium (137 - 145 mmol/L) 135 L Cancelled Potassium (3.5 - 5.1 mmol/L) 4.8 Cancelled Chloride (98 - 107 mmol/L) 96 L Cancelled Carbon Dioxide (22 - 30 mmol/L) 24 Cancelled Anion Gap (5 - 16) 15 Cancelled BUN (9 - 20 mg/dL) 43 H Cancelled Creatinine (0.7 - 1.2 mg/dL) 5.3 *H Cancelled Estimated GFR (>60 ml/min) 11 L BUN/Creatinine Ratio (7 - 25 %) 8.1 Cancelled Coagulation PT (9.4 - 12.5 SEC) 20.6 H INR (0.90 - 1.17) 1.98 H Hematology CBC w Diff NO MAN DIFF REQ WBC (4.8 - 10.8 /CUMM) 9.4 RBC (4.70 - 6.10 /CUMM) 3.07 L Hgb (14.0 - 18.0 G/DL) 8.8 L Hct (42 - 52 %) 27.2 L MCV (80.0 - 94.0 FL) 88.5 MCH (27.0 - 31.0 PG) 28.8 RDW (11.5 - 14.5 %) 20.0 H Plt Count (130 - 400 /CUMM) 119 L MPV (7.4 - 10.4 FL) 9.4 Gran % (42.2 - 75.2 %) 69.3 Lymphocytes % (20.5 - 51.1 %) 14.7 L Monocytes % (1.7 - 9.3 %) 11.3 H Eosinophils % (0 - 5 %) 4.3 Basophils % (0.0 - 2.0 %) 0.4 Absolute Granulocytes (1.4 - 6.5 /CUMM) 6.5 Absolute Lymphocytes (1.2 - 3.4 /CUMM) 1.4 Absolute Monocytes (0.10 - 0.60 /CUMM) 1.1 H Absolute Eosinophils (0.0 - 0.7 /CUMM) 0.4 Absolute Basophils (0.0 - 0.2 /CUMM) 0 PUBS MCHC (33.0 - 37.0 G/DL) 32.5 L
[2017-02-24 14:00] VITALS: BP 120/66
[2017-02-24 14:26] LABS: ABSOLUTE BASOPHIL COUNT 0.1 /CUMM (0.0-0.2); ABSOLUTE EOSINOPHIL COUNT 0.3 /CUMM (0.0-0.7); ABSOLUTE GRANULOCYTE CT 6.8 /CUMM (1.4-6.5); ABSOLUTE LYMPH COUNT 1.1 /CUMM (1.2-3.4); ABSOLUTE MONOCYTE COUNT 0.8 /CUMM (0.10-0.60); BASOPHIL % 0.9 % (0.0-2.0); EOSINOPHIL % 3.4 % (0-5); GRANULOCYTE % 74.9 % (42.2-75.2); HEMATOCRIT 26.4 % (42-52); MEAN CORPUSCULAR HGB 27.5 PG (27.0-31.0); MEAN CORPUSCULAR HGB CONC 31.1 G/DL (33.0-37.0); MEAN CORPUSCULAR VOLUME 88.4 FL (80.0-94.0); MEAN PLATELET VOLUME 9.2 FL (7.4-10.4); PLATELET COUNT 116 /CUMM (130-400); RBC DISTRIBUTION WIDTH 20.1 % (11.5-14.5); RED BLOOD CELL CT 2.98 /CUMM (4.70-6.10); WHITE BLOOD CELL COUNT 9.1 /CUMM (4.8-10.8)
--- NOTE | 2017-02-24 15:18 | NUR ---
ARM MEASUREMENT: LEFT UPPER ARM: 30.5 CM LEFT LOWER ARM: 33.5 CM
[2017-02-24 18:03] VITALS: BP 118/60
--- NOTE | 2017-02-24 18:21 | NUR ---
0600 PT/INR PLACED ON CHART WITH PATIENT DOWN TO DIALYSIS PER USUAL. THIS RN CALLED DIALYSIS TO REMIND OF LABS ON CHART AND WAS INFORMED THAT [employer] HAD ALREADY GIVEN HEPARIN AND DID NOT DRAW PT/INR. AWAITING PT TO RETURN TO FLOOR TO DO PERIPHERAL STICK TO DRAW PT/INR. PT INFORMED OF WHY STICK NEEDED TO BE DONE. LABOR AND DELIVERY NURSE CHOCO ATTEMPTED 2 STICKS WITHOUT SUCCESS. STILL WAITING FOR PT/INR TO BE DRAWN FOR COUMADIN DOSING.
--- NOTE | 2017-02-24 19:50 | NUR ---
DR SANFORD UPDATED WITH INR 2.98 AND REQUESTED COUMADIN TO BE ORDERED.
--- NOTE | 2017-02-24 20:00 | NUR ---
PT C/O COUGHING AND DIFFICULTY BREATHING. ROBITUSSIN ADMINISTERED AND RT CALLED FOR A BREATHING TX.
[2017-02-24 23:23] VITALS: BP 116/60
[2017-02-25 07:14] VITALS: BP 118/68
[2017-02-25 09:06] LABS: ABSOLUTE BASOPHIL COUNT 0 /CUMM (0.0-0.2); ABSOLUTE EOSINOPHIL COUNT 0.3 /CUMM (0.0-0.7); ABSOLUTE GRANULOCYTE CT 6.7 /CUMM (1.4-6.5); ABSOLUTE LYMPH COUNT 1.3 /CUMM (1.2-3.4); ABSOLUTE MONOCYTE COUNT 1.1 /CUMM (0.10-0.60); BASOPHIL % 0.5 % (0.0-2.0); EOSINOPHIL % 3.5 % (0-5); GRANULOCYTE % 70.8 % (42.2-75.2); HEMATOCRIT 26.5 % (42-52); MEAN CORPUSCULAR HGB 28.1 PG (27.0-31.0); MEAN CORPUSCULAR HGB CONC 31.8 G/DL (33.0-37.0); MEAN CORPUSCULAR VOLUME 88.4 FL (80.0-94.0); MEAN PLATELET VOLUME 8.9 FL (7.4-10.4); PLATELET COUNT 118 /CUMM (130-400); RBC DISTRIBUTION WIDTH 20.4 % (11.5-14.5); WHITE BLOOD CELL COUNT 9.5 /CUMM (4.8-10.8)
[2017-02-25 09:25] LABS: PT 30.2 SEC (9.4-12.5)
--- NOTE | 2017-02-25 12:39 | PN- Att Addend ---
Attending Addendum Attending Brief Note Patient seen and examined . Resting comfortably in bed .72-year-old male with history of COPD, end-stage renal disease on hemodialysis, paroxysmal atrial fibrillation on Coumadin, diabetes, peripheral vascular disease, coronary artery disease admitted with ischemic bowel status post resection and colostomy placement. Plan End-stage renal disease-continue hemodialysis, he had his hemodialysis today. INRs therapeutic Will continue Coumadin as per INR. Patient is stable for discharge. He'll have to follow up with renal, vascular, primary care as an outpatient.
[2017-02-25 13:40] VITALS: BP 110/64
--- NOTE | 2017-02-25 17:23 | PN- Nephrology ---
Assessment/Plan Assessment: Fluid overload rosibel. To aid in trasnportation he is being chagned to a 10:30 AM TTS slot so dialyzed again today. . Suggestion: No changes. Subjective Subjective: Dialyzed earlier today with good UF. States he does get somewhat dizzy on standing and walking. Objective Vital Signs and I&Os Vital Signs Date Time Temp Pulse Resp B/P B/P Pulse O2 O2 Flow FiO2 Mean Ox Delivery Rate 02/25 1630 91 Room Air 02/25 1340 98.3 61 20 110/64 93 Room Air 02/25 1235 94 Room Air 02/25 0826 93 Room Air 02/25 0800 Nasal 3.0L Cannula 02/25 0714 98.3 68 20 118/68 99 Room Air 02/25 0113 99 Nasal 3.0L Cannula 02/25 0000 Nasal 3.0L Cannula 02/24 2323 98.8 70 20 116/60 92 Room Air 02/24 2027 87 Room Air Room Air 02/24 1803 98.1 68 20 118/60 91 Room Air Intake & Output 02/25 1600 02/25 0400 02/24 1600 02/24 0400 02/23 1600 02/23 0400 Intake Total 900 100 740 700 660 600 Output Total 400 100 150 800 550 300 Balance 500 0 590 -100 110 300 Intake, IV 0 0 Intake, Oral 900 100 740 700 660 600 Output, Stool 400 100 100 200 500 300 Output, Urine 50 600 50 Patient 178 lb 181 lb 186 lb 184 lb Weight Weight Standing Scale Standing Scale Standing Scale Measurement Method Physical Exam: NAD VS as above Lungs: some rhonchi CV: nor rub Abd: non-tender Exts: no edema a1+ edema of left arm. Bruit over left arm. Neuro: A&O Current Medications: Current Medications Sig/Johnna Start time Last Medication Dose Route Stop Time Status Admin Acetaminophen 650 MG Q4P PRN 01/31 1100 AC 02/22 PO 1811 Albuterol Sulfate 2 PUF Q4P PRN 02/06 0800 AC 02/06 INH 1313 Albuterol Sulfate 3 ML EVERY 4 HRS/AWAKE 02/05 1600 AC 02/25 INH 1630 Allopurinol 100 MG DAILY 02/20 1818 AC 02/25 PO 1231 Calcitriol 0.25 MCG MoWeFr PRN 01/30 0815 AC IV Diclofenac Sodium 1 MAI 4 TIMES/DAY 02/05 1400 AC 02/25 TOP 1713 Epoetin Guzman 4,000 UNIT MoWeFr PRN 01/30 0815 AC IV Furosemide 80 MG DAILY 02/08 1138 AC 02/25 PO 1231 Guaifenesin 10 ML .STK-MED ONE 02/24 1954 DC PO 02/24 1955 Guaifenesin 600 MG Q12 02/16 1000 AC 02/25 PO 1231 Guaifenesin/ 10 ML Q6P PRN 02/22 2130 AC 02/24 Dextromethorphan PO 1954 Insulin Aspart 0 AT BEDTIME 02/01 2200 AC 02/16 SC 2137 Insulin Aspart 0 TIDAC 02/01 1200 AC 02/25 SC 171 Omeprazole 40 MG DAILY AC 02/12 1200 AC 02/25 PO 0542 Sodium Chloride 2 SPRAY Q4P PRN 01/31 0430 AC 02/05 CHULA 2132 Trazodone HCl 50 MG AT BEDTIME 01/30 2200 AC 02/24 PO 2127 Warfarin Sodium 4 MG ONCE ONE 02/24 2100 DC 02/24 PO 02/24 Results Pertinent Lab Results: Laboratory Tests 02/25 02/24 0805 1850 Chemistry Sodium (137 - 145 mmol/L) 136 L Potassium (3.5 - 5.1 mmol/L) 3.6 Chloride (98 - 107 mmol/L) 97 L Carbon Dioxide (22 - 30 mmol/L) 26 Anion Gap (5 - 16) 13 BUN (9 - 20 mg/dL) 20 Creatinine (0.7 - 1.2 mg/dL) 3.4 H Estimated GFR (>60 ml/min) 18 L BUN/Creatinine Ratio (7 - 25 %) 5.9 L Glucose (65 - 99 mg/dL) 114 H Calcium (8.4 - 10.2 mg/dL) 8.3 L Coagulation PT (9.4 - 12.5 SEC) 30.2 H 31.0 H INR (0.90 - 1.17) 2.91 H 2.98 H Hematology CBC w Diff NO MAN DIFF REQ WBC (4.8 - 10.8 /CUMM) 9.5 RBC (4.70 - 6.10 /CUMM) 3.00 L Hgb (14.0 - 18.0 G/DL) 8.4 L Hct (42 - 52 %) 26.5 L MCV (80.0 - 94.0 FL) 88.4 MCH (27.0 - 31.0 PG) 28.1 RDW (11.5 - 14.5 %) 20.4 H Plt Count (130 - 400 /CUMM) 118 L MPV (7.4 - 10.4 FL) 8.9 Gran % (42.2 - 75.2 %) 70.8 Lymphocytes % (20.5 - 51.1 %) 13.8 L Monocytes % (1.7 - 9.3 %) 11.4 H Eosinophils % (0 - 5 %) 3.5 Basophils % (0.0 - 2.0 %) 0.5 Absolute Granulocytes (1.4 - 6.5 /CUMM) 6.7 H Absolute Lymphocytes (1.2 - 3.4 /CUMM) 1.3 Absolute Monocytes (0.10 - 0.60 /CUMM) 1.1 H Absolute Eosinophils (0.0 - 0.7 /CUMM) 0.3 Absolute Basophils (0.0 - 0.2 /CUMM) 0 PUBS MCHC (33.0 - 37.0 G/DL) 31.8 L 02/24 02/23 1350 0720 Chemistry Sodium (137 - 145 mmol/L) 134 L Potassium (3.5 - 5.1 mmol/L) 4.6 Chloride (98 - 107 mmol/L) 97 L Carbon Dioxide (22 - 30 mmol/L) 23 Anion Gap (5 - 16) 14 BUN (9 - 20 mg/dL) 37 H Creatinine (0.7 - 1.2 mg/dL) 5.2 *H Estimated GFR (>60 ml/min) 11 L BUN/Creatinine Ratio (7 - 25 %) 7.1 Glucose (65 - 99 mg/dL) 134 H Calcium (8.4 - 10.2 mg/dL) 8.2 L Phosphorus (2.5 - 4.5 mg/dL) 5.7 H Magnesium (1.6 - 2.3 mg/dL) 1.7 Albumin (3.5 - 5.0 g/dL) 3.1 L Coagulation PT (9.4 - 12.5 SEC) 24.0 H INR (0.90 - 1.17) 2.30 H Hematology CBC w Diff NO MAN DIFF REQ WBC (4.8 - 10.8 /CUMM) 9.1 RBC (4.70 - 6.10 /CUMM) 2.98 L Hgb (14.0 - 18.0 G/DL) 8.2 L Hct (42 - 52 %) 26.4 L MCV (80.0 - 94.0 FL) 88.4 MCH (27.0 - 31.0 PG) 27.5 RDW (11.5 - 14.5 %) 20.1 H Plt Count (130 - 400 /CUMM) 116 L MPV (7.4 - 10.4 FL) 9.2 Gran % (42.2 - 75.2 %) 74.9 Lymphocytes % (20.5 - 51.1 %) 11.9 L Monocytes % (1.7 - 9.3 %) 8.9 Eosinophils % (0 - 5 %) 3.4 Basophils % (0.0 - 2.0 %) 0.9 Absolute Granulocytes (1.4 - 6.5 /CUMM) 6.8 H Absolute Lymphocytes (1.2 - 3.4 /CUMM) 1.1 L Absolute Monocytes (0.10 - 0.60 /CUMM) 0.8 H Absolute Eosinophils (0.0 - 0.7 /CUMM) 0.3 Absolute Basophils (0.0 - 0.2 /CUMM) 0.1 PUBS MCHC (33.0 - 37.0 G/DL) 31.1 L
[2017-02-25 22:20] VITALS: BP 110/60
[2017-02-26 06:29] VITALS: BP 114/60
[2017-02-26 14:24] VITALS: BP 118/56
--- NOTE | 2017-02-26 15:08 | PN- Att Addend ---
Attending Addendum Attending Brief Note Patient seen and examined . Resting comfortably in bed .72-year-old male with history of COPD, end-stage renal disease on hemodialysis, paroxysmal atrial fibrillation on Coumadin, diabetes, peripheral vascular disease, coronary artery disease admitted with ischemic bowel status post resection and colostomy placement. Vitals: Temperature 97.8, heart rate 61, respiration 20, blood pressure 118/56, saturating 92% on room air Physical exam: Alert awake, oriented 3 Lung exam: Bilateral rhonchi Heart exam: S1 S2 heard normal Abdomen: Soft, nontender, colostomy in place Extremities: Bilateral lower extremities edema, edema present on the left upper extremity(Doppler of the upper extremities negative for DVT) Plan End-stage renal disease-continue hemodialysis Patient awaiting placement. Continue Coumadin as per INR. Continue by mouth Lasix. TRC nebs
[2017-02-26 22:57] VITALS: BP 116/60
[2017-02-27 06:54] VITALS: BP 104/46
[2017-02-27 08:27] LABS: PT 17.6 SEC (9.4-12.5)
--- NOTE | 2017-02-27 09:03 | PN- Att Addend ---
See Addendum Attending Addendum Attending Brief Note 72M COPD, recent worsening renal failure now with end-stage renal disease on hemodialysis, paroxysmal atrial fibrillation who is on anticoagulation, chronic heart failure with preserved ejection fraction LVEF of 50%, 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 Plan - ESRD on dialysis, plan as per nephrology, dialysis. - Continue Coumadin INR therapeutic - Continue home medications - dyspnea at rest, repeat chest xray suggestive of right sided worsening infiltrates cmpleted abx as per ID. - left upper extremity edema USG negative for DVT, USG arterial without any significant stenosis but hematoma vs seroma. vascular surgery no acute intervention needed. f/u o/p. d/c planning to STR. arranged HD as o/p, f/u nephrology in 1 week, vascular surgery in 2-3 weeks, PCP in 1 week. awaiting placement. Patient is stable for discharge. Case management had long discussion about discharge planning.
--- NOTE | 2017-02-27 09:26 | NUR ---
ARM MEASUREMENTS: LEFT LOWER ARM: 31 CM LEFT UPPER ARM: 33 CM
--- NOTE | 2017-02-27 11:29 | PN- Att Addend ---
Attending Addendum Attending Brief Note Patient seen and examined, and overall is feeling uncomfortable. States that his body is hurting everywhere. His L upper extremity is also painful. Vital Signs Date Time Temp Pulse Resp B/P B/P Pulse O2 O2 Flow FiO2 Mean Ox Delivery Rate 02/27 0814 94 Room Air Room Air 02/27 0800 Nasal 2.0L Cannula 02/27 0654 98.5 66 22 104/46 91 Room Air 02/27 0228 Room Air 02/27 0000 Room Air 02/26 2257 98.1 67 20 116/60 94 Room Air 02/26 1635 95 Room Air 02/26 1424 97.8 61 20 118/56 92 on exam: aox3, nad. cv; s1,s2, rrr. resp; clear abd; soft, nt, bs+ ext; 1+ edema b/l LE. + edema LUE> Laboratory Tests 02/27 0700 Coagulation PT (9.4 - 12.5 SEC) 17.6 H INR (0.90 - 1.17) 1.68 H A/P; 72M COPD, recent worsening renal failure now with end-stage renal disease on hemodialysis, paroxysmal atrial fibrillation who is on anticoagulation, chronic heart failure with preserved ejection fraction LVEF of 50%, 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 I will dose coumadin at 5 mg today. INR subtherapeutic today. Hemodialysis per nephrology. Spoke with surgical PA about chung removal. Continue all other current meds. Noted that patient is on Voltaren gel. Will d/w nephrology, is that ok ok to keep hemodialysis patient on topical NSAIDs. DVT px: on coumadin, will dose and recheck INR in am. Patient is awaiting placement.
[2017-02-27 14:30] VITALS: BP 140/70
--- NOTE | 2017-02-27 15:51 | NUR ---
MIDLINE BUBBA REMOVED AT 1200 BY LIZBET AGUIRRE. WILL MONITOR.
[2017-02-27 22:46] VITALS: BP 128/58
[2017-02-28 06:59] VITALS: BP 110/48
--- NOTE | 2017-02-28 09:45 | PN- Nephrology ---
Assessment/Plan Assessment: Fluid overload better. To aid in trasnportation he is being chagned to a 10:30 AM TTS slot. Suggestion: Dialysis later todya with 3 liter UF. Subjective Subjective: Still coughing and complaining of right foot pain. Objective Vital Signs and I&Os Vital Signs Date Time Temp Pulse Resp B/P B/P Pulse O2 O2 Flow FiO2 Mean Ox Delivery Rate 02/28 0835 93 Room Air 02/28 0659 98.5 62 18 110/48 93 Room Air 02/28 0154 94 Room Air 02/27 2246 98.8 60 18 128/58 96 02/27 1605 96 Room Air Room Air 02/27 1430 98.0 62 18 140/70 96 Room Air Intake & Output 02/28 1600 02/28 0400 02/27 0400 02/26 1600 02/26 040 Intake Total 100 100 900 240 200 450 Output Total 100 100 150 325 1 200 Balance 0 0 750 -85 199 250 Intake, Oral 100 100 900 240 200 450 Number 1 Bowel Movements Output, Stool 100 100 100 275 1 200 Output, Urine 50 50 Patient 183 lb 181 lb Weight Weight Standing Scale Standing Scale Measurement Method Physical Exam: NAD VS as above Lungs: some rhonchi CV: nor rub Abd: non-tender Exts: no 1+ edema, edema of left arm much better. Bruit over left arm. Neuro: A&O Current Medications: Current Medications Sig/Johnna Start time Last Medication Dose Route Stop Time Status Admin Acetaminophen 650 MG .STK-MED ONE 02/27 1404 DC PO 02/27 1405 Acetaminophen 650 MG Q4P PRN 01/31 1100 AC 02/28 PO 0801 Albuterol Sulfate 2 PUF Q4P PRN 02/06 0800 AC 02/06 INH 1313 Albuterol Sulfate 3 ML EVERY 4 HRS/AWAKE 02/05 1600 AC 02/28 INH 0835 Allopurinol 100 MG DAILY 02/20 1818 AC 02/28 PO 0858 Calcitriol 0.25 MCG MoWeFr PRN 01/30 0815 AC IV Diclofenac Sodium 1 MAI 4 TIMES/DAY 02/05 1400 AC 02/28 TOP 0858 Epoetin Guzman 4,000 UNIT MoWeFr PRN 01/30 0815 AC IV Furosemide 80 MG DAILY 02/08 1138 AC 02/28 PO 0858 Guaifenesin 600 MG Q12 02/16 1000 AC 02/28 PO 0858 Guaifenesin/ 10 ML Q6P PRN 02/22 2130 AC 02/24 Dextromethorphan PO 195 Insulin Aspart 0 AT BEDTIME 02/01 2200 AC 02/16 SC 2138 Insulin Aspart 0 TIDAC 02/01 1200 AC 02/28 SC 0800 Omeprazole 40 MG DAILY AC 02/12 1200 AC 02/28 PO 0552 Patient Medication 1 ED .STK-MED ONE 02/27 1349 TX Teaching ED 02/27 1350 Sodium Chloride 2 SPRAY Q4P PRN 01/31 0430 AC 02/05 CHULA 2133 Trazodone HCl 50 MG AT BEDTIME 01/30 2200 AC 02/27 PO 2200 Warfarin Sodium 5 MG COUMADIN 1700 ONE 02/27 1700 DC 02/27 PO 02/27 1701 1636 Results Pertinent Lab Results: Laboratory Tests 02/27 0700 Coagulation PT (9.4 - 12.5 SEC) 17.6 H INR (0.90 - 1.17) 1.68 H
--- NOTE | 2017-02-28 10:59 | PN- Att Addend ---
See Addendum Attending Addendum Attending Brief Note Patient seen and examined, he is upset about a lot of things. He claims that his left upper extremity is still swollen and is hurting. He also claims that people are not able to draw blood in him at first attempt and they have to attempt multiple times for the blood draw. He's also upset about his insurance thing. Claims that sometimes he feels dizzi when gets up and thinks that it is because of low BP. He thinks they are taking too much fluid out at dialysis. Vital Signs Date Time Temp Pulse Resp B/P B/P Pulse O2 O2 Flow FiO2 Mean Ox Delivery Rate 02/28 0835 93 Room Air 02/28 0659 98.5 62 18 110/48 93 Room Air 02/28 0154 94 Room Air 02/27 2246 98.8 60 18 128/58 96 02/27 1605 96 Room Air Room Air 02/27 1430 98.0 62 18 140/70 96 Room Air on exam; aox3, nad cv; s1,s2, rrr + pace maker and + tiburcio cath on right chest. resp; clear b/l abd; soft, nt, bs+ ext; 1+ edema b/l le, lue is also swollen. labs: pending. A/P; 72-year-old male with past medical history significant for COPD, end-stage renal disease on hemodialysis, paroxysmal A. fib on Coumadin, chronic diastolic CHF, diabetes, peripheral vascular disease, coronary artery disease, history of MGUS, neuropathy who was originally admitted with ischemic bowels which required resection and colostomy. Currently patient is undergoing hemodialysis Monday per nephrology. He is awaiting for insurance paperwork to be completed so that he can be placed in a long-term care. Off note patient does complain of some dizziness and his blood pressure is relatively running on the low side. I will discuss this with nephrology. Patient on 80 mg of Lasix for lower extremity edema. Advised to keep left upper extremity elevated. Left upper extremity ultrasound was done in the beginning of the month which was negative for DVT but it did show seroma versus hematoma. Patient had AV fistula placed in that left upper extremity. I will dose Coumadin according to INR today. INR will be drawn at dialysis. I will discuss with nephrology about Voltaren gel as patient has been kept on this medication for a while. Continue all other current meds. DVT Px; Coumadin. Will follow up on INR. Pt awaits T-19 completion for placement.
--- NOTE | 2017-02-28 11:22 | NUR ---
0930- ARM CIRCUMFERENCE: UPPER: 33 CM, LOWER: 28.5 CM
[2017-02-28 13:28] LABS: ABSOLUTE BASOPHIL COUNT 0.1 /CUMM (0.0-0.2); ABSOLUTE EOSINOPHIL COUNT 0.3 /CUMM (0.0-0.7); ABSOLUTE GRANULOCYTE CT 7.5 /CUMM (1.4-6.5); ABSOLUTE LYMPH COUNT 1.3 /CUMM (1.2-3.4); ABSOLUTE MONOCYTE COUNT 0.6 /CUMM (0.10-0.60); BASOPHIL % 1.4 % (0.0-2.0); EOSINOPHIL % 3.5 % (0-5); GRANULOCYTE % 75.8 % (42.2-75.2); HEMATOCRIT 26.7 % (42-52); MEAN CORPUSCULAR HGB 27.5 PG (27.0-31.0); MEAN CORPUSCULAR HGB CONC 31.2 G/DL (33.0-37.0); MEAN CORPUSCULAR VOLUME 88.4 FL (80.0-94.0); MEAN PLATELET VOLUME 8.9 FL (7.4-10.4); PLATELET COUNT 123 /CUMM (130-400); RBC DISTRIBUTION WIDTH 20.8 % (11.5-14.5); RED BLOOD CELL CT 3.03 /CUMM (4.70-6.10); WHITE BLOOD CELL COUNT 9.9 /CUMM (4.8-10.8)
[2017-02-28 13:56] LABS: PT > 103.0 SEC (9.4-12.5)
--- NOTE | 2017-02-28 13:57 | NUR ---
1230- OFF FLOOR TO DIALYSIS
--- NOTE | 2017-02-28 14:09 | NUR ---
1400- PT > 103, INR> 10.0. PT IN DIALYSIS. PT/INR DRAWN OFF ZULEYMA CATH. VALUES SIGNIFICANTLY DIFFERENT FROM 02/27. PER DR. BRADFORD, REDRAW PT/INR PERIPHERALLY WHEN PT RETURNS TO FLOOR FROM DIALYSIS.
[2017-02-28 17:56] LABS: PT 19.1 SEC (9.4-12.5)
[2017-02-28 22:50] VITALS: BP 110/50
[2017-03-01 06:43] VITALS: BP 108/48
--- NOTE | 2017-03-01 09:07 | PN- Nephrology ---
Assessment/Plan Assessment: Probably at ideal weight currently. Still with some edema. Suggestion: Dialysis tomorrow. Would check orthostatic BP when standing patient. Subjective Subjective: Patient brought down to 80 kg yesterday without overt hypotension. BP tends to run inthe 110's now regardless of volume. He does get lightheaded on standing but no syncope. Objective Vital Signs and I&Os Vital Signs Date Time Temp Pulse Resp B/P B/P Pulse O2 O2 Flow FiO2 Mean Ox Delivery Rate 03/01 0758 95 03/01 0643 98.8 63 20 108/48 92 Room Air 03/01 0048 94 Room Air 03/01 0000 Room Air 02/28 2250 98.7 65 18 110/50 95 Room Air 02/28 2005 97 Room Air Room Air Intake & Output 03/01 1600 03/01 0400 02/28 0400 02/27 1600 02/27 0400 Intake Total 240 480 700 100 900 240 Output Total 200 500 100 150 325 Balance 40 480 200 0 750 -85 Intake, Oral 240 480 700 100 900 240 Number 1 Bowel Movements Output, Stool 200 400 100 100 275 Output, Urine 100 50 50 Patient 180 lb 183 lb 181 lb Weight Weight Standing Scale Standing Scale Standing Scale Measurement Method Physical Exam: NAD VS as above Lungs: some rhonchi CV: nor rub Abd: non-tender Exts: no edema, edema of left arm up some today. Bruit over left arm. Neuro: A&O Current Medications: Current Medications Sig/Johnna Start time Last Medication Dose Route Stop Time Status Admin Acetaminophen 650 MG Q4P PRN 01/31 1100 AC 02/28 PO 0801 Albuterol Sulfate 2 PUF Q4P PRN 02/06 0800 AC 02/06 INH 1313 Albuterol Sulfate 3 ML EVERY 4 HRS/AWAKE 02/05 1600 AC 03/01 INH 0751 Allopurinol 100 MG DAILY 02/20 1818 AC 02/28 PO 0858 Calcitriol 0.25 MCG MoWeFr PRN 01/30 0815 AC IV Diclofenac Sodium 1 MAI 4 TIMES/DAY 02/05 1400 AC 02/28 TOP 2124 Epoetin Guzman 4,000 UNIT MoWeFr PRN 01/30 0815 AC IV Furosemide 80 MG DAILY 02/08 1138 AC 02/28 PO 0858 Guaifenesin 600 MG Q12 02/16 1000 AC 02/28 PO 2124 Guaifenesin/ 10 ML Q6P PRN 02/22 2130 AC 02/24 Dextromethorphan PO 1954 Insulin Aspart 0 AT BEDTIME 02/01 2200 AC 02/16 SC 2137 Insulin Aspart 0 TIDAC 02/02 1200 AC 03/01 SC 0758 Omeprazole 40 MG DAILY AC 02/12 1200 AC 03/01 PO 0713 Sodium Chloride 2 SPRAY Q4P PRN 01/31 0430 AC 02/05 CHULA 2132 Trazodone HCl 50 MG AT BEDTIME 01/30 2200 AC 02/28 PO 2123 Warfarin Sodium 5 MG COUMADIN 1700 ONE 02/28 1915 DC 02/28 PO 02/28 Results Pertinent Lab Results: Laboratory Tests 03/01 02/28 02/28 0745 1720 1235 Chemistry Sodium (137 - 145 mmol/L) 135 L Potassium (3.5 - 5.1 mmol/L) 3.8 Chloride (98 - 107 mmol/L) 96 L Carbon Dioxide (22 - 30 mmol/L) 22 Anion Gap (5 - 16) 16 BUN (9 - 20 mg/dL) 44 H Creatinine (0.7 - 1.2 mg/dL) 6.0 *H Estimated GFR (>60 ml/min) 9 L BUN/Creatinine Ratio (7 - 25 %) 7.3 Calcium (8.4 - 10.2 mg/dL) 8.4 Coagulation PT (9.4 - 12.5 SEC) Pending 19.1 H > 103.0 *H INR (0.90 - 1.17) Pending 1.83 H > 10.0 *H Hematology CBC w Diff NO MAN DIFF REQ WBC (4.8 - 10.8 /CUMM) 9.9 RBC (4.70 - 6.10 /CUMM) 3.03 L Hgb (14.0 - 18.0 G/DL) 8.3 L Hct (42 - 52 %) 26.7 L MCV (80.0 - 94.0 FL) 88.4 MCH (27.0 - 31.0 PG) 27.5 RDW (11.5 - 14.5 %) 20.8 H Plt Count (130 - 400 /CUMM) 123 L MPV (7.4 - 10.4 FL) 8.9 Gran % (42.2 - 75.2 %) 75.8 H Lymphocytes % (20.5 - 51.1 %) 13.2 L Monocytes % (1.7 - 9.3 %) 6.1 Eosinophils % (0 - 5 %) 3.5 Basophils % (0.0 - 2.0 %) 1.4 Absolute Granulocytes (1.4 - 6.5 /CUMM) 7.5 H Absolute Lymphocytes (1.2 - 3.4 /CUMM) 1.3 Absolute Monocytes (0.10 - 0.60 /CUMM) 0.6 Absolute Eosinophils (0.0 - 0.7 /CUMM) 0.3 Absolute Basophils (0.0 - 0.2 /CUMM) 0.1 PUBS MCHC (33.0 - 37.0 G/DL) 31.2 L 02/27 0700 Coagulation PT (9.4 - 12.5 SEC) 17.6 H INR (0.90 - 1.17) 1.68 H
[2017-03-01 09:14] LABS: PT 18.9 SEC (9.4-12.5)
--- NOTE | 2017-03-01 10:16 | PN- Att Addend ---
Attending Addendum Attending Brief Note Patient seen and examined, feels okay. The left upper extremity swelling is slightly better. Patient still feels frustrated about everything. He claims that his feet hurt and whenever he gets up he feels slightly dizzy. He thinks that he's getting too much fluid out of his body during dialysis. Vital Signs Date Time Temp Pulse Resp B/P B/P Pulse O2 O2 Flow FiO2 Mean Ox Delivery Rate 03/01 0758 95 03/01 0643 98.8 63 20 108/48 92 Room Air 03/01 0048 94 Room Air 03/01 0000 Room Air 02/28 2250 98.7 65 18 110/50 95 Room Air 02/28 2005 97 Room Air Room Air on exam; aox3, nad cv; s1,s2, rrr resp; clear abd; soft, nt, bs+, + colostomy bag. ext; 1+ edema b/l Laboratory Tests 03/01 02/28 02/28 0745 1720 1235 Chemistry Sodium (137 - 145 mmol/L) 135 L Potassium (3.5 - 5.1 mmol/L) 3.8 Chloride (98 - 107 mmol/L) 96 L Carbon Dioxide (22 - 30 mmol/L) 22 Anion Gap (5 - 16) 16 BUN (9 - 20 mg/dL) 44 H Creatinine (0.7 - 1.2 mg/dL) 6.0 *H Estimated GFR (>60 ml/min) 9 L BUN/Creatinine Ratio (7 - 25 %) 7.3 Calcium (8.4 - 10.2 mg/dL) 8.4 Coagulation PT (9.4 - 12.5 SEC) 18.9 H 19.1 H > 103.0 *H INR (0.90 - 1.17) 1.81 H 1.83 H > 10.0 *H Hematology CBC w Diff NO MAN DIFF REQ WBC (4.8 - 10.8 /CUMM) 9.9 RBC (4.70 - 6.10 /CUMM) 3.03 L Hgb (14.0 - 18.0 G/DL) 8.3 L Hct (42 - 52 %) 26.7 L MCV (80.0 - 94.0 FL) 88.4 MCH (27.0 - 31.0 PG) 27.5 RDW (11.5 - 14.5 %) 20.8 H Plt Count (130 - 400 /CUMM) 123 L MPV (7.4 - 10.4 FL) 8.9 Gran % (42.2 - 75.2 %) 75.8 H Lymphocytes % (20.5 - 51.1 %) 13.2 L Monocytes % (1.7 - 9.3 %) 6.1 Eosinophils % (0 - 5 %) 3.5 Basophils % (0.0 - 2.0 %) 1.4 Absolute Granulocytes (1.4 - 6.5 /CUMM) 7.5 H Absolute Lymphocytes (1.2 - 3.4 /CUMM) 1.3 Absolute Monocytes (0.10 - 0.60 /CUMM) 0.6 Absolute Eosinophils (0.0 - 0.7 /CUMM) 0.3 Absolute Basophils (0.0 - 0.2 /CUMM) 0.1 PUBS MCHC (33.0 - 37.0 G/DL) 31.2 L A/P; 72-year-old male with past medical history significant for COPD, end-stage renal disease on hemodialysis, paroxysmal A. fib on Coumadin, chronic diastolic CHF, diabetes, peripheral vascular disease, coronary artery disease, history of MGUS, neuropathy who was originally admitted with ischemic bowels which required resection and colostomy. Currently patient is undergoing hemodialysis Monday per nephrology. He is awaiting for insurance paperwork to be completed so that he can be placed in a long-term care. Off note patient does complain of some dizziness and his blood pressure is relatively running on the low side. Yesterday patient had a high INR which was drawn from the Pola catheter. Repeat INR was subtherapeutic. Today his INR is 1.81. I will dose his Coumadin slightly higher dose with 6 mg today. Patient kept on complaining of feeling dizzy and I have encouraged him to discuss this with nephrology. I will also talk with nephrology about this. His bilateral lower extremity edema as well as his left upper except the swelling has improved. Continue other current medications. DVT prophylaxis: Patient on coumadin.
[2017-03-01 14:36] VITALS: BP 100/60
--- NOTE | 2017-03-01 20:32 | NUR ---
ARM MEASUREMENT: LEFT LOWER ARM: 30 CM lEFT UPPER ARM: 31 CM
[2017-03-01 22:24] VITALS: BP 130/50
[2017-03-02 07:22] VITALS: BP 138/70
--- NOTE | 2017-03-02 07:54 | NUR ---
PT TO DIALYSIS AT 0750. ACCU CHECK NOT DONE, NOT PREFORMED BEFORE TAKEN TO DIALYSIS. WILL MONITOR WHEN PT RETURNS TO FLOOR.
--- NOTE | 2017-03-02 08:16 | PN- Nephrology ---
Assessment/Plan Assessment: EDW probably 80-81 kg. Still with some edema. He is afraid of hypotension if BP brought down too far. Suggestion: UF 2.5 liters today. Subjective Subjective: No new complaints tdoay, undergoing dialysis. Objective Vital Signs and I&Os Vital Signs Date Time Temp Pulse Resp B/P B/P Pulse O2 O2 Flow FiO2 Mean Ox Delivery Rate 03/02 0722 98.0 67 20 138/70 91 Room Air 03/02 0205 94 Room Air 03/02 0000 Room Air 03/01 2224 98.6 64 20 130/50 95 Room Air 03/01 1955 95 Room Air 03/01 1658 96 Room Air 03/01 1600 Room Air 03/01 1436 98.2 70 19 100/60 93 Intake & Output 03/02 0400 03/01 1600 03/01 0400 02/28 1600 02/28 0400 Intake Total 250 400 940 480 700 100 Output Total 180 100 550 500 100 Balance 70 300 390 480 200 0 Intake, Oral 250 400 940 480 700 100 Number 1 Bowel Movements Output, Stool 50 100 550 400 100 Output, Urine 130 100 Patient 183 lb 180 lb 183 lb Weight Weight Standing Scale Standing Scale Measurement Method Physical Exam: NAD VS as above Lungs: some rhonchi CV: nor rub Abd: non-tender Exts: 1+ pretibial edema, edema of left arm up some today. Bruit over left arm. Neuro: A& O Current Medications: Current Medications Sig/Johnna Start time Last Medication Dose Route Stop Time Status Admin Acetaminophen 650 MG Q4P PRN 01/31 1100 AC 02/28 PO 0801 Albuterol Sulfate 2 PUF Q4P PRN 02/06 0800 AC 02/06 INH 1313 Albuterol Sulfate 3 ML EVERY 4 HRS/AWAKE 02/05 1600 AC 03/02 INH 0147 Allopurinol 100 MG DAILY 02/20 1818 AC 03/01 PO 1002 Calcitriol 0.25 MCG MoWeFr PRN 01/30 0815 AC IV Diclofenac Sodium 1 MAI 4 TIMES/DAY 02/05 1400 AC 03/01 TOP 1002 Epoetin Guzman 4,000 UNIT MoWeFr PRN 01/30 0815 AC IV Furosemide 80 MG DAILY 02/08 1138 AC 03/01 PO 1001 Guaifenesin 600 MG Q12 02/16 1000 AC 03/01 PO 2144 Guaifenesin/ 10 ML Q6P PRN 02/22 2130 AC 02/24 Dextromethorphan PO 195 Insulin Aspart 0 AT BEDTIME 02/01 2200 AC 02/16 SC 2137 Insulin Aspart 0 TIDAC 02/01 1200 AC 03/01 SC 1137 Omeprazole 40 MG DAILY AC 02/12 1200 AC 03/02 PO 0608 Sodium Chloride 2 SPRAY Q4P PRN 01/31 0430 AC 02/05 CHULA 2132 Trazodone HCl 50 MG AT BEDTIME 01/30 2200 AC 03/01 PO 214 Warfarin Sodium 6 MG COUMADIN 1700 ONE 03/01 1700 DC 03/01 PO 03/01 1701 1758 Results Pertinent Lab Results: Laboratory Tests 03/01 02/28 02/28 0745 1720 1235 Chemistry Sodium (137 - 145 mmol/L) 135 L Potassium (3.5 - 5.1 mmol/L) 3.8 Chloride (98 - 107 mmol/L) 96 L Carbon Dioxide (22 - 30 mmol/L) 22 Anion Gap (5 - 16) 16 BUN (9 - 20 mg/dL) 44 H Creatinine (0.7 - 1.2 mg/dL) 6.0 *H Estimated GFR (>60 ml/min) 9 L BUN/Creatinine Ratio (7 - 25 %) 7.3 Calcium (8.4 - 10.2 mg/dL) 8.4 Coagulation PT (9.4 - 12.5 SEC) 18.9 H 19.1 H > 103.0 *H INR (0.90 - 1.17) 1.81 H 1.83 H > 10.0 *H Hematology CBC w Diff NO MAN DIFF REQ WBC (4.8 - 10.8 /CUMM) 9.9 RBC (4.70 - 6.10 /CUMM) 3.03 L Hgb (14.0 - 18.0 G/DL) 8.3 L Hct (42 - 52 %) 26.7 L MCV (80.0 - 94.0 FL) 88.4 MCH (27.0 - 31.0 PG) 27.5 RDW (11.5 - 14.5 %) 20.8 H Plt Count (130 - 400 /CUMM) 123 L MPV (7.4 - 10.4 FL) 8.9 Gran % (42.2 - 75.2 %) 75.8 H Lymphocytes % (20.5 - 51.1 %) 13.2 L Monocytes % (1.7 - 9.3 %) 6.1 Eosinophils % (0 - 5 %) 3.5 Basophils % (0.0 - 2.0 %) 1.4 Absolute Granulocytes (1.4 - 6.5 /CUMM) 7.5 H Absolute Lymphocytes (1.2 - 3.4 /CUMM) 1.3 Absolute Monocytes (0.10 - 0.60 /CUMM) 0.6 Absolute Eosinophils (0.0 - 0.7 /CUMM) 0.3 Absolute Basophils (0.0 - 0.2 /CUMM) 0.1 PUBS MCHC (33.0 - 37.0 G/DL) 31.2 L
[2017-03-02 08:59] LABS: ABSOLUTE BASOPHIL COUNT 0 /CUMM (0.0-0.2); ABSOLUTE EOSINOPHIL COUNT 0.4 /CUMM (0.0-0.7); ABSOLUTE GRANULOCYTE CT 7.8 /CUMM (1.4-6.5); ABSOLUTE LYMPH COUNT 1.2 /CUMM (1.2-3.4); ABSOLUTE MONOCYTE COUNT 0.7 /CUMM (0.10-0.60); BASOPHIL % 0.3 % (0.0-2.0); EOSINOPHIL % 3.7 % (0-5); GRANULOCYTE % 77.5 % (42.2-75.2); HEMATOCRIT 27.4 % (42-52); MEAN CORPUSCULAR HGB 28.4 PG (27.0-31.0); MEAN CORPUSCULAR HGB CONC 32.3 G/DL (33.0-37.0); MEAN CORPUSCULAR VOLUME 88.1 FL (80.0-94.0); MEAN PLATELET VOLUME 8.4 FL (7.4-10.4); PLATELET COUNT 137 /CUMM (130-400); RBC DISTRIBUTION WIDTH 20.2 % (11.5-14.5); RED BLOOD CELL CT 3.11 /CUMM (4.70-6.10); WHITE BLOOD CELL COUNT 10.1 /CUMM (4.8-10.8)
--- NOTE | 2017-03-02 11:09 | PN- Att Addend ---
Attending Addendum Attending Brief Note Patient seen and examined and dialysis. Feels tired and complains that his right hand and right wrist is hurting slightly. He is able to move the wrists though. Vital Signs Date Time Temp Pulse Resp B/P B/P Pulse O2 O2 Flow FiO2 Mean Ox Delivery Rate 03/02 0902 95 Room Air 03/02 0722 98.0 67 20 138/70 91 Room Air 03/02 0205 94 Room Air 03/02 0000 Room Air 03/01 2224 98.6 64 20 130/50 95 Room Air 03/01 1955 95 Room Air 03/01 1658 96 Room Air 03/01 1600 Room Air 03/01 1436 98.2 70 19 100/60 93 on exam: aox3, nad. cv; s1,s2, rrr resp; clear abd; soft, nt, bs+ ext; 1+ edema. lue swelling has improved. Laboratory Tests 03/02 0805 Chemistry Sodium (137 - 145 mmol/L) 137 Potassium (3.5 - 5.1 mmol/L) 4.0 Chloride (98 - 107 mmol/L) 98 Carbon Dioxide (22 - 30 mmol/L) 23 Anion Gap (5 - 16) 16 BUN (9 - 20 mg/dL) 38 H Creatinine (0.7 - 1.2 mg/dL) 5.8 *H Estimated GFR (>60 ml/min) 10 L BUN/Creatinine Ratio (7 - 25 %) 6.6 L Glucose (65 - 99 mg/dL) 161 H Calcium (8.4 - 10.2 mg/dL) 8.4 Phosphorus (2.5 - 4.5 mg/dL) 5.4 H Magnesium (1.6 - 2.3 mg/dL) 1.7 Albumin (3.5 - 5.0 g/dL) 3.2 L Hematology CBC w Diff NO MAN DIFF REQ WBC (4.8 - 10.8 /CUMM) 10.1 RBC (4.70 - 6.10 /CUMM) 3.11 L Hgb (14.0 - 18.0 G/DL) 8.9 L Hct (42 - 52 %) 27.4 L MCV (80.0 - 94.0 FL) 88.1 MCH (27.0 - 31.0 PG) 28.4 RDW (11.5 - 14.5 %) 20.2 H Plt Count (130 - 400 /CUMM) 137 MPV (7.4 - 10.4 FL) 8.4 Gran % (42.2 - 75.2 %) 77.5 H Lymphocytes % (20.5 - 51.1 %) 11.8 L Monocytes % (1.7 - 9.3 %) 6.7 Eosinophils % (0 - 5 %) 3.7 Basophils % (0.0 - 2.0 %) 0.3 Absolute Granulocytes (1.4 - 6.5 /CUMM) 7.8 H Absolute Lymphocytes (1.2 - 3.4 /CUMM) 1.2 Absolute Monocytes (0.10 - 0.60 /CUMM) 0.7 H Absolute Eosinophils (0.0 - 0.7 /CUMM) 0.4 Absolute Basophils (0.0 - 0.2 /CUMM) 0 PUBS MCHC (33.0 - 37.0 G/DL) 32.3 L A/P; 72-year-old male with past medical history significant for COPD, end-stage renal disease on hemodialysis, paroxysmal A. fib on Coumadin, chronic diastolic CHF, diabetes, peripheral vascular disease, coronary artery disease, history of MGUS, neuropathy who was originally admitted with ischemic bowels which required resection and colostomy. Currently patient is undergoing hemodialysis Monday per nephrology. He is awaiting for insurance paperwork to be completed so that he can be placed in a long-term care. This morning he is complaining of right wrist and hand pain. He thinks that he might be developing mild decubiti of gout. He also states that he takes colchicine and this happens. I offered to start him on colchicine and may be getting an x-ray of the right wrist. He said that he wants to watch today and if it gets worse, only then he will go with the plan. I also discussed with Dr. Wood about his status is at patient's complaining of feeling dizzy. He will check his orthostats. INR pending, I will dose his Coumadin accordingly. Continue the current medications. Patient awaits paperwork to be completed for insurance so that [facility] can [facility]
[2017-03-02 12:57] VITALS: BP 100/58
[2017-03-02 13:34] LABS: PT 20.2 SEC (9.4-12.5)
[2017-03-02 22:40] VITALS: BP 102/60
[2017-03-03 07:59] VITALS: BP 102/88
[2017-03-03 08:24] LABS: PT 22.4 SEC (9.4-12.5)
[2017-03-03 10:01] VITALS: BP 102/38
--- NOTE | 2017-03-03 11:41 | PN- Nephrology ---
Assessment/Plan Assessment: EDW probably 80-81 kg. Not entirely clear what his symtoms are due to. Suggestion: Please record postural signs when he reports feeling wobbly. Will try not bringing him below 81 kigs and see if this improves symptoms. Subjective Subjective: Patient still complains of being wobbly when standing. BP running in the low 100s. I don't see postural signs recored althugh on 02-22 he didn't have significant postural drop. Objective Vital Signs and I&Os Vital Signs Date Time Temp Pulse Resp B/P B/P Pulse O2 O2 Flow FiO2 Mean Ox Delivery Rate 03/03 1001 102/38 03/03 0840 99 Room Air Room Air 03/03 0759 98.0 63 22 102/88 93 Room Air 03/03 0059 94 Room Air 03/03 0000 Room Air 03/02 2240 98.7 78 22 102/60 91 Room Air 03/02 2005 94 Room Air 03/02 1625 93 Room Air 03/02 1257 97.5 61 22 100/58 93 Intake & Output 03/03 1600 03/03 0400 03/02 1600 03/02 0400 03/01 1600 03/01 0400 Intake Total 120 450 750 400 940 480 Output Total 698 117 0740 100 550 Balance -80 150 -2030 300 390 480 Intake, Oral 120 450 750 400 940 480 Output, 2500 Dialysate Output, Stool 200 300 150 100 550 Output, Urine 130 Patient 179 lb 176 lb 180 lb Weight Weight Chair scale Standing Scale Standing Scale Measurement Method Physical Exam: NAD VS as above Lungs: some rhonchi CV: nor rub Abd: non-tender Exts: no pretibial edema, 1+ edema of left arm . Bruit over left arm. Neuro: A&O Current Medications: Current Medications Sig/Johnna Start time Last Medication Dose Route Stop Time Status Admin Acetaminophen 650 MG .STK-MED ONE 03/02 1719 DC PO 03/02 1720 Acetaminophen 650 MG Q4P PRN 01/31 1100 AC 03/02 PO 1721 Albuterol Sulfate 2 PUF Q4P PRN 02/06 0800 AC 02/06 INH 1313 Albuterol Sulfate 3 ML EVERY 4 HRS/AWAKE 02/05 1600 AC 03/03 INH 0839 Allopurinol 100 MG DAILY 02/20 1818 AC 03/03 PO 0946 Calcitriol 0.25 MCG MoWeFr PRN 01/30 0815 AC IV Colchicine 300 MCG DAILY 03/02 1820 AC 03/03 PO 0947 Diclofenac Sodium 1 MAI 4 TIMES/DAY 02/05 1400 AC 03/02 TOP 2157 Epoetin Guzman 4,000 UNIT MoWeFr PRN 01/30 0815 AC IV Furosemide 80 MG DAILY 02/08 1138 AC 03/03 PO 0946 Guaifenesin 10 ML .STK-MED ONE 03/02 1720 DC PO 03/02 1721 Guaifenesin 600 MG Q12 02/16 1000 AC 03/03 PO 0946 Guaifenesin/ 10 ML Q6P PRN 02/22 2130 AC 03/03 Dextromethorphan PO 0137 Insulin Aspart 0 AT BEDTIME 02/01 2200 AC 02/16 SC 213 Insulin Aspart 0 TIDAC 02/01 1200 AC 03/03 SC 0945 Omeprazole 40 MG DAILY AC 02/12 1200 AC 03/03 PO 0540 Sodium Chloride 2 SPRAY Q4P PRN 01/31 0430 AC 02/05 CHULA 2133 Trazodone HCl 50 MG AT BEDTIME 01/30 2200 AC 03/02 PO 2157 Warfarin Sodium 6 MG COUMADIN 1700 ONE 03/02 1700 DC 03/02 PO 03/02 1701 1706 Results Pertinent Lab Results: Laboratory Tests 03/03 03/02 03/02 0736 1225 1137 Chemistry BUN (9 - 20 mg/dL) 9 Coagulation PT (9.4 - 12.5 SEC) 22.4 H 20.2 H INR (0.90 - 1.17) 2.15 H 1.94 H 03/02 03/01 02/28 0805 0745 1720 Chemistry Sodium (137 - 145 mmol/L) 137 Potassium (3.5 - 5.1 mmol/L) 4.0 Chloride (98 - 107 mmol/L) 98 Carbon Dioxide (22 - 30 mmol/L) 23 Anion Gap (5 - 16) 16 BUN (9 - 20 mg/dL) 38 H Creatinine (0.7 - 1.2 mg/dL) 5.8 *H Estimated GFR (>60 ml/min) 10 L BUN/Creatinine Ratio (7 - 25 %) 6.6 L Glucose (65 - 99 mg/dL) 161 H Calcium (8.4 - 10.2 mg/dL) 8.4 Phosphorus (2.5 - 4.5 mg/dL) 5.4 H Magnesium (1.6 - 2.3 mg/dL) 1.7 Albumin (3.5 - 5.0 g/dL) 3.2 L Coagulation PT (9.4 - 12.5 SEC) 18.9 H 19.1 H INR (0.90 - 1.17) 1.81 H 1.83 H Hematology CBC w Diff NO MAN DIFF REQ WBC (4.8 - 10.8 /CUMM) 10.1 RBC (4.70 - 6.10 /CUMM) 3.11 L Hgb (14.0 - 18.0 G/DL) 8.9 L Hct (42 - 52 %) 27.4 L MCV (80.0 - 94.0 FL) 88.1 MCH (27.0 - 31.0 PG) 28.4 RDW (11.5 - 14.5 %) 20.2 H Plt Count (130 - 400 /CUMM) 137 MPV (7.4 - 10.4 FL) 8.4 Gran % (42.2 - 75.2 %) 77.5 H Lymphocytes % (20.5 - 51.1 %) 11.8 L Monocytes % (1.7 - 9.3 %) 6.7 Eosinophils % (0 - 5 %) 3.7 Basophils % (0.0 - 2.0 %) 0.3 Absolute Granulocytes (1.4 - 6.5 /CUMM) 7.8 H Absolute Lymphocytes (1.2 - 3.4 /CUMM) 1.2 Absolute Monocytes (0.10 - 0.60 /CUMM) 0.7 H Absolute Eosinophils (0.0 - 0.7 /CUMM) 0.4 Absolute Basophils (0.0 - 0.2 /CUMM) 0 PUBS MCHC (33.0 - 37.0 G/DL) 32.3 L 02/28 1235 Chemistry Sodium (137 - 145 mmol/L) 135 L Potassium (3.5 - 5.1 mmol/L) 3.8 Chloride (98 - 107 mmol/L) 96 L Carbon Dioxide (22 - 30 mmol/L) 22 Anion Gap (5 - 16) 16 BUN (9 - 20 mg/dL) 44 H Creatinine (0.7 - 1.2 mg/dL) 6.0 *H Estimated GFR (>60 ml/min) 9 L BUN/Creatinine Ratio (7 - 25 %) 7.3 Calcium (8.4 - 10.2 mg/dL) 8.4 Coagulation PT (9.4 - 12.5 SEC) > 103.0 *H INR (0.90 - 1.17) > 10.0 *H Hematology CBC w Diff NO MAN DIFF REQ WBC (4.8 - 10.8 /CUMM) 9.9 RBC (4.70 - 6.10 /CUMM) 3.03 L Hgb (14.0 - 18.0 G/DL) 8.3 L Hct (42 - 52 %) 26.7 L MCV (80.0 - 94.0 FL) 88.4 MCH (27.0 - 31.0 PG) 27.5 RDW (11.5 - 14.5 %) 20.8 H Plt Count (130 - 400 /CUMM) 123 L MPV (7.4 - 10.4 FL) 8.9 Gran % (42.2 - 75.2 %) 75.8 H Lymphocytes % (20.5 - 51.1 %) 13.2 L Monocytes % (1.7 - 9.3 %) 6.1 Eosinophils % (0 - 5 %) 3.5 Basophils % (0.0 - 2.0 %) 1.4 Absolute Granulocytes (1.4 - 6.5 /CUMM) 7.5 H Absolute Lymphocytes (1.2 - 3.4 /CUMM) 1.3 Absolute Monocytes (0.10 - 0.60 /CUMM) 0.6 Absolute Eosinophils (0.0 - 0.7 /CUMM) 0.3 Absolute Basophils (0.0 - 0.2 /CUMM) 0.1 PUBS MCHC (33.0 - 37.0 G/DL) 31.2 L
--- NOTE | 2017-03-03 11:51 | PN- Att Addend ---
Attending Addendum Attending Brief Note Patient seen and examined, the right wrist pain has improved. Blood pressures recorded low this morning specially the diastolic number but the previous reading which was done 2 hours ago was normal. Nephrology is recommending checking orthostatic vital signs which I will order. Vital Signs Date Time Temp Pulse Resp B/P B/P Pulse O2 O2 Flow FiO2 Mean Ox Delivery Rate 03/03 1001 102/38 03/03 0840 99 Room Air Room Air 03/03 0759 98.0 63 22 102/88 93 Room Air 03/03 0059 94 Room Air 03/03 0000 Room Air 03/02 2240 98.7 78 22 102/60 91 Room Air 03/02 2005 94 Room Air 03/02 1625 93 Room Air 03/02 1257 97.5 61 22 100/58 93 on exam; aox3, nad. cv; s1,s2, rrr resp; clear abd; soft, nt, bs+ ext; 1+ edema b/l Laboratory Tests 03/03 03/02 0736 1225 Coagulation PT (9.4 - 12.5 SEC) 22.4 H 20.2 H INR (0.90 - 1.17) 2.15 H 1.94 H A/P; 72-year-old male with past medical history significant for COPD, end-stage renal disease on hemodialysis, paroxysmal A. fib on Coumadin, chronic diastolic CHF, diabetes, peripheral vascular disease, coronary artery disease, history of MGUS, neuropathy who was originally admitted with ischemic bowels which required resection and colostomy. Currently patient is undergoing hemodialysis Monday per nephrology. He is awaiting for insurance paperwork to be completed so that he can be placed in a senior living. The right wrist pain has improved. Patient was given colchicine yesterday. I checked with pharmacy and have adjusted the dose of his colchicine. INR therapeutic today. I will dose Coumadin accordingly. I have ordered orthostatic vital signs. Hemodialysis per nephrology. DVT prophylaxis: Patient on Coumadin with therapeutic INR. Patient is awaiting insurance approval so that he can be discharged to senior living.
[2017-03-03 12:54] VITALS: BP 128/74
[2017-03-03 14:22] VITALS: BP 100/60
--- NOTE | 2017-03-03 16:26 | NUR ---
Went in room to talk with pt about how he was feeling. he denies any suicidal or homicidal ideation at this time.
--- NOTE | 2017-03-03 16:56 | NUR ---
NURSING NOTE PT REPORTS FEELING DEPRESSED. STATES "I DONT WANT TO BE AROUND MUCH LONGER." REFERING TO HIS SONS, "THEY'RE GOING TO BE SORRY, THEN THEY'LL MISS ME." I ASKED WHAT THE PT MENT BY THAT. HE THEN REPLIED, "YOU KNOW WHAT I MEAN." I REPLIED, WHAT? HE STATED, "COME ON, YOU KNOW." AND HE LOOKED OUT THE WINDOW WITH A SAD LOOK ON HIS FACE. CHOCO, THE SALESPERSON [employer], ASKED IF HE IS THINKING ABOUT HURTING HIMSELF OR OTHERS; HE DENIED.
[2017-03-03 22:35] VITALS: BP 112/52
[2017-03-04 06:56] VITALS: BP 116/58
[2017-03-04 08:17] LABS: ABSOLUTE BASOPHIL COUNT 0 /CUMM (0.0-0.2); ABSOLUTE EOSINOPHIL COUNT 0.4 /CUMM (0.0-0.7); ABSOLUTE GRANULOCYTE CT 7.8 /CUMM (1.4-6.5); ABSOLUTE LYMPH COUNT 1.4 /CUMM (1.2-3.4); ABSOLUTE MONOCYTE COUNT 0.6 /CUMM (0.10-0.60); BASOPHIL % 0.4 % (0.0-2.0); EOSINOPHIL % 3.6 % (0-5); GRANULOCYTE % 76.2 % (42.2-75.2); HEMATOCRIT 26.7 % (42-52); MEAN CORPUSCULAR HGB CONC 32.4 G/DL (33.0-37.0); MEAN CORPUSCULAR VOLUME 86.7 FL (80.0-94.0); MEAN PLATELET VOLUME 8.1 FL (7.4-10.4); PLATELET COUNT 154 /CUMM (130-400); RBC DISTRIBUTION WIDTH 20.2 % (11.5-14.5); RED BLOOD CELL CT 3.08 /CUMM (4.70-6.10); WHITE BLOOD CELL COUNT 10.2 /CUMM (4.8-10.8)
--- NOTE | 2017-03-04 09:45 | PN- Att Addend ---
See Addendum Attending Addendum Attending Brief Note Patient seen and examined. Known to me from multiple previous admissions. He is depressed that his sons hardly come to visit him. Overall he feels very sad that he is going to be placed in a penitentiary and he feels that his sons will really feel it when he dies. He denies any active suicidality. On exam his pressure is 116/58, pulse is 64, breathing at 16-18 and afebrile. Orthostatics checked yesterday showed a systolic of 128 lying 118 sitting and 124 standing so he is negative as far as orthostatics go . He is awake alert and oriented, lungs have decreased breath sounds bilaterally, heart is S1-S2 is regular and abdomen is mildly distended but nontender. Labs show an INR of 3.08. He is a 72-year-old with multiple medical problems including chronic respiratory failure and COPD on oxygen, chronic diastolic failure, ESRD on hemodialysis, A. fib on Coumadin, gouty arthritis and peripheral vascular disease. He is here awaiting placement. Given that his INR is 3.08 will not dose any Coumadin today and check his INR in a.m.
[2017-03-04 12:25] VITALS: BP 120/60
--- NOTE | 2017-03-04 12:30 | NUR ---
PT ARRIVED BACK FROM DIALYSIS A/OX3. RAJazmin PARRISH W SUPERVISION. WEIGHED ON STANDING SCALE. FINGERSTICK 197. PO PILLS ADMINISTERED AND SC INSULIN GIVEN. UPPER ARM CIRCUMFERENCE: 32 CM. FOREARM CIRCUMFERENCE 31 CM. PT DENIES PAIN AT THIS TIME. OOB TO CHAIR AND EATING LUNCH. WILL MONITOR.
--- NOTE | 2017-03-04 13:45 | PN- Nephrology ---
Assessment/Plan Assessment: Dialyzed this AM without problems Continue TTS dialysis L arm edema Might ask Dr. Jackson to see Suggestion: . Subjective Subjective: Pt dialyzed earlier c/p left arm edema (AVF side) Objective Vital Signs and I&Os Vital Signs 120/60 97 69 Lungs clear Cor RRR Abd soft Ext neg LE edema Left arm/hand edema Results Pertinent Lab Results: Laboratory Tests 03/04 03/03 03/02 0750 0736 1225 Chemistry Sodium (137 - 145 mmol/L) 134 L Potassium (3.5 - 5.1 mmol/L) 4.1 Chloride (98 - 107 mmol/L) 95 L Carbon Dioxide (22 - 30 mmol/L) 24 Anion Gap (5 - 16) 15 BUN (9 - 20 mg/dL) 38 H Creatinine (0.7 - 1.2 mg/dL) 4.9 H Estimated GFR (>60 ml/min) 12 L BUN/Creatinine Ratio (7 - 25 %) 7.8 Calcium (8.4 - 10.2 mg/dL) 8.2 L Coagulation PT (9.4 - 12.5 SEC) 32.0 H 22.4 H 20.2 H INR (0.90 - 1.17) 3.08 H 2.15 H 1.94 H Hematology CBC w Diff NO MAN DIFF REQ WBC (4.8 - 10.8 /CUMM) 10.2 RBC (4.70 - 6.10 /CUMM) 3.08 L Hgb (14.0 - 18.0 G/DL) 8.6 L Hct (42 - 52 %) 26.7 L MCV (80.0 - 94.0 FL) 86.7 MCH (27.0 - 31.0 PG) 28.0 RDW (11.5 - 14.5 %) 20.2 H Plt Count (130 - 400 /CUMM) 154 MPV (7.4 - 10.4 FL) 8.1 Gran % (42.2 - 75.2 %) 76.2 H Lymphocytes % (20.5 - 51.1 %) 13.6 L Monocytes % (1.7 - 9.3 %) 6.2 Eosinophils % (0 - 5 %) 3.6 Basophils % (0.0 - 2.0 %) 0.4 Absolute Granulocytes (1.4 - 6.5 /CUMM) 7.8 H Absolute Lymphocytes (1.2 - 3.4 /CUMM) 1.4 Absolute Monocytes (0.10 - 0.60 /CUMM) 0.6 Absolute Eosinophils (0.0 - 0.7 /CUMM) 0.4 Absolute Basophils (0.0 - 0.2 /CUMM) 0 PUBS MCHC (33.0 - 37.0 G/DL) 32.4 L 03/02 03/02 1137 0805 Chemistry Sodium (137 - 145 mmol/L) 137 Potassium (3.5 - 5.1 mmol/L) 4.0 Chloride (98 - 107 mmol/L) 98 Carbon Dioxide (22 - 30 mmol/L) 23 Anion Gap (5 - 16) 16 BUN (9 - 20 mg/dL) 9 38 H Creatinine (0.7 - 1.2 mg/dL) 5.8 *H Estimated GFR (>60 ml/min) 10 L BUN/Creatinine Ratio (7 - 25 %) 6.6 L Glucose (65 - 99 mg/dL) 161 H Calcium (8.4 - 10.2 mg/dL) 8.4 Phosphorus (2.5 - 4.5 mg/dL) 5.4 H Magnesium (1.6 - 2.3 mg/dL) 1.7 Albumin (3.5 - 5.0 g/dL) 3.2 L Hematology CBC w Diff NO MAN DIFF REQ WBC (4.8 - 10.8 /CUMM) 10.1 RBC (4.70 - 6.10 /CUMM) 3.11 L Hgb (14.0 - 18.0 G/DL) 8.9 L Hct (42 - 52 %) 27.4 L MCV (80.0 - 94.0 FL) 88.1 MCH (27.0 - 31.0 PG) 28.4 RDW (11.5 - 14.5 %) 20.2 H Plt Count (130 - 400 /CUMM) 137 MPV (7.4 - 10.4 FL) 8.4 Gran % (42.2 - 75.2 %) 77.5 H Lymphocytes % (20.5 - 51.1 %) 11.8 L Monocytes % (1.7 - 9.3 %) 6.7 Eosinophils % (0 - 5 %) 3.7 Basophils % (0.0 - 2.0 %) 0.3 Absolute Granulocytes (1.4 - 6.5 /CUMM) 7.8 H Absolute Lymphocytes (1.2 - 3.4 /CUMM) 1.2 Absolute Monocytes (0.10 - 0.60 /CUMM) 0.7 H Absolute Eosinophils (0.0 - 0.7 /CUMM) 0.4 Absolute Basophils (0.0 - 0.2 /CUMM) 0 PUBS MCHC (33.0 - 37.0 G/DL) 32.3 L
[2017-03-04 14:17] VITALS: BP 120/60
--- NOTE | 2017-03-04 16:12 | NUR ---
PT STATED HIS L HAND IS MORE RED THAN USUAL AND PAIN INCREASING. ON SCALE 1-10, PT STATES "I DON'T KNOW, ITS IRRITATING". PT WANTED TO KNOW IF HE COULD HAVE SOMETHING FOR PAIN, STRONGER THAN TYLENOL. HAS ELEVATED. DR. GARCIA CALLED. WILL BE IN HOSPITAL TO SEE PT 30 MINUTES FROM CONVERSATION. PT WILLING TO TAKE TYLENOL IN THE WAITING TIME BEFORE MD ARRIVES. WILL MONITOR.
--- NOTE | 2017-03-04 18:21 | Event Note ---
Event Note Event Note: Was called by medicine air operations manager attending regarding left upper extremity forearm edema. Patient states he has had swelling of his left arm ever since a left brachiocephalic avf was placed on 01/26/17. He intermittently elevates it, but does admit to dangling his arm for 40% of the day. Denies fever, chills, CP/SOB, N/V. T: 98.2 P : 68 R: 20 BPL 120/60 O2: 95% RA WBC: 10K LUE examined. Palpable radial and ulnar pulse. Palpable thrill. Bruit auscultated to left brachiocephalic AVF. Hand warm, sensation and motor exam grossly intact. Edema 1+ from tips of fingers to antecubital area. Edema spares above antecubital area. DVT study: pending A: s/p left brachiocephalic AVF placed 01/26/17 with edema to left upper extremity. Awaiting DVT study. Plan: F/U DVT study to LUE. Elevate left upper extremity with at least 3 pillows at all times. Dilan wrap to left upper extremity; should be removed for DVT study in am. Discussed with Dr. Benitez, air operations manager vascular attending.
[2017-03-04 21:49] VITALS: BP 102/42
[2017-03-05 07:48] VITALS: BP 100/60
[2017-03-05 08:20] LABS: PT 21.2 SEC (9.4-12.5)
--- NOTE | 2017-03-05 10:09 | NUR ---
PT TO ULTRASOUND AT 1009.
--- NOTE | 2017-03-05 10:56 | PN- Att Addend ---
Attending Addendum Attending Brief Note Pt still continues to complain of left arm and hand swelling. He says the colchicine helped him somewhat. On exam he is afebrile, blood pressures are 110 /70, pulse rate is 76 and breathing at 16-18. Lungs have decreased breath sounds bilaterally, heart is S1-S2 distant, abdomen is obese nontender and he does have pretty extensive edema all over the dorsal aspect of his left hand and his forearm up to antecubital or just above antecubital fossa. He has good pulses and neurovascularly he is intact. He is a 72-year-old with multiple medical problems including A. fib on Coumadin, diastolic heart failure, COPD and chronic respiratory failure on oxygen, ESRD on hemodialysis. He is getting his dialysis through a right Ilya catheter and he had a left AV fistula placed by Dr. Jackson in January and he says since then he 's had this progressively increasing swelling. His INR on Coumadin yesterday was 3 and today is 2. I've dose him at 5 mg of Coumadin today. His home dose is anywhere from 5-2.5. The Doppler ultrasound will be done today. He was seen by the surgical PA and will recall them based on the results of the Doppler ultrasound. Nonetheless I do believe he needs vascular follow-up for the swelling.
--- NOTE | 2017-03-05 11:06 | ULTRASOUND REPORT ---
EXAMINATION: US TRIPLEX UPPER EXTREMITY, LEFT CLINICAL INFORMATION: Left upper extremity edema and swelling. COMPARISON: Left upper extremity venous ultrasound dated 02/06/2017. TECHNIQUE: Color-flow triplex imaging with spectral analysis and compression Doppler were performed on the left upper extremity. FINDINGS: The left internal jugular, subclavian, axillary, brachial, basilic and cephalic veins show normal lung compressibility. No deep venous thrombosis is seen. In the median antecubital fossa, there is a subcutaneous hypoechoic collection with internal reticulated contents, likely an organizing hematoma, measuring 3.4 x 3.2 x 2.9 cm. IMPRESSION: 1. Unremarkable triplex scan without evidence of deep venous thrombosis involving the left upper extremity. 2. There is a left antecubital fossa subcutaneous reticulated collection, likely an organizing hematoma. Dimensions are as above.
--- NOTE | 2017-03-05 12:54 | NUR ---
LEFT ARM MEASUREMENT: LEFT LOWER ARM: 30.5 CM LEFT UPPER ARM: 31.5 CM
[2017-03-05 14:23] VITALS: BP 120/68
--- NOTE | 2017-03-05 21:14 | NUR ---
LEFT ARM MEASUREMENTS : UPPER ARM 31.5, LOWER ARM 30.5
[2017-03-05 21:50] VITALS: BP 112/34
[2017-03-05 22:22] VITALS: BP 112/40
--- NOTE | 2017-03-05 22:26 | NUR ---
MST REPORTED BP 100/34 AT THIS TIME. THIS NURSE TOOK BP 118/40. HR 58. PT ASYMPTOMATIC. CALL TO MOD TO MAKE AWARE. NO NEW ORDERS AT THIS TIME. WILL RECHECK IN 1 HOUR. WILL CONTINUE TO MONITOR
[2017-03-05 23:49] VITALS: BP 108/46; BP 108/56
[2017-03-06 07:41] VITALS: BP 120/54
[2017-03-06 08:15] LABS: PT 18.3 SEC (9.4-12.5)
--- NOTE | 2017-03-06 10:31 | PN- Att Addend ---
Attending Addendum Attending Brief Note 72M PMH COPD, ESRD on HD, paroxysmal atrial fibrillation on Coumadin, chronic diastolic CHF, T2DM, PVD, CAD, history of MGUS, neuropathy who was originally admitted with ischemic bowel which required resection and colostomy. Currently patient is undergoing hemodialysis Monday per nephrology. He is awaiting for insurance paperwork to be completed so that he can be placed in a [facility]. Today patient reports that his breathing is a bit better than yesterday. He denies pain. His left arm and hand are less swollen than yesterday, though he reports his hand feels tight due to the swelling (which has been chronic since AV-fistula placement in January 2017). Review of systems normal. AFVSS NAD NCAT Supple RRR Mild wheezes bilaterally Soft, NTND, ostomy clean No LE edema, LUE edematous, non-tender Pulses intact A&Ox3 no focal deficits Current Medications Sig/Johnna Start time Last Medication Dose Route Stop Time Status Admin Acetaminophen 650 MG Q4P PRN 01/31 1100 AC 03/06 PO 0333 Albuterol Sulfate 2 PUF Q4P PRN 02/06 0800 AC 02/06 INH 1313 Albuterol Sulfate 3 ML EVERY 4 HRS/AWAKE 02/05 1600 AC 03/06 INH 0914 Allopurinol 100 MG DAILY 02/20 1818 AC 03/06 PO 1019 Calcitriol 0.25 MCG TuThSa PRN 03/04 0745 AC IV Colchicine 300 MCG QTHURS 03/09 1000 AC PO Colchicine 300 MCG QSUN 03/05 0700 AC 03/05 PO 0639 Diclofenac Sodium 1 MAI 4 TIMES/DAY 02/05 1400 AC 03/06 TOP 1020 Epoetin Guzman 4,000 UNIT TuThSa PRN 03/04 0745 AC IV Furosemide 80 MG DAILY 02/08 1138 AC 03/06 PO 1019 Guaifenesin 600 MG Q12 02/16 1000 AC 03/06 PO 1019 Guaifenesin/ 10 ML Q6P PRN 02/22 2130 AC 03/03 Dextromethorphan PO 0137 Insulin Aspart 0 AT BEDTIME 02/01 2200 AC 02/16 SC 2138 Insulin Aspart 0 TIDAC 02/01 1200 AC 03/06 SC 0746 Omeprazole 40 MG DAILY AC 02/12 1200 AC 03/06 PO 0605 Sodium Chloride 2 SPRAY Q4P PRN 01/31 0430 AC 02/05 CHULA 2133 Trazodone HCl 50 MG AT BEDTIME 01/30 2200 AC 03/05 PO 2140 Warfarin Sodium 5 MG COUMADIN 1700 ONE 03/06 1700 UNVr PO 03/06 1701 Warfarin Sodium 5 MG COUMADIN 1700 ONE 03/05 1700 DC 03/05 PO 03/05 1701 1645 Laboratory Tests 03/06 0700 Coagulation PT (9.4 - 12.5 SEC) 18.3 H INR (0.90 - 1.17) 1.75 H Plan - Continue current management - Follow vascular recommendations for arm swelling - Continue Coumadin - Follow up with social work and case management regarding placement to [facility]
[2017-03-06 14:10] VITALS: BP 100/59
--- NOTE | 2017-03-06 19:54 | NUR ---
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 SEE NEW ORDER FOR PO VICODIN- ADMINISTERED ORDERED. ORDER IS ONE TIME. WILL CONTINUE TO MONITOR.
[2017-03-06 22:31] VITALS: BP 96/60
[2017-03-07 06:41] VITALS: BP 122/60
--- NOTE | 2017-03-07 07:45 | NUR ---
PT LEFT UNIT FOR DIALYSIS. A/OX3. RA. COLOSTOMY TO R ABDOMEN EMPTIED OF FLATUS. SOFT, BROWN STOOL NOTED. L SIDED MUCOUS PLUG C/D/I. MIDLINE DRSG IN PLACE. DENIES PAIN. BS 168. WILL NOT TAKE BREAKFAST TO DIALYSIS.
[2017-03-07 08:09] LABS: PT 19.2 SEC (9.4-12.5)
[2017-03-07 08:21] LABS: ABSOLUTE BASOPHIL COUNT 0 /CUMM (0.0-0.2); ABSOLUTE EOSINOPHIL COUNT 0.4 /CUMM (0.0-0.7); ABSOLUTE GRANULOCYTE CT 6.6 /CUMM (1.4-6.5); ABSOLUTE LYMPH COUNT 1.2 /CUMM (1.2-3.4); ABSOLUTE MONOCYTE COUNT 0.7 /CUMM (0.10-0.60); BASOPHIL % 0.5 % (0.0-2.0); EOSINOPHIL % 4.5 % (0-5); GRANULOCYTE % 73.9 % (42.2-75.2); HEMATOCRIT 26.1 % (42-52); MEAN CORPUSCULAR VOLUME 87.7 FL (80.0-94.0); MEAN PLATELET VOLUME 8.2 FL (7.4-10.4); PLATELET COUNT 151 /CUMM (130-400); RBC DISTRIBUTION WIDTH 20.4 % (11.5-14.5); RED BLOOD CELL CT 2.98 /CUMM (4.70-6.10); WHITE BLOOD CELL COUNT 8.9 /CUMM (4.8-10.8)
--- NOTE | 2017-03-07 11:46 | PN- Nephrology ---
Assessment/Plan Assessment: 1. ESRD 2. Status post bowel resection with colostomy 01/28/17 for ischemic bowel 3. Persistent, albeit slowly improving, edema left upper extremity status post creation of left brachiocephalic AVF 01/26/17 4. COPD and multiple other comorbidities Suggestion: 1. Hemodialysis today in progress with ultrafiltration to his target weight of 81 kg 2. Continue other supportive measures Subjective Subjective: Patient still complaining of pain in his left arm. He has no other complaints at the moment although he looks generally unhappy. Seen with hemodialysis. Labs reviewed. Objective Vital Signs and I&Os Vital Signs Date Time Temp Pulse Resp B/P B/P Pulse O2 O2 Flow FiO2 Mean Ox Delivery Rate 03/07 0830 95 Room Air 03/07 0641 98.2 62 19 122/60 93 Room Air 03/07 0130 95 Room Air 03/07 0000 Room Air 03/06 2231 98.3 68 19 96/60 94 Room Air 03/06 1700 96 Room Air 03/06 1410 98.2 60 19 100/59 96 Intake & Output 03/07 1600 03/07 0400 03/06 1600 03/06 0400 03/05 1600 03/05 0400 Intake Total 240 850 990 360 Output Total 100 150 200 650 200 Balance 140 700 -200 340 160 Intake, IV 0 Intake, Oral 240 850 990 360 Output, Stool 150 150 550 200 Output, Urine 100 50 100 Patient 185 lb 183 lb 181 lb Weight Weight Standing Scale Measurement Method Physical Exam: General: Well-developed white male in NAD Skin: No rash or jaundice HEENT: Conjunctivae pink, sclerae anicteric, mucous membranes moist Neck: Without masses or thyromegaly, no supraclavicular or cervical adenopathy Chest: Clear anterolaterally Heart: Regular rate and rhythm without S3 or rub Abdomen: Obese, soft and nontender; colostomy Extremities: Without LE cyanosis or edema; +LUE edema Neuro: No focal findings, no asterixis or myoclonus Current Medications: Current Medications Sig/Johnna Start time Last Medication Dose Route Stop Time Status Admin Acetaminophen 650 MG .STK-MED ONE 03/06 1306 DC PO 03/06 1307 Acetaminophen 650 MG Q4P PRN 01/31 1100 AC 03/07 PO 0512 Acetaminophen/ 1 TAB ONCE ONE 03/06 190 DC 03/06 Hydrocodone Bitart PO 03/06 1901 1900 Albuterol Sulfate 2 PUF Q4P PRN 02/06 0800 AC 02/06 INH 1313 Albuterol Sulfate 3 ML EVERY 4 HRS/AWAKE 02/05 1600 AC 03/07 INH 0817 Allopurinol 100 MG DAILY 02/20 1818 AC 03/06 PO 1019 Calcitriol 0.25 MCG TuThSa PRN 03/04 0745 AC IV Colchicine 300 MCG QTHURS 03/09 1000 AC PO Colchicine 300 MCG QSUN 03/05 0700 AC 03/05 PO 0639 Diclofenac Sodium 1 MAI 4 TIMES/DAY 02/05 1400 AC 03/06 TOP 2048 Epoetin Guzman 4,000 UNIT TuThSa PRN 03/04 0745 AC IV Furosemide 80 MG DAILY 02/08 1138 AC 03/06 PO 1019 Guaifenesin 600 MG Q12 02/16 1000 AC 03/06 PO 2047 Guaifenesin/ 10 ML Q6P PRN 02/22 2130 AC 03/03 Dextromethorphan PO 0137 Hydromorphone HCl 2 MG ONCE ONE 03/07 1030 DC PO 03/07 1031 Insulin Aspart 0 AT BEDTIME 02/01 2200 AC 02/16 SC 2138 Insulin Aspart 0 TIDAC 02/01 1200 AC 03/06 SC 1700 Omeprazole 40 MG DAILY AC 02/12 1200 AC 03/07 PO 0624 Sodium Chloride 2 SPRAY Q4P PRN 01/31 0430 AC 02/05 CHULA 2133 Trazodone HCl 50 MG AT BEDTIME 01/30 2200 AC 03/06 PO 2047 Warfarin Sodium 5 MG COUMADIN 170 ONE 03/07 1700 AC PO 03/07 1701 Warfarin Sodium 5 MG COUMADIN 1700 ONE 03/06 1700 DC 03/06 PO 03/06 1701 1701 Results Pertinent Lab Results: Laboratory Tests 03/07 03/06 03/05 0740 0700 0624 Chemistry Sodium (137 - 145 mmol/L) 136 L Potassium (3.5 - 5.1 mmol/L) 4.5 Chloride (98 - 107 mmol/L) 100 Carbon Dioxide (22 - 30 mmol/L) 23 Anion Gap (5 - 16) 14 BUN (9 - 20 mg/dL) 47 H Creatinine (0.7 - 1.2 mg/dL) 5.5 *H Estimated GFR (>60 ml/min) 10 L BUN/Creatinine Ratio (7 - 25 %) 8.5 Calcium (8.4 - 10.2 mg/dL) 8.3 L Coagulation PT (9.4 - 12.5 SEC) 19.2 H 18.3 H 21.2 H INR (0.90 - 1.17) 1.84 H 1.75 H 2.03 H Hematology CBC w Diff NO MAN DIFF REQ WBC (4.8 - 10.8 /CUMM) 8.9 RBC (4.70 - 6.10 /CUMM) 2.98 L Hgb (14.0 - 18.0 G/DL) 8.4 L Hct (42 - 52 %) 26.1 L MCV (80.0 - 94.0 FL) 87.7 MCH (27.0 - 31.0 PG) 28.0 RDW (11.5 - 14.5 %) 20.4 H Plt Count (130 - 400 /CUMM) 151 MPV (7.4 - 10.4 FL) 8.2 Gran % (42.2 - 75.2 %) 73.9 Lymphocytes % (20.5 - 51.1 %) 13.7 L Monocytes % (1.7 - 9.3 %) 7.4 Eosinophils % (0 - 5 %) 4.5 Basophils % (0.0 - 2.0 %) 0.5 Absolute Granulocytes (1.4 - 6.5 /CUMM) 6.6 H Absolute Lymphocytes (1.2 - 3.4 /CUMM) 1.2 Absolute Monocytes (0.10 - 0.60 /CUMM) 0.7 H Absolute Eosinophils (0.0 - 0.7 /CUMM) 0.4 Absolute Basophils (0.0 - 0.2 /CUMM) 0 PUBS MCHC (33.0 - 37.0 G/DL) 32.0 L
[2017-03-07 12:00] VITALS: BP 120/50
--- NOTE | 2017-03-07 12:00 | NUR ---
PT RETURNED FROM DIALYSIS. WEIGHT COMPLETED AND FINGERSTICK 113. SPOKE WITH DR. MARQUEZ REGARDING POC. WHEN MST ATTEMPTED TO TAKE BLOOD SUGAR, PT BECAME UPSET. DIETARY FOLLOWED MST INTO ROOM, PT TOLD DIETARY "I AM NOT GOING TO EAT IF I CANNOT HAVE ANYTHING THAT I WANT." WHEN ATTEMPTED TO EXPLAIN DIET, PT REFUSED FURTHER AND ASKED DIETARY TO LEAVE. NURSE ENTERED ROOM TO ASSESS PT AND ADDRESS CONCERNS. REFUSED RESPIRATORY ASSESSMENT AND TREATMENT. REFUSED PO MEDICATIONS. REFUSED TO DISCUSS PAIN OR HOW HE WAS FEELING. REQUEST TO HAVE COFFEE AND TO BE LEFT ALONE. DR. MARQUEZ NOTIFIED, WILL SEE PATIENT LATER TODAY TO FOLLOW UP. PT RESTING IN BED AT THIS TIME. WILL MONITOR.
--- NOTE | 2017-03-07 12:24 | PN- Att Addend ---
Attending Addendum Attending Brief Note 72M PMH COPD, ESRD on HD, paroxysmal atrial fibrillation on Coumadin, chronic diastolic CHF, T2DM, PVD, CAD, history of MGUS, neuropathy who was originally admitted with ischemic bowel which required resection and colostomy. Also with chronic left arm swelling since undergoing AV-fistula placement on 01/30/17. Currently patient is undergoing hemodialysis Monday per nephrology. He is awaiting for insurance paperwork to be completed so that he can be placed in a intermediate. Patient had dialysis today which made him tired, but he is otherwise well. He reports mild left hand pain but only wants Tylenol for it. His left arm and hand are less swollen than yesterday. Review of systems normal. AFVSS NAD NCAT Supple RRR Mild wheezes bilaterally Soft, NTND, ostomy clean No LE edema, LUE edematous, non-tender Pulses intact A&Ox3 no focal deficits Current Medications Sig/Johnna Start time Last Medication Dose Route Stop Time Status Admin Acetaminophen 650 MG .STK-MED ONE 03/06 1306 DC PO 03/06 1307 Acetaminophen 650 MG Q4P PRN 01/31 1100 AC 03/07 PO 0512 Acetaminophen/ 1 TAB ONCE ONE 03/06 1900 DC 03/06 Hydrocodone Bitart PO 03/06 1901 1900 Albuterol Sulfate 2 PUF Q4P PRN 02/06 0800 AC 02/06 INH 1313 Albuterol Sulfate 3 ML EVERY 4 HRS/AWAKE 02/05 1600 AC 03/07 INH 0817 Allopurinol 100 MG DAILY 02/20 1818 AC 03/06 PO 1019 Calcitriol 0.25 MCG TuThSa PRN 03/04 0745 AC IV Colchicine 300 MCG QTHURS 03/09 1000 AC PO Colchicine 300 MCG QSUN 03/05 0700 AC 03/05 PO 0639 Diclofenac Sodium 1 MAI 4 TIMES/DAY 02/05 1400 AC 03/06 TOP 2048 Epoetin Guzman 4,000 UNIT TuThSa PRN 03/04 0745 AC IV Furosemide 80 MG DAILY 02/08 1138 AC 03/06 PO 1019 Guaifenesin 600 MG Q12 02/16 1000 AC 03/06 PO 2047 Guaifenesin/ 10 ML Q6P PRN 02/22 2130 AC 03/03 Dextromethorphan PO 013 Hydromorphone HCl 2 MG ONCE ONE 03/07 1030 DC PO 03/07 1031 Insulin Aspart 0 AT BEDTIME 02/01 2200 AC 02/16 SC 213 Insulin Aspart 0 TIDAC 02/01 1200 AC 03/06 SC 1700 Omeprazole 40 MG DAILY AC 02/12 1200 AC 03/07 PO 0624 Sodium Chloride 2 SPRAY Q4P PRN 01/31 0430 AC 02/05 CHULA 2133 Trazodone HCl 50 MG AT BEDTIME 01/30 2200 AC 03/06 PO 2047 Warfarin Sodium 5 MG COUMADIN 170 ONE 03/07 1700 AC PO 03/07 170 Warfarin Sodium 5 MG COUMADIN 170 ONE 03/06 1700 DC 03/06 PO 03/06 170 170 Laboratory Tests 03/07 0740 Chemistry Sodium (137 - 145 mmol/L) 136 L Potassium (3.5 - 5.1 mmol/L) 4.5 Chloride (98 - 107 mmol/L) 100 Carbon Dioxide (22 - 30 mmol/L) 23 Anion Gap (5 - 16) 14 BUN (9 - 20 mg/dL) 47 H Creatinine (0.7 - 1.2 mg/dL) 5.5 *H Estimated GFR (>60 ml/min) 10 L BUN/Creatinine Ratio (7 - 25 %) 8.5 Calcium (8.4 - 10.2 mg/dL) 8.3 L Coagulation PT (9.4 - 12.5 SEC) 19.2 H INR (0.90 - 1.17) 1.84 H Hematology CBC w Diff NO MAN DIFF REQ WBC (4.8 - 10.8 /CUMM) 8.9 RBC (4.70 - 6.10 /CUMM) 2.98 L Hgb (14.0 - 18.0 G/DL) 8.4 L Hct (42 - 52 %) 26.1 L MCV (80.0 - 94.0 FL) 87.7 MCH (27.0 - 31.0 PG) 28.0 RDW (11.5 - 14.5 %) 20.4 H Plt Count (130 - 400 /CUMM) 151 MPV (7.4 - 10.4 FL) 8.2 Gran % (42.2 - 75.2 %) 73.9 Lymphocytes % (20.5 - 51.1 %) 13.7 L Monocytes % (1.7 - 9.3 %) 7.4 Eosinophils % (0 - 5 %) 4.5 Basophils % (0.0 - 2.0 %) 0.5 Absolute Granulocytes (1.4 - 6.5 /CUMM) 6.6 H Absolute Lymphocytes (1.2 - 3.4 /CUMM) 1.2 Absolute Monocytes (0.10 - 0.60 /CUMM) 0.7 H Absolute Eosinophils (0.0 - 0.7 /CUMM) 0.4 Absolute Basophils (0.0 - 0.2 /CUMM) 0 PUBS MCHC (33.0 - 37.0 G/DL) 32.0 L Plan - Continue current management - Follow vascular recommendations for arm swelling - Continue Coumadin - Follow up with social work and case management regarding placement to [facility]
--- NOTE | 2017-03-07 14:05 | NUR ---
PT HAS BEEN SLEEPING FOR THE LAST HOUR AND A HALF. NO PAIN/DISCOMFORT NOTED. WILL MONITOR.
[2017-03-07 14:25] VITALS: BP 120/60
[2017-03-07 22:08] VITALS: BP 106/46
[2017-03-07 22:57] VITALS: BP 112/40
--- NOTE | 2017-03-07 23:20 | NUR ---
PT BLOOD PRESSURE 112/40 MOD AWARE, ASYMPTOMATIC, WILL RECHECK IN ONE HOUR.
[2017-03-08 00:46] VITALS: BP 106/40
[2017-03-08 06:40] VITALS: BP 108/46
[2017-03-08 08:39] LABS: PT 17.8 SEC (9.4-12.5)
--- NOTE | 2017-03-08 10:10 | PN- Att Addend ---
Attending Addendum Attending Brief Note 72M PMH COPD, ESRD on HD, paroxysmal atrial fibrillation on Coumadin, chronic diastolic CHF, T2DM, PVD, CAD, history of MGUS, neuropathy who was originally admitted with ischemic bowel which required resection and colostomy. Also with chronic left arm swelling since undergoing AV-fistula placement on 01/30/17. Currently patient is undergoing hemodialysis Monday per nephrology. He is awaiting for insurance paperwork to be completed so that he can be placed in a care home. Patient feels fatigued today, otherwise no complaints. BP low with diastolic in 40's overnight and into the morning, but this is chronic and typical for patient. INR is still subtherapeutic 1.70. Review of systems normal. AFVSS NAD NCAT Supple RRR Mild wheezes bilaterally Soft, NTND, ostomy clean No LE edema, LUE edematous, non-tender Pulses intact A&Ox3 no focal deficits Current Medications Sig/Johnna Start time Last Medication Dose Route Stop Time Status Admin Acetaminophen 650 MG Q4P PRN 01/31 1100 AC 03/07 PO 0512 Albuterol Sulfate 2 PUF Q4P PRN 02/06 0800 AC 02/06 INH 1313 Albuterol Sulfate 3 ML EVERY 4 HRS/AWAKE 02/05 1600 AC 03/08 INH 0809 Allopurinol 100 MG DAILY 02/20 1818 AC 03/06 PO 1019 Calcitriol 0.25 MCG TuThSa PRN 03/04 0745 AC IV Colchicine 300 MCG QTHURS 03/09 1000 AC PO Colchicine 300 MCG QSUN 03/05 0700 AC 03/05 PO 0639 Diclofenac Sodium 1 MAI 4 TIMES/DAY 02/05 1400 AC 03/06 TOP 2048 Epoetin Guzman 4,000 UNIT TuThSa PRN 03/04 0745 AC IV Furosemide 80 MG DAILY 02/08 1138 AC 03/06 PO 1019 Guaifenesin 10 ML .STK-MED ONE 03/07 2110 DC PO 03/07 211 Guaifenesin 600 MG Q12 02/16 1000 AC 03/07 PO 2107 Guaifenesin/ 10 ML Q6P PRN 02/22 2130 AC 03/07 Dextromethorphan PO 211 Hydromorphone HCl 2 MG ONCE ONE 03/07 1030 DC PO 03/07 1031 Insulin Aspart 0 AT BEDTIME 02/010 AC 02/16 SC 2138 Insulin Aspart 0 TIDAC 02/01 1200 AC 03/08 SC 0811 Omeprazole 40 MG DAILY AC 02/12 1200 AC 03/08 PO 0733 Sodium Chloride 2 SPRAY Q4P PRN 01/31 0430 AC 02/05 CHULA 2133 Trazodone HCl 50 MG AT BEDTIME 01/30 2200 AC 03/07 PO 2107 Warfarin Sodium 6 MG COUMADIN 1700 ONE 03/08 1700 UNVr PO 03/08 170 Warfarin Sodium 5 MG COUMADIN 1700 ONE 03/07 1700 DC 03/07 PO 03/07 1701 1750 Laboratory Tests 03/08 0635 Coagulation PT (9.4 - 12.5 SEC) 17.8 H INR (0.90 - 1.17) 1.70 H Plan - Continue current management - Follow vascular recommendations for arm swelling - Continue Coumadin, will increase dose to 6mg today - Follow nephrology recommendations - Follow up with social work and case management regarding placement to [facility]
[2017-03-08 14:24] VITALS: BP 118/72
[2017-03-08 22:45] VITALS: BP 120/64
[2017-03-09 06:55] VITALS: BP 108/38
--- NOTE | 2017-03-09 10:37 | PN- Att Addend ---
Attending Addendum Attending Brief Note 72M PMH COPD, ESRD on HD, paroxysmal atrial fibrillation on Coumadin, chronic diastolic CHF, T2DM, PVD, CAD, history of MGUS, neuropathy who was originally admitted with ischemic bowel which required resection and colostomy. Also with chronic left arm swelling since undergoing AV-fistula placement on 01/30/17. Currently patient is undergoing hemodialysis Monday per nephrology. He is awaiting for insurance paperwork to be completed so that he can be placed in a halfway. Patient feels ok today. Still has left hand soreness but swelling is improved. BP low with diastolic in 40's overnight and into the morning, but this is chronic and typical for patient. Review of systems normal. AFVSS NAD NCAT Supple RRR Mild wheezes bilaterally Soft, NTND, ostomy clean No LE edema, LUE edematous, non-tender Pulses intact A&Ox3 no focal deficits Current Medications Sig/Johnna Start time Last Medication Dose Route Stop Time Status Admin Acetaminophen 650 MG Q4P PRN 01/31 1100 AC 03/07 PO 0512 Albuterol Sulfate 2 PUF Q4P PRN 02/06 0800 AC 02/06 INH 1313 Albuterol Sulfate 3 ML EVERY 4 HRS/AWAKE 02/05 1600 AC 03/09 INH 0817 Allopurinol 100 MG DAILY 02/20 1818 AC 03/09 PO 0802 Calcitriol 0.25 MCG TuThSa PRN 03/04 0745 AC IV Colchicine 300 MCG QTHURS 03/09 1000 AC 03/09 PO 0802 Colchicine 300 MCG QSUN 03/05 0700 AC 03/05 PO 0639 Diclofenac Sodium 1 MAI 4 TIMES/DAY 02/05 1400 AC 03/09 TOP 0802 Epoetin Guzman 4,000 UNIT TuThSa PRN 03/04 0745 AC IV Furosemide 80 MG DAILY 02/08 1138 AC 03/09 PO 0802 Guaifenesin 600 MG Q12 02/16 1000 AC 03/09 PO 0802 Guaifenesin/ 10 ML Q6P PRN 02/22 2130 AC 03/07 Dextromethorphan PO 2112 Insulin Aspart 0 AT BEDTIME 02/01 2200 AC 02/16 SC 2138 Insulin Aspart 0 TIDAC 02/01 1200 AC 03/09 SC 0802 Omeprazole 40 MG DAILY AC 02/12 1200 AC 05/04 PO 0550 Sodium Chloride 2 SPRAY Q4P PRN 01/31 0430 AC 02/05 CHULA 2133 Trazodone HCl 50 MG AT BEDTIME 01/30 2200 AC 03/08 PO 2052 Warfarin Sodium 6 MG COUMADIN 1700 ONE 03/08 1700 DC 03/08 PO 03/08 1701 1742 Plan - Continue current management - Follow vascular recommendations for arm swelling - Will dose Coumadin - Follow nephrology recommendations - Follow up with social work and case management regarding placement to [facility]
--- NOTE | 2017-03-09 13:14 | PN- Nephrology ---
Assessment/Plan Assessment: 1. ESRD 2. Status post bowel resection with colostomy 01/28/17 for ischemic bowel 3. Persistent, albeit slowly improving, edema left upper extremity status post creation of left brachiocephalic AVF 01/26/17 4. COPD and multiple other comorbidities Suggestion: 1. Hemodialysis today in progress with ultrafiltration to his target weight of 81 kg 2. Will check serum phosphorus, magnesium and URR today 3. Mobilize Subjective Subjective: Still having pain in left hand. Otherwise no specific complaints. Seen with hemodialysis. Objective Vital Signs and I&Os Vital Signs Date Time Temp Pulse Resp B/P B/P Pulse O2 O2 Flow FiO2 Mean Ox Delivery Rate 03/09 0819 99 Room Air Room Air 03/09 0655 98.7 78 20 108/38 95 Room Air 03/09 0308 96 Room Air 03/08 2245 98.2 82 20 120/64 96 Room Air 03/08 1600 94 Room Air 03/08 1424 98.0 60 20 118/72 93 Intake & Output 03/09 0400 03/08 1600 03/08 0400 03/07 1600 03/07 0400 Intake Total 480 480 480 120 480 Output Total 140 300 100 Balance 480 340 180 120 380 Intake, IV 0 Intake, Oral 480 480 480 120 480 Output, Stool 300 Output, Urine 140 100 Patient 185 lb 185 lb 182 lb Weight Weight Standing Scale Standing Scale Standing Scale Measurement Method Physical Exam: General: Well-developed white male in NAD Skin: No rash or jaundice HEENT: Conjunctivae pink, sclerae anicteric, mucous membranes moist Neck: Without masses or thyromegaly, no supraclavicular or cervical adenopathy Chest: Clear anterolaterally Heart: Regular rate and rhythm without S3 or rub Abdomen: Obese, soft and nontender; colostomy Extremities: Without LE cyanosis or edema; +LUE edema Neuro: No focal findings, no asterixis or myoclonus Results Pertinent Lab Results: Laboratory Tests 03/08 03/07 0635 0740 Chemistry Sodium (137 - 145 mmol/L) 136 L Potassium (3.5 - 5.1 mmol/L) 4.5 Chloride (98 - 107 mmol/L) 100 Carbon Dioxide (22 - 30 mmol/L) 23 Anion Gap (5 - 16) 14 BUN (9 - 20 mg/dL) 47 H Creatinine (0.7 - 1.2 mg/dL) 5.5 *H Estimated GFR (>60 ml/min) 10 L BUN/Creatinine Ratio (7 - 25 %) 8.5 Calcium (8.4 - 10.2 mg/dL) 8.3 L Coagulation PT (9.4 - 12.5 SEC) 17.8 H 19.2 H INR (0.90 - 1.17) 1.70 H 1.84 H Hematology CBC w Diff NO MAN DIFF REQ WBC (4.8 - 10.8 /CUMM) 8.9 RBC (4.70 - 6.10 /CUMM) 2.98 L Hgb (14.0 - 18.0 G/DL) 8.4 L Hct (42 - 52 %) 26.1 L MCV (80.0 - 94.0 FL) 87.7 MCH (27.0 - 31.0 PG) 28.0 RDW (11.5 - 14.5 %) 20.4 H Plt Count (130 - 400 /CUMM) 151 MPV (7.4 - 10.4 FL) 8.2 Gran % (42.2 - 75.2 %) 73.9 Lymphocytes % (20.5 - 51.1 %) 13.7 L Monocytes % (1.7 - 9.3 %) 7.4 Eosinophils % (0 - 5 %) 4.5 Basophils % (0.0 - 2.0 %) 0.5 Absolute Granulocytes (1.4 - 6.5 /CUMM) 6.6 H Absolute Lymphocytes (1.2 - 3.4 /CUMM) 1.2 Absolute Monocytes (0.10 - 0.60 /CUMM) 0.7 H Absolute Eosinophils (0.0 - 0.7 /CUMM) 0.4 Absolute Basophils (0.0 - 0.2 /CUMM) 0 PUBS MCHC (33.0 - 37.0 G/DL) 32.0 L
[2017-03-09 13:33] LABS: ABSOLUTE BASOPHIL COUNT 0.1 /CUMM (0.0-0.2); ABSOLUTE EOSINOPHIL COUNT 0.5 /CUMM (0.0-0.7); ABSOLUTE GRANULOCYTE CT 6.3 /CUMM (1.4-6.5); ABSOLUTE LYMPH COUNT 1.2 /CUMM (1.2-3.4); ABSOLUTE MONOCYTE COUNT 0.7 /CUMM (0.10-0.60); BASOPHIL % 0.8 % (0.0-2.0); EOSINOPHIL % 5.3 % (0-5); GRANULOCYTE % 72.6 % (42.2-75.2); HEMATOCRIT 28.1 % (42-52); MEAN CORPUSCULAR HGB 27.7 PG (27.0-31.0); MEAN CORPUSCULAR HGB CONC 31.8 G/DL (33.0-37.0); MEAN CORPUSCULAR VOLUME 87.2 FL (80.0-94.0); MEAN PLATELET VOLUME 8.2 FL (7.4-10.4); PLATELET COUNT 162 /CUMM (130-400); RBC DISTRIBUTION WIDTH 20.2 % (11.5-14.5); RED BLOOD CELL CT 3.23 /CUMM (4.70-6.10); WHITE BLOOD CELL COUNT 8.7 /CUMM (4.8-10.8)
[2017-03-09 13:43] LABS: PT 19.6 SEC (9.4-12.5)
[2017-03-09 16:58] VITALS: BP 122/40
[2017-03-09 22:14] VITALS: BP 122/38
[2017-03-10 06:41] VITALS: BP 112/42
--- NOTE | 2017-03-10 07:13 | NUR ---
PT REPORTS FEELING LIGHTHEADED. DIASTOLIC 26, NOTIFIED MOD, PAWAN VERDIN MD. INSTRUCTED TO ESTABLISH IV ACCESS FOR GENTLE HYDRATION.
[2017-03-10 07:17] VITALS: BP 98/26
[2017-03-10 08:28] LABS: PT 18.8 SEC (9.4-12.5)
[2017-03-10 08:59] VITALS: BP 98/33
[2017-03-10 12:05] VITALS: BP 131/48
[2017-03-10 13:40] VITALS: BP 100/50
--- NOTE | 2017-03-10 14:51 | PN- Nephrology ---
Assessment/Plan Assessment: 1. ESRD 2. Status post bowel resection with colostomy 01/28/17 for ischemic bowel 3. Persistent, albeit slowly improving, edema left upper extremity status post creation of left brachiocephalic AVF 01/26/17 4. Hyperphosphatemia 5. COPD and multiple other comorbidities Suggestion: 1. Hemodialysis tomorrow with ultrafiltration to his target weight of 81 kg 2. Hold calcitriol and start sevelamer 800 mg by mouth 3 times a day with meals 3. Mobilize 4. I will talk to Dr. Jackson regarding status of his left upper arm access Subjective Subjective: Patient felt a bit dizzy this morning with transient low blood pressure which self corrected before he was given any fluids. His left arm is about the same although the pain may be slightly less. Serum phosphorus noted to be high. URR adequate (74%) as measured yesterday. Objective Vital Signs and I&Os Vital Signs Date Time Temp Pulse Resp B/P B/P Pulse O2 O2 Flow FiO2 Mean Ox Delivery Rate 03/10 1340 98.0 68 20 100/50 93 05/05 1205 62 131/48 05/05 0859 62 98/33 05/05 0717 98.2 61 20 98/26 95 Room Air 05/05 0641 98.4 60 20 112/42 95 Room Air 05/05 0119 95 Room Air 05/04 2214 98.0 68 20 122/38 94 05/04 1658 97.9 61 20 122/40 95 Room Air 05/04 1640 98 Room Air Intake & Output 05/ 1600 05/05 0400 05/04 1600 05/ 0400 / 1600 05/ 0400 Intake Total 674 416 1536 480 480 120 Output Total 250 3300 140 300 Balance -10 -2019 340 180 120 Intake, Oral 520 721 6143 480 480 120 Output, 3000 Dialysate Output, Stool 150 300 300 Output, Urine 100 140 Patient 180 lb 108 lb 185 lb 185 lb Weight Weight Standing Scale Standing Scale Standing Scale Standing Scale Measurement Method Physical Exam: General: Well-developed white male in NAD Skin: No rash or jaundice HEENT: Conjunctivae pink, sclerae anicteric, mucous membranes moist Neck: Without masses or thyromegaly, no supraclavicular or cervical adenopathy Chest: Clear anterolaterally Heart: Regular rate and rhythm without S3 or rub Abdomen: Obese, soft and nontender; colostomy Extremities: Without LE cyanosis or edema; +LUE edema Neuro: No focal findings, no asterixis or myoclonus Current Medications: Current Medications Sig/Johnna Start time Last Medication Dose Route Stop Time Status Admin Acetaminophen 650 MG .STK-MED ONE 03/10 0524 DC PO 03/10 0525 Acetaminophen 650 MG Q4P PRN 01/31 1100 AC 03/10 PO 0524 Albuterol Sulfate 2 PUF Q4P PRN 02/06 0800 AC 02/06 INH 1313 Albuterol Sulfate 3 ML EVERY 4 HRS/AWAKE 02/05 1600 AC 03/10 INH 1155 Allopurinol 100 MG DAILY 02/20 1818 AC 03/10 PO 0840 Calcitriol 0.25 MCG TuThSa PRN 03/04 0745 AC IV Colchicine 300 MCG QTHURS 03/09 1000 AC 03/09 PO 0802 Colchicine 300 MCG QSUN 03/05 0700 AC 03/05 PO 0639 Diclofenac Sodium 1 MAI 4 TIMES/DAY 02/05 1400 AC 03/09 TOP 0802 Epoetin Guzman 4,000 UNIT TuThSa PRN 03/04 0745 AC IV Furosemide 80 MG DAILY 02/08 1138 AC 03/10 PO 0840 Guaifenesin 600 MG Q12 02/16 1000 AC 03/10 PO 0840 Guaifenesin/ 10 ML Q6P PRN 02/22 2130 AC 03/09 Dextromethorphan PO 2218 Insulin Aspart 0 AT BEDTIME 02/01 2200 AC 02/16 SC 2138 Insulin Aspart 0 TIDAC 02/01 1200 AC 03/10 SC 1211 Omeprazole 40 MG DAILY AC 02/12 1200 AC 03/10 PO 0516 Patient Medication 1 ED .STK-MED ONE 03/10 1250 DC Teaching ED 03/10 1251 Sodium Chloride 250 ML BOLUS ONE 03/10 1215 DC IV 03/10 1314 Sodium Chloride 2 SPRAY Q4P PRN 01/31 0430 AC 02/05 CHULA 2133 Trazodone HCl 50 MG AT BEDTIME 01/30 2200 AC 03/09 PO 2217 Warfarin Sodium 7.5 MG COUMADIN 1700 ONE 03/10 1700 AC PO 03/10 1701 Warfarin Sodium 5 MG .STK-MED ONE 03/09 174 DC PO 03/09 174 Warfarin Sodium 1 MG .STK-MED ONE 03/09 1746 DC PO 03/09 174 Warfarin Sodium 6 MG COUMADIN 1700 ONE 03/09 1730 DC 03/09 PO 03/09 1731 1747 Results Pertinent Lab Results: Laboratory Tests 03/10 03/09 03/09 0620 1540 1217 Chemistry Sodium (137 - 145 mmol/L) 138 Potassium (3.5 - 5.1 mmol/L) 4.3 Chloride (98 - 107 mmol/L) 99 Carbon Dioxide (22 - 30 mmol/L) 22 Anion Gap (5 - 16) 17 H BUN (9 - 20 mg/dL) 9 35 H Creatinine (0.7 - 1.2 mg/dL) 5.2 *H Estimated GFR (>60 ml/min) 11 L BUN/Creatinine Ratio (7 - 25 %) 6.7 L Calcium (8.4 - 10.2 mg/dL) 8.4 Phosphorus (2.5 - 4.5 mg/dL) 6.4 H Magnesium (1.6 - 2.3 mg/dL) 1.8 Albumin (3.5 - 5.0 g/dL) 3.3 L Coagulation PT (9.4 - 12.5 SEC) 18.8 H INR (0.90 - 1.17) 1.80 H Hematology CBC w Diff NO MAN DIFF REQ WBC (4.8 - 10.8 /CUMM) 8.7 RBC (4.70 - 6.10 /CUMM) 3.23 L Hgb (14.0 - 18.0 G/DL) 8.9 L Hct (42 - 52 %) 28.1 L MCV (80.0 - 94.0 FL) 87.2 MCH (27.0 - 31.0 PG) 27.7 RDW (11.5 - 14.5 %) 20.2 H Plt Count (130 - 400 /CUMM) 162 MPV (7.4 - 10.4 FL) 8.2 Gran % (42.2 - 75.2 %) 72.6 Lymphocytes % (20.5 - 51.1 %) 13.8 L Monocytes % (1.7 - 9.3 %) 7.5 Eosinophils % (0 - 5 %) 5.3 H Basophils % (0.0 - 2.0 %) 0.8 Absolute Granulocytes (1.4 - 6.5 /CUMM) 6.3 Absolute Lymphocytes (1.2 - 3.4 /CUMM) 1.2 Absolute Monocytes (0.10 - 0.60 /CUMM) 0.7 H Absolute Eosinophils (0.0 - 0.7 /CUMM) 0.5 Absolute Basophils (0.0 - 0.2 /CUMM) 0.1 PUBS MCHC (33.0 - 37.0 G/DL) 31.8 L 05/04 05/03 1200 0635 Coagulation PT (9.4 - 12.5 SEC) 19.6 H 17.8 H INR (0.90 - 1.17) 1.88 H 1.70 H
--- NOTE | 2017-03-10 14:53 | RADIOLOGY REPORT ---
EXAMINATION: XR PORTABLE CHEST. CLINICAL INFORMATION: 72-year-old male with productive cough and bilateral rhonchi. COMPARISON: Chest done on 02/16/2017. TECHNIQUE: Portable frontal view of the chest was obtained. FINDINGS: Hyperinflated lung field is present bilaterally. Mild pulmonary venous hypertension is noted. No discrete focal airspace disease is noted. Possible minimal blunting of the left lateral CP angle is seen, new since prior study. The AICD device, the leads and right sided central line are unchanged. The cardiomediastinal silhouette is moderately enlarged, unchanged. IMPRESSION: Persistent stable mild enlargement of the cardiomediastinal silhouette and mild pulmonary venous hypertension. Possible small left-sided pleural effusion, new since prior study. No other significant change. No definite radiographic evidence of pneumonia.
--- NOTE | 2017-03-10 15:31 | PN- Att Addend ---
Attending Addendum Attending Brief Note 72M PMH COPD, ESRD on HD, paroxysmal atrial fibrillation on Coumadin, chronic diastolic CHF, T2DM, PVD, CAD, history of MGUS, neuropathy who was originally admitted with ischemic bowel which required resection and colostomy. Also with chronic left arm swelling since undergoing AV-fistula placement on 01/30/17. Currently patient is undergoing hemodialysis Monday per nephrology. He is awaiting for insurance paperwork to be completed so that [facility] can be placed in a [facility]. Patient feels ok today, but still weak, and with productive cough. Still has left hand soreness but swelling is improved. BP low with diastolic in 40's overnight and into the morning, but this is chronic and typical for patient, increased to 128/58 without intervention. Review of systems normal. AFVSS NAD NCAT Supple RRR Mild wheezes bilaterally Soft, NTND, ostomy clean No LE edema, LUE edematous, non-tender Pulses intact A&Ox3 no focal deficits Current Medications Sig/Johnna Start time Last Medication Dose Route Stop Time Status Admin Acetaminophen 650 MG .STK-MED ONE 03/10 0524 DC PO 03/10 0525 Acetaminophen 650 MG Q4P PRN 01/31 1100 AC 03/10 PO 0524 Albuterol Sulfate 2 PUF Q4P PRN 02/06 0800 AC 02/06 INH 1313 Albuterol Sulfate 3 ML EVERY 4 HRS/AWAKE 02/05 1600 AC 03/10 INH 1155 Allopurinol 100 MG DAILY 02/20 1818 AC 03/10 PO 0840 Calcitriol 0.25 MCG TuThSa PRN 03/04 0745 AC IV Colchicine 300 MCG QTHURS 03/09 1000 AC 03/09 PO 0802 Colchicine 300 MCG QSUN 03/05 0700 AC 03/05 PO 0639 Diclofenac Sodium 1 MAI 4 TIMES/DAY 02/05 1400 AC 03/09 TOP 0802 Epoetin Guzman 4,000 UNIT TuThSa PRN 03/04 0745 AC IV Furosemide 80 MG DAILY 02/08 1138 AC 03/10 PO 0840 Guaifenesin 600 MG Q12 02/16 1000 AC 03/10 PO 0840 Guaifenesin/ 10 ML Q6P PRN 02/22 2130 AC 03/09 Dextromethorphan PO 2218 Insulin Aspart 0 AT BEDTIME 02/01 2200 AC 02/16 SC 2138 Insulin Aspart 0 TIDAC 02/01 1200 AC 03/10 SC 1211 Omeprazole 40 MG DAILY AC 02/12 1200 AC 03/10 PO 0516 Patient Medication 1 ED .STK-MED ONE 03/10 1250 DC Teaching ED 03/10 1251 Sodium Chloride 250 ML BOLUS ONE 03/10 1215 DC IV 03/10 1314 Sodium Chloride 2 SPRAY Q4P PRN 01/31 0430 AC 02/05 CHULA 2133 Trazodone HCl 50 MG AT BEDTIME 01/30 2200 AC 03/09 PO 2217 Warfarin Sodium 7.5 MG COUMADIN 1700 ONE 03/10 1700 AC PO 03/10 1701 Warfarin Sodium 5 MG .STK-MED ONE 03/09 1746 DC PO 03/09 1747 Warfarin Sodium 1 MG .STK-MED ONE 03/09 1746 DC PO 03/09 1747 Warfarin Sodium 6 MG COUMADIN 1700 ONE 03/09 1730 DC 03/09 PO 03/09 1731 1747 Laboratory Tests 03/10 03/09 0620 1540 Chemistry BUN (9 - 20 mg/dL) 9 Coagulation PT (9.4 - 12.5 SEC) 18.8 H INR (0.90 - 1.17) 1.80 H Plan - Continue current management - Will obtain blood cultures and CXR, as patient has been persistently hypotensive and feels overall ill. Given his current condition, he may not mount a fever if he is infected. - Follow vascular recommendations for arm swelling - Will dose Coumadin - Follow nephrology recommendations - Follow up with social work and case management regarding placement to [facility]
[2017-03-10 22:52] VITALS: BP 108/40
[2017-03-11 06:54] VITALS: BP 122/44
--- NOTE | 2017-03-11 07:26 | NUR ---
PATIENT GOING DOWN TO DIALYSIS AT THIS TIME.
[2017-03-11 08:16] LABS: ABSOLUTE BASOPHIL COUNT 0 /CUMM (0.0-0.2); ABSOLUTE EOSINOPHIL COUNT 0.4 /CUMM (0.0-0.7); ABSOLUTE LYMPH COUNT 1.2 /CUMM (1.2-3.4); ABSOLUTE MONOCYTE COUNT 0.6 /CUMM (0.10-0.60); BASOPHIL % 0.6 % (0.0-2.0); EOSINOPHIL % 5.3 % (0-5); HEMATOCRIT 28.3 % (42-52); MEAN CORPUSCULAR HGB 27.8 PG (27.0-31.0); MEAN CORPUSCULAR HGB CONC 31.5 G/DL (33.0-37.0); MEAN CORPUSCULAR VOLUME 88.1 FL (80.0-94.0); MEAN PLATELET VOLUME 8.2 FL (7.4-10.4); PLATELET COUNT 154 /CUMM (130-400); RBC DISTRIBUTION WIDTH 20.1 % (11.5-14.5); RED BLOOD CELL CT 3.21 /CUMM (4.70-6.10); WHITE BLOOD CELL COUNT 7.2 /CUMM (4.8-10.8)
[2017-03-11 08:36] LABS: PT 18.7 SEC (9.4-12.5)
[2017-03-11 15:22] VITALS: BP 110/56
--- NOTE | 2017-03-11 15:47 | PN- Nephrology ---
Assessment/Plan Assessment: 1. End-stage renal disease/chronic kidney disease stage V. HD uneventful earlier. 2. Status post ischemic gut 3. CPOPD 4. DM Suggestion: 1. Hemodialysis was performed earlier today. Next dialysis will be planned for 2. Await final disposition. Subjective Subjective: patient seen. sitting up . Review of Systems: C/o being wobbly and occasionally dizzy Objective Vital Signs and I&Os Vital Signs Date Time Temp Pulse Resp B/P B/P Pulse O2 O2 Flow FiO2 Mean Ox Delivery Rate 03/11 1522 97.5 60 20 110/56 97 03/11 0909 97 Room Air 03/11 0654 97.9 66 24 122/44 93 Room Air 03/11 0207 95 Room Air 03/11 0000 93 Room Air 03/10 2252 98.7 64 20 108/40 93 Room Air 03/10 1605 95 Room Air Room Air 03/10 1600 Room Air Intake & Output 03/11 1600 03/11 0400 03/10 1600 03/10 0400 03/09 1600 03/09 0400 Intake Total 120 1010 060 742 1323 480 Output Total 50 420 405 5084 140 Balance 70 610 290 240 -2020 340 Intake, IV 10 Intake, Oral 120 1000 693 913 3934 480 Number 0 Bowel Movements Output, 3000 Dialysate Output, Stool 50 300 350 300 Output, Urine 100 100 140 Patient 185 lb 180 lb 108 lb 185 lb Weight Weight Standing Scale Standing Scale Standing Scale Standing Scale Measurement Method Physical Exam: General Appearance: well developed/nourished, obese in NAD Head: atraumatic, normocephalic Eyes: Bilateral: PERRL, EOMI. Neck: normal inspection, trachea mid line, Respiratory: normal breath sounds, chest non-tender Cardiovascular: regular rate/rhythm, edema Gastrointestinal: ostomy and right upper quadrant. Extremities: normal inspection, he has both lower extremity and left upper extremity edema, left upper arm aVF with good bruit, Neurologic/Psych: Awake, alert and cooperative Skin: intact, no rash no jaundice Results Pertinent Lab Results: Laboratory Tests 03/11 03/10 03/09 0736 0620 1540 Chemistry Sodium (137 - 145 mmol/L) 138 Potassium (3.5 - 5.1 mmol/L) 4.0 Chloride (98 - 107 mmol/L) 98 Carbon Dioxide (22 - 30 mmol/L) 24 Anion Gap (5 - 16) 16 BUN (9 - 20 mg/dL) 29 H 9 Creatinine (0.7 - 1.2 mg/dL) 4.8 H Estimated GFR (>60 ml/min) 12 L BUN/Creatinine Ratio (7 - 25 %) 6.0 L Calcium (8.4 - 10.2 mg/dL) 8.4 Coagulation PT (9.4 - 12.5 SEC) 18.7 H 18.8 H INR (0.90 - 1.17) 1.79 H 1.80 H Hematology CBC w Diff NO MAN DIFF REQ WBC (4.8 - 10.8 /CUMM) 7.2 RBC (4.70 - 6.10 /CUMM) 3.21 L Hgb (14.0 - 18.0 G/DL) 8.9 L Hct (42 - 52 %) 28.3 L MCV (80.0 - 94.0 FL) 88.1 MCH (27.0 - 31.0 PG) 27.8 RDW (11.5 - 14.5 %) 20.1 H Plt Count (130 - 400 /CUMM) 154 MPV (7.4 - 10.4 FL) 8.2 Gran % (42.2 - 75.2 %) 70.0 Lymphocytes % (20.5 - 51.1 %) 16.3 L Monocytes % (1.7 - 9.3 %) 7.8 Eosinophils % (0 - 5 %) 5.3 H Basophils % (0.0 - 2.0 %) 0.6 Absolute Granulocytes (1.4 - 6.5 /CUMM) 5.0 Absolute Lymphocytes (1.2 - 3.4 /CUMM) 1.2 Absolute Monocytes (0.10 - 0.60 /CUMM) 0.6 Absolute Eosinophils (0.0 - 0.7 /CUMM) 0.4 Absolute Basophils (0.0 - 0.2 /CUMM) 0 PUBS MCHC (33.0 - 37.0 G/DL) 31.5 L /04 05/04 1217 1200 Chemistry Sodium (137 - 145 mmol/L) 138 Potassium (3.5 - 5.1 mmol/L) 4.3 Chloride (98 - 107 mmol/L) 99 Carbon Dioxide (22 - 30 mmol/L) 22 Anion Gap (5 - 16) 17 H BUN (9 - 20 mg/dL) 35 H Creatinine (0.7 - 1.2 mg/dL) 5.2 *H Estimated GFR (>60 ml/min) 11 L BUN/Creatinine Ratio (7 - 25 %) 6.7 L Calcium (8.4 - 10.2 mg/dL) 8.4 Phosphorus (2.5 - 4.5 mg/dL) 6.4 H Magnesium (1.6 - 2.3 mg/dL) 1.8 Albumin (3.5 - 5.0 g/dL) 3.3 L Coagulation PT (9.4 - 12.5 SEC) 19.6 H INR (0.90 - 1.17) 1.88 H Hematology CBC w Diff NO MAN DIFF REQ WBC (4.8 - 10.8 /CUMM) 8.7 RBC (4.70 - 6.10 /CUMM) 3.23 L Hgb (14.0 - 18.0 G/DL) 8.9 L Hct (42 - 52 %) 28.1 L MCV (80.0 - 94.0 FL) 87.2 MCH (27.0 - 31.0 PG) 27.7 RDW (11.5 - 14.5 %) 20.2 H Plt Count (130 - 400 /CUMM) 162 MPV (7.4 - 10.4 FL) 8.2 Gran % (42.2 - 75.2 %) 72.6 Lymphocytes % (20.5 - 51.1 %) 13.8 L Monocytes % (1.7 - 9.3 %) 7.5 Eosinophils % (0 - 5 %) 5.3 H Basophils % (0.0 - 2.0 %) 0.8 Absolute Granulocytes (1.4 - 6.5 /CUMM) 6.3 Absolute Lymphocytes (1.2 - 3.4 /CUMM) 1.2 Absolute Monocytes (0.10 - 0.60 /CUMM) 0.7 H Absolute Eosinophils (0.0 - 0.7 /CUMM) 0.5 Absolute Basophils (0.0 - 0.2 /CUMM) 0.1 PUBS MCHC (33.0 - 37.0 G/DL) 31.8 L
--- NOTE | 2017-03-11 18:33 | PN- Att Addend ---
Attending Addendum Attending Brief Note 72M PMH COPD, ESRD on HD, paroxysmal atrial fibrillation on Coumadin, chronic diastolic CHF, T2DM, PVD, CAD, history of MGUS, neuropathy who was originally admitted with ischemic bowel which required resection and colostomy. Also with chronic left arm swelling since undergoing AV-fistula placement on 01/30/17. Currently patient is undergoing hemodialysis Monday per nephrology. He is awaiting for insurance paperwork to be completed so that he can be placed in a [facility]. Patient feels ok today, but still weak, and with productive cough. Still has left hand soreness but swelling is improved. BP low with diastolic in 40's overnight and into the morning, but this is chronic and typical for patient, increased to 128/58 without intervention. Review of systems normal. AFVSS NAD NCAT Supple RRR Mild wheezes bilaterally Soft, NTND, ostomy clean No LE edema, LUE edematous, non-tender Pulses intact A&Ox3 no focal deficits Current Medications Sig/Johnna Start time Last Medication Dose Route Stop Time Status Admin Acetaminophen 650 MG Q4P PRN 01/31 1100 AC 03/10 PO 0524 Albuterol Sulfate 2 PUF Q4P PRN 02/06 0800 AC 02/06 INH 1313 Albuterol Sulfate 3 ML EVERY 4 HRS/AWAKE 02/05 1600 AC 03/11 INH 1635 Allopurinol 100 MG DAILY 02/20 1818 AC 03/11 PO 1304 Calcitriol 0.25 MCG TuThSa PRN 03/04 0745 AC IV Colchicine 300 MCG QTHURS 03/09 1000 AC 03/09 PO 0802 Colchicine 300 MCG QSUN 03/05 0700 AC 03/05 PO 0639 Diclofenac Sodium 1 MAI 4 TIMES/DAY 02/05 1400 AC 03/09 TOP 0802 Epoetin Guzman 4,000 UNIT TuThSa PRN 03/04 0745 AC IV Furosemide 80 MG DAILY 02/08 1138 AC 03/11 PO 1303 Guaifenesin 600 MG Q12 02/16 1000 AC 03/11 PO 1304 Guaifenesin/ 10 ML Q6P PRN 02/22 2130 AC 03/10 Dextromethorphan PO 2218 Insulin Aspart 0 AT BEDTIME 02/01 2200 AC 02/16 SC 2138 Insulin Aspart 0 TIDAC 02/01 1200 AC 03/11 SC 1741 Omeprazole 40 MG DAILY AC 02/12 1200 AC 03/11 PO 0555 Sodium Chloride 2 SPRAY Q4P PRN 01/31 0430 AC 02/05 CHULA 2133 Trazodone HCl 50 MG AT BEDTIME 01/30 2200 AC 03/10 PO 2214 Laboratory Tests 03/11 0736 Chemistry Sodium (137 - 145 mmol/L) 138 Potassium (3.5 - 5.1 mmol/L) 4.0 Chloride (98 - 107 mmol/L) 98 Carbon Dioxide (22 - 30 mmol/L) 24 Anion Gap (5 - 16) 16 BUN (9 - 20 mg/dL) 29 H Creatinine (0.7 - 1.2 mg/dL) 4.8 H Estimated GFR (>60 ml/min) 12 L BUN/Creatinine Ratio (7 - 25 %) 6.0 L Calcium (8.4 - 10.2 mg/dL) 8.4 Coagulation PT (9.4 - 12.5 SEC) 18.7 H INR (0.90 - 1.17) 1.79 H Hematology CBC w Diff NO MAN DIFF REQ WBC (4.8 - 10.8 /CUMM) 7.2 RBC (4.70 - 6.10 /CUMM) 3.21 L Hgb (14.0 - 18.0 G/DL) 8.9 L Hct (42 - 52 %) 28.3 L MCV (80.0 - 94.0 FL) 88.1 MCH (27.0 - 31.0 PG) 27.8 RDW (11.5 - 14.5 %) 20.1 H Plt Count (130 - 400 /CUMM) 154 MPV (7.4 - 10.4 FL) 8.2 Gran % (42.2 - 75.2 %) 70.0 Lymphocytes % (20.5 - 51.1 %) 16.3 L Monocytes % (1.7 - 9.3 %) 7.8 Eosinophils % (0 - 5 %) 5.3 H Basophils % (0.0 - 2.0 %) 0.6 Absolute Granulocytes (1.4 - 6.5 /CUMM) 5.0 Absolute Lymphocytes (1.2 - 3.4 /CUMM) 1.2 Absolute Monocytes (0.10 - 0.60 /CUMM) 0.6 Absolute Eosinophils (0.0 - 0.7 /CUMM) 0.4 Absolute Basophils (0.0 - 0.2 /CUMM) 0 PUBS MCHC (33.0 - 37.0 G/DL) 31.5 L Plan - Continue current management - Will obtain blood cultures and CXR, as patient has been persistently hypotensive and feels overall ill. Given his current condition, he may not mount a fever if he is infected. - Follow vascular recommendations for arm swelling - Will dose Coumadin - Follow nephrology recommendations - Follow up with social work and case management regarding placement to [facility]
[2017-03-11 22:30] VITALS: BP 135/72
[2017-03-12 06:24] VITALS: BP 100/52
[2017-03-12 06:30] VITALS: BP 100/52
[2017-03-12 09:38] LABS: PT 16.2 SEC (9.4-12.5)
--- NOTE | 2017-03-12 13:37 | PN- Att Addend ---
Attending Addendum Attending Brief Note 72M PMH COPD, ESRD on HD, paroxysmal atrial fibrillation on Coumadin, chronic diastolic CHF, T2DM, PVD, CAD, history of MGUS, neuropathy who was originally admitted with ischemic bowel which required resection and colostomy. Also with chronic left arm swelling since undergoing AV-fistula placement on 01/30/17. Currently patient is undergoing hemodialysis Monday per nephrology. He is awaiting for insurance paperwork to be completed so that he can be placed in a intermediate. Patient feels ok today, but still weak, and with productive cough. Still has left hand soreness but swelling is improved. BP low with diastolic in 40's overnight and into the morning, but this is chronic and typical for patient, increased to 128/58 without intervention. Review of systems normal. AFVSS NAD NCAT Supple RRR Mild wheezes bilaterally Soft, NTND, ostomy clean No LE edema, LUE edematous, non-tender Pulses intact A&Ox3 no focal deficits Current Medications Sig/Johnna Start time Last Medication Dose Route Stop Time Status Admin Acetaminophen 325 MG .STK-MED ONE 03/11 2112 DC PO 03/11 211 Acetaminophen 650 MG Q4P PRN 01/31 1100 AC 03/11 PO 2141 Albuterol Sulfate 2 PUF Q4P PRN 02/06 0800 AC 02/06 INH 1313 Albuterol Sulfate 3 ML EVERY 4 HRS/AWAKE 02/05 1600 AC 03/12 INH 1150 Allopurinol 100 MG DAILY 02/20 1818 AC 03/12 PO 0800 Calcitriol 0.25 MCG TuThSa PRN 03/04 0745 AC IV Colchicine 300 MCG QTHURS 03/09 1000 AC 03/09 PO 0802 Colchicine 300 MCG QSUN 03/05 0700 AC 03/12 PO 0603 Diclofenac Sodium 1 MAI 4 TIMES/DAY 02/05 1400 AC 03/09 TOP 0802 Epoetin Guzman 4,000 UNIT TuThSa PRN 03/04 0745 AC IV Furosemide 80 MG DAILY 02/08 1138 AC 03/12 PO 0800 Guaifenesin 600 MG Q12 02/16 1000 AC 03/12 PO 0800 Guaifenesin/ 10 ML Q6P PRN 02/22 2130 AC 03/10 Dextromethorphan PO 2218 Insulin Aspart 0 AT BEDTIME 02/01 2200 AC 02/16 SC 2138 Insulin Aspart 0 TIDAC 02/01 1200 AC 03/12 SC 1227 Omeprazole 40 MG DAILY AC 02/12 1200 AC 03/12 PO 0603 Oxycodone/ 1 TAB ONCE ONE 03/12 0045 DC 03/12 Acetaminophen PO 03/12 0046 0050 Sodium Chloride 2 SPRAY Q4P PRN 01/31 0430 AC 02/05 CHULA 2133 Trazodone HCl 50 MG AT BEDTIME 01/30 2200 AC 03/11 PO 2138 Warfarin Sodium 7.5 MG COUMADIN 1700 ONE 03/12 1700 CAN PO 03/12 1701 Warfarin Sodium 8.5 MG COUMADIN 1700 ONE 03/12 1700 CAN PO 03/12 1701 Warfarin Sodium 8.5 MG ONCE ONE 03/11 1900 DC 03/11 PO 03/11 1901 2139 Laboratory Tests 03/12 0750 Coagulation PT (9.4 - 12.5 SEC) 16.2 H INR (0.90 - 1.17) 1.55 H Plan - Continue current management - Will obtain blood cultures and CXR, as patient has been persistently hypotensive and feels overall ill. Given his current condition, he may not mount a fever if he is infected. - Follow vascular recommendations for arm swelling - Will dose Coumadin - Follow nephrology recommendations - Follow up with social work and case management regarding placement to STR
[2017-03-12 14:59] VITALS: BP 132/74
[2017-03-12 22:36] VITALS: BP 114/60
[2017-03-13 06:58] VITALS: BP 108/62
[2017-03-13 09:07] LABS: PT 17.8 SEC (9.4-12.5)
[2017-03-13 14:09] VITALS: BP 118/58
--- NOTE | 2017-03-13 15:01 | NUR ---
Have been following patients progress and supporting case managements efforts for safe discharge planning. Patients friend, Dean Song was able to access [employer] information and application for T-19 ([facility]) was submitted to [facility]. Case discussed with shoe caser.
--- NOTE | 2017-03-13 15:43 | PN- Att Addend ---
Attending Addendum Attending Brief Note 72M PMH COPD, ESRD on HD, paroxysmal atrial fibrillation on Coumadin, chronic diastolic CHF, T2DM, PVD, CAD, history of MGUS, neuropathy who was originally admitted with ischemic bowel which required resection and colostomy. Also with chronic left arm swelling since undergoing AV-fistula placement on 01/30/17. Currently patient is undergoing hemodialysis Monday per nephrology. He is awaiting for insurance paperwork to be completed so that he can be placed in a group home. Review of systems normal. AFVSS NAD NCAT Supple RRR Mild wheezes bilaterally Soft, NTND, ostomy clean No LE edema, LUE edematous, non-tender Pulses intact A&Ox3 no focal deficits Current Medications Sig/Johnna Start time Last Medication Dose Route Stop Time Status Admin Acetaminophen 650 MG Q4P PRN 01/31 1100 AC 03/11 PO 2141 Albuterol Sulfate 2 PUF Q4P PRN 02/06 0800 AC 02/06 INH 1313 Albuterol Sulfate 3 ML EVERY 4 HRS/AWAKE 02/05 1600 AC 03/13 INH 1156 Allopurinol 100 MG DAILY 02/20 1818 AC 03/13 PO 1002 Calcitriol 0.25 MCG TuThSa PRN 03/04 0745 AC IV Colchicine 300 MCG QTHURS 03/09 1000 AC 03/09 PO 0802 Colchicine 300 MCG QSUN 03/05 0700 AC 03/12 PO 0603 Diclofenac Sodium 1 MAI 4 TIMES/DAY 02/05 1400 AC 03/09 TOP 0802 Epoetin Guzman 4,000 UNIT TuThSa PRN 03/04 0745 AC IV Furosemide 80 MG DAILY 02/08 1138 AC 03/13 PO 1002 Guaifenesin 600 MG Q12 02/16 1000 AC 03/13 PO 1002 Guaifenesin/ 10 ML Q6P PRN 02/22 2130 AC 03/10 Dextromethorphan PO 2218 Insulin Aspart 0 AT BEDTIME 02/01 2200 AC 02/16 SC 2138 Insulin Aspart 0 TIDAC 02/01 1200 AC 03/13 SC 1207 Omeprazole 40 MG DAILY AC 02/12 1200 AC 03/13 PO 0647 Sodium Chloride 2 SPRAY Q4P PRN 01/31 0430 AC 02/05 CHULA 2133 Trazodone HCl 50 MG AT BEDTIME 01/30 2200 AC 03/12 PO 2135 Warfarin Sodium 10 MG COUMADIN 1700 ONE 03/13 1700 AC PO 03/13 1701 Warfarin Sodium 10 MG COUMADIN 1700 ONE 03/12 1700 DC 03/12 PO 03/12 170 1753 Laboratory Tests 03/13 0750 Coagulation PT (9.4 - 12.5 SEC) 17.8 H INR (0.90 - 1.17) 1.70 H Plan - Continue current management - Will obtain blood cultures and CXR, as patient has been persistently hypotensive and feels overall ill. Given his current condition, he may not mount a fever if he is infected. - Follow vascular recommendations for arm swelling - Will dose Coumadin - Follow nephrology recommendations - Follow up with social work and case management regarding placement to STR
[2017-03-13 22:51] VITALS: BP 110/48
--- NOTE | 2017-03-14 07:11 | NUR ---
PATIENT GOING DOWN TO DIALYSIS AT THIS TIME.
[2017-03-14 07:40] VITALS: BP 112/50
[2017-03-14 08:42] LABS: ABSOLUTE BASOPHIL COUNT 0.1 /CUMM (0.0-0.2); ABSOLUTE EOSINOPHIL COUNT 0.3 /CUMM (0.0-0.7); ABSOLUTE GRANULOCYTE CT 6.3 /CUMM (1.4-6.5); ABSOLUTE LYMPH COUNT 1.3 /CUMM (1.2-3.4); ABSOLUTE MONOCYTE COUNT 0.6 /CUMM (0.10-0.60); BASOPHIL % 0.8 % (0.0-2.0); EOSINOPHIL % 3.5 % (0-5); GRANULOCYTE % 72.7 % (42.2-75.2); HEMATOCRIT 28.1 % (42-52); MEAN CORPUSCULAR HGB 27.5 PG (27.0-31.0); MEAN CORPUSCULAR HGB CONC 31.7 G/DL (33.0-37.0); MEAN CORPUSCULAR VOLUME 86.7 FL (80.0-94.0); MEAN PLATELET VOLUME 8.4 FL (7.4-10.4); PLATELET COUNT 149 /CUMM (130-400); RED BLOOD CELL CT 3.24 /CUMM (4.70-6.10); WHITE BLOOD CELL COUNT 8.6 /CUMM (4.8-10.8)
--- NOTE | 2017-03-14 10:54 | PN- Nephrology ---
Assessment/Plan Assessment: 1. ESRD 2. Status post bowel resection with colostomy 01/28/17 for ischemic bowel 3. Persistent edema left upper extremity status post creation of left brachiocephalic AVF 01/26/17 4. Hyperphosphatemia 5. COPD and multiple other comorbidities Suggestion: 1. Hemodialysis today with ultrafiltration to his target weight of 81 kg 2. Please hold calcitriol and start sevelamer 800 mg by mouth 3 times a day with meals 3. Mobilize 4. Await disposition 5. We will contact Dr. Jackson again to discuss possibility of investigating left upper arm AVF for possible outlet obstruction while patient is still here in the hospital waiting for rehabilitation placement Subjective Subjective: Patient continues to complain of pain and swelling of the left upper extremity. He is upset that this issue is not being addressed. Seen with hemodialysis today. Objective Vital Signs and I&Os Vital Signs Date Time Temp Pulse Resp B/P B/P Pulse O2 O2 Flow FiO2 Mean Ox Delivery Rate 03/14 0755 Room Air 03/14 0740 97.9 60 20 112/50 98 Room Air 03/14 0314 95 Room Air 03/13 2251 98.2 56 20 110/48 97 Room Air 03/13 1605 96 Room Air 03/13 1600 Nasal Cannula 03/13 1409 98.2 57 20 118/58 93 Room Air 03/13 1240 Nasal Cannula Intake & Output 03/14 1600 03/14 0400 03/13 1600 03/13 0400 03/12 1600 03/12 0400 Intake Total 240 240 720 450 240 450 Output Total 250 75 250 300 Balance 240 -10 645 450 -10 150 Intake, Oral 240 240 720 450 240 450 Output, Stool 200 75 250 300 Output, Urine 50 Patient 188 lb 184 lb Weight Weight Standing Scale Standing Scale Measurement Method Physical Exam: General: Well-developed white male in NAD Skin: No rash or jaundice HEENT: Conjunctivae pink, sclerae anicteric, mucous membranes moist Neck: Without masses or thyromegaly, no supraclavicular or cervical adenopathy Chest: Scattered rhonchi and wheezes bilaterally Heart: Regular rate and rhythm without S3 or rub Abdomen: Obese, soft and nontender; colostomy Extremities: Without LE cyanosis or edema; +LUE edema Neuro: No focal findings, no asterixis or myoclonus Current Medications: Chacorta is Current Medications Sig/Johnna Start time Last Medication Dose Route Stop Time Status Admin Acetaminophen 650 MG Q4P PRN 01/31 1100 AC 03/14 PO 0321 Albuterol Sulfate 2 PUF Q4P PRN 02/06 0800 AC 02/06 INH 1313 Albuterol Sulfate 3 ML EVERY 4 HRS/AWAKE 02/05 1600 AC 03/14 INH 0750 Allopurinol 100 MG DAILY 02/20 1818 AC 03/13 PO 1002 Calcitriol 0.25 MCG TuThSa PRN 03/04 0745 AC IV Colchicine 300 MCG QTHURS 03/09 1000 AC 03/09 PO 0802 Colchicine 300 MCG QSUN 03/05 0700 AC 03/12 PO 0603 Diclofenac Sodium 1 MAI 4 TIMES/DAY 02/05 1400 AC 03/13 TOP 2212 Epoetin Guzman 4,000 UNIT TuThSa PRN 03/04 0745 AC IV Furosemide 80 MG DAILY 02/08 1138 AC 03/13 PO 1002 Guaifenesin 600 MG Q12 02/16 1000 AC 03/13 PO 2212 Guaifenesin/ 10 ML Q6P PRN 02/22 2130 AC 03/10 Dextromethorphan PO 2218 Insulin Aspart 0 AT BEDTIME 02/01 2200 AC 02/16 SC 2138 Insulin Aspart 0 TIDAC 02/01 1200 AC 03/13 SC 1719 Omeprazole 40 MG DAILY AC 02/12 1200 AC 03/14 PO 0322 Sodium Chloride 2 SPRAY Q4P PRN 01/31 0430 AC 02/05 CHULA 2133 Trazodone HCl 50 MG AT BEDTIME 01/30 2200 AC 03/13 PO 2212 Warfarin Sodium 10 MG COUMADIN 1700 ONE 03/13 1700 DC 03/13 PO 03/13 1701 1719 Results Pertinent Lab Results: Laboratory Tests 03/14 03/13 05 0730 0750 0750 Chemistry Sodium (137 - 145 mmol/L) 136 L Potassium (3.5 - 5.1 mmol/L) 4.4 Chloride (98 - 107 mmol/L) 99 Carbon Dioxide (22 - 30 mmol/L) 23 Anion Gap (5 - 16) 14 BUN (9 - 20 mg/dL) 38 H Creatinine (0.7 - 1.2 mg/dL) 5.4 *H Estimated GFR (>60 ml/min) 10 L BUN/Creatinine Ratio (7 - 25 %) 7.0 Calcium (8.4 - 10.2 mg/dL) 8.4 Coagulation PT (9.4 - 12.5 SEC) 17.8 H 16.2 H INR (0.90 - 1.17) 1.70 H 1.55 H Hematology CBC w Diff NO MAN DIFF REQ WBC (4.8 - 10.8 /CUMM) 8.6 RBC (4.70 - 6.10 /CUMM) 3.24 L Hgb (14.0 - 18.0 G/DL) 8.9 L Hct (42 - 52 %) 28.1 L MCV (80.0 - 94.0 FL) 86.7 MCH (27.0 - 31.0 PG) 27.5 RDW (11.5 - 14.5 %) 20.0 H Plt Count (130 - 400 /CUMM) 149 MPV (7.4 - 10.4 FL) 8.4 Gran % (42.2 - 75.2 %) 72.7 Lymphocytes % (20.5 - 51.1 %) 15.5 L Monocytes % (1.7 - 9.3 %) 7.5 Eosinophils % (0 - 5 %) 3.5 Basophils % (0.0 - 2.0 %) 0.8 Absolute Granulocytes (1.4 - 6.5 /CUMM) 6.3 Absolute Lymphocytes (1.2 - 3.4 /CUMM) 1.3 Absolute Monocytes (0.10 - 0.60 /CUMM) 0.6 Absolute Eosinophils (0.0 - 0.7 /CUMM) 0.3 Absolute Basophils (0.0 - 0.2 /CUMM) 0.1 PUBS MCHC (33.0 - 37.0 G/DL) 31.7 L Serology Hepatitis A IgM Ab (NONREACTIVE) Pending Hep Bs Antigen (NONREACTIVE) NONREACTIVE Hep B Core IgM Ab Conf (NONREACTIVE) Pending Hepatitis C Antibody (NONREACTIVE) Pending
[2017-03-14 11:57] VITALS: BP 100/58
[2017-03-14 14:17] VITALS: BP 116/60
--- NOTE | 2017-03-14 15:40 | PN- Att Addend ---
Attending Addendum Attending Brief Note 72M PMH COPD, ESRD on HD, paroxysmal atrial fibrillation on Coumadin, chronic diastolic CHF, T2DM, PVD, CAD, history of MGUS, neuropathy who was originally admitted with ischemic bowel which required resection and colostomy. Also with chronic left arm swelling since undergoing AV-fistula placement on 01/30/17. Currently patient is undergoing hemodialysis Monday per nephrology. He is awaiting for insurance paperwork to be completed so that he can be placed in a [facility]. Review of systems normal. AFVSS NAD NCAT Supple RRR Mild wheezes bilaterally Soft, NTND, ostomy clean No LE edema, LUE edematous, non-tender Pulses intact A&Ox3 no focal deficits Current Medications Sig/Johnna Start time Last Medication Dose Route Stop Time Status Admin Acetaminophen 650 MG .STK-MED ONE 03/14 0320 DC PO 03/14 0321 Acetaminophen 650 MG Q4P PRN 01/31 1100 AC 03/14 PO 1332 Albuterol Sulfate 2 PUF Q4P PRN 02/06 0800 AC 02/06 INH 1313 Albuterol Sulfate 3 ML EVERY 4 HRS/AWAKE 02/05 1600 AC 03/14 INH 1203 Allopurinol 100 MG DAILY 02/20 1818 AC 03/14 PO 1318 Calcitriol 0.25 MCG TuThSa PRN 03/04 0745 AC IV Colchicine 300 MCG QTHURS 03/09 1000 AC 03/09 PO 0802 Colchicine 300 MCG QSUN 03/05 0700 AC 03/12 PO 0603 Diclofenac Sodium 1 MAI 4 TIMES/DAY 02/05 1400 AC 03/13 TOP 2212 Epoetin Guzman 4,000 UNIT TuThSa PRN 03/04 0745 AC IV Furosemide 80 MG DAILY 02/08 1138 AC 03/14 PO 1318 Guaifenesin 600 MG Q12 02/16 1000 AC 03/14 PO 1318 Guaifenesin/ 10 ML Q6P PRN 02/22 2130 AC 03/10 Dextromethorphan PO 2218 Insulin Aspart 0 AT BEDTIME 02/01 2200 AC 02/16 SC 2138 Insulin Aspart 0 TIDAC 02/01 1200 AC 03/14 SC 1300 Omeprazole 40 MG DAILY AC 02/12 1200 AC 03/14 PO 0322 Sodium Chloride 2 SPRAY Q4P PRN 01/31 0430 AC 04/02 CHULA 2133 Trazodone HCl 50 MG AT BEDTIME 01/30 220 AC 03/13 PO 221 Warfarin Sodium 10 MG COUMADIN 1700 ONE 03/13 1700 DC 03/13 PO 03/13 1701 1719 Laboratory Tests 03/14 07 Chemistry Sodium (137 - 145 mmol/L) 136 L Potassium (3.5 - 5.1 mmol/L) 4.4 Chloride (98 - 107 mmol/L) 99 Carbon Dioxide (22 - 30 mmol/L) 23 Anion Gap (5 - 16) 14 BUN (9 - 20 mg/dL) 38 H Creatinine (0.7 - 1.2 mg/dL) 5.4 *H Estimated GFR (>60 ml/min) 10 L BUN/Creatinine Ratio (7 - 25 %) 7.0 Calcium (8.4 - 10.2 mg/dL) 8.4 Hematology CBC w Diff NO MAN DIFF REQ WBC (4.8 - 10.8 /CUMM) 8.6 RBC (4.70 - 6.10 /CUMM) 3.24 L Hgb (14.0 - 18.0 G/DL) 8.9 L Hct (42 - 52 %) 28.1 L MCV (80.0 - 94.0 FL) 86.7 MCH (27.0 - 31.0 PG) 27.5 RDW (11.5 - 14.5 %) 20.0 H Plt Count (130 - 400 /CUMM) 149 MPV (7.4 - 10.4 FL) 8.4 Gran % (42.2 - 75.2 %) 72.7 Lymphocytes % (20.5 - 51.1 %) 15.5 L Monocytes % (1.7 - 9.3 %) 7.5 Eosinophils % (0 - 5 %) 3.5 Basophils % (0.0 - 2.0 %) 0.8 Absolute Granulocytes (1.4 - 6.5 /CUMM) 6.3 Absolute Lymphocytes (1.2 - 3.4 /CUMM) 1.3 Absolute Monocytes (0.10 - 0.60 /CUMM) 0.6 Absolute Eosinophils (0.0 - 0.7 /CUMM) 0.3 Absolute Basophils (0.0 - 0.2 /CUMM) 0.1 PUBS MCHC (33.0 - 37.0 G/DL) 31.7 L Serology Hepatitis A IgM Ab (NONREACTIVE) NONREACTIVE Hep Bs Antigen (NONREACTIVE) NONREACTIVE Hep B Core IgM Ab Conf (NONREACTIVE) NONREACTIVE Hepatitis C Antibody (NONREACTIVE) NONREACTIVE Plan - Continue current management - Will obtain blood cultures and CXR, as patient has been persistently hypotensive and feels overall ill. Given his current condition, he may not mount a fever if he is infected. - Follow vascular recommendations for arm swelling - Will dose Coumadin - Follow nephrology recommendations - Follow up with social work and case management regarding placement to STR
--- NOTE | 2017-03-14 21:46 | PN- Vascular Surgery ---
Subjective Subjective: Arm swelling Objective Vital Signs and I&Os Vital Signs Date Time Temp Pulse Resp B/P B/P Pulse O2 O2 Flow FiO2 Mean Ox Delivery Rate 03/14 1628 96 Room Air Room Air 03/14 1417 98.2 68 20 116/60 98 03/14 1157 98.1 68 20 100/58 93 Room Air 03/14 0755 Room Air 03/14 0740 97.9 60 20 112/50 98 Room Air 03/14 0314 95 Room Air 03/13 2251 98.2 56 20 110/48 97 Room Air Intake & Output 03/14 1600 03/14 0800 03/14 0000 03/13 1600 03/13 0800 03/13 0000 Intake Total 240 240 480 240 450 Output Total 3000 250 75 Balance -3000 240 -10 480 165 450 Intake, Oral 240 240 480 240 450 Number 1 Bowel Movements Output, 3000 Dialysate Output, Stool 200 75 Output, Urine 50 Patient 82.242 kg 85.417 kg Weight Weight Standing Scale Measurement Method Assessment/Plan Assessment/Plan PLAN TO PERFORM FISTULAGRAM 03/15/17, PLEASE KEEP NPO Core Measures/Miscellaneous Venous Thromboembolism VTE Risk Factors: Age > 40, Surgery VTE Contraindications: No Contraindications VTE Diagnosis: No Beta Amanda Is Beta Amanda a Home Med? No Antibiotics Is Patient on Antibiotics? Yes If Yes: prophylaxis
[2017-03-15 01:54] VITALS: BP 118/64
[2017-03-15 06:58] VITALS: BP 104/46
[2017-03-15 08:32] LABS: PT 27.1 SEC (9.4-12.5)
--- NOTE | 2017-03-15 11:06 | PN- Att Addend ---
Attending Addendum Attending Brief Note 72M PMH COPD, ESRD on HD, paroxysmal atrial fibrillation on Coumadin, chronic diastolic CHF, T2DM, PVD, CAD, history of MGUS, neuropathy who was originally admitted with ischemic bowel which required resection and colostomy. Also with chronic left arm swelling since undergoing AV-fistula placement on 01/30/17. Currently patient is undergoing hemodialysis Monday per nephrology. He is awaiting for insurance paperwork to be completed so that he can be placed in a residential. Review of systems normal. AFVSS NAD NCAT Supple RRR Mild wheezes bilaterally Soft, NTND, ostomy clean No LE edema, LUE edematous, non-tender Pulses intact A&Ox3 no focal deficits Current Medications Sig/Johnna Start time Last Medication Dose Route Stop Time Status Admin Acetaminophen 650 MG .STK-MED ONE 03/14 2104 DC PO 03/14 210 Acetaminophen 650 MG .STK-MED ONE 03/14 1328 DC PO 03/14 1329 Acetaminophen 650 MG Q4P PRN 01/31 1100 AC 03/14 PO 2104 Albuterol Sulfate 2 PUF Q4P PRN 02/06 0800 AC 02/06 INH 1313 Albuterol Sulfate 3 ML EVERY 4 HRS/AWAKE 02/05 1600 AC 03/15 INH 0750 Allopurinol 100 MG DAILY 02/20 1818 AC 03/15 PO 0814 Calcitriol 0.25 MCG TuThSa PRN 03/04 0745 AC IV Colchicine 300 MCG QTHURS 03/09 1000 AC 03/09 PO 0802 Colchicine 300 MCG QSUN 03/05 0700 AC 03/12 PO 0603 Diclofenac Sodium 1 MAI 4 TIMES/DAY 02/05 1400 AC 03/13 TOP 2212 Epoetin Guzman 4,000 UNIT TuThSa PRN 03/04 0745 AC IV Furosemide 80 MG DAILY 02/08 1138 AC 03/15 PO 0814 Guaifenesin 600 MG Q12 02/16 1000 AC 03/15 PO 0814 Guaifenesin/ 10 ML Q6P PRN 02/22 2130 AC 03/10 Dextromethorphan PO 2218 Insulin Aspart 0 AT BEDTIME 02/01 2200 DC 02/16 SC 03/15 0000 2138 Insulin Aspart 0 TIDAC 02/01 1200 DC 03/14 SC 03/15 0000 1702 Insulin Human Regular 4 UNITS .STK-MED ONE 03/15 0002 DC IV 03/15 0003 Insulin Human Regular 0 Q6 03/14 2359 AC 03/15 SC 0612 Omeprazole 40 MG DAILY AC 02/12 1200 AC 03/15 PO 0612 Oxycodone/ 1 TAB Q6P PRN 03/14 1630 AC 03/14 Acetaminophen PO 2234 Sodium Chloride 2 SPRAY Q4P PRN 01/31 0430 AC 02/05 CHULA 2133 Trazodone HCl 50 MG AT BEDTIME 01/30 2200 AC 03/14 PO 2225 Warfarin Sodium 7.5 MG COUMADIN 1700 ONE 03/14 1700 DC 03/14 PO 03/14 1701 1702 Laboratory Tests 03/15 0645 Coagulation PT (9.4 - 12.5 SEC) 27.1 H INR (0.90 - 1.17) 2.61 H Plan - Continue current management - Follow vascular recommendations for arm swelling - Patient will go for fistulogram today - Will dose Coumadin - Follow nephrology recommendations - Follow up with social work and case management regarding placement to STR
[2017-03-15 14:25] VITALS: BP 100/60
[2017-03-15 22:18] VITALS: BP 118/60
--- NOTE | 2017-03-15 22:56 | NUR ---
BS 205. NO HS COVERAGE ORDERED. DR BISWAS MADE AWARE. NO NEW ORDERS OF YET. ACCORDING TO SS ORDERED THROUGHOUT ADMMISSSION THUS FAR, NO COVERAGE NEEDED.
[2017-03-16 06:26] VITALS: BP 104/60
[2017-03-16 09:03] LABS: ABSOLUTE BASOPHIL COUNT 0.1 /CUMM (0.0-0.2); ABSOLUTE EOSINOPHIL COUNT 0.2 /CUMM (0.0-0.7); ABSOLUTE GRANULOCYTE CT 7.4 /CUMM (1.4-6.5); ABSOLUTE LYMPH COUNT 1.2 /CUMM (1.2-3.4); ABSOLUTE MONOCYTE COUNT 0.8 /CUMM (0.10-0.60); BASOPHIL % 0.7 % (0.0-2.0); EOSINOPHIL % 2.3 % (0-5); GRANULOCYTE % 76.4 % (42.2-75.2); HEMATOCRIT 29.1 % (42-52); MEAN CORPUSCULAR HGB 27.4 PG (27.0-31.0); MEAN CORPUSCULAR HGB CONC 31.6 G/DL (33.0-37.0); MEAN CORPUSCULAR VOLUME 86.8 FL (80.0-94.0); MEAN PLATELET VOLUME 8.4 FL (7.4-10.4); PLATELET COUNT 147 /CUMM (130-400); RBC DISTRIBUTION WIDTH 19.5 % (11.5-14.5); RED BLOOD CELL CT 3.35 /CUMM (4.70-6.10); WHITE BLOOD CELL COUNT 9.7 /CUMM (4.8-10.8)
--- NOTE | 2017-03-16 09:11 | NUR ---
0730 - PT GOING DOWN TO DIALYSIS AT THIS TIME. VSS.
--- NOTE | 2017-03-16 10:32 | PN- Nephrology ---
Assessment/Plan Assessment: 1. ESRD 2. Status post bowel resection with colostomy 01/28/17 for ischemic bowel 3. Persistent edema left upper extremity status post creation of left brachiocephalic AVF 01/26/17 4. Hyperphosphatemia - improving 5. COPD and multiple other comorbidities Suggestion: 1. Hemodialysis today with ultrafiltration to his target weight of 81 kg 2. Will need fistulogram per Dr. Jackson who will proceed to schedule it 3. Next hemodialysis for Sunday 03/18 4. Mobilize 5. Await disposition Subjective Subjective: No new issues. Patient continues to have problems with his left arm and hand. Dr. Jackson following. Seen with hemodialysis today which is still in progress. Objective Vital Signs and I&Os Vital Signs Date Time Temp Pulse Resp B/P B/P Pulse O2 O2 Flow FiO2 Mean Ox Delivery Rate 03/16 0824 Room Air 03/16 0626 98.6 63 20 104/60 90 Room Air 03/16 0103 95 Room Air 03/16 0000 Room Air 03/15 2218 98.3 72 20 118/60 95 Room Air 03/15 1612 95 Room Air Room Air 03/15 1425 97.7 66 20 100/60 93 Intake & Output 03/16 1600 03/16 0400 03/15 1600 03/15 0400 03/14 1600 03/14 0400 Intake Total 240 450 200 240 240 Output Total 150 100 76 100 3000 250 Balance 90 350 -76 100 -2760 -10 Intake, Oral 240 450 200 240 240 Number 1 Bowel Movements Output, 3000 Dialysate Output, Stool 100 100 75 100 200 Output, Urine 50 1 50 Patient 184 lb 183 lb 181 lb Weight Weight Standing Scale Measurement Method Physical Exam: General: Well-developed white male in NAD Skin: No rash or jaundice HEENT: Conjunctivae pink, sclerae anicteric, mucous membranes moist Neck: Without masses or thyromegaly, no supraclavicular or cervical adenopathy Chest: Scattered rhonchi and wheezes bilaterally Heart: Regular rate and rhythm without S3 or rub Abdomen: Obese, soft and nontender; colostomy Extremities: Without LE cyanosis or edema; +LUE edema Neuro: No focal findings, no asterixis or myoclonus Current Medications: Current Medications Sig/Johnna Start time Last Medication Dose Route Stop Time Status Admin Acetaminophen 650 MG Q4P PRN 01/31 1100 AC 03/16 PO 0620 Albuterol Sulfate 2 PUF Q4P PRN 02/06 0800 AC 02/06 INH 1313 Albuterol Sulfate 3 ML EVERY 4 HRS/AWAKE 02/05 1600 AC 03/16 INH 0810 Allopurinol 100 MG DAILY 02/20 1818 AC 03/15 PO 0814 Calcitriol 0.25 MCG TuThSa PRN 03/04 0745 AC IV Colchicine 300 MCG QTHURS 03/09 1000 AC 03/09 PO 0802 Colchicine 300 MCG QSUN 03/05 0700 AC 03/12 PO 0603 Diclofenac Sodium 1 MAI 4 TIMES/DAY 02/05 1400 AC 03/13 TOP 2212 Epoetin Guzman 4,000 UNIT TuThSa PRN 03/04 0745 AC IV Fentanyl Citrate 200 MCG .STK-MED ONE 03/15 1102 DC IM 03/15 1103 Furosemide 80 MG DAILY 02/08 1138 AC 03/15 PO 0814 Guaifenesin 600 MG Q12 02/16 1000 AC 03/15 PO 2239 Guaifenesin/ 10 ML Q6P PRN 02/22 2130 AC 03/10 Dextromethorphan PO 2218 Insulin Aspart 0 TIDAC/HS 03/16 0800 AC SC Insulin Aspart 0 TIDAC 03/15 1700 DC 03/15 SC 1757 Insulin Human Regular 0 Q6 03/14 2359 DC 03/15 SC 0612 Omeprazole 40 MG DAILY AC 02/12 1200 AC 03/16 PO 0620 Oxycodone/ 1 TAB Q6P PRN 03/14 1630 AC 03/15 Acetaminophen PO 2241 Sodium Chloride 2 SPRAY Q4P PRN 01/31 0430 AC 02/05 CHULA 2133 Tramadol HCl 50 MG Q6P PRN 03/16 0030 AC 03/16 PO 0033 Trazodone HCl 50 MG AT BEDTIME 01/30 2200 AC 03/15 PO 2239 Warfarin Sodium 6 MG COUMADIN 1700 ONE 03/15 1700 DC 03/15 PO 03/15 1701 1649 Results Pertinent Lab Results: Laboratory Tests 03/16 03/15 0745 0645 Chemistry Sodium (137 - 145 mmol/L) 138 Potassium (3.5 - 5.1 mmol/L) 4.5 Chloride (98 - 107 mmol/L) 98 Carbon Dioxide (22 - 30 mmol/L) 24 Anion Gap (5 - 16) 15 BUN (9 - 20 mg/dL) 31 H Creatinine (0.7 - 1.2 mg/dL) 5.4 *H Estimated GFR (>60 ml/min) 10 L BUN/Creatinine Ratio (7 - 25 %) 5.7 L Calcium (8.4 - 10.2 mg/dL) 8.6 Phosphorus (2.5 - 4.5 mg/dL) 5.8 H Magnesium (1.6 - 2.3 mg/dL) 1.8 Albumin (3.5 - 5.0 g/dL) 3.3 L Coagulation PT (9.4 - 12.5 SEC) 27.1 H INR (0.90 - 1.17) 2.61 H Hematology CBC w Diff NO MAN DIFF REQ WBC (4.8 - 10.8 /CUMM) 9.7 RBC (4.70 - 6.10 /CUMM) 3.35 L Hgb (14.0 - 18.0 G/DL) 9.2 L Hct (42 - 52 %) 29.1 L MCV (80.0 - 94.0 FL) 86.8 MCH (27.0 - 31.0 PG) 27.4 RDW (11.5 - 14.5 %) 19.5 H Plt Count (130 - 400 /CUMM) 147 MPV (7.4 - 10.4 FL) 8.4 Gran % (42.2 - 75.2 %) 76.4 H Lymphocytes % (20.5 - 51.1 %) 12.1 L Monocytes % (1.7 - 9.3 %) 8.5 Eosinophils % (0 - 5 %) 2.3 Basophils % (0.0 - 2.0 %) 0.7 Absolute Granulocytes (1.4 - 6.5 /CUMM) 7.4 H Absolute Lymphocytes (1.2 - 3.4 /CUMM) 1.2 Absolute Monocytes (0.10 - 0.60 /CUMM) 0.8 H Absolute Eosinophils (0.0 - 0.7 /CUMM) 0.2 Absolute Basophils (0.0 - 0.2 /CUMM) 0.1 PUBS MCHC (33.0 - 37.0 G/DL) 31.6 L /09 0730 Chemistry Sodium (137 - 145 mmol/L) 136 L Potassium (3.5 - 5.1 mmol/L) 4.4 Chloride (98 - 107 mmol/L) 99 Carbon Dioxide (22 - 30 mmol/L) 23 Anion Gap (5 - 16) 14 BUN (9 - 20 mg/dL) 38 H Creatinine (0.7 - 1.2 mg/dL) 5.4 *H Estimated GFR (>60 ml/min) 10 L BUN/Creatinine Ratio (7 - 25 %) 7.0 Calcium (8.4 - 10.2 mg/dL) 8.4 Hematology CBC w Diff NO MAN DIFF REQ WBC (4.8 - 10.8 /CUMM) 8.6 RBC (4.70 - 6.10 /CUMM) 3.24 L Hgb (14.0 - 18.0 G/DL) 8.9 L Hct (42 - 52 %) 28.1 L MCV (80.0 - 94.0 FL) 86.7 MCH (27.0 - 31.0 PG) 27.5 RDW (11.5 - 14.5 %) 20.0 H Plt Count (130 - 400 /CUMM) 149 MPV (7.4 - 10.4 FL) 8.4 Gran % (42.2 - 75.2 %) 72.7 Lymphocytes % (20.5 - 51.1 %) 15.5 L Monocytes % (1.7 - 9.3 %) 7.5 Eosinophils % (0 - 5 %) 3.5 Basophils % (0.0 - 2.0 %) 0.8 Absolute Granulocytes (1.4 - 6.5 /CUMM) 6.3 Absolute Lymphocytes (1.2 - 3.4 /CUMM) 1.3 Absolute Monocytes (0.10 - 0.60 /CUMM) 0.6 Absolute Eosinophils (0.0 - 0.7 /CUMM) 0.3 Absolute Basophils (0.0 - 0.2 /CUMM) 0.1 PUBS MCHC (33.0 - 37.0 G/DL) 31.7 L Serology Hepatitis A IgM Ab (NONREACTIVE) NONREACTIVE Hep Bs Antigen (NONREACTIVE) NONREACTIVE Hep B Core IgM Ab Conf (NONREACTIVE) NONREACTIVE Hepatitis C Antibody (NONREACTIVE) NONREACTIVE
--- NOTE | 2017-03-16 10:36 | PN- Att Addend ---
Attending Addendum Attending Brief Note 72M PMH COPD, ESRD on HD, paroxysmal atrial fibrillation on Coumadin, chronic diastolic CHF, T2DM, PVD, CAD, history of MGUS, neuropathy who was originally admitted with ischemic bowel which required resection and colostomy. Also with chronic left arm swelling since undergoing AV-fistula placement on 01/30/17. Currently patient is undergoing hemodialysis Monday per nephrology. He is awaiting for insurance paperwork to be completed so that [facility]. Fistulogram for 03/15 was canceled prior to procedure. Will follow vascular recommendations for further evaluation. Review of systems normal. AFVSS NAD NCAT Supple RRR Mild wheezes bilaterally Soft, NTND, ostomy clean No LE edema, LUE edematous, non-tender Pulses intact A&Ox3 no focal deficits Current Medications Sig/Johnna Start time Last Medication Dose Route Stop Time Status Admin Acetaminophen 650 MG Q4P PRN 01/31 1100 AC 03/16 PO 0620 Albuterol Sulfate 2 PUF Q4P PRN 02/06 0800 AC 02/06 INH 1313 Albuterol Sulfate 3 ML EVERY 4 HRS/AWAKE 02/05 1600 AC 03/16 INH 0810 Allopurinol 100 MG DAILY 02/20 1818 AC 03/15 PO 0814 Calcitriol 0.25 MCG TuThSa PRN 03/04 0745 AC IV Colchicine 300 MCG QTHURS 03/09 1000 AC 03/09 PO 0802 Colchicine 300 MCG QSUN 03/05 0700 AC 03/12 PO 0603 Diclofenac Sodium 1 MAI 4 TIMES/DAY 02/05 1400 AC 03/13 TOP 2212 Epoetin Guzman 4,000 UNIT TuThSa PRN 03/04 0745 AC IV Fentanyl Citrate 200 MCG .STK-MED ONE 03/15 1102 DC IM 03/15 1103 Furosemide 80 MG DAILY 02/08 1138 AC 03/15 PO 0814 Guaifenesin 600 MG Q12 02/16 1000 AC 03/15 PO 2239 Guaifenesin/ 10 ML Q6P PRN 02/22 2130 AC 03/10 Dextromethorphan PO 2218 Insulin Aspart 0 TIDAC/HS 03/16 0800 AC SC Insulin Aspart 0 TIDAC 03/15 1700 DC 03/15 SC 1757 Insulin Human Regular 0 Q6 03/14 2359 DC 03/15 SC 0612 Omeprazole 40 MG DAILY AC 02/12 1200 AC 03/16 PO 0620 Oxycodone/ 1 TAB Q6P PRN 03/14 1630 AC 03/15 Acetaminophen PO 2241 Sodium Chloride 2 SPRAY Q4P PRN 01/31 0430 AC 02/05 CHULA 2133 Tramadol HCl 50 MG Q6P PRN 03/16 0030 AC 03/16 PO 0033 Trazodone HCl 50 MG AT BEDTIME 01/30 220 AC 03/15 PO 2239 Warfarin Sodium 6 MG COUMADIN 1700 ONE 03/15 1700 DC 03/15 PO 03/15 170 1649 Laboratory Tests 03/16 0745 Chemistry Sodium (137 - 145 mmol/L) 138 Potassium (3.5 - 5.1 mmol/L) 4.5 Chloride (98 - 107 mmol/L) 98 Carbon Dioxide (22 - 30 mmol/L) 24 Anion Gap (5 - 16) 15 BUN (9 - 20 mg/dL) 31 H Creatinine (0.7 - 1.2 mg/dL) 5.4 *H Estimated GFR (>60 ml/min) 10 L BUN/Creatinine Ratio (7 - 25 %) 5.7 L Calcium (8.4 - 10.2 mg/dL) 8.6 Phosphorus (2.5 - 4.5 mg/dL) 5.8 H Magnesium (1.6 - 2.3 mg/dL) 1.8 Albumin (3.5 - 5.0 g/dL) 3.3 L Hematology CBC w Diff NO MAN DIFF REQ WBC (4.8 - 10.8 /CUMM) 9.7 RBC (4.70 - 6.10 /CUMM) 3.35 L Hgb (14.0 - 18.0 G/DL) 9.2 L Hct (42 - 52 %) 29.1 L MCV (80.0 - 94.0 FL) 86.8 MCH (27.0 - 31.0 PG) 27.4 RDW (11.5 - 14.5 %) 19.5 H Plt Count (130 - 400 /CUMM) 147 MPV (7.4 - 10.4 FL) 8.4 Gran % (42.2 - 75.2 %) 76.4 H Lymphocytes % (20.5 - 51.1 %) 12.1 L Monocytes % (1.7 - 9.3 %) 8.5 Eosinophils % (0 - 5 %) 2.3 Basophils % (0.0 - 2.0 %) 0.7 Absolute Granulocytes (1.4 - 6.5 /CUMM) 7.4 H Absolute Lymphocytes (1.2 - 3.4 /CUMM) 1.2 Absolute Monocytes (0.10 - 0.60 /CUMM) 0.8 H Absolute Eosinophils (0.0 - 0.7 /CUMM) 0.2 Absolute Basophils (0.0 - 0.2 /CUMM) 0.1 PUBS MCHC (33.0 - 37.0 G/DL) 31.6 L Plan - Continue current management - Follow vascular recommendations for arm swelling - Will dose Coumadin - Follow nephrology recommendations - Follow up with social work and case management regarding placement to [facility]
[2017-03-16 12:06] VITALS: BP 100/60
[2017-03-16 13:46] VITALS: BP 110/62
[2017-03-16 22:37] VITALS: BP 108/50
[2017-03-17 06:30] VITALS: BP 112/58
--- NOTE | 2017-03-17 10:51 | PN- Att Addend ---
Attending Addendum Attending Brief Note 72M PMH COPD, ESRD on HD, paroxysmal atrial fibrillation on Coumadin, chronic diastolic CHF, T2DM, PVD, CAD, history of MGUS, neuropathy who was originally admitted with ischemic bowel which required resection and colostomy. Also with chronic left arm swelling since undergoing AV-fistula placement on 01/30/17. Currently patient is undergoing hemodialysis Monday per nephrology. He is awaiting for insurance paperwork to be completed so that he can be placed in a senior care. Fistulogram for 03/15 was canceled prior to procedure. Will follow vascular recommendations for further evaluation. Review of systems normal. AFVSS NAD NCAT Supple RRR Mild wheezes bilaterally Soft, NTND, ostomy clean No LE edema, LUE edematous, non-tender Pulses intact A&Ox3 no focal deficits Current Medications Sig/Johnna Start time Last Medication Dose Route Stop Time Status Admin Acetaminophen 650 MG Q4P PRN 01/31 1100 AC 03/16 PO 0620 Albuterol Sulfate 2 PUF Q4P PRN 02/06 0800 AC 02/06 INH 1313 Albuterol Sulfate 3 ML EVERY 4 HRS/AWAKE 02/05 1600 AC 03/17 INH 0816 Allopurinol 100 MG DAILY 02/20 1818 AC 03/17 PO 0930 Calcitriol 0.25 MCG TuThSa PRN 03/04 0745 AC IV Colchicine 300 MCG QTHURS 03/09 1000 AC 03/16 PO 1232 Colchicine 300 MCG QSUN 03/05 0700 AC 03/12 PO 0603 Diclofenac Sodium 1 MAI 4 TIMES/DAY 02/05 1400 AC 03/13 TOP 2212 Epoetin Guzman 4,000 UNIT TuThSa PRN 03/04 0745 AC IV Furosemide 80 MG DAILY 02/08 1138 AC 03/17 PO 0930 Guaifenesin 600 MG Q12 02/16 1000 AC 03/17 PO 0930 Guaifenesin/ 10 ML Q6P PRN 02/22 2130 AC 03/10 Dextromethorphan PO 2218 Insulin Aspart 0 TIDAC/HS 03/16 0800 AC SC Omeprazole 40 MG DAILY AC 02/12 1200 AC 03/17 PO 0605 Oxycodone/ 1 TAB Q6P PRN 03/14 1630 AC 03/15 Acetaminophen PO 2241 Sodium Chloride 2 SPRAY Q4P PRN 01/31 0430 AC 02/05 CHULA 2133 Tramadol HCl 50 MG Q6P PRN 03/16 0030 AC 03/16 PO 220 Trazodone HCl 50 MG AT BEDTIME 01/30 2200 AC 03/16 PO 213 Warfarin Sodium 6 MG COUMADIN 1700 ONE 03/17 1700 UNVr PO 03/17 1701 Plan - Continue current management - Follow vascular recommendations for arm swelling - Will dose Coumadin - Follow nephrology recommendations - Follow up with social work and case management regarding placement to [facility]
[2017-03-17 11:59] LABS: PT 25.1 SEC (9.4-12.5)
--- NOTE | 2017-03-17 12:39 | PN- Nephrology ---
Assessment/Plan Assessment: 1. ESRD 2. Status post bowel resection with colostomy 01/28/17 for ischemic bowel 3. Persistent edema left upper extremity status post creation of left brachiocephalic AVF 01/26/17 4. Hyperphosphatemia - improving 5. COPD and multiple other comorbidities Suggestion: 1. Hemodialysis tomorrow with ultrafiltration to his target weight of 81 kg 2. Will need fistulogram per Dr. Jackson who is in the process of scheduling it 3. Mobilize 4. Await disposition Subjective Subjective: No new issues or complaints. Left arm unchanged. Awaiting title 19 and then rehabilitation placement. Objective Vital Signs and I&Os Vital Signs Date Time Temp Pulse Resp B/P B/P Pulse O2 O2 Flow FiO2 Mean Ox Delivery Rate 03/17 0818 98 Room Air Room Air 03/17 0630 97.8 62 20 112/58 91 Room Air 03/17 0159 94 Nasal 2.0L Cannula 03/17 0126 87 Room Air 03/17 0000 Nasal 2.0L Cannula 03/16 2237 97.9 60 24 108/50 92 Room Air 03/16 1625 90 Room Air 03/16 1600 Room Air 03/16 1346 98.7 80 20 110/62 92 Intake & Output 03/17 1600 03/17 0400 03/16 1600 03/16 0400 03/15 1600 03/15 0400 Intake Total 240 1010 240 450 200 Output Total 200 3150 100 76 100 Balance 240 810 -2910 350 -76 100 Intake, IV 10 Intake, Oral 240 1000 240 450 200 Number 1 Bowel Movements Output, 3000 Dialysate Output, Stool 200 100 100 75 100 Output, Urine 50 1 Patient 178 lb 176 lb 183 lb Weight Weight Standing Scale Measurement Method Physical Exam: General: Well-developed white male in NAD Skin: No rash or jaundice HEENT: Conjunctivae pink, sclerae anicteric, mucous membranes moist Neck: Without masses or thyromegaly, no supraclavicular or cervical adenopathy Chest: Scattered rhonchi and wheezes bilaterally Heart: Regular rate and rhythm without S3 or rub Abdomen: Obese, soft and nontender; colostomy Extremities: Without LE cyanosis or edema; +LUE edema; dorsum of left hand discolored and exfoliating Neuro: No focal findings, no asterixis or myoclonus Results Pertinent Lab Results: Laboratory Tests 03/17 03/16 03/16 1131 0745 0600 Chemistry Sodium (137 - 145 mmol/L) 138 Potassium (3.5 - 5.1 mmol/L) 4.5 Chloride (98 - 107 mmol/L) 98 Carbon Dioxide (22 - 30 mmol/L) 24 Anion Gap (5 - 16) 15 BUN (9 - 20 mg/dL) 31 H Creatinine (0.7 - 1.2 mg/dL) 5.4 *H Estimated GFR (>60 ml/min) 10 L BUN/Creatinine Ratio (7 - 25 %) 5.7 L Calcium (8.4 - 10.2 mg/dL) 8.6 Phosphorus (2.5 - 4.5 mg/dL) 5.8 H Magnesium (1.6 - 2.3 mg/dL) 1.8 Albumin (3.5 - 5.0 g/dL) 3.3 L Coagulation PT (9.4 - 12.5 SEC) 25.1 H Cancelled INR (0.90 - 1.17) 2.41 H Cancelled Hematology CBC w Diff NO MAN DIFF REQ WBC (4.8 - 10.8 /CUMM) 9.7 RBC (4.70 - 6.10 /CUMM) 3.35 L Hgb (14.0 - 18.0 G/DL) 9.2 L Hct (42 - 52 %) 29.1 L MCV (80.0 - 94.0 FL) 86.8 MCH (27.0 - 31.0 PG) 27.4 RDW (11.5 - 14.5 %) 19.5 H Plt Count (130 - 400 /CUMM) 147 MPV (7.4 - 10.4 FL) 8.4 Gran % (42.2 - 75.2 %) 76.4 H Lymphocytes % (20.5 - 51.1 %) 12.1 L Monocytes % (1.7 - 9.3 %) 8.5 Eosinophils % (0 - 5 %) 2.3 Basophils % (0.0 - 2.0 %) 0.7 Absolute Granulocytes (1.4 - 6.5 /CUMM) 7.4 H Absolute Lymphocytes (1.2 - 3.4 /CUMM) 1.2 Absolute Monocytes (0.10 - 0.60 /CUMM) 0.8 H Absolute Eosinophils (0.0 - 0.7 /CUMM) 0.2 Absolute Basophils (0.0 - 0.2 /CUMM) 0.1 PUBS MCHC (33.0 - 37.0 G/DL) 31.6 L 03/15 0645 Coagulation PT (9.4 - 12.5 SEC) 27.1 H INR (0.90 - 1.17) 2.61 H
[2017-03-17 15:35] VITALS: BP 110/58
[2017-03-17 22:36] VITALS: BP 112/60
--- NOTE | 2017-03-18 00:44 | NUR ---
ALERT AND ORIENTED X 3. VITAL SIGNS STABLE. DENIES CHEST PAIN. + PULSES ON ROOM AIR. PATIENT IS INDEP WITH COLOSTOMY CARE. LAV FISTULA MATURING. +BRUIT AND THRILL. PT HAS A RCW MARILU CATH. PATIENT RESTING AT THIS TIME. WILL CONTINUE TO MONITOR
[2017-03-18 07:57] VITALS: BP 106/60
[2017-03-18 14:06] LABS: ABSOLUTE BASOPHIL COUNT 0.1 /CUMM (0.0-0.2); ABSOLUTE EOSINOPHIL COUNT 0.3 /CUMM (0.0-0.7); ABSOLUTE GRANULOCYTE CT 7.5 /CUMM (1.4-6.5); ABSOLUTE LYMPH COUNT 1.4 /CUMM (1.2-3.4); ABSOLUTE MONOCYTE COUNT 1.1 /CUMM (0.10-0.60); BASOPHIL % 0.8 % (0.0-2.0); EOSINOPHIL % 2.5 % (0-5); GRANULOCYTE % 72.7 % (42.2-75.2); HEMATOCRIT 30.9 % (42-52); MEAN CORPUSCULAR HGB 27.4 PG (27.0-31.0); MEAN CORPUSCULAR HGB CONC 31.5 G/DL (33.0-37.0); MEAN PLATELET VOLUME 8.9 FL (7.4-10.4); PLATELET COUNT 145 /CUMM (130-400); RBC DISTRIBUTION WIDTH 19.8 % (11.5-14.5); RED BLOOD CELL CT 3.55 /CUMM (4.70-6.10); WHITE BLOOD CELL COUNT 10.3 /CUMM (4.8-10.8)
--- NOTE | 2017-03-18 15:09 | PN- Nephrology ---
Assessment/Plan Assessment: ESRD - Routine dialysis today. Ischemic bowel - s/p resection RADHA swelling - s/p creation of L brachiocephalic AVF 01/26/17 - still using CVC. Awaiting fistulogram. Suggestion: -HD today - UF to [facility] -Fistulogram as per Dr. Jackson Please call [phone] with ?'s Subjective Subjective: Pt seen and examined on dialysis Still with pain in L hand Still with cough; breathing otherwise OK Objective Vital Signs and I&Os Vital Signs Date Time Temp Pulse Resp B/P B/P Pulse O2 O2 Flow FiO2 Mean Ox Delivery Rate 03/18 0842 96 Room Air 03/18 0800 05 Nasal 2.0L Cannula 03/18 0757 99.0 60 20 106/60 97 Nasal 2.0L Cannula 03/18 0000 91 Room Air 03/17 2236 98.0 59 20 112/60 91 Room Air 03/17 1613 85 Room Air 03/17 1600 Room Air 03/17 1535 98.1 59 20 110/58 93 Intake & Output 03/18 1600 03/18 0400 03/17 1600 03/17 0400 03/16 1600 03/16 0400 Intake Total 354 233 1980 1010 240 450 Output Total 50 200 3150 100 Balance 108 267 4223 810 -2910 350 Intake, IV 0 10 Intake, Oral 468 537 4922 1000 240 450 Number 1 1 1 Bowel Movements Output, 3000 Dialysate Output, Stool 50 200 100 100 Output, Urine 0 50 Patient 180 lb 178 lb 176 lb Weight Weight Standing Scale Measurement Method Physical Exam: Gen - chronically ill appearing HEENT - supple CV - RRR, no m/r/g Chest - clear anteriorly, coughing Abd - soft, nontender Ext - hyperpigmentation of legs, no significant edema, RADHA with tahir complexion to hand; swelling overall improved Neuro - AOX3, grossly nonfocal Current Medications: Current Medications Sig/Johnna Start time Last Medication Dose Route Stop Time Status Admin Acetaminophen 650 MG Q4P PRN 01/31 1100 AC 03/16 PO 0620 Albuterol Sulfate 2 PUF Q4P PRN 02/06 0800 AC 02/06 INH 1313 Albuterol Sulfate 3 ML EVERY 4 HRS/AWAKE 02/05 1600 AC 03/18 INH 1157 Allopurinol 100 MG DAILY 02/20 1818 AC 03/17 PO 0930 Calcitriol 0.25 MCG TuThSa PRN 03/04 0745 AC IV Colchicine 300 MCG QTHURS 03/09 1000 AC 03/16 PO 1232 Colchicine 300 MCG QSUN 03/05 0700 AC 03/12 PO 0603 Diclofenac Sodium 1 MAI 4 TIMES/DAY 02/05 1400 AC 03/17 TOP 2330 Epoetin Guzman 4,000 UNIT TuThSa PRN 03/04 0745 AC IV Furosemide 80 MG DAILY 02/08 1138 AC 03/17 PO 0930 Guaifenesin 600 MG Q12 02/16 1000 AC 03/17 PO 2229 Guaifenesin/ 10 ML Q6P PRN 02/22 2130 AC 03/10 Dextromethorphan PO 2218 Insulin Aspart 0 TIDAC/HS 03/16 0800 AC 03/18 SC 1128 Omeprazole 40 MG DAILY AC 02/12 1200 AC 03/18 PO 0706 Oxycodone/ 1 TAB Q6P PRN 03/14 1630 AC 03/18 Acetaminophen PO 0340 Sodium Chloride 2 SPRAY Q4P PRN 01/31 0430 AC 02/05 CHULA 2133 Tramadol HCl 50 MG Q6P PRN 03/16 0030 AC 03/18 PO 1120 Trazodone HCl 50 MG AT BEDTIME 01/30 2200 AC 03/17 PO 2229 Warfarin Sodium 6 MG COUMADIN 1700 ONE 03/17 1700 DC 03/17 PO 03/17 1701 1716 Results Pertinent Lab Results: Laboratory Tests 03/18 03/18 03/17 0930 0600 1131 Chemistry Sodium (137 - 145 mmol/L) 136 L Potassium (3.5 - 5.1 mmol/L) 4.0 Chloride (98 - 107 mmol/L) 97 L Carbon Dioxide (22 - 30 mmol/L) 24 Anion Gap (5 - 16) 16 BUN (9 - 20 mg/dL) 30 H Creatinine (0.7 - 1.2 mg/dL) 5.8 *H Estimated GFR (>60 ml/min) 10 L BUN/Creatinine Ratio (7 - 25 %) 5.2 L Glucose (65 - 99 mg/dL) 115 H Calcium (8.4 - 10.2 mg/dL) 8.7 Phosphorus (2.5 - 4.5 mg/dL) 5.6 H Magnesium (1.6 - 2.3 mg/dL) 2.0 Albumin (3.5 - 5.0 g/dL) 3.6 Coagulation PT (9.4 - 12.5 SEC) Pending 25.1 H INR (0.90 - 1.17) Pending 2.41 H Hematology CBC w Diff NO MAN DIFF REQ WBC (4.8 - 10.8 /CUMM) 10.3 RBC (4.70 - 6.10 /CUMM) 3.55 L Hgb (14.0 - 18.0 G/DL) 9.7 L Hct (42 - 52 %) 30.9 L MCV (80.0 - 94.0 FL) 87.0 MCH (27.0 - 31.0 PG) 27.4 RDW (11.5 - 14.5 %) 19.8 H Plt Count (130 - 400 /CUMM) 145 MPV (7.4 - 10.4 FL) 8.9 Gran % (42.2 - 75.2 %) 72.7 Lymphocytes % (20.5 - 51.1 %) 13.2 L Monocytes % (1.7 - 9.3 %) 10.8 H Eosinophils % (0 - 5 %) 2.5 Basophils % (0.0 - 2.0 %) 0.8 Absolute Granulocytes (1.4 - 6.5 /CUMM) 7.5 H Absolute Lymphocytes (1.2 - 3.4 /CUMM) 1.4 Absolute Monocytes (0.10 - 0.60 /CUMM) 1.1 H Absolute Eosinophils (0.0 - 0.7 /CUMM) 0.3 Absolute Basophils (0.0 - 0.2 /CUMM) 0.1 PUBS MCHC (33.0 - 37.0 G/DL) 31.5 L 03/16 03/16 0745 0600 Chemistry Sodium (137 - 145 mmol/L) 138 Potassium (3.5 - 5.1 mmol/L) 4.5 Chloride (98 - 107 mmol/L) 98 Carbon Dioxide (22 - 30 mmol/L) 24 Anion Gap (5 - 16) 15 BUN (9 - 20 mg/dL) 31 H Creatinine (0.7 - 1.2 mg/dL) 5.4 *H Estimated GFR (>60 ml/min) 10 L BUN/Creatinine Ratio (7 - 25 %) 5.7 L Calcium (8.4 - 10.2 mg/dL) 8.6 Phosphorus (2.5 - 4.5 mg/dL) 5.8 H Magnesium (1.6 - 2.3 mg/dL) 1.8 Albumin (3.5 - 5.0 g/dL) 3.3 L Coagulation PT Cancelled INR Cancelled Hematology CBC w Diff NO MAN DIFF REQ WBC (4.8 - 10.8 /CUMM) 9.7 RBC (4.70 - 6.10 /CUMM) 3.35 L Hgb (14.0 - 18.0 G/DL) 9.2 L Hct (42 - 52 %) 29.1 L MCV (80.0 - 94.0 FL) 86.8 MCH (27.0 - 31.0 PG) 27.4 RDW (11.5 - 14.5 %) 19.5 H Plt Count (130 - 400 /CUMM) 147 MPV (7.4 - 10.4 FL) 8.4 Gran % (42.2 - 75.2 %) 76.4 H Lymphocytes % (20.5 - 51.1 %) 12.1 L Monocytes % (1.7 - 9.3 %) 8.5 Eosinophils % (0 - 5 %) 2.3 Basophils % (0.0 - 2.0 %) 0.7 Absolute Granulocytes (1.4 - 6.5 /CUMM) 7.4 H Absolute Lymphocytes (1.2 - 3.4 /CUMM) 1.2 Absolute Monocytes (0.10 - 0.60 /CUMM) 0.8 H Absolute Eosinophils (0.0 - 0.7 /CUMM) 0.2 Absolute Basophils (0.0 - 0.2 /CUMM) 0.1 PUBS MCHC (33.0 - 37.0 G/DL) 31.6 L Imaging/Other Studies: No new imaging
[2017-03-18 16:02] LABS: PTT 42 SEC (25-37)
[2017-03-18 16:07] LABS: PT 22.4 SEC (9.4-12.5)
[2017-03-18 16:33] VITALS: BP 114/50
--- NOTE | 2017-03-18 20:19 | PN- Att Addend ---
Attending Addendum Attending Brief Note S: The patient was seen in dialysis and c/o cough with some mucus in throat. No fever, chills or dyspnea. O: VS: Vital Signs Date Time Temp Pulse Resp B/P B/P Pulse O2 O2 Flow FiO2 Mean Ox Delivery Rate 03/18 1633 94 Room Air Room Air 03/18 1633 98.6 61 20 114/50 96 Room Air 03/18 0842 96 Room Air 03/18 0800 05 Nasal 2.0L Cannula 03/18 0757 99.0 60 20 106/60 97 Nasal 2.0L Cannula 03/18 0000 91 Room Air 03/17 2236 98.0 59 20 112/60 91 Room Air Intake & Output 03/18 1600 03/18 0800 03/18 0000 Intake Total 480 200 250 Output Total 50 Balance 480 150 250 Intake, IV 0 Intake, Oral 480 200 250 Number 1 Bowel Movements Output, Stool 50 Output, Urine 0 Patient 180 lb Weight Current Medications Sig/Johnna Start time Last Medication Dose Route Stop Time Status Admin Acetaminophen 650 MG Q4P PRN 01/31 1100 AC 03/16 PO 0620 Albuterol Sulfate 2 PUF Q4P PRN 02/06 0800 AC 02/06 INH 1313 Albuterol Sulfate 3 ML EVERY 4 HRS/AWAKE 02/05 1600 AC 03/18 INH 1629 Allopurinol 100 MG DAILY 02/20 1818 AC 03/18 PO 1548 Calcitriol 0.25 MCG TuThSa PRN 03/04 0745 AC IV Colchicine 300 MCG QTHURS 03/09 1000 AC 03/16 PO 1232 Colchicine 300 MCG QSUN 03/05 0700 AC 03/12 PO 0603 Diclofenac Sodium 1 MAI 4 TIMES/DAY 02/05 1400 AC 03/17 TOP 2330 Epoetin Guzman 4,000 UNIT TuThSa PRN 03/04 0745 AC IV Furosemide 80 MG DAILY 02/08 1138 AC 03/18 PO 1547 Guaifenesin 600 MG Q12 02/16 1000 AC 03/18 PO 1547 Guaifenesin/ 10 ML Q6P PRN 02/22 2130 AC 03/10 Dextromethorphan PO 2218 Insulin Aspart 0 TIDAC/HS 03/16 0800 AC 03/18 SC 1128 Omeprazole 40 MG DAILY AC 02/12 1200 AC 03/18 PO 0706 Oxycodone/ 1 TAB Q6P PRN 03/14 1630 AC 03/18 Acetaminophen PO 0340 Sodium Chloride 2 SPRAY Q4P PRN 01/31 0430 AC 02/05 CHULA 2133 Tramadol HCl 50 MG Q6P PRN 03/16 0030 AC 03/18 PO 1120 Trazodone HCl 50 MG AT BEDTIME 01/30 2200 AC 03/17 PO 2229 Physical Exam: Chest: few upper airway rhonchi, resolve post cough Cor: RRR, nl S1, S2 w/o murm Abd: BS+, soft, NT, has ostomy Ext: LE w/o edema, + LUE edema w/o change per nursing Labs: Laboratory Tests 03/18/17 1500: PT 22.4 H, INR 2.15 H 03/18/17 1500: APTT 42 H 03/18/17 0930: Anion Gap 16, Estimated GFR 10 L, BUN/Creatinine Ratio 5.2 L, Glucose 115 H, Calcium 8.7, Phosphorus 5.6 H, Magnesium 2.0, Albumin 3.6, CBC w Diff NO MAN DIFF REQ, RBC 3.55 L, MCV 87.0, MCH 27.4, RDW 19.8 H, MPV 8.9, Gran % 72.7, Lymphocytes % 13.2 L, Monocytes % 10.8 H, Eosinophils % 2.5, Basophils % 0.8, Absolute Granulocytes 7.5 H, Absolute Lymphocytes 1.4, Absolute Monocytes 1.1 H, Absolute Eosinophils 0.3, Absolute Basophils 0.1, PUBS MCHC 31.5 L 03/17/17 1131: PT 25.1 H, INR 2.41 H Impression/Plan: #ESRD - on dialysis. LUE fistula in place, however not using. Plan: Await fistulogram to be arranged. #Cough/COPD- lungs fairly clear today, however patient c/o cough with upper airway mucus. Is on Guaifenesin and Albuterol. Plan: Continue current meds and observe. #Gout- on Colchicine/Allopurinol. No c/o. Plan: Continue Colchicine and Allopurinol. DM2- on insulin. Plan: Continue insulin.
[2017-03-18 22:38] VITALS: BP 102/40
[2017-03-19 07:34] VITALS: BP 90/58
[2017-03-19 14:08] VITALS: BP 100/52
[2017-03-19 14:13] VITALS: BP 100/52
--- NOTE | 2017-03-19 15:13 | PN- Att Addend ---
Attending Addendum Attending Brief Note S: The patient continued with mild cough w/o change. Otherwise w/o complaints. Tolerated dialysis yesterday. O: VS: Current Medications Sig/Johnna Start time Last Medication Dose Route Stop Time Status Admin Acetaminophen 650 MG Q4P PRN 01/31 1100 AC 03/16 PO 0620 Albuterol Sulfate 2 PUF Q4P PRN 02/06 0800 AC 02/06 INH 1313 Albuterol Sulfate 3 ML EVERY 4 HRS/AWAKE 02/05 1600 AC 03/19 INH 2045 Allopurinol 100 MG DAILY 02/20 1818 AC 03/19 PO 0901 Calcitriol 0.25 MCG TuThSa PRN 03/04 0745 AC IV Colchicine 300 MCG QTHURS 03/09 1000 AC 03/16 PO 1232 Colchicine 300 MCG QSUN 03/05 0700 AC 03/19 PO 0615 Diclofenac Sodium 1 MAI 4 TIMES/DAY 02/05 1400 AC 03/17 TOP 2330 Epoetin Guzman 4,000 UNIT TuThSa PRN 03/04 0745 AC IV Furosemide 80 MG DAILY 02/08 1138 AC 03/19 PO 0901 Guaifenesin 600 MG Q12 02/16 1000 AC 03/19 PO 2129 Guaifenesin/ 10 ML Q6P PRN 02/22 2130 AC 03/10 Dextromethorphan PO 2218 Insulin Aspart 0 TIDAC/HS 03/16 0800 AC 03/19 SC 1745 Omeprazole 40 MG DAILY AC 02/12 1200 AC 03/19 PO 0618 Oxycodone/ 1 TAB Q6P PRN 03/14 1630 AC 03/18 Acetaminophen PO 0340 Sodium Chloride 2 SPRAY Q4P PRN 01/31 0430 AC 02/05 CHULA 2133 Tramadol HCl 50 MG Q6P PRN 03/16 0030 AC 03/19 PO 2130 Trazodone HCl 50 MG AT BEDTIME 01/30 2200 AC 03/19 PO 2129 Warfarin Sodium 5 MG COUMADIN 1700 ONE 03/19 1700 DC 03/19 PO 03/19 1701 1745 Vital Signs Date Time Temp Pulse Resp B/P B/P Pulse O2 O2 Flow FiO2 Mean Ox Delivery Rate 03/19 2128 97.9 60 18 118/50 96 Room Air 03/19 2045 96 Room Air 03/19 1716 96 Room Air 03/19 1600 Room Air 03/19 1413 97.8 67 20 100/52 93 03/19 1408 97.8 67 20 100/52 98 03/19 0830 95 Room Air 03/19 0734 98.1 59 20 90/58 92 Room Air Intake & Output 03/20 0800 03/20 0000 03/19 1600 Intake Total 600 120 Output Total 200 300 Balance 400 -180 Intake, Oral 600 120 Output, Stool 200 Output, Urine 300 Physical Exam: Chest: few upper airway rhonchi, resolve post cough Cor: RRR, nl S1, S2 w/o murm Abd: BS+, soft, NT, has ostomy Ext: LE w/o edema, + LUE edema w/o change per nursing Labs: Laboratory Tests 03/18 03/18 03/18 1500 1500 0930 Chemistry Sodium (137 - 145 mmol/L) 136 L Potassium (3.5 - 5.1 mmol/L) 4.0 Chloride (98 - 107 mmol/L) 97 L Carbon Dioxide (22 - 30 mmol/L) 24 Anion Gap (5 - 16) 16 BUN (9 - 20 mg/dL) 30 H Creatinine (0.7 - 1.2 mg/dL) 5.8 *H Estimated GFR (>60 ml/min) 10 L BUN/Creatinine Ratio (7 - 25 %) 5.2 L Glucose (65 - 99 mg/dL) 115 H Calcium (8.4 - 10.2 mg/dL) 8.7 Phosphorus (2.5 - 4.5 mg/dL) 5.6 H Magnesium (1.6 - 2.3 mg/dL) 2.0 Albumin (3.5 - 5.0 g/dL) 3.6 Coagulation PT (9.4 - 12.5 SEC) 22.4 H INR (0.90 - 1.17) 2.15 H APTT (25 - 37 SEC) 42 H Hematology CBC w Diff NO MAN DIFF REQ WBC (4.8 - 10.8 /CUMM) 10.3 RBC (4.70 - 6.10 /CUMM) 3.55 L Hgb (14.0 - 18.0 G/DL) 9.7 L Hct (42 - 52 %) 30.9 L MCV (80.0 - 94.0 FL) 87.0 MCH (27.0 - 31.0 PG) 27.4 RDW (11.5 - 14.5 %) 19.8 H Plt Count (130 - 400 /CUMM) 145 MPV (7.4 - 10.4 FL) 8.9 Gran % (42.2 - 75.2 %) 72.7 Lymphocytes % (20.5 - 51.1 %) 13.2 L Monocytes % (1.7 - 9.3 %) 10.8 H Eosinophils % (0 - 5 %) 2.5 Basophils % (0.0 - 2.0 %) 0.8 Absolute Granulocytes (1.4 - 6.5 /CUMM) 7.5 H Absolute Lymphocytes (1.2 - 3.4 /CUMM) 1.4 Absolute Monocytes (0.10 - 0.60 /CUMM) 1.1 H Absolute Eosinophils (0.0 - 0.7 /CUMM) 0.3 Absolute Basophils (0.0 - 0.2 /CUMM) 0.1 PUBS MCHC (33.0 - 37.0 G/DL) 31.5 L Impression/Plan: #ESRD - on dialysis. LUE fistula in place, however not using. Plan: Await fistulogram to be arranged. #Cough/COPD- lungs fairly clear today, however patient c/o cough with upper airway mucus. Is on Guaifenesin and Albuterol. Plan: Continue current meds and observe. #Gout- on Colchicine/Allopurinol. No c/o. Plan: Continue Colchicine and Allopurinol. #DM2- stable on insulin. Plan: Continue insulin. #PAF- on Coumadin. Plan: Continue Coumadin and follow-up INR in morning.
--- NOTE | 2017-03-19 17:08 | NUR ---
PT QUESTIONING WHETHER HE IS GOING TO GET COUMADIN TODAY OR NOT. PT INR YESTERDAY 03/18/[address] POP NOTIFIED. PER DR POP, HE IS GOING TO ORDER 5MG PO COUMADIN FOR TODAY & RECHECK INR IN AM. PT UPDATED ON POC. PTS IV OUTDATED, DUE TO DIFFICULT STICK- IV EXTENDED. WILL CONTINUE TO MONITOR.
[2017-03-19 21:28] VITALS: BP 118/50
[2017-03-20 06:48] VITALS: BP 126/60
[2017-03-20 08:19] LABS: PT 19.4 SEC (9.4-12.5)
--- NOTE | 2017-03-20 10:18 | PN- Nephrology ---
Assessment/Plan Assessment: 1. ESRD: no HD needs topday 2. L arm edema: prob severe venous HTN post AVF --> suspicious for L central V stenosis or occlusion in setting of L sided pacer. Suggestion: 1. HD tomorrow 2. needs vasc surg f/u w fistulogram Subjective Subjective: Still c/o L arm swelling & hand pain Objective Vital Signs and I&Os Vital Signs Date Time Temp Pulse Resp B/P B/P Pulse O2 O2 Flow FiO2 Mean Ox Delivery Rate 03/20 0842 95 Room Air 03/20 0648 98.0 61 18 126/60 96 Room Air 03/19 2128 97.9 60 18 118/50 96 Room Air 03/19 2045 96 Room Air 03/19 1716 96 Room Air 03/19 1600 Room Air 03/19 1413 97.8 67 20 100/52 93 03/19 1408 97.8 67 20 100/52 98 Intake & Output 03/20 1600 03/20 0400 03/19 1600 03/19 0400 03/18 1600 03/18 0400 Intake Total 400 600 120 100 680 250 Output Total 200 450 300 50 Balance 400 400 -330 -200 630 250 Intake, IV 0 Intake, Oral 400 600 120 100 680 250 Number 1 1 Bowel Movements Output, Stool 200 150 300 50 Output, Urine 300 0 Patient 184 lb 181 lb 179 lb 180 lb Weight Weight Standing Scale Chair scale Measurement Method Physical Exam General Appearance: well developed/nourished, no apparent distress Head: atraumatic, normal appearance Ears, Nose, Throat: normal ENT inspection Neck: R IJ HD cath; L upper chest pacer Respiratory: normal breath sounds, no respiratory distress, quiet respiration, lungs clear Cardiovascular: regular rate/rhythm Abdomen: soft, non-tender, ostomy intact Extremities: + bruit RADHA AVF; marked edema L arm --> hand w desquamating skin changes L hand Neurologic/Psychiatric: awake, alert, normal gait Skin: L hand desquamating Current Medications: Current Medications Sig/Johnna Start time Last Medication Dose Route Stop Time Status Admin Acetaminophen 650 MG Q4P PRN 01/31 1100 AC 03/16 PO 0620 Albuterol Sulfate 2 PUF Q4P PRN 02/06 0800 AC 02/06 INH 1313 Albuterol Sulfate 3 ML EVERY 4 HRS/AWAKE 02/05 1600 AC 03/20 INH 0824 Allopurinol 100 MG DAILY 02/20 1818 AC 03/20 PO 0816 Calcitriol 0.25 MCG TuThSa PRN 03/04 0745 AC IV Colchicine 300 MCG QTHURS 03/09 1000 AC 03/16 PO 1232 Colchicine 300 MCG QSUN 03/05 0700 AC 03/19 PO 0615 Diclofenac Sodium 1 MAI 4 TIMES/DAY 02/05 1400 AC 03/17 TOP 2330 Epoetin Guzman 4,000 UNIT TuThSa PRN 03/04 0745 AC IV Furosemide 80 MG DAILY 02/08 1138 AC 03/20 PO 0815 Guaifenesin 600 MG Q12 02/16 1000 AC 03/20 PO 0816 Guaifenesin/ 10 ML Q6P PRN 02/22 2130 AC 03/10 Dextromethorphan PO 2218 Insulin Aspart 0 TIDAC/HS 03/16 0800 AC 03/19 SC 1745 Omeprazole 40 MG DAILY AC 02/12 1200 AC 03/20 PO 0607 Oxycodone/ 1 TAB Q6P PRN 03/14 1630 AC 03/18 Acetaminophen PO 0340 Sodium Chloride 2 SPRAY Q4P PRN 01/31 0430 AC 02/05 CHULA 2133 Tramadol HCl 50 MG Q6P PRN 03/16 0030 AC 03/20 PO 0607 Trazodone HCl 50 MG AT BEDTIME 01/30 2200 AC 03/19 PO 2129 Warfarin Sodium 5 MG COUMADIN 1700 ONE 03/19 1700 DC 03/19 PO 03/19 1701 1745 Results Pertinent Lab Results: Laboratory Tests 03/20 03/18 03/18 0725 1500 1500 Coagulation PT (9.4 - 12.5 SEC) 19.4 H 22.4 H INR (0.90 - 1.17) 1.86 H 2.15 H APTT (25 - 37 SEC) 42 H 03/18 03/17 0930 1131 Chemistry Sodium (137 - 145 mmol/L) 136 L Potassium (3.5 - 5.1 mmol/L) 4.0 Chloride (98 - 107 mmol/L) 97 L Carbon Dioxide (22 - 30 mmol/L) 24 Anion Gap (5 - 16) 16 BUN (9 - 20 mg/dL) 30 H Creatinine (0.7 - 1.2 mg/dL) 5.8 *H Estimated GFR (>60 ml/min) 10 L BUN/Creatinine Ratio (7 - 25 %) 5.2 L Glucose (65 - 99 mg/dL) 115 H Calcium (8.4 - 10.2 mg/dL) 8.7 Phosphorus (2.5 - 4.5 mg/dL) 5.6 H Magnesium (1.6 - 2.3 mg/dL) 2.0 Albumin (3.5 - 5.0 g/dL) 3.6 Coagulation PT (9.4 - 12.5 SEC) 25.1 H INR (0.90 - 1.17) 2.41 H Hematology CBC w Diff NO MAN DIFF REQ WBC (4.8 - 10.8 /CUMM) 10.3 RBC (4.70 - 6.10 /CUMM) 3.55 L Hgb (14.0 - 18.0 G/DL) 9.7 L Hct (42 - 52 %) 30.9 L MCV (80.0 - 94.0 FL) 87.0 MCH (27.0 - 31.0 PG) 27.4 RDW (11.5 - 14.5 %) 19.8 H Plt Count (130 - 400 /CUMM) 145 MPV (7.4 - 10.4 FL) 8.9 Gran % (42.2 - 75.2 %) 72.7 Lymphocytes % (20.5 - 51.1 %) 13.2 L Monocytes % (1.7 - 9.3 %) 10.8 H Eosinophils % (0 - 5 %) 2.5 Basophils % (0.0 - 2.0 %) 0.8 Absolute Granulocytes (1.4 - 6.5 /CUMM) 7.5 H Absolute Lymphocytes (1.2 - 3.4 /CUMM) 1.4 Absolute Monocytes (0.10 - 0.60 /CUMM) 1.1 H Absolute Eosinophils (0.0 - 0.7 /CUMM) 0.3 Absolute Basophils (0.0 - 0.2 /CUMM) 0.1 PUBS MCHC (33.0 - 37.0 G/DL) 31.5 L
[2017-03-20 14:40] VITALS: BP 110/55
--- NOTE | 2017-03-20 16:08 | PN- Att Addend ---
See Addendum Attending Addendum Attending Brief Note Pt continues to complain of left arm swelling. He says Dr. Jackson came to see him on March 14 and told him he would have a procedure done on March 15. On exam pressure is 120/70, pulse is 78, breathing at 16-18, afebrile. Lungs have decreased breath sounds at the bases, heart is S1-S2 irregular, abdomen is soft and he does have this left arm swelling. He is a 72-year-old male with COPD, A. fib on Coumadin end-stage renal disease on hemodialysis. He is dialyzed Monday ,Monday, Monday. He continues to have this left arm swelling and I've seen renal's recommendations of getting vascular involved for questionable severe venous stenosis. Will call Dr. Jackson to see the patient again. His INR is 1.8, will dose 5 mg of Coumadin and follow-up INR in a.m.
[2017-03-20 22:34] VITALS: BP 124/60
--- NOTE | 2017-03-20 23:42 | NUR ---
PATIENT VERY CONCERNED ABOUT L HAND, FEELS HE MAY NEED ANTIBIOTICS. HAND VERY EDEMATOUS, RED, COOL TO TOUCH, +PULSES. PAINFUL. UPPER & LOWER L ARM MEASURED-BOTH INCREASED 2CM FROM THIS AM. ENCOURAGED PATIENT TO ELEVATE ARM/HAND. ATTEMPTED TO CALL HOSPITALIST, AND MOD, NO RETURN CALLS. FINALLY REACHED DR AVALOS, [employer]. HE VISITED WITH PATIENT, PROMISED HE WOULD LET PATIENT'S CONCERNS BE KNOWN TO THE AM TEAM. PATIENT VERY FRUSTRATED, FEELING NOTHING IS BEING DONE AND IS CONCERNED ABOUT LOSING HIS HAND. DOCTORS HAVE REASSURED HIM, THERE'S NOTHING TO WORRY ABOUT. PROVIDED EMOTIONAL SUPPORT, CONTINUE TO MONITOR.
--- NOTE | 2017-03-21 00:30 | Event Note ---
Event Note Event Note: 72 year old male with past medical history significant for COPD, A. fib on Coumadin, end-stage renal disease on hemodialysis Monday, and Monday. I was called up by the nursing staff at 10:30 PM regarding patient's progressive left arm swelling and pain. His vitals were, temp of 97.9, Heart rate of 60, resp rate of 20, BP of 124/60 and saturating 98% on RA. OE patient left hand revelaed a visible swelling with skin tethering moreso on the joints a /w pigmentation, skin almost close to getting blisters and wearing out. Pt was really annoyed, disappointed, dishearteneded, frustrated and complaining about the lack of communication on the part of his providers. I sat down with him and chatted with him all the possbile steps that has been taken and further course of action that can be considered by vascular surgeon. Pt does not seems intersted in getting more pain medications but he wanted a solution to his problem and was upset by the care he is getting. I assured him that everyting possible will be done, and advise to keep his arm and hand elevated and get rested on the comfortable pillow.
[2017-03-21 06:34] VITALS: BP 134/50
--- NOTE | 2017-03-21 08:18 | PN- Nephrology ---
Assessment/Plan Assessment: 1. ESRD: HD in progress - UF 3 liters 2. L arm edema: severe venous HTN post AVF --> ? L central V stenosis/occlusion due to L sided pacer; spoke w Dr Jackson & plan for fistulogram this week Suggestion: 1. next HD 2. fistulogram per vasc surg Subjective Subjective: No new issues Still c/o L arm swelling & hand pain Objective Vital Signs and I&Os Vital Signs Date Time Temp Pulse Resp B/P B/P Pulse O2 O2 Flow FiO2 Mean Ox Delivery Rate 03/21 0634 97.7 71 18 134/50 93 Room Air 03/21 0142 Room Air 03/20 2234 97.9 60 20 124/60 98 Room Air 03/20 1620 97 Room Air 03/20 1600 93 Room Air 03/20 1440 98.4 66 20 110/55 93 03/20 0842 95 Room Air Intake & Output 03/21 1600 03/21 0400 03/20 1600 03/20 0400 03/19 1600 03/19 0400 Intake Total 240 600 400 600 120 100 Output Total 50 500 1 200 450 300 Balance 190 100 399 400 -330 -200 Intake, Oral 240 600 400 600 120 100 Number 1 Bowel Movements Output, Stool 50 200 1 200 150 300 Output, Urine 300 300 Patient 190 lb 184 lb 181 lb 179 lb Weight Weight Standing Scale Standing Scale Chair scale Measurement Method Physical Exam General Appearance: no apparent distress, alert Head: atraumatic, normal appearance Neck: R IJ HD cath Respiratory: no respiratory distress, lungs clear Cardiovascular: regular rate/rhythm, pacer L chest Abdomen: soft, non-tender Extremities: + bruit L arm AVF; arm edematous Neurologic/Psychiatric: awake, alert Current Medications: Current Medications Sig/Johnna Start time Last Medication Dose Route Stop Time Status Admin Acetaminophen 650 MG Q4P PRN 01/31 1100 AC 03/16 PO 0620 Albuterol Sulfate 2 PUF Q4P PRN 02/06 0800 AC 02/06 INH 1313 Albuterol Sulfate 3 ML EVERY 4 HRS/AWAKE 02/05 1600 AC 03/21 INH 0141 Allopurinol 100 MG DAILY 02/20 1818 AC 03/20 PO 0816 Calcitriol 0.25 MCG TuThSa PRN 03/04 0745 AC IV Colchicine 300 MCG QTHURS 03/09 1000 AC 05/11 PO 1232 Colchicine 300 MCG QSUN 03/05 0700 AC 03/19 PO 0615 Diclofenac Sodium 1 MAI 4 TIMES/DAY 02/05 1400 AC 03/17 TOP 2330 Epoetin Guzman 4,000 UNIT TuThSa PRN 03/04 0745 AC IV Furosemide 80 MG DAILY 02/08 1138 AC 03/20 PO 0815 Guaifenesin 600 MG Q12 02/16 1000 AC 03/20 PO 2110 Guaifenesin/ 10 ML Q6P PRN 02/22 2130 AC 03/10 Dextromethorphan PO 2218 Insulin Aspart 0 TIDAC/HS 03/16 0800 AC 03/20 SC 1652 Omeprazole 40 MG DAILY AC 02/12 1200 AC 03/21 PO 0535 Oxycodone/ 1 TAB Q6P PRN 03/14 1630 AC 03/20 Acetaminophen PO 211 Patient Medication 1 ED .STK-MED ONE 03/20 1406 DC Teaching ED 03/20 1407 Sodium Chloride 2 SPRAY Q4P PRN 01/31 0430 AC 02/05 CHULA 2133 Tramadol HCl 50 MG Q6P PRN 03/16 0030 AC 03/20 PO 1656 Trazodone HCl 50 MG AT BEDTIME 01/30 2200 AC 03/20 PO 2110 Warfarin Sodium 5 MG COUMADIN 1700 ONE 03/20 1700 DC 03/20 PO 03/20 1701 1652 Results Pertinent Lab Results: Laboratory Tests 03/20 03/18 03/18 0725 1500 1500 Coagulation PT (9.4 - 12.5 SEC) 19.4 H 22.4 H INR (0.90 - 1.17) 1.86 H 2.15 H APTT (25 - 37 SEC) 42 H 03/18 0930 Chemistry Sodium (137 - 145 mmol/L) 136 L Potassium (3.5 - 5.1 mmol/L) 4.0 Chloride (98 - 107 mmol/L) 97 L Carbon Dioxide (22 - 30 mmol/L) 24 Anion Gap (5 - 16) 16 BUN (9 - 20 mg/dL) 30 H Creatinine (0.7 - 1.2 mg/dL) 5.8 *H Estimated GFR (>60 ml/min) 10 L BUN/Creatinine Ratio (7 - 25 %) 5.2 L Glucose (65 - 99 mg/dL) 115 H Calcium (8.4 - 10.2 mg/dL) 8.7 Phosphorus (2.5 - 4.5 mg/dL) 5.6 H Magnesium (1.6 - 2.3 mg/dL) 2.0 Albumin (3.5 - 5.0 g/dL) 3.6 Hematology CBC w Diff NO MAN DIFF REQ WBC (4.8 - 10.8 /CUMM) 10.3 RBC (4.70 - 6.10 /CUMM) 3.55 L Hgb (14.0 - 18.0 G/DL) 9.7 L Hct (42 - 52 %) 30.9 L MCV (80.0 - 94.0 FL) 87.0 MCH (27.0 - 31.0 PG) 27.4 RDW (11.5 - 14.5 %) 19.8 H Plt Count (130 - 400 /CUMM) 145 MPV (7.4 - 10.4 FL) 8.9 Gran % (42.2 - 75.2 %) 72.7 Lymphocytes % (20.5 - 51.1 %) 13.2 L Monocytes % (1.7 - 9.3 %) 10.8 H Eosinophils % (0 - 5 %) 2.5 Basophils % (0.0 - 2.0 %) 0.8 Absolute Granulocytes (1.4 - 6.5 /CUMM) 7.5 H Absolute Lymphocytes (1.2 - 3.4 /CUMM) 1.4 Absolute Monocytes (0.10 - 0.60 /CUMM) 1.1 H Absolute Eosinophils (0.0 - 0.7 /CUMM) 0.3 Absolute Basophils (0.0 - 0.2 /CUMM) 0.1 PUBS MCHC (33.0 - 37.0 G/DL) 31.5 L
[2017-03-21 09:15] LABS: ABSOLUTE BASOPHIL COUNT 0.1 /CUMM (0.0-0.2); ABSOLUTE EOSINOPHIL COUNT 0.2 /CUMM (0.0-0.7); ABSOLUTE GRANULOCYTE CT 6.4 /CUMM (1.4-6.5); ABSOLUTE LYMPH COUNT 1.1 /CUMM (1.2-3.4); ABSOLUTE MONOCYTE COUNT 0.7 /CUMM (0.10-0.60); BASOPHIL % 1.6 % (0.0-2.0); EOSINOPHIL % 2.6 % (0-5); GRANULOCYTE % 75.4 % (42.2-75.2); HEMATOCRIT 28.7 % (42-52); MEAN CORPUSCULAR HGB 27.5 PG (27.0-31.0); MEAN PLATELET VOLUME 8.5 FL (7.4-10.4); PLATELET COUNT 135 /CUMM (130-400); PT 22.1 SEC (9.4-12.5); PTT 42 SEC (25-37); RBC DISTRIBUTION WIDTH 19.2 % (11.5-14.5); RED BLOOD CELL CT 3.34 /CUMM (4.70-6.10); WHITE BLOOD CELL COUNT 8.6 /CUMM (4.8-10.8)
--- NOTE | 2017-03-21 12:55 | PN- Att Addend ---
Attending Addendum Attending Brief Note 72M PMH COPD, ESRD on HD, paroxysmal atrial fibrillation on Coumadin, chronic diastolic CHF, T2DM, PVD, CAD, history of MGUS, neuropathy who was originally admitted with ischemic bowel which required resection and colostomy. Also with chronic left arm swelling since undergoing AV-fistula placement on 01/30/17. Currently patient is undergoing hemodialysis Monday per nephrology. He is awaiting for insurance paperwork to be completed so that [facility]. Fistulogram scheduled for 03/24. Patient received bad news from a family member today and is very upset. Pastoral care called for support. Patient refused exam. Review of systems normal. Current Medications Sig/Johnna Start time Last Medication Dose Route Stop Time Status Admin Acetaminophen 650 MG Q4P PRN 01/31 1100 AC 03/16 PO 0620 Albuterol Sulfate 2 PUF Q4P PRN 02/06 0800 AC 02/06 INH 1313 Albuterol Sulfate 3 ML EVERY 4 HRS/AWAKE 02/05 1600 AC 03/21 INH 1229 Allopurinol 100 MG DAILY 02/20 1818 AC 03/21 PO 1203 Calcitriol 0.25 MCG TuThSa PRN 03/04 0745 AC IV Colchicine 300 MCG QTHURS 03/09 1000 AC 03/16 PO 1232 Colchicine 300 MCG QSUN 03/05 0700 AC 03/19 PO 0615 Diclofenac Sodium 1 MAI 4 TIMES/DAY 02/05 1400 AC 03/21 TOP 1203 Epoetin Guzman 4,000 UNIT TuThSa PRN 03/04 0745 AC IV Furosemide 80 MG DAILY 02/08 1138 AC 03/21 PO 1159 Guaifenesin 600 MG Q12 02/16 1000 AC 03/21 PO 1202 Guaifenesin/ 10 ML Q6P PRN 02/22 2130 AC 03/10 Dextromethorphan PO 2218 Insulin Aspart 0 TIDAC/HS 03/16 0800 AC 03/20 SC 1652 Omeprazole 40 MG DAILY AC 02/12 1200 AC 03/21 PO 0535 Oxycodone/ 1 TAB Q6P PRN 03/14 1630 AC 03/21 Acetaminophen PO 1152 Patient Medication 1 ED .STK-MED ONE 03/20 1406 DC Teaching ED 03/20 1407 Sodium Chloride 2 SPRAY Q4P PRN 01/31 0430 AC 02/05 CHULA 2133 Tramadol HCl 50 MG Q6P PRN 03/16 0030 AC 03/20 PO 1656 Trazodone HCl 50 MG AT BEDTIME 01/30 220 AC 03/20 PO 211 Warfarin Sodium 5 MG COUMADIN 1700 ONE 03/20 1700 DC 03/20 PO 03/20 1701 1652 Laboratory Tests 03/21 03/21 0836 0800 Chemistry Sodium (137 - 145 mmol/L) 134 L Potassium (3.5 - 5.1 mmol/L) 3.8 Chloride (98 - 107 mmol/L) 95 L Carbon Dioxide (22 - 30 mmol/L) 23 Anion Gap (5 - 16) 15 BUN (9 - 20 mg/dL) 35 H Creatinine (0.7 - 1.2 mg/dL) 5.7 *H Estimated GFR (>60 ml/min) 10 L BUN/Creatinine Ratio (7 - 25 %) 6.1 L Glucose (65 - 99 mg/dL) 146 H Calcium (8.4 - 10.2 mg/dL) 8.4 Phosphorus (2.5 - 4.5 mg/dL) 6.0 H Coagulation PT (9.4 - 12.5 SEC) 22.1 H INR (0.90 - 1.17) 2.12 H APTT (25 - 37 SEC) Cancelled 42 H Hematology CBC w Diff NO MAN DIFF REQ WBC (4.8 - 10.8 /CUMM) 8.6 RBC (4.70 - 6.10 /CUMM) 3.34 L Hgb (14.0 - 18.0 G/DL) 9.2 L Hct (42 - 52 %) 28.7 L MCV (80.0 - 94.0 FL) 86.0 MCH (27.0 - 31.0 PG) 27.5 RDW (11.5 - 14.5 %) 19.2 H Plt Count (130 - 400 /CUMM) 135 MPV (7.4 - 10.4 FL) 8.5 Gran % (42.2 - 75.2 %) 75.4 H Lymphocytes % (20.5 - 51.1 %) 12.5 L Monocytes % (1.7 - 9.3 %) 7.9 Eosinophils % (0 - 5 %) 2.6 Basophils % (0.0 - 2.0 %) 1.6 Absolute Granulocytes (1.4 - 6.5 /CUMM) 6.4 Absolute Lymphocytes (1.2 - 3.4 /CUMM) 1.1 L Absolute Monocytes (0.10 - 0.60 /CUMM) 0.7 H Absolute Eosinophils (0.0 - 0.7 /CUMM) 0.2 Absolute Basophils (0.0 - 0.2 /CUMM) 0.1 PUBS MCHC (33.0 - 37.0 G/DL) 32.0 L Plan - Continue current management - Vasculogram 03/24 - [facility] - Will dose Coumadin - Follow nephrology recommendations - Follow up with social work and case management regarding placement to [facility]
[2017-03-21 14:27] VITALS: BP 101/62
[2017-03-21 22:52] VITALS: BP 108/38
[2017-03-22 07:03] VITALS: BP 108/40
[2017-03-22 08:36] LABS: PT 18.9 SEC (9.4-12.5)
--- NOTE | 2017-03-22 10:25 | PN- Vascular Surgery ---
Surgical Brief Attending Note Brief Attending Note: S/P Left arm brach-ceph AV fistula. postop venous hypertension, left arm edema. EXAM Left arm + thrill over vein; edema to forearm A/P Left arm swelling after AV fistula. For fistulogram and possible intervention, possible ligation on monday. Please hold coumadin/warfarin in preparation for procedure/surgery.
[2017-03-22 14:53] VITALS: BP 110/60
--- NOTE | 2017-03-22 17:33 | PN- Att Addend ---
Attending Addendum Attending Brief Note 72M PMH COPD, ESRD on HD, paroxysmal atrial fibrillation on Coumadin, chronic diastolic CHF, T2DM, PVD, CAD, history of MGUS, neuropathy who was originally admitted with ischemic bowel which required resection and colostomy. Also with chronic left arm swelling since undergoing AV-fistula placement on 01/30/17. Currently patient is undergoing hemodialysis Monday per nephrology. He is awaiting for insurance paperwork to be completed so that he can be placed in a halfway. Fistulogram scheduled for 03/24. Review of systems normal. Plan - Continue current management - Vasculogram 03/24 - Will hold Coumadin per vascular recommendations. - Pastoral care and [facility] services - Follow nephrology recommendations - Follow up with social work and case management regarding placement to [facility]
[2017-03-22 22:38] VITALS: BP 108/60
[2017-03-23 07:07] VITALS: BP 102/40
--- NOTE | 2017-03-23 08:15 | PN- Nephrology ---
Assessment/Plan Assessment: 1. ESRD: HD later today 2. L arm edema: severe venous HTN post AVF --> ? L central V stenosis/occlusion due to L sided pacer - for fistulogram w possible ligation tomorrow Suggestion: as above Subjective Subjective: L arm still swollen Plan for fistulogram tomorrow noted Objective Vital Signs and I&Os Vital Signs Date Time Temp Pulse Resp B/P B/P Pulse O2 O2 Flow FiO2 Mean Ox Delivery Rate 03/23 0707 97.9 60 20 102/40 93 Room Air 03/22 2238 99.0 61 20 108/60 91 Room Air 03/22 1825 93 Room Air 03/22 1453 98.0 66 20 110/60 93 03/22 0921 94 Room Air Intake & Output 03/23 1600 03/23 0400 03/22 1600 03/22 0400 03/21 1600 03/21 0400 Intake Total 240 240 100 100 240 600 Output Total 200 100 100 450 500 Balance 240 40 0 0 -210 100 Intake, Oral 240 240 100 100 240 600 Number Bowel Movements Output, Stool 200 100 50 200 Output, Urine 100 400 300 Patient 184 lb 184 lb 190 lb Weight Weight Standing Scale Standing Scale Measurement Method Physical Exam General Appearance: well developed/nourished, no apparent distress Head: atraumatic, normal appearance Neck: normal inspection Respiratory: no respiratory distress, quiet respiration, lungs clear Cardiovascular: regular rate/rhythm Abdomen: soft, non-tender, ostomy in place Extremities: + bruit L arm AVF; arm & hand markedly edematous Neurologic/Psychiatric: awake, alert, oriented x 3 Current Medications: Current Medications Sig/Johnna Start time Last Medication Dose Route Stop Time Status Admin Acetaminophen 650 MG .STK-MED ONE 03/22 2126 DC PO 03/22 2127 Acetaminophen 650 MG Q4P PRN 01/31 1100 AC 03/22 PO 212 Albuterol Sulfate 2 PUF Q4P PRN 02/06 0800 AC 02/06 INH 1313 Albuterol Sulfate 3 ML EVERY 4 HRS/AWAKE 02/05 1600 AC 03/22 INH 2145 Allopurinol 100 MG DAILY 02/20 1818 AC 03/22 PO 1000 Calcitriol 0.25 MCG TuThSa PRN 03/04 0745 AC IV Colchicine 300 MCG QTHURS 03/09 1000 AC 03/16 PO 1232 Colchicine 300 MCG QSUN 03/05 0700 AC 03/19 PO 0615 Diclofenac Sodium 1 MAI 4 TIMES/DAY 02/05 1400 AC 03/21 TOP 1917 Epoetin Guzman 4,000 UNIT TuThSa PRN 03/04 0745 AC IV Furosemide 80 MG DAILY 02/08 1138 AC 03/22 PO 1000 Guaifenesin 600 MG Q12 02/16 1000 AC 03/22 PO 2123 Guaifenesin/ 10 ML Q6P PRN 02/22 2130 AC 03/10 Dextromethorphan PO 2218 Insulin Aspart 0 TIDAC/HS 03/16 0800 AC 03/22 SC 1700 Omeprazole 40 MG DAILY AC 02/12 1200 AC 03/23 PO 0552 Sodium Chloride 2 SPRAY Q4P PRN 01/31 0430 AC 02/05 CHULA 2133 Tramadol HCl 50 MG Q6P PRN 03/16 0030 DC 03/21 PO 191 Trazodone HCl 50 MG AT BEDTIME 01/30 2200 AC 03/22 PO 2122 Results Pertinent Lab Results: Laboratory Tests 03/22 03/21 03/21 0645 0836 0800 Chemistry Sodium (137 - 145 mmol/L) 134 L Potassium (3.5 - 5.1 mmol/L) 3.8 Chloride (98 - 107 mmol/L) 95 L Carbon Dioxide (22 - 30 mmol/L) 23 Anion Gap (5 - 16) 15 BUN (9 - 20 mg/dL) 35 H Creatinine (0.7 - 1.2 mg/dL) 5.7 *H Estimated GFR (>60 ml/min) 10 L BUN/Creatinine Ratio (7 - 25 %) 6.1 L Glucose (65 - 99 mg/dL) 146 H Calcium (8.4 - 10.2 mg/dL) 8.4 Phosphorus (2.5 - 4.5 mg/dL) 6.0 H Coagulation PT (9.4 - 12.5 SEC) 18.9 H 22.1 H INR (0.90 - 1.17) 1.81 H 2.12 H APTT (25 - 37 SEC) Cancelled 42 H Hematology CBC w Diff NO MAN DIFF REQ WBC (4.8 - 10.8 /CUMM) 8.6 RBC (4.70 - 6.10 /CUMM) 3.34 L Hgb (14.0 - 18.0 G/DL) 9.2 L Hct (42 - 52 %) 28.7 L MCV (80.0 - 94.0 FL) 86.0 MCH (27.0 - 31.0 PG) 27.5 RDW (11.5 - 14.5 %) 19.2 H Plt Count (130 - 400 /CUMM) 135 MPV (7.4 - 10.4 FL) 8.5 Gran % (42.2 - 75.2 %) 75.4 H Lymphocytes % (20.5 - 51.1 %) 12.5 L Monocytes % (1.7 - 9.3 %) 7.9 Eosinophils % (0 - 5 %) 2.6 Basophils % (0.0 - 2.0 %) 1.6 Absolute Granulocytes (1.4 - 6.5 /CUMM) 6.4 Absolute Lymphocytes (1.2 - 3.4 /CUMM) 1.1 L Absolute Monocytes (0.10 - 0.60 /CUMM) 0.7 H Absolute Eosinophils (0.0 - 0.7 /CUMM) 0.2 Absolute Basophils (0.0 - 0.2 /CUMM) 0.1 PUBS MCHC (33.0 - 37.0 G/DL) 32.0 L
--- NOTE | 2017-03-23 11:33 | PN- Att Addend ---
Attending Addendum Attending Brief Note 72M PMH COPD, ESRD on HD, paroxysmal atrial fibrillation on Coumadin, chronic diastolic CHF, T2DM, PVD, CAD, history of MGUS, neuropathy who was originally admitted with ischemic bowel which required resection and colostomy. Also with chronic left arm swelling since undergoing AV-fistula placement on 01/30/17. Currently patient is undergoing hemodialysis Monday per nephrology. He is awaiting for insurance paperwork to be completed so that he can be placed in a custodial. Hand appears less erythematous and tender today, however forearm is still edematous and tense. Patient has no other complaints. Review of systems normal. AFVSS NAD NCAT Supple RRR Mild wheezes bilaterally Soft, NTND, ostomy clean No LE edema, LUE edematous, non-tender Pulses intact A&Ox3 no focal deficits Current Medications Sig/Johnna Start time Last Medication Dose Route Stop Time Status Admin Acetaminophen 650 MG .STK-MED ONE 03/22 2126 DC PO 03/22 2127 Acetaminophen 650 MG Q4P PRN 01/31 1100 AC 03/22 PO 212 Albuterol Sulfate 2 PUF Q4P PRN 02/06 0800 AC 02/06 INH 1313 Albuterol Sulfate 3 ML EVERY 4 HRS/AWAKE 02/05 1600 AC 03/23 INH 0830 Allopurinol 100 MG DAILY 02/20 1818 AC 03/22 PO 1000 Calcitriol 0.25 MCG TuThSa PRN 03/04 0745 AC IV Colchicine 300 MCG QTHURS 03/09 1000 AC 03/16 PO 1232 Colchicine 300 MCG QSUN 03/05 0700 AC 03/19 PO 0615 Diclofenac Sodium 1 MAI 4 TIMES/DAY 02/05 1400 AC 03/21 TOP 1917 Epoetin Guzman 4,000 UNIT TuThSa PRN 03/04 0745 AC IV Furosemide 80 MG DAILY 02/08 1138 AC 03/22 PO 1000 Guaifenesin 600 MG Q12 02/16 1000 AC 03/22 PO 2123 Guaifenesin/ 10 ML Q6P PRN 02/22 2130 AC 03/10 Dextromethorphan PO 2218 Insulin Aspart 0 TIDAC/HS 03/16 0800 AC 03/23 SC 0843 Multivitamins 1 TAB DAILY 03/23 1000 AC PO Omeprazole 40 MG DAILY AC 02/12 1200 AC 03/23 PO 0552 Sodium Chloride 2 SPRAY Q4P PRN 01/31 0430 AC 02/05 CHULA 2133 Tramadol HCl 50 MG Q6P PRN 03/16 0030 DC 03/21 PO 191 Trazodone HCl 50 MG AT BEDTIME 01/30 2200 AC 03/22 PO 2122 Plan - Continue current management - Fistulogram tomorrow - NPO after midnight - Holding Coumadin per vascular recommmendations - Follow nephrology recommendations - Follow up with social work and case management regarding placement to [facility]
[2017-03-23 13:56] VITALS: BP 100/66
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
[2017-03-23 19:55] LABS: ABSOLUTE BASOPHIL COUNT 0 /CUMM (0.0-0.2); ABSOLUTE EOSINOPHIL COUNT 0.1 /CUMM (0.0-0.7); ABSOLUTE GRANULOCYTE CT 7.2 /CUMM (1.4-6.5); ABSOLUTE LYMPH COUNT 1.2 /CUMM (1.2-3.4); ABSOLUTE MONOCYTE COUNT 0.7 /CUMM (0.10-0.60); BASOPHIL % 0.5 % (0.0-2.0); EOSINOPHIL % 1.5 % (0-5); GRANULOCYTE % 77.6 % (42.2-75.2); HEMATOCRIT 29.4 % (42-52); MEAN CORPUSCULAR HGB 27.1 PG (27.0-31.0); MEAN CORPUSCULAR HGB CONC 31.4 G/DL (33.0-37.0); MEAN CORPUSCULAR VOLUME 86.2 FL (80.0-94.0); MEAN PLATELET VOLUME 8.2 FL (7.4-10.4); PLATELET COUNT 139 /CUMM (130-400); RBC DISTRIBUTION WIDTH 19.2 % (11.5-14.5); RED BLOOD CELL CT 3.42 /CUMM (4.70-6.10); WHITE BLOOD CELL COUNT 9.3 /CUMM (4.8-10.8)
--- NOTE | 2017-03-23 20:00 | NUR ---
PT REMAINS OFF FLOOR - AT DIALYSIS
[2017-03-23 23:07] VITALS: BP 110/60
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
[2017-03-24 06:30] VITALS: BP 90/60
--- NOTE | 2017-03-24 08:20 | PN- Psychiatry ---
Assessment/Plan Impression: Identifying Info: 72-year-old male known to this service brought in by ambulance from dialysis to the emergency department on 01/28/2017 for abdominal pain and admitted to medicine. He has been on medicine continuously since that point and is currently waiting the results for title 19 application so he can be transferred to rehabilitation. Of note, a few days ago the patient found out that his 27-year-old son had suddenly in [place]. SUBJECTIVE "Doing all right, just relaxing before surgery." Patient reports hope for the surgery today but he fears it may not go well as he has had poor luck in general related to his health in the past. "I just want to get it over with." Reports he has been thinking about his son frequently but has not heard any news r/t memorial services to be held in OR. Brief ROS Gait: Did not observe Sleep: Adequate, patient unsure of trazodone is helpful as sometimes she cannot sleep for a long period of time Appetite: Patient reports is adequate but he hasn't felt like eating much OBJECTIVE Mental Status Exam Presentation/Appearance: Cooperative with evaluation. Hospital garb. Lying in bed. Appears fatigued Orientation: x4 Sensorium: Somnolent easily aroused Eye contact: Appropriate Affect: Somewhat blunted Mood: "Alright." Depression: Denies Anxiety: Denies Thought Content: - Denies SI/HI, AH/VH, PI. States and also believes they will not kill themselves. - Endorses Hopeless/Helpless Thoughts Thought Process: Linear Associations: Appropriate Speech: Normal tone and rate Judgment: Intact Insight: Intact Cognition: Memory: Grossly intact Attention/Concentration: Grossly intact Fund of Knowledge: Adequate Abstractions: Did not assess MMSE: Did not assess ASSESSMENT 72-year-old male with a history of multiple chronic medical illnesses with frequent hospitalization as well as the recent of a son presents as depressed. He appears to be minimizing feelings of demoralization. He is able to express his feelings of loss well related to his son. He would benefit from ongoing help processing his current emotions. While he currently declines, he would also likely benefit from an antidepressant medication. 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 If possible, every effort should be made to involve the patient in memorial services for his son once more details are known. This has been discussed with nursing and social work. 2. We'll continue to engage the patient. We will continue to encourage psychiatric follow-up. Thank you for including psychiatry in this case we'll follow on an ongoing basis Subjective Subjective: as above Current Medications Sig/Johnna Start time Last Medication Dose Route Stop Time Status Admin Acetaminophen 650 MG .STK-MED ONE 03/23 2256 DC PO 03/23 2257 Acetaminophen 650 MG .STK-MED ONE 03/23 1447 DC PO 03/23 1448 Acetaminophen 650 MG Q4P PRN 01/31 1100 AC 03/23 PO 2257 Albuterol Sulfate 2 PUF Q4P PRN 02/06 0800 AC 02/06 INH 1313 Albuterol Sulfate 3 ML EVERY 4 HRS/AWAKE 02/05 1600 AC 03/24 INH 0638 Allopurinol 100 MG DAILY 02/20 1818 AC 03/22 PO 1000 Calcitriol 0.25 MCG TuThSa PRN 03/04 0745 AC IV Colchicine 300 MCG QTHURS 03/09 1000 AC 03/16 PO 1232 Colchicine 300 MCG QSUN 03/05 0700 AC 03/19 PO 0615 Diclofenac Sodium 1 MAI 4 TIMES/DAY 02/05 1400 AC 03/21 TOP 1917 Epoetin Guzman 4,000 UNIT TuThSa PRN 03/04 0745 AC IV Furosemide 80 MG DAILY 02/08 1138 AC 03/22 PO 1000 Guaifenesin 600 MG Q12 02/16 1000 AC 03/23 PO 2258 Guaifenesin/ 10 ML Q6P PRN 02/22 2130 AC 03/10 Dextromethorphan PO 2218 Insulin Aspart 0 TIDAC/HS 03/16 0800 AC 03/23 SC 1800 Multivitamins 1 TAB DAILY 03/23 1000 AC PO Omeprazole 40 MG DAILY AC 02/12 1200 AC 03/24 PO 0619 Oxycodone/ 1 TAB ONCE ONE 03/24 0100 DC 03/24 Acetaminophen PO 03/24 0101 0058 Sodium Chloride 2 SPRAY Q4P PRN 01/31 0430 AC 02/05 CHULA 2133 Trazodone HCl 50 MG AT BEDTIME 01/30 2200 AC 03/23 PO 2258 Laboratory Tests 03/23/17 1900: Anion Gap 14, Estimated GFR 10 L, BUN/Creatinine Ratio 5.6 L, Calcium 8.5, CBC w Diff NO MAN DIFF REQ, RBC 3.42 L, MCV 86.2, MCH 27.1, RDW 19.2 H, MPV 8.2, Gran % 77.6 H, Lymphocytes % 12.9 L, Monocytes % 7.5, Eosinophils % 1.5, Basophils % 0.5, Absolute Granulocytes 7.2 H, Absolute Lymphocytes 1.2, Absolute Monocytes 0.7 H, Absolute Eosinophils 0.1, Absolute Basophils 0, PUBS MCHC 31.4 L 03/22/17 0645: PT 18.9 H, INR 1.81 H 03/21/17 0836: APTT Cancelled
--- NOTE | 2017-03-24 09:32 | PN- Nephrology ---
Assessment/Plan Assessment: 1. ESRD: no HD need today 2. L arm edema: severe venous HTN post AVF --> ? L central V stenosis/occlusion due to L sided pacer; await fistulogram Suggestion: HD tomorrow Subjective Subjective: No new issues HD yesterday w/o problems L arm remains swollen - for fistulogram today Objective Vital Signs and I&Os Vital Signs Date Time Temp Pulse Resp B/P B/P Pulse O2 O2 Flow FiO2 Mean Ox Delivery Rate 03/24 0911 93 Room Air Room Air 03/24 0630 97.4 64 20 90/60 93 Room Air 03/24 0052 95 Room Air 03/24 0000 Room Air 03/23 2307 97.8 60 20 110/60 96 Room Air 03/23 1724 Room Air 03/23 1600 97 Room Air 03/23 1356 98.7 66 20 100/66 96 Intake & Output 03/24 1600 03/24 0400 03/23 1600 03/23 0400 03/22 1600 03/22 0400 Intake Total 0 840 240 100 100 Output Total 250 200 200 100 100 Balance -250 640 40 0 0 Intake, Oral 0 840 240 100 100 Number Bowel Movements Output, Stool 250 200 200 100 Output, Urine 100 Patient 181 lb 184 lb 184 lb Weight Weight Standing Scale Standing Scale Measurement Method Physical Exam General Appearance: well developed/nourished, no apparent distress Head: atraumatic, normal appearance Neck: normal inspection, R IJ HD cath Respiratory: quiet respiration, lungs clear Cardiovascular: regular rate/rhythm Abdomen: soft, non-tender, ostomy in place Extremities: + bruit Morgan AVF - arm/hand edematous w/o change Current Medications: Current Medications Sig/Johnna Start time Last Medication Dose Route Stop Time Status Admin Acetaminophen 650 MG .STK-MED ONE 03/23 225 DC PO 03/23 225 Acetaminophen 650 MG .STK-MED ONE 03/23 1447 DC PO 03/23 1448 Acetaminophen 650 MG Q4P PRN 01/31 1100 AC 03/23 PO 2257 Albuterol Sulfate 2 PUF Q4P PRN 02/06 0800 AC 02/06 INH 1313 Albuterol Sulfate 3 ML EVERY 4 HRS/AWAKE 02/05 1600 AC 03/24 INH 0857 Allopurinol 100 MG DAILY 02/20 1818 AC 03/22 PO 1000 Calcitriol 0.25 MCG TuThSa PRN 03/04 0745 AC IV Colchicine 300 MCG QTHURS 03/09 1000 AC 03/16 PO 1232 Colchicine 300 MCG QSUN 03/05 0700 AC 03/19 PO 0615 Diclofenac Sodium 1 MAI 4 TIMES/DAY 02/05 1400 AC 03/21 TOP 1917 Epoetin Guzman 4,000 UNIT TuThSa PRN 03/04 0745 AC IV Furosemide 80 MG DAILY 02/08 1138 AC 03/22 PO 1000 Guaifenesin 600 MG Q12 02/16 1000 AC 03/23 PO 2258 Guaifenesin/ 10 ML Q6P PRN 02/22 2130 AC 03/10 Dextromethorphan PO 2218 Insulin Aspart 0 TIDAC/HS 03/16 0800 AC 03/23 SC 1800 Multivitamins 1 TAB DAILY 03/23 1000 AC PO Omeprazole 40 MG DAILY AC 02/12 1200 AC 03/24 PO 0619 Oxycodone/ 1 TAB ONCE ONE 03/24 0100 DC 03/24 Acetaminophen PO 03/24 0101 0058 Sodium Chloride 2 SPRAY Q4P PRN 01/31 0430 AC 02/05 CHULA 2133 Trazodone HCl 50 MG AT BEDTIME 01/30 2200 AC 03/23 PO 2258 Results Pertinent Lab Results: Laboratory Tests 03/23 03/22 1900 0645 Chemistry Sodium (137 - 145 mmol/L) 135 L Potassium (3.5 - 5.1 mmol/L) 3.9 Chloride (98 - 107 mmol/L) 97 L Carbon Dioxide (22 - 30 mmol/L) 24 Anion Gap (5 - 16) 14 BUN (9 - 20 mg/dL) 32 H Creatinine (0.7 - 1.2 mg/dL) 5.6 *H Estimated GFR (>60 ml/min) 10 L BUN/Creatinine Ratio (7 - 25 %) 5.6 L Calcium (8.4 - 10.2 mg/dL) 8.5 Coagulation PT (9.4 - 12.5 SEC) 18.9 H INR (0.90 - 1.17) 1.81 H Hematology CBC w Diff NO MAN DIFF REQ WBC (4.8 - 10.8 /CUMM) 9.3 RBC (4.70 - 6.10 /CUMM) 3.42 L Hgb (14.0 - 18.0 G/DL) 9.2 L Hct (42 - 52 %) 29.4 L MCV (80.0 - 94.0 FL) 86.2 MCH (27.0 - 31.0 PG) 27.1 RDW (11.5 - 14.5 %) 19.2 H Plt Count (130 - 400 /CUMM) 139 MPV (7.4 - 10.4 FL) 8.2 Gran % (42.2 - 75.2 %) 77.6 H Lymphocytes % (20.5 - 51.1 %) 12.9 L Monocytes % (1.7 - 9.3 %) 7.5 Eosinophils % (0 - 5 %) 1.5 Basophils % (0.0 - 2.0 %) 0.5 Absolute Granulocytes (1.4 - 6.5 /CUMM) 7.2 H Absolute Lymphocytes (1.2 - 3.4 /CUMM) 1.2 Absolute Monocytes (0.10 - 0.60 /CUMM) 0.7 H Absolute Eosinophils (0.0 - 0.7 /CUMM) 0.1 Absolute Basophils (0.0 - 0.2 /CUMM) 0 PUBS MCHC (33.0 - 37.0 G/DL) 31.4 L
--- NOTE | 2017-03-24 10:05 | PN- Att Addend ---
Attending Addendum Attending Brief Note 72M PMH COPD, ESRD on HD, paroxysmal atrial fibrillation on Coumadin, chronic diastolic CHF, T2DM, PVD, CAD, history of MGUS, neuropathy who was originally admitted with ischemic bowel which required resection and colostomy. Also with chronic left arm swelling since undergoing AV-fistula placement on 01/30/17. Currently patient is undergoing hemodialysis Monday per nephrology. He is awaiting for insurance paperwork to be completed so that he can be placed in a retirement. Hand appears less erythematous and tender today, however forearm is still edematous and tense. Patient has no other complaints. Review of systems normal. AFVSS NAD NCAT Supple RRR Mild wheezes bilaterally Soft, NTND, ostomy clean No LE edema, LUE edematous, non-tender Pulses intact A&Ox3 no focal deficits Current Medications Sig/Johnna Start time Last Medication Dose Route Stop Time Status Admin Acetaminophen 650 MG .STK-MED ONE 03/23 2256 DC PO 03/23 2257 Acetaminophen 650 MG .STK-MED ONE 03/23 1447 DC PO 03/23 1448 Acetaminophen 650 MG Q4P PRN 01/31 1100 AC 03/23 PO 2257 Albuterol Sulfate 2 PUF Q4P PRN 02/06 0800 AC 02/06 INH 1313 Albuterol Sulfate 3 ML EVERY 4 HRS/AWAKE 02/05 1600 AC 03/24 INH 0857 Allopurinol 100 MG DAILY 02/20 1818 AC 03/22 PO 1000 Calcitriol 0.25 MCG TuThSa PRN 03/04 0745 AC IV Colchicine 300 MCG QTHURS 03/09 1000 AC 03/16 PO 1232 Colchicine 300 MCG QSUN 03/05 0700 AC 03/19 PO 0615 Diclofenac Sodium 1 MAI 4 TIMES/DAY 02/05 1400 AC 03/21 TOP 1917 Epoetin Guzman 4,000 UNIT TuThSa PRN 03/04 0745 AC IV Furosemide 80 MG DAILY 02/08 1138 AC 03/22 PO 1000 Guaifenesin 600 MG Q12 02/16 1000 AC 03/23 PO 2258 Guaifenesin/ 10 ML Q6P PRN 02/22 2130 AC 03/10 Dextromethorphan PO 2218 Insulin Aspart 0 TIDAC/HS 03/16 0800 AC 03/23 SC 1800 Multivitamins 1 TAB DAILY 03/23 1000 AC PO Omeprazole 40 MG DAILY AC 02/12 1200 AC 03/24 PO 0619 Oxycodone/ 1 TAB ONCE ONE 03/24 0100 DC 03/24 Acetaminophen PO 03/24 010 0058 Sodium Chloride 2 SPRAY Q4P PRN 01/31 0430 AC 02/05 CHULA 2133 Trazodone HCl 50 MG AT BEDTIME 01/30 2200 AC 03/23 PO 2258 Laboratory Tests 03/23 1900 Chemistry Sodium (137 - 145 mmol/L) 135 L Potassium (3.5 - 5.1 mmol/L) 3.9 Chloride (98 - 107 mmol/L) 97 L Carbon Dioxide (22 - 30 mmol/L) 24 Anion Gap (5 - 16) 14 BUN (9 - 20 mg/dL) 32 H Creatinine (0.7 - 1.2 mg/dL) 5.6 *H Estimated GFR (>60 ml/min) 10 L BUN/Creatinine Ratio (7 - 25 %) 5.6 L Calcium (8.4 - 10.2 mg/dL) 8.5 Hematology CBC w Diff NO MAN DIFF REQ WBC (4.8 - 10.8 /CUMM) 9.3 RBC (4.70 - 6.10 /CUMM) 3.42 L Hgb (14.0 - 18.0 G/DL) 9.2 L Hct (42 - 52 %) 29.4 L MCV (80.0 - 94.0 FL) 86.2 MCH (27.0 - 31.0 PG) 27.1 RDW (11.5 - 14.5 %) 19.2 H Plt Count (130 - 400 /CUMM) 139 MPV (7.4 - 10.4 FL) 8.2 Gran % (42.2 - 75.2 %) 77.6 H Lymphocytes % (20.5 - 51.1 %) 12.9 L Monocytes % (1.7 - 9.3 %) 7.5 Eosinophils % (0 - 5 %) 1.5 Basophils % (0.0 - 2.0 %) 0.5 Absolute Granulocytes (1.4 - 6.5 /CUMM) 7.2 H Absolute Lymphocytes (1.2 - 3.4 /CUMM) 1.2 Absolute Monocytes (0.10 - 0.60 /CUMM) 0.7 H Absolute Eosinophils (0.0 - 0.7 /CUMM) 0.1 Absolute Basophils (0.0 - 0.2 /CUMM) 0 PUBS MCHC (33.0 - 37.0 G/DL) 31.4 L Plan - Continue current management - Fistulogram today - Restart Coumadin post-procedure - Follow nephrology recommendations - Follow up with social work and case management regarding placement to [facility]
[2017-03-24 14:43] VITALS: BP 116/64
--- NOTE | 2017-03-24 20:33 | NUR ---
PT MEDICATED PER EMAR FOR PAIN TO HIS R FOOT. PT STATED THAT HE HAS HAD PAIN IN HIS FEET BUT NOT THIS BAD. PT ALSO STATING THE PAST FEW DAYS THE PAIN TO THE R FOOT HAS GOTTEN WORSE. +PULSES. CHRONIC DISCOLORATION NOTED TO BLE. THIS RN PUT VOLATAREN GEL ON R FOOT AND ELEVATED ON PILLOW. DR AKHTAR NOTIFIED OF PTS CONCERN & PAIN LEVEL. DR AKHTAR TO COME SEE PT. WILL CONTINUE TO MONITOR.
[2017-03-24 21:36] VITALS: BP 110/50
--- NOTE | 2017-03-24 21:44 | NUR ---
DR AKHTAR AT BEDSIDE, TO ORDER XRAY TO [facility]TE AND PREDNISONE. WILL CONTINUE TO MONITOR.
--- NOTE | 2017-03-24 21:53 | Event Note ---
Event Note Event Note: Patient complaining of foot pain, right ankle more than left. Very severe and sensitive to touch. Patient has chronic bilateral lower extremity pain but current pain is worsened in last 2 days. On Exam: right foot, mild inflammation, no s/o effusion, no demarked skin redness. limited ROM right ankle, very sensitive to touch. Suspect gouty arthritis - we will get X ray right ankle - start short course of prednisone for inflammation - less likely infection: afebrile, no significant leucocytosis
--- NOTE | 2017-03-24 22:02 | NUR ---
PT LEFT FLOOR VIA WHEELCHAIR FOR XRAY OF R ANKLE AT THIS TIME.
--- NOTE | 2017-03-24 22:30 | NUR ---
PT ARRIVED BACK TO FLOOR VIA WHEELCHAIR FROM XRAY. THIS RN TO CALL DR AKHTAR ONCE XRAY RESULTS ARE BACK. WILL CONTINUE TO MONITOR.
--- NOTE | 2017-03-24 23:52 | RADIOLOGY REPORT ---
EXAMINATION: 3 views of the right foot CLINICAL INFORMATION: Right ankle inflammation. Rule out effusion. COMPARISON: None TECHNIQUE: AP, lateral, and oblique views of the right foot. FINDINGS: No fractures. No ankle joint effusion is appreciated. The bony articulations are maintained. There is arterial atherosclerotic calcification. Surgical clips are partially imaged within the right lower extremity. Diffuse soft tissue swelling. IMPRESSION: No acute osseous findings. No ankle joint effusion is appreciated. There is soft tissue swelling diffusely.
[2017-03-25 07:08] VITALS: BP 110/42
[2017-03-25 09:19] LABS: ABSOLUTE BASOPHIL COUNT 0.1 /CUMM (0.0-0.2); ABSOLUTE EOSINOPHIL COUNT 0.1 /CUMM (0.0-0.7); ABSOLUTE GRANULOCYTE CT 11.2 /CUMM (1.4-6.5); ABSOLUTE LYMPH COUNT 0.5 /CUMM (1.2-3.4); ABSOLUTE MONOCYTE COUNT 0.2 /CUMM (0.10-0.60); BASOPHIL % 0.4 % (0.0-2.0); EOSINOPHIL % 0.6 % (0-5); GRANULOCYTE % 92.9 % (42.2-75.2); HEMATOCRIT 31.1 % (42-52); MEAN CORPUSCULAR HGB 27.3 PG (27.0-31.0); MEAN CORPUSCULAR HGB CONC 31.5 G/DL (33.0-37.0); MEAN CORPUSCULAR VOLUME 86.5 FL (80.0-94.0); MEAN PLATELET VOLUME 8.7 FL (7.4-10.4); PLATELET COUNT 145 /CUMM (130-400); RBC DISTRIBUTION WIDTH 19.2 % (11.5-14.5)
--- NOTE | 2017-03-25 11:33 | PN- Nephrology ---
Assessment/Plan Assessment: 1. ESRD: HD today w/o problem 2. L arm edema: severe venous HTN post AVF --> suspect L central V stenosis/ occlusion due to L sided pacer. Still needs fistulogram --> if vasc surg unable to do early next week then would consult IR Suggestion: next HD Subjective Subjective: Fistulogram/surg cancelled yesterday R ft pain noted Objective Vital Signs and I&Os Vital Signs Date Time Temp Pulse Resp B/P B/P Pulse O2 O2 Flow FiO2 Mean Ox Delivery Rate 03/25 0808 95 Room Air 03/25 0708 98.6 65 18 110/42 92 Room Air 03/25 0140 93 Room Air 03/25 0000 Room Air 03/24 2136 98.6 67 20 110/50 94 Room Air 03/24 1615 96 Room Air 03/24 1600 Room Air 03/24 1443 98.7 60 20 116/64 95 Intake & Output 03/25 1600 03/25 0400 03/24 1600 03/24 0400 03/23 1600 03/23 0400 Intake Total 120 800 0 840 240 Output Total 325 300 325 200 200 Balance -205 500 -325 640 40 Intake, Oral 120 800 0 840 240 Number Bowel Movements Output, Stool 100 300 325 200 200 Output, Urine 225 Patient 183 lb 181 lb 184 lb Weight Weight Standing Scale Standing Scale Standing Scale Measurement Method Physical Exam General Appearance: well developed/nourished, no apparent distress Head: atraumatic Neck: R IJ HD cath Respiratory: lungs clear Cardiovascular: regular rate/rhythm Abdomen: non-tender, ostomy in place Extremities: no change L arm edema; + bruit AVF Results Pertinent Lab Results: Laboratory Tests 03/25 03/23 0745 1900 Chemistry Sodium (137 - 145 mmol/L) 134 L 135 L Potassium (3.5 - 5.1 mmol/L) 4.3 3.9 Chloride (98 - 107 mmol/L) 98 97 L Carbon Dioxide (22 - 30 mmol/L) 24 24 Anion Gap (5 - 16) 12 14 BUN (9 - 20 mg/dL) 26 H 32 H Creatinine (0.7 - 1.2 mg/dL) 4.5 H 5.6 *H Estimated GFR (>60 ml/min) 13 L 10 L BUN/Creatinine Ratio (7 - 25 %) 5.8 L 5.6 L Glucose (65 - 99 mg/dL) 238 H Calcium (8.4 - 10.2 mg/dL) 9.0 8.5 Hematology CBC w Diff MAN DIFF ORDERED NO MAN DIFF REQ WBC (4.8 - 10.8 /CUMM) 12.0 H 9.3 RBC (4.70 - 6.10 /CUMM) 3.60 L 3.42 L Hgb (14.0 - 18.0 G/DL) 9.8 L 9.2 L Hct (42 - 52 %) 31.1 L 29.4 L MCV (80.0 - 94.0 FL) 86.5 86.2 MCH (27.0 - 31.0 PG) 27.3 27.1 RDW (11.5 - 14.5 %) 19.2 H 19.2 H Plt Count (130 - 400 /CUMM) 145 139 MPV (7.4 - 10.4 FL) 8.7 8.2 Gran % (42.2 - 75.2 %) 92.9 H 77.6 H Lymphocytes % (20.5 - 51.1 %) 4.0 L 12.9 L Monocytes % (1.7 - 9.3 %) 2.1 7.5 Eosinophils % (0 - 5 %) 0.6 1.5 Basophils % (0.0 - 2.0 %) 0.4 0.5 Absolute Granulocytes (1.4 - 6.5 /CUMM) 11.2 H 7.2 H Absolute Lymphocytes (1.2 - 3.4 /CUMM) 0.5 L 1.2 Absolute Monocytes (0.10 - 0.60 /CUMM) 0.2 0.7 H Absolute Eosinophils (0.0 - 0.7 /CUMM) 0.1 0.1 Absolute Basophils (0.0 - 0.2 /CUMM) 0.1 0 Platelet Estimate (ADEQUATE) VERIFIED BY SMEAR Polychromasia 1+ Poikilocytosis 1+ Anisocytosis 1+ Ovalocytes 1+ PUBS MCHC (33.0 - 37.0 G/DL) 31.5 L 31.4 L
--- NOTE | 2017-03-25 12:34 | PN- Att Addend ---
Attending Addendum Attending Brief Note 72 yo M PMHx of COPD, ESRD on HD, paroxysmal afib on Coumadin, chronic diastolic CHF, T2DM, PVD, CAD, history of MGUS, neuropathy who was originally admitted with ischemic bowel which required resection and colostomy. Also with chronic left arm swelling following AV-fistula placement on 01/30/17. Currently on HD TTS per nephrology. Awaiting placement, pending insurance paperwork. Patient's fistulogram was canceled yesterday , scheduled for Monday. Overnight events noted. The ankle pain is much better. ROS- right ankle pain Alert, awake, oriented 3 Heart-S1-S2 heard, RRR, no murmur Lungs-clear Abdomen-soft, nontender, nondistended, colostomy in place Extremities-left upper extremity edema and tender to palpate, bilateral lower extremity edema R>L Laboratory Tests 03/25 0745 Chemistry Sodium (137 - 145 mmol/L) 134 L Potassium (3.5 - 5.1 mmol/L) 4.3 Chloride (98 - 107 mmol/L) 98 Carbon Dioxide (22 - 30 mmol/L) 24 Anion Gap (5 - 16) 12 BUN (9 - 20 mg/dL) 26 H Creatinine (0.7 - 1.2 mg/dL) 4.5 H Estimated GFR (>60 ml/min) 13 L BUN/Creatinine Ratio (7 - 25 %) 5.8 L Glucose (65 - 99 mg/dL) 238 H Calcium (8.4 - 10.2 mg/dL) 9.0 Hematology CBC w Diff MAN DIFF ORDERED WBC (4.8 - 10.8 /CUMM) 12.0 H RBC (4.70 - 6.10 /CUMM) 3.60 L Hgb (14.0 - 18.0 G/DL) 9.8 L Hct (42 - 52 %) 31.1 L MCV (80.0 - 94.0 FL) 86.5 MCH (27.0 - 31.0 PG) 27.3 RDW (11.5 - 14.5 %) 19.2 H Plt Count (130 - 400 /CUMM) 145 MPV (7.4 - 10.4 FL) 8.7 Gran % (42.2 - 75.2 %) 92.9 H Lymphocytes % (20.5 - 51.1 %) 4.0 L Monocytes % (1.7 - 9.3 %) 2.1 Eosinophils % (0 - 5 %) 0.6 Basophils % (0.0 - 2.0 %) 0.4 Absolute Granulocytes (1.4 - 6.5 /CUMM) 11.2 H Absolute Lymphocytes (1.2 - 3.4 /CUMM) 0.5 L Absolute Monocytes (0.10 - 0.60 /CUMM) 0.2 Absolute Eosinophils (0.0 - 0.7 /CUMM) 0.1 Absolute Basophils (0.0 - 0.2 /CUMM) 0.1 Platelet Estimate (ADEQUATE) VERIFIED BY SMEAR Polychromasia 1+ Poikilocytosis 1+ Anisocytosis 1+ Ovalocytes 1+ PUBS MCHC (33.0 - 37.0 G/DL) 31.5 L Plan: 1. Continue current treatment. c/w Prednisone for gouty flare. 2. Continue hemodialysis as per renal 3. Hold Coumadin for now, until patient gets his procedure. Patient is scheduled for fistlogram on March.
[2017-03-25 15:49] VITALS: BP 100/52
[2017-03-25 22:53] VITALS: BP 140/50
[2017-03-26 06:49] VITALS: BP 102/56
--- NOTE | 2017-03-26 11:22 | PN- Att Addend ---
Attending Addendum Attending Brief Note 72 yo M PMHx of COPD, ESRD on HD, paroxysmal afib on Coumadin, chronic diastolic CHF, T2DM, PVD, CAD, history of MGUS, neuropathy who was originally admitted with ischemic bowel which required resection and colostomy. Also with chronic left arm swelling following AV-fistula placement on 01/30/17. Currently on HD TTS per nephrology. Awaiting placement, pending insurance paperwork. Patient's fistulogram was canceled on Monday03/25/17 , was informed by Dr Jackson that he has a cancellation so Mr Arias can be scheduuled for Monday03/27/17 morning. The ankle pain is resolved and he is able to walk on his feet now Vital Signs Date Time Temp Pulse Resp B/P B/P Pulse O2 O2 Flow FiO2 Mean Ox Delivery Rate 03/26 0807 95 Room Air Room Air 03/26 0649 98.0 62 22 102/56 92 Room Air 03/25 2253 97.3 59 18 140/50 95 Room Air 03/25 1650 93 Room Air 03/25 1549 98.0 60 22 100/52 96 Intake & Output 03/26 1600 03/26 0800 03/26 0000 Intake Total 450 Output Total Balance 450 Intake, Oral 450 Patient 182 lb Weight Weight Standing Scale Measurement Method Physical exam Alert, awake, oriented 3 Heart-S1-S2 heard, RRR, no murmur Lungs-clear Abdomen-soft, nontender, nondistended, colostomy in place Extremities-left upper extremity edema and tender to palpate, bilateral lower extremity edema R>L No labs done today Plan: 1. Continue current treatment. c/w Prednisone for gouty flare. 2. Continue hemodialysis as per renal 3. Hold Coumadin for now, until patient gets his procedure. Patient is scheduled for fistlogram tomorrow morning. He be nothing by mouth starting midnight.
[2017-03-26 15:46] VITALS: BP 130/56
[2017-03-26 22:39] VITALS: BP 124/60
[2017-03-27 06:51] LABS: ABSOLUTE BASOPHIL COUNT 0 /CUMM (0.0-0.2); ABSOLUTE EOSINOPHIL COUNT 0.1 /CUMM (0.0-0.7); ABSOLUTE GRANULOCYTE CT 8.3 /CUMM (1.4-6.5); ABSOLUTE LYMPH COUNT 1.1 /CUMM (1.2-3.4); ABSOLUTE MONOCYTE COUNT 0.7 /CUMM (0.10-0.60); BASOPHIL % 0 % (0.0-2.0); EOSINOPHIL % 1.2 % (0-5); GRANULOCYTE % 81.3 % (42.2-75.2); HEMATOCRIT 32.9 % (42-52); MEAN CORPUSCULAR HGB 26.8 PG (27.0-31.0); MEAN CORPUSCULAR HGB CONC 31.2 G/DL (33.0-37.0); MEAN PLATELET VOLUME 7.5 FL (7.4-10.4); PLATELET COUNT 165 /CUMM (130-400); RED BLOOD CELL CT 3.82 /CUMM (4.70-6.10); WHITE BLOOD CELL COUNT 10.2 /CUMM (4.8-10.8)
[2017-03-27 06:53] VITALS: BP 120/64
[2017-03-27 06:56] LABS: PT 12.6 SEC (9.4-12.5)
--- NOTE | 2017-03-27 09:18 | Operative Report ---
Operative/Inv Procedure Report Surgery Date: 03/27/17 Name of Procedure: Left upper extremity AV fistulogram, open ligation of left arm fistula Pre-Operative Diagnosis: Left arm swelling following AV fistula Post-Operative Diagnosis: Same Estimated Blood Loss: scant Surgeon/Structural Manager: CHRISTO EASTON MD Anesthesia: local monitored anesthesi Operative/Procedure Note Note: The patient was brought to the operating room and placed on the angiographic table in the supine position. He was prepped and draped in the usual fashion. A preoperative dose of antibiotics was administered prior to incision, and a timeout and firmed the patient and procedure. We then began by anesthetizing the region overlying the proximal fistula and antecubital fossa with 1% lidocaine, half percent Marcaine plain mixed 50-50. A micropuncture needle was used to access the fistula in an antegrade fashion and a micropuncture sheath was placed. A left upper extremity fistulogram was performed through the central venous drainage. This demonstrated a large amount of collateralization in the upper extremity with sluggish flow at the level of the cephalic arch. There was no in-line flow from the cephalic vein to the central venous drainage. This was likely due to obstruction of the central veins by pacemaker leads. There was reflux into the basilic vein which drained in the medial arm to the axillary vein, but again slow flow was noted due to central outflow obstruction due to the pacemaker leads. Given the persistent swelling of the patient's left upper extremity, and desquamation of the skin of the hand, I decided to ligate the fistula. I anesthetized the region overlying his prior incision for fistula creation, and dissected down to the level of the proximal most fistula. This was encircled and ligated and divided with silk ligatures. I irrigated the wound, and closed in 2 layers including a running 3-0 Vicryl subdermal layer, and interrupted vertical mattress nylon sutures for the skin. A Xeroform dressing was placed. Doppler was used to confirm patency of the distal brachial artery following ligation of the fistula through the open incision. The patient was transferred in stable condition to the recovery room. Findings: Central venous outflow obstruction for left upper extremity due to pacemaker leads Discharge Disposition: PACU CC: BANDAR STREET,MARCELA
--- NOTE | 2017-03-27 09:22 | NUR ---
0720 TO OR VIA STRETCHER FOR FISTULOGRAM.A&OX3.ON RA.NPO MAINTAINED.ACCU CHECK 230 NO COVERAGE GIVEN.NO C/O PIN.
--- NOTE | 2017-03-27 10:26 | Cons- Cardiology ---
General Information and HPI Consulting Request Date of Consult: 03/27/17 Requested By: BART MARQUEZ MD Reason for Consult: Defibrillator problem History of Present Illness: The patient is a 71-year-old male with history of hypertension, hyperlipidemia, end-stage renal disease, heart failure with reduced ejection fraction who is followed in the office by Dr. Crandall. He underwent a left upper extremity AV fistulogram today with open ligation of the left arm fistula. During the procedure, a magnet was placed on his biventricular pacemaker/defibrillator. Postoperatively, beeping sounds were noted to be coming from the defibrillator. Cardiac status has otherwise been stable during this admission. He has had significant left upper extremity edema, which was felt to be secondary to suction of the central veins secondary to the defibrillator leads. Because of the persistent edema of the upper extremity, the AV fistula was ligated during today's procedure. The patient reports that the ventricular pacemaker/ defibrillator has been functioning normally. He has had no recent chest pain. No palpitations. No lightheadedness or dizziness. No nausea or vomiting. No syncope. Allergies/Medications Allergies: Coded Allergies: No Known Allergies (01/25/17) Home Med List: Albuterol Sulfate 0.63 MG/3 ML VIAL.NEB 1 Vial INH/SALIMA TID PRN COPD (Reported ) Albuterol Sulfate (Proventil Hfa) 90 MCG HFA.AER.AD 2 PUF INH 4 TIMES/DAY PRN COPD (Reported) Allopurinol 100 MG TABLET 1 TAB PO DAILY GOUT Aspirin (Ecotrin*) 81 MG TABLET.DR 1 TAB PO DAILY Heart Health (Reported) Budesonide/Formoterol Fumarate (Symbicort 80-4.5 Mcg Inhaler) 80 MCG-4.5 MCG/ ACTUATION HFA.AER.AD 2 PUF INH BID copd Calcitriol 1 MCG/ML AMPUL 1 MCG IV MoWeFr WITH DIALYSIS Calcium Carbonate 500 MG CALCIUM (1,250 MG) TABLET 1 TAB PO TIDAC ESRD Colchicine 0.6 MG TABLET 300 MCG PO DAILY gout Folic Acid 1 MG TABLET 1 TAB PO DAILY SUPPLEMENT (Reported) Furosemide (Lasix) 80 MG TABLET 1 TAB PO DAILY CHF (Reported) Guaifenesin (Mucinex) 600 MG TAB.ER.12H 1 TAB PO BID MUCOLYTIC Insulin Lispro (Humalog) 100 UNIT/ML VIAL diabetes (Reported) Blood sugar Insulin dose < 80mg/dl No dose 80-150 mg/dl no dose 151-200mg/dl 1 unit 201-250mg/dl 2 units 251-300mg/dl 3 units 301-350mg/dl 4 units 351-400mg/dl 6 units 351-400mg/dl 6 units > 400 8 call PLEASE RESUME ON MonDec 151-200 0 Isosorbide Mononitrate (Isosorbide Mononitrate ER) 60 MG TAB.ER.24H 1 TAB PO DAILY HTN (Reported) Isosorbide Mononitrate (Isosorbide Mononitrate ER) 30 MG TAB.ER.24H 10 MG PO DAILY HEART . Loratadine (Claritin) 10 MG TABLET 1 TAB PO DAILY NASAL CONGESTION Metoprolol Tartrate (Lopressor) 50 MG TABLET 1 TAB PO BID HTN (Reported) Metoprolol Tartrate (Lopressor) 50 MG TABLET 12.5 MG PO BID HEART . Mometasone Furoate (Nasonex) 50 MCG SPRAY.PUMP 2 SPRAY NASB DAILY NASAL CONGESTION Omeprazole 20 MG CAPSULE.DR 1 CAP PO DAILY GERD (Reported) Simvastatin (Zocor*) 20 MG TABLET 1 TAB PO QPM Cholesterol (Reported) Warfarin Sodium (Coumadin) 5 MG TABLET 0.5-1 TAB PO AD BLOOD THINNER ( Reported) please dose Coumadin as per INR. Current Medications: Current Medications Sig/Johnna Start time Last Medication Dose Route Stop Time Status Admin Acetaminophen 650 MG .STK-MED ONE 03/26 1728 DC PO 03/26 1729 Acetaminophen 650 MG Q4P PRN 01/31 1100 AC 03/26 PO 1735 Albuterol Sulfate 2 PUF Q4P PRN 02/06 0800 AC 03/26 INH 1734 Albuterol Sulfate 3 ML EVERY 4 HRS/AWAKE 02/05 1600 AC 03/26 INH 2009 Allopurinol 100 MG DAILY 02/20 1818 AC 03/26 PO 0730 Calcitriol 0.25 MCG TuThSa PRN 03/04 0745 AC IV Colchicine 300 MCG QTHURS 03/09 1000 AC 03/16 PO 1232 Colchicine 300 MCG QSUN 03/05 0700 AC 03/26 PO 0704 Diclofenac Sodium 1 MAI 4 TIMES/DAY 02/05 1400 AC 03/24 TOP 2030 Epoetin Guzman 4,000 UNIT TuThSa PRN 03/04 0745 AC IV Furosemide 80 MG DAILY 02/08 1138 AC 03/26 PO 0730 Guaifenesin 600 MG Q12 02/16 1000 AC 03/26 PO 213 Guaifenesin/ 10 ML Q6P PRN 02/22 2130 AC 03/10 Dextromethorphan PO 2218 Insulin Aspart 0 TIDAC/HS 03/16 0800 AC 03/26 SC 213 Multivitamins 1 TAB DAILY 03/23 1000 AC 03/26 PO 0729 Nystatin 1 MAI BID 03/26 1507 AC TOP Omeprazole 40 MG DAILY AC 02/12 1200 AC 03/27 PO 0548 Prednisone 40 MG DAILY 03/25 1000 AC 03/26 PO 03/29 1001 0729 Sodium Chloride 2 SPRAY Q4P PRN 01/31 0430 AC 02/05 CHULA 2132 Trazodone HCl 50 MG AT BEDTIME 01/30 2200 AC 03/26 PO 2131 Review of Systems Review of Systems: No rash. No tremor. No melena. No diaphoresis. All other systems were reviewed, and were noted to be negative. Past History Travel History Traveled to [place] past 21 day No Medical History Blood Transfusion Hx: Yes Neurological: NONE Cardiovascular: AFIB, CAD, cardiomyopathy, hypertension, hyperlipidemia, systolic CHF, PACEMAKER/DEFIBRILLATOR Respiratory: COPD, obstructive sleep apnea Gastrointestinal: GERD, he had a bleeding polyp in November of this year coupled with a nonbleeding angiodysplasia Renal: ESRD on HD Musculoskeletal: gout Psychiatric: NONE Endocrine: diabetes Blood Disorders: anemia, MGUS Cancer(s): NONE INSTRUMENT STERILIZER/Reproductive: NONE Surgical History Surgical History: CABG, cholecystectomy, PACEMAKER,( AICD) Family History Relations & Conditions If Any: MOTHER (Lung cancer). Psychosocial History Where Do You Live? Home Who Do You Live With? self Services at Home: None Primary Language: Luxembourgish Smoking Status: Former Smoker ETOH Use: denies use Illicit Drug Use: denies illicit drug use Functional Ability ADLs Independent: dressing, eating, toileting, bathing. Ambulation: independent IADLs Independent: shopping, housework, finances, food prep, telephone, transportation , medication admin. ECHO Results (as available) Report: CONCLUSIONS 1. Fibrocalcific degeneration is present in the aortic valve with evidence of moderate valvular stenosis and an estimated JUJU of 1.1 cm2 2. MItral leaflet thickening is present with mild to moderate mitral insufficiency and mild to moderate left atrial enlargement. 3. A small pericardial effusion is present which is hemodynamically insignificant. 4. The left ventricular chamber size is normal with borderline to mild LVH and an ejection fraction of 50-55%. Mild localized inferoposterior hypokinesia is present. 5. Mild to moderate tricuspid insufficiency is present with mild right heart chamber enlargement and moderate pulmonary hypertension with an estimated RV systolic pressure of 52 mmHg. 6. Pacemaker wires are noted in the right heart chambers. Exam & Diagnostic Data Vital Signs and I&O Vital Signs Date Time Temp Pulse Resp B/P B/P Pulse O2 O2 Flow FiO2 Mean Ox Delivery Rate 03/27 0653 97.9 60 18 120/64 96 Room Air 03/27 0000 95 Room Air 03/26 2239 98.3 66 20 124/60 95 Room Air 03/26 1605 96 Room Air 03/26 1546 98.1 62 20 130/56 97 Intake & Output 03/27 1600 03/27 0800 03/27 0000 03/26 1600 03/26 0800 03/26 0000 Intake Total 0 450 100 450 Output Total 10 500 100 0 Balance -10 -50 -100 100 450 Intake, IV 0 0 Intake, Oral 0 450 100 450 Output, Stool 0 400 100 0 Output, Urine 10 100 0 Patient 188 lb 182 lb Weight Weight Standing Scale Standing Scale Measurement Method Physical Exam: Gen: The patient is in no acute distress HEENT: Normal nose, ears, and oropharynx. Pupils equal bilaterally. Conjunctiva normal. Neck: Supple with no JVD, no masses, and no thyromegaly Lungs: Clear to auscultation with normal respiratory effort Heart: RRR, S1, S2, 1/6 systolic murmur at the apex. Left upper extremity edema peripheral edema, 1+ pulses in the lower extremities bilaterally Abdomen: Soft, nontender, no masses. No hepatomegaly. No splenomegaly Extremities: No clubbing or cyanosis. Normal muscle strength in the upper and lower extremities Skin: Normal skin turgor with no skin ulcers or lesions noted. Neuro: Cranial nerves intact. Sensation intact Psych: Alert and oriented 3 with appropriate affect Labs/Satnam Results: Laboratory Tests 03/27 0625 Chemistry Sodium (137 - 145 mmol/L) 136 L Potassium (3.5 - 5.1 mmol/L) 4.0 Chloride (98 - 107 mmol/L) 96 L Carbon Dioxide (22 - 30 mmol/L) 22 Anion Gap (5 - 16) 17 H BUN (9 - 20 mg/dL) 46 H Creatinine (0.7 - 1.2 mg/dL) 4.8 H Estimated GFR (>60 ml/min) 12 L BUN/Creatinine Ratio (7 - 25 %) 9.6 Coagulation PT (9.4 - 12.5 SEC) 12.6 H INR (0.90 - 1.17) 1.20 H Hematology CBC w Diff NO MAN DIFF REQ WBC (4.8 - 10.8 /CUMM) 10.2 RBC (4.70 - 6.10 /CUMM) 3.82 L Hgb (14.0 - 18.0 G/DL) 10.3 L Hct (42 - 52 %) 32.9 L MCV (80.0 - 94.0 FL) 86.0 MCH (27.0 - 31.0 PG) 26.8 L RDW (11.5 - 14.5 %) 19.0 H Plt Count (130 - 400 /CUMM) 165 MPV (7.4 - 10.4 FL) 7.5 Gran % (42.2 - 75.2 %) 81.3 H Lymphocytes % (20.5 - 51.1 %) 11.0 L Monocytes % (1.7 - 9.3 %) 6.5 Eosinophils % (0 - 5 %) 1.2 Basophils % (0.0 - 2.0 %) 0 L Absolute Granulocytes (1.4 - 6.5 /CUMM) 8.3 H Absolute Lymphocytes (1.2 - 3.4 /CUMM) 1.1 L Absolute Monocytes (0.10 - 0.60 /CUMM) 0.7 H Absolute Eosinophils (0.0 - 0.7 /CUMM) 0.1 Absolute Basophils (0.0 - 0.2 /CUMM) 0 PUBS MCHC (33.0 - 37.0 G/DL) 31.2 L Diagnostic Data EKG Results EKG tracing from 01/28/17 is independently reviewed, and reveals ventricular paced rhythm CXR Results Persistent stable mild enlargement of the cardiomediastinal silhouette and mild pulmonary venous hypertension. Possible small left-sided pleural effusion, new since prior study. No other significant change. No definite radiographic evidence of pneumonia. Other Results Left upper extremity venous doppler study: 1. Unremarkable triplex scan without evidence of deep venous thrombosis involving the left upper extremity. 2. There is a left antecubital fossa subcutaneous reticulated collection, likely an organizing hematoma. Dimensions are as above. Echocardiogram 10/05/16: 1. Fibrocalcific degeneration is present in the aortic valve with evidence of moderate valvular stenosis and an estimated JUJU of 1.1 cm2 2. MItral leaflet thickening is present with mild to moderate mitral insufficiency and mild to moderate left atrial enlargement. 3. A small pericardial effusion is present which is hemodynamically insignificant. 4. The left ventricular chamber size is normal with borderline to mild LVH and an ejection fraction of 50-55%. Mild localized inferoposterior hypokinesia is present. 5. Mild to moderate tricuspid insufficiency is present with mild right heart chamber enlargement and moderate pulmonary hypertension with an estimated RV systolic pressure of 52 mmHg. 6. Pacemaker wires are noted in the right heart chambers. Assessment/Plan Assessment/Plan Assessment: * End-stage renal disease * Chronic HFrEF * Implanted biventricular pacemaker/defibrillator, noted to be beeping after magnet placement during procedure. This raises concern that the defibrillator function may have been deactivated by magnet placement. * Coronary artery disease, stable Plan: * I will arrange for the defibrillator/pacemaker to be interrogated by a [email or web address] personnel representative, and reprogrammed as necessary * The patient should be monitored on telemetry until the defibrillator can be interrogated, and confirmed to be activated * 12 lead EKG Consult Acknowledgment - Thank you for your consult request.
--- NOTE | 2017-03-27 10:41 | RADIOLOGY REPORT ---
EXAMINATION: C-ARM FLUOROSCOPY ASSISTANCE LEFT ARM FISTULOGRAM IN THE OR CLINICAL INFORMATION: 72-year-old male for left arm fistulogram. COMPARISON: None TECHNIQUE: 5 sequential images of the left arm were obtained at the time of the study. Fluoroscopy time: 1.25 minutes. FINDINGS: The fistulogram was performed by Dr. Luis Jackson. Full procedural detail will be dictated by him. IMPRESSION: 5 sequential seen images were obtained at the time of the procedure. Full procedural details will be dictated by Dr. Luis Jackson.
--- NOTE | 2017-03-27 11:07 | NUR ---
PT WAS OFF UNIT IN OR WHEN THIS RN STARTED SHIFT. UNABLE TO ASSESS PT. NOTIFIED BY 2NB WHIRLEY OPERATOR THAT PACU CALLED AND WOULD LIKE PT TRANSFERRED TO TELEMETRY. PT'S PACER "FIRED MULTIPLE TIMES" WHEN IN OR. SPOKE WITH DR. MARQUEZ WHO WILL CONTACT PACU. THINKS PT SHOULD BE BACK ON TEACHING SERVICE AND WILL ASSESS. PT TO GO TO 171. BELONGINGS PACKED AND WILL BE BROUGHT DOWN WITH MEDICATIONS. WILL CALL REPORT TO TELEMETRY AT THIS TIME.
--- NOTE | 2017-03-27 12:00 | NUR ---
PATIENT ARRIVED ON FLOOR FROM PACU. PATIENT S/P REVISION OF LEFT AV FISTULA. PATIENT ARRIVED VIA STRETCHER. A+O X3. VSS. TELE MONITOR APPLIED. PACE RHYTHMN 60'S NOTED. PACER TO LEFT CHEST WALL. LEFT ARM SWOLLEN. AV FISTULA SITE DSG WITH SEROUSANGUINOUS DRAINAGE. + BRUIT AND THRILL. LEFT HAND SWOLLEN AND RED. ELEVATED ON PILLOW. ALYCE LUNGS DIMINISHED BUT CLEAR. WILL FOLLOW PLAN OF CARE.
[2017-03-27 12:14] VITALS: BP 134/68
--- NOTE | 2017-03-27 15:30 | PN- Att Addend ---
Attending Addendum Attending Brief Note 72M PMH COPD, ESRD on HD, paroxysmal atrial fibrillation on Coumadin, chronic diastolic CHF, T2DM, PVD, CAD, history of MGUS, neuropathy who was originally admitted with ischemic bowel which required resection and colostomy. Also with chronic left arm swelling since undergoing AV-fistula placement on 01/30/17. Currently patient is undergoing hemodialysis Monday per nephrology. He is awaiting for insurance paperwork to be completed so that he can be placed in a retirement. Underwent fistulogram today, had an issue with PPM/AICD after magnet was placed on it during procedure, now beeping post-procedure. Patient is asymptomatic. Review of systems normal. AFVSS NAD NCAT Supple RRR Mild wheezes bilaterally Soft, NTND, ostomy clean No LE edema, LUE edematous, non-tender Pulses intact A&Ox3 no focal deficits Plan - Continue current management - Fistulogram complete, will follow vascular recommmendations - Transfer to telemetry for monitoring - Follow cardiology recommendations - Restart Coumadin post-procedure - Follow nephrology recommendations - Follow up with social work and case management regarding placement to [facility]
--- NOTE | 2017-03-27 16:09 | PN- Vascular Surgery ---
Subjective Subjective: Post op check Pt is awake, alert Frustrated for numerous reasons including needing to have his fistula ligated and now the dressing is wet. He is also frustrated that apparantly his defibrillator was beeping during the procedure and he hasn't had any follow up from that situation and he is concerned. He denies any pain at the surgical site. Objective Vital Signs and I&Os Vital Signs Date Time Temp Pulse Resp B/P B/P Pulse O2 O2 Flow FiO2 Mean Ox Delivery Rate 03/27 1243 95 Room Air Room Air 03/27 1214 97.8 63 18 134/68 96 Room Air 03/27 0653 97.9 60 18 120/64 96 Room Air 03/27 0000 95 Room Air 03/26 2239 98.3 66 20 124/60 95 Room Air Intake & Output 03/27 1600 03/27 0800 03/27 0000 03/26 1600 03/26 0800 03/26 0000 Intake Total 240 0 450 100 450 Output Total 100 10 500 100 0 Balance 140 -10 -50 -100 100 450 Intake, IV 0 0 Intake, Oral 240 0 450 100 450 Output, Stool 100 0 400 100 0 Output, Urine 10 100 0 Patient 188 lb 182 lb Weight Weight Standing Scale Standing Scale Measurement Method Physical Exam: LUE lightly wet with a very light tinged serosanguinous fluid. Dressing changed Sutures in place, no erythema or hematoma. Area is soft. There is no blood or fluid that is able to be expressed. There is a very slow leak of lightly blood tinged serosang fluid from the wound. The patients arm is very edematous 2+, which he states it has been since the procedure in january. Positive sensate, hand is warm, no palpable pulses secondary to edema Dressing changed Assessment/Plan Assessment/Plan 72yo male s/p AV fistula ligation. Oozing from surgical site is edema from the LUE. Keep arm elevated, change dressing as needed. Discussed the defibrillator situation at length with anesthesia. Dr Gomez is aware and is contacting [employer] for interrogation. At patients request, a message was left with his ep MD - Dr Genaro Loo at [facility] to make him aware of the situation. This was all discussed with the patient Head RN is also aware and will be addressing pt complaints
[2017-03-27 16:20] VITALS: BP 126/62
[2017-03-28 00:24] VITALS: BP 138/59
[2017-03-28 08:00] VITALS: BP 164/62
--- NOTE | 2017-03-28 09:13 | PN- Nephrology ---
Assessment/Plan Assessment: 1. ESRD: HD later today 2. 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 discharge plan Subjective Subjective: Fistulogram results yesterday noted --> occluded central V prob related to pacer wires AVF ligated & wound dressed this morning Now eating - no further issues w AICD/pacer No CP or SOB Objective Vital Signs and I&Os Vital Signs Date Time Temp Pulse Resp B/P B/P Pulse O2 O2 Flow FiO2 Mean Ox Delivery Rate 03/28 0800 96.5 62 20 164/62 100 Nasal 8L Cannula 03/28 0751 99 Room Air Room Air 03/28 0024 97.5 59 18 138/59 95 03/27 1620 98.4 59 18 126/62 95 03/27 1610 96 Room Air 03/27 1243 95 Room Air Room Air 03/27 1214 97.8 63 18 134/68 96 Room Air Intake & Output 03/28 1600 03/28 0400 03/27 1600 03/27 0400 03/26 1600 03/26 0400 Intake Total 100 200 240 450 100 450 Output Total 110 500 100 Balance 100 200 130 -50 0 450 Intake, IV 0 0 Intake, Oral 100 200 240 450 100 450 Output, Stool 100 400 100 Output, Urine 10 100 0 Patient 188 lb 188 lb 182 lb Weight Weight Chair scale Standing Scale Standing Scale Measurement Method Physical Exam General Appearance: no apparent distress, alert Head: atraumatic, normal appearance Ears, Nose, Throat: normal ENT inspection Neck: R IJ HD cath Respiratory: quiet respiration, lungs clear Cardiovascular: regular rate/rhythm Abdomen: ostomy Extremities: pedal edema (1-2+), L arm & hand less edematous L wound dressing dry Neurologic/Psychiatric: awake, alert Current Medications: Current Medications Sig/Johnna Start time Last Medication Dose Route Stop Time Status Admin Acetaminophen 650 MG Q4P PRN 01/31 1100 AC 03/26 PO 1735 Albuterol Sulfate 2 PUF Q4P PRN 02/06 0800 AC 03/26 INH 1734 Albuterol Sulfate 3 ML EVERY 4 HRS/AWAKE 02/05 1600 AC 03/28 INH 0744 Allopurinol 100 MG DAILY 02/20 1818 AC 03/28 PO 0900 Calcitriol 0.25 MCG TuThSa PRN 03/04 0745 AC IV Colchicine 300 MCG QTHURS 03/09 1000 AC 03/16 PO 1232 Colchicine 300 MCG QSUN 03/05 0700 AC 03/26 PO 0704 Diclofenac Sodium 1 MAI 4 TIMES/DAY 02/05 1400 AC 03/27 TOP 2200 Epoetin Guzman 4,000 UNIT TuThSa PRN 03/04 0745 AC IV Furosemide 80 MG DAILY 02/08 1138 AC 03/28 PO 0857 Guaifenesin 600 MG Q12 02/16 1000 AC 03/28 PO 0857 Guaifenesin/ 10 ML Q6P PRN 02/22 2130 AC 03/10 Dextromethorphan PO 2218 Insulin Aspart 0 TIDAC/HS 03/16 0800 AC 03/28 SC 0855 Multivitamins 1 TAB DAILY 03/23 1000 AC 03/28 PO 0858 Nystatin 1 MAI BID 03/26 1507 AC 03/28 TOP 0858 Omeprazole 40 MG DAILY AC 02/12 1200 AC 03/28 PO 0808 Prednisone 40 MG DAILY 03/25 1000 AC 03/28 PO 03/29 1001 0859 Sodium Chloride 2 SPRAY Q4P PRN 01/31 0430 AC 02/05 CHULA 2133 Trazodone HCl 50 MG AT BEDTIME 01/30 2200 AC 03/27 PO 2256 Results Pertinent Lab Results: Laboratory Tests 03/27 0625 Chemistry Sodium (137 - 145 mmol/L) 136 L Potassium (3.5 - 5.1 mmol/L) 4.0 Chloride (98 - 107 mmol/L) 96 L Carbon Dioxide (22 - 30 mmol/L) 22 Anion Gap (5 - 16) 17 H BUN (9 - 20 mg/dL) 46 H Creatinine (0.7 - 1.2 mg/dL) 4.8 H Estimated GFR (>60 ml/min) 12 L BUN/Creatinine Ratio (7 - 25 %) 9.6 Magnesium (1.6 - 2.3 mg/dL) 1.9 Coagulation PT (9.4 - 12.5 SEC) 12.6 H INR (0.90 - 1.17) 1.20 H Hematology CBC w Diff NO MAN DIFF REQ WBC (4.8 - 10.8 /CUMM) 10.2 RBC (4.70 - 6.10 /CUMM) 3.82 L Hgb (14.0 - 18.0 G/DL) 10.3 L Hct (42 - 52 %) 32.9 L MCV (80.0 - 94.0 FL) 86.0 MCH (27.0 - 31.0 PG) 26.8 L RDW (11.5 - 14.5 %) 19.0 H Plt Count (130 - 400 /CUMM) 165 MPV (7.4 - 10.4 FL) 7.5 Gran % (42.2 - 75.2 %) 81.3 H Lymphocytes % (20.5 - 51.1 %) 11.0 L Monocytes % (1.7 - 9.3 %) 6.5 Eosinophils % (0 - 5 %) 1.2 Basophils % (0.0 - 2.0 %) 0 L Absolute Granulocytes (1.4 - 6.5 /CUMM) 8.3 H Absolute Lymphocytes (1.2 - 3.4 /CUMM) 1.1 L Absolute Monocytes (0.10 - 0.60 /CUMM) 0.7 H Absolute Eosinophils (0.0 - 0.7 /CUMM) 0.1 Absolute Basophils (0.0 - 0.2 /CUMM) 0 PUBS MCHC (33.0 - 37.0 G/DL) 31.2 L
--- NOTE | 2017-03-28 10:12 | PN- Vascular Surgery ---
Subjective Subjective: Multiple complaints. He reports he has been elevating his arm consistently, as instructed. Pacemaker interrogated post-procedure yesterday. Objective Vital Signs and I&Os Vital Signs Date Time Temp Pulse Resp B/P B/P Pulse O2 O2 Flow FiO2 Mean Ox Delivery Rate 03/28 0800 96.5 62 20 164/62 100 Nasal 8L Cannula 03/28 0751 99 Room Air Room Air 03/28 0024 97.5 59 18 138/59 95 03/27 1620 98.4 59 18 126/62 95 03/27 1610 96 Room Air 03/27 1243 95 Room Air Room Air 03/27 1214 97.8 63 18 134/68 96 Room Air Intake & Output 03/28 1600 03/28 0800 03/28 0000 03/27 1600 03/27 0800 03/27 0000 Intake Total 100 200 240 0 450 Output Total 100 10 500 Balance 100 200 140 -10 -50 Intake, IV 0 Intake, Oral 100 200 240 0 450 Output, Stool 100 0 400 Output, Urine 10 100 Patient 188 lb 188 lb Weight Weight Chair scale Standing Scale Measurement Method Physical Exam: dressing dry (changed) Sutures in place, no erythema or hematoma. Area is soft There is no blood or fluid that is able to be expressed The patients arm is very edematous 2+, which he states it has been since the procedure in january. Grossly sensate and hand is warm Assessment/Plan Assessment/Plan 72yo male POD#1 s/p AV fistula ligation dressing dry / changed with dry guaze. change left arm dressing daily with dry guaze continue left arm elevation will need interrupted sutures removed in about 10 days future vascular access will need to be determined in outpatient setting call to schedule f/u appointment with in 7-10 days
--- NOTE | 2017-03-28 10:22 | PN- Cardiology ---
Subjective Subjective: Feeling well. No chest pain. No palpitations. No shortness of breath. No diaphoresis. Defibrillator was interrogated and was found to be functioning normally. The beeping sound was because the ICD was trying to connect to his home monitoring equipment. Objective Vital Signs and I&Os Vital Signs Date Time Temp Pulse Resp B/P B/P Pulse O2 O2 Flow FiO2 Mean Ox Delivery Rate 03/28 0800 96.5 62 20 164/62 100 Nasal 8L Cannula 03/28 0751 99 Room Air Room Air 03/28 0024 97.5 59 18 138/59 95 03/27 1620 98.4 59 18 126/62 95 03/27 1610 96 Room Air 03/27 1243 95 Room Air Room Air 03/27 1214 97.8 63 18 134/68 96 Room Air Intake & Output 03/28 1600 03/28 0800 03/28 0000 03/27 1600 03/27 0800 03/27 0000 Intake Total 100 200 240 0 450 Output Total 100 10 500 Balance 100 200 140 -10 -50 Intake, IV 0 Intake, Oral 100 200 240 0 450 Output, Stool 100 0 400 Output, Urine 10 100 Patient 188 lb 188 lb Weight Weight Chair scale Standing Scale Measurement Method Physical Exam: Gen: The patient is in no acute distress HEENT: Normal nose, ears, and oropharynx. Pupils equal bilaterally. Conjunctiva normal. Neck: Supple with no JVD, no masses, and no thyromegaly Lungs: Clear to auscultation with normal respiratory effort Heart: RRR, S1, S2, 1/6 systolic murmur at the apex. Left upper extremity edema peripheral edema, 1+ pulses in the lower extremities bilaterally Abdomen: Soft, nontender, no masses. No hepatomegaly. No splenomegaly Extremities: No clubbing or cyanosis. Normal muscle strength in the upper and lower extremities Skin: Normal skin turgor with no skin ulcers or lesions noted. Neuro: Cranial nerves intact. Sensation intact Current Medications: Current Medications Sig/Johnna Start time Last Medication Dose Route Stop Time Status Admin Acetaminophen 650 MG Q4P PRN 01/31 1100 AC 03/26 PO 1735 Albuterol Sulfate 2 PUF Q4P PRN 02/06 0800 AC 03/26 INH 1734 Albuterol Sulfate 3 ML EVERY 4 HRS/AWAKE 02/05 1600 AC 03/28 INH 0744 Allopurinol 100 MG DAILY 02/20 1818 AC 03/28 PO 0900 Calcitriol 0.25 MCG TuThSa PRN 03/04 0745 AC IV Colchicine 300 MCG QTHURS 03/09 1000 AC 03/16 PO 1232 Colchicine 300 MCG QSUN 03/05 0700 AC 03/26 PO 0704 Diclofenac Sodium 1 MAI 4 TIMES/DAY 02/05 1400 AC 03/27 TOP 2200 Epoetin Guzman 4,000 UNIT TuThSa PRN 03/04 0745 AC IV Furosemide 80 MG DAILY 02/08 1138 AC 03/28 PO 0857 Guaifenesin 600 MG Q12 02/16 1000 AC 03/28 PO 0857 Guaifenesin/ 10 ML Q6P PRN 02/22 2130 AC 03/10 Dextromethorphan PO 2218 Insulin Aspart 0 TIDAC/HS 03/16 0800 AC 03/28 SC 0855 Multivitamins 1 TAB DAILY 03/23 1000 AC 03/28 PO 0858 Nystatin 1 MAI BID 03/26 1507 AC 03/28 TOP 0858 Omeprazole 40 MG DAILY AC 02/12 1200 AC 03/28 PO 0808 Prednisone 40 MG DAILY 03/25 1000 AC 03/28 PO 03/29 1001 0859 Sodium Chloride 2 SPRAY Q4P PRN 01/31 0430 AC 02/05 CHULA 2133 Trazodone HCl 50 MG AT BEDTIME 01/30 2200 AC 03/27 PO 2256 Results Last 48 Hrs of Labs/Mics: Laboratory Tests 03/27/17 0625: Anion Gap 17 H, Estimated GFR 12 L, BUN/Creatinine Ratio 9.6, Magnesium 1.9, PT 12.6 H, INR 1.20 H, CBC w Diff NO MAN DIFF REQ, RBC 3.82 L, MCV 86.0, MCH 26.8 L, RDW 19.0 H, MPV 7.5, Gran % 81.3 H, Lymphocytes % 11.0 L, Monocytes % 6.5, Eosinophils % 1.2, Basophils % 0 L, Absolute Granulocytes 8.3 H, Absolute Lymphocytes 1.1 L, Absolute Monocytes 0.7 H, Absolute Eosinophils 0.1 , Absolute Basophils 0, PUBS MCHC 31.2 L Assessment/Plan Assessment/Plan Assessment: * End-stage renal disease * Chronic HFrEF * Implanted biventricular pacemaker/defibrillator, interrogated and found to be functioning normally. * Coronary artery disease, stable Plan: * Would discontinue telemetry, and transfer back to general medical floor * Continue current cardiac medications. Continue telemetry? No
[2017-03-28 11:41] LABS: ABSOLUTE BASOPHIL COUNT 0 /CUMM (0.0-0.2); ABSOLUTE EOSINOPHIL COUNT 0 /CUMM (0.0-0.7); ABSOLUTE GRANULOCYTE CT 8.3 /CUMM (1.4-6.5); ABSOLUTE LYMPH COUNT 0.6 /CUMM (1.2-3.4); ABSOLUTE MONOCYTE COUNT 0.4 /CUMM (0.10-0.60); BASOPHIL % 0.1 % (0.0-2.0); EOSINOPHIL % 0 % (0-5); HEMATOCRIT 31.1 % (42-52); MEAN CORPUSCULAR HGB 26.9 PG (27.0-31.0); MEAN CORPUSCULAR HGB CONC 31.6 G/DL (33.0-37.0); MEAN CORPUSCULAR VOLUME 84.9 FL (80.0-94.0); MEAN PLATELET VOLUME 8.1 FL (7.4-10.4); PLATELET COUNT 147 /CUMM (130-400); RED BLOOD CELL CT 3.67 /CUMM (4.70-6.10); WHITE BLOOD CELL COUNT 9.3 /CUMM (4.8-10.8)
[2017-03-28 12:10] LABS: GRANULOCYTE % 88.6 % (42.2-75.2)
[2017-03-28 15:00] VITALS: BP 116/58
--- NOTE | 2017-03-28 15:26 | NUR ---
BACK FROM HD, VSS, DENIES PAIN, DSG TO LEFT ARM CD&I, EATING LUNCH AND TOLERATING WELL, WILL CONT TO MONITOR.
--- NOTE | 2017-03-28 20:50 | PN- Att Addend ---
Attending Addendum Attending Brief Note 72M PMH COPD, ESRD on HD, paroxysmal atrial fibrillation on Coumadin, chronic diastolic CHF, T2DM, PVD, CAD, history of MGUS, neuropathy who was originally admitted with ischemic bowel which required resection and colostomy. Also with chronic left arm swelling since undergoing AV-fistula placement on 01/30/17. Currently patient is undergoing hemodialysis Monday per nephrology. He is awaiting for insurance paperwork to be completed so that he can be placed in a [facility]. Underwent fistulogram today, had an issue with PPM/AICD after magnet was placed on it during procedure, now beeping post-procedure. Patient is asymptomatic. Review of systems normal. AFVSS NAD NCAT Supple RRR Mild wheezes bilaterally Soft, NTND, ostomy clean No LE edema, LUE edematous, non-tender Pulses intact A&Ox3 no focal deficits Plan - Continue current management - Fistulogram complete, will follow vascular recommmendations - Interrogation complete, will transfer back to general medicine - Follow cardiology recommendations - Restart Coumadin post-procedure - Follow nephrology recommendations - Follow up with social work and case management regarding placement to [facility]
[2017-03-29 00:09] VITALS: BP 110/64
[2017-03-29 08:00] VITALS: BP 13/62; BP 130/62
--- NOTE | 2017-03-29 08:30 | PN- Nephrology ---
Assessment/Plan Assessment: 1. ESRD: no HD need today 2. L arm edema: much improved Suggestion: HD tomorrow Await insurance for d/c to [facility] Subjective Subjective: L arm & edema much improved Still c/o weeping from anrcubital surg wound No CP oir SOB Tolerated HD yesterday w/o problem Objective Vital Signs and I&Os Vital Signs Date Time Temp Pulse Resp B/P B/P Pulse O2 O2 Flow FiO2 Mean Ox Delivery Rate 03/29 0642 96 Room Air 03/29 0009 98.5 61 16 110/64 95 Room Air 03/28 1547 96 Room Air Room Air 03/28 1500 98.9 59 16 116/58 96 Room Air Intake & Output 03/29 1600 03/29 0400 03/28 1600 03/28 0400 03/27 1600 03/27 0400 Intake Total 250 250 340 200 240 450 Output Total 100 100 110 500 Balance 150 250 240 200 130 -50 Intake, IV 10 10 0 Intake, Oral 240 240 340 200 240 450 Number 0 Bowel Movements Output, Stool 100 400 Output, Urine 100 100 10 100 Patient 182 lb 188 lb 188 lb Weight Weight Chair scale Chair scale Standing Scale Measurement Method Physical Exam General Appearance: no apparent distress, alert Head: atraumatic Ears, Nose, Throat: normal ENT inspection Neck: R IJ HD cath Respiratory: rhonchi Cardiovascular: regular rate/rhythm Abdomen: non-tender, ostomy in place Extremities: L arm edema resolved; L hand deqsuamated skin stable Neurologic/Psychiatric: awake, alert, oriented x 3 Current Medications: Current Medications Sig/Johnna Start time Last Medication Dose Route Stop Time Status Admin Acetaminophen 1,000 MG .STK-MED ONE 03/28 1051 DC PO 03/28 1052 Acetaminophen 650 MG Q4P PRN 01/31 1100 AC 03/26 PO 1735 Albuterol Sulfate 2 PUF Q4P PRN 02/06 0800 AC 03/26 INH 1734 Albuterol Sulfate 3 ML EVERY 4 HRS/AWAKE 02/05 1600 AC 03/29 INH 0641 Allopurinol 100 MG DAILY 02/20 1818 AC 03/29 PO 0820 Calcitriol 0.25 MCG TuThSa PRN 03/04 0745 AC IV Colchicine 300 MCG QTHURS 03/09 1000 AC 03/16 PO 1232 Colchicine 300 MCG QSUN 03/05 0700 AC 03/26 PO 0704 Diclofenac Sodium 1 MAI 4 TIMES/DAY 02/05 1400 AC 03/28 TOP 1723 Epoetin Guzman 4,000 UNIT TuThSa PRN 03/04 0745 AC IV Furosemide 80 MG DAILY 02/08 1138 AC 03/29 PO 0819 Guaifenesin 600 MG Q12 02/16 1000 AC 03/29 PO 0819 Guaifenesin/ 10 ML Q6P PRN 02/22 2130 AC 03/10 Dextromethorphan PO 2218 Insulin Aspart 0 TIDAC/HS 03/16 0800 AC 03/29 SC 0819 Multivitamins 1 TAB DAILY 03/23 1000 AC 03/29 PO 0819 Nystatin 1 MAI BID 03/26 1507 AC 03/29 TOP 0826 Omeprazole 40 MG DAILY AC 02/12 1200 AC 03/29 PO 0633 Prednisone 40 MG DAILY 03/25 1000 AC 03/29 PO 03/29 1001 0820 Sodium Chloride 2 SPRAY Q4P PRN 01/31 0430 AC 02/05 CHULA 2133 Trazodone HCl 50 MG AT BEDTIME 01/30 220 AC 03/28 PO 2111 Results Pertinent Lab Results: Laboratory Tests 03/28 03/27 1100 0625 Chemistry Sodium (137 - 145 mmol/L) 132 L 136 L Potassium (3.5 - 5.1 mmol/L) 4.3 4.0 Chloride (98 - 107 mmol/L) 94 L 96 L Carbon Dioxide (22 - 30 mmol/L) 21 L 22 Anion Gap (5 - 16) 17 H 17 H BUN (9 - 20 mg/dL) 75 H 46 H Creatinine (0.7 - 1.2 mg/dL) 5.8 *H 4.8 H Estimated GFR (>60 ml/min) 10 L 12 L BUN/Creatinine Ratio (7 - 25 %) 12.9 9.6 Calcium (8.4 - 10.2 mg/dL) 8.6 Magnesium (1.6 - 2.3 mg/dL) 1.9 Coagulation PT (9.4 - 12.5 SEC) 12.6 H INR (0.90 - 1.17) 1.20 H Hematology CBC w Diff NO MAN DIFF REQ NO MAN DIFF REQ WBC (4.8 - 10.8 /CUMM) 9.3 10.2 RBC (4.70 - 6.10 /CUMM) 3.67 L 3.82 L Hgb (14.0 - 18.0 G/DL) 9.8 L 10.3 L Hct (42 - 52 %) 31.1 L 32.9 L MCV (80.0 - 94.0 FL) 84.9 86.0 MCH (27.0 - 31.0 PG) 26.9 L 26.8 L RDW (11.5 - 14.5 %) 19.0 H 19.0 H Plt Count (130 - 400 /CUMM) 147 165 MPV (7.4 - 10.4 FL) 8.1 7.5 Gran % (42.2 - 75.2 %) 88.6 H 81.3 H Lymphocytes % (20.5 - 51.1 %) 6.7 L 11.0 L Monocytes % (1.7 - 9.3 %) 4.6 6.5 Eosinophils % (0 - 5 %) 0 1.2 Basophils % (0.0 - 2.0 %) 0.1 0 L Absolute Granulocytes (1.4 - 6.5 /CUMM) 8.3 H 8.3 H Absolute Lymphocytes (1.2 - 3.4 /CUMM) 0.6 L 1.1 L Absolute Monocytes (0.10 - 0.60 /CUMM) 0.4 0.7 H Absolute Eosinophils (0.0 - 0.7 /CUMM) 0 0.1 Absolute Basophils (0.0 - 0.2 /CUMM) 0 0 PUBS MCHC (33.0 - 37.0 G/DL) 31.6 L 31.2 L
--- NOTE | 2017-03-29 10:39 | PN- Psychiatry ---
See Addendum Assessment/Plan Impression: Identifying Info: 72-year-old male known to this service brought in by ambulance from dialysis to the emergency department on 01/28/2017 for abdominal pain and admitted to medicine. He has been on medicine continuously since that point and is currently waiting the results for title 19 application so he can be transferred to rehabilitation. Consult requested for depression. Of note, a few days ago the patient found out that his 27-year-old son had suddenly in [place]. SUBJECTIVE "I just can't believe hes gone." Patient discussing his loss and reminiscing about his son as a child. He frequently becomes tearful. Recounts his son's issues with substance abuse growing up and down and wishes there was more he can do. Reports his son was cremated on Monday when he was having his surgery. One of the techs that prept him and the same name of his son which she found meaningful. Reports she is yet to call his family to find out about services. Brief ROS Gait: Did not observe Sleep: Adequate Appetite: Patient reports is adequate but he hasn't felt like eating much, frustrated with renal diet OBJECTIVE Mental Status Exam Presentation/Appearance: Cooperative with evaluation. Hospital garb. Sitting in bed. Orientation: x4 Sensorium: Somnolent easily aroused Eye contact: Appropriate Affect: Full range, tearful, quick to tears Mood: "I'm doing okay" Depression: Denies Anxiety: Denies Thought Content: - Denies SI/HI, AH/VH, PI. States and also believes they will not kill themselves. - Endorses Hopeless/Helpless Thoughts Thought Process: Linear Associations: Appropriate Speech: Normal tone and rate Judgment: Intact Insight: Intact Cognition: Memory: Grossly intact Attention/Concentration: Grossly intact Fund of Knowledge: Adequate Abstractions: Did not assess MMSE: Did not assess ASSESSMENT 72-year-old male with a history of multiple chronic medical illnesses with frequent hospitalization as well as the recent of a son presents as depressed. He appears to be minimizing feelings of demoralization. He is able to express his feelings of loss well related to his son. He would benefit from ongoing help processing his current emotions. While he currently declines, he would also likely benefit from an antidepressant medication. 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 If possible, every effort should be made to involve the patient in memorial services for his son once more details are known. This has been discussed with nursing and social work. 2. We'll continue to engage the patient. We will continue to encourage psychiatric follow-up. Thank you for including psychiatry in this case we'll follow on an ongoing basis Subjective Subjective: as above Objective Last 24 Hrs of Vital Signs/I&O Current Medications Sig/Johnna Start time Last Medication Dose Route Stop Time Status Admin Acetaminophen 1,000 MG .STK-MED ONE 03/28 1051 DC PO 03/28 1052 Acetaminophen 650 MG Q4P PRN 01/31 1100 AC 03/26 PO 1735 Albuterol Sulfate 2 PUF Q4P PRN 02/06 0800 AC 03/26 INH 1734 Albuterol Sulfate 3 ML EVERY 4 HRS/AWAKE 02/05 1600 AC 03/29 INH 0641 Allopurinol 100 MG DAILY 02/20 1818 AC 03/29 PO 0820 Calcitriol 0.25 MCG TuThSa PRN 03/04 0745 AC IV Colchicine 300 MCG QTHURS 03/09 1000 AC 03/16 PO 1232 Colchicine 300 MCG QSUN 03/05 0700 AC 03/26 PO 0704 Diclofenac Sodium 1 MAI 4 TIMES/DAY 02/05 1400 AC 03/28 TOP 1723 Epoetin Guzman 4,000 UNIT TuThSa PRN 03/04 0745 AC IV Furosemide 80 MG DAILY 02/08 1138 AC 03/29 PO 0819 Guaifenesin 600 MG Q12 02/16 1000 AC 03/29 PO 0819 Guaifenesin/ 10 ML Q6P PRN 02/22 2130 AC 03/10 Dextromethorphan PO 2218 Insulin Aspart 0 TIDAC/HS 03/16 0800 AC 03/29 SC 0819 Multivitamins 1 TAB DAILY 03/23 1000 AC 03/29 PO 0819 Nystatin 1 MAI BID 03/26 1507 AC 03/29 TOP 0826 Omeprazole 40 MG DAILY AC 02/12 1200 AC 03/29 PO 0633 Prednisone 40 MG DAILY 03/25 1000 DC 03/29 PO 03/29 1001 0820 Sodium Chloride 2 SPRAY Q4P PRN 01/31 0430 AC 02/05 CHULA 2133 Trazodone HCl 50 MG AT BEDTIME 01/30 2200 AC 03/28 PO 2111 Laboratory Tests 03/28/17 1100: Anion Gap 17 H, Estimated GFR 10 L, BUN/Creatinine Ratio 12.9, Calcium 8.6, CBC w Diff NO MAN DIFF REQ, RBC 3.67 L, MCV 84.9, MCH 26.9 L, RDW 19.0 H, MPV 8.1, Gran % 88.6 H, Lymphocytes % 6.7 L, Monocytes % 4.6, Eosinophils % 0, Basophils % 0.1, Absolute Granulocytes 8.3 H, Absolute Lymphocytes 0.6 L, Absolute Monocytes 0.4, Absolute Eosinophils 0, Absolute Basophils 0, PUBS MCHC 31.6 L Vital Signs Date Time Temp Pulse Resp B/P B/P Pulse O2 O2 Flow FiO2 Mean Ox Delivery Rate 03/29 0800 98.4 64 20 13/62 97 Room Air 03/29 0642 96 Room Air 03/29 0009 98.5 61 16 110/64 95 Room Air 03/28 1547 96 Room Air Room Air 03/28 1500 98.9 59 16 116/58 96 Room Air Intake & Output 03/29 1600 03/29 0800 03/29 0000 Intake Total 250 250 Output Total 100 Balance 150 250 Intake, IV 10 10 Intake, Oral 240 240 Output, Urine 100 Patient 182 lb Weight Weight Chair scale Measurement Method
--- NOTE | 2017-03-29 15:00 | NUR ---
Met with Chacorta this afternoon. He was up and out of his room in the lounge looking at the fish. This was the first time I had seen him outside of his room. Mr. Arias was notified last wek that his son Gaurang, who lived in [place] had been found . Originally there was some discussion and thought that there would be a service here in [place], after cremation in [place]. When I asked Chacorta about this today, he was not sure. Patient expressing sadness and grief over loss. Mr. Arias is expressing concern about his care, and has already been in touch with Sanjay Umaña from patient relations. Mr. Arias's HUKY application is in pending status with DSS and I spoke with welfare case worker there yesterday. community health outreach worker plans to formally request bank statements directly from [facility]. Mr. Arias aware; director of casework here at hospital also aware. Follow
--- NOTE | 2017-03-29 15:02 | PN- Att Addend ---
Attending Addendum Attending Brief Note 72M PMH COPD, ESRD on HD, paroxysmal atrial fibrillation on Coumadin, chronic diastolic CHF, T2DM, PVD, CAD, history of MGUS, neuropathy who was originally admitted with ischemic bowel which required resection and colostomy. Also with chronic left arm swelling since undergoing AV-fistula placement on 01/30/17. Currently patient is undergoing hemodialysis Monday per nephrology. He is awaiting for insurance paperwork to be completed so that he can be placed in a ch[facility]. Underwent fistulogram 03/27. Arm is significantly improved, as swelling has resolved and pain has nearly resolved. Desquamation is improving as well. Review of systems normal. AFVSS NAD NCAT Supple RRR Mild wheezes bilaterally Soft, NTND, ostomy clean No LE edema, LUE edematous, non-tender Pulses intact A&Ox3 no focal deficits Plan - Continue current management - Fistulogram complete, will follow vascular recommmendations - Interrogation complete, will transfer back to general medicine - Follow cardiology recommendations - Coumadin restarted - Follow nephrology recommendations - Follow up with social work and case management regarding placement to [facility]
[2017-03-29 16:31] VITALS: BP 140/60
--- NOTE | 2017-03-29 17:00 | NUR ---
NSG NOTE: SPOKE TO DR. MARQUEZ REGARDING COUMADIN FOR TONIGHT; PER , OK THAT INR WAS NOT CHECKED TODAY AND THAT LAST CHECKED INR 1.20 ON 03/27; ALSO NOTIFIED THAT DINNER FINGERSTICK 396 TONIGHT; WILL MONITOR
[2017-03-29 23:30] VITALS: BP 124/50
[2017-03-30 08:00] VITALS: BP 126/60
--- NOTE | 2017-03-30 08:59 | PN- Nephrology ---
Assessment/Plan Assessment: 1. ESRD: HD in progress - UF 4 liters 2. L arm edema: much improved Suggestion: Next HD Sat Await d/c to [facility] --> has outpt HD seat Subjective Subjective: No new issues Objective Vital Signs and I&Os Vital Signs Date Time Temp Pulse Resp B/P B/P Pulse O2 O2 Flow FiO2 Mean Ox Delivery Rate 03/29 2330 98.3 59 18 124/50 94 Room Air 03/29 1820 92 Room Air 03/29 1631 98.9 59 18 140/60 95 Intake & Output 03/30 1600 03/30 0400 03/29 1600 03/29 0400 03/28 1600 03/28 0400 Intake Total 240 750 250 340 200 Output Total 300 200 100 Balance -60 550 250 240 200 Intake, IV 10 10 Intake, Oral 240 740 240 340 200 Number 0 Bowel Movements Output, Other 50 Output, Stool 150 Output, Urine 100 200 100 Patient 188 lb 182 lb 188 lb Weight Weight Standing Scale Chair scale Chair scale Measurement Method Physical Exam General Appearance: well developed/nourished, no apparent distress Head: atraumatic, normal appearance Ears, Nose, Throat: normal ENT inspection Neck: normal inspection (R IJ cath) Respiratory: no respiratory distress, quiet respiration, lungs clear Cardiovascular: regular rate/rhythm, pacer L chest Abdomen: non-tender, ostomy intact Extremities: 2+ edema legs; L arm edema much improved Neurologic/Psychiatric: awake, alert, depressed Current Medications: Current Medications Sig/Johnna Start time Last Medication Dose Route Stop Time Status Admin Acetaminophen 650 MG Q4P PRN 01/31 1100 AC 03/26 PO 1735 Albuterol Sulfate 2 PUF Q4P PRN 02/06 0800 AC 03/26 INH 1734 Albuterol Sulfate 3 ML EVERY 4 HRS/AWAKE 02/05 1600 AC 03/30 INH 0853 Allopurinol 100 MG DAILY 02/20 1818 AC 03/29 PO 0820 Calcitriol 0.25 MCG TuThSa PRN 03/04 0745 AC IV Colchicine 300 MCG QTHURS 03/09 1000 AC 03/16 PO 1232 Colchicine 300 MCG QSUN 03/05 0700 AC 03/26 PO 0704 Diclofenac Sodium 1 MAI 4 TIMES/DAY 02/05 1400 AC 03/29 TOP 2106 Epoetin Guzman 4,000 UNIT TuThSa PRN 03/04 0745 AC IV Furosemide 80 MG DAILY 02/08 1138 AC 03/29 PO 0819 Guaifenesin 600 MG Q12 02/16 1000 AC 03/29 PO 210 Guaifenesin/ 10 ML Q6P PRN 02/22 2130 AC 03/10 Dextromethorphan PO 221 Insulin Aspart 0 TIDAC/HS 03/16 0800 AC 03/29 SC 210 Multivitamins 1 TAB DAILY 03/23 1000 AC 03/29 PO 0819 Nystatin 1 MAI BID 03/26 1507 AC 03/29 TOP 210 Omeprazole 40 MG DAILY AC 02/12 1200 AC 03/30 PO 0649 Prednisone 40 MG DAILY 03/25 1000 DC 03/29 PO 03/29 1001 0820 Sodium Chloride 2 SPRAY Q4P PRN 01/31 0430 AC 02/05 CHULA 213 Trazodone HCl 50 MG AT BEDTIME 01/30 2200 AC 03/29 PO 2105 Warfarin Sodium 7.5 MG COUMADIN 1700 ONE 03/29 1700 DC 03/29 PO 03/29 1701 1712 Results Pertinent Lab Results: Laboratory Tests 03/28 1100 Chemistry Sodium (137 - 145 mmol/L) 132 L Potassium (3.5 - 5.1 mmol/L) 4.3 Chloride (98 - 107 mmol/L) 94 L Carbon Dioxide (22 - 30 mmol/L) 21 L Anion Gap (5 - 16) 17 H BUN (9 - 20 mg/dL) 75 H Creatinine (0.7 - 1.2 mg/dL) 5.8 *H Estimated GFR (>60 ml/min) 10 L BUN/Creatinine Ratio (7 - 25 %) 12.9 Calcium (8.4 - 10.2 mg/dL) 8.6 Hematology CBC w Diff NO MAN DIFF REQ WBC (4.8 - 10.8 /CUMM) 9.3 RBC (4.70 - 6.10 /CUMM) 3.67 L Hgb (14.0 - 18.0 G/DL) 9.8 L Hct (42 - 52 %) 31.1 L MCV (80.0 - 94.0 FL) 84.9 MCH (27.0 - 31.0 PG) 26.9 L RDW (11.5 - 14.5 %) 19.0 H Plt Count (130 - 400 /CUMM) 147 MPV (7.4 - 10.4 FL) 8.1 Gran % (42.2 - 75.2 %) 88.6 H Lymphocytes % (20.5 - 51.1 %) 6.7 L Monocytes % (1.7 - 9.3 %) 4.6 Eosinophils % (0 - 5 %) 0 Basophils % (0.0 - 2.0 %) 0.1 Absolute Granulocytes (1.4 - 6.5 /CUMM) 8.3 H Absolute Lymphocytes (1.2 - 3.4 /CUMM) 0.6 L Absolute Monocytes (0.10 - 0.60 /CUMM) 0.4 Absolute Eosinophils (0.0 - 0.7 /CUMM) 0 Absolute Basophils (0.0 - 0.2 /CUMM) 0 PUBS MCHC (33.0 - 37.0 G/DL) 31.6 L
--- NOTE | 2017-03-30 13:30 | PN- Att Addend ---
Attending Addendum Attending Brief Note 72M PMH COPD, ESRD on HD, paroxysmal atrial fibrillation on Coumadin, chronic diastolic CHF, T2DM, PVD, CAD, history of MGUS, neuropathy who was originally admitted with ischemic bowel which required resection and colostomy. Also with chronic left arm swelling since undergoing AV-fistula placement on 01/30/17. Currently patient is undergoing hemodialysis Monday per nephrology. He is awaiting for insurance paperwork to be completed so that he can be placed in a half-way. Underwent fistulogram 03/27. Arm is significantly improved, as swelling has resolved and pain has nearly resolved. Desquamation is improving as well. Review of systems normal. AFVSS NAD NCAT Supple RRR Mild wheezes bilaterally Soft, NTND, ostomy clean No LE edema, LUE edematous, non-tender Pulses intact A&Ox3 no focal deficits Plan - Continue current management - Fistulogram complete, will follow vascular recommmendations - Interrogation complete, will transfer back to general medicine - Follow cardiology recommendations - Coumadin restarted - Follow nephrology recommendations - Follow up with social work and case management regarding placement to [facility]
[2017-03-30 16:21] VITALS: BP 108/52
[2017-03-30 17:56] LABS: PT 12.4 SEC (9.4-12.5)
[2017-03-30 23:25] VITALS: BP 102/58
[2017-03-31 08:42] VITALS: BP 156/70
--- NOTE | 2017-03-31 09:36 | PN- Nephrology ---
Assessment/Plan Assessment: 1. ESRD: no HD need today 2. L arm pain: venous HTN resolved post AVF ligation - if pain doesn't improve will need vasc surg reevaluation Suggestion: Next HD tomorrow Await d/c to [facility] --> has outpt HD seat Subjective Subjective: Stll c/o L hand & lower arm pain despite resolution of edema No SOB Tolerated HD w 4 liter UF yesterday Still waiting T19 Objective Vital Signs and I&Os Vital Signs Date Time Temp Pulse Resp B/P B/P Pulse O2 O2 Flow FiO2 Mean Ox Delivery Rate 03/31 0842 98.1 59 20 156/70 95 Room Air 03/31 0816 Room Air 03/30 2325 98.4 60 20 102/58 93 Room Air 03/30 1621 98.6 59 20 108/52 95 Room Air 03/30 1555 98 Room Air Intake & Output 03/31 1600 03/31 0400 03/30 1600 03/30 0400 03/29 1600 03/29 0400 Intake Total 100 100 240 750 250 Output Total 50 250 300 200 Balance 50 100 -250 -60 550 250 Intake, IV 10 10 Intake, Oral 100 100 240 740 240 Output, Other 50 Output, Stool 250 150 Output, Urine 50 100 200 Patient 188 lb 182 lb Weight Weight Standing Scale Chair scale Measurement Method Physical Exam General Appearance: well developed/nourished, no apparent distress Head: atraumatic Ears, Nose, Throat: normal ENT inspection Neck: R IJ cath Respiratory: quiet respiration, lungs clear Cardiovascular: regular rate/rhythm, pacer L chest Abdomen: soft, ostomy in place Extremities: swelling (leg 1+), L hand skin desqamation gealing - improved ROM hand/strength Neurologic/Psychiatric: awake, alert Current Medications: Current Medications Sig/Johnna Start time Last Medication Dose Route Stop Time Status Admin Acetaminophen 650 MG Q4P PRN 01/31 1100 AC 03/26 PO 1735 Albuterol Sulfate 2 PUF Q4P PRN 02/06 0800 AC 03/26 INH 1734 Albuterol Sulfate 3 ML EVERY 4 HRS/AWAKE 02/05 1600 AC 03/31 INH 0805 Allopurinol 100 MG DAILY 02/20 1818 AC 03/31 PO 0828 Calcitriol 0.25 MCG TuThSa PRN 03/04 0745 AC IV Colchicine 300 MCG QTHURS 03/09 1000 AC 03/30 PO 1448 Colchicine 300 MCG QSUN 03/05 0700 AC 03/26 PO 0704 Diclofenac Sodium 1 MAI 4 TIMES/DAY 02/05 1400 AC 03/31 TOP 0824 Epoetin Guzman 4,000 UNIT TuThSa PRN 03/04 0745 AC IV Furosemide 80 MG DAILY 02/08 1138 AC 03/31 PO 0829 Guaifenesin 600 MG Q12 02/16 1000 AC 03/31 PO 0824 Guaifenesin/ 10 ML Q6P PRN 02/22 2130 AC 03/10 Dextromethorphan PO 2218 Insulin Aspart 0 TIDAC/HS 03/16 0800 AC 03/31 SC 0817 Multivitamins 1 TAB DAILY 03/23 1000 AC 03/31 PO 0825 Nystatin 1 MAI BID 03/26 1507 DC 03/30 TOP 1459 Omeprazole 40 MG DAILY AC 02/12 1200 AC 03/31 PO 0644 Sodium Chloride 2 SPRAY Q4P PRN 01/31 0430 AC 02/05 CHULA 2133 Trazodone HCl 50 MG AT BEDTIME 01/30 2200 AC 03/30 PO 2117 Warfarin Sodium 5 MG COUMADIN 1700 ONE 03/30 1700 DC 03/30 PO 03/30 1701 1937 Results Pertinent Lab Results: Laboratory Tests 03/31 03/30 03/28 0650 1700 1100 Chemistry Sodium (137 - 145 mmol/L) 132 L Potassium (3.5 - 5.1 mmol/L) 4.3 Chloride (98 - 107 mmol/L) 94 L Carbon Dioxide (22 - 30 mmol/L) 21 L Anion Gap (5 - 16) 17 H BUN (9 - 20 mg/dL) 75 H Creatinine (0.7 - 1.2 mg/dL) 5.8 *H Estimated GFR (>60 ml/min) 10 L BUN/Creatinine Ratio (7 - 25 %) 12.9 Calcium (8.4 - 10.2 mg/dL) 8.6 Coagulation PT (9.4 - 12.5 SEC) 13.0 H 12.4 INR (0.90 - 1.17) 1.24 H 1.18 H Hematology CBC w Diff NO MAN DIFF REQ WBC (4.8 - 10.8 /CUMM) 9.3 RBC (4.70 - 6.10 /CUMM) 3.67 L Hgb (14.0 - 18.0 G/DL) 9.8 L Hct (42 - 52 %) 31.1 L MCV (80.0 - 94.0 FL) 84.9 MCH (27.0 - 31.0 PG) 26.9 L RDW (11.5 - 14.5 %) 19.0 H Plt Count (130 - 400 /CUMM) 147 MPV (7.4 - 10.4 FL) 8.1 Gran % (42.2 - 75.2 %) 88.6 H Lymphocytes % (20.5 - 51.1 %) 6.7 L Monocytes % (1.7 - 9.3 %) 4.6 Eosinophils % (0 - 5 %) 0 Basophils % (0.0 - 2.0 %) 0.1 Absolute Granulocytes (1.4 - 6.5 /CUMM) 8.3 H Absolute Lymphocytes (1.2 - 3.4 /CUMM) 0.6 L Absolute Monocytes (0.10 - 0.60 /CUMM) 0.4 Absolute Eosinophils (0.0 - 0.7 /CUMM) 0 Absolute Basophils (0.0 - 0.2 /CUMM) 0 PUBS MCHC (33.0 - 37.0 G/DL) 31.6 L
--- NOTE | 2017-03-31 10:25 | PN- Att Addend ---
Attending Addendum Attending Brief Note 72M PMH COPD, ESRD on HD, paroxysmal atrial fibrillation on Coumadin, chronic diastolic CHF, T2DM, PVD, CAD, history of MGUS, neuropathy who was originally admitted with ischemic bowel which required resection and colostomy. Also with chronic left arm swelling since undergoing AV-fistula placement on 01/30/17. Currently patient is undergoing hemodialysis Monday per nephrology. He is awaiting for insurance paperwork to be completed so that he can be placed in a fdc. Underwent fistulogram 03/27. Arm is significantly improved, as swelling has resolved and pain has nearly resolved. Desquamation is improving as well. Review of systems normal. AFVSS NAD NCAT Supple RRR Mild wheezes bilaterally Soft, NTND, ostomy clean No LE edema, LUE edematous, non-tender Pulses intact A&Ox3 no focal deficits Current Medications Sig/Johnna Start time Last Medication Dose Route Stop Time Status Admin Acetaminophen 650 MG Q4P PRN 01/31 1100 AC 03/26 PO 1735 Albuterol Sulfate 2 PUF Q4P PRN 02/06 0800 AC 03/26 INH 1734 Albuterol Sulfate 3 ML EVERY 4 HRS/AWAKE 02/05 1600 AC 03/31 INH 0805 Allopurinol 100 MG DAILY 02/20 1818 AC 03/31 PO 0828 Calcitriol 0.25 MCG TuThSa PRN 03/04 0745 AC IV Colchicine 300 MCG QTHURS 03/09 1000 AC 03/30 PO 1448 Colchicine 300 MCG QSUN 03/05 0700 AC 03/26 PO 0704 Diclofenac Sodium 1 MAI 4 TIMES/DAY 02/05 1400 AC 03/31 TOP 0824 Epoetin Guzman 4,000 UNIT TuThSa PRN 03/04 0745 AC IV Furosemide 80 MG DAILY 02/08 1138 AC 03/31 PO 0829 Guaifenesin 600 MG Q12 02/16 1000 AC 03/31 PO 0824 Guaifenesin/ 10 ML Q6P PRN 02/22 2130 AC 03/10 Dextromethorphan PO 2218 Insulin Aspart 0 TIDAC/HS 03/16 0800 AC 03/31 SC 0817 Multivitamins 1 TAB DAILY 03/23 1000 AC 03/31 PO 0825 Nystatin 1 MAI BID 03/26 1507 DC 03/30 TOP 1459 Omeprazole 40 MG DAILY AC 02/12 1200 AC 03/31 PO 0644 Sodium Chloride 2 SPRAY Q4P PRN 01/31 0430 AC 02/05 CHULA 2133 Trazodone HCl 50 MG AT BEDTIME 01/30 2200 AC 03/30 PO 211 Warfarin Sodium 5 MG COUMADIN 1700 ONE 03/30 1700 DC 03/30 PO 03/30 1701 1937 Laboratory Tests 03/31 03/30 0650 1700 Coagulation PT (9.4 - 12.5 SEC) 13.0 H 12.4 INR (0.90 - 1.17) 1.24 H 1.18 H Plan - Continue current management - Fistulogram complete, will follow vascular recommmendations - Interrogation complete, will transfer back to general medicine - Follow cardiology recommendations - Coumadin restarted - Follow nephrology recommendations - Follow up with social work and case management regarding placement to [facility]
[2017-03-31 16:18] VITALS: BP 134/56
[2017-04-01 00:32] VITALS: BP 118/52
--- NOTE | 2017-04-01 07:30 | NUR ---
TO DIALYSIS VIA HOSPITAL BED. ALERT ORIENTED X3. NO COMPLAINTS OF PAIN.
[2017-04-01 08:00] VITALS: BP 140/60
[2017-04-01 08:47] LABS: ABSOLUTE BASOPHIL COUNT 0 /CUMM (0.0-0.2); ABSOLUTE EOSINOPHIL COUNT 0.4 /CUMM (0.0-0.7); ABSOLUTE GRANULOCYTE CT 8.5 /CUMM (1.4-6.5); ABSOLUTE LYMPH COUNT 1.6 /CUMM (1.2-3.4); ABSOLUTE MONOCYTE COUNT 0.7 /CUMM (0.10-0.60); BASOPHIL % 0.3 % (0.0-2.0); EOSINOPHIL % 3.5 % (0-5); HEMATOCRIT 31.5 % (42-52); MEAN CORPUSCULAR HGB 27.4 PG (27.0-31.0); MEAN CORPUSCULAR VOLUME 85.6 FL (80.0-94.0); MEAN PLATELET VOLUME 8.1 FL (7.4-10.4); PLATELET COUNT 129 /CUMM (130-400); RBC DISTRIBUTION WIDTH 19.3 % (11.5-14.5); RED BLOOD CELL CT 3.68 /CUMM (4.70-6.10); WHITE BLOOD CELL COUNT 11.2 /CUMM (4.8-10.8)
[2017-04-01 09:02] LABS: PT 14.2 SEC (9.4-12.5)
[2017-04-01 11:50] VITALS: BP 130/60
--- NOTE | 2017-04-01 11:50 | NUR ---
BACK FROM DIALYSIS. SETTLED INTO ROOM. VITALS STABLE. REVIEWED POC. CALL SALTER IN REACH. SEE NURSING ASSESSMENT FLOWSHEETS FOR FURTHER DOCUMENATION.
--- NOTE | 2017-04-01 13:56 | PN- Nephrology ---
Assessment/Plan Assessment: ESRD: Stable from renal standpoint. Epogen & calcitriol IV 3x/week with dialysis. Had HD today via SALMA cath. 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 Suggestion: HD today in process Next HD monday; has outpatient seat at [facility] if discharged this Will follow along with you Froy Vasquez MD Subjective Subjective: Patient was dialyzed this morning. 2.5 L of fluid removed. No new complaints Review of Systems: No fever or chills No chest pain or shortness of breath Changing ostomy bag several times per day Objective Vital Signs and I&Os Vital Signs Date Time Temp Pulse Resp B/P B/P Pulse O2 O2 Flow FiO2 Mean Ox Delivery Rate 04/01 1225 98 Room Air Room Air 04/01 1150 Room Air 04/01 1150 98.0 60 18 130/60 96 Room Air 04/01 0800 97.8 61 18 140/60 97 Room Air 04/01 0032 97.7 61 20 118/52 96 Room Air 03/31 2032 98 Room Air 03/31 1705 97 Room Air 03/31 1618 97.6 60 20 134/56 98 Room Air Intake & Output 04/01 1600 04/01 0400 03/31 1600 03/31 0400 03/30 1600 03/30 0400 Intake Total 480 600 580 100 240 Output Total 400 100 250 300 Balance 80 600 480 100 -250 -60 Intake, Oral 480 600 580 100 240 Output, Other 50 Output, Stool 200 250 150 Output, Urine 200 100 100 Patient 179 lb 188 lb Weight Weight Standing Scale Standing Scale Measurement Method Physical Exam: General: NAD, A+O x3. 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 Skin along L hand raw/exoriated Current Medications: Current Medications Sig/Johnna Start time Last Medication Dose Route Stop Time Status Admin Acetaminophen 650 MG .STK-MED ONE 03/31 2133 DC PO 03/31 2134 Acetaminophen 650 MG Q4P PRN 01/31 1100 AC 03/31 PO 2136 Albuterol Sulfate 2 PUF Q4P PRN 02/06 0800 AC 05/21 INH 1734 Albuterol Sulfate 3 ML EVERY 4 HRS/AWAKE 02/05 1600 AC 04/01 INH 1222 Allopurinol 100 MG DAILY 02/20 1818 AC 04/01 PO 1250 Benzocaine/Menthol 1 LAZARO Q2P PRN 03/31 2215 AC PO Calcitriol 0.25 MCG TuThSa PRN 03/04 0745 AC IV Colchicine 300 MCG QTHURS 03/09 1000 AC 03/30 PO 1448 Colchicine 300 MCG QSUN 03/05 0700 AC 03/26 PO 0704 Diclofenac Sodium 1 MAI 4 TIMES/DAY 02/05 1400 AC 04/01 TOP 1200 Epoetin Guzman 4,000 UNIT TuThSa PRN 03/04 0745 AC IV Furosemide 80 MG DAILY 02/08 1138 AC 04/01 PO 1250 Guaifenesin 600 MG Q12 02/16 1000 AC 04/01 PO 1250 Guaifenesin/ 10 ML Q6P PRN 02/22 2130 AC 03/10 Dextromethorphan PO 2218 Insulin Aspart 0 TIDAC/HS 03/16 0800 AC 04/01 SC 1249 Multivitamins 1 TAB DAILY 03/23 1000 AC 04/01 PO 1250 Omeprazole 40 MG DAILY AC 02/12 1200 AC 04/01 PO 0610 Oxycodone/ 1 TAB ONCE ONE 03/31 223 DC 03/31 Acetaminophen PO 03/31 223 2226 Sodium Chloride 2 SPRAY Q4P PRN 01/31 0430 AC 02/05 CHULA 2133 Trazodone HCl 50 MG AT BEDTIME 01/30 2200 AC 03/31 PO 2135 Warfarin Sodium 10 MG COUMADIN 1700 ONE 03/31 1700 DC 03/31 PO 03/31 1701 1649 Results Pertinent Lab Results: Laboratory Tests 04/01 04/01 03/31 0827 0800 0650 Chemistry Sodium (137 - 145 mmol/L) 137 Potassium (3.5 - 5.1 mmol/L) 4.1 Chloride (98 - 107 mmol/L) 100 Carbon Dioxide (22 - 30 mmol/L) 21 L Anion Gap (5 - 16) 16 BUN (9 - 20 mg/dL) 64 H Creatinine (0.7 - 1.2 mg/dL) 4.9 H Estimated GFR (>60 ml/min) 12 L BUN/Creatinine Ratio (7 - 25 %) 13.1 Coagulation PT (9.4 - 12.5 SEC) 14.2 H 13.0 H INR (0.90 - 1.17) 1.36 H 1.24 H Hematology CBC w Diff NO MAN DIFF REQ WBC (4.8 - 10.8 /CUMM) 11.2 H RBC (4.70 - 6.10 /CUMM) 3.68 L Hgb (14.0 - 18.0 G/DL) 10.1 L Hct (42 - 52 %) 31.5 L MCV (80.0 - 94.0 FL) 85.6 MCH (27.0 - 31.0 PG) 27.4 RDW (11.5 - 14.5 %) 19.3 H Plt Count (130 - 400 /CUMM) 129 L MPV (7.4 - 10.4 FL) 8.1 Gran % (42.2 - 75.2 %) 76.0 H Lymphocytes % (20.5 - 51.1 %) 13.9 L Monocytes % (1.7 - 9.3 %) 6.3 Eosinophils % (0 - 5 %) 3.5 Basophils % (0.0 - 2.0 %) 0.3 Absolute Granulocytes (1.4 - 6.5 /CUMM) 8.5 H Absolute Lymphocytes (1.2 - 3.4 /CUMM) 1.6 Absolute Monocytes (0.10 - 0.60 /CUMM) 0.7 H Absolute Eosinophils (0.0 - 0.7 /CUMM) 0.4 Absolute Basophils (0.0 - 0.2 /CUMM) 0 PUBS MCHC (33.0 - 37.0 G/DL) 32.0 L 05/25 1700 Coagulation PT (9.4 - 12.5 SEC) 12.4 INR (0.90 - 1.17) 1.18 H
--- NOTE | 2017-04-01 16:41 | PN- Att Addend ---
Attending Addendum Attending Brief Note 72M PMH COPD, ESRD on HD, paroxysmal atrial fibrillation on Coumadin, chronic diastolic CHF, T2DM, PVD, CAD, history of MGUS, neuropathy who was originally admitted with ischemic bowel which required resection and colostomy. Also with chronic left arm swelling since undergoing AV-fistula placement on 01/30/17. Currently patient is undergoing hemodialysis Monday per nephrology. He is awaiting for insurance paperwork to be completed so that he can be placed in a long-term. Underwent fistulogram 03/27. Arm is significantly improved, as swelling has resolved and pain has nearly resolved. Desquamation is improving as well. We have restarted the patient on Coumadin. Review of systems normal. Patient in no acute distress. Neck supple no lymphadenopath. heart- RRR Mild wheezes bilaterally Soft, NTND, ostomy site clean No LE edema, LUE edematous, non-tender Pulses intact A&Ox3 no focal deficits Laboratory Tests 04/01/17 0827: Anion Gap 16, Estimated GFR 12 L, BUN/Creatinine Ratio 13.1, CBC w Diff NO MAN DIFF REQ, RBC 3.68 L, MCV 85.6, MCH 27.4, RDW 19.3 H, MPV 8.1, Gran % 76.0 H, Lymphocytes % 13.9 L, Monocytes % 6.3, Eosinophils % 3.5, Basophils % 0.3, Absolute Granulocytes 8.5 H, Absolute Lymphocytes 1.6, Absolute Monocytes 0.7 H, Absolute Eosinophils 0.4, Absolute Basophils 0, PUBS MCHC 32.0 L 04/01/17 0800: PT 14.2 H, INR 1.36 H Vital Signs Date Time Temp Pulse Resp B/P B/P Pulse O2 O2 Flow FiO2 Mean Ox Delivery Rate 04/01 1550 Room Air 04/01 1225 98 Room Air Room Air 04/01 1150 Room Air 04/01 1150 98.0 60 18 130/60 96 Room Air 04/01 0800 97.8 61 18 140/60 97 Room Air 04/01 0032 97.7 61 20 118/52 96 Room Air 03/31 2032 98 Room Air 03/31 1705 97 Room Air Plan - Continue current management - Currently s/p AV fistula ligation on 03/27, will follow vascular recommmendations and will need suture removal on 04/06/17. - Interrogation complete, will transfer back to general medicine - Follow cardiology recommendations - Coumadin restarted-will give 7.5 mg tonight on 04/01. f/u on INR - Follow nephrology recommendations - Follow up with social work and case management regarding placement to [facility]
[2017-04-01 17:36] VITALS: BP 130/54
[2017-04-01 19:55] VITALS: BP 122/40
[2017-04-02 06:59] VITALS: BP 120/50
[2017-04-02 11:29] LABS: PT 17.5 SEC (9.4-12.5)
--- NOTE | 2017-04-02 13:03 | PN- Att Addend ---
Attending Addendum Attending Brief Note 72M PMH COPD, ESRD on HD- , , Sat, paroxysmal atrial fibrillation on Coumadin, chronic diastolic CHF, T2DM, PVD, CAD, history of MGUS, neuropathy who was originally admitted with ischemic bowel which required resection and colostomy. Also with chronic left arm swelling since undergoing AV-fistula placement on 01/30/17. Currently patient is undergoing hemodialysis Monday per nephrology. He is awaiting for insurance paperwork to be completed so that he can be placed in a retirement. Underwent fistulogram 03/27. Arm is significantly improved, as swelling has resolved and pain has nearly resolved. Desquamation is improving as well. We have restarted the patient on Coumadin. Review of systems normal- No fever, no chills, no chest pain, no sob, no nausea, no vomiting, no confusion, says has good appetite. Patient in no acute distress. Neck supple no lymphadenopath. heart- RRR Mild wheezes bilaterally Soft, NTND, ostomy site clean No LE edema, LUE edematous, non-tender Pulses intact A&Ox3 no focal deficits Laboratory Tests 04/02/17 1022: PT 17.5 H, INR 1.68 H Vital Signs Date Time Temp Pulse Resp B/P B/P Pulse O2 O2 Flow FiO2 Mean Ox Delivery Rate 04/02 0820 95 Room Air 04/02 0800 Room Air 04/02 0659 98.7 60 20 120/50 96 Room Air 04/01 1955 98.3 59 20 122/40 96 Room Air 04/01 1736 98.0 58 16 130/54 98 04/01 1550 Room Air Plan - Continue current management - Currently s/p AV fistula ligation on 03/27, will follow vascular recommmendations and will need suture removal on 04/06/17. - Interrogation complete, will transfer back to general medicine - Follow cardiology recommendations - Coumadin restarted-will give 7.5 mg tonight on 04/02. f/u on INR. INR today is 1.68 - Follow nephrology recommendations - Follow up with social work and case management regarding placement to [facility]
[2017-04-02 14:23] VITALS: BP 120/55
[2017-04-02 22:46] VITALS: BP 126/44
[2017-04-03 06:40] VITALS: BP 114/52
[2017-04-03 08:51] LABS: PT 20.2 SEC (9.4-12.5)
--- NOTE | 2017-04-03 10:59 | NUR ---
Nutrition Note: asked by dining services to speak with pt about meal issues. Issues discussed with pt and with trayline processing supervisor. Pt asking for foods that are not recommended with current dietary restrictions of 2gK/2gNa. Pt reports he is [place] and doesn't eat like this at home, is aware of need for dietary restrictions given dialysis but still upset about menu choices. RD discussed with Dr Fatima and will allow 3gK (1000mg K each meal) as discussed, K has been WNL previously. Menu system updated with 3gK allowance and RD communicated with dining service staff who takes meals orders. reports pt doesn't need the Nepro any longer, will discontinue as per .
[2017-04-03 15:34] VITALS: BP 126/58
--- NOTE | 2017-04-03 15:53 | PN- Att Addend ---
Attending Addendum Attending Brief Note 72M PMH COPD, ESRD on HD- , , Sat, paroxysmal atrial fibrillation on Coumadin, chronic diastolic CHF, T2DM, PVD, CAD, history of MGUS, neuropathy who was originally admitted with ischemic bowel which required resection and colostomy. Also with chronic left arm swelling since undergoing AV-fistula placement on 01/30/17. Currently patient is undergoing hemodialysis Monday per nephrology. He is awaiting for insurance paperwork to be completed so that he can be placed in a [facility]. Underwent fistulogram 03/27. Arm is significantly improved, as swelling has resolved and pain has nearly resolved. Desquamation is improving as well. We have restarted the patient on Coumadin. Review of systems normal- No fever, no chills, no chest pain, no sob, no nausea, no vomiting, no confusion, says has good appetite. Patient in no acute distress. Neck supple no lymphadenopath. heart- RRR Mild wheezes bilaterally Soft, NTND, ostomy site clean No LE edema, LUE edematous, non-tender Pulses intact A&Ox3 no focal deficits Laboratory Tests 04/03/17 0734: PT 20.2 H, INR 1.94 H Vital Signs Date Time Temp Pulse Resp B/P B/P Pulse O2 O2 Flow FiO2 Mean Ox Delivery Rate 04/03 1534 98.8 60 20 126/58 97 04/03 0816 97 Room Air Room Air 04/03 0640 98.5 74 16 114/52 97 Room Air 04/02 2246 98.9 60 20 126/44 97 Room Air Plan - Continue current management. - ESRD on HD- changed his diet to 3gm K diet as pt complaining of restrictions on his diet everyday. - Currently s/p AV fistula ligation on 03/27, will follow vascular recommmendations and will need suture removal on 04/06/17. - Interrogation complete, will transfer back to general medicine - Follow cardiology recommendations - Coumadin restarted-Given 7.5 mg on 04/02, will give 7.5 mg tonight on 04/03. f/u on INR. INR today is 1.94 - Follow nephrology recommendations - Follow up with social work and case management regarding placement to [facility]
[2017-04-03 22:59] VITALS: BP 126/50
[2017-04-04 07:33] VITALS: BP 120/68
--- NOTE | 2017-04-04 11:40 | PN- Nephrology ---
Assessment/Plan Assessment: entered in error Suggestion: entered in error Subjective Subjective: ntered in error Objective Vital Signs and I&Os Vital Signs Date Time Temp Pulse Resp B/P B/P Pulse O2 O2 Flow FiO2 Mean Ox Delivery Rate 05/08 1108 97.6 75 20 140/60 90 05/08 0944 99 Nasal 2.0L Cannula 05/08 0640 97.7 63 20 122/70 94 Room Air 05/08 0000 Nasal 3.0L Cannula 05/07 2253 98.7 66 20 136/50 94 Room Air 05/07 1600 02 05/07 1600 90 Room Air 05/07 1429 98.9 61 20 124/58 100 05/07 1146 93 Room Air Intake & Output 05/08 0400 05/07 0400 05/06 0400 Intake Total 30 100 100 Output Total 300 50 Balance 30 -200 50 Intake, Oral 30 100 100 Number 1 Bowel Movements Output, Stool 200 Output, Urine 100 50 Patient 185 lb 182 lb 186 lb 188 lb Weight Weight Standing Scale Standing Scale Standing Scale Standing Scale Measurement Method Results Pertinent Lab Results: Laboratory Tests 05/08 05/07 05/06 0800 0825 1700 Chemistry Sodium (137 - 145 mmol/L) 136 L Potassium (3.5 - 5.1 mmol/L) 4.5 Chloride (98 - 107 mmol/L) 98 Carbon Dioxide (22 - 30 mmol/L) 21 L Anion Gap (5 - 16) 17 H BUN (9 - 20 mg/dL) 63 H Creatinine (0.7 - 1.2 mg/dL) 5.2 *H Estimated GFR (>60 ml/min) 11 L BUN/Creatinine Ratio (7 - 25 %) 12.1 Glucose (65 - 99 mg/dL) 491 H Calcium (8.4 - 10.2 mg/dL) 8.7 Coagulation PT (9.4 - 12.5 SEC) 24.3 H 26.9 H INR (0.90 - 1.17) 2.33 H 2.59 H Hematology CBC w Diff MAN DIFF ORDERED WBC (4.8 - 10.8 /CUMM) 11.6 H RBC (4.70 - 6.10 /CUMM) 3.87 L Hgb (14.0 - 18.0 G/DL) 10.1 L Hct (42 - 52 %) 32.5 L MCV (80.0 - 94.0 FL) 83.9 MCH (27.0 - 31.0 PG) 26.0 L RDW (11.5 - 14.5 %) 21.8 H Plt Count (130 - 400 /CUMM) 97 L MPV (7.4 - 10.4 FL) 9.9 Gran % (42.2 - 75.2 %) 91.7 H Lymphocytes % (20.5 - 51.1 %) 4.2 L Monocytes % (1.7 - 9.3 %) 4.1 Eosinophils % (0 - 5 %) 0 Basophils % (0.0 - 2.0 %) 0 L Absolute Granulocytes (1.4 - 6.5 /CUMM) 10.7 H Absolute Lymphocytes (1.2 - 3.4 /CUMM) 0.5 L Absolute Monocytes (0.10 - 0.60 /CUMM) 0.5 Absolute Eosinophils (0.0 - 0.7 /CUMM) 0 Absolute Basophils (0.0 - 0.2 /CUMM) 0 Platelet Estimate (ADEQUATE) ADEQUATE Polychromasia 2+ Poikilocytosis 1+ Basophilic Stippling RARE Anisocytosis 1+ Ovalocytes FEW Cutler Cells RARE PUBS MCHC (33.0 - 37.0 G/DL) 31.0 L
--- NOTE | 2017-04-04 13:23 | PN- Att Addend ---
Attending Addendum Attending Brief Note 72M PMH COPD, ESRD on HD, paroxysmal atrial fibrillation on Coumadin, chronic diastolic CHF, T2DM, PVD, CAD, history of MGUS, neuropathy who was originally admitted with ischemic bowel which required resection and colostomy. Also with chronic left arm swelling since undergoing AV-fistula placement on 01/30/17. Currently patient is undergoing hemodialysis Monday per nephrology. He is awaiting for insurance paperwork to be completed so that he can be placed in a long term. Underwent fistulogram 03/27. Arm is significantly improved, as swelling has resolved and pain has nearly resolved. Desquamation is improving as well. Review of systems normal. AFVSS NAD NCAT Supple RRR Mild wheezes bilaterally Soft, NTND, ostomy clean No LE edema, LUE edematous, non-tender Pulses intact A&Ox3 no focal deficits Plan - Continue current management - Fistulogram complete, will follow vascular recommmendations - Interrogation complete, will transfer back to general medicine - Follow cardiology recommendations - Coumadin restarted - Follow nephrology recommendations - Follow up with social work and case management regarding placement to [facility]
--- NOTE | 2017-04-04 13:57 | NUR ---
NSG note: PATIENT LEFT FLOOR APPROX 1315 VIA BED TO DIALYSIS ACCOMPANIED BY DISTRIBUTION; PATIENT A/OX3, RA, NO COMPLAINTS; WILL CONT TO MONITOR
[2017-04-04 14:13] LABS: ABSOLUTE BASOPHIL COUNT 0 /CUMM (0.0-0.2); ABSOLUTE EOSINOPHIL COUNT 0.3 /CUMM (0.0-0.7); ABSOLUTE GRANULOCYTE CT 10.7 /CUMM (1.4-6.5); ABSOLUTE LYMPH COUNT 1.1 /CUMM (1.2-3.4); BASOPHIL % 0.3 % (0.0-2.0); EOSINOPHIL % 2.5 % (0-5); GRANULOCYTE % 81.6 % (42.2-75.2); MEAN CORPUSCULAR HGB CONC 31.6 G/DL (33.0-37.0); MEAN CORPUSCULAR VOLUME 85.5 FL (80.0-94.0); MEAN PLATELET VOLUME 8.6 FL (7.4-10.4); PLATELET COUNT 106 /CUMM (130-400); RBC DISTRIBUTION WIDTH 19.6 % (11.5-14.5); RED BLOOD CELL CT 3.63 /CUMM (4.70-6.10); WHITE BLOOD CELL COUNT 13.2 /CUMM (4.8-10.8)
[2017-04-04 14:17] LABS: PT 24.1 SEC (9.4-12.5)
--- NOTE | 2017-04-04 14:23 | PN- Nephrology ---
Assessment/Plan Assessment: ESRD - Routine dialysis today. Weight 86.5kg. Was dialyzed to 81kg on 04/01. Is eating well although with fluid on exam, 81kg is probably a reasonable EDW. Has a R chest wall SALMA cath which is being used for dialysis after his AVF had to be ligated (initially placed on 01/26/17). Sees Dr. Jackson from Vascular - will need to follow-up soon to establish new permanent access for dialysis. Ischemic bowel - s/p resection. Clinically seems OK. Anemia - Hg 9.8 - essentially at goal. 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 Suggestion: -HD today - 3.5L UF as tolerated -Epogen 4000U TIW -Calcitriol 0.25mcg TIW -f/u with Dr. Jackson on discharge re: new permanent access -Dispo planning Please call [phone] with ?'s Subjective Subjective: Pt seen and examined on dialysis c/o total body pain Breathing OK Objective Vital Signs and I&Os Vital Signs Date Time Temp Pulse Resp B/P B/P Pulse O2 O2 Flow FiO2 Mean Ox Delivery Rate 04/04 0809 96 Room Air 04/04 0800 Room Air 04/04 0733 97.8 59 20 120/68 96 Room Air 04/03 2259 99.3 60 20 126/50 96 Room Air 04/03 1940 96 Room Air 04/03 1534 98.8 60 20 126/58 97 Intake & Output 04/04 1600 04/04 0400 04/03 1600 04/03 0400 04/02 1600 04/02 0400 Intake Total 1380 890 700 920 240 Output Total 520 475 100 Balance 860 415 600 920 240 Intake, IV 0 Intake, Oral 1380 890 700 920 240 Number 1 Bowel Movements Output, Stool 20 400 Output, Urine 500 75 100 Patient 191 lb 187 lb 185 lb Weight Weight Standing Scale Standing Scale Measurement Method Physical Exam: Gen - OK appearing, cursing HEENT - supple CV - RRR, no m/r/g Chest - clear anteriorly Abd - soft, nontender Ext - trace edema, L hand s/p finger amputation Skin - some erythema/flaking of skin on L hand Neuro - AOX3, grossly nonfocal Current Medications: Current Medications Sig/Johnna Start time Last Medication Dose Route Stop Time Status Admin Acetaminophen 650 MG Q4P PRN 01/31 1100 AC 04/01 PO 1741 Albuterol Sulfate 2 PUF Q4P PRN 02/06 0800 AC 03/26 INH 1734 Albuterol Sulfate 3 ML EVERY 4 HRS/AWAKE 02/05 1600 AC 04/04 INH 1239 Allopurinol 100 MG DAILY 02/20 1818 AC 04/04 PO 0920 Benzocaine/Menthol 1 LAZARO Q2P PRN 03/31 2215 AC PO Calcitriol 0.25 MCG TuThSa PRN 03/04 0745 AC IV Colchicine 300 MCG QTHURS 03/09 1000 AC 03/30 PO 1448 Colchicine 300 MCG QSUN 03/05 0700 AC 04/02 PO 0527 Diclofenac Sodium 1 MAI 4 TIMES/DAY 02/05 1400 AC 04/03 TOP 1804 Epoetin Guzman 4,000 UNIT TuThSa PRN 03/04 0745 AC IV Furosemide 80 MG DAILY 02/08 1138 AC 04/04 PO 0920 Guaifenesin 600 MG Q12 02/16 1000 AC 04/04 PO 0920 Guaifenesin/ 10 ML Q6P PRN 02/22 2130 AC 03/10 Dextromethorphan PO 2218 Insulin Aspart 0 TIDAC/HS 03/16 0800 AC 04/04 SC 0920 Multivitamins 1 TAB DAILY 03/23 1000 AC 04/04 PO 0920 Omeprazole 40 MG DAILY AC 02/12 1200 AC 04/04 PO 0529 Oxycodone/ 1 TAB ONCE ONE 04/03 2115 DC 04/03 Acetaminophen PO 04/03 211 2121 Sodium Chloride 2 SPRAY Q4P PRN 01/31 0430 AC 02/05 CHULA 2133 Trazodone HCl 50 MG AT BEDTIME 01/30 2200 AC 04/03 PO 2122 Warfarin Sodium 7.5 MG COUMADIN 1700 ONE 04/04 1700 UNVr PO 04/04 1701 Warfarin Sodium 7.5 MG COUMADIN 1700 ONE 04/03 1700 DC 04/03 PO 04/03 1701 1804 Results Pertinent Lab Results: Laboratory Tests 04/04 04/03 04/02 1345 0734 1022 Chemistry Sodium Pending Potassium Pending Chloride Pending Carbon Dioxide Pending Anion Gap Pending BUN Pending Creatinine Pending BUN/Creatinine Ratio Pending Calcium Pending Coagulation PT (9.4 - 12.5 SEC) Pending 20.2 H 17.5 H INR (0.90 - 1.17) Pending 1.94 H 1.68 H Hematology CBC w Diff NO MAN DIFF REQ WBC (4.8 - 10.8 /CUMM) 13.2 H RBC (4.70 - 6.10 /CUMM) 3.63 L Hgb (14.0 - 18.0 G/DL) 9.8 L Hct (42 - 52 %) 31.0 L MCV (80.0 - 94.0 FL) 85.5 MCH (27.0 - 31.0 PG) 27.0 RDW (11.5 - 14.5 %) 19.6 H Plt Count (130 - 400 /CUMM) 106 L MPV (7.4 - 10.4 FL) 8.6 Gran % (42.2 - 75.2 %) 81.6 H Lymphocytes % (20.5 - 51.1 %) 8.2 L Monocytes % (1.7 - 9.3 %) 7.4 Eosinophils % (0 - 5 %) 2.5 Basophils % (0.0 - 2.0 %) 0.3 Absolute Granulocytes (1.4 - 6.5 /CUMM) 10.7 H Absolute Lymphocytes (1.2 - 3.4 /CUMM) 1.1 L Absolute Monocytes (0.10 - 0.60 /CUMM) 1.0 H Absolute Eosinophils (0.0 - 0.7 /CUMM) 0.3 Absolute Basophils (0.0 - 0.2 /CUMM) 0 PUBS MCHC (33.0 - 37.0 G/DL) 31.6 L Imaging/Other Studies: No recent imaging
[2017-04-04 18:00] VITALS: BP 120/60
--- NOTE | 2017-04-04 18:27 | NUR ---
NSG NOTE: PATIENT ARRIVED TO FLOOR AT APPROX 1800 VIA BED ACCOMPANIED BY DISTRIBUTION; SEE PATIENT VS DOCUMENTATION; BS OBTAINED; REPORT RECEIVED FROM CATHERINE DIALLO RN; WILL CONT TO MONITOR
[2017-04-04 22:02] VITALS: BP 132/50
[2017-04-05 06:35] VITALS: BP 132/68
[2017-04-05 08:18] LABS: PT 21.7 SEC (9.4-12.5)
--- NOTE | 2017-04-05 10:06 | PN- Att Addend ---
Attending Addendum Attending Brief Note 72M PMH COPD, ESRD on HD, paroxysmal atrial fibrillation on Coumadin, chronic diastolic CHF, T2DM, PVD, CAD, history of MGUS, neuropathy who was originally admitted with ischemic bowel which required resection and colostomy. Also with chronic left arm swelling since undergoing AV-fistula placement on 01/30/17. Currently patient is undergoing hemodialysis Monday per nephrology. He is awaiting for insurance paperwork to be completed so that he can be placed in a [facility]. Underwent fistulogram 03/27. Arm is significantly improved, as swelling has resolved and pain has nearly resolved. Desquamation is improving as well. Review of systems normal. AFVSS NAD NCAT Supple RRR Mild wheezes bilaterally Soft, NTND, ostomy clean No LE edema, LUE edematous, non-tender Pulses intact A&Ox3 no focal deficits Current Medications Sig/Johnna Start time Last Medication Dose Route Stop Time Status Admin Acetaminophen 650 MG .STK-MED ONE 04/05 0025 DC PO 04/05 0026 Acetaminophen 650 MG Q4P PRN 01/31 1100 AC 04/05 PO 0031 Albuterol Sulfate 2 PUF Q4P PRN 02/06 0800 AC 03/26 INH 1734 Albuterol Sulfate 3 ML EVERY 4 HRS/AWAKE 02/05 1600 AC 04/04 INH 2220 Allopurinol 100 MG DAILY 02/20 1818 AC 04/05 PO 0925 Benzocaine/Menthol 1 LAZARO Q2P PRN 03/31 2215 AC PO Calcitriol 0.25 MCG TuThSa PRN 03/04 0745 AC IV Colchicine 300 MCG QTHURS 03/09 1000 AC 03/30 PO 1448 Colchicine 300 MCG QSUN 03/05 0700 AC 04/02 PO 0527 Diclofenac Sodium 1 MAI 4 TIMES/DAY 02/05 1400 AC 04/05 TOP 0925 Epoetin Guzman 4,000 UNIT TuThSa PRN 03/04 0745 AC IV Furosemide 80 MG DAILY 02/08 1138 AC 04/05 PO 0924 Guaifenesin 600 MG Q12 02/16 1000 AC 04/05 PO 0925 Guaifenesin/ 10 ML Q6P PRN 02/22 2130 AC 03/10 Dextromethorphan PO 2218 Insulin Aspart 0 TIDAC/HS 03/16 0800 AC 04/05 SC 0854 Multivitamins 1 TAB DAILY 03/23 1000 AC 04/05 PO 0925 Omeprazole 40 MG DAILY AC 02/12 1200 AC 04/05 PO 0503 Oxycodone/ 1 TAB ONCE ONE 04/04 2130 DC 04/04 Acetaminophen PO 04/04 Ramelteon 8 MG ONCE ONE 04/04 2130 DC 04/04 PO 04/04 Sodium Chloride 2 SPRAY Q4P PRN 01/31 0430 AC 02/05 CHULA 2132 Trazodone HCl 50 MG AT BEDTIME 01/30 2200 AC 04/04 PO 2107 Warfarin Sodium 7.5 MG COUMADIN 1700 ONE 04/04 1700 DC 04/04 PO 04/04 170 210 Laboratory Tests 04/05 04/04 0700 1345 Chemistry Sodium (137 - 145 mmol/L) 136 L Potassium (3.5 - 5.1 mmol/L) 5.1 Chloride (98 - 107 mmol/L) 101 Carbon Dioxide (22 - 30 mmol/L) 21 L Anion Gap (5 - 16) 15 BUN (9 - 20 mg/dL) 65 H Creatinine (0.7 - 1.2 mg/dL) 6.0 *H Estimated GFR (>60 ml/min) 9 L BUN/Creatinine Ratio (7 - 25 %) 10.8 Calcium (8.4 - 10.2 mg/dL) 8.3 L Coagulation PT (9.4 - 12.5 SEC) 21.7 H 24.1 H INR (0.90 - 1.17) 2.08 H 2.31 H Hematology CBC w Diff NO MAN DIFF REQ WBC (4.8 - 10.8 /CUMM) 13.2 H RBC (4.70 - 6.10 /CUMM) 3.63 L Hgb (14.0 - 18.0 G/DL) 9.8 L Hct (42 - 52 %) 31.0 L MCV (80.0 - 94.0 FL) 85.5 MCH (27.0 - 31.0 PG) 27.0 RDW (11.5 - 14.5 %) 19.6 H Plt Count (130 - 400 /CUMM) 106 L MPV (7.4 - 10.4 FL) 8.6 Gran % (42.2 - 75.2 %) 81.6 H Lymphocytes % (20.5 - 51.1 %) 8.2 L Monocytes % (1.7 - 9.3 %) 7.4 Eosinophils % (0 - 5 %) 2.5 Basophils % (0.0 - 2.0 %) 0.3 Absolute Granulocytes (1.4 - 6.5 /CUMM) 10.7 H Absolute Lymphocytes (1.2 - 3.4 /CUMM) 1.1 L Absolute Monocytes (0.10 - 0.60 /CUMM) 1.0 H Absolute Eosinophils (0.0 - 0.7 /CUMM) 0.3 Absolute Basophils (0.0 - 0.2 /CUMM) 0 PUBS MCHC (33.0 - 37.0 G/DL) 31.6 L Plan - Continue current management - Fistulogram complete, will follow vascular recommmendations - Continue Coumadin - Follow nephrology recommendations - Follow up with social work and case management regarding placement to [facility]
--- NOTE | 2017-04-05 10:32 | PN- Psychiatry ---
See Addendum Assessment/Plan Impression: Identifying Info: 72-year-old male known to this service brought in by ambulance from dialysis to the emergency department on 01/28/2017 for abdominal pain and admitted to medicine. He has been on medicine continuously since that point and is currently waiting the results for title 19 application so he can be transferred to rehabilitation. Consult requested for depression. Of note, on 03/19/17 the patient found out that his 27-year-old son had suddenly in [place]. SUBJECTIVE "I think about him all the time... I still can't believe he's gone." Pt discusses plans for his son's memorial on Monday04/09/17. States he is nervous if he attends he will not be able to stay composed. Reports great sadness r/t his grandaughter who often played with her uncle. Expressing frustration r/t physical condition. Brief ROS Gait: Did not observe, pt reports poor Sleep: Adequate Appetite: Adequate OBJECTIVE Mental Status Exam Presentation/Appearance: Cooperative with evaluation. Hospital garb. Sitting in bed. Orientation: x4 Sensorium: Somnolent easily aroused Eye contact: Appropriate Affect: Tearfu throughout interview Mood: Dysphoric Depression: Endorses Anxiety: Endorses Thought Content: - Denies SI/HI, AH/VH, PI. States and also believes they will not kill themselves. - Endorses Hopeless/Helpless Thoughts Thought Process: Linear Associations: Appropriate Speech: Normal tone and rate Judgment: Intact Insight: Intact Cognition: Memory: Grossly intact Attention/Concentration: Grossly intact Fund of Knowledge: Adequate Abstractions: Did not assess MMSE: Did not assess ASSESSMENT 72-year-old male with a history of multiple chronic medical illnesses with frequent hospitalization as well as the recent of a son presents as depressed. He appears to be minimizing feelings of demoralization. He is able to express his feelings of loss well related to his son. He would benefit from continued guidance processing his current emotions. While he currently declines, he would also likely benefit from an antidepressant medication. 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 If possible, every effort should be made to involve the patient in memorial services for his son on 04/09/17. This has been discussed with nursing and social work. 2. We will continue to engage the patient. We will continue to encourage psychiatric follow-up. 3. Consider pastoral care consult. Thank you for including psychiatry in this case we'll follow on an ongoing basis Subjective Subjective: as above Objective Last 24 Hrs of Vital Signs/I&O Current Medications Sig/Johnna Start time Last Medication Dose Route Stop Time Status Admin Acetaminophen 650 MG .STK-MED ONE 04/05 0025 DC PO 04/05 0026 Acetaminophen 650 MG Q4P PRN 01/31 1100 AC 04/05 PO 0031 Albuterol Sulfate 2 PUF Q4P PRN 02/06 0800 AC 03/26 INH 1734 Albuterol Sulfate 3 ML EVERY 4 HRS/AWAKE 02/05 1600 AC 04/04 INH 2220 Allopurinol 100 MG DAILY 02/20 1818 AC 04/05 PO 0925 Benzocaine/Menthol 1 LAZARO Q2P PRN 03/31 2215 AC PO Calcitriol 0.25 MCG TuThSa PRN 03/04 0745 AC IV Colchicine 300 MCG QTHURS 03/09 1000 AC 03/30 PO 1448 Colchicine 300 MCG QSUN 03/05 0700 AC 04/02 PO 0527 Diclofenac Sodium 1 MAI 4 TIMES/DAY 02/05 1400 AC 04/05 TOP 0925 Epoetin Guzman 4,000 UNIT TuThSa PRN 03/04 0745 AC IV Furosemide 80 MG DAILY 02/08 1138 AC 04/05 PO 0924 Guaifenesin 600 MG Q12 02/16 1000 AC 04/05 PO 0925 Guaifenesin/ 10 ML Q6P PRN 02/22 2130 AC 03/10 Dextromethorphan PO 2218 Insulin Aspart 0 TIDAC/HS 03/16 0800 AC 04/05 SC 0854 Multivitamins 1 TAB DAILY 03/23 1000 AC 04/05 PO 0925 Omeprazole 40 MG DAILY AC 02/12 1200 AC 04/05 PO 0503 Oxycodone/ 1 TAB ONCE ONE 04/04 2130 DC 04/04 Acetaminophen PO 04/04 Ramelteon 8 MG ONCE ONE 04/04 2130 DC 04/04 PO 04/04 Sodium Chloride 2 SPRAY Q4P PRN 01/31 0430 AC 02/05 CHULA 2133 Trazodone HCl 50 MG AT BEDTIME 01/30 2200 AC 04/04 PO 210 Warfarin Sodium 7.5 MG COUMADIN 1700 ONE 04/05 1700 AC PO 04/05 170 Warfarin Sodium 7.5 MG COUMADIN 170 ONE 04/04 1700 DC 04/04 PO 04/04 1701 2108 Laboratory Tests 04/05/17 0700: PT 21.7 H, INR 2.08 H 04/04/17 1345: Anion Gap 15, Estimated GFR 9 L, BUN/Creatinine Ratio 10.8, Calcium 8.3 L, PT 24.1 H, INR 2.31 H, CBC w Diff NO MAN DIFF REQ, RBC 3.63 L, MCV 85.5, MCH 27.0, RDW 19.6 H, MPV 8.6, Gran % 81.6 H, Lymphocytes % 8.2 L, Monocytes % 7.4, Eosinophils % 2.5, Basophils % 0.3, Absolute Granulocytes 10.7 H, Absolute Lymphocytes 1.1 L, Absolute Monocytes 1.0 H, Absolute Eosinophils 0.3, Absolute Basophils 0, PUBS MCHC 31.6 L Vital Signs Date Time Temp Pulse Resp B/P B/P Pulse O2 O2 Flow FiO2 Mean Ox Delivery Rate 04/05 0819 92 Room Air Room Air 04/05 0635 98.5 60 20 132/68 96 Room Air 04/05 0033 100.0 04/04 2202 100.7 59 18 132/50 93 Room Air 04/04 2032 96 Room Air 04/04 1800 99.7 60 18 120/60 94 Room Air 04/04 1710 95 Room Air Intake & Output 04/05 1600 04/05 0800 04/05 0000 Intake Total 480 240 Output Total 250 Balance 480 -10 Intake, Oral 480 240 Output, Urine 250 Patient 185 lb Weight
--- NOTE | 2017-04-05 12:11 | PN- Nephrology ---
Assessment/Plan Assessment: ESRD - No need for dialysis today. Maintain EDW of 81kg. May need short session for UF only on Monday depending on weight and clinical status after dialysis tomorrow. Will need to be evaluated for alternate permanent access after his RADHA AVF had to be ligated (c/b occlusion of cephalic arch by pacemaker leads). Ischemic bowel - s/p resection. Clinically seems OK. Anemia - Hg 9.8 - essentially at goal. 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 Suggestion: -HD tomorrow -Epogen 4000U TIW -Calcitriol 0.25mcg TIW -Will need evaluation for new permanent access after discharge -Dispo planning Please call [phone] with ?'s Subjective Subjective: HD done yesterday Weight 84kg this AM Feeling OK today Objective Vital Signs and I&Os Vital Signs Date Time Temp Pulse Resp B/P B/P Pulse O2 O2 Flow FiO2 Mean Ox Delivery Rate 04/05 0819 92 Room Air Room Air 04/05 0635 98.5 60 20 132/68 96 Room Air 04/05 0033 100.0 04/04 2202 100.7 59 18 132/50 93 Room Air 04/04 2032 96 Room Air 04/04 1800 99.7 60 18 120/60 94 Room Air 04/04 1710 95 Room Air Intake & Output 04/05 1600 04/05 0400 04/04 1600 04/04 0400 04/03 1600 04/03 0400 Intake Total 392 949 6259 890 700 Output Total 250 520 475 100 Balance 480 -10 860 415 600 Intake, IV 0 Intake, Oral 633 612 2357 890 700 Output, Stool 20 400 Output, Urine 250 500 75 100 Patient 185 lb 191 lb 187 lb Weight Weight Standing Scale Measurement Method Physical Exam: Gen - NAD - much more pleasant today HEENT - supple CV - RRR, no m/r/g Chest - clear Abd - soft, nontender, ostomy x2 Ext - trace edema, L hand s/p finger amputation Skin - some erythema/flaking of skin on L hand Neuro - AOX3, grossly nonfocal Current Medications: Current Medications Sig/Johnna Start time Last Medication Dose Route Stop Time Status Admin Acetaminophen 650 MG .STK-MED ONE 04/05 0025 DC PO 04/05 0026 Acetaminophen 650 MG Q4P PRN 01/31 1100 AC 04/05 PO 0031 Albuterol Sulfate 2 PUF Q4P PRN 02/06 0800 AC 03/26 INH 1734 Albuterol Sulfate 3 ML EVERY 4 HRS/AWAKE 02/05 1600 AC 04/04 INH 2220 Allopurinol 100 MG DAILY 02/20 1818 AC 04/05 PO 0925 Benzocaine/Menthol 1 LAZARO Q2P PRN 03/31 2215 AC PO Calcitriol 0.25 MCG TuThSa PRN 03/04 0745 AC IV Colchicine 300 MCG QTHURS 03/09 1000 AC 03/30 PO 1448 Colchicine 300 MCG QSUN 03/05 0700 AC 04/02 PO 0527 Diclofenac Sodium 1 MAI 4 TIMES/DAY 02/05 1400 AC 04/05 TOP 0925 Epoetin Guzman 4,000 UNIT TuThSa PRN 03/04 0745 AC IV Furosemide 80 MG DAILY 02/08 1138 AC 04/05 PO 0924 Guaifenesin 600 MG Q12 02/16 1000 AC 04/05 PO 0925 Guaifenesin/ 10 ML Q6P PRN 02/22 2130 AC 03/10 Dextromethorphan PO 2218 Insulin Aspart 0 TIDAC/HS 03/16 0800 AC 04/05 SC 0854 Multivitamins 1 TAB DAILY 03/23 1000 AC 04/05 PO 0925 Omeprazole 40 MG DAILY AC 02/12 1200 AC 04/05 PO 0503 Oxycodone/ 1 TAB Q6P PRN 04/05 1100 AC Acetaminophen PO Oxycodone/ 1 TAB ONCE ONE 04/040 DC 04/04 Acetaminophen PO 04/04 213 212 Ramelteon 8 MG ONCE ONE 04/04 2130 DC 04/04 PO 04/04 213 212 Sodium Chloride 2 SPRAY Q4P PRN 01/31 0430 AC 02/05 CHULA 2133 Trazodone HCl 50 MG AT BEDTIME 01/30 2200 AC 04/04 PO 2108 Warfarin Sodium 7.5 MG COUMADIN 1700 ONE 04/05 1700 AC PO 04/05 1701 Warfarin Sodium 7.5 MG COUMADIN 1700 ONE 04/04 1700 DC 04/04 PO 04/04 1701 2108 Results Pertinent Lab Results: Laboratory Tests 04/05 04/04 04/03 0700 1345 0734 Chemistry Sodium (137 - 145 mmol/L) 136 L Potassium (3.5 - 5.1 mmol/L) 5.1 Chloride (98 - 107 mmol/L) 101 Carbon Dioxide (22 - 30 mmol/L) 21 L Anion Gap (5 - 16) 15 BUN (9 - 20 mg/dL) 65 H Creatinine (0.7 - 1.2 mg/dL) 6.0 *H Estimated GFR (>60 ml/min) 9 L BUN/Creatinine Ratio (7 - 25 %) 10.8 Calcium (8.4 - 10.2 mg/dL) 8.3 L Coagulation PT (9.4 - 12.5 SEC) 21.7 H 24.1 H 20.2 H INR (0.90 - 1.17) 2.08 H 2.31 H 1.94 H Hematology CBC w Diff NO MAN DIFF REQ WBC (4.8 - 10.8 /CUMM) 13.2 H RBC (4.70 - 6.10 /CUMM) 3.63 L Hgb (14.0 - 18.0 G/DL) 9.8 L Hct (42 - 52 %) 31.0 L MCV (80.0 - 94.0 FL) 85.5 MCH (27.0 - 31.0 PG) 27.0 RDW (11.5 - 14.5 %) 19.6 H Plt Count (130 - 400 /CUMM) 106 L MPV (7.4 - 10.4 FL) 8.6 Gran % (42.2 - 75.2 %) 81.6 H Lymphocytes % (20.5 - 51.1 %) 8.2 L Monocytes % (1.7 - 9.3 %) 7.4 Eosinophils % (0 - 5 %) 2.5 Basophils % (0.0 - 2.0 %) 0.3 Absolute Granulocytes (1.4 - 6.5 /CUMM) 10.7 H Absolute Lymphocytes (1.2 - 3.4 /CUMM) 1.1 L Absolute Monocytes (0.10 - 0.60 /CUMM) 1.0 H Absolute Eosinophils (0.0 - 0.7 /CUMM) 0.3 Absolute Basophils (0.0 - 0.2 /CUMM) 0 PUBS MCHC (33.0 - 37.0 G/DL) 31.6 L Imaging/Other Studies: No recent imaging
[2017-04-05 14:55] VITALS: BP 120/80
[2017-04-05 22:26] VITALS: BP 110/50
[2017-04-06 06:43] VITALS: BP 106/70
[2017-04-06 09:20] LABS: ABSOLUTE BASOPHIL COUNT 0.1 /CUMM (0.0-0.2); ABSOLUTE EOSINOPHIL COUNT 0.3 /CUMM (0.0-0.7); ABSOLUTE GRANULOCYTE CT 7.7 /CUMM (1.4-6.5); ABSOLUTE LYMPH COUNT 1.3 /CUMM (1.2-3.4); ABSOLUTE MONOCYTE COUNT 0.8 /CUMM (0.10-0.60); BASOPHIL % 0.5 % (0.0-2.0); GRANULOCYTE % 75.8 % (42.2-75.2); HEMATOCRIT 30.5 % (42-52); MEAN CORPUSCULAR HGB 26.6 PG (27.0-31.0); MEAN CORPUSCULAR HGB CONC 31.2 G/DL (33.0-37.0); MEAN CORPUSCULAR VOLUME 85.4 FL (80.0-94.0); MEAN PLATELET VOLUME 9.8 FL (7.4-10.4); PLATELET COUNT 123 /CUMM (130-400); RBC DISTRIBUTION WIDTH 19.4 % (11.5-14.5); RED BLOOD CELL CT 3.57 /CUMM (4.70-6.10); WHITE BLOOD CELL COUNT 10.2 /CUMM (4.8-10.8)
--- NOTE | 2017-04-06 10:50 | PN- Nephrology ---
Assessment/Plan Assessment: ESRD - Routine dialysis today. Maintain EDW of 81kg. Should be good without extra dialysis session tomorrow. Will need to be evaluated for alternate permanent access after his RADHA AVF had to be ligated (c/b occlusion of cephalic arch by pacemaker leads). Ischemic bowel - s/p resection. Clinically seems OK. Anemia - Hg 9.5 - May need to uptitrate Epogen if drops. 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 Suggestion: -HD today - UF to EDW of 81kg -Epogen 4000U TIW - may need to be uptitrated if Hg drops -Calcitriol 0.25mcg TIW -Will need evaluation for new permanent access after discharge -Dispo planning Please call [phone] with ?'s Subjective Subjective: Pt seen and examined on dialysis No specific complaints Objective Vital Signs and I&Os Vital Signs Date Time Temp Pulse Resp B/P B/P Pulse O2 O2 Flow FiO2 Mean Ox Delivery Rate 04/06 0643 98.5 61 20 106/70 95 Room Air 04/05 2226 98.1 57 20 110/50 94 Room Air 04/05 1937 98 Nasal 2.0L Cannula 04/05 1455 98.7 77 20 120/80 96 Intake & Output 04/06 1600 04/06 0400 04/05 1600 04/05 0400 04/04 1600 04/04 0400 Intake Total 400 8571 528 3580 Output Total 50 250 520 Balance 400 -50 1180 -10 860 Intake, IV 0 Intake, Oral 400 4187 042 7824 Number 1 Bowel Movements Output, Stool 20 Output, Urine 50 250 500 Patient 188 lb 185 lb 191 lb Weight Physical Exam: Gen - NAD - much more pleasant today HEENT - supple CV - RRR, no m/r/g Chest - clear Abd - soft, nontender, ostomy x2 Ext - trace edema, L hand s/p finger amputation Skin - some erythema/flaking of skin on L hand Neuro - AOX3, grossly nonfocal Current Medications: Current Medications Sig/Johnna Start time Last Medication Dose Route Stop Time Status Admin Acetaminophen 650 MG Q4P PRN 01/31 1100 AC 04/05 PO 0031 Albuterol Sulfate 2 PUF Q4P PRN 02/06 0800 AC 03/26 INH 1734 Albuterol Sulfate 3 ML EVERY 4 HRS/AWAKE 02/05 1600 AC 04/05 INH 1931 Allopurinol 100 MG DAILY 02/20 1818 AC 04/05 PO 0925 Benzocaine/Menthol 1 LAZARO Q2P PRN 03/31 2215 AC PO Calcitriol 0.25 MCG TuThSa PRN 03/04 0745 AC IV Colchicine 300 MCG QTHURS 03/09 1000 AC 03/30 PO 1448 Colchicine 300 MCG QSUN 03/05 0700 AC 04/02 PO 0527 Diclofenac Sodium 1 MAI 4 TIMES/DAY 02/05 1400 AC 04/05 TOP 2208 Epoetin Guzman 4,000 UNIT TuThSa PRN 03/04 0745 AC IV Furosemide 80 MG DAILY 02/08 1138 AC 04/05 PO 0924 Guaifenesin 600 MG Q12 02/16 1000 AC 04/05 PO 2208 Guaifenesin/ 10 ML Q6P PRN 02/22 2130 AC 03/10 Dextromethorphan PO 2218 Insulin Aspart 0 TIDAC/HS 03/16 0800 AC 04/05 SC 1221 Multivitamins 1 TAB DAILY 03/23 1000 AC 04/05 PO 0925 Omeprazole 40 MG DAILY AC 02/12 1200 AC 04/06 PO 0610 Oxycodone/ 1 TAB Q6P PRN 04/05 1100 AC Acetaminophen PO Sodium Chloride 2 SPRAY Q4P PRN 01/31 0430 AC 02/05 CHULA 2133 Trazodone HCl 50 MG AT BEDTIME 01/30 2200 AC 04/05 PO 2208 Warfarin Sodium 7.5 MG COUMADIN 1700 ONE 04/05 1700 DC 04/05 PO 04/05 1701 1635 Results Pertinent Lab Results: Laboratory Tests 04/06 04/05 0830 0700 Chemistry Sodium (137 - 145 mmol/L) 138 Potassium (3.5 - 5.1 mmol/L) 4.3 Chloride (98 - 107 mmol/L) 101 Carbon Dioxide (22 - 30 mmol/L) 24 Anion Gap (5 - 16) 14 BUN (9 - 20 mg/dL) 41 H Creatinine (0.7 - 1.2 mg/dL) 5.6 *H Estimated GFR (>60 ml/min) 10 L BUN/Creatinine Ratio (7 - 25 %) 7.3 Glucose (65 - 99 mg/dL) 135 H Calcium (8.4 - 10.2 mg/dL) 8.7 Phosphorus (2.5 - 4.5 mg/dL) 6.5 H Albumin (3.5 - 5.0 g/dL) 3.4 L Coagulation PT (9.4 - 12.5 SEC) 21.7 H INR (0.90 - 1.17) 2.08 H Hematology CBC w Diff NO MAN DIFF REQ WBC (4.8 - 10.8 /CUMM) 10.2 RBC (4.70 - 6.10 /CUMM) 3.57 L Hgb (14.0 - 18.0 G/DL) 9.5 L Hct (42 - 52 %) 30.5 L MCV (80.0 - 94.0 FL) 85.4 MCH (27.0 - 31.0 PG) 26.6 L RDW (11.5 - 14.5 %) 19.4 H Plt Count (130 - 400 /CUMM) 123 L MPV (7.4 - 10.4 FL) 9.8 Gran % (42.2 - 75.2 %) 75.8 H Lymphocytes % (20.5 - 51.1 %) 12.7 L Monocytes % (1.7 - 9.3 %) 8.0 Eosinophils % (0 - 5 %) 3.0 Basophils % (0.0 - 2.0 %) 0.5 Absolute Granulocytes (1.4 - 6.5 /CUMM) 7.7 H Absolute Lymphocytes (1.2 - 3.4 /CUMM) 1.3 Absolute Monocytes (0.10 - 0.60 /CUMM) 0.8 H Absolute Eosinophils (0.0 - 0.7 /CUMM) 0.3 Absolute Basophils (0.0 - 0.2 /CUMM) 0.1 PUBS MCHC (33.0 - 37.0 G/DL) 31.2 L 04/04 1345 Chemistry Sodium (137 - 145 mmol/L) 136 L Potassium (3.5 - 5.1 mmol/L) 5.1 Chloride (98 - 107 mmol/L) 101 Carbon Dioxide (22 - 30 mmol/L) 21 L Anion Gap (5 - 16) 15 BUN (9 - 20 mg/dL) 65 H Creatinine (0.7 - 1.2 mg/dL) 6.0 *H Estimated GFR (>60 ml/min) 9 L BUN/Creatinine Ratio (7 - 25 %) 10.8 Calcium (8.4 - 10.2 mg/dL) 8.3 L Coagulation PT (9.4 - 12.5 SEC) 24.1 H INR (0.90 - 1.17) 2.31 H Hematology CBC w Diff NO MAN DIFF REQ WBC (4.8 - 10.8 /CUMM) 13.2 H RBC (4.70 - 6.10 /CUMM) 3.63 L Hgb (14.0 - 18.0 G/DL) 9.8 L Hct (42 - 52 %) 31.0 L MCV (80.0 - 94.0 FL) 85.5 MCH (27.0 - 31.0 PG) 27.0 RDW (11.5 - 14.5 %) 19.6 H Plt Count (130 - 400 /CUMM) 106 L MPV (7.4 - 10.4 FL) 8.6 Gran % (42.2 - 75.2 %) 81.6 H Lymphocytes % (20.5 - 51.1 %) 8.2 L Monocytes % (1.7 - 9.3 %) 7.4 Eosinophils % (0 - 5 %) 2.5 Basophils % (0.0 - 2.0 %) 0.3 Absolute Granulocytes (1.4 - 6.5 /CUMM) 10.7 H Absolute Lymphocytes (1.2 - 3.4 /CUMM) 1.1 L Absolute Monocytes (0.10 - 0.60 /CUMM) 1.0 H Absolute Eosinophils (0.0 - 0.7 /CUMM) 0.3 Absolute Basophils (0.0 - 0.2 /CUMM) 0 PUBS MCHC (33.0 - 37.0 G/DL) 31.6 L Imaging/Other Studies: No new imaging
[2017-04-06 11:54] VITALS: BP 122/60
--- NOTE | 2017-04-06 13:59 | PN- Att Addend ---
Attending Addendum Attending Brief Note 72M PMH COPD, ESRD on HD, paroxysmal atrial fibrillation on Coumadin, chronic diastolic CHF, T2DM, PVD, CAD, history of MGUS, neuropathy who was originally admitted with ischemic bowel which required resection and colostomy. Also with chronic left arm swelling since undergoing AV-fistula placement on 01/30/17. Currently patient is undergoing hemodialysis Monday per nephrology. He is awaiting for insurance paperwork to be completed so that he can be placed in a long-term. Underwent fistulogram 03/27. Arm is significantly improved, as swelling has resolved and pain has nearly resolved. Desquamation is improving as well. Review of systems normal. AFVSS NAD NCAT Supple RRR Mild wheezes bilaterally Soft, NTND, ostomy clean No LE edema, LUE edematous, non-tender Pulses intact A&Ox3 no focal deficits Current Medications Sig/Johnna Start time Last Medication Dose Route Stop Time Status Admin Acetaminophen 650 MG Q4P PRN 01/31 1100 AC 04/05 PO 0031 Albuterol Sulfate 2 PUF Q4P PRN 02/06 0800 AC 03/26 INH 1734 Albuterol Sulfate 3 ML EVERY 4 HRS/AWAKE 02/05 1600 AC 04/06 INH 1200 Allopurinol 100 MG DAILY 02/20 1818 AC 04/06 PO 1249 Benzocaine/Menthol 1 LAZARO Q2P PRN 03/31 2215 AC PO Calcitriol 0.25 MCG TuThSa PRN 03/04 0745 AC IV Colchicine 300 MCG QTHURS 03/09 1000 AC 04/06 PO 1249 Colchicine 300 MCG QSUN 03/05 0700 AC 04/02 PO 0527 Diclofenac Sodium 1 MAI 4 TIMES/DAY 02/05 1400 AC 04/06 TOP 1000 Epoetin Guzman 4,000 UNIT TuThSa PRN 03/04 0745 AC IV Furosemide 80 MG DAILY 02/08 1138 AC 04/06 PO 1249 Guaifenesin 600 MG Q12 02/16 1000 AC 04/06 PO 1249 Guaifenesin/ 10 ML Q6P PRN 02/22 2130 AC 03/10 Dextromethorphan PO 2218 Insulin Aspart 0 TIDAC/HS 03/16 0800 AC 04/06 SC 1257 Multivitamins 1 TAB DAILY 03/23 1000 AC 04/06 PO 1249 Omeprazole 40 MG DAILY AC 02/12 1200 AC 04/06 PO 0610 Oxycodone/ 1 TAB Q6P PRN 04/05 1100 AC Acetaminophen PO Sodium Chloride 2 SPRAY Q4P PRN 01/31 0430 AC 02/05 CHULA 2133 Trazodone HCl 50 MG AT BEDTIME 01/30 2200 AC 04/05 PO 2208 Warfarin Sodium 7.5 MG COUMADIN 1700 ONE 04/05 1700 DC 04/05 PO 04/05 1701 1635 Laboratory Tests 04/06 04/06 1130 0830 Chemistry Sodium (137 - 145 mmol/L) 138 Potassium (3.5 - 5.1 mmol/L) 4.3 Chloride (98 - 107 mmol/L) 101 Carbon Dioxide (22 - 30 mmol/L) 24 Anion Gap (5 - 16) 14 BUN (9 - 20 mg/dL) 11 41 H Creatinine (0.7 - 1.2 mg/dL) 5.6 *H Estimated GFR (>60 ml/min) 10 L BUN/Creatinine Ratio (7 - 25 %) 7.3 Glucose (65 - 99 mg/dL) 135 H Calcium (8.4 - 10.2 mg/dL) 8.7 Phosphorus (2.5 - 4.5 mg/dL) 6.5 H Albumin (3.5 - 5.0 g/dL) 3.4 L Hematology CBC w Diff NO MAN DIFF REQ WBC (4.8 - 10.8 /CUMM) 10.2 RBC (4.70 - 6.10 /CUMM) 3.57 L Hgb (14.0 - 18.0 G/DL) 9.5 L Hct (42 - 52 %) 30.5 L MCV (80.0 - 94.0 FL) 85.4 MCH (27.0 - 31.0 PG) 26.6 L RDW (11.5 - 14.5 %) 19.4 H Plt Count (130 - 400 /CUMM) 123 L MPV (7.4 - 10.4 FL) 9.8 Gran % (42.2 - 75.2 %) 75.8 H Lymphocytes % (20.5 - 51.1 %) 12.7 L Monocytes % (1.7 - 9.3 %) 8.0 Eosinophils % (0 - 5 %) 3.0 Basophils % (0.0 - 2.0 %) 0.5 Absolute Granulocytes (1.4 - 6.5 /CUMM) 7.7 H Absolute Lymphocytes (1.2 - 3.4 /CUMM) 1.3 Absolute Monocytes (0.10 - 0.60 /CUMM) 0.8 H Absolute Eosinophils (0.0 - 0.7 /CUMM) 0.3 Absolute Basophils (0.0 - 0.2 /CUMM) 0.1 PUBS MCHC (33.0 - 37.0 G/DL) 31.2 L Plan - Continue current management - Fistulogram complete, will follow vascular recommmendations - Continue Coumadin - Follow nephrology recommendations - Follow up with social work and case management regarding placement to [facility]
[2017-04-06 14:02] VITALS: BP 120/77
[2017-04-06 22:18] VITALS: BP 118/60
[2017-04-07 07:05] VITALS: BP 126/60
[2017-04-07 08:20] LABS: PT 33.6 SEC (9.4-12.5)
--- NOTE | 2017-04-07 14:08 | PN- Nephrology ---
Assessment/Plan Assessment: ESRD - Stable to wait for dialysis tomorrow. Maintain EDW of 81kg. Will need to be evaluated for alternate permanent access after his RADHA AVF had to be ligated (c/b occlusion of cephalic arch by pacemaker leads). I spent a while today explaining to him the pathophysiology about what happened to his arm. He noted that he understands much better now and is not as angry. Ischemic bowel - s/p resection. Clinically seems OK. Anemia - Hg 9.5 - May need to uptitrate Epogen if drops. 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 Suggestion: -HD tomorrow - maintain EDW of 81kg -Epogen 4000U TIW - may need to be uptitrated if Hg drops -Calcitriol 0.25mcg TIW -Will need evaluation for new permanent access after discharge -Dispo planning Please call [phone] with ?'s Subjective Subjective: Dialysis yesterday No complaints today - overall feels better Objective Vital Signs and I&Os Vital Signs Date Time Temp Pulse Resp B/P B/P Pulse O2 O2 Flow FiO2 Mean Ox Delivery Rate 04/07 0812 98 Room Air Room Air 04/07 0705 98.0 61 20 126/60 96 Room Air / 2218 97.9 86 20 118/60 98 Room Air 04/06 2000 96 Room Air 04/06 1625 96 Room Air Intake & Output 04/07 1600 06/ 0400 04/06 1600 04/06 0400 04/05 1600 04/05 0400 Intake Total 480 707 265 8195 240 Output Total 3700 50 250 Balance 480 440 -3300 -50 1180 -10 Intake, Oral 480 962 702 4933 240 Number 2 Bowel Movements Output, 3500 Dialysate Output, Stool 200 Output, Urine 50 250 Patient 185 lb 180 lb 185 lb Weight Weight Standing Scale Measurement Method Physical Exam: Gen - pleasant today HEENT - supple CV - RRR, no m/r/g Chest - clear Abd - soft, nontender, ostomy x2 Ext - trace edema, L hand s/p finger amputation Skin - some erythema/flaking of skin on L hand Neuro - AOX3, grossly nonfocal Current Medications: Current Medications Sig/Johnna Start time Last Medication Dose Route Stop Time Status Admin Acetaminophen 650 MG Q4P PRN 01/31 1100 AC 04/05 PO 0031 Albuterol Sulfate 2 PUF Q4P PRN 02/06 0800 AC 03/26 INH 1734 Albuterol Sulfate 3 ML EVERY 4 HRS/AWAKE 02/05 1600 AC 04/07 INH 0810 Allopurinol 100 MG DAILY 02/20 1818 AC 04/07 PO 0736 Benzocaine/Menthol 1 LAZARO Q2P PRN 03/31 2215 AC PO Calcitriol 0.25 MCG TuThSa PRN 03/04 0745 AC IV Colchicine 300 MCG QTHURS 03/09 1000 AC 04/06 PO 1249 Colchicine 300 MCG QSUN 03/05 0700 AC 04/02 PO 0527 Diclofenac Sodium 1 MAI 4 TIMES/DAY 02/05 1400 AC 04/06 TOP 1000 Epoetin Guzman 4,000 UNIT TuThSa PRN 03/04 0745 AC IV Furosemide 80 MG DAILY 02/08 1138 AC 04/07 PO 0735 Guaifenesin 600 MG Q12 02/16 1000 AC 04/07 PO 0735 Guaifenesin/ 10 ML Q6P PRN 02/22 2130 AC 03/10 Dextromethorphan PO 2218 Insulin Aspart 0 TIDAC/HS 03/16 0800 AC 04/07 SC 0740 Multivitamins 1 TAB DAILY 03/23 1000 AC 04/07 PO 0735 Omeprazole 40 MG DAILY AC 02/12 1200 AC 04/07 PO 0553 Oxycodone/ 1 TAB Q6P PRN 04/05 1100 AC Acetaminophen PO Sodium Chloride 2 SPRAY Q4P PRN 01/31 0430 AC 02/05 CHULA 2133 Trazodone HCl 50 MG AT BEDTIME 01/30 2200 AC 04/06 PO 2126 Warfarin Sodium 7.5 MG COUMADIN 1700 ONE 04/06 1700 DC 04/06 PO 04/06 1701 1847 Results Pertinent Lab Results: Laboratory Tests 04/07 04/06 04/06 0645 1130 0830 Chemistry Sodium (137 - 145 mmol/L) 138 Potassium (3.5 - 5.1 mmol/L) 4.3 Chloride (98 - 107 mmol/L) 101 Carbon Dioxide (22 - 30 mmol/L) 24 Anion Gap (5 - 16) 14 BUN (9 - 20 mg/dL) 11 41 H Creatinine (0.7 - 1.2 mg/dL) 5.6 *H Estimated GFR (>60 ml/min) 10 L BUN/Creatinine Ratio (7 - 25 %) 7.3 Glucose (65 - 99 mg/dL) 135 H Calcium (8.4 - 10.2 mg/dL) 8.7 Phosphorus (2.5 - 4.5 mg/dL) 6.5 H Albumin (3.5 - 5.0 g/dL) 3.4 L Coagulation PT (9.4 - 12.5 SEC) 33.6 H INR (0.90 - 1.17) 3.24 H Hematology CBC w Diff NO MAN DIFF REQ WBC (4.8 - 10.8 /CUMM) 10.2 RBC (4.70 - 6.10 /CUMM) 3.57 L Hgb (14.0 - 18.0 G/DL) 9.5 L Hct (42 - 52 %) 30.5 L MCV (80.0 - 94.0 FL) 85.4 MCH (27.0 - 31.0 PG) 26.6 L RDW (11.5 - 14.5 %) 19.4 H Plt Count (130 - 400 /CUMM) 123 L MPV (7.4 - 10.4 FL) 9.8 Gran % (42.2 - 75.2 %) 75.8 H Lymphocytes % (20.5 - 51.1 %) 12.7 L Monocytes % (1.7 - 9.3 %) 8.0 Eosinophils % (0 - 5 %) 3.0 Basophils % (0.0 - 2.0 %) 0.5 Absolute Granulocytes (1.4 - 6.5 /CUMM) 7.7 H Absolute Lymphocytes (1.2 - 3.4 /CUMM) 1.3 Absolute Monocytes (0.10 - 0.60 /CUMM) 0.8 H Absolute Eosinophils (0.0 - 0.7 /CUMM) 0.3 Absolute Basophils (0.0 - 0.2 /CUMM) 0.1 PUBS MCHC (33.0 - 37.0 G/DL) 31.2 L 04/06 04/05 0600 0700 Coagulation PT (9.4 - 12.5 SEC) Cancelled 21.7 H INR (0.90 - 1.17) Cancelled 2.08 H Imaging/Other Studies: No new imaging
[2017-04-07 15:31] VITALS: BP 124/60
--- NOTE | 2017-04-07 15:47 | PN- Psychiatry ---
Assessment/Plan Impression: Identifying Info: 72-year-old male known to this service brought in by ambulance from dialysis to the emergency department on 01/28/2017 for abdominal pain and admitted to medicine. He has been on medicine continuously since that point and is currently waiting the results for title 19 application so he can be transferred to rehabilitation. Consult requested for depression. Of note, on 03/19/17 the patient found out that his 27-year-old son had suddenly in [place]. SUBJECTIVE "It should have been me instead of him." Pt discusses plans for his son's memorial this Monday. Reminisces about son's childhood as well as conversation he had with the sleeve presser operator about what she should say during service. Continues to endorse some anxiety regarding keeping his composure as well as attending with his ostomies place. Brief ROS Gait: Did not observe, pt reports poor Sleep: Adequate Appetite: Adequate OBJECTIVE Mental Status Exam Presentation/Appearance: Cooperative with evaluation. Hospital garb. Sitting in bed. Orientation: x4 Sensorium: Awake and alert Eye contact: Appropriate Affect: Full range with tearfulness at times but less than previous meeting Mood: Dysphoric Depression: Endorses Anxiety: Endorses Thought Content: - Denies SI/HI, AH/VH, PI. States and also believes they will not kill themselves. - Endorses Hopeless/Helpless Thoughts Thought Process: Linear Associations: Appropriate Speech: Normal tone and rate Judgment: Intact Insight: Intact Cognition: Memory: Grossly intact Attention/Concentration: Grossly intact Fund of Knowledge: Adequate Abstractions: Did not assess MMSE: Did not assess ASSESSMENT 72-year-old male with a history of multiple chronic medical illnesses with frequent hospitalization as well as the recent of a son presents as depressed. While he currently declines, he would likely benefit from an antidepressant medication. It is agreeable to continuing meetings with AUTOMOTIVE CUSTOMER EXPERIENCE ADVISOR. 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 Patient to attend [facility] services for his son on 04/09/17. 2. We will continue to engage the patient. We will continue to encourage psychiatric follow-up. 3. Consider pastoral care consult. Thank you for including psychiatry in this case we'll follow on an ongoing basis Subjective Subjective: as above Objective Last 24 Hrs of Vital Signs/I&O Current Medications Sig/Johnna Start time Last Medication Dose Route Stop Time Status Admin Acetaminophen 650 MG Q4P PRN 01/31 1100 AC 04/05 PO 0031 Albuterol Sulfate 2 PUF Q4P PRN 02/06 0800 AC 03/26 INH 1734 Albuterol Sulfate 3 ML EVERY 4 HRS/AWAKE 02/05 1600 AC 04/07 INH 0810 Allopurinol 100 MG DAILY 02/20 1818 AC 04/07 PO 0736 Benzocaine/Menthol 1 LAZARO Q2P PRN 03/31 2215 AC PO Calcitriol 0.25 MCG TuThSa PRN 03/04 0745 AC IV Colchicine 300 MCG QTHURS 03/09 1000 AC 04/06 PO 1249 Colchicine 300 MCG QSUN 03/05 0700 AC 04/02 PO 0527 Diclofenac Sodium 1 MAI 4 TIMES/DAY 02/05 1400 AC 04/06 TOP 1000 Epoetin Guzman 4,000 UNIT TuThSa PRN 03/04 0745 AC IV Furosemide 80 MG DAILY 02/08 1138 AC 04/07 PO 0735 Guaifenesin 600 MG Q12 02/16 1000 AC 04/07 PO 0735 Guaifenesin/ 10 ML Q6P PRN 02/22 2130 AC 03/10 Dextromethorphan PO 2218 Insulin Aspart 0 TIDAC/HS 03/16 0800 AC 04/07 SC 0740 Multivitamins 1 TAB DAILY 03/23 1000 AC 04/07 PO 0735 Omeprazole 40 MG DAILY AC 02/12 1200 AC 04/07 PO 0553 Oxycodone/ 1 TAB Q6P PRN 04/05 1100 AC Acetaminophen PO Sodium Chloride 2 SPRAY Q4P PRN 01/31 0430 AC 02/05 CHULA 2133 Trazodone HCl 50 MG AT BEDTIME 01/30 2200 AC 04/06 PO 2126 Warfarin Sodium 7.5 MG COUMADIN 1700 ONE 04/06 1700 DC 04/06 PO 04/06 1701 1847 Laboratory Tests 04/07/17 0645: PT 33.6 H, INR 3.24 H Vital Signs Date Time Temp Pulse Resp B/P B/P Pulse O2 O2 Flow FiO2 Mean Ox Delivery Rate 04/07 1531 98.0 86 20 124/60 97 Room Air 04/07 0812 98 Room Air Room Air 04/07 0705 98.0 61 20 126/60 96 Room Air 04/06 2218 97.9 86 20 118/60 98 Room Air 04/06 2000 96 Room Air 04/06 1625 96 Room Air Intake & Output 04/07 1600 04/07 0800 04/07 0000 Intake Total 480 440 Output Total Balance 480 440 Intake, Oral 480 440 Patient 185 lb Weight Weight Standing Scale Measurement Method
--- NOTE | 2017-04-07 18:51 | PN- Att Addend ---
Attending Addendum Attending Brief Note 72M PMH COPD, ESRD on HD, paroxysmal atrial fibrillation on Coumadin, chronic diastolic CHF, T2DM, PVD, CAD, history of MGUS, neuropathy who was originally admitted with ischemic bowel which required resection and colostomy. Also with chronic left arm swelling since undergoing AV-fistula placement on 01/30/17. Currently patient is undergoing hemodialysis Monday per nephrology. He is awaiting for insurance paperwork to be completed so that he can be placed in a [facility]. Underwent fistulogram 03/27. Arm is significantly improved, as swelling has resolved and pain has nearly resolved. Desquamation is improving as well. Review of systems normal. AFVSS NAD NCAT Supple RRR Mild wheezes bilaterally Soft, NTND, ostomy clean No LE edema, LUE edematous, non-tender Pulses intact A&Ox3 no focal deficits Current Medications Sig/Johnna Start time Last Medication Dose Route Stop Time Status Admin Acetaminophen 650 MG Q4P PRN 01/31 1100 AC 04/05 PO 0031 Albuterol Sulfate 2 PUF Q4P PRN 02/06 0800 AC 03/26 INH 1734 Albuterol Sulfate 3 ML EVERY 4 HRS/AWAKE 02/05 1600 AC 04/07 INH 0810 Allopurinol 100 MG DAILY 02/20 1818 AC 04/07 PO 0736 Benzocaine/Menthol 1 LAZARO Q2P PRN 03/31 2215 AC PO Calcitriol 0.25 MCG TuThSa PRN 03/04 0745 AC IV Colchicine 300 MCG QTHURS 03/09 1000 AC 04/06 PO 1249 Colchicine 300 MCG QSUN 03/05 0700 AC 04/02 PO 0527 Diclofenac Sodium 1 MAI 4 TIMES/DAY 02/05 1400 AC 04/07 TOP 1800 Epoetin Guzman 4,000 UNIT TuThSa PRN 03/04 0745 AC IV Furosemide 80 MG DAILY 02/08 1138 AC 04/07 PO 0735 Guaifenesin 600 MG Q12 02/16 1000 AC 04/07 PO 0735 Guaifenesin/ 10 ML Q6P PRN 02/22 2130 AC 03/10 Dextromethorphan PO 2218 Insulin Aspart 0 TIDAC/HS 03/16 0800 AC 04/07 SC 1757 Multivitamins 1 TAB DAILY 03/23 1000 AC 04/07 PO 0735 Omeprazole 40 MG DAILY AC 02/12 1200 AC 04/07 PO 0553 Oxycodone/ 1 TAB Q6P PRN 04/05 1100 AC Acetaminophen PO Sodium Chloride 2 SPRAY Q4P PRN 01/31 0430 AC 02/05 CHULA 2133 Trazodone HCl 50 MG AT BEDTIME 01/30 2200 AC 04/06 PO 2126 Laboratory Tests 04/07 0645 Coagulation PT (9.4 - 12.5 SEC) 33.6 H INR (0.90 - 1.17) 3.24 H Plan - Continue current management - Fistulogram complete, will follow vascular recommmendations - Continue Coumadin - Follow nephrology recommendations - Follow up with social work and case management regarding placement to [facility] - Patient will be leaving the hospital on Monday04/09/17 to attend his son's memorial service. His family will pick him up and bring him back after the service.
[2017-04-07 22:57] VITALS: BP 116/60
[2017-04-08 06:29] VITALS: BP 118/54
--- NOTE | 2017-04-08 12:51 | PN- Nephrology ---
Assessment/Plan Assessment: Significant peripheral edema. Suggestion: UF 3-4 liters today with dialysis. Subjective Subjective: No complaints, denies SOB. Objective Vital Signs and I&Os Vital Signs Date Time Temp Pulse Resp B/P B/P Pulse O2 O2 Flow FiO2 Mean Ox Delivery Rate 04/08 0748 97 Room Air Room Air 04/08 0629 98.1 62 16 118/54 95 Room Air 04/07 2257 98.7 60 20 116/60 96 Room Air 04/07 1605 98 Room Air Room Air 04/07 1531 98.0 86 20 124/60 97 Room Air Intake & Output 04/08 1600 04/08 0400 04/07 1600 04/07 0400 04/06 1600 04/06 0400 Intake Total 200 480 480 440 400 Output Total 601 786 1004 50 Balance -300 180 480 440 -3300 -50 Intake, Oral 200 480 480 440 400 Number 1 1 2 Bowel Movements Output, 3500 Dialysate Output, Stool 300 300 200 Output, Urine 200 50 Patient 188 lb 185 lb 180 lb Weight Weight Standing Scale Standing Scale Measurement Method Physical Exam: NAD VS as above Lungs: clear CV: no rub Abd: obese, nontender Exts: 2+ edema Neuro: A&O Current Medications: Current Medications Sig/Johnna Start time Last Medication Dose Route Stop Time Status Admin Acetaminophen 650 MG Q4P PRN 01/31 1100 AC 04/05 PO 0031 Albuterol Sulfate 2 PUF Q4P PRN 02/06 0800 AC 03/26 INH 1734 Albuterol Sulfate 3 ML EVERY 4 HRS/AWAKE 02/05 1600 AC 04/08 INH 0744 Allopurinol 100 MG DAILY 02/20 1818 AC 04/07 PO 0736 Benzocaine/Menthol 1 LAZARO Q2P PRN 03/31 2215 AC PO Calcitriol 0.25 MCG TuThSa PRN 03/04 0745 AC IV Calcium Carbonate 500 MG BID PRN 04/08 1145 AC 04/08 PO 1208 Colchicine 300 MCG QTHURS 03/09 1000 AC 04/06 PO 1249 Colchicine 300 MCG QSUN 03/05 0700 AC 04/02 PO 0527 Diclofenac Sodium 1 MAI 4 TIMES/DAY 02/05 1400 AC 04/08 TOP 1132 Epoetin Guzman 4,000 UNIT TuThSa PRN 03/04 0745 AC IV Furosemide 80 MG DAILY 02/08 1138 AC 04/07 PO 0735 Guaifenesin 600 MG Q12 02/16 1000 AC 04/07 PO 2209 Guaifenesin/ 10 ML Q6P PRN 02/22 2130 AC 03/10 Dextromethorphan PO 221 Insulin Aspart 0 TIDAC/HS 03/16 0800 AC 04/08 SC 1208 Multivitamins 1 TAB DAILY 03/23 1000 AC 04/07 PO 0735 Omeprazole 40 MG DAILY AC 02/12 1200 AC 04/08 PO 0538 Oxycodone/ 1 TAB Q6P PRN 04/05 1100 AC 04/07 Acetaminophen PO 221 Sodium Chloride 2 SPRAY Q4P PRN 01/31 0430 AC 02/05 CHULA 2133 Trazodone HCl 50 MG AT BEDTIME 01/30 2200 AC 04/07 PO 220 Results Pertinent Lab Results: Laboratory Tests 04/07 04/06 04/06 0645 1130 0830 Chemistry Sodium (137 - 145 mmol/L) 138 Potassium (3.5 - 5.1 mmol/L) 4.3 Chloride (98 - 107 mmol/L) 101 Carbon Dioxide (22 - 30 mmol/L) 24 Anion Gap (5 - 16) 14 BUN (9 - 20 mg/dL) 11 41 H Creatinine (0.7 - 1.2 mg/dL) 5.6 *H Estimated GFR (>60 ml/min) 10 L BUN/Creatinine Ratio (7 - 25 %) 7.3 Glucose (65 - 99 mg/dL) 135 H Calcium (8.4 - 10.2 mg/dL) 8.7 Phosphorus (2.5 - 4.5 mg/dL) 6.5 H Albumin (3.5 - 5.0 g/dL) 3.4 L Coagulation PT (9.4 - 12.5 SEC) 33.6 H INR (0.90 - 1.17) 3.24 H Hematology CBC w Diff NO MAN DIFF REQ WBC (4.8 - 10.8 /CUMM) 10.2 RBC (4.70 - 6.10 /CUMM) 3.57 L Hgb (14.0 - 18.0 G/DL) 9.5 L Hct (42 - 52 %) 30.5 L MCV (80.0 - 94.0 FL) 85.4 MCH (27.0 - 31.0 PG) 26.6 L RDW (11.5 - 14.5 %) 19.4 H Plt Count (130 - 400 /CUMM) 123 L MPV (7.4 - 10.4 FL) 9.8 Gran % (42.2 - 75.2 %) 75.8 H Lymphocytes % (20.5 - 51.1 %) 12.7 L Monocytes % (1.7 - 9.3 %) 8.0 Eosinophils % (0 - 5 %) 3.0 Basophils % (0.0 - 2.0 %) 0.5 Absolute Granulocytes (1.4 - 6.5 /CUMM) 7.7 H Absolute Lymphocytes (1.2 - 3.4 /CUMM) 1.3 Absolute Monocytes (0.10 - 0.60 /CUMM) 0.8 H Absolute Eosinophils (0.0 - 0.7 /CUMM) 0.3 Absolute Basophils (0.0 - 0.2 /CUMM) 0.1 PUBS MCHC (33.0 - 37.0 G/DL) 31.2 L / 0600 Coagulation PT Cancelled INR Cancelled
[2017-04-08 14:24] VITALS: BP 120/60
[2017-04-08 17:44] LABS: ABSOLUTE BASOPHIL COUNT 0 /CUMM (0.0-0.2); ABSOLUTE EOSINOPHIL COUNT 0.4 /CUMM (0.0-0.7); ABSOLUTE GRANULOCYTE CT 8.6 /CUMM (1.4-6.5); ABSOLUTE LYMPH COUNT 1.7 /CUMM (1.2-3.4); ABSOLUTE MONOCYTE COUNT 0.7 /CUMM (0.10-0.60); BASOPHIL % 0.4 % (0.0-2.0); EOSINOPHIL % 3.7 % (0-5); GRANULOCYTE % 75.6 % (42.2-75.2); HEMATOCRIT 31.8 % (42-52); MEAN CORPUSCULAR HGB CONC 31.3 G/DL (33.0-37.0); MEAN CORPUSCULAR VOLUME 86.3 FL (80.0-94.0); MEAN PLATELET VOLUME 9.1 FL (7.4-10.4); PLATELET COUNT 137 /CUMM (130-400); RBC DISTRIBUTION WIDTH 19.7 % (11.5-14.5); RED BLOOD CELL CT 3.69 /CUMM (4.70-6.10); WHITE BLOOD CELL COUNT 11.4 /CUMM (4.8-10.8)
--- NOTE | 2017-04-08 17:48 | PN- Att Addend ---
Attending Addendum Attending Brief Note 72M PMH COPD, ESRD on HD- , , Sat, paroxysmal atrial fibrillation on Coumadin, chronic diastolic CHF, T2DM, PVD, CAD, history of MGUS, neuropathy who was originally admitted with ischemic bowel which required resection and colostomy. Also with chronic left arm swelling since undergoing AV-fistula placement on 01/30/17. Currently patient is undergoing hemodialysis Monday per nephrology. He is awaiting for insurance paperwork to be completed so that he can be placed in a care home. Underwent fistulogram 03/27. Arm is significantly improved, as swelling has resolved and pain has nearly resolved. Desquamation is improving as well. We have restarted the patient on Coumadin. Review of systems normal- No fever, no chills, no chest pain, no sob, no nausea, no vomiting, no confusion, says has good appetite. Patient in no acute distress. Neck supple no lymphadenopath. heart- RRR Mild wheezes bilaterally Soft, NTND, ostomy site clean No LE edema, LUE edematous, non-tender Pulses intact A&Ox3 no focal deficits Laboratory Tests 04/08/17 1712: Sodium Pending, Potassium Pending, Chloride Pending, Carbon Dioxide Pending, Anion Gap Pending, BUN Pending, Creatinine Pending, BUN/Creatinine Ratio Pending , Calcium Pending, PT Pending, INR Pending, CBC w Diff Pending, WBC Pending, RBC Pending, Hgb Pending, Hct Pending, MCV Pending, MCH Pending, RDW Pending, Plt Count Pending, MPV Pending, PUBS MCHC Pending Vital Signs Date Time Temp Pulse Resp B/P B/P Pulse O2 O2 Flow FiO2 Mean Ox Delivery Rate 04/08 1605 94 Room Air 04/08 1424 98.2 77 20 120/60 96 06/ 0748 97 Room Air Room Air / 0629 98.1 62 16 118/54 95 Room Air / 2257 98.7 60 20 116/60 96 Room Air Plan - Continue current management. - ESRD on HD- Going for HD today. will get his INR checked over there. - Currently s/p AV fistula ligation on 03/27, will follow vascular recommmendations and will need suture removal in the next day or two. - INR pending- will dose coumadin accordingly. - Dyspepsia- ordered prn tums for him.
[2017-04-08 22:21] VITALS: BP 118/58
--- NOTE | 2017-04-08 23:58 | NUR ---
RECEIVED REPORT FROM ANA MARÍA (DIALYSIS NURSE). PATIENT TOLERATED DIALYSIS WELL. 3.5 LITERS TAKEN OUT. PATIENT RETURNED TO FLOOR ALERT AND ORIENTED. STATED HE WANTED TO GO TO SLEEP. BEDTIME MEDICATION GIVEN WITHOUT ANY DIFICULTY. CALL LIGHT WITHIN REACH.
[2017-04-09 07:03] VITALS: BP 102/50
[2017-04-09 09:07] LABS: PT 25.1 SEC (9.4-12.5)
--- NOTE | 2017-04-09 13:17 | NUR ---
PT LEFT HOSPITAL WITH FAMILY MEMBER AT THIS TIME TO SON'S . WRISTBAND STILL IN PLACE. WILL CONTINUE TO MONITOR.
--- NOTE | 2017-04-09 15:21 | PN- Att Addend ---
Attending Addendum Attending Brief Note 72M PMH COPD, ESRD on HD- , , Sat, paroxysmal atrial fibrillation on Coumadin, chronic diastolic CHF, T2DM, PVD, CAD, history of MGUS, neuropathy who was originally admitted with ischemic bowel which required resection and colostomy. Also with chronic left arm swelling since undergoing AV-fistula placement on 01/30/17. Currently patient is undergoing hemodialysis Monday per nephrology. He is awaiting for insurance paperwork to be completed so that he can be placed in a [facility]. Underwent fistulogram 03/27. Arm is significantly improved, as swelling has resolved and pain has nearly resolved. Desquamation is improving as well. We have restarted the patient on Coumadin. Review of systems normal- No fever, no chills, no chest pain, no sob, no nausea, no vomiting, no confusion, says has good appetite. Patient in no acute distress. Neck supple no lymphadenopath. heart- RRR Mild wheezes bilaterally Soft, NTND, ostomy site clean No LE edema, LUE edematous, non-tender Pulses intact A&Ox3 no focal deficits Laboratory Tests 04/09/17 0806: PT 25.1 H, INR 2.41 H 04/08/17 2042: PT 29.0 H, INR 2.79 H 04/08/17 1712: Anion Gap 13, Estimated GFR 11 L, BUN/Creatinine Ratio 7.2, Calcium 8.6, CBC w Diff NO MAN DIFF REQ, RBC 3.69 L, MCV 86.3, MCH 27.0, RDW 19.7 H, MPV 9.1, Gran % 75.6 H, Lymphocytes % 14.5 L, Monocytes % 5.8, Eosinophils % 3.7, Basophils % 0.4, Absolute Granulocytes 8.6 H, Absolute Lymphocytes 1.7, Absolute Monocytes 0.7 H, Absolute Eosinophils 0.4, Absolute Basophils 0, PUBS MCHC 31.3 L Vital Signs Date Time Temp Pulse Resp B/P B/P Pulse O2 O2 Flow FiO2 Mean Ox Delivery Rate 04/09 813 96 Room Air 04/09 0800 Room Air 04/09 0703 97.8 60 20 102/50 93 Room Air 04/08 2221 98.1 61 20 118/58 93 Room Air 04/08 1605 94 Room Air Plan - Continue current management. - ESRD on HD- Cont on HD . Nephro following. - Currently s/p AV fistula ligation on 03/27, will follow vascular recommmendations and will need suture removal in the next day or two. - INR today is 2.41. We will give 5 mg of Coumadin. We will recheck INR tomorrow. - Dyspepsia- ordered prn tums for him.
[2017-04-09 16:00] VITALS: BP 118/60
--- NOTE | 2017-04-09 22:19 | NUR ---
PATIENT RETURNED FROM HIS SON'S [facility] SERVICE ALERT AND ORIENTED. COLOSTOMY BAG AND APPLIANCE WAS CHANGED. NO COMPLAINT AT THIS TIME. CALL LIGHT WITHIN REACH.
[2017-04-09 22:31] VITALS: BP 118/62
[2017-04-10 06:49] VITALS: BP 118/52
[2017-04-10 08:16] LABS: PT 24.3 SEC (9.4-12.5)
[2017-04-10 10:45] VITALS: BP 120/50
--- NOTE | 2017-04-10 13:30 | PN- Nephrology ---
Assessment/Plan Assessment: PT comfortable. now s/p left AVF removal. Dialysis tomorrow via [facility]. Suggestion: . Subjective Subjective: PT comfortable. Arm less edematous (still so). Objective Vital Signs and I&Os Vital Signs 120/50 Lungs clear Cor RRR Abd soft Ext left arm pos edema. Suture site clean Results Pertinent Lab Results: Laboratory Tests 04/10 04/09 04/08 0730 0806 2042 Coagulation PT (9.4 - 12.5 SEC) 24.3 H 25.1 H 29.0 H INR (0.90 - 1.17) 2.33 H 2.41 H 2.79 H 04/08 1712 Chemistry Sodium (137 - 145 mmol/L) 136 L Potassium (3.5 - 5.1 mmol/L) 4.9 Chloride (98 - 107 mmol/L) 101 Carbon Dioxide (22 - 30 mmol/L) 23 Anion Gap (5 - 16) 13 BUN (9 - 20 mg/dL) 38 H Creatinine (0.7 - 1.2 mg/dL) 5.3 *H Estimated GFR (>60 ml/min) 11 L BUN/Creatinine Ratio (7 - 25 %) 7.2 Calcium (8.4 - 10.2 mg/dL) 8.6 Hematology CBC w Diff NO MAN DIFF REQ WBC (4.8 - 10.8 /CUMM) 11.4 H RBC (4.70 - 6.10 /CUMM) 3.69 L Hgb (14.0 - 18.0 G/DL) 10.0 L Hct (42 - 52 %) 31.8 L MCV (80.0 - 94.0 FL) 86.3 MCH (27.0 - 31.0 PG) 27.0 RDW (11.5 - 14.5 %) 19.7 H Plt Count (130 - 400 /CUMM) 137 MPV (7.4 - 10.4 FL) 9.1 Gran % (42.2 - 75.2 %) 75.6 H Lymphocytes % (20.5 - 51.1 %) 14.5 L Monocytes % (1.7 - 9.3 %) 5.8 Eosinophils % (0 - 5 %) 3.7 Basophils % (0.0 - 2.0 %) 0.4 Absolute Granulocytes (1.4 - 6.5 /CUMM) 8.6 H Absolute Lymphocytes (1.2 - 3.4 /CUMM) 1.7 Absolute Monocytes (0.10 - 0.60 /CUMM) 0.7 H Absolute Eosinophils (0.0 - 0.7 /CUMM) 0.4 Absolute Basophils (0.0 - 0.2 /CUMM) 0 PUBS MCHC (33.0 - 37.0 G/DL) 31.3 L
[2017-04-10 14:11] VITALS: BP 96/50
--- NOTE | 2017-04-10 16:05 | NUR ---
Met with patient this am. He had been allowed out of hospital yesterday to attend the [facility] service for his son, Monster. He expressed appropriate sadness and grief while discussing this event; emotional support offered. Call placed to DSS worker Ms. Watson to check on status [facility]. She is still awaiting statements back from [employer]. This information was shared with patient, who is longing to be discharged. Follow.
[2017-04-10 22:23] VITALS: BP 93/60
[2017-04-11 06:55] VITALS: BP 100/60
--- NOTE | 2017-04-11 08:15 | NUR ---
TO DIALYSIS VIA HOSPITAL BED. ALERT AND ORIENTED X3.
[2017-04-11 09:27] LABS: ABSOLUTE BASOPHIL COUNT 0.1 /CUMM (0.0-0.2); ABSOLUTE EOSINOPHIL COUNT 0.3 /CUMM (0.0-0.7); ABSOLUTE GRANULOCYTE CT 8.8 /CUMM (1.4-6.5); ABSOLUTE LYMPH COUNT 1.3 /CUMM (1.2-3.4); ABSOLUTE MONOCYTE COUNT 0.8 /CUMM (0.10-0.60); BASOPHIL % 0.5 % (0.0-2.0); EOSINOPHIL % 2.7 % (0-5); GRANULOCYTE % 77.9 % (42.2-75.2); HEMATOCRIT 29.5 % (42-52); MEAN CORPUSCULAR HGB 26.7 PG (27.0-31.0); MEAN CORPUSCULAR HGB CONC 31.2 G/DL (33.0-37.0); MEAN CORPUSCULAR VOLUME 85.6 FL (80.0-94.0); MEAN PLATELET VOLUME 8.8 FL (7.4-10.4); PLATELET COUNT 114 /CUMM (130-400); RBC DISTRIBUTION WIDTH 19.2 % (11.5-14.5); RED BLOOD CELL CT 3.45 /CUMM (4.70-6.10); WHITE BLOOD CELL COUNT 11.3 /CUMM (4.8-10.8)
[2017-04-11 09:33] LABS: PT 24.6 SEC (9.4-12.5)
--- NOTE | 2017-04-11 12:30 | NUR ---
BACK FROM DIALYSIS. ALERT AND ORIENTED X3. VSS. SETTLED BACK INTO ROOM. CALL SALTER IN REACH.
[2017-04-11 12:46] VITALS: BP 118/52
[2017-04-11 14:11] VITALS: BP 118/55
--- NOTE | 2017-04-11 14:42 | PN- Psychiatry ---
Assessment/Plan Impression: Identifying Info: 72-year-old male known to this service brought in by ambulance from dialysis to the emergency department on 01/28/2017 for abdominal pain and admitted to medicine. He has been on medicine continuously since that point and is currently waiting the results for title 19 application so he can be transferred to rehabilitation. Consult requested for depression. Of note, on 03/19/17 the patient found out that his 27-year-old son had suddenly in [place]. SUBJECTIVE Pt discusses his experience at his son's memorial this on 04/09. Again reminisces about son's childhood. Describes some positive experiences with family memebers. Continues to express grief and wish that he had in place of his son. Brief ROS Gait: Did not observe, pt reports poor Sleep: Adequate Appetite: Adequate OBJECTIVE Mental Status Exam Presentation/Appearance: Cooperative with evaluation. Hospital garb. Sitting in bed. Orientation: x4 Sensorium: Awake and alert Eye contact: Appropriate Affect: Full range with tearfulness at times but less than previous meeting Mood: Dysphoric Depression: Endorses Anxiety: Endorses Thought Content: - Denies SI/HI, AH/VH, PI. States and also believes they will not kill themselves. - Endorses Hopeless/Helpless Thoughts Thought Process: Linear Associations: Appropriate Speech: Normal tone and rate Judgment: Intact Insight: Intact Cognition: Memory: Grossly intact Attention/Concentration: Grossly intact Fund of Knowledge: Adequate Abstractions: Did not assess MMSE: Did not assess ASSESSMENT 72-year-old male with a history of multiple chronic medical illnesses with frequent hospitalization as well as the recent of a son presents as depressed. While he currently declines, he would likely benefit from an antidepressant medication. It is agreeable to continuing meetings with [employer]. 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 We will continue to engage the patient. We will continue to encourage psychiatric follow-up. Thank you for including psychiatry in this case we'll follow on an ongoing basis Subjective Subjective: as above Objective Last 24 Hrs of Vital Signs/I&O Current Medications Sig/Johnna Start time Last Medication Dose Route Stop Time Status Admin Acetaminophen 650 MG Q4P PRN 01/31 1100 AC 04/05 PO 0031 Albuterol Sulfate 2 PUF Q4P PRN 02/06 0800 AC 03/26 INH 1734 Albuterol Sulfate 3 ML EVERY 4 HRS/AWAKE 02/05 1600 AC 04/11 INH 1312 Allopurinol 100 MG DAILY 02/20 1818 AC 04/10 PO 1055 Benzocaine/Menthol 1 LAZARO Q2P PRN 03/31 2215 AC PO Calcitriol 0.25 MCG TuThSa PRN 03/04 0745 AC IV Calcium Carbonate 500 MG BID PRN 04/08 1145 AC 04/11 PO 0916 Colchicine 300 MCG QTHURS 03/09 1000 AC 04/06 PO 1249 Colchicine 300 MCG QSUN 03/05 0700 AC 04/09 PO 0539 Diclofenac Sodium 1 MAI 4 TIMES/DAY 02/05 1400 AC 04/10 TOP 2138 Epoetin Guzman 4,000 UNIT TuThSa PRN 03/04 0745 AC IV Furosemide 80 MG DAILY 02/08 1138 AC 04/10 PO 1055 Guaifenesin 600 MG Q12 02/16 1000 AC 04/10 PO 2138 Guaifenesin/ 10 ML Q6P PRN 02/22 2130 AC 03/10 Dextromethorphan PO 2218 Insulin Aspart 0 TIDAC/HS 03/16 0800 AC 04/10 SC 1722 Multivitamins 1 TAB DAILY 03/23 1000 AC 04/10 PO 1055 Omeprazole 40 MG DAILY AC 02/12 1200 AC 04/11 PO 0526 Oxycodone/ 1 TAB Q6P PRN 04/05 1100 AC 04/09 Acetaminophen PO 0454 Sodium Chloride 2 SPRAY Q4P PRN 01/31 0430 AC 02/05 CHULA 2133 Trazodone HCl 50 MG AT BEDTIME 01/30 2200 AC 04/10 PO 2138 Laboratory Tests 04/11/17 0830: Anion Gap 12, Estimated GFR 10 L, BUN/Creatinine Ratio 6.0 L, Calcium 8.6, PT 24.6 H, INR 2.36 H, CBC w Diff NO MAN DIFF REQ, RBC 3.45 L, MCV 85.6, MCH 26.7 L, RDW 19.2 H, MPV 8.8, Gran % 77.9 H, Lymphocytes % 11.4 L, Monocytes % 7.5, Eosinophils % 2.7, Basophils % 0.5, Absolute Granulocytes 8.8 H, Absolute Lymphocytes 1.3, Absolute Monocytes 0.8 H, Absolute Eosinophils 0.3, Absolute Basophils 0.1, PUBS MCHC 31.2 L Vital Signs Date Time Temp Pulse Resp B/P B/P Pulse O2 O2 Flow FiO2 Mean Ox Delivery Rate 04/11 1411 98.2 52 20 118/55 93 04/11 1246 98.4 66 20 118/52 93 04/11 0751 99 Room Air Room Air 04/11 0655 98.0 60 16 100/60 96 Room Air 04/11 0321 94 Room Air 04/10 2223 98.2 59 18 93/60 95 Room Air 04/10 1600 98 Room Air Intake & Output 04/11 1600 04/11 0800 04/11 0000 Intake Total 300 400 Output Total 100 Balance 200 400 Intake, Oral 300 400 Output, Urine 100 Patient 184 lb 192 lb Weight Weight Standing Scale Measurement Method
--- NOTE | 2017-04-11 14:50 | PN- Nephrology ---
Assessment/Plan Assessment: PT comfortable. now s/p left AVF removal. Dialysis this AM without problems 3L removed. PT should be on fluid restriction. will place on 1.5L/day for now ( normally 1.2 and may need that in future).. Suggestion: . Subjective Subjective: Feels well. good appetite after dialysis Objective Vital Signs and I&Os Vital Signs 118/55 52 98 lungs clear Cor RRR Abd soft Ext 1+edema Results Pertinent Lab Results: Laboratory Tests 04/11 04/10 04/09 0830 0730 0806 Chemistry Sodium (137 - 145 mmol/L) 136 L Potassium (3.5 - 5.1 mmol/L) 5.6 H Chloride (98 - 107 mmol/L) 101 Carbon Dioxide (22 - 30 mmol/L) 23 Anion Gap (5 - 16) 12 BUN (9 - 20 mg/dL) 35 H Creatinine (0.7 - 1.2 mg/dL) 5.8 *H Estimated GFR (>60 ml/min) 10 L BUN/Creatinine Ratio (7 - 25 %) 6.0 L Calcium (8.4 - 10.2 mg/dL) 8.6 Coagulation PT (9.4 - 12.5 SEC) 24.6 H 24.3 H 25.1 H INR (0.90 - 1.17) 2.36 H 2.33 H 2.41 H Hematology CBC w Diff NO MAN DIFF REQ WBC (4.8 - 10.8 /CUMM) 11.3 H RBC (4.70 - 6.10 /CUMM) 3.45 L Hgb (14.0 - 18.0 G/DL) 9.2 L Hct (42 - 52 %) 29.5 L MCV (80.0 - 94.0 FL) 85.6 MCH (27.0 - 31.0 PG) 26.7 L RDW (11.5 - 14.5 %) 19.2 H Plt Count (130 - 400 /CUMM) 114 L MPV (7.4 - 10.4 FL) 8.8 Gran % (42.2 - 75.2 %) 77.9 H Lymphocytes % (20.5 - 51.1 %) 11.4 L Monocytes % (1.7 - 9.3 %) 7.5 Eosinophils % (0 - 5 %) 2.7 Basophils % (0.0 - 2.0 %) 0.5 Absolute Granulocytes (1.4 - 6.5 /CUMM) 8.8 H Absolute Lymphocytes (1.2 - 3.4 /CUMM) 1.3 Absolute Monocytes (0.10 - 0.60 /CUMM) 0.8 H Absolute Eosinophils (0.0 - 0.7 /CUMM) 0.3 Absolute Basophils (0.0 - 0.2 /CUMM) 0.1 PUBS MCHC (33.0 - 37.0 G/DL) 31.2 L 04/08 04/08 2042 1712 Chemistry Sodium (137 - 145 mmol/L) 136 L Potassium (3.5 - 5.1 mmol/L) 4.9 Chloride (98 - 107 mmol/L) 101 Carbon Dioxide (22 - 30 mmol/L) 23 Anion Gap (5 - 16) 13 BUN (9 - 20 mg/dL) 38 H Creatinine (0.7 - 1.2 mg/dL) 5.3 *H Estimated GFR (>60 ml/min) 11 L BUN/Creatinine Ratio (7 - 25 %) 7.2 Calcium (8.4 - 10.2 mg/dL) 8.6 Coagulation PT (9.4 - 12.5 SEC) 29.0 H INR (0.90 - 1.17) 2.79 H Hematology CBC w Diff NO MAN DIFF REQ WBC (4.8 - 10.8 /CUMM) 11.4 H RBC (4.70 - 6.10 /CUMM) 3.69 L Hgb (14.0 - 18.0 G/DL) 10.0 L Hct (42 - 52 %) 31.8 L MCV (80.0 - 94.0 FL) 86.3 MCH (27.0 - 31.0 PG) 27.0 RDW (11.5 - 14.5 %) 19.7 H Plt Count (130 - 400 /CUMM) 137 MPV (7.4 - 10.4 FL) 9.1 Gran % (42.2 - 75.2 %) 75.6 H Lymphocytes % (20.5 - 51.1 %) 14.5 L Monocytes % (1.7 - 9.3 %) 5.8 Eosinophils % (0 - 5 %) 3.7 Basophils % (0.0 - 2.0 %) 0.4 Absolute Granulocytes (1.4 - 6.5 /CUMM) 8.6 H Absolute Lymphocytes (1.2 - 3.4 /CUMM) 1.7 Absolute Monocytes (0.10 - 0.60 /CUMM) 0.7 H Absolute Eosinophils (0.0 - 0.7 /CUMM) 0.4 Absolute Basophils (0.0 - 0.2 /CUMM) 0 PUBS MCHC (33.0 - 37.0 G/DL) 31.3 L
--- NOTE | 2017-04-11 16:02 | PN- Att Addend ---
Attending Addendum Attending Brief Note 72M PMH COPD, ESRD on HD, paroxysmal atrial fibrillation on Coumadin, chronic diastolic CHF, T2DM, PVD, CAD, history of MGUS, neuropathy who was originally admitted with ischemic bowel which required resection and colostomy. Also with chronic left arm swelling since undergoing AV-fistula placement on 01/30/17. Currently patient is undergoing hemodialysis Monday per nephrology. He is awaiting for insurance paperwork to be completed so that he can be placed in a detention. Underwent fistulogram 03/27. Arm is significantly improved, as swelling has resolved and pain has nearly resolved. Desquamation is improving as well. Review of systems normal. AFVSS NAD NCAT Supple RRR Mild wheezes bilaterally Soft, NTND, ostomy clean No LE edema, LUE edematous, non-tender Pulses intact A&Ox3 no focal deficits Plan - Continue current management - Fistulogram complete, will follow vascular recommmendations - Currently s/p AV fistula ligation on 03/27, will follow vascular recommmendations and will need suture removal. Spoke to surgical team for suture care. - INR today is 2.36. c/w 5 mg of Coumadin. recheck INR in am - Follow nephrology recommendations - Follow up with social work and case management regarding placement to [facility]
[2017-04-11 22:34] VITALS: BP 112/58
[2017-04-12 06:22] VITALS: BP 94/54
--- NOTE | 2017-04-12 10:12 | PN- Att Addend ---
Attending Addendum Attending Brief Note 72M PMH COPD, ESRD on HD, paroxysmal atrial fibrillation on Coumadin, chronic diastolic CHF, T2DM, PVD, CAD, history of MGUS, neuropathy who was originally admitted with ischemic bowel which required resection and colostomy. Also with chronic left arm swelling since undergoing AV-fistula placement on 01/30/17. Currently patient is undergoing hemodialysis Monday per nephrology. He is awaiting for insurance paperwork to be completed so that he can be placed in a long-term. Underwent fistulogram 03/27. Arm is significantly improved, as swelling has resolved and pain has nearly resolved. Desquamation is improving as well. Review of systems normal. AFVSS NAD NCAT Supple RRR Mild wheezes bilaterally Soft, NTND, ostomy clean No LE edema, LUE edematous, non-tender Pulses intact A&Ox3 no focal deficits Plan - Continue current management - Fistulogram complete, will follow vascular recommmendations - Currently s/p AV fistula ligation on 03/27, will follow vascular recommmendations and will need suture removal. Spoke to surgical team for suture care. - INR f/u. c/w 5 mg of Coumadin. recheck INR in am - Follow nephrology recommendations - Follow up with social work and case management regarding placement to [facility] - Patient encouraged to check INR and monitoring.
[2017-04-12 13:46] LABS: PT 18.2 SEC (9.4-12.5)
[2017-04-12 14:49] VITALS: BP 120/66
[2017-04-12 21:29] VITALS: BP 120/60
[2017-04-13 06:37] VITALS: BP 110/60
[2017-04-13 08:42] LABS: ABSOLUTE BASOPHIL COUNT 0.1 /CUMM (0.0-0.2); ABSOLUTE EOSINOPHIL COUNT 0.3 /CUMM (0.0-0.7); ABSOLUTE GRANULOCYTE CT 7.6 /CUMM (1.4-6.5); ABSOLUTE LYMPH COUNT 1.2 /CUMM (1.2-3.4); ABSOLUTE MONOCYTE COUNT 0.6 /CUMM (0.10-0.60); BASOPHIL % 0.6 % (0.0-2.0); EOSINOPHIL % 3.1 % (0-5); GRANULOCYTE % 77.6 % (42.2-75.2); HEMATOCRIT 29.2 % (42-52); MEAN CORPUSCULAR HGB 26.7 PG (27.0-31.0); MEAN CORPUSCULAR HGB CONC 31.4 G/DL (33.0-37.0); MEAN CORPUSCULAR VOLUME 85.2 FL (80.0-94.0); MEAN PLATELET VOLUME 9.1 FL (7.4-10.4); PLATELET COUNT 107 /CUMM (130-400); RED BLOOD CELL CT 3.43 /CUMM (4.70-6.10); WHITE BLOOD CELL COUNT 9.8 /CUMM (4.8-10.8)
--- NOTE | 2017-04-13 10:13 | PN- Att Addend ---
Attending Addendum Attending Brief Note 72M PMH COPD, ESRD on HD, paroxysmal atrial fibrillation on Coumadin, chronic diastolic CHF, T2DM, PVD, CAD, history of MGUS, neuropathy who was originally admitted with ischemic bowel which required resection and colostomy. Also with chronic left arm swelling since undergoing AV-fistula placement on 01/30/17. Currently patient is undergoing hemodialysis Monday per nephrology. He is awaiting for insurance paperwork to be completed so that he can be placed in a usp. Underwent fistulogram 03/27. Arm is significantly improved, as swelling has resolved and pain has nearly resolved. Desquamation is improving as well. Review of systems normal. AFVSS NAD NCAT Supple RRR Mild wheezes bilaterally Soft, NTND, ostomy clean No LE edema, LUE edematous, non-tender Pulses intact A&Ox3 no focal deficits Plan - Continue current management - Fistulogram complete, will follow vascular recommmendations - Currently s/p AV fistula ligation on 03/27, will follow vascular recommmendations, suture removed - INR f/u. c/w 5 mg of Coumadin. recheck INR in am - Follow nephrology recommendations - Follow up with social work and case management regarding placement to [facility] - Patient encouraged to check INR and monitoring.
--- NOTE | 2017-04-13 10:36 | PN- Nephrology ---
Assessment/Plan Assessment: PT on dialysis now. Comfortable. Tolerating dialysis well. Suggestion: . Subjective Subjective: Pt on dialysis comfortable. Objective Vital Signs and I&Os M NAD 110/60 60 98.9 Lungs clear Cor RRR Abd soft Ext 1+ arm edema Results Pertinent Lab Results: Laboratory Tests 04/13 06 0745 1250 Chemistry Sodium (137 - 145 mmol/L) 136 L Potassium (3.5 - 5.1 mmol/L) 5.6 H Chloride (98 - 107 mmol/L) 101 Carbon Dioxide (22 - 30 mmol/L) 25 Anion Gap (5 - 16) 10 BUN (9 - 20 mg/dL) 28 H Creatinine (0.7 - 1.2 mg/dL) 5.0 H Estimated GFR (>60 ml/min) 11 L BUN/Creatinine Ratio (7 - 25 %) 5.6 L Glucose (65 - 99 mg/dL) 144 H Calcium (8.4 - 10.2 mg/dL) 8.9 Phosphorus (2.5 - 4.5 mg/dL) 4.5 Albumin (3.5 - 5.0 g/dL) 3.4 L Coagulation PT (9.4 - 12.5 SEC) 18.2 H INR (0.90 - 1.17) 1.74 H Hematology CBC w Diff NO MAN DIFF REQ WBC (4.8 - 10.8 /CUMM) 9.8 RBC (4.70 - 6.10 /CUMM) 3.43 L Hgb (14.0 - 18.0 G/DL) 9.1 L Hct (42 - 52 %) 29.2 L MCV (80.0 - 94.0 FL) 85.2 MCH (27.0 - 31.0 PG) 26.7 L RDW (11.5 - 14.5 %) 19.0 H Plt Count (130 - 400 /CUMM) 107 L MPV (7.4 - 10.4 FL) 9.1 Gran % (42.2 - 75.2 %) 77.6 H Lymphocytes % (20.5 - 51.1 %) 12.3 L Monocytes % (1.7 - 9.3 %) 6.4 Eosinophils % (0 - 5 %) 3.1 Basophils % (0.0 - 2.0 %) 0.6 Absolute Granulocytes (1.4 - 6.5 /CUMM) 7.6 H Absolute Lymphocytes (1.2 - 3.4 /CUMM) 1.2 Absolute Monocytes (0.10 - 0.60 /CUMM) 0.6 Absolute Eosinophils (0.0 - 0.7 /CUMM) 0.3 Absolute Basophils (0.0 - 0.2 /CUMM) 0.1 PUBS MCHC (33.0 - 37.0 G/DL) 31.4 L /06 0830 Chemistry Sodium (137 - 145 mmol/L) 136 L Potassium (3.5 - 5.1 mmol/L) 5.6 H Chloride (98 - 107 mmol/L) 101 Carbon Dioxide (22 - 30 mmol/L) 23 Anion Gap (5 - 16) 12 BUN (9 - 20 mg/dL) 35 H Creatinine (0.7 - 1.2 mg/dL) 5.8 *H Estimated GFR (>60 ml/min) 10 L BUN/Creatinine Ratio (7 - 25 %) 6.0 L Calcium (8.4 - 10.2 mg/dL) 8.6 Coagulation PT (9.4 - 12.5 SEC) 24.6 H INR (0.90 - 1.17) 2.36 H Hematology CBC w Diff NO MAN DIFF REQ WBC (4.8 - 10.8 /CUMM) 11.3 H RBC (4.70 - 6.10 /CUMM) 3.45 L Hgb (14.0 - 18.0 G/DL) 9.2 L Hct (42 - 52 %) 29.5 L MCV (80.0 - 94.0 FL) 85.6 MCH (27.0 - 31.0 PG) 26.7 L RDW (11.5 - 14.5 %) 19.2 H Plt Count (130 - 400 /CUMM) 114 L MPV (7.4 - 10.4 FL) 8.8 Gran % (42.2 - 75.2 %) 77.9 H Lymphocytes % (20.5 - 51.1 %) 11.4 L Monocytes % (1.7 - 9.3 %) 7.5 Eosinophils % (0 - 5 %) 2.7 Basophils % (0.0 - 2.0 %) 0.5 Absolute Granulocytes (1.4 - 6.5 /CUMM) 8.8 H Absolute Lymphocytes (1.2 - 3.4 /CUMM) 1.3 Absolute Monocytes (0.10 - 0.60 /CUMM) 0.8 H Absolute Eosinophils (0.0 - 0.7 /CUMM) 0.3 Absolute Basophils (0.0 - 0.2 /CUMM) 0.1 PUBS MCHC (33.0 - 37.0 G/DL) 31.2 L
[2017-04-13 11:58] VITALS: BP 118/62
[2017-04-13 12:19] LABS: PT 17.8 SEC (9.4-12.5)
[2017-04-13 14:47] VITALS: BP 118/57
[2017-04-13 22:27] VITALS: BP 116/60
[2017-04-14 06:33] VITALS: BP 112/62
[2017-04-14 10:25] LABS: PT 19.3 SEC (9.4-12.5)
--- NOTE | 2017-04-14 11:01 | PN- Att Addend ---
Attending Addendum Attending Brief Note 72M PMH COPD, ESRD on HD, paroxysmal atrial fibrillation on Coumadin, chronic diastolic CHF, T2DM, PVD, CAD, history of MGUS, neuropathy who was originally admitted with ischemic bowel which required resection and colostomy. Also with chronic left arm swelling since undergoing AV-fistula placement on 01/30/17. Currently patient is undergoing hemodialysis Monday per nephrology. He is awaiting for insurance paperwork to be completed so that he can be placed in a retirement. Underwent fistulogram 03/27. Arm is significantly improved, as swelling has resolved and pain has nearly resolved. Desquamation is improving as well. Review of systems normal. AFVSS NAD NCAT Supple RRR, CLEAR LUNGS Soft, NTND, ostomy clean No LE edema, LUE edematous, non-tender Pulses intact A&Ox3 no focal deficits Plan - Continue current management - Fistulogram complete, will follow vascular recommmendations - Currently s/p AV fistula ligation on 03/27, will follow vascular recommmendations, suture removed - INR f/u. c/w 6 mg of Coumadin. recheck INR in am - Follow nephrology recommendations - Follow up with social work and case management regarding placement to [facility] - Patient encouraged to check INR and monitoring.
[2017-04-14 14:33] VITALS: BP 126/60
--- NOTE | 2017-04-14 19:04 | NUR ---
1600- PT BILATERAL LOWER EXTREMITIES NOTED TO HAVE INCREASED DISCOLORATION. POSITIVE PEDAL PULSES. EDEMA +1. PT STATES PAIN IS BASELINE TO BLE. DR. LINDO NOTIFIED OF ABOVE. PER DR. LINDO, HE ASSESSED PT TODAY. NO NEW ORDERS AT THIS TIME.
[2017-04-14 22:43] VITALS: BP 132/60
[2017-04-15 07:45] VITALS: BP 110/50
[2017-04-15 09:53] LABS: ABSOLUTE BASOPHIL COUNT 0 /CUMM (0.0-0.2); ABSOLUTE EOSINOPHIL COUNT 0.4 /CUMM (0.0-0.7); ABSOLUTE GRANULOCYTE CT 6.5 /CUMM (1.4-6.5); ABSOLUTE LYMPH COUNT 1.3 /CUMM (1.2-3.4); ABSOLUTE MONOCYTE COUNT 0.7 /CUMM (0.10-0.60); BASOPHIL % 0.6 % (0.0-2.0); GRANULOCYTE % 72.7 % (42.2-75.2); HEMATOCRIT 30.5 % (42-52); MEAN CORPUSCULAR HGB 26.7 PG (27.0-31.0); MEAN CORPUSCULAR HGB CONC 31.4 G/DL (33.0-37.0); MEAN CORPUSCULAR VOLUME 85.2 FL (80.0-94.0); MEAN PLATELET VOLUME 8.5 FL (7.4-10.4); PLATELET COUNT 112 /CUMM (130-400); RBC DISTRIBUTION WIDTH 19.6 % (11.5-14.5); RED BLOOD CELL CT 3.58 /CUMM (4.70-6.10)
[2017-04-15 10:04] LABS: PT 21.6 SEC (9.4-12.5)
--- NOTE | 2017-04-15 10:12 | NUR ---
0840- PT LEFT FLOOR VIA BED FOR DIALYSIS.
[2017-04-15 13:35] VITALS: BP 102/62
--- NOTE | 2017-04-15 13:35 | NUR ---
1300- PT RETURNED TO FLOOR VIA BED FROM DIALYSIS. 3L TAKEN OFF. B/P 102/62, HR 62. ABOVE REPORTED TO DR. CALIX. TODAY'S LASIX TO BE HELD PER DR. CALIX.
--- NOTE | 2017-04-15 13:46 | PN- Att Addend ---
Attending Addendum Attending Brief Note Patient seen and examined. Plan of care discussed with the medical team and the patient. Available lab work and radiology test reports were reviewed. Patient is status post and also today with the 3 L of for removal of fluid today. He currently is sitting in bed without any distress. He denies any difficulty breathing chest pain or fever. He feels slightly tired. Vital Signs Date Time Temp Pulse Resp B/P B/P Pulse O2 O2 Flow FiO2 Mean Ox Delivery Rate 04/15 1335 62 18 102/62 95 Room Air 04/15 0759 97 Room Air Room Air 04/15 0745 98.1 62 20 110/50 96 Room Air 04/14 2243 97.8 63 20 132/60 95 Room Air 04/14 1616 100 Room Air Room Air 04/14 1433 97.7 60 20 126/60 98 Room Air Intake & Output 04/15 1600 04/15 0800 04/15 0000 Intake Total 220 240 Output Total Balance 220 240 Intake, Oral 220 240 Number 1 Bowel Movements Patient 181 lb 188 lb Weight Weight Standing Scale Measurement Method Exam: General: Patient awake alert oriented without any distress CVS: S1 plus S2 without any murmur or gallops Chest: Few scattered crepitation without any wheeze. There is no respiratory distress. 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 without any focal neuro deficit and follows command appropriately Extremities: 1+ bilateral edema; no clubbing or cyanosis noted; chronic lower leg discoloration is noted Laboratory Tests 04/15 0855 Chemistry Sodium (137 - 145 mmol/L) 135 L Potassium (3.5 - 5.1 mmol/L) 5.1 Chloride (98 - 107 mmol/L) 98 Carbon Dioxide (22 - 30 mmol/L) 25 Anion Gap (5 - 16) 12 BUN (9 - 20 mg/dL) 30 H Creatinine (0.7 - 1.2 mg/dL) 4.9 H Estimated GFR (>60 ml/min) 12 L BUN/Creatinine Ratio (7 - 25 %) 6.1 L Glucose (65 - 99 mg/dL) 171 H Coagulation PT (9.4 - 12.5 SEC) 21.6 H INR (0.90 - 1.17) 2.07 H Hematology CBC w Diff NO MAN DIFF REQ WBC (4.8 - 10.8 /CUMM) 9.0 RBC (4.70 - 6.10 /CUMM) 3.58 L Hgb (14.0 - 18.0 G/DL) 9.6 L Hct (42 - 52 %) 30.5 L MCV (80.0 - 94.0 FL) 85.2 MCH (27.0 - 31.0 PG) 26.7 L RDW (11.5 - 14.5 %) 19.6 H Plt Count (130 - 400 /CUMM) 112 L MPV (7.4 - 10.4 FL) 8.5 Gran % (42.2 - 75.2 %) 72.7 Lymphocytes % (20.5 - 51.1 %) 14.9 L Monocytes % (1.7 - 9.3 %) 7.8 Eosinophils % (0 - 5 %) 4.0 Basophils % (0.0 - 2.0 %) 0.6 Absolute Granulocytes (1.4 - 6.5 /CUMM) 6.5 Absolute Lymphocytes (1.2 - 3.4 /CUMM) 1.3 Absolute Monocytes (0.10 - 0.60 /CUMM) 0.7 H Absolute Eosinophils (0.0 - 0.7 /CUMM) 0.4 Absolute Basophils (0.0 - 0.2 /CUMM) 0 PUBS MCHC (33.0 - 37.0 G/DL) 31.4 L Serology Hep Bs Antigen (NONREACTIVE) NONREACTIVE Hep Bs Antibody (NONREACTIVE) REACTIVE Assessment plan * End-stage renal disease on hemodialysis * A. fib on Coumadin * History of COPD * History of chronic diastolic heart failure * Diabetes mellitus * Peripheral vascular disease * CAD * History of MGUS Plan Given the patient's blood pressure is slightly low after 3 L removal of fluid we will hold Lasix for today. We'll re-dose Coumadin today at 5 mg daily
[2017-04-15 22:13] VITALS: BP 100/60
[2017-04-16 06:42] VITALS: BP 126/50
--- NOTE | 2017-04-16 12:33 | PN- Att Addend ---
Attending Addendum Attending Brief Note Patient seen and examined. Plan of care discussed with the medical team and the patient. Available lab work and radiology test reports were reviewed. Patient is status post dialysis yesterday with the 3 L of for removal of fluid. He currently is sitting in bed without any distress. He denies any difficulty breathing chest pain or fever. He feels slightly tired and complains of dyspnea on exertion. Vital Signs Date Time Temp Pulse Resp B/P B/P Pulse O2 O2 Flow FiO2 Mean Ox Delivery Rate 04/16 0808 98 Room Air Room Air 04/16 0642 97.5 82 20 126/50 95 Room Air 04/15 2213 99.2 60 20 100/60 95 04/15 2004 96 Room Air 04/15 1335 62 18 102/62 95 Room Air Intake & Output 04/16 1600 04/16 0800 04/16 0000 Intake Total 240 80 Output Total Balance 240 80 Intake, Oral 240 80 Patient 183 lb Weight Weight Standing Scale Measurement Method Exam: General: Patient awake alert oriented without any distress CVS: S1 plus S2 without any murmur or gallops Chest: Few scattered crepitation without any wheeze. There is no respiratory distress. 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 fib on Coumadin * History of COPD * History of chronic diastolic heart failure * Diabetes mellitus * Peripheral vascular disease * CAD * History of MGUS Plan Given the patient's blood pressure was low after dialysis his Lasix was held yesterday. Today his pressure is much improved therefore we'll resume Lasix. Patient started on Coumadin 5 mg daily. We'll check INR tomorrow.
[2017-04-16 22:52] VITALS: BP 150/60
[2017-04-17 06:45] VITALS: BP 124/68
--- NOTE | 2017-04-17 09:57 | PN- Att Addend ---
Attending Addendum Attending Brief Note 72M PMH COPD, ESRD on HD, paroxysmal atrial fibrillation on Coumadin, chronic diastolic CHF, T2DM, PVD, CAD, history of MGUS, neuropathy who was originally admitted with ischemic bowel which required resection and colostomy. Also with chronic left arm swelling since undergoing AV-fistula placement on 01/30/17. Currently patient is undergoing hemodialysis Monday per nephrology. He is awaiting for insurance paperwork to be completed so that he can be placed in a prison. Underwent fistulogram 03/27. Arm is significantly improved, as swelling has resolved and pain has nearly resolved. Desquamation is improving as well. Review of systems normal. AFVSS NAD NCAT Supple RRR, CLEAR LUNGS Soft, NTND, ostomy clean No LE edema, LUE edematous, non-tender Pulses intact A&Ox3 no focal deficits Plan - Continue current management - Fistulogram complete, will follow vascular recommmendations - Currently s/p AV fistula ligation on 03/27, will follow vascular recommmendations, suture removed - INR f/u. c/w 5 mg of Coumadin. recheck INR in am - Follow nephrology recommendations - Follow up with social work and case management regarding placement to [facility] - Patient encouraged to check INR and monitoring.
[2017-04-17 14:15] VITALS: BP 120/60
[2017-04-17 23:15] VITALS: BP 118/60
[2017-04-18 06:16] VITALS: BP 112/58
[2017-04-18 08:22] LABS: ABSOLUTE BASOPHIL COUNT 0.1 /CUMM (0.0-0.2); ABSOLUTE EOSINOPHIL COUNT 0.4 /CUMM (0.0-0.7); ABSOLUTE GRANULOCYTE CT 8.1 /CUMM (1.4-6.5); ABSOLUTE MONOCYTE COUNT 0.7 /CUMM (0.10-0.60); BASOPHIL % 0.7 % (0.0-2.0); EOSINOPHIL % 3.8 % (0-5); GRANULOCYTE % 79.1 % (42.2-75.2); HEMATOCRIT 29.9 % (42-52); MEAN CORPUSCULAR HGB 26.6 PG (27.0-31.0); MEAN CORPUSCULAR HGB CONC 31.6 G/DL (33.0-37.0); MEAN PLATELET VOLUME 8.7 FL (7.4-10.4); PLATELET COUNT 133 /CUMM (130-400); RBC DISTRIBUTION WIDTH 18.9 % (11.5-14.5); RED BLOOD CELL CT 3.56 /CUMM (4.70-6.10); WHITE BLOOD CELL COUNT 10.2 /CUMM (4.8-10.8)
[2017-04-18 08:38] LABS: PT 18.9 SEC (9.4-12.5)
--- NOTE | 2017-04-18 09:34 | PN- Att Addend ---
Attending Addendum Attending Brief Note 72M PMH COPD, ESRD on HD, paroxysmal atrial fibrillation on Coumadin, chronic diastolic CHF, T2DM, PVD, CAD, history of MGUS, neuropathy who was originally admitted with ischemic bowel which required resection and colostomy. Also with chronic left arm swelling since undergoing AV-fistula placement on 01/30/17. Currently patient is undergoing hemodialysis Monday per nephrology. He is awaiting for insurance paperwork to be completed so that he can be placed in a [facility]pc. Underwent fistulogram 03/27. Arm is significantly improved, as swelling has resolved and pain has nearly resolved. Desquamation is improving as well. Review of systems normal. AFVSS NAD NCAT Supple RRR, CLEAR LUNGS Soft, NTND, ostomy clean No LE edema, LUE edematous, non-tender Pulses intact A&Ox3 no focal deficits Plan - Continue current management - Fistulogram complete, will follow vascular recommmendations - Currently s/p AV fistula ligation on 03/27, will follow vascular recommmendations, suture removed - INR f/u. c/w 5 mg of Coumadin. recheck INR in am - Follow nephrology recommendations - Follow up with social work and case management regarding placement to [facility] - Patient encouraged to check INR and monitoring.
--- NOTE | 2017-04-18 10:00 | NUR ---
ANA MARÍA FROM DIALYSIS CALLED DICTATING RN TO INFORM THAT DR. SCHNEIDER DOES NOT WANT REPEAT BEP LABS DRAWN TO RECHECK CREAT OF 5.8 AND K OF 6.1 THAT WERE REPORTED FROM AM LABS PRIOR TO DIALYSIS.
--- NOTE | 2017-04-18 11:10 | PN- Nephrology ---
Assessment/Plan Assessment: 1. ESRD with hyperkalemia today 2. Status post bowel resection with colostomy 01/28/17 for ischemic bowel 3. S/P RADHA AVF ligation (2/2 occlusion of cephalic arch by pacemaker leads) with persistent edema 4. Rigors during dialysis today without associated fever; WBC 10.2 Suggestion: 1. Hemodialysis today in progress with ultrafiltration to dry weight of 81 kg; dialysate potassium concentration changed to 1 mEq per liter 2. Blood cultures drawn; as he is a difficult peripheral phlebotomy, cultures will be obtained from his central dialysis catheter 3. No need for post dialysis electrolytes as they will not be in an equilibrated state 4. Please ask wireline operator to review his diet to ensure that he is on a 2 g per day potassium restriction Subjective Subjective: Patient still complaining of pain in the left arm. He also has had some other discomfort including knees and to a lesser extent abdominal pain. There's been no nausea or vomiting. He is having some rigors during my encounter with him today. He is unaware of any increase in dietary potassium intake. Hemodialysis is in progress. Objective Vital Signs and I&Os Vital Signs Date Time Temp Pulse Resp B/P B/P Pulse O2 O2 Flow FiO2 Mean Ox Delivery Rate 04/18 0849 93 Room Air Room Air 04/18 0616 98.5 59 20 112/58 96 Room Air 04/18 0316 Room Air 04/17 2315 98.1 60 20 118/60 97 Room Air 04/17 1643 99 Room Air Room Air 04/17 1415 97.9 60 20 120/60 95 Intake & Output 04/18 1600 04/18 0400 04/17 1600 04/17 0400 04/16 1600 04/16 0400 Intake Total 450 620 120 960 80 Output Total 300 250 450 Balance 150 370 120 510 80 Intake, Oral 450 620 120 960 80 Output, Stool 300 250 250 Output, Urine 200 Patient 187 lb 175 lb 183 lb Weight Weight Standing Scale Standing Scale Standing Scale Measurement Method Physical Exam: General: Well-developed white male shaking and complaining of chills Skin: No rash or jaundice HEENT: Conjunctivae pink, sclerae anicteric, mucous membranes moist Neck: Without masses or thyromegaly, no supraclavicular or cervical adenopathy Chest: Clear anterolaterally Heart: Regular rate and rhythm without S3 or rub Abdomen: Obese, soft and nontender; colostomy Extremities: Without LE cyanosis or edema; +LUE edema Neuro: No focal findings, no asterixis or myoclonus Results Pertinent Lab Results: Laboratory Tests 04/18 04/17 0737 0725 Chemistry Sodium (137 - 145 mmol/L) 136 L Potassium (3.5 - 5.1 mmol/L) 6.1 *H Chloride (98 - 107 mmol/L) 102 Carbon Dioxide (22 - 30 mmol/L) 22 Anion Gap (5 - 16) 12 BUN (9 - 20 mg/dL) 39 H Creatinine (0.7 - 1.2 mg/dL) 5.8 *H Estimated GFR (>60 ml/min) 10 L BUN/Creatinine Ratio (7 - 25 %) 6.7 L Calcium (8.4 - 10.2 mg/dL) 9.0 Coagulation PT (9.4 - 12.5 SEC) 18.9 H 22.0 H INR (0.90 - 1.17) 1.81 H 2.11 H Hematology CBC w Diff NO MAN DIFF REQ WBC (4.8 - 10.8 /CUMM) 10.2 RBC (4.70 - 6.10 /CUMM) 3.56 L Hgb (14.0 - 18.0 G/DL) 9.5 L Hct (42 - 52 %) 29.9 L MCV (80.0 - 94.0 FL) 84.0 MCH (27.0 - 31.0 PG) 26.6 L RDW (11.5 - 14.5 %) 18.9 H Plt Count (130 - 400 /CUMM) 133 MPV (7.4 - 10.4 FL) 8.7 Gran % (42.2 - 75.2 %) 79.1 H Lymphocytes % (20.5 - 51.1 %) 9.6 L Monocytes % (1.7 - 9.3 %) 6.8 Eosinophils % (0 - 5 %) 3.8 Basophils % (0.0 - 2.0 %) 0.7 Absolute Granulocytes (1.4 - 6.5 /CUMM) 8.1 H Absolute Lymphocytes (1.2 - 3.4 /CUMM) 1.0 L Absolute Monocytes (0.10 - 0.60 /CUMM) 0.7 H Absolute Eosinophils (0.0 - 0.7 /CUMM) 0.4 Absolute Basophils (0.0 - 0.2 /CUMM) 0.1 PUBS MCHC (33.0 - 37.0 G/DL) 31.6 L
--- NOTE | 2017-04-18 14:17 | NUR ---
SHIFT NOTE: PATIENT WENT DOWN TO DIALYSIS BEFORE THE START OF THE SHIFT. PATINT CAME UP FROM DIALYSIS, VERBALIZED ANGER TOWARDS THE DISTRIBUTION TEAM FOR "MAKING ME WAIT SO LONG". THIS RN CALLED THE DISTRIBUTION TEAM AND WAS NOTIFIED THAT THEY HAD AN EMERGENCY AND WERE UNABLE TO USE THE ELEVATORS DUE TO THE EMERGENCY SITUATION, THEREFORE, CAUSING THE DELAY. PATIENT REFUSED GETTING HIS WEIGHT CHECKED AFTER DIALYSIS. HE REMAINS EMOTIONAL OVER THE LOSS OF HIS SON. DIETARY TEAM CALLED TO SPEAK WITH PATIENT AND TAKE LUNCH ORDER. PATIENT REFUSING TO ORDER. ONLY WANTS A COFFEE. THIS RN ATTEMPTED ENCOURAGED PATIENT TO ORDER PERHAPS A SOUP HE LIKES SOUPS. PATIENT CONTINUED TO REFUSE. NOTIFIED PATIENT TO NOTIFY SOMEONE OR THE RN IF HE SHOULD CHANGE HIS MIND.
[2017-04-18 14:40] VITALS: BP 118/72
[2017-04-18 22:51] VITALS: BP 116/50
[2017-04-19 06:00] VITALS: BP 102/50
--- NOTE | 2017-04-19 09:35 | PN- Att Addend ---
Attending Addendum Attending Brief Note 72M PMH COPD, ESRD on HD, paroxysmal atrial fibrillation on Coumadin, chronic diastolic CHF, T2DM, PVD, CAD, history of MGUS, neuropathy who was originally admitted with ischemic bowel which required resection and colostomy. Also with chronic left arm swelling since undergoing AV-fistula placement on 01/30/17. Currently patient is undergoing hemodialysis Monday per nephrology. He is awaiting for insurance paperwork to be completed so that he can be placed in a assisted. Underwent fistulogram 03/27. Arm is significantly improved, as swelling has resolved and pain has nearly resolved. Desquamation is improving as well. Review of systems normal. AFVSS NAD NCAT Supple RRR, CLEAR LUNGS Soft, NTND, ostomy clean No LE edema, LUE edematous, non-tender Pulses intact A&Ox3 no focal deficits Plan - Continue current management - Fistulogram complete, will follow vascular recommmendations - Currently s/p AV fistula ligation on 03/27, will follow vascular recommmendations, suture removed - INR f/u. c/w 5 mg of Coumadin. recheck INR in am - Follow nephrology recommendations - Follow up with social work and case management regarding placement to [facility] - Patient encouraged to check INR and monitoring.
[2017-04-19 09:45] VITALS: BP 112/50
[2017-04-19 11:36] LABS: PT 17.2 SEC (9.4-12.5)
[2017-04-19 15:36] VITALS: BP 110/50
--- NOTE | 2017-04-19 16:07 | NUR ---
1545- PT REFUSED TO ORDER BREAKFAST, LUNCH OR DINNER. HAS BEEN EATING CRACKERS, PEANUTBUTTER, COFFEE, WATER AND JUICES FROM THE KITCHEN ON THE FLOOR. PT STATES HIS FOOD ORDERS ARE NEVER RIGHT AND HE IS NOT GOING TO ORDER ANYTHING ANYMORE. DR. LINDO NOTIFIED OF ABOVE. DINING SERVICES NOTIFIED.
[2017-04-19 22:26] VITALS: BP 124/66
[2017-04-20 08:00] VITALS: BP 120/50
--- NOTE | 2017-04-20 08:02 | NUR ---
0720- PT LEFT FLOOR VIA BED FOR DIALYSIS.
[2017-04-20 09:02] LABS: ABSOLUTE BASOPHIL COUNT 0.1 /CUMM (0.0-0.2); ABSOLUTE EOSINOPHIL COUNT 0.4 /CUMM (0.0-0.7); ABSOLUTE GRANULOCYTE CT 5.5 /CUMM (1.4-6.5); ABSOLUTE LYMPH COUNT 1.2 /CUMM (1.2-3.4); ABSOLUTE MONOCYTE COUNT 0.7 /CUMM (0.10-0.60); BASOPHIL % 0.8 % (0.0-2.0); EOSINOPHIL % 5.6 % (0-5); GRANULOCYTE % 70.1 % (42.2-75.2); HEMATOCRIT 29.9 % (42-52); MEAN CORPUSCULAR HGB 26.1 PG (27.0-31.0); MEAN CORPUSCULAR HGB CONC 31.2 G/DL (33.0-37.0); MEAN CORPUSCULAR VOLUME 83.7 FL (80.0-94.0); MEAN PLATELET VOLUME 8.7 FL (7.4-10.4); PLATELET COUNT 133 /CUMM (130-400); RBC DISTRIBUTION WIDTH 18.8 % (11.5-14.5); RED BLOOD CELL CT 3.57 /CUMM (4.70-6.10); WHITE BLOOD CELL COUNT 7.8 /CUMM (4.8-10.8)
--- NOTE | 2017-04-20 10:03 | PN- Nephrology ---
Assessment/Plan Assessment: 1. ESRD 2. Status post bowel resection with colostomy 01/28/17 for ischemic bowel 3. S/P RADHA AVF ligation (2/2 occlusion of cephalic arch by pacemaker leads) with persistent edema Suggestion: 1. Hemodialysis today in progress with ultrafiltration to dry weight of 81 kg 2. Await disposition Subjective Subjective: Patient continues to have discomfort in his left upper extremity. Specifically, there are paresthesias in his left hand and pain in the left forearm. Left upper extremity edema is relatively unchanged. No further rigors and no fever. Blood cultures from 2 days ago are negative thus far. Objective Vital Signs and I&Os Vital Signs Date Time Temp Pulse Resp B/P B/P Pulse O2 O2 Flow FiO2 Mean Ox Delivery Rate 04/20 0837 95 Room Air 04/20 0800 97.7 59 20 120/50 95 Room Air 04/19 2226 98.8 60 20 124/66 96 Room Air 04/19 1634 96 Room Air 04/19 1536 97.5 60 20 110/50 98 Intake & Output 04/20 1600 04/20 0400 04/19 0400 04/18 0400 Intake Total 440 496 114 2468 450 Output Total 350 300 Balance 440 671 305 7994 150 Intake, Oral 440 181 617 6830 450 Output, Stool 200 300 Output, Urine 150 Patient 182 lb 176 lb 187 lb Weight Weight Standing Scale Standing Scale Measurement Method Physical Exam: General: Well-developed white male in no acute distress Skin: No rash or jaundice HEENT: Conjunctivae pink, sclerae anicteric, mucous membranes moist Neck: Without masses or thyromegaly, no supraclavicular or cervical adenopathy Chest: Scattered wheezes bilaterally Heart: Regular rate and rhythm without S3 or rub Abdomen: Obese, soft and nontender; colostomy Extremities: Without LE cyanosis or edema; +LUE edema Neuro: No focal findings, no asterixis or myoclonus Results Pertinent Lab Results: Laboratory Tests 04/20 04/19 0730 1024 Chemistry Sodium (137 - 145 mmol/L) 135 L Potassium (3.5 - 5.1 mmol/L) 4.4 Chloride (98 - 107 mmol/L) 98 Carbon Dioxide (22 - 30 mmol/L) 26 Anion Gap (5 - 16) 12 BUN (9 - 20 mg/dL) 31 H Creatinine (0.7 - 1.2 mg/dL) 5.0 H Estimated GFR (>60 ml/min) 11 L BUN/Creatinine Ratio (7 - 25 %) 6.2 L Glucose (65 - 99 mg/dL) 139 H Calcium (8.4 - 10.2 mg/dL) 8.7 Phosphorus (2.5 - 4.5 mg/dL) 5.4 H Magnesium (1.6 - 2.3 mg/dL) 1.7 Albumin (3.5 - 5.0 g/dL) 3.4 L Coagulation PT (9.4 - 12.5 SEC) 17.2 H INR (0.90 - 1.17) 1.65 H Hematology CBC w Diff NO MAN DIFF REQ WBC (4.8 - 10.8 /CUMM) 7.8 RBC (4.70 - 6.10 /CUMM) 3.57 L Hgb (14.0 - 18.0 G/DL) 9.3 L Hct (42 - 52 %) 29.9 L MCV (80.0 - 94.0 FL) 83.7 MCH (27.0 - 31.0 PG) 26.1 L RDW (11.5 - 14.5 %) 18.8 H Plt Count (130 - 400 /CUMM) 133 MPV (7.4 - 10.4 FL) 8.7 Gran % (42.2 - 75.2 %) 70.1 Lymphocytes % (20.5 - 51.1 %) 15.1 L Monocytes % (1.7 - 9.3 %) 8.4 Eosinophils % (0 - 5 %) 5.6 H Basophils % (0.0 - 2.0 %) 0.8 Absolute Granulocytes (1.4 - 6.5 /CUMM) 5.5 Absolute Lymphocytes (1.2 - 3.4 /CUMM) 1.2 Absolute Monocytes (0.10 - 0.60 /CUMM) 0.7 H Absolute Eosinophils (0.0 - 0.7 /CUMM) 0.4 Absolute Basophils (0.0 - 0.2 /CUMM) 0.1 PUBS MCHC (33.0 - 37.0 G/DL) 31.2 L 04/18 0737 Chemistry Sodium (137 - 145 mmol/L) 136 L Potassium (3.5 - 5.1 mmol/L) 6.1 *H Chloride (98 - 107 mmol/L) 102 Carbon Dioxide (22 - 30 mmol/L) 22 Anion Gap (5 - 16) 12 BUN (9 - 20 mg/dL) 39 H Creatinine (0.7 - 1.2 mg/dL) 5.8 *H Estimated GFR (>60 ml/min) 10 L BUN/Creatinine Ratio (7 - 25 %) 6.7 L Calcium (8.4 - 10.2 mg/dL) 9.0 Coagulation PT (9.4 - 12.5 SEC) 18.9 H INR (0.90 - 1.17) 1.81 H Hematology CBC w Diff NO MAN DIFF REQ WBC (4.8 - 10.8 /CUMM) 10.2 RBC (4.70 - 6.10 /CUMM) 3.56 L Hgb (14.0 - 18.0 G/DL) 9.5 L Hct (42 - 52 %) 29.9 L MCV (80.0 - 94.0 FL) 84.0 MCH (27.0 - 31.0 PG) 26.6 L RDW (11.5 - 14.5 %) 18.9 H Plt Count (130 - 400 /CUMM) 133 MPV (7.4 - 10.4 FL) 8.7 Gran % (42.2 - 75.2 %) 79.1 H Lymphocytes % (20.5 - 51.1 %) 9.6 L Monocytes % (1.7 - 9.3 %) 6.8 Eosinophils % (0 - 5 %) 3.8 Basophils % (0.0 - 2.0 %) 0.7 Absolute Granulocytes (1.4 - 6.5 /CUMM) 8.1 H Absolute Lymphocytes (1.2 - 3.4 /CUMM) 1.0 L Absolute Monocytes (0.10 - 0.60 /CUMM) 0.7 H Absolute Eosinophils (0.0 - 0.7 /CUMM) 0.4 Absolute Basophils (0.0 - 0.2 /CUMM) 0.1 PUBS MCHC (33.0 - 37.0 G/DL) 31.6 L
--- NOTE | 2017-04-20 13:47 | NUR ---
07:20- PT LEFT FLOOR VIA BED FOR DIALYSIS 11:20- PT RETURNED TO FLOOR VIA BED FROM DIALYSIS. 2L TAKEN OFF. VSS. PT ORDERED LUNCH. PT STATES HE IS FEELING WELL. A/V/OX3
[2017-04-20 14:41] VITALS: BP 100/51
--- NOTE | 2017-04-20 15:54 | PN- Att Addend ---
Attending Addendum Attending Brief Note S: The patient was seen post dialysis today. He continues to complain of diminished ROM and pain using his LUE since his fistula surgeries. Still some swelling, however significantly better. O: VS: Vital Signs Date Time Temp Pulse Resp B/P B/P Pulse O2 O2 Flow FiO2 Mean Ox Delivery Rate 04/20 1645 94 Room Air 04/20 1441 98.1 60 20 100/51 94 Room Air 04/20 0837 95 Room Air 04/20 0800 97.7 59 20 120/50 95 Room Air 04/20 0715 Room Air 04/19 2226 98.8 60 20 124/66 96 Room Air Intake & Output 04/20 1600 04/20 0800 04/20 0000 Intake Total 600 440 120 Output Total 250 Balance 350 440 120 Intake, Oral 600 440 120 Output, Stool 200 Output, Urine 50 Patient 178 lb 182 lb Weight Current Medications Sig/Johnna Start time Last Medication Dose Route Stop Time Status Admin Acetaminophen 650 MG .STK-MED ONE 04/20 0017 DC PO 04/20 0018 Acetaminophen 650 MG Q4P PRN 01/31 1100 AC 04/20 PO 2024 Albuterol Sulfate 2 PUF Q4P PRN 02/06 0800 AC 03/26 INH 1734 Albuterol Sulfate 3 ML EVERY 4 HRS/AWAKE 02/05 1600 AC 04/20 INH 2055 Allopurinol 100 MG DAILY 02/20 1818 AC 04/20 PO 1135 Benzocaine/Menthol 1 LAZARO Q2P PRN 03/31 2215 AC PO Calcitriol 0.25 MCG TuThSa PRN 03/04 0745 AC IV Calcium Carbonate 500 MG BID PRN 04/08 1145 AC 04/13 PO 2152 Colchicine 300 MCG QTHURS 03/09 1000 AC 04/20 PO 1135 Colchicine 300 MCG QSUN 03/05 0700 AC 04/16 PO 0601 Diclofenac Sodium 1 MAI 4 TIMES/DAY 02/05 1400 AC 04/20 TOP 2151 Epoetin Guzman 4,000 UNIT TuThSa PRN 03/04 0745 AC IV Furosemide 80 MG DAILY 02/08 1138 AC 04/20 PO 1135 Guaifenesin 600 MG Q12 02/16 1000 AC 04/20 PO 2150 Guaifenesin/ 10 ML Q6P PRN 02/22 2130 AC 03/10 Dextromethorphan PO 2218 Insulin Aspart 0 TIDAC/HS 03/16 0800 AC 04/20 SC 1815 Multivitamins 1 TAB DAILY 03/23 1000 AC 04/20 PO 1135 Omeprazole 40 MG DAILY AC 02/12 1200 AC 04/20 PO 0701 Sodium Chloride 2 SPRAY Q4P PRN 01/31 0430 AC 02/05 CHULA 2133 Trazodone HCl 50 MG AT BEDTIME 01/30 2200 AC 04/20 PO 2150 Warfarin Sodium 7.5 MG COUMADIN 1700 ONE 04/20 1700 DC 04/20 PO 04/20 1701 1836 O: HEENT: stewart- moist mucosa w/o lesions Chest: clear Cor: RRR, nl S1, S2 w/o murm Abd: BS+, soft NT Ext: LUE - mild edema, mild pain on ROM, 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 Plan: Continue dialysis. #LUE Pain/Edema- secondary to prior surgeries. Plan: Will order OT consult for evaluation and treatment. #COPD- lungs clear today, however patient c/o cough with upper airway mucus. Is on Guaifenesin and Albuterol. Plan: Continue current meds and observe. #Gout- on Colchicine/Allopurinol. No c/o. Plan: Continue Colchicine and Allopurinol. #DM2- stable on insulin. Plan: Continue insulin. #PAF- on Coumadin with last 3 INR's subtherapeutic. . Plan: Continue Coumadin will give 7.5 mg this evening and adjust dose based on INR. Note he has bounced between 5 mg and 7.5 mg doses and may actually require 6 mg dose. Await follow-up. #
[2017-04-20 22:21] VITALS: BP 120/50
[2017-04-21 06:00] VITALS: BP 110/48
[2017-04-21 08:26] LABS: PT 21.4 SEC (9.4-12.5)
--- NOTE | 2017-04-21 12:31 | PN- Nephrology ---
Assessment/Plan Assessment: 1. ESRD 2. Status post bowel resection with colostomy 01/28/17 for ischemic bowel 3. S/P RADHA AVF ligation (2/2 occlusion of cephalic arch by pacemaker leads) with persistent edema 4. COPD Suggestion: 1. Hemodialysis tomorrow 2. Respiratory treatments as needed 3. Continue PT/OT 4. Await disposition Subjective Subjective: Feels reasonably well today without any shortness of breath but with a cough that continues to be productive of whitish sputum. Left upper extremity discomfort persists but is perhaps slightly better. No fever or chills. Receiving physical and occupational therapy. Serum potassium yesterday was 4.4. URR was not checked. Objective Vital Signs and I&Os Vital Signs Date Time Temp Pulse Resp B/P B/P Pulse O2 O2 Flow FiO2 Mean Ox Delivery Rate 04/21 0747 97 Room Air Room Air 04/21 0600 97.8 61 18 110/48 95 Room Air 04/20 2221 98.3 70 20 120/50 96 Room Air 04/20 1645 94 Room Air 04/20 1441 98.1 60 20 100/51 94 Room Air Intake & Output 04/21 1600 04/21 0400 04/20 1600 04/20 0400 04/19 1600 04/19 0400 Intake Total 547 633 5815 120 880 Output Total 250 350 Balance 220 220 790 120 530 Intake, Oral 816 423 9211 120 880 Output, Stool 200 200 Output, Urine 50 150 Patient 185 lb 178 lb 176 lb Weight Weight Standing Scale Standing Scale Measurement Method Physical Exam: General: Well-developed white male in no acute distress Skin: No rash or jaundice HEENT: Conjunctivae pink, sclerae anicteric, mucous membranes moist Neck: Without masses or thyromegaly, no supraclavicular or cervical adenopathy Chest: Few rales right base otherwise relatively clear with no wheezes today Heart: Regular rate and rhythm without S3 or rub Abdomen: Obese, soft and nontender; colostomy Extremities: Without LE cyanosis or edema; +LUE edema (better) with amputated left index finger Neuro: No focal findings, no asterixis or myoclonus Results Pertinent Lab Results: Laboratory Tests 04/21 04/20 04/20 0700 0800 0730 Chemistry Sodium (137 - 145 mmol/L) 135 L Potassium (3.5 - 5.1 mmol/L) 4.4 Chloride (98 - 107 mmol/L) 98 Carbon Dioxide (22 - 30 mmol/L) 26 Anion Gap (5 - 16) 12 BUN (9 - 20 mg/dL) 31 H Creatinine (0.7 - 1.2 mg/dL) 5.0 H Estimated GFR (>60 ml/min) 11 L BUN/Creatinine Ratio (7 - 25 %) 6.2 L Glucose (65 - 99 mg/dL) 139 H Calcium (8.4 - 10.2 mg/dL) 8.7 Phosphorus (2.5 - 4.5 mg/dL) 5.4 H Magnesium (1.6 - 2.3 mg/dL) 1.7 Albumin (3.5 - 5.0 g/dL) 3.4 L Coagulation PT (9.4 - 12.5 SEC) 21.4 H Cancelled INR (0.90 - 1.17) 2.05 H Cancelled Hematology CBC w Diff NO MAN DIFF REQ WBC (4.8 - 10.8 /CUMM) 7.8 RBC (4.70 - 6.10 /CUMM) 3.57 L Hgb (14.0 - 18.0 G/DL) 9.3 L Hct (42 - 52 %) 29.9 L MCV (80.0 - 94.0 FL) 83.7 MCH (27.0 - 31.0 PG) 26.1 L RDW (11.5 - 14.5 %) 18.8 H Plt Count (130 - 400 /CUMM) 133 MPV (7.4 - 10.4 FL) 8.7 Gran % (42.2 - 75.2 %) 70.1 Lymphocytes % (20.5 - 51.1 %) 15.1 L Monocytes % (1.7 - 9.3 %) 8.4 Eosinophils % (0 - 5 %) 5.6 H Basophils % (0.0 - 2.0 %) 0.8 Absolute Granulocytes (1.4 - 6.5 /CUMM) 5.5 Absolute Lymphocytes (1.2 - 3.4 /CUMM) 1.2 Absolute Monocytes (0.10 - 0.60 /CUMM) 0.7 H Absolute Eosinophils (0.0 - 0.7 /CUMM) 0.4 Absolute Basophils (0.0 - 0.2 /CUMM) 0.1 PUBS MCHC (33.0 - 37.0 G/DL) 31.2 L 04/19 1024 Coagulation PT (9.4 - 12.5 SEC) 17.2 H INR (0.90 - 1.17) 1.65 H
[2017-04-21 14:45] VITALS: BP 116/58
--- NOTE | 2017-04-21 16:18 | PN- Att Addend ---
Attending Addendum Attending Brief Note S: The patient had session with OT today and found it helpful. Still with cough w/o change. O: VS: Current Medications Sig/Johnna Start time Last Medication Dose Route Stop Time Status Admin Acetaminophen 650 MG Q4P PRN 01/31 1100 AC 04/21 PO 2127 Albuterol Sulfate 2 PUF Q4P PRN 02/06 0800 AC 03/26 INH 1734 Albuterol Sulfate 3 ML EVERY 4 HRS/AWAKE 02/05 1600 AC 04/21 INH 1551 Allopurinol 100 MG DAILY 02/20 1818 AC 04/21 PO 0915 Benzocaine/Menthol 1 LAZARO Q2P PRN 03/31 2215 AC PO Calcitriol 0.25 MCG TuThSa PRN 03/04 0745 AC IV Calcium Carbonate 500 MG BID PRN 04/08 1145 AC 04/13 PO 2152 Colchicine 300 MCG QTHURS 03/09 1000 AC 04/20 PO 1135 Colchicine 300 MCG QSUN 03/05 0700 AC 04/16 PO 0601 Diclofenac Sodium 1 MAI 4 TIMES/DAY 02/05 1400 AC 04/20 TOP 2151 Epoetin Guzman 4,000 UNIT TuThSa PRN 03/04 0745 AC IV Furosemide 80 MG DAILY 02/08 1138 AC 04/21 PO 0915 Guaifenesin 600 MG Q12 02/16 1000 AC 04/21 PO 2127 Guaifenesin/ 10 ML Q6P PRN 02/22 2130 AC 03/10 Dextromethorphan PO 2218 Insulin Aspart 0 TIDAC/HS 03/16 0800 AC 04/21 SC 1749 Multivitamins 1 TAB DAILY 03/23 1000 AC 04/21 PO 0915 Omeprazole 40 MG DAILY AC 02/12 1200 AC 04/21 PO 0542 Sodium Chloride 2 SPRAY Q4P PRN 01/31 0430 AC 02/05 CHULA 2133 Trazodone HCl 50 MG AT BEDTIME 01/30 2200 AC 04/21 PO 2127 Warfarin Sodium 6 MG COUMADIN 1700 ONE 04/21 1700 DC 04/21 PO 04/21 1701 1831 Vital Signs Date Time Temp Pulse Resp B/P B/P Pulse O2 O2 Flow FiO2 Mean Ox Delivery Rate 04/21 2251 98.3 60 20 116/50 95 Room Air 04/21 1554 Room Air 04/21 1445 97.4 61 20 116/58 93 04/21 0747 97 Room Air Room Air 04/21 0600 97.8 61 18 110/48 95 Room Air Intake & Output 04/22 0800 04/22 0000 04/21 1600 Intake Total 20 3000 Output Total Balance 20 3000 Intake, Oral 20 3000 Laboratory Tests 04/21 0700 Coagulation PT (9.4 - 12.5 SEC) 21.4 H INR (0.90 - 1.17) 2.05 H Current Medications Sig/Johnna Start time Last Medication Dose Route Stop Time Status Admin Acetaminophen 650 MG .STK-MED ONE 04/21 1945 DC PO 04/21 194 Acetaminophen 650 MG Q4P PRN 01/31 1100 AC 04/21 PO 212 Albuterol Sulfate 2 PUF Q4P PRN 02/06 0800 AC 03/26 INH 1734 Albuterol Sulfate 3 ML EVERY 4 HRS/AWAKE 02/05 1600 AC 04/22 INH 0655 Allopurinol 100 MG DAILY 02/20 1818 AC 04/21 PO 0915 Benzocaine/Menthol 1 LAZARO Q2P PRN 03/31 2215 AC PO Calcitriol 0.25 MCG TuThSa PRN 03/04 0745 AC IV Calcium Carbonate 500 MG BID PRN 04/08 1145 AC 04/13 PO 2152 Colchicine 300 MCG QTHURS 03/09 1000 AC 04/20 PO 1135 Colchicine 300 MCG QSUN 03/05 0700 AC 04/16 PO 0601 Diclofenac Sodium 1 MAI 4 TIMES/DAY 02/05 1400 AC 04/20 TOP 2151 Epoetin Guzman 4,000 UNIT TuThSa PRN 03/04 0745 AC IV Furosemide 80 MG DAILY 02/08 1138 AC 04/21 PO 0915 Guaifenesin 600 MG Q12 02/16 1000 AC 04/21 PO 2127 Guaifenesin/ 10 ML Q6P PRN 02/22 2130 AC 03/10 Dextromethorphan PO 2218 Insulin Aspart 0 TIDAC/HS 03/16 0800 AC 04/21 SC 1749 Multivitamins 1 TAB DAILY 03/23 1000 AC 04/21 PO 0915 Omeprazole 40 MG DAILY AC 02/12 1200 AC 04/22 PO 0535 Sodium Chloride 2 SPRAY Q4P PRN 01/31 0430 AC 02/05 CHULA 2133 Trazodone HCl 50 MG AT BEDTIME 01/30 2200 AC 04/21 PO 2127 Warfarin Sodium 6 MG COUMADIN 1700 ONE 04/21 1700 DC 04/21 PO 04/21 1701 1831 O: HEENT: stewart- moist mucosa w/o lesions Chest: clear Cor: RRR, nl S1, S2 w/o murm Abd: BS+, soft NT Ext: LUE - mild edema, mild pain on ROM, 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 Labs: Laboratory Tests 04/21/17 0700: PT 21.4 H, INR 2.05 H 04/20/17 0800: PT Cancelled, INR Cancelled 04/20/17 0730: Anion Gap 12, Estimated GFR 11 L, BUN/Creatinine Ratio 6.2 L, Glucose 139 H, Calcium 8.7, Phosphorus 5.4 H, Magnesium 1.7, Albumin 3.4 L, CBC w Diff NO MAN DIFF REQ, RBC 3.57 L, MCV 83.7, MCH 26.1 L, RDW 18.8 H, MPV 8.7, Gran % 70.1, Lymphocytes % 15.1 L, Monocytes % 8.4, Eosinophils % 5.6 H, Basophils % 0.8, Absolute Granulocytes 5.5, Absolute Lymphocytes 1.2, Absolute Monocytes 0.7 H, Absolute Eosinophils 0.4, Absolute Basophils 0.1, PUBS MCHC 31.2 L Impression/Plan: #Chronic Renal Failure- on hemodialysis. Plan: Continue dialysis qTu//. #LUE Pain/Edema- secondary to prior surgeries. OT consult appreciated. Plan: Exercises, etc. as prescribed by OT. #COPD- lungs clear today, however patient c/o cough with upper airway mucus. Is on Guaifenesin and Albuterol. Plan: Continue current meds and observe. #Gout- on Colchicine/Allopurinol. No c/o. Plan: Continue Colchicine and Allopurinol. #DM2- stable on insulin. Plan: Continue insulin. #PAF- on Coumadin with today's INR therapeutic. Plan: Continue Coumadin will give 6 mg this evening and check INR in morning. Has been using either 5 mg or 7.5 mg recently and may require 6 mg daily to maintain INR. #Social-still awaiting placement. Plan: As per case management.
[2017-04-21 22:51] VITALS: BP 116/50
[2017-04-22 07:26] VITALS: BP 132/64
[2017-04-22 08:27] LABS: ABSOLUTE BASOPHIL COUNT 0.1 /CUMM (0.0-0.2); ABSOLUTE EOSINOPHIL COUNT 0.5 /CUMM (0.0-0.7); ABSOLUTE GRANULOCYTE CT 6.6 /CUMM (1.4-6.5); ABSOLUTE LYMPH COUNT 1.5 /CUMM (1.2-3.4); ABSOLUTE MONOCYTE COUNT 0.7 /CUMM (0.10-0.60); BASOPHIL % 0.8 % (0.0-2.0); EOSINOPHIL % 5.8 % (0-5); GRANULOCYTE % 70.5 % (42.2-75.2); HEMATOCRIT 29.8 % (42-52); MEAN CORPUSCULAR HGB 26.2 PG (27.0-31.0); MEAN CORPUSCULAR HGB CONC 31.5 G/DL (33.0-37.0); MEAN CORPUSCULAR VOLUME 83.2 FL (80.0-94.0); PLATELET COUNT 148 /CUMM (130-400); RBC DISTRIBUTION WIDTH 18.5 % (11.5-14.5); RED BLOOD CELL CT 3.58 /CUMM (4.70-6.10); WHITE BLOOD CELL COUNT 9.3 /CUMM (4.8-10.8)
--- NOTE | 2017-04-22 10:54 | PN- Nephrology ---
Assessment/Plan Assessment: 1. End-stage renal disease/chronic kidney disease stage V. HD in progress. 2. Status post ischemic gut 3. CPOPD 4. DM 5. volume status? arriving below target, no UF today Suggestion: 1. Hemodialysis will be offered on Monday. Next dialysis will be planned for Monday 2. Await final disposition. Subjective Subjective: Seen with HD. slight cough Objective Vital Signs and I&Os Vital Signs Date Time Temp Pulse Resp B/P B/P Pulse O2 O2 Flow FiO2 Mean Ox Delivery Rate 04/22 0726 98.6 60 16 132/64 97 Room Air 04/22 0657 94 Room Air 04/21 2251 98.3 60 20 116/50 95 Room Air 04/21 1554 Room Air 04/21 1445 97.4 61 20 116/58 93 Intake & Output 04/22 1600 04/22 0400 04/21 1600 04/21 0400 04/20 1600 04/20 0400 Intake Total 395 24 8707 220 1040 120 Output Total 250 Balance 877 11 2030 220 790 120 Intake, Oral 767 72 0966 220 1040 120 Output, Stool 200 Output, Urine 50 Patient 178 lb 185 lb 178 lb Weight Weight Standing Scale Standing Scale Measurement Method Physical Exam: General Appearance: well developed/nourished, obese in NAD Head: atraumatic, normocephalic Eyes: Bilateral: PERRL, EOMI. Neck: normal inspection, trachea mid line, Respiratory: normal breath sounds, chest non-tender Cardiovascular: regular rate/rhythm, edema Gastrointestinal: ostomy in right upper quadrant. Extremities: normal inspection, no edema Neurologic/Psych: Awake, alert and cooperative Skin: intact, no rash no jaundice Results Pertinent Lab Results: Laboratory Tests 04/22 04/21 04/20 0751 0700 0800 Chemistry Sodium (137 - 145 mmol/L) 136 L Potassium (3.5 - 5.1 mmol/L) 5.2 H Chloride (98 - 107 mmol/L) 100 Carbon Dioxide (22 - 30 mmol/L) 25 Anion Gap (5 - 16) 11 BUN (9 - 20 mg/dL) 32 H Creatinine (0.7 - 1.2 mg/dL) 4.7 H Estimated GFR (>60 ml/min) 12 L BUN/Creatinine Ratio (7 - 25 %) 6.8 L Calcium (8.4 - 10.2 mg/dL) 8.8 Coagulation PT (9.4 - 12.5 SEC) 21.4 H Cancelled INR (0.90 - 1.17) 2.05 H Cancelled Hematology CBC w Diff NO MAN DIFF REQ WBC (4.8 - 10.8 /CUMM) 9.3 RBC (4.70 - 6.10 /CUMM) 3.58 L Hgb (14.0 - 18.0 G/DL) 9.4 L Hct (42 - 52 %) 29.8 L MCV (80.0 - 94.0 FL) 83.2 MCH (27.0 - 31.0 PG) 26.2 L RDW (11.5 - 14.5 %) 18.5 H Plt Count (130 - 400 /CUMM) 148 MPV (7.4 - 10.4 FL) 8.0 Gran % (42.2 - 75.2 %) 70.5 Lymphocytes % (20.5 - 51.1 %) 15.6 L Monocytes % (1.7 - 9.3 %) 7.3 Eosinophils % (0 - 5 %) 5.8 H Basophils % (0.0 - 2.0 %) 0.8 Absolute Granulocytes (1.4 - 6.5 /CUMM) 6.6 H Absolute Lymphocytes (1.2 - 3.4 /CUMM) 1.5 Absolute Monocytes (0.10 - 0.60 /CUMM) 0.7 H Absolute Eosinophils (0.0 - 0.7 /CUMM) 0.5 Absolute Basophils (0.0 - 0.2 /CUMM) 0.1 PUBS MCHC (33.0 - 37.0 G/DL) 31.5 L /15 0730 Chemistry Sodium (137 - 145 mmol/L) 135 L Potassium (3.5 - 5.1 mmol/L) 4.4 Chloride (98 - 107 mmol/L) 98 Carbon Dioxide (22 - 30 mmol/L) 26 Anion Gap (5 - 16) 12 BUN (9 - 20 mg/dL) 31 H Creatinine (0.7 - 1.2 mg/dL) 5.0 H Estimated GFR (>60 ml/min) 11 L BUN/Creatinine Ratio (7 - 25 %) 6.2 L Glucose (65 - 99 mg/dL) 139 H Calcium (8.4 - 10.2 mg/dL) 8.7 Phosphorus (2.5 - 4.5 mg/dL) 5.4 H Magnesium (1.6 - 2.3 mg/dL) 1.7 Albumin (3.5 - 5.0 g/dL) 3.4 L Hematology CBC w Diff NO MAN DIFF REQ WBC (4.8 - 10.8 /CUMM) 7.8 RBC (4.70 - 6.10 /CUMM) 3.57 L Hgb (14.0 - 18.0 G/DL) 9.3 L Hct (42 - 52 %) 29.9 L MCV (80.0 - 94.0 FL) 83.7 MCH (27.0 - 31.0 PG) 26.1 L RDW (11.5 - 14.5 %) 18.8 H Plt Count (130 - 400 /CUMM) 133 MPV (7.4 - 10.4 FL) 8.7 Gran % (42.2 - 75.2 %) 70.1 Lymphocytes % (20.5 - 51.1 %) 15.1 L Monocytes % (1.7 - 9.3 %) 8.4 Eosinophils % (0 - 5 %) 5.6 H Basophils % (0.0 - 2.0 %) 0.8 Absolute Granulocytes (1.4 - 6.5 /CUMM) 5.5 Absolute Lymphocytes (1.2 - 3.4 /CUMM) 1.2 Absolute Monocytes (0.10 - 0.60 /CUMM) 0.7 H Absolute Eosinophils (0.0 - 0.7 /CUMM) 0.4 Absolute Basophils (0.0 - 0.2 /CUMM) 0.1 PUBS MCHC (33.0 - 37.0 G/DL) 31.2 L
--- NOTE | 2017-04-22 11:08 | PN- Att Addend ---
Attending Addendum Attending Brief Note Patient is frustrated about being here. He is also depressed as his 27-year-old son recently of what he says is a heart attack. He was dialyzed today and he complains of a dry cough. On exam he is afebrile, blood pressures 130/60, pulse is 76 breathing at 16-18. Awake alert oriented, lungs have decreased breath sounds bilaterally, heart is S1-S2 irregular, abdomen has an ostomy and he has his chronic left upper extremity edema. Labs reviewed and are stable. INR is still pending. He is a 72-year-old with end-stage renal disease on hemodialysis, COPD, A. fib on Coumadin history of ischemic bowel was here awaiting placement. Continue his Mucinex for the cough with his COPD regimen. Clinically doesn't look like a pneumonia or infectious at this point. Will dose Coumadin 6 mg today and follow INR closely.
[2017-04-22 22:28] VITALS: BP 106/50
[2017-04-23 03:59] VITALS: BP 124/46
--- NOTE | 2017-04-23 04:10 | NUR ---
PT C/O FLU LIKE SYMPTOMS, BODY ACHE, SORE THROAT, COUGH, RESTLESSNESS, AND SLEEPLESSNESS AND REQUESTED A DOCTOR TO BE CALLED. PT ALSO SAID, "MAY BE I AM COMING DOWN WITH PNA." ADMINISTERED TYLENOL, ROBITUSSIN AND LOZENGES. DR BETTENCOURT CALLED AND UPDATED WITH PT'S CONCERNS WHO SAID THAT SHE WON'T BE ABLE TO COME RIGHT NOW BUT CAN ORDER A CHEST X-RAY. PT AGREED TO IT. WILL MONITOR.
--- NOTE | 2017-04-23 09:24 | PN- Att Addend ---
Attending Addendum Attending Brief Note Patient is worried that he is developing a pneumonia. He says that he felt like he had the flu yesterday with cough, bodyache late in the evening and he is going for a chest x-ray today. On exam he did have a low-grade temp of 100, blood pressure is 130/70, breathing at 16-18, pulse is 78. He is very frustrated about being here, frustrated about his general medical condition and has multiple complaints. In addition his young son recently which adds to his emotional state. His lungs have decreased breath sounds with scattered rhonchi, heart is S1-S2 regular irregular, abdomen he does have the ostomy and he has this chronic left upper extremity swelling that actually looks better than and I've seen him before. His INR yesterday was 2.3, his white count was 9000 and a chest x-ray is pending. He is an 72-year-old male with multiple medical problems including end-stage renal disease on hemodialysis, A. fib on Coumadin, and ostomy, COPD who is here awaiting placement. I have given 6 mg of Coumadin today, follow-up closely on the chest x-ray, he is on his usual COPD treatment including his Symbicort inhaler and will follow-up.
--- NOTE | 2017-04-23 09:50 | RADIOLOGY REPORT ---
EXAMINATION: XR CHEST CLINICAL INFORMATION: Cough and congestion. Sore throat. Concern for pneumonia. COMPARISON: Several priors including most recent of 03/10/17. TECHNIQUE: 2 views of the chest were obtained. FINDINGS: The left subclavian transvenous triple lead pacemaker/AICD remains in stable position. The right IJ dual lumen CVL remains in stable position with the tip reaching the right atrium. Sternal wires and vascular clips are present from previous cardiac surgery. There is a small left pleural effusion similar or slightly increased from previous. The lungs are clear with no pulmonary edema or other acute abnormality seen. IMPRESSION: Small left pleural effusion similar or slightly increased from previous. No new abnormality.
[2017-04-23 15:33] VITALS: BP 120/64
[2017-04-23 17:29] LABS: PT 25.1 SEC (9.4-12.5)
[2017-04-23 22:00] VITALS: BP 102/50
[2017-04-23 22:12] VITALS: BP 102/50
[2017-04-24 06:30] VITALS: BP 134/68
--- NOTE | 2017-04-24 06:58 | NUR ---
PT AWAKE ALL NIGHT, REQUESTING MULTIPLE MEDICATIONS TO HELP HIM SLEEP. MEDICATED PER EMAR. PT ANXIOUS, COUGHING, REQUESTING RESPIRATORY TO SEE HIM. 0600 PT STATES "I WILL NOT BE ABLE TO BREATH" O2 SAT 92% ON RA; PRODUCTIVE COUGH. DEMANDS TO SPEAK TO A DOCTOR. DR LINDO NOTIFIED ([phone]) STATED HE WILL ASSESS PT WHEN HE COMES IN FOR ROUNDS.
--- NOTE | 2017-04-24 08:26 | RADIOLOGY REPORT ---
EXAMINATION: XR PORTABLE CHEST CLINICAL INFORMATION: Dyspnea on exertion. Increased oxygen requirements. COMPARISON: 04/23/2017 TECHNIQUE: Portable frontal view of the chest was obtained. FINDINGS: Left chest wall 3-lead AICD/pacer is unchanged. Right sided dialysis catheter is unchanged. Median sternotomy wires appear intact. The lungs are well expanded. There is a persistent small left pleural effusion with associated airspace opacity. This is slightly increased from prior. The right lung is clear. No pneumothorax. The cardiomediastinal silhouette is unchanged, with a calcified aorta. IMPRESSION: Small left pleural effusion with associated airspace opacity, slightly increased from prior study.
[2017-04-24 08:29] LABS: ABSOLUTE BASOPHIL COUNT 0 /CUMM (0.0-0.2); ABSOLUTE EOSINOPHIL COUNT 0.3 /CUMM (0.0-0.7); ABSOLUTE GRANULOCYTE CT 8.5 /CUMM (1.4-6.5); ABSOLUTE LYMPH COUNT 1.3 /CUMM (1.2-3.4); BASOPHIL % 0.3 % (0.0-2.0); EOSINOPHIL % 2.6 % (0-5); GRANULOCYTE % 77.1 % (42.2-75.2); HEMATOCRIT 29.5 % (42-52); MEAN CORPUSCULAR HGB CONC 31.3 G/DL (33.0-37.0); MEAN CORPUSCULAR VOLUME 83.3 FL (80.0-94.0); MEAN PLATELET VOLUME 8.6 FL (7.4-10.4); PLATELET COUNT 141 /CUMM (130-400); RBC DISTRIBUTION WIDTH 18.5 % (11.5-14.5); RED BLOOD CELL CT 3.55 /CUMM (4.70-6.10)
[2017-04-24 08:35] LABS: PT 26.7 SEC (9.4-12.5)
--- NOTE | 2017-04-24 08:38 | NUR ---
07:50- PT O2 SAT 87% ON RA. PT C/O SOB, STATES "I CANNOT BREATHE". INCREASED RESPIRATORY EFFORT NOTED WITH ACESSORY MUSCLE USE. RR 20. HR 80. LUNGS WITH BILATERAL RHONCHI. RAPID REPONSE CALLED. CXR, BREATHING TREATMENT, LABWORK, SOLUMEDROL ORDERED/COMPLETED. WILL CONTINUE TO MONITOR.
--- NOTE | 2017-04-24 09:23 | NUR ---
OCCUPATIONAL THERAPY NOTE: PER CONVERSATION WITH RN, PT IS S/P RAPID RESPONSE THIS AM 2N TO RESPIATORY DISTRESS, OT IS CX FOR TODAY NOT APPROPRIATE DUE TO CHANGE IN MEDICAL STATUS. OT WILL F/U TOMORROW IF MEDIALLY APPROPRIATE. THANK YOU, ANGUS
--- NOTE | 2017-04-24 10:42 | Event Note ---
Event Note Event Note: Rapid response was called around 7.45am today. Patient was c/o shortness of breath and desturated to 87% on RA. On physical exam he was alert and oriented and in mild respiratory distress receiving a nebs. HEENT revealed PERRLA, moist mucous membranes. Cardiovascular exam, normal s1, s2, no murmers appreciated. Respiratory exam revealed b/l ronchi. Abdominal exam benign. Examiination of lower extremties revealed b/l 3+ lower extremity edema. Of note patient refuses to be evaluated by physicans or receive treatments and because he was c/o of SOB, the nurses wanted a physican to evaluate the patient. His sats came up to 92% after recieving breathing treatment Ordered stat labs including CBC, BEP, trop and EKG, and CXR. EKG showed HR 60, paced rythmn, no changes. Notified Dr. Ovalle and MOD.
--- NOTE | 2017-04-24 11:54 | PN- Att Addend ---
Attending Addendum Attending Brief Note 72M PMH COPD, ESRD on HD, paroxysmal atrial fibrillation on Coumadin, chronic diastolic CHF, T2DM, PVD, CAD, history of MGUS, neuropathy who was originally admitted with ischemic bowel which required resection and colostomy. Also with chronic left arm swelling since undergoing AV-fistula placement on 01/30/17. Currently patient is undergoing hemodialysis Monday per nephrology. He is awaiting for insurance paperwork to be completed so that he can be placed in a detention. Underwent fistulogram 03/27. Arm is significantly improved, as swelling has resolved and pain has nearly resolved. Desquamation is improving as well. 04/24/2017 : Patient deveopled shortness of breath overnight and rapid resposne called. Patient underwent chest xray suggestive of increasing airsapce opacity on left and found to be hypoxic requiring oxygen supplementation. AFVSS NAD NCAT Supple RRR, lungs bl rhochi and decreased breath sounds l>R. Soft, NTND, ostomy clean No LE edema, LUE edematous, non-tender Pulses intact A&Ox3 no focal deficits Plan - STARTED on i/v steroids, abx, oxygen supplementation, BDs, encourage complaince - Currently s/p AV fistula ligation on 03/27, will follow vascular recommmendations, suture removed - INR f/u. c/w 5 mg of Coumadin. recheck INR in am - Follow nephrology recommendations - Follow up with social work and case management regarding placement to [facility] - Patient encouraged to check INR and monitoring.
[2017-04-24 14:10] VITALS: BP 116/60
--- NOTE | 2017-04-24 15:48 | NUR ---
Following patients progress and supporting case managements efforts for dispositon planning. Have been in contact with DSS worker re: bank statements for which [facility] has requested directly from the bank. I assisted the patient today when he called the bank to be sure that a request had been received and had been processed. Bank reports that what they have has been submitted, but a second account could not be located. I will check with [facility] medical economics consultant again later this week. Emotional and social support offered to patient who is not feeling well today after a rapid response this morning.
[2017-04-24 22:04] VITALS: BP 140/60
[2017-04-25 06:50] VITALS: BP 136/58
[2017-04-25 08:29] LABS: ABSOLUTE BASOPHIL COUNT 0 /CUMM (0.0-0.2); ABSOLUTE EOSINOPHIL COUNT 0 /CUMM (0.0-0.7); ABSOLUTE LYMPH COUNT 0.4 /CUMM (1.2-3.4); ABSOLUTE MONOCYTE COUNT 0.3 /CUMM (0.10-0.60); BASOPHIL % 0 % (0.0-2.0); EOSINOPHIL % 0 % (0-5); MEAN PLATELET VOLUME 8.8 FL (7.4-10.4)
[2017-04-25 11:44] LABS: ABSOLUTE GRANULOCYTE CT 7.6 /CUMM (1.4-6.5); MEAN CORPUSCULAR VOLUME 83.8 FL (80.0-94.0); PLATELET COUNT 136 /CUMM (130-400); RBC DISTRIBUTION WIDTH 19.1 % (11.5-14.5); RED BLOOD CELL CT 3.82 /CUMM (4.70-6.10); WHITE BLOOD CELL COUNT 8.2 /CUMM (4.8-10.8)
--- NOTE | 2017-04-25 15:11 | PN- Att Addend ---
Attending Addendum Attending Brief Note 72M PMH COPD, ESRD on HD, paroxysmal atrial fibrillation on Coumadin, chronic diastolic CHF, T2DM, PVD, CAD, history of MGUS, neuropathy who was originally admitted with ischemic bowel which required resection and colostomy. Also with chronic left arm swelling since undergoing AV-fistula placement on 01/30/17. Currently patient is undergoing hemodialysis Monday per nephrology. He is awaiting for insurance paperwork to be completed so that he can be placed in a intermediate. Underwent fistulogram 03/27. Arm is significantly improved, as swelling has resolved and pain has nearly resolved. Desquamation is improving as well. 04/24/2017 : Patient deveopled shortness of breath overnight and rapid resposne called. Patient underwent chest xray suggestive of increasing airsapce opacity on left and found to be hypoxic requiring oxygen supplementation. 04/25/17 Patient clinically improving AFVSS NAD NCAT Supple RRR, lungs bl rhochi and decreased breath sounds l>R. Soft, NTND, ostomy clean No LE edema, LUE edematous, non-tender Pulses intact A&Ox3 no focal deficits Plan - c/w i/v steroids, abx, oxygen supplementation, BDs, encourage complaince - Currently s/p AV fistula ligation on 03/27, will follow vascular recommmendations, suture removed - INR f/u. c/w 5 mg of Coumadin. recheck INR in am - Follow nephrology recommendations - Follow up with social work and case management regarding placement to [facility] - Patient encouraged to check INR and monitoring.
--- NOTE | 2017-04-25 15:31 | PN- Nephrology ---
Assessment/Plan Assessment: 1. ESRD 2. Status post bowel resection with colostomy 01/28/17 for ischemic bowel 3. S/P RADHA AVF ligation (2/2 occlusion of cephalic arch by pacemaker leads) with persistent edema 4. COPD with frequent exacerbations and ?new infiltrate Suggestion: 1. Hemodialysis today uneventful 2. Respiratory treatments as needed 3. Continue steroids, antibiotics for now 4. Await disposition Subjective Subjective: Patient seen with hemodialysis today. Serum potassium elevated - dialysate potassium concentration adjusted appropriately. He deveopled shortness of breath last night with chest x-ray suggesting a possible opacity on the left. He remains afebrile with normal WBC, and is clinically improved today. Objective Vital Signs and I&Os Vital Signs Date Time Temp Pulse Resp B/P B/P Pulse O2 O2 Flow FiO2 Mean Ox Delivery Rate 04/25 1451 Nasal Cannula 04/25 0837 99 Nasal 3.0L Cannula 04/25 0800 Nasal 3.0L Cannula 04/25 0650 97.4 64 18 136/58 96 Nasal 2.0L Cannula 04/25 0030 98 Nasal 3.0L Cannula 04/25 0000 96 Nasal 3.5L Cannula 04/24 2204 97.8 59 20 140/60 96 04/24 1615 96 Room Air Room Air 04/24 1600 Nasal 3.0L Cannula Intake & Output 04/25 1600 04/25 0400 04/24 1600 04/24 0400 04/23 1600 04/23 0400 Intake Total 570 260 482 612 3988 100 Output Total 51 300 455 Balance 519 260 350 480 745 100 Intake, IV 10 20 Intake, Oral 560 240 968 635 2259 100 Output, Stool 51 250 450 Output, Urine 50 5 Patient 177 lb 187 lb Weight Weight Standing Scale Standing Scale Measurement Method Physical Exam: General: Well-developed white male in no acute distress Skin: No rash or jaundice HEENT: Conjunctivae pink, sclerae anicteric, mucous membranes moist Neck: Without masses or thyromegaly, no supraclavicular or cervical adenopathy Chest: Few rales right base otherwise relatively clear with no wheezes today Heart: Regular rate and rhythm without S3 or rub Abdomen: Obese, soft and nontender; colostomy Extremities: Without LE cyanosis or edema; +LUE edema (better) with amputated left index finger Neuro: No focal findings, no asterixis or myoclonus Results Pertinent Lab Results: Laboratory Tests 04/25 04/24 0730 0800 Chemistry Sodium (137 - 145 mmol/L) 136 L 138 Potassium (3.5 - 5.1 mmol/L) 6.1 *H 5.2 H Chloride (98 - 107 mmol/L) 102 102 Carbon Dioxide (22 - 30 mmol/L) 22 25 Anion Gap (5 - 16) 12 12 BUN (9 - 20 mg/dL) 46 H 26 H Creatinine (0.7 - 1.2 mg/dL) 5.8 *H 4.9 H Estimated GFR (>60 ml/min) 10 L 12 L BUN/Creatinine Ratio (7 - 25 %) 7.9 5.3 L Troponin I (<0.11 ng/ml) 0.05 Coagulation PT (9.4 - 12.5 SEC) 26.7 H INR (0.90 - 1.17) 2.57 H Hematology CBC w Diff MAN DIFF ORDERED NO MAN DIFF REQ WBC (4.8 - 10.8 /CUMM) 8.2 11.0 H RBC (4.70 - 6.10 /CUMM) 3.82 L 3.55 L Hgb (14.0 - 18.0 G/DL) 9.9 L 9.2 L Hct (42 - 52 %) 32.0 L 29.5 L MCV (80.0 - 94.0 FL) 83.8 83.3 MCH (27.0 - 31.0 PG) 26.0 L 26.0 L RDW (11.5 - 14.5 %) 19.1 H 18.5 H Plt Count (130 - 400 /CUMM) 136 141 MPV (7.4 - 10.4 FL) 8.8 8.6 Gran % (42.2 - 75.2 %) 92.0 H 77.1 H Lymphocytes % (20.5 - 51.1 %) 4.4 L 11.4 L Monocytes % (1.7 - 9.3 %) 3.6 8.6 Eosinophils % (0 - 5 %) 0 2.6 Basophils % (0.0 - 2.0 %) 0 L 0.3 Absolute Granulocytes (1.4 - 6.5 /CUMM) 7.6 H 8.5 H Absolute Lymphocytes (1.2 - 3.4 /CUMM) 0.4 L 1.3 Absolute Monocytes (0.10 - 0.60 /CUMM) 0.3 1.0 H Absolute Eosinophils (0.0 - 0.7 /CUMM) 0 0.3 Absolute Basophils (0.0 - 0.2 /CUMM) 0 0 Platelet Estimate (ADEQUATE) VERIFIED BY SMEAR Polychromasia 1+ Poikilocytosis 1+ Anisocytosis 1+ Ovalocytes 1+ Levan Cells 1+ PUBS MCHC (33.0 - 37.0 G/DL) 31.0 L 31.3 L 04/23 1625 Coagulation PT (9.4 - 12.5 SEC) 25.1 H INR (0.90 - 1.17) 2.41 H
[2017-04-25 15:53] VITALS: BP 132/54
--- NOTE | 2017-04-25 20:09 | NUR ---
PT EXPERIENCING LOOSE MUSTARD YELLOW STOOLS FROM COLOSTOMY. PT REPORTED STOOL IS NOT USUALLY THIS LOOSE. SPOKE WITH DR BETTENCOURT. TO ORDER CDIFF AND STOOL CULTURE.
[2017-04-25 22:47] VITALS: BP 120/56
[2017-04-26 06:49] VITALS: BP 118/60
[2017-04-26 08:17] LABS: PT 37.8 SEC (9.4-12.5)
--- NOTE | 2017-04-26 11:31 | PN- Att Addend ---
Attending Addendum Attending Brief Note 72M PMH COPD, ESRD on HD, paroxysmal atrial fibrillation on Coumadin, chronic diastolic CHF, T2DM, PVD, CAD, history of MGUS, neuropathy who was originally admitted with ischemic bowel which required resection and colostomy. Also with chronic left arm swelling since undergoing AV-fistula placement on 01/30/17. Currently patient is undergoing hemodialysis Monday per nephrology. He is awaiting for insurance paperwork to be completed so that he can be placed in a intermediate. Underwent fistulogram 03/27. Arm is significantly improved, as swelling has resolved and pain has nearly resolved. Desquamation is improving as well. 04/24/2017 : Patient deveopled shortness of breath overnight and rapid resposne called. Patient underwent chest xray suggestive of increasing airsapce opacity on left and found to be hypoxic requiring oxygen supplementation. 04/25/17 Patient clinically improving 04/26/17 Patient on room air, encouraged use of inhaled COPD therapy. AFVSS NAD NCAT Supple RRR, lungs bl WHEEZES Soft, NTND, ostomy clean No LE edema, LUE edematous, non-tender Pulses intact A&Ox3 no focal deficits Plan - change i/v steroids to PO steroids, abx, BDs, encouraged complaince - Currently s/p AV fistula ligation on 03/27, will follow vascular recommmendations, suture removed - INR f/u. c/w 5 mg of Coumadin. recheck INR in am - Follow nephrology recommendations - Follow up with social work and case management regarding placement to [facility] - Patient encouraged to check INR and monitoring.
[2017-04-26 14:51] VITALS: BP 132/80
--- NOTE | 2017-04-26 21:30 | NUR ---
PT CONCERNED ABOUT MUCOUS STOMA TO BE BEEFY RED, ENLARGED AND WITH SUDDEN LIGHT BROWN OUTPUT IN MODERATE AMT. PER PT, MUCOUS STOMA IS STICKING TO THE COLOSTOMY BAG UNLIKE BEFORE WHEN IT WAS SMALLER. PT DEMANDING A DOCTOR TO BE CALLED AND CHECK HIS MUCOUS STOMA. DR BETTENCOURT UPDATED AND REQUESTED TO COME AND SEE THE PT. SHE CAME AND ASSESSED THE PT AND PROMISED TO ADDRESS IT WITH THE MORNING SHIFT.
[2017-04-26 22:22] VITALS: BP 130/82
[2017-04-27 06:27] VITALS: BP 134/56
[2017-04-27 09:19] LABS: ABSOLUTE BASOPHIL COUNT 0 /CUMM (0.0-0.2); ABSOLUTE EOSINOPHIL COUNT 0 /CUMM (0.0-0.7); ABSOLUTE GRANULOCYTE CT 8.5 /CUMM (1.4-6.5); ABSOLUTE LYMPH COUNT 0.4 /CUMM (1.2-3.4); ABSOLUTE MONOCYTE COUNT 0.4 /CUMM (0.10-0.60); BASOPHIL % 0 % (0.0-2.0); EOSINOPHIL % 0 % (0-5); GRANULOCYTE % 90.9 % (42.2-75.2); MEAN CORPUSCULAR HGB 25.7 PG (27.0-31.0); MEAN CORPUSCULAR HGB CONC 30.8 G/DL (33.0-37.0); MEAN CORPUSCULAR VOLUME 83.5 FL (80.0-94.0); MEAN PLATELET VOLUME 8.3 FL (7.4-10.4); PLATELET COUNT 171 /CUMM (130-400); RBC DISTRIBUTION WIDTH 18.9 % (11.5-14.5); RED BLOOD CELL CT 3.84 /CUMM (4.70-6.10); WHITE BLOOD CELL COUNT 9.4 /CUMM (4.8-10.8)
--- NOTE | 2017-04-27 10:32 | NUR ---
OCCUPATIONAL THERAPY NOTE: UNABLE TO SEE PT TODAY, PT OFF THE UNIT RECEIVING HD. OT WILL F/U WITH PT TOMORROW IF APPROPRIATE.
--- NOTE | 2017-04-27 10:42 | PN- Nephrology ---
Assessment/Plan Assessment: 1. ESRD 2. Status post bowel resection with colostomy 01/28/17 for ischemic bowel 3. S/P RADHA AVF ligation (2/2 occlusion of cephalic arch by pacemaker leads) with persistent edema 4. COPD with frequent exacerbations and ?new infiltrate Suggestion: 1. Hemodialysis today in progress with ultrafiltration to his dry weight 2. Respiratory treatments as needed 3. Continue steroids, antibiotics for now 4. Await disposition Subjective Subjective: Patient has no new complaints today. He continues to cough but remains afebrile with normal WBC. Seen with hemodialysis. Objective Vital Signs and I&Os Vital Signs Date Time Temp Pulse Resp B/P B/P Pulse O2 O2 Flow FiO2 Mean Ox Delivery Rate 04/27 0809 89 Room Air 04/27 0627 98.1 64 16 134/56 94 Room Air 04/27 0315 Room Air 04/27 0000 Room Air 04/26 2222 98.1 60 19 130/82 94 Room Air 04/26 1600 93 Room Air 04/26 1451 97.9 63 18 132/80 93 Intake & Output 04/27 1600 04/27 0400 04/26 1600 04/26 0400 04/25 1600 04/25 0400 Intake Total 100 100 450 200 570 260 Output Total 50 51 Balance 100 100 400 200 519 260 Intake, IV 100 10 20 Intake, Oral 100 100 450 100 560 240 Output, Stool 50 51 Patient 183 lb 180 lb 177 lb Weight Weight Standing Scale Standing Scale Measurement Method Physical Exam: General: Well-developed white male in no acute distress Skin: No rash or jaundice HEENT: Conjunctivae pink, sclerae anicteric, mucous membranes moist Neck: Without masses or thyromegaly, no supraclavicular or cervical adenopathy Chest: Few rales right base otherwise relatively clear with no wheezes today Heart: Regular rate and rhythm without S3 or rub Abdomen: Obese, soft and nontender; colostomy Extremities: Without LE cyanosis or edema; +LUE edema (better) with amputated left index finger Neuro: No focal findings, no asterixis or myoclonus Results Pertinent Lab Results: Laboratory Tests 04/27 04/26 0830 0719 Chemistry Sodium (137 - 145 mmol/L) 135 L 137 Potassium (3.5 - 5.1 mmol/L) 4.7 4.7 Chloride (98 - 107 mmol/L) 98 101 Carbon Dioxide (22 - 30 mmol/L) 24 22 Anion Gap (5 - 16) 13 14 BUN (9 - 20 mg/dL) 56 H 35 H Creatinine (0.7 - 1.2 mg/dL) 5.0 H 3.4 H Estimated GFR (>60 ml/min) 11 L 18 L BUN/Creatinine Ratio (7 - 25 %) 10.8 10.3 Calcium (8.4 - 10.2 mg/dL) 8.4 Phosphorus (2.5 - 4.5 mg/dL) 4.7 H Magnesium (1.6 - 2.3 mg/dL) 1.9 Albumin (3.5 - 5.0 g/dL) 3.7 Coagulation PT (9.4 - 12.5 SEC) 37.8 H INR (0.90 - 1.17) 3.65 H Hematology CBC w Diff MAN DIFF ORDERED WBC (4.8 - 10.8 /CUMM) 9.4 RBC (4.70 - 6.10 /CUMM) 3.84 L Hgb (14.0 - 18.0 G/DL) 9.9 L Hct (42 - 52 %) 32.0 L MCV (80.0 - 94.0 FL) 83.5 MCH (27.0 - 31.0 PG) 25.7 L RDW (11.5 - 14.5 %) 18.9 H Plt Count (130 - 400 /CUMM) 171 MPV (7.4 - 10.4 FL) 8.3 Gran % (42.2 - 75.2 %) 90.9 H Lymphocytes % (20.5 - 51.1 %) 4.7 L Monocytes % (1.7 - 9.3 %) 4.4 Eosinophils % (0 - 5 %) 0 Basophils % (0.0 - 2.0 %) 0 L Absolute Granulocytes (1.4 - 6.5 /CUMM) 8.5 H Absolute Lymphocytes (1.2 - 3.4 /CUMM) 0.4 L Absolute Monocytes (0.10 - 0.60 /CUMM) 0.4 Absolute Eosinophils (0.0 - 0.7 /CUMM) 0 Absolute Basophils (0.0 - 0.2 /CUMM) 0 Platelet Estimate (ADEQUATE) VERIFIED BY SMEAR Polychromasia 1+ Poikilocytosis 1+ Anisocytosis 1+ Ovalocytes 1+ PUBS MCHC (33.0 - 37.0 G/DL) 30.8 L 04/25 0730 Chemistry Sodium (137 - 145 mmol/L) 136 L Potassium (3.5 - 5.1 mmol/L) 6.1 *H Chloride (98 - 107 mmol/L) 102 Carbon Dioxide (22 - 30 mmol/L) 22 Anion Gap (5 - 16) 12 BUN (9 - 20 mg/dL) 46 H Creatinine (0.7 - 1.2 mg/dL) 5.8 *H Estimated GFR (>60 ml/min) 10 L BUN/Creatinine Ratio (7 - 25 %) 7.9 Hematology CBC w Diff MAN DIFF ORDERED WBC (4.8 - 10.8 /CUMM) 8.2 RBC (4.70 - 6.10 /CUMM) 3.82 L Hgb (14.0 - 18.0 G/DL) 9.9 L Hct (42 - 52 %) 32.0 L MCV (80.0 - 94.0 FL) 83.8 MCH (27.0 - 31.0 PG) 26.0 L RDW (11.5 - 14.5 %) 19.1 H Plt Count (130 - 400 /CUMM) 136 MPV (7.4 - 10.4 FL) 8.8 Gran % (42.2 - 75.2 %) 92.0 H Lymphocytes % (20.5 - 51.1 %) 4.4 L Monocytes % (1.7 - 9.3 %) 3.6 Eosinophils % (0 - 5 %) 0 Basophils % (0.0 - 2.0 %) 0 L Absolute Granulocytes (1.4 - 6.5 /CUMM) 7.6 H Absolute Lymphocytes (1.2 - 3.4 /CUMM) 0.4 L Absolute Monocytes (0.10 - 0.60 /CUMM) 0.3 Absolute Eosinophils (0.0 - 0.7 /CUMM) 0 Absolute Basophils (0.0 - 0.2 /CUMM) 0 Platelet Estimate (ADEQUATE) VERIFIED BY SMEAR Polychromasia 1+ Poikilocytosis 1+ Anisocytosis 1+ Ovalocytes 1+ Uzma Cells 1+ PUBS MCHC (33.0 - 37.0 G/DL) 31.0 L
[2017-04-27 13:58] VITALS: BP 120/70
--- NOTE | 2017-04-27 14:01 | PN- Att Addend ---
Attending Addendum Attending Brief Note 72M PMH COPD, ESRD on HD, paroxysmal atrial fibrillation on Coumadin, chronic diastolic CHF, T2DM, PVD, CAD, history of MGUS, neuropathy who was originally admitted with ischemic bowel which required resection and colostomy. Also with chronic left arm swelling since undergoing AV-fistula placement on 01/30/17. Currently patient is undergoing hemodialysis Monday per nephrology. He is awaiting for insurance paperwork to be completed so that he can be placed in a long term. Underwent fistulogram 03/27. Arm is significantly improved, as swelling has resolved and pain has nearly resolved. Desquamation is improving as well. 04/24/2017 : Patient deveopled shortness of breath overnight and rapid resposne called. Patient underwent chest xray suggestive of increasing airsapce opacity on left and found to be hypoxic requiring oxygen supplementation. 04/25/17 Patient clinically improving 04/26/17 Patient on room air, encouraged use of inhaled COPD therapy. 04/27/17 reassured about colostomy bag, f/u surgery notified AFVSS NAD NCAT Supple RRR, lungs bl WHEEZES Soft, NTND, ostomy clean No LE edema, LUE edematous, non-tender Pulses intact A&Ox3 no focal deficits Plan - taper PO steroids, abx, BDs, encouraged complaince - Currently s/p AV fistula ligation on 03/27, will follow vascular recommmendations, suture removed - INR f/u. c/w 5 mg of Coumadin. recheck INR in am - Follow nephrology recommendations - Follow up with social work and case management regarding placement to [facility] - Patient encouraged to check INR and monitoring.
[2017-04-27 22:30] VITALS: BP 124/58
[2017-04-28 06:54] VITALS: BP 142/50
[2017-04-28 08:32] LABS: PT 23.3 SEC (9.4-12.5)
[2017-04-28 15:13] VITALS: BP 120/58
[2017-04-28 22:50] VITALS: BP 150/56
[2017-04-29 06:45] VITALS: BP 120/58
[2017-04-29 09:12] LABS: ABSOLUTE BASOPHIL COUNT 0 /CUMM (0.0-0.2); ABSOLUTE EOSINOPHIL COUNT 0 /CUMM (0.0-0.7); ABSOLUTE LYMPH COUNT 0.9 /CUMM (1.2-3.4); ABSOLUTE MONOCYTE COUNT 0.7 /CUMM (0.10-0.60); BASOPHIL % 0 % (0.0-2.0); EOSINOPHIL % 0.1 % (0-5); HEMATOCRIT 32.5 % (42-52); MEAN CORPUSCULAR HGB 25.4 PG (27.0-31.0); MEAN CORPUSCULAR HGB CONC 30.5 G/DL (33.0-37.0); MEAN CORPUSCULAR VOLUME 83.5 FL (80.0-94.0); MEAN PLATELET VOLUME 8.4 FL (7.4-10.4); PLATELET COUNT 166 /CUMM (130-400); RBC DISTRIBUTION WIDTH 19.5 % (11.5-14.5); RED BLOOD CELL CT 3.89 /CUMM (4.70-6.10); WHITE BLOOD CELL COUNT 10.6 /CUMM (4.8-10.8)
[2017-04-29 10:07] LABS: GRANULOCYTE % 84.8 % (42.2-75.2)
[2017-04-29 13:07] VITALS: BP 122/74
[2017-04-29 15:11] LABS: PT 18.2 SEC (9.4-12.5)
--- NOTE | 2017-04-29 17:11 | PN- Nephrology ---
Assessment/Plan Assessment: ESRD - HD performed earlier today. Is starting to get volume expanded. Needs to cut down on salt/fluid intake. Ischemic bowel - s/p resection. Clinically seems OK. Anemia - Hg 9.9. Suggestion: -HD performed today -Salt/fluid restriction -Next dialysis on Monday -Will need evaluation for new permanent access after discharge -Dispo planning Please call [phone] with ?'s Subjective Subjective: Dialysis performed earlier today No specific complaints Objective Vital Signs and I&Os Vital Signs Date Time Temp Pulse Resp B/P B/P Pulse O2 O2 Flow FiO2 Mean Ox Delivery Rate 04/29 1405 95 Room Air Room Air 04/29 1307 97.5 67 20 122/74 96 04/29 0645 97.8 60 20 120/58 93 Room Air 04/29 0213 Room Air 04/28 2250 97.7 59 20 150/56 99 Nasal 3.0L Cannula 04/28 1853 96 Room Air Intake & Output 04/29 1600 04/29 0400 04/28 1600 04/28 0400 04/27 1600 04/27 0400 Intake Total 690 480 720 120 520 100 Output Total 100 425 1 Balance 690 380 720 -305 519 100 Intake, Oral 690 480 720 120 520 100 Output, 25 Drainage Output, Stool 1 Output, Urine 100 400 Patient 187 lb 174 lb 183 lb Weight Weight Standing Scale Standing Scale Standing Scale Measurement Method Physical Exam: Gen - OK appearing HEENT - supple CV - RRR Chest - clear, but coughing Abd - soft, nontender, ostomyx2 Ext - 1+ edema with chronic skin changes Neuro - AOX3, grossly nonfocal Access - SALMA cath Current Medications: Current Medications Sig/Johnna Start time Last Medication Dose Route Stop Time Status Admin Acetaminophen 650 MG Q4P PRN 01/31 1100 AC 04/23 PO 0358 Albuterol Sulfate 2 PUF Q4P PRN 02/06 0800 AC 04/24 INH 1005 Albuterol Sulfate 3 ML EVERY 4 HRS/AWAKE 02/05 1600 AC 04/29 INH 1405 Allopurinol 100 MG DAILY 02/20 1818 AC 04/29 PO 1318 Amoxicillin/ 500 MG Q12 04/27 1000 AC 04/29 Clavulanate Potassium PO 1318 Benzocaine/Menthol 1 LAZARO Q2P PRN 03/31 2215 AC 04/25 PO 1301 Budesonide/ 2 PUF BID 04/22 1111 AC 04/29 Formoterol Fumarate INH 1318 Calcitriol 0.25 MCG TuThSa PRN 03/04 0745 AC IV Calcium Carbonate 500 MG BID PRN 04/08 1145 AC 04/29 PO 0602 Colchicine 300 MCG QTHURS 03/09 1000 AC 04/27 PO 1331 Colchicine 300 MCG QSUN 03/05 0700 AC 04/23 PO 0608 Diclofenac Sodium 1 MAI 4 TIMES/DAY 02/05 1400 AC 04/29 TOP 1318 Epoetin Guzman 4,000 UNIT TuThSa PRN 03/04 0745 AC IV Furosemide 80 MG DAILY 02/08 1138 AC 04/29 PO 1318 Guaifenesin 600 MG Q12 02/16 1000 AC 04/29 PO 1318 Guaifenesin/ 10 ML Q6P PRN 02/22 2130 AC 04/29 Dextromethorphan PO 06 Insulin Aspart 0 TIDAC/HS 03/16 0800 AC 04/29 SC 1317 Multivitamins 1 TAB DAILY 03/23 1000 AC 04/29 PO 1317 Omeprazole 40 MG DAILY AC 02/12 1200 AC 04/29 PO 0600 Prednisone 40 MG DAILY 04/26 1000 AC 04/29 PO 1317 Sodium Chloride 2 SPRAY Q4P PRN 01/31 0430 AC 02/05 CHULA 2133 Trazodone HCl 50 MG AT BEDTIME 01/30 2200 AC 04/28 PO 2144 Warfarin Sodium 5 MG COUMADIN 1700 ONE 04/29 1700 DC PO 04/29 1701 Results Pertinent Lab Results: Laboratory Tests 04/29 04/29 04/28 1405 0757 0705 Chemistry Sodium (137 - 145 mmol/L) 137 Potassium (3.5 - 5.1 mmol/L) 4.3 Chloride (98 - 107 mmol/L) 100 Carbon Dioxide (22 - 30 mmol/L) 23 Anion Gap (5 - 16) 15 BUN (9 - 20 mg/dL) 55 H Creatinine (0.7 - 1.2 mg/dL) 4.7 H Estimated GFR (>60 ml/min) 12 L BUN/Creatinine Ratio (7 - 25 %) 11.7 Glucose (65 - 99 mg/dL) 314 H Calcium (8.4 - 10.2 mg/dL) 8.7 Coagulation PT (9.4 - 12.5 SEC) 18.2 H 23.3 H INR (0.90 - 1.17) 1.74 H 2.24 H Hematology CBC w Diff NO MAN DIFF REQ WBC (4.8 - 10.8 /CUMM) 10.6 RBC (4.70 - 6.10 /CUMM) 3.89 L Hgb (14.0 - 18.0 G/DL) 9.9 L Hct (42 - 52 %) 32.5 L MCV (80.0 - 94.0 FL) 83.5 MCH (27.0 - 31.0 PG) 25.4 L RDW (11.5 - 14.5 %) 19.5 H Plt Count (130 - 400 /CUMM) 166 MPV (7.4 - 10.4 FL) 8.4 Gran % (42.2 - 75.2 %) 84.8 H Lymphocytes % (20.5 - 51.1 %) 8.7 L Monocytes % (1.7 - 9.3 %) 6.4 Eosinophils % (0 - 5 %) 0.1 Basophils % (0.0 - 2.0 %) 0 L Absolute Granulocytes (1.4 - 6.5 /CUMM) 9.0 H Absolute Lymphocytes (1.2 - 3.4 /CUMM) 0.9 L Absolute Monocytes (0.10 - 0.60 /CUMM) 0.7 H Absolute Eosinophils (0.0 - 0.7 /CUMM) 0 Absolute Basophils (0.0 - 0.2 /CUMM) 0 PUBS MCHC (33.0 - 37.0 G/DL) 30.5 L 04/27 04/27 04/27 1200 0935 0830 Chemistry Sodium (137 - 145 mmol/L) 135 L Potassium (3.5 - 5.1 mmol/L) 4.7 Chloride (98 - 107 mmol/L) 98 Carbon Dioxide (22 - 30 mmol/L) 24 Anion Gap (5 - 16) 13 BUN (9 - 20 mg/dL) 16 56 H Creatinine (0.7 - 1.2 mg/dL) 5.0 H Estimated GFR (>60 ml/min) 11 L BUN/Creatinine Ratio (7 - 25 %) 10.8 Calcium (8.4 - 10.2 mg/dL) 8.4 Phosphorus (2.5 - 4.5 mg/dL) 4.7 H Magnesium (1.6 - 2.3 mg/dL) 1.9 Albumin (3.5 - 5.0 g/dL) 3.7 Coagulation PT Cancelled INR Cancelled Hematology CBC w Diff MAN DIFF ORDERED WBC (4.8 - 10.8 /CUMM) 9.4 RBC (4.70 - 6.10 /CUMM) 3.84 L Hgb (14.0 - 18.0 G/DL) 9.9 L Hct (42 - 52 %) 32.0 L MCV (80.0 - 94.0 FL) 83.5 MCH (27.0 - 31.0 PG) 25.7 L RDW (11.5 - 14.5 %) 18.9 H Plt Count (130 - 400 /CUMM) 171 MPV (7.4 - 10.4 FL) 8.3 Gran % (42.2 - 75.2 %) 90.9 H Lymphocytes % (20.5 - 51.1 %) 4.7 L Monocytes % (1.7 - 9.3 %) 4.4 Eosinophils % (0 - 5 %) 0 Basophils % (0.0 - 2.0 %) 0 L Absolute Granulocytes (1.4 - 6.5 /CUMM) 8.5 H Absolute Lymphocytes (1.2 - 3.4 /CUMM) 0.4 L Absolute Monocytes (0.10 - 0.60 /CUMM) 0.4 Absolute Eosinophils (0.0 - 0.7 /CUMM) 0 Absolute Basophils (0.0 - 0.2 /CUMM) 0 Platelet Estimate (ADEQUATE) VERIFIED BY SMEAR Polychromasia 1+ Poikilocytosis 1+ Anisocytosis 1+ Ovalocytes 1+ PUBS MCHC (33.0 - 37.0 G/DL) 30.8 L Imaging/Other Studies: EXAM TYPE: RAD - XRY-PORTABLE CHEST XRAY EXAMINATION: XR PORTABLE CHEST CLINICAL INFORMATION: Dyspnea on exertion. Increased oxygen requirements. COMPARISON: 04/23/2017 TECHNIQUE: Portable frontal view of the chest was obtained. FINDINGS: Left chest wall 3-lead AICD/pacer is unchanged. Right sided dialysis catheter is unchanged. Median sternotomy wires appear intact. The lungs are well expanded. There is a persistent small left pleural effusion with associated airspace opacity. This is slightly increased from prior. The right lung is clear. No pneumothorax. The cardiomediastinal silhouette is unchanged, with a calcified aorta. IMPRESSION: Small left pleural effusion with associated airspace opacity, slightly increased from prior study.
[2017-04-29 22:40] VITALS: BP 140/56
[2017-04-30 06:03] VITALS: BP 132/80
[2017-04-30 08:32] LABS: PT 17.2 SEC (9.4-12.5)
--- NOTE | 2017-04-30 09:36 | PN- Att Addend ---
See Addendum Attending Addendum Attending Brief Note 72M PMH COPD, ESRD on HD, paroxysmal atrial fibrillation on Coumadin, chronic diastolic CHF, T2DM, PVD, CAD, history of MGUS, neuropathy who was originally admitted with ischemic bowel which required resection and colostomy. Also with chronic left arm swelling since undergoing AV-fistula placement on 01/30/17. Currently patient is undergoing hemodialysis Monday per nephrology. He is awaiting for insurance paperwork to be completed so that he can be placed in a custodial. Underwent fistulogram 03/27. Arm is significantly improved, as swelling has resolved and pain has nearly resolved. Desquamation is improving as well. 04/24/2017 : Patient deveopled shortness of breath overnight and rapid resposne called. Patient underwent chest xray suggestive of increasing airsapce opacity on left and found to be hypoxic requiring oxygen supplementation. 04/25/17 Patient clinically improving 04/26/17 Patient on room air, encouraged use of inhaled COPD therapy. 04/27/17 reassured about colostomy bag, f/u surgery notified 04/28/17 no acute issues AFVSS NAD NCAT Supple RRR, lungs bl WHEEZES Soft, NTND, ostomy clean No LE edema, LUE edematous, non-tender Pulses intact A&Ox3 no focal deficits Plan - taper PO steroids, abx, BDs, encouraged complaince - Currently s/p AV fistula ligation on 03/27, will follow vascular recommmendations, suture removed - INR f/u. c/w 5 mg of Coumadin. recheck INR in am - Follow nephrology recommendations - Follow up with social work and case management regarding placement to [facility] - Patient encouraged to check INR and monitoring.
--- NOTE | 2017-04-30 09:38 | PN- Att Addend ---
Attending Addendum Attending Brief Note 72M PMH COPD, ESRD on HD, paroxysmal atrial fibrillation on Coumadin, chronic diastolic CHF, T2DM, PVD, CAD, history of MGUS, neuropathy who was originally admitted with ischemic bowel which required resection and colostomy. Also with chronic left arm swelling since undergoing AV-fistula placement on 01/30/17. Currently patient is undergoing hemodialysis Monday per nephrology. He is awaiting for insurance paperwork to be completed so that he can be placed in a [facility]. Underwent fistulogram 03/27. Arm is significantly improved, as swelling has resolved and pain has nearly resolved. Desquamation is improving as well. 04/24/2017 : Patient deveopled shortness of breath overnight and rapid resposne called. Patient underwent chest xray suggestive of increasing airsapce opacity on left and found to be hypoxic requiring oxygen supplementation. 04/25/17 Patient clinically improving 04/26/17 Patient on room air, encouraged use of inhaled COPD therapy. 04/27/17 reassured about colostomy bag, f/u surgery notified 04/28/17 no acute issues 04/29/17 no acute issues AFVSS NAD NCAT Supple RRR, lungs bl WHEEZES Soft, NTND, ostomy clean No LE edema, LUE edematous, non-tender Pulses intact A&Ox3 no focal deficits Plan - taper PO steroids, abx, BDs, encouraged complaince - Currently s/p AV fistula ligation on 03/27, will follow vascular recommmendations, suture removed - INR f/u. c/w 5 mg of Coumadin. recheck INR in am - Follow nephrology recommendations - Follow up with social work and case management regarding placement to [facility] - Patient encouraged to check INR and monitoring.
[2017-04-30 14:08] VITALS: BP 120/68
[2017-04-30 21:32] VITALS: BP 132/50
[2017-05-01 07:25] VITALS: BP 128/60
[2017-05-01 09:14] LABS: PT 18.5 SEC (9.4-12.5)
--- NOTE | 2017-05-01 09:47 | PN- Att Addend ---
Attending Addendum Attending Brief Note 72M PMH COPD, ESRD on HD, paroxysmal atrial fibrillation on Coumadin, chronic diastolic CHF, T2DM, PVD, CAD, history of MGUS, neuropathy who was originally admitted with ischemic bowel which required resection and colostomy. Also with chronic left arm swelling since undergoing AV-fistula placement on 01/30/17. Currently patient is undergoing hemodialysis Monday per nephrology. He is awaiting for insurance paperwork to be completed so that he can be placed in a [facility]. Underwent fistulogram 03/27. Arm is significantly improved, as swelling has resolved and pain has nearly resolved. Desquamation is improving as well. 04/24/2017 : Patient deveopled shortness of breath overnight and rapid resposne called. Patient underwent chest xray suggestive of increasing airsapce opacity on left and found to be hypoxic requiring oxygen supplementation. 04/25/17 Patient clinically improving 04/26/17 Patient on room air, encouraged use of inhaled COPD therapy. 04/27/17 reassured about colostomy bag, f/u surgery notified 04/28/17 no acute issues 04/29/17 no acute issues 04/30/17 no acute issues AFVSS NAD NCAT Supple RRR, lungs bl WHEEZES Soft, NTND, ostomy clean No LE edema, LUE edematous, non-tender Pulses intact A&Ox3 no focal deficits Plan - taper PO steroids, abx, BDs, encouraged complaince - Currently s/p AV fistula ligation on 03/27, will follow vascular recommmendations, suture removed - INR f/u. c/w 5 mg of Coumadin. recheck INR in am - Follow nephrology recommendations - Follow up with social work and case management regarding placement to [facility] - Patient encouraged to check INR and monitoring.
[2017-05-01 14:18] VITALS: BP 120/72
--- NOTE | 2017-05-01 15:42 | NUR ---
CALLED DR LINDO REGARDING PTS ANTIBIOTIC MEDICATIONS. PTS ABD DISCONTINUED FOR TONIGHTS DOSE. PER DR LINDO, PT COMPLETED 7 DAY COURSE OF IV & PO ABX AND NO FURTHER ABX NEED TO BE ORDERED.
--- NOTE | 2017-05-01 21:07 | NUR ---
PT C/O OF FEELING WORSENING SOB AND NOT BEING ABLE TO BREATH. PT PLACED HIMSELF ON 2LNC. O2 SAT 99%, WHEN REMOVED O2 SAT WHILE CHECKING VITALS, O2 SAT REMAINED 99% ON RA. VITAL SIGNS: BP 110/60, P 60, T 97.5, RR 18. PT STATES HE HAS A COUGH THAT IS PRODUCING WHITE SPUTUM, THIS RN DID NOT WITNESS. DR SANFORD PAGED AND WILL COME SEE PT. PT UPDATED ON POC.
[2017-05-01 21:10] VITALS: BP 110/60
--- NOTE | 2017-05-01 21:45 | NUR ---
PT C/O SMELLING OF PAINT FOR WEEKS NOW. PT STATES "IT TAKES MY BREATH AWAY AND MAKES ME FEEL LIKE I CANT BREATHE, I DONT KNOW WHAT IT IS". THIS RN DOES NOT SMELL ANYTHING IN PTS ROOM. CHARGE NURSE MADE AWARE AND PT OFFERED TO MOVE INTO ROOM 236. PT STATING "I KNOW IM NOT CRAZY, I DONT KNOW IF ITS WHAT THEY WASH THE CLOTHES WITH OR IF ITS THE SMELL OF THE BATHROOM, ITS SOMETHING". PT AGREEABLE TO MOVE INTO ROOM 236.
--- NOTE | 2017-05-01 22:30 | NUR ---
PT IN ROOM 236, TOLERATING WELL. PT STATING "I FEEL BETTER ALREADY, I DONT SMELL PAINT ANYMORE". PT SITUATED AND RESTING IN CHAIR. OFFERS NO FURTHER COMPLAINTS. PRECAUTIONS MAINTAINED.
--- NOTE | 2017-05-02 05:20 | Event Note ---
Event Note Event Note: Patient requested to see a physician for persistent cough, shortness of breath. I went to examine him. Patient sees that he's been having persistent irritating cough, white colored sputum production, something feels stuck in his throat. Denies any chest pain, nausea, vomiting, headache. CVS: S1-S2, RRR. RS: Diffuse wheezing bilaterally Patient was recently treated for pneumonia. Continue nebulization for bronchospasm, Mucinex. : Patient significantly improved after nebulization. I was also called for elevated blood glucose. Suggested to give 4 units aspart insulin for nighttime coverage. Need to be addressed this in the morning.
[2017-05-02 05:50] VITALS: BP 118/58
--- NOTE | 2017-05-02 08:04 | NUR ---
ASSUMED CARE OF PATIENT AT 0700 DURING REPORT PATIENT APPEARS TO HAVE SHORTNESS OF BREATH, LISTENING TO LUNGS AND FOUND TO HAVE WHEEZES INS AND EXP THROUGHOUT, RESPIRATORY CALLED AND TREATMENT GIVEN, SAFETY MAINTAINED AT THIS TIME.
--- NOTE | 2017-05-02 08:59 | PN- Att Addend ---
Attending Addendum Attending Brief Note 72M PMH COPD, ESRD on HD, paroxysmal atrial fibrillation on Coumadin, chronic diastolic CHF, T2DM, PVD, CAD, history of MGUS, neuropathy who was originally admitted with ischemic bowel which required resection and colostomy. Also with chronic left arm swelling since undergoing AV-fistula placement on 01/30/17. Currently patient is undergoing hemodialysis Monday per nephrology. He is awaiting for insurance paperwork to be completed so that he can be placed in a [facility]. Underwent fistulogram 03/27. Arm is significantly improved, as swelling has resolved and pain has nearly resolved. Desquamation is improving as well. 04/24/2017 : Patient deveopled shortness of breath overnight and rapid resposne called. Patient underwent chest xray suggestive of increasing airsapce opacity on left and found to be hypoxic requiring oxygen supplementation. 04/25/17 Patient clinically improving 04/26/17 Patient on room air, encouraged use of inhaled COPD therapy. 04/27/17 reassured about colostomy bag, f/u surgery notified 04/28/17 no acute issues 04/29/17 no acute issues 04/30/17 no acute issues 05/01/17 Night blood glucose elevated given novolog 4 units. 05/02/17 no acute issues AFVSS NAD NCAT Supple RRR, lungs bl WHEEZES improving Soft, NTND, ostomy clean No LE edema, LUE edematous, non-tender Pulses intact A&Ox3 no focal deficits Plan - decreased PO steroids, completed abx, BDs albuterol and spiriva, encouraged complaince - Currently s/p AV fistula ligation on 03/27, will follow vascular recommmendations, suture removed - INR f/u. c/w 5 mg of Coumadin. recheck INR in am - Follow nephrology recommendations - Follow up with social work and case management regarding placement to [facility] - Patient encouraged to check INR and monitoring.
--- NOTE | 2017-05-02 09:15 | PN- Nephrology ---
Assessment/Plan Assessment: 1. End-stage renal disease/chronic kidney disease stage V. HD in progress. Next hemodialysis will be on 2. Status post ischemic gut with resection 3. COPD/asthma 4. DM 5. volume status today he is 3 kg above his stated dry of 81 kg Suggestion: 1. Hemodialysis will be offered on 2. Await final disposition. Subjective Subjective: Patient's treatment on dialysis today has been uneventful Objective Vital Signs and I&Os Vital Signs Date Time Temp Pulse Resp B/P B/P Pulse O2 O2 Flow FiO2 Mean Ox Delivery Rate 05/02 0806 98.0 05/02 0800 Room Air 05/02 0745 92 Room Air Room Air 05/02 0550 97.8 59 18 118/58 93 Room Air 05/02 0047 Room Air 05/02 0000 Nasal 2.0L Cannula 05/01 2110 97.5 60 18 110/60 99 Room Air 05/01 1623 96 Room Air Room Air 05/01 1600 Room Air 05/01 1418 98.0 80 19 120/72 95 Intake & Output 05/02 1600 05/02 0400 05/01 1600 05/01 0400 04/30 1600 04/30 0400 Intake Total 200 700 620 240 240 Output Total 50 Balance 150 700 620 240 240 Intake, Oral 200 700 620 240 240 Output, Urine 50 Patient 185 lb 186 lb 180 lb Weight Weight Standing Scale Standing Scale Standing Scale Measurement Method Physical Exam: General Appearance: well developed/nourished, obese in NAD Head: atraumatic, normocephalic Eyes: Bilateral: PERRL, EOMI. Neck: normal inspection, trachea mid line, Respiratory: normal breath sounds, chest non-tender Cardiovascular: regular rate/rhythm, edema Gastrointestinal: ostomy in right upper quadrant. Extremities: normal inspection, no edema Neurologic/Psych: Awake, alert and cooperative Skin: intact, no rash no jaundice Current Medications: Current Medications Sig/Johnna Start time Last Medication Dose Route Stop Time Status Admin Acetaminophen 650 MG Q4P PRN 01/31 1100 AC 04/23 PO 0358 Albuterol Sulfate 2 PUF Q4P PRN 02/06 0800 AC 04/24 INH 1005 Albuterol Sulfate 3 ML EVERY 4 HRS/AWAKE 02/05 1600 AC 05/02 INH 0745 Allopurinol 100 MG DAILY 02/20 181 AC 05/01 PO 0928 Amoxicillin/ 500 MG Q12 04/27 1000 DC 05/01 Clavulanate Potassium PO 0928 Benzocaine/Menthol 1 LAZARO Q2P PRN 03/31 2215 AC 04/30 PO 213 Budesonide/ 2 PUF BID 04/22 1111 AC 05/01 Formoterol Fumarate INH 9 Calcitriol 0.25 MCG TuThSa PRN 03/04 0745 AC IV Calcium Carbonate 500 MG BID PRN 04/08 1145 AC 04/30 PO 2139 Colchicine 300 MCG QTHURS 03/09 1000 AC 04/27 PO 1331 Colchicine 300 MCG QSUN 03/05 0700 AC 04/30 PO 0627 Diclofenac Sodium 1 MAI 4 TIMES/DAY 02/05 1400 AC 05/01 TOP 2049 Epoetin Guzman 4,000 UNIT TuThSa PRN 03/04 0745 AC IV Furosemide 80 MG DAILY 02/08 1138 AC 05/01 PO 0928 Guaifenesin 600 MG Q12 02/16 1000 AC 05/01 PO 2049 Guaifenesin/ 10 ML Q6P PRN 02/22 2130 AC 05/01 Dextromethorphan PO 2048 Insulin Aspart 4 UNITS ONCE ONE 05/01 2130 DC 05/01 SC 05/01 213 2203 Insulin Aspart 0 TIDAC/HS 03/16 0800 AC 05/02 SC 0735 Multivitamins 1 TAB DAILY 03/23 1000 AC 05/01 PO 0928 Omeprazole 40 MG DAILY AC 02/12 1200 AC 05/02 PO 0540 Prednisone 30 MG DAILY 05/02 1000 AC PO 05/04 1001 Prednisone 40 MG DAILY 04/26 1000 DC 05/01 PO 0928 Sodium Chloride 2 SPRAY Q4P PRN 01/31 0430 AC 02/05 CHULA 2133 Trazodone HCl 50 MG AT BEDTIME 01/30 2200 AC 05/01 PO 2049 Warfarin Sodium 5 MG COUMADIN 1700 ONE 05/02 1700 AC PO 05/02 1701 Warfarin Sodium 5 MG COUMADIN 1700 ONE 05/01 1700 DC 05/01 PO 05/01 1701 1645 Results Pertinent Lab Results: Laboratory Tests 05/02 05/01 04/30 04/29 0627 0828 0715 1405 Chemistry Sodium Pending Potassium Pending Chloride Pending Carbon Dioxide Pending Anion Gap Pending BUN Pending Creatinine Pending BUN/Creatinine Ratio Pending Calcium Pending Coagulation PT (9.4 - 12.5 SEC) Pending 18.5 H 17.2 H 18.2 H INR (0.90 - 1.17) Pending 1.77 H 1.65 H 1.74 H Hematology CBC w Diff Pending WBC Pending RBC Pending Hgb Pending Hct Pending MCV Pending MCH Pending RDW Pending Plt Count Pending MPV Pending PUBS MCHC Pending
[2017-05-02 09:25] LABS: ABSOLUTE BASOPHIL COUNT 0 /CUMM (0.0-0.2); ABSOLUTE EOSINOPHIL COUNT 0 /CUMM (0.0-0.7); ABSOLUTE GRANULOCYTE CT 13.9 /CUMM (1.4-6.5); ABSOLUTE LYMPH COUNT 0.8 /CUMM (1.2-3.4); ABSOLUTE MONOCYTE COUNT 0.7 /CUMM (0.10-0.60); BASOPHIL % 0 % (0.0-2.0); EOSINOPHIL % 0.2 % (0-5); GRANULOCYTE % 89.9 % (42.2-75.2); MEAN CORPUSCULAR HGB CONC 31.4 G/DL (33.0-37.0); MEAN CORPUSCULAR VOLUME 82.9 FL (80.0-94.0); MEAN PLATELET VOLUME 8.6 FL (7.4-10.4); PLATELET COUNT 147 /CUMM (130-400); RBC DISTRIBUTION WIDTH 19.9 % (11.5-14.5); RED BLOOD CELL CT 3.97 /CUMM (4.70-6.10); WHITE BLOOD CELL COUNT 15.5 /CUMM (4.8-10.8)
[2017-05-02 09:33] LABS: PT 22.9 SEC (9.4-12.5)
--- NOTE | 2017-05-02 10:53 | NUR ---
PATEINBowen LEFT FLOOR TO DIALYSIS AT 815 AM
[2017-05-02 13:13] VITALS: BP 125/60
--- NOTE | 2017-05-02 13:22 | NUR ---
PATIENT RETURNED FROM DIALYSIS, VSS, REFUSING WEIGHT AT THIS TIME, PER DIALYSIS TOOK 3 L OFF AND SHOULD BE 81 KG, MEDICATIONS GIVEN, CURRENTLY WORKING WITH OT, SAFETY MAINTAINED.
[2017-05-02 22:24] VITALS: BP 126/60
[2017-05-03 06:49] VITALS: BP 138/60
[2017-05-03 09:25] LABS: PT 21.7 SEC (9.4-12.5)
[2017-05-03 14:05] VITALS: BP 120/70
--- NOTE | 2017-05-03 21:55 | NUR ---
TIMTICK [phone] AT THIS TIME COVERED PER SS, CALL TO MOD TO MAKE AWARE
[2017-05-03 21:59] VITALS: BP 118/63
--- NOTE | 2017-05-03 22:07 | NUR ---
CALL PLACED TO JIMMY AVILA, TO MAKE AWARE OF FINGERSTICK OF [phone]. AWAITING CALL BACK
--- NOTE | 2017-05-03 22:19 | NUR ---
JUVENAL MADE AWARE OF FINGERSTICK [phone], WILL RECHECK AT 2300.
[2017-05-04 07:17] VITALS: BP 110/60
[2017-05-04 08:35] LABS: ABSOLUTE BASOPHIL COUNT 0 /CUMM (0.0-0.2); ABSOLUTE EOSINOPHIL COUNT 0.1 /CUMM (0.0-0.7); ABSOLUTE GRANULOCYTE CT 11.4 /CUMM (1.4-6.5); ABSOLUTE LYMPH COUNT 1.1 /CUMM (1.2-3.4); BASOPHIL % 0 % (0.0-2.0); EOSINOPHIL % 0.7 % (0-5); GRANULOCYTE % 83.8 % (42.2-75.2); HEMATOCRIT 32.9 % (42-52); MEAN CORPUSCULAR VOLUME 83.8 FL (80.0-94.0); MEAN PLATELET VOLUME 9.1 FL (7.4-10.4); PLATELET COUNT 129 /CUMM (130-400); RBC DISTRIBUTION WIDTH 20.1 % (11.5-14.5); RED BLOOD CELL CT 3.92 /CUMM (4.70-6.10); WHITE BLOOD CELL COUNT 13.6 /CUMM (4.8-10.8)
--- NOTE | 2017-05-04 09:25 | PN- Att Addend ---
Attending Addendum Attending Brief Note 72M PMH COPD, ESRD on HD, paroxysmal atrial fibrillation on Coumadin, chronic diastolic CHF, T2DM, PVD, CAD, history of MGUS, neuropathy who was originally admitted with ischemic bowel which required resection and colostomy. Also with chronic left arm swelling since undergoing AV-fistula placement on 01/30/17. Currently patient is undergoing hemodialysis Monday per nephrology. He is awaiting for insurance paperwork to be completed so that he can be placed in a senior care. Underwent fistulogram 03/27. Arm is significantly improved, as swelling has resolved and pain has nearly resolved. Desquamation is improving as well. 04/24/2017 : Patient deveopled shortness of breath overnight and rapid resposne called. Patient underwent chest xray suggestive of increasing airsapce opacity on left and found to be hypoxic requiring oxygen supplementation. 04/25/17 Patient clinically improving 04/26/17 Patient on room air, encouraged use of inhaled COPD therapy. 04/27/17 reassured about colostomy bag, f/u surgery notified 04/28/17 no acute issues 04/29/17 no acute issues 04/30/17 no acute issues 05/01/17 Night blood glucose elevated given novolog 4 units. 05/02/17 no acute issues 05/03/17 no acute issues 05/04/17 went for HD AFVSS NAD NCAT Supple RRR, lungs bl WHEEZES improving Soft, NTND, ostomy clean No LE edema, LUE edematous, non-tender Pulses intact A&Ox3 no focal deficits Plan - taper PO steroids complete, completed abx, BDs albuterol and spiriva, encouraged complaince - Currently s/p AV fistula ligation on 03/27, will follow vascular recommmendations, suture removed - INR f/u. c/w 5 mg of Coumadin. recheck INR in am - Follow nephrology recommendations - Follow up with social work and case management regarding placement to STR - Patient encouraged to check INR and monitoring.
--- NOTE | 2017-05-04 10:13 | PN- Nephrology ---
Assessment/Plan Assessment: 1. End-stage renal disease/chronic kidney disease stage V. HD in progress. Next hemodialysis will be on 2. Status post ischemic gut with resection 3. COPD/asthma 4. DM 5. volume status today he is 3 kg above his stated dry of 81 kg Suggestion: 1. Hemodialysis will be offered on Monday 2. Await final disposition. Subjective Subjective: Patient seen with hemodialysis in progress area he offers no specific complaints. His disposition has not yet been sorted out. Objective Vital Signs and I&Os Vital Signs Date Time Temp Pulse Resp B/P B/P Pulse O2 O2 Flow FiO2 Mean Ox Delivery Rate 05/04 0800 Room Air 05/04 0751 98 Room Air Room Air 05/04 0717 97.7 65 20 110/60 94 Room Air 05/04 0348 95 Room Air 05/03 2159 97.5 59 20 118/63 94 Room Air 05/03 1614 95 Room Air Room Air 05/03 1405 98.2 77 20 120/70 93 Intake & Output 05/04 1600 05/04 0400 05/03 1600 05/03 0400 05/02 1600 05/02 0400 Intake Total 700 800 700 Output Total 50 50 Balance 650 750 700 Intake, IV 0 Intake, Oral 700 800 700 Number 1 Bowel Movements Output, Stool 50 Output, Urine 50 Patient 192 lb 182 lb 181 lb Weight Weight Standing Scale Standing Scale Measurement Method Physical Exam: General Appearance: well developed/nourished, obese in NAD Head: atraumatic, normocephalic Eyes: Bilateral: PERRL, EOMI. Neck: normal inspection, trachea mid line, Respiratory: normal breath sounds, chest non-tender Cardiovascular: regular rate/rhythm, edema Gastrointestinal: ostomy in right upper quadrant. Extremities: normal inspection, positive edema Neurologic/Psych: Awake, alert and cooperative Skin: intact, no rash no jaundice Current Medications: Current Medications Sig/Johnna Start time Last Medication Dose Route Stop Time Status Admin Acetaminophen 650 MG .STK-MED ONE 05/03 2053 DC PO 05/03 2054 Acetaminophen 650 MG Q4P PRN 01/31 1100 AC 05/03 PO 2118 Albuterol Sulfate 2 PUF Q4P PRN 02/06 0800 AC 04/24 INH 1005 Albuterol Sulfate 3 ML EVERY 4 HRS/AWAKE 02/05 1600 AC 05/04 INH 0748 Allopurinol 100 MG DAILY 02/20 1818 AC 05/03 PO 1036 Benzocaine/Menthol 1 LAZARO Q2P PRN 03/31 2215 AC 04/30 PO 213 Budesonide/ 2 PUF BID 04/22 1111 AC 05/03 Formoterol Fumarate INH 2119 Calcitriol 0.25 MCG TuThSa PRN 03/04 0745 AC IV Calcium Carbonate 500 MG .STK-MED ONE 05/03 2053 DC PO 05/03 205 Calcium Carbonate 500 MG BID PRN 04/08 1145 AC 05/03 PO 2119 Colchicine 300 MCG QTHURS 03/09 1000 AC 04/27 PO 1331 Colchicine 300 MCG QSUN 03/05 0700 AC 04/30 PO 06 Diclofenac Sodium 1 MAI 4 TIMES/DAY 02/05 1400 AC 05/03 TOP 1654 Epoetin Guzman 4,000 UNIT TuThSa PRN 03/04 0745 AC IV Furosemide 80 MG DAILY 02/08 1138 AC 05/03 PO 1036 Guaifenesin 600 MG Q12 02/16 1000 AC 05/03 PO 2118 Guaifenesin/ 10 ML Q6P PRN 02/22 2130 AC 05/03 Dextromethorphan PO 211 Insulin Aspart 0 TIDAC/HS 03/16 0800 AC 05/03 SC 2151 Multivitamins 1 TAB DAILY 03/23 1000 AC 05/03 PO 1036 Omeprazole 40 MG DAILY AC 02/12 1200 AC 05/04 PO 0720 Prednisone 30 MG DAILY 05/02 1000 SC 05/03 PO 05/04 1001 1036 Sodium Chloride 2 SPRAY Q4P PRN 01/31 0430 AC 02/05 CHULA 2133 Trazodone HCl 50 MG AT BEDTIME 01/30 2200 AC 05/03 PO 2118 Warfarin Sodium 5 MG COUMADIN 1700 ONE 05/04 1700 UNVr PO 05/04 1701 Warfarin Sodium 5 MG COUMADIN 170 ONE 05/03 1700 DC 05/03 PO 05/03 1701 1653 Results Pertinent Lab Results: Laboratory Tests 05/04 05/03 0741 0900 Chemistry Sodium (137 - 145 mmol/L) 138 Potassium (3.5 - 5.1 mmol/L) 4.4 Chloride (98 - 107 mmol/L) 102 Carbon Dioxide (22 - 30 mmol/L) 21 L Anion Gap (5 - 16) 15 BUN (9 - 20 mg/dL) 69 H Creatinine (0.7 - 1.2 mg/dL) 5.5 *H Estimated GFR (>60 ml/min) 10 L BUN/Creatinine Ratio (7 - 25 %) 12.5 Calcium (8.4 - 10.2 mg/dL) 8.3 L Phosphorus (2.5 - 4.5 mg/dL) 5.8 H Magnesium (1.6 - 2.3 mg/dL) 1.7 Albumin (3.5 - 5.0 g/dL) 3.6 Coagulation PT (9.4 - 12.5 SEC) 21.7 H INR (0.90 - 1.17) 2.08 H Hematology CBC w Diff MAN DIFF ORDERED WBC (4.8 - 10.8 /CUMM) 13.6 H RBC (4.70 - 6.10 /CUMM) 3.92 L Hgb (14.0 - 18.0 G/DL) 10.2 L Hct (42 - 52 %) 32.9 L MCV (80.0 - 94.0 FL) 83.8 MCH (27.0 - 31.0 PG) 26.0 L RDW (11.5 - 14.5 %) 20.1 H Plt Count (130 - 400 /CUMM) 129 L MPV (7.4 - 10.4 FL) 9.1 Gran % (42.2 - 75.2 %) 83.8 H Lymphocytes % (20.5 - 51.1 %) 8.0 L Monocytes % (1.7 - 9.3 %) 7.5 Eosinophils % (0 - 5 %) 0.7 Basophils % (0.0 - 2.0 %) 0 L Absolute Granulocytes (1.4 - 6.5 /CUMM) 11.4 H Segmented Neutrophils (42.2 - 75.2 %) 83 H Band Neutrophils (0.0 - 5.0 %) 6 H Absolute Lymphocytes (1.2 - 3.4 /CUMM) 1.1 L Lymphocytes (20.5 - 51.1 %) 5 L Monocytes (1.7 - 9.3 %) 3 Absolute Monocytes (0.10 - 0.60 /CUMM) 1.0 H Eosinophils (0 - 5.0 %) 1 Absolute Eosinophils (0.0 - 0.7 /CUMM) 0.1 Absolute Basophils (0.0 - 0.2 /CUMM) 0 Metamyelocytes (0.0 - 1.0 %) 2 H Platelet Estimate (ADEQUATE) VERIFIED BY SMEAR Polychromasia 1+ Poikilocytosis 1+ Anisocytosis 1+ Ovalocytes FEW PUBS MCHC (33.0 - 37.0 G/DL) 31.0 L 05/02 627 Chemistry Sodium (137 - 145 mmol/L) 137 Potassium (3.5 - 5.1 mmol/L) 4.9 Chloride (98 - 107 mmol/L) 102 Carbon Dioxide (22 - 30 mmol/L) 20 L Anion Gap (5 - 16) 15 BUN (9 - 20 mg/dL) 77 H Creatinine (0.7 - 1.2 mg/dL) 5.8 *H Estimated GFR (>60 ml/min) 10 L BUN/Creatinine Ratio (7 - 25 %) 13.3 Calcium (8.4 - 10.2 mg/dL) 8.3 L Coagulation PT (9.4 - 12.5 SEC) 22.9 H INR (0.90 - 1.17) 2.20 H Hematology CBC w Diff MAN DIFF ORDERED WBC (4.8 - 10.8 /CUMM) 15.5 H RBC (4.70 - 6.10 /CUMM) 3.97 L Hgb (14.0 - 18.0 G/DL) 10.3 L Hct (42 - 52 %) 33.0 L MCV (80.0 - 94.0 FL) 82.9 MCH (27.0 - 31.0 PG) 26.0 L RDW (11.5 - 14.5 %) 19.9 H Plt Count (130 - 400 /CUMM) 147 MPV (7.4 - 10.4 FL) 8.6 Gran % (42.2 - 75.2 %) 89.9 H Lymphocytes % (20.5 - 51.1 %) 5.4 L Monocytes % (1.7 - 9.3 %) 4.5 Eosinophils % (0 - 5 %) 0.2 Basophils % (0.0 - 2.0 %) 0 L Absolute Granulocytes (1.4 - 6.5 /CUMM) 13.9 H Segmented Neutrophils (42.2 - 75.2 %) 82 H Band Neutrophils (0.0 - 5.0 %) 2 Absolute Lymphocytes (1.2 - 3.4 /CUMM) 0.8 L Lymphocytes (20.5 - 51.1 %) 4 L Monocytes (1.7 - 9.3 %) 5 Absolute Monocytes (0.10 - 0.60 /CUMM) 0.7 H Eosinophils (0 - 5.0 %) 1 Absolute Eosinophils (0.0 - 0.7 /CUMM) 0 Absolute Basophils (0.0 - 0.2 /CUMM) 0 Metamyelocytes (0.0 - 1.0 %) 4 H Myelocytes (0 - 0 %) 2 H Platelet Estimate (ADEQUATE) DECREASED Polychromasia 1+ Hypochromic-Microcytic 1+ Poikilocytosis 2+ Anisocytosis 2+ Ovalocytes 2+ Elliptocytes 1+ Schistocytes PUBS MCHC (33.0 - 37.0 G/DL) 31.4 L
[2017-05-04 12:00] VITALS: BP 120/56
[2017-05-04 12:00] LABS: PT 31.1 SEC (9.4-12.5)
[2017-05-04 14:17] VITALS: BP 120/70
[2017-05-04 22:24] VITALS: BP 116/44
--- NOTE | 2017-05-05 05:51 | NUR ---
SHIFT NOTE. PT AOX3. DENIED ANY PAIN. REQUESTED BREATHING TREATMENT AT 0100 FOR SOB AND WHEEZING, RECEIVED WITH REPORTED GOOD EFFECT, O2 SAT 93% ON ROOM AIR. INDEPENDENTLY OOB. COLOSTOMY AND L MUCOUS PLUG APPLIANCES INTACT. STOMA PINK. PT NOT DUE FOR DIALYSIS TODAY. LUE REMAINS HAVING TRACE EDEMA. WILL CONTINUE TO MONITOR.
[2017-05-05 07:08] VITALS: BP 124/54
[2017-05-05 08:30] LABS: PT 24.4 SEC (9.4-12.5)
--- NOTE | 2017-05-05 09:07 | PN- Att Addend ---
Attending Addendum Attending Brief Note 72M PMH COPD, ESRD on HD, paroxysmal atrial fibrillation on Coumadin, chronic diastolic CHF, T2DM, PVD, CAD, history of MGUS, neuropathy who was originally admitted with ischemic bowel which required resection and colostomy. Also with chronic left arm swelling since undergoing AV-fistula placement on 01/30/17. Currently patient is undergoing hemodialysis Monday per nephrology. He is awaiting for insurance paperwork to be completed so that he can be placed in a alf. Underwent fistulogram 03/27. Arm is significantly improved, as swelling has resolved and pain has nearly resolved. Desquamation is improving as well. 04/24/2017 : Patient deveopled shortness of breath overnight and rapid resposne called. Patient underwent chest xray suggestive of increasing airsapce opacity on left and found to be hypoxic requiring oxygen supplementation. 04/25/17 Patient clinically improving 04/26/17 Patient on room air, encouraged use of inhaled COPD therapy. 04/27/17 reassured about colostomy bag, f/u surgery notified 04/28/17 no acute issues 04/29/17 no acute issues 04/30/17 no acute issues 05/01/17 Night blood glucose elevated given novolog 4 units. 05/02/17 no acute issues 05/03/17 no acute issues 05/04/17 went for HD 05/05/17 No acute issues. AFVSS NAD NCAT Supple RRR, lungs bl WHEEZES improving Soft, NTND, ostomy clean No LE edema, LUE edematous, non-tender Pulses intact A&Ox3 no focal deficits Plan - taper PO steroids complete, completed abx, BDs albuterol and spiriva, encouraged complaince - Currently s/p AV fistula ligation on 03/27, will follow vascular recommmendations, suture removed - INR f/u. c/w 5 mg of Coumadin. recheck INR in am - Follow nephrology recommendations - Follow up with social work and case management regarding placement to STR - Patient encouraged to check INR and monitoring.
--- NOTE | 2017-05-05 13:30 | PN- Psychiatry ---
Assessment/Plan Impression: Identifying Info: 72-year-old male known to this service brought in by ambulance from dialysis to the emergency department on 01/28/2017 for abdominal pain and admitted to medicine. He has been on medicine continuously since that point and is currently waiting the results for title 19 application so he can be transferred to rehabilitation. Consult requested for depression. Of note, on 03/19/17 the patient found out that his 27-year-old son had suddenly in [place]. SUBJECTIVE Patient endorses some improvement in mood. Has been expressing gratitude for care. Frustration r/t recent PNA. Still having difficulty processing the sudden of his son. Briefly discusses his son's struggles with substance use. Brief ROS Gait: Did not observe, pt reports poor Sleep: Adequate Appetite: Adequate OBJECTIVE Mental Status Exam Presentation/Appearance: Cooperative with evaluation. Hospital garb. Sitting in bed. Orientation: x4 Sensorium: Awake and alert Eye contact: Appropriate Affect: Full range with tearfulness at times but less than previous meeting Mood: Dysphoric but improved Depression: Endorses but improved Denies Anxiety: Denies Thought Content: - Denies SI/HI, AH/VH, PI. States and also believes they will not kill themselves. - Endorses Hopeless/Helpless Thoughts Thought Process: Linear Associations: Appropriate Speech: Normal tone and rate Judgment: Intact Insight: Intact Cognition: Memory: Grossly intact Attention/Concentration: Grossly intact Fund of Knowledge: Adequate Abstractions: Did not assess MMSE: Did not assess ASSESSMENT 72-year-old male with a history of multiple chronic medical illnesses with frequent hospitalization as well as the recent of a son presents as depressed. While he currently declines, he would likely benefit from an antidepressant medication. It is agreeable to continuing meetings with [employer]. 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 We will continue to engage the patient. We will continue to encourage psychiatric follow-up. Thank you for including psychiatry in this case we'll follow on an ongoing basis Subjective Subjective: as above Objective Last 24 Hrs of Vital Signs/I&O Current Medications Sig/Johnna Start time Last Medication Dose Route Stop Time Status Admin Acetaminophen 650 MG Q4P PRN 01/31 1100 AC 05/03 PO 2119 Albuterol Sulfate 2 PUF Q4P PRN 02/06 0800 AC 04/24 INH 1005 Albuterol Sulfate 3 ML EVERY 4 HRS/AWAKE 02/05 1600 AC 05/05 INH 0859 Allopurinol 100 MG DAILY 02/20 1818 AC 05/05 PO 0755 Benzocaine/Menthol 1 LAZARO Q2P PRN 03/31 2215 AC 04/30 PO 2133 Budesonide/ 2 PUF BID 04/22 1111 AC 05/04 Formoterol Fumarate INH 2100 Calcitriol 0.25 MCG TuThSa PRN 03/04 0745 AC IV Calcium Carbonate 500 MG .STK-MED ONE 05/04 2059 DC PO 05/04 2100 Calcium Carbonate 500 MG BID PRN 04/08 1145 AC 05/04 PO 205 Colchicine 300 MCG QTHURS 03/09 1000 AC 05/04 PO 1153 Colchicine 300 MCG QSUN 03/05 0700 AC 04/30 PO 0627 Diclofenac Sodium 1 MAI 4 TIMES/DAY 02/05 1400 AC 05/03 TOP 1654 Epoetin Guzman 4,000 UNIT TuThSa PRN 03/04 0745 AC IV Furosemide 80 MG DAILY 02/08 1138 AC 05/05 PO 0755 Guaifenesin 600 MG Q12 02/16 1000 AC 05/05 PO 0755 Guaifenesin/ 10 ML Q6P PRN 02/22 2130 AC 05/04 Dextromethorphan PO 2058 Insulin Aspart 0 AT BEDTIME 05/05 2200 AC 05/04 SC 2237 Insulin Aspart 0 TIDAC 05/05 0800 AC 05/05 SC 0754 Insulin Aspart 5 UNITS ONCE ONE 05/04 2230 CAN SC 05/04 2231 Insulin Aspart 0 TIDAC/HS 03/16 0800 DC 05/04 SC 1712 Multivitamins 1 TAB DAILY 03/23 1000 AC 05/05 PO 0755 Omeprazole 40 MG DAILY AC 02/12 1200 AC 05/05 PO 0619 Sodium Chloride 2 SPRAY Q4P PRN 01/31 0430 AC 02/05 CHULA 2133 Trazodone HCl 50 MG AT BEDTIME 01/30 2200 AC 05/04 PO 2058 Warfarin Sodium 5 MG COUMADIN 1700 ONE 05/05 1700 AC PO 05/05 1701 Warfarin Sodium 5 MG COUMADIN 1700 ONE 05/04 1700 DC 05/04 PO 05/04 1701 1712 Laboratory Tests 05/05/17 0705: PT 24.4 H, INR 2.34 H Vital Signs Date Time Temp Pulse Resp B/P B/P Pulse O2 O2 Flow FiO2 Mean Ox Delivery Rate 05/05 0900 94 Room Air Room Air 05/05 0708 98.0 60 20 124/54 94 Room Air 05/05 0216 93 Room Air 05/05 0000 Room Air 05/04 2224 98.6 72 20 116/44 94 Room Air 05/04 1930 93 Room Air 05/04 1740 88 Room Air 05/04 1600 Room Air 05/04 1417 98.5 80 20 120/70 91 Intake & Output 05/05 1600 05/05 0800 05/05 0000 Intake Total 240 1000 Output Total Balance 240 1000 Intake, Oral 240 1000
[2017-05-05 14:42] VITALS: BP 128/52
--- NOTE | 2017-05-05 20:15 | NUR ---
PT C/O WORSENING EDEMA AND FEELING LIKE HE IS RETAINING MORE FLUIDS IN HIS LEGS THAT IS BUILDING UP. PT REQUESTING TO SEE . MD SANFORD NOTIFIED AND TO COME UP TO SEE PT.
--- NOTE | 2017-05-05 21:21 | Event Note ---
Event Note Event Note: I was called as patient was requesting to be seen by Doctor for worsening bilateral LE edema. On exam: bilateral pitting edema up to knees, no JVD, s1, s2 RRR, RS : diffuse wheezing bilaterally. CXR obtained to r/o pulm edema : Improving reviewed nephro notes: patient appears to have chronic LE edema. Reassured Consider 2 D echo He started talking about and " may be end is coming" : patient is being followed by psych
--- NOTE | 2017-05-05 22:00 | NUR ---
PATIENT CONTINUALLY COMPLAINING OF SOB. PATIENT ON 2L NC AT THIS TIME. WHEEZES HEARD THROUGHOUT LUNGS. PRODUCTIVE YELLOW COUGH. PATIENT ALSO CONCERNED WITH +3 PITTING EDEMA TO BLE. MD SANFORD NOTIFIED AND AT BEDSIDE TO ASSESS PATIENT. PORTABLE CXRAY ORDERED. PATIENT DENIES PAIN. WILL CONTINUE TO CLOSELY MONITOR.
--- NOTE | 2017-05-05 22:21 | RADIOLOGY REPORT ---
EXAMINATION: XR PORTABLE CHEST CLINICAL INFORMATION: Shortness of breath. Evaluate for pulmonary edema. COMPARISON: 04/24/2017. TECHNIQUE: Portable AP erect view of the chest was obtained. FINDINGS: The cardiomediastinal silhouette is stable appearing with a dual-lead in left-sided prepectoral AICD device with its 3 leads unchanged in appearance and position. A right-sided IJ dual-lumen hemodialysis catheter is again seen with its tip in the right atrium. Patient is status post median sternotomy and probable CABG with multiple intact sternal wires. Lungs appear better expanded on today's examination. There appears to be improvement in the previously identified left pleural effusion and atelectasis. The lungs and pleural spaces otherwise appear clear without evidence of congestion, consolidation, or significant appearing effusion or atelectasis. There is no evidence of pneumothorax or pulmonary edema. Included osseous structures appear largely unremarkable. IMPRESSION: Decreasing left lower lobe effusion and atelectasis. No evidence of pulmonary edema on today's exam.
[2017-05-05 22:42] VITALS: BP 120/50
[2017-05-06 06:59] VITALS: BP 120/50
--- NOTE | 2017-05-06 10:19 | PN- Att Addend ---
Attending Addendum Attending Brief Note Patient seen and examined. He is due for dialysis today. He is fairly unhappy about multiple issues. He is unhappy about still being here, the recent of his son and his ongoing respiratory issues among other things. On exam he is afebrile, saturating 92% on 3 L, breathing at 16-18 and his pressure is 130/70 He is awake alert oriented able to speak in full sentences and in no obvious respiratory distress, lungs have decreased breath sounds at the bases, heart is S1-S2 irregular, abdomen is soft with a colostomy and he has his vascular access catheter for dialysis. He has trace edema. This is a 72-year-old male with multiple medical problems including end-stage renal disease on hemodialysis he is on a Monday/ / Monday schedule and is due for dialysis shortly. He also has COPD, diabetes, peripheral arterial disease, coronary artery disease and A. fib on Coumadin with bowel resection and colostomy. He is here awaiting insurance clearance and placement. He developed a COPD exacerbation with bacterial bronchitis versus pneumonia with Moraxella and got treated with a short course of steroids and by mouth antibiotics. He finished his antibiotics on the and he finished his steroid regimen as well. He was complaining of ongoing shortness of breath and the night doctor ordered an x-ray which I reassured him is actually better. I suspect his shortness of breath is multifactorial including his ongoing COPD , ?volume overload from ESRD and he will be dialyzed today. We'll continue his TRC with nebs and his laba/steroid combination with his Mucinex and follow closely. Will dose his Coumadin for an INR of 2-3.
--- NOTE | 2017-05-06 12:59 | PN- Nephrology ---
Assessment/Plan Assessment: ESRD: Dialysis to take place momentarily, according to his Monday schedule. From a volume standpoint the patient is impressively fluid overloaded. He makes minimal urine this would discontinue Lasix as putting out less than 100 mL per day and this is not providing any benefit. Please confirm the patient's on 1 L per day fluid restriction. We'll increase 4 L of ultrafiltration today with dialysis. 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 Suggestion: HD today, 4 L of fluid removal planned Will stop the Lasix Confirm patient's on 1 L per day fluid restriction Extra dialysis treatment on Monday for additional fluid removal to address the volume overload Will follow along with you Froy Vasquez MD Subjective Subjective: Denies complaints initially however on further questioning feels a bit short of breath and more edematous. He had 3 L removed his last dialysis on . He says he is trying to keep his fluid intake down. We his 188 pounds today. His weights been as low as the 170s during his hospital stay Review of Systems: Positive shortness of breath and edema. No chest pain. Nausea vomiting or diarrhea Objective Vital Signs and I&Os Vital Signs Date Time Temp Pulse Resp B/P B/P Pulse O2 O2 Flow FiO2 Mean Ox Delivery Rate 05/06 1143 95 Nasal 2.0L Cannula 05/06 1009 20 95 Nasal 3.0L Cannula 05/06 0659 97.8 60 20 120/50 92 Nasal 3.0L Cannula 05/06 0140 98 Nasal 2.0L Cannula 05/06 0000 Nasal 2.0L Cannula 05/05 2242 98.7 60 20 120/50 91 Nasal Cannula 05/05 1551 100 Nasal 2.0L Cannula 05/05 1442 98.5 67 20 128/52 93 Intake & Output 05/06 1600 05/06 0400 05/05 0400 05/04 0400 Intake Total 100 222 663 0305 500 Output Total 100 50 500 Balance 0 50 480 1000 0 Intake, IV 0 Intake, Oral 100 265 885 6380 500 Number 100 Bowel Movements Output, Stool 500 Output, Urine 100 50 Patient 188 lb 183 lb Weight Weight Standing Scale Standing Scale Measurement Method Physical Exam: General: A+O x3. appears mildly dyspnic HEENT: NC/AT Neck:+JVD CV: RRR ctab; +dec BS at bases Abd: soft, obese NT Lower Ext: 2+ edema Neuro: neg tremor, asterixis : no loredo catheter Current Medications: Current Medications Sig/Johnna Start time Last Medication Dose Route Stop Time Status Admin Acetaminophen 650 MG Q4P PRN 01/31 1100 AC 05/03 PO 2119 Albuterol Sulfate 2 PUF Q4P PRN 02/06 0800 AC 04/24 INH 1005 Albuterol Sulfate 3 ML EVERY 4 HRS/AWAKE 02/05 1600 AC 05/06 INH 1141 Allopurinol 100 MG DAILY 02/20 1818 AC 05/05 PO 0755 Benzocaine/Menthol 1 LAZARO Q2P PRN 03/31 2215 AC 04/30 PO 213 Budesonide/ 2 PUF BID 04/22 1111 AC 05/05 Formoterol Fumarate INH 211 Calcitriol 0.25 MCG TuThSa PRN 03/04 0745 AC IV Calcium Carbonate 500 MG .STK-MED ONE 05/05 2122 DC PO 05/05 2123 Calcium Carbonate 500 MG BID PRN 04/08 1145 AC 05/05 PO 2124 Colchicine 300 MCG QTHURS 03/09 1000 AC 05/04 PO 1153 Colchicine 300 MCG QSUN 03/05 0700 AC 04/30 PO 0627 Diclofenac Sodium 1 MAI 4 TIMES/DAY 02/05 1400 AC 05/03 TOP 1654 Epoetin Guzman 4,000 UNIT TuThSa PRN 03/04 0745 AC IV Furosemide 80 MG DAILY 02/08 1138 AC 05/05 PO 0755 Guaifenesin 10 ML .STK-MED ONE 05/05 2123 DC PO 05/05 2124 Guaifenesin 600 MG Q12 02/16 1000 AC 05/05 PO 2110 Guaifenesin/ 10 ML .STK-MED ONE 05/05 2129 DC Dextromethorphan PO 05/05 213 Guaifenesin/ 10 ML Q6P PRN 02/22 213 AC 05/05 Dextromethorphan PO 2127 Insulin Aspart 0 AT BEDTIME 05/050 AC 05/04 SC 2237 Insulin Aspart 0 TIDAC 05/05 0800 AC 05/06 SC 1158 Multivitamins 1 TAB DAILY 03/23 1000 AC 05/05 PO 0755 Omeprazole 40 MG DAILY AC 02/12 1200 AC 05/06 PO 0547 Patient Medication 1 ED .STK-MED ONE 05/05 1411 DC Teaching ED 05/05 1412 Sodium Chloride 2 SPRAY Q4P PRN 01/31 0430 AC 02/05 CHULA 2133 Trazodone HCl 50 MG AT BEDTIME 01/30 2200 AC 05/05 PO 2111 Warfarin Sodium 5 MG COUMADIN 1700 ONE 05/06 1700 UNVr PO 05/06 1701 Warfarin Sodium 5 MG COUMADIN 170 ONE 05/05 1700 DC 05/05 PO 05/05 1701 1700 Results Pertinent Lab Results: Laboratory Tests 05/05 05/04 05/04 0705 1330 1120 Chemistry BUN (9 - 20 mg/dL) 25 H Coagulation PT (9.4 - 12.5 SEC) 24.4 H 31.1 H INR (0.90 - 1.17) 2.34 H 2.99 H 05/04 0741 Chemistry Sodium (137 - 145 mmol/L) 138 Potassium (3.5 - 5.1 mmol/L) 4.4 Chloride (98 - 107 mmol/L) 102 Carbon Dioxide (22 - 30 mmol/L) 21 L Anion Gap (5 - 16) 15 BUN (9 - 20 mg/dL) 69 H Creatinine (0.7 - 1.2 mg/dL) 5.5 *H Estimated GFR (>60 ml/min) 10 L BUN/Creatinine Ratio (7 - 25 %) 12.5 Calcium (8.4 - 10.2 mg/dL) 8.3 L Phosphorus (2.5 - 4.5 mg/dL) 5.8 H Magnesium (1.6 - 2.3 mg/dL) 1.7 Albumin (3.5 - 5.0 g/dL) 3.6 Hematology CBC w Diff MAN DIFF ORDERED WBC (4.8 - 10.8 /CUMM) 13.6 H RBC (4.70 - 6.10 /CUMM) 3.92 L Hgb (14.0 - 18.0 G/DL) 10.2 L Hct (42 - 52 %) 32.9 L MCV (80.0 - 94.0 FL) 83.8 MCH (27.0 - 31.0 PG) 26.0 L RDW (11.5 - 14.5 %) 20.1 H Plt Count (130 - 400 /CUMM) 129 L MPV (7.4 - 10.4 FL) 9.1 Gran % (42.2 - 75.2 %) 83.8 H Lymphocytes % (20.5 - 51.1 %) 8.0 L Monocytes % (1.7 - 9.3 %) 7.5 Eosinophils % (0 - 5 %) 0.7 Basophils % (0.0 - 2.0 %) 0 L Absolute Granulocytes (1.4 - 6.5 /CUMM) 11.4 H Segmented Neutrophils (42.2 - 75.2 %) 83 H Band Neutrophils (0.0 - 5.0 %) 6 H Absolute Lymphocytes (1.2 - 3.4 /CUMM) 1.1 L Lymphocytes (20.5 - 51.1 %) 5 L Monocytes (1.7 - 9.3 %) 3 Absolute Monocytes (0.10 - 0.60 /CUMM) 1.0 H Eosinophils (0 - 5.0 %) 1 Absolute Eosinophils (0.0 - 0.7 /CUMM) 0.1 Absolute Basophils (0.0 - 0.2 /CUMM) 0 Metamyelocytes (0.0 - 1.0 %) 2 H Platelet Estimate (ADEQUATE) VERIFIED BY SMEAR Polychromasia 1+ Poikilocytosis 1+ Anisocytosis 1+ Ovalocytes FEW PUBS MCHC (33.0 - 37.0 G/DL) 31.0 L
--- NOTE | 2017-05-06 14:01 | NUR ---
1330 - PATIENT GOING TO DIALYSIS AT THIS TIME.
[2017-05-06 17:21] LABS: PT 26.9 SEC (9.4-12.5)
--- NOTE | 2017-05-06 18:15 | NUR ---
PT ARRIVED BACK TO FLOOR. VSS. REORIENTED BACK TO ROOM. ON 3L NC AT 95% WITH PRODUCTIVE YELLOW COUGH AND EXER SOB.
[2017-05-06 18:30] VITALS: BP 115/65
--- NOTE | 2017-05-06 22:30 | NUR ---
PT C/O OF " I DONT FEEL GOOD, MAYBE THEY TOOK OFF TOO MUCH". PT BP 102/56 HR 62 99.8 ORALLY 94% 02 SAT ON 3L NC. PT FLUSHED. TACHYPNIC AT 26. PT WHEEZING THROUGHOUT, RESPIRATORY IN TO ASSESS AND ADMINISTER NEB TREATMENT. NOTIFIED AND WILL BE IN TO ASSESS. WILL MONITOR
[2017-05-06 22:31] VITALS: BP 102/56
--- NOTE | 2017-05-06 22:53 | Event Note ---
Event Note Event Note: I was asked to assess Mr. Arias as he was c/o difficulty breathing and just not feeling good. Vitals: Tmax 99.8, BP 102/56, HR 62, sats 94% on 3L. He underwent scheduled dialysis today, and patient felt they might have removed too much. On my evaluation, patient appeared flushed and was tachypneic, but albt to talk in complete sentences. He had received two duonebs by RT without much relief. On chest exam, he had bilateral expiratory wheezes. His CXR from May 05 showed decreasing left LL effusion and atelectasis, no pulmonary edema. He had recently developed bacterial bronchitis/ oneumonia and COPDE and was treated with antibiotics and steroids. On review, his steroid taper was discontinued abruptly. He did not received any taper after prednisone 30 mg (as per my review of orders with RN). I have given him solumedrol 125 mg once, and have placed him on a slow steroid taper (ordered). Will continue with nebs and symbicort. Patient was reassured, will continue to follow.
[2017-05-07 07:00] VITALS: BP 118/52
--- NOTE | 2017-05-07 09:33 | PN- Att Addend ---
Attending Addendum Attending Brief Note Patient has multiple complaints. He feels like the prednisone is helping him but now he is worried about his sugars. Overall he is unhappy about being here, unhappy about his her son's and all of his medical issues. He appears depressed has had psych follow-up and I' ll ensure that the he see him again tomorrow. Off note the cath lab technologist saw him last night and because he was wheezing and in mild respiratory distress she started a slow prednisone taper. On exam he has a low-grade temp of 99.5, pressure is good at 140/70, breathing at 18-20 with a sat of 95% on his usual 3 L of oxygen. Awake alert oriented, lungs have decreased breath sounds with scattered rhonchi, heart is S1-S2 irregular, abdomen is soft with his colostomy and he has his vascular access for his dialysis. His INR yesterday was 2.5. He is a 72-year-old with multiple medical problems including COPD, A. fib on Coumadin, previous bowel surgery with a colostomy, end-stage renal disease on hemodialysis and is here awaiting insurance paperwork and long-term placement. He had an event on April 24 with acute respiratory distress and was treated with a course of antibiotics for Moraxella bronchitis/pneumonia and a COPD exacerbation. I reviewed his steroid dose closely and on April 24 he got 125 mg IV and then he was started on a taper of IV Solu-Medrol that was changed to by mouth on April 26 and he got by mouth prednisone all the way from the to the with 40 and 30 mgand it was then stopped on the . Due to the issue off his respiratory complaints in the setting off wheezing he's been restarted on it and the cath lab technologist has given him a long taper off 10 mg q3 days. I will evaluate his sugars closely as on the taper, he likely will need some long-acting Levemir coverage. Will also follow up on the INR and dose the Coumadin today and ensure psych follow-up in a.m.
[2017-05-07 09:39] LABS: PT 24.3 SEC (9.4-12.5)
[2017-05-07 14:29] VITALS: BP 124/58
[2017-05-07 22:53] VITALS: BP 136/50
[2017-05-08 06:40] VITALS: BP 122/70
[2017-05-08 08:27] LABS: ABSOLUTE BASOPHIL COUNT 0 /CUMM (0.0-0.2); ABSOLUTE EOSINOPHIL COUNT 0 /CUMM (0.0-0.7); ABSOLUTE GRANULOCYTE CT 10.7 /CUMM (1.4-6.5); ABSOLUTE LYMPH COUNT 0.5 /CUMM (1.2-3.4); ABSOLUTE MONOCYTE COUNT 0.5 /CUMM (0.10-0.60); BASOPHIL % 0 % (0.0-2.0); EOSINOPHIL % 0 % (0-5); GRANULOCYTE % 91.7 % (42.2-75.2); HEMATOCRIT 32.5 % (42-52); MEAN CORPUSCULAR VOLUME 83.9 FL (80.0-94.0); MEAN PLATELET VOLUME 9.9 FL (7.4-10.4); PLATELET COUNT 97 /CUMM (130-400); RBC DISTRIBUTION WIDTH 21.8 % (11.5-14.5); RED BLOOD CELL CT 3.87 /CUMM (4.70-6.10); WHITE BLOOD CELL COUNT 11.6 /CUMM (4.8-10.8)
--- NOTE | 2017-05-08 09:07 | PN- Nephrology ---
Assessment/Plan Assessment: 1. ESRD: extra HD for UF in progress 2. Volume overload: UF today & tomorrow Suggestion: HD again tomorrow Await d/c to STR --> has outpt HD seat Subjective Subjective: No SOB Denies uremic sx No CP Objective Vital Signs and I&Os Vital Signs Date Time Temp Pulse Resp B/P B/P Pulse O2 O2 Flow FiO2 Mean Ox Delivery Rate 05/08 0640 97.7 63 20 122/70 94 Room Air 05/08 0000 Nasal 3.0L Cannula 05/073 98.7 66 20 136/50 94 Room Air 05/07 1600 02 05/07 1600 90 Room Air 05/07 1429 98.9 61 20 124/58 100 05/07 1146 93 Room Air Intake & Output 05/08 0400 05/07 1600 05/07 0400 05/06 1600 05/06 0400 Intake Total 30 100 100 Output Total 300 50 Balance 30 -200 50 Intake, Oral 30 100 100 Number 1 Bowel Movements Output, Stool 200 Output, Urine 100 50 Patient 185 lb 182 lb 186 lb 188 lb Weight Weight Standing Scale Standing Scale Standing Scale Standing Scale Measurement Method Physical Exam General Appearance: well developed/nourished, no apparent distress Head: atraumatic, normal appearance Ears, Nose, Throat: normal ENT inspection Respiratory: quiet respiration, lungs clear Cardiovascular: regular rate/rhythm Abdomen: soft, non-tender Extremities: pedal edema, swelling Neurologic/Psychiatric: awake, alert, oriented x 3 Current Medications: Current Medications Sig/Johnna Start time Last Medication Dose Route Stop Time Status Admin Acetaminophen 650 MG Q4P PRN 01/31 1100 AC 05/03 PO 211 Albuterol Sulfate 2 PUF Q4P PRN 02/06 0800 AC 04/24 INH 1005 Albuterol Sulfate 3 ML EVERY 4 HRS/AWAKE 02/05 1600 AC 05/08 INH 0540 Allopurinol 100 MG DAILY 02/20 1818 AC 05/07 PO 1105 Benzocaine/Menthol 1 LAZARO Q2P PRN 03/31 2215 AC 04/30 PO 2133 Budesonide/ 2 PUF BID 04/22 1111 AC 05/07 Formoterol Fumarate INH 2122 Calcitriol 0.25 MCG TuThSa PRN 03/04 0745 AC IV Calcium Carbonate 500 MG .STK-MED ONE 05/07 2122 DC PO 05/07 2123 Calcium Carbonate 500 MG BID PRN 04/08 1145 AC 05/07 PO 2123 Colchicine 300 MCG QTHURS 03/09 1000 AC 05/04 PO 1153 Colchicine 300 MCG QSUN 03/05 0700 AC 05/07 PO 0707 Diclofenac Sodium 1 MAI 4 TIMES/DAY 02/05 1400 AC 05/03 TOP 1654 Epoetin Guzman 4,000 UNIT TuThSa PRN 03/04 0745 AC IV Guaifenesin 600 MG Q12 02/16 1000 AC 05/07 PO 212 Guaifenesin/ 10 ML .STK-MED ONE 05/07 2121 DC Dextromethorphan PO 05/07 212 Guaifenesin/ 10 ML Q6P PRN 02/22 2130 AC 05/07 Dextromethorphan PO 212 Insulin Aspart 0 AT BEDTIME 05/05 2200 AC 05/07 SC 2123 Insulin Aspart 0 TIDAC 05/05 0800 AC 05/08 SC 0736 Multivitamins 1 TAB DAILY 03/23 1000 AC 05/07 PO 1105 Omeprazole 40 MG DAILY AC 02/12 1200 AC 05/08 PO 0554 Prednisone 10 MG DAILY 05/16 1000 AC PO 05/19 0959 Prednisone 20 MG DAILY 05/13 1000 AC PO 05/16 0959 Prednisone 30 MG DAILY 05/10 1000 AC PO 05/13 0959 Prednisone 40 MG DAILY 05/07 1000 AC 05/07 PO 05/10 0959 1014 Sodium Chloride 2 SPRAY Q4P PRN 01/31 0430 AC 02/05 CHULA 2133 Trazodone HCl 50 MG AT BEDTIME 01/30 2200 AC 05/07 PO 2122 Warfarin Sodium 5 MG COUMADIN 1700 ONE 05/07 1700 DC 05/07 PO 05/07 1701 1704 Results Pertinent Lab Results: Laboratory Tests 05/08 05/07 07 0800 0825 1700 Chemistry Sodium (137 - 145 mmol/L) 136 L Potassium (3.5 - 5.1 mmol/L) 4.5 Chloride (98 - 107 mmol/L) 98 Carbon Dioxide (22 - 30 mmol/L) 21 L Anion Gap (5 - 16) 17 H BUN (9 - 20 mg/dL) Pending Creatinine (0.7 - 1.2 mg/dL) Pending BUN/Creatinine Ratio (7 - 25 %) 12.1 Glucose (65 - 99 mg/dL) Pending Calcium (8.4 - 10.2 mg/dL) 8.7 Coagulation PT (9.4 - 12.5 SEC) 24.3 H 26.9 H INR (0.90 - 1.17) 2.33 H 2.59 H Hematology CBC w Diff MAN DIFF ORDERED WBC (4.8 - 10.8 /CUMM) 11.6 H RBC (4.70 - 6.10 /CUMM) 3.87 L Hgb (14.0 - 18.0 G/DL) 10.1 L Hct (42 - 52 %) 32.5 L MCV (80.0 - 94.0 FL) 83.9 MCH (27.0 - 31.0 PG) 26.0 L RDW (11.5 - 14.5 %) 21.8 H Plt Count (130 - 400 /CUMM) 97 L MPV (7.4 - 10.4 FL) 9.9 Gran % (42.2 - 75.2 %) 91.7 H Lymphocytes % (20.5 - 51.1 %) 4.2 L Monocytes % (1.7 - 9.3 %) 4.1 Eosinophils % (0 - 5 %) 0 Basophils % (0.0 - 2.0 %) 0 L Absolute Granulocytes (1.4 - 6.5 /CUMM) 10.7 H Absolute Lymphocytes (1.2 - 3.4 /CUMM) 0.5 L Absolute Monocytes (0.10 - 0.60 /CUMM) 0.5 Absolute Eosinophils (0.0 - 0.7 /CUMM) 0 Absolute Basophils (0.0 - 0.2 /CUMM) 0 Platelet Estimate (ADEQUATE) ADEQUATE Polychromasia 2+ Poikilocytosis 1+ Basophilic Stippling RARE Anisocytosis 1+ Ovalocytes FEW Uzma Cells RARE PUBS MCHC (33.0 - 37.0 G/DL) 31.0 L Imaging/Other Studies: COMPARISON: 04/24/2017. TECHNIQUE: Portable AP erect view of the chest was obtained. FINDINGS: The cardiomediastinal silhouette is stable appearing with a dual-lead in left-sided prepectoral AICD device with its 3 leads unchanged in appearance and position. A right-sided IJ dual-lumen hemodialysis catheter is again seen with its tip in the right atrium. Patient is status post median sternotomy and probable CABG with multiple intact sternal wires. Lungs appear better expanded on today's examination. There appears to be improvement in the previously identified left pleural effusion and atelectasis. The lungs and pleural spaces otherwise appear clear without evidence of congestion, consolidation, or significant appearing effusion or atelectasis. There is no evidence of pneumothorax or pulmonary edema. Included osseous structures appear largely unremarkable. IMPRESSION: Decreasing left lower lobe effusion and atelectasis. No evidence of pulmonary edema on today's exam.
[2017-05-08 11:08] VITALS: BP 140/60
[2017-05-08 14:44] VITALS: BP 120/66
--- NOTE | 2017-05-08 14:52 | PN- Att Addend ---
Attending Addendum Attending Brief Note Patient states that he feels a little bit better today. He still complaining of intermittent shortness of breath. He understands that he is on the long prednisone taper. On exam her pressure is 120/70, pulse is 76, breathing at 16-18 and sats are 92 % on 3 L. He is status post hemodialysis. Lungs have decreased breath sounds with scattered rhonchi, heart is S1-S2 regular, abdomen is soft he has his colostomy bag and he has a vascular access site catheter. His INR has been in the 2-3 range on 5mg of Coumadin and I'll continue the 5mg of Coumadin today. I noticed his platelet count today is 97,000 it's never been low in the past and is not currently getting heparin. I will check it again tomorrow to make sure it is not a lab error. Because her sugars have been on the high side on the long prednisone taper, will give low-dose Levemir coverage of 4 units twice a day with his NovoLog sliding scale and follow closely.
[2017-05-08 22:19] VITALS: BP 140/50
[2017-05-09 06:53] VITALS: BP 130/60
--- NOTE | 2017-05-09 07:27 | NUR ---
PT TO DIALYSIS AT THIS TIME. NO C/O DISCOMFORT OR DISTRESS
[2017-05-09 08:34] LABS: ABSOLUTE BASOPHIL COUNT 0 /CUMM (0.0-0.2); ABSOLUTE EOSINOPHIL COUNT 0 /CUMM (0.0-0.7); ABSOLUTE GRANULOCYTE CT 15.6 /CUMM (1.4-6.5); ABSOLUTE LYMPH COUNT 0.5 /CUMM (1.2-3.4); ABSOLUTE MONOCYTE COUNT 0.9 /CUMM (0.10-0.60); BASOPHIL % 0 % (0.0-2.0); EOSINOPHIL % 0.1 % (0-5); GRANULOCYTE % 91.6 % (42.2-75.2); HEMATOCRIT 32.2 % (42-52); MEAN CORPUSCULAR HGB 26.2 PG (27.0-31.0); MEAN CORPUSCULAR HGB CONC 31.2 G/DL (33.0-37.0); MEAN PLATELET VOLUME 8.9 FL (7.4-10.4); RBC DISTRIBUTION WIDTH 21.6 % (11.5-14.5); RED BLOOD CELL CT 3.83 /CUMM (4.70-6.10)
[2017-05-09 08:54] LABS: PLATELET COUNT 102 /CUMM (130-400)
--- NOTE | 2017-05-09 11:19 | PN- Nephrology ---
Assessment/Plan Assessment: 1. ESRD: HD in progress 2. Volume overload: UF 3 liters 3. Leukocytosis: ? source--> afebrile - watch for now Suggestion: Next HD Thur Await d/c to STR --> has outpt HD seat Subjective Subjective: No SOB Tolerated extra HD yesterday for UF but still swollen Objective Vital Signs and I&Os Vital Signs Date Time Temp Pulse Resp B/P B/P Pulse O2 O2 Flow FiO2 Mean Ox Delivery Rate 05/09 0653 97.9 64 20 130/60 94 Room Air 05/09 0328 93 Room Air 05/09 0000 Nasal 2.0L Cannula 05/08 2219 97.7 60 20 140/50 98 Room Air 05/08 1750 97 Nasal 2.0L Cannula 05/08 1600 Room Air 05/08 1444 98.6 77 20 120/66 91 Intake & Output 05/09 1600 05/09 0400 05/08 1600 05/08 0400 05/07 1600 05/07 0400 Intake Total 240 500 30 Output Total 50 125 Balance 190 375 30 Intake, Oral 240 500 30 Intake, Other Number 1 Bowel Movements Output, Gastric Drainage Output, Stool 50 Output, Urine 125 Patient 183 lb 180 lb 182 lb 186 lb Weight Weight Standing Scale Standing Scale Standing Scale Measurement Method Physical Exam General Appearance: well developed/nourished, no apparent distress Ears, Nose, Throat: normal ENT inspection Neck: normal inspection, R IJ HD cath Respiratory: rhonchi Cardiovascular: regular rate/rhythm Abdomen: soft, non-tender Extremities: swelling Neurologic/Psychiatric: awake, alert Skin: intact, normal color Current Medications: Current Medications Sig/Johnna Start time Last Medication Dose Route Stop Time Status Admin Acetaminophen 650 MG Q4P PRN 01/31 1100 AC 05/03 PO 2119 Albuterol Sulfate 2 PUF Q4P PRN 02/06 0800 AC 04/24 INH 1005 Albuterol Sulfate 3 ML EVERY 4 HRS/AWAKE 02/05 1600 AC 05/09 INH 0758 Allopurinol 100 MG DAILY 02/20 1818 AC 05/08 PO 1117 Benzocaine/Menthol 1 LAZARO Q2P PRN 03/31 2215 AC 05/09 PO 0029 Budesonide/ 2 PUF BID 04/22 1111 AC 05/08 Formoterol Fumarate INH 2120 Calcitriol 0.25 MCG TuThSa PRN 03/04 0745 AC IV Calcium Carbonate 500 MG .STK-MED ONE 05/08 211 DC PO 05/08 2116 Calcium Carbonate 500 MG BID PRN 04/08 1145 AC 05/08 PO 2119 Colchicine 300 MCG QTHURS 03/09 1000 AC 05/04 PO 1153 Colchicine 300 MCG QSUN 03/05 0700 AC 05/07 PO 0707 Diclofenac Sodium 1 MAI 4 TIMES/DAY 02/05 1400 AC 05/08 TOP 1127 Epoetin Guzman 4,000 UNIT TuThSa PRN 03/04 0745 AC IV Guaifenesin 600 MG Q12 02/16 1000 AC 05/08 PO 2119 Guaifenesin/ 10 ML .STK-MED ONE 05/08 2118 DC Dextromethorphan PO 05/08 2119 Guaifenesin/ 10 ML Q6P PRN 02/22 2130 AC 05/08 Dextromethorphan PO 2119 Insulin Aspart 0 AT BEDTIME 05/05 2200 AC 05/08 SC 2119 Insulin Aspart 0 TIDAC 05/05 0800 AC 05/08 SC 1655 Insulin Detemir 4 UNITS BID 05/08 1143 AC 05/08 SC 2119 Multivitamins 1 TAB DAILY 03/23 1000 AC 05/08 PO 1117 Omeprazole 40 MG DAILY AC 02/12 1200 AC 05/09 PO 0519 Prednisone 10 MG DAILY 05/16 1000 AC PO 05/19 0959 Prednisone 20 MG DAILY 05/13 1000 AC PO 05/16 0959 Prednisone 30 MG DAILY 05/10 1000 AC PO 05/13 0959 Prednisone 40 MG DAILY 05/07 1000 AC 05/08 PO 05/10 0959 1118 Sodium Chloride 2 SPRAY Q4P PRN 01/31 0430 AC 02/05 CHULA 2133 Trazodone HCl 50 MG AT BEDTIME 01/30 2200 AC 05/08 PO 2119 Warfarin Sodium 5 MG COUMADIN 1700 ONE 05/08 1700 DC 05/08 PO 05/08 1701 1603 Results Pertinent Lab Results: Laboratory Tests 05/09 05/08 0738 0800 Chemistry Sodium (137 - 145 mmol/L) 137 136 L Potassium (3.5 - 5.1 mmol/L) 4.2 4.5 Chloride (98 - 107 mmol/L) 100 98 Carbon Dioxide (22 - 30 mmol/L) 23 21 L Anion Gap (5 - 16) 14 17 H BUN (9 - 20 mg/dL) 60 H 63 H Creatinine (0.7 - 1.2 mg/dL) 4.7 H 5.2 *H Estimated GFR (>60 ml/min) 12 L 11 L BUN/Creatinine Ratio (7 - 25 %) 12.8 12.1 Glucose (65 - 99 mg/dL) 327 H 491 H Calcium (8.4 - 10.2 mg/dL) 8.7 8.7 Hematology CBC w Diff NO MAN DIFF REQ MAN DIFF ORDERED WBC (4.8 - 10.8 /CUMM) 17.0 H 11.6 H RBC (4.70 - 6.10 /CUMM) 3.83 L 3.87 L Hgb (14.0 - 18.0 G/DL) 10.0 L 10.1 L Hct (42 - 52 %) 32.2 L 32.5 L MCV (80.0 - 94.0 FL) 84.0 83.9 MCH (27.0 - 31.0 PG) 26.2 L 26.0 L RDW (11.5 - 14.5 %) 21.6 H 21.8 H Plt Count (130 - 400 /CUMM) 102 L 97 L MPV (7.4 - 10.4 FL) 8.9 9.9 Gran % (42.2 - 75.2 %) 91.6 H 91.7 H Lymphocytes % (20.5 - 51.1 %) 3.2 L 4.2 L Monocytes % (1.7 - 9.3 %) 5.1 4.1 Eosinophils % (0 - 5 %) 0.1 0 Basophils % (0.0 - 2.0 %) 0 L 0 L Absolute Granulocytes (1.4 - 6.5 /CUMM) 15.6 H 10.7 H Absolute Lymphocytes (1.2 - 3.4 /CUMM) 0.5 L 0.5 L Absolute Monocytes (0.10 - 0.60 /CUMM) 0.9 H 0.5 Absolute Eosinophils (0.0 - 0.7 /CUMM) 0 0 Absolute Basophils (0.0 - 0.2 /CUMM) 0 0 Platelet Estimate (ADEQUATE) ADEQUATE Polychromasia 2+ Poikilocytosis 1+ Basophilic Stippling RARE Anisocytosis 1+ Ovalocytes FEW Uzma Cells RARE PUBS MCHC (33.0 - 37.0 G/DL) 31.2 L 31.0 L 05/07 05/06 0825 1700 Coagulation PT (9.4 - 12.5 SEC) 24.3 H 26.9 H INR (0.90 - 1.17) 2.33 H 2.59 H
[2017-05-09 11:53] LABS: PT 41.3 SEC (9.4-12.5)
--- NOTE | 2017-05-09 12:02 | NUR ---
PT ARRIVED BACK TO FLOOR FROM DIALYSIS, WT 175.O LB, FS 216, SALMA CATH DRSG CHANGED DATED 05/09. CHOLOSTOMY BAG EMPTIED BY PATIENT. MEDIDICATIONS GIVEN.
--- NOTE | 2017-05-09 13:23 | PN- Att Addend ---
Attending Addendum Attending Brief Note Patient seen right after he came back from dialysis. He's tired and he feels like it got a lot of fluid. Blood pressure is 130/70, pulse is 78, breathing at 16-18. Afebrile Awake alert oriented, lungs are clear to auscultation, heart is S1-S2 is regular and abdomen has a colostomy bag. He has his vascular access site for dialysis. White count noted to be 17,000 and INR is 3.99. He is a 72-year-old with multiple medical problems including COPD and chronic respiratory failure, A. fib on Coumadin, diabetes and previous surgery for ischemic bowel with a colostomy. He is here awaiting placement. Recent COPD exacerbation and bacterial bronchitis/pneumonia. Completed a course of antibiotics and is now on a slow prednisone taper (off 10 mg Q3 dayS) . I think the white count is from the prednisone but obviously need to watch that closely and we will trend it. He's gotten 5 mg of Coumadin for a few days now and his INR was stable but now it jumped up to 3.9 so we'll obviously not give him any Coumadin today and follow tomorrow's INR. He was dialyzed 2 days in a row for excessive fluid removal and for volume overload and will need to follow that closely.
[2017-05-09 15:22] VITALS: BP 122/64
--- NOTE | 2017-05-09 16:40 | NUR ---
THIS NURSE WAS NOTIFIED BY RESPIRITORY THERAPIST THE PATIENT WAS REQUESTING THE NURSE. WHEN ENTERING THE ROOM THE PATIENT STATED HE HAD BEEN CALLING ALL DAY AND NO ONE HASCOME TO SEE HIM. THIS SKIDDER DRIVER MEDICATED THE PATIENT WHEN HE RETURNED FROM DIALYSIS AND HAVE CHECKED ON THEM HOURLY, THERE WERE NO CALLS REPORTED BY THE RUG TOUCH UP PAINTER , THE PATIENT ASKED THE NURSE TO LEAVE HIM ALONE IN THE ROOM AND DENIED TREATMENT OR MEDICATIONS
--- NOTE | 2017-05-09 18:06 | NUR ---
PT CALLED FOR ASSISTANCE, THIS RIGGER APPRENTICE RESPONDED AND WAS TOLD HE WANTED THE MST AND DID NOT WANT ASSISTANCE FROM THE NURSE
[2017-05-09 22:31] VITALS: BP 118/44
[2017-05-10 06:24] VITALS: BP 132/54
--- NOTE | 2017-05-10 10:58 | PN- Nephrology ---
Assessment/Plan Assessment: 1. ESRD: nop HD need today 2. Volume overload: still edematous --> UF tomorrow w HD 3. Leukocytosis: afebrile - prob due to steroids --> recheck Suggestion: HD tomorrow recheck CBC Await T19 for LTR --> has outpt HD seat Subjective Subjective: Less SOB - coughing; prednisone noted No CP Tolerated HD/UF yesterday Objective Vital Signs and I&Os Vital Signs Date Time Temp Pulse Resp B/P B/P Pulse O2 O2 Flow FiO2 Mean Ox Delivery Rate 05/10 08 98 Nasal 2.0L Cannula 05/10 624 97.9 60 20 132/54 96 Room Air 05/10 0220 93 Room Air 05/10 0000 Room Air 05/09 2231 98.4 61 20 118/44 96 Room Air 05/09 1522 98.6 63 18 122/64 97 Room Air 05/09 1223 98 Room Air Room Air Intake & Output 05/10 1600 05/10 0400 05/09 1600 05/09 0400 05/08 1600 05/08 0400 Intake Total 120 120 315 500 Output Total 50 50 50 125 Balance 70 70 265 375 Intake, Oral 120 120 315 500 Intake, Other Output, Gastric Drainage Output, Stool 50 Output, Urine 50 50 125 Patient 176 lb 175 lb 180 lb Weight Weight Standing Scale Standing Scale Measurement Method Physical Exam General Appearance: well developed/nourished, no apparent distress Head: atraumatic, normal appearance Neck: R IJ HD cath Respiratory: rhonchi Cardiovascular: regular rate/rhythm Abdomen: soft, non-tender, ostomy Extremities: swelling Neurologic/Psychiatric: awake, alert, oriented x 3 Current Medications: Current Medications Sig/Johnna Start time Last Medication Dose Route Stop Time Status Admin Acetaminophen 650 MG Q4P PRN 01/31 1100 AC 05/03 PO 2119 Albuterol Sulfate 2 PUF Q4P PRN 02/06 0800 AC 04/24 INH 1005 Albuterol Sulfate 3 ML EVERY 4 HRS/AWAKE 02/05 1600 AC 05/10 INH 0822 Allopurinol 100 MG DAILY 02/20 1818 AC 05/10 PO 0921 Benzocaine/Menthol 1 LAZARO Q2P PRN 03/31 2215 AC 05/09 PO 0029 Budesonide/ 2 PUF BID 04/22 1111 AC 05/10 Formoterol Fumarate INH 0920 Calcitriol 0.25 MCG TuThSa PRN 03/04 0745 AC IV Calcium Carbonate 500 MG BID PRN 04/08 1145 AC 05/09 PO 1939 Colchicine 300 MCG QTHURS 03/09 1000 AC 05/04 PO 1153 Colchicine 300 MCG QSUN 03/05 0700 AC 05/07 PO 0707 Diclofenac Sodium 1 MAI 4 TIMES/DAY 02/05 1400 AC 05/10 TOP 0922 Epoetin Guzman 4,000 UNIT TuThSa PRN 03/04 0745 AC IV Guaifenesin 600 MG Q12 02/16 1000 AC 05/10 PO 0921 Guaifenesin/ 10 ML Q6P PRN 02/22 2130 AC 05/10 Dextromethorphan PO 0224 Insulin Aspart 0 AT BEDTIME 05/05 2200 AC 05/09 SC 2154 Insulin Aspart 0 TIDAC 05/05 0800 AC 05/10 SC 0759 Insulin Detemir 4 UNITS BID 05/08 1143 AC 05/10 SC 1031 Multivitamins 1 TAB DAILY 03/23 1000 AC 05/10 PO 0920 Omeprazole 40 MG DAILY AC 02/12 1200 AC 05/10 PO 0540 Prednisone 10 MG DAILY 05/16 1000 AC PO 05/19 0959 Prednisone 20 MG DAILY 05/13 1000 AC PO 05/16 0959 Prednisone 30 MG DAILY 05/10 1000 AC 05/10 PO 05/13 0959 0921 Prednisone 40 MG DAILY 05/07 1000 DC 05/09 PO 05/10 0959 1153 Sodium Chloride 2 SPRAY Q4P PRN 01/31 0430 AC 02/05 CHULA 2133 Trazodone HCl 50 MG AT BEDTIME 01/30 2200 AC 05/09 PO 2155 Results Pertinent Lab Results: Laboratory Tests 05/09 05/09 05/09 1110 0738 0600 Chemistry Sodium (137 - 145 mmol/L) 137 Potassium (3.5 - 5.1 mmol/L) 4.2 Chloride (98 - 107 mmol/L) 100 Carbon Dioxide (22 - 30 mmol/L) 23 Anion Gap (5 - 16) 14 BUN (9 - 20 mg/dL) 60 H Creatinine (0.7 - 1.2 mg/dL) 4.7 H Estimated GFR (>60 ml/min) 12 L BUN/Creatinine Ratio (7 - 25 %) 12.8 Glucose (65 - 99 mg/dL) 327 H Calcium (8.4 - 10.2 mg/dL) 8.7 Coagulation PT (9.4 - 12.5 SEC) 41.3 H Cancelled INR (0.90 - 1.17) 3.99 H Cancelled Hematology CBC w Diff NO MAN DIFF REQ Cancelled WBC (4.8 - 10.8 /CUMM) 17.0 H Cancelled RBC (4.70 - 6.10 /CUMM) 3.83 L Cancelled Hgb (14.0 - 18.0 G/DL) 10.0 L Cancelled Hct (42 - 52 %) 32.2 L Cancelled MCV (80.0 - 94.0 FL) 84.0 Cancelled MCH (27.0 - 31.0 PG) 26.2 L Cancelled RDW (11.5 - 14.5 %) 21.6 H Cancelled Plt Count (130 - 400 /CUMM) 102 L Cancelled MPV (7.4 - 10.4 FL) 8.9 Cancelled Gran % (42.2 - 75.2 %) 91.6 H Lymphocytes % (20.5 - 51.1 %) 3.2 L Monocytes % (1.7 - 9.3 %) 5.1 Eosinophils % (0 - 5 %) 0.1 Basophils % (0.0 - 2.0 %) 0 L Absolute Granulocytes (1.4 - 6.5 /CUMM) 15.6 H Absolute Lymphocytes (1.2 - 3.4 /CUMM) 0.5 L Absolute Monocytes (0.10 - 0.60 /CUMM) 0.9 H Absolute Eosinophils (0.0 - 0.7 /CUMM) 0 Absolute Basophils (0.0 - 0.2 /CUMM) 0 PUBS MCHC (33.0 - 37.0 G/DL) 31.2 L Cancelled 07/03 0800 Chemistry Sodium (137 - 145 mmol/L) 136 L Potassium (3.5 - 5.1 mmol/L) 4.5 Chloride (98 - 107 mmol/L) 98 Carbon Dioxide (22 - 30 mmol/L) 21 L Anion Gap (5 - 16) 17 H BUN (9 - 20 mg/dL) 63 H Creatinine (0.7 - 1.2 mg/dL) 5.2 *H Estimated GFR (>60 ml/min) 11 L BUN/Creatinine Ratio (7 - 25 %) 12.1 Glucose (65 - 99 mg/dL) 491 H Calcium (8.4 - 10.2 mg/dL) 8.7 Hematology CBC w Diff MAN DIFF ORDERED WBC (4.8 - 10.8 /CUMM) 11.6 H RBC (4.70 - 6.10 /CUMM) 3.87 L Hgb (14.0 - 18.0 G/DL) 10.1 L Hct (42 - 52 %) 32.5 L MCV (80.0 - 94.0 FL) 83.9 MCH (27.0 - 31.0 PG) 26.0 L RDW (11.5 - 14.5 %) 21.8 H Plt Count (130 - 400 /CUMM) 97 L MPV (7.4 - 10.4 FL) 9.9 Gran % (42.2 - 75.2 %) 91.7 H Lymphocytes % (20.5 - 51.1 %) 4.2 L Monocytes % (1.7 - 9.3 %) 4.1 Eosinophils % (0 - 5 %) 0 Basophils % (0.0 - 2.0 %) 0 L Absolute Granulocytes (1.4 - 6.5 /CUMM) 10.7 H Absolute Lymphocytes (1.2 - 3.4 /CUMM) 0.5 L Absolute Monocytes (0.10 - 0.60 /CUMM) 0.5 Absolute Eosinophils (0.0 - 0.7 /CUMM) 0 Absolute Basophils (0.0 - 0.2 /CUMM) 0 Platelet Estimate (ADEQUATE) ADEQUATE Polychromasia 2+ Poikilocytosis 1+ Basophilic Stippling RARE Anisocytosis 1+ Ovalocytes FEW [place] Cells RARE PUBS MCHC (33.0 - 37.0 G/DL) 31.0 L
--- NOTE | 2017-05-10 14:41 | PN- Att Addend ---
Attending Addendum Attending Brief Note Patient is upset about frequent blood draws and says he already knows from his bruising that his INR is over 3 and we don't need a blood draw for that. He is also worried that he has anemia and we draw blood every day. I talked to him at length about the need to follow the white count and INR but he will not budge. At this point will defer CBC and INR to tomorrow morning during dialysis. Generally speaking he's continues to be unhappy about being here. He still coughing and I tried to explain to him that he is on a prednisone taper and has completed his antibiotic course. On exam blood pressure is 130/70, pulse is 76, breathing at 18-22 and he is afebrile. Lungs have decreased breath sounds at the bases, heart is S1-S2 regular, abdomen is obese with a colostomy bag and he has no edema. His left upper extremity the edema is much better and he does have multiple small ecchymosis and bruising on his upper extremities. Labs he refused. He is a 72-year-old with multiple medical problems including end-stage renal disease on hemodialysis, A. fib on Coumadin, previous ischemic bowel status post surgery now with a colostomy, recent COPD exacerbation with pneumonia having finished his antibiotic course and now on a prednisone taper, diabetes is here awaiting placement. I won't give him any Coumadin today as his INR yesterday was 3.9 and will follow the INR closely. I think the elevated white count reflects the steroids and will follow that as well.
[2017-05-10 15:03] VITALS: BP 140/60
[2017-05-10 22:34] VITALS: BP 136/58
--- NOTE | 2017-05-11 00:13 | NUR ---
PATIENT'S FINGERSTICK GLUCOSE LEVEL AT 2100 WAS 484. PATIENT WAS GIVEN 4 UNITS OF LEVEMIR AND 4 UNITS OF NOVOLOG PER EMAR. FINGERSTICK GLUCOSE WAS RECHECKED AT 2330 AND WAS 453. MD BETTENCOURT AWARE AND AN ADDITIONAL 2 UNITS OF NOVOLOG WAS ORDERED AND ADMINISTERED. BEDTIME SLIDING SCALE WAS INCREASED WELL. WILL CONTINUE TO MONITOR FINGERSTICK GLUCOSE LEVEL.
[2017-05-11 06:40] VITALS: BP 136/64
--- NOTE | 2017-05-11 07:30 | NUR ---
PT TAKEN VIA BED TO DIALYSIS. FINGERSTICK 249 PRIOR, PT DID NOT EAT AND INSULIN WAS NOT ADMINISTERED.
--- NOTE | 2017-05-11 07:55 | PN- Nephrology ---
Assessment/Plan Assessment: 1. ESRD: HD in progress 2. Volume overload: still edematous --> UF 4 liters as BP allows 3. Leukocytosis: recheck Suggestion: next HD Sat Await T19 for LTR --> has outpt HD seat Subjective Subjective: Mild cough & SOB No CP Objective Vital Signs and I&Os Vital Signs Date Time Temp Pulse Resp B/P B/P Pulse O2 O2 Flow FiO2 Mean Ox Delivery Rate 05/11 0640 97.7 73 22 136/64 97 Nasal 2.0L Cannula 05/11 0115 Room Air 05/11 0000 Nasal 2.0L Cannula 05/10 2234 97.7 60 19 136/58 96 Nasal Cannula 05/10 1655 98 Nasal 2.0L Cannula 05/10 1600 Room Air 05/10 1503 97.6 69 18 140/60 93 Room Air 05/10 0827 98 Nasal 2.0L Cannula 05/10 0800 99 Nasal 2.0L Cannula Intake & Output 05/11 1600 05/11 0400 05/10 1600 05/10 0400 05/09 1600 05/09 0400 Intake Total 360 300 120 120 315 500 Output Total 50 150 50 50 50 125 Balance 310 150 70 70 265 375 Intake, Oral 360 300 120 120 315 500 Output, Stool 100 50 Output, Urine 50 50 50 50 125 Patient 182 lb 176 lb 175 lb Weight Weight Standing Scale Standing Scale Measurement Method Physical Exam General Appearance: well developed/nourished, no apparent distress, alert Head: atraumatic, normal appearance Ears, Nose, Throat: normal ENT inspection Neck: R IJ cath Respiratory: wheezing (expir) Cardiovascular: regular rate/rhythm, edema Abdomen: soft, non-tender Extremities: swelling Neurologic/Psychiatric: awake, alert Results Pertinent Lab Results: Laboratory Tests 05/10 05/09 05/09 0600 1110 0738 Chemistry Sodium (137 - 145 mmol/L) 137 Potassium (3.5 - 5.1 mmol/L) 4.2 Chloride (98 - 107 mmol/L) 100 Carbon Dioxide (22 - 30 mmol/L) 23 Anion Gap (5 - 16) 14 BUN (9 - 20 mg/dL) 60 H Creatinine (0.7 - 1.2 mg/dL) 4.7 H Estimated GFR (>60 ml/min) 12 L BUN/Creatinine Ratio (7 - 25 %) 12.8 Glucose (65 - 99 mg/dL) 327 H Calcium (8.4 - 10.2 mg/dL) 8.7 Coagulation PT (9.4 - 12.5 SEC) Cancelled 41.3 H INR (0.90 - 1.17) Cancelled 3.99 H Hematology CBC w Diff Cancelled NO MAN DIFF REQ WBC (4.8 - 10.8 /CUMM) Cancelled 17.0 H RBC (4.70 - 6.10 /CUMM) Cancelled 3.83 L Hgb (14.0 - 18.0 G/DL) Cancelled 10.0 L Hct (42 - 52 %) Cancelled 32.2 L MCV (80.0 - 94.0 FL) Cancelled 84.0 MCH (27.0 - 31.0 PG) Cancelled 26.2 L RDW (11.5 - 14.5 %) Cancelled 21.6 H Plt Count (130 - 400 /CUMM) Cancelled 102 L MPV (7.4 - 10.4 FL) Cancelled 8.9 Gran % (42.2 - 75.2 %) 91.6 H Lymphocytes % (20.5 - 51.1 %) 3.2 L Monocytes % (1.7 - 9.3 %) 5.1 Eosinophils % (0 - 5 %) 0.1 Basophils % (0.0 - 2.0 %) 0 L Absolute Granulocytes (1.4 - 6.5 /CUMM) 15.6 H Absolute Lymphocytes (1.2 - 3.4 /CUMM) 0.5 L Absolute Monocytes (0.10 - 0.60 /CUMM) 0.9 H Absolute Eosinophils (0.0 - 0.7 /CUMM) 0 Absolute Basophils (0.0 - 0.2 /CUMM) 0 PUBS MCHC (33.0 - 37.0 G/DL) Cancelled 31.2 L 07/04 07/03 0600 0800 Chemistry Sodium (137 - 145 mmol/L) 136 L Potassium (3.5 - 5.1 mmol/L) 4.5 Chloride (98 - 107 mmol/L) 98 Carbon Dioxide (22 - 30 mmol/L) 21 L Anion Gap (5 - 16) 17 H BUN (9 - 20 mg/dL) 63 H Creatinine (0.7 - 1.2 mg/dL) 5.2 *H Estimated GFR (>60 ml/min) 11 L BUN/Creatinine Ratio (7 - 25 %) 12.1 Glucose (65 - 99 mg/dL) 491 H Calcium (8.4 - 10.2 mg/dL) 8.7 Coagulation PT Cancelled INR Cancelled Hematology CBC w Diff Cancelled MAN DIFF ORDERED WBC (4.8 - 10.8 /CUMM) Cancelled 11.6 H RBC (4.70 - 6.10 /CUMM) Cancelled 3.87 L Hgb (14.0 - 18.0 G/DL) Cancelled 10.1 L Hct (42 - 52 %) Cancelled 32.5 L MCV (80.0 - 94.0 FL) Cancelled 83.9 MCH (27.0 - 31.0 PG) Cancelled 26.0 L RDW (11.5 - 14.5 %) Cancelled 21.8 H Plt Count (130 - 400 /CUMM) Cancelled 97 L MPV (7.4 - 10.4 FL) Cancelled 9.9 Gran % (42.2 - 75.2 %) 91.7 H Lymphocytes % (20.5 - 51.1 %) 4.2 L Monocytes % (1.7 - 9.3 %) 4.1 Eosinophils % (0 - 5 %) 0 Basophils % (0.0 - 2.0 %) 0 L Absolute Granulocytes (1.4 - 6.5 /CUMM) 10.7 H Absolute Lymphocytes (1.2 - 3.4 /CUMM) 0.5 L Absolute Monocytes (0.10 - 0.60 /CUMM) 0.5 Absolute Eosinophils (0.0 - 0.7 /CUMM) 0 Absolute Basophils (0.0 - 0.2 /CUMM) 0 Platelet Estimate (ADEQUATE) ADEQUATE Polychromasia 2+ Poikilocytosis 1+ Basophilic Stippling RARE Anisocytosis 1+ Ovalocytes FEW [place] Cells RARE PUBS MCHC (33.0 - 37.0 G/DL) Cancelled 31.0 L
[2017-05-11 10:03] LABS: ABSOLUTE BASOPHIL COUNT 0 /CUMM (0.0-0.2); ABSOLUTE EOSINOPHIL COUNT 0 /CUMM (0.0-0.7); ABSOLUTE GRANULOCYTE CT 17.2 /CUMM (1.4-6.5); ABSOLUTE LYMPH COUNT 0.7 /CUMM (1.2-3.4); ABSOLUTE MONOCYTE COUNT 1.2 /CUMM (0.10-0.60); BASOPHIL % 0 % (0.0-2.0); EOSINOPHIL % 0.1 % (0-5); GRANULOCYTE % 89.9 % (42.2-75.2); MEAN CORPUSCULAR HGB 26.2 PG (27.0-31.0); MEAN CORPUSCULAR HGB CONC 30.9 G/DL (33.0-37.0); MEAN CORPUSCULAR VOLUME 84.7 FL (80.0-94.0); MEAN PLATELET VOLUME 8.9 FL (7.4-10.4); PLATELET COUNT 91 /CUMM (130-400); RBC DISTRIBUTION WIDTH 21.2 % (11.5-14.5); RED BLOOD CELL CT 3.79 /CUMM (4.70-6.10); WHITE BLOOD CELL COUNT 19.1 /CUMM (4.8-10.8)
[2017-05-11 10:28] LABS: PT 22.6 SEC (9.4-12.5)
--- NOTE | 2017-05-11 11:35 | NUR ---
OCCUPATIONAL THERAPY NOTE: CHART REVIEWED, PT WITH BLOOD GLUCOSE 453, OT CANCELLED FOR TODAY. OT WILL F/U TOMORROW IF MEDICALLY APPROPRIATE.
[2017-05-11 12:19] VITALS: BP 126/58
--- NOTE | 2017-05-11 12:30 | NUR ---
RETURNED FROM DIALYSIS. NO COMPLAINTS. PT WEIGHED, 177.5 LBS.
[2017-05-11 14:46] VITALS: BP 120/77
--- NOTE | 2017-05-11 14:47 | PN- Att Addend ---
Attending Addendum Attending Brief Note Pt feels okay. He was dialyzed today and he says he always feels weak after dialysis. His sugar in the morning was very high at 484 and his Levemir was increased to 6 units twice a day. It's better now at 254. He still coughing albeit it's better. On exam he is afebrile, breathing at 16-18, pressure is 130 /70, pulse of 76 Lungs have decreased breath sounds with scattered rhonchi, heart is S1-S2 regular, abdomen is soft and he has a colostomy, no edema. His left upper extremity swelling is much better and he does have multiple scattered ecchymosis. INR is 2.1, white count is 19,000 and platelets are 91,000. I'm unclear as to why the white count is going up. Clinically he appears better and his last chest x-ray actually shows his opacity improving. This is probably the effect of the steroids as he is on a long taper but will need to watch that. He is very adamant about not having blood draws on nondialysis days despite me talking to him at length about the need to follow the white count so will order it for the dialysis day. Will dose his Coumadin at a low dose of 2.5 mg and follow closely.
[2017-05-11 21:00] VITALS: BP 106/62
[2017-05-12 06:00] VITALS: BP 110/50
--- NOTE | 2017-05-12 08:20 | NUR ---
PT CALLING NURSE INTO ROOM FREQUENTLY. "I DONT FEEL WELL". SATURATIONS IN MID 80'S ON RA. PLACED ON 2L. RESPIRATORY IN ROOM TO ADMINISTER BREATHING TREATMENT. LARGE AMOUNT OF HEMOPTYSIS NOTED. DR. HERBERT CALLED. CHEST XRAY ORDERED. PT RHONCHORUS THROUGHOUT LUNG [place]. RR 30. DR HERBERT INTO ASSESS PT. IV SOLUMEDROL AND ROBITUSSIN WITH CODEINE ORDERED. IV ACCESS OBTAINED. SOLUMEDROL ADMINISTERED. SPUTUM SAMPLE SENT. XRAY TO BE CHANGED TO PORTABLE PER .
--- NOTE | 2017-05-12 09:13 | PN- Att Addend ---
Attending Addendum Attending Brief Note Called by the RN that the patient is in respiratory distress and coughing and bringing up sputum. On exam patient is visibly uncomfortable, cannot talk in full sentences, is sitting up and coughing and bringing up junky sputum. He is awake alert oriented, afebrile MAXIMUM TEMPERATURE 99, breathing at 22-26, sats are 92% on 2-3 L, heart rate is 70. Lungs have decreased breath sounds, scattered rhonchi and some coarse crackles that I think are all upper airway sounds, heart is S1-S2 irregular, abdomen is obese with a colostomy and he has bilateral 1-2+ edema. His left upper extremity edema is actually better. This is a 72-year-old fairly complex male he has chronic COPD/chronic respiratory failure on oxygen, A. fib on Coumadin, end-stage renal disease on hemodialysis, diabetes with recent uncontrolled diabetes secondary to steroid, history of ischemic bowel status post surgery now with a colostomy. He has been here now since January awaiting insurance authorization for placement. Around April 24- at he developed an acute bacterial bronchitis/pneumonia evidenced by his cough and sputum, positive chest x-ray and Moraxella in the sputum. He was treated with a course of by mouth Augmentin for about 5 days and got IV steroids which was switched to by mouth prednisone. Between April 25 and now because of ongoing complaints of shortness of breath and wheezing he was started on an extended prednisone taper and today he is on 30 mg a day. Of note his white count has been rising and the been attributed to prednisone while watching it closely. His most recent white count yesterday with labs done at dialysis show a white count of 19,000 and an INR of 2.06. I am concerned that he is developing a new pneumonia now. I've ordered a chest x-ray, sputum culture and ordered IV ceftriaxone and azithromycin empirically to cover for bacterial pathogens. We will also ask respiratory to give him another treatment. I think at this point he needs to be moved back to the teaching service given his rapid deterioration. I also called Dr. Perry to see him as I feel that his complaints all pulmonary in nature. He was just dialyzed yesterday and 4 L were taken out but I did call nephrology just to make sure that he doesn't need any extra dialysis. He was on Lasix some while ago but because he doesn't make any urine this was stopped.
--- NOTE | 2017-05-12 09:55 | PN- Housestaff ---
Subjective Follow-up For: Acute shortness of breath ESRD on HD Afib on Coumadin Subjective: Patient seen and examiend at bedside. He was in moderate respiratory distress. He agreed to getting labs and to be placed on a BiPAP as recommended by Pulm. Review of Systems Constitutional: Reports: fever. Denies: chills. Cardiovascular: Reports: orthopena. Denies: chest pain, palpitations. Respiratory: Reports: cough, hemoptysis, short of breath, sputum production. Gastrointestinal: Denies: abdominal pain, nausea, vomiting. Neurological/Psychological: Denies: headache, numbness, tingling, tremors. Objective Last 24 Hrs of Vital Signs/I&O Vital Signs Date Time Temp Pulse Resp B/P B/P Pulse O2 O2 Flow FiO2 Mean Ox Delivery Rate 05/12 1157 98.9 05/12 1048 101 95 05/12 1041 102.7 05/12 0816 99.7 05/12 0813 94 Nasal 2.0L Cannula 05/12 08 92 Nasal 2.0L Cannula 05/12 0600 98.4 60 18 110/50 92 Room Air 05/12 0000 98 Nasal 2.0L Cannula 05/11 2100 98.2 60 18 106/62 98 Nasal 2.0L Cannula Intake & Output 05/12 1600 05/12 0800 05/12 0000 Intake Total 500 600 Output Total 0 Balance 500 600 Intake, IV 0 Intake, Oral 500 600 Output, Urine 0 Patient 180 lb Weight Weight Standing Scale Measurement Method Physical Exam General Appearance: Alert, Oriented X3, Cooperative, Moderate Distress HEENT: Atraumatic, PERRLA, coughing up blood tinged sputum. Neck: Supple Cardiovascular: Normal S1, Normal S2 Lungs: bilateral ronchi Abdomen: Normal Bowel Sounds, Soft, No Tenderness Neurological: Normal Speech, Strength at 5/5 X4 Ext, Normal Tone, Sensation Intact, Cranial Nerves 3-12 NL, Reflexes 2+ Extremities: bilateral 3+ pitting edema, in lower extremities Current Medications: Current Medications Sig/Johnna Start time Last Medication Dose Route Stop Time Status Admin Acetaminophen 1,000 MG Q8P PRN 05/12 1045 AC 05/12 N/A 1 UNIT IV 1041 Acetaminophen 650 MG .STK-MED ONE 05/12 0811 DC PO 05/12 0812 Acetaminophen 650 MG Q4P PRN 01/31 1100 DC 05/12 PO 0816 Albuterol Sulfate 2 PUF Q4P PRN 02/06 0800 AC 04/24 INH 1005 Albuterol Sulfate 3 ML EVERY 4 HRS/AWAKE 02/05 1600 AC 05/12 INH 1205 Allopurinol 100 MG DAILY 02/20 1818 AC 05/12 PO 0954 Azithromycin 500 MG DAILY 05/12 1000 DC 05/12 Sodium Chloride 250 ML IV 0953 Benzocaine/Menthol 1 LAZARO Q2P PRN 03/31 2215 AC 05/09 PO 0029 Benzonatate 100 MG TID 05/12 1000 AC 05/12 PO 0953 Budesonide/ 2 PUF BID 04/22 1111 AC 05/12 Formoterol Fumarate INH 1004 Calcitriol 0.5 MCG TuThSa PRN 05/11 0813 AC IV Calcium Carbonate 500 MG BID PRN 04/08 1145 AC 05/11 PO 2140 Ceftazidime 1,000 MG 1700 05/12 1700 AC IV Ceftazidime 500 MG IQ8 05/12 1115 DC IV Ceftriaxone Sodium 1,000 MG DAILY 05/12 1000 DC 05/12 IV 0953 Codeine 15 MG ONCE ONE 05/12 0830 DC 05/12 PO 05/12 0831 0835 Colchicine 300 MCG QTHURS 03/09 1000 AC 05/11 PO 1315 Colchicine 300 MCG QSUN 03/05 0700 AC 05/07 PO 0707 Diclofenac Sodium 1 MAI 4 TIMES/DAY 02/05 1400 AC 05/10 TOP 0922 Epoetin Guzman 4,000 UNIT TuThSa PRN 03/04 0745 AC IV Guaifenesin 10 ML Q6P PRN 05/12 1300 AC PO Guaifenesin 10 ML .STK-MED ONE 05/11 1620 DC PO 05/11 1621 Guaifenesin 600 MG Q12 02/16 1000 AC 05/12 PO 0954 Guaifenesin/ 10 ML Q6P PRN 02/22 2130 AC 05/12 Dextromethorphan PO 0747 Insulin Aspart 0 AT BEDTIME 05/05 2200 AC 05/11 SC 2140 Insulin Aspart 0 TIDAC 05/05 0800 AC 05/12 SC 0817 Insulin Detemir 6 UNITS BID 05/11 1000 AC 05/12 SC 0953 Lorazepam 0.5 MG ONE ONE 05/12 1045 DC 05/12 PO 05/12 1046 1041 Methylprednisolone 40 MG Q8 07/07 0828 AC 05/12 IV 0835 Multivitamins 1 TAB DAILY 03/23 1000 AC 05/12 PO 0954 Omeprazole 40 MG DAILY AC 02/12 1200 AC 05/12 PO 0625 Prednisone 10 MG DAILY 05/16 1000 CAN PO 05/19 0959 Prednisone 20 MG DAILY 05/13 1000 CAN PO 05/16 0959 Prednisone 30 MG DAILY 05/10 1000 DC 05/11 PO 05/13 0959 1315 Sodium Chloride 2 SPRAY Q4P PRN 01/31 0430 AC 02/05 CHULA 2133 Trazodone HCl 50 MG AT BEDTIME 01/30 2200 AC 05/11 PO 2140 Vancomycin HCl 1,000 MG ONCE ONE 05/12 1600 AC Sodium Chloride 250 ML IV 05/12 1659 Vancomycin HCl 1,000 MG ONCE ONE 05/12 1115 CAN Sodium Chloride 250 ML IV 05/12 1214 Warfarin Sodium 2.5 MG COUMADIN 1700 ONE 05/11 1700 DC 05/11 PO 05/11 1701 1801 Last 24 Hrs of Lab/Satnam Results Last 24 Hrs of Labs/Mics: Laboratory Tests 05/12/17 1353: Anion Gap 12, Estimated GFR 11 L, BUN/Creatinine Ratio 11.2, CBC w Diff MAN DIFF ORDERED, RBC 4.28 L, MCV 83.6, MCH 26.1 L, RDW 21.6 H, MPV 9.1, Gran % 94.1 H, Lymphocytes % 2.1 L, Monocytes % 3.8, Eosinophils % 0, Basophils % 0 L, Absolute Granulocytes 60.4 H, Segmented Neutrophils 92 H, Absolute Lymphocytes 1.4, Lymphocytes 4 L, Monocytes 4, Absolute Monocytes 2.5 H, Absolute Eosinophils 0, Absolute Basophils 0, Platelet Estimate ADEQUATE, Normochromic RBCs VERIFIED, Polychromasia 1+, Poikilocytosis 1+, Anisocytosis 1+ , Elliptocytes 1+, PUBS MCHC 31.3 L Microbiology 05/12 1140 BLOOD: Blood Culture - RECD 05/12 1107 BLOOD: Blood Culture - RECD 05/12 812 LOWER RESP: Respiratory Culture - RES 05/12 812 LOWER RESP: Gram Stain - RES Orders Fingersticks (last 24 hrs): 261, 409, 70 Assessment/Plan Assessment: # Acute respiratory failure Most likely 2/2 HCAP vs volume overload. Will place him on BiPAP for now and start him on Solumedrol 40mg IV Q8 TRC/Nebs He already received Ceftriaxone and Azithromycin Will broaden coverage with Vanc and Ceftaz F/U CXR, and obtain an ABG as well as CBC F/U with nephrology regarding dialysis F/U LRC, AND send for BC x2 gievn fever of 102F. F/U Pulm recs #[place] fib on Coumadin INR therapeutic todya. Dose coumadin to maintain an INR b/w 2-3 #DM FSG's difficult to control ranging 300-400's. On Levemir 6 units bID nad Novolog SSC #GERD Continue on Priolsec - DVT prophylaxis - On warfarin Code status Full Code Problem List: 1. COPD 2. Cellulitis of leg, excluding foot 3. Diabetes mellitus Pain Ratin Pain Location: n/a Pain Goal: Remain pain free Pain Plan: tyelnol Tomorrow's Labs & Rationales: cbc- WBC; BEP - serum creatinine DVT prophylaxis on warfarin Full code
--- NOTE | 2017-05-12 10:30 | NUR ---
PT CONTINUES TO COMPLAIN OF SEVERE SHORTNESS OF BREATH ASSOCIATED WITH COUGH AND HEMOPTYSIS. PT ALSO FEELS WARM TO TOUCH. RECTAL TEMPERATURE TAKEN-102.7. IV TYLENOL ADMINISTERED. DR. MUNIZ IN TO ASSESS PT FOR SHORTNESS OF BREATH, BIPAP ORDERED AND PLACED. PT CONTINUES TO BE VERY ANXIOUS AND REQUESTING NOT TO BE LEFT ALONE. PATIENT SAFETY MONITOR ORDERED FOR PATIENT'S ANXIETIES. RENAL TO ASSESS PT FOR ? EXTR DIALYSIS TODAY. PT NOTED TO HAVE +3 PITTING EDEMA TO BLE FROM KNEES TO FEET. ONE TIME ORDER OF ATIVAN GIVEN FOR ANXIETY PRIOR TO BIPAP PLACEMENT. SAFETY MONITOR AT BEDSIDE. WILL MONITOR.
--- NOTE | 2017-05-12 10:50 | PN- Nephrology ---
Assessment/Plan Assessment: 1. ESRD: had HD yesterday w 4 liter UF 2. Resp distress: suspect primarily pulm in origin but will repeat UF again today 2. Volume overload: UF today & tomorrow 3. Leukocytosis: likely underlying pneumonia Suggestion: 1. Transfer ICU 2. Isolated UF --> target 3 liter today 3. Repeat HD & UF tomorrow Subjective Subjective: Increased SOB & cough today w hemoptysis No CP IV antibiotics rstarted w bronchodilators; Bipap ordered Objective Vital Signs and I&Os Vital Signs Date Time Temp Pulse Resp B/P B/P Pulse O2 O2 Flow FiO2 Mean Ox Delivery Rate 05/12 1041 102.7 05/12 0816 99.7 05/12 0813 94 Nasal 2.0L Cannula 05/11 2100 98.2 60 18 106/62 98 Nasal 2.0L Cannula 05/11 1612 99 Room Air Room Air 05/11 1600 Room Air 05/11 1446 98.6 77 20 120/77 92 05/11 1219 60 20 126/58 98 05/11 1209 93 Room Air Room Air 05/11 1200 Nasal 2.0L Cannula Intake & Output 05/12 1600 05/12 0400 05/11 1600 05/11 0400 / 1600 05/10 0400 Intake Total 600 720 300 120 120 Output Total 100 150 50 50 Balance 600 620 150 70 70 Intake, Oral 600 720 300 120 120 Output, Stool 100 Output, Urine 100 50 50 50 Patient 177 lb 176 lb Weight Weight Standing Scale Standing Scale Measurement Method Physical Exam General Appearance: severe distress Head: atraumatic, normal appearance Ears, Nose, Throat: normal ENT inspection Neck: R IJ HD cath Respiratory: accessory muscle use, wheezing Cardiovascular: regular rate/rhythm Abdomen: soft, non-tender Extremities: swelling Neurologic/Psychiatric: awake, alert Current Medications: Current Medications Sig/Johnna Start time Last Medication Dose Route Stop Time Status Admin Acetaminophen 1,000 MG Q8P PRN 05/12 1045 AC 05/12 N/A 1 UNIT IV 1041 Acetaminophen 650 MG Q4P PRN 01/31 1100 DC 05/12 PO 0816 Albuterol Sulfate 2 PUF Q4P PRN 02/06 0800 AC 04/24 INH 1005 Albuterol Sulfate 3 ML EVERY 4 HRS/AWAKE 02/05 1600 AC 05/12 INH 0813 Allopurinol 100 MG DAILY 02/20 1818 AC 05/12 PO 0954 Azithromycin 500 MG DAILY 05/12 1000 AC 05/12 Sodium Chloride 250 ML IV 0953 Benzocaine/Menthol 1 LAZARO Q2P PRN 03/31 2215 AC 05/09 PO 0029 Benzonatate 100 MG TID 05/12 1000 AC 05/12 PO 0953 Budesonide/ 2 PUF BID 04/22 1111 AC 05/12 Formoterol Fumarate INH 1004 Calcitriol 0.5 MCG TuThSa PRN 05/11 0813 AC IV Calcium Carbonate 500 MG BID PRN 04/08 1145 AC 05/11 PO 2140 Ceftriaxone Sodium 1,000 MG DAILY 05/12 1000 AC 05/12 IV 0953 Codeine 15 MG ONCE ONE 05/12 0830 DC 05/12 PO 05/12 0831 0835 Colchicine 300 MCG QTHURS 03/09 1000 AC 05/11 PO 1315 Colchicine 300 MCG QSUN 03/05 0700 AC 05/07 PO 0707 Diclofenac Sodium 1 MAI 4 TIMES/DAY 02/05 1400 AC 05/10 TOP 0922 Epoetin Guzman 4,000 UNIT TuThSa PRN 03/04 0745 AC IV Guaifenesin 10 ML .STK-MED ONE 05/11 1620 DC PO 05/11 1621 Guaifenesin 600 MG Q12 02/16 1000 AC 05/12 PO 0954 Guaifenesin/ 10 ML Q6P PRN 02/22 2130 AC 05/12 Dextromethorphan PO 0747 Insulin Aspart 0 AT BEDTIME 05/05 2200 AC 05/11 LA 2140 Insulin Aspart 0 TIDAC 05/05 0800 AC 05/12 LA 0817 Insulin Detemir 6 UNITS BID 05/11 1000 AC 05/12 SC 0953 Lorazepam 0.5 MG ONE ONE 05/12 1045 AC 05/12 PO 05/12 1046 1041 Methylprednisolone 40 MG Q8 05/12 0828 05/12 IV 0835 Multivitamins 1 TAB DAILY 03/23 1000 AC 05/12 PO 0954 Omeprazole 40 MG DAILY AC 02/12 1200 AC 05/12 PO 0625 Prednisone 10 MG DAILY 05/16 1000 CAN PO 05/19 0959 Prednisone 20 MG DAILY 05/13 1000 CAN PO 05/16 0959 Prednisone 30 MG DAILY 05/10 1000 DC 05/11 PO 05/13 0959 1315 Sodium Chloride 2 SPRAY Q4P PRN 01/31 0430 AC 02/05 CHULA 2133 Trazodone HCl 50 MG AT BEDTIME 01/30 2200 AC 05/11 PO 2140 Warfarin Sodium 2.5 MG COUMADIN 1700 ONE 05/11 1700 DC 05/11 PO 05/11 1701 1801 Results Pertinent Lab Results: Laboratory Tests 05/11 05/11 05/11 1115 0746 0745 Chemistry Sodium (137 - 145 mmol/L) 135 L Potassium (3.5 - 5.1 mmol/L) 4.6 Chloride (98 - 107 mmol/L) 98 Carbon Dioxide (22 - 30 mmol/L) 22 Anion Gap (5 - 16) 15 BUN (9 - 20 mg/dL) 18 69 H Creatinine (0.7 - 1.2 mg/dL) 5.5 *H Estimated GFR (>60 ml/min) 10 L BUN/Creatinine Ratio (7 - 25 %) 12.5 Calcium (8.4 - 10.2 mg/dL) 8.7 Phosphorus (2.5 - 4.5 mg/dL) 5.3 H Albumin (3.5 - 5.0 g/dL) 3.6 Coagulation PT (9.4 - 12.5 SEC) 22.6 H INR (0.90 - 1.17) 2.17 H Hematology CBC w Diff MAN DIFF ORDERED WBC (4.8 - 10.8 /CUMM) 19.1 H RBC (4.70 - 6.10 /CUMM) 3.79 L Hgb (14.0 - 18.0 G/DL) 9.9 L Hct (42 - 52 %) 32.0 L MCV (80.0 - 94.0 FL) 84.7 MCH (27.0 - 31.0 PG) 26.2 L RDW (11.5 - 14.5 %) 21.2 H Plt Count (130 - 400 /CUMM) 91 L MPV (7.4 - 10.4 FL) 8.9 Gran % (42.2 - 75.2 %) 89.9 H Lymphocytes % (20.5 - 51.1 %) 3.5 L Monocytes % (1.7 - 9.3 %) 6.5 Eosinophils % (0 - 5 %) 0.1 Basophils % (0.0 - 2.0 %) 0 L Absolute Granulocytes (1.4 - 6.5 /CUMM) 17.2 H Segmented Neutrophils (42.2 - 75.2 %) 86 H Absolute Lymphocytes (1.2 - 3.4 /CUMM) 0.7 L Lymphocytes (20.5 - 51.1 %) 4 L Monocytes (1.7 - 9.3 %) 8 Absolute Monocytes (0.10 - 0.60 /CUMM) 1.2 H Absolute Eosinophils (0.0 - 0.7 /CUMM) 0 Absolute Basophils (0.0 - 0.2 /CUMM) 0 Metamyelocytes (0.0 - 1.0 %) 1 Myelocytes (0 - 0 %) 1 H Platelet Estimate (ADEQUATE) DECREASED Polychromasia 1+ Hypochromic-Microcytic 1+ Poikilocytosis 2+ Anisocytosis 2+ PUBS MCHC (33.0 - 37.0 G/DL) 30.9 L 07/ 07/04 0600 1110 Coagulation PT (9.4 - 12.5 SEC) Cancelled 41.3 H INR (0.90 - 1.17) Cancelled 3.99 H Hematology CBC w Diff Cancelled WBC Cancelled RBC Cancelled Hgb Cancelled Hct Cancelled MCV Cancelled MCH Cancelled RDW Cancelled Plt Count Cancelled MPV Cancelled PUBS MCHC Cancelled Imaging/Other Studies: CXR: LLL density; increased interstitial markings
--- NOTE | 2017-05-12 10:56 | PN- Pulmonary ---
Subjective HPI/Critical Care Issues: pt seen and examined he was seen earlier this admission he is on HD significant pitting edema that has worsened up to the knee significant dyspnea, coughing leukocytosis febrile this am to 102.7 Objective Current Medications: Current Medications Sig/Johnna Start time Last Medication Dose Route Stop Time Status Admin Acetaminophen 1,000 MG Q8P PRN 05/12 1045 AC 05/12 N/A 1 UNIT IV 1041 Acetaminophen 650 MG Q4P PRN 01/31 1100 DC 05/12 PO 0816 Albuterol Sulfate 2 PUF Q4P PRN 02/06 0800 AC 04/24 INH 1005 Albuterol Sulfate 3 ML EVERY 4 HRS/AWAKE 02/05 1600 AC 05/12 INH 0813 Allopurinol 100 MG DAILY 02/20 1818 AC 05/12 PO 0954 Azithromycin 500 MG DAILY 05/12 1000 AC 05/12 Sodium Chloride 250 ML IV 0953 Benzocaine/Menthol 1 LAZARO Q2P PRN 03/31 2215 AC 05/09 PO 0029 Benzonatate 100 MG TID 05/12 1000 AC 05/12 PO 0953 Budesonide/ 2 PUF BID 04/22 1111 AC 05/12 Formoterol Fumarate INH 1004 Calcitriol 0.5 MCG TuThSa PRN 05/11 0813 AC IV Calcium Carbonate 500 MG BID PRN 04/08 1145 AC 05/11 PO 2140 Ceftriaxone Sodium 1,000 MG DAILY 05/12 1000 AC 05/12 IV 0953 Codeine 15 MG ONCE ONE 05/12 0830 DC 05/12 PO 05/12 0831 0835 Colchicine 300 MCG QTHURS 03/09 1000 AC 05/11 PO 1315 Colchicine 300 MCG QSUN 03/05 0700 AC 05/07 PO 0707 Diclofenac Sodium 1 MAI 4 TIMES/DAY 02/05 1400 AC 05/10 TOP 0922 Epoetin Guzman 4,000 UNIT TuThSa PRN 03/04 0745 AC IV Guaifenesin 10 ML .STK-MED ONE 05/11 1620 DC PO 05/11 1621 Guaifenesin 600 MG Q12 02/16 1000 AC 05/12 PO 0954 Guaifenesin/ 10 ML Q6P PRN 02/22 2130 AC 05/12 Dextromethorphan PO 0747 Insulin Aspart 0 AT BEDTIME 05/05 2200 AC 05/11 SC 2140 Insulin Aspart 0 TIDAC 05/05 0800 AC 05/12 SC 0817 Insulin Detemir 6 UNITS BID 05/11 1000 AC 05/12 SC 0953 Lorazepam 0.5 MG ONE ONE 05/12 1045 DC 05/12 PO 05/12 1046 1041 Methylprednisolone 40 MG Q8 05/12 0828 AC 05/12 IV 0835 Multivitamins 1 TAB DAILY 03/23 1000 AC 05/12 PO 0954 Omeprazole 40 MG DAILY AC 02/12 1200 AC 05/12 PO 0625 Prednisone 10 MG DAILY 05/16 1000 CAN PO 05/19 0959 Prednisone 20 MG DAILY 05/13 1000 CAN PO 05/16 0959 Prednisone 30 MG DAILY 05/10 1000 DC 05/11 PO 05/13 0959 1315 Sodium Chloride 2 SPRAY Q4P PRN 01/31 0430 AC 02/05 CHULA 2133 Trazodone HCl 50 MG AT BEDTIME 01/30 2200 AC 05/11 PO 2140 Warfarin Sodium 2.5 MG COUMADIN 1700 ONE 05/11 1700 DC 05/11 PO 05/11 1701 1801 Vital Signs & I&O Last 24 Hrs of Vitals and I&O: Vital Signs Date Time Temp Pulse Resp B/P B/P Pulse O2 O2 Flow FiO2 Mean Ox Delivery Rate 05/12 1048 101 95 05/12 1041 102.7 05/12 0816 99.7 05/12 0813 94 Nasal 2.0L Cannula 05/11 2100 98.2 60 18 106/62 98 Nasal 2.0L Cannula 05/11 1612 99 Room Air Room Air 05/11 1600 Room Air 05/11 1446 98.6 77 20 120/77 92 05/11 1219 60 20 126/58 98 05/11 1209 93 Room Air Room Air 05/11 1200 Nasal 2.0L Cannula Intake & Output 05/12 1600 05/12 0800 05/12 0000 Intake Total 600 Output Total Balance 600 Intake, Oral 600 Exam Other Physical Findings: gen awake, mild to mod distress heent ncat cvs s1, s2 lungs bilateral rhonchi abd obese ext with bilateral pitting edema up to knee Results Last 24 Hrs of Lab Results: Laboratory Tests 05/11/17 1115: Impression/Plan Impression/Plan Impression/Plan: Impression 72 year old man * Acute dyspnea with a differential of infectious, inflammatory or fluid overload etiology * s/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
--- NOTE | 2017-05-12 11:03 | RADIOLOGY REPORT ---
EXAMINATION: XR PORTABLE CHEST CLINICAL INFORMATION: Persistent productive cough. Recent antibiotic treatment for pneumonia COMPARISON: 05/05/17 TECHNIQUE: Portable frontal view of the chest was obtained. FINDINGS: Large caliber dual lumen right-sided vascular catheter tip projects in the right atrium. Power source projects in the left pectoral soft tissues with leads in the region of the right ventricle and coronary sinus. There may be a lead in the region of the right atrium. Evidence of sternotomy. The mediastinum is underpenetrated. Calcified tortuous aorta. Prominent globular cardiac silhouette with obscuration of the border of the left lower mediastinum and left hemidiaphragm. There is no alveolar edema. There is pleural and parenchymal density opacifying the lower quarter of the left hemithorax and there is some density in the medial right lower chest. No dense consolidation in the mid or upper lungs. There is no pneumothorax demonstrated IMPRESSION: Bibasilar pleural-parenchymal opacities. Interval worsening with opacity in the lower quarter of the left hemithorax now present
--- NOTE | 2017-05-12 12:15 | NUR ---
PT TAKEN VIA BED TO ICU ROOM [address] HAIR, PT NEEDS TO BE IN ICU IN ORDER TO RECEIVE DIALYSIS WITH BIPAP IN PLACE. PATIENT SAFETY MONITOR SENT WITH PATIENT.
[2017-05-12 14:02] LABS: ABSOLUTE BASOPHIL COUNT 0 /CUMM (0.0-0.2); ABSOLUTE EOSINOPHIL COUNT 0 /CUMM (0.0-0.7); BASOPHIL % 0 % (0.0-2.0); EOSINOPHIL % 0 % (0-5)
[2017-05-12 14:09] LABS: ABSOLUTE GRANULOCYTE CT 60.4 /CUMM (1.4-6.5); ABSOLUTE LYMPH COUNT 1.4 /CUMM (1.2-3.4); ABSOLUTE MONOCYTE COUNT 2.5 /CUMM (0.10-0.60); GRANULOCYTE % 94.1 % (42.2-75.2); HEMATOCRIT 35.8 % (42-52); MEAN CORPUSCULAR HGB 26.1 PG (27.0-31.0); MEAN CORPUSCULAR HGB CONC 31.3 G/DL (33.0-37.0); MEAN CORPUSCULAR VOLUME 83.6 FL (80.0-94.0); MEAN PLATELET VOLUME 9.1 FL (7.4-10.4); PLATELET COUNT 125 /CUMM (130-400); RBC DISTRIBUTION WIDTH 21.6 % (11.5-14.5); RED BLOOD CELL CT 4.28 /CUMM (4.70-6.10)
[2017-05-12 14:17] LABS: WHITE BLOOD CELL COUNT 64.2 /CUMM (4.8-10.8)
--- NOTE | 2017-05-12 15:11 | Event Note ---
Event Note Event Note: Patient had cardiac arrest shortly after dialysis and ultrafiltration was started. As noted in my note earlier patient was in acute respiratory distress and acute hypoxemic respiratory failure. He got the steroids, he got the intravenous ceftriaxone and azithromycin and he was seen by Dr. Perry who started him on BiPAP and recommended a noncontrast chest CT. He was seen by Dr. Preston and the plan was to bring him to the ICU to dialyze him for the possibility of fluid overload. About an hour into dialysis when only ultrafiltration had been started patient went to cardiac arrest, the initial rhythm was a sinus bradycardia and followed by PEA. Full ACLS protocol was followed for about [address] Perry at the bedside and myself. Patient was pronounced at 2:43 PM. His son who lives in [place] was notified and he is on his way. The cause of is likely hospital-acquired pneumonia with acute hypoxemic respiratory failure as his white count done just before he started dialysis came back at 64,000 and the chest x-ray does show worsening opacities. Of note he was on anticoagulation with an INR of 2 yesterday.
--- NOTE | 2017-05-12 15:37 | NUR ---
AQUATICS COORDINATOR JOSE RAMON AND AQUATICS COORDINATOR ARTEMIO ARRIVED TO CODE 3. PT WAS BAGGED BY AQUATICS COORDINATOR JOSE RAMON WITH 15L O2. ANESTHESIA ARRIVED AND INTUBATED PT WITH 7.5 ETT 23CM AT THE LIP WITH ANESTHESIA GLIDESLOPE. ETT WAS ALSO VERIFIED WITH B/L BREATH SOUNDS AND + COLOR CHANGE VIA CO2 DETECTOR. PT CONTINUED TO BE BAGGED WITH 15L O2. CODE WAS CALLED AT 14:43PM. SEE CODE SHEET.
--- NOTE | 2017-05-12 20:46 | NUR ---
family requesting autopsy Dr Mateo Hernandez aware Dr benítez aware paper work to be filled out and sent to admitting family still in viewing patient
--- NOTE | 2017-05-12 21:30 | NUR ---
[facility]IVEN DISTRIBUTION CALLED
== END 2017-05-12 22:46 | disposition expired | DRG 329 ==
LOC: DELPENDDIS → ERH 19:11 → ER-OR 19:14 → ERH 19:14 → CRI 01-28 09:45 → 1NO 01-28 09:45 → 2NA 01-28 09:45 → CRI 01-28 09:45 → 2NA 02-02 15:25 → EDBEDREQ 03-27 10:02 → ENRESERV 03-27 10:34 → 1NO 03-27 11:01 → ENTRNSPT 03-27 12:49 → CMPTRNSPT 03-27 13:11 → 1NO 03-27 22:00 → ENPENDDIS 03-28 16:32 → 1NO 03-29 08:45 → 2NA 04-01 19:28 → CRI 05-12 18:14
PROVIDERS: Hospitalist; Internal Medicine; Internal Medicine Adolescent Medicine; Internal Medicine Critical Care Medicine; Internal Medicine Nephrology; Nurse Practitioner; Physician Assistant; Radiology Diagnostic Radiology; Student in an Organized Health Care Education/Training Program; ADMIT Surgery
PROC: 0D1L0Z4 Bypass Transverse Colon to Cutaneous, Open Approach (ICD-10-PCS; 2017-01-28)
PROC: 0DTL0ZZ Resection of Transverse Colon, Open Approach (ICD-10-PCS; 2017-01-28)
PROC: 30233K1 Transfusion of Nonautologous Frozen Plasma into Peripheral Vein, Percutaneous Approach (ICD-10-PCS; 2017-01-28)
PROC: 5A1D60Z (ICD-10-PCS; principal; 2017-01-30)
PROC: 03L80ZZ Occlusion of Left Brachial Artery, Open Approach (ICD-10-PCS; 2017-03-27)
PROC: B51WYZZ Fluoroscopy of Dialysis Shunt/Fistula using Other Contrast (ICD-10-PCS; 2017-03-27)
PROC: 5A12012 Performance of Cardiac Output, Single, Manual (ICD-10-PCS; 2017-05-12)
DX: K55.039 Acute (reversible) ischemia of large intestine, extent unspecified (principal); N18.6 End stage renal disease; J95.821 Acute postprocedural respiratory failure; I13.2 Hypertensive heart and chronic kidney disease with heart failure and with stage 5 chronic kidney disease, or end stage renal disease; J18.9 Pneumonia, unspecified organism; E87.2 Acidosis; I42.9 Cardiomyopathy, unspecified; E11.22 Type 2 diabetes mellitus with diabetic chronic kidney disease; I50.22 Chronic systolic (congestive) heart failure; N13.2 Hydronephrosis with renal and ureteral calculous obstruction; N25.81 Secondary hyperparathyroidism of renal origin; T82.7XXA Infection and inflammatory reaction due to other cardiac and vascular devices, implants and grafts, initial encounter; E11.51 Type 2 diabetes mellitus with diabetic peripheral angiopathy without gangrene; K55.9 Vascular disorder of intestine, unspecified; Z99.2 Dependence on renal dialysis; Z79.4 Long term (current) use of insulin; I46.9 Cardiac arrest, cause unspecified; Y95 Nosocomial condition; I48.0 Paroxysmal atrial fibrillation; Z79.01 Long term (current) use of anticoagulants; J44.9 Chronic obstructive pulmonary disease, unspecified; D63.1 Anemia in chronic kidney disease; I25.10 Atherosclerotic heart disease of native coronary artery without angina pectoris; Z95.1 Presence of aortocoronary bypass graft; Z95.810 Presence of automatic (implantable) cardiac defibrillator; E78.5 Hyperlipidemia, unspecified; K21.9 Gastro-esophageal reflux disease without esophagitis; Z87.891 Personal history of nicotine dependence; K55.20 Angiodysplasia of colon without hemorrhage; Z86.010 Personal history of colon polyps; E66.9 Obesity, unspecified; G47.33 Obstructive sleep apnea (adult) (pediatric); Y83.8 Other surgical procedures as the cause of abnormal reaction of the patient, or of later complication, without mention of misadventure at the time of the procedure
CPT/HCPCS: 1NP; 2NAP; CCU; 36415; 73060-LT; 73620-RT; 74176; 82436; 87040; 87045; 87070; 87071; 87086; 88307; 93005; 93010; 94799; 96374; 97110-GO; 97116-GO; 97162-GP; 97165-GO; 97530-GO; J0131; J0456; J0636; J0690; J0696; J0713; J0885; J1170; J1644; J1720; J1815; J2250; J2920; J2930; J3010; J3370; J3490; J7040; J7042; J7512; J7608; P9017; Q9967